=== PATIENT | male | born 1950 | race Caucasian/White ===

== ENCOUNTER 2020-04-02 01:56 | Emergency (ER) | payer MEDICARE, OTHER, SELFPAY ==
--- NOTE | ~2020-04-02 | CT_ITS ---
EXAMINATION: CT abdomen pelvis w con EXAM DATE: 04/02/2020 03:02 INDICATION: Right-sided upper abdominal pain. TECHNIQUE: Spiral CT of the abdomen and pelvis was performed following intravenous injection of 100 m L Omnipaque 350. Axial, coronal and sagittal images were reviewed. The dose-length product (DLP) fo r this examination was 637.68 mGy-cm. The exposure was tailored according to patient size (auto mA e xposure control), and iterative reconstruction (ASIR) was used as additional dose reduction technique . Comparison is made to prior examination from 08/15/2012. FINDINGS: Metallic pacer device with lead over the right side of the abdomen. This was present on lisa or study. The liver, spleen, adrenal glands and pancreas are unremarkable. There are gallstones wit hin an otherwise unremarkable gallbladder. No evidence of obstructive biliary disease. Portal and s plenic veins are patent. Kidneys enhance symmetrically. There is no hydronephrosis. The prostate is unremarkable. The bladder is unremarkable. There is no retroperitoneal or pelvic lymphadenopathy . There is mild to moderate scattered arteriosclerotic disease. Possible identification of an unremarkable appendix. No pericecal inflammation. The stomach and smal l bowel are unremarkable. There is expected amount of colonic stool. No free intraperitoneal gas. The heart is normal in size. There are no pericardial or pleural effusions. The lung bases are un remarkable. There are no osteoblastic or osteolytic lesions identified. IMPRESSION: 1. No acute intra-abdominal findings. 2. Cholelithiasis. Reviewed, dictated and finalized at location A.
[2020-04-02 01:59] VITALS: BP 135/75; PULSE 66; RESP 19; TEMP 36.1; O2SAT 100
[2020-04-02 02:19] LABS: Basophils Absolute Auto 0.1 K/mm3 (0.0-0.1); Basophils Percent Auto 0.6 % (0.2-1.2); Eosinophils Absolute Auto 0.1 K/mm3 (0-0.3); Eosinophils Percent Auto 0.9 % (0-4.4); Hematocrit 47.2 % (42.0-52.0); Hemoglobin 16.4 g/dL (14.0-18.0); Immature Granulocyte Absolute 0.03 K/mm3 (0.00-0.031); Immature Granulocyte Percent A 0.3 % (0-0.5); Lymphocytes Absolute Auto 3.79 K/mm3 (0.9-3.2); Lymphocytes Percent Auto 38.2 % (18.3-44.2); Mean Corpuscular HGB Conc 34.7 g/dl (32-36); Mean Corpuscular Hemoglobin 29.4 pg (26-34); Mean Corpuscular Volume 84.6 fl (80-100); Mean Platelet Volume 8.5 fl (7.4-10.4); Monocytes Absolute Auto 0.9 K/mm3 (0.1-0.6); Monocytes Percent Auto 9.3 % (2.6-8.5); Neutrophils Percent Auto 50.7 % (45.5-73.1); Platelet Count Result 265 k/mm3 (150-375); Red Blood Count 5.58 M/mm3 (4.6-6.20); White Blood Count 9.9 K/mm3 (4.5-10.0)
--- NOTE | 2020-04-02 02:23 | ED.ABDPAIN ---
HPI - Abdominal Pain General Chief Complaint: Abdominal Pain Stated Complaint: abd pain Time Seen by Provider: 04/02/20 02:07 Source: patient Mode of arrival: ambulatory Limitations: no limitations History of Present Illness HPI narrative: This patient is a 69 year old male who presents for evaluation of right upper abdominal pain starting 4 hours ago. He states it feels like the worse gas pain of my life . His pain is located right upper abdomen and it occasionally radiates around to his back and across to left abdomen. He tried taking pepto bismal without relief. He denies nausea , vomiting, diarrhea or urinary symptoms. Location: RUQ Severity: severe Pain scale (0-10): 9 Quality: fullness Radiation: R flank Exacerbating factors: nothing Relieving factors: nothing Related Data Home Medications Medication Instructions Recorded Confirmed aspirin 81 mg tablet,delayed 81 mg PO DAILY 08/10/19 12/21/19 release folic acid 1 mg tablet 1 mg PO DAILY 08/10/19 12/21/19 dulaglutide 0.75 mg/0.5 mL 0.75 mg SUB-Q WEEKLY 12/21/19 12/21/19 subcutaneous pen injector etanercept 50 mg/mL (1 mL) 50 mg SUB-Q WEEKLY 12/21/19 12/21/19 subcutaneous syringe Allergies Allergy/AdvReac Type Severity Reaction Status Date / Time atropine Allergy Severe DECREASED Verified 01/21/20 10:53 HR Review of Systems Review of Systems: All systems reviewed & are unremarkable except as noted in HPI and below Constitutional: Constitutional: Denies chills and Denies fever(s) Cardiovascular: Cardiovascular: Denies chest pain Respiratory: Respiratory: Denies cough and Denies dyspnea Gastrointestinal: Gastrointestinal: Reports abdominal pain, Denies constipation, Denies diarrhea and Denies vomiting Genitourinary: Genitourinary: Denies hematuria and Denies urinary frequency Musculoskeletal: Musculoskeletal: Reports back pain [facility] Past Medical History Medical History (Updated 04/02/20 @ 04:01 by Precious Ansari MD) Cardiac pacemaker Diabetes mellitus Essential (primary) hypertension Fusion of spine, cervical region History of cardiac monitoring Infective otitis externa of left ear Kidney stone Mixed hyperlipidemia Surgical History Surgical History H/O heart artery stent Hx of LASIK Hx of LASIK Hx of tonsillectomy Social History Social History Smoking status: Never smoker Alcohol intake: current Gender identity (if verbalized by the patient): Male Exam Narrative: Exam Narrative: Const: General: no acute distress and alert Orientation/consciousness: patient oriented x3 Eyes: EOM: EOMs intact bilaterally Chest: Chest palpation & inspection: normal inspection of the chest Resp: Effort & Inspection: normal respiratory effort and no retractions Auscultation: clear to auscultation bilaterally Cardio: Rate: regular rate Rhythm: regular rhythm Heart sounds: no murmurs GI: GI Palp: Yes Soft to palpation, Yes Tenderness to palpation present (GI) (RUQ, epigastric), No Guarding due to palpation present (GI) and No Rigid due to palpation Back/Spine/Pelvis: Back: no CVA tenderness Skin: General skin exam: normal color Rashes: no rashes Neuro: General: patient oriented x3 and moves all extremities Psych: Mental Status: mental status grossly normal Course Reevaluation(s) Reevaluation #1: PAtient is resting comfortably. I discussed CT shows gallstones. His pain is almost completely resolved. PAin is 1/10. I discussed discharge plan and treatment. Date: 04/02/20 Time: 03:55 Vital Signs Vital signs: Vital Signs Temperature 97 F L 04/02/20 01:59 Pulse Rate 66 04/02/20 01:59 Respiratory Rate 19 04/02/20 01:59 Blood Pressure 135/75 04/02/20 01:59 Pulse Oximetry 100 04/02/20 01:59 Temperature 97 F L 04/02/20 01:59 Pulse Rate 74 04/02/20 04:08 Respiratory R
[2020-04-02 02:27] LABS: Add Urine Microscopic? YES; Appearance Urine Clear (Clear); Bilirubin Urine Negative (Negative); Blood Urine Negative (Negative); Color Urine Colorless (Yellow); Glucose Urine UA 3+ mg/dL (Negative); Ketones Urine Negative (Negative); Leukocyte Esterase Ur Negative LEU/UL (Negative); Nitrate Urine Negative (Negative); Protein Urine Negative (Negative); Urobilinogen Urine Negative mg/dL (<2.0); WBC Urine 0-3 /hpf
[2020-04-02] MEDS: ONDANSETRON INJ 4 MG/2 ML VIAL IV PUSH (02:32)
[2020-04-02] MEDS: MORPHINE SULFATE 4 MG/ML INJ IV PUSH (02:34)
[2020-04-02 02:35] LABS: Alanine Aminotransferase 16 U/L (4-50); Albumin Level 4.3 g/dL (3.5-5.1); Alkaline Phosphatase 82 U/L (38-126); Anion Gap 14.4 mmol/L (7-16); Aspartate Amino Transferase 20 U/L (17-59); Bilirubin,Total 0.5 mg/dL (0.2-1.3); Blood Urea Nitrogen 15 mg/dL (9-20); Calcium 9.1 mg/dL (8.4-10.2); Carbon Dioxide 27 mmol/L (22-30); Chloride 97 mmol/L (98-107); Estimated CRCL calculation 78 ml/min; Estimated Glomerular Filt Rate > 60; Glucose 350 mg/dL (75-110); Lipase 199 U/L (23-300); Potassium 3.4 mmol/L (3.4-5.0); Sodium 135 mmol/L (137-145)
[2020-04-02 02:50] LABS: Specific Grav Ur 1.035 (1.001-1.035)
[2020-04-02] MEDS: SODIUM CHLORIDE 0.9% IV 1,000 ML 999 ML IV CONT (02:50)
[2020-04-02 04:00] VITALS: BP 139/69; PULSE 68; RESP 18; O2SAT 98
[2020-04-02 04:08] VITALS: BP 132/70; PULSE 74; RESP 18; O2SAT 98
== END 2020-04-02 04:09 | disposition home or self-care (01) ==
PROVIDERS: Emergency Provider General Practice; PCP Family Medicine
DX: K80.20 Calculus of gallbladder without cholecystitis without obstruction (principal); E11.65 Type 2 diabetes mellitus with hyperglycemia; Z79.82 Long term (current) use of aspirin; Z95.5 Presence of coronary angioplasty implant and graft; Z95.0 Presence of cardiac pacemaker; I10 Essential (primary) hypertension; E78.2 Mixed hyperlipidemia; Z87.442 Personal history of urinary calculi; Z79.84 Long term (current) use of oral hypoglycemic drugs
CPT/HCPCS: 36415; 74177; 80053; 81001; 83690; 85025; 96361; 96365; 96375; 99284; J0131; J2270; J2405; J7030; Q9967

== ENCOUNTER 2020-04-22 13:08 | Outpatient (CLI) | payer MEDICARE, OTHER, SELFPAY ==
[2020-04-22 13:40] LABS: Alanine Aminotransferase 18 U/L (4-50); Albumin Level 4.1 g/dL (3.5-5.1); Alkaline Phosphatase 73 U/L (38-126); Amylase 45 U/L (30-110); Aspartate Amino Transferase 19 U/L (17-59); Bilirubin,Total 0.4 mg/dL (0.2-1.3); Lipase 181 U/L (23-300)
== END 2020-04-22 13:09 | disposition home or self-care (01) ==
PROVIDERS: PCP Family Medicine; Visit Provider Surgery
DX: K80.20 Calculus of gallbladder without cholecystitis without obstruction (principal)
CPT/HCPCS: 36415; 80076; 82150; 83690; 86850; 86900; 86901

== ENCOUNTER 2020-04-29 00:27 | Outpatient (CLI) | payer MEDICARE, OTHER, SELFPAY ==
[2020-04-29 19:28] LABS: SARS-CoV-2 RNA PCR Negative
== END 2020-04-29 00:28 | disposition home or self-care (01) ==
LOC: ANHCOVIDDT 00:27
PROVIDERS: PCP Family Medicine; Visit Provider Surgery
DX: Z01.812 Encounter for preprocedural laboratory examination (principal); Z20.828 Contact with and (suspected) exposure to other viral communicable diseases
CPT/HCPCS: 87635; C9803; U0003

== ENCOUNTER 2020-05-02 00:53 | Day surgery (SDC) | payer MEDICARE, OTHER, SELFPAY ==
[2020-05-02] VITALS (14 sets, daily range): BP systolic 133–158; BP diastolic 51–72; PULSE 77–95; RESP 10–18; TEMP 30.7–36; O2SAT 97–99
--- NOTE | 2020-05-02 09:11 | WPDANESEPP ---
Anes - Eval Pre Procedure Procedure: Operation Date: 05/02/20 13:30 Proposed Procedures p Laparoscopic Cholecystectomy, Possible Open - Danilo Nguyen DO s Umbilical Hernia Repair - Danilo Nguyen DO Date/Time: 05/02/20 09:11 Pre Op Diagnosis: Symptomatic Cholelithiasis, Umbilical Hernia Patient Data Age: 69 Gender: M Height: 5 ft 7 in Weight: 87 kg Allergies Allergy/AdvReac Type Severity Reaction Status Date / Time atropine Allergy Severe DECREASED Verified 04/20/20 13:49 HR Home Medications Medication Instructions Recorded Confirmed Type aspirin 81 mg tablet,delayed 81 mg PO QAM 08/10/19 04/20/20 History release metoprolol succinate 25 mg 25 mg PO DAILY #90 tablet 08/10/19 04/20/20 Rx tablet,extended release 24 hr dulaglutide 0.75 mg/0.5 mL 0.75 mg SUB-Q WEEKLY 12/21/19 04/20/20 History subcutaneous pen injector etanercept 50 mg/mL (1 mL) 50 mg SUB-Q WEEKLY 12/21/19 04/20/20 History subcutaneous syringe finasteride 5 mg tablet 5 mg PO DAILY #90 tablet 12/21/19 04/20/20 Rx glimepiride 4 mg tablet 4 mg PO BID #180 tablet 12/21/19 04/20/20 Rx omeprazole 40 mg capsule,delayed 40 mg PO DAILY #90 cap 12/21/19 04/20/20 Rx release simvastatin 20 mg tablet 20 mg PO DAILY #90 tablet 12/21/19 04/20/20 Rx tramadol 50 mg tablet 50 mg PO Q6H PRN #28 tablet 01/21/20 04/20/20 Rx empagliflozin 25 mg tablet 25 mg PO DAILY #90 tablet 02/05/20 04/20/20 Rx amlodipine [Norvasc] 2.5 mg PO QAM 04/20/20 04/20/20 History levothyroxine [Synthroid] 100 mcg PO QAM 04/20/20 04/20/20 History potassium chloride 10 meq PO EVERY OTHER DAY 04/20/20 04/20/20 History sitagliptin [Januvia] 100 mg PO QAM 04/20/20 04/20/20 History telmisartan-hydrochlorothiazid 1 tablet PO QAM 04/20/20 04/20/20 History Patient hx anesthesia problems: none Family hx anesthesia problems: none PMFSH Past Medical History Medical History CAD (coronary artery disease) Cardiac pacemaker Cervical radiculopathy Diabetes mellitus Esophageal reflux Essential (primary) hypertension Fusion of spine, cervical region History of cardiac monitoring Hypothyroidism, unspecified Infective otitis externa of left ear Kidney stone Male erectile dysfunction, unspecified Metabolic syndrome Mixed hyperlipidemia Primary generalized (osteo)arthritis Psoriatic arthropathy Symptomatic cholelithiasis Type 2 diabetes mellitus with hyperglycemia Umbilical hernia without mention of obstruction or gangrene Surgical History Surgical History H/O heart artery stent Hx of LASIK Hx of LASIK Hx of tonsillectomy Family History Family History Sibling Acute myocardial infarction Cerebrovascular accident Depression Carcinoma of colon Grandparent Diabetes mellitus Family history of cardiovascular disease Carcinoma of colon, Onset Age: 85 Father Hypertension Family history of cardiovascular disease Acute myocardial infarction, Onset Age: 72 Social History Social History Smoking packs per day: 1.5 Smoking cigarettes per day: 30.0 Years smoked: 11 Smoking pack-years: 16.50 Smoking status: Never smoker Tobacco type: cigarettes Smoking end date: 04/28/83 Alcohol intake: current Alcohol use details: SOCIAL IN PAST Substance use: never Living arrangements: with family Gender identity (if verbalized by the patient): Male Spiritual care concerns: No Exam Day of Procedure 05/02/20 09:11 Patient weight: overweight Neurological: alert and oriented
[2020-05-02] MEDS: LACTATED RINGERS 1,000 ML 30 ML IV CONT ×3 (11:40→13:50)
--- NOTE | 2020-05-02 11:42 | P.PNAN_ITS ---
Anes - Eval Final PreProcedure Day of Procedure 05/02/20 11:42 Patient weight: obese Heart: regular rate and rhythm Lungs: clear to auscultation Airway: Mallampati scale class II Neurological: alert and oriented Last oral intake: >/= 8 hours ASA classification: III Emergent: no Anesthetic plan: proceed Anesthesia type and monitoring: general ETT and standard monitoring Informed Consent: The patient's anesthetic plan and its attendant risks and be nefits were discussed with the patient/family/POA. Questions were solicited and answers provided to the satisfaction of the patient/family/POA.
[2020-05-02] MEDS: ACETAMINOPHEN 500 MG TABLET 1000 MG PO (11:44)
[2020-05-02] MEDS: KETOROLAC 15 MG/ML VIAL (*BKC) IV PUSH (11:44)
--- NOTE | 2020-05-02 11:56 | WPDHPUPDATE1 ---
History and Physical Update Update Date/Time: 05/02/20 11:56 History and Physical has been reviewed, including an updated exam of the patient. There are NO changes in the patient's condition. Risks, benefits, and alternatives have been discussed and questions answered. Patient agrees to proceed with procedure.
[2020-05-02] MEDS: ceFAZolin 2 GM/D5W 50 ML 2 GM/50 ML BAG IVPB (12:02)
[2020-05-02 12:03] LABS: Glucose Point of Care 228 (65-105)
[2020-05-02] MEDS: BUPIVACAINE/EPINEPHRINE 0.5% 30 ML VIAL INFILTRATE (12:26)
--- NOTE | 2020-05-02 13:10 | PM.PROC ---
Procedure Note - Detailed Date of procedure: 05/02/20 Pre-op diagnosis: Symptomatic Cholelithiasis, Umbilical Hernia Post-op diagnosis: same Procedure performed: Laparoscopic Cholecystectomy Umbilical hernia repair Description of procedure: Procedure as well as risks, benefits, and alternatives were discussed with patient. Written consent was obtained and placed in chart prior to procedure. The patient was brought back to surgical suite. Patient was placed in supine position on operating table. Time-out was done to confirm patient and procedure. Patient was then intubated by the anesthesia department. Abdomen was prepped and draped in sterile fashion using chlorhexidine prep. 0.5% bupivacaine with epinephrine was infiltrated at each site of incision. A 2 cm curvilinear incision was made just superior to the umbilicus using a 15 blade scalpel. Electrocautery was used for hemostasis and for dissection around the umbilical hernia. The umbilical stalk was carefully lifted off of the hernia sac using electrocautery. The hernia sac was excised and discarded using electrocautery. The peritoneum was entered through the hernia defect. An 11 millimeter trocar was inserted and cabon dioxied insuflation was used to create a pneumoperitoneum. The camera was inserted and the abdomen was inspected. The patient was placed in reverse Trendelenberg position and rotated slightly to the left. A 5 millimeter incision was made in the epigastric region, and a 5 millimeter trocar was inserted under direct visualization. Two 5 millimeter incisions were made in the right upper quadrant, and two 5 millimeter trocars were inserted under direct visualization. The gallbladder was identified and grasped at the fundus and retracted superiorly. It was then grasped at the infundibulum retracted laterally. Careful dissection around the neck of the gallbladder was performed using blunt dissection with a [place] grasper and hook electrocautery. The cystic duct was identified, and a window was created behind it. The cystic artery was also identified and a window was created behind it. The critical view of safety was identified, visualizing the cystic duct running directly into the neck of the gallbladder, and the cystic artery running directly into the wall of the gallbladder. A 5 millimeter clip gallery host was then used to place 2 clips proximally and 1 clip distally on both the cystic duct and cystic artery. They were then both transected using endoscopic scissors. Once safely away from the rambo hepatitis, the gallbladder was dissected free from the liver bed using hook electrocautery. Hemostasis was achieved along the way. The gallbladder was removed completely and then removed through the Umbilical port. The liver bed was then inspected. Hemostasis appeared adequate, and our clips appeared secure. The area was gently irrigated with sterile saline. No other abnormalities were seen. The patient was flattened out in bed, and 1 final inspection was made around the abdominal cavity. The ports were then removed under direct visualization, the camera was removed, and the pneumoperitoneum was released. The umbilical hernia was repaired using 0 Ethibond [id number] sutures. Total of 3 sutures were placed transversely. The hernia repair was inspected and appeared secure. The umbilical stalk was then reapproximated to the fascia using 3 0 Vicryl simple interrupted suture. The deep dermis was approximated using 3 0 Vicryl simple interrupted suture. The skin of the incisions was approximated using 4-0 Monocryl subcuticular sutures. Exofin glue was applied on top. The patient was then awakened from anesthesia, extubated, and transferred to recovery. Anesthesia: GETA and local (0.5% bupivicaine with epinephrine) Surgeon: Danilo Nguyen DO Estimated blood loss (mL): 10 Complications: No immediate complications Condition: stable Disposition: same day Findings: Ced is a
[2020-05-02 13:20] LABS: Glucose Point of Care 260 (65-105)
--- NOTE | 2020-05-02 13:24 | SUR.PHASEI ---
[id number] DR HUDSON NOTIFIED OF [id number] WILL HAVE PT TREAT WHEN HOME
[2020-05-02] MEDS: ONDANSETRON INJ 4 MG/2 ML VIAL IV PUSH (13:40)
[2020-05-02] MEDS: diphenhydrAMINE HCl INJ 50 MG/ML VIAL 25 MG IV PUSH (13:50)
[2020-05-02] MEDS: SCOPOLAMINE 1.5 MG PATCH TRANSDERM (14:30)
== END 2020-05-02 17:30 | disposition home or self-care (01) ==
PROVIDERS: PCP Family Medicine; Visit Provider Surgery
PROC: 0FT44ZZ Resection of Gallbladder, Percutaneous Endoscopic Approach (ICD-10-PCS; CPT 47562; principal; 2020-05-02 13:30)
PROC: (CPT 47562; 2020-05-02 13:30)
DX: K80.10 Calculus of gallbladder with chronic cholecystitis without obstruction (principal); K42.9 Umbilical hernia without obstruction or gangrene; E11.9 Type 2 diabetes mellitus without complications; I10 Essential (primary) hypertension; Z95.0 Presence of cardiac pacemaker; E78.2 Mixed hyperlipidemia
CPT/HCPCS: 47562; 49585; 88304; A9270; J0330; J0690; J1100; J1170; J1200; J1885; J2250; J2405; J2704; J3010; J7030; J7120

== ENCOUNTER 2020-05-10 21:51 | Emergency (ER) | payer MEDICARE, OTHER, SELFPAY ==
[2020-05-10 22:09] VITALS: BP 120/73; PULSE 96; RESP 16; TEMP 36.2; O2SAT 98
--- NOTE | 2020-05-10 22:47 | ED.GENADULT ---
HPI - General Adult General Chief complaint: Recheck/Abnormal Lab/Rx Stated complaint: post op, abd leaking Time Seen by Provider: 05/10/20 22:41 History of Present Illness HPI narrative: 69 yo male presents with pain and swelling around the umbilicus. He had cholecystectomy and umbilical hernia repair 8 days ago. He has had pain around the umbilicus since that time. Over the past few days it has become redder and more swollen. Today he noted purulent drainage from the wound. No fever or other systemic symptom. Related Data Home Medications Medication Instructions Recorded Confirmed aspirin 81 mg tablet,delayed 81 mg PO QAM 08/10/19 05/02/20 release etanercept 50 mg/mL (1 mL) 50 mg SUB-Q WEEKLY 12/21/19 05/02/20 subcutaneous syringe Januvia 100 mg PO QAM 04/20/20 05/02/20 amlodipine [Norvasc] 2.5 mg PO QAM 04/20/20 05/02/20 levothyroxine [Synthroid] 100 mcg PO QAM 04/20/20 05/02/20 potassium chloride 10 meq PO EVERY OTHER DAY 04/20/20 05/02/20 telmisartan-hydrochlorothiazid 1 tablet PO QAM 04/20/20 05/02/20 Allergies Allergy/AdvReac Type Severity Reaction Status Date / Time atropine Allergy Severe DECREASED Verified 05/10/20 22:12 HR Review of Systems Review of Systems: All systems reviewed & are unremarkable except as noted in HPI and below Constitutional: Constitutional: Denies chills and Denies fever(s) Cardiovascular: Cardiovascular: Denies chest pain Respiratory: Respiratory: Denies dyspnea Gastrointestinal: Gastrointestinal: Denies abdominal pain, Denies nausea and Denies vomiting Neurologic: Denies dizziness and Denies weakness [facility] Past Medical History Medical History CAD (coronary artery disease) Cardiac pacemaker Cervical radiculopathy Diabetes mellitus Esophageal reflux Essential (primary) hypertension Fusion of spine, cervical region History of cardiac monitoring Hypothyroidism, unspecified Infective otitis externa of left ear Kidney stone Male erectile dysfunction, unspecified Metabolic syndrome Mixed hyperlipidemia Primary generalized (osteo)arthritis Psoriatic arthropathy Symptomatic cholelithiasis Type 2 diabetes mellitus with hyperglycemia Umbilical hernia without mention of obstruction or gangrene Surgical History Surgical History H/O heart artery stent Hx of LASIK Hx of LASIK Hx of tonsillectomy Family History Family History Sibling Acute myocardial infarction Cerebrovascular accident Depression Carcinoma of colon Grandparent Diabetes mellitus Family history of cardiovascular disease Carcinoma of colon, Onset Age: 85 Father Hypertension Family history of cardiovascular disease Acute myocardial infarction, Onset Age: 72 Social History Social History Smoking packs per day: 1.5 Smoking cigarettes per day: 30.0 Years smoked: 11 Smoking pack-years: 16.50 Smoking status: Never smoker Tobacco type: cigarettes Smoking end date: 04/28/83 Alcohol intake: current Substance use: never Gender identity (if verbalized by the patient): Male Spiritual care concerns: No Exam Const: General: healthy appearing, no acute distress and alert Orientation/consciousness: patient oriented x3 HENMT: Head: normal to inspection Resp: Effort & Inspection: normal respiratory effort Auscultation: clear to auscultation bilaterally, no rales, no rhonchi and no wheezes Cardio: Jugular venous distension: no JVD Rate: regular rate Rhythm: regular rhythm GI: Inspection: non-distended GI Palp: Yes Soft to palpation and Yes Tenderness to palpation present (GI) (periumbilical) Skin: Other: erythema and induration around the umbilical incision. purulent drainage from wound. Neuro: General: patient oriented x3 and moves all ex
== END 2020-05-11 00:44 | disposition home or self-care (01) ==
PROVIDERS: Emergency Provider Emergency Medicine; PCP Family Medicine
DX: L02.211 Cutaneous abscess of abdominal wall (principal); L76.82 Other postprocedural complications of skin and subcutaneous tissue; Z87.891 Personal history of nicotine dependence; I25.10 Atherosclerotic heart disease of native coronary artery without angina pectoris; E11.9 Type 2 diabetes mellitus without complications; K21.9 Gastro-esophageal reflux disease without esophagitis; I10 Essential (primary) hypertension; E03.9 Hypothyroidism, unspecified; E78.5 Hyperlipidemia, unspecified; M19.90 Unspecified osteoarthritis, unspecified site
CPT/HCPCS: 10160; 87070; 87077; 87186; 87205; 99283; A9270

== ENCOUNTER 2021-02-15 12:54 | Outpatient (CLI) | payer MEDICARE, OTHER, SELFPAY ==
--- NOTE | ~2021-02-15 | XR_ITS ---
XR shoulder RT min 2V DATE: 02/15/2021 13:27 INDICATION: Right shoulder pain. No injury. TECHNIQUE: 4 views COMPARISON: None FINDINGS: There is joint space and spurring at the acromioclavicular joint consistent with degenerati ve change. There is joint space narrowing and spurring at the right glenohumeral joint as well, consistent with osteoarthritis. Diffuse osteopenia. No fracture, dislocation or bone destruction of the right shoulder. No abnormal right shoulder soft t issue calcification. IMPRESSION: Osteoarthritis at the glenohumeral joint Degenerative change of the right acromioclavicular joint Diffuse osteopenia Reviewed, dictated and finalized at location A.
== END 2021-02-15 12:55 | disposition home or self-care (01) ==
LOC: ANHIMG 13:01
PROVIDERS: PCP Family Medicine
DX: M25.511 Pain in right shoulder (principal); M19.011 Primary osteoarthritis, right shoulder; M85.811 Other specified disorders of bone density and structure, right shoulder
CPT/HCPCS: 73030

== ENCOUNTER → 2022-04-18 15:46 | Outpatient (CLI) | payer MEDICARE, OTHER, SELFPAY ==
--- NOTE | ~2022-04-18 | XR_ITS ---
XR shoulder LT min 2V 04/18/2022 16:01 Indication: Left shoulder pain Procedure: 4 views left shoulder Comparison: No prior studies for comparison. Findings: There is severe glenohumeral joint osteoarthritis. Small loose bodies superior to the joint space. No acute fracture or traumatic malalignment. Surrounding osseous structures and soft tissues are unremarkable. Impression: 1: Severe left glenohumeral joint osteoarthritis. Reviewed, dictated and finalized at location B. Impression: 1: Severe left glenohumeral joint osteoarthritis.
== END ==
PROVIDERS: PCP Family Medicine; Visit Provider Family Medicine
DX: M25.512 Pain in left shoulder (principal); M19.012 Primary osteoarthritis, left shoulder
CPT/HCPCS: 73030

== ENCOUNTER 2022-08-30 01:05 | Day surgery (SDC) | payer MEDICARE, OTHER, SELFPAY ==
[2022-08-17 12:39] VITALS: BMI 29.9
[2022-08-30 08:15] VITALS: BP 116/69; PULSE 94; RESP 18; TEMP 36.1; O2SAT 100; BMI 29.9
[2022-08-30] MEDS: LACTATED RINGERS 1,000 ML 150 ML IV CONT (08:28)
[2022-08-30 08:29] LABS: Glucose Point of Care 135 mg/dl (65-105)
--- NOTE | 2022-08-30 08:29 | WPDANESEPPF ---
Anes - Initial Pre Proc Eval Procedure: Operation Date: 08/30/22 09:30 Proposed Procedures p Screening Colonoscopy - Vito Funes MD Date/Time: 08/30/22 08:29 Surgeon: Vito Funes MD Pre Op Diagnosis: Hx of colon polyps Patient Data Age: 72 Gender: M Height: 1.7 m Weight: 86.6 kg Last Vital Signs Temp 97.0 F L 08/30/22 08:15 Pulse 94 08/30/22 08:15 Resp 18 08/30/22 08:15 BP 116/69 08/30/22 08:15 Pulse Ox 100 08/30/22 08:15 O2 Del Method Room Air 08/30/22 08:15 Allergies Allergy/AdvReac Type Severity Reaction Status Date / Time atropine Allergy Severe DECREASED Verified 08/30/22 08:13 HR Home Medications Medication Instructions Recorded Confirmed Type aspirin 81 mg tablet,delayed 81 mg PO QAM 08/10/19 08/17/22 History release (Adult Low Dose Aspirin) etanercept 50 mg/mL (1 mL) 50 mg subcut WEEKLY #13 mL 03/28/21 08/17/22 Rx subcutaneous syringe (Enbrel) empagliflozin 25 mg tablet 25 mg PO DAILY #90 tabs 09/14/21 08/17/22 Rx (Jardiance) amlodipine 2.5 mg tablet (Norvasc) 2.5 mg PO QAM #90 tabs 12/12/21 08/17/22 Rx finasteride 5 mg tablet 5 mg PO DAILY #90 tabs 12/12/21 08/17/22 Rx glimepiride 4 mg tablet (Amaryl) 4 mg PO BID #180 tabs 12/12/21 08/17/22 Rx levothyroxine 100 mcg tablet 100 mcg PO QAM #90 tabs 12/12/21 08/17/22 Rx (Synthroid) omeprazole 40 mg capsule,delayed 40 mg PO DAILY #90 caps 12/12/21 08/17/22 Rx release potassium chloride 10 mEq 10 meq PO EVERY OTHER DAY #90 caps 12/12/21 08/17/22 Rx capsule,extended release telmisartan 40 1 tablet PO QAM #90 tabs 12/12/21 08/17/22 Rx mg-hydrochlorothiazide 12.5 mg tablet dulaglutide 1.5 mg/0.5 mL See Rx Instructions .Route 12/13/21 08/17/22 Rx subcutaneous pen injector .COMPLEX #2 mL (Trulicity) ascorbate calcium (vitamin C) 500 500 mg PO DAILY 01/30/22 08/17/22 History mg tablet metformin 500 mg tablet 500 mg PO DAILY 01/30/22 08/17/22 History multivitamin 1 tablet PO DAILY 01/30/22 08/17/22 History insulin degludec 100 unit/mL 24 unit subcut QHS 04/18/22 08/17/22 History subcutaneous solution (Tresiba U-100 Insulin) metoprolol succinate 25 mg 25 mg PO DAILY #90 tabs 05/22/22 08/17/22 Rx tablet,extended release 24 hr (Toprol XL) sodium,potassium,mag sulfates 17.5 See Rx Instructions PO .COMPLEX 07/17/22 Rx gram-3.13 gram-1.6 gram oral soln #354 mL (Suprep Bowel Prep Kit) atorvastatin 40 mg tablet 40 mg PO DAILY 08/17/22 08/17/22 History cholecalciferol (vitamin D3) 25 25 mcg PO DAILY 08/17/22 08/17/22 History mcg (1,000 unit) tablet (Vitamin D3) vitamin E 400 unit tablet 400 unit PO DAILY 08/17/22 08/17/22 History Patient hx anesthesia problems: none Family hx anesthesia problems: none Results Review: All pre-operative results and documents have been reviewed as part of the pre-operative evaluation. [facility] Past Medical History Medical History Cardiac pacemaker Cervical radiculopathy Diabetes mellitus Esophageal reflux Fusion of spine, cervical region History of cardiac monitoring Hypothyroidism, unspecified Infective otitis externa of left ear Kidney stone Male erectile dysfunction, unspecified Metabolic syndrome Mixed hyperlipidemia Primary generalized (osteo)arthritis Psoriatic arthropathy Symptomatic cholelithiasis Type 2 diabetes mellitus with hyperglycemia Umbilical hernia without mention of obstruction or gangrene Surgical History Surgical History H/O heart artery stent History of laparoscopic cholecystectomy 05/10/20 Hx of LASIK Hx of LASIK Hx of tonsillectomy Family History Family History Sibling Acute myocardial infarction Cerebrovascular accident Depression Carcinoma of colon Grandparent Diabetes mellitus Family history of cardiova
--- NOTE | 2022-08-30 08:52 | PM.HPGS ---
History of Present Illness History of Present Illness Consent: Risks, benefits, and alternatives have been discussed and questions answered. Patient agrees to proceed with procedure. Chief complaint: Hx of colon polyps Narrative: Ced Mccracken is a 72 year old male Presents for screening colonoscopy. Patient reports his current weight appetite and bowel movements are normal. Patient denies abdominal pain. He has had no bleeding. Family history noncontributory. Patient has previous colonoscopy 2017 showed an adenomatous colon polyp. Family history is significant his grandmother had colon cancer. Patient presents today for surveillance colonoscopy. Review of Systems Review of Systems: Review of systems is noncontributory. [facility] Past Medical History Medical History (Updated 08/30/22 @ 08:54 by Vito Funes MD) Cardiac pacemaker Cervical radiculopathy Diabetes mellitus Esophageal reflux Fusion of spine, cervical region History of cardiac monitoring Hypothyroidism, unspecified Infective otitis externa of left ear Kidney stone Male erectile dysfunction, unspecified Metabolic syndrome Mixed hyperlipidemia Primary generalized (osteo)arthritis Psoriatic arthropathy Symptomatic cholelithiasis Type 2 diabetes mellitus with hyperglycemia Umbilical hernia without mention of obstruction or gangrene Surgical History Surgical History H/O heart artery stent History of laparoscopic cholecystectomy 05/10/20 Hx of LASIK Hx of LASIK Hx of tonsillectomy Family History Family History Sibling Acute myocardial infarction Cerebrovascular accident Depression Carcinoma of colon Grandparent Diabetes mellitus Family history of cardiovascular disease Carcinoma of colon, Onset Age: 85 Father Hypertension Family history of cardiovascular disease Acute myocardial infarction, Onset Age: 72 Social History Social History Smoking packs per day: 1.5 Smoking cigarettes per day: 30.0 Years smoked: 11 Smoking pack-years: 16.50 Smoking status: Former smoker Tobacco type: cigarettes Second hand tobacco smoke exposure: Yes Smoking end date: 04/28/83 Alcohol intake: current Alcohol use details: Rarely Substance use: never Substance use type: does not use Living arrangements: with family Gender identity (if verbalized by the patient): Male Spiritual care concerns: No Meds Home Medications and Allergies Home Medications Medication Instructions Recorded Confirmed Type aspirin 81 mg tablet,delayed 81 mg PO QAM 08/10/19 08/17/22 History release (Adult Low Dose Aspirin) etanercept 50 mg/mL (1 mL) 50 mg subcut WEEKLY #13 mL 03/28/21 08/17/22 Rx subcutaneous syringe (Enbrel) empagliflozin 25 mg tablet 25 mg PO DAILY #90 tabs 09/14/21 08/17/22 Rx (Jardiance) amlodipine 2.5 mg tablet (Norvasc) 2.5 mg PO QAM #90 tabs 12/12/21 08/17/22 Rx finasteride 5 mg tablet 5 mg PO DAILY #90 tabs 12/12/21 08/17/22 Rx glimepiride 4 mg tablet (Amaryl) 4 mg PO BID #180 tabs 12/12/21 08/17/22 Rx levothyroxine 100 mcg tablet 100 mcg PO QAM #90 tabs 12/12/21 08/17/22 Rx (Synthroid) omeprazole 40 mg capsule,delayed 40 mg PO DAILY #90 caps 12/12/21 08/17/22 Rx release potassium chloride 10 mEq 10 meq PO EVERY OTHER DAY #90 caps 12/12/21 08/17/22 Rx capsule,extended release telmisartan 40 1 tablet PO QAM #90 tabs 12/12/21 08/17/22 Rx mg-hydrochlorothiazide 12.5 mg tablet dulaglutide 1.5 mg/0.5 mL See Rx Instructions .Route 12/13/21 08/17/22 Rx subcutaneous pen injector .COMPLEX #2 mL (Trulicity) ascorbate calcium (vitamin C) 500 500 mg PO DAILY 01/30/22 08/17/22 History mg tablet metformin 500 mg tablet 500 mg PO DAILY 01/30/22 08/17/22 History multivitamin 1 tablet PO DAILY 01/30/22 08/17/22 History insu
[2022-08-30 09:37] VITALS: BP 116/72; PULSE 81; RESP 15; O2SAT 97
[2022-08-30 09:47] VITALS: BP 117/72; PULSE 74; RESP 25; O2SAT 98
[2022-08-30 09:49] LABS: Glucose Point of Care 118 mg/dl (65-105)
[2022-08-30 09:57] VITALS: BP 136/77; PULSE 75; RESP 20; O2SAT 98
== END 2022-08-30 10:19 | disposition home or self-care (01) ==
PROVIDERS: PCP Family Medicine; Visit Provider Internal Medicine Gastroenterology
PROC: 0DJD8ZZ Inspection of Lower Intestinal Tract, Via Natural or Artificial Opening Endoscopic (ICD-10-PCS; CPT 45378; principal; 2022-08-30 09:30)
DX: Z12.11 Encounter for screening for malignant neoplasm of colon (principal); D12.5 Benign neoplasm of sigmoid colon; K63.5 Polyp of colon; K21.9 Gastro-esophageal reflux disease without esophagitis; E03.9 Hypothyroidism, unspecified; E11.9 Type 2 diabetes mellitus without complications; E78.2 Mixed hyperlipidemia; Z98.1 Arthrodesis status; L40.50 Arthropathic psoriasis, unspecified; Z95.5 Presence of coronary angioplasty implant and graft; Z79.82 Long term (current) use of aspirin; Z79.84 Long term (current) use of oral hypoglycemic drugs; Z79.899 Other long term (current) drug therapy; Z79.4 Long term (current) use of insulin; Z95.0 Presence of cardiac pacemaker; Z87.891 Personal history of nicotine dependence
CPT/HCPCS: 45385; 45381; 82948; 88305; J2704; J7120

== ENCOUNTER 2022-09-06 15:00 | Outpatient (CLI) | payer MEDICARE, OTHER, SELFPAY ==
--- NOTE | ~2022-09-06 | XR_ITS ---
XR knee LT min 4V DATE: 09/06/2022 15:40 INDICATION: Left knee pain TECHNIQUE: 4 views COMPARISON: None FINDINGS: There is mild particular spurring of the patella, minimal periarticular spurring of the lat eral tibial plateau, consistent with mild osteoarthritis. Knee joint spaces are relatively preserved. No fracture or dislocation or joint effusion. No radiopaque intra-articular loose body or chondrocalc inosis. No periosteal reaction or bone destruction. Femoral, popliteal and trifurcation artery calcifications. IMPRESSION: Mild osteoarthritis Reviewed, dictated and finalized at location A. [employer] INSURANCE ADVISOR IMPRESSION: Mild osteoarthritis
--- NOTE | ~2022-09-06 | XR_ITS ---
XR knee RT min 4V DATE: 09/06/2022 15:40 INDICATION: Right knee pain TECHNIQUE: 4 views COMPARISON: None FINDINGS: There is minimal loss of height of the medial compartment joint space. There is minimal per iarticular spurring of the patella, mild hypertrophic change of the lateral tibial spine. There is enthesopathy at the patellar tendon insertions of the patella and anterior tibial tuberosity . No fracture or dislocation or joint effusion. No periosteal reaction or bone destruction. Femoral, popliteal and trifurcation artery calcification. IMPRESSION: Mild osteoarthritis Reviewed, dictated and finalized at location A. CTOR CLIENT IMPRESSION: Mild osteoarthritis
== END 2022-09-06 15:01 | disposition home or self-care (01) ==
PROVIDERS: PCP Family Medicine; Visit Provider Family Medicine
DX: G89.29 Other chronic pain (principal); M25.569 Pain in unspecified knee; M17.0 Bilateral primary osteoarthritis of knee
CPT/HCPCS: 73564

== ENCOUNTER 2022-10-05 09:30 | Outpatient (CLI) | payer MEDICARE, OTHER, SELFPAY ==
[2022-10-05 11:31] LABS: Anion Gap 8 mmol/L (8-16); Blood Urea Nitrogen 12 mg/dL (9-20); Calcium 9.1 mg/dL (8.4-10.2); Carbon Dioxide 31 mmol/L (22-30); Chloride 95 mmol/L (98-107); Estimated Glomerular Filt Rate > 60; Glucose 367 mg/dL (65-110); Potassium 3.8 mmol/L (3.4-5.0); Sodium 134 mmol/L (137-145)
== END 2022-10-05 09:31 | disposition home or self-care (01) ==
LOC: ANHSURGERY 09:35
PROVIDERS: Anesthesiology; PCP Family Medicine; Visit Provider Surgery
DX: Z01.818 Encounter for other preprocedural examination (principal); K63.5 Polyp of colon; E11.65 Type 2 diabetes mellitus with hyperglycemia
CPT/HCPCS: 36415; 80048; 86850; 86900; 86901

== ENCOUNTER 2022-10-16 15:21 | Inpatient (IN) | payer MEDICARE, OTHER, SELFPAY ==
[2022-10-05 09:56] VITALS: BP 144/59; PULSE 73; RESP 16; TEMP 36.6; O2SAT 97; BMI 30.5
--- NOTE | 2022-10-05 10:13 | PC.NURSE ---
Addendum entered by Molly Larson RN 10/05/22 10:39: PATIENT HAS ORAL ANTIBIOTICS DAY PRIOR TO SURGERY, RELAYS UNDERSTANDING. Original Note: Report to the Outpatient Waiting Room, entrance under the green pavilion located off [address], at time _7:30AM on date __10/16/22 . Planned Procedure Time: __9:30AM . Time changes happen often and if your time is changed the preop area will call you the afternoon before. - You and your visitor will be asked to self-screen and do not enter if you have any COVID symptoms. - Only one visitor is requested with a max of two and NO children visitors are allowed at this time. - The patient visitor may be requested to leave or wait in car when not with patient due to distancing restrictions. - A mask is optional within the hospital at this time. Patients may have clear liquids (water, carbonated beverages, clear teas, apple juice) until 3 hours prior to surgery with a maximum of 20 ounces. - No food /CLEAR LIQUIDS- DAY BEFORE SURGERY Take the following medications with a SIP of water the morning of surgery: ___AMLODIPINE, LEVOTHYROXINE, METOPROLOL DO NOT STOP ANY OF YOUR OTHER PRESCRIPTION MEDICATIONS PRIOR TO SURGERY ?EXCEPT THE FOLLOWING Medications to discontinue per physician ____HOLD ALL VITAMINS/SUPPLEMENTS 3 DAYS PRE-OP Date to take last dose___10/12/22 Please no make-up, nail welsh, hairspray, perfume, deodorant, or body powder the day of surgery. No jewelry (including any body piercings) or valuables the day of surgery, leave them at home. Please take a shower or bath the night before, or the morning of, surgery with an antibacterial soap. Wear comfortable, loose fitting clothing. Children are encouraged to wear pajamas. - Jewelry must be removed prior to entering the operating room. Rings and piercings that are not removed may be cut off. - The hospital will not accept responsibility for valuables. - Please leave all valuables, including medications, at home the day of surgery. If you are going home after surgery, a licensed diesel truck driver must drive you home. - NO public transportation without another adult if you receive anesthesia. - We recommend that an adult stay with you for 24 hours following discharge. - We also recommend that you do not drive, make important decision, drink alcoholic beverages, or take any drugs that were not prescribed by your health care provider for at least 24 hours after your discharge time. Follow any additional instructions given to you from your surgeon. ENSURE BUNDLE. HIBICLENS SHOWER DAY BEFORE AND MORNING OF SURGERY If you or anyone in your household have experienced Covid symptoms in the past week, please notify your surgeon or the nurse liaison at the phone number below for possible testing. Telephone instructions given to ___PATIENT and asked if any additional questions and then verbalized understanding. Patient advised to call surgeon office or pre surgery nurse liaison [phone] if any additional questions.
--- NOTE | 2022-10-15 15:28 | WPDANESEPPF ---
Anes - Initial Pre Proc Eval Procedure: Operation Date: 10/16/22 09:30 Proposed Procedures p Laparoscopic Sigmoid Colectomy, Davinci Assisted - Danilo Nguyen DO Date/Time: 10/15/22 15:28 Surgeon: Danilo Nguyen DO Pre Op Diagnosis: Sigmoid polyp Patient Data Age: 72 Gender: M Height: 1.7 m Weight: 88.4 kg Last Vital Signs Temp 36.6 C 10/05/22 09:56 Pulse 73 10/05/22 09:56 Resp 16 10/05/22 09:56 BP 144/59 H 10/05/22 09:56 Pulse Ox 97 10/05/22 09:56 O2 Del Method Room Air 10/05/22 09:56 Allergies Allergy/AdvReac Type Severity Reaction Status Date / Time atropine Allergy Severe DECREASED Verified 10/16/22 15:43 HR Home Medications Medication Instructions Recorded Confirmed Type aspirin 81 mg tablet,delayed 81 mg PO QAM 08/10/19 10/16/22 History release (Adult Low Dose Aspirin) etanercept 50 mg/mL (1 mL) 50 mg subcut WEEKLY #13 mL 03/28/21 10/16/22 Rx subcutaneous syringe (Enbrel) amlodipine 2.5 mg tablet (Norvasc) 2.5 mg PO QAM #90 tabs 12/12/21 10/16/22 Rx finasteride 5 mg tablet 5 mg PO DAILY #90 tabs 12/12/21 10/16/22 Rx glimepiride 4 mg tablet (Amaryl) 4 mg PO BID #180 tabs 12/12/21 10/16/22 Rx levothyroxine 100 mcg tablet 100 mcg PO QAM #90 tabs 12/12/21 10/16/22 Rx (Synthroid) omeprazole 40 mg capsule,delayed 40 mg PO DAILY #90 caps 12/12/21 10/16/22 Rx release potassium chloride 10 mEq 10 meq PO EVERY OTHER DAY #90 caps 12/12/21 10/16/22 Rx capsule,extended release telmisartan 40 1 tablet PO QAM #90 tabs 12/12/21 10/16/22 Rx mg-hydrochlorothiazide 12.5 mg tablet ascorbate calcium (vitamin C) 500 500 mg PO DAILY 01/30/22 10/16/22 History mg tablet metformin 500 mg tablet 500 mg PO QACDINNER 01/30/22 10/16/22 History multivitamin 1 tablet PO DAILY 01/30/22 10/16/22 History insulin degludec 100 unit/mL 24 unit subcut QHS 04/18/22 10/16/22 History subcutaneous solution (Tresiba U-100 Insulin) sodium,potassium,mag sulfates 17.5 See Rx Instructions PO .COMPLEX 07/17/22 10/05/22 Rx gram-3.13 gram-1.6 gram oral soln #354 mL (Suprep Bowel Prep Kit) atorvastatin 40 mg tablet 40 mg PO DAILY 08/17/22 10/16/22 History cholecalciferol (vitamin D3) 25 25 mcg PO DAILY 08/17/22 10/16/22 History mcg (1,000 unit) tablet (Vitamin D3) vitamin E 400 unit tablet 400 unit PO DAILY 08/17/22 10/16/22 History dulaglutide 3 mg/0.5 mL 3 mg subcut WEEKLY 10/05/22 10/16/22 History subcutaneous pen injector (Trulicity) empagliflozin 25 mg tablet 25 mg PO QAM 10/05/22 10/16/22 History (Jardiance) meloxicam 15 mg tablet 15 mg PO DAILY PRN Pain 10/05/22 10/16/22 History metoprolol succinate 25 mg 25 mg PO QAM 10/05/22 10/16/22 History tablet,extended release 24 hr (Toprol XL) Patient hx anesthesia problems: none Family hx anesthesia problems: none Results Review: All pre-operative results and documents have been reviewed as part of the pre-operative evaluation. [facility] Past Medical History Medical History (Updated 10/15/22 @ 15:30 by Misbah Bassett MD) CAD (coronary artery disease) Cardiac pacemaker Cervical radiculopathy Colonic mass Diabetes mellitus Esophageal reflux Essential (primary) hypertension Fusion of spine, cervical region History of cardiac monitoring Hypertension Hypothyroidism, unspecified Infective otitis externa of left ear Kidney stone Male erectile dysfunction, unspecified Metabolic syndrome Mixed hyperlipidemia Obesity XOCHITL (obstructive sleep apnea) Primary generalized (osteo)arthritis Psoriatic arthropathy Symptomatic cholelithiasis TIA (transient ischemic attack) Type 2 diabetes mellitus with hyperglycemia Umbilical hernia without mention of obstruction or gangrene Surgical History Surgical History (Updated 10/15/22 @ 15:30 by Misbah Bassett MD) H/O heart artery stent 3 stents 2009 History of laparoscopic cholecystectomy 05/10/20 Hx of LASIK Hx of LASIK Hx of tonsille
[2022-10-16] VITALS (13 sets, daily range): BP systolic 126–160; BP diastolic 50–77; PULSE 71–96; RESP 12–18; TEMP 35.9–36.7; O2SAT 94–100
[2022-10-16 08:01] LABS: Glucose Point of Care 203 mg/dl (65-105)
[2022-10-16] MEDS: LACTATED RINGERS 1,000 ML 30 ML IV CONT ×2 (08:10→13:55)
[2022-10-16] MEDS: ONDANSETRON INJ 4 MG/2 ML VIAL IV PUSH ×3 (08:20→20:18)
[2022-10-16] MEDS: SCOPOLAMINE 1.5 MG PATCH TRANSDERM (08:21)
[2022-10-16] MEDS: KETOROLAC 15 MG/ML VIAL (*BKC) IV PUSH (08:26)
--- NOTE | 2022-10-16 08:43 | WPDHPUPDATE1 ---
History and Physical Update Update Date/Time: 10/16/22 08:43 History and Physical has been reviewed, including an updated exam of the patient. There are NO changes in the patient's condition. Risks, benefits, and alternatives have been discussed and questions answered. Patient agrees to proceed with procedure.
--- NOTE | 2022-10-16 08:43 | PM.IMHP ---
H&P: HPI History of Present Illness Date/Time: 10/16/22 08:43 Chief Complaint: Sigmoid polyp Narrative: This is a 72-year-old man who presents with a large sigmoid polyp that was found on recent colonoscopy. This was biopsied and showed evidence of a serrated adenoma. It was tattooed and was estimated at a length of 20-25 cm from the anal verge. He now presents for surgical resection. He denies any changes since last seen in the office. Review of Systems Review of Systems: All systems reviewed & are unremarkable except as noted in HPI and below Constitutional: Constitutional: Denies chills, Denies fever(s), Denies headache(s) and Denies weight loss Eyes: Eyes: Denies change in vision ENT: Denies dizziness, Denies headache(s), Denies neck mass and Denies throat swelling Cardiovascular: Cardiovascular: Denies chest pain, Denies lightheadedness and Denies dyspnea Respiratory: Respiratory: Denies cough, Denies dyspnea and Denies wheezing Gastrointestinal: Gastrointestinal: Denies abdominal pain, Denies change in bowel habits, Denies nausea and Denies vomiting Genitourinary: Genitourinary: Denies hematuria and Denies dysuria Musculoskeletal: Musculoskeletal: Reports as per HPI Integumentary/Breasts: Skin/Breast: Reports as per HPI Neurologic: Denies dizziness and Denies headache(s) Allergic/Immunologic: Allergic/Immunologic: Denies throat swelling and Denies wheezing [facility] Past Medical History Medical History (Updated 10/15/22 @ 15:30 by Misbah Bassett MD) CAD (coronary artery disease) Cardiac pacemaker Cervical radiculopathy Colonic mass Diabetes mellitus Esophageal reflux Essential (primary) hypertension Fusion of spine, cervical region History of cardiac monitoring Hypertension Hypothyroidism, unspecified Infective otitis externa of left ear Kidney stone Male erectile dysfunction, unspecified Metabolic syndrome Mixed hyperlipidemia Obesity XOCHITL (obstructive sleep apnea) Primary generalized (osteo)arthritis Psoriatic arthropathy Symptomatic cholelithiasis TIA (transient ischemic attack) Type 2 diabetes mellitus with hyperglycemia Umbilical hernia without mention of obstruction or gangrene Surgical History Surgical History (Updated 10/15/22 @ 15:30 by Misbah Bassett MD) H/O heart artery stent 3 stents 2009 History of laparoscopic cholecystectomy 05/10/20 Hx of LASIK Hx of LASIK Hx of tonsillectomy Family History Family History Sibling Acute myocardial infarction Cerebrovascular accident Depression Carcinoma of colon Grandparent Diabetes mellitus Family history of cardiovascular disease Carcinoma of colon, Onset Age: 85 Father Hypertension Family history of cardiovascular disease Acute myocardial infarction, Onset Age: 72 Social History Social History Smoking packs per day: 1 Smoking cigarettes per day: 20.0 Years smoked: 12 Smoking pack-years: 12.00 Smoking status: Former smoker Tobacco type: cigarettes Second hand tobacco smoke exposure: Yes Smoking end date: 03/02/83 Alcohol intake: current Alcohol use details: Rarely Substance use: never Substance use type: does not use Lack of Transportation: No Lack of Food: Never True Current Housing: I Have Housing Concerned About Future Housing: No Difficulty Paying Gas/Electric Bills: No Difficulty Paying for Meds: No Currently Unemployed: No Education: Master's Degree or Higher Difficulty w/ Childcare or Family Care: No Living arrangements: with family Additional living arrangements comments: DAUGHTER Gender identity (if verbalized by the patient): Male Spiritual care concerns: No Meds Home Medications and Allergies Home Medications Medication Instructions Recorded Confirmed Type aspirin 81 mg tablet,delayed 81 mg PO QAM 08/10/19 10/16/22 History
[2022-10-16] MEDS: ACETAMINOPHEN 500 MG TABLET 1000 MG PO (08:55)
[2022-10-16] MEDS: ceFAZolin 2 GM/D5W 50 ML 2 GM/50 ML BAG IVPB (09:32)
[2022-10-16] MEDS: metroNIDAZOLE 500 MG/ISO 100ML 500 MG/100 ML BAG 100 MG IVPB (09:50)
[2022-10-16] MEDS: BUPIVACAINE/EPINEPHRINE 0.5% 10 ML VIAL 60 ML INFILTRATE (11:41)
[2022-10-16] MEDS: INDOCYANINE GREEN 25 MG VIAL 7.5 MG IV PUSH (12:15)
--- NOTE | 2022-10-16 13:52 | W.PM.PROC2 ---
Procedure Note - Detailed Date of Procedure 10/16/22 Pre-op Diagnosis Sigmoid polyp Post-op Diagnosis Same Procedure Performed Laparoscopic sigmoid colectomy with colorectal anastomosis, da Yolanda assisted Surgeon Danilo Nguyen DO Puppet Maker Lobo Villar MD Anesthesia General and Local (Exparel) Indications This is a 72-year-old man who presented with a recent finding a large sigmoid polyp on colonoscopy. He had undergone screening colonoscopy with Dr. Funes on 08/30/2022 and the large sigmoid polyp was biopsied and tattooed. Pathology showed evidence serrated adenoma. Discussions patient remained about treatment options and decision was made to proceed with robotic assisted laparoscopic sigmoid colectomy. Findings Robotic assisted laparoscopic sigmoid colectomy was performed. Tattoo region was identified on the distal sigmoid colon. Appeared to be adequate proximal colon to perform the resection and anastomosis. A high ligation of the inferior mesenteric artery was performed. A 31 mm EEA stapler was chosen for the anastomosis. Dr. Villar assisted with the procedure by advancing the EEA sizers up the rectum followed by advancing the EEA stapler to the rectal staple line. After completing the anastomosis, he also performed the rigid proctoscopy and anastomotic leak test. No air bubbles were identified leaking when the rectum was insufflated with air. Indocyanine green was also used to confirm adequate perfusion to the proximal colon for anastomosis and rectum. Sigmoid colon was removed and sent to lab for pathology. Description of Procedure Procedure as well as risks, benefits, and alternatives were discussed with the patient. Written consent was obtained and placed in chart prior to procedure. Patient was brought back to surgical suite. He was placed supine on operating table. Time-out was done to confirm patient and procedure. He was then intubated by the anesthesia department. He was then repositioned into a modified lithotomy position. His rectal area was prepped and draped in sterile fashion using Betadine prep and his abdomen was prepped and draped in sterile fashion using chlorhexidine prep. A 8 mm incision was made in the right upper quadrant and a 5 mm Optiview trocar was advanced through the abdominal layers under direct visualization. Once inside the abdominal cavity, carbon dioxide insufflation was used to create a pneumoperitoneum. Camera was inserted and her abdomen was inspected laparoscopically. No immediate abnormalities were identified. The patient was placed in steep Trendelenburg position. A 12 mm incision was made in the right lower quadrant about 2 cm medial to the ASIS, and a 12 mm trocar was inserted under direct visualization. Three more 8 mm incisions were placed and 8 mm ports were placed under direct visualization on an oblique angle going up towards the left upper quadrant. 0.5% bupivacaine with epinephrine was infiltrated around each incision. A careful thorough examination of the abdominal cavity was performed. The omentum was reflected cephalad over the stomach. The cecum and small bowel were reflected out of the pelvis. The robotic arms were then brought up to the patient's bedside in secured to the ports. The robotic camera and instruments were then inserted and then I moved over to the robotic console and took control of the camera and instruments. After carefully inspecting the abdominal cavity, I then lifted the rectosigmoid junction anteriorly to tent up the inferior mesenteric artery pedicle. A medial to lateral dissection was performed using scissors with electrocautery. I scored the peritoneum along the undersurface of the superior hemorrhoidal vessel at the sacral promontory and entered into the avascular space. I carefully dissected within the space to dissect the hypogastric nerves posteriorly and dissect laterally until the left ureter was identified. The ureter was identified and protected in i
[2022-10-16 14:27] LABS: Glucose Point of Care 265 mg/dl (65-105)
--- NOTE | 2022-10-16 15:32 | ADMGEN ---
This patient, Ced Mccracken, was admitted to [facility] Surg Room 327-01. Patient/family oriented to hospital policies and general routines including ID bracelet, bed and alarms, visiting hours, pain management, procedures, bathroom and other care routines, personal items, smoking policy, room service/diet, and visiting hours. Information on how to activate the Rapid Response Team has been discussed. Patient/Family are encouraged to report perceived risks to care and to ask questions if they do not understand what they are told or what they should do.
[2022-10-16] MEDS: LACTATED RINGERS 1,000 ML 100 ML IV CONT (16:01)
[2022-10-16] MEDS: ACETAMINOPHEN 500 MG TABLET PO ×2 (16:44→21:44)
[2022-10-16] MEDS: metFORMIN HCL 500 MG TABLET PO (16:44)
[2022-10-16] MEDS: oxyCODONE HCL (*CRX) 5 MG TAB IR PO (17:24)
[2022-10-16 17:33] LABS: Glucose Point of Care 164 mg/dl (65-105)
[2022-10-16] MEDS: INSULIN GLARGINE (*BKC) 100 UNITS/ML 24 UNITS SUB-Q (20:24)
[2022-10-16 21:07] LABS: Glucose Point of Care 180 mg/dl (65-105)
[2022-10-17] VITALS (7 sets, daily range): BP systolic 124–162; BP diastolic 68–76; PULSE 70–94; RESP 14–16; TEMP 36–36.4; O2SAT 96–99
[2022-10-17] MEDS: LACTATED RINGERS 1,000 ML 100 ML IV CONT ×3 (02:24→20:58)
[2022-10-17] MEDS: ACETAMINOPHEN 500 MG TABLET PO ×4 (04:43→20:43)
[2022-10-17] MEDS: oxyCODONE HCL (*CRX) 5 MG TAB IR PO ×3 (04:47→14:05)
[2022-10-17] MEDS: LEVOTHYROXINE SODIUM 100 MCG TABLET PO (05:34)
--- NOTE | 2022-10-17 08:06 | WPDANESPN ---
Anes - Prog Note Post-Op Date/Time: 10/17/22 08:06 Cardiovascular status: normal Respiratory status: normal Airway patency: baseline Mental status: baseline Post-Op hydration status: normal Vital Signs: Last Vital Signs Temp 36.0 C L 10/17/22 06:00 Pulse 87 10/17/22 06:00 Resp 16 10/17/22 06:00 BP 162/73 H 10/17/22 06:00 Pulse Ox 97 10/17/22 06:00 O2 Del Method Room Air 10/16/22 20:00 O2 Flow Rate 8 10/16/22 14:40 Pain Score (VAS): 3 I/O: Intake & Output 10/16/22 10/17/22 10/17/22 23:59 07:59 15:59 Intake Total 170 1500 Output Total 2050 Balance 170 -550 10/16/22 10/16/22 10/16/22 14:18 16:46 20:23 POC Capillary Glucose 265 H 164 H 180 H Post-procedural complaints: none Patient Feedback: Patient satisfied with anesthetic care.
[2022-10-17 08:15] LABS: Glucose Point of Care 170 mg/dl (65-105)
[2022-10-17 08:16] LABS: Basophils Percent Auto 0.2 % (0.2-1.2); Hematocrit 42.6 % (42.0-52.0); Hemoglobin 14.6 g/dL (14.0-18.0); Immature Granulocyte Absolute 0.14 K/mm3 (0.00-0.031); Immature Granulocyte Percent A 0.7 % (0-0.5); Lymphocytes Absolute Auto 1.67 K/mm3 (0.9-3.2); Lymphocytes Percent Auto 7.9 % (18.3-44.2); Mean Corpuscular HGB Conc 34.3 g/dl (32-36); Mean Corpuscular Hemoglobin 29.4 pg (26-34); Mean Corpuscular Volume 85.9 fl (80-100); Mean Platelet Volume 8.5 fl (7.4-10.4); Monocytes Absolute Auto 1.5 K/mm3 (0.1-0.6); Neutrophils Absolute Auto 17.9 K/mm3 (1.3-6.7); Neutrophils Percent Auto 84.2 % (45.5-73.1); Platelet Count Result 251 k/mm3 (150-375); Red Blood Count 4.96 M/mm3 (4.6-6.20); Red Cell Distribution Width 13.6 % (11.5-14.5); White Blood Count 21.2 K/mm3 (4.5-10.0)
[2022-10-17 08:26] LABS: Anion Gap 5 mmol/L (8-16); Blood Urea Nitrogen 17 mg/dL (9-20); Calcium 8.1 mg/dL (8.4-10.2); Carbon Dioxide 28 mmol/L (22-30); Chloride 99 mmol/L (98-107); Estimated CRCL calculation 77 ml/min; Estimated Glomerular Filt Rate > 60; Glucose 155 mg/dL (65-110); Potassium 3.8 mmol/L (3.4-5.0); Sodium 132 mmol/L (137-145)
[2022-10-17] MEDS: ONDANSETRON INJ 4 MG/2 ML VIAL IV PUSH (08:36)
[2022-10-17] MEDS: METOPROLOL SUCCINATE EXT REL 25 MG TABCR PO (09:42)
[2022-10-17] MEDS: FINASTERIDE 5 MG TABLET PO (09:42)
[2022-10-17] MEDS: PANTOPRAZOLE 40 MG TABLET PO ×2 (09:42→16:57)
[2022-10-17] MEDS: amLODIPine BESYLATE 2.5 MG TABLET PO (09:42)
[2022-10-17] MEDS: ENOXAPARIN 40 MG/0.4 ML SYRINGE SUB-Q (09:42)
[2022-10-17] MEDS: EMPAGLIFLOZIN 25 MG TABLET PO (09:42)
[2022-10-17 11:27] LABS: Glucose Point of Care 329 mg/dl (65-105)
[2022-10-17] MEDS: INSULIN ASPART (*BKC) 100 UNITS/ML SUB-Q (11:45)
[2022-10-17 16:37] LABS: Glucose Point of Care 164 mg/dl (65-105)
--- NOTE | 2022-10-17 16:44 | PM.PNGS ---
Progress Note: A&P Assessment and Plan (1) Sigmoid polyp: Code(s): K63.5 - Polyp of colon Status: Acute Assessment and Plan: Advance to full liquids today Increase activity, await return of bowel function Pathology pending (2) Postoperative urinary retention: Code(s): N99.89 - Other postprocedural complications and disorders of genitourinary system; R33.8 - Other retention of urine Status: Acute Assessment and Plan: Malave replaced this afternoon. Will keep in place for another 1-2 days. (3) Type 2 diabetes mellitus with hyperglycemia: Qualifiers: Diabetes mellitus ramp supervisor insulin use: without ramp supervisor use Qualified Code(s): E11.65 - Type 2 diabetes mellitus with hyperglycemia Code(s): E11.65 - Type 2 diabetes mellitus with hyperglycemia Status: Acute (4) Hypertension: Code(s): I10 - Essential (primary) hypertension Status: Acute (5) XOCHITL (obstructive sleep apnea): Code(s): G47.33 - Obstructive sleep apnea (adult) (pediatric) Status: Acute Subjective Subjective Date/Time Seen: 10/17/22 16:44 Interval history: Stable on POD#1. Malave was removed this AM. He was feeling some spasm and pressure in the suprapubic region later this morning and was not able to urinate much. Bladder scan reveals high post void residual. Malave replaced. No flatus or BM yet. Pain otherwise well controlled. Exam GI: Inspection: incision (intact with glue) GI Palp: Yes Soft to palpation and Yes Tenderness to palpation present (GI) (incsional) Auscultation: Hypoactive bowel sounds present Objective Data Vital Signs Vital Signs: Vital Signs - 24 hr 10/16/22 20:00 10/16/22 22:00 10/17/22 01:06 Temperature 36.2 C L 36.3 C L Pulse Rate 96 94 Respiratory Rate 14 16 Blood Pressure 145/69 H 146/72 H Pulse Oximetry 96 96 Oxygen Delivery Room Air 10/17/22 06:00 10/17/22 09:42 10/17/22 09:06 Temperature 36.0 C L 36.2 C L Pulse Rate 87 70 84 Respiratory Rate 16 16 Blood Pressure 162/73 H 124/70 Pulse Oximetry 97 99 Oxygen Delivery 10/17/22 13:06 Temperature 36.4 C Pulse Rate 76 Respiratory Rate 16 Blood Pressure 145/68 H Pulse Oximetry 98 Oxygen Delivery Intake/Output Intake/Output: Intake & Output 10/14/22 10/15/22 10/16/22 10/17/22 23:59 23:59 23:59 23:59 Intake Total 245 2938 Output Total 190 2250 Balance 55 688 Meds/Results Medications: Active Medications Generic Name Dose Route Start Last Admin Trade Name Freq PRN Reason Stop Dose Admin Acetaminophen 500 mg 10/16/22 16:00 10/17/22 09:42 Acetaminophen 500 Mg Tablet PO 500 mg Q6H MEKA Administration Amlodipine Besylate 2.5 mg 10/17/22 09:00 10/17/22 09:42 Amlodipine Besylate 2.5 Mg Tablet PO 2.5 mg QAM MEKA Administration Dextrose 12.5 gm 10/16/22 15:21 Dextrose 50% 25 Gm/50 Ml Syringe IV PUSH PRN PRN Hypoglycemia Protocol Empagliflozin 25 mg 10/17/22 09:00 10/17/22 09:42 Empagliflozin 25 Mg Tablet PO 25 mg QAM MEKA Administration Enoxaparin Sodium 40 mg 10/17/22 09:00 10/17/22 09:42 Enoxaparin 40 Mg/0.4 Ml Syringe SUB-Q 40 mg DAILY MEKA Administration Finasteride 5 mg 10/17/22 09:00 10/17/22 09:42 Finasteride 5 Mg Tablet PO 5 mg DAILY MEKA Administration Glucagon 1 mg 10/16/22 15:21 Glucagon For Inj 1 Mg Vial IM PRN PRN Hypoglycemia Protocol Glucose 15 gm 10/16/22 15:21 Glucose Oral Gel 15 Gm Of Glucse In 37.5 Gm Tube PO PRN PRN Hypoglycemia Protocol Lactated Ringer's 1,000 mls @ 100 mls/hr 10/16/22 15:21 10/17/22 11:46 Lr - Lactated Ringers Iv IV CONT 100 mls/hr .Q10H MEKA Administration Dextrose 1,000 mls @ 100 mls/hr 10/16/22 15:21 Dextrose 5% 1,000 Ml IVPB PRN PRN Hypoglycemia Protocol Insulin Aspart 3 - 6 units 10/16/22 17:00 10/17/22 11:45 Insulin Aspart (*Bkc) 100 Uni
[2022-10-17] MEDS: metFORMIN HCL 500 MG TABLET PO (16:58)
[2022-10-17] MEDS: GLIMEPIRIDE 2 MG TABLET 4 MG PO (18:52)
[2022-10-17] MEDS: INSULIN GLARGINE (*BKC) 100 UNITS/ML 24 UNITS SUB-Q (20:46)
[2022-10-17 21:14] LABS: Glucose Point of Care 142 mg/dl (65-105)
[2022-10-18] MEDS: oxyCODONE HCL (*CRX) 5 MG TAB IR PO ×2 (01:32→14:57)
[2022-10-18] MEDS: LEVOTHYROXINE SODIUM 100 MCG TABLET PO (05:08)
[2022-10-18] MEDS: ACETAMINOPHEN 500 MG TABLET PO ×4 (05:08→20:47)
[2022-10-18 06:00] VITALS: BP 157/70; PULSE 87; RESP 18; TEMP 36.2; O2SAT 96
[2022-10-18 06:30] LABS: Hematocrit 38.9 % (42.0-52.0); Hemoglobin 13.2 g/dL (14.0-18.0); Mean Corpuscular HGB Conc 33.9 g/dl (32-36); Mean Corpuscular Hemoglobin 29.5 pg (26-34); Mean Corpuscular Volume 86.8 fl (80-100); Mean Platelet Volume 8.4 fl (7.4-10.4); Platelet Count Result 219 k/mm3 (150-375); Red Blood Count 4.48 M/mm3 (4.6-6.20); Red Cell Distribution Width 13.6 % (11.5-14.5); White Blood Count 13.7 K/mm3 (4.5-10.0)
[2022-10-18 06:42] LABS: Anion Gap 5 mmol/L (8-16); Blood Urea Nitrogen 16 mg/dL (9-20); Calcium 7.9 mg/dL (8.4-10.2); Carbon Dioxide 28 mmol/L (22-30); Chloride 99 mmol/L (98-107); Estimated CRCL calculation 87 ml/min; Estimated Glomerular Filt Rate > 60; Glucose 72 mg/dL (65-110); Potassium 3.4 mmol/L (3.4-5.0); Sodium 132 mmol/L (137-145)
[2022-10-18 07:48] LABS: Glucose Point of Care 74 mg/dl (65-105)
[2022-10-18 08:21] VITALS: O2SAT 96
[2022-10-18] MEDS: LACTATED RINGERS 1,000 ML 100 ML IV CONT (08:29)
[2022-10-18] MEDS: TELMISARTAN 40 MG TABLET PO (08:30)
[2022-10-18] MEDS: PANTOPRAZOLE 40 MG TABLET PO ×2 (08:30→17:23)
[2022-10-18] MEDS: FINASTERIDE 5 MG TABLET PO (08:30)
[2022-10-18] MEDS: hydroCHLOROthiazide 12.5 MG CAPSULE PO (08:31)
[2022-10-18] MEDS: GLIMEPIRIDE 2 MG TABLET 4 MG PO ×2 (08:31→17:23)
[2022-10-18] MEDS: amLODIPine BESYLATE 2.5 MG TABLET PO (08:31)
[2022-10-18] MEDS: METOPROLOL SUCCINATE EXT REL 25 MG TABCR PO (08:31)
[2022-10-18] MEDS: ENOXAPARIN 40 MG/0.4 ML SYRINGE SUB-Q (08:32)
[2022-10-18] MEDS: EMPAGLIFLOZIN 25 MG TABLET PO (08:32)
--- NOTE | 2022-10-18 10:02 | PM.PNGS ---
Progress Note: A&P Assessment and Plan (1) Sigmoid polyp: Code(s): K63.5 - Polyp of colon Status: Acute Assessment and Plan: Bowel function returning. Tolerating full liquids. Will advance to a soft diet today. Stop the IV fluids. Pathology pending this morning. (2) Postoperative urinary retention: Code(s): N99.89 - Other postprocedural complications and disorders of genitourinary system; R33.8 - Other retention of urine Status: Acute Assessment and Plan: Post-op urinary retention with Malave catheter replaced yesterday, may try to remove his catheter tomorrow. (3) Type 2 diabetes mellitus with hyperglycemia: Qualifiers: Diabetes mellitus mcfp insulin use: without continuous churn buttermaker use Qualified Code(s): E11.65 - Type 2 diabetes mellitus with hyperglycemia Code(s): E11.65 - Type 2 diabetes mellitus with hyperglycemia Status: Acute (4) Hypertension: Code(s): I10 - Essential (primary) hypertension Status: Acute (5) XOCHITL (obstructive sleep apnea): Code(s): G47.33 - Obstructive sleep apnea (adult) (pediatric) Status: Acute Plan I have discussed the patient's case and plan of care with Dr. Nguyen. Subjective Subjective Date/Time Seen: 10/18/22 10:02 Patient reports: no new complaints, tolerating liquids well, flatus, bowel movement and afebrile Interval history: Patient reports feeling tired this morning, but no acute events overnight. His post-op pain is being controlled with the oxycodone. He had some urinary retention after having his Malave removed yesterday morning and ultimately had a urinary catheter placed in the afternoon. He started passing flatus last night and had one BM this morning. He denies any nausea or vomiting. No other complaints at this time. Review of Systems Review of Systems: All systems reviewed & are unremarkable except as noted in HPI and below Exam Const: General: comfortable, no acute distress and awake Orientation/consciousness: patient oriented x3 GI: Inspection: non-distended and incision (incisions dry and intact) GI Palp: Yes Soft to palpation, Yes Tenderness to palpation present (GI) (incisional) and No Guarding due to palpation present (GI) Auscultation: normal bowel sounds Neuro: General: moves all extremities and no focal motor deficits Extrem: General: no calf tenderness and no edema Psych: Mental Status: mental status grossly normal Insight: Good insight present (Psych) Objective Data Vital Signs Vital Signs: Vital Signs - 24 hr 10/17/22 13:06 10/17/22 17:06 10/17/22 21:42 Temperature 97.6 F 97.3 F L 97.4 F L Pulse Rate 76 79 81 Respiratory Rate 16 16 14 Blood Pressure 145/68 H 153/76 H 140/74 Pulse Oximetry 98 96 96 Oxygen Delivery 10/18/22 06:00 10/18/22 08:21 Temperature 97.1 F L Pulse Rate 87 Respiratory Rate 18 Blood Pressure 157/70 H Pulse Oximetry 96 96 Oxygen Delivery Room Air Intake/Output Intake/Output: Intake & Output 10/15/22 10/16/22 10/17/22 10/18/22 23:59 23:59 23:59 23:59 Intake Total 245 4678 2244 Output Total 190 2850 2000 Balance 55 1828 244 Meds/Results Medications: Active Medications Generic Name Dose Route Start Last Admin Trade Name Freq PRN Reason Stop Dose Admin Acetaminophen 500 mg 10/16/22 16:00 10/18/22 08:30 Acetaminophen 500 Mg Tablet PO 500 mg Q6H MEKA Administration Amlodipine Besylate 2.5 mg 10/17/22 09:00 10/18/22 08:31 Amlodipine Besylate 2.5 Mg Tablet PO 2.5 mg QAM MEKA Administration Dextrose 12.5 gm 10/16/22 15:21 Dextrose 50% 25 Gm/50 Ml Syringe IV PUSH PRN PRN Hypoglycemia Protocol Empagliflozin 25 mg 10/17/22 09:00 10/18/22 08:32 Empagliflozin 25 Mg Tablet PO 25 mg QAM MEKA Administration Enoxaparin Sodium 40 mg 10/17/22 09:00 10/18/22 08:32 Enoxaparin 40 Mg/0.4 Ml Syringe SUB-Q 40 mg DAILY MEKA Administration Finasteride 5 m
[2022-10-18 11:40] LABS: Glucose Point of Care 166 mg/dl (65-105)
[2022-10-18 13:42] VITALS: BP 128/24; PULSE 84; RESP 20; TEMP 36.6; O2SAT 98
[2022-10-18 16:43] LABS: Glucose Point of Care 74 mg/dl (65-105)
[2022-10-18] MEDS: metFORMIN HCL 500 MG TABLET PO (17:23)
[2022-10-18] MEDS: INSULIN GLARGINE (*BKC) 100 UNITS/ML 24 UNITS SUB-Q (20:48)
[2022-10-18 22:00] VITALS: BP 116/97; PULSE 92; RESP 16; TEMP 36.9; O2SAT 97
[2022-10-19 02:57] LABS: Glucose Point of Care 168 mg/dl (65-105)
[2022-10-19] MEDS: LEVOTHYROXINE SODIUM 100 MCG TABLET PO (05:53)
[2022-10-19 06:00] VITALS: BP 150/72; PULSE 81; RESP 16; TEMP 36.5; O2SAT 97
[2022-10-19 07:26] LABS: Hematocrit 37.8 % (42.0-52.0); Hemoglobin 12.9 g/dL (14.0-18.0); Mean Corpuscular HGB Conc 34.1 g/dl (32-36); Mean Corpuscular Hemoglobin 29.1 pg (26-34); Mean Corpuscular Volume 85.1 fl (80-100); Mean Platelet Volume 8.4 fl (7.4-10.4); Platelet Count Result 236 k/mm3 (150-375); Red Blood Count 4.44 M/mm3 (4.6-6.20); Red Cell Distribution Width 13.3 % (11.5-14.5); White Blood Count 11.3 K/mm3 (4.5-10.0)
[2022-10-19 07:43] LABS: Anion Gap 5 mmol/L (8-16); Blood Urea Nitrogen 18 mg/dL (9-20); Calcium 8.5 mg/dL (8.4-10.2); Carbon Dioxide 32 mmol/L (22-30); Chloride 98 mmol/L (98-107); Estimated CRCL calculation 77 ml/min; Estimated Glomerular Filt Rate > 60; Glucose 69 mg/dL (65-110); Potassium 3.7 mmol/L (3.4-5.0); Sodium 135 mmol/L (137-145)
[2022-10-19 07:57] LABS: Glucose Point of Care 75 mg/dl (65-105)
[2022-10-19 09:12] VITALS: PULSE 80
[2022-10-19] MEDS: hydroCHLOROthiazide 12.5 MG CAPSULE PO (09:12)
[2022-10-19] MEDS: GLIMEPIRIDE 2 MG TABLET 4 MG PO ×2 (09:12→16:51)
[2022-10-19] MEDS: METOPROLOL SUCCINATE EXT REL 25 MG TABCR PO (09:12)
[2022-10-19] MEDS: EMPAGLIFLOZIN 25 MG TABLET PO (09:12)
[2022-10-19] MEDS: TELMISARTAN 40 MG TABLET PO (09:12)
[2022-10-19] MEDS: FINASTERIDE 5 MG TABLET PO (09:12)
[2022-10-19] MEDS: ACETAMINOPHEN 500 MG TABLET PO ×2 (09:12→15:15)
[2022-10-19] MEDS: PANTOPRAZOLE 40 MG TABLET PO ×2 (09:12→16:51)
[2022-10-19] MEDS: ENOXAPARIN 40 MG/0.4 ML SYRINGE SUB-Q (09:12)
[2022-10-19] MEDS: amLODIPine BESYLATE 2.5 MG TABLET PO (09:12)
[2022-10-19 11:54] LABS: Glucose Point of Care 174 mg/dl (65-105)
[2022-10-19 14:00] VITALS: BP 133/70; PULSE 86; RESP 18; TEMP 36.9; O2SAT 97
[2022-10-19] MEDS: oxyCODONE HCL (*CRX) 2.5 MG TAB IR PO (15:14)
--- NOTE | 2022-10-19 16:04 | PM.DS ---
DS: Admitting Diagnosis Discharge Date 10/19/2022 Admitting Diagnosis adenoma of sigmoid colon DS: Discharge Diagnosis Discharge Diagnosis (1) Adenomatous polyp of sigmoid colon: Code(s): D12.5 - Benign neoplasm of sigmoid colon Status: Acute (2) Postoperative urinary retention: Code(s): N99.89 - Other postprocedural complications and disorders of genitourinary system; R33.8 - Other retention of urine Status: Acute (3) XOCHITL (obstructive sleep apnea): Code(s): G47.33 - Obstructive sleep apnea (adult) (pediatric) Status: Acute (4) Essential (primary) hypertension: Code(s): I10 - Essential (primary) hypertension Status: Acute (5) Type 2 diabetes mellitus with hyperglycemia: Qualifiers: Diabetes mellitus terminal supervisor insulin use: without terminal supervisor use Qualified Code(s): E11.65 - Type 2 diabetes mellitus with hyperglycemia Code(s): E11.65 - Type 2 diabetes mellitus with hyperglycemia Status: Acute DS: Summary Hospital Course Reason for hospitalization: sigmoid colon polyp Hospital Course: this is a 72-year-old man who presented with a large adenomatous polyp that was identified on recent colonoscopy. He was admitted 10/16/2022 for robotic assisted laparoscopic sigmoid colectomy. Postoperatively he was started on a clear liquid diet and pain was initially controlled with IV and p.o. pain medications. He had a Malave catheter placed at the time of surgery. This was removed on postop day 1, but later on that afternoon he was still urinating minimal amounts and was having high postvoid residuals. Malave catheter was then replaced. He was advanced to a full liquid diet on postoperative day 1. His bowels were moving and he was tolerating the liquid diet. He was remaining hemodynamically stable. On postoperative day 2 his diet was advanced to a soft regular diet. His IV fluids were stopped. He denied any nausea or vomiting and his bowels were continuing to move. Postoperative day 3 his Malave catheter was removed. He was able to urinate later on that day without any difficulty. Pathology came back as a sigmoid adenoma. No other concerning features. He was discharged on postop day 3. Status at Discharge Functional status at discharge: uses cane/walker Overall status at discharge: patient is progressing back to baseline Time Spent with Patient Time attestation: Total time spent providing and/or coordinating discharge services: Time spent: Less than 30 minutes Exam Resp: Effort & Inspection: normal respiratory effort Auscultation: clear to auscultation bilaterally Cardio: Rate: regular rate Rhythm: regular rhythm Heart sounds: S1 normal heart sound present and S2 normal heart sound present GI: Inspection: incision ( Intact with glue, mild bruising around incisions) GI Palp: Yes Soft to palpation and Yes Tenderness to palpation present (GI) ( incisional) Auscultation: normal bowel sounds DS: Data Data Completed and Pending Completed studies during hospitalization: Pending at discharge 10/16/22 12:42 Surgical [PTH] Routine Labs on day of discharge: Labs from last 24 hours 10/19/22 10/19/22 10/19/22 11:36 07:51 07:05 WBC RBC Hgb Hct MCV MCH MCHC RDW Plt Count MPV Sodium 135 L Potassium 3.7 Chloride 98 Carbon Dioxide 32 H Anion Gap 5 L BUN 18 Creatinine 0.70 Estim Creat Clear Calc 77 Estimated GFR > 60 Glucose 69 POC Capillary Glucose 174 H 75 Calcium 8.5 10/19/22 10/18/22 10/18/22 07:05 19:54 16:35 WBC 11.3 H RBC 4.44 L Hgb 12.9 L Hct 37.8 L MCV 85.1 MCH 29.1 MCHC 34.1 RDW 13.3 Plt Count 236 MPV 8.4 Sodium Potassium Chloride Carbon Dioxide Anion Gap BUN Creatinine Estim Creat Clear Calc Estimated GFR Glucose POC Capillary Glucose [address]
[2022-10-19 16:42] LABS: Glucose Point of Care 215 mg/dl (65-105)
[2022-10-19] MEDS: metFORMIN HCL 500 MG TABLET PO (16:51)
[2022-10-19] MEDS: INSULIN ASPART (*BKC) 100 UNITS/ML SUB-Q (16:51)
== END 2022-10-19 18:05 | disposition home or self-care (01) | DRG 331 ==
LOC: ANH3MEDSUR 15:27
PROVIDERS: Nurse Practitioner Family; Admitting Provider Surgery; PCP Family Medicine; Visit Provider Surgery
PROC: 0DTN4ZZ Resection of Sigmoid Colon, Percutaneous Endoscopic Approach (ICD-10-PCS; principal; 2022-10-16 09:30)
DX: D12.5 Benign neoplasm of sigmoid colon (principal); N99.89 Other postprocedural complications and disorders of genitourinary system; R33.8 Other retention of urine; G47.33 Obstructive sleep apnea (adult) (pediatric); I10 Essential (primary) hypertension; E11.65 Type 2 diabetes mellitus with hyperglycemia; I25.10 Atherosclerotic heart disease of native coronary artery without angina pectoris; E78.2 Mixed hyperlipidemia; E03.9 Hypothyroidism, unspecified; M54.12 Radiculopathy, cervical region; K42.9 Umbilical hernia without obstruction or gangrene; M15.0 Primary generalized (osteo)arthritis; Z90.49 Acquired absence of other specified parts of digestive tract; Z95.0 Presence of cardiac pacemaker; Z95.5 Presence of coronary angioplasty implant and graft; Z86.73 Personal history of transient ischemic attack (TIA), and cerebral infarction without residual deficits; Z87.891 Personal history of nicotine dependence
CPT/HCPCS: 36415; 80048; 82948; 85025; 85027; 88309; A9270; C1729; J0330; J0690; J1100; J1170; J1650; J1815; J1885; J2250; J2370; J2405; J2704; J2710; J3010; J7030; J7120

== ENCOUNTER 2023-01-08 11:17 | Emergency (ER) | payer MEDICARE, OTHER, SELFPAY ==
--- NOTE | ~2023-01-08 | XR_ITS ---
EXAMINATION: XR humerus RT DATE: 01/08/2023 12:47 INDICATION: Right arm pain after stretching TECHNIQUE: Internal and externally rotated views of the right humerus were obtained. COMPARISON: Right shoulder radiographs dated 02/15/2021 FINDINGS: Bone alignment is normal. No fracture. Severe osteoarthritis at the right acromioclavicular joint, mi ld to moderate osteoarthritis of the right glenohumeral joint and mild osteoarthritis at the right el bow. Small dystrophic calcifications along the posterior facet of the greater tuberosity consistent w ith the calcific tendinitis involving the teres minor or posterior most infraspinatus tendons. Visual ized portions of the right lung are clear. Again seen is a cardiac pacemaker lead with chronic frayin g and/or fracture of the lead in the region of the right axilla. Soft tissues are unremarkable. IMPRESSION: 1. Degenerative changes as detailed above. No acute osseous abnormality. 2. Cardiac pacemaker lead with chronic sprain/fracture of the lead at the level of the right axilla. Reviewed, dictated and finalized at location A.
[2023-01-08 11:31] VITALS: BP 133/71; PULSE 65; RESP 18; O2SAT 100
--- NOTE | 2023-01-08 13:40 | ED.UPPEXIN ---
HPI - Extremity Injury (Upper) General Chief Complaint: Extremity Injury, Upper Stated Complaint: Arm Injury Time Seen by Provider: 01/08/23 11:58 Source: patient and family Mode of arrival: ambulatory Limitations: no limitations History of Present Illness HPI narrative: 72-year-old with a history of CAD, s/p pacemaker, hypertension, diabetes here with complaints of hours abnormal swelling in his right biceps area. Patient was stretching while he was doing that he felt a pop in his right shoulder. He states his pain is very minimal he is able to move the shoulder without difficulty. MD complaint: injury to: right Other Extremity Injury: Right: arm Other injuries: none Handedness: right Place: home Severity: mild Relieving factors: none Exacerbating factors: none Context: other (was streching) Associated symptoms: denies other symptoms Related Data Home Medications Medication Instructions Recorded Confirmed aspirin 81 mg tablet,delayed 81 mg PO QAM 08/10/19 12/06/22 release (Adult Low Dose Aspirin) ascorbate calcium (vitamin C) 500 500 mg PO DAILY 01/30/22 12/06/22 mg tablet multivitamin 1 tablet PO DAILY 01/30/22 12/06/22 insulin degludec 100 unit/mL 24 unit subcut QHS 04/18/22 12/06/22 subcutaneous solution (Tresiba U-100 Insulin) cholecalciferol (vitamin D3) 25 25 mcg PO DAILY 08/17/22 12/06/22 mcg (1,000 unit) tablet (Vitamin D3) vitamin E 400 unit tablet 400 unit PO DAILY 08/17/22 12/06/22 dulaglutide 3 mg/0.5 mL 3 mg subcut WEEKLY 10/05/22 12/06/22 subcutaneous pen injector (Trulicity) empagliflozin 25 mg tablet 25 mg PO QAM 10/05/22 12/06/22 (Jardiance) metoprolol succinate 25 mg 25 mg PO QAM 10/05/22 12/06/22 tablet,extended release 24 hr (Toprol XL) Allergies Allergy/AdvReac Type Severity Reaction Status Date / Time atropine Allergy Severe DECREASED Verified 01/08/23 11:50 HR Review of Systems Review of Systems: All systems reviewed & are unremarkable except as noted in HPI and below Constitutional: Constitutional: Reports no additional constitutional complaints Eyes: Eyes: Reports no additional eye complaints ENT: Reports system reviewed and no additional complaints, except as documented Cardiovascular: Cardiovascular: Reports no additional cardiovascular complaints Respiratory: Respiratory: Reports no additional respiratory complaints Gastrointestinal: Gastrointestinal: Reports no additional gastrointestinal complaints Musculoskeletal: Musculoskeletal: Reports as per HPI Integumentary/Breasts: Skin/Breast: Reports system reviewed and no additional complaints, except as docu Neurologic: Reports system reviewed and no additional complaints, except as documented PMFSH Past Medical History Medical History CAD (coronary artery disease) Cardiac pacemaker Cervical radiculopathy Colonic mass Diabetes mellitus Esophageal reflux Essential (primary) hypertension Fusion of spine, cervical region History of cardiac monitoring Hypertension Hypothyroidism, unspecified Infective otitis externa of left ear Kidney stone Male erectile dysfunction, unspecified Metabolic syndrome Mixed hyperlipidemia Obesity XOCHITL (obstructive sleep apnea) Primary generalized (osteo)arthritis Psoriatic arthropathy Symptomatic cholelithiasis TIA (transient ischemic attack) Type 2 diabetes mellitus with hyperglycemia Umbilical hernia without mention of obstruction or gangrene Surgical History Surgical History H/O heart artery stent 3 stents 2009 History of laparoscopic cholecystectomy 05/10/20 Hx of LASIK Hx of LASIK Hx of tonsillectomy S/P laparoscopic colectomy laparoscopic sigmoid colectomy with colorectal anastomosis, da Yolanda assisted Status post colon resection Family History Family History Sibling Ac
[2023-01-08 13:45] VITALS: BP 114/71; PULSE 65; RESP 18; O2SAT 100
== END 2023-01-08 13:46 | disposition home or self-care (01) ==
PROVIDERS: Emergency Provider Family Medicine; PCP Family Medicine
DX: S46.211A Strain of muscle, fascia and tendon of other parts of biceps, right arm, initial encounter (principal); I25.10 Atherosclerotic heart disease of native coronary artery without angina pectoris; I10 Essential (primary) hypertension; E11.9 Type 2 diabetes mellitus without complications; E78.2 Mixed hyperlipidemia; E88.81 Metabolic syndrome and other insulin resistance; E03.9 Hypothyroidism, unspecified; L40.50 Arthropathic psoriasis, unspecified; G47.33 Obstructive sleep apnea (adult) (pediatric); K21.9 Gastro-esophageal reflux disease without esophagitis; Z95.0 Presence of cardiac pacemaker; Z95.5 Presence of coronary angioplasty implant and graft; Z86.73 Personal history of transient ischemic attack (TIA), and cerebral infarction without residual deficits; Z87.442 Personal history of urinary calculi; Z87.891 Personal history of nicotine dependence; Z79.82 Long term (current) use of aspirin; Z79.85 Long-term (current) use of injectable non-insulin antidiabetic drugs; Z79.4 Long term (current) use of insulin; Z79.84 Long term (current) use of oral hypoglycemic drugs; X50.9XXA Other and unspecified overexertion or strenuous movements or postures, initial encounter
CPT/HCPCS: 73060; 99283

== ENCOUNTER 2023-05-27 16:06 | Outpatient (CLI) | payer MEDICARE, OTHER, SELFPAY ==
--- NOTE | ~2023-05-27 | XR_ITS ---
XR shoulder RT min 2V 05/27/2023 16:34 Indication: Right shoulder pain Procedure: 2 views right shoulder Comparison: 01/08/2023 Findings: there is moderate-severe polyarticular osteoarthritis of the right acromioclavicular and gl enohumeral joints. No fracture or traumatic malalignment. No significant soft tissue abnormality. No foreign bodies. 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 Reviewed, dictated and finalized at location L. 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
== END 2023-05-27 16:07 | disposition home or self-care (01) ==
PROVIDERS: PCP Family Medicine; Visit Provider Specialist
DX: M19.011 Primary osteoarthritis, right shoulder (principal)
CPT/HCPCS: 73030

== ENCOUNTER 2023-10-18 11:47 | Outpatient (CLI) | payer MEDICARE, OTHER, SELFPAY ==
--- NOTE | ~2023-10-18 | XR_ITS ---
XR lumbar spine min 4V DATE: 10/18/2023 12:14 INDICATION: Chronic low back pain, worsening past 2-3 weeks TECHNIQUE: AP, bilateral oblique, lateral and coned lateral lumbosacral views COMPARISON: None FINDINGS: There is a transitional lumbosacral vertebra which may be a source of chronic back pain. There is multilevel moderate degenerative disc disease of the lumbar spine. No fracture or bone destruction, spondylolysis or spondylolisthesis is evident. The included lower thoracic and lumbar pedicles are intact. The sacroiliac joints are intact, with degenerative change. Battery pack overlies the right side. Surgical clips, right upper quadrant, likely due to cholecystectomy. Prominent abdominal aortic calcification, without evidence of aneurysm, in addition to some bilateral common iliac artery calcification. IMPRESSION: Multilevel moderate degenerative disc disease Reviewed, dictated and finalized at location A. [employer]
== END 2023-10-18 11:48 | disposition home or self-care (01) ==
PROVIDERS: PCP Family Medicine; Visit Provider Family Medicine
DX: M51.36 Other intervertebral disc degeneration, lumbar region (principal); M51.37 Other intervertebral disc degeneration, lumbosacral region; M46.1 Sacroiliitis, not elsewhere classified; G89.29 Other chronic pain; Z90.49 Acquired absence of other specified parts of digestive tract
CPT/HCPCS: 72110

== ENCOUNTER 2023-12-04 00:25 | Day surgery (SDC) | payer MEDICARE, OTHER, SELFPAY ==
[2023-11-25 10:57] VITALS: BMI 29.0
--- NOTE | 2023-12-02 12:38 | SUR.PREOP ---
Patient called regarding upcoming procedure. Reviewed preop instructions, appointment times, and procedure prep.
[2023-12-04 09:39] VITALS: BP 115/68; PULSE 74; RESP 16; TEMP 36.1; O2SAT 98; BMI 28.8
[2023-12-04] MEDS: LACTATED RINGERS 1,000 ML 150 ML IV CONT (10:03)
--- NOTE | 2023-12-04 10:05 | WPDANESEPPF ---
Anes - Initial Pre Proc Eval Procedure: Operation Date: 12/04/23 11:00 Proposed Procedures p Colonoscopy - Aayush Niño MD Date/Time: 12/04/23 10:05 Surgeon: Aayush Niño MD Pre Op Diagnosis: hx colon polyps Patient Data Age: 73 Gender: M Height: 1.7 m Weight: 83.6 kg Last Vital Signs Temp 97.0 F L 12/04/23 09:39 Pulse 74 12/04/23 09:39 Resp 16 12/04/23 09:39 BP 115/68 12/04/23 09:39 Pulse Ox 98 12/04/23 09:39 O2 Del Method Room Air 12/04/23 09:39 Allergies Allergy/AdvReac Type Severity Reaction Status Date / Time atropine Allergy Severe DECREASED Verified 12/04/23 09:46 HR meloxicam AdvReac Mild Dizziness Verified 12/04/23 09:46 Home Medications Medication Instructions Recorded Confirmed Type aspirin 81 mg tablet,delayed 81 mg PO QAM 08/10/19 12/04/23 History release (Adult Low Dose Aspirin) etanercept 50 mg/mL (1 mL) 50 mg subcut WEEKLY #13 mL 03/28/21 12/04/23 Rx subcutaneous syringe (Enbrel) ascorbate calcium (vitamin C) 500 500 mg PO DAILY 01/30/22 12/04/23 History mg tablet multivitamin 1 tablet PO DAILY 01/30/22 12/04/23 History metformin 500 mg tablet,extended 500 mg PO .QDCPM Meal #90 tabs 04/24/23 12/04/23 Rx release 24 hr atorvastatin 40 mg tablet 40 mg PO DAILY #90 tabs 10/17/23 12/04/23 Rx empagliflozin 25 mg tablet 25 mg PO QAM #90 tabs 10/17/23 12/04/23 Rx (Jardiance) glimepiride 4 mg tablet 4 mg PO BID #180 tabs 10/17/23 12/04/23 Rx insulin degludec 200 unit/mL (3 22 unit (0.11 mL) subcut QHS #9 mL 10/17/23 12/04/23 Rx mL) subcutaneous pen (Tresiba FlexTouch U-200 insulin) levothyroxine 100 mcg tablet 100 mcg PO QAM #90 tabs 10/17/23 12/04/23 Rx (Synthroid) metoprolol succinate 25 mg 25 mg PO DAILY #90 tabs 10/17/23 12/04/23 Rx tablet,extended release 24 hr omeprazole 40 mg capsule,delayed 40 mg PO DAILY #90 caps 10/17/23 12/04/23 Rx release potassium chloride 10 mEq 10 meq PO EVERY OTHER DAY #90 caps 10/17/23 12/04/23 Rx capsule,extended release telmisartan 40 1 tablet PO QAM #90 tabs 10/17/23 12/04/23 Rx mg-hydrochlorothiazide 12.5 mg tablet celecoxib 100 mg capsule (Celebrex) 100 mg PO BIDWMEAL #60 caps 11/11/23 12/04/23 Rx alcohol swabs 1 pad topical .COMPLEX #100 ea 11/21/23 12/04/23 Rx dulaglutide 3 mg/0.5 mL 3 mg (0.5 mL) subcut WEEKLY #6 mL 11/21/23 12/04/23 Rx subcutaneous pen injector (Trulicity) finasteride 5 mg tablet 5 mg PO DAILY #90 tabs 11/21/23 12/04/23 Rx lancets 28 gauge (FreeStyle #100 ea 11/21/23 12/04/23 Rx Lancets) pen needle, diabetic 32 gauge x #100 ea 11/21/23 12/04/23 Rx / (BD Lyudmila 2nd Gen Pen Needle) vitamin E 400 unit tablet 400 unit PO BID 11/21/23 12/04/23 History Patient hx anesthesia problems: none Family hx anesthesia problems: none Results Review: All pre-operative results and documents have been reviewed as part of the pre-operative evaluation. [facility] Past Medical History Medical History CAD (coronary artery disease) Cardiac pacemaker Cervical radiculopathy Colonic mass Diabetes mellitus Esophageal reflux Essential (primary) hypertension Fusion of spine, cervical region History of cardiac monitoring Hypertension Hypothyroidism, unspecified Infective otitis externa of left ear Kidney stone Male erectile dysfunction, unspecified Metabolic syndrome Mixed hyperlipidemia Obesity XOCHITL (obstructive sleep apnea) Primary generalized (osteo)arthritis Psoriatic arthropathy Symptomatic cholelithiasis TIA (transient ischemic attack) Type 2 diabetes mellitus with hyperglycemia Umbilical hernia without mention of obstruction or gangrene Surgical History Surgical History H/O heart artery stent 3 stents 2009 History of laparoscopic cholecystectomy 05/10/20 Hx of LASIK Hx of LASIK Hx of tonsillectomy S/P la
[2023-12-04 10:06] LABS: Glucose Point of Care 128 mg/dl (65-105)
--- NOTE | 2023-12-04 10:41 | PM.HPGS ---
History of Present Illness History of Present Illness Consent: Risks, benefits, and alternatives have been discussed and questions answered. Patient agrees to proceed with procedure. Chief complaint: hx colon polyps Narrative: Ced Mccracken is a 73 year old male with large polyp sigmoid that required sigmoidectomy 10/2022 Review of Systems Review of Systems: All systems reviewed & are unremarkable except as noted in HPI and below PMFSH Past Medical History Medical History CAD (coronary artery disease) Cardiac pacemaker Cervical radiculopathy Colonic mass Diabetes mellitus Esophageal reflux Essential (primary) hypertension Fusion of spine, cervical region History of cardiac monitoring Hypertension Hypothyroidism, unspecified Infective otitis externa of left ear Kidney stone Male erectile dysfunction, unspecified Metabolic syndrome Mixed hyperlipidemia Obesity XOCHITL (obstructive sleep apnea) Primary generalized (osteo)arthritis Psoriatic arthropathy Symptomatic cholelithiasis TIA (transient ischemic attack) Type 2 diabetes mellitus with hyperglycemia Umbilical hernia without mention of obstruction or gangrene Surgical History Surgical History H/O heart artery stent 3 stents 2009 History of laparoscopic cholecystectomy 05/10/20 Hx of LASIK Hx of LASIK Hx of tonsillectomy S/P laparoscopic colectomy laparoscopic sigmoid colectomy with colorectal anastomosis, da Yolanda assisted Status post colon resection Family History Family History Sibling Acute myocardial infarction Cerebrovascular accident Depression Carcinoma of colon Grandparent Diabetes mellitus Family history of cardiovascular disease Carcinoma of colon, Onset Age: 85 Father Hypertension Family history of cardiovascular disease Acute myocardial infarction, Onset Age: 72 Social History Social History Smoking packs per day: 1 Smoking cigarettes per day: 20.0 Years smoked: 9 Smoking pack-years: 9.00 Smoking status: Former smoker Tobacco type: cigarettes and pipe Second hand tobacco smoke exposure: Yes Smoking end date: 03/02/83 Alcohol intake: current Drinks per week: 1 Alcohol use details: Rarely Substance use: never Substance use type: does not use Do You Feel Safe in your Home?: Yes Lack of Transportation: No Lack of Food: Never True Current Housing: I Have Housing Concerned About Future Housing: No Difficulty Paying Gas/Electric Bills: No Difficulty Paying for Meds: No Currently Unemployed: No Education: Master's Degree or Higher Difficulty w/ Childcare or Family Care: No Living arrangements: with family Additional living arrangements comments: DAUGHTER Gender identity (if verbalized by the patient): Male Spiritual care concerns: No Meds Home Medications and Allergies Home Medications Medication Instructions Recorded Confirmed Type aspirin 81 mg tablet,delayed 81 mg PO QAM 08/10/19 12/04/23 History release (Adult Low Dose Aspirin) etanercept 50 mg/mL (1 mL) 50 mg subcut WEEKLY #13 mL 03/28/21 12/04/23 Rx subcutaneous syringe (Enbrel) ascorbate calcium (vitamin C) 500 500 mg PO DAILY 01/30/22 12/04/23 History mg tablet multivitamin 1 tablet PO DAILY 01/30/22 12/04/23 History metformin 500 mg tablet,extended 500 mg PO .QDCPM Meal #90 tabs 04/24/23 12/04/23 Rx release 24 hr atorvastatin 40 mg tablet 40 mg PO DAILY #90 tabs 10/17/23 12/04/23 Rx empagliflozin 25 mg tablet 25 mg PO QAM #90 tabs 10/17/23 12/04/23 Rx (Jardiance) glimepiride 4 mg tablet 4 mg PO BID #180 tabs 10/17/23 12/04/23 Rx insulin degludec 200 unit/mL (3 22 unit (0.11 mL) subcut QHS #9 mL 10/17/23 12/04/23 Rx mL) subcutaneous pen (Tresiba FlexTou
[2023-12-04 11:00] VITALS: BP 115/69; PULSE 71; RESP 16; O2SAT 99
[2023-12-04 11:10] VITALS: BP 116/72; PULSE 71; RESP 19; O2SAT 99
[2023-12-04 11:20] VITALS: BP 121/69; PULSE 73; RESP 13; O2SAT 99
[2023-12-04 11:28] LABS: Glucose Point of Care 98 mg/dl (65-105)
== END 2023-12-04 11:30 | disposition home or self-care (01) ==
PROVIDERS: PCP Family Medicine; Visit Provider Internal Medicine Gastroenterology
PROC: 0DJD8ZZ Inspection of Lower Intestinal Tract, Via Natural or Artificial Opening Endoscopic (ICD-10-PCS; CPT 45378; principal; 2023-12-04 11:00)
DX: Z12.11 Encounter for screening for malignant neoplasm of colon (principal); K51.40 Inflammatory polyps of colon without complications; K64.8 Other hemorrhoids; Z90.49 Acquired absence of other specified parts of digestive tract; Z98.0 Intestinal bypass and anastomosis status; I25.10 Atherosclerotic heart disease of native coronary artery without angina pectoris; E11.9 Type 2 diabetes mellitus without complications; I10 Essential (primary) hypertension; K21.9 Gastro-esophageal reflux disease without esophagitis; E03.9 Hypothyroidism, unspecified; E78.2 Mixed hyperlipidemia; L40.50 Arthropathic psoriasis, unspecified; G47.33 Obstructive sleep apnea (adult) (pediatric); Z86.73 Personal history of transient ischemic attack (TIA), and cerebral infarction without residual deficits; Z95.0 Presence of cardiac pacemaker; Z95.5 Presence of coronary angioplasty implant and graft; Z98.1 Arthrodesis status; Z79.82 Long term (current) use of aspirin; Z79.84 Long term (current) use of oral hypoglycemic drugs; Z79.4 Long term (current) use of insulin; Z79.85 Long-term (current) use of injectable non-insulin antidiabetic drugs; Z79.620 Long term (current) use of immunosuppressive biologic; Z87.891 Personal history of nicotine dependence; E66.9 Obesity, unspecified; Z68.28 Body mass index [BMI] 28.0-28.9, adult
CPT/HCPCS: 45385; 82948; 88305; J2704; J7120

== ENCOUNTER 2024-06-22 15:12 | Emergency (ER) | payer MEDICARE, OTHER, SELFPAY ==
[2024-06-22 15:16] VITALS: BP 123/52; PULSE 88; RESP 18; TEMP 36.6; O2SAT 99
--- NOTE | 2024-06-22 15:55 | ED.GENADULT ---
HPI - General Adult General Chief complaint: Unspecified Stated complaint: post op pain & wound black (penile implant) Time Seen by Provider: 06/22/24 15:32 History of Present Illness HPI narrative: patient is a 73-year-old male who presents ER with discoloration of his penis and testicles. He underwent an operation last week to have a circumcision and have a penile pump implanted. He has developed significant bruising of the left groin moving into the penile shaft and into the testicles. His penis feels that by wrecked. No fevers or chills or sweats. He is able to urinate. He does not yet have follow-up with Urology. Related Data Home Medications Medication Instructions Recorded Confirmed aspirin 81 mg tablet,delayed 81 mg PO QAM 08/10/19 04/15/24 release (Adult Low Dose Aspirin) insulin lispro 100 unit/mL 6 unit subcut USEASDIRECTD 03/20/24 04/15/24 subcutaneous pen Allergies Allergy/AdvReac Type Severity Reaction Status Date / Time atropine Allergy Severe DECREASED Verified 04/15/24 12:22 HR meloxicam AdvReac Mild Dizziness Verified 04/15/24 12:22 Review of Systems Constitutional: Constitutional: Reports no additional constitutional complaints Cardiovascular: Cardiovascular: Reports no additional cardiovascular complaints Respiratory: Respiratory: Reports no additional respiratory complaints Genitourinary: Genitourinary: Denies penile discharge, Reports scrotal swelling, Denies testicular pain, Denies urinary frequency, Denies urinary hesitancy and Reports other ( Penis bruising) [facility] Past Medical History Medical History CAD (coronary artery disease) Cardiac pacemaker Cervical radiculopathy Colonic mass Diabetes mellitus Esophageal reflux Essential (primary) hypertension Fusion of spine, cervical region History of cardiac monitoring Hypertension Hypothyroidism, unspecified Infective otitis externa of left ear Kidney stone Male erectile dysfunction, unspecified Metabolic syndrome Mixed hyperlipidemia Obesity XOCHITL (obstructive sleep apnea) Primary generalized (osteo)arthritis Psoriatic arthropathy Symptomatic cholelithiasis TIA (transient ischemic attack) Type 2 diabetes mellitus with hyperglycemia Umbilical hernia without mention of obstruction or gangrene Surgical History Surgical History H/O heart artery stent 3 stents 2009 History of laparoscopic cholecystectomy 05/10/20 Hx of LASIK Hx of LASIK Hx of tonsillectomy S/P laparoscopic colectomy laparoscopic sigmoid colectomy with colorectal anastomosis, da Yolanda assisted S/P lumbar laminectomy (~02/2024) Status post colon resection Family History Family History Sibling Acute myocardial infarction Cerebrovascular accident Depression Carcinoma of colon Grandparent Diabetes mellitus Family history of cardiovascular disease Carcinoma of colon, Onset Age: 85 Father Hypertension Family history of cardiovascular disease Acute myocardial infarction, Onset Age: 72 Social History Social History Smoking packs per day: 1 Smoking cigarettes per day: 20.0 Years smoked: 9 Smoking pack-years: 9.00 Smoking status: Former smoker Tobacco type: cigarettes and pipe Second hand tobacco smoke exposure: Yes Smoking end date: 03/02/83 Alcohol intake: current Drinks per week: 1 Alcohol use details: Rarely Substance use: never Substance use type: does not use Do You Feel Safe in your Home?: Yes Lack of Transportation: No Lack of Food: Never True Current Housing: I Have Housing Concerned About Future Housing: No Difficulty Paying Gas/Electric Bills: No Difficulty Paying for Meds: No Currently Unemployed: No Education: Master's Degree or Higher Difficulty w/ Child
--- NOTE | 2024-06-22 16:10 | WPDURCON ---
Assessment and Plan Assessment and plan (1) Postoperative pain: Code(s): G89.18 - Other acute postprocedural pain Status: Acute (2) Extensive postoperative bruising: Status: Acute Plan I deflated the implant. This relieved some pain. I provided reassurance stent in his life this in a postoperative bruising was normal. There is no signs of infection. They seem satisfied and will be discharged home Urology Consult Note HPI Date Seen: 06/22/24 Primary Care Provider: Maryann Jiménez, Consult Narrative Narrative: Ced Mccracken is a 73 year old male. Who is status post inflatable penile implant on of last week. He he was in the ER yesterday at all no more ill for penile pain and swelling. I spoke to the ER doctor there. He appeared to be having a normal postoperative course and he was sent home in stable condition. He returns to the ER today still complaining of pain and swelling. I spoke with Dr. Posadas who performed the procedure. It was uncomplicated procedure. He was left partially tumescent at the conclusion to provide tamponade. He is able to void. He has had no fevers but his states he has had a temperature at home of 99. There is no drainage or discharge Review of Systems Review of Systems: All systems reviewed & are unremarkable except as noted in HPI and below PMFSH Past Medical History Medical History CAD (coronary artery disease) Cardiac pacemaker Cervical radiculopathy Colonic mass Diabetes mellitus Esophageal reflux Essential (primary) hypertension Fusion of spine, cervical region History of cardiac monitoring Hypertension Hypothyroidism, unspecified Infective otitis externa of left ear Kidney stone Male erectile dysfunction, unspecified Metabolic syndrome Mixed hyperlipidemia Obesity XOCHITL (obstructive sleep apnea) Primary generalized (osteo)arthritis Psoriatic arthropathy Symptomatic cholelithiasis TIA (transient ischemic attack) Type 2 diabetes mellitus with hyperglycemia Umbilical hernia without mention of obstruction or gangrene Surgical History Surgical History H/O heart artery stent 3 stents 2009 History of laparoscopic cholecystectomy 05/10/20 Hx of LASIK Hx of LASIK Hx of tonsillectomy S/P laparoscopic colectomy laparoscopic sigmoid colectomy with colorectal anastomosis, da Yolanda assisted S/P lumbar laminectomy (~02/2024) Status post colon resection Family History Family History Sibling Acute myocardial infarction Cerebrovascular accident Depression Carcinoma of colon Grandparent Diabetes mellitus Family history of cardiovascular disease Carcinoma of colon, Onset Age: 85 Father Hypertension Family history of cardiovascular disease Acute myocardial infarction, Onset Age: 72 Social History Social History Smoking packs per day: 1 Smoking cigarettes per day: 20.0 Years smoked: 9 Smoking pack-years: 9.00 Smoking status: Former smoker Tobacco type: cigarettes and pipe Second hand tobacco smoke exposure: Yes Smoking end date: 03/02/83 Alcohol intake: current Drinks per week: 1 Alcohol use details: Rarely Substance use: never Substance use type: does not use Do You Feel Safe in your Home?: Yes Lack of Transportation: No Lack of Food: Never True Current Housing: I Have Housing Concerned About Future Housing: No Difficulty Paying Gas/Electric Bills: No Difficulty Paying for Meds: No Currently Unemployed: No Education: Master's Degree or Higher Difficulty w/ Childcare or Family Care: No Living arrangements: with family Additional living arrangements comments: DAUGHTER Gender identity (if verbalized by the patient): Male Spiritual care concerns: N
[2024-06-22 16:32] VITALS: BP 135/70; PULSE 84; RESP 16; TEMP 36.4; O2SAT 99
== END 2024-06-22 16:35 | disposition home or self-care (01) ==
LOC: ANHED 16:27
PROVIDERS: Emergency Provider Emergency Medicine; PCP Family Medicine
DX: G89.18 Other acute postprocedural pain (principal); S30.21XA Contusion of penis, initial encounter; S30.22XA Contusion of scrotum and testes, initial encounter; I25.10 Atherosclerotic heart disease of native coronary artery without angina pectoris; Z95.0 Presence of cardiac pacemaker; E11.9 Type 2 diabetes mellitus without complications; K21.9 Gastro-esophageal reflux disease without esophagitis; I10 Essential (primary) hypertension; M19.90 Unspecified osteoarthritis, unspecified site; Z79.4 Long term (current) use of insulin; X58.XXXA Exposure to other specified factors, initial encounter
CPT/HCPCS: 99282

== ENCOUNTER 2024-10-20 13:58 | Outpatient (CLI) | payer MEDICARE, OTHER, SELFPAY ==
--- NOTE | ~2024-10-20 | CT_ITS ---
Non-contrast Head CT History: Memory changes Technique: Axial non-contrast imaging of the brain was performed. Dose reduction technique was used on this scan by utilizing automated exposure control and iterative reconstruction technique. The dose -length product (DLP) was 599.57 mGy-cm. Findings: There is no evidence of intracranial hemorrhage, mass lesion, or acute infarct. Brain par enchyma appears normal. The ventricles and subarachnoid spaces are normal in size. The calvarium ap pears normal. The visualized paranasal sinuses and mastoid air cells are clear. Impression: No significant abnormality seen. Reviewed, dictated and finalized at location . [facility] [employer] Impression: No significant abnormality seen.
== END 2024-10-20 13:59 | disposition home or self-care (01) ==
LOC: MICIMG 13:58
PROVIDERS: PCP Family Medicine; Visit Provider Family Medicine
DX: R41.3 Other amnesia (principal)
CPT/HCPCS: 70450

== ENCOUNTER 2024-11-16 00:09 | Day surgery (SDC) | payer MEDICARE, OTHER, SELFPAY ==
--- OUTSIDE RECORDS SUMMARY | 2024-11-12 00:11 | XMS_ITS | Encounter Summary ---
Author Organization [facility] Healthcare Address [address] [place] [address] Care Team Providers Care Hardening Machine Operator Helper Name Role Phone Maryann Jiménez DO Primary Care Provider + Jose David Betancourt MD Unavailable [phone] Reason for Referral * Procedure (Routine) - Pending Review Specialty Diagnoses / Procedures Referred By Contac t Referred To Contact Cardiology Diagnoses Cardiovascular stress test abnormal Coronary arteriosclerosis in [place] artery Jatinder Jones MD [address] [address] Phone: tel: fax: [facility] Medical [facility] Cardiology [address] [address] [place] [address] Phone: tel: fax: Referral ID Status Reason Start Date Expiration Date Visits Requested Visits Authorized [id number] Pending Review Specialty Services Required 10/28/2024 11/27/2025 1 1 Scheduling Instructions PROCEDURE/TEST ORDERED: [facility] LOCATION: DATE OF SERVICE: 11/12 INSURANCE: [facility] medicare DIAGNOSIS:abnormal stress test ORDERING PROVIDER:DAKOTA (Scheduled with W[facility]) ADDITIONAL DETAILS: Question Answer Please select the performing region: [facility] Medical Group [[id number]] Please select the performing department: [facility] MRYVL [[id number]] # of visits: 1 RESSIONAL AIDE Reason for Visit * Reason Onset Date Comments r/s [facility] 10/28/2024 Encounter Details Date Type Department Care Team (Late st Contact Info) Description 10/28/2024 Telephone [facility] Medical Group Cardiology [address] [place] [address] Jatinder Jones MD [address] [address] r/s [facility] Social History Tobacco Use Types Packs/Day Years Used Date Smoking Tobacco: Former Cigarettes Q uit: 04/28/1983 Smokeless Tobacco: Never Comments:quite smoking 1982 Alcohol Use Standard Drinks/Week Comments Yes 0 (1 standard drink = 0.6 oz pur e alcohol) [facility] Utilities Answer Date Recorded In the past 12 months has [employer], gas, oil, or water company threatened to shut off services in your home? No 02/12/2024 Social Connection and Isolat ion Panel [NHANES] Answer Date Recorded In a typical week, how many times do you talk on the phone with family, friends, or neighbors? More than three times a week 02/12/2024 How often do you get togethe r with friends or relatives? Twice a week 02/12/2024 How often do you attend chur ch or rastafari services? 1 to 4 times per year 02/12/2024 Do you belong to any clubs o r organizations such as rastafarian groups, unions, fraternal or athletic groups, or school groups? No 02/12/2024 How often do you attend meet ings of the clubs or organizations you belong to? 1 to 4 times per year 02/12/2024 Are you , , di vorced, , never , or living with a partner? 02/12/2024 AUDIT-C Answer Date Recorded Q1: How often do you have a drink containing alcohol? Never 08/17/2024 Q2: How many drinks containi ng alcohol do you have on a typical day when you are drinking? Patient does not drink Q3: How often do you have si x or more drinks on one occasion? Never 08/17/2024 Overall Financial Resource Strain (CARDIA) Answe r Date Recorded How hard is it for you to pa y for the very basics like food, housing, medical care, and heating? Not hard at all 02/12/2024 PHQ-2 Answer Date Recorded PHQ-2 Total Score (If total score is 3 or more points, staff should administer the PHQ-9) 0 08/17/2024 Hunger Vital Sign Answer Date Recorded Within the past 12 months, y ou worried that your food would run out before you got the money to buy more. Never true 02/12/20 24 Within the past 12 months, t he food you bought just didn't last and you didn't have money to get more. Never true 02/12/2024 PRAPARE - Transportation Answer Date Re corded In the past 12 months, has l ack of transportation kept you from medical appointments or from getting medications? No 01/31 In the past 12 months, has l ack of transportation kept you from meetings, work, or from getting things needed for daily living? No 02/12/2024 Housing Stability Vital Sign Answer Dean e Recorded In the last 12 months, was t here a time when you were not able to pay the mortgage or rent on time? No 02/12/2024 In the past 12 months, how m any times have you moved where you were living? 1 02/12/2024 At any time in the past 12 m [facility], were you homeless or living in a assisted (including now)? No 02/12/2024 Personal Safety Answer Date Recorded Have you ever been in or are you currently in a harmful physical or emotional relationship or is someone making you feel afraid or unsafe? Denies 06/21/2024 Sex and Gender Information Value Date Recorded Sex Assigned at Not on file Legal Sex Male 3:55 AM CONGRESSIONAL AIDE Gender Identity Male 01/23/2020 12:25 AM CDT Sexual Orientation Straight 01/23/2020 12 :25 AM CDT documented as of this encounter Miscellaneous Notes * Telephone Encounter - Mitali Valle RN - 11/11/2024 4:32 PM CDT Procedure cancelled for tomorrow due to no insurance authorization. Pt aware, will reschedule procedure tomorrow since scheduling is already gone for today. Will forward to [facility] as FYI. * Telephone Encounter - Colleen Gonzalez - 11/11/2024 3:41 PM CDT Aneta w/ [facility] called again stating they still have not received a PA for the pts cath tomorrow morning at 8:30. She said that if the PA cannot be obtained [facility] the chest center must be notified so they can get the cath canceled. Please advise. Thank you. Contact: * Telephone Encounter - Zoe Luis - 11/11/2024 11:33 AM CDT [facility] called to report that there is still no PA on file for the cath scheduledtomorrow. She said cath will need to be cancelled if we do not get PA by 2:30 pm today. Contact: * Telephone Encounter - Colleen Gonzalez - 11/11/2024 9:27 AM CDT Antonio becker/ [facility] requesting a call back to follow up on the PA for the code [id number] for tomorrow. Please advise. Thank you. Contact: * Telephone Encounter - Mitali Valle RN - 11/10/2024 9:06 AM CDT Will forward to Min. * Telephone Encounter - Colleen Gonzalez - 11/10/2024 8:34 AM CDT Lewis becker/ [facility] called wanting to follow up on the PA for code [id number] for 11/12. Please Advise. Thank you. Contact: * Telephone Encounter - Zoe Luis - 11/09/2024 12:14 PM CDT Jacob bakari [facility] pre arrival states PA is required for LHC on 11/12. Contact: * Telephone Encounter - Jatinder Pearson RN - 11/02/2024 10:47 AM CONGRESSIONAL AIDE Spoke with pt. Pt states that he would be willing to move LHC sooner if an opening comes available.Advised pt that I would keep an eye out for any cancellations and notify him if something sooner comes available. Pt verbalizes understanding. RESSIONAL AIDE * Telephone Encounter - Nat Lynch - 11/02/2024 10:38 AM CST Pt calling to r/s LHC. Please advise. Thank you. Contact [phone] RESSIONAL AIDE * Telephone Encounter - Mitali Valle RN - 10/28/2024 2:56 PM CONGRESSIONAL AIDE Images from the original note were not included. Spoke with pt, reviewed result note below from [facility]. Pt verbalizes understanding. Pt scheduled for LHC at with [facility] on 11/12 at 0830. Instructions reviewed with pt, written instructions provided. Pt verbalizes understanding. Advised to call with any questions or concerns. Will forward to [facility] and [facility] as FYI. 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 Would recommend a coronary angiogram to redefine his coronary anatomy at this stage RESSIONAL AIDE RESSIONAL AIDE documented in this encounter Plan of Treatment Scheduled Referrals Name Type Priority Associated Diagnoses Orde r Schedule Ambulatory referral to Cardiology Outpatient Referral Routine Cardiovascular stress test abnormal Coronary arteriosclerosis in [place] artery Expected: 11/11/2024 (Approximate), Expires: 10/28/2025 documented as of this encounter Goals Goal Patient Goal Type Associated Problems Recent Progress Patient-Stated? Author [facility](01/2021 2:46 PM CDT) Flor Guzman, TOÑO Note: Play golf with minimal to no relief. documented as of this encounter Visit Diagnoses Diagnosis Cardiovascular stress test abnormal- Primary Coronary arteriosclerosis in [place] artery documented in this encounter Care Teams Hardening Machine Operator Helper Relationship Specialty Start Date End Date Maryann Jiménez DO PCP - General Family Medicine 07/03/22 Jose David Betancourt MD [address] [facility] [address] [address] [place] [address] Consulting Physician Urology 06/19/24 documented as of this encounter
--- OUTSIDE RECORDS SUMMARY | 2024-11-12 00:11 | XMS_ITS | Encounter Summary ---
Author Organization [facility] Healthcare Address [address] [place] [address] Care Team Providers Care Lead Teacher Name Role Phone Maryann Jiménez DO Primary Care Provider + Jose David Betancourt MD Unavailable [phone] Encounter Details Date Type Department Care Team (Late st Contact Info) Description 10/28/2024 Results Follow-Up [facility] Medical Group Cardiology at [address] [place] [address] Jatinder Jones MD [address] [address] Social History Tobacco Use Types Packs/Day Years Used Date Smoking Tobacco: Former Cigarettes Q uit: 04/28/1983 Smokeless Tobacco: Never Comments:quite smoking 1982 Alcohol Use Standard Drinks/Week Comments Yes 0 (1 standard drink = 0.6 oz pur e alcohol) [facility] Utilities Answer Date Recorded In the past 12 months has [employer], gas, oil, or water [employer] threatened to shut off services in your [...] 02/12/2024 How often do you attend chur or methodist services? 1 to 4 times per year 02/12/2024 Do you belong to any clubs o r organizations such as episcopalian groups, unions, fraternal or athletic groups, or [...] any time in the past 12 m [facility], were you homeless or living in a half-way (including now)? No 02/12/2024 Personal Safety Answer Date Recorded Have you ever been in or are you currently in a harmful physical or emotional relationship or is someone making you feel afraid or unsafe? Denies 06/21/2024 Sex and Gender Information Value Date Recorded Sex Assigned at Not on file Legal Sex Male 3:55 AM COMFORT ADVISOR Gender Identity Male 01/23/2020 12:25 AM CDT Sexual Orientation Straight 01/23/2020 12 :25 AM CDT documented as of this encounter Plan of Treatment Not on file documented as of this encounter Goals Goal Patient Goal Type Associated Problems Recent Progress Patient-Stated? Author [facility](01/2021 2:46 PM CDT) Flor Guzman, RN Note: Play golf with minimal to no relief. documented as of this encounter Visit Diagnoses Not on filedocumented in this encounter Care Teams Lead Teacher Relationship Specialty Start Date End Date Maryann Jiménez DO PCP - General Family Medicine 07/03/22 Jose David Betancourt MD [address] [address] Consulting Physician Urology 06/19/24 documented as of this encounter
--- OUTSIDE RECORDS SUMMARY | 2024-11-12 00:12 | XMS_ITS | Clinical Summary ---
Author Organization [facility] Address [address] [place] [id number] Care Team Providers Care Tamper Operator Name Role Phone Maryann Jiménez DO Primary Care Provider + Jose David Betancourt MD Unavailable [phone] Allergies Active Allergy Reactions Criticality Noted Date Comments Atropine Palpitations Low 01/02/2010 Patient states that it causes heartrate to decrease, not increase. Codeine Mental status changes Low 04/12/2009 Meloxicam Dizziness Low 11/13/2023 Oxycodone Mental status changes Low 07/11/2023 Medications empagliflozin (JARDIANCE) 25 mg tabletIndicatio ns:type 2 diabetes mellitus Take 1 tablet (25 mg total) by mouth every morning Active omeprazole (PriLOSEC) 40 mg capsule Take 1 capsule (40 mg total) by mouth every morning Active metoprolol XL (TOPROL-XL) 25 mg 24 hr tablet Take 1 tablet (25 mg total) by mouth every morning 9 Active telmisartan-hyd rochlorothiazid (MICARDIS HCT) 40-12.5 mg per tablet Take 1 tablet by mouth every morning Active atorvastatin (LIPITOR) 40 mg tablet Take 1 tablet (40 mg total) by mouth every other day At night 2 Active potassium chloride ER 10 mEq CR capsule Take 1 tablet/capsule (10 mEq total) by mouth every morning 2 Active BD Lyudmila 2nd Gen Pen Needle 32 gauge x 5/32 needle 4 Active albuterol HFA (PROVENTIL HFA,VENTOLIN HFA,PROAIR HFA) 90 mcg/actuation inhaler Inhale 1-2 puffs every 6 (six) hours as needed for wheezing 1 each 4 05/04/20 25 Active aspirin 81 mg enteric coated tablet Take 1 tablet (81 mg total) by mouth every morning Active finasteride (PROSCAR) 5 mg tablet Take 1 tablet (5 mg total) by mouth every morning Active insulin lispro (HumaLOG, ADMELOG) 100 unit/mL pen for injection Inject 6-12 Units under the skin 4 (four) times a day Active levothyroxine (SYNTHROID) 100 mcg tablet Take 1 tablet (100 mcg total) by mouth slitter scorer before breakfast Active metFORMIN (GLUCOPHAGE) 1,000 mg tablet Take 1 tablet (1,000 mg total) by mouth daily with breakfast Active insulin degludec (TRESIBA) 100 unit/mL (3 mL) pen for injection Inject 0.22 mL (22 Units total) under the skin nightly Active EnbreL SureClick 50 mg/mL (1 mL) pen injector INJECT 50 MG (1 ML) UNDER THE SKIN EVERY 7 DAYS 12 mL 1 4 Active dulaglutide (Trulicity) 3 mg/0.5 mL pen injector Inject 0.5 mL (3 mg total) under the skin once a week 6 mL 2 4 Active Active Problems Problem Noted Date Diagnosed Date Erectile dysfunction due to arterial insufficien cy 04/20/2024 Phimosis 04/20/2024 S/P laminectomy 02/11/2024 Spondylosis of lumbar region without myelopathy or radiculopathy 12/16/2023 Spinal stenosis of lumbar re gion with neurogenic claudication 11/13/2023 Radiculopathy, lumbosacral region 11/13/2023 Polyarticular psoriatic arthritis 07/11/2023 Assessment & Plan (06/01/2024 12:03 PM CDT): Stable on enbrel, continue same. Labs today, Follow up in 6 months and prn. Encounter for long-term (cur rent) use of high-risk medication 07/11/2023 Assessment & Plan (06/01/2024 12:03 PM CDT): Long-term use of high-risk medication requiring regular monitoring. Labs ordered, no s/s of med tox or infection. Encouraged to work with PCP to make sure all recommended cancer screens and vaccinations are complete. Avoid live-vaccines unless reviewed with corporate wellness coordinator first. Insomnia secondary to chronic pain 01/05/2021 Degenerative disc disease, cervical 02/10/2020 Cervical myofascial pain syndrome 02/10/2020 Cervical radiculopathy 02/10/2020 Hypertriglyceridemia 08/17/2019 Palpitations 08/17/2019 Hypertension associated with diabetes 08/07/2017 Disease of thyroid gland 08/07/2017 Diabetes mellitus 08/07/2017 Assessment & Plan (08/17/2024 11:11 AM DIRECTOR DIGITAL): Chronic, worsening. Restart Trulicity 3 mg weekly Continue Tresiba, 20 units daily at bedtime Take Humalog, 12 units before meals. Try to cut back on carbs, e.g. bread , potatoes, pasta; eat more green vegetables, and lean protein, eat more chicken and fish. Try to get a 30 min daily walk. Assessment & Plan (03/31/2024 4:42 PM CDT): Chronic, stable. Will try to start Ozempic, since Trulicity is not available Continue metformin, I just want 1000 mg in the. Continue Jardiance 25 mg daily Continue Tresiba 20 units daily and Humalog 6 units plus correction scale a.c. Assessment & Plan (01/16/2024 12:14 PM CDT): Chronic, uncontrolled Importance of diet and exercise was discussed Exercises limited due to pain Advised to try not to eat more than to 3 carbs per meal and cut on rapid absorption carbohydrates Start monitoring BG with a Freestyle Brenda 3 sensor Tresiba, 25 units at bedtime Humalog ( or any meal time insulin) , 6 units before each meal ( for sugars under 100, eat first and then take the 6 units ) For sugars over 160, take 7 units For sugars over 190 take 8 units For sugars over 220 take 9 units For sugars over 250 take 10 units For sugars over 280 take 11 units At bedtime: For sugars over 180, take 4 units For sugars over 220, take 5 units For sugars over 260, take 6 units Stop Glimepiride Stay on Metformin , Jardiance and Trulicity Send me a message via [employer] every week, so we can look at your sugars data Hyperlipidemia associated with type 2 diabetes m abram 02/05/2017 Assessment & Plan (03/31/2024 4:40 PM CDT): Chronic, stable. Continue statin therapy with atorvastatin. Update lipid profile Syncope and collapse 11/06/2016 Overview (01/25/2017): Syncope and collapse Surgical follow-up care 11/05/2016 Degenerative cervical spinal stenosis 08/29/2016 Hemorrhage of rectum and anus 08/10/2016 Internal hemorrhoids 08/10/2016 Obesity with body mass index 30 or greater 08/01 Hemorrhoids 04/02/2016 Hypothyroidism 09/28/2015 Overview (12/08/2016): Hypothyroidism, unspecified type Hyperlipidemia 09/28/2015 Overview (12/08/2016): Hyperlipidemia LDL goal <70 Obstructive sleep apnea syndrome 09/28/2015 Overview (12/08/2016): XOCHITL (obstructive sleep apnea) Diabetic dyslipidemia associ ated with type 2 diabetes mellitus 09/28/2015 Overview (12/08/2016): Hyperlipidemia associated with type 2 diabetes mellitus History of syncope 09/28/2015 Overview (12/08/2016): History of syncope Essential hypertension 09/28/2015 Overview (12/08/2016): Essential hypertension Coronary arteriosclerosis in [place] artery 09/28 Overview (12/08/2016): Coronary artery disease involving [place] coronary artery of [place] heart without angina pectoris Arthralgia of shoulder 09/04/2013 Chronic purulent otitis media 07/14/2013 Overview (12/07/2016): CHR SUP OTITIS MEDIA NOS Neural hearing loss, bilateral 07/14/2013 Overview (12/08/2016): Neural Hearing Loss Bilat Brachial neuritis 02/03/2013 Cervicalgia 02/02/2013 Lumbago 01/30/2013 Encounters Date Type Department Care Team Description 10/28/2024 Telephone [facility] Card[facility] [address] [place] [phone] Matthew Gustafson MD r/s [facility] 10/28/2024 Results Follow-Up [facility] at [address] [place] [phone] Matthew Gustafson MD 10/26/2024 10:15 AM DIRECTOR DIGITAL Ancillary Procedure [facility] [address] [place] [address] Coronary arteriosclerosis in [place] artery; Hyperlipidemia associated with type 2 diabetes mellitus (HCC); Hypertension associated with diabetes (HCC) 10/07/2024 Telephone [facility] Cardiology [address] [place] [phone] Matthew Gustafson MD 08/17/2024 11:30 AM DIRECTOR DIGITAL Office Visit [facility] [address] [place] [phone] Alireza Clark MD Type 2 diabetes mellitus with hyperglycemia, with long-term current use of insulin (HCC) (Primary Dx) from Last 3 Months Immunizations Immunization Administration Dates Next Due Influenza, Quadrivalent, Hig h Dose, Preservative Free, Intrr 06/08/2022,05/11/2020 Influenza, Trivalent, Adjuva nted, Intramuscular 05/03/2024 Influenza, Trivalent, High D ose, Split, Preservative Free, Intramuscular 05/18/2019,05/14/2018,05/28/2017 Influenza, Trivalent, IM (MDV) 05/25/2016 Influenza, Trivalent, Preser vative Free, Intramuscular 06/11/2015 Pfizer SARS-CoV-2 Monovalent Vaccination (12+ Yrs) PURPLE 05/16/2021,04/25/2021 Pfizer Sars-Cov-2 Bivalent V accination (12+ YRS) 08/10/2022 Pneumococcal Conjugate PCV 13 05/25/2016 Surgical History Surgery Date Site/Laterality Comments INSERT / REPLACE / REMOVE PACEMAKER 09/02/1988 - 09/01/1989 Tyler - battery is , does not work, opted to not have it removed LAPAROSCOPIC CHOLECYSTECTOMY 04/02/2020 - 05/02/2020 UMBILICAL HERNIA REPAIR 04/02/2020 - 05/02/2020 COLECTOMY 10/16/2022 ROTATOR CUFF REPAIR 07/03/2023 Right CHOLECYSTECTOMY 04/2020 LASIK 09/02/2002 - 09/01/2003 TONSILLECTOMY 09/02/1999 - 09/01/2000 CERVICAL FUSION 09/02/2000 - 09/01/2001 C4-5 COLONOSCOPY 2006, 2013, 2016, 2021, 2023 CARDIAC STENT PLACEMENT 01/31/2010 - 03/01/2010 x3 HEMORROIDECTOMY 2015, 2016 CARDIAC SURGERY 09/02/2016 - 09/01/2017 Loop recorder, Dr Anand LUMBAR LAMINECTOMY 02/01/2024 - 03/01/2024 Medical History Medical History Date Comments Hx Other Medical CAD, HTN, VVsyn cope, BPH, DMT2, GERD, hypoT4, DJD,; Comments: MAF 09/28/2015 - Neck pain Extremity pain Chronic pain disorder Arthritis Psoriatic Diabetes mellitus (HCC) Hypertension Psoriasis Psoriatic arthritis (HCC) PONV (postoperative nausea and vomiting) Motion sickness GERD (gastroesophageal reflux disease) Type 2 diabetes mellitus (HCC) Hypothyroidism Hyperlipidemia Family History Medical History Relation Name Comments Heart attack Brother Stroke Brother Drug abuse Father Eugenia Shultz Hearing loss Father Eugenia Shultz Hearing disorde r; Heart attack Father Eugenia Shultz Heart disease Father Eugenia Shultz Kidney disease Father Eugenia Shultz COPD Maternal Grandfather Remington Pina Heart disease Maternal Grandfather Remington Pina Heart disease; Mental illness Maternal Grandmother Amraquel Pina Alcohol abuse Mother Emily Shultz Heart attack Mother Emily Shultz Myocardial infa rction; Liver disease Mother Emily Shultz COPD Paternal Grandfather Bethelnatalie Shultz Heart disease Paternal Grandfather Bethelnatalie Shultz Heart disease; Cancer Paternal Grandmother Margarita Kaykay Diabetes Paternal Grandmother Margarita [place] Relation Name Status Comments Brother Father Eugenia Shultz Maternal Grandfather Remingtonjonah Pina Maternal Grandmother Amantheus Yovani Mother Emily Shultz Paternal Grandfather Bethel Shultz Paternal Grandmother Margarita Shultz Social History Tobacco Use Types Packs/Day Years Used Date Smoking Tobacco: Former Cigarettes Q uit: 04/28/1983 Smokeless Tobacco: Never Tobacco Cessation:Counseling Given: Not Answered Comments:quite smoking 1982 Alcohol Use Standard Drinks/Week Comments Yes 0 (1 standard drink = 0.6 oz pur e alcohol) [facility] Utilities Answer Date Recorded In the past 12 months has e electric, gas, oil, or water company threatened [...] often do you attend chur ch or anabaptism services? 1 to 4 times per year 02/12/2024 Do you belong to any clubs o r organizations such as mandaen groups, unions, fraternal or athletic groups, or [...] any time in the past 12 m [facility], were you homeless or living in a custodial (including now)? No 02/12/2024 Personal Safety Answer Date Recorded Have you ever been in or are you currently in a harmful physical or emotional relationship or is someone making you feel afraid or unsafe? Denies 06/21/2024 Sex and Gender Information Value Date Recorded Sex Assigned at Not on file Legal Sex Male 3:55 AM DIRECTOR DIGITAL Gender Identity Male 01/23/2020 12:25 AM CDT Sexual Orientation Straight 01/23/2020 12 :25 AM CDT Obstetrics History Last Filed Vital Signs Vital Sign Reading Time Taken Comments Blood Pressure 122/70 08/17/2024 10:39 AM DIRECTOR DIGITAL Pulse 68 08/17/2024 10:39 AM DIRECTOR DIGITAL Temperature 36.9 C (98.5 F) 08/17/2024 10:39 AM DIRECTOR DIGITAL Respiratory Rate 14 08/17/2024 10:39 AM DIRECTOR DIGITAL Oxygen Saturation 95% 07/10/2024 2:46 PM DIRECTOR DIGITAL Inhaled Oxygen Concentration - - Weight 93.1 kg (205 lb 3.2 oz) 08/17/2024 10:39 AM DIRECTOR DIGITAL Height 170.2 cm (5' 7 ) 08/17/2024 10:39 AM DIRECTOR DIGITAL Body Mass Index 32.14 08/17/2024 10:39 AM DIRECTOR DIGITAL Plan of Treatment Health Maintenance Due Date Last Done Comments Colon Cancer Screening-Colonoscopy 1950 Hepatitis C Screening 1950 Dilated Eye Exam 1950 Foot Exam 1950 DTaP/Tdap/Td Vaccine (1 - Tdap) 1961 Hepatitis B Screening 1968 Zoster Vaccine (1 of 2) 2000 Abdominal Aortic Aneurysm (A AA) Screen 2015 Well Visit 65+ 2015 Pneumococcal vaccine 65+ (2 of 2 - PPSV23) 07/20/2016 05/25/2016 Covid-19 Vaccine (4 - 2023-2 5 season) 2024 08/10/2022, 05/16/2021, 04/25/2021 Hemoglobin A1C 02/15/2025 08/17/2024, 05/04, 03/31/2024, Additional history exists Albumin Creatinine Ratio, Urine 04/01/2025 Lipid Panel 04/01/2025 04/01/2024, 12/31, 11/29/2021, Additional history exists eGFR 06/21/2025 06/21/2024, 06/02, 05/25/2024, Additional history exists Depression Screening 08/17/2025 08/17/2024, 01/05/2022, 02/10/2020, Additional history exists Fall Risk Assessment 08/17/2025 08/17/2024, 06/19/2024, 01/05/2022 Influenza Vaccine Completed 05/03/2024, , 05/11/2020, Additional history exists Goals Goal Patient Goal Type Associated Problems Recent Progress Patient-Stated? Author BH-Pain Behavioral Health Worsening(01/2021 2:46 PM CDT) No Flor Lewis, RN Note: Play golf with minimal to no relief. Medical Devices Implanted Type Area Tissue Inserter Device Identifier Shelf Expiration Date Model / Serial / Lot [employer] Liyah Ams 700 Kit Accessory Penile Prosthesis [id number] - [id number] Implanted:Qty: 1 on 06/18/2024 by Jose David Betancourt MD at [facility] N/A: Groin [employer]yah [id number] 04/08/2029 [id number] / / [id number] Active [employer] Liyah Ams Spectra 12/14mm .5cm Cylinder Concealable Malleable Rear Tip [id number] - [id number] Implanted:Qty: 1 on 06/18/2024 by Jose David Betancourt MD at [facility] N/A: Penis [employer]yah [id number] 02/15/2029 [id number] / / [id number] [employer] Liyah Ams 700 Preconnect 1 Ms Pump 2 Cylinder Penoscrotal Prosthesis [id number] - [id number] Implanted:Qty: 1 on 06/18/2024 by Jose David Betancourt MD at [facility] N/A: Penis [employer] Liyah [id number] 10/13/2025 [id number] / / [id number] [employer] Liyah Conceal Low Profile [place] 100ml Prosthesis Inhibizone Sterile Latex Free [id number] - [id number] Implanted:Qty: 1 on 06/18/2024 by Jose David Betancourt MD at [facility] Left: Pelvis [employer] Liyah [id number] 04/22/2026 [id number] / / [id number] Procedures Procedure Name Priority Date/Time Associated Diagnosis Comments NM MPI SPECT (REST AND/OR STRESS) MULTIPLE STUDIES Schedule Routine, Read Routine (OP Routine) 10/26/2024 12:55 PM DIRECTOR DIGITAL Coronary arteriosclerosis in [place] artery Hyperlipidemia associated with type 2 diabetes mellitus (HCC) Hypertension associated with diabetes ([facility]) POCT GLUCOSE Routine 08/17/2024 10:40 AM DIRECTOR DIGITAL Type 2 diabetes mellitus with hyperglycemia, with long-term current use of insulin ([facility]) POCT HEMOGLOBIN A1C Routine 08/17/2024 10:40 AM DIRECTOR DIGITAL Type 2 diabetes mellitus with hyperglycemia, with long-term current use of insulin ([facility]) EGFR STAT 06/21/2024 9:56 AM CDT LIPID PANEL Routine 04/01/2024 11:09 AM CDT Type 2 diabetes mellitus with hyperglycemia, with long-term current use of insulin (HCC) ALBUMIN CREATININE RATIO, URINE Routine 04/01/2024 11:09 AM CDT Type 2 diabetes mellitus with hyperglycemia, with long-term current use of insulin (HCC) from Last 3 Months or Most Recently Relevant to Health Maintenance Results * NM MPI SPECT (Rest and/or Stress) Multiple Studies (10/26/2024 12:55 PM DIRECTOR DIGITAL) Anatomical Region Laterality Modality Body N/A Nuclear Medicine 10/26/2024 11:1 3 AM DIRECTOR DIGITAL Narrative 10/26/2024 6:41 PM DIRECTOR DIGITAL [facility] [address] [facility] [address] [address] [place] [address], [place] [address] P:[phone] P:[phone] MPI Imaging Report Patient Name: SHAWN SHULTZ B : 1950 Study Date: 10/26/2024 11:13:56 AM Gender: M Tech: [facility] Location: [facility] Provider: MATTHEW GUSTAFSON Height(Cm): 170.2 BSA: Weight(Kg): 93.1 BMI: 32.14 Order Provider: MATTHEW GUSTAFSON PHYSICIAN: Referring Physician: Dr. Jiménez. HCG Physician: Warren Gustafson M.D. Interpreting Physician: Duy Cowan M.D.,F.A.C.C. Stress Supervision: Duy Cowan M.D.,F.A.C.C. PROCEDURES: Pharmacologic SPECT Report: Myocardial perfusion imaging with Tc99M Sestamibi SPECT at rest and stress post regadenoson (Lexiscan) infusion. Treadmill stress converted to an ambulatory Lexiscan stress at 6:23 due to unable to keep up with treadmill and unable to reach target heart rate. INDICATIONS: Family Hx CAD, Former Smoker, I25.10 Atherosclerotic heart disease of [place] coronary artery without angina pectoris, E11.69 Type 2 diabetes mellitus with other specified complication, E78.5 Hyperlipidemia, unspecified, E11.59 Type 2 diabetes mellitus with other circulatory complications, and I15.2 Hypertension secondary to endocrine disorders. FINDINGS: Procedural Findings: One day rest/stress was used. Tc99m Sestamibi injected IV at rest was 12.1 millicuries 37.9 millicuries of Tc99M Sestamibi injected IV during Lexiscan stress Lexiscan 0.4mg given IV over 10 seconds with low level exercise: 1.2 MPH Patient had no symptoms during stress test. Baseline heart rate was 68 BPM Maximum Heart Rate Achieved was: 105 BPM Baseline blood pressure was 122/68 mmHg Post Stress Blood Pressure was 128/72 mmHg Termination: Protocol complete. Resting ECG: Sinus rhythm. Incomplete RBBB, leftward axis . Post ECG: No diagnostic ST changes. Perfusion Findings: A TID of 0.89 was automatically calculated. defect 1: Size is medium. Severity is mild to moderate in intensity. Location of defect is in the basal inferior segment and mid inferior segment. Reversibility is partial. Type of defect is infarction with natalie-infarct or superimposed ischemia. LV Function: Global left ventricular function is normal with mild inferior hypokinesis. Left ventricular ejection fraction is 60 %. CONCLUSIONS: Sinus rhythm Incomplete RBBB, leftward axis . No diagnostic ST changes. Global left ventricular function is normal with mild inferior hypokinesis Left ventricular ejection fraction is 60 %. Size is medium. Severity is mild to moderate in intensity. Location of defect is in the basal inferior segment and mid inferior segment. Reversibility is partial. Type of defect is infarction with natalie-infarct or superimposed ischemia. Electronically Signed By: Duy Cowan MD, [facility] 10/26/2024 5:46:40 PM DIRECTOR DIGITAL Electronically Signed By: Duy Cowan MD, [facility] 10/26/2024 5:46:40 PM DIRECTOR DIGITAL Procedure Note Duy Cowan MD - 10/26/2024 [facility] [address] [facility] [address] [address], [place] [address] P:[phone] P:[phone] MPI Imaging Report Patient Name: SHAWN SHULTZ B : 1950 Study Date: 10/26/2024 11:13:56 AM Gender: M Tech: [facility] Location: [facility] Provider: MATTHEW GUSTAFSON Height(Cm): 170.2 BSA: Weight(Kg): 93.1 BMI: 32.14 Order Provider: MATTHEW GUSTAFSON PHYSICIAN: Referring Physician: Dr. Jiménez. HCG Physician: Warren Gustafson M.D. Interpreting Physician: Duy Cowan M.D.,F.A.C.C. Stress Supervision: Duy Cowan M.D.,F.A.C.C. PROCEDURES: Pharmacologic SPECT Report: Myocardial perfusion imaging with Tc99M Sestamibi SPECT at rest and stresspost regadenoson (Lexiscan) infusion. Treadmill stress converted to anambulatory Lexiscan stress at 6:23 due to unable to keep up with treadmill and unable to reachtarget heart rate. INDICATIONS: Family Hx CAD, Former Smoker, I25.10 Atherosclerotic heart disease ofnative coronary artery without angina pectoris, E11.69 Type 2 diabetes mellitus with otherspecified complication, E78.5 Hyperlipidemia, unspecified, E11.59 Type 2 diabetesmellitus with other circulatory complications, and I15.2 Hypertension secondary toendocrine disorders. FINDINGS: Procedural Findings: One day rest/stress was used. Tc99m Sestamibi injected IV at rest was 12.1 millicuries 37.9 millicuries of Tc99M Sestamibi injected IV during Lexiscan stress Lexiscan 0.4mg given IV over 10 seconds with low level exercise: 1.2MPH Patient had no symptoms during stress test. Baseline heart rate was 68 BPM Maximum Heart Rate Achieved was: 105 BPM Baseline blood pressure was 122/68 mmHg Post Stress Blood Pressure was 128/72 mmHg Termination: Protocol complete. Resting ECG: Sinus rhythm. Incomplete RBBB, leftward axis . Post ECG: No diagnostic ST changes. Perfusion Findings: A TID of 0.89 was automatically calculated. defect 1: Size is medium. Severity is mild to moderate in intensity. Location ofdefect is in the basal inferior segment and mid inferior segment. Reversibility is partial.Type of defect is infarction with natalie-infarct or superimposed ischemia. LV Function: Global left ventricular function is normal with mild inferior hypokinesis.Left ventricular ejection fraction is 60 %. CONCLUSIONS: Sinus rhythm Incomplete RBBB, leftward axis . No diagnostic ST changes. Global left ventricular function is normal with mild inferior hypokinesisLeft ventricular ejection fraction is 60 %. Size is medium. Severity is mild to moderate in intensity. Location ofdefect is in the basal inferior segment and mid inferior segment. Reversibility is partial.Type of defect is infarction with natalie-infarct or superimposed ischemia. Electronically Signed By: Duy Cowan MD, [facility] 10/26/2024 5:46:40 PM DIRECTOR DIGITAL Electronically Signed By: Duy Cowan MD, [facility] 10/26/2024 5:46:40 PM DIRECTOR DIGITAL Matthew Gustafson MD IMG NM PROCEDURES Final R esult * (ABNORMAL) POCT hemoglobin A1c (08/17/2024 10:40 AM DIRECTOR DIGITAL) Hemoglobin A1C, POC 7.8 4.0 - 5.6 % Comment:None Capillary blood 08/17/2024 1 0:40 AM DIRECTOR DIGITAL Alireza Clark MD POINT OF CARE TEST ORDERABLES Fi nal Result * (ABNORMAL) POCT glucose (08/17/2024 10:40 AM DIRECTOR DIGITAL) Glucose Blood, POC 177 mg/dL Comment:None Blood 08/17/2024 10:4 0 AM DIRECTOR DIGITAL Alireza Clark MD POINT OF CARE TEST ORDERABLES Fi nal Result * eGFR (06/21/2024 9:56 AM CDT) eGFR 79 >=60 mL/min/1. 73 m2 Comment: Interpretive Data Reference Interval Normal >/= 90 mL/min/1.73m2 Mildly decreased* 60 - 89 mL/min/1.73m2 Mildly to moderately decreased 45 - 59 mL/min/1.73m2 Moderately to severely decreased 30 - 44 mL/min/1.73m2 Severely decreased 15 - 29 mL/min/1.73m2 Kidney Failure < 15 mL/min/1.73m2 *Relative to young adult level Estimated glomerular filtration rate is determined by the 2020 CKD-EPI equation recommended by the National Kidney Foundation (A Unifying Approach to GFR Estimation: Recommendations of the NKF-ASK Task Force on Reassessing the Inclusion of Race in Diagnosing Kidney Disease, JASN 2020). The CKD-EPI equation should not be used for patients with unstable renal function and has not been validated in children and those over 70. Current interpretive data was last reviewed 2021. Blood 06/21/2024 9:56 AM CDT 06/21/2024 9:59 AM CDT Stefano Matamoros MD LAB BLOOD ORDERABLES Final Res ult SAMANTHAYPM RTF (ANIWA) 3 [facility] Department [place] [address] * (ABNORMAL) Albumin Creatinine Ratio, Urine (04/01/2024 11:09 AM CDT) Albumin Ur 19.5 mg/L Comment: Interpretive Data No reference range established. Current interpretive data was last revised 2019. Creatinine Ur 60.3 mg/dL JEFF Comment: Interpretive Data No reference range established. Current interpretive data was last revised 2019. Albumin Creatinine Ratio, Ur 32(H) 1 - 29 mg/g JEFF BRODERICK Urine 04/01/2024 11:0 9 AM CDT 04/01/2024 5:29 PM CDT us Alireza Clark MD LAB URINE ORDERABLES Final Resul t JEFF [id number] [address] Department [place] [address] * (ABNORMAL) Lipid panel (04/01/2024 11:09 AM CDT) Cholesterol 127 30 - 199 mg/dL Comment: Interpretive Data Ages < or = 19 years Acceptable: <170 mg/dL Borderline high: 170-199 mg/dL High: >or= 200 mg/dL Ages > or = 20 years Desirable: <200 mg/dL Borderline high: 200-239 mg/dL High: >or= 240 mg/dL Literature References: 1. Expert Panel on Integrated Guidelines for Cardiovascular Health and Risk Reduction in Children and Adolescents. Pediatrics 2011;128:S213 2. NCEP Expert Panel. Circulation 2004;110:227 Current Interpretive Data was last revised on 2018. Triglycerides 117 <=149 mg/dL JEFF Comment: Interpretive Data Ages < or = 9 years Acceptable: <75 mg/dL Borderline high: 75-99 mg/dL High: >or= 100 mg/dL Ages 10 to 20 years Acceptable: <90 mg/dL Borderline high: 90-129 mg/dL High: >or= 130 mg/dL Ages > or = 20 years Desirable: <150 mg/dL Borderline high: 150-199 mg/dL High: 200-499 mg/dL Very high: >or= 499 mg/dL Literature References: 1. Expert Panel on Integrated Guidelines for Cardiovascular Health and Risk Reduction in Children and Adolescents. Pediatrics 2011;128:S213 2. NCEP Expert Panel. Circulation 2004;110:227 Current Interpretive Data was last revised on 2018. HDL 35(L) >=40 mg/dL JEFF BRODERICK Comment: Interpretive Data Ages < or = 19 years Acceptable: >45 mg/dL Borderline low: 40-45 mg/dL Low: <40 mg/dL Ages > or = 20 years Desirable: >or= 60 mg/dL Low: <40 mg/dL Literature References: 1. Expert Panel on Integrated Guidelines for Cardiovascular Health and Risk Reduction in Children and Adolescents. Pediatrics 2011;128:S213 2. NCEP Expert Panel. Circulation 2004;110:227 Current Interpretive Data was last revised on 2018. LDL, calculated 69 <=129 mg/dL JEFF BRODERICK Comment: Interpretive Data Ages < or = 19 years Acceptable: <110 mg/dL Borderline high: 110-129 mg/dL High: >or= 130 mg/dL Ages > or = 20 years Optimal: <100 mg/dL Near optimal: 100-129 mg/dL Borderline high: 130-159 mg/dL High: >160 mg/dL Literature References: 1. Expert Panel on Integrated Guidelines for Cardiovascular Health and Risk Reduction in Children and Adolescents. Pediatrics 2011;128:S213 2. NCEP Expert Panel. Circulation 2004;110:227 Current Interpretive Data was last revised on 2018. Non-HDL Cholesterol 92 mg/dL JEFF BRODERICK Comment: Interpretive Data Ages < or = 19 years Acceptable: <120 mg/dL Borderline high: 120-144 mg/dL High: >145 mg/dL Ages > or = 20 years When triglycerides are >200 mg/dL, Non-HDL cholesterol is a secondary target of therapy with treatment goals that are 30 mg/dL greater than the LDL cholesterol target. Literature References: 1. Expert Panel on Integrated Guidelines for Cardiovascular Health and Risk Reduction in Children and Adolescents. Pediatrics 2011;128:S213 2. NCEP Expert Panel. Circulation 2004;110:227 Current Interpretive Data was last revised on 2018. Chol/HDL ratio 4 JEFF BRODERICK Blood 04/01/2024 11:0 9 AM CDT 04/01/2024 5:29 PM CDT us Alireza Clark MD LAB BLOOD ORDERABLES Final Resul t JEFF BRODERICK [id number] [address] Department [place] [address] from Last 3 Months or Most Recently Relevant to Health Maintenance Insurance MEDICARE FOR LIFE FOR LIFE MEDICARE SOLUTIONS [employer] MED[employer]ARE SOLUTIONS Advance Directives For more information, please contact: [phone] * Full Code (Latest Code Status on File) Date Activated Date Inactivated Comments 06/18/2024 3:52 PM 06/19/2024 10:57 PM * Full Code Date Activated Date Inactivated Comments 02/11/2024 3:49 PM 02/12/2024 6:22 PM Care Teams Tamper Operator Relationship Specialty Start Date End Date Maryann Jiménez DO PCP - General Family Medicine 07/03/22 Jose David Betancourt MD [id number] [address] Consulting Physician Urology 06/19/24
--- OUTSIDE RECORDS SUMMARY | 2024-11-12 00:12 | XMS_ITS | Patient Health Summary ---
Author Organization [facility] Address [address] [place] [address] Care Team Providers Care Note Teller Name Role Phone Maryann Jiménez DO Primary Care Provider [phone] Note from [facility],non-owned Affiliates and Associated Physician Practices is amultiple site organization consisting of ambulatory clinics and hospital sitesin [place], [place], [place] and [place]. This disclosure is being madepursuant to the Care Everywhere program and may not contain all information available regarding this patient. Last updated 18.[facility] alphacityguides Allergies * Atropine(Other) -Medium Criticality * Codeine(Nausea and/or Vomiting) -Medium Criticality * Enalapril(Other) -Low Criticality Medications * Be aware that medications may not be up to date on this document. Alwaysverify current medications with the patient. * finasteride (PROSCAR) 5 MG tablet Take 5 mg by mouth daily. * aspirin 81 MG tablet Take 81 mg by mouth daily. * glimepiride (AMARYL) 4 MG tablet Take 4 mg by mouth 2 times daily. 0100 and 1300 * levothyroxine (SYNTHROID) 100 MCG tablet Take 100 mcg by mouth daily before breakfast. * dulaglutide (TRULICITY) 0.75 MG/0.5ML injection Inject 0.75 mg subcutaneously * potassium chloride (KLOR-CON M20) 20 MEQ tablet(Started 05/26/2017) Take 10 mEq by mouth * omeprazole (PRILOSEC) 40 MG capsule(Started 07/08/2017) Take 40 mg by mouth * simvastatin (ZOCOR) 20 MG tablet Take 20 mg by mouth * SITagliptin (JANUVIA) 100 MG tablet(Started 04/29/2017) Take 100 mg by mouth * empagliflozin (JARDIANCE) 25 MG tablet(Started 04/09/2017) Take 25 mg by mouth * ascorbic acid (VITAMIN C) 125 MG TABS half tablet Take by mouth once daily * VITAMIN E PO Take 1 tablet by mouth once daily * metoprolol succinate XL 24hr (TOPROL XL) 25 MG tablet Take 12.5 mg by mouth once daily * Alcohol Swabs (EASY TOUCH ALCOHOL PREP MEDIUM) 70 %(Started 05/15/2019) * telmisartan-hydroCHLOROthiazide (MICARDIS HCT) 40-12.5 MG tablet(Started 12/09/2020) Take 1 tablet by mouth once daily * amLODIPine (NORVASC) 2.5 MG tablet(Started 12/09/2020) Take 2.5 mg by mouth once daily * sildenafil (VIAGRA) 25 MG tablet(Started 06/06/2020) Take 1 tablet by mouth once daily as needed * vitamin D, cholecalciferol, 50 MCG (2000 UT) tablet Take 2,000 Units by mouth once daily * ENBREL SURECLICK 50 MG/ML auto-injector pen(Started 02/03/2021) Inject 50 (fifty) mg subcutaneously every 7 days Active Problems Problem Noted Date Diagnosed Date Psoriatic arthritis 02/23/2018 DISH (diffuse idiopathic skeletal hyperostosis) 02/23/2018 HTN (hypertension) 06/13/2009 Diabetes mellitus 06/13/2009 Pacemaker 04/12/2009 Immunizations * INFLUENZA VACCINE, TRIV. (AFLURIA, FLUZONE TRIVALENT; 6MO+) (IIV3)(Given 05/25/2016) * Pneumococcal Pcv13 Conj(Given 05/25/2016) Social History Tobacco Use Types Packs/Day Years Used Date Smoking Tobacco: Passive [place]o [place] Exposure - Never Smoker Smokeless Tobacco: Never Alcohol Use Standard Drinks/Week Comments Yes 0 (1 standard drink = 0.6 oz pur e alcohol) occaisional Sex and Gender Information Value Date Recorded Sex Assigned at Not on file Gender Identity Not on file Sexual Orientation Not on file Last Filed Vital Signs Vital Sign Reading Time Taken Comments Blood Pressure 116/62 12/20/2020 11:23 AM CDT Pulse 72 12/20/2020 11:23 AM CDT Temperature 36.3 C (97.3 F) 12/20/2020 11:23 AM CDT Respiratory Rate 16 05/14/2017 2:25 PM CDT Oxygen Saturation 95% 09/28/2014 12:31 PM CARDIOLOGY PHYSICIAN Inhaled Oxygen Concentration - - Weight 90.7 kg (200 lb) 12/20/2020 11:23 AM CDT Height 170.2 cm (5' 7 ) 12/20/2020 11:23 AM CDT Body Mass Index 31.32 12/20/2020 11:23 AM CDT Procedures * CBC W AUTO DIFFERENTIAL(Performed 12/21/2020) Performed for Psoriatic arthritis (HCC), Encounter for long-term (current) use of high-risk medication, DISH (diffuse idiopathic skeletal hyperostosis) * URINALYSIS W/MICROSCOPIC REFLEX TO CULTURE(Performed 12/21/2020) Performed for Psoriatic arthritis (HCC), Encounter for long-term (current) use of high-risk medication, DISH (diffuse idiopathic skeletal hyperostosis) * ERYTHROCYTE SEDIMENTATION RATE(Performed 12/21/2020) Performed for Psoriatic arthritis (HCC), Encounter for long-term (current) use of high-risk medication, DISH (diffuse idiopathic skeletal hyperostosis) * C-REACTIVE PROTEIN(Performed 12/21/2020) Performed for Psoriatic arthritis (HCC), Encounter for long-term (current) use of high-risk medication, DISH (diffuse idiopathic skeletal hyperostosis) * COMPREHENSIVE METABOLIC PANEL(Performed 12/21/2020) Performed for Psoriatic arthritis (HCC), Encounter for long-term (current) use of high-risk medication, DISH (diffuse idiopathic skeletal hyperostosis) * CULTURE URINE REFLEXED I(Performed 12/21/2020) * URINALYSIS W/MICROSCOPIC NO CULTURE(Performed 04/19/2020) Performed for Psoriatic arthritis (HCC), Encounter for long-term (current) use of high-risk medication, DISH (diffuse idiopathic skeletal hyperostosis) * CULTURE URINE(Performed 04/19/2020) Performed for Psoriatic arthritis (HCC), Encounter for long-term (current) use of high-risk medication, DISH (diffuse idiopathic skeletal hyperostosis) * CBC W AUTO DIFFERENTIAL(Performed 04/19/2020) Performed for Psoriatic arthritis (HCC), Encounter for long-term (current) use of high-risk medication, DISH (diffuse idiopathic skeletal hyperostosis) * ERYTHROCYTE SEDIMENTATION RATE(Performed 04/19/2020) Performed for Psoriatic arthritis (HCC), Encounter for long-term (current) use of high-risk medication, DISH (diffuse idiopathic skeletal hyperostosis) * C-REACTIVE PROTEIN(Performed 04/19/2020) Performed for Psoriatic arthritis (HCC), Encounter for long-term (current) use of high-risk medication, DISH (diffuse idiopathic skeletal hyperostosis) * COMPREHENSIVE METABOLIC PANEL(Performed 04/19/2020) Performed for Psoriatic arthritis (HCC), Encounter for long-term (current) use of high-risk medication, DISH (diffuse idiopathic skeletal hyperostosis) * QUANTIFERON-TB GOLD PLUS 4-TUBE(Performed 04/19/2020) Performed for Psoriatic arthritis (HCC), Encounter for long-term (current) use of high-risk medication, DISH (diffuse idiopathic skeletal hyperostosis) * URINALYSIS W/MICROSCOPIC REFLEX TO CULTURE(Performed 12/16/2018) Performed for Psoriatic arthritis (HCC), Encounter for long-term (current) use of high-risk medication * ERYTHROCYTE SEDIMENTATION RATE(Performed 12/16/2018) Performed for Psoriatic arthritis (HCC), Encounter for long-term (current) use of high-risk medication * C-REACTIVE PROTEIN(Performed 12/16/2018) Performed for Psoriatic arthritis (HCC), Encounter for long-term (current) use of high-risk medication * COMPREHENSIVE METABOLIC PANEL(Performed 12/16/2018) Performed for Psoriatic arthritis (HCC), Encounter for long-term (current) use of high-risk medication * CBC W AUTO DIFFERENTIAL(Performed 12/16/2018) Performed for Psoriatic arthritis (HCC), Encounter for long-term (current) use of high-risk medication * CULTURE URINE REFLEXED I(Performed 12/16/2018) * QUANTIFERON-TB GOLD PLUS 1-TUBE(Performed 12/16/2018) * C-REACTIVE PROTEIN(Performed 03/18/2018) * COMPREHENSIVE METABOLIC PANEL(Performed 03/18/2018) * ERYTHROCYTE SEDIMENTATION RATE(Performed 03/18/2018) * CBC W AUTO DIFFERENTIAL(Performed 03/18/2018) * C-REACTIVE PROTEIN(Performed 12/31/2017) * CBC W AUTO DIFFERENTIAL(Performed 12/31/2017) * ERYTHROCYTE SEDIMENTATION RATE(Performed 12/31/2017) * COMPREHENSIVE METABOLIC PANEL(Performed 12/31/2017) * CBC W AUTO DIFFERENTIAL(Performed 10/25/2017) * ERYTHROCYTE SEDIMENTATION RATE(Performed 10/25/2017) * C-REACTIVE PROTEIN(Performed 10/25/2017) * COMPREHENSIVE METABOLIC PANEL(Performed 10/25/2017) * CBC W AUTO DIFFERENTIAL(Performed 07/23/2017) * C-REACTIVE PROTEIN(Performed 07/23/2017) * COMPREHENSIVE METABOLIC PANEL(Performed 07/23/2017) * ERYTHROCYTE SEDIMENTATION RATE(Performed 07/23/2017) * QUANTIFERON TB-GOLD(Performed 05/21/2017) * C-REACTIVE PROTEIN(Performed 05/21/2017) * COMPREHENSIVE METABOLIC PANEL(Performed 05/21/2017) * ERYTHROCYTE SEDIMENTATION RATE(Performed 05/21/2017) * CBC W AUTO DIFFERENTIAL(Performed 05/21/2017) * CBC W AUTO DIFFERENTIAL(Performed 01/15/2017) * ERYTHROCYTE SEDIMENTATION RATE(Performed 01/15/2017) * C-REACTIVE PROTEIN(Performed 01/15/2017) * COMPREHENSIVE METABOLIC PANEL(Performed 01/15/2017) * C-REACTIVE PROTEIN(Performed 11/13/2016) * CBC W AUTO DIFFERENTIAL(Performed 11/13/2016) * ERYTHROCYTE SEDIMENTATION RATE(Performed 11/13/2016) * COMPREHENSIVE METABOLIC PANEL(Performed 11/13/2016) * CBC W AUTO DIFFERENTIAL(Performed 11/13/2016) * ERYTHROCYTE SEDIMENTATION RATE(Performed 11/13/2016) * COMPREHENSIVE METABOLIC PANEL(Performed 11/13/2016) * CBC W AUTO DIFFERENTIAL(Performed 11/13/2016) * ERYTHROCYTE SEDIMENTATION RATE(Performed 11/13/2016) * CBC W AUTO DIFFERENTIAL(Performed 11/13/2016) * C-REACTIVE PROTEIN(Performed 07/20/2016) * ERYTHROCYTE SEDIMENTATION RATE(Performed 07/20/2016) * CBC W AUTO DIFFERENTIAL(Performed 07/20/2016) * COMPREHENSIVE METABOLIC PANEL(Performed 07/20/2016) * COMPREHENSIVE METABOLIC PANEL(Performed 07/20/2016) * CBC W AUTO DIFFERENTIAL(Performed 07/20/2016) * ERYTHROCYTE SEDIMENTATION RATE(Performed 07/20/2016) * URINALYSIS W/MICROSCOPIC REFLEX TO CULTURE(Performed 04/17/2016) * C-REACTIVE PROTEIN(Performed 04/17/2016) * CBC W AUTO DIFFERENTIAL(Performed 04/17/2016) * ERYTHROCYTE SEDIMENTATION RATE(Performed 04/17/2016) * URINALYSIS W/MICROSCOPIC REFLEX TO CULTURE(Performed 04/17/2016) * COMPREHENSIVE METABOLIC PANEL(Performed 04/17/2016) * URINALYSIS W/MICROSCOPIC REFLEX TO CULTURE(Performed 04/17/2016) * COMPREHENSIVE METABOLIC PANEL(Performed 04/17/2016) * URINALYSIS W/MICROSCOPIC REFLEX TO CULTURE(Performed 04/17/2016) * ERYTHROCYTE SEDIMENTATION RATE(Performed 04/17/2016) * CBC W AUTO DIFFERENTIAL(Performed 04/17/2016) * C-REACTIVE PROTEIN(Performed 02/13/2016) * ERYTHROCYTE SEDIMENTATION RATE(Performed 02/13/2016) * COMPREHENSIVE METABOLIC PANEL(Performed 02/13/2016) * URINALYSIS W/MICROSCOPIC REFLEX TO CULTURE(Performed 02/13/2016) * CBC W AUTO DIFFERENTIAL(Performed 02/13/2016) * XR LUMBAR SPINE 2 OR 3VW(Performed 12/02/2015) * C-REACTIVE PROTEIN(Performed 12/02/2015) * ERYTHROCYTE SEDIMENTATION RATE(Performed 12/02/2015) * CBC W AUTO DIFFERENTIAL(Performed 12/02/2015) * URINALYSIS W/MICROSCOPIC REFLEX TO CULTURE(Performed 12/02/2015) * COMPREHENSIVE METABOLIC PANEL(Performed 12/02/2015) * QUANTIFERON TB-GOLD(Performed 12/02/2015) * URINALYSIS W/MICROSCOPIC REFLEX TO CULTURE(Performed 09/28/2015) * COMPREHENSIVE METABOLIC PANEL(Performed 09/28/2015) * CBC W AUTO DIFFERENTIAL(Performed 09/28/2015) * ERYTHROCYTE SEDIMENTATION RATE(Performed 09/28/2015) * C-REACTIVE PROTEIN(Performed 09/28/2015) * XR HAND LEFT 3VW OR MORE(Performed 08/02/2015) * XR HAND RIGHT 3VW OR MORE(Performed 08/02/2015) * URINALYSIS W/MICROSCOPIC REFLEX TO CULTURE(Performed 07/18/2015) * C-REACTIVE PROTEIN(Performed 07/18/2015) * ERYTHROCYTE SEDIMENTATION RATE(Performed 07/18/2015) * COMPREHENSIVE METABOLIC PANEL(Performed 07/18/2015) * CBC W AUTO DIFFERENTIAL(Performed 07/18/2015) * URINALYSIS W/MICROSCOPIC REFLEX TO CULTURE(Performed 04/12/2015) * C-REACTIVE PROTEIN(Performed 04/12/2015) * ERYTHROCYTE SEDIMENTATION RATE(Performed 04/12/2015) * COMPREHENSIVE METABOLIC PANEL(Performed 04/12/2015) * CBC W AUTO DIFFERENTIAL(Performed 04/12/2015) * CULTURE URINE REFLEXED(Performed 04/12/2015) * URINALYSIS W/MICROSCOPIC REFLEX TO CULTURE(Performed 01/22/2015) * CBC W AUTO DIFFERENTIAL(Performed 01/22/2015) * COMPREHENSIVE METABOLIC PANEL(Performed 01/22/2015) * ERYTHROCYTE SEDIMENTATION RATE(Performed 01/22/2015) * C-REACTIVE PROTEIN(Performed 01/22/2015) * CULTURE URINE REFLEXED(Performed 01/22/2015) * C-REACTIVE PROTEIN(Performed 12/04/2014) * ERYTHROCYTE SEDIMENTATION RATE(Performed 12/04/2014) * URINALYSIS W/MICROSCOPIC REFLEX TO CULTURE(Performed 12/04/2014) * COMPREHENSIVE METABOLIC PANEL(Performed 12/04/2014) * CBC W AUTO DIFFERENTIAL(Performed 12/04/2014) * CULTURE URINE REFLEXED(Performed 12/04/2014) * C-REACTIVE PROTEIN(Performed 09/17/2014) * URINALYSIS W/MICROSCOPIC REFLEX TO CULTURE(Performed 09/17/2014) * COMPREHENSIVE METABOLIC PANEL(Performed 09/17/2014) * ERYTHROCYTE SEDIMENTATION RATE(Performed 09/17/2014) * CBC W AUTO DIFFERENTIAL(Performed 09/17/2014) * CULTURE URINE REFLEXED(Performed 09/17/2014) * COMPREHENSIVE METABOLIC PANEL(Performed 05/18/2014) * CBC W AUTO DIFFERENTIAL(Performed 05/18/2014) * URINALYSIS W/MICROSCOPIC REFLEX TO CULTURE(Performed 05/18/2014) * ERYTHROCYTE SEDIMENTATION RATE(Performed 05/18/2014) * C-REACTIVE PROTEIN(Performed 05/18/2014) * CULTURE URINE REFLEXED(Performed 05/18/2014) * XR CHEST 2VW(Performed 04/23/2014) * C-REACTIVE PROTEIN(Performed 04/06/2014) * COMPREHENSIVE METABOLIC PANEL(Performed 04/06/2014) * URINALYSIS W/MICROSCOPIC REFLEX TO CULTURE(Performed 04/06/2014) * CBC W AUTO DIFFERENTIAL(Performed 04/06/2014) * ERYTHROCYTE SEDIMENTATION RATE(Performed 04/06/2014) * CULTURE URINE REFLEXED(Performed 04/06/2014) * URINALYSIS W/MICROSCOPIC REFLEX TO CULTURE(Performed 02/05/2014) * C-REACTIVE PROTEIN(Performed 02/05/2014) * COMPREHENSIVE METABOLIC PANEL(Performed 02/05/2014) * ERYTHROCYTE SEDIMENTATION RATE(Performed 02/05/2014) * CBC W AUTO DIFFERENTIAL(Performed 02/05/2014) * CULTURE URINE REFLEXED(Performed 02/05/2014) * C-REACTIVE PROTEIN(Performed 11/24/2013) * CBC W AUTO DIFFERENTIAL(Performed 11/24/2013) * COMPREHENSIVE METABOLIC PANEL(Performed 11/24/2013) * URINALYSIS W/MICROSCOPIC REFLEX TO CULTURE(Performed 11/24/2013) * ERYTHROCYTE SEDIMENTATION RATE(Performed 11/24/2013) * CULTURE URINE REFLEXED(Performed 11/24/2013) * QUANTIFERON TB-GOLD(Performed 11/24/2013) * C-REACTIVE PROTEIN(Performed 09/23/2013) * ERYTHROCYTE SEDIMENTATION RATE(Performed 09/23/2013) * URINALYSIS W/MICROSCOPIC NO CULTURE(Performed 09/23/2013) * COMPREHENSIVE METABOLIC PANEL(Performed 09/23/2013) * CBC W AUTO DIFFERENTIAL(Performed 09/23/2013) * C-REACTIVE PROTEIN(Performed 08/05/2013) * COMPREHENSIVE METABOLIC PANEL(Performed 08/05/2013) * ERYTHROCYTE SEDIMENTATION RATE(Performed 08/05/2013) * CBC W AUTO DIFFERENTIAL(Performed 08/05/2013) * URINALYSIS W/MICROSCOPIC NO CULTURE(Performed 08/05/2013) * C-REACTIVE PROTEIN(Performed 06/15/2013) * URINALYSIS W/MICROSCOPIC NO CULTURE(Performed 06/15/2013) * COMPREHENSIVE METABOLIC PANEL(Performed 06/15/2013) * ERYTHROCYTE SEDIMENTATION RATE(Performed 06/15/2013) * CBC W AUTO DIFFERENTIAL(Performed 06/15/2013) * C-REACTIVE PROTEIN(Performed 04/21/2013) * ERYTHROCYTE SEDIMENTATION RATE(Performed 04/21/2013) * CBC W AUTO DIFFERENTIAL(Performed 04/21/2013) * URINALYSIS W/MICROSCOPIC NO CULTURE(Performed 04/21/2013) * COMPREHENSIVE METABOLIC PANEL(Performed 04/21/2013) * C-REACTIVE PROTEIN(Performed 03/17/2013) * URINALYSIS W/MICROSCOPIC NO CULTURE(Performed 03/17/2013) * CBC W AUTO DIFFERENTIAL(Performed 03/17/2013) * COMPREHENSIVE METABOLIC PANEL(Performed 03/17/2013) * ERYTHROCYTE SEDIMENTATION RATE(Performed 03/17/2013) * XR SHOULDER LEFT 2VW OR MORE(Performed 01/02/2013) * XR CLAVICLE LEFT 2VW(Performed 01/02/2013) * C-REACTIVE PROTEIN(Performed 12/19/2012) * COMPREHENSIVE METABOLIC PANEL(Performed 12/19/2012) * URINALYSIS W/MICROSCOPIC NO CULTURE(Performed 12/19/2012) * ERYTHROCYTE SEDIMENTATION RATE(Performed 12/19/2012) * CBC W AUTO DIFFERENTIAL(Performed 12/19/2012) * URINALYSIS W/MICROSCOPIC NO CULTURE(Performed 11/05/2012) * ERYTHROCYTE SEDIMENTATION RATE(Performed 11/05/2012) * C-REACTIVE PROTEIN(Performed 11/05/2012) * COMPREHENSIVE METABOLIC PANEL(Performed 11/05/2012) * CBC W AUTO DIFFERENTIAL(Performed 11/05/2012) * URINALYSIS W/MICROSCOPIC REFLEX TO CULTURE(Performed 08/08/2012) * C-REACTIVE PROTEIN(Performed 08/08/2012) * COMPREHENSIVE METABOLIC PANEL(Performed 08/08/2012) * CBC W AUTO DIFFERENTIAL(Performed 08/08/2012) * ERYTHROCYTE SEDIMENTATION RATE(Performed 08/08/2012) * CULTURE URINE REFLEXED(Performed 08/08/2012) * NM MYOCARD PERF REST STRESS(Performed 05/28/2012) Performed for CAD (coronary artery disease), HTN (hypertension) * ECHOCARDIOGRAM 2D WITH DOPPLER(Performed 05/28/2012) Performed for CAD (coronary artery disease), HTN (hypertension) * STRESS TEST NUCLEAR(Performed 05/28/2012) Performed for CAD (coronary artery disease), HTN (hypertension) * LAB HISTORICAL RESULTS-ONBASE(Performed 05/24/2012) * LAB HISTORICAL RESULTS-ONBASE(Performed 12/25/2011) * LAB HISTORICAL RESULTS-ONBASE(Performed 10/23/2011) * LAB HISTORICAL RESULTS-ONBASE(Performed 09/06/2011) * CARDIAC PACER/DEFIB ORDER(Performed 05/25/2011) * NM MYOCARD PERF REST STRESS(Performed 01/17/2011) Performed for HTN (hypertension), Diabetes mellitus * STRESS TEST NUCLEAR(Performed 01/17/2011) Performed for HTN (hypertension), Diabetes mellitus * PACEMAKER ANALYSIS SINGLE WITH REPROGRAM(Performed 07/13/2010) Performed for Pacemaker * CARDIAC EKG ORDER(Performed 03/02/2010) * CARDIAC EKG ORDER(Performed 03/01/2010) * CARDIAC PROCEDURE ORDER(Performed 03/01/2010) * LAB RESULTS ORDER(Performed 03/01/2010) * GLUCOSE - POINT OF CARE(Performed 02/28/2010) Performed for Cor Athrscl-Uns Vessel * BASIC METABOLIC PANEL (CALCIUM TOTAL)(Performed 02/28/2010) Performed for Cor Athrscl-Uns Vessel * CBC W AUTO DIFFERENTIAL(Performed 02/28/2010) Performed for Cor Athrscl-Uns Vessel * CARDIAC CATH ORDER(Performed 02/28/2010) * GLUCOSE - POINT OF CARE(Performed 02/27/2010) Performed for Cor Athrscl-Uns Vessel * GLUCOSE - POINT OF CARE(Performed 02/27/2010) Performed for Cor Athrscl-Uns Vessel * PTT(Performed 02/27/2010) Performed for Cor Athrscl-Uns Vessel * CBC W AUTO DIFFERENTIAL(Performed 02/27/2010) Performed for Cor Athrscl-Uns Vessel * PLATELET COUNT AUTO(Performed 02/27/2010) Performed for Cor Athrscl-Uns Vessel * ACT - POINT OF CARE(Performed 02/27/2010) * ACT - POINT OF CARE(Performed 02/27/2010) * CARDIAC CATH CONSULT(Performed 02/27/2010) * CARDIAC STRESS TEST ORDER(Performed 02/02/2010) * PACEMAKER ANALYSIS SINGLE WITHOUT REPROGRAM(Performed 06/13/2009) Performed for Pacemaker, HTN (Hypertension), Diabetes Mellitus * CARDIAC EKG ORDER(Performed 03/31/2009) Results * CULTURE URINE REFLEXED I (12/21/2020 11:20 AM CDT) Only the most recent of2 resultswithin the time period is included. Pathologist [facility] [place] Reflexive Urine Culture See Below [facility] Comment: NO CULTURE INDICATED Test Performed at: [facility] [address] [address] IVY DERAS DO,MPH 12/21/2020 11:2 0 AM CDT 12/21/2020 11:21 AM CDT Nico Jones MD LAB - MICROBIOLOGY O RDERABLES [facility] [address] [place] [address] * (ABNORMAL) URINALYSIS W/MICROSCOPIC REFLEX TO CULTURE (12/21/2020 11:20 AM CDT) Only the most recent of19 resultswithin the time period is included. Color UA YELLOW YELLOW [facility] Appearance CLEAR CLEAR [facility] Specific [place] UA 1.044(H) 1.001 - 1.035 [facility] pH UA 6.5 5.0 - 8.0 [facility] Glucose UA 3+(A) NEGATIVE [facility] Bilirubin UA NEGATIVE NEGATIVE [facility] Ketone UA NEGATIVE NEGATIVE [facility] Blood UA NEGATIVE NEGATIVE [facility] Protein UA NEGATIVE NEGATIVE [facility] Nitrite NEGATIVE NEGATIVE [facility] Leukocyte Esterase NEGATIVE NEGATIVE [facility] WBC UA NONE SEEN < OR = 5 /HPF [facility] RBC UA 0-2 < OR = 2 /HPF [facility] Epithelial Cell UA 0-5 < OR = 5 /HPF [facility] Bacteria UA NONE SEEN NONE SEEN /HPF [facility] Hyaline Casts NONE SEEN NONE SEEN /LPF [facility] Comment: Test Performed at: [place] [address] IVY DERAS DO,MPH Urine URINE SPECIMEN OBTAINED BY CLEAN CATCH PROCEDURE / Unknown 12/21/2020 11:20 AM CDT 12/21/2020 11:21 AM CDT Nico Jones MD LAB - URINALYSIS ORD ERABLES Performing Organization Address [facility] Co de Phone Number [facility] [address] [place] [address] * C-REACTIVE PROTEIN (12/21/2020 11:20 AM CDT) Only the most recent of32 resultswithin the time period is included. C-Reactive Protein 5.4 <8.0 mg/L [facility] Comment: REPORT COMMENT: FASTING:YES Test Performed at: [employer] [facility] [place] [address] IVY DERAS DO,MPH Blood BLOOD SPECIMEN / Unknown 12/21/2020 11:20 AM CDT 12/21/2020 11:21 AM CDT Nico Jones MD LAB - CHEMISTRY ORDE RABLES Performing Organization Address City/[facility] Co de Phone Number [facility] [address] [place] [address] * ERYTHROCYTE SEDIMENTATION RATE (12/21/2020 11:20 AM CDT) Only the most recent of36 resultswithin the time period is included. Erythrocyte Sedimentation Rate Westergren 14 < OR = 20 mm/h [facility] Comment: Test Performed at: [employer] [facility] [employer] [facility] [place] [address] IVY DERAS DO,MPH Blood BLOOD SPECIMEN / Unknown 12/21/2020 11:20 AM CDT 12/21/2020 11:21 AM CDT Nico Jones MD LAB - HEMATOLOGY ORD ERABLES Performing Organization Address City/[facility]/ZIP Co de Phone Number [facility] [id number] [place] [phone] * CBC WITH DIFFERENTIAL (12/21/2020 11:20 AM CDT) Only the most recent of39 resultswithin the time period is included. White Blood Cell Count 8.1 3.8 - 10.8 Thousand/u L [facility] RBC 5.30 4.20 - 5.80 Million/uL [facility] Hemoglobin 15.8 13.2 - 17.1 g/dL [facility] Hematocrit 45.9 38.5 - 50.0 % [facility] MCV 86.6 80.0 - 100.0 fL [facility] MCH 29.8 27.0 - 33.0 pg [facility] MCHC 34.4 32.0 - 36.0 g/dL [facility] RDW 12.9 11.0 - 15.0 % [facility] Platelet Count 258 140 - 400 Thousand/u L [facility] MPV 9.3 7.5 - 12.5 fL [facility] Neutrophil Absolute 4123 1500 - 7800 cells/uL [facility] Lymphocytes Absolute 2932 850 - 3900 cells/uL [facility] Absolute Monocytes 697 200 - 950 cells/uL [facility] Eosinophils Absolute 259 15 - 500 cells/uL [facility] Basophils Absolute 89 0 - 200 cells/uL [facility] Granulocytes % 50.9 % [facility] Lymphocytes % 36.2 % [facility] Monocytes % 8.6 % [facility] Eosinophils % 3.2 % [facility] Basophils % 1.1 % [facility] Comment: Test Performed at: [facility] [id number] [place] [address] IVY DERAS DO,MPH Blood BLOOD SPECIMEN / Unknown 12/21/2020 11:20 AM CDT 12/21/2020 11:21 AM CDT Nico Jones MD LAB - HEMATOLOGY ORD ERABLES Performing Organization Address City/[facility]/ZIP Co de Phone Number [facility] [id number] [place] [phone] * (ABNORMAL) COMPREHENSIVE METABOLIC PANEL (12/21/2020 11:20 AM CDT) Only the most recent of35 resultswithin the time period is included. Glucose 224(H) 65 - 99 mg/dL [facility] Comment: Fasting reference interval For someone without known diabetes, a glucose value >125 mg/dL indicates that they may have diabetes and this should be confirmed with a follow-up test. BUN 12 7 - 25 mg/dL [facility] Creatinine 0.94 0.70 - 1.18 mg/dL [facility] Comment: For patients >49 years of age, the reference limit for Creatinine is approximately 13% higher for people identified as -[place]. eGFR by MDRD 82 > OR = 60 mL/min/1 .73m2 [facility] eGFR by MDRD 95 > OR = 60 mL/min/1 .73m2 [facility] BUN/Creatinine Ratio NOT APPLICABLE 6 - 22 (calc) [facility] Sodium 138 135 - 146 mmol/L [facility] Potassium 3.4(L) 3.5 - 5.3 mmol/L [facility] Chloride 100 98 - 110 mmol/L [facility] CO2 31 20 - 32 mmol/L [facility] Calcium 9.0 8.6 - 10.3 mg/dL [facility] Protein Total 7.0 6.1 - 8.1 g/dL [facility] Albumin 3.9 3.6 - 5.1 g/dL [facility] Globulin Total 3.1 1.9 - 3.7 g/dL (calc) [facility] Albumin/Globulin Ratio 1.3 1.0 - 2.5 (calc) [facility] Bilirubin Total 0.4 0.2 - 1.2 mg/dL [facility] Alkaline Phosphatase 62 35 - 144 U/L [facility] AST 11 10 - 35 U/L [facility] ALT 10 9 - 46 U/L [facility] Comment: Test Performed at: [facility] [id number] [place] [id number] IVY DERAS DO,MPH Blood BLOOD SPECIMEN / Unknown 12/21/2020 11:20 AM CDT 12/21/2020 11:21 AM CDT Nico Jones MD LAB - CHEMISTRY [facility] Organization Address City/State/ZIP Co de Phone Number [facility] [phone] [place] [address] * (ABNORMAL) URINALYSIS W/MICROSCOPIC NO CULTURE (04/19/2020 11:05 AM [facility]) Only the most recent of8 resultswithin the time period is included. Color UA Straw Straw, Yellow, Colorless 04/19/2020 11:38 AM [facility] Clarity UA Clear Clear, Slt Cloudy 04/19/2020 11:38 AM [facility] Specific [place] UA 1.031(H) 1.005 - 1.030 04/19/2020 11:38 AM [facility] pH UA 5.0 5.0 - 8.0 pH 04/19/2020 11:38 AM [facility] Protein UA Negative Negative mg/dL 04/19/2020 11:38 AM [facility] Glucose UA 3+(A) Negative mg/dL 04/19/2020 11:38 AM [facility] Ketone UA Negative Negative mg/dL 04/19/2020 11:38 AM [facility] Bilirubin UA Negative Negative mg/dL 04/19/2020 11:38 AM [facility] Blood UA Negative Negative 04/19/2020 11:38 AM [facility] Nitrite UA Negative Negative 04/19/2020 11:38 AM [facility] Leukocyte Esterase Negative Negative 04/19/2020 11:38 AM [facility] Urobilinogen UA Negative Negative mg/dL 04/19/2020 11:38 AM [facility] RBC UA 0-2 None Seen, 0-2, 3-5 /HPF 04/19/2020 11:38 AM [facility] WBC UA None Seen None Seen, 0-5 /HPF 04/19/2020 11:38 AM [facility] Squamous Epithelial Cells UA None Seen None Seen, 0-2 /HPF 04/19/2020 11:38 AM [facility] Urine URINE SPECIMEN OBTAINED BY CLEAN CATCH PROCEDURE / Unknown Collection / Unknown 04/19/2020 11:05 AM CDT 04/19/2020 11:24 AM [facility] - 04/19/2020 11:38 AM T Nico Jones MD LAB - URINALYSIS ORD ERABLES [facility] [address] [place] [address], [facility] [email or web address]] [phone] * CULTURE URINE (04/19/2020 11:05 AM CDT) Pathologist [facility] Culture Urine <10,000 CFU/mL urogenital michelle KEYANNA 04/20/2020 4:41 PM CDT [facility] Urine URINE SPECIMEN OBTAINED BY CLEAN CATCH PROCEDURE / Unknown Collection / Unknown 04/19/2020 11:05 AM CDT 04/19/2020 11:24 AM CDT Nico Jones MD LAB - MICROBIOLOGY O CHALO [facility] [address] [place] [address], [facility] [email or web address]] [phone] * QUANTIFERON-TB GOLD PLUS 4-TUBE (04/19/2020 11:03 AM CDT) Pathologist [facility] QuantiFERON NIL 0.12 IU/mL 0 4:33 AM CDT [employer] ([facility]) Comment: Performed By: [employer] [address] [place] [id number] Greens Cutter: Jah Land MD, MS QuantiFERON TB Gold Plus Negative Negative 04/22/2020 4:33 AM CDT [employer] ([facility]) Comment: Interpretive Data: Quantiferon TB Gold Plus Interferon gamma release is measured for specimens from each of the four collection tubes. A qualitative result (Negative, Positive, or Indeterminate) is based on interpretation of the four values, NIL, MITOGEN minus NIL (MITOGEN-NIL), TB1 minus NIL (TB1-NIL), and TB2 minus NIL (TB2-NIL). The NIL value represents nonspecific reactivity produced by the patient specimen. The MITOGEN-NIL value serves as the positive control for the patient specimen, demonstrating successful lymphocyte activity. The TB1-NIL tube specifically detects CD4+ lymphocyte reactivity, specifically stimulated by the TB1 antigens. The TB2-NIL tube detects both CD4+ and CD8+ lymphocyte reactivity, stimulated by TB2 antigens. An overall Negative result does not completely rule out TB infection. A false-positive result in the absence of other clinical evidence of TB infection is not uncommon. Refer to: Updated Guidelines for Using Interferon Gamma Release Assays to Detect Mycobacterium tuberculosis Infection --- [place], 2010 (http://www.cdc.gov/mmwr/preview/mmwrhtml/ze7491d1.htm), for more information concerning test performance in low-prevalence populations and use in occupational screening. QuantiFERON Plus TB1 Minus NIL 0.00 0.00 - 0.34 IU/mL 04/22/2020 4:33 AM CDT [employer] ([facility]) QuantiFERON Plus TB2 Minus NIL 0.00 0.00 - 0.34 IU/mL 04/22/2020 4:33 AM CDT [facility] [employer] ([facility]) QuantiFERON Mitogen Minus NIL >10.00 IU/mL 04/22/2020 4:33 AM CDT [facility]) Blood BLOOD SPECIMEN / Unknown Lab Venipuncture / Unknown 04/19/2020 11:03 AM CDT 04/19/2020 11:23 AM CDT Nico Jones MD LAB - CHEMISTRY JORGE A [facility] Organization Address City/State/ZIP Co de Phone Number [facility]) [address] * QUANTIFERON-TB GOLD PLUS 1-TUBE (12/16/2018 8:31 AM CDT) [facility] QuantiFERON TB Gold Plus NEGATIVE NEGATIVE [facility] Comment: Negative test result. M. tuberculosis complex infection unlikely. NIL 0.01 IU/mL [facility] MITOGEN MINUS NIL RESULT 6.66 IU/mL [facility] TB1-NIL 0.00 IU/mL [facility] TB2-NIL 0.00 IU/mL [facility] Comment: The Nil tube value reflects the background interferon gamma immune response of the patient's blood sample. This value has been subtracted from the patient's displayed TB and Mitogen results. Lower than expected results with the Mitogen tube prevent false-negative Quantiferon readings by detecting a patient with a potential immune suppressive condition and/or suboptimal pre-analytical specimen handling. The TB1 Antigen tube is coated with the M. tuberculosis-specific antigens designed to elicit responses from TB antigen primed CD4+ helper T-lymphocytes. The TB2 Antigen tube is coated with the M. tuberculosis-specific antigens designed to elicit responses from TB antigen primed CD4+ helper and CD8+ cytotoxic T-lymphocytes. For additional information, please refer to http://Pintley.TV189.com/faq/204 (This link is being provided for informational/ educational purposes only.) Test Performed at: [facility] [address] [place] [address] IVY DERAS DO,MPH 12/16/2018 8:31 AM CDT 12/16/2018 8:31 AM CDT April Mendoza MD LAB - CHEMISTRY O RDERABLES [facility] [address] [place] [address] * QUANTIFERON TB-GOLD (05/21/2017 9:22 AM CDT) Only the most recent of3 resultswithin the time period is included. [facility] QuantiFERON TB Gold NEGATIVE NEGATIVE [facility] ([facility]) Comment: Negative test result. M. tuberculosis complex infection unlikely. QuantiFERON Nil Value 0.00 IU/mL [facility] ([facility]) QuantiFERON Mitogen Value >10.00 IU/mL [facility] ([facility]) QuantiFERON TB Antigen minus Nil value <0.00 IU/mL [facility] ([facility]) Comment: The Nil tube value is used to determine if the patient has a preexisting immune response which could cause a false-positive reading on the test. In order for a test to be valid, the Nil tube must have a value of less than or equal to 8.0 IU/mL. The mitogen control tube is used to assure the patient has a healthy immune status and also serves as a control for correct blood handling and incubation. It is used to detect false-negative readings. The mitogen tube must have a gamma interferon value of greater than or equal to 0.5 IU/mL higher than the value of the Nil tube. The TB antigen tube is coated with the M. tuberculosis specific antigens. For a test to be considered positive, the TB antigen tube value minus the Nil tube value must be greater than or equal to 0.35 IU/mL. 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 Report dictated by Angelic Avitia M.D. (radiology equipment servicer). I, Dr. COCO STORM M.D. have personally reviewed and interpreted this examination/study. This report was electronically signed by COCO STORM M.D. on 12/02/2015 4:57 PM . Narrative 12/02/2015 4:57 PM CDT Exam: XR SPINE LUMBAR 2 OR 3 VW Date: 12/02/2015 3:42 PM History: pt with right sided lumbar pain, history of psoriatic arthritis Comparison: No prior studies available. Findings: An electronic device superimposes the right abdomen with lead traversing superiorly out of view. Normal lordotic alignment is demonstrated. There is no fracture or subluxation. Vertebral body heights are maintained. S1 is a transitional vertebra. There is mild disc space narrowing at L4-L5 and L5-S1. Mild facet arthropathy is seen at L5- S1. Moderate degenerative changes are seen in the lower thoracic spine. Bone density is normal. There is no soft tissue abnormality. Procedure Note Coco Storm MD - 11/30/2017 Exam: XR SPINE LUMBAR 2 OR 3 VW Date: 12/02/2015 3:42 PM History: pt with right sided lumbar pain, history of psoriatic arthritis Comparison: No prior studies available. Findings: An electronic device superimposes the right abdomen with lead traversingsuperiorly out of view. Normal lordotic alignment is demonstrated. There is no fracture orsubluxation. Vertebral body heights are maintained. S1 is a transitionalvertebra. There is mild disc space narrowing at L4-L5 and L5-S1. Mildfacet arthropathy is seen at L5-S1. Moderate degenerative changes are seen in the lower thoracic spine. Bone densityis normal. There is no soft tissue abnormality. 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 Report dictated by Angelic Avitia M.D. (radiology equipment servicer). I, Dr. COCO STORM M.D. have personally reviewed and interpreted thisexamination/study. This report was electronically signed by COCO STORM M.D. on 12/02/20154:57 PM . April Mendoza MD DIAGNOSTIC IMAGIN G ORDERABLES * XR HAND LEFT 3VW OR MORE (08/02/2015 2:37 PM CARDIOLOGY PHYSICIAN) Anatomical Region Laterality Modality Wrist / Hand Other Impressions 08/02/2015 3:16 PM CARDIOLOGY PHYSICIAN Impression: 1. No acute osseous abnormality. 2. Right hand x-rays demonstrate small erosions at the third and fourth distal interphalangeal joints, which were present previously. No new erosions are seen. 3. Left hand x-rays demonstrate no significant arthritis. This report was electronically signed by GARRISON CAN MD on 08/02/2015 3:16 PM . Narrative 08/02/2015 3:16 PM CARDIOLOGY PHYSICIAN Exam: 1. XR HAND LEFT 3+ VW, 2. XR HAND RIGHT 3+ VW History: pt with psoriatic arthritis, pain, right medial wrist pain after hyperextension Comparison: Right and left hand x-rays dated 05/20/07 Findings: Right hand: No acute fracture or dislocation is seen. The joint spaces are normal. There is a small erosion in the third finger middle phalanx head which was present previously. A small cyst or erosion in the third distal phalanx base has partially healed since the prior examination. A small erosion in the fourth middle phalanx head has progressed slightly since the prior examination. No new erosions are seen. Bone density is normal. The soft tissues are unremarkable. Left hand: There is no fracture or dislocation. The joint spaces are normal. No erosions are present. Bone mineralization is normal. The soft tissues are normal. Procedure Note Garrison Can MD - 11/30/2017 Exam: 1. XR HAND LEFT 3+ VW, 2. XR HAND RIGHT 3+ VW History: pt with psoriatic arthritis, pain, right medial wrist pain afterhyperextension Comparison: Right and left hand x-rays dated 05/20/07 Findings: Right hand: No acute fracture or dislocation is seen. The joint spaces are normal.There is a small erosion in the third finger middle phalanx head which waspresent previously. A small cyst or erosion in the third distal phalanxbase has partially healed since the prior examination. A small erosion in the fourth middle phalanx head hasprogressed slightly since the prior examination. No new erosions are seen.Bone density is normal. The soft tissues are unremarkable. Left hand: There is no fracture or dislocation. The joint spaces are normal. Noerosions are present. Bone mineralization is normal. The soft tissues arenormal. IMPRESSION Impression: 1. No acute osseous abnormality. 2. Right hand x-rays demonstrate small erosions at the third and fourthdistal interphalangeal joints, which were present previously. No newerosions are seen. 3. Left hand x-rays demonstrate no significant arthritis. This report was electronically signed by GARRISON CAN MD on 08/02/20153:16 PM . April Mendoza MD DIAGNOSTIC IMAGIN G ORDERABLES * XR HAND RIGHT 3VW OR MORE (08/02/2015 2:37 PM CARDIOLOGY PHYSICIAN) Anatomical Region Laterality Modality Wrist / Hand Other Impressions 08/02/2015 3:16 PM CARDIOLOGY PHYSICIAN Impression: 1. No acute osseous abnormality. 2. Right hand x-rays demonstrate small erosions at the third and fourth distal interphalangeal joints, which were present previously. No new erosions are seen. 3. Left hand x-rays demonstrate no significant arthritis. This report was electronically signed by GARRISON CAN MD on 08/02/2015 3:16 PM . Narrative 08/02/2015 3:16 PM CARDIOLOGY PHYSICIAN Exam: 1. XR HAND LEFT 3+ VW, 2. XR HAND RIGHT 3+ VW History: pt with psoriatic arthritis, pain, right medial wrist pain after hyperextension Comparison: Right and left hand x-rays dated 05/20/07 Findings: Right hand: No acute fracture or dislocation is seen. The joint spaces are normal. There is a small erosion in the third finger middle phalanx head which was present previously. A small cyst or erosion in the third distal phalanx base has partially healed since the prior examination. A small erosion in the fourth middle phalanx head has progressed slightly since the prior examination. No new erosions are seen. Bone density is normal. The soft tissues are unremarkable. Left hand: There is no fracture or dislocation. The joint spaces are normal. No erosions are present. Bone mineralization is normal. The soft tissues are normal. Procedure Note Garrison Can MD - 11/30/2017 Exam: 1. XR HAND LEFT 3+ VW, 2. XR HAND RIGHT 3+ VW History: pt with psoriatic arthritis, pain, right medial wrist pain afterhyperextension Comparison: Right and left hand x-rays dated 05/20/07 Findings: Right hand: No acute fracture or dislocation is seen. The joint spaces are normal.There is a small erosion in the third finger middle phalanx head which waspresent previously. A small cyst or erosion in the third distal phalanxbase has partially healed since the prior examination. A small erosion in the fourth middle phalanx head hasprogressed slightly since the prior examination. No new erosions are seen.Bone density is normal. The soft tissues are unremarkable. Left hand: There is no fracture or dislocation. The joint spaces are normal. Noerosions are present. Bone mineralization is normal. The soft tissues arenormal. IMPRESSION Impression: 1. No acute osseous abnormality. 2. Right hand x-rays demonstrate small erosions at the third and fourthdistal interphalangeal joints, which were present previously. No newerosions are seen. 3. Left hand x-rays demonstrate no significant arthritis. This report was electronically signed by GARRISON CAN MD on 08/02/20153:16 PM . April Mendoza MD DIAGNOSTIC IMAGIN G ORDERABLES * CULTURE URINE REFLEXED (04/12/2015 9:11 AM CDT) Only the most recent of9 resultswithin the time period is included. Culture Urine Comprehensive NO CULTURE INDICATED [facility] ([facility]) Comment: REPORT COMMENT: SPECIMEN TYPE->URINE FASTING:YES Test Performed at: [facility] [address] [place] [address] IVY DERAS DO,MPH 04/12/2015 9:11 AM CDT 04/12/2015 9:13 AM CDT April Mendoza MD LAB - MICROBIOLOG Y ORDERABLES [facility] ([facility]) * XR CHEST 2VW (04/23/2014 3:32 PM CDT) Anatomical Region Laterality Modality Chest Other Impressions 04/23/2014 4:47 PM CDT Impression: No acute pulmonary process. Report dictated by Arlette Hodges MD (resident). This report was approved by ARLETTE HODGES on 04/23/2014 4:40 PM . I, Dr. COCO STORM M.D. have personally reviewed and interpreted this examination/study. This report was electronically signed by COCO STORM M.D. on 04/23/2014 4:47 PM . Narrative 04/23/2014 4:47 PM CDT Exam: XR CHEST PA AND LATERAL Exam Date: 04/23/2014 3:32 PM History: pt with psoriatic arthritis, on biologic Comparison: Chest radiograph dated 07/17/2011. Findings: The transvenous pacer lead is again seen to terminate in the right ventricle. There is no consolidation, pleural effusion or pneumothorax. The cardiac and mediastinal silhouettes are normal. Mild degenerative changes are seen in the thoracic spine. Procedure Note Coco Storm MD - 11/30/2017 Exam: XR CHEST PA AND LATERAL Exam Date: 04/23/2014 3:32 PM History: pt with psoriatic arthritis, on biologic Comparison: Chest radiograph dated 07/17/2011. Findings: The transvenous pacer lead is again seen to terminate in the rightventricle. There is no consolidation, pleural effusion or pneumothorax. The cardiacand mediastinal silhouettes are normal. Mild degenerative changes are seenin the thoracic spine. IMPRESSION Impression: No acute pulmonary process. Report dictated by Arlette Hodges MD (resident). This report was approved by ARLETTE HODGES on 04/23/2014 4:[address] COCO Watson M.D. have personally reviewed and interpreted thisexamination/study. This report was electronically signed by COCO STORM M.D. on 04/23/20144:47 PM . April Mendoza MD DIAGNOSTIC IMAGIN G ORDERABLES * XR SHOULDER LEFT 2VW OR MORE (01/02/2013 4:02 PM CDT) Anatomical Region Laterality Modality Upper Extremity Other Impressions 01/05/2013 9:24 AM CDT IMPRESSION: No acute osseous abnormality. This report was dictated by Bryant Garcia MD (radiology equipment servicer). Dr. DAVID Watson M.D. have personally reviewed and interpreted this examination/study. This report was electronically signed by DAVID BURNETT M.D. on 01/05/2013 9:24 AM . Narrative 01/05/2013 9:24 AM CDT EXAM: LEFT SHOULDER, 2 VIEWS DATE: 01/02/2013 HISTORY: Pain. Recent injury. Psoriatic arthritis. COMPARISON: None FINDINGS: The osseous structures are intact and well aligned. There is no cortical disruption, periosteal reaction or demineralization. There is chronic bone production and sclerosis at the inferior margin of the glenoid likely representing a Bankart injury from old prior trauma. There is no focal soft tissue swelling. Procedure Note David Burnett MD - 12/01/2017 EXAM: LEFT SHOULDER, 2 VIEWS DATE: 01/02/2013 HISTORY: Pain. Recent injury. Psoriatic arthritis. COMPARISON: None FINDINGS: The osseous structures are intact and well aligned. There is nocortical disruption, periosteal reaction or demineralization. There ischronic bone production and sclerosis at the inferior margin of theglenoid likely representing a Bankart injury from old prior trauma. There is no focal soft tissue swelling. IMPRESSION IMPRESSION: No acute osseous abnormality. This report was dictated by Bryant Garcia MD (radiology equipment servicer). Dr. DAVID Watson M.D. have personally reviewed and interpreted thisexamination/study. This report was electronically signed by DAVID BURNETT M.D. on 01/05/20139:24 AM . April Mendoza MD DIAGNOSTIC IMAGIN G ORDERABLES * XR CLAVICLE LEFT 2VW (01/02/2013 4:02 PM CDT) Anatomical Region Laterality Modality Upper Extremity, Chest Other Impressions 01/05/2013 9:23 AM CDT IMPRESSION: No acute osseous abnormality. This report was dictated by Bryant Garcia MD (radiology equipment servicer). Dr. DAVID Watson M.D. have personally reviewed and interpreted this examination/study. This report was electronically signed by DAVID BURNETT M.D. on 01/05/2013 9:23 AM . Narrative 01/05/2013 9:23 AM CDT EXAM: LEFT CLAVICLE, 2 VIEWS DATE: 01/02/2013 HISTORY: Pain. Recent injury. Psoriatic arthritis. COMPARISON: None FINDINGS: The osseous structures are intact and aligned. The acromioclavicular joint appears normal. There is no cortical disruption, focal demineralization or focal soft tissue swelling. Procedure Note David Burnett MD - 12/01/2017 EXAM: LEFT CLAVICLE, 2 VIEWS DATE: 01/02/2013 HISTORY: Pain. Recent injury. Psoriatic arthritis. COMPARISON: None FINDINGS: The osseous structures are intact and aligned. Theacromioclavicular joint appears normal. There is no cortical disruption,focal demineralization or focal soft tissue swelling. IMPRESSION IMPRESSION: No acute osseous abnormality. This report was dictated by Bryant Garcia MD (radiology equipment servicer). Dr. DAVID Watson M.D. have personally reviewed and interpreted thisexamination/study. This report was electronically signed by DAVID BURNETT M.D. on 01/05/20139:23 AM . April Mendoza MD DIAGNOSTIC IMAGIN G ORDERABLES * NM MYOCARD PERFUSION SPECT STRESS AND REST (05/28/2012 11:57 AM CDT) Only the most recent of2 resultswithin the time period is included. Anatomical Region Laterality Modality Chest Nuclear Medicine 05/28/2012 1:31 PM CDT Impressions 05/28/2012 3:34 PM CDT 1. No evidence of exercise-induced myocardial perfusion abnormalities. 2. Normal left ventricular wall motion, with a composite left ventricular ejection fraction of 64%. Narrative 05/28/2012 3:34 PM CDT NM MYOCARDIAL SPECT SCAN INDICATION: CAD, post stent placement. Hypertension. Elevated cholesterol value. RADIOPHARMACEUTICAL: 10.0 mCi of Tc99m Tetrofosmin at rest and 30.0mCi Tc99m Tetrofosmin at stress. TECHNIQUE: After the resting SPECT images were made, the patient exercised for 9 minutes 16 seconds. The stress dose of tracer was given, and the patient was reimaged, using SPECT technique. FINDINGS: Stress and resting images show uniform tracer distribution throughout the left ventricle. No fixed or reversible perfusion abnormalities are seen. WALL MOTION ANALYSIS: 3D reconstruction of the gated data shows synchronous contraction of the left ventricle. No regional wall motion abnormalities are seen. The composite left ventricular ejection fraction is 64%. Procedure Note Duncan Barahona MD - 05/28/2012 NM MYOCARDIAL SPECT SCAN INDICATION: CAD, post stent placement. Hypertension. Elevated cholesterol value. RADIOPHARMACEUTICAL: 10.0 mCi of Tc99m Tetrofosmin at rest and 30.0mCi Tc99m Tetrofosmin at stress. TECHNIQUE: After the resting SPECT images were made, the patient exercised for 9 minutes 16 seconds. The stress dose of tracer was given, and the patient was reimaged, using SPECT technique. FINDINGS: Stress and resting images show uniform tracer distribution throughout the left ventricle. No fixed or reversible perfusion abnormalities are seen. WALL MOTION ANALYSIS: 3D reconstruction of the gated data shows synchronous contraction of the left ventricle. No regional wall motion abnormalities are seen. The composite left ventricular ejection fraction is 64%. IMPRESSION 1. No evidence of exercise-induced myocardial perfusion abnormalities. 2. Normal left ventricular wall motion, with a composite left ventricular ejection fraction of 64%. Liliana Owens MD [place] ORDERABLES * ECHOCARDIOGRAM 2D WITH DOPPLER (05/28/2012 10:36 AM CDT) 05/28/2012 10:3 6 AM CDT Narrative [facility] - 05/28/2012 4:20 PM CDT ECHOCARDIOGRAPHY REPORT Transthoracic Echocardiogram 2D, M-mode, Doppler, and Color Doppler Date of Service: 05/28/2012 Patient: SHAWN SHULTZ : 1950 Age: 61 years Gender: Male Race: Height: 67 in Weight: 215 lb BSA: 2.09 m Diagnoses: 414.00 - COR ATH UNSP VSL NTV/GFT Reading Physician: Serge Russell MD Referring Physician: Liliana Owens MD NURSE COMPANION: [facility]: [facility] Summary: - Left ventricle: - Systolic function was normal. Ejection fraction was estimated in the range of 55 % to 60 %. - Although no diagnostic regional wall motion abnormality was identified, this possibility cannot be completely excluded on the basis of this study. - Doppler parameters were consistent with abnormal left ventricular relaxation (grade 1 diastolic dysfunction). Indications: Assess hypertension. Procedure: The study was performed in the [facility]. This was a routine study. The transthoracic approach was used. The study included complete 2D imaging, M-mode, complete spectral Doppler, and color Doppler. Left ventricle: Size was normal. Systolic function was normal. Ejection fraction was estimated in the range of 55 % to 60 %. Although no diagnostic regional wall motion abnormality was identified, this possibility cannot be completely excluded on the basis of this study. Wall thickness was normal. Doppler: The ratio of early ventricular filling to atrial contraction velocities was reversed. Doppler parameters were consistent with abnormal left ventricular relaxation (grade 1 diastolic dysfunction). Aortic valve: Leaflets exhibited no calcification and normal cuspal separation. Mitral valve: Valve structure was normal. There was normal leaflet separation. Doppler: The transmitral velocity was within the normal range. There was no evidence for stenosis. There was no regurgitation. Left atrium: Size was normal. Right atrium: Size was normal. Right ventricle: The size was normal. Systolic function was normal. Tricuspid valve: Doppler: There was trivial regurgitation. Pericardium: There was no pericardial effusion. System measurement tables 2D EF(Teich): 39.1 % IVSd: 1.8 cm LVIDd: 3.7 cm LVIDs: 3 cm LVPWd: 1.2 cm CW PV Vmax: 0.9 m/s AV Vmax: 1 m/s AV maxP.4 mmHg PV maxP.1 mmHg TR Vmax: 1.6 m/s TR maxP mmHg MM LA Diam: 3.7 cm AV Cusp: 2 cm PW LVOT Vmax: 0.9 m/s Lateral E/e': 6.9 MV A Jn: 0.8 m/s MV Dec Bledsoe: 2.8 m/s2 MV E Jn: 0.5 m/s Septal E/e': 6.2 Prepared and signed by Serge Russell MD Signed 05/28/2012 16:20:04 Procedure Note Serge Russell MD - 05/28/2012 ECHOCARDIOGRAPHY REPORT Transthoracic Echocardiogram 2D, M-mode, Doppler, and Color Doppler Date of Service: 05/28/2012 Patient: SHAWN SHULTZ : 1950 Age: 61 years Gender: Male Race: Height: 67 in Weight: 215 lb BSA: 2.09 m Diagnoses: 414.00 - COR ATH UNSP VSL NTV/GFT Reading Physician: Serge Russell MD Referring Physician: Liliana Owens MD NURSE COMPANION: [facility]: [facility] Summary: - Left ventricle: - Systolic function was normal. Ejection fraction was estimated in the range of 55 % to 60 %. - Although no diagnostic regional wall motion abnormality was identified, this possibility cannot be completely excluded on the basis of this study. - Doppler parameters were consistent with abnormal left ventricular relaxation (grade 1 diastolic dysfunction). Indications: Assess hypertension. Procedure: The study was performed in the [facility]. This was a routine study. The transthoracic approach was used. The study included complete 2D imaging, M-mode, complete spectral Doppler, and color Doppler. Left ventricle: Size was normal. Systolic function was normal. Ejection fraction was estimated in the range of 55 % to 60 %. Although no diagnostic regional wall motion abnormality was identified, this possibility cannot be completely excluded on the basis of this study. Wall thickness was normal. Doppler: The ratio of early ventricular filling to atrial contraction velocities was reversed. Doppler parameters were consistent with abnormal left ventricular relaxation (grade 1 diastolic dysfunction). Aortic valve: Leaflets exhibited no calcification and normal cuspal separation. Mitral valve: Valve structure was normal. There was normal leaflet separation. Doppler: The transmitral velocity was within the normal range. There was no evidence for stenosis. There was no regurgitation. Left atrium: Size was normal. Right atrium: Size was normal. Right ventricle: The size was normal. Systolic function was normal. Tricuspid valve: Doppler: There was trivial regurgitation. Pericardium: There was no pericardial effusion. System measurement tables 2D EF(Teich): 39.1 % IVSd: 1.8 cm LVIDd: 3.7 cm LVIDs: 3 cm LVPWd: 1.2 cm CW PV Vmax: 0.9 m/s AV Vmax: 1 m/s AV maxP.4 mmHg PV maxP.1 mmHg TR Vmax: 1.6 m/s TR maxP mmHg MM LA Diam: 3.7 cm AV Cusp: 2 cm PW LVOT Vmax: 0.9 m/s Lateral E/e': 6.9 MV A Jn: 0.8 m/s MV Dec Bledsoe: 2.8 m/s2 MV E Jn: 0.5 m/s Septal E/e': 6.2 Prepared and signed by Serge Russell MD Signed 05/28/2012 16:20:04 Liliana Owens MD ECHO ORDERABLES [facility] * STRESS TEST NUCLEAR (05/28/2012) Only the most recent of2 resultswithin the time period is included. 05/28/2012 Narrative Transcriptions Serge Russell MD - 05/28/2012 5:07 PM CDT [facility] Stress Test [facility] STRESS TEST PATIENT: SHAWN SHULTZ BMR#: [id number] DATE OF SERVICE: 05/28/2012CCT#: [id number] : 1950ROOM: REFERRING PHYSICIAN: ADMIT DATE: 05/28/2012 Stress Test Rest Rest Heart Rate 66 -KT Rest Blood Pressure 141/80 mmHg -KT Stage 1 Stress Test Stage 1 Heart Rate 93 -KT Stage 1 Blood Pressure 154/80 mmHg -KT Stage 2 Stress Test 2 Minute Heart Rate 105 -KT PVCS NOTED 2 Minute Blood Pressure 166/76 mmHg -KT Stage 3 Stress Test Stage 3 Heart Rate 124 -KT Stage 3 Blood Pressure 178/90 mmHg -KT Stage 4 Stress Test Medications Myoview -KT INJECTED @ 9:16 HR 130 Post Stress Test Stage Post Heart Rate 134 -KT Post Blood Pressure 176/93 mmHg -KT 2 Minute Post Stress Test 2 Minute Heart Rate 87 -KT 2 Minute Blood Pressure 168/91 mmHg -KT 4 Minute Post Stress Test Post 4 Minute Heart Rate 79 -KT 4 Minute Post Blood Pressure 152/93 mmHg -KT Predicted/Achieved Vital Signs 100% Predicted Heart Rate 159 -KT 85% Max Predicted Heart Rate 135 -KT Max Heart Rate Achieved 134 -KT Procedure Data Duration of Exercise 9:22 -KT Reason for Termination of Test -- -KT HEART RATE ACHIEVED, NEG FOR CHEST PAIN INDICATION: This 61-year-old male suffers from coronary artery diseaseand is status post stent implantation in the past. He also has a historyof hypertension and dyslipidemia. RESTING EKG: Normal sinus rhythm. Borderline first degree A-V block. INTERPRETATION: Exercise stress test was carried out using standard Bruceprotocol. The patient exercised for 9 minutes and 22 seconds and achieveda peak heart rate of 134 beats per minute which is approximately 85% ofhis maximum predicted heart rate (MET level achieved was 10 METs). Thepatient did not complain of any chest pains and no diagnostic ST-segmentabnormalities were noted. One ventricular premature contraction was seen.Resting blood pressure was 140/80 and peak blood pressure was 178/90.Myoview was injected at peak heart rate. IMPRESSIONS: 1.No diagnostic ST-segment abnormalities noted with exercise. 2.Negative for chest pain. 3.Good functional capacity. 4.Myocardial perfusion scan is pending. MD YAMILKA CASTRO/MARIZA #: [id number] STRESS TEST - DP Liliana Owens MD CARDIAC SERVICE S ORDERABLES Performing Organization Address City/[facility] Co de Phone Number [facility] * LAB HISTORICAL RESULTS-ONBASE (05/24/2012) Only the most recent of4 resultswithin the time period is included. 05/24/2012 Narrative [facility] - 08/12/2012 8:51 AM CARDIOLOGY PHYSICIAN Historical Provider LAB - CHEMISTRY O RDERABLES Performing Organization Address [facility] Co de Phone Number [facility] [address] [place] [address], [facility] [[email or web address]] * CARDIAC PACER/DEFIB ORDER (05/25/2011) Liliana Owens MD CARDIAC SERVICE S ORDERABLES * PACEMAKER ANALYSIS SINGLE WITH REPROGRAM (07/13/2010) Liliana Owens MD CARDIAC SERVICE S ORDERABLES Performing Organization Address [facility] Co de Phone Number [facility] RESULT SCAN * CARDIAC EKG ORDER (03/02/2010 3:43 PM CDT) Only the most recent of3 resultswithin the time period is included. Narrative 03/02/2010 3:43 PM CDT Ordered by an unspecified provider. Transcriptions Document, Scanned - 02/27/2010 12:00 AM CDT Scanned Document CARDIAC SERVICES ORD ERABLES * LAB RESULTS ORDER (03/01/2010 3:42 PM CDT) Narrative Procedure Note Document, Scanned - 02/27/2010 12:00 AM CDT Scanned Document LAB - THERAPEUTIC DR UG MONITORING ORDERABLES * CARDIAC PROCEDURE ORDER (03/01/2010 3:42 PM CDT) Narrative Procedure Note Document, Scanned - 02/27/2010 12:00 AM CDT Scanned Document CARDIAC SERVICES ORD ERABLES * (ABNORMAL) GLUCOSE - POINT OF CARE (02/28/2010 5:57 AM CDT) Only the most recent of3 resultswithin the time period is included. [facility] Glucose WB/POC 138(H) 75 - 110 mg/dl [facility] BLOOD SPECIMEN / Unknown 02/28/2010 5:57 AM CDT 02/28/2010 11:25 PM CDT Aldo Harrison MD LAB - POINT OF CARE ORDERABLES Performing Organization Address [facility] de Phone Number [facility] [id number] [place] [id number] * (ABNORMAL) BASIC METABOLIC PANEL (CALCIUM TOTAL) (02/28/2010 2:40 AM CDT) Pathologist [facility] BUN 17 9.0 - 20.0 mg/dl [facility] Sodium 138 137 - 145 mmol/L [facility] Potassium 3.7 3.6 - 5.0 mmol/L [facility] Chloride 100 98.0 - 107.0 mmol/L [facility] CO2 30 22.0 - 30.0 mEq/L [facility] Anion Gap 7.6 [facility] Glucose 155(H) 75 - 110 mg/dl [facility] Creatinine 1.0 0.66 - 1.25 mg/dl [facility] Calcium 8.7 8.4 - 10.2 mg/dl [facility] eGFR by MDRD 76.48 ml/min/1.7 3m2 [facility] BLOOD SPECIMEN / Unknown 02/28/2010 2:40 AM CDT 02/28/2010 3:23 AM CDT Aldo Harrison MD LAB - CHEMISTRY ORDE RABLES Performing Organization Address City/[facility] Co de Phone Number [facility] [id number] [place] [address] * CARDIAC CATH ORDER (02/28/2010 12:00 AM CDT) 02/28/2010 Narrative Procedure Note Aldo Harrison MD - 02/28/2010 [facility] CARDIAC CATHETERIZATION PATIENT: SHAWN SHULTZ MR#: [id number] ADMIT DATE: 02/27/2010 PROCEDURE DATE: 02/28/2010 : 1950 PHYSICIAN: Aldo Harrison MD ROOM: 0302 REFERRING PHYSICIAN: ALDO HARRISON MD PROCEDURE 1.Selective Left and Right Coronary Arteriography 2.Stent placement with adjunctive PTCA of the 95-99% stenosis in thefirst obtuse marginal lower branch 3.Stent placement with adjunctive PTCAof the mid up to 80% eccentric stenosis CLINICAL SUMMARY: Mr. Shultz was admitted for guiding angiography and possible percutaneousintervention after undergoing cardiac catheter[facility] which revealed two vesselbranch coronary artery disease. PROCEDURE The #5 Fr sheath in the right femoral artery was exchanged over a wirefor a #7 Fr sheath. A #7 Fr CLS4 3.5 guiding catheter was advanced throughthe sheath and successfully cannulated the left main artery. A .014 HTSport wire and was then advanced over the guiding catheter andsuccessfully crossed the left circumflex - obtuse marginal stenosis. A2.75 x 8 mm Xyience stent was then advanced over the wire to the site ofstenosis and deployed with 14 carmelita inflation of the stent balloon for 15seconds. Dissection was noted in the outflow of the stent. It wastherefore elected to place an overlapping stent. A 2.75 x 12 mm Xyiencestent was then advanced over the wire to the site of stenosis and carmelita inflation of the stent balloon for 15 seconds. A residual stenosisof 0% was noted. The patient and his , who is a nurse, elected topursue a drug-eluting stent. Attention was then directed to the rightcoronary artery. A #7 Fr sheath was already in place in the right femoralartery. A #7 Fr CLS 3.5 guiding catheter was changed over a wire to a #7Fr JR4 guiding catheter with sideholes. Guiding angiography confirmed themid up to 70-80% stenosis proximal to an area of ectasia. It was electedto proceed with percutaneous intervention. A 0.014 HT Sport wire was thenadvanced through the guiding catheter and successfully crossed the rightcoronary artery stenosis. A 3.0 x 15 mm Xyience stent was then advancedover the wire to the site of stenosis and deployed with 14 carmelita inflationof the stent balloon for 15 seconds. A residual stenosis of 0% was noted. RECOMMENDATIONS: 1.Discontinue sheath. 2.IV hydration. 3.IV Reopro. 4.Aspirin and Effient. I would like to take this opportunity to thank you for letting meparticipate in the care of this very interesting patient. ALDO HARRISON MD ASN/LM #: [id number] MEDICAL/SURGICAL CARDIAC CATHETERIZATION - DP Aldo Harrison MD CARDIAC BUSINESS TEST ANALYST ORD ERABLES * PTT (02/27/2010 4:30 PM CDT) [facility] PTT 24.4 24.0 - 32.0 seconds [facility] BLOOD SPECIMEN / Unknown 02/27/2010 4:30 PM CDT 02/27/2010 4:37 PM CDT Aldo Harrison MD LAB - COAGULATION OR DERABLES Performing Organization Address [facility] Co de Phone Number [facility] [address] [place] [address] * PLATELET COUNT AUTO (02/27/2010 4:30 PM CDT) [facility] Platelet Count 199 130.0 - 400.0 1000/mm3 [facility] BLOOD SPECIMEN / Unknown 02/27/2010 4:30 PM CDT 02/27/2010 4:38 PM CDT Aldo Harrison MD LAB - HEMATOLOGY ORD ERABLES Performing Organization Address [facility] de Phone Number [facility] [address] [place] [address] * (ABNORMAL) ACT - POINT OF CARE (02/27/2010 12:32 PM CDT) Only the most recent of2 resultswithin the time period is included. [facility] ACT POCT 239(A) 125 - 187 Seconds DP POCT TESTING QC Verified yes Yes DP POC T TESTING Blood specimen (specimen) BLOOD SPECIMEN / Unknown 02/27/2010 12:32 PM CDT Aldo Harrison MD LAB - POINT OF CARE ORDERABLES [facility] POCT TESTING [address] [place] [address] * CARDIAC STRESS TEST ORDER (02/02/2010) Liliana Owens MD CARDIAC SERVICE S ORDERABLES * PACEMAKER ANALYSIS SINGLE WITHOUT REPROGRAM (06/13/2009) Liliana Owens MD CARDIAC SERVICE S ORDERABLES [facility] RESULT SCAN Care Teams Note Teller Relationship Specialty Start Date End Date Maryann Jiménez DO [address] [place] [address] PCP - General 09/07/22
--- OUTSIDE RECORDS SUMMARY | 2024-11-12 00:12 | XMS_ITS | Encounter Summary ---
Author Organization [facility] Health Address [address] [place] [address] Care Team Providers Care Video Game Developer Name Role Phone Unknown, Provider Primary Care Provider Unavaila ble Chai Giraldo MD Primary Care Provider [phone] Syl Mcadams MD Primary Care Provider [phone] Maryann Jiménez DO Primary Care Provider [phone] Encounter Details Date Type Department Care Team (Late st Contact Info) Description 03/03/2012 [facility]PT Liliana Owens MD [address] [place] [address] Social History Tobacco Use Types Packs/Day Years Used Date Smoking Tobacco: Never Assessed Sex and Gender Information Value Date Recorded Sex Assigned at Not on file Gender Identity Not on file Sexual Orientation Not on file documented as of this encounter Plan of Treatment Not on file documented as of this encounter Visit Diagnoses Not on filedocumented in this encounter Care Teams Video Game Developer Relationship Specialty Start Date End Date Unknown, Provider PCP - General 02/27/10 01/19/14 Chai Giraldo MD [address] [place] [phone] PCP - General 12/24/17 04/28/18 Syl Mcadams MD [address] [place] [address] PCP - General 04/29/18 09/06/22 Maryann Jiménez DO [address] [place] [address] PCP - General 09/07/22 documented as of this encounter
--- OUTSIDE RECORDS SUMMARY | 2024-11-12 00:12 | XMS_ITS | Referral Summary ---
Author Organization [facility] Address [facility] [place] [address] Care Team Providers Care Datacap Developer Name Role Phone Maryann Jiménez DO Primary Care Provider + Jose David Betancourt MD Unavailable [phone] Encounters Date Type Department Care Team Description 10/28/2024 Telephone [facility] Cardiology [address] [facility] [address] [place] [phone] Matthew Gustafson MD r/s [facility] 10/28/2024 Results Follow-Up [facility] Cardiology at [address] [place] [phone] Matthew Gustafson MD 10/26/2024 10:15 AM CAMPAIGN MARKETING MANAGER Ancillary Procedure [facility] [address] [facility] [address] [place] [phone] Coronary arteriosclerosis in [place] artery; Hyperlipidemia associated with type 2 diabetes mellitus (HCC); Hypertension associated with diabetes (HCC) 10/07/2024 Telephone [facility] Cardiology [address] [facility] [address] [place] [phone] Matthew Gustafson MD 08/17/2024 11:30 AM CAMPAIGN MARKETING MANAGER Office Visit [facility] [address] [place] [address] Alireza Clark MD Type 2 diabetes mellitus with hyperglycemia, with long-term current use of insulin (HCC) (Primary Dx) from Last 3 Months Allergies Active Allergy Reactions Criticality Noted Date [...] 1 tablet (100 mcg total) by 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 Avoid live-vaccines unless reviewed with director of primary care first. Insomnia secondary to chronic pain 01/05/2021 Degenerative disc disease, cervical 02/10/2020 Cervical myofascial pain syndrome 02/10/2020 Cervical radiculopathy 02/10/2020 Hypertriglyceridemia 08/17/2019 Palpitations 08/17/2019 Hypertension associated with diabetes 08/07/2017 Disease of thyroid gland 08/07/2017 Diabetes mellitus 08/07/2017 Assessment & Plan (08/17/2024 11:11 AM CAMPAIGN MARKETING MANAGER): Chronic, worsening. Restart Trulicity 3 mg weekly [...] and Trulicity Send me a message via [employer] every week, so we can look at your sugars data Hyperlipidemia associated with type 2 diabetes jeremias valverde 02/05/2017 Assessment & Plan (03/31/2024 4:40 PM [...] Overview (12/08/2016): Essential hypertension Coronary arteriosclerosis in [place] artery 09/28 Overview (12/08/2016): Coronary artery disease involving [place] coronary artery of [place] heart without angina pectoris Arthralgia of shoulder 09/04/2013 Chronic purulent otitis media 07/14/2013 Overview (12/07/2016): CHR SUP OTITIS MEDIA NOS Neural hearing loss, bilateral 07/14/2013 Overview (12/08/2016): Neural Hearing Loss Bilat Brachial neuritis 02/03/2013 Cervicalgia 02/02/2013 Lumbago 01/30/2013 Immunizations Immunization Administration Dates Next Due Influenza, [...] YRS) 08/10/2022 Pneumococcal Conjugate PCV 13 05/25/2016 Social History Tobacco Use Types Packs/Day Years Used Date Smoking Tobacco: Former Cigarettes Q uit: 04/28/1983 Smokeless Tobacco: Never Tobacco Cessation:Counseling Given: Not Answered Comments:quite smoking 1982 Alcohol Use Standard Drinks/Week Comments Yes 0 (1 standard drink = 0.6 oz pur e alcohol) [facility] Utilities Answer Date Recorded In the past [...] often do you attend chur ch or restorationism services? 1 to 4 times per year 02/12/2024 Do you belong to any clubs o r organizations such as moravian groups, unions, fraternal or athletic groups, or [...] any time in the past 12 m ont, were you homeless or living in a penitentiary (including now)? No 02/12/2024 Personal Safety Answer Date Recorded Have you ever been in or are you currently in a harmful physical or emotional relationship or is someone making you feel afraid or unsafe? Denies 06/21/2024 Sex and Gender Information Value Date Recorded Sex Assigned at Not on file Legal Sex Male 3:55 AM CAMPAIGN MARKETING MANAGER Gender Identity Male 01/23/2020 12:25 AM CDT Sexual Orientation Straight 01/23/2020 12 :25 AM CDT Last Filed Vital Signs Vital Sign Reading Time Taken Comments Blood Pressure 122/70 08/17/2024 10:39 AM CAMPAIGN MARKETING MANAGER Pulse 68 08/17/2024 10:39 AM CAMPAIGN MARKETING MANAGER Temperature 36.9 C (98.5 F) 08/17/2024 10:39 AM CAMPAIGN MARKETING MANAGER Respiratory Rate 14 08/17/2024 10:39 AM CAMPAIGN MARKETING MANAGER Oxygen Saturation 95% 07/10/2024 2:46 PM CAMPAIGN MARKETING MANAGER Inhaled Oxygen Concentration - - Weight 93.1 kg (205 lb 3.2 oz) 08/17/2024 10:39 AM CAMPAIGN MARKETING MANAGER Height 170.2 cm (5' 7 ) 08/17/2024 10:39 AM CAMPAIGN MARKETING MANAGER Body Mass Index 32.14 08/17/2024 10:39 AM CAMPAIGN MARKETING MANAGER Plan of Treatment Not on file Goals Goal Patient Goal Type Associated Problems Recent Progress Patient-Stated? Author [facility] Worsening(01/2021 2:46 PM CDT) No Flor Lewis, TOÑO Note: Play golf with minimal to no relief. Medical Devices Implanted Type Area Saw Runner Device Identifier Shelf Expiration Date Model / Serial / Lot [employer] Ams 700 Kit Accessory Penile Prosthesis [id number] - [id number] Implanted:Qty: 1 on 06/18/2024 by Jose David Betancourt MD at [facility] N/A: Groin [employer] [id number] 04/08/2029 [id number] / / [id number] [employer] Ams Spectra 12/14mm .5cm Cylinder Concealable Malleable Rear Tip [id number] - [id number] Implanted:Qty: 1 on 06/18/2024 by Jose David Betancourt MD at [facility] N/A: Penis [employer] [id number] 02/15/2029 [id number] / / [id number] [employer] Ams 700 Preconnect 1 Ms Pump 2 Cylinder Penoscrotal Prosthesis [id number] - [id number] Implanted:Qty: 1 on 06/18/2024 by Jose David Betancourt MD at [facility] N/A: Penis [employer] [id number] 10/13/2025 [id number] / / [id number] [employer] Conceal Low Profile Quitman 100ml Prosthesis Inhibizone Sterile Latex Free [id number] - [id number] Implanted:Qty: 1 on 06/18/2024 by Jose David Betancourt MD at [facility] Left: Pelvis [employer] [id number] 04/22/2026 [id number] / / [id number] Procedures Procedure Name Priority Date/Time Associated Diagnosis Comments NM MPI SPECT (REST AND/OR STRESS) MULTIPLE STUDIES Schedule Routine, Read Routine (OP Routine) 10/26/2024 12:55 PM CAMPAIGN MARKETING MANAGER Coronary arteriosclerosis in [place] artery Hyperlipidemia associated with type 2 diabetes mellitus (HCC) Hypertension associated with diabetes (HCC) POCT GLUCOSE Routine 08/17/2024 10:40 AM CAMPAIGN MARKETING MANAGER Type 2 diabetes mellitus with hyperglycemia, with long-term current use of insulin (HCC) POCT HEMOGLOBIN A1C Routine 08/17/2024 10:40 AM CAMPAIGN MARKETING MANAGER Type 2 diabetes mellitus with hyperglycemia, with long-term current use of insulin (HCC) EGFR STAT 06/21/2024 9:56 AM CDT LIPID [...] and/or Stress) Multiple Studies (10/26/2024 12:55 PM CAMPAIGN MARKETING MANAGER) Anatomical Region Laterality Modality Body N/A Nuclear Medicine 10/26/2024 11:1 3 AM CAMPAIGN MARKETING MANAGER Narrative 10/26/2024 6:41 PM CAMPAIGN MARKETING MANAGER [facility] Cardiology [address] [facility] [address] [address] [address] [facility] [address], [place] [address] P:[phone] P:[phone] MPI Imaging Report Patient Name: SHAWN SHULTZ Simone : 1950 Study Date: 10/26/2024 11:13:56 AM Gender: M Tech: [facility] Location: [facility] Provider: MATTHEW GUSTAFSON Height(Cm): 170.2 BSA: Weight(Kg): 93.1 BMI: 32.14 Order Provider: MATTHEW GUSTAFSON PHYSICIAN: Referring Physician: Dr. Jiménez. HCG Physician: Warren Gustafson M.D. Interpreting Physician: Duy Cowan M.D.,Rd Stress Supervision: Duy Cowan M.D.,Mikie. PROCEDURES: Pharmacologic SPECT Report: Myocardial perfusion imaging with Tc99M Sestamibi SPECT at rest and stress post regadenoson (Lexiscan) infusion. Treadmill stress converted to an ambulatory Lexiscan stress at 6:23 due to unable to keep up with treadmill and unable to reach target heart rate. INDICATIONS: Family Hx CAD, Former Smoker, I25.10 Atherosclerotic heart disease of [place] coronary artery without angina pectoris, E11.69 Type [...] ischemia. Electronically Signed By: Duy Cowan MD, [facility] 10/26/2024 5:46:40 PM CAMPAIGN MARKETING MANAGER Electronically Signed By: Duy Cowan MD, [facility] 10/26/2024 5:46:40 PM CAMPAIGN MARKETING MANAGER Procedure Note Duy Cowan MD - 10/26/2024 [facility] Cardiology [address] [facility] [address], [place] [address] [address] [facility] [address], [place] [address] P:[phone] P:[phone] MPI Imaging Report Patient Name: SHAWN SHULTZ B : 1950 Study Date: 10/26/2024 11:13:56 AM Gender: M Tech: [facility] Location: [facility] Provider: MATTHEW GUSTAFSON Height(Cm): 170.2 BSA: [...] or superimposed ischemia. Electronically Signed By: Duy oCwan MD, [facility] 10/26/2024 5:46:40 PM CAMPAIGN MARKETING MANAGER Electronically Signed By: Duy Cowan MD, [facility] 10/26/2024 5:46:40 PM CAMPAIGN MARKETING MANAGER Matthew Gustafson MD IMG NM PROCEDURES Final R esult * (ABNORMAL) POCT hemoglobin A1c (08/17/2024 10:40 AM CAMPAIGN MARKETING MANAGER) Hemoglobin A1C, POC 7.8 4.0 - 5.6 % Comment:None Capillary blood 08/17/2024 1 0:40 AM CAMPAIGN MARKETING MANAGER us Alireza Clark MD POINT OF CARE TEST ORDERABLES Fi nal Result * (ABNORMAL) POCT glucose (08/17/2024 10:40 AM CAMPAIGN MARKETING MANAGER) Glucose Blood, POC 177 mg/dL Comment:None Blood 08/17/2024 10:4 0 AM CAMPAIGN MARKETING MANAGER us Alireza Clark MD POINT OF CARE TEST [...] MD LAB BLOOD ORDERABLES Final Res ult [facility] Department [place] [address] * (ABNORMAL) Albumin Creatinine Ratio, Urine (04/01/2024 11:09 AM CDT) Albumin Ur 19.5 mg/L Comment: Interpretive Data No reference range established. Current interpretive data was last revised 2019. Creatinine Ur 60.3 mg/dL [facility] Comment: Interpretive Data No reference range established. Current interpretive data was last revised 2019. Albumin Creatinine Ratio, Ur 32(H) 1 - 29 mg/g [facility] Urine 04/01/2024 11:0 9 AM CDT 04/01/2024 5:29 PM CDT Alireza Clark MD LAB URINE ORDERABLES Final Resul t [facility] [address] [facility] Department [place] [address] * (ABNORMAL) Lipid panel (04/01/2024 11:09 AM [...] on 2018. HDL 35(L) >=40 mg/dL [facility] Comment: Interpretive Data Ages < [...] 2018. LDL, calculated 69 <=129 mg/dL [facility] Comment: Interpretive Data Ages < [...] on 2018. Non-HDL Cholesterol 92 mg/dL [facility] Comment: Interpretive Data Ages < [...] BLOOD ORDERABLES Final Resul t [facility] [place] [address] [place] [address] from Last 3 Months or Most Recently Relevant to Health Maintenance Insurance MEDICARE [facility] Address[facility] [address] [place] [address] FOR LIFE FOR LIFE MEDICARE [employer] MEDICARE Address: [facility] [address] [place] [address] [email or web address] MEDICARE [employer] [facility] MEDICARE Address: [facility] [address] [place] [address] Advance Directives For more information, please contact: [phone] * Full Code (Latest Code Status on File) Date Activated Date Inactivated Comments 06/18/2024 3:52 PM 06/19/2024 10:57 PM * Full Code Date Activated Date Inactivated Comments 02/11/2024 3:49 PM 02/12/2024 6:22 PM Care Teams Datacap Developer Relationship Specialty Start Date End Date Maryann Jiménez DO PCP - General Family Medicine 07/03/22 Jose David Betancourt MD [address] [facility] [address] [place] [address] Consulting Physician Urology 06/19/24
--- OUTSIDE RECORDS SUMMARY | 2024-11-12 00:12 | XMS_ITS | Encounter Summary ---
Author Organization [facility] Address [address] [place] [address] Care Team Providers Care Store Lead Name Role Phone Unknown, Provider Primary Care Provider Unavaila ble Chai Giraldo MD Primary Care Provider [phone] Syl Mcadams MD Primary Care Provider [phone] Maryann Jiménez DO Primary Care Provider [phone] Encounter Details Date Type Department Care Team (Late st Contact Info) Description 01/02/2010 [facility] Liliana Owens MD [address] [place] [address] Social History Tobacco Use Types [...] on filedocumented in this encounter Care Teams Store Lead Relationship Specialty Start Date End Date Unknown, Provider PCP - General 02/27/10 01/19/14 Chai Giraldo MD [address] [place] [address] PCP - General 12/24/17 04/28/18 Syl Mcadams MD [address] [place] [address] PCP - General 04/29/18 09/06/22 Maryann Jiménez DO [address] [place] [address] PCP - General 09/07/22 documented as of this encounter
--- OUTSIDE RECORDS SUMMARY | 2024-11-12 00:12 | XMS_ITS | Encounter Summary ---
Author Organization [facility] Address [address] [facility] [place] [address] Care Team Providers Care Internet Merchant Name Role Phone Syl Mcadams MD Primary Care Provider [phone] Maryann Jiménez DO Primary Care Provider [phone] Reason for Visit * Reason Onset Date Comments MEDICATION REFILL 11/08/2020 Encounter Details Date Type Department Care Team (Late st Contact Info) Description 11/08/2020 Refill [facility] [address] [place] [address], [place] [address] Nico Jones MD [address] [place] [address] [place] [address] MEDICATION REFILL Social History Tobacco Use Types Packs/Day Years [...] on file documented as of this encounter Miscellaneous Notes * Telephone Encounter - Shanelle Harris - 11/08/2020 9:44 AM CST Refill Request Ced Mccracken SELWYN: 04/19/20 NOV scheduled: 12/20/2020 LRF:04/22/20 Qty Disp:12 pen # of refills:1 Allergies: Allergies Allergen Reactions ??? Codeine Nausea and/or Vomiting ??? Enalapril Other Cough ??? Atropine Other Bradycardia Pended Medication Order: Requested Prescriptions Pending Prescriptions Disp Refills ??? 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
--- OUTSIDE RECORDS SUMMARY | 2024-11-12 00:12 | XMS_ITS | Continuity of Care Document ---
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 It does not include entries that were removed or entered in error. Problem Status Onset Date Problem Type Date of Resolution Comments Source Hearing Loss, Sensorineural, Unspecified Active Condition [facility] Medications Combined list of outpatient medications from Department of [facility] and [facility] facilities.Medications provided include 1) outpatient medications from the last 15 months, and 2) patient-reported medications. Medication Details Route Status Patient Instructions Prescription Expires Prescription Number Last Dispense Date Ordering Provider Order Date Order Qty Source Alcohol Antiseptic (Alcohol Swabs Eq.) Pads 70% Topical For external use. Active 01/14/2025 [id number] 4 [address] [place] [address]) Alcohol Antiseptic (Alcohol Swabs Eq.) Pads 70% Topical For external use. Active 11/20/2024 [id number] 4 [address] [place] [address]) Alcohol Antiseptic (Alcohol Swabs Eq.) Pads 70% Topical For external use. 10/16/2024 [id number] 4 [address] [place] [address]) alcohol prep pad [100EA] See Instruct erin, # 200 EA, 2 total refill(s ), Hard Stop Ordered 09/30/2025 5 2024 200.0 Ambulat ory Pharmac y alcohol prep pad [100EA] See Instruct erin, # 200 EA, 2 total refill(s ), Hard Stop Discont inued 10/05/2024 4 2024 200.0 Ambulat ory Pharmac y alcohol prep pad [100EA] See Instruct erin, # 100 EA, 1 total refill(s ), Hard Stop Discont inued 11/21/2023 4 2023 100.0 Ambulat ory Pharmac y amLODIPine 2.5 MG ORAL TAB Be careful if taking OTCs.Hector e or use exactly as directed . 10/16/2024 [id number] 4 2023 90 [facility] [place] ([facility] amLODIPine 2.5 mg tablet See Instruct ions, # 90 EA, 1 total refill(s ), Hard Stop Complet ed 04/23/2024 3 2023 90.0 Ambulat ory Pharmac y amLODIPine 2.5 mg tablet See Instruct ions, # 90 EA, 1 total refill(s ), Hard Stop Complet ed 10/16/2024 4 2024 90.0 Ambulat ory Pharmac y atorvastati n 40 mg tablet See Instruct ions, # 90 EA, 1 total refill(s ), Hard Stop Discont inued 04/06/2024 3 2023 90.0 Ambulat ory Pharmac y atorvastati n 40 mg tablet 40 mg, Oral, Daily, # 90 EA, 1 total refill(s ), Hard Stop Oral (given by mouth) Ordered 03/30/2025 4 2023 90.0 Ambulat ory Pharmac y BD Lyudmila 2nd Gen pen needle 32g 4mm [100EA] See Instruct ions, # 100 EA, 0 total refill(s ), Hard Stop Ordered 11/20/2024 4 2023 100.0 Ambulat ory Pharmac y BD Lyudmila 2nd Gen pen needle 32g 4mm [100EA] See Instruct ions, # 400 EA, 3 total refill(s ), Hard Stop Ordered 09/30/2025 5 2024 400.0 Ambulat ory Pharmac y BD Lyudmila 2nd Gen pen needle 32g 4mm [100EA] See Instruct ions, # 100 EA, 2 total refill(s ), Hard Stop Discont inued 03/02/2024 4 2023 100.0 Ambulat ory Pharmac y BD Lyudmila 2nd Gen pen needle 32g 4mm [100EA] See Instruct ions, # 200 EA, 2 total refill(s ), Hard Stop Ordered 03/02/2025 4 2023 200.0 Ambulat ory Pharmac y CELECOXIB (U/D) 100 MG ORAL CAP Take with plenty of water.Ta ke with food/mil k.Obtain advice for OTCs.Do not take if . 11/10/2024 [id number] 4 [address] [place] [address]) celecoxib 100 mg capsule 100 mg, Oral, BID, # 60 EA, 1 total refill(s ), Hard Stop Oral (given by mouth) Complet ed 11/10/2024 4 2024 60.0 Ambulat ory Pharmac y cyanocobala min 1000 mcg/mL inj-vial [1mL] See Instruct ions, # 13 mL, 1 total refill(s ), Hard Stop Complet ed 02/20/2024 3 2023 13.0 Ambulat ory Pharmac y Dulaglutide 6 mg/mL, Injection, 0.5mL Autoinjecto r refriger ate Active 11/20/2024 [id number] 4 [address] [place] [address]) FINASTERIDE 5 MG ORAL TAB Do not take if . Active 11/20/2024 [id number] 4 [address] [place] [address]) finasteride 5 mg tablet 5 mg, Oral, Daily, # 90 EA, 1 total refill(s ), Hard Stop Oral (given by mouth) Discont inued 10/05/2024 4 2024 90.0 Ambulat ory Pharmac y finasteride 5 mg tablet 5 mg, Oral, Daily, # 90 EA, 1 total refill(s ), Hard Stop Oral (given by mouth) Ordered 09/30/2025 5 2024 90.0 Ambulat ory Pharmac y finasteride 5 mg tablet See Instruct ions, # 90 EA, 1 total refill(s ), Hard Stop Complet ed 04/24/2024 3 2023 90.0 Ambulat ory Pharmac y Freestyle 28g lancets [100EA] See Instruct ions, # 100 EA, 1 total refill(s ), Hard Stop Ordered 11/20/2024 4 2023 100.0 Ambulat ory Pharmac y freestyle lite (glucose) test strip [50EA] See Instruct ions, # 100 EA, 2 total refill(s ), Hard Stop Ordered 01/14/2025 4 2023 100.0 Ambulat ory Pharmac y GLIMEPIRIDE 4 MG ORAL TAB Do not drink alcohol. Avoid exposure to sun.Take or use exactly as directed . 10/16/2024 [id number] 4 2023 180 [facility] [place] ([facility] glimepiride 4 mg tablet See Instruct ions, # 180 EA, 1 total refill(s ), Hard Stop Complet ed 04/23/2024 3 2023 180.0 Ambulat ory Pharmac y glimepiride 4 mg tablet See Instruct ions, # 180 EA, 1 total refill(s ), Hard Stop Complet ed 10/16/2024 4 2024 180.0 Ambulat ory Pharmac y hydrochloro thiazide-te lmisartan 12.5 mg-40 mg oral tablet TAKE ONE TABLET BY MOUTH EVERY MORNING, # 90 EA, 1 total refill(s ), Acute Complet ed 10/30/2023 3 2023 90.0 Ambulat ory Pharmac y hydrOXYzine pamoate 50 mg capsule See Instruct ions, 0, # 30 EA, 0 total refill(s ), Hard Stop Discont inued 07/02/2023 3 2022 30.0 Ambulat ory Pharmac y ibuprofen 800 mg tablet See Instruct ions, # 90 EA, 0 total refill(s ), Hard Stop Discont inued 07/02/2023 3 2022 90.0 Ambulat ory Pharmac y INSULIN LISPRO KWIKPEN U-100 (insulin lispro), 100/ML, INSULN PEN, SUBCUT, TANISHA ERIBERTO [employer] CO., 3 ml SYRINGE Active [id number] 4 2023 15 Pharmac y Data Transac tion Service Facilit y JARDIANCE (EMPAGLIFLO ZIN), 25 MG, TABLET, ORAL, BOEHRINGER ING., 30 ea. BOTTLE Active [id number] 4 2023 90 Pharmac y Data Transac tion Service Facilit y JARDIANCE (EMPAGLIFLO ZIN), 25 MG, TABLET, ORAL, BOEHRINGER ING., 30 ea. BOTTLE Active [id number] 4 2023 90 Pharmac y Data Transac tion Service Facilit y levothyroxi ne (Synthroid) 100 mcg tablet 100 mcg, Oral, every morning, # 90 EA, 1 total refill(s ), Hard Stop Oral (given by mouth) Ordered 09/30/2025 5 2024 90.0 Ambulat ory Pharmac y levothyroxi ne (Synthroid) 100 mcg tablet 100 mcg, See Instruct ions, Oral, every morning, # 90 EA, 1 total refill(s ), Hard Stop Oral (given by mouth) Discont inued 04/06/2024 3 2023 90.0 Ambulat ory Pharmac y levothyroxi ne (Synthroid) 100 mcg tablet 100 mcg, Oral, every morning, # 90 EA, 1 total refill(s ), Hard Stop Oral (given by mouth) Discont inued 10/05/2024 4 2024 90.0 Ambulat ory Pharmac y Levothyroxi ne Sodium ([place]) Tablet 100 mcg Oral Take on empty stomach. Take with plenty of water.Be careful if taking OTCs.Hector e or use exactly as directed . 10/16/2024 [id number] 4 2023 90 [facility] ([facility]) meloxicam (U/D) 7.5 MG ORAL TAB Take with food/mil k.Obtain advice for OTCs.Do not take if . 10/16/2024 [id number] 4 [address] [place] [address]) meloxicam 7.5 mg tablet See Instruct ions, # 60 EA, 1 total refill(s ), Hard Stop Discont inued 11/12/2023 4 2023 60.0 Ambulat ory Pharmac y metFORMIN 1000 mg tablet 1000 mg, Oral, Daily, # 90 EA, 1 total refill(s ), Hard Stop Oral (given by mouth) Ordered 09/30/2025 5 2024 90.0 Ambulat ory Pharmac y metFORMIN 1000 mg tablet 1000 mg, Oral, BID, # 180 EA, 3 total refill(s ), Hard Stop Oral (given by mouth) Discont inued 10/05/2024 4 2024 180.0 Ambulat ory Pharmac y Metformin Hydrochlori de Tablet Extended Release 1,000 mg Oral Do not drink alcohol. Take with food/mil k.Take or use exactly as directed .Obtain advice for OTCs.Samanta ck with your doctor before becoming . Active 01/14/2025 [id number] 4 [address] [place] [address]) metFORMIN XR 500 mg/24 hour tablet See Instruct ions, # 90 EA, 1 total refill(s ), Hard Stop Complet ed 04/23/2024 3 2023 90.0 Ambulat ory Pharmac y metoprolol succ (U/D) 25 MG ORAL TB24 Be careful if taking OTCs.Hector e with food/mil k.Take or use exactly as directed .May impair driving. Swallow whole.Ma y cause drowsine ss/dizzi ness. 10/16/2024 [id number] 4 [address] [place] [address]) metoprolol succinate ER 25 mg/24 hour tablet 25 mg, Oral, Daily, # 90 EA, 1 total refill(s ), Hard Stop Oral (given by mouth) Ordered 09/30/2025 5 2024 90.0 Ambulat ory Pharmac y metoprolol succinate ER 25 mg/24 hour tablet See Instruct ions, # 90 EA, 1 total refill(s ), Hard Stop Discont inued 04/06/2024 4 2023 90.0 Ambulat ory Pharmac y metoprolol succinate ER 25 mg/24 hour tablet 25 mg, Oral, Daily, # 90 EA, 1 total refill(s ), Hard Stop Oral (given by mouth) Discont inued 10/05/2024 4 2024 90.0 Ambulat ory Pharmac y Micardis HCT 40 mg- 12.5 mg tablet = 1 tab(s), Oral, every morning, # 90 EA, 1 total refill(s ), Hard Stop Oral (given by mouth) Ordered 09/30/2025 5 2024 90.0 Ambulat ory Pharmac y Micardis HCT 40 mg- 12.5 mg tablet See Instruct ions, # 90 EA, 1 total refill(s ), Hard Stop Discont inued 04/06/2024 3 2023 90.0 Ambulat ory Pharmac y Micardis HCT 40 mg- 12.5 mg tablet = 1 tab(s), Oral, every morning, # 90 EA, 1 total refill(s ), Hard Stop Oral (given by mouth) Discont inued 10/05/2024 4 2024 90.0 Ambulat ory Pharmac y LYUDMILA 2ND GEN PEN NEEDLE (pen needle, diabetic), 32GX 5/32 , DIS NEEDLE, MISCELL, BD DIABETES/EM B, 100 ea. BOX Cancele d [id number] : 2023 0 Pharmac y Data Transac tion Service Facilit y LYUDMILA 2ND GEN PEN NEEDLE (pen needle, diabetic), 32GX 5/32 , DIS NEEDLE, MISCELL, BD DIABETES/EM B, 100 ea. BOX Active [id number] 4 2023 100 Pharmac y Data Transac tion Service Facilit y Omeprazole (Prilosec Eq.) Capsule Conventiona l 40 mg Oral Take or use exactly as directed .Obtain advice for OTCs.Swa llow whole. 10/16/2024 [id number] 4 2023 90 [facility] [place] ([facility]) omeprazole DR 40 mg capsule 40 mg, Oral, Daily, # 90 EA, 1 total refill(s ), Hard Stop Oral (given by mouth) Ordered 09/30/2025 5 2024 90.0 Ambulat ory Pharmac y omeprazole DR 40 mg capsule See Instruct ions, # 90 EA, 3 total refill(s ), Hard Stop Discont inued 01/13/2024 3 2023 90.0 Ambulat ory Pharmac y omeprazole DR 40 mg capsule See Instruct ions, # 90 EA, 3 total refill(s ), Hard Stop Discont inued 10/05/2024 4 2024 90.0 Ambulat ory Pharmac y oxyCODONE-a cetaminophe n 5 mg-325 mg tablet See Instruct ions, # 42 EA, 0 total refill(s ), Hard Stop Complet ed 12/29/2023 3 2023 42.0 Ambulat ory Pharmac y POTASSIUM CHL SR 10 MEQ ORAL CPER Take with plenty of water.Ta ke with food/mil k.Take or use exactly as directed .Swallow whole. 10/16/2024 [id number] 4 2023 45 [facility] [place] ([facility]) potassium chloride 10 mEq oral capsule, extended release TAKE ONE CAPSULE BY MOUTH EVERY OTHER DAY, # 45 EA, 2 total refill(s ), Acute Complet ed 10/30/2023 3 2023 45.0 Ambulat ory Pharmac y potassium chloride ER 10 mEq capsule 10 mEq, Oral, every other day, # 45 EA, 3 total refill(s ), Hard Stop Oral (given by mouth) Ordered 09/30/2025 5 2024 45.0 Ambulat ory Pharmac y potassium chloride ER 10 mEq capsule See Instruct ions, 0, # 45 EA, 3 total refill(s ), Hard Stop Complet ed 04/23/2024 3 2023 45.0 Ambulat ory Pharmac y potassium chloride ER 10 mEq capsule See Instruct ions, # 45 EA, 3 total refill(s ), Hard Stop Discont inued 10/05/2024 4 2024 45.0 Ambulat ory Pharmac y telmisartan /HCTZ (UD) 40-12.5MG ORAL TAB Be careful if taking OTCs.Hector e with food/mil k.Avoid exposure to sun.Take or use exactly as directed .Do not take if . 10/16/2024 [id number] 4 2023 90 [facility] [place] ([facility]) TRESIBA FLEXTOUCH U-200 (insulin degludec), 200/ML (3), INSULN PEN, SUBCUT, JAKI NORDISK, 3 ml SYRINGE Active [id number] 4 2023 9 Pharmac y Data Transac tion Service Facilit y TRESIBA FLEXTOUCH U-200 (insulin degludec), 200/ML (3), INSULN PEN, SUBCUT, JAKI NORDISK, 3 ml SYRINGE Active [id number] 4 2023 9 Pharmac y Data Transac tion Service Facilit y TRULICITY (dulaglutid e), 4.5 MG/0.5, PEN INJCTR, SUBCUT, TANISHA ERIBERTO [employer] CO., .5 ml SYRINGE Active [id number] 4 2023 6 Pharmac y Data Transac tion Service Facilit y Trulicity Pen 3 mg/0.5 mL [4EA=2mL] See Instruct ions, SubCutan eous, # 6 mL, 3 total refill(s ), Hard Stop Notes: refriger ate SubCut aneous (under the skin) Discont inued 01/15/2024 4 2023 6.0 Ambulat ory Pharmac y Allergies, Adverse Reactions, Alerts Combined list of allergies from Department of Defense and Veterans Affairs facilities. It does not include entries that were removed or entered in error. Substance Category Reaction Severity Reaction type Status Date Reported Comments Source atropine Drug allergy HEART RATE DROPS Severe Active PT STATES HEART RATE DROPS Ambulatory Pharmacy Immunizations Combined list of available immunizations from the Department of Defense and Veterans Affairs facilities. 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 Source influenza, high-dose, quadrivalent 2020 [facility], () Not Given influenza , high-dose , quadrival ent [facility] influenza, high-dose, quadrivalent 2019 [facility], () Not Given influenza , high-dose , quadrival ent [facility] Influenza, high dose seasonal 2018 [facility], () Not Given Influenza , high dose seasonal [facility] Influenza, seasonal, injectable, preservative free 2014 [facility], () Not Given Influenza , seasonal, injectabl e, preservat stefany free [facility] Influenza, seasonal, injectable 2013 SARAH HENRY () Not Given Influenza , seasonal, injectabl e DoD Procedures Combined list of: 1) Procedures from Department of Veterans Affairs facilities [facility], not all [place] non-surgical procedures are included; 2) All procedures from the Department of Defense facilities. Procedure Procedure Type Code Date Perfomer Comments Sourc e No data available for this section Ambulatory P harmacy Social History Combined list of available smoking, tobacco, and other social history from Department of Defense and Veterans Affairs facilities. Social History Type Response Date Comment Sourc e This section is an empty social history section. DoD Assessment and Plan Combined list of future care activities from Department of Defense and Veterans Affairs facilities (e.g., assessment and plan notes, appointments, orders, and referrals). Additional future care activities may be listed in the Plan of Care section. Result Assessment and Plan Date Source Assessment and Plan No data available for this section 11/12/2024 Ambulatory Pharmacy Functional Status Combined list of recent functional and cognitive assessments recorded at Department of Defense and Veterans Affairs ([place]).[place] Functional Anderson Measurement (FIM) Scale: 1 = Total Assistance (Subject = 0% +), 2 = Maximal Assistance (Subject = 25% +), 3 = Moderate Assistance (Subject = 50% +), 4 = Minimal Assistance (Subject = 75% +), 5 = Supervision, 6 = Modified Anderson (Device), 7 = Complete Anderson (Timely, Safely). Assessment Date/Time Source Assessment Type Assessment Skill Assessment Score Assessment Details No data available for this section
--- OUTSIDE RECORDS SUMMARY | 2024-11-12 00:12 | XMS_ITS | Encounter Summary ---
Author Organization [facility] Address [address] [place] [address] Care Team Providers Care Tube Drawer Name Role Phone Syl Mcadams MD Primary Care Provider Maryann Jiménez DO Primary Care Provider [phone] Reason for Visit * Reason Onset Date Comments MEDICATION REFILL 08/21/2018 Encounter Details Date Type Department Care Team (Late st Contact Info) Description 08/21/2018 Refill [facility] [address] [place] [address] April Mendoza MD [address] [place] [address] MEDICATION REFILL Social History Tobacco Use Types Packs/Day Years Used Date Smoking Tobacco: Passive Smo ke Exposure - Never Smoker Smokeless Tobacco: Never Sex and Gender Information Value Date Recorded Sex Assigned at Not on file Gender Identity Not on file Sexual Orientation Not on file documented as of this encounter Plan of Treatment Not on file documented as of this encounter Visit Diagnoses Not on filedocumented in this encounter Care Teams Tube Drawer Relationship Specialty Start Date End Date Syl Mcadams MD [address] [place] [address] PCP - General 04/29/18 09/06/22 Maryann Jiménez DO [address] [facility] [address] [place] [id number] PCP - General 09/07/22 documented as of this encounter
--- OUTSIDE RECORDS SUMMARY | 2024-11-12 00:12 | XMS_ITS | Encounter Summary ---
Author Organization [facility] Address [address] [place] [address] Care Team Providers Care Sorter Laundry Articles Name Role Phone Syl Mcadams MD Primary Care Provider Syl Mcadams MD Primary Care Provider [phone] Miscellaneous, Not In File Primary Care Provider Unavailable Syl Mcadams MD Primary Care Provider [phone] Maryann Jiménez DO Primary Care Provider + Jose David Betancourt MD Unavailable [phone] Encounter Details Date Type Department Care Team (Late st Contact Info) Description 10/29/2016 Orders Only [facility] ProviderMireille MD [address] [place] [address] Social History Tobacco Use Types Packs/Day Years Used Date Smoking Tobacco: Former Alcohol Use Standard Drinks/Week Comments Yes 0 (1 standard drink = 0.6 oz pur e alcohol) Sex and Gender Information Value Date Recorded Sex Assigned at Not on file Legal Sex Male 3:55 AM STUFFER Gender Identity Male 01/23/2020 12:25 AM CDT Sexual Orientation Straight 01/23/2020 12 :25 AM CDT documented as of this encounter Plan of Treatment Not on file documented as of this encounter Procedures Procedure Name Priority Date/Time Associated Diagnosis Comments CARDIOLOGY REPORT 10/29/2016 documented in this encounter Results * CARDIOLOGY REPORT (10/29/2016) Anatomical Region Laterality Modality Other Narrative 10/29/2016 Ordered by an unspecified provider. Historical Provider [facility] RINA OLIVAREZ Final Result documented in this encounter Visit Diagnoses Not on filedocumented in this encounter Additional Health Concerns Infection Onset Date Last Indicated Resolved Time COVID: Suspected 05/04/2024 05/04/2024 05/04/2024 6:36 PM CDT COVID19 05/04/2024 05/04/2024 05/14/2024 3:07 AM CDT COVID: Recovered Comment:Added based on recent COVID infection. 05/14/2024 05/15/2024 08/12/2024 3:[address] documented as of this encounter Care Teams Sorter Laundry Articles Relationship Specialty Start Date End Date Syl Mcadams MD [address] [place] [address] PCP - General 11/30/16 01/21/17 Syl Mcadams MD [address] [place] [address] PCP - General 07/14/13 11/29/16 Miscellaneous, Not In File PCP - General 01/22/17 7 Syl Mcadams MD [address] [place] [address] PCP - General 02/05/17 07/02/22 Maryann Jiménez DO PCP - General Family Medicine 07/03/22 Jose David Betancourt MD [address] [place] [address] Consulting Physician Urology 06/19/24 documented as of this encounter
--- OUTSIDE RECORDS SUMMARY | 2024-11-12 00:13 | XMS_ITS | Patient Health Record ---
Author Organization [facility] Address [address] [place] [address] Care Team Providers Care Brand Activation Manager Name Role Phone Jamison Dsouza MD Primary Care Provider [phone] ALLERGIES Allergen (clinical drug ingredient) Drug/Non Drug Allergy documented on EMR Reaction Allergy Type Onset Date Status atropine Atropine Unknown Drug Allergy Active REASON FOR REFERRAL No Information MEDICATIONS Medication SIG (Take, Route, Frequency, Duration) Notes Start Date End Date Status Glimepiride 4 MG Oral for 90 Days Active Enbrel SureClick 50 MG/ML Subcutaneous for 56 Days Active Potassium Chloride ER 10 MEQ Oral for 30 Days Active metFORMIN HCl ER 500 MG Oral for 90 Days Active FreeStyle Lancets - for 90 Days Active Telmisartan-HCTZ 40-12.5 MG Oral for 90 Days Active Trulicity 3 MG/0.5ML Subcutaneous for 84 Days Active Jardiance 25 MG Oral for 90 Days Active amLODIPine Besylate 2.5 MG Oral for 90 Days Active Atorvastatin Calcium 40 MG Oral for 90 Days Active Tresiba FlexTouch 200 UNIT/ML Subcutaneous for 23 Days Act stefany Synthroid 100 MCG Oral for 90 Days Active IMMUNIZATIONS Vaccine Route Administration Date Status Comme nts Influenza Unknown 01/11/2023 Refused pneumoccocal Unknown 01/11/2023 Refused SOCIAL HISTORY Tobacco Use: Social History Observation Description Date Details (start date - stop date) Never Smoker NA - NA Sex Assigned At : Social History Observation Description Sex Assigned At Unknown Tobacco Use: Question Answer Notes Patient is a: nonsmoker Alcohol screening: Question Answer Notes Did you have a drink containing alcohol in the p ast year? No Points 0 Interpretation Negative PROBLEMS Problem Type ICD Code Onset Dates Problem Status W/U Status Risk SNOMED Code Notes Problem Strain of muscle, fascia and tendon of long head of biceps, right arm, initial encounter (S46.111A) 3 Active confirmed Strain of long head of biceps (253964643) Problem Overexertion from strenuous movement or load, initial encounter (X50.0XXA) 3 Active confirmed Overexertion, strenuous movements and vibration (event) (024592070) Problem Unspecified injury of left shoulder and upper arm, initial encounter (S49.92XA) 2 Active confirmed Injury of shoulder and upper arm (670057759) Problem Impingement syndrome of left shoulder (M75.42) 2 Active confirmed Impingement syndrome of left shoulder region (240311363219471) Problem Primary osteoarthritis, left shoulder (M19.012) 2 Active confirmed Localized, primary osteoarthritis of the shoulder region (005018088) Problem Unspecified fall, sequela (W19.XXXS) 2 Active confirmed Fall () PLAN OF TREATMENT Pending Test Test Name Order Date CT arthrogram 02/13/2023 Intra-articular Shoulder Injection 03/07 Insurance Providers Payer Name Payer Address Payer Phone Subscriber Number Group Number Insured Name Patient Relationship to Insured Coverage Start Date Coverage End Date Medicare [address] [place] [address] [id number] Ced Mccracken Self - patient is the insured for [employer] [address] [place] [address] [id number] Ced Mccracken Self - patient is the insured MEDICAL (GENERAL) HISTORY Medical History History ICD Code diabetes mellitus hypertension heart disease thyroid disease
--- OUTSIDE RECORDS SUMMARY | 2024-11-12 00:13 | XMS_ITS | Data Portability ---
Author Organization [facility], Main Office Address [address] [place] [address] Assessment No assessment recorded. Plan of Treatment Reminders Order Date Submit Date Provider Last Modified By Organization Details Last Modified Time Details Appointments None recorded. Lab None recorded. Referral endocrinolo gy referral 2022 023 Mary Beth Bo MD, [address],, [facility] [address], [place], [address], 3 12:03:44 Procedures None recorded. Surgeries None recorded. Imaging None recorded. Medication Orders atorvastati n 40 mg tablet 2022 023 [facility], [address] [place] [address], [address], 3 12:23:16 Trulicity 3 mg/0.5 mL subcutaneou s pen injector 2022 023 [facility], [address] [place] [address], [address], 3 12:23:15 Tresiba FlexTouch U-200 insulin 200 unit/mL (3 mL) subcutaneou s pen 2022 023 [facility], [address] [place] [address], [address], 3 12:23:17 metformin ER 500 mg tablet,exte nded release 24 hr 2022 023 [facility], [address] [place] [address], [id number], 3 12:24:40 Jardiance 25 mg tablet 2022 023 [facility], [address] [place] [address], [address], 3 12:24:41 FreeStyle Lite Strips 2022 023 [facility], [address] [place] [address], [address], 3 12:24:41 glimepiride 4 mg tablet 2022 023 [facility], [address] [place] [address], [address], 3 12:24:40 Synthroid 100 mcg tablet 2022 023 [facility], [address] [place] [address], [address], 3 12:23:17 Patient TargetsNo targets recorded. Patient InstructionsNo instructions recorded. Reason for Referral Endocrinology Referral for U ncontrolled type 2 diabetes mellitus Referring Physician: Tia Braun, Endocrinology, Encounter Date: 05/21/2023 Results Created Date Observation Date Name Description Value Unit Range Abnormal Flag Note LastModifiedBy Organization Detail LastModifiedTime 04/06/20 22 04/07/2022 HEMOG LOBIN A1C hemoglobin A1C 8.0 %_of_ total _HGB <5.7 high For someo ne witho ut known diabe andrea, a hemog lobin A1c value of 6.5% or great er indic ates that they may have diabe andrea and this shoul d be confi rmed with a follo w-up test. For someo ne with known diabe andrea, a value <7% indic ates that their diabe andrea is well contr olled and a value great er than or equal to 7% indic ates subop timal contr ol. A1c targe ts shoul d be indiv idual ized based on durat ion of diabe andrea, age, comor bid condi tions , and other consi derat ions. Curre ntly, no conse nsus exist s regar amy use of hemog lobin A1c for diagn osis of diabe andrea for child jennifer. Not Available [address], [address], 04/07/2022 13:33:14 04/06/20 22 04/07/2022 TSH TSH 2.20 mIU/L 0.40-4 .50 normal Not Available [address], [address], 04/07/2022 13:33:14 04/06/20 22 04/07/2022 T4, FREE T4, free 1.2 NG/dL 0.8-1. 8 normal Not Available [address], [address], 04/07/2022 13:33:13 04/06/20 22 04/07/2022 ALBUM IN, RANDO M URINE W/CRE ATINI NE creatinine, random urine 108 mg/dL 20-320 normal Not Available [address], [address], 04/07/2022 13:33:13 04/06/20 22 04/07/2022 ALBUM IN, RANDO M URINE W/CRE ATINI NE albumin, urine 1.3 mg/dL see note: normal Refer ence Range : Refer ence Range Not estab lishe d Not Available [address], [address], 04/07/2022 13:33:13 04/06/20 22 04/07/2022 ALBUM IN, RANDO M URINE W/CRE ATINI NE albumin/crea tinine ratio, random urine 12 mcg/m g_cre at <30 normal The ADA defin es abnor malit ies in album in excre tion as follo ws: Album inuri a Categ ory Resul t (mcg/ mg creat inine ) Karin l to Mildl y incre ased <30 Moder ately incre ased 30-29 9 Sever burton incre ased > OR = 300 The ADA recom mends that at least two of three speci mens colle cted withi n a 3-6 month perio d be abnor mal befor e consi marley g a patie nt to be withi n a diagn ostic categ ory. Not Available [facility] [address] [place], [address], 04/07/2022 13:33:13 04/06/20 22 04/07/2022 COMPR EHENS JADA METAB OLIC PANEL eGFR 92 mL/mi n/1.7 3m2 > or = 60 normal The eGFR is based on the CKD-E PI 2020 equat ion. To calcu late the new eGFR from a previ ous Creat inine or Cysta tin C resul t, go to https ://francisco w.yobany funky.o ira/westley hartmann s/ kdoqi /gfr% 5Fcal culat or Not Available [email or web address] [address] [address] [place], [address], 04/07/2022 13:33:12 04/06/20 22 04/07/2022 COMPR EHENS JADA METAB OLIC PANEL glucose 105 mg/dL 65-99 high Fasti ng refer ence inter mitchel For someo ne witho ut known diabe andrea, a gluco se value betwe en 100 and 125 mg/dL is consi stent with predi abete s and shoul d be confi rmed with a follo w-up test. Not Available [facility] [address] [address], [place], [address], 04/07/2022 13:33:12 04/06/20 22 04/07/2022 COMPR EHENS JADA METAB OLIC PANEL urea nitrogen (BUN) 16 mg/dL 7-25 normal Not Available [facility] [address] [place], [address], 04/07/2022 13:33:12 04/06/20 22 04/07/2022 COMPR EHENS JADA METAB OLIC PANEL creatinine 0.88 mg/dL 0.70-1 .28 normal Not Available [address], [address], 04/07/2022 13:33:12 04/06/20 22 04/07/2022 COMPR EHENS JADA METAB OLIC PANEL BUN/creatini ne ratio not applic able (calc ) 6-22 Not Available [address], [address], 04/07/2022 13:33:12 04/06/20 22 04/07/2022 COMPR EHENS JADA METAB OLIC PANEL sodium 141 mmol/ L 135-14 6 normal Not Available [address], [address], 04/07/2022 13:33:12 04/06/20 22 04/07/2022 COMPR EHENS JADA METAB OLIC PANEL potassium 3.3 mmol/ L 3.5-5. 3 low Not Available [address], [address], 04/07/2022 13:33:12 04/06/20 22 04/07/2022 COMPR EHENS JADA METAB OLIC PANEL chloride 100 mmol/ L 98-110 normal Not Available [address], [address], 04/07/2022 13:33:12 04/06/20 22 04/07/2022 COMPR EHENS JADA METAB OLIC PANEL carbon dioxide 31 mmol/ L 20-32 normal Not Available [address], [address], 04/07/2022 13:33:12 04/06/20 22 04/07/2022 COMPR EHENS JADA METAB OLIC PANEL calcium 9.3 mg/dL 8.6-10 .3 normal Not Available [address], [address], 04/07/2022 13:33:12 04/06/20 22 04/07/2022 COMPR EHENS JADA METAB OLIC PANEL protein, total 6.8 g/dL 6.1-8. 1 normal Not Available [address], [address], 04/07/2022 13:33:12 04/06/20 22 04/07/2022 COMPR EHENS JADA METAB OLIC PANEL albumin 4.1 g/dL 3.6-5. 1 normal Not Available [address], [address], 04/07/2022 13:33:12 04/06/20 22 04/07/2022 COMPR EHENS JADA METAB OLIC PANEL globulin 2.7 g/dL_ (calc ) 1.9-3. 7 normal Not Available [address], [address], 04/07/2022 13:33:12 04/06/20 22 04/07/2022 COMPR EHENS JADA METAB OLIC PANEL albumin/glob ulin ratio 1.5 (calc ) 1.0-2. 5 normal Not Available [address], [address], 04/07/2022 13:33:12 04/06/20 22 04/07/2022 COMPR EHENS JADA METAB OLIC PANEL bilirubin, total 0.7 mg/dL 0.2-1. 2 normal Not Available [address], [address], 04/07/2022 13:33:12 04/06/20 22 04/07/2022 COMPR EHENS JADA METAB OLIC PANEL alkaline phosphatase 68 U/L 35-144 normal Not Available [address], [address], 04/07/2022 13:33:12 04/06/20 22 04/07/2022 COMPR EHENS JADA METAB OLIC PANEL AST 13 U/L 10-35 normal Not Available [address], [address], 04/07/2022 13:33:12 04/06/20 22 04/07/2022 COMPR EHENS JADA METAB OLIC PANEL ALT 12 U/L 9-46 normal Not Available [address], [address], 04/07/2022 13:33:12 04/06/20 22 04/07/2022 LIPID PANEL , STAND DARRYL chol/HDLC ratio 3.3 (calc ) <5.0 normal Not Available [address], [address], 04/07/2022 13:33:12 04/06/20 22 04/07/2022 LIPID PANEL , STAND DARRYL cholesterol, total 105 mg/dL <200 normal Not Available [address], [address], 04/07/2022 13:33:12 04/06/20 22 04/07/2022 LIPID PANEL , STAND DARRYL HDL cholesterol 32 mg/dL > or = 40 low Not Available [address], [address], 04/07/2022 13:33:12 04/06/20 22 04/07/2022 LIPID PANEL , STAND DARRYL triglyceride s 102 mg/dL <150 normal Not Available [address], [address], 04/07/2022 13:33:12 04/06/20 22 04/07/2022 LIPID PANEL , STAND DARRYL LDL-choleste rol 54 mg/dL _(columba c) normal Refer ence range : <100 Aicha able range <100 mg/dL for prima ry preve ntion ; <70 mg/dL for patie nts with CHD or diabe tic patie nts with > or = 2 CHD risk facto rs. LDL-C is now calcu lated using the [facility] n-Hop kins josefinau celewayne n, which is a valid ated novel tammy centeno accur acy than the Fried raji equat ion in the estim ation of LDL-C . Lana de anda SS et al. ARISTIDES. 2013; 310(1 9): 2061- 2068 (http ://ed ucati on.Qu estDi Pipettes. com/f aq/FA Q164) Not Available [email or web address] [address] [place], [address], 04/07/2022 13:33:12 04/06/20 22 04/07/2022 LIPID PANEL , STAND DARRYL non HDL cholesterol 73 mg/dL _(columba c) <130 normal For patie nts with diabe andrea plus 1 major ASCVD risk facto r, treat ing to a non-H DL-C goal of <100 mg/dL (LDL- C of <70 mg/dL ) is consi dered a thera peuti c optio n. Not Available [email or web address] [address] [address] , [place], [address], 04/07/2022 13:33:12 06/28/20 22 06/29/2022 HEMOG LOBIN A1C hemoglobin A1C 8.4 %_of_ total _HGB <5.7 high For someo ne witho ut known diabe andrea, a hemog lobin A1c value of 6.5% or great er indic ates that they may have diabe andrea and this shoul d be confi rmed with a follo w-up test. For someo ne with known diabe andrea, a value <7% indic ates that their diabe andrea is well contr olled and a value great er than or equal to 7% indic ates subop timal contr ol. A1c targe ts shoul d be indiv idual ized based on durat ion of diabe andrea, age, comor bid condi tions , and other consi derat ions. Curre ntly, no conse nsus exist s marcella reyes use of hemog lobin A1c for diagn osis of diabe andrea for child jennifer. Not Available [address], [address], 06/29/2022 19:15:30 06/28/20 22 06/29/2022 TSH+F REE T4 TSH 3.73 mIU/L 0.40-4 .50 normal Not Available [address], [address], 06/29/2022 19:15:30 06/28/20 22 06/29/2022 TSH+F REE T4 T4, free 1.2 NG/dL 0.8-1. 8 normal Not Available [address], [address], 06/29/2022 19:15:30 06/28/20 22 06/29/2022 T3, FREE T3, free 3.0 pg/mL 2.3-4. 2 normal Not Available [address], [address], 06/29/2022 19:15:29 06/28/20 22 06/29/2022 ALBUM IN, RANDO M URINE W/CRE ATINI NE creatinine, random urine 63 mg/dL 20-320 normal Not Available [address], [address], 06/29/2022 19:15:29 06/28/20 22 06/29/2022 ALBUM IN, RANDO M URINE W/CRE ATINI NE albumin, urine 0.6 mg/dL see note: normal Refer ence Range : Refer ence Range Not estab lishe d Not Available [address], [address], 06/29/2022 19:15:29 06/28/20 22 06/29/2022 ALBUM IN, RANDO M URINE W/CRE ATINI NE albumin/crea tinine ratio, random urine 10 mcg/m g_cre at <30 normal The ADA defin es abnor malit ies in album in excre tion as follo ws: Album inuri a Categ ory Resul t (mcg/ mg creat inine ) Karin l to Mildl y incre ased <30 Moder ately incre ased 30-29 9 Sever burton incre ased > OR = 300 The ADA recom mends that at least two of three speci mens colle cted withi n a 3-6 month perio d be abnor mal befor e consi marley g a patie nt to be withi n a diagn ostic categ ory. Not Available [facility] [address] [place], [address], 06/29/2022 19:15:29 06/28/20 22 06/29/2022 COMPR EHENS JADA METAB OLIC PANEL glucose 117 mg/dL 65-99 high Fasti ng refer ence inter mitchel For someo ne witho ut known diabe andrea, a gluco se value betwe en 100 and 125 mg/dL is consi stent with predi abete s and shoul d be confi rmed with a follo w-up test. Not Available [facility] [address] [address] [place], [address], 06/29/2022 19:15:28 06/28/20 22 06/29/2022 COMPR EHENS JADA METAB OLIC PANEL urea nitrogen (BUN) 10 mg/dL 7-25 normal Not Available [email or web address] [address] [address] [place], [address], 06/29/2022 19:15:28 06/28/20 22 06/29/2022 COMPR EHENS JADA METAB OLIC PANEL creatinine 0.88 mg/dL 0.70-1 .28 normal Not Available [email or web address] [address] [address] [place], [address], 06/29/2022 19:15:28 06/28/20 22 06/29/2022 COMPR EHENS JADA METAB OLIC PANEL eGFR 92 mL/mi n/1.7 3m2 > or = 60 normal The eGFR is based on the CKD-E PI 2020 equat ion. To calcu late the new eGFR from a previ ous Creat inine or Cysta hakan ferris, go to https ://francisco price.osman roth/westley hartmann s/ kdoqi /gfr% 5Fcal culat or Not Available [address] [address] [place], [address], 06/29/2022 19:15:28 06/28/20 22 06/29/2022 COMPR EHENS JADA METAB OLIC PANEL BUN/creatini ne ratio not applic able (calc ) 6-22 Not Available [address] [address] [place], [address], 06/29/2022 19:15:28 06/28/20 22 06/29/2022 COMPR EHENS JADA METAB OLIC PANEL sodium 142 mmol/ L 135-14 6 normal Not Available [address] [address] [place], [address], 06/29/2022 19:15:28 06/28/20 22 06/29/2022 COMPR EHENS JADA METAB OLIC PANEL potassium 3.6 mmol/ L 3.5-5. 3 normal Not Available [address] [address] [place], [address], 06/29/2022 19:15:28 06/28/20 22 06/29/2022 COMPR EHENS JADA METAB OLIC PANEL chloride 100 mmol/ L 98-110 normal Not Available [address] [address] [place], [address], 06/29/2022 19:15:28 06/28/20 22 06/29/2022 COMPR EHENS JADA METAB OLIC PANEL carbon dioxide 32 mmol/ L 20-32 normal Not Available [address] [address] [place], [address], 06/29/2022 19:15:28 06/28/20 22 06/29/2022 COMPR EHENS JADA METAB OLIC PANEL calcium 9.5 mg/dL 8.6-10 .3 normal Not Available [address], [address], 06/29/2022 19:15:28 06/28/20 22 06/29/2022 COMPR EHENS JADA METAB OLIC PANEL protein, total 7.1 g/dL 6.1-8. 1 normal Not Available [address], [address], 06/29/2022 19:15:28 06/28/20 22 06/29/2022 COMPR EHENS JADA METAB OLIC PANEL albumin 4.0 g/dL 3.6-5. 1 normal Not Available [address], [address], 06/29/2022 19:15:28 06/28/20 22 06/29/2022 COMPR EHENS JADA METAB OLIC PANEL globulin 3.1 g/dL_ (calc ) 1.9-3. 7 normal Not Available [address], [address], 06/29/2022 19:15:28 06/28/20 22 06/29/2022 COMPR EHENS JADA METAB OLIC PANEL albumin/glob ulin ratio 1.3 (calc ) 1.0-2. 5 normal Not Available [address], [address], 06/29/2022 19:15:28 06/28/20 22 06/29/2022 COMPR EHENS JADA METAB OLIC PANEL bilirubin, total 0.5 mg/dL 0.2-1. 2 normal Not Available [address], [address], 06/29/2022 19:15:28 06/28/20 22 06/29/2022 COMPR EHENS JADA METAB OLIC PANEL alkaline phosphatase 90 U/L 35-144 normal Not Available [facility] [address] [address] [place], [address], 06/29/2022 19:15:28 06/28/20 22 06/29/2022 COMPR EHENS JADA METAB OLIC PANEL AST 15 U/L 10-35 normal Not Available [address] [address] [place], [address], 06/29/2022 19:15:28 06/28/20 22 06/29/2022 COMPR EHENS JADA METAB OLIC PANEL ALT 18 U/L 9-46 normal Not Available [address] [address] [place], [address], 06/29/2022 19:15:28 06/28/20 22 06/29/2022 LIPID PANEL , STAND DARRYL non HDL cholesterol 105 mg/dL _(columba c) <130 normal For patie nts with diabe andrea plus 1 major ASCVD risk facto r, treat ing to a non-H DL-C goal of <100 mg/dL (LDL- C of <70 mg/dL ) is consi hoa vargaso n. Not Available [address] [address] [place], [address], 06/29/2022 19:15:28 06/28/20 22 06/29/2022 LIPID PANEL , STAND DARRYL cholesterol, total 138 mg/dL <200 normal Not Available [address] [address] [place], [address], 06/29/2022 19:15:28 06/28/20 22 06/29/2022 LIPID PANEL , STAND DARRYL HDL cholesterol 33 mg/dL > or = 40 low Not Available [address] [address] [place], [address], 06/29/2022 19:15:28 06/28/20 22 06/29/2022 LIPID PANEL , STAND DARRYL triglyceride s 162 mg/dL <150 high Not Available [facility] [address] [place], [address], 06/29/2022 19:15:28 06/28/20 22 06/29/2022 LIPID PANEL , STAND DARRYL LDL-choleste rol 79 mg/dL _(columba c) normal Refer ence range : <100 Aicha able range <100 mg/dL for prima ry preve ntion ; <70 mg/dL for patie nts with CHD or diabe tic patie nts with > or = 2 CHD risk facto rs. LDL-C is now calcu lated using the [employer] n-Hop kins calcu latwayne n, which is a valid ated novel tammy hart r accur acy than the Fried raji equat ion in the estim ation of LDL-C . Lana de anda SS et al. ARISTIDES. 2013; 310(1 9): 2061- 2068 (http ://ed ati on.Qu [employer] Wave - Private Location App. com/f aq/FA Q164) Not Available [facility] [address] [address] , [place], [address], 06/29/2022 19:15:28 06/28/2006/29/2022 LIPID PANEL , STAND DARRYL chol/HDLC ratio 4.2 (calc ) <5.0 normal Not Available [facility] [address] [place], [address], 06/29/2022 19:15:28 09/17/19 23 09/18/2022 HEMOG LOBIN A1C hemoglobin A1C 8.6 %_of_ total _HGB <5.7 high For someo ne witho ut known diabe andrea, a hemog lobin A1c value of 6.5% or great er indic ates that they may have diabe andrea and this shoul d be confi rmed with a follo w-up test. For someo ne with known diabe andrea, a value <7% indic ates that their diabe andrea is well contr olled and a value great er than or equal to 7% indic ates subop timal contr ol. A1c targe ts shoul d be indiv idual ized based on durat ion of diabe andrea, age, comor bid condi tions , and other consi derat ions. Curre ntly, no conse nsus exist s marcella reyes use of hemog lobin A1c for diagn osis of diabe andrea for child jennifer. Not Available [facility] [address], [address], 09/18/2022 13:59:03 09/17/19 23 09/18/2022 T3, FREE T3, free 3.1 pg/mL 2.3-4. 2 normal Not Available [email or web address] [address], [address], 09/18/2022 13:59:02 09/17/19 23 09/18/2022 TSH TSH 6.04 mIU/L 0.40-4 .50 high Not Available [email or web address] [address], [address], 09/18/2022 13:59:02 09/17/19 23 09/18/2022 T4, FREE T4, free 1.2 NG/dL 0.8-1. 8 normal Not Available [email or web address] [address], [address], 09/18/2022 13:59:01 09/17/19 23 09/18/2022 CBC (INCL UDES DIFF/ PLT) hemoglobin 16.3 g/dL 13.2-1 7.1 normal Not Available [facility] [address], [address], 09/18/2022 13:59:01 09/17/19 23 09/18/2022 CBC (INCL UDES DIFF/ PLT) white blood cell count 12.2 thous and/u L 3.8-10 .8 high Not Available [facility] [address], [address], 09/18/2022 13:59:09/17/19 23 09/18/2022 CBC (INCL UDES DIFF/ PLT) red blood cell count 5.75 destini on/uL 4.20-5 .80 normal Not Available [address], [address], 09/18/2022 13:59:01 09/17/19 23 09/18/2022 CBC (INCL UDES DIFF/ PLT) hematocrit 48.5 % 38.5-5 0.0 normal Not Available [address], [address], 09/18/2022 13:59:01 09/17/19 23 09/18/2022 CBC (INCL UDES DIFF/ PLT) MCV 84.3 fL 80.0-1 00.0 normal Not Available [address], [address], 09/18/2022 13:59:01 09/17/19 23 09/18/2022 CBC (INCL UDES DIFF/ PLT) MCH 28.3 pg 27.0-3 3.0 normal Not Available [address], [address], 09/18/2022 13:59:01 09/17/19 23 09/18/2022 CBC (INCL UDES DIFF/ PLT) MCHC 33.6 g/dL 32.0-3 6.0 normal Not Available [address], [address], 09/18/2022 13:59:01 09/17/19 23 09/18/2022 CBC (INCL UDES DIFF/ PLT) RDW 13.0 % 11.0-1 5.0 normal Not Available [address], [address], 09/18/2022 13:59:01 09/17/19 23 09/18/2022 CBC (INCL UDES DIFF/ PLT) platelet count 285 thous and/u L 140-40 0 normal Not Available [facility] [place] [facility] [address] [place], [address], 09/18/2022 13:59:01 09/17/19 23 09/18/2022 CBC (INCL UDES DIFF/ PLT) MPV 9.4 fL 7.5-12 .5 normal Not Available [address], [address], 09/18/2022 13:59:01 09/17/19 23 09/18/2022 CBC (INCL UDES DIFF/ PLT) absolute neutrophils 8296 cells /uL 1500-7 800 high Not Available [facility] [address], [address], 09/18/2022 13:59:01 09/17/19 23 09/18/2022 CBC (INCL UDES DIFF/ PLT) absolute lymphocytes 2940 cells /uL 850-39 00 normal Not Available [address], [address], 09/18/2022 13:59:01 09/17/19 23 09/18/2022 CBC (INCL UDES DIFF/ PLT) absolute monocytes 817 cells /uL 200-95 0 normal Not Available [address], [address], 09/18/2022 13:59:01 09/17/19 23 09/18/2022 CBC (INCL UDES DIFF/ PLT) absolute eosinophils 73 cells /uL 15-500 normal Not Available [facility] [address], [address], 09/18/2022 13:59:01 09/17/19 23 09/18/2022 CBC (INCL UDES DIFF/ PLT) absolute basophils 73 cells /uL 0-200 normal Not Available [facility] [address], [address], 09/18/2022 13:59:01 09/17/19 23 09/18/2022 CBC (INCL UDES DIFF/ PLT) neutrophils 68 % normal Not Available [address], [address], 09/18/2022 13:59:01 09/17/19 23 09/18/2022 CBC (INCL UDES DIFF/ PLT) lymphocytes 24.1 % normal Not Available [address], [address], 09/18/2022 13:59:01 09/17/19 23 09/18/2022 CBC (INCL UDES DIFF/ PLT) monocytes 6.7 % normal Not Available [address], [address], 09/18/2022 13:59:01 09/17/19 23 09/18/2022 CBC (INCL UDES DIFF/ PLT) eosinophils 0.6 % normal Not Available [address], [address], 09/18/2022 13:59:01 09/17/19 23 09/18/2022 CBC (INCL UDES DIFF/ PLT) basophils 0.6 % normal Not Available [address], [address], 09/18/2022 13:59:01 09/17/19 23 09/18/2022 ALBUM IN, RANDO M URINE W/CRE ATINI NE creatinine, random urine 67 mg/dL 20-320 normal Not Available [address], [address], 09/18/2022 13:59:00 09/17/19 23 09/18/2022 ALBUM IN, RANDO M URINE W/CRE ATINI NE albumin, urine 1.1 mg/dL see note: normal Refer ence Range : Refer ence Range Not estab lishe d Not Available [address], [address], 09/18/2022 13:59:00 09/17/19 23 09/18/2022 ALBUM IN, RANDO M URINE W/CRE ATINI NE albumin/crea tinine ratio, random urine 16 mcg/m g_cre at <30 normal The ADA defin es abnor malit ies in album in excre tion as follo ws: Album inuri a Categ ory Resul t (mcg/ mg creat inine ) Karin l to Mildl y incre ased <30 Moder ately incre ased 30-29 9 Sever burton incre ased > OR = 300 The ADA recom mends that at least two of three speci mens colle cted withi n a 3-6 month perio d be abnor mal befor e consi marley g a patie nt to be withi n a diagn ostic categ ory. Not Available [address] [address] [place], [address], 09/18/2022 13:59:00 09/17/19 23 09/18/2022 LIPID PANEL , STAND DARRYL chol/HDLC ratio 3.5 (calc ) <5.0 normal Not Available [address] [place], [address], 09/18/2022 13:59:00 09/17/19 23 09/18/2022 LIPID PANEL , STAND DARRYL cholesterol, total 138 mg/dL <200 normal Not Available [address] [address] [place], [address], 09/18/2022 13:59:00 09/17/19 23 09/18/2022 LIPID PANEL , STAND DARRYL HDL cholesterol 40 mg/dL > or = 40 normal Not Available [email or web address] [address] [address] [place], [address], 09/18/2022 13:59:00 09/17/19 23 09/18/2022 LIPID PANEL , STAND DARRYL triglyceride s 156 mg/dL <150 high Not Available [address] [place], [address], 09/18/2022 13:59:00 09/17/19 23 09/18/2022 LIPID PANEL , STAND DARRYL LDL-choleste rol 75 mg/dL _(columba c) normal Refer ence range : <100 Aicha able range <100 mg/dL for prima ry preve ntion ; <70 mg/dL for patie nts with CHD or diabe tic patie nts with > or = 2 CHD risk facto rs. LDL-C is now calcu lated using the Lana n-Hop kins calcu latio n, which is a valid ated novel metho d provi ding tanner r accur acy than the Fried raji equat ion in the estim ation of LDL-C . Lana de anda SS et al. ARISTIDES. 2013; 310(1 9): 2061- 2068 (http ://ed ucati on.Qu [employer] Executive Caddie/f aq/FA Q164) Not Available [address] [address] [place], [address], 09/18/2022 13:59:00 09/17/19 23 09/18/2022 LIPID PANEL , STAND DARRYL non HDL cholesterol 98 mg/dL _(columba c) <130 normal For patie nts with diabe andrea plus 1 major ASCVD risk facto r, treat ing to a non-H DL-C goal of <100 mg/dL (LDL- C of <70 mg/dL ) is consi dered a therisacc jacobo optio n. Not Available [address] [address] , [place], [address], 09/18/2022 13:59:00 11/17/19 23 11/19/2022 TESTO STERO NE, FREE, BIOAV AILAB LE AND TOTAL , MS albumin 4.2 g/dL 3.6-5. 1 Not Available [facility] [address] [place], [address], 11/19/2022 15:09:10 11/17/19 23 11/19/2022 TESTO STERO NE, FREE, BIOAV AILAB LE AND TOTAL , MS sex hormone binding globulin 59.3 nmol/ L 22-77 Not Available [facility] [address] [address] [place], [address], 11/19/2022 15:09:10 11/17/19 23 11/19/2022 TESTO STERO NE, FREE, BIOAV AILAB LE AND TOTAL , MS testosterone , free 41.7 pg/mL 6.0-73 .0 Not Available [facility] [address] [address] [address] , [place], [address], 11/19/2022 15:09:10 11/17/19 23 11/19/2022 TESTO STERO NE, FREE, BIOAV AILAB LE AND TOTAL , MS testosterone ,bioavailabl e 80.2 NG/dL 15.0-1 50.0 Not Available [facility] [address] [address] [place], [address], 11/19/2022 15:09:10 11/17/19 23 11/19/2022 TESTO STERO NE, FREE, BIOAV AILAB LE AND TOTAL , MS testosterone , total, MS 512 NG/dL 250-11 00 For addit ional oscar mejia e refer to https ://ed ucati on.qu estNeurOp. Executive Caddie/f aq/FA Q165 (This link is being provi ded for infor fara nal/e ducat ional purpo ses only. ) (Note ) This test was devel oped and its sloan tical perfo rmanc e vance cteri stics have been deter mined by [employer]. It has not been clear ed or appro lovely by the FDA. This assay has been valid ated pursu ant to the CLIA regul ation s and is used for clini columba purpo ses. KATIA de anda [address] [facility] [address] [place] [address] [phone] Gorge guadalupe MD Not Available [email or web address] [address] [address] [place], [address], 11/19/2022 15:09:10 02/09/20 23 02/09/2023 LIPID PANEL , STAND DARRYL cholesterol, total 98 mg/dL <200 normal Not Available [address], [address], 02/09/2023 10:24:35 02/09/20 23 02/09/2023 LIPID PANEL , STAND DARRYL HDL cholesterol 27 mg/dL > or = 40 low Not Available [address], [address], 02/09/2023 10:24:35 02/09/20 23 02/09/2023 LIPID PANEL , STAND DARRYL triglyceride s 102 mg/dL <150 normal Not Available [address], [address], 02/09/2023 10:24:35 02/09/20 23 02/09/2023 LIPID PANEL , STAND DARRYL LDL-choleste rol 52 mg/dL _(columba c) normal Refer ence range : <100 Aicha able range <100 mg/dL for prima ry preve ntion ; <70 mg/dL for patie nts with CHD or diabe tic patie nts with > or = 2 CHD risk facto rs. LDL-C is now calcu lated using the Lana n-Hop kins calcu romeo n, which is a valid ated novel kianao jonah hart r accur acy than the Fried raji equat ion in the estim ation of LDL-C . Lana de anda SS et al. ARISTIDES. 2013; 310(1 9): 2061- 2068 (http ://ed ucati on.Qu estDi Pipettes. com/f aq/FA Q164) Not Available [address], [address], 02/09/2023 10:24:35 02/09/20 23 02/09/2023 LIPID PANEL , STAND DARRYL chol/HDLC ratio 3.6 (calc ) <5.0 normal Not Available [address] [place], [address], 02/09/2023 10:24:35 02/09/20 23 02/09/2023 LIPID PANEL , STAND DARRYL non HDL cholesterol 71 mg/dL _(columba c) <130 normal For patie nts with diabe andrea plus 1 major ASCVD risk facto r, treat ing to a non-H DL-C goal of <100 mg/dL (LDL- C of <70 mg/dL ) is consi dered a thera peuti c optio n. Not Available [address], [address], 02/09/2023 10:24:35 02/09/2002/09/2023 COMPR EHENS JADA METAB OLIC PANEL glucose 109 mg/dL 65-99 high Fasti ng refer ence inter mitchel For someo ne witho ut known diabe andrea, a gluco se value betwe en 100 and 125 mg/dL is consi stent with predi abete s and shoul d be confi rmed with a follo w-up test. Not Available [email or web address] [address], [address], 02/09/2023 10:24:36 02/09/20 23 02/09/2023 COMPR EHENS JADA METAB OLIC PANEL urea nitrogen (BUN) 18 mg/dL 7-25 normal Not Available [email or web address] [address], [address], 02/09/2023 10:24:36 02/09/2002/09/2023 COMPR EHENS JADA METAB OLIC PANEL creatinine 0.82 mg/dL 0.70-1 .28 normal Not Available [email or web address] [address], [address], 02/09/2023 10:24:36 02/09/20 23 02/09/2023 COMPR EHENS JADA METAB OLIC PANEL eGFR 93 mL/mi n/1.7 3m2 > or = 60 normal The eGFR is based on the CKD-E PI 2020 equat ion. To calcu late the new eGFR from a previ ous Creat inine or Cysta tin C resul t, go to https ://francisco roth/westley hartmann s/ kdoqi /gfr% 5Fcal culat or Not Available [address] [address] [place], [address], 02/09/2023 10:24:36 02/09/20 23 02/09/2023 COMPR EHENS JADA METAB OLIC PANEL BUN/creatini ne ratio NOT APPLIC ABLE (calc ) 6-22 Not Available [address], [address], 02/09/2023 10:24:36 02/09/20 23 02/09/2023 COMPR EHENS JADA METAB OLIC PANEL sodium 142 mmol/ L 135-14 6 normal Not Available [address], [address], 02/09/2023 10:24:36 02/09/20 23 02/09/2023 COMPR EHENS JADA METAB OLIC PANEL potassium 3.7 mmol/ L 3.5-5. 3 normal Not Available [address], [address], 02/09/2023 10:24:36 02/09/20 23 02/09/2023 COMPR EHENS JADA METAB OLIC PANEL chloride 101 mmol/ L 98-110 normal Not Available [address], [address], 02/09/2023 10:24:36 02/09/20 23 02/09/2023 COMPR EHENS JADA METAB OLIC PANEL carbon dioxide 29 mmol/ L 20-32 normal Not Available [address], [address], 02/09/2023 10:24:36 02/09/20 23 02/09/2023 COMPR EHENS JADA METAB OLIC PANEL calcium 9.3 mg/dL 8.6-10 .3 normal Not Available [address], [address], 02/09/2023 10:24:36 02/09/20 23 02/09/2023 COMPR EHENS JADA METAB OLIC PANEL protein, total 6.7 g/dL 6.1-8. 1 normal Not Available [address], [address], 02/09/2023 10:24:36 02/09/20 23 02/09/2023 COMPR EHENS JADA METAB OLIC PANEL albumin 4.0 g/dL 3.6-5. 1 normal Not Available [address], [address], 02/09/2023 10:24:36 02/09/20 23 02/09/2023 COMPR EHENS JADA METAB OLIC PANEL globulin 2.7 g/dL_ (calc ) 1.9-3. 7 normal Not Available [address], [address], 02/09/2023 10:24:36 02/09/20 23 02/09/2023 COMPR EHENS JADA METAB OLIC PANEL albumin/glob ulin ratio 1.5 (calc ) 1.0-2. 5 normal Not Available [address], [address], 02/09/2023 10:24:36 02/09/20 23 02/09/2023 COMPR EHENS JADA METAB OLIC PANEL bilirubin, total 0.6 mg/dL 0.2-1. 2 normal Not Available [address], [address], 02/09/2023 10:24:36 02/09/20 23 02/09/2023 COMPR EHENS JADA METAB OLIC PANEL alkaline phosphatase 78 U/L 35-144 normal Not Available [address] [address] [place], [address], 02/09/2023 10:24:36 02/09/20 23 02/09/2023 COMPR EHENS JADA METAB OLIC PANEL AST 13 U/L 10-35 normal Not Available [address] [address] [place], [address], 02/09/2023 10:24:36 02/09/20 23 02/09/2023 COMPR EHENS JADA METAB OLIC PANEL ALT 13 U/L 9-46 normal Not Available [address] [address] [place], [address], 02/09/2023 10:24:36 02/09/20 23 02/09/2023 ALBUM IN, RANDO M URINE W/CRE ATINI NE creatinine, random urine 110 mg/dL 20-320 normal Not Available [address] [address] [place], [address], 02/09/2023 10:24:37 02/09/20 23 02/09/2023 ALBUM IN, RANDO M URINE W/CRE ATINI NE albumin, urine 1.4 mg/dL see note: normal Refer ence Range : Refer ence Range Not estab lishe d Not Available [address] [address] [place], [address], 02/09/2023 10:24:37 02/09/20 23 02/09/2023 ALBUM IN, RANDO M URINE W/CRE ATINI NE albumin/crea tinine ratio, random urine 13 mcg/m g_cre at <30 normal The ADA defin es abnor malit ies in album in excre tion as follo ws: Album inuri a Categ ory Resul t (mcg/ mg creat inine ) Karin l to Mildl y incre ased <30 Moder ately incre ased 30-29 9 Sever burton incre ased > OR = 300 The ADA recom mends that at least two of three speci mens colle cted withi n a 3-6 month perio d be abnor mal befor e consi marley g a patie nt to be withi n a diagn ostic categ ory. Not Available [address], [address], 02/09/2023 10:24:37 02/09/20 23 02/09/2023 CBC (INCL UDES DIFF/ PLT) white blood cell count 9.5 thous and/u L 3.8-10 .8 normal Not Available [address], [address], 02/09/2023 10:24:37 02/09/2002/09/2023 CBC (INCL UDES DIFF/ PLT) red blood cell count 5.50 destini on/uL 4.20-5 .80 normal Not Available [address], [address], 02/09/2023 10:24:37 02/09/20 23 02/09/2023 CBC (INCL UDES DIFF/ PLT) hemoglobin 15.5 g/dL 13.2-1 7.1 normal Not Available [address], [address], 02/09/2023 10:24:37 02/09/20 23 02/09/2023 CBC (INCL UDES DIFF/ PLT) hematocrit 45.8 % 38.5-5 0.0 normal Not Available [address], [address], 02/09/2023 10:24:37 02/09/20 23 02/09/2023 CBC (INCL UDES DIFF/ PLT) MCV 83.3 fL 80.0-1 00.0 normal Not Available [address], [address], 02/09/2023 10:24:37 02/09/20 23 02/09/2023 CBC (INCL UDES DIFF/ PLT) MCH 28.2 pg 27.0-3 3.0 normal Not Available [address], [address], 02/09/2023 10:24:37 02/09/20 23 02/09/2023 CBC (INCL UDES DIFF/ PLT) MCHC 33.8 g/dL 32.0-3 6.0 normal Not Available [address], [address], 02/09/2023 10:24:37 02/09/20 23 02/09/2023 CBC (INCL UDES DIFF/ PLT) RDW 13.1 % 11.0-1 5.0 normal Not Available [address], [address], 02/09/2023 10:24:37 02/09/20 23 02/09/2023 CBC (INCL UDES DIFF/ PLT) platelet count 232 thous and/u L 140-40 0 normal Not Available [address], [address], 02/09/2023 10:24:37 02/09/2002/09/2023 CBC (INCL UDES DIFF/ PLT) MPV 8.8 fL 7.5-12 .5 normal Not Available [address], [address], 02/09/2023 10:24:37 02/09/20 23 02/09/2023 CBC (INCL UDES DIFF/ PLT) absolute neutrophils 6251 cells /uL 1500-7 800 normal Not Available [address], [address], 02/09/2023 10:24:37 02/09/2002/09/2023 CBC (INCL UDES DIFF/ PLT) absolute lymphocytes 2290 cells /uL 850-39 00 normal Not Available [address], [address], 02/09/2023 10:24:37 02/09/20 23 02/09/2023 CBC (INCL UDES DIFF/ PLT) absolute monocytes 789 cells /uL 200-95 0 normal Not Available [address], [address], 02/09/2023 10:24:37 02/09/20 23 02/09/2023 CBC (INCL UDES DIFF/ PLT) absolute eosinophils 114 cells /uL 15-500 normal Not Available [address], [address], 02/09/2023 10:24:37 02/09/20 23 02/09/2023 CBC (INCL UDES DIFF/ PLT) absolute basophils 57 cells /uL 0-200 normal Not Available [address], [address], 02/09/2023 10:24:37 02/09/20 23 02/09/2023 CBC (INCL UDES DIFF/ PLT) neutrophils 65.8 % normal Not Available [address], [address], 02/09/2023 10:24:37 02/09/20 23 02/09/2023 CBC (INCL UDES DIFF/ PLT) lymphocytes 24.1 % normal Not Available [address], [address], 02/09/2023 10:24:37 02/09/20 23 02/09/2023 CBC (INCL UDES DIFF/ PLT) monocytes 8.3 % normal Not Available [facility] [address], [address], 02/09/2023 10:24:37 02/09/20 23 02/09/2023 CBC (INCL UDES DIFF/ PLT) eosinophils 1.2 % normal Not Available [address], [address], 02/09/2023 10:24:37 02/09/20 23 02/09/2023 CBC (INCL UDES DIFF/ PLT) basophils 0.6 % normal Not Available [email or web address] [address], [address], 02/09/2023 10:24:37 02/09/20 23 02/09/2023 T4, FREE T4, free 1.2 NG/dL 0.8-1. 8 normal Not Available [email or web address] [address], [address], 02/09/2023 10:24:38 02/09/2002/09/2023 TSH TSH 2.42 mIU/L 0.40-4 .50 normal Not Available [address], [address], 02/09/2023 10:24:38 02/09/2002/09/2023 VITAM IN B12/F OLATE , SERUM PANEL vitamin B12 338 pg/mL 200-11 00 normal Pleas e Note: Altho ugh the refer ence range for vitam in B12 is 200-1 100 pg/mL , it has been repor lino that betwe en 5 and 10% of patie nts with value s betwe en 200 and 400 pg/mL may exper ience neuro psych iatri c and hemat ologi c abnor malit ies due to occul t B12 defic iency ; less than 1% of patie nts with value s above 400 pg/mL will have sympt oms. Not Available [address], [address], 02/09/2023 10:24:39 02/09/2002/09/2023 VITAM IN B12/F OLATE , SERUM PANEL folate, serum >24.0 NG/mL normal Refer ence Range Low: <3.4 Borde rline : 3.4-5 .4 Karin l: >5.4 Not Available [email or web address] [address], [address], 02/09/2023 10:24:39 02/09/20 23 02/09/2023 SEX HORMO NE GINA NG GLOBU PEG sex hormone binding globulin 58 nmol/ L 22-77 normal Not Available [facility] [address] [place], [address], 02/09/2023 10:24:40 02/09/2002/09/2023 T3, FREE T3, free 3.5 pg/mL 2.3-4. 2 normal Not Available [facility] [address] [address] , [place], [address], 02/09/2023 10:24:40 02/09/2002/09/2023 HEMOG LOBIN A1C hemoglobin A1C 8.0 %_of_ total _HGB <5.7 high For someo ne witho ut known diabe andrea, a hemog lobin A1c value of 6.5% or great er indic ates that they may have diabe andrea and this shoul d be confi rmed with a follo w-up test. For someo ne with known diabe andrea, a value <7% indic ates that their diabe andrea is well contr olled and a value great er than or equal to 7% indic ates subop timal contr ol. A1c targe ts shoul d be indiv idual ized based on durat ion of diabe andrea, age, comor bid condi tions , and other consi derat ions. Curre ntly, no conse nsus exist s marcella reyes use of hemog lobin A1c for diagn osis of diabe andrea for child jennifer. Not Available [facility] [address] [place], [address], 02/09/2023 10:24:41 05/07/2005/10/2023 TESTO STERO NE, FREE, BIOAV AILAB LE AND TOTAL , MS albumin 4.1 g/dL 3.6-5. 1 Not Available [facility] [address] [place], [address], 05/10/2023 14:35:40 05/07/20 23 05/10/2023 TESTO STERO NE, FREE, BIOAV AILAB LE AND TOTAL , MS sex hormone binding globulin 55.7 nmol/ L 22-77 Not Available [address], [address], 05/10/2023 14:35:40 05/07/20 23 05/10/2023 TESTO STERO NE, FREE, BIOAV AILAB LE AND TOTAL , MS testosterone , free 44.2 pg/mL 6.0-73 .0 Not Available [address], [address], 05/10/2023 14:35:40 05/07/2005/10/2023 TESTO STERO NE, FREE, BIOAV AILAB LE AND TOTAL , MS testosterone ,bioavailabl e 83.2 NG/dL 15.0-1 50.0 Not Available [address], [address], 05/10/2023 14:35:40 05/07/2005/10/2023 TESTO STERO NE, FREE, BIOAV AILAB LE AND TOTAL , MS testosterone , total, MS 510 NG/dL 250-11 00 For addit ional claytonr oscar marroquin e refer to https ://ed ucati on.qu stanley Wave - Private Location App. Executive Caddie/f aq/FA Q165 (This link is being provi ded for infor fara nal/e ducat ional purpo ses only. ) (Note ) This test was devel oped and its sloan tical perfo rmanc e vance cteri stics have been deter mined by [employer]. It has not been clear ed or appro lovely by the FDA. This assay has been valid ated pursu ant to the CLIA regul ation s and is used for clini [place]umba purpo ses. MDF med fuswayne n [address] [facility] [address] [facility] [address] [phone] Nico marcial MD Not Available [facility] [address] [place], [address], 05/10/2023 14:35:40 05/07/20 23 05/10/2023 LIPID PANEL , STAND DARRYL cholesterol, total 113 mg/dL <200 normal Not Available [facility] [address] [place], [address], 05/10/2023 14:35:41 05/07/20 23 05/10/2023 LIPID PANEL , STAND DARRYL HDL cholesterol 29 mg/dL > or = 40 low Not Available [facility] [address] [address] [place], [address], 05/10/2023 14:35:41 05/07/20 23 05/10/2023 LIPID PANEL , STAND DARRYL triglyceride s 148 mg/dL <150 normal Not Available [facility] [address] [address] [place], [address], 05/10/2023 14:35:41 05/07/20 23 05/10/2023 LIPID PANEL , STAND DARRYL LDL-choleste rol 61 mg/dL _(columba c) normal Refer ence range : <100 Aicha able range <100 mg/dL for prima ry preve ntion ; <70 mg/dL for patie nts with CHD or diabe tic patie nts with > or = 2 CHD risk facto rs. LDL-C is now calcu lated using the Lana n-Hop kins calcu romeo n, which is a valid ated novel metho d provi amy hart r accur acy than the Fried raji equat ion in the estim ation of LDL-C . Lana de anda SS et al. ARISTIDES. 2013; 310(1 9): 2061- 2068 (http ://ed ucati on.Qu estDi kanaos tics. com/f aq/FA Q164) Not Available [facility] [address] [place], [address], 05/10/2023 14:35:41 05/07/20 23 05/10/2023 LIPID PANEL , STAND DARRYL chol/HDLC ratio 3.9 (calc ) <5.0 normal Not Available [address], [address], 05/10/2023 14:35:41 05/07/20 23 05/10/2023 LIPID PANEL , STAND DARRYL non HDL cholesterol 84 mg/dL _(columba c) <130 normal For patie nts with diabe andrea plus 1 major ASCVD risk facto r, treat ing to a non-H DL-C goal of <100 mg/dL (LDL- C of <70 mg/dL ) is consi hoa jacobo optio n. Not Available [address], [address], 05/10/2023 14:35:41 05/07/2005/10/2023 COMPR EHENS JADA METAB OLIC PANEL glucose 162 mg/dL 65-99 high Fasti ng refer ence inter mitchel For someo ne witho ut known diabe andrea, a gluco se value >125 mg/dL indic ates that they may have diabe andrea and this shoul d be confi rmed with a follo w-up test. Not Available [address], [address], 05/10/2023 14:35:42 05/07/2005/10/2023 COMPR EHENS JADA METAB OLIC PANEL urea nitrogen (BUN) 14 mg/dL 7-25 normal Not Available [facility] [address] [address] [place], [address], 05/10/2023 14:35:42 05/07/2005/10/2023 COMPR EHENS JADA METAB OLIC PANEL creatinine 0.95 mg/dL 0.70-1 .28 normal Not Available [facility] [address] [address] [place], [address], 05/10/2023 14:35:42 05/07/20 23 05/10/2023 COMPR EHENS JADA METAB OLIC PANEL eGFR 85 mL/mi n/1.7 3m2 > or = 60 normal Not Available [address], [address], 05/10/2023 14:35:42 05/07/20 23 05/10/2023 COMPR EHENS JADA METAB OLIC PANEL BUN/creatini ne ratio SEE NOTE: (calc ) 6-22 Not Repor lino: BUN and Creat inine are withi n refer ence range . Not Available [address], [address], 05/10/2023 14:35:42 05/07/20 23 05/10/2023 COMPR EHENS JADA METAB OLIC PANEL sodium 140 mmol/ L 135-14 6 normal Not Available [address], [address], 05/10/2023 14:35:42 05/07/20 23 05/10/2023 COMPR EHENS JADA METAB OLIC PANEL potassium 3.8 mmol/ L 3.5-5. 3 normal Not Available [address], [address], 05/10/2023 14:35:42 05/07/20 23 05/10/2023 COMPR EHENS JADA METAB OLIC PANEL chloride 101 mmol/ L 98-110 normal Not Available [address], [address], 05/10/2023 14:35:42 05/07/20 23 05/10/2023 COMPR EHENS JADA METAB OLIC PANEL carbon dioxide 31 mmol/ L 20-32 normal Not Available [address], [address], 05/10/2023 14:35:42 05/07/20 23 05/10/2023 COMPR EHENS JADA METAB OLIC PANEL calcium 9.5 mg/dL 8.6-10 .3 normal Not Available [address], [address], 05/10/2023 14:35:42 05/07/20 23 05/10/2023 COMPR EHENS JADA METAB OLIC PANEL protein, total 6.8 g/dL 6.1-8. 1 normal Not Available [address], [address], 05/10/2023 14:35:42 05/07/20 23 05/10/2023 COMPR EHENS JADA METAB OLIC PANEL albumin 4.2 g/dL 3.6-5. 1 normal Not Available [address], [address], 05/10/2023 14:35:42 05/07/20 23 05/10/2023 COMPR EHENS JADA METAB OLIC PANEL globulin 2.6 g/dL_ (calc ) 1.9-3. 7 normal Not Available [address], [address], 05/10/2023 14:35:42 05/07/20 23 05/10/2023 COMPR EHENS JADA METAB OLIC PANEL albumin/glob ulin ratio 1.6 (calc ) 1.0-2. 5 normal Not Available [address], [address], 05/10/2023 14:35:42 05/07/20 23 05/10/2023 COMPR EHENS JADA METAB OLIC PANEL bilirubin, total 0.5 mg/dL 0.2-1. 2 normal Not Available [address], [address], 05/10/2023 14:35:42 05/07/20 23 05/10/2023 COMPR EHENS JADA METAB OLIC PANEL alkaline phosphatase 88 U/L 35-144 normal Not Available [address], [address], 05/10/2023 14:35:42 05/07/20 23 05/10/2023 COMPR EHENS JADA METAB OLIC PANEL AST 14 U/L 10-35 normal Not Available [address] [address] [place], [address], 05/10/2023 14:35:42 05/07/20 23 05/10/2023 COMPR EHENS JADA METAB OLIC PANEL ALT 18 U/L 9-46 normal Not Available [address] [address] [place], [address], 05/10/2023 14:35:42 05/07/20 23 05/10/2023 ALBUM IN, RANDO M URINE W/CRE ATINI NE creatinine, random urine 66 mg/dL 20-320 normal Not Available [address] [address] [place], [address], 05/10/2023 14:35:42 05/07/20 23 05/10/2023 ALBUM IN, RANDO M URINE W/CRE ATINI NE albumin, urine 0.8 mg/dL see note: normal Refer ence Range : Refer ence Range Not estab lishe d Not Available [address] [address] [place], [address], 05/10/2023 14:35:42 05/07/20 23 05/10/2023 ALBUM IN, RANDO M URINE W/CRE ATINI NE albumin/crea tinine ratio, random urine 12 mcg/m g_cre at <30 normal The ADA defin es abnor malit ies in album in excre tion as follo ws: Album inuri a Categ ory Resul t (mcg/ mg creat inine ) Karin l to Mildl y incre ased <30 Moder ately incre ased 30-29 9 Sever burton incre ased > OR = 300 The ADA recom mends that at least two of three speci mens colle cted withi n a 3-6 month perio d be abnor mal befor e consi marley g a patie nt to be withi n a diagn ostic categ ory. Not Available [address], [address], 05/10/2023 14:35:42 05/07/20 23 05/10/2023 CBC (INCL UDES DIFF/ PLT) white blood cell count 8.2 thous and/u L 3.8-10 .8 normal Not Available [address], [address], 05/10/2023 14:35:43 05/07/2005/10/2023 CBC (INCL UDES DIFF/ PLT) red blood cell count 5.44 destini on/uL 4.20-5 .80 normal Not Available [address], [address], 05/10/2023 14:35:43 05/07/20 23 05/10/2023 CBC (INCL UDES DIFF/ PLT) hemoglobin 16.3 g/dL 13.2-1 7.1 normal Not Available [address], [address], 05/10/2023 14:35:43 05/07/2005/10/2023 CBC (INCL UDES DIFF/ PLT) hematocrit 46.0 % 38.5-5 0.0 normal Not Available [address], [address], 05/10/2023 14:35:43 05/07/20 23 05/10/2023 CBC (INCL UDES DIFF/ PLT) MCV 84.6 fL 80.0-1 00.0 normal Not Available [address], [address], 05/10/2023 14:35:43 05/07/20 23 05/10/2023 CBC (INCL UDES DIFF/ PLT) MCH 30.0 pg 27.0-3 3.0 normal Not Available [facility] [address] [address], [place], [address], 05/10/2023 14:35:43 05/07/2005/10/2023 CBC (INCL UDES DIFF/ PLT) MCHC 35.4 g/dL 32.0-3 6.0 normal Not Available [address], [address], 05/10/2023 14:35:43 05/07/20 23 05/10/2023 CBC (INCL UDES DIFF/ PLT) RDW 13.2 % 11.0-1 5.0 normal Not Available [address], [address], 05/10/2023 14:35:43 05/07/20 23 05/10/2023 CBC (INCL UDES DIFF/ PLT) platelet count 257 thous and/u L 140-40 0 normal Not Available [address], [address], 05/10/2023 14:35:43 05/07/20 23 05/10/2023 CBC (INCL UDES DIFF/ PLT) MPV 8.9 fL 7.5-12 .5 normal Not Available [address], [address], 05/10/2023 14:35:43 05/07/2005/10/2023 CBC (INCL UDES DIFF/ PLT) absolute neutrophils 4879 cells /uL 1500-7 800 normal Not Available [address], [address], 05/10/2023 14:35:43 05/07/2005/10/2023 CBC (INCL UDES DIFF/ PLT) absolute lymphocytes 2378 cells /uL 850-39 00 normal Not Available [address], [address], 05/10/2023 14:35:43 05/07/20 23 05/10/2023 CBC (INCL UDES DIFF/ PLT) absolute monocytes 763 cells /uL 200-95 0 normal Not Available [address], [address], 05/10/2023 14:35:43 05/07/20 23 05/10/2023 CBC (INCL UDES DIFF/ PLT) absolute eosinophils 123 cells /uL 15-500 normal Not Available [facility] [address], [address], 05/10/2023 14:35:43 05/07/20 23 05/10/2023 CBC (INCL UDES DIFF/ PLT) absolute basophils 57 cells /uL 0-200 normal Not Available [facility] [address], [address], 05/10/2023 14:35:43 05/07/20 23 05/10/2023 CBC (INCL UDES DIFF/ PLT) neutrophils 59.5 % normal Not Available [facility] [address], [address], 05/10/2023 14:35:43 05/07/20 23 05/10/2023 CBC (INCL UDES DIFF/ PLT) lymphocytes 29.0 % normal Not Available [facility] [address], [address], 05/10/2023 14:35:43 05/07/20 23 05/10/2023 CBC (INCL UDES DIFF/ PLT) monocytes 9.3 % normal Not Available [facility] [address], [address], 05/10/2023 14:35:43 05/07/20 23 05/10/2023 CBC (INCL UDES DIFF/ PLT) eosinophils 1.5 % normal Not Available [facility] [address], [address], 05/10/2023 14:35:43 05/07/20 23 05/10/2023 CBC (INCL UDES DIFF/ PLT) basophils 0.7 % normal Not Available [address], [address], 05/10/2023 14:35:43 05/07/2005/10/2023 VITAM IN B12 vitamin B12 560 pg/mL 200-11 00 normal Not Available [address], [address], 05/10/2023 14:35:44 05/07/2005/10/2023 T3, FREE T3, free 3.5 pg/mL 2.3-4. 2 normal Not Available [address], [address], 05/10/2023 14:35:44 05/07/20 23 05/10/2023 TSH+F REE T4 TSH 2.64 mIU/L 0.40-4 .50 normal Not Available [address], [address], 05/10/2023 14:35:45 05/07/2005/10/2023 TSH+F REE T4 T4, free 1.0 NG/dL 0.8-1. 8 normal Not Available [address], [address], 05/10/2023 14:35:45 05/07/2005/10/2023 HEMOG LOBIN A1C hemoglobin A1C 8.3 %_of_ total _HGB <5.7 high For someo ne witho ut known diabe andrea, a hemog lobin A1c value of 6.5% or great er indic ates that they may have diabe andrea and this shoul d be confi rmed with a follo w-up test. For someo ne with known diabe andrea, a value <7% indic ates that their diabe andrea is well contr olled and a value great er than or equal to 7% indic ates subop timal contr ol. A1c targe ts shoul d be indiv idual ized based on durat ion of diabe andrea, age, comor bid condi tions , and other consi derat ions. Curre ntly, no conse nsus exist s marcella reyes use of hemog lobin A1c for diagn osis of diabe andrea for child jennifer. Not Available [employer] [address] [address] [address] , [place], [address], 05/10/2023 14:35:46 Result Notes None recorded. Problems Name Problem SNOMED Code Status Onset Date Resolution Date Notes Provider Name and Address Organization Details Recorded Time Dyslipidemia 620423093 Active 2021 Not Available [facility] 3 23:30:01 Uncontrolled type 2 diabetes mellitus 258506976 Active 2021 Not Available [facility] 3 23:30:01 Fatigue 95280708 Active 2022 Tia Braun MD [address] [facility], [address], [address] , [facility] [employer] 3 14:13:53 Well controlled type 2 diabetes mellitus 757305944 Active 2022 Tia Braun MD [address] [facility], [address] [address], [place], [address] , [employer] [facility] 3 12:35:24 Hypothyroidis m 89287729 Active 2022 NIHARIKA Ervin null, [facility] [employer] [facility] 3 17:26:46 Vitamin B12 deficiency (non anemic) 04285451 Active 2022 Sarah Wagner null, [facility] [employer] [facility] 3 09:36:03 Problem Notes None recorded. Procedures Surgical History Date Name Laterality Status Provider Name and Address Organization Details Recorded Time Colonoscopy & polypectomy completed Not Available [facility] 10/31/2022 23:28:47 Hernia Repair completed Not Available [facility] 10/31/2022 23:28:47 Pacemaker completed Not Available [place] [place] [address] 10/31/2022 23:28:47 Kidney Stones completed Not Available [facility] 10/31/2022 23:28:47 Lasik completed Not Available [facility] 09/2022 23:28:47 Tonsillectomy completed Not Available [facility] 10/31/2022 23:28:47 cervical spinal fusion for pseudoarthrosis completed Not Available [facility] 10/31/2022 23:28:47 Hemorrhoidectomy completed Not Available [facility] 10/31/2022 23:28:47 implantation of cardiac pacemaker completed Not Available [facility] 23:28:47 myelogram completed Not Available [place] [address] 10/31/2022 23:28:47 Colonoscopy completed Not Available [facility] 10/31/2022 23:28:47 Laparoscopic cholecystectomy completed Not Available [facility] 10/31/2022 23:28:47 Imaging Results None recorded. Procedure Notes None recorded. Medical Equipment None Reported. Allergies Allergen ID Allergen Name Allergen Category Reaction Reaction Severity Criticality Documentation Date Start Date Code Code System Note Provider Name and Address Organization Details Recorded Time 96632 atropine medicatio n Not available Not available Not available 10/31/2022 1223 RxNorm Not Available [facility] 23:31:13 Medications Name Sig Start Date Stop Date Status Note LastModified by Organization Details LastModified Time amoxicillin 500 mg capsule 08/08 completed Not Available Not Available Not Available atorvastati n 40 mg tablet Take 1 tablet every other day by oral route at bedtime for 90 days. 2022 active Not Available Not Available Not Avai lable potassium chloride ER 10 mEq capsule,ext ended release active Not Available Not Available Not Available erythromyci n 500 mg tablet 10/09 completed Not Available Not Available Not Available fluconazole 150 mg tablet Take 1 tablet every week by oral route as needed for 30 days. 05/21 completed Not Available Not Available Not Available meloxicam 15 mg tablet TAKE 1 TABLET BY MOUTH ONCE DAILY WITH FOOD active Not Available Not Available No t Available FreeStyle Lancets 28 gauge USE TO TEST BLOOD SUGAR TWICE DAILY BEFORE MEALS active Not Available Not Available No t Available Synthroid 100 mcg tablet Take 1 tablet every day by oral route in the morning for 90 days. 2022 active Not Available Not Available Not Avai lable penicillin V potassium 500 mg tablet 08/08 completed Not Available Not Available Not Available amlodipine 2.5 mg tablet active Not Available Not Available Not Available metronidazo le 500 mg tablet 05/21 completed Not Available Not Available Not Available sulfamethox azole 800 mg-trimetho prim 160 mg tablet TAKE 1 TABLET BY MOUTH EVERY 12 HOURS FOR 7 DAYS 08/08 completed Not Available Not Available Not Available omeprazole 40 mg capsule,del ayed release active Not Available Not Available Not Available sildenafil 100 mg tablet 10/09 completed Not Available Not Available Not Available glimepiride 2 mg tablet Take 2 tablets twice a day by oral route before meals for 90 days. active Not Available Not Available No t Available oxycodone-a cetaminophe n 5 mg-325 mg tablet TAKE 1 TABLET BY MOUTH EVERY 4 HOURS NEEDED FOR PAIN 05/21 completed Not Available Not Available Not Available tamsulosin 0.4 mg capsule TAKE 1 CAPSULE BY MOUTH EVERY MORNING 10/09 completed Not Available Not Available Not Available cephalexin 500 mg capsule 08/08 completed Not Available Not Available Not Available simvastatin 20 mg tablet 05/21 completed Not Available Not Available Not Available cyanocobala min (vit B-12) 1,000 mcg/mL injection solution Inject 1 mL every week by subcutane ous route for 90 days. active Not Available Not Available No t Available glimepiride 4 mg tablet Take 1 tablet twice a day by oral route before meals for 90 days. 2022 active Not Available Not Available Not Avai lable insulin syringe U-100 with needle 1 mL 31 gauge x 5/16 USE DIRECTED TO INJECT B12 WEEKLY active Not Available Not Available No t Available Micardis HCT 40 mg-12.5 mg tablet active Not Available Not Available Not Available metoprolol succinate ER 25 mg tablet,exte nded release 24 hr active Not Available Not Available Not Available metformin ER 500 mg tablet,exte nded release 24 hr TAKE 1 TABLET BY MOUTH EVERY DAY WITH THE EVENING MEAL 2022 active Not Available Not Available Not Avai lable finasteride 5 mg tablet active Not Available Not Available Not Available cyclobenzap rine 5 mg tablet Take 1 tablet 3 times a day by oral route as needed for 30 days. 05/21 completed Not Available Not Available Not Available tadalafil 10 mg tablet active Not Available Not Available Not Available BD Ultra-Fine Short Pen Needle 31 gauge x 516 active Not Available Not Available Not Available Januvia 100 mg tablet 08/08 completed Not Available Not Available Not Available Enbrel SureClick 50 mg/mL (1 mL) subcutaneou s pen injector active Not Available Not Available Not Available FreeStyle Lite Meter kit USE TO TEST SUGARS TWICE DAILY BEFORE MEALS active Not Available Not Available No t Available FreeStyle Lite Strips test sugars twice daily x 90 days 2022 active Not Available Not Available Not Avai lable Lantus Solostar U-100 Insulin 100 unit/mL (3 mL) subcutaneou s pen inject 8 units in morning and 12 units at bedtime and titrate to goal fasting glucose active Not Available Not Available No t Available BD Ultra-Fine Lyudmila Pen Needle 32 gauge x active Not Available Not Available Not Available sodium,pota ssium,mag sulfates 17.5 gram-3.13 gram-1.6 gram oral soln MIX AND DRINK DIRECTED active Not Available Not Available No t Available Easy Touch Alcohol Prep Pads active Not Available Not Available No t Available Jardiance 25 mg tablet active Not Available Not Available Not Available Trulicity 1.5 mg/0.5 mL subcutaneou s pen injector 05/01 completed Not Available Not Available Not Available Trulicity 0.75 mg/0.5 mL subcutaneou s pen injector 08/08 completed Not Available Not Available Not Available aspirin 80 mg tablet Take by oral route. 2020 active Not Available Not Available Not Avai lable Toujeo SoloStar U-300 Insulin 300 unit/mL (1.5 mL) subcutaneou s pen inject 14 units in the morning and 16 units at bedtime 12/18 completed Not Available Not Available Not Available Tresiba FlexTouch U-200 insulin 200 unit/mL (3 mL) subcutaneou s pen Inject 24 units every day by subcutane ous route at bedtime for 90 days. active Not Available Not Available No t Available Tresiba FlexTouch U-100 insulin 100 unit/mL (3 mL) subcutaneou s pen Inject 24 units every day by subcutane ous route at bedtime for 90 days. 05/21 completed Not Available Not Available Not Available Vascepa 0.5 gram capsule Take 2 capsules twice a day by oral route with meals for 90 days. 07/05 completed Not Available Not Available Not Available Bernie Song U-300 SoloStar 300 unit/mL (3 mL) subcutaneou s insulin pen 05/01 completed Not Available Not Available Not Available Trulicity 3 mg/0.5 mL subcutaneou s pen injector INJECT 3 MG UNDER THE SKIN EVERY WEEK AT DINNER 2022 active Not Available Not Available Not Avai lable [employer] COVID-19 Ag Self Test kit TEST DIRECTED TODAY 05/21 completed Not Available Not Available Not Available Paxlovid 300 mg (150 mg x 2)-100 mg tablets in a dose pack TAKE TWO TABLET OF 150MG NIRMATREL VIR WITH ONE TABLET OF 100MG RITONAVIR BY MOUTH TWICE DAILY FOR 5 DAYS 10/09 completed Not Available Not Available Not Available Vitals Date Recorded Body mass index (BMI) Body height Oxygen saturation Oxygen saturation in Arterial blood by Pulse oximetry Heart rate Body temperature Body weight Systolic blood pressure Diastolic blood pressure Provider Name and Address Organization Details Last Updated DateTime 2 31.6 kg/m2 170.18 cm 96 % 96 % 67 /min 97.8 [degF] 19009.6 6 g 140 mm[Hg] 90 mm[Hg] Not Available [facility] 3 23:29:04 Date Recorded Body mass index (BMI) Body height Oxygen saturation Oxygen saturation in Arterial blood by Pulse oximetry Heart rate Body temperature Body weight Systolic blood pressure Diastolic blood pressure Provider Name and Address Organization Details Last Updated DateTime 2 30.9 kg/m2 170.18 cm 99 % 99 % 68 /min 97.8 [degF] 18062.7 g 130 mm[Hg] 70 mm[Hg] Not Available [facility] 3 23:29:05 Date Recorded Body mass index (BMI) Body height Oxygen saturation Oxygen saturation in Arterial blood by Pulse oximetry Heart rate Body temperature Body weight Systolic blood pressure Diastolic blood pressure Provider Name and Address Organization Details Last Updated DateTime 2 30.9 kg/m2 170.18 cm 99 % 99 % 70 /min 97.4 [degF] 26971.7 g 120 mm[Hg] 70 mm[Hg] Not Available [facility] 3 23:29:05 Date Recorded Body mass index (BMI) Body height Oxygen saturation Oxygen saturation in Arterial blood by Pulse oximetry Heart rate Body temperature Body weight Systolic blood pressure Diastolic blood pressure Provider Name and Address Organization Details Last Updated DateTime 3 30.7 kg/m2 170.18 cm 96 % 96 % 85 /min 97.3 [degF] 64291.1 g 120 mm[Hg] 60 mm[Hg] Not Available [facility] 3 23:29:05 Date Recorded Body height Body mass index (BMI) Body weight Body temperature Heart rate Respiratory rate Systolic blood pressure Diastolic blood pressure Provider Name and Address Organization Details Last Updated DateTime 3 170.18 cm 30.3 kg/m2 27326.4 8 g 97.7 [degF] 67 /min 16 /min 126 mm[Hg] 67 mm[Hg] Siria Weir RN [facility] [employer] [facility] 3 11:24:34 Social History Question Answer Notes LastModified by [employer] ion Details LastModified Time Tobacco Smoking Status Former Smoker Not Available [facility] 10/31/2022 23:28:26 What Is Your Level Of Alcohol Consumption? Occasional [id number] Information not available 10/31/2022 What Is Your Level Of Caffeine Consumption? Heavy [id number] Information not available 10/31/2022 What Is The Highest Grade Or Level Of School You Have Completed Or The Highest Degree You Have Received? [id number] [id number] Information not available 10/31/2022 When Did You Quit Smoking? 16+yearssincel astcigarette [id number] Information not available 10/31/2022 Have You Ever Been Counseled For Unhealthy Alcohol Use? No [id number] Information not available 10/31/2022 What Is Your Relationship Status? [id number] Information not available 10/31/2022 Do You Use Any Illicit Or Recreational Drugs? No [id number] Information not available 10/31/2022 Has Tobacco Cessation Counseling Been Provided? No [id number] Information not available 10/31/2022 Do You Or Have You Ever Used Any Other Forms Of Tobacco Or Nicotine? No [id number] Information not available 10/31/2022 Sex: Male Functional Status None recorded. Mental Status None recorded. Family History Relationship Description Onset Age of this Age Resolved Age Notes LastModified by Organization Details LastModified Time Paternal Grandmother Diabetes mellitus [id number] Not available 10/31/2022 23:28:48 Father Myocardial infarction [id number] Not available 10/31/2022 23:28:48 Brother Myocardial infarction [id number] [id number] Not available 10/31/2022 23:28:48 Paternal Grandfather Chronic obstructive pulmonary disease [id number] Not available 10/31/2022 23:28:48 Maternal Grandfather Chronic obstructive pulmonary disease [id number].218 [id number] Not available 10/31/2022 23:28:48 Paternal Uncle Malignant tumor of lung 3uncle s [id number].[id number] Not available 10/31/2022 23:28:48 Medical History Condition Response EYE PROBLEMS Y HYPERTHYROIDISM Y HYPOTHYROIDISM Y HEART DISEASE/HEART PROBLEMS Y DIABETES, TYPE Y HYPERTENSION Y HIGH CHOLESTEROL / HYPERLIPIDEMIA Y Past Encounters Encounter ID Performer Location Encounter Start Date Encounter Closed Date Diagnosis/Indication Diagnosis SNOMED-CT Code Diagnosis ICD10 Code Diagnosis Note [id number] [facility] [address] [place] [address] 08/08/2021 00:00:00 08/08/2021 18:02:40 [id number] [facility] [address] [place] [address] 08/21/2021 00:00:00 08/21/2021 16:22:15 [id number] [facility] [address] [place] [address] 12/18/2021 00:00:00 12/18/2021 17:21:40 [id number] [facility] [address] [place] [address] 05/01/2022 00:00:00 05/01/2022 13:38:06 [id number] [facility] [address] [place] [address] 07/05/2022 00:00:00 07/05/2022 10:21:54 [id number] [facility] [address] [place] [address] 10/09/2022 00:00:00 10/09/2022 13:45:15 [id number] Tia Braun MD [facility] [address] [place] [address] 05/21/2023 11:15:38 05/21/2023 12:03:43 Uncontrolled type 2 diabetes mellitus 944640637 E11.65 a1c of 8.3% down from 8.6%- patient encouraged to test sugars twice daily before meals. Advised to hold his glimepirid e before meals if premeal sugars under 110 mg/dL and only take full dose if over 150 mg/dL to avoid hypoglycem ia- never take at bedtime as this will drop his glucose low overnight- he and voiced understand ing. Continue tresiba 24 units at bedtime along with trulicity, jardiance and metformin for insulin sensitizat ion and portion control. He is tolerating therapy well. Discussed carb counting and how to read food labels. Recommende d patient to utilize the diabetesfo [employer]Executive Caddie from the ADA website to help with food preparatio n as this presents ideal carb content per meal so this will make carb counting much easier for patient. Recommende d he incorporat e natural insulin law firm consultant s such as pears, apples, cinnamon, bhupendra and sweet potatoes to help mobilize his endogenous insulin. Recommende d up to 150 minutes of moderate level activity/e xercise weekly. refer to endocrinol ogy per patient request. Hypothyroidism 51503569 E03.9 FT4 in range- continue synthroid 100 mcg daily. Dyslipidemia 486936529 E 78.5 Continue statin therapy as LDL in range. Spent up to 25 minutes preparing to see the patient (eg, review of tests), obtaining and/or reviewing separately obtained history, performing a medically appropriat e examinatio n and evaluation , counseling and educating the patient, ordering medication s, tests, along with documentin g clinical informatio n in the electronic health record, katheen tly interpreti ng results and communicat ing results to the patient. Patient can be followed by PCP - she/he is aware of my resignatio n and last day of June 14. If needed his/her PCP can refer patient to another endocrinol ogist in the area. All questions /concerns answered and refills necessary at visit today. Health Concerns Section Related Observation LastModified by Organization Detai ls LastModified Time None Recorded Concern Status LastModified by Organization Details LastModified Time None Recorded Advance Directives Directive None Recorded Payers Encounter Date Sequence Insurance Name Policy Number Policy Frazier Covered Member ID Frazier Member ID Guarantor Name 05/21/2023 1 [place] Ced Mccracken [id number] [place] 05/21/2023 2 [employer] - FOR LIFE (MEDICARE SUPPLEMENT) Ced Gan Kaykay [id number] Ced Mccracken Notes Date Note Type Note Provider Name and Address Organization Details Recorded Time 05/21/2023 text/html 72 yo male comes in for follow up in management of uncontrolled type 2 DM (A1C of 8.3% down from 8.6%), dyslipidemia. last seen in Oct at that time we had patient continue trulicity 3 mg once weekly along with tresiba 24 to 25 units at bedtime and he is aware to increase or decrease by 2 units to maintain fasting glucose 90-130 mg/dL.Continued on metformin and jardiance as patient tolerating well. sugars running 82 mg/dL up to 170 mg/dLhe is only testing fasting glucose and not predinner or postmeal sugars. patient does take synthroid and feeling good on current dose. Weight stable overall- he has lost over 60 pounds in the past 5-6 years. he is tolerating statin therapy well and LDL in range. labs from 05/07/23:113/148/29/61a1c 8.3%TSH of 2.64 uIU/mlFT4 of 1.0 ng/dLFT3 of 3.5 pg/mLB12 560 pg/mLH/H normalmicroalbumin 12 ug/mgglucose 162 mg/dLCr normalLFT normal Tia Braun MD [address] [facility], [address], [place], [address], [facility] [employer] 05/21/2023 12:27:05
--- OUTSIDE RECORDS SUMMARY | 2024-11-12 00:13 | XMS_ITS | CONTINUITY OF CARE DOCUMENT ---
Author Name duong jose ryara Address Unknown Organization [facility] Address [id number] [place] [address] [address] [place] [address] Phone [phone] Care Team Providers Care Ditch Worker Name Role Phone Mary MUNOZ, Richardson Unavailable [phone] Robert MUNOZ, Jatinder Unavailable [phone] TAMERA MUNOZ, JENNI HOLLEY Unavailable PROBLEMS Condition Status Date Provider Notes Sleep apnea -Dr Genao to follow active Alicia alvarez RN Hypothyroidism active Alicia Michelle RN Hyperlipidemia active Alicia Michelle RN HTN active Alicia Michelle RN CAD s/p stents x3 active Alicia Michelle RN Syncope active Alicia Michelle RN Physical exam completed - Huy Carver DO Overweight active Alicia Michelle RN Status Post Pacemaker, permanent active Huy Carver DO Status Post Medtronic (MRI Safe) REVEAL/LinQ active Huy Carver DO Family History of Hyperlipidemia: completed - Huy Carver DO ENCOUNTERS Date Type Provider Location Encounter Diag nosis - In-person encounter Office Visit Huy Carver DO [facility] Overweight - In-person encounter Office Visit Huy Carver DO [facility] Status Post Medtronic (MRI Safe) REVEAL/LinQStatus Post Pacemaker, permanent - In-person encounter Office Visit Huy Carver DO [facility] Family History of Hyperlipidemia:Phys ical examStatus Post Pacemaker, permanent - In-person encounter Office Visit Huy [facility] Office - In-person encounter Office Visit Huy Carver DO [facility] VITAL SIGNS Date Observation Value Provider Body Mass Index (Ratio) 32.73 kg/m2 Luciano Connors blood pressure, diastolic 62 mm[Hg] Er ica MilesPatricio blood pressure, systolic 140 mm[Hg] Eliz ca MilesPatricio oxygen saturation, oximetry 96 % Shannan AquinoPatricio pulse rate 75 /min Shannan Aquino Patricio weight E&M 209 [lb_av] Shannan Topetee height E&M 67 [in_i] Shannan Topetee Body Mass Index (Ratio) 32.42 kg/m2 Johnson Bueno oxygen saturation, oximetry 96 % Chastity Sonia pulse rate 76 /min Chastity Sonia blood pressure, diastolic 70 mm[Hg] Ch astity Sonia blood pressure, systolic 120 mm[Hg] Candis stity Sonia respiratory rate E&M 16 /min Chastit y Sonia weight E&M 207 [lb_av] Chastity Sonia height E&M 67 [in_i] Chastity Sonia Body Mass Index (Ratio) 32.89 kg/m2 Justus Sarmiento blood pressure, diastolic 64 mm[Hg] Ma joseha O'Wu blood pressure, systolic 122 mm[Hg] Maty walker O'Wu oxygen saturation, oximetry 97 % Carmen O'Wu respiratory rate E&M 16 /min Carmen O'Wu pulse rate 77 /min Carmen O'Wu weight E&M 210 [lb_av] Carmen O'Wu height E&M 67 [in_i] Carmen Aponte Body Mass Index (Ratio) 31.79 kg/m2 Denn is Wen NGUYỄN blood pressure, diastolic 58 mm[Hg] Julian Tucker blood pressure, systolic 120 mm[Hg] Maty Tucker pulse rate 72 /min Gloria Tucker oxygen saturation, oximetry 98 % Gloria Tucker blood pressure, resting Yes Johnson Tucker weight E&M 203 [lb_av] Gloria Tucker respiratory rate E&M 17 /min Gloria Tucker height E&M 67 [in_i] Gloria Tucker Body Mass Index (Ratio) 32.73 kg/m2 Denn is Wen NGUYỄN respiratory rate E&M 20 /min Maegan Ansari oxygen saturation, oximetry 97 % Maegan Ansari pulse rate 71 /min Maegan Ansari blood pressure, diastolic 60 mm[Hg] Chandra Ansari blood pressure, systolic 115 mm[Hg] Brandon Ansari blood pressure, cuff size regular Chandra Ansari height E&M 67 [in_i] Maegan Ansari weight E&M 209 [lb_av] Maegan Ansari ALLERGIES Allergy Name Onset Date Reaction Criticality Status ENALAPRIL unknown Low Criticality active LIPITOR unknown Low Criticality active DICLOFENAC unknown Low Criticality active ATROPINE unknown Low Criticality active RESULTS Date Observation Value Provider Reference Range Interpretation Location 3 anion gap, serum 11.6 [facility] - 3 albumin/globulin ratio, serum 1.6 g/dL [facility] 1.1 - 2.5 3 globulin, serum 2.8 [facility] 2.3 - 3.8 3 urea nitrogen/creatinine ratio, serum 17.5 [facility] - 3 Estimated Glomerular Filtration Rate (calc) 102.8 (?) [facility] 59.0 - 3 chloride, serum 100.4 mmol/L [facility] 98.0 - 107.0 3 potassium, serum 4.5 mmol/L [facility] 3.5 - 5.1 3 sodium, serum 143.0 mmol/L [facility] 136.0 - 145.0 3 creatinine, serum 0.8 mg/dL [facility] 0.7 - 1.2 3 carbon dioxide, venous blood 31.0 mmol/L [facility] 23.0 - 31.0 3 albumin, serum 4.6 g/dL [facility] 3.5 - 5.2 3 calcium, serum 9.7 mg/dL [facility] 8.6 - 10.2 3 aspartate aminotransferase (SGOT), serum 9.0 1/L [facility] 0.0 - 40.0 3 alkaline phosphatase, serum 54.0 1/L [facility] 40.0 - 130.0 3 alanine aminotransferase (SGPT), serum 8.0 1/L [facility] 0.0 - 41.0 3 protein, total, serum 7.4 g/dL [facility] 6.6 - 8.7 3 bilirubin, serum, total 0.3 mg/dL [facility] 0.0 - 1.2 3 urea nitrogen, blood 14.0 mg/dL [facility] 8.0 - 23.0 3 blood glucose, random 205.0 mg/dL [facility] 74.0 - 99.0 High 3 red blood cell distribution width, size density 43.6 fL [facility] - 3 immature granulocytes, percentage of total cells, blood 0.3 % [facility] nucleated red blood cells as percent of blood leukocytes 0.0 % [facility] 3 red blood cell (erythrocyte) count, per high power field 0.0 10*3/UL [facility] - 3 eosinophils as percent of blood leukocytes 1.7 % [facility] - 3 neutrophils as percent of blood leukocytes 53.3 % [facility] - 3 Absolute Neutrophils 3.5 CELLS/UL [facility] 1.5 - 7.8 3 basophils as percent of blood leukocytes 0.5 % [facility] - 3 Absolute Basophils 0.0 CELLS/UL [facility] 0.0 - 0.2 3 monocytes as percent of blood leukocytes 11.5 % [facility] - 3 Absolute Monocytes 0.8 CELLS/UL [facility] 0.2 - 1.0 3 lymphocytes as percent of blood leukocytes 32.7 % [facility] - 3 Absolute Lymphocytes 2.2 CELLS/UL [facility] 0.9 - 3.9 3 mean platelet volume 8.8 (?) [facility] - 3 platelet count 242.0 THOUSAND/ UL [facility] 100.0 - 400.0 3 mean corpuscular hemoglobin concentration, RBC 32.7 G/DL [facility] 31.0 - 38.0 3 mean corpuscular hemoglobin, RBC 27.8 pg [facility] 25.0 - 35.0 3 mean corpuscular volume, RBC 85.0 fL [facility] 75.0 - 100.0 3 hematocrit, blood 44.3 % [facility] 35.0 - 55.0 3 hemoglobin, blood 14.5 g/dL [facility] 11.5 - 16.5 3 erythrocyte count, whole blood 5.2 MILLION/U L [facility] 3.5 - 5.5 3 prothrombin time (patient) 10.4 s [facility] 9.0 - 11.5 3 international normalized ratio (INR) 0.9 [facility] 0.9 - 1.1 HISTORY OF MEDICATION USE Medication Status Instructions Dates Provider Indications Com ments TRULICITY 0.75 MG/0.5ML SUBCUTANEOUS SOLUTION PEN-INJECTOR active once weekly 8 Carmen O'Wu OMEPRAZOLE active once daily 8 Carmen O'Wu INVOKANA 100 MG ORAL TABLET completed 1 tab daily - 8 Carmen O'Wu VITAMIN C 500 MG ORAL TABLET active one tab daily 9 Alicia Miguel Angel LUNDBERG VITAMIN E 200 UNIT ORAL CAPSULE active one cap daily 9 Alicia Miguel Angel LUNDBERG VITAMIN D 1000 UNIT ORAL TABLET completed one tab daily 9 - 8 Carmen Aponte METOPROLOL SUCCINATE ER 25 MG ORAL TABLET EXTENDED RELEASE 24 HOUR active 1/2 tab daily 9 Alicia Miguel Angel LUNDBERG TELMISARTAN-HCTZ 80-25 MG ORAL TABLET active 0.5 tab daily 9 Maegan Ansari SIMVASTATIN 20 MG ORAL TABLET active one tab daily 9 Alicia Miguel Angel LUNDBERG POTASSIUM CHLORIDE ANATOLY ER 10 MEQ ORAL TABLET EXTENDED RELEASE active one per day 9 Alicia Miguel Angel LUNDBERG NEXIUM 40 MG ORAL CAPSULE DELAYED RELEASE completed one cap daily 9 - 8 Camren Aponte MULTIVITAMINS ORAL CAPSULE completed one per day 9 - 2 Maegan Ansari METHOTREXATE 2.5 MG ORAL TABLET completed weekly as directed 9 - 0 Yenni Scott METFORMIN HCL 500 MG ORAL TABLET completed 2 tabs in the am and 1 tab in the pm - 8 Carmen Aponte SYNTHROID 100 MCG ORAL TABLET active one tab daily 9 Alicia Miguel Angel LUNDBERG JANUVIA 100 MG ORAL TABLET active one tab daily 9 Alicia Miguel Angel LUNDBERG GLIMEPIRIDE 4 MG ORAL TABLET active one tab twice a day 9 Alicia Miguel Angel LUNDBERG FINASTERIDE 5 MG ORAL TABLET active one tab daily 9 Alicia Miguel Angel LUNDBERG FOLIC ACID 1 MG ORAL TABLET completed one tab daily 9 - 0 Yenni Scott ENBREL 50 MG/ML SUBCUTANEOUS SOLUTION PREFILLED SYRINGE active weekly as directed 9 Alicia Michelle RN ASPIRIN EC 81 MG ORAL TABLET DELAYED RELEASE active one tab daily 9 Alicia Michelle RN NORVASC 5 MG ORAL TABLET active 0.5 tab daily 9 Maegan Ansari SOCIAL HISTORY Date Observation Value Provider smoking, year quit 1982 Shannan Perez cigarette use yes Shannangabi Segura smoking status Former smoker Shannan De La Torre jose-Patricio social history reviewed E&M revi ewed - no changes required Shannan Villegas social history reviewed E&M revi ewed - no changes required Huy Carver social history E&M S moking History: David orellana is a former smoker. Huy Carver DO smoking, year quit 1982 Yenni Sonia cigarette use yes Chastity Sonia smoking status Former smoker Yenni Jay ue smoking, year quit 1982 Jt Sarmiento cigarette use yes Jt kent social history reviewed E&M revi ewed - no changes required Huy Alatorrecock social history E&M Smoking Histo ry: David orellana is a former smoker. Huy Carver DO smoking status Former smoker Carmen duran number of grandchildren uHy [place]on O Huycarmelo Alatorredilshad NGUYỄN social history reviewed E&M revi ewed - no changes required Huycarmelo Alatorrecock social history E&M S moking History: David orellana is a former smoker. Huy Carver DO smoking status Former smoker Gloria Garrett social history E&M S moking History: David orellana is a former smoker. Huy Carver DO social history reviewed E&M revi ewed - no changes required Huy Carver DO smoking, year quit 1982 Maegan parker cigarette use yes Maegan Ansari smoking status Former smoker Maegan Bowserwil webber FUNCTIONAL STATUS Date Observation Value Provider HRA, CV Assess/Plan, Angina (inactive) Management Plan continue current therapy Huy Carver DO HRA, CV Assess/Plan, Angina (inactive) Management Plan continue current therapy Huy Carver DO HRA, CV Assess/Plan, Angina (inactive) Management Plan continue current therapy Huy Carver DO HRA, CV Assess/Plan, Angina (inactive) Management Plan continue current therapy Huy Carver DO FAMILY HISTORY Family Member Condition Full Brother Family History of Co ronary Artery Disease: Full Brother Family History of Hy perlipidemia: Full Brother Family History of Co ronary Artery Disease: Father Family History of Co ronary Artery Disease: INSURANCE PROVIDERS Payer name Policy type / Coverage type Aníbal red [place] Medicare [id number] VENESSA BARGER [id number] ADVANCE DIRECTIVES Name Date 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 Likely vasovagal. H ad 3 syncopal spells 1982 with documented asystole and CPR. P PM at that time and no recurrent syncope until October 2016 while had the flu. P robably vasovagal syncope, but has Hx of CAD with prior stents, so arrhythmia possible PPM EOL since 2010 RUQ implant Reveal loop recorder with no arrhythmias documented. Some pauses noted which are related to undersensing. Has had no recurrent syncope since. Once ILR reaches EOS, will not be replaced & pt has opted to leaving it in place. Alicia Michelle RN Electrophysiology:Un clear etiology. Likely vasovagal. H ad 3 syncopal spells 1982 with documented asystole and CPR. P PM at that time and no recurrent syncope until October 2016 while had the flu. P robably vasovagal syncope, but has Hx of CAD with prior stents, so arrhythmia possible PPM EOL since 2010 RUQ implant Reveal loop recorder with no arrhythmias documented. Some pauses noted which are related to undersensing. Has had no recurrent syncope since. Huy Carver DO Electrophysiology:Or iginal PPM in 1982 due to asystole and syncope. Replaced in 1988. N o f/u and pacemaker reached EOL in 2010. No recurring syncope. L ikely implanted on the basis of vasovagal syncope. E xisting pacemaker is abdominal implant on the right side. Huy Carver DO Electrophysiology:No arrhythmia noted. Huy Carver DO Electrophysiology: B P today: 122/64 P rior BP: 120/58 (03/28/2017) Labs Reviewed: C reat: 0.8 (11/22/2016) [facility] Electrophysiology: Claudia frost w/ [facility] Electrophysiology:un clear etiolgy. Likely vasovagal. h ad 3 syncopal spells 1982 with documented asystole and CPR. P PM at that time and no recurrent syncope until October 2016 while had the flu. probably vasovagal syncope, but has hs of CAD with prior stents, so arrhythmia possible PPM EOL since 2010 RUQ implant Reveal loop recorder with no arrhythmias documented. Has had no recurrent syncope since. Huy [facility] Electrophysiology: B P today: 120/58 P rior BP: 115/60 (11/22/2016) Labs Reviewed: C reat: 0.8 (11/22/2016) [facility] Electrophysiology:Follows w/ Gee downs [facility] Electrophysiology: u nclear etiolgy. h ad 3 syncopal spells 1982 with documented asystole and CPR. P PM at that time and no recurrent syncope until October 2016 while had the flu. p robably vasovagal syncope, but has hs of CAD with prior stents, so arrhythmia possible PPM EOL since 2010 RUQ implant Reveal loop recorder with no arrhythmias documented. Has had no recurrent syncope since. Huy [facility] EP: B P today: 115/60 [facility] EP:neg stress test with normal L [facility] EP:unclear etiolgy. h ad 3 syncopal spells 1982 with documented asystole and CPR. P PM at that time and no recurrent syncope until 3 weeks ago while had the flu. p robably vasovagal syncope, but has hs of CAD with prior stents, so arrhythmia possible suggest Reveal ILR. he agrees. PPM EOL since 2010 RUQ implant Huy Carver Date Name CBC (INCLUDES DIFF/P LT) PROTHROMBIN TIME WIT H INR COMPREHENSIVE METABO LIC PANEL W/EGFR HISTORY OF PROCEDURES Procedure Date Procedure Name Provider Procedure Notes S tatus EKG Huy Moore DO completed Loop Recorder Interrogation, Remote Huy Moore DO INTERROGATION EVALUATION REMOTE </30 D ILR SYS completed ICM Interrogation, Remote (Tech) Huy Moore DO INTERROGATION EVAL REMOTE </30 D TECH REVIEW completed Loop Recorder Interrogation, Remote Huy Moore DO INTERROGATION EVALUATION REMOTE </30 D ILR SYS completed ICM Interrogation, Remote (Tech) Huy Moore DO INTERROGATION EVAL REMOTE </30 D TECH REVIEW completed Loop Recorder Interrogation, Remote Huy Moore DO INTERROGATION EVALUATION REMOTE </30 D ILR SYS completed ICM Interrogation, Remote (Tech) Huy Moore DO INTERROGATION EVAL REMOTE </30 D TECH REVIEW completed Loop Recorder Interrogation, Remote Huy Moore DO INTERROGATION EVALUATION REMOTE </30 D ILR SYS completed ICM Interrogation, Remote (Tech) Huy Moore DO INTERROGATION EVAL REMOTE </30 D TECH REVIEW completed Loop Recorder Interrogation, Remote Huy Moore DO INTERROGATION EVALUATION REMOTE </30 D ILR SYS completed ICM Interrogation, Remote (Tech) Huy Moore DO INTERROGATION EVAL REMOTE </30 D TECH REVIEW completed Loop Recorder Interrogation, Remote Huy Moore DO INTERROGATION EVALUATION REMOTE </30 D ILR SYS completed ICM Interrogation, Remote (Tech) Huy Moore DO INTERROGATION EVAL REMOTE </30 D TECH REVIEW completed Loop Recorder Interrogation, Remote Huy Moore DO INTERROGATION EVALUATION REMOTE </30 D ILR SYS completed ICM Interrogation, Remote (Tech) Huy Moore DO INTERROGATION EVAL REMOTE </30 D TECH REVIEW completed Loop Recorder Interrogation, Remote Huy Moore DO INTERROGATION EVALUATION REMOTE </30 D ILR SYS completed ICM Interrogation, Remote (Tech) Huy Moore DO INTERROGATION EVAL REMOTE </30 D TECH REVIEW completed Loop Recorder Interrogation, Remote Huy Moore DO INTERROGATION EVALUATION REMOTE </30 D ILR SYS completed ICM Interrogation, Remote (Tech) Huy Moore DO INTERROGATION EVAL REMOTE </30 D TECH REVIEW completed Schedule Followup Huy Glascoc k DO in 1 yr completed EKG Huy Moore DO completed Loop Recorder Interrogation, Remote Huy Moore DO INTERROGATION EVALUATION REMOTE </30 D ILR SYS completed ICM Interrogation, Remote (Tech) Huy Moore DO INTERROGATION EVAL REMOTE </30 D TECH REVIEW completed Loop Recorder Interrogation, Remote Huy Moore DO INTERROGATION EVALUATION REMOTE </30 D ILR SYS completed ICM Interrogation, Remote (Tech) Huy Moore DO INTERROGATION EVAL REMOTE </30 D TECH REVIEW completed Loop Recorder Interrogation, Remote Huy Moore DO INTERROGATION EVALUATION REMOTE </30 D ILR SYS completed ICM Interrogation, Remote (Tech) Huy Moore DO INTERROGATION EVAL REMOTE </30 D TECH REVIEW completed Loop Recorder Interrogation, Remote Huy Moore DO INTERROGATION EVALUATION REMOTE </30 D ILR SYS completed ICM Interrogation, Remote (Tech) Huy Moore DO INTERROGATION EVAL REMOTE </30 D TECH REVIEW completed Loop Recorder Interrogation, Remote Huy Moore DO INTERROGATION EVALUATION REMOTE </30 D ILR SYS completed ICM Interrogation, Remote (Tech) Huy Moore DO INTERROGATION EVAL REMOTE </30 D TECH REVIEW completed Loop Recorder Interrogation, Remote Huy Moore DO INTERROGATION EVALUATION REMOTE </30 D ILR SYS completed ICM Interrogation, Remote (Tech) Huy Moore DO INTERROGATION EVAL REMOTE </30 D TECH REVIEW completed Loop Recorder Interrogation, Remote Huy Moore DO INTERROGATION EVALUATION REMOTE </30 D ILR SYS completed ICM Interrogation, Remote (Tech) Huy Moore DO INTERROGATION EVAL REMOTE </30 D TECH REVIEW completed Loop Recorder Interrogation, Remote Huy Moore DO INTERROGATION EVALUATION REMOTE </30 D ILR SYS completed ICM Interrogation, Remote (Tech) Huy Moore DO INTERROGATION EVAL REMOTE </30 D TECH REVIEW completed Loop Recorder Interrogation, Remote Huy Moore DO INTERROGATION EVALUATION REMOTE </30 D ILR SYS completed ICM Interrogation, Remote (Tech) Huy Moore DO INTERROGATION EVAL REMOTE </30 D TECH REVIEW completed Loop Recorder Interrogation, Remote Huy Moore DO INTERROGATION EVALUATION REMOTE </30 D ILR SYS completed ICM Interrogation, Remote (Tech) Huy Moore DO INTERROGATION EVAL REMOTE </30 D TECH REVIEW completed EKG Huy Moore DO completed SNOMED-CT: [id number] Current Medications Documented Huy Moore DO completed Loop Recorder Interrogation, Remote Huy Moore DO INTERROGATION EVALUATION REMOTE </30 D ILR SYS completed ICM Interrogation, Remote (Tech) Huy Moore DO INTERROGATION EVAL REMOTE </30 D TECH REVIEW completed Loop Recorder Interrogation, Remote Huy Moore DO INTERROGATION EVALUATION REMOTE </30 D ILR SYS completed ICM Interrogation, Remote (Tech) Huy Moore DO INTERROGATION EVAL REMOTE </30 D TECH REVIEW completed Loop Recorder Interrogation, Remote Huy Moore DO INTERROGATION EVALUATION REMOTE </30 D ILR SYS completed ICM Interrogation, Remote (Tech) Huy Moore DO INTERROGATION EVAL REMOTE </30 D TECH REVIEW completed Loop Recorder Interrogation, Remote Huy Moore DO INTERROGATION EVALUATION REMOTE </30 D ILR SYS completed ICM Interrogation, Remote (Tech) Uhy Moore DO INTERROGATION EVAL REMOTE </30 D TECH REVIEW completed EKG Huy Moore DO completed SNOMED-CT: [id number] Current Medications Documented Huy Moore DO completed Loop Recorder Interrogation, Remote Huy Moore DO INTERROGATION EVALUATION REMOTE </30 D ILR SYS completed ICM Interrogation, Remote (Tech) Huy Moore DO INTERROGATION EVAL REMOTE </30 D TECH REVIEW completed Loop Recorder Interrogation, Remote Huy Moore DO INTERROGATION EVALUATION REMOTE </30 D ILR SYS completed ICM Interrogation, Remote (Tech) Huy Moore DO INTERROGATION EVAL REMOTE </30 D TECH REVIEW completed Loop Recorder Interrogation, Remote Huy Moore DO INTERROGATION EVALUATION REMOTE </30 D ILR SYS completed ICM Interrogation, Remote (Tech) Huy Moore DO INTERROGATION EVAL REMOTE </30 D TECH REVIEW completed Loop Recorder Interrogation, Remote Huy Moore DO INTERROGATION EVALUATION REMOTE </30 D ILR SYS completed ICM Interrogation, Remote (Tech) Huy Moore DO INTERROGATION EVAL REMOTE </30 D TECH REVIEW completed EKG Huy Moore DO completed SNOMED-CT: [id number] Current Medications Documented Huy Moore DO completed
--- OUTSIDE RECORDS SUMMARY | 2024-11-12 00:13 | XMS_ITS | Referral Summary ---
Author Organization [facility] Address [address] [place] [address] Care Team Providers Care Manager Specialty Name Role Phone Maryann Jiménez DO Primary Care Provider [phone] Source Comments [facility],non-owned Affiliates and Associated Physician Practices is amultiple site organization consisting of ambulatory clinics and hospital sitesin [place], [place], [place] and [place]. This disclosure is being madepursuant to the Care Everywhere program and may not contain all information available regarding this patient. Last updated 18.[facility] Allergies Active Allergy Reactions Criticality Noted Date Comments Atropine Other Medium 01/02/2010 Bradycardia Codeine Nausea and/or Vomiting Medium 04/12/2009 Enalapril Other Low Cough Medications * Be aware that medications may not be up to date on this document. Alwaysverify current medications with the patient. Medication Sig Dispensed Refills Start Date End Date Status finasteride (PROSCAR) 5 MG tablet Take 5 mg by mouth daily. Active aspirin 81 MG tablet Take 81 mg by mouth daily. Active glimepiride (AMARYL) 4 MG tablet Take 4 mg by mouth 2 times daily. 0100 and 1300 Active levothyroxine (SYNTHROID) 100 MCG tablet Take 100 mcg by mouth daily before breakfast. Active dulaglutide (TRULICITY) 0.75 MG/0.5ML injection Inject 0.75 mg subcutaneously Active potassium chloride (KLOR-CON M20) 20 MEQ tablet Take 10 mEq by mouth 05/26/2017 Acti ve omeprazole (PRILOSEC) 40 MG capsule Take 40 mg by mouth 07/08/2017 Activ e simvastatin (ZOCOR) 20 MG tablet Take 20 mg by mouth Activ e SITagliptin (JANUVIA) 100 MG tablet Take 100 mg by mouth 04/29/2017 Acti ve empagliflozin (JARDIANCE) 25 MG tablet Take 25 mg by mouth 04/09/2017 Activ e ascorbic acid (VITAMIN C) 125 MG TABS half tablet Take by mouth once daily Active VITAMIN E PO Take 1 tablet by mouth once daily Active metoprolol succinate XL 24hr (TOPROL XL) 25 MG tablet Take 12.5 mg by mouth once daily Active Alcohol Swabs (EASY TOUCH ALCOHOL PREP MEDIUM) 70 % 05/15/2019 Active telmisartan-hydroC HLOROthiazide (MICARDIS HCT) 40-12.5 MG tablet Take 1 tablet by mouth once daily 12/09/2020 Active amLODIPine (NORVASC) 2.5 MG tablet Take 2.5 mg by mouth once daily 12/09/2020 Active sildenafil (VIAGRA) 25 MG tablet Take 1 tablet by mouth once daily as needed 06/06/2020 Active vitamin D, cholecalciferol, 50 MCG (2000 UT) tablet Take 2,000 Units by mouth once daily Active ENBREL SURECLICK 50 MG/ML auto-injector penIndications:Pso riatic arthritis (HCC) Inject 50 (fifty) mg subcutaneously every 7 days 12 Pen 02/03/2021 Active Active Problems Problem Noted Date Diagnosed Date Psoriatic arthritis 02/23/2018 DISH (diffuse idiopathic skeletal hyperostosis) 02/23/2018 HTN (hypertension) 06/13/2009 Diabetes mellitus 06/13/2009 Pacemaker 04/12/2009 Overview (04/12/2009): Photos to Photostronic Immunizations Name Administration Dates Next Due INFLUENZA VACCINE, TRIV. 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 Inhaled Oxygen Concentration - - Weight 90.7 kg (200 lb) 12/20/2020 11:23 AM CDT Height 170.2 cm (5' 7 ) 12/20/2020 11:23 AM CDT Body Mass Index 31.32 12/20/2020 11:23 AM CDT Plan of Treatment Not on file Procedures Procedure Name Priority Date/Time Associated Diagnosis Comments COMPREHENSIVE METABOLIC PANEL Routine 12/21/2020 11:20 AM CDT Psoriatic arthritis (HCC) Encounter for long-term (current) use of high-risk medication DISH (diffuse idiopathic skeletal hyperostosis) from Last 3 Months or Most Recently Relevant to Health Maintenance Results * (ABNORMAL) COMPREHENSIVE METABOLIC PANEL (12/21/2020 11:20 AM CDT) Glucose 224(H) 65 - 99 mg/dL [facility] [...] approximately 13% higher for people identified as -Prydeinig. eGFR by MDRD 82 > OR = [...] 46 U/L [facility] Comment: Test Performed at: [facility] [address] [place] [address] IVY DERAS DO,MPH Blood BLOOD SPECIMEN / Unknown 12/21/2020 11:20 AM CDT 12/21/2020 11:21 AM CDT Nico Jones MD LAB - CHEMISTRY JORGE A SAHNI Performing Organization Address City/State/[facility] Co de Phone Number [facility] [address] [place] [address] from Last 3 Months or Most Recently Relevant to Health Maintenance Care Teams Manager Specialty Relationship Specialty Start Date End Date Maryann Jiménez DO [address] [place] [address] PCP - General 09/07/22
--- OUTSIDE RECORDS SUMMARY | 2024-11-12 00:13 | XMS_ITS | Clinical Summary ---
Author Organization [facility] Address [address] [place] [address] Care Team Providers Care Electrical Intern Name Role Phone Maryann Jiménez DO Primary Care Provider [phone]- [phone] Source Comments [facility],non-owned Affiliates and Associated Physician Practices is amultiple site organization consisting of ambulatory clinics and hospital sitesin [place], [place], [place] and [place]. This disclosure is being madepursuant to the Care Everywhere program and may not contain all information available regarding this patient. Last updated 18.[facility] Allergies Active Allergy Reactions Criticality Noted Date [...] Diabetes mellitus 06/13/2009 Pacemaker 04/12/2009 Overview (04/12/2009): [employer] Immunizations Name Administration Dates Next Due INFLUENZA [...] CDT Oxygen Saturation 95% 09/28/2014 12:31 PM DIGESTER HAND Inhaled Oxygen Concentration - - Weight 90.7 kg (200 lb) 12/20/2020 11:23 AM CDT Height 170.2 cm (5' 7 ) 12/20/2020 11:23 AM CDT Body Mass Index 31.32 12/20/2020 11:23 AM CDT Plan of Treatment Health Maintenance Due Date Last Done Comments COLOGUARD (AGES 45-75) - COLON CA SCREENING 1950 COLON MONITORING 1950 COLONOSCOPY - COLON CA SCREENING 1950 CT COLONOGRAPHY - COLON CA SCREENING 1950 Colorectal Cancer Screening 1950 FIT - COLON CA SCREENING 1950 FLEX SIG - COLON CA SCREENING 1950 MEDICARE AWV 12 MONTHS 1950 HEPATITIS C SCREENING 08/01/1968 DTAP/TDAP/TD VACCINES (1 - Tdap) 1969 ZOSTER VACCINE (1 of 2) 2000 Respiratory Syncytial Virus (RSV) Vaccine Pt: or over 60 yrs (1 - Risk 60-74 years 1-dose series) 2010 PNEUMOCOCCAL VACCINE 50+ (2 of 2 - PPSV23) 07/20/2016 05/25/2016 DIABETES RETINOPATHY SCREENING 01/07/2018 DIABETES-FOOT EXAM WITH MONOFILAMENT 01/07/2018 DIABETES-HGB A1C 01/07/2018 DIABETES-SERUM CREATININE 12/21/20212020, 04/19/2020, 12/16/2018, Additional history exists COVID-19 VACCINE ( - 2023- season) 2024 INFLUENZA VACCINE (#1) 2024 05/25/2016 DEPRESSION SCREENING 09/02/2024 DIABETES - URINE PROTEIN SCREENING 09/02/2024 MEDICARE AWV CALENDAR YEAR 2024 HEPATITIS B VACCINE Aged Out No longe r eligible based on patient's age to complete this topic HIB VACCINE Aged Out No longer eligi ble based on patient's age to complete this topic HPV VACCINE Aged Out No longer eligi ble based on patient's age to complete this topic MENINGOCOCCAL (Group B) VACCINE SHARED DECISION-MAKING Aged Out No longer eligible based on patient's age to complete this topic MENINGOCOCCAL GROUPS A/C/Y/W VACCINE Aged Out No longer eligible based on patient's age to complete this topic Procedures Procedure Name Priority Date/Time Associated Diagnosis [...] approximately 13% higher for people identified as -Emirati. eGFR by MDRD 82 > OR = [...] 46 U/L [facility] Comment: Test Performed at: [facility] [address] [place] [address] IVY EDRAS DO,MPH Blood BLOOD SPECIMEN / Unknown 12/21/2020 11:20 AM CDT 12/21/2020 11:21 AM CDT Nico Jones MD LAB - CHEMISTRY JORGE A Parnell Organization Address City/State/ZIP Co de Phone Number [facility] [address] [place] [address] from Last 3 Months or Most Recently Relevant to Health Maintenance Insurance Payer Benefit Plan / Group Subscriber ID Effective Dates Phone Address Type [facility] MANAGED MEDICARE ADV [facility] RETIREES MEDICARE ADV [id number] 09/03/2024-Pres ent [address] [address] [place] [address] Medicare-Ma naged Care FOR LIFE Effective for all dates [address] [place] [address] /Candis [employer]us [facility] MANAGED MEDICARE [facility] RETIRE MEDICARE ADV [id number] 09/03/2024-Pres ent [address] [address] [place] [address] Medicare-Ma naged Care FOR LIFE Effective for all dates [address] [place] [address] /Candis mpus [facility] MANAGED MEDICARE [facility] RETIRE MEDICARE ADV [id number] 09/03/2024-Pres ent [address] [address] [place] [address] Medicare-Ma naged Care FOR LIFE Effective for all dates [address] [place] [address] /Candis mpus MEDICARE S MEDICARE PART B [id number] 09/13/2022-Pre sent [address] [address] [place] [address] Medicare [id number] 09/13/2022-Pre sent [address] [place] [address] /Candis mpus MEDICARE MEDICARE PART A AND B [id number] 08/02/2015-Pre sent [address] [place] [address] Medicare FOR LIFE [id number] 04/02/2020-Pres ent [address] [place] [address] /[employer]is [employer]us HE[employer] HEALTHLINK PPO [id number] 05/03/2012-Pres ent [address] [place] [address] PPO Care Teams Electrical Intern Relationship Specialty Start Date End Date Maryann Jiménez DO [address] [place] [id number] PCP - General 09/07/22
[2024-11-13 11:24] VITALS: BMI 32.0
[2024-11-16] VITALS (15 sets, daily range): BP systolic 142–170; BP diastolic 66–97; PULSE 58–70; RESP 10–20; TEMP 36.7; O2SAT 94–98; BMI 32.0
--- OUTSIDE RECORDS SUMMARY | 2024-11-16 00:12 | XMS_ITS | Continuity of Care Document ---
Author Name [facility] Organization [facility] Care Team Providers Care Early Head Start Teacher Name Role Phone [facility] Unavailable Unavailable Problems Combined list of problems from Department of Defense and Veterans Affairs facilities. It does not include entries that were removed or entered in error. Problem Status Onset Date Problem Type Date of Resolution Comments Source Hearing Loss, Sensorineural, Unspecified Active Condition [facility] Medications Combined list of outpatient medications from Department of [facility] and [facility] facilities.Medications provided include 1) outpatient medications from the last 15 months, and 2) patient-reported medications. Medication Details Route Status Patient Instructions Prescription Expires Prescription Number Last Dispense Date Ordering Provider Order Date Order Qty Source alcohol prep pad [100EA] See Instruct erin, [...] 100.0 Ambulat ory Pharmac y amLODIPine 2.5 mg tablet See Instruct erin, # 90 EA, 1 total refill(s ), Hard Stop Complet ed 04/23/2024 3 2023 90.0 Ambulat ory Pharmac y amLODIPine 2.5 mg tablet See Instruct erin, # 90 EA, 1 total refill(s ), [...] 4 2023 200.0 Ambulat ory Pharmac y celecoxib 100 mg capsule 100 mg, Oral, BID, # 60 EA, 1 total refill(s ), Hard Stop Oral (given by mouth) Complet ed 11/10/2024 4 2024 60.0 Ambulat ory Pharmac y cyanocobala min 1000 mcg/mL inj-vial [1mL] See Instruct ions, # 13 mL, 1 total refill(s ), Hard Stop Complet ed 02/20/2024 3 2023 13.0 Ambulat ory Pharmac y finasteride 5 mg [...] 4 2023 100.0 Ambulat ory Pharmac y glimepiride 4 mg [...] 3 2022 90.0 Ambulat ory Pharmac y levothyroxi ne [...] 4 2024 90.0 Ambulat ory Pharmac y meloxicam 7.5 mg tablet See Instruct ions, [...] 4 2024 180.0 Ambulat ory Pharmac y metFORMIN XR 500 mg/24 hour tablet See [...] 4 2024 90.0 Ambulat ory Pharmac y omeprazole DR 40 mg capsule 40 mg, [...] 3 2023 42.0 Ambulat ory Pharmac y potassium chloride 10 mEq oral capsule, extended [...] 4 2024 45.0 Ambulat ory Pharmac y Trulicity Pen 3 mg/0.5 mL [4EA=2mL] [...] PT STATES HEART RATE DROPS Ambulatory Pharmacy Procedures Combined list of: 1) Procedures from Department of Veterans Affairs facilities going back up to thelast 18 months, not all [place] non-surgical procedures are included; 2) All procedures from the Department of [facility] facilities. Procedure Procedure Type Code Date Perfomer Comments Sourc e No data available for this section Ambulatory P harmacy Assessment and Plan Combined list of future care activities from Department of [facility] and Veterans [facility] facilities (e.g., assessment and plan notes, appointments, orders, and referrals). Additional future care activities may be listed in the Plan of Care section. Result Assessment and Plan Date Source Assessment and Plan No data available for this section 11/16/2024 Ambulatory Pharmacy Functional Status Combined list of recent functional and cognitive assessments recorded at Department of Defense and Veterans [facility] ([place]).[place] Functional Avery Measurement (FIM) Scale: 1 = Total Assistance (Subject = 0% +), 2 = Maximal Assistance (Subject = 25% +), 3 = Moderate Assistance (Subject = 50% +), 4 = Minimal Assistance (Subject = 75% +), 5 = Supervision, 6 = Modified Avery (Device), 7 = Complete Avery (Timely, Safely). Assessment Date/Time Source Assessment Type Assessment Skill Assessment Score Assessment Details No data available for this section
--- OUTSIDE RECORDS SUMMARY | 2024-11-16 00:12 | XMS_ITS | Encounter Summary ---
Author Organization [facility] Address [address] [place] [address] Care Team Providers Care Load Dropper Name Role Phone Unknown, Provider Primary Care Provider Unavaila ble Chai Giraldo MD Primary Care Provider [phone] Syl Mcadams MD Primary Care Provider Maryann Jiménez DO Primary Care Provider [phone] Encounter Details Date Type Department Care Team (Late st Contact Info) Description 01/02/2010 [facility] Liliana Owens MD [address] [place] [address] Social History Tobacco Use Types [...] on filedocumented in this encounter Care Teams Load Dropper Relationship Specialty Start Date End Date Unknown, Provider PCP - General 02/27/10 01/19/14 Chai Giraldo MD [address] [place] [address] PCP - General 12/24/17 04/28/18 Syl Mcadams MD [address] [place] [address] PCP - General 04/29/18 09/06/22 Maryann Jiménez DO [address] [place] [address] PCP - General 09/07/22 documented as of this encounter
--- OUTSIDE RECORDS SUMMARY | 2024-11-16 00:12 | XMS_ITS | Encounter Summary ---
Author Organization [facility] Address [address] [place] [address] Care Team Providers Care Traffic Control Specialist Name Role Phone Syl Mcadams MD Primary Care Provider [phone] Maryann Jiménez DO Primary Care Provider [phone] Reason for Visit * Reason Onset Date Comments MEDICATION REFILL 11/08/2020 Encounter Details Date Type Department Care Team (Late st Contact Info) Description 11/08/2020 Refill [facility] [address] [place] [address], [place] [address] Nico Jones MD [address] [place] [address] [place] [address] MEDICATION REFILL Social History Tobacco [...] 50 (fifty) mg subcutaneously every 7 days 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
--- OUTSIDE RECORDS SUMMARY | 2024-11-16 00:12 | XMS_ITS | Patient Health Summary ---
Author Organization [facility] Address [address] [facility] [facility] [place] [address] Care Team Providers Care Manager Intelligence Name Role Phone Maryann Jiménez DO Primary Care Provider [phone]- [phone] Note from [facility],non-owned Affiliates and Associated Physician Practices is amultiple site organization consisting of ambulatory clinics and hospital sitesin [place], [place] and [place]. This disclosure is being madepursuant to the Care Everywhere program and may not contain all information available regarding this patient. Last updated 18.[facility] Morphy Allergies * Atropine(Other) -Medium Criticality * Codeine(Nausea [...] CDT Oxygen Saturation 95% 09/28/2014 12:31 PM CATTLE INSPECTOR Inhaled Oxygen Concentration - - Weight 90.7 [...] resultswithin the time period is included. Pathologist [facility] Reflexive Urine Culture See Below [facility] Comment: NO CULTURE INDICATED Test Performed at: [facility] [address] [address] IVY DERAS DO,MPH 12/21/2020 11:2 0 AM CDT 12/21/2020 11:21 AM CDT Nico Jones MD LAB - MICROBIOLOGY O RDERABLES [facility] [address] [place] [address] * (ABNORMAL) URINALYSIS W/MICROSCOPIC REFLEX TO CULTURE (12/21/2020 11:20 AM CDT) Only the most recent of19 resultswithin the time period is included. Color UA YELLOW YELLOW [facility] Appearance CLEAR CLEAR [facility] Specific [place]ao UA 1.044(H) 1.001 - 1.035 [facility] pH [...] SEEN /LPF [facility] Comment: Test Performed at: [facility] [place] [place] [address] IVY DERAS DO,MPH Urine URINE SPECIMEN OBTAINED BY CLEAN CATCH PROCEDURE / Unknown 12/21/2020 11:20 AM CDT 12/21/2020 11:21 AM CDT Nico Jones MD LAB - URINALYSIS ORD ERABLES Performing Organization Address [facility] Co de Phone Number [facility] [address] [place] [address] * C-REACTIVE PROTEIN (12/21/2020 11:20 AM CDT) Only the most recent of32 resultswithin the time period is included. C-Reactive Protein 5.4 <8.0 mg/L [facility] Comment: REPORT COMMENT: FASTING:YES Test Performed at: [facility] [employer] ( HLM ) [facility] [place] [address] IVY DERAS DO,MPH Blood BLOOD SPECIMEN / Unknown 12/21/2020 11:20 AM CDT 12/21/2020 11:21 AM CDT Nico Jones MD LAB - CHEMISTRY ORDE RABLES Performing Organization Address City/[facility] Co de Phone Number [facility] [address] [place] [address] * ERYTHROCYTE SEDIMENTATION RATE (12/21/2020 11:20 AM CDT) Only the most recent of36 resultswithin the time period is included. Erythrocyte Sedimentation Rate Westergren 14 < OR = 20 mm/h [facility] Comment: Test Performed at: [employer] [employer] ( H[employer] ) [facility] [place] [address] IVY DERAS DO,MPH Blood BLOOD SPECIMEN / Unknown 12/21/2020 11:20 AM CDT 12/21/2020 11:21 AM CDT Nico Jones MD LAB - HEMATOLOGY ORD ERABLES Performing Organization Address City/[facility]/ZIP Co de Phone Number [facility] [address] [place] [phone] * CBC WITH DIFFERENTIAL (12/21/2020 11:20 AM [...] 1.1 % [facility] Comment: Test Performed at: [facility] [address] [place] [address] IVY DERAS DO,MPH Blood BLOOD SPECIMEN / Unknown 12/21/2020 11:20 AM CDT 12/21/2020 11:21 AM CDT Nico Jones MD LAB - HEMATOLOGY ORD ERABLES Performing Organization Address City/[facility]/ZIP Co de Phone Number [facility] [address] [place] [phone] * (ABNORMAL) COMPREHENSIVE METABOLIC PANEL (12/21/2020 11:20 [...] approximately 13% higher for people identified as -Greenlandic. eGFR by MDRD 82 > OR = [...] 46 U/L [facility] Comment: Test Performed at: [facility] [address] [place] [address] IVY DERAS DO,MPH Blood BLOOD SPECIMEN / Unknown 12/21/2020 11:20 AM CDT 12/21/2020 11:21 AM CDT Nico Jones MD LAB - CHEMISTRY JORGE A SAHNI [facility] Organization Address City/State/ZIP Co de Phone Number [facility] [address] [place] [address] * (ABNORMAL) URINALYSIS W/MICROSCOPIC NO CULTURE (04/19/2020 11:05 AM [facility]) Only the most recent of8 resultswithin the time period is included. Color UA Straw Straw, Yellow, Colorless 04/19/2020 11:38 AM [facility] Clarity UA Clear Clear, Slt Cloudy 04/19/2020 11:38 AM [facility] Specific [place] UA 1.031(H) 1.005 - 1.030 04/19/2020 11:38 AM [facility] pH UA 5.0 5.0 - 8.0 pH 04/19/2020 11:38 AM [facility] Protein UA Negative Negative mg/dL 04/19/2020 11:38 AM [facility] Glucose UA 3+(A) Negative mg/dL 04/19/2020 11:38 AM [facility] Ketone UA Negative Negative mg/dL 04/19/2020 11:38 AM [facility] Bilirubin UA Negative Negative mg/dL 04/19/2020 11:38 AM [facility] Blood UA Negative Negative 04/19/2020 11:38 AM [facility] Nitrite UA Negative Negative 04/19/2020 11:38 AM [facility] Leukocyte Esterase Negative Negative 04/19/2020 11:38 AM [facility] Urobilinogen UA Negative Negative mg/dL 04/19/2020 11:38 AM [facility] RBC UA 0-2 None Seen, 0-2, 3-5 /HPF 04/19/2020 11:38 AM [facility] WBC UA None Seen None Seen, 0-5 /HPF 04/19/2020 11:38 AM [facility] Squamous Epithelial Cells UA None Seen None Seen, 0-2 /HPF 04/19/2020 11:38 AM [facility] Urine URINE SPECIMEN OBTAINED BY CLEAN CATCH PROCEDURE / Unknown Collection / Unknown 04/19/2020 11:05 AM CDT 04/19/2020 11:24 AM [facility] - 04/19/2020 11:38 AM T Nico Jones MD LAB - URINALYSIS ORD ERABLES [facility] [address] [place] [address], [facility] [phone] * CULTURE URINE (04/19/2020 11:05 AM CDT) Pathologist [facility] Culture Urine <10,000 CFU/mL urogenital michelle KEYANNA 04/20/2020 4:41 PM CDT [facility] MICROBIOLOGY Urine URINE SPECIMEN OBTAINED BY CLEAN CATCH PROCEDURE / Unknown Collection / Unknown 04/19/2020 11:05 AM CDT 04/19/2020 11:24 AM CDT Nico Jones MD LAB - MICROBIOLOGY O [facility] MICROBIOLOGY [address] [place] [address], [facility] [phone] * QUANTIFERON-TB GOLD PLUS 4-TUBE (04/19/2020 11:03 AM CDT) Pathologist [facility] QuantiFERON NIL 0.12 IU/mL 0 4:33 AM CDT [facility] ([facility]) Comment: Performed By: [facility] [address] [place] [address] Assembler Insulator: Jah Land MD, MS QuantiFERON TB Gold Plus Negative Negative 04/22/2020 4:33 AM CDT [facility] ([facility]) Comment: Interpretive Data: Quantiferon TB Gold Plus [...] Mycobacterium tuberculosis Infection --- [place], 2010 (http://www.cdc.gov/mmwr/preview/mmwrhtml/yc2208l0.htm), for more information concerning test performance in low-prevalence populations and use in occupational screening. QuantiFERON Plus TB1 Minus NIL 0.00 0.00 - 0.34 IU/mL 04/22/2020 4:33 AM CDT [facility] ([facility]) QuantiFERON Plus TB2 Minus NIL 0.00 0.00 - 0.34 IU/mL 04/22/2020 4:33 AM CDT [facility] ([facility]) QuantiFERON Mitogen Minus NIL >10.00 IU/mL 04/22/2020 4:33 AM CDT [facility]) Blood BLOOD SPECIMEN / Unknown Lab Venipuncture / Unknown 04/19/2020 11:03 AM CDT 04/19/2020 11:23 AM CDT Nico Jones MD LAB - CHEMISTRY JORGE A SAHNI [facility] Organization Address City/State/ZIP Co de Phone Number [facility]) [address] * QUANTIFERON-TB GOLD PLUS 1-TUBE (12/16/2018 8:31 AM CDT) [facility] QuantiFERON TB Gold Plus NEGATIVE NEGATIVE [facility] [...] T-lymphocytes. For additional information, please refer to http://MaxMilhas.[employer] Group/faq/204 (This link is being provided for informational/ educational purposes only.) Test Performed at: [facility] [address] [place] [address] IVY DERAS DO,MPH 12/16/2018 8:31 AM CDT 12/16/2018 8:31 AM CDT April Mendoza MD LAB - CHEMISTRY O RDERABLES [facility] [address] [place] [address] * QUANTIFERON TB-GOLD (05/21/2017 9:22 AM CDT) Only the most recent of3 resultswithin the time period is included. [facility] QuantiFERON TB Gold NEGATIVE NEGATIVE [facility] ([facility]) Comment: Negative test result. M. tuberculosis complex infection unlikely. QuantiFERON Nil Value 0.00 IU/mL [facility] ([facility]) QuantiFERON Mitogen Value >10.00 IU/mL [facility] ([facility]) QuantiFERON TB Antigen minus Nil value <0.00 IU/mL [facility] ([facility]) Comment: The Nil tube value is used [...] IU/mL. 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 Report dictated by Angelic Avitia M.D. (residential construction instructor). I, Dr. COCO STORM M.D. have personally [...] spine. Report dictated by Angelic Avitia M.D. (residential construction instructor). I, Dr. COCO STORM M.D. have personally reviewed and interpreted thisexamination/study. This report was electronically signed by COCO STORM M.D. on 12/02/20154:57 PM . April Mendoza MD DIAGNOSTIC IMAGIN G ORDERABLES * XR HAND LEFT 3VW OR MORE (08/02/2015 2:37 PM CATTLE INSPECTOR) Anatomical Region Laterality Modality Wrist / Hand Other Impressions 08/02/2015 3:16 PM CATTLE INSPECTOR Impression: 1. No acute osseous abnormality. 2. Right hand x-rays demonstrate small erosions at the third and fourth distal interphalangeal joints, which were present previously. No new erosions are seen. 3. Left hand x-rays demonstrate no significant arthritis. This report was electronically signed by GARRISON CAN MD on 08/02/2015 3:16 PM . Narrative 08/02/2015 3:16 PM CATTLE INSPECTOR Exam: 1. XR HAND LEFT 3+ VW, [...] RIGHT 3VW OR MORE (08/02/2015 2:37 PM CATTLE INSPECTOR) Anatomical Region Laterality Modality Wrist / Hand Other Impressions 08/02/2015 3:16 PM CATTLE INSPECTOR Impression: 1. No acute osseous abnormality. 2. Right hand x-rays demonstrate small erosions at the third and fourth distal interphalangeal joints, which were present previously. No new erosions are seen. 3. Left hand x-rays demonstrate no significant arthritis. This report was electronically signed by GARRISON CAN MD on 08/02/2015 3:16 PM . Narrative 08/02/2015 3:16 PM CATTLE INSPECTOR Exam: 1. XR HAND LEFT 3+ VW, [...] Culture Urine Comprehensive NO CULTURE INDICATED RIA ([facility]) Comment: REPORT COMMENT: SPECIMEN TYPE->URINE FASTING:YES Test Performed at: [facility] [address] [place] [address] IVY DERAS DO,MPH 04/12/2015 9:11 AM CDT 04/12/2015 9:13 AM CDT April Mendoza MD LAB - MICROBIOLOG Y ORDERABLES RIA ([facility]) * XR CHEST 2VW (04/23/2014 3:32 PM [...] report was dictated by Bryant Garcia MD (residential construction instructor). Dr. DAVID Watson M.D. have personally reviewed [...] report was dictated by Bryant Garcia MD (residential construction instructor). Dr. DAVID Watson M.D. have personally reviewed [...] report was dictated by Bryant Garcia MD (residential construction instructor). Dr. DAVID Watson M.D. have personally reviewed [...] report was dictated by Bryant Garcia MD (residential construction instructor). Dr. DAVID Watson M.D. have personally reviewed [...] ejection fraction of 64%. 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 This was a routine study. The transthoracic [...] MV A Jn: 0.8 m/s MV Dec [place]: 2.8 m/s2 MV E Jn: 0.5 m/s [...] Russell MD Referring Physician: Liliana Owens MD HEEL FORMER: [facility]: [facility] Summary: - Left ventricle: - Systolic [...] Procedure: The study was performed in the [facility]. This was a routine study. The transthoracic [...] MV A Jn: 0.8 m/s MV Dec [place]: 2.8 m/s2 MV E Jn: 0.5 m/s Septal E/e': 6.2 Prepared and signed by Serge Russell MD Signed 05/28/2012 16:20:04 Liliana Owens MD ECHO ORDERABLES [facility] * STRESS TEST NUCLEAR (05/28/2012) Only the most recent of2 resultswithin the time period is included. 05/28/2012 Narrative Transcriptions Serge Russell MD - 05/28/2012 5:07 PM CDT [facility] Stress Test [facility] STRESS TEST PATIENT: SHAWN SHULTZ BMR#: [id number] DATE OF SERVICE: 05/28/2012CCT#: [id number] : 1950ROOM: REFERRING PHYSICIAN: ADMIT DATE: 05/28/2012 [...] scan is pending. MD YAMILKA CASTRO/MARIZA #: [id number] STRESS TEST - DP Liliana Owens MD CARDIAC SERVICE S ORDERABLES Performing Organization Address City/[facility] Co de Phone Number [facility] * LAB HISTORICAL RESULTS-ONBASE (05/24/2012) Only the most recent of4 resultswithin the time period is included. 05/24/2012 Narrative [facility] - 08/12/2012 8:51 AM CATTLE INSPECTOR Historical Provider LAB - CHEMISTRY O RDERABLES Performing Organization Address [facility] Co de Phone Number [facility] [address] [place] [address], [facility] * CARDIAC PACER/DEFIB ORDER (05/25/2011) Liliana Owens MD CARDIAC SERVICE S ORDERABLES * PACEMAKER ANALYSIS SINGLE WITH REPROGRAM (07/13/2010) Liliana Owens MD CARDIAC SERVICE S ORDERABLES Performing Organization Address [facility] Co de Phone Number NONSSM RESULT SCAN [...] of3 resultswithin the time period is included. [facility] Glucose WB/POC 138(H) 75 - 110 mg/dl [facility] BLOOD SPECIMEN / Unknown 02/28/2010 5:57 AM CDT 02/28/2010 11:25 PM CDT Aldo Harrison MD LAB - POINT OF CARE ORDERABLES Performing Organization Address [facility] de Phone Number [facility] [id number] [place] [address] * (ABNORMAL) BASIC METABOLIC PANEL (CALCIUM TOTAL) (02/28/2010 2:40 AM CDT) Pathologist [facility] BUN 17 9.0 - 20.0 mg/dl [facility] Sodium 138 137 - 145 mmol/L [facility] Potassium 3.7 3.6 - 5.0 mmol/L [facility] Chloride 100 98.0 - 107.0 mmol/L [facility] CO2 30 22.0 - 30.0 mEq/L [facility] Anion Gap 7.6 [facility] Glucose 155(H) 75 - 110 mg/dl [facility] Creatinine 1.0 0.66 - 1.25 mg/dl [facility] Calcium 8.7 8.4 - 10.2 mg/dl [facility] eGFR by MDRD 76.48 ml/min/1.7 3m2 [facility] BLOOD SPECIMEN / Unknown 02/28/2010 2:40 AM CDT 02/28/2010 3:23 AM CDT Aldo Harrison MD LAB - CHEMISTRY ORDE RABLES Performing Organization Address City/[facility] Co de Phone Number [facility] [phone] [place] [address] * CARDIAC CATH ORDER (02/28/2010 12:00 AM CDT) 02/28/2010 Narrative Procedure Note Aldo Harrison [facility] CARDIAC CATHETERIZATION PATIENT: SHAWN SHULTZ MR#: [id number] ADMIT DATE: 02/27/2010 PROCEDURE DATE: 02/28/2010 : [...] after undergoing cardiac catheterization procedure in thePhysician Water Quality Tester at [facility] which revealed two vesselbranch coronary artery [...] wire to the site of stenosis and [id number] carmelita inflation of the stent balloon for [...] interesting patient. ALDO HARRISON MD ASN/LM #: [id number] MEDICAL/SURGICAL CARDIAC CATHETERIZATION - DP Aldo Harrison MD CARDIAC GLOBAL MANAGER ORD ERABLES * PTT (02/27/2010 4:30 PM CDT) [facility] PTT 24.4 24.0 - 32.0 seconds [facility] BLOOD SPECIMEN / Unknown 02/27/2010 4:30 PM CDT 02/27/2010 4:37 PM CDT Aldo Harrison MD LAB - COAGULATION OR DERABLES Performing Organization Address [facility] Co de Phone Number [facility] [address] [place] [address] * PLATELET COUNT AUTO (02/27/2010 4:30 PM CDT) [facility] Platelet Count 199 130.0 - 400.0 1000/mm3 [facility] BLOOD SPECIMEN / Unknown 02/27/2010 4:30 PM CDT 02/27/2010 4:38 PM CDT Aldo Harrison MD LAB - HEMATOLOGY ORD ERABLES Performing Organization Address [facility] de Phone Number [facility] [address] [place] [address] * (ABNORMAL) ACT - POINT OF CARE (02/27/2010 12:32 PM CDT) Only the most recent of2 resultswithin the time period is included. [facility] ACT POCT 239(A) 125 - 187 Seconds DP POCT TESTING QC Verified yes Yes DP POC T TESTING Blood specimen (specimen) BLOOD SPECIMEN / Unknown 02/27/2010 12:32 PM CDT Aldo Harrison MD LAB - POINT OF CARE ORDERABLES [facility] POCT TESTING [address] [place] [address] * CARDIAC STRESS TEST ORDER (02/02/2010) Liliana Owens MD CARDIAC SERVICE S ORDERABLES * PACEMAKER ANALYSIS SINGLE WITHOUT REPROGRAM (06/13/2009) Liliana Owens MD CARDIAC SERVICE S ORDERABLES NONSSM RESULT SCAN Care Teams Manager Intelligence Relationship Specialty Start Date End Date Maryann Jiménez DO [address] [place] [address] PCP - General 09/07/22
--- OUTSIDE RECORDS SUMMARY | 2024-11-16 00:12 | XMS_ITS | Referral Summary ---
Author Organization [facility] Address [address] [place] [address] Care Team Providers Care Senior Trial Attorney Name Role Phone Maryann Jiménez DO Primary Care Provider + Jose David Betancourt MD Unavailable [phone] Encounters Date Type Department Care Team Description 10/28/2024 Telephone [facility] Medical [facility] [address] [facility] [address] [place] [phone] Matthew Gustafson MD r/s [facility] 10/28/2024 Results Follow-Up [facility] Medical Group Cardiology at [address] [place] [address] Matthew Gustafson MD 10/26/2024 10:15 AM HYDROELECTRIC POWERPLANT SUPERVISOR Ancillary Procedure [facility] Medical [facility] [address] [facility] [address] [place] [phone] Coronary arteriosclerosis in [place] artery; Hyperlipidemia associated with type 2 diabetes mellitus (HCC); Hypertension associated with diabetes (HCC) 10/07/2024 Telephone [facility] Medical [facility] [address] [facility] [address] [place] [phone] Matthew Gustafson MD from Last 3 Months Allergies Active Allergy [...] 1 tablet (100 mcg total) by mouth equipment sterilizer before breakfast Active metFORMIN (GLUCOPHAGE) 1,000 mg [...] are complete. Avoid live-vaccines unless reviewed with fern picker first. Insomnia secondary to chronic pain 01/05/2021 Degenerative disc disease, cervical 02/10/2020 Cervical myofascial pain syndrome 02/10/2020 Cervical radiculopathy 02/10/2020 Hypertriglyceridemia 08/17/2019 Palpitations 08/17/2019 Hypertension associated with diabetes 08/07/2017 Disease of thyroid gland 08/07/2017 Diabetes mellitus 08/07/2017 Assessment & Plan (08/17/2024 11:11 AM HYDROELECTRIC POWERPLANT SUPERVISOR): Chronic, worsening. Restart Trulicity 3 mg weekly [...] and Trulicity Send me a message via [employer] every week, so we can look at [...] Overview (12/08/2016): Essential hypertension Coronary arteriosclerosis in [place] artery 09/28 Overview (12/08/2016): Coronary artery disease involving [place] coronary artery of [place] heart without angina pectoris Arthralgia of shoulder [...] drink = 0.6 oz pur e alcohol) [facility] Utilities Answer Date Recorded In the past 12 months has th e electric, gas, oil, or water company [...] often do you attend chur ch or faith services? 1 to 4 times per year 02/12/2024 Do you belong to any clubs o r organizations such as anglican groups, unions, fraternal or athletic groups, or [...] any time in the past 12 m [facility], were you homeless or living in a alf (including now)? No 02/12/2024 Personal Safety Answer Date Recorded Have you ever been in or are you currently in a harmful physical or emotional relationship or is someone making you feel afraid or unsafe? Denies 06/21/2024 Sex and Gender Information Value Date Recorded Sex Assigned at Not on file Legal Sex Male 3:55 AM HYDROELECTRIC POWERPLANT SUPERVISOR Gender Identity Male 01/23/2020 12:25 AM CDT Sexual Orientation Straight 01/23/2020 12 :25 AM CDT Last Filed Vital Signs Vital Sign Reading Time Taken Comments Blood Pressure 122/70 08/17/2024 10:39 AM HYDROELECTRIC POWERPLANT SUPERVISOR Pulse 68 08/17/2024 10:39 AM HYDROELECTRIC POWERPLANT SUPERVISOR Temperature 36.9 C (98.5 F) 08/17/2024 10:39 AM HYDROELECTRIC POWERPLANT SUPERVISOR Respiratory Rate 14 08/17/2024 10:39 AM HYDROELECTRIC POWERPLANT SUPERVISOR Oxygen Saturation 95% 07/10/2024 2:46 PM HYDROELECTRIC POWERPLANT SUPERVISOR Inhaled Oxygen Concentration - - Weight 93.1 kg (205 lb 3.2 oz) 08/17/2024 10:39 AM HYDROELECTRIC POWERPLANT SUPERVISOR Height 170.2 cm (5' 7 ) 08/17/2024 10:39 AM HYDROELECTRIC POWERPLANT SUPERVISOR Body Mass Index 32.14 08/17/2024 10:39 AM HYDROELECTRIC POWERPLANT SUPERVISOR Plan of Treatment Not on file Goals Goal Patient Goal Type Associated Problems Recent Progress Patient-Stated? Author [facility] Worsening(01/2021 2:46 PM CDT) No Flor Lewis, TOÑO Note: Play golf with minimal to no relief. Medical Devices Implanted Type Area Feeder Worker Power Unit Operator Device Identifier Shelf Expiration Date Model / Serial / Lot [employer] Liyah Ams 700 Kit Accessory Penile Prosthesis [id number] - [id number] Implanted:Qty: 1 on 06/18/2024 by Jose David Betancourt MD at [facility] N/A: Groin [employer] Liyah [id number] 04/08/2029 [id number] / / [id number] [employer] Liyah Ams Spectra 12/14mm .5cm Cylinder Concealable Malleable Rear Tip [id number] - [id number] Implanted:Qty: 1 on 06/18/2024 by Jose David Betancourt MD at [facility] N/A: Penis [employer] Liyah [id number] 02/15/2029 [id number] / / [id number] [employer] Liyah Ams 700 Preconnect 1 Ms Pump 2 Cylinder Penoscrotal Prosthesis [id number] - [id number] Implanted:Qty: 1 on 06/18/2024 by Jose David Betancourt MD at [facility] N/A: Penis [employer] Liyah [id number] 10/13/2025 [id number] / / [id number] [employer] Liyah Conceal Low Profile [place] 100ml Prosthesis Inhibizone Sterile Latex Free [id number] - [id number] Implanted:Qty: 1 on 06/18/2024 by Jose David Betancourt MD at [facility] Left: Pelvis [employer] Liyah [id number] 04/22/2026 [id number] / / [id number] Procedures Procedure Name Priority Date/Time Associated Diagnosis Comments NM MPI SPECT (REST AND/OR STRESS) MULTIPLE STUDIES Schedule Routine, Read Routine (OP Routine) 10/26/2024 12:55 PM HYDROELECTRIC POWERPLANT SUPERVISOR Coronary arteriosclerosis in [place] artery Hyperlipidemia associated with type 2 diabetes mellitus (HCC) Hypertension associated with diabetes (HCC) POCT HEMOGLOBIN A1C Routine 08/17/2024 10:40 AM HYDROELECTRIC POWERPLANT SUPERVISOR Type 2 diabetes mellitus with hyperglycemia, with [...] and/or Stress) Multiple Studies (10/26/2024 12:55 PM HYDROELECTRIC POWERPLANT SUPERVISOR) Anatomical Region Laterality Modality Body N/A Nuclear Medicine 10/26/2024 11:1 3 AM HYDROELECTRIC POWERPLANT SUPERVISOR Narrative 10/26/2024 6:41 PM HYDROELECTRIC POWERPLANT SUPERVISOR [facility] Medical Group Cardiology [address] [facility] [address] [address] [address] [facility] [address], [place] [address] P:[phone] P:[phone] MPI Imaging Report Patient Name: SHAWN SHULTZ B : 1950 Study Date: 10/26/2024 11:13:56 AM Gender: M Tech: RAFAELA [facility] Location: [facility] Provider: MATTHEW GUSTAFSON Height(Cm): 170.2 BSA: Weight(Kg): [...] Former Smoker, I25.10 Atherosclerotic heart disease of [place] coronary artery without angina pectoris, E11.69 Type [...] ischemia. Electronically Signed By: Duy Cowan MD, [facility] 10/26/2024 5:46:40 PM HYDROELECTRIC POWERPLANT SUPERVISOR Electronically Signed By: Duy Cowan MD, [facility] 10/26/2024 5:46:40 PM HYDROELECTRIC POWERPLANT SUPERVISOR Procedure Note Duy Cowan MD - 10/26/2024 [facility] Medical Group Cardiology [address], [place] [address] [address], [place] [address] P:[phone] P:[phone] MPI Imaging Report Patient Name: SHAWN SHULTZ B : 1950 Study Date: 10/26/2024 11:13:56 AM Gender: M Tech: [facility]FA[facility]A [facility] Location: [facility] Provider: MATTHEW GUSTAFSON Height(Cm): 170.2 BSA: Weight(Kg): [...] ischemia. Electronically Signed By: Duy Cowan MD, [facility] 10/26/2024 5:46:40 PM HYDROELECTRIC POWERPLANT SUPERVISOR Electronically Signed By: Duy Cowna MD, [facility] 10/26/2024 5:46:40 PM HYDROELECTRIC POWERPLANT SUPERVISOR Matthew Gustafson MD [facility] PROCEDURES Final R esult * (ABNORMAL) POCT hemoglobin A1c (08/17/2024 10:40 AM HYDROELECTRIC POWERPLANT SUPERVISOR) Hemoglobin A1C, POC 7.8 4.0 - 5.6 % Comment:None Capillary blood 08/17/2024 1 0:40 AM HYDROELECTRIC POWERPLANT SUPERVISOR Alireza Clark MD POINT OF CARE TEST [...] LAB BLOOD ORDERABLES Final Res ult [facility] [address] [facility] Department [place] [address] * (ABNORMAL) Albumin Creatinine Ratio, Urine (04/01/2024 11:09 AM CDT) Albumin Ur 19.5 mg/L Comment: Interpretive Data No reference range established. Current interpretive data was last revised 2019. Creatinine Ur 60.3 mg/dL [facility] Comment: Interpretive Data No reference range established. Current interpretive data was last revised 2019. Albumin Creatinine Ratio, Ur 32(H) 1 - 29 mg/g [facility] Urine 04/01/2024 11:0 9 AM CDT 04/01/2024 5:29 PM CDT us Alireza Clark MD LAB URINE ORDERABLES Final Resul t JE[facility] [address] Department [place] [address] * (ABNORMAL) Lipid panel (04/01/2024 11:09 AM [...] on 2018. Triglycerides 117 <=149 mg/dL [facility] Comment: Interpretive Data Ages [...] BLOOD ORDERABLES Final Resul t JEFF [facility] [address] Department [place] [address] from Last 3 Months or Most Recently Relevant to Health Maintenance Insurance MEDICARE FOR LIFE FOR LIFE MEDICARE SOLUTIONS FOR LIFE MEDICARE SOLUTIONS Advance Directives For more information, please contact: [phone] * Full Code (Latest Code Status on File) Date Activated Date Inactivated Comments 06/18/2024 3:52 PM 06/19/2024 10:57 PM * Full Code Date Activated Date Inactivated Comments 02/11/2024 3:49 PM 02/12/2024 6:22 PM Care Teams Senior Trial Attorney Relationship Specialty Start Date End Date Maryann Jiménez DO PCP - General Family Medicine 07/03/22 Jose David Betancourt MD [address] [facility] [address] [place] [address] Consulting Physician Urology 06/19/24
--- OUTSIDE RECORDS SUMMARY | 2024-11-16 00:12 | XMS_ITS | Encounter Summary ---
Author Organization [facility] Health Address [address] [address] Care Team Providers Care Checkout Supervisor Name Role Phone Unknown, Provider Primary Care Provider Unavaila ble Chai Giraldo MD Primary Care Provider [phone] Syl Mcadams MD Primary Care Provider [phone] Maryann Jiménez DO Primary Care Provider [phone] Encounter Details Date Type Department Care Team (Late st Contact Info) Description 03/03/2012 [facility]PT Liliana Owens MD [address] [place] [address] Social History Tobacco Use Types [...] on filedocumented in this encounter Care Teams Checkout Supervisor Relationship Specialty Start Date End Date Unknown, Provider PCP - General 02/27/10 01/19/14 Chai Giraldo MD [address] [place] [phone] PCP - General 12/24/17 04/28/18 Syl Mcadams MD [address] [place] [address] PCP - General 04/29/18 09/06/22 Maryann Jiménez DO [address] [place] [address] PCP - General 09/07/22 documented as of this encounter
--- OUTSIDE RECORDS SUMMARY | 2024-11-16 00:12 | XMS_ITS | Encounter Summary ---
Author Organization [facility] Healthcare Address [address] [place] [address] Care Team Providers Care Medical Associate Name Role Phone Maryann Jiménez DO Primary Care Provider + Jose David Betancourt MD Unavailable [phone] Encounter Details Date Type Department Care Team (Late st Contact Info) Description 10/28/2024 Results Follow-Up [facility] Medical Group Cardiology at [address] [place] [address] Jatinder Jones MD [address] [address] Social History Tobacco Use Types Packs/Day Years Used Date Smoking Tobacco: Former Cigarettes Q uit: 04/28/1983 Smokeless Tobacco: Never Comments:quite smoking 1982 Alcohol Use Standard Drinks/Week Comments Yes 0 (1 standard drink = 0.6 oz pur e alcohol) [facility] Utilities Answer Date Recorded In the past 12 months has [employer], gas, oil, or water [employer] threatened to shut off services in your [...] How often do you attend chur or worship services? 1 to 4 times per year 02/12/2024 Do you belong to any clubs o r organizations such as worship groups, unions, fraternal or athletic groups, or [...] any time in the past 12 m [facility], were you homeless or living in a intermediate (including now)? No 02/12/2024 Personal Safety Answer Date Recorded Have you ever been in or are you currently in a harmful physical or emotional relationship or is someone making you feel afraid or unsafe? Denies 06/21/2024 Sex and Gender Information Value Date Recorded Sex Assigned at Not on file Legal Sex Male 3:55 AM COLLEGE OR UNIVERSITY DEPARTMENT HEAD Gender Identity Male 01/23/2020 12:25 AM CDT [...] on filedocumented in this encounter Care Teams Medical Associate Relationship Specialty Start Date End Date Maryann Jiménez DO PCP - General Family Medicine 07/03/22 Jose David Betancourt MD [address] [address] Consulting Physician Urology 06/19/24 documented as of this encounter
--- OUTSIDE RECORDS SUMMARY | 2024-11-16 00:12 | XMS_ITS | Encounter Summary ---
Author Organization [facility] Medical Group Address [address] [facility] [address] [place] [address] Care Team Providers Care Development Officer Name Role Phone Syl Mcadams MD Primary Care Provider [phone] Syl Mcadams MD Primary Care Provider [phone] Miscellaneous, Not In File Primary Care Provider Unavailable Syl Mcadams MD Primary Care Provider [phone] Maryann Jiménez DO Primary Care Provider + Jose David Betancourt MD Unavailable [phone] Encounter Details Date Type Department Care Team (Late st Contact Info) Description 10/29/2016 Orders Only [facility] ProviderMireille MD [address] [place] [address] Social History Tobacco Use Types Packs/Day Years Used Date Smoking Tobacco: Former Alcohol Use Standard Drinks/Week Comments Yes 0 (1 standard drink = 0.6 oz pur e alcohol) Sex and Gender Information Value Date Recorded Sex Assigned at Not on file Legal Sex Male 3:55 AM HOTEL CASINO FLOORPERSON Gender Identity Male 01/23/2020 12:25 AM CDT [...] documented as of this encounter Care Teams Development Officer Relationship Specialty Start Date End Date Syl Mcadams MD [address] [place] [address] PCP - General 11/30/16 01/21/17 Syl Mcadams MD [address] [place] [address] PCP - General 07/14/13 11/29/16 Miscellaneous, Not In File PCP - General 01/22/17 7 Syl Mcadams MD [address] [place] [address] PCP - General 02/05/17 07/02/22 Maryann Jiménez DO PCP - General Family Medicine 07/03/22 Jose David Betancourt MD [address] [place] [address] Consulting Physician Urology 06/19/24 documented as of this encounter
--- OUTSIDE RECORDS SUMMARY | 2024-11-16 00:13 | XMS_ITS | CONTINUITY OF CARE DOCUMENT ---
Author Name duong suzeparish Address Unknown Organization [facility] Address [address] [place] [address] [address] [place] [address] Phone [phone] Care Team Providers Care Neurosurgery Physician Name Role Phone Mary MUNOZ, Richardson Unavailable [phone] Robert MUNOZ, Jatinder Unavailable [phone] TAMERA MUNOZ, JENNI HOLLEY Unavailable PROBLEMS Condition Status Date Provider Notes Sleep apnea -Dr Genao to follow active Alicia alvarez RN Hypothyroidism active Alicia Michelle RN Hyperlipidemia active Alicia Michelle RN HTN active Alicia Michelle RN CAD s/p stents x3 active Alicia Michelle RN Syncope active Alicia Michelle RN Overweight active Alicia Michelle RN Status Post Pacemaker, permanent active Huy Carver DO Physical exam completed - Huy Carver DO Status Post Medtronic (MRI Safe) REVEAL/LinQ active Huy Carver DO Family History of Hyperlipidemia: completed - Huy Carver DO ENCOUNTERS Date Type Provider Location Encounter Diag nosis - In-person encounter Office Visit [facility] Over[facility] - In-person encounter Office Visit [facility] Status Post Medtronic (MRI Safe) REVEAL/LinQStatus Post Pacemaker, permanent - In-person encounter Office Visit Huy Carver [facility] Family History of Hyperlipidemia:Phys ical examStatus Post Pacemaker, permanent - In-person encounter Office Visit [facility] - In-person encounter Office Visit Huy Car[facility] VITAL SIGNS Date Observation Value Provider [...] astity Sonia blood pressure, systolic 120 mm[Hg] Canids stity Sonia respiratory rate E&M 16 /min [...] percentage of total cells, blood 0.3 % [facility] nucleated red blood cells as percent of blood leukocytes 0.0 % [facility] - 3 red blood cell (erythrocyte) [...] completed one cap daily 9 - 8 Carmen Aponte MULTIVITAMINS ORAL CAPSULE completed one per [...] Former smoker Carmen duran number of grandchildren Huy Weston O Huycarmelo Alatorredilshad GNUYỄN social history reviewed E&M revi ewed - [...] quit 1982 Maegan parker cigarette use yes Magean Ansari smoking status Former smoker Maegan Bowserwil [...] Policy type / Coverage type Aníbal red alliance [place] [id number] VENESSA BARGER [id number] ADVANCE DIRECTIVES Name Date POWER OF WORKERS COMPENSATION CLAIMS ANALYST TREATMENT PLAN Date Name Performer Electrophysiology - [...] (03/28/2017) Labs Reviewed: C reat: 0.8 (11/22/2016) [facility] Electrophysiology: Claudia frost w/ Robert [facility] Electrophysiology:un clear etiolgy. Likely vasovagal. [...] Has had no recurrent syncope since. [facility] Electrophysiology: B P today: 120/58 P rior BP: 115/60 (11/22/2016) Labs Reviewed: C reat: 0.8 (11/22/2016) [facility] Electrophysiology:Follows w/ Gee downs [facility] Electrophysiology: u nclear etiolgy. h [...] Has had no recurrent syncope since. [facility] EP: B P today: 115/60 [facility] EP:neg stress test with normal L VF [facility] EP:unclear etiolgy. h ad 3 [...] Provider Procedure Notes S tatus EKG Huy Somerset DO completed Loop Recorder Interrogation, Remote Huy Somerset DO INTERROGATION EVALUATION REMOTE </30 D ILR SYS completed ICM Interrogation, Remote (Tech) Huy Somerset DO INTERROGATION EVAL REMOTE </30 D TECH REVIEW completed Loop Recorder Interrogation, Remote Huy Somerset DO INTERROGATION EVALUATION REMOTE </30 D ILR SYS completed ICM Interrogation, Remote (Tech) Huy Somerset DO INTERROGATION EVAL REMOTE </30 D TECH REVIEW completed Loop Recorder Interrogation, Remote Huy Somerset DO INTERROGATION EVALUATION REMOTE </30 D ILR SYS completed ICM Interrogation, Remote (Tech) Huy Somerset DO INTERROGATION EVAL REMOTE </30 D TECH REVIEW completed Loop Recorder Interrogation, Remote Huy Somerset DO INTERROGATION EVALUATION REMOTE </30 D ILR SYS completed ICM Interrogation, Remote (Tech) Huy Somerset DO INTERROGATION EVAL REMOTE </30 D TECH REVIEW completed Loop Recorder Interrogation, Remote Huy Somerset DO INTERROGATION EVALUATION REMOTE </30 D ILR SYS completed ICM Interrogation, Remote (Tech) Huy Somerset DO INTERROGATION EVAL REMOTE </30 D TECH REVIEW completed Loop Recorder Interrogation, Remote Huy Somerset DO INTERROGATION EVALUATION REMOTE </30 D ILR SYS completed ICM Interrogation, Remote (Tech) Huy Somerset DO INTERROGATION EVAL REMOTE </30 D TECH REVIEW completed Loop Recorder Interrogation, Remote Huy Somerset DO INTERROGATION EVALUATION REMOTE </30 D ILR SYS completed ICM Interrogation, Remote (Tech) Huy Somerset DO INTERROGATION EVAL REMOTE </30 D TECH REVIEW completed Loop Recorder Interrogation, Remote Huy Somerset DO INTERROGATION EVALUATION REMOTE </30 D ILR SYS completed ICM Interrogation, Remote (Tech) Huy Somerset DO INTERROGATION EVAL REMOTE </30 D TECH REVIEW completed Loop Recorder Interrogation, Remote Huy Somerset DO INTERROGATION EVALUATION REMOTE </30 D ILR SYS completed ICM Interrogation, Remote (Tech) Huy Somerset DO INTERROGATION EVAL REMOTE </30 D TECH REVIEW completed Schedule Followup Huy Glascoc k DO in 1 yr completed EKG Huy Somerset DO completed Loop Recorder Interrogation, Remote Huy Somerset DO INTERROGATION EVALUATION REMOTE </30 D ILR SYS completed ICM Interrogation, Remote (Tech) Huy Somerset DO INTERROGATION EVAL REMOTE </30 D TECH REVIEW completed Loop Recorder Interrogation, Remote Huy Somerset DO INTERROGATION EVALUATION REMOTE </30 D ILR SYS completed ICM Interrogation, Remote (Tech) Huy Somerset DO INTERROGATION EVAL REMOTE </30 D TECH REVIEW completed Loop Recorder Interrogation, Remote Huy Somerset DO INTERROGATION EVALUATION REMOTE </30 D ILR SYS completed ICM Interrogation, Remote (Tech) Huy Somerset DO INTERROGATION EVAL REMOTE </30 D TECH REVIEW completed Loop Recorder Interrogation, Remote Huy Somerset DO INTERROGATION EVALUATION REMOTE </30 D ILR SYS completed ICM Interrogation, Remote (Tech) Huy Somerset DO INTERROGATION EVAL REMOTE </30 D TECH REVIEW completed Loop Recorder Interrogation, Remote Huy Somerset DO INTERROGATION EVALUATION REMOTE </30 D ILR SYS completed ICM Interrogation, Remote (Tech) Huy Somerset DO INTERROGATION EVAL REMOTE </30 D TECH REVIEW completed Loop Recorder Interrogation, Remote Huy Somerset DO INTERROGATION EVALUATION REMOTE </30 D ILR SYS completed ICM Interrogation, Remote (Tech) Huy Somerset DO INTERROGATION EVAL REMOTE </30 D TECH REVIEW completed Loop Recorder Interrogation, Remote Huy Somerset DO INTERROGATION EVALUATION REMOTE </30 D ILR SYS completed ICM Interrogation, Remote (Tech) Huy Somerset DO INTERROGATION EVAL REMOTE </30 D TECH REVIEW completed Loop Recorder Interrogation, Remote Huy Somerset DO INTERROGATION EVALUATION REMOTE </30 D ILR SYS completed ICM Interrogation, Remote (Tech) Huy Somerset DO INTERROGATION EVAL REMOTE </30 D TECH REVIEW completed Loop Recorder Interrogation, Remote Huy Somerset DO INTERROGATION EVALUATION REMOTE </30 D ILR SYS completed ICM Interrogation, Remote (Tech) Huy Somerset DO INTERROGATION EVAL REMOTE </30 D TECH REVIEW completed Loop Recorder Interrogation, Remote Huy Somerset DO INTERROGATION EVALUATION REMOTE </30 D ILR SYS completed ICM Interrogation, Remote (Tech) Huy Somerset DO INTERROGATION EVAL REMOTE </30 D TECH REVIEW completed EKG Huy Somerset DO completed SNOMED-CT: [id number] Current Medications Documented Huy Somerset DO completed Loop Recorder Interrogation, Remote Huy Somerset DO INTERROGATION EVALUATION REMOTE </30 D ILR SYS completed ICM Interrogation, Remote (Tech) Huy Somerset DO INTERROGATION EVAL REMOTE </30 D TECH REVIEW completed Loop Recorder Interrogation, Remote Huy Somerset DO INTERROGATION EVALUATION REMOTE </30 D ILR SYS completed ICM Interrogation, Remote (Tech) Huy Somerset DO INTERROGATION EVAL REMOTE </30 D TECH REVIEW completed Loop Recorder Interrogation, Remote Huy Somerset DO INTERROGATION EVALUATION REMOTE </30 D ILR SYS completed ICM Interrogation, Remote (Tech) Huy Somerset DO INTERROGATION EVAL REMOTE </30 D TECH REVIEW completed Loop Recorder Interrogation, Remote Huy Somerset DO INTERROGATION EVALUATION REMOTE </30 D ILR SYS completed ICM Interrogation, Remote (Tech) Huy Somerset DO INTERROGATION EVAL REMOTE </30 D TECH REVIEW completed EKG Huy Somerset DO completed SNOMED-CT: [id number] Current Medications Documented Huy Somerset DO completed Loop Recorder Interrogation, Remote Huy Somerset DO INTERROGATION EVALUATION REMOTE </30 D ILR SYS completed ICM Interrogation, Remote (Tech) Huy Somerset DO INTERROGATION EVAL REMOTE </30 D TECH REVIEW completed Loop Recorder Interrogation, Remote Huy Somerset DO INTERROGATION EVALUATION REMOTE </30 D ILR SYS completed ICM Interrogation, Remote (Tech) Huy Somerset DO INTERROGATION EVAL REMOTE </30 D TECH REVIEW completed Loop Recorder Interrogation, Remote Huy Somerset DO INTERROGATION EVALUATION REMOTE </30 D ILR SYS completed ICM Interrogation, Remote (Tech) Huy Somerset DO INTERROGATION EVAL REMOTE </30 D TECH REVIEW completed Loop Recorder Interrogation, Remote Huy Somerset DO INTERROGATION EVALUATION REMOTE </30 D ILR SYS completed ICM Interrogation, Remote (Tech) Huy Somerset DO INTERROGATION EVAL REMOTE </30 D TECH REVIEW completed EKG Huy Somerset DO completed SNOMED-CT: [id number] Current Medications Documented Huy Somerset DO completed
--- OUTSIDE RECORDS SUMMARY | 2024-11-16 00:13 | XMS_ITS | Patient Health Record ---
Author Organization [facility] Address [address] [place] [address] Care Team Providers Care Dip Brazier Name Role Phone Jamison Dsouza MD Primary Care Provider ALLERGIES Allergen (clinical drug ingredient) Drug/Non Drug [...] confirmed Strain of long head of biceps (275885540) Problem Overexertion from strenuous movement or load, initial encounter (X50.0XXA) 3 Active confirmed Overexertion, strenuous movements and vibration (event) (799187145) Problem Unspecified injury of left shoulder and upper arm, initial encounter (S49.92XA) 2 Active confirmed Injury of shoulder and upper arm (931141767) Problem Impingement syndrome of left shoulder (M75.42) 2 Active confirmed Impingement syndrome of left shoulder region (182385164487127) Problem Primary osteoarthritis, left shoulder (M19.012) 2 Active confirmed Localized, primary osteoarthritis of the shoulder region (515631810) Problem Unspecified fall, sequela (W19.XXXS) 2 Active confirmed Fall () PLAN OF TREATMENT Pending Test Test Name Order Date CT arthrogram 02/13/2023 Intra-articular Shoulder Injection 03/07 Insurance Providers Payer Name Payer Address Payer Phone Subscriber Number Group Number Insured Name Patient Relationship to Insured Coverage Start Date Coverage End Date Medicare [address] [place] [address] [id number] Ced Mccracken Self - patient is the insured for [employer] [address] [place] [address] [phone] [id number] Ced Mccracken Self - patient is the insured MEDICAL (GENERAL) HISTORY Medical History History ICD Code diabetes mellitus hypertension heart disease thyroid disease
--- OUTSIDE RECORDS SUMMARY | 2024-11-16 00:13 | XMS_ITS | Clinical Summary ---
Author Organization [facility] Address [address] [place] [id number] Care Team Providers Care Medical Social Consultant Name Role Phone Maryann Jiménez DO Primary Care Provider + Jose David Betancourt MD Unavailable [phone] Allergies Active Allergy Reactions Criticality Noted [...] 1 tablet (100 mcg total) by mouth retail cashier associate before breakfast Active metFORMIN (GLUCOPHAGE) 1,000 mg [...] are complete. Avoid live-vaccines unless reviewed with sleeve baster first. Insomnia secondary to chronic pain 01/05/2021 Degenerative disc disease, cervical 02/10/2020 Cervical myofascial pain syndrome 02/10/2020 Cervical radiculopathy 02/10/2020 Hypertriglyceridemia 08/17/2019 Palpitations 08/17/2019 Hypertension associated with diabetes 08/07/2017 Disease of thyroid gland 08/07/2017 Diabetes mellitus 08/07/2017 Assessment & Plan (08/17/2024 11:11 AM INSERT OPERATOR): Chronic, worsening. 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 Arthralgia of shoulder 09/04/2013 Chronic purulent otitis media 07/14/2013 Overview (12/07/2016): CHR SUP OTITIS MEDIA NOS Neural hearing loss, bilateral 07/14/2013 Overview (12/08/2016): Neural Hearing Loss Bilat Brachial neuritis 02/03/2013 Cervicalgia 02/02/2013 Lumbago 01/30/2013 Encounters Date Type Department Care Team Description 10/28/2024 Telephone [facility] [address] [place] [phone] Matthew Gustafson MD r/s [facility] 10/28/2024 Results Follow-Up [facility] at [address] [place] [phone] Matthew Gustafson MD 10/26/2024 10:15 AM INSERT OPERATOR Ancillary Procedure [facility] [address] [place] [address] Coronary arteriosclerosis in mohegan artery; Hyperlipidemia associated with type 2 diabetes mellitus (HCC); Hypertension associated with diabetes (HCC) 10/07/2024 Telephone [facility]iology [address] [place] [phone] Matthew Gustafson MD from Last 3 Months Immunizations Immunization Administration [...] REPLACE / REMOVE PACEMAKER 09/02/1988 - 09/01/1989 [employer] - battery is , does not work, opted to not have it removed LAPAROSCOPIC CHOLECYSTECTOMY 04/02/2020 - 05/02/2020 UMBILICAL HERNIA REPAIR 04/02/2020 - 05/02/2020 COLECTOMY 10/16/2022 ROTATOR CUFF REPAIR 07/03/2023 Right CHOLECYSTECTOMY 04/2020 LASIK 09/02/2002 - 09/01/2003 TONSILLECTOMY 09/02/1999 - 09/01/2000 CERVICAL FUSION 09/02/2000 - 09/01/2001 C4-5 COLONOSCOPY 2006, 2013, 2016, 2021, 2023 CARDIAC STENT PLACEMENT 01/31/2010 - 03/01/2010 x3 HEMORROIDECTOMY 2016 CARDIAC SURGERY 09/02/2016 - 09/01/2017 Loop [...] Pina Heart disease; Mental illness Maternal Grandmother Salome Pina Alcohol abuse Mother Emily Shultz Heart attack Mother Emily Shultz Myocardial infa rction; Liver disease Mother Emily Shultz COPD Paternal Grandfather Bethel Shultz Heart disease Paternal Grandfather Bethel Shultz Heart disease; Cancer Paternal Grandmother Margaritaher Shultz Diabetes Paternal Grandmother Margaritaher Shultz Relation Name Status Comments Brother Father Eugenia Shultz Maternal Grandfather Remington Pina Maternal Grandmother Amanthgiorgi Pina Mother Emily Shultz Paternal Grandfather Bethel Shultz Paternal Grandmother Margaritaher Shultz Social History Tobacco Use Types Packs/Day Years Used Date Smoking Tobacco: Former Cigarettes Q uit: 04/28/1983 Smokeless Tobacco: Never Tobacco Cessation:Counseling Given: Not Answered Comments:quite smoking 1982 Alcohol Use Standard Drinks/Week Comments Yes 0 (1 standard drink = 0.6 oz pur e alcohol) [facility] Utilities Answer Date Recorded In the [...] often do you attend chur ch or yazidi services? 1 to 4 times per year 02/12/2024 Do you belong to any clubs o r organizations such as buddhism groups, unions, fraternal or athletic groups, or [...] any time in the past 12 m [facility], were you homeless or living in a assisted (including now)? No 02/12/2024 Personal Safety Answer Date Recorded Have you ever been in or are you currently in a harmful physical or emotional relationship or is someone making you feel afraid or unsafe? Denies 06/21/2024 Sex and Gender Information Value Date Recorded Sex Assigned at Not on file Legal Sex Male 3:55 AM INSERT OPERATOR Gender Identity Male 01/23/2020 12:25 AM CDT Sexual Orientation Straight 01/23/2020 12 :25 AM CDT Obstetrics History Last Filed Vital Signs Vital Sign Reading Time Taken Comments Blood Pressure 122/70 08/17/2024 10:39 AM INSERT OPERATOR Pulse 68 08/17/2024 10:39 AM INSERT OPERATOR Temperature 36.9 C (98.5 F) 08/17/2024 10:39 AM INSERT OPERATOR Respiratory Rate 14 08/17/2024 10:39 AM INSERT OPERATOR Oxygen Saturation 95% 07/10/2024 2:46 PM INSERT OPERATOR Inhaled Oxygen Concentration - - Weight 93.1 kg (205 lb 3.2 oz) 08/17/2024 10:39 AM INSERT OPERATOR Height 170.2 cm (5' 7 ) 08/17/2024 10:39 AM INSERT OPERATOR Body Mass Index 32.14 08/17/2024 10:39 AM INSERT OPERATOR Plan of Treatment Health Maintenance Due Date [...] no relief. Medical Devices Implanted Type Area Spiral Winder Device Identifier Shelf Expiration Date Model / Serial / Lot [employer] Liyah Ams 700 Kit Accessory Penile Prosthesis [id number] - [id number] Implanted:Qty: 1 on 06/18/2024 by Jose David Betancourt MD at [facility] N/A: Groin [employer] Liyah [id number] 04/08/2029 [id number] / / [id number] [employer] Liyah Ams Spectra 12/14mm .5cm Cylinder Concealable Malleable Rear Tip [id number] - [id number] Implanted:Qty: 1 on 06/18/2024 by Jose David Betancourt MD at [facility] N/A: Penis [employer] Liyah [id number] 02/15/2029 [id number] / / [id number] [employer] Liyah Ams 700 Preconnect 1 Ms Pump 2 Cylinder Penoscrotal Prosthesis [id number] - [id number] Implanted:Qty: 1 on 06/18/2024 by Jose David Betancourt MD at [facility] N/A: Penis [employer] Liyah [id number] 10/13/2025 [id number] / / [id number] [employer] Liyah Conceal Low Profile [place] 100ml Prosthesis Inhibizone Sterile Latex Free [id number] - [id number] Implanted:Qty: 1 on 06/18/2024 by Jose David Betancourt MD at [facility] Left: Pelvis [employer] Liyah [id number] 04/22/2026 [id number] / / [id number] Procedures Procedure Name Priority Date/Time Associated Diagnosis Comments NM MPI SPECT (REST AND/OR STRESS) MULTIPLE STUDIES Schedule Routine, Read Routine (OP Routine) 10/26/2024 12:55 PM INSERT OPERATOR Coronary arteriosclerosis in mohegan artery Hyperlipidemia associated with type 2 diabetes mellitus (HCC) Hypertension associated with diabetes (HCC) POCT HEMOGLOBIN A1C Routine 08/17/2024 10:40 AM INSERT OPERATOR Type 2 diabetes mellitus with hyperglycemia, with long-term current use of insulin ([facility]) EGFR STAT 06/21/2024 9:56 AM CDT LIPID PANEL Routine 04/01/2024 11:09 AM CDT Type 2 diabetes mellitus with hyperglycemia, with long-term current use of insulin ([facility]) ALBUMIN CREATININE RATIO, URINE Routine 04/01/2024 11:09 AM CDT Type 2 diabetes mellitus with hyperglycemia, with long-term current use of insulin ([facility]) from Last 3 Months or Most Recently Relevant to Health Maintenance Results * NM MPI SPECT (Rest and/or Stress) Multiple Studies (10/26/2024 12:55 PM INSERT OPERATOR) Anatomical Region Laterality Modality Body N/A Nuclear Medicine 10/26/2024 11:1 3 AM INSERT OPERATOR Narrative 10/26/2024 6:41 PM INSERT OPERATOR [facility] Cardiology [address], [place] [address] [address], [place] [address] P:[phone] P:[phone] MPI Imaging Report Patient Name: SHAWN SHULTZ B : 1950 Study Date: 10/26/2024 11:13:56 AM Gender: M Tech: HEENA RUSSOMT Location: [facility] Provider: MATTHEW GUSTAFSON Height(Cm): 170.2 BSA: Weight(Kg): [...] Former Smoker, I25.10 Atherosclerotic heart disease of mohegan coronary artery without angina pectoris, E11.69 Type [...] Electronically Signed By: Duy Cowan MD, [facility] 10/26/2024 5:46:40 PM INSERT OPERATOR Electronically Signed By: Duy Cowan MD, [facility] 10/26/2024 5:46:40 PM INSERT OPERATOR Procedure Note Duy Cowan MD - 10/26/2024 [facility] Cardiology [address] [facility] [address], [place] [address] [address] [facility] [address] [place] [address] P:[phone] P:[phone] MPI Imaging Report Patient Name: SHAWN SHULTZ Simone : 1950 Study Date: 10/26/2024 11:13:56 AM Gender: M Tech: [facility] Location: [facility] Provider: MATTHEW GUSTAFSON Height(Cm): 170.2 BSA: Weight(Kg): [...] Electronically Signed By: Duy Cowan MD, [facility] 10/26/2024 5:46:40 PM INSERT OPERATOR Electronically Signed By: Duy Cowan MD, [facility] 10/26/2024 5:46:40 PM INSERT OPERATOR Matthew Gustafson MD IM NM PROCEDURES Final R esult * (ABNORMAL) POCT hemoglobin A1c (08/17/2024 10:40 AM INSERT OPERATOR) [facility] Hemoglobin A1C, POC 7.8 4.0 - 5.6 % Comment:None Capillary blood 08/17/2024 1 0:40 AM INSERT OPERATOR Alireza Clark MD POINT OF CARE TEST ORDERABLES Fi nal Result * eGFR (06/21/2024 9:56 AM CDT) [facility] eGFR 79 >=60 mL/min/1. 73 m2 Comment: [...] MD LAB BLOOD ORDERABLES Final Res ult Performing Organization Address City/[facility]/ZIP Co de Phone Number [facility] Department [place] [address] * (ABNORMAL) Albumin Creatinine Ratio, Urine (04/01/2024 [...] LAB URINE ORDERABLES Final Resul t [id number] [id number] Department [place] [address] * (ABNORMAL) Lipid panel (04/01/2024 11:09 AM [...] LAB BLOOD ORDERABLES Final Resul t JEFF [id number] Department [place] [address] from Last 3 Months or Most Recently Relevant to Health Maintenance Insurance MEDICARE [employer] FOR LIFE MEDICARE SOLUTIONS FOR LIFE MEDICARE SOLUTIONS Advance Directives For more information, please contact: [phone] * Full Code (Latest Code Status on File) Date Activated Date Inactivated Comments 06/18/2024 3:52 PM 06/19/2024 10:57 PM * Full Code Date Activated Date Inactivated Comments 02/11/2024 3:49 PM 02/12/2024 6:22 PM Care Teams Medical Social Consultant Relationship Specialty Start Date End Date Maryann Jiménez DO PCP - General Family Medicine 07/03/22 Jose David Betancourt MD [address] [facility] [address] [place] [id number] Consulting Physician Urology 06/19/24
--- OUTSIDE RECORDS SUMMARY | 2024-11-16 00:13 | XMS_ITS | Clinical Summary ---
Author Organization [facility] Address [address] [place] [address] Care Team Providers Care Meat Packager Name Role Phone Maryann Jiménez DO Primary Care Provider [phone] Source Comments [facility],non-owned Affiliates and Associated Physician Practices is amultiple site organization consisting of ambulatory clinics and hospital sitesin [place], [place], [place] and [place]. This disclosure is being madepursuant to the Care Everywhere program and may not contain all information available regarding this patient. Last updated 18.[facility] Allergies Active Allergy Reactions Criticality Noted Date [...] Diabetes mellitus 06/13/2009 Pacemaker 04/12/2009 Overview (04/12/2009): Finari[employer] Immunizations Name Administration Dates Next Due INFLUENZA [...] CDT Oxygen Saturation 95% 09/28/2014 12:31 PM [employer] Inhaled Oxygen Concentration - - Weight 90.7 [...] approximately 13% higher for people identified as -Serbian. eGFR by MDRD 82 > OR = [...] 46 U/L [facility] Comment: Test Performed at: [facility] [address] [place] [address] IVY DERAS DO,MPH Blood BLOOD SPECIMEN / Unknown 12/21/2020 11:20 AM CDT 12/21/2020 11:21 AM CDT Nico Jones MD LAB - CHEMISTRY JORGE A Parnell Organization Address City/State/ZIP Co de Phone Number [facility] [address] [place] [address] from Last 3 Months or Most Recently Relevant to Health Maintenance Care Teams Meat Packager Relationship Specialty Start Date End Date Maryann Jiménez DO [address] [place] [id number] PCP - General 09/07/22
--- OUTSIDE RECORDS SUMMARY | 2024-11-16 00:13 | XMS_ITS | Referral Summary ---
Author Organization [facility] Address [address] [place] [address] Care Team Providers Care Program Lead Name Role Phone Maryann Jiménez DO Primary Care Provider [phone]- [phone] Source Comments [facility],non-owned Affiliates and Associated Physician Practices is amultiple site organization consisting of ambulatory clinics and hospital sitesin [place], [place], [place] and [place]. This disclosure is being madepursuant to the Care Everywhere program and may not contain all information available regarding this patient. Last updated 18.[facility] Allergies Active Allergy Reactions Criticality Noted Date [...] Diabetes mellitus 06/13/2009 Pacemaker 04/12/2009 Overview (04/12/2009): inmoblytronic Immunizations Name Administration Dates Next Due INFLUENZA [...] CDT Oxygen Saturation 95% 09/28/2014 12:31 PM [employer] Inhaled Oxygen Concentration - - Weight 90.7 [...] approximately 13% higher for people identified as -Kuwaiti. eGFR by MDRD 82 > OR = [...] 46 U/L [facility] Comment: Test Performed at: [facility] [address] [place] [address] IVY DERAS DO,MPH Blood BLOOD SPECIMEN / Unknown 12/21/2020 11:20 AM CDT 12/21/2020 11:21 AM CDT Nico Jones MD LAB - CHEMISTRY JORGE A SAHNI Performing Organization Address City/State/[facility] Co de Phone Number [facility] [address] [place] [address] from Last 3 Months or Most Recently Relevant to Health Maintenance Care Teams Program Lead Relationship Specialty Start Date End Date Maryann Jiménez DO [address] [place] [address] PCP - General 09/07/22
--- OUTSIDE RECORDS SUMMARY | 2024-11-16 00:13 | XMS_ITS | Encounter Summary ---
Author Organization [facility] Address [address] [place] [place] [address] Care Team Providers Care Relish Maker Name Role Phone Syl Mcadams MD Primary Care Provider [phone] Maryann Jiménez DO Primary Care Provider [phone] Reason for Visit * Reason Onset Date Comments MEDICATION REFILL 08/21/2018 Encounter Details Date Type Department Care Team (Late st Contact Info) Description 08/21/2018 Refill [facility] [address] [place] [address] April Mendoza MD [address] [place] [address] MEDICATION REFILL Social History Tobacco Use Types [...] on filedocumented in this encounter Care Teams Relish Maker Relationship Specialty Start Date End Date Syl Mcadams MD [address] [place] [address] PCP - General 04/29/18 09/06/22 Maryann Jiménez DO [address] [address] [facility] [place] [id number] PCP - General 09/07/22 documented as of this encounter
--- OUTSIDE RECORDS SUMMARY | 2024-11-16 00:13 | XMS_ITS | Data Portability ---
Author Organization [email or web address], Main Office Address [address] [place] [address] Assessment No assessment recorded. Plan of Treatment Reminders Order Date Submit Date Provider Last Modified By Organization Details Last Modified Time Details Appointments None recorded. Lab None recorded. Referral endocrinolo gy referral 2022 023 Mary Beth oB MD, [address],, [facility], [place], [address], 3 12:03:44 Procedures None recorded. Surgeries None recorded. Imaging None recorded. Medication Orders atorvastati n 40 mg tablet 2022 023 [facility], [address] [place] [address], [address], 3 12:23:16 Trulicity 3 mg/0.5 mL subcutaneou s pen injector 2022 023 [facility], [address] [place] [address], [address], 3 12:23:15 Tresiba FlexTouch U-200 insulin 200 unit/mL (3 mL) subcutaneou s pen 2022 023 [facility], [address] [place] [address], [address], 3 12:23:17 metformin ER 500 mg tablet,exte nded release 24 hr 2022 023 [facility], [address] [place] [address], [address], 3 12:24:40 Jardiance 25 mg tablet 2022 023 [facility], [address] [place] [address], [address], 3 12:24:41 FreeStyle Lite Strips 2022 023 [facility], [address] [place] [address], [address], 3 12:24:41 glimepiride 4 mg tablet 2022 023 [facility], [address] [place] [address], [address], 3 12:24:40 Synthroid 100 mcg tablet 2022 023 [facility], [address] [place] [address], [address], 3 12:23:17 Patient TargetsNo targets recorded. Patient [...] diabe andrea for child jennifer. Not Available [address], [address], 04/07/2022 13:33:14 04/06/20 22 04/07/2022 TSH TSH 2.20 mIU/L 0.40-4 .50 normal Not Available [address], [address], 04/07/2022 13:33:14 04/06/20 22 04/07/2022 T4, FREE T4, free 1.2 NG/dL 0.8-1. 8 normal Not Available [address], [address], 04/07/2022 13:33:13 04/06/20 22 04/07/2022 ALBUM IN, RANDO M URINE W/CRE ATINI NE creatinine, random urine 108 mg/dL 20-320 normal Not Available [address], [address], 04/07/2022 13:33:13 04/06/20 22 04/07/2022 ALBUM IN, RANDO M URINE W/CRE ATINI NE albumin, urine 1.3 mg/dL see note: normal Refer ence Range : Refer ence Range Not estab lishe d Not Available [address], [address], 04/07/2022 13:33:13 04/06/20 22 04/07/2022 ALBUM IN, [...] ostic categ ory. Not Available [facility] [address] [place], [address], 04/07/2022 13:33:13 04/06/20 22 04/07/2022 COMPR EHENS [...] kdoqi /gfr% 5Fcal culat or Not Available [facility] [address] [address] [place], [address], 04/07/2022 13:33:12 04/06/20 22 04/07/2022 COMPR EHENS JADA METAB OLIC PANEL glucose 105 mg/dL 65-99 high Fasti ng refer ence inter mitchel For someo ne witho ut known diabe andrea, a gluco se value betwe en 100 and 125 mg/dL is consi stent with predi abete s and shoul d be confi rmed with a follo w-up test. Not Available [facility] [address] [address], [place], [address], 04/07/2022 13:33:12 04/06/20 22 04/07/2022 COMPR EHENS JADA METAB OLIC PANEL urea nitrogen (BUN) 16 mg/dL 7-25 normal Not Available [facility] [address] [place], [address], 04/07/2022 13:33:12 04/06/20 22 04/07/2022 COMPR EHENS JADA METAB OLIC PANEL creatinine 0.88 mg/dL 0.70-1 .28 normal Not Available [address], [address], 04/07/2022 13:33:12 04/06/20 22 04/07/2022 COMPR EHENS JADA METAB OLIC PANEL BUN/creatini ne ratio not applic able (calc ) 6-22 Not Available [address], [address], 04/07/2022 13:33:12 04/06/20 22 04/07/2022 COMPR EHENS JADA METAB OLIC PANEL sodium 141 mmol/ L 135-14 6 normal Not Available [address], [address], 04/07/2022 13:33:12 04/06/20 22 04/07/2022 COMPR EHENS JADA METAB OLIC PANEL potassium 3.3 mmol/ L 3.5-5. 3 low Not Available [address], [address], 04/07/2022 13:33:12 04/06/20 22 04/07/2022 COMPR EHENS JADA METAB OLIC PANEL chloride 100 mmol/ L 98-110 normal Not Available [address], [address], 04/07/2022 13:33:12 04/06/20 22 04/07/2022 COMPR EHENS JADA METAB OLIC PANEL carbon dioxide 31 mmol/ L 20-32 normal Not Available [address], [address], 04/07/2022 13:33:12 04/06/20 22 04/07/2022 COMPR EHENS JADA METAB OLIC PANEL calcium 9.3 mg/dL 8.6-10 .3 normal Not Available [address], [address], 04/07/2022 13:33:12 04/06/20 22 04/07/2022 COMPR EHENS JADA METAB OLIC PANEL protein, total 6.8 g/dL 6.1-8. 1 normal Not Available [address], [address], 04/07/2022 13:33:12 04/06/20 22 04/07/2022 COMPR EHENS JADA METAB OLIC PANEL albumin 4.1 g/dL 3.6-5. 1 normal Not Available [address], [address], 04/07/2022 13:33:12 04/06/20 22 04/07/2022 COMPR EHENS JADA METAB OLIC PANEL globulin 2.7 g/dL_ (calc ) 1.9-3. 7 normal Not Available [address], [address], 04/07/2022 13:33:12 04/06/20 22 04/07/2022 COMPR EHENS JADA METAB OLIC PANEL albumin/glob ulin ratio 1.5 (calc ) 1.0-2. 5 normal Not Available [address], [address], 04/07/2022 13:33:12 04/06/20 22 04/07/2022 COMPR EHENS JADA METAB OLIC PANEL bilirubin, total 0.7 mg/dL 0.2-1. 2 normal Not Available [address], [address], 04/07/2022 13:33:12 04/06/20 22 04/07/2022 COMPR EHENS JADA METAB OLIC PANEL alkaline phosphatase 68 U/L 35-144 normal Not Available [address], [address], 04/07/2022 13:33:12 04/06/20 22 04/07/2022 COMPR EHENS JADA METAB OLIC PANEL AST 13 U/L 10-35 normal Not Available [address], [address], 04/07/2022 13:33:12 04/06/20 22 04/07/2022 COMPR EHENS JADA METAB OLIC PANEL ALT 12 U/L 9-46 normal Not Available [address], [address], 04/07/2022 13:33:12 04/06/20 22 04/07/2022 LIPID PANEL , STAND DARRYL chol/HDLC ratio 3.3 (calc ) <5.0 normal Not Available [address], [address], 04/07/2022 13:33:12 04/06/20 22 04/07/2022 LIPID PANEL , STAND DARRYL cholesterol, total 105 mg/dL <200 normal Not Available [address], [address], 04/07/2022 13:33:12 04/06/20 22 04/07/2022 LIPID PANEL , STAND DARRYL HDL cholesterol 32 mg/dL > or = 40 low Not Available [address], [address], 04/07/2022 13:33:12 04/06/20 22 04/07/2022 LIPID PANEL , STAND DARRYL triglyceride s 102 mg/dL <150 normal Not Available [address], [address], 04/07/2022 13:33:12 04/06/20 22 04/07/2022 LIPID PANEL , STAND DARRYL LDL-choleste rol 54 mg/dL _(columba c) normal Refer ence range : <100 Aicha able range <100 mg/dL for prima ry preve ntion ; <70 mg/dL for patie nts with CHD or diabe tic patie nts with > or = 2 CHD risk facto rs. LDL-C is now calcu lated using the [facility] n-Hop kins josefinau celewayne n, which is a valid ated novel tammy centeno accur acy than the Fried raji equat ion in the estim ation of LDL-C . Lana de anda SS et al. ARISTIDES. 2013; 310(1 9): 2061- 2068 (http ://ed ucati on.Qu estDi Perio Sciencess. com/f aq/FA Q164) Not Available [facility] [address] [place], [address], 04/07/2022 13:33:12 04/06/20 22 04/07/2022 LIPID PANEL , STAND DARRYL non HDL cholesterol 73 mg/dL _(columba c) <130 normal For patie nts with diabe andrea plus 1 major ASCVD risk facto r, treat ing to a non-H DL-C goal of <100 mg/dL (LDL- C of <70 mg/dL ) is consi dered a thera peuti c optio n. Not Available [facility] [address] [address] , [place], [address], 04/07/2022 13:33:12 06/28/20 22 06/29/2022 HEMOG LOBIN [...] diabe andrea for child jennifer. Not Available [address], [address], 06/29/2022 19:15:30 06/28/20 22 06/29/2022 TSH+F REE T4 TSH 3.73 mIU/L 0.40-4 .50 normal Not Available [address], [address], 06/29/2022 19:15:30 06/28/20 22 06/29/2022 TSH+F REE T4 T4, free 1.2 NG/dL 0.8-1. 8 normal Not Available [address], [address], 06/29/2022 19:15:30 06/28/20 22 06/29/2022 T3, FREE T3, free 3.0 pg/mL 2.3-4. 2 normal Not Available [address], [address], 06/29/2022 19:15:29 06/28/20 22 06/29/2022 ALBUM IN, RANDO M URINE W/CRE ATINI NE creatinine, random urine 63 mg/dL 20-320 normal Not Available [address], [address], 06/29/2022 19:15:29 06/28/20 22 06/29/2022 ALBUM IN, RANDO M URINE W/CRE ATINI NE albumin, urine 0.6 mg/dL see note: normal Refer ence Range : Refer ence Range Not estab lishe d Not Available [address], [address], 06/29/2022 19:15:29 06/28/20 22 06/29/2022 ALBUM IN, [...] a diagn ostic categ ory. Not Available [facility] [address] [place], [address], 06/29/2022 19:15:29 06/28/20 22 06/29/2022 COMPR EHENS JADA METAB OLIC PANEL glucose 117 mg/dL 65-99 high Fasti ng refer ence inter mitchel For someo ne witho ut known diabe andrea, a gluco se value betwe en 100 and 125 mg/dL is consi stent with predi abete s and shoul d be confi rmed with a follo w-up test. Not Available [facility] [address] [address] [place], [address], 06/29/2022 19:15:28 06/28/20 22 06/29/2022 COMPR EHENS JADA METAB OLIC PANEL urea nitrogen (BUN) 10 mg/dL 7-25 normal Not Available [facility] [address] [address] [place], [address], 06/29/2022 19:15:28 06/28/20 22 06/29/2022 COMPR EHENS JADA METAB OLIC PANEL creatinine 0.88 mg/dL 0.70-1 .28 normal Not Available [facility] [address] [address] [place], [address], 06/29/2022 19:15:28 06/28/20 22 06/29/2022 COMPR EHENS JADA METAB OLIC PANEL eGFR 92 mL/mi n/1.7 3m2 > or = 60 normal The eGFR is based on the CKD-E PI 2020 equat ion. To calcu late the new eGFR from a previ ous Creat inine or Cysta hakan ferrsi, go to https ://francisco price.osman roth/westley hartmann s/ kdoqi /gfr% 5Fcal culat or Not Available [address] [address] [place], [address], 06/29/2022 19:15:28 06/28/20 22 06/29/2022 COMPR EHENS JADA METAB OLIC PANEL BUN/creatini ne ratio not applic able (calc ) 6-22 Not Available [address] [address] [place], [address], 06/29/2022 19:15:28 06/28/20 22 06/29/2022 COMPR EHENS JADA METAB OLIC PANEL sodium 142 mmol/ L 135-14 6 normal Not Available [address] [address] [place], [address], 06/29/2022 19:15:28 06/28/20 22 06/29/2022 COMPR EHENS JADA METAB OLIC PANEL potassium 3.6 mmol/ L 3.5-5. 3 normal Not Available [address] [address] [place], [address], 06/29/2022 19:15:28 06/28/20 22 06/29/2022 COMPR EHENS JADA METAB OLIC PANEL chloride 100 mmol/ L 98-110 normal Not Available [address] [address] [place], [address], 06/29/2022 19:15:28 06/28/20 22 06/29/2022 COMPR EHENS JADA METAB OLIC PANEL carbon dioxide 32 mmol/ L 20-32 normal Not Available [address] [address] [place], [address], 06/29/2022 19:15:28 06/28/20 22 06/29/2022 COMPR EHENS JADA METAB OLIC PANEL calcium 9.5 mg/dL 8.6-10 .3 normal Not Available [address], [address], 06/29/2022 19:15:28 06/28/20 22 06/29/2022 COMPR EHENS JADA METAB OLIC PANEL protein, total 7.1 g/dL 6.1-8. 1 normal Not Available [address], [address], 06/29/2022 19:15:28 06/28/20 22 06/29/2022 COMPR EHENS JADA METAB OLIC PANEL albumin 4.0 g/dL 3.6-5. 1 normal Not Available [address], [address], 06/29/2022 19:15:28 06/28/20 22 06/29/2022 COMPR EHENS JADA METAB OLIC PANEL globulin 3.1 g/dL_ (calc ) 1.9-3. 7 normal Not Available [address], [address], 06/29/2022 19:15:28 06/28/20 22 06/29/2022 COMPR EHENS JADA METAB OLIC PANEL albumin/glob ulin ratio 1.3 (calc ) 1.0-2. 5 normal Not Available [address], [address], 06/29/2022 19:15:28 06/28/20 22 06/29/2022 COMPR EHENS JADA METAB OLIC PANEL bilirubin, total 0.5 mg/dL 0.2-1. 2 normal Not Available [address], [address], 06/29/2022 19:15:28 06/28/20 22 06/29/2022 COMPR EHENS JADA METAB OLIC PANEL alkaline phosphatase 90 U/L 35-144 normal Not Available [facility] [address] [address] [place], [address], 06/29/2022 19:15:28 06/28/20 22 06/29/2022 COMPR EHENS JADA METAB OLIC PANEL AST 15 U/L 10-35 normal Not Available [address] [address] [place], [address], 06/29/2022 19:15:28 06/28/20 22 06/29/2022 COMPR EHENS JADA METAB OLIC PANEL ALT 18 U/L 9-46 normal Not Available [address] [address] [place], [address], 06/29/2022 19:15:28 06/28/20 22 06/29/2022 LIPID PANEL , STAND DARRYL non HDL cholesterol 105 mg/dL _(columba c) <130 normal For patie nts with diabe andrea plus 1 major ASCVD risk facto r, treat ing to a non-H DL-C goal of <100 mg/dL (LDL- C of <70 mg/dL ) is consi hoa vargaso n. Not Available [address] [address] [place], [address], 06/29/2022 19:15:28 06/28/20 22 06/29/2022 LIPID PANEL , STAND DARRYL cholesterol, total 138 mg/dL <200 normal Not Available [address] [address] [place], [address], 06/29/2022 19:15:28 06/28/20 22 06/29/2022 LIPID PANEL , STAND DARRYL HDL cholesterol 33 mg/dL > or = 40 low Not Available [address] [address] [place], [address], 06/29/2022 19:15:28 06/28/20 22 06/29/2022 LIPID PANEL , STAND DARRYL triglyceride s 162 mg/dL <150 high Not Available [facility] [address] [place], [address], 06/29/2022 19:15:28 06/28/20 22 06/29/2022 LIPID PANEL [...] 2061- 2068 (http ://ed ati on.Qu [employer]. com/f aq/FA Q164) Not Available [facility] [address] [address] , [place], [address], 06/29/2022 19:15:28 06/28/2006/29/2022 LIPID PANEL , STAND DARRYL chol/HDLC ratio 4.2 (calc ) <5.0 normal Not Available [facility] [address] [place], [address], 06/29/2022 19:15:28 09/17/19 23 09/18/2022 HEMOG LOBIN [...] for child jennifer. Not Available [facility] [address], [address], 09/18/2022 13:59:03 09/17/19 23 09/18/2022 T3, FREE T3, free 3.1 pg/mL 2.3-4. 2 normal Not Available [facility] [address], [address], 09/18/2022 13:59:02 09/17/19 23 09/18/2022 TSH TSH 6.04 mIU/L 0.40-4 .50 high Not Available [facility] [address], [address], 09/18/2022 13:59:02 09/17/19 23 09/18/2022 T4, FREE T4, free 1.2 NG/dL 0.8-1. 8 normal Not Available [facility] [address], [address], 09/18/2022 13:59:01 09/17/19 23 09/18/2022 CBC (INCL UDES DIFF/ PLT) hemoglobin 16.3 g/dL 13.2-1 7.1 normal Not Available [facility] [address], [address], 09/18/2022 13:59:01 09/17/19 23 09/18/2022 CBC (INCL UDES DIFF/ PLT) white blood cell count 12.2 thous and/u L 3.8-10 .8 high Not Available [facility] [address], [address], 09/18/2022 13:59:09/17/19 23 09/18/2022 CBC (INCL UDES DIFF/ PLT) red blood cell count 5.75 destini on/uL 4.20-5 .80 normal Not Available [address], [address], 09/18/2022 13:59:01 09/17/19 23 09/18/2022 CBC (INCL UDES DIFF/ PLT) hematocrit 48.5 % 38.5-5 0.0 normal Not Available [address], [address], 09/18/2022 13:59:01 09/17/19 23 09/18/2022 CBC (INCL UDES DIFF/ PLT) MCV 84.3 fL 80.0-1 00.0 normal Not Available [address], [address], 09/18/2022 13:59:01 09/17/19 23 09/18/2022 CBC (INCL UDES DIFF/ PLT) MCH 28.3 pg 27.0-3 3.0 normal Not Available [address], [address], 09/18/2022 13:59:01 09/17/19 23 09/18/2022 CBC (INCL UDES DIFF/ PLT) MCHC 33.6 g/dL 32.0-3 6.0 normal Not Available [address], [address], 09/18/2022 13:59:01 09/17/19 23 09/18/2022 CBC (INCL UDES DIFF/ PLT) RDW 13.0 % 11.0-1 5.0 normal Not Available [address], [address], 09/18/2022 13:59:01 09/17/19 23 09/18/2022 CBC (INCL UDES DIFF/ PLT) platelet count 285 thous and/u L 140-40 0 normal Not Available [facility] [place] [address] [place], [address], 09/18/2022 13:59:01 09/17/19 23 09/18/2022 CBC (INCL UDES DIFF/ PLT) MPV 9.4 fL 7.5-12 .5 normal Not Available [address], [address], 09/18/2022 13:59:01 09/17/19 23 09/18/2022 CBC (INCL UDES DIFF/ PLT) absolute neutrophils 8296 cells /uL 1500-7 800 high Not Available [facility] [address], [address], 09/18/2022 13:59:01 09/17/19 23 09/18/2022 CBC (INCL UDES DIFF/ PLT) absolute lymphocytes 2940 cells /uL 850-39 00 normal Not Available [address], [address], 09/18/2022 13:59:01 09/17/19 23 09/18/2022 CBC (INCL UDES DIFF/ PLT) absolute monocytes 817 cells /uL 200-95 0 normal Not Available [address], [address], 09/18/2022 13:59:01 09/17/19 23 09/18/2022 CBC (INCL UDES DIFF/ PLT) absolute eosinophils 73 cells /uL 15-500 normal Not Available [facility] [address], [address], 09/18/2022 13:59:01 09/17/19 23 09/18/2022 CBC (INCL UDES DIFF/ PLT) absolute basophils 73 cells /uL 0-200 normal Not Available [facility] [address], [address], 09/18/2022 13:59:01 09/17/19 23 09/18/2022 CBC (INCL UDES DIFF/ PLT) neutrophils 68 % normal Not Available [address], [address], 09/18/2022 13:59:01 09/17/19 23 09/18/2022 CBC (INCL UDES DIFF/ PLT) lymphocytes 24.1 % normal Not Available [address], [address], 09/18/2022 13:59:01 09/17/19 23 09/18/2022 CBC (INCL UDES DIFF/ PLT) monocytes 6.7 % normal Not Available [address], [address], 09/18/2022 13:59:01 09/17/19 23 09/18/2022 CBC (INCL UDES DIFF/ PLT) eosinophils 0.6 % normal Not Available [address], [address], 09/18/2022 13:59:01 09/17/19 23 09/18/2022 CBC (INCL UDES DIFF/ PLT) basophils 0.6 % normal Not Available [address], [address], 09/18/2022 13:59:01 09/17/19 23 09/18/2022 ALBUM IN, RANDO M URINE W/CRE ATINI NE creatinine, random urine 67 mg/dL 20-320 normal Not Available [address], [address], 09/18/2022 13:59:00 09/17/19 23 09/18/2022 ALBUM IN, RANDO M URINE W/CRE ATINI NE albumin, urine 1.1 mg/dL see note: normal Refer ence Range : Refer ence Range Not estab lishe d Not Available [address], [address], 09/18/2022 13:59:00 09/17/19 23 09/18/2022 ALBUM IN, [...] a diagn ostic categ ory. Not Available [address] [address] [place], [address], 09/18/2022 13:59:00 09/17/19 23 09/18/2022 LIPID PANEL , STAND DARRYL chol/HDLC ratio 3.5 (calc ) <5.0 normal Not Available [address] [place], [address], 09/18/2022 13:59:00 09/17/19 23 09/18/2022 LIPID PANEL , STAND DARRYL cholesterol, total 138 mg/dL <200 normal Not Available [address] [address] [place], [address], 09/18/2022 13:59:00 09/17/19 23 09/18/2022 LIPID PANEL , STAND DARRYL HDL cholesterol 40 mg/dL > or = 40 normal Not Available [facility] [address] [address] [place], [address], 09/18/2022 13:59:00 09/17/19 23 09/18/2022 LIPID PANEL , STAND DARRYL triglyceride s 156 mg/dL <150 high Not Available [address] [place], [address], 09/18/2022 13:59:00 09/17/19 23 09/18/2022 LIPID PANEL [...] 9): 2061- 2068 (http ://ed ucati on.Qu [employer],. [employer]/f aq/FA Q164) Not Available [address] [address] [place], [address], 09/18/2022 13:59:00 09/17/19 23 09/18/2022 LIPID PANEL , STAND DARRYL non HDL cholesterol 98 mg/dL _(columba c) <130 normal For patie nts with diabe andrea plus 1 major ASCVD risk facto r, treat ing to a non-H DL-C goal of <100 mg/dL (LDL- C of <70 mg/dL ) is consi dered a therisacc jacobo optio n. Not Available [address] [address] [address] , [place], [address], 09/18/2022 13:59:00 11/17/19 23 11/19/2022 TESTO STERO NE, FREE, BIOAV AILAB LE AND TOTAL , MS albumin 4.2 g/dL 3.6-5. 1 Not Available [facility] [address] [place], [address], 11/19/2022 15:09:10 11/17/19 23 11/19/2022 TESTO STERO NE, FREE, BIOAV AILAB LE AND TOTAL , MS sex hormone binding globulin 59.3 nmol/ L 22-77 Not Available [facility] [address] [address] [place], [address], 11/19/2022 15:09:10 11/17/19 23 11/19/2022 TESTO STERO NE, FREE, BIOAV AILAB LE AND TOTAL , MS testosterone , free 41.7 pg/mL 6.0-73 .0 Not Available [facility] [address] [address] [address] , [place], [address], 11/19/2022 15:09:10 11/17/19 23 11/19/2022 TESTO STERO NE, FREE, BIOAV AILAB LE AND TOTAL , MS testosterone ,bioavailabl e 80.2 NG/dL 15.0-1 50.0 Not Available [facility] [address] [address] [place], [address], 11/19/2022 15:09:10 11/17/19 23 11/19/2022 TESTO STERO NE, FREE, BIOAV AILAB LE AND TOTAL , MS testosterone , total, MS 512 NG/dL 250-11 00 For addit ional oscar emjia e refer to https ://ed ucati on.qu estMajorWeb, LLC. [employer]/f aq/FA Q165 (This link is being provi ded for infor fara nal/e ducat ional purpo ses only. ) (Note ) This test was devel oped and its sloan tical perfo rmanc e vance cteri stics have been deter mined by [employer] shantal. It has not been clear ed or appro lovely by the FDA. This assay has been valid ated pursu ant to the CLIA regul ation s and is used for clini columba purpo ses. KATIA de anda [address] [facility] [address] [place] [address] [phone] Gorge guadalupe MD Not Available [facility] [address] [address] [place], [address], 11/19/2022 15:09:10 02/09/20 23 02/09/2023 LIPID PANEL , STAND DARRYL cholesterol, total 98 mg/dL <200 normal Not Available [address], [address], 02/09/2023 10:24:35 02/09/20 23 02/09/2023 LIPID PANEL , STAND DARRYL HDL cholesterol 27 mg/dL > or = 40 low Not Available [address], [address], 02/09/2023 10:24:35 02/09/20 23 02/09/2023 LIPID PANEL , STAND DARRYL triglyceride s 102 mg/dL <150 normal Not Available [address], [address], 02/09/2023 10:24:35 02/09/20 23 02/09/2023 LIPID PANEL [...] 2061- 2068 (http ://ed ucati on.Qu estDi Perio Sciencess. com/f aq/FA Q164) Not Available [address], [address], 02/09/2023 10:24:35 02/09/20 23 02/09/2023 LIPID PANEL , STAND DARRYL chol/HDLC ratio 3.6 (calc ) <5.0 normal Not Available [address] [place], [address], 02/09/2023 10:24:35 02/09/20 23 02/09/2023 LIPID PANEL , STAND DARRYL non HDL cholesterol 71 mg/dL _(columba c) <130 normal For patie nts with diabe andrea plus 1 major ASCVD risk facto r, treat ing to a non-H DL-C goal of <100 mg/dL (LDL- C of <70 mg/dL ) is consi dered a thera peuti c optio n. Not Available [address], [address], 02/09/2023 10:24:35 02/09/2002/09/2023 COMPR EHENS JADA METAB OLIC PANEL glucose 109 mg/dL 65-99 high Fasti ng refer ence inter mitchel For someo ne witho ut known diabe andrea, a gluco se value betwe en 100 and 125 mg/dL is consi stent with predi abete s and shoul d be confi rmed with a follo w-up test. Not Available [facility] [address], [address], 02/09/2023 10:24:36 02/09/20 23 02/09/2023 COMPR EHENS JADA METAB OLIC PANEL urea nitrogen (BUN) 18 mg/dL 7-25 normal Not Available [facility] [employer] [address], [address], 02/09/2023 10:24:36 02/09/2002/09/2023 COMPR EHENS JADA METAB OLIC PANEL creatinine 0.82 mg/dL 0.70-1 .28 normal Not Available [facility] [address], [address], 02/09/2023 10:24:36 02/09/20 23 02/09/2023 COMPR EHENS [...] kdoqi /gfr% 5Fcal culat or Not Available [address] [address] [place], [address], 02/09/2023 10:24:36 02/09/20 23 02/09/2023 COMPR EHENS JADA METAB OLIC PANEL BUN/creatini ne ratio NOT APPLIC ABLE (calc ) 6-22 Not Available [address], [address], 02/09/2023 10:24:36 02/09/20 23 02/09/2023 COMPR EHENS JADA METAB OLIC PANEL sodium 142 mmol/ L 135-14 6 normal Not Available [address], [address], 02/09/2023 10:24:36 02/09/20 23 02/09/2023 COMPR EHENS JADA METAB OLIC PANEL potassium 3.7 mmol/ L 3.5-5. 3 normal Not Available [address], [address], 02/09/2023 10:24:36 02/09/20 23 02/09/2023 COMPR EHENS JADA METAB OLIC PANEL chloride 101 mmol/ L 98-110 normal Not Available [address], [address], 02/09/2023 10:24:36 02/09/20 23 02/09/2023 COMPR EHENS JADA METAB OLIC PANEL carbon dioxide 29 mmol/ L 20-32 normal Not Available [address], [address], 02/09/2023 10:24:36 02/09/20 23 02/09/2023 COMPR EHENS JADA METAB OLIC PANEL calcium 9.3 mg/dL 8.6-10 .3 normal Not Available [address], [address], 02/09/2023 10:24:36 02/09/20 23 02/09/2023 COMPR EHENS JADA METAB OLIC PANEL protein, total 6.7 g/dL 6.1-8. 1 normal Not Available [address], [address], 02/09/2023 10:24:36 02/09/20 23 02/09/2023 COMPR EHENS JADA METAB OLIC PANEL albumin 4.0 g/dL 3.6-5. 1 normal Not Available [address], [address], 02/09/2023 10:24:36 02/09/20 23 02/09/2023 COMPR EHENS JADA METAB OLIC PANEL globulin 2.7 g/dL_ (calc ) 1.9-3. 7 normal Not Available [address], [address], 02/09/2023 10:24:36 02/09/20 23 02/09/2023 COMPR EHENS JADA METAB OLIC PANEL albumin/glob ulin ratio 1.5 (calc ) 1.0-2. 5 normal Not Available [address], [address], 02/09/2023 10:24:36 02/09/20 23 02/09/2023 COMPR EHENS JADA METAB OLIC PANEL bilirubin, total 0.6 mg/dL 0.2-1. 2 normal Not Available [address], [address], 02/09/2023 10:24:36 02/09/20 23 02/09/2023 COMPR EHENS JADA METAB OLIC PANEL alkaline phosphatase 78 U/L 35-144 normal Not Available [address] [address] [place], [address], 02/09/2023 10:24:36 02/09/20 23 02/09/2023 COMPR EHENS JADA METAB OLIC PANEL AST 13 U/L 10-35 normal Not Available [address] [address] [place], [address], 02/09/2023 10:24:36 02/09/20 23 02/09/2023 COMPR EHENS JADA METAB OLIC PANEL ALT 13 U/L 9-46 normal Not Available [address] [address] [place], [address], 02/09/2023 10:24:36 02/09/20 23 02/09/2023 ALBUM IN, RANDO M URINE W/CRE ATINI NE creatinine, random urine 110 mg/dL 20-320 normal Not Available [address] [address] [place], [address], 02/09/2023 10:24:37 02/09/20 23 02/09/2023 ALBUM IN, RANDO M URINE W/CRE ATINI NE albumin, urine 1.4 mg/dL see note: normal Refer ence Range : Refer ence Range Not estab lishe d Not Available [address] [address] [place], [address], 02/09/2023 10:24:37 02/09/20 23 02/09/2023 ALBUM IN, [...] a diagn ostic categ ory. Not Available [address], [address], 02/09/2023 10:24:37 02/09/20 23 02/09/2023 CBC (INCL UDES DIFF/ PLT) white blood cell count 9.5 thous and/u L 3.8-10 .8 normal Not Available [address], [address], 02/09/2023 10:24:37 02/09/2002/09/2023 CBC (INCL UDES DIFF/ PLT) red blood cell count 5.50 destini on/uL 4.20-5 .80 normal Not Available [address], [address], 02/09/2023 10:24:37 02/09/20 23 02/09/2023 CBC (INCL UDES DIFF/ PLT) hemoglobin 15.5 g/dL 13.2-1 7.1 normal Not Available [address], [address], 02/09/2023 10:24:37 02/09/20 23 02/09/2023 CBC (INCL UDES DIFF/ PLT) hematocrit 45.8 % 38.5-5 0.0 normal Not Available [address], [address], 02/09/2023 10:24:37 02/09/20 23 02/09/2023 CBC (INCL UDES DIFF/ PLT) MCV 83.3 fL 80.0-1 00.0 normal Not Available [address], [address], 02/09/2023 10:24:37 02/09/20 23 02/09/2023 CBC (INCL UDES DIFF/ PLT) MCH 28.2 pg 27.0-3 3.0 normal Not Available [address], [address], 02/09/2023 10:24:37 02/09/20 23 02/09/2023 CBC (INCL UDES DIFF/ PLT) MCHC 33.8 g/dL 32.0-3 6.0 normal Not Available [address], [address], 02/09/2023 10:24:37 02/09/20 23 02/09/2023 CBC (INCL UDES DIFF/ PLT) RDW 13.1 % 11.0-1 5.0 normal Not Available [address], [address], 02/09/2023 10:24:37 02/09/20 23 02/09/2023 CBC (INCL UDES DIFF/ PLT) platelet count 232 thous and/u L 140-40 0 normal Not Available [address], [address], 02/09/2023 10:24:37 02/09/2002/09/2023 CBC (INCL UDES DIFF/ PLT) MPV 8.8 fL 7.5-12 .5 normal Not Available [address], [address], 02/09/2023 10:24:37 02/09/20 23 02/09/2023 CBC (INCL UDES DIFF/ PLT) absolute neutrophils 6251 cells /uL 1500-7 800 normal Not Available [address], [address], 02/09/2023 10:24:37 02/09/2002/09/2023 CBC (INCL UDES DIFF/ PLT) absolute lymphocytes 2290 cells /uL 850-39 00 normal Not Available [address], [address], 02/09/2023 10:24:37 02/09/20 23 02/09/2023 CBC (INCL UDES DIFF/ PLT) absolute monocytes 789 cells /uL 200-95 0 normal Not Available [address], [address], 02/09/2023 10:24:37 02/09/20 23 02/09/2023 CBC (INCL UDES DIFF/ PLT) absolute eosinophils 114 cells /uL 15-500 normal Not Available [address], [address], 02/09/2023 10:24:37 02/09/20 23 02/09/2023 CBC (INCL UDES DIFF/ PLT) absolute basophils 57 cells /uL 0-200 normal Not Available [address], [address], 02/09/2023 10:24:37 02/09/20 23 02/09/2023 CBC (INCL UDES DIFF/ PLT) neutrophils 65.8 % normal Not Available [address], [address], 02/09/2023 10:24:37 02/09/20 23 02/09/2023 CBC (INCL UDES DIFF/ PLT) lymphocytes 24.1 % normal Not Available [address], [address], 02/09/2023 10:24:37 02/09/20 23 02/09/2023 CBC (INCL UDES DIFF/ PLT) monocytes 8.3 % normal Not Available [facility] [address], [address], 02/09/2023 10:24:37 02/09/20 23 02/09/2023 CBC (INCL UDES DIFF/ PLT) eosinophils 1.2 % normal Not Available [address], [address], 02/09/2023 10:24:37 02/09/20 23 02/09/2023 CBC (INCL UDES DIFF/ PLT) basophils 0.6 % normal Not Available [employer] [address], [address], 02/09/2023 10:24:37 02/09/20 23 02/09/2023 T4, FREE T4, free 1.2 NG/dL 0.8-1. 8 normal Not Available [employer] [address], [address], 02/09/2023 10:24:38 02/09/2002/09/2023 TSH TSH 2.42 mIU/L 0.40-4 .50 normal Not Available [address], [address], 02/09/2023 10:24:38 02/09/2002/09/2023 VITAM IN B12/F OLATE [...] pg/mL will have sympt oms. Not Available [address], [address], 02/09/2023 10:24:39 02/09/2002/09/2023 VITAM IN B12/F OLATE , SERUM PANEL folate, serum >24.0 NG/mL normal Refer ence Range Low: <3.4 Borde rline : 3.4-5 .4 Karin l: >5.4 Not Available [employer] [address], [address], 02/09/2023 10:24:39 02/09/20 23 02/09/2023 SEX HORMO NE GINA NG GLOBU PEG sex hormone binding globulin 58 nmol/ L 22-77 normal Not Available [facility] [address] [place], [address], 02/09/2023 10:24:40 02/09/2002/09/2023 T3, FREE T3, free 3.5 pg/mL 2.3-4. 2 normal Not Available [facility] [address] [address] , [place], [address], 02/09/2023 10:24:40 02/09/2002/09/2023 HEMOG LOBIN A1C hemoglobin [...] for child jennifer. Not Available [facility] [address] [place], [address], 02/09/2023 10:24:41 05/07/2005/10/2023 TESTO STERO NE, FREE, BIOAV AILAB LE AND TOTAL , MS albumin 4.1 g/dL 3.6-5. 1 Not Available [facility] [address] [place], [address], 05/10/2023 14:35:40 05/07/20 23 05/10/2023 TESTO STERO NE, FREE, BIOAV AILAB LE AND TOTAL , MS sex hormone binding globulin 55.7 nmol/ L 22-77 Not Available [address], [address], 05/10/2023 14:35:40 05/07/20 23 05/10/2023 TESTO STERO NE, FREE, BIOAV AILAB LE AND TOTAL , MS testosterone , free 44.2 pg/mL 6.0-73 .0 Not Available [address], [address], 05/10/2023 14:35:40 05/07/2005/10/2023 TESTO STERO NE, FREE, BIOAV AILAB LE AND TOTAL , MS testosterone ,bioavailabl e 83.2 NG/dL 15.0-1 50.0 Not Available [address], [address], 05/10/2023 14:35:40 05/07/2005/10/2023 TESTO STERO NE, FREE, BIOAV AILAB LE AND TOTAL , MS testosterone , total, MS 510 NG/dL 250-11 00 For addit ional claytonr oscar marroquin e refer to https ://ed ucati on.qu stalney [employer]. [employer]/f aq/FA Q165 (This link is being provi ded for infor fara nal/e ducat ional purpo ses only. ) (Note ) This test was devel oped and its sloan tical perfo rmanc e vance cteri stics have been deter mined by [employer]. It has not been clear ed or appro lovely by the FDA. This assay has been valid ated pursu ant to the CLIA regul ation s and is used for clini columba purpo ses. MDF med fuswayne n [address] [facility] [address] [facility] [address] [phone] Nico marcial MD Not Available [facility] [address] [place], [address], 05/10/2023 14:35:40 05/07/20 23 05/10/2023 LIPID PANEL , STAND DARRYL cholesterol, total 113 mg/dL <200 normal Not Available [facility] [address] [place], [address], 05/10/2023 14:35:41 05/07/20 23 05/10/2023 LIPID PANEL , STAND DARRYL HDL cholesterol 29 mg/dL > or = 40 low Not Available [facility] [address] [address] [place], [address], 05/10/2023 14:35:41 05/07/20 23 05/10/2023 LIPID PANEL , STAND DARRYL triglyceride s 148 mg/dL <150 normal Not Available [facility] [address] [address] [place], [address], 05/10/2023 14:35:41 05/07/20 23 05/10/2023 LIPID PANEL [...] com/f aq/FA Q164) Not Available [facility] [address] [place], [address], 05/10/2023 14:35:41 05/07/20 23 05/10/2023 LIPID PANEL , STAND DARRYL chol/HDLC ratio 3.9 (calc ) <5.0 normal Not Available [address], [address], 05/10/2023 14:35:41 05/07/20 23 05/10/2023 LIPID PANEL , STAND DARRYL non HDL cholesterol 84 mg/dL _(columba c) <130 normal For patie nts with diabe andrea plus 1 major ASCVD risk facto r, treat ing to a non-H DL-C goal of <100 mg/dL (LDL- C of <70 mg/dL ) is consi hoa jacobo optio n. Not Available [address], [address], 05/10/2023 14:35:41 05/07/2005/10/2023 COMPR EHENS JADA METAB OLIC PANEL glucose 162 mg/dL 65-99 high Fasti ng refer ence inter mitchel For someo ne witho ut known diabe andrea, a gluco se value >125 mg/dL indic ates that they may have diabe andrea and this shoul d be confi rmed with a follo w-up test. Not Available [address], [address], 05/10/2023 14:35:42 05/07/2005/10/2023 COMPR EHENS JADA METAB OLIC PANEL urea nitrogen (BUN) 14 mg/dL 7-25 normal Not Available [facility] [address] [address] [place], [address], 05/10/2023 14:35:42 05/07/2005/10/2023 COMPR EHENS JADA METAB OLIC PANEL creatinine 0.95 mg/dL 0.70-1 .28 normal Not Available [facility] [address] [address] [place], [address], 05/10/2023 14:35:42 05/07/20 23 05/10/2023 COMPR EHENS JADA METAB OLIC PANEL eGFR 85 mL/mi n/1.7 3m2 > or = 60 normal Not Available [address], [address], 05/10/2023 14:35:42 05/07/20 23 05/10/2023 COMPR EHENS JADA METAB OLIC PANEL BUN/creatini ne ratio SEE NOTE: (calc ) 6-22 Not Repor lino: BUN and Creat inine are withi n refer ence range . Not Available [address], [address], 05/10/2023 14:35:42 05/07/20 23 05/10/2023 COMPR EHENS JADA METAB OLIC PANEL sodium 140 mmol/ L 135-14 6 normal Not Available [address], [address], 05/10/2023 14:35:42 05/07/20 23 05/10/2023 COMPR EHENS JADA METAB OLIC PANEL potassium 3.8 mmol/ L 3.5-5. 3 normal Not Available [address], [address], 05/10/2023 14:35:42 05/07/20 23 05/10/2023 COMPR EHENS JADA METAB OLIC PANEL chloride 101 mmol/ L 98-110 normal Not Available [address], [address], 05/10/2023 14:35:42 05/07/20 23 05/10/2023 COMPR EHENS JADA METAB OLIC PANEL carbon dioxide 31 mmol/ L 20-32 normal Not Available [address], [address], 05/10/2023 14:35:42 05/07/20 23 05/10/2023 COMPR EHENS JADA METAB OLIC PANEL calcium 9.5 mg/dL 8.6-10 .3 normal Not Available [address], [address], 05/10/2023 14:35:42 05/07/20 23 05/10/2023 COMPR EHENS JADA METAB OLIC PANEL protein, total 6.8 g/dL 6.1-8. 1 normal Not Available [address], [address], 05/10/2023 14:35:42 05/07/20 23 05/10/2023 COMPR EHENS JADA METAB OLIC PANEL albumin 4.2 g/dL 3.6-5. 1 normal Not Available [address], [address], 05/10/2023 14:35:42 05/07/20 23 05/10/2023 COMPR EHENS JADA METAB OLIC PANEL globulin 2.6 g/dL_ (calc ) 1.9-3. 7 normal Not Available [address], [address], 05/10/2023 14:35:42 05/07/20 23 05/10/2023 COMPR EHENS JADA METAB OLIC PANEL albumin/glob ulin ratio 1.6 (calc ) 1.0-2. 5 normal Not Available [address], [address], 05/10/2023 14:35:42 05/07/20 23 05/10/2023 COMPR EHENS JADA METAB OLIC PANEL bilirubin, total 0.5 mg/dL 0.2-1. 2 normal Not Available [address], [address], 05/10/2023 14:35:42 05/07/20 23 05/10/2023 COMPR EHENS JADA METAB OLIC PANEL alkaline phosphatase 88 U/L 35-144 normal Not Available [address], [address], 05/10/2023 14:35:42 05/07/20 23 05/10/2023 COMPR EHENS JADA METAB OLIC PANEL AST 14 U/L 10-35 normal Not Available [address] [address] [place], [address], 05/10/2023 14:35:42 05/07/20 23 05/10/2023 COMPR EHENS JADA METAB OLIC PANEL ALT 18 U/L 9-46 normal Not Available [address] [address] [place], [address], 05/10/2023 14:35:42 05/07/20 23 05/10/2023 ALBUM IN, RANDO M URINE W/CRE ATINI NE creatinine, random urine 66 mg/dL 20-320 normal Not Available [address] [address] [place], [address], 05/10/2023 14:35:42 05/07/20 23 05/10/2023 ALBUM IN, RANDO M URINE W/CRE ATINI NE albumin, urine 0.8 mg/dL see note: normal Refer ence Range : Refer ence Range Not estab lishe d Not Available [address] [address] [place], [address], 05/10/2023 14:35:42 05/07/20 23 05/10/2023 ALBUM IN, [...] a diagn ostic categ ory. Not Available [address], [address], 05/10/2023 14:35:42 05/07/20 23 05/10/2023 CBC (INCL UDES DIFF/ PLT) white blood cell count 8.2 thous and/u L 3.8-10 .8 normal Not Available [address], [address], 05/10/2023 14:35:43 05/07/2005/10/2023 CBC (INCL UDES DIFF/ PLT) red blood cell count 5.44 destini on/uL 4.20-5 .80 normal Not Available [address], [address], 05/10/2023 14:35:43 05/07/20 23 05/10/2023 CBC (INCL UDES DIFF/ PLT) hemoglobin 16.3 g/dL 13.2-1 7.1 normal Not Available [address], [address], 05/10/2023 14:35:43 05/07/2005/10/2023 CBC (INCL UDES DIFF/ PLT) hematocrit 46.0 % 38.5-5 0.0 normal Not Available [address], [address], 05/10/2023 14:35:43 05/07/20 23 05/10/2023 CBC (INCL UDES DIFF/ PLT) MCV 84.6 fL 80.0-1 00.0 normal Not Available [address], [address], 05/10/2023 14:35:43 05/07/20 23 05/10/2023 CBC (INCL UDES DIFF/ PLT) MCH 30.0 pg 27.0-3 3.0 normal Not Available [facility] [address] [address], [place], [address], 05/10/2023 14:35:43 05/07/2005/10/2023 CBC (INCL UDES DIFF/ PLT) MCHC 35.4 g/dL 32.0-3 6.0 normal Not Available [address], [address], 05/10/2023 14:35:43 05/07/20 23 05/10/2023 CBC (INCL UDES DIFF/ PLT) RDW 13.2 % 11.0-1 5.0 normal Not Available [address], [address], 05/10/2023 14:35:43 05/07/20 23 05/10/2023 CBC (INCL UDES DIFF/ PLT) platelet count 257 thous and/u L 140-40 0 normal Not Available [address], [address], 05/10/2023 14:35:43 05/07/20 23 05/10/2023 CBC (INCL UDES DIFF/ PLT) MPV 8.9 fL 7.5-12 .5 normal Not Available [address], [address], 05/10/2023 14:35:43 05/07/2005/10/2023 CBC (INCL UDES DIFF/ PLT) absolute neutrophils 4879 cells /uL 1500-7 800 normal Not Available [address], [address], 05/10/2023 14:35:43 05/07/2005/10/2023 CBC (INCL UDES DIFF/ PLT) absolute lymphocytes 2378 cells /uL 850-39 00 normal Not Available [address], [address], 05/10/2023 14:35:43 05/07/20 23 05/10/2023 CBC (INCL UDES DIFF/ PLT) absolute monocytes 763 cells /uL 200-95 0 normal Not Available [address], [address], 05/10/2023 14:35:43 05/07/20 23 05/10/2023 CBC (INCL UDES DIFF/ PLT) absolute eosinophils 123 cells /uL 15-500 normal Not Available [facility] [address], [address], 05/10/2023 14:35:43 05/07/20 23 05/10/2023 CBC (INCL UDES DIFF/ PLT) absolute basophils 57 cells /uL 0-200 normal Not Available [facility] [address], [address], 05/10/2023 14:35:43 05/07/20 23 05/10/2023 CBC (INCL UDES DIFF/ PLT) neutrophils 59.5 % normal Not Available [facility] [address], [address], 05/10/2023 14:35:43 05/07/20 23 05/10/2023 CBC (INCL UDES DIFF/ PLT) lymphocytes 29.0 % normal Not Available [facility] [address], [address], 05/10/2023 14:35:43 05/07/20 23 05/10/2023 CBC (INCL UDES DIFF/ PLT) monocytes 9.3 % normal Not Available [facility] [address], [address], 05/10/2023 14:35:43 05/07/20 23 05/10/2023 CBC (INCL UDES DIFF/ PLT) eosinophils 1.5 % normal Not Available [facility] [address], [address], 05/10/2023 14:35:43 05/07/20 23 05/10/2023 CBC (INCL UDES DIFF/ PLT) basophils 0.7 % normal Not Available [address], [address], 05/10/2023 14:35:43 05/07/2005/10/2023 VITAM IN B12 vitamin B12 560 pg/mL 200-11 00 normal Not Available [address], [address], 05/10/2023 14:35:44 05/07/2005/10/2023 T3, FREE T3, free 3.5 pg/mL 2.3-4. 2 normal Not Available [address], [address], 05/10/2023 14:35:44 05/07/20 23 05/10/2023 TSH+F REE T4 TSH 2.64 mIU/L 0.40-4 .50 normal Not Available [address], [address], 05/10/2023 14:35:45 05/07/2005/10/2023 TSH+F REE T4 T4, free 1.0 NG/dL 0.8-1. 8 normal Not Available [address], [address], 05/10/2023 14:35:45 05/07/2005/10/2023 HEMOG LOBIN A1C hemoglobin [...] diabe andrea for child jennifer. Not Available [employer] [address] [address] [address] , [place], [address], 05/10/2023 14:35:46 Result Notes None recorded. Problems Name Problem SNOMED Code Status Onset Date Resolution Date Notes Provider Name and Address Organization Details Recorded Time Dyslipidemia 593596038 Active 2021 Not Available [facility] 3 23:30:01 Uncontrolled type 2 diabetes mellitus 396069553 Active 2021 Not Available [facility] 3 23:30:01 Fatigue 60704134 Active 2022 Tia Braun MD [address] [facility] [place], [address], [address] , [facility] [employer] 3 14:13:53 Well controlled type 2 diabetes mellitus 366234035 Active 2022 Tia Braun MD [address] [facility] [place], [address] [address], [place], [address] , [employer] [facility] 3 12:35:24 Hypothyroidis m 10583829 Active 2022 NIHARIKA Ervin null, [employer] [facility] [email or web address] [facility] 3 17:26:46 Vitamin B12 deficiency (non anemic) 18575915 Active 2022 Sarah Wagner null, [employer] [facility] [email or web address] [facility] 3 09:36:03 Problem Notes None recorded. Procedures Surgical History Date Name Laterality Status Provider Name and Address Organization Details Recorded Time Colonoscopy & polypectomy completed Not Available [facility] 10/31/2022 23:28:47 Hernia Repair completed Not Available [facility] 10/31/2022 23:28:47 Pacemaker completed Not Available [place] [address] 10/31/2022 23:28:47 Kidney Stones completed Not Available [facility] 10/31/2022 23:28:47 Lasik completed Not Available [facility] 09/2022 23:28:47 Tonsillectomy completed Not Available [facility] 10/31/2022 23:28:47 cervical spinal fusion for pseudoarthrosis completed Not Available [facility] 10/31/2022 23:28:47 Hemorrhoidectomy completed Not Available [facility] 10/31/2022 23:28:47 implantation of cardiac pacemaker completed Not Available [facility] 23:28:47 myelogram completed Not Available [place] [address] 10/31/2022 23:28:47 Colonoscopy completed Not Available [facility] 10/31/2022 23:28:47 Laparoscopic cholecystectomy completed Not Available [facility] 10/31/2022 23:28:47 Imaging Results None recorded. Procedure Notes None recorded. Medical Equipment None Reported. Allergies Allergen ID Allergen Name Allergen Category Reaction Reaction Severity Criticality Documentation Date Start Date Code Code System Note Provider Name and Address Organization Details Recorded Time 82618 atropine medicatio n Not available Not available Not available 10/31/2022 1223 RxNorm Not Available [facility] 23:31:13 Medications Name Sig Start Date Stop [...] % 96 % 67 /min 97.8 [degF] 65120.6 6 g 140 mm[Hg] 90 mm[Hg] Not Available [facility] 3 23:29:04 Date Recorded Body mass index (BMI) Body height Oxygen saturation Oxygen saturation in Arterial blood by Pulse oximetry Heart rate Body temperature Body weight Systolic blood pressure Diastolic blood pressure Provider Name and Address Organization Details Last Updated DateTime 2 30.9 kg/m2 170.18 cm 99 % 99 % 68 /min 97.8 [degF] 01052.7 g 130 mm[Hg] 70 mm[Hg] Not Available [facility] 3 23:29:05 Date Recorded Body mass index (BMI) Body height Oxygen saturation Oxygen saturation in Arterial blood by Pulse oximetry Heart rate Body temperature Body weight Systolic blood pressure Diastolic blood pressure Provider Name and Address Organization Details Last Updated DateTime 2 30.9 kg/m2 170.18 cm 99 % 99 % 70 /min 97.4 [degF] 79404.7 g 120 mm[Hg] 70 mm[Hg] Not Available [facility] 3 23:29:05 Date Recorded Body mass index (BMI) Body height Oxygen saturation Oxygen saturation in Arterial blood by Pulse oximetry Heart rate Body temperature Body weight Systolic blood pressure Diastolic blood pressure Provider Name and Address Organization Details Last Updated DateTime 3 30.7 kg/m2 170.18 cm 96 % 96 % 85 /min 97.3 [degF] 16825.1 g 120 mm[Hg] 60 mm[Hg] Not Available [facility] 3 23:29:05 Date Recorded Body height Body mass index (BMI) Body weight Body temperature Heart rate Respiratory rate Systolic blood pressure Diastolic blood pressure Provider Name and Address Organization Details Last Updated DateTime 3 170.18 cm 30.3 kg/m2 17166.4 8 g 97.7 [degF] 67 /min 16 /min 126 mm[Hg] 67 mm[Hg] Siria Weir RN [place] - [facility] 3 11:24:34 Social History Question Answer Notes LastModified by [employer] ion Details LastModified Time Tobacco Smoking Status Former Smoker Not Available [facility] 10/31/2022 23:28:26 What Is Your Level Of Alcohol Consumption? Occasional [id number] Information not available 10/31/2022 What Is Your Level Of Caffeine Consumption? Heavy [id number] Information not available 10/31/2022 What Is The Highest Grade Or Level Of School You Have Completed Or The Highest Degree You Have Received? LD30138-0 [id number] Information not available 10/31/2022 When Did You Quit Smoking? 16+yearssincel astcigarette [id number] Information not available 10/31/2022 Have You Ever Been Counseled For Unhealthy Alcohol Use? No [id number] Information not available 10/31/2022 What Is Your Relationship Status? [id number] Information not available 10/31/2022 Do You Use Any Illicit Or Recreational Drugs? No [id number] Information not available 10/31/2022 Has Tobacco Cessation Counseling Been Provided? No [id number] Information not available 10/31/2022 Do You Or Have You Ever Used Any Other Forms Of Tobacco Or Nicotine? No [id number] Information not available 10/31/2022 Sex: Male Functional Status None recorded. Mental Status None recorded. Family History Relationship Description Onset Age of this Age Resolved Age Notes LastModified by Organization Details LastModified Time Paternal Grandmother Diabetes mellitus [id number] Not available 10/31/2022 23:28:48 Father Myocardial infarction [id number] Not available 10/31/2022 23:28:48 Brother Myocardial infarction [id number] Not available 10/31/2022 23:28:48 Paternal Grandfather Chronic obstructive pulmonary disease [id number] Not available 10/31/2022 23:28:48 Maternal Grandfather Chronic obstructive pulmonary disease [id number] Not available 10/31/2022 23:28:48 Paternal Uncle Malignant tumor of lung 3uncle s [id number] Not available 10/31/2022 23:28:48 Medical History Condition Response HIGH CHOLESTEROL / HYPERLIPIDEMIA Y HYPERTHYROIDISM Y EYE PROBLEMS Y HYPOTHYROIDISM Y DIABETES, TYPE Y HEART DISEASE/HEART PROBLEMS Y HYPERTENSION Y Past Encounters Encounter ID Performer Location Encounter Start Date Encounter Closed Date Diagnosis/Indication Diagnosis SNOMED-CT Code Diagnosis ICD10 Code Diagnosis Note [id number] [facility] [address] [place] [address] 08/08/2021 00:00:00 08/08/2021 18:02:40 [id number] [facility] [address] [place] [address] 08/21/2021 00:00:00 08/21/2021 16:22:15 [id number] [facility] [address] [place] [address] 12/18/2021 00:00:00 12/18/2021 17:21:40 [id number] [facility] [address] [place] [address] 05/01/2022 00:00:00 05/01/2022 13:38:06 [id number] [facility] Endo [place] [address] [place] [address] 07/05/2022 00:00:00 07/05/2022 10:21:54 [id number] [facility] [place] [facility] Endo Boris Calles [address] [place] [address] 10/09/2022 00:00:00 10/09/2022 13:45:15 [id number] Tia Braun MD [facility] Endo Boris Calles [address] [place] [address] 05/21/2023 11:15:38 05/21/2023 12:03:43 Uncontrolled type 2 diabetes mellitus [id number] E11.65 a1c of 8.3% down from 8.6%- [...] Recommende d patient to utilize the diabetesfo Wapi.GridPoint from the ADA website to help with food preparatio n as this presents ideal carb content per meal so this will make carb counting much easier for patient. Recommende d he incorporat e natural insulin bi tester s such as pears, apples, cinnamon, bhupendra and sweet potatoes to help mobilize his endogenous insulin. Recommende d up to 150 minutes of moderate level activity/e xercise weekly. refer to endocrinol ogy per patient request. Hypothyroidism [id number] E03.9 FT4 in range- continue synthroid 100 mcg daily. Dyslipidemia [id number] E 78.5 Continue statin therapy as LDL [...] Name 05/21/2023 1 [place] Ced Mccracken [id number] Ced [place] 05/21/2023 2 WPS - FOR LIFE (MEDICARE SUPPLEMENT) Ced [place] [id number] Ced Mccracken Notes Date Note Type Note [...] mg/dLCr normalLFT normal Tia Braun MD [address] [facility] [place], [address], [place], [address], [facility] [email or web address] 05/21/2023 12:27:05
[2024-11-16 07:36] LABS: Basophils Absolute Auto 0.1 K/mm3 (0.0-0.1); Basophils Percent Auto 0.7 % (0.2-1.2); Eosinophils Absolute Auto 0.3 K/mm3 (0-0.3); Eosinophils Percent Auto 2.9 % (0-4.4); Hemoglobin 15.4 g/dL (14.0-18.0); Immature Granulocyte Absolute 0.01 K/mm3 (0.00-0.031); Immature Granulocyte Percent A 0.1 % (0-0.5); Lymphocytes Absolute Auto 2.33 K/mm3 (0.9-3.2); Lymphocytes Percent Auto 26.9 % (18.3-44.2); Mean Corpuscular HGB Conc 34.2 g/dl (32-36); Mean Corpuscular Hemoglobin 28.7 pg (26-34); Mean Platelet Volume 8.6 fl (7.4-10.4); Monocytes Absolute Auto 0.8 K/mm3 (0.1-0.6); Monocytes Percent Auto 9.7 % (2.6-8.5); Neutrophils Absolute Auto 5.2 K/mm3 (1.3-6.7); Neutrophils Percent Auto 59.7 % (45.5-73.1); Platelet Count Result 185 k/mm3 (150-375); Red Blood Count 5.36 M/mm3 (4.6-6.20); Red Cell Distribution Width 13.9 % (11.5-14.5); White Blood Count 8.7 K/mm3 (4.5-10.0)
[2024-11-16 07:46] LABS: Anion Gap 7 mmol/L (4-12); Blood Urea Nitrogen 17 mg/dL (9-20); Calcium 9.2 mg/dL (8.4-10.2); Carbon Dioxide 30 mmol/L (22-30); Chloride 104 mmol/L (98-107); Estimated CRCL calculation 69 ml/min; Estimated Glomerular Filt Rate > 60; Glucose 152 mg/dL (65-110); Potassium 3.9 mmol/L (3.4-5.0); Sodium 141 mmol/L (137-145)
--- NOTE | 2024-11-16 09:11 | P.HP_ITS ---
H&P: HPI History of Present Illness Date/Time: 11/16/24 09:11 Chief Complaint: Abnormal nuclear stress test Narrative: 74-year-old man with syncope status post permanent pacemaker, CAD status post PCI, hypertension/hyperlipidemia, and diabetes has been having exertional shortness of breath for the last month for which she underwent a stress test with myocardial perfusion imaging that was abnormal. His exertional shortness of breath is new and is limiting his physical activity. Is unable to ambulate the same distance with the same intensity without being significantly short of breath. The myocardial perfusion imaging showed the medium-sized defect with mild to moderate intensity natalie-infarct ischemia in the basal inferior and mid inferior segments. He has no symptoms at rest and has not had any significant bleeding or vascular surgeries previously. Review of Systems Cardiovascular: Cardiovascular: Reports as per HPI Respiratory: Respiratory: Reports as per HPI [facility] Past Medical History Medical History XOCHITL (obstructive sleep apnea) TIA (transient ischemic attack) Colonic mass Hypertension Obesity CAD (coronary artery disease) Umbilical hernia without mention of obstruction or gangrene Symptomatic cholelithiasis Diabetes mellitus Cervical radiculopathy Esophageal reflux Essential (primary) hypertension Hypothyroidism, unspecified Male erectile dysfunction, unspecified Metabolic syndrome Mixed hyperlipidemia Primary generalized (osteo)arthritis Psoriatic arthropathy Type 2 diabetes mellitus with hyperglycemia Cardiac pacemaker Fusion of spine, cervical region Kidney stone Infective otitis externa of left ear History of cardiac monitoring Surgical History Surgical History S/P lumbar laminectomy (~02/2024) Status post colon resection S/P laparoscopic colectomy laparoscopic sigmoid colectomy with colorectal anastomosis, da Yolanda assisted History of laparoscopic cholecystectomy 05/10/20 Hx of tonsillectomy Hx of LASIK Hx of LASIK H/O heart artery stent 3 stents 2009 Family History Family History Sibling Acute myocardial infarction Cerebrovascular accident Depression Carcinoma of colon Grandparent Diabetes mellitus Family history of cardiovascular disease Carcinoma of colon, Onset Age: 85 Father Hypertension Family history of cardiovascular disease Acute myocardial infarction, Onset Age: 72 Social History Social History Social History: Caffeine-daily Smoking packs per day: 1 Smoking cigarettes per day: 20.0 Years smoked: 9 Smoking pack-years: 9.00 Smoking status: Former smoker Tobacco type: cigarettes and pipe Second hand tobacco smoke exposure: No Smoking end date: 09/02/82 Alcohol intake: never Drinks per week: 1 Alcohol use details: Rarely Substance use: never Substance use type: does not use Do You Feel Safe in your Home?: Yes Lack of Transportation: No Lack of Food: Never True Current Housing: I Have Housing Concerned About Future Housing: No Difficulty Paying Gas/Electric Bills: No Difficulty Paying for Meds: No Currently Unemployed: No Education: Master's Degree or Higher Difficulty w/ Childcare or Family Care: No Living arrangements: with family Additional living arrangements comments: DAUGHTER Gender identity (if verbalized by the patient): Male Spiritual care concerns: No Meds Home Medications and Allergies Home Medications ?Medication ?Instructions ?Recorded ?Confirmed ?Type aspirin 81 mg tablet,delayed 81 mg PO QAM 08/10/19 11/16/24 History release (Adult Low Dose Aspirin) etanercept 50 mg/mL (1 mL) 50 mg subcut WEEKLY #13 mL 03/28/21 11/13/24 Rx subcutaneous syringe (Enbrel) lancets 28 gauge (FreeStyle #100 ea 11/21/23 11/13/24 Rx Lancets) blood sugar diagnostic (Freestyle #100 ea 01/15/24 11/13/24 Rx InsuLinx Test Strips) dulaglutide 4.5 mg/0.5 mL 4.5 mg (0.5 mL) subcut WEEKLY #6 mL 01/31/24 11/13/24 Rx subcutaneous pen injector (Trulicity) insulin degludec 200 unit/mL (3 See Rx Instructions .Route 03/03/24 11/13/24 Rx mL) subcutaneous pen (Tresiba .COMPLEX #9 mL FlexTouch U-200 insulin) insulin lispro 100 unit/mL 6 unit subcut USEASDIRECTD 03/20/24 11/13/24 History subcutaneous pen atorvastatin 40 mg tablet 40 mg PO DAILY #90 tabs 03/30/24 11/16/24 Rx alcohol swabs (BD Alcohol Swabs) See Rx Instructions topical 09/30/24 11/13/24 Rx .COMPLEX Use to cleanse area before testing blood sugars 2- #200 ea empagliflozin 25 mg tablet 25 mg PO QAM #90 tabs 09/30/24 11/13/24 Rx (Jardiance) finasteride 5 mg tablet 5 mg PO DAILY #90 tabs 09/30/24 11/16/24 Rx levothyroxine 100 mcg tablet 100 mcg PO QAM #90 tabs 09/30/24 11/16/24 Rx (Synthroid) metformin 1,000 mg tablet 1,000 mg PO DAILY #90 tabs 09/30/24 11/13/24 Rx metoprolol succinate 25 mg 25 mg PO DAILY #90 tabs 09/30/24 11/13/24 Rx tablet,extended release 24 hr omeprazole 40 mg capsule,delayed 40 mg PO DAILY #90 caps 09/30/24 11/16/24 Rx release pen needle, diabetic 32 gauge x #450 ea 09/30/24 11/13/24 Rx 5/32 (BD Lyudmila 2nd Gen Pen Needle) potassium chloride 10 mEq 10 meq PO EVERY OTHER DAY #90 caps 09/30/24 11/16/24 Rx capsule,extended release telmisartan 40 1 tablet PO QAM #90 tabs 09/30/24 11/13/24 Rx mg-hydrochlorothiazide 12.5 mg tablet Allergies Allergy/AdvReac Type Severity Reaction Status Date / Time atropine Allergy Severe DECREASED Verified 11/13/24 11:43 HR meloxicam AdvReac Mild Dizziness Verified 11/13/24 11:43 Vital Signs Vital Signs - 24 hr 11/16/24 07:00 Temperature 36.7 C Pulse Rate 70 Respiratory Rate 12 Blood Pressure 170/72 H Pulse Oximetry 98 Oxygen Delivery Room Air Exam Const: General: comfortable Neck: Neck: no JVD Resp: Effort & Inspection: normal respiratory effort Cardio: Rate: regular rate Rhythm: regular rhythm Neuro: Speech: normal speech Extrem: General: no pedal edema H&P: Results Labs Labs: Short CBC 11/16/24 Range/Units 07:30 WBC 8.7 (4.5-10.0) K/mm3 Hgb 15.4 (14.0-18.0) g/dL Hct 45.0 (42.0-52.0) % Plt Count 185 (150-375) k/mm3 [facility] 11/16/24 07:30 Sodium 141 Potassium 3.9 Chloride 104 Carbon Dioxide 30 BUN 17 Creatinine 0.86 Glucose 152 H Calcium 9.2 Assessment and Plan Assessment and plan (1) Abnormal nuclear stress test: Code(s): R94.39 - Abnormal result of other cardiovascular function study Status: Acute Plan 74-year-old man with syncope status post permanent pacemaker, CAD status post PCI, hypertension/hyperlipidemia, and diabetes has been having exertional shortness of breath for the last month for which she underwent a stress test with myocardial perfusion imaging that was abnormal Abnormal nuclear stress test -is on aspirin 81 mg p.o. daily atorvastatin 80 mg every evening Toprol 25 mg telmisartan-hydrochlorothiazide 40-12.5 mg p.o. tablets -given his exertional symptoms causing significant decline in his functional status, we have discussed indications, benefits, risks, alternatives left heart catheterization with possible PCI -all questions were answered and patient and agree to proceed forward
[2024-11-16] MEDS: NIFEdipine 30 MG TAB.ER.24 60 MG PO (10:15)
--- NOTE | 2024-11-16 10:35 | WPDMODSED ---
Moderate Sedation Note-Pt Data Patient Data Allergies Allergy/AdvReac Type Severity Reaction Status Date / Time atropine Allergy Severe DECREASED Verified 11/13/24 11:43 HR meloxicam AdvReac Mild Dizziness Verified 11/13/24 11:43 Home Medications ?Medication ?Instructions ?Recorded ?Confirmed ?Type aspirin 81 mg tablet,delayed 81 mg PO QAM 08/10/19 11/16/24 History release (Adult Low Dose Aspirin) etanercept 50 mg/mL (1 mL) 50 mg subcut WEEKLY #13 mL 03/28/21 11/13/24 Rx subcutaneous syringe (Enbrel) lancets 28 gauge (FreeStyle #100 ea 11/21/23 11/13/24 Rx Lancets) blood sugar diagnostic (Freestyle #100 ea 01/15/24 11/13/24 Rx InsuLinx Test Strips) dulaglutide 4.5 mg/0.5 mL 4.5 mg (0.5 mL) subcut WEEKLY #6 mL 01/31/24 11/13/24 Rx subcutaneous pen injector (Trulicity) insulin degludec 200 unit/mL (3 See Rx Instructions .Route 03/03/24 11/13/24 Rx mL) subcutaneous pen (Tresiba .COMPLEX #9 mL FlexTouch U-200 insulin) insulin lispro 100 unit/mL 6 unit subcut USEASDIRECTD 03/20/24 11/13/24 History subcutaneous pen atorvastatin 40 mg tablet 40 mg PO DAILY #90 tabs 03/30/24 11/16/24 Rx alcohol swabs (BD Alcohol Swabs) See Rx Instructions topical 09/30/24 11/13/24 Rx .COMPLEX Use to cleanse area before testing blood sugars 2- #200 ea empagliflozin 25 mg tablet 25 mg PO QAM #90 tabs 09/30/24 11/13/24 Rx (Jardiance) finasteride 5 mg tablet 5 mg PO DAILY #90 tabs 09/30/24 11/16/24 Rx levothyroxine 100 mcg tablet 100 mcg PO QAM #90 tabs 09/30/24 11/16/24 Rx (Synthroid) metformin 1,000 mg tablet 1,000 mg PO DAILY #90 tabs 09/30/24 11/13/24 Rx metoprolol succinate 25 mg 25 mg PO DAILY #90 tabs 09/30/24 11/13/24 Rx tablet,extended release 24 hr omeprazole 40 mg capsule,delayed 40 mg PO DAILY #90 caps 09/30/24 11/16/24 Rx release pen needle, diabetic 32 gauge x #450 ea 09/30/24 11/13/24 Rx (BD Lyudmila 2nd Gen Pen Needle) potassium chloride 10 mEq 10 meq PO EVERY OTHER DAY #90 caps 09/30/24 11/16/24 Rx capsule,extended release telmisartan 40 1 tablet PO QAM #90 tabs 09/30/24 11/13/24 Rx mg-hydrochlorothiazide 12.5 mg tablet Sedation/Anesthesia: No previous sedation/anesthesia problems (including family history). [facility] Past Medical History Medical History XOCHITL (obstructive sleep apnea) TIA (transient ischemic attack) Colonic mass Hypertension Obesity CAD (coronary artery disease) Umbilical hernia without mention of obstruction or gangrene Symptomatic cholelithiasis Diabetes mellitus Cervical radiculopathy Esophageal reflux Essential (primary) hypertension Hypothyroidism, unspecified Male erectile dysfunction, unspecified Metabolic syndrome Mixed hyperlipidemia Primary generalized (osteo)arthritis Psoriatic arthropathy Type 2 diabetes mellitus with hyperglycemia Cardiac pacemaker Fusion of spine, cervical region Kidney stone Infective otitis externa of left ear History of cardiac monitoring Surgical History Surgical History S/P lumbar laminectomy (~02/2024) Status post colon resection S/P laparoscopic colectomy laparoscopic sigmoid colectomy with colorectal anastomosis, da Yolanda assisted History of laparoscopic cholecystectomy 05/10/20 Hx of tonsillectomy Hx of LASIK Hx of LASIK H/O heart artery stent 3 stents 2009 Family History Family History Sibling Acute myocardial infarction Cerebrovascular accident Depression Carcinoma of colon Grandparent Diabetes mellitus Family history of cardiovascular disease Carcinoma of colon, Onset Age: 85 Father Hypertension Family history of cardiovascular disease Acute myocardial infarction, Onset Age: 72 Social History Social History Social History: Caffeine-daily Smoking packs per day: 1 Smoking cigarettes per day: 20.0 Years smoked: 9 Smoking pack-years: 9.00 Smoking status: Former smoker Tobacco type: cigarettes and pipe Second hand tobacco smoke exposure: No Smoking end date: 09/02/82 Alcohol intake: never Drinks per week: 1 Alcohol use details: Rarely Substance use: never Substance use type: does not use Do You Feel Safe in your Home?: Yes Lack of Transportation: No Lack of Food: Never True Current Housing: I Have Housing Concerned About Future Housing: No Difficulty Paying Gas/Electric Bills: No Difficulty Paying for Meds: No Currently Unemployed: No Education: Master's Degree or Higher Difficulty w/ Childcare or Family Care: No Living arrangements: with family Additional living arrangements comments: DAUGHTER Gender identity (if verbalized by the patient): Male Spiritual care concerns: No Mod Sed Physical Exam Physical Exam Pre Procedural Exam: Normal: Heart Rate and Heart Rhythm Hours since solid foods: 12 Hours since liquid intake: 12 Mallampati Classification: class II Internal Medicine - PN: Obj Da Vital Signs Vital Signs: Vital Signs - 24 hr 11/16/24 07:00 11/16/24 10:00 11/16/24 10:15 Temperature 36.7 C Pulse Rate 70 65 58 L Respiratory Rate 12 13 11 L Blood Pressure 170/72 H 162/86 H 150/81 H Pulse Oximetry 98 97 94 Oxygen Delivery Room Air Room Air Room Air 11/16/24 10:30 Temperature Pulse Rate 59 L Respiratory Rate 10 L Blood Pressure 162/70 H Pulse Oximetry 96 Oxygen Delivery Room Air Intake/Output Intake/Output: Intake & Output 11/13/24 11/14/24 11/15/24 11/16/24 23:59 23:59 23:59 23:59 Output Total 0 Balance 0 Labs 11/16/24 07:30 11/16/24 07:30 Labs: Laboratory Results - last 24 hr 11/16/24 07:30 WBC 8.7 RBC 5.36 Hgb 15.4 Hct 45.0 MCV 84.0 MCH 28.7 MCHC 34.2 RDW 13.9 Plt Count 185 MPV 8.6 Immature Gran % (Auto) 0.1 Neut % (Auto) 59.7 Lymph % (Auto) 26.9 [place] % (Auto) 9.7 H Eos % (Auto) 2.9 Baso % (Auto) 0.7 Lymph # (Auto) 2.33 [place] # (Auto) 0.8 H Eos # (Auto) 0.3 Baso # (Auto) 0.1 Abs Immat Gran (auto) 0.01 Absolute Neuts (auto) 5.2 Absolute Nucleated RBC 0.000 Nucleated RBC % 0.0 Sodium 141 Potassium 3.9 Chloride 104 Carbon Dioxide 30 Anion Gap 7 BUN 17 Creatinine 0.86 Estim Creat Clear Calc 69 Estimated GFR > 60 Glucose 152 H Calcium 9.2 ASA Classification/Sedation ASA Classification/Sedation ASA Class: III Emergent: No Risks: Risks, benefits and alternatives explained and patient/family accepted plan for sedation. Patient re-evaluated immediately prior to sedation.
--- NOTE | 2024-11-16 10:36 | P.PCNCC_ITS ---
Cardiac Cath Procedure Note Date of procedure:: 11/16/24 Performing physician:: CATHETERIZATION LABORATORY REPORT Procedure Date: 11/16/2024 Referring Physician: Dr. Jones Anesthesia: Versed and Fentanyl were ordered and given in my presence at 0919, procedure ended at 0939. Supervision of nurse monitored moderate sedation with 2mg Versed and 100mcg Fentanyl was provided for 20 minutes. Pre-op Diagnosis: Abnormal nuclear stress test Post-op Diagnosis: Abnormal nuclear stress test Procedure(s): Left heart catheterization with coronary angiography Access Site: Right radial artery Brief History and Clinical Indications: All risks, benefits and alternatives to left heart catheterization with or without percutaneous coronary intervention was discussed at length with the patient. Risk of complications including but not limited to bleeding, infection, arrhythmia, stroke, worsening kidney function, blood loss, groin hematoma, limb loss, emergency coronary artery bypass grafting, and even were discussed with the patient and all questions were answered. The patient understood and wished to proceed. 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 Findings: LEFT HEART CATHETERIZATION FINDINGS: 1. Left main: The left main coronary artery has 30-40% diffuse calcific stenosis. 2. Left anterior descending: The LAD gives off 2 diagonal branches. The ostial and proximal LAD has 70% heavily/severe calcification. The mid LAD has 70% stenosis. The distal LAD is a 1 mm vessel with 70-80% diffuse stenosis leading into the apical LAD. The 1st diagonal branch is a small caliber vessel with 80% stenosis at its ostium and proximal body. 3. Left circumflex: The left circumflex artery gives off 3 OM branches. The proximal left circumflex prior to the takeoff of the 1st OM branch has 70% stenosis and about 20-30 mm after the 1st OM branch, there is a 50% stenosis. The remainder of the left circumflex has diffuse 10-20% stenosis. OM1 has a patent stent. Immediately prior to the stent, there is a heavily calcified 90- 95% stenosis involving the ostium of the OM1 branch and immediately after the stent there is as 70% stenosis. The 1st OM branch also gives off a moderate caliber vessel that has diffuse 20-40% stenosis. The OM2 is a 2 mm vessel with 70% stenosis. 4. Right coronary artery: The RCA is moderate caliber dominant vessel. There is a stent in the mid body as 10% in stent restenoses. Immediately distal to this stent, there is a 60-70% stenosis leading into an ectatic region. The proximal right PDA has 99% stenosis. 5. Left ventricle: A. End-diastolic pressure 51 mmHg. B. LV gram deferred. C. No significant gradient across aortic valve on catheter pullback. 6. Opening AO pressure 192/97 and closing AO pressure 180/106 Description of Procedure: Informed consent signed and placed in the chart. Patient transferred to director geophysical laboratory room. Prepped and draped in usual sterile fashion. 2% lidocaine injected subcutaneously in right wrist area. 22-gauge venipuncture catheter used to access the right radial artery with the Seldinger technique. 6-FR slender sheath placed in right radial artery. Nitroglycerin 200mcg, Verapamil 2.5mg, and Heparin 5000U was given intraarterial through the sheath. J wire advanced under fluoroscopy 5F JL3.5 diagnostic catheter engaged Left Main Coronary Artery. 5F JR4 diagnostic catheter engaged Right Coronary Artery Multiple orthogonal angiogram obtained and reviewed 5F TIG diagnostic catheter crossed aortic valve to obtain LVEDP, LV angiogram deferred. Hemostasis was achieved by application of TR band. Assessment: Multivessel severely heavily calcified coronary artery disease Post Operative Condition: Stable No significant blood loss Disposition: Home Plan: Recommend CT surgery consult for evaluation of bypass surgery. Matthew Gong Interventional Cardiology
[2024-11-16] MEDS: ONDANSETRON INJ 4 MG/2 ML VIAL IV PUSH (10:38)
== END 2024-11-16 13:24 | disposition home or self-care (01) ==
PROVIDERS: PCP Family Medicine; Visit Provider Internal Medicine
PROC: 4A023N7 Measurement of Cardiac Sampling and Pressure, Left Heart, Percutaneous Approach (ICD-10-PCS; CPT 93452; principal; 2024-11-16 08:30)
DX: I25.10 Atherosclerotic heart disease of native coronary artery without angina pectoris (principal); I25.84 Coronary atherosclerosis due to calcified coronary lesion; R94.39 Abnormal result of other cardiovascular function study; R06.02 Shortness of breath; I10 Essential (primary) hypertension; E78.5 Hyperlipidemia, unspecified; E11.9 Type 2 diabetes mellitus without complications; Z95.5 Presence of coronary angioplasty implant and graft; Z87.891 Personal history of nicotine dependence
CPT/HCPCS: 36415; 80048; 85025; 93458; A9270; C1769; C1887; C1894; J1644; J2003; J2250; J2305; J2405; J3010; J7040

== ENCOUNTER 2025-02-16 13:00 | Emergency (ER) | payer MEDICARE, OTHER, SELFPAY ==
--- NOTE | ~2025-02-16 | CT_ITS ---
CTA chest PE protocol Ordering provider: Siria Ruano PA-C History: 74 years Male with . sob, recent cabg, r/o pe . Comparison: None. Technique: CT angiogram chest was performed following timed intravenous injection of contrast. Thin s lice axial images and reformatted coronal images were obtained. Three dimensional reformatted images of the chest were also obtained using a Ceona workstation. . Automated exposure control and iterati ve reconstruction technique were employed. The dose-length product was 714.11 mGy-cm. 100 mL Omnipaqu e 350 was given IV. Findings: PULMONARY ARTERIES: No pulmonary embolus. VISUALIZED THORACIC INLET: Normal. MEDIASTINUM: Aorta/coronary arteries: Mild atheromatous disease. Heart/other: The heart is not enlarged. Trace of pericardial effusion seen anteriorly although focal soft tissue density measuring 1.9 cm cannot be excluded. Lymph nodes: No mediastinal or hilar adenopathy. LUNGS: Possible left pleural effusion. Dependent atelectatic changes. No pulmonary nodules or masses. No inf iltrates or effusions. No pneumothorax. VISUALIZED UPPER ABDOMEN: Status post cholecystectomy. Constipation. Otherwise, the visualized upper abdomen is normal. MUSCULOSKELETAL: Soft tissues: device is seen in the left anterior chest wall. Otherwise, The superficial soft tissues are normal. Bones: Healing fracture in the left first rib. Postoperative changes in the sternum. Age appropriate degenerative changes of the spine. IMPRESSION: 1. No pulmonary embolism. 2. No acute cardiopulmonary pathology. 3. Minimal left pleural effusion. 4. Focal density in the anterior pericardium which may be focal pleural effusion or soft tissue dens ity. Follow-up advised.) 5. Healing fracture in the left first rib. 6. Constipation. Reviewed, dictated and finalized at location A. IMPRESSION: 1. No pulmonary embolism. 2. No acute cardiopulmonary pathology. 3. Minimal left pleural effusion. 4. Focal density in the anterior pericardium which may be focal pleural effusi on or soft tissue density. Follow-up advised.) 5. Healing fracture in the left first rib. 6. Constipation.
--- NOTE | ~2025-02-16 | XR_ITS ---
EXAMINATION: XR chest 2V DATE: 02/16/2025 13:41 INDICATION: Shortness of breath TECHNIQUE: PA and lateral views of the chest were obtained. COMPARISON: Chest radiograph dated 10/20/2013 FINDINGS: Linear opacity along one of the fissures on the lateral projection consistent with discoid atelectasi s or versus trace amount of pleural fluid. No other airspace opacities, pulmonary edema or pneumothor ax. No blunting at the posterior sulci suggests significant effusion. Heart size is normal. Median st ernotomy wires, ostial markers and mediastinal surgical clips consistent with prior coronary artery b ypass grafting. Dual lead pacemaker seen with leads projecting over the expected locations of the rig ht atrium and right ventricle. There is an additional cardiac pacemaker with lead tip at the apex of the right ventricle and with peripheral portions leads projecting along the anterior right chest and upper abdominal wall and beyond the inferior margin of the ddeev-vo-hlzy with an intraperitoneal pace maker device seen in the right abdomen on intervening CT dated 04/02/2020. Cholecystectomy clips in rig upper quadrant. There are bridging osteophytes at multiple levels consistent with diffuse idiopath ic skeletal hyperostosis (DISH). IMPRESSION: 1. Mild linear discoid atelectasis versus trace pleural effusion along with the major fissures. No ot her acute cardiopulmonary disease. Reviewed, dictated and finalized at location A. IMPRESSION: 1. Mild linear discoid atelectasis versus trace pleural effusion along with the major fissures. No other acute cardiopulmonary disease.
[2025-02-16 13:06] VITALS: BP 181/80; PULSE 80; RESP 18; TEMP 36.6; O2SAT 98
--- NOTE | 2025-02-16 13:06 | ECG_ITS ---
Test Date: 2025-02-16 13:13:43 Measurements Intervals [place] Rate: 78 P: 31 IA: 255 QRS: 110 QRSD: 88 T: 144 QT: 358 QTc: 408 Interpretive Statements SINUS RHYTHM WITH FIRST DEGREE AV BLOCK CONSIDER RIGHT VENTRICULAR CONDUCTION DELAY MINIMAL Q WAVES- INFERIOR LEADS BORDERLINE T WAVE ABNORMALITY- ANTEROLAT/HIGH LAT LEADS BASELINE ARTIFACT- I, II, III, AVR, AVL, AVF, V1, V5-V6 BORDERLINE ECG No previous ECG available for comparison Electronically Signed On 02-16-2025 14:10:44 CDT by Winston Wakefield D.O.
[2025-02-16 13:15] LABS: Basophils Absolute Auto 0.1 K/mm3 (0.0-0.1); Basophils Percent Auto 0.7 % (0.2-1.2); Eosinophils Absolute Auto 0.2 K/mm3 (0-0.3); Eosinophils Percent Auto 2.1 % (0-4.4); Hematocrit 36.8 % (42.0-52.0); Hemoglobin 11.2 g/dL (14.0-18.0); Immature Granulocyte Absolute 0.02 K/mm3 (0.00-0.031); Immature Granulocyte Percent A 0.2 % (0-0.5); Lymphocytes Absolute Auto 1.75 K/mm3 (0.9-3.2); Lymphocytes Percent Auto 21.8 % (18.3-44.2); Mean Corpuscular HGB Conc 30.4 g/dl (32-36); Mean Corpuscular Hemoglobin 24.1 pg (26-34); Mean Corpuscular Volume 79.3 fl (80-100); Mean Platelet Volume 8.2 fl (7.4-10.4); Monocytes Absolute Auto 0.7 K/mm3 (0.1-0.6); Monocytes Percent Auto 8.5 % (2.6-8.5); Neutrophils Absolute Auto 5.3 K/mm3 (1.3-6.7); Neutrophils Percent Auto 66.7 % (45.5-73.1); Platelet Count Result 206 k/mm3 (150-375); Red Blood Count 4.64 M/mm3 (4.6-6.20); Red Cell Distribution Width 14.1 % (11.5-14.5)
[2025-02-16 13:28] LABS: Alanine Aminotransferase 18 U/L (6-50); Albumin Level 4.3 g/dL (3.5-5.1); Alkaline Phosphatase 98 U/L (38-126); Anion Gap 12 mmol/L (4-12); Aspartate Amino Transferase 28 U/L (17-59); Bilirubin,Total 0.5 mg/dL (0.2-1.3); Blood Urea Nitrogen 13 mg/dL (9-20); Calcium 9.6 mg/dL (8.4-10.2); Carbon Dioxide 24 mmol/L (22-30); Chloride 104 mmol/L (98-107); Estimated CRCL calculation 81 ml/min; Estimated Glomerular Filt Rate > 60; Glucose 215 mg/dL (65-110); Potassium 4.3 mmol/L (3.4-5.0); Sodium 140 mmol/L (137-145); Total Protein 8.1 g/dL (6.3-8.2)
--- OUTSIDE RECORDS SUMMARY | 2025-02-16 13:32 | XMS_ITS | Encounter Summary ---
Author Organization [facility] Address [address] [place] [address] Care Team Providers Care Punch Box Tender Name Role Phone Unknown, Provider Primary Care Provider Unavaila ble Chai Giraldo MD Primary Care Provider [phone] Syl Mcadams MD Primary Care Provider [phone] Maryann Jiménez DO Primary Care Provider [phone] Encounter Details Date Type Department Care Team (Late st Contact Info) Description 01/02/2010 [facility]PT Liliana Owens MD [address] [facility] [address] [place] [address] Social History Tobacco Use Types Packs/Day Years Used Date Smoking Tobacco: Never Assessed Sex and Gender Information Value Date Recorded Sex Assigned at Not on file 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 Gender Identity Not on file Sexual Orientation Not on file documented as of this encounter Plan of Treatment Not on file documented as of this encounter Visit Diagnoses Not on filedocumented in this encounter Care Teams Punch Box Tender Relationship Specialty Start Date End Date Unknown, Provider PCP - General 02/27/10 01/19/14 Chai Giraldo MD [address] [place] [id number] PCP - General 12/24/17 04/28/18 Syl Mcadams MD [address] [place] [address] PCP - General 04/29/18 09/06/22 Maryann Jiménez DO [address] [facility] [address] [place] [address] PCP - General 09/07/22 documented as of this encounter
--- OUTSIDE RECORDS SUMMARY | 2025-02-16 13:32 | XMS_ITS | Encounter Summary ---
Author Organization [facility] Address [address] [facility] [place] [address] Care Team Providers Care Colliery Clerk Name Role Phone Syl Mcadams MD Primary Care Provider [phone] Maryann Jiménez DO Primary Care Provider [phone] Reason for Visit * Reason Onset Date Comments MEDICATION REFILL 11/08/2020 Encounter Details Date Type Department Care Team (Late st Contact Info) Description 11/08/2020 Refill [facility] [address] [place] [address], [place] [address] Nico Jones MD [address] [place] [address] [place] [address] MEDICATION REFILL Social History Tobacco Use Types Packs/Day Years Used Date Smoking Tobacco: Passive Smo ke Exposure - Never Smoker Smokeless Tobacco: Never Alcohol Use Standard Drinks/Week Comments Yes 0 (1 standard drink = 0.6 oz pur e alcohol) occaisional Sex and Gender Information Value Date Recorded Sex Assigned at Not on file 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
--- OUTSIDE RECORDS SUMMARY | 2025-02-16 13:32 | XMS_ITS | Encounter Summary ---
Author Organization [facility] Address [address] [facility] [address] [place] [id number] Care Team Providers Care Groundhand Name Role Phone Syl Mcadams MD Primary Care Provider [phone] Syl Mcadams MD Primary Care Provider [phone] Miscellaneous, Not In File Primary Care Provider Unavailable Syl Mcadams MD Primary Care Provider [phone] Maryann Jiménez DO Primary Care Provider + Jose David Betancourt MD Unavailable [phone] Ty Lamb MD Unavailable [phone] Jatinder Jones MD Unavailable [phone] Miscellaneous, Not In File Unavailable Unava ilable Encounter Details Date Type Department Care Team (Late st Contact Info) Description 10/29/2016 Orders Only [facility] Provider, MD Mireille [address] [place] [id number] Social History Tobacco Use Types Packs/Day Years Used Date Smoking Tobacco: Former Alcohol Use Standard Drinks/Week Comments Yes 0 (1 standard drink = 0.6 oz pur e alcohol) Sex and Gender Information Value Date Recorded Sex Assigned at Not on file 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 us Historical Provider [facility] RINA OLIVAREZ Final Result documented in this encounter Visit Diagnoses Not on filedocumented in this encounter Additional Health Concerns Infection Onset Date Last Indicated Resolved Time COVID: Suspected 05/04/2024 05/04/2024 05/04/2024 6:36 PM CDT COVID19 05/04/2024 05/04/2024 05/14/2024 3:07 AM CDT COVID: Recovered Comment:Added based on recent COVID infection. 05/14/2024 05/15/2024 08/12/2024 3:[address] COVID: Suspected 11/17/2024 11/17/2024 11/17/2024 8:17 PM CDT COVID: Suspected 01/07/2025 01/07/2025 01/07/2025 8:40 PM CDT Human metapneumovirus, conta ct + droplet 01/07/2025 01/07/2025 01/14/2025 3:05 AM C DT documented as of this encounter Care Teams Groundhand Relationship Specialty Start Date End Date Syl Mcadams MD [address] [place] [address] PCP - General 11/30/16 01/21/17 Syl Mcadams MD [address] [place] [address] PCP - General 07/14/13 11/29/16 Miscellaneous, Not In File PCP - General 01/22/17 02/04/17 Syl Mcadams MD [address] [place] [address] PCP - General 02/05/17 07/02/22 Maryann Jiménez DO PCP - General Family Medicine 07/03/22 Jose David Betancourt MD [address] [facility] [address] [place] [address] Consulting Physician Urology 06/19/24 Ty Lamb MD [address] [facility] [address] [place] [address] Surgeon Cardiothoracic Surgery 12/21/24 Jatinder Jones MD [address] [facility] [address] [facility] [address] [place] [address] Consulting Physician Cardiology 12/21/24 Miscellaneous, Not In File 12/21/24 documented as of this encounter
--- NOTE | 2025-02-16 13:33 | PC.NURSE ---
Lab called to add on ordered bnp.
--- OUTSIDE RECORDS SUMMARY | 2025-02-16 13:33 | XMS_ITS | Encounter Summary ---
Author Organization [facility] Address [address] [place] [address] Care Team Providers Care Eap Consultant Name Role Phone Unknown, Provider Primary Care Provider Unavaila ble Chai Giraldo MD Primary Care Provider [phone] Syl Mcadams MD Primary Care Provider [phone] Maryann Jiménez DO Primary Care Provider [phone] Encounter Details Date Type Department Care Team (Late st Contact Info) Description 03/03/2012 [facility]TERNAL [facility] DEPT Liliana Owens MD [address] [facility] [address] [place] [address] Social History Tobacco Use Types Packs/Day Years Used Date Smoking Tobacco: Never Assessed Sex and Gender Information Value Date Recorded Sex Assigned at Not on file 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 Gender Identity Not on file Sexual Orientation Not on file documented as of this encounter Plan of Treatment Not on file documented as of this encounter Visit Diagnoses Not on filedocumented in this encounter Care Teams Eap Consultant Relationship Specialty Start Date End Date Unknown, Provider PCP - General 02/27/10 01/19/14 Chai Giraldo MD [address] [place] [phone] PCP - General 12/24/17 04/28/18 Syl Mcadams MD [address] [place] [address] PCP - General 04/29/18 09/06/22 Maryann Jiménez DO [address] [facility] [address] [place] [address] PCP - General 09/07/22 documented as of this encounter
--- OUTSIDE RECORDS SUMMARY | 2025-02-16 13:33 | XMS_ITS | Referral Summary ---
Author Organization [facility] Address [facility] [place] [address] Care Team Providers Care Facilities And Grounds Director Name Role Phone Maryann Jiménez DO Primary Care Provider + Jose David Betancourt MD Unavailable [phone] Theresa Lamb MD Unavailable [phone] Jatinder Jones MD Unavailable [phone] Miscellaneous, Not In File Unavailable Unava ilable Encounters Date Type Department Care Team Description 02/12/2025 Telephone [facility] Cardiology [address] [facility] [address] [place] [address] Jatinder Jones MD 02/11/2025 Telephone [facility] [address] [place] [address] [address] [place] [address] Alireza Clark MD Med Refill 01/27/2025 10:30 AM CDT Home Care Visit [facility] [address] [place] [address] Lori Puckett SN OASIS DISCHARGE 01/26/2025 1:15 PM CDT Office Visit [facility] Surgery [address] [facility] [address] [place] [address] Theresa Lamb MD Coronary artery disease (CAD) excluded (Primary Dx) 01/25/2025 [facility] Post Discharge Follow up phone call [facility] [address] [place] [address] Ariella Larsen 01/21/2025 10:30 AM CDT Home Care Visit [address] [place] [address] Lori Puckett SN HOME VISIT 01/18/2025 Telephone [facility] [facility] [id number] [place] [address] [address] [place] [address] Alireza Clark MD 01/18/2025 9:30 AM CDT Home Care Visit [address] [place] [address] Lori Puckett SN HOME VISIT 01/14/2025 Plan of Care Documentation [address] [place] [address] 01/13/2025 12:30 PM CDT Home Care Visit [address] [address] [place] [address] Kaitlynn Elizalde RN SN OASIS RESUMPTION OF CARE 01/12/2025 Orders Only [facility] Cardiology [address] [facility] [address], [place] [address] Jatinder Jones MD Presence of cardiac pacemaker (Primary Dx); SSS (sick sinus syndrome) (HCC); Bradycardia 01/12/2025 Orders Only [facility] Surgery [address] [place] [address] [address] [place] [address] Jose Vega NP 01/07/2025 1:01 PM CDT - 01/11/2025 7:12 PM CDT Hospital Encounter [address] [address] Sindhu Whittington MD Munfakh, Nabil A., MD Brother, Michele, MD Rivera, Samantha, MD Cardiac tamponade (Primary Dx); Cervical myofascial pain syndrome; Syncope and collapse; Frailty syndrome in geriatric patient Discharge Disposition: Discharge to home, home health skilled care 01/08/2025 3:36 PM CDT Anesthesia Event [facility] Operating Room [address] [place] [address] [id number] Karen Tavarez DO Vuong, Peter Thuan, MD 01/08/2025 3:20 PM CDT - 01/08/2025 5:20 PM CDT Surgery [facility] Operating Room [address] [place] [address] Theresa Lamb MD REPLACE PACEMAKER GENERATOR FROM ABDOMEN WITH FLUOROSCOPY 01/07/2025 Home Care Visit [address] [address] [place] [address] Lori Puckett OASIS TRANSFER W/OUT DC 01/07/2025 12:18 PM CDT - 01/07/2025 11:59 PM CDT Hospital Encounter [facility] Emergency, Room R Discharge Disposition: Discharge to home or self care 01/07/2025 8:15 AM CDT - 01/07/2025 11:59 PM CDT Hospital Encounter [facility] Emergency, Room R Discharge Disposition: Discharge to home or self care 01/07/2025 8:28 AM CDT - 01/07/2025 12:14 PM CDT Emergency [facility] Emergency Department [address] [place] [address] Jt Mejia MD Lo Bianco, Salvador, MD Cardiac tamponade (Primary Dx); Bradycardia; Heart block Discharge Disposition: Discharge to a short term hospital for IP 01/05/2025 [facility] Post Discharge Follow up phone call [address] [address] Ariella Larsen 01/05/2025 [facility] Post Discharge Follow up phone call [address] [address] Ariella Larsen 01/05/2025 10:00 AM CDT Home Care Visit [address] [place] [address] Lori Puckett HOME VISIT 01/01/2025 Results Follow-Up [facility] Convenient Care at [address] [place] [phone] Nayely Sharp NP XR Chest Pa Lateral 2 Views 01/01/2025 2:45 PM CDT - 01/01/2025 11:59 PM CDT Hospital Encounter [facility] Radiology - Outpatient Center at [address] [address] Acute cough Discharge Disposition: Discharge to home or self care 01/01/2025 Documentation [facility] Surgery [address] [place] [address] [address] [place] [address] Jose Vega NP 01/01/2025 2:15 PM CDT Office Visit [facility] Convenient Care at [address] [place] [phone] Nayely Sharp NP Acute cough (Primary Dx) 01/01/2025 9:30 AM CDT Home Care Visit [address] [address] [place] [address] Kristal Allen, TOÑO SN HOME VISIT 12/31/2024 Orders Only [facility] Surgery [address] [place] [address] [address] [place] [address] Jose Vega, MASSIMO 12/29/2024 Home Care Visit [address] [place] [address] [facility] 12/29/2024 11:30 AM CDT Home Care Visit [address] [place] [address] Kristal Allen, TOÑO SN HOME VISIT 12/28/2024 Documentation [facility] Surgery [address] [place] [address] [address] [place] [address] Jose Vega NP 12/28/2024 12:00 PM CDT - 12/28/2024 11:59 PM CDT Hospital Encounter [facility] Diagnostic Imaging [address] [place] [address] S/P CABG (coronary artery bypass graft) Discharge Disposition: Discharge to home or self care 12/28/2024 Orders Only [facility] Surgery [address] [place] [address] [address] [place] [address] Jose Vega NP S/P CABG (coronary artery bypass graft) (Primary Dx) 12/26/2024 11:57 AM CDT - 12/26/2024 11:59 PM CDT Hospital Encounter [facility] [address] [place] [address] Discharge Disposition: Discharge to home or self care 12/26/2024 11:30 AM CDT Home Care Visit [address] [place] [address] Lori Puckett SN HOME VISIT 12/25/2024 Home Care Visit [address] [place] [address] Yudith Ayers RN SN TRIAGE ENCOUNTER 12/23/2024 Plan of Care Documentation [address] [place] [address] 12/23/2024 9:30 AM CDT Home Care Visit [address] [place] [address] Tia Paz, TOÑO SN OASIS START OF CARE 12/21/2024 Telephone [facility] Home Care Services [address] [place] [address] Tushra Meeks MA 12/14/2024 8:40 AM CDT - 12/21/2024 4:28 PM CDT Hospital Encounter [address] [address] Theresa Lamb MD 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 (Primary Dx); 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; Coronary arteriosclerosis in knik artery Discharge Disposition: Discharge to home, home health skilled care 12/14/2024 1:00 PM CDT - 12/14/2024 6:30 PM CDT Surgery [facility] Operating Room [address] [place] [address] Theresa Lamb MD CORONARY ARTERY BYPASS GRAFT X 4 - INTERNAL MAMMARY/RADIAL ARTERY/SAPHENOUS VEIN GRAFT - LEG 12/14/2024 11:24 AM CDT Anesthesia Event [facility] Operating Room [address] [place] [address] Neeraj Craft MD Barnhart, Lynlee Jo, NP 12/08/2024 7:37 AM CDT - 12/08/2024 11:59 PM CDT Hospital Encounter [facility] Non-invasive Cardiac Diagnostic Testing [address] [place] [address] Coronary arteriosclerosis in knik artery Discharge Disposition: Discharge to home or self care 12/07/2024 10:25 AM CDT - 12/07/2024 4:43 PM CDT Emergency [facility] Emergency Department [address] [place] [address] Waleska Mcneal MD Chest pain, unspecified type (Primary Dx) Discharge Disposition: Discharge to home or self care 12/04/2024 10:18 AM CDT - 12/04/2024 11:59 PM CDT Hospital Encounter [facility] Diagnostic Imaging [address] [place] [address] Discharge Disposition: Discharge to home or self care 12/04/2024 9:45 AM CDT Pre-Admission Testing [facility] Pre Anesthesia Testing [address] [place] [address] 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 Surgery [address] [place] [address] [place] [address] Theresa Lamb MD Coronary arteriosclerosis in knik artery (Primary Dx) 12/01/2024 3:00 PM CDT Office Visit [facility] Surgery [address] [place] [address] [address] [place] [phone] Theresa Lamb MD Coronary artery disease involving knik coronary artery of knik heart without angina pectoris (Primary Dx); Coronary artery disease involving knik coronary artery of knik heart, unspecified whether angina present 11/27/2024 12:30 PM CDT Office Visit [facility] Rheumatology at [address] [place] [address] Idania Mehta MD Polyarticular psoriatic arthritis (HCC) (Primary Dx); Encounter for long-term (current) use of high-risk medication; Coronary artery disease involving knik coronary artery of knik heart without angina pectoris 11/23/2024 Documentation [facility] Surgery [address] [facility] [facility] [address] [place] [address] Kristal Edward NP PCP Callback Request - Patient; CTS Consultation- Patient CAll 11/17/2024 6:59 PM CDT - 11/17/2024 11:55 PM CDT Emergency [facility] Emergency Department [address] [place] [address] Jeremie Tucker MD Diarrhea, unspecified type (Primary Dx) Discharge Disposition: Discharge to home or self care 11/17/2024 Telephone [facility] Cardiology [address] [address] [place] [address] Jatinder Jones MD 11/16/2024 Telephone [facility] Cardiology [address] [facility] [address], [place] [address] Matthew Gong MD 11/16/2024 Telephone [facility] [address] [facility] [facility] [address] [place] [address] Alireza Clark MD Freestyle Brenda Order from Last 3 Months Allergies Active Allergy Reactions Criticality Noted Date Comments Atropine Palpitations Low 01/02/2010 Patient states that it causes heartrate to decrease, not increase. Meloxicam Dizziness Low 11/13/2023 Oxycodone Mental status changes Low 07/11/2023 Medications omeprazole (PriLOSEC) 40 mg capsuleIndicatio ns:Stress Ulcer Prophylaxis Take 1 capsule by mouth every morning Active atorvastatin (LIPITOR) 40 mg tabletIndication s:arteriosclerot ic vascular disease Take 1 tablet by mouth every other day At night 12/19/19 22 Active BD Lyudmila 2nd Gen Pen Needle 32 gauge x needleIndication s:diabetes 01/15/20 24 Active aspirin 81 mg enteric coated tabletIndication s:Myocardial Reinfarction Prevention Take 1 tablet by mouth every morning Active finasteride (PROSCAR) 5 mg tabletIndication s:benign prostatic hyperplasia with lower urinary tract sx Take 1 tablet by mouth every morning Active levothyroxine (SYNTHROID) 100 mcg tabletIndication s:hypothyroidism Take 1 tablet by mouth emblem maker before breakfast Active metFORMIN (GLUCOPHAGE) 1,000 mg tabletIndication s:type 2 diabetes mellitus Take 1 tablet by mouth daily with breakfast Active dulaglutide (Trulicity) 3 mg/0.5 mL pen injectorIndicati ons:type 2 diabetes mellitus Inject 0.5 mL (3 mg total) under the skin once a week 6 mL 2 08/17/20 24 Active Additional Information Patient taking differently:3 mg subcutaneous Weekly,Saturday, Reported on 12/14/2024 alcohol swabs pads, medicatedIndicat ions:diabetes 10/05/19 25 Active cyanocobalamin (Vitamin B-12) 500 mcg tabletIndication s:Prevention of Vitamin B12 Deficiency Take 1 tablet by mouth daily Active cholecalciferol (VITAMIN D-3) 5,000 unit capsuleIndicatio ns:Vitamin D Deficiency Take 1 capsule by mouth daily Active acetaminophen 500 mg capsuleIndicatio ns:Pain,1st line for pain Take 2 capsules (1,000 mg total) by mouth every 6 (six) hours as needed for pain 12/22/19 25 Active traMADoL (ULTRAM) 50 mg tabletIndication s:Pain,2nd line for pain Take 1 tablet (50 mg total) by mouth every 8 (eight) hours as needed for pain 10 tablet 12/22/19 25 Active traZODone (DESYREL) 50 mg tabletIndication s:insomnia Take 1 tablet (50 mg total) by mouth nightly as needed for sleep 30 tablet 01/01/20 25 Active clopidogreL (PLAVIX) 75 mg tabletIndication s:Acute Coronary Syndrome,Thrombo sis Prevention after PCI Take 1 tablet (75 mg total) by mouth daily 90 tablet 01/08/20 25 025 Active TRESIBA 100 unit/mL (3 mL) pen for injectionIndicat ions:type 2 diabetes mellitus INJECT 20 UNITS UNDER THE SKIN NIGHTLY 15 mL 3 01/12/20 25 Active EnbreL SureClick 50 mg/mL (1 mL) pen injectorIndicati ons:Psoriatic Arthritis INJECT 50 MG (1 ML) UNDER THE SKIN EVERY 7 DAYS 8 mL 3 01/12/20 25 Active benzonatate (TESSALON) 100 mg capsuleIndicatio ns:Cough Take 1 capsule (100 mg total) by mouth 3 (three) times a day as needed for cough 30 capsule 01/12/20 25 Active lidocaine (ASPERCREME) 4 % adhesive patch,medicatedI ndications:Posth erpetic Neuralgia Place 2 patches on the skin daily for 12 hours As needed for back pain 30 patch 01/13/20 25 Active losartan (COZAAR) 25 mg tabletIndication s:chronic heart failure Take 0.5 tablets (12.5 mg total) by mouth daily 15 tablet 01/13/20 25 Active metoprolol tartrate (LOPRESSOR) 25 mg immediate release tabletIndication s:chronic heart failure,hyperten shantal Take 0.5 tablets (12.5 mg total) by mouth 2 (two) times a day 30 tablet 01/12/20 25 Active furosemide (LASIX) 40 mg tabletIndication s:Pulmonary Edema due to Chronic Heart Failure Take 1 tablet (40 mg total) by mouth daily for 14 days 14 tablet 01/12/20 25 Active potassium chloride ER (KLOR-CON) 20 mEq CR tabletIndication s:supplement Take 1 tablet (20 mEq total) by mouth daily for 14 days 14 tablet 01/12/20 25 Active guaiFENesin-code ine (GUAITUSS AC) liquid 100-10 mg/5 mLIndications:Co ugh Take 10 mL by mouth every 6 (six) hours as needed for cough 237 mL 01/13/20 25 Active doxycycline (doxycycline hyclate) 100 mg capsuleIndicatio ns:Prophylaxis, Medical Take 100 mg by mouth 2 (two) times a day. Indications: Prophylaxis, Medical 01/14/20 25 Active insulin lispro (HumaLOG, ADMELOG) 100 unit/mL pen for injectionIndicat ions:type 2 diabetes mellitus Inject 6-12 Units under the skin 4 (four) times a day 45 mL 1 01/22/20 25 Active blood-glucose sensor (FreeStyle Brenda 3 Plus Sensor) deviceIndication s:Type 2 diabetes mellitus with hyperglycemia, with long-term current use of insulin ([facility]) Dx code E11.65. T2DM with hyperglycemia with assisted current use of insulin. 3 each 3 02/12/20 25 Active insulin lispro (HumaLOG, ADMELOG) 100 unit/mL pen for injectionIndicat ions:type 2 diabetes mellitus Inject 6-12 Units under the skin 4 (four) times a day 025 Discontin ued(Reord er) Active Problems Problem Noted Date Diagnosed Date Heart block 01/08/2025 Cardiac tamponade 01/07/2025 Coronary artery disease (CAD) excluded 5 Sensorineural hearing loss (SNHL) 12/03/2024 Coronary artery disease of n ative heart with stable angina pectoris 12/01/2024 Erectile dysfunction due to arterial insufficien cy [...] are complete. Avoid live-vaccines unless reviewed with ostomy rn first. Overexertion from strenuous movement or load, initial encounter 01/07/2023 Fatigue 11/16/2022 Insomnia secondary to chronic pain 01/05/2021 Degenerative disc disease, cervical 02/10/2020 Cervical myofascial pain syndrome 02/10/2020 Cervical radiculopathy 02/10/2020 Hypertriglyceridemia 08/17/2019 Palpitations 08/17/2019 Presence of cardiac pacemaker 08/29/2017 Overview (02/16/2025): Kolb Assurity Dual Pacemaker. Dx; SSS, Symptomatic Bradycardia. DOI 01/08/2025-Munfakh. Espinal. Tyrel remote. 02/16/25-Transferred to Dr Wakefield. Abdominal pacemaker explanted and RV lead capped. Hypertension associated with diabetes 08/07/2017 Type 2 diabetes mellitus wit h hyperglycemia, with long-term current use of insulin 08/07/2017 Assessment & Plan (08/17/2024 11:11 AM DIRECTOR OF DISTRICT OFFICE): Chronic, worsening. Restart Trulicity 3 mg weekly [...] and Trulicity Send me a message via Drobo every week, so we can look at your sugars data Hyperlipidemia associated with type 2 diabetes m abram 02/05/2017 Assessment & Plan (03/31/2024 4:40 PM CDT): Chronic, stable. Continue statin therapy with atorvastatin. Update lipid profile Arteriosclerosis of coronary artery 11/08/2016 Syncope and collapse 11/06/2016 Overview (01/25/2017): Syncope [...] Overview (12/08/2016): Essential hypertension Coronary arteriosclerosis in knik artery 09/28 Overview (12/08/2016): Coronary artery disease involving knik coronary artery of knik heart without angina pectoris Arthralgia of shoulder 09/04/2013 Chronic purulent otitis media 07/14/2013 Overview (12/07/2016): CHR SUP OTITIS MEDIA NOS Neural hearing loss, bilateral 07/14/2013 Overview (12/08/2016): Neural Hearing Loss Bilat Brachial neuritis 02/03/2013 Cervicalgia 02/02/2013 Lumbago 01/30/2013 Resolved Problems Problem Noted Date Diagnosed Date Resolved Date Well controlled type 2 diabetes mellitus 12/09/2022 12/09/2024 Disease of thyroid gland 08/07/201705/2025 Immunizations Immunization Administration Dates Next Due Influenza, [...] drink = 0.6 oz pur e alcohol) OASIS D0700: Social Isolation Answer Da te Recorded Frequency of experiencing loneliness or isolatio n Never 01/27/2025 OASIS A1250: Transportation Answer Date Recorded Lack of Transportation (Medical) No 01/27/2025 Lack of Transportation (Non-Medical) No 01/27/2025 Patient Unable or Declines to Respond No 01/27/2025 OASIS B1300: Health Literacy Answer Dean e Recorded Frequency of needing help to read materials from doctor or pharmacy Never 01/27/2025 [facility] Utilities Answer Date Recorded In the past 12 months has e [employer], gas, oil, or water [employer] threatened to shut off services in your home? No 01/11/2025 Humiliation, Afraid, Rape, and Kick questionnair e Answer Date Recorded Within the last year, have y ou been afraid of your partner or ex-partner? No 12/17/2024 Emotionally Abused Not on file 12/17/2024 Physically Abused Not on file 12/17/2024 Sexually Abused Not on file 12/17/2024 Social Connection and Isolat ion Panel [NHANES] Answer Date Recorded In a typical week, how many times do you talk on the phone with family, friends, or neighbors? More than three times a week 01/11/2025 How often do you get togethe r with friends or relatives? More than three times a week 01/11/2025 How often do you attend chur ch or episcopalian services? More than 4 times per year 01/11/2025 Do you belong to any clubs o r organizations such as mandaen groups, unions, fraternal or athletic groups, or school groups? Yes 01/11/2025 How often do you attend meet ings of the clubs or organizations you belong to? 1 to 4 times per year 01/11/2025 Are you , , di vorced, , never , or living with a partner? 01/11/2025 AUDIT-C Answer Date Recorded Q1: How often do you have a drink containing alc ohol? Monthly or less 12/04/2024 Q2: How many drinks containi ng alcohol do you have on a typical day when you are drinking? 1 or 2 12/04/2024 Q3: How often do you have si x or more drinks on one occasion? Never 12/04/2024 Overall Financial Resource Strain (CARDIA) Answe r Date Recorded How hard is it for you to pa y for the very basics like food, housing, medical care, and heating? Not hard at all 01/11/2025 PHQ-2 Answer Date Recorded PHQ-2 Total Score (If total score is 3 or more points, staff should administer the PHQ-9) 0 08/17/2024 [facility] ional [facility] - Occupational Stress Questionnaire Answer Date Recorded Do you feel stress - tense, restless, nervous, or anxious, or unable to sleep at night because your mind is troubled all the time - these days? Not at all 12/17/2024 Hunger Vital Sign Answer Date Recorded Within the past 12 months, y ou worried that your food would run out before you got the money to buy more. Never true 05/12/20 25 Within the past 12 months, t he food you bought just didn't last and you didn't have money to get more. Never true 01/11/2025 PRAPARE - Transportation Answer Date Re corded In the past 12 months, has l ack of transportation kept you from medical appointments or from getting medications? No 12/31 In the past 12 months, has l ack of transportation kept you from meetings, work, or from getting things needed for daily living? No 01/11/2025 Housing Stability Vital Sign Answer Dean e Recorded In the last 12 months, was t here a time when you were not able to pay the mortgage or rent on time? No 01/11/2025 In the past 12 months, how m any times have you moved where you were living? 0 01/11/2025 At any time in the past 12 m [facility], were you homeless or living in a skilled nursing (including now)? No 01/11/2025 Personal Safety Answer Date Recorded Have you ever been in or are you currently in a harmful physical or emotional relationship or is someone making you feel afraid or unsafe? 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 Male 3:55 AM DIRECTOR OF DISTRICT OFFICE Gender Identity Male 01/23/2020 12:25 AM CDT Sexual Orientation Straight 01/23/2020 12 :25 AM CDT Last Filed Vital Signs Vital Sign Reading Time Taken Comments Blood Pressure 139/79 01/27/2025 10:41 AM CDT Pulse 84 01/27/2025 10:41 AM CDT Temperature 36.6 C (97.8 F) 01/27/2025 10:41 AM CDT Respiratory Rate 18 01/27/2025 10:41 AM CDT Oxygen Saturation 99% 01/27/2025 10:41 AM CDT Inhaled Oxygen Concentration - - Weight 88.5 kg (195 lb) 01/13/2025 1:26 PM CDT Height 172.7 cm (5' 8) 01/13/2025 1:26 PM CDT Body Mass Index 29.65 01/13/2025 1:26 PM CDT Plan of Treatment Not on file Goals Goal Patient Goal Type Associated Problems Recent Progress Patient-Stated? Author [facility] Worsening(01/2021 2:46 PM CDT) Flor Guzman, TOÑO Note: Play golf with minimal to no relief. Medical Devices Implanted Type Area Senior Project Architect Device Identifier Shelf Expiration Date Model / Serial / Lot Kolb Vascular Active Fixation Steroid Eluting Latex Free Sterile Right Atrium Ventricle Ultipace 58cm [id number] - [id number] - [id number] Implanted:Qty: 1 on 01/08/2025 by Theresa Lamb MD at [facility] Lead Left: Chest [employer] [id number] 09/01/2027 [id number] / [id number] / [employer] Active Fixation Steroid Eluting Latex Free Sterile Right Atrium Ventricle Ultipace 52cm [id number]/52 - [id number] - [id number] Implanted:Qty: 1 on 01/08/2025 by Theresa Lamb MD at [facility] Lead Left: Chest [employer] [id number] 10/31/2027 [id number] / [id number] / [employer] Assurity Mri [id number] Chamber Is-1 Connector Thk6mm Pacemaker [id number] - [id number] - [id number] Implanted:Qty: 1 on 01/08/2025 by Theresa Lamb MD at [facility] Pacemaker Left: Chest [employer] [id number] 06/01/2026 [id number] / [id number] / [employer] Liyah Ams 700 Kit Accessory Penile Prosthesis [id number] - [id number] Implanted:Qty: 1 on 06/18/2024 by Jose David Betancourt MD at [facility] N/A: Groin [employer] [id number] 04/08/2029 [id number] / / [id number] [employer] Ams Spectra 12/14mm .5cm Cylinder Concealable Malleable Rear Tip [id number] - [id number] Implanted:Qty: 1 on 06/18/2024 by Jose David Betancourt MD at [facility] N/A: Penis [employer] [id number] 02/15/2029 [id number] / / [id number] [employer] Ams 700 Preconnect 1 Ms Pump 2 Cylinder Penoscrotal Prosthesis [id number] - [id number] Implanted:Qty: 1 on 06/18/2024 by Jose David Betancourt MD at [facility] N/A: Penis [employer] [id number] 10/13/2025 [id number] / / [id number] [employer] Conceal Low Profile [place] 100ml Prosthesis Inhibizone Sterile Latex Free [id number] - [id number] Implanted:Qty: 1 on 06/18/2024 by Jose David Betancourt MD at [facility] Left: Pelvis [employer] [id number] 04/22/2026 [id number] / / [id number] Procedures Procedure Name Priority Date/Time Associated Diagnosis Comments POCT GLUCOSE DEVICE Routine 01/11/2025 1 :21 PM CDT EGFR STAT 01/11/2025 1:00 PM CDT RENAL FUNCTION PANEL STAT 01/11/2025 1:00 PM CDT EGFR Routine 01/11/2025 9:11 AM CDT CBC WITHOUT DIFFERENTIAL STAT 01/11/2025 9:11 AM CDT RENAL FUNCTION PANEL Routine 01/11/2025 9:11 AM CDT CBC WITHOUT DIFFERENTIAL Routine 01/11/2025 9:11 AM CDT POCT GLUCOSE DEVICE Routine 01/11/2025 8 :12 AM CDT POCT GLUCOSE DEVICE Routine 01/10/2025 9 :34 PM CDT TRANSTHORACIC ECHO (TTE) LIMITED/FOLLOW UP W LTD DOPPLER/CF WO CONTRAST Routine 01/10/2025 6:28 PM CDT POCT GLUCOSE DEVICE Routine 01/10/2025 4 :49 PM CDT TYPE AND SCREEN Timed 01/10/2025 12:49 PM CDT POCT GLUCOSE DEVICE Routine 01/10/2025 12:05 PM CDT POCT GLUCOSE DEVICE Routine 01/10/2025 8 :05 AM CDT EGFR Routine 01/10/2025 7:43 AM CDT MAGNESIUM Routine 01/10/2025 7:43 AM CDT RENAL FUNCTION PANEL Routine 01/10/2025 7:43 AM CDT CBC WITHOUT DIFFERENTIAL Routine 01/10/2025 7:43 AM CDT CALCIUM,IONIZED, WHOLE BLOOD Routine 01/10/2025 7:43 AM CDT XR CHEST 1 VIEW IP Routine 01/10/2025 6:05 AM CDT POCT GLUCOSE DEVICE Routine 01/09/2025 9 :09 PM CDT POCT GLUCOSE DEVICE Routine 01/09/2025 5 :32 PM CDT POCT GLUCOSE DEVICE Routine 01/09/2025 12:59 PM CDT POCT GLUCOSE DEVICE Routine 01/09/2025 7 :47 AM CDT EGFR Routine 01/09/2025 6:20 AM CDT MAGNESIUM Routine 01/09/2025 6:20 AM CDT RENAL FUNCTION PANEL Routine 01/09/2025 6:20 AM CDT CBC WITHOUT DIFFERENTIAL Routine 01/09/2025 6:20 AM CDT CALCIUM,IONIZED, WHOLE BLOOD Routine 01/09/2025 6:20 AM CDT XR CHEST 1 VIEW IP Routine 01/09/2025 6:15 AM CDT POCT GLUCOSE DEVICE Routine 01/08/2025 8 :21 PM CDT XR CHEST 1 VIEW ED Urgent/IP Urgent 01/08/2025 6:34 PM CDT FL FLUOROSCOPY < 1 HOUR IP Routine 01/08/2025 5:18 PM CDT INSERTION PACEMAKER CHAMBER DUAL 01/08/2025 3:36 PM CDT Heart block POCT GLUCOSE DEVICE Routine 01/08/2025 11:56 AM CDT INFECTION PREVENTION MRSA ONLY (STAPHYLOCOCCUS AUREUS) PCR Routine 01/08/2025 8:06 AM CDT POCT GLUCOSE DEVICE Routine 01/08/2025 8 :03 AM CDT CRITICAL CARE Routine 01/08/2025 7:02 AM CDT Cardiac tamponade XR CHEST 1 VIEW IP Routine 01/08/2025 5:46 AM CDT POCT GLUCOSE DEVICE Routine 01/08/2025 5 :06 AM CDT EGFR Routine 01/08/2025 12:33 AM CDT MAGNESIUM Routine 01/08/2025 12:33 AM CDT RENAL FUNCTION PANEL Routine 01/08/2025 12:33 AM CDT POCT GLUCOSE DEVICE Routine 01/08/2025 12:26 AM CDT CBC WITHOUT DIFFERENTIAL Routine 01/08/2025 12:20 AM CDT CALCIUM,IONIZED, WHOLE BLOOD Routine 01/08/2025 12:20 AM CDT TROPONIN T HIGH-SENSITIVITY Timed 01/08/2025 12:20 AM CDT POCT GLUCOSE DEVICE Routine 01/07/2025 9 :55 PM CDT CRITICAL CARE Routine 01/07/2025 8:43 PM CDT Cardiac tamponade POCT GLUCOSE DEVICE Routine 01/07/2025 7 :54 PM CDT TYPE AND SCREEN Timed 01/07/2025 6:24 PM CDT TROPONIN T HIGH-SENSITIVITY Timed 01/07/2025 6:24 PM CDT URINALYSIS AND REFLEX TO MICROSCOPIC Routine 01/07/2025 5:32 PM CDT STREP PNEUMONIAE AG, URINE STAT 01/07/2025 5:32 PM CDT LEGIONELLA ANTIGEN, URINE Routine 01/07/2025 5:32 PM CDT RESPIRATORY PATHOGEN PANEL Routine 01/07/2025 5:30 PM CDT CRITICAL CARE Routine 01/07/2025 4:59 PM CDT Cardiac tamponade EGFR STAT 01/07/2025 4:45 PM CDT BILIRUBIN, DIRECT STAT 01/07/2025 4:4 5 PM CDT THYROID FUNCTION CASCADE STAT 01/07/2025 4:45 PM CDT URIC ACID STAT 01/07/2025 4:45 PM CDT BLOOD GAS, VENOUS STAT 01/07/2025 4:4 5 PM CDT SEPSIS LACTATE WITH REFLEX STAT 01/07/2025 4:45 PM CDT FIBRINOGEN STAT 01/07/2025 4:45 PM CDT PROTIME-INR STAT 01/07/2025 4:45 PM CDT APTT STAT 01/07/2025 4:45 PM CDT CBC WITHOUT DIFFERENTIAL STAT 01/07/2025 4:45 PM CDT TROPONIN T HIGH-SENSITIVITY Routine 01/07/2025 4:45 PM CDT CREATINE KINASE (CK), TOTAL Routine 01/07/2025 4:45 PM CDT PRO B-TYPE NATRIURETIC PEPTIDE Routine 01/07/2025 4:45 PM CDT CREATINE KINASE (CK), TOTAL STAT 01/07/2025 4:45 PM CDT LACTATE STAT 01/07/2025 4:45 PM CDT CALCIUM,IONIZED, WHOLE BLOOD STAT 01/07/2025 4:45 PM CDT PHOSPHORUS STAT 01/07/2025 4:45 PM CDT MAGNESIUM STAT 01/07/2025 4:45 PM CDT COMPREHENSIVE METABOLIC PANEL STAT 01/07/2025 4:45 PM CDT VA ARTL CATHJ/CANNULJ MNTR/TRANSFUSION SPX PRQ Routine 01/07/2025 3:[address] CHEST W CONTRAST ED Urgent/IP Urgent 01/07/2025 2:45 PM CDT TRANSTHORACIC ECHO (TTE) COMPLETE W DOPPLER/CF WO CONTRAST STAT 01/07/2025 2:30 PM CDT ECG 12-LEAD Routine 01/07/2025 2:15 PM CDT XR CHEST 1 VIEW ED Urgent/IP Urgent 01/07/2025 1:23 PM CDT POCT GLUCOSE DEVICE Routine 01/07/2025 12:53 PM CDT TROPONIN T HIGH-SENSITIVITY 2-HOUR Timed 01/07/2025 10:28 AM CDT VA CRITICAL CARE ILL/INJURED PATIENT INIT 30-74 MIN Routine 01/07/2025 10:27 AM CDT POCT GLUCOSE DEVICE Routine 01/07/2025 10:12 AM CDT TRANSTHORACIC ECHO (TTE) LIMITED/FOLLOW UP WO DOPPLER/CF WO CONTRAST STAT 01/07/2025 9:32 AM CDT XR CHEST 1 VIEW ED 01/07/2025 9:10 AM CDT SEPSIS LACTATE WITH REFLEX Routine 01/07/2025 8:58 AM CDT MAGNESIUM Add-On 01/07/2025 8:40 AM CDT EGFR STAT 01/07/2025 8:40 AM CDT DIFFERENTIAL AUTO STAT 01/07/2025 8:4 0 AM CDT TROPONIN T HIGH-SENSITIVITY SERIES (BASELINE, 2HR, 4HR, 6HR) STAT 01/07/2025 8:40 AM CDT COMPREHENSIVE METABOLIC PANEL STAT 01/07/2025 8:40 AM CDT CBC WITH AUTO DIFFERENTIAL STAT 01/07/2025 8:40 AM CDT ECG 12-LEAD STAT 01/07/2025 8:39 AM CDT XR CHEST PA LATERAL 2 VIEWS Schedule AYE, Read AYE (Appt Today, Awaiting Results) 01/01/2025 2:55 PM CDT Acute cough XR CHEST PA LATERAL 2 VIEWS Schedule Routine, Read Routine (OP Routine) 12/28/2024 12:23 PM CDT S/P CABG (coronary artery bypass graft) EGFR Routine 12/26/2024 11:57 AM CDT DIFFERENTIAL AUTO Routine 12/26/2024 11:57 AM CDT CBC WITH AUTO DIFFERENTIAL Routine 12/26/2024 11:57 AM CDT COMPREHENSIVE METABOLIC PANEL Routine 12/26/2024 11:57 AM CDT POCT GLUCOSE DEVICE Routine 12/21/2024 12:50 PM CDT URINALYSIS AND REFLEX TO MICROSCOPIC AND CULTURE Routine 12/21/2024 12:22 PM CDT XR CHEST PA LATERAL 2 VIEWS IP Routine 12/21/2024 8:40 AM CDT POCT GLUCOSE DEVICE Routine 12/21/2024 7 :41 AM CDT EGFR Routine 12/21/2024 7:25 AM CDT CBC WITHOUT DIFFERENTIAL Routine 12/21/2024 7:25 AM CDT BASIC METABOLIC PANEL Routine 12/21/2024 7:25 AM CDT POCT GLUCOSE DEVICE Routine 12/20/2024 9 :19 PM CDT POCT GLUCOSE DEVICE Routine 12/20/2024 5 :21 PM CDT POCT GLUCOSE DEVICE Routine 12/20/2024 4 :03 PM CDT POCT GLUCOSE DEVICE Routine 12/20/2024 11:59 AM CDT POCT GLUCOSE DEVICE Routine 12/20/2024 7 :31 AM CDT EGFR Timed 12/20/2024 7:13 AM CDT BASIC METABOLIC PANEL Timed 12/20/2024 7:13 AM CDT CBC WITHOUT DIFFERENTIAL Routine 12/20/2024 7:13 AM CDT XR CHEST 1 VIEW IP Routine 12/20/2024 5:57 AM CDT POCT GLUCOSE DEVICE Routine 12/20/2024 3 :04 AM CDT PEP THERAPY Routine 12/19/2024 10:00 PM CDT POCT GLUCOSE DEVICE Routine 12/19/2024 8 :49 PM CDT POCT GLUCOSE DEVICE Routine 12/19/2024 5 :09 PM CDT POCT GLUCOSE DEVICE Routine 12/19/2024 12:37 PM CDT POCT GLUCOSE DEVICE Routine 12/19/2024 7 :56 AM CDT XR CHEST 1 VIEW IP Routine 12/19/2024 6:35 AM CDT EGFR Timed 12/19/2024 5:44 AM CDT BASIC METABOLIC PANEL Timed 12/19/2024 5:44 AM CDT APTT Routine 12/19/2024 5:44 AM CDT PROTIME-INR Routine 12/19/2024 5:44 AM CDT CBC WITHOUT DIFFERENTIAL Routine 12/19/2024 5:44 AM CDT PEP THERAPY Routine 12/18/2024 10:00 PM CDT POCT GLUCOSE DEVICE Routine 12/18/2024 8 :41 PM CDT PEP THERAPY Routine 12/18/2024 6:00 PM CDT POCT GLUCOSE DEVICE Routine 12/18/2024 5 :14 PM CDT TRANSTHORACIC ECHO (TTE) LIMITED/FOLLOW UP W LTD DOPPLER/CF W CONTRAST Routine 12/18/2024 1:45 PM CDT PEP THERAPY Routine 12/18/2024 1:00 PM CDT POCT GLUCOSE DEVICE Routine 12/18/2024 12:42 PM CDT PEP THERAPY Routine 12/18/2024 8:01 AM CDT POCT GLUCOSE DEVICE Routine 12/18/2024 8 :01 AM CDT XR CHEST PA LATERAL 2 VIEWS IP Routine 12/18/2024 7:49 AM CDT ECG 12-LEAD Routine 12/18/2024 7:22 AM CDT EGFR Timed 12/18/2024 5:56 AM CDT BASIC METABOLIC PANEL Timed 12/18/2024 5:56 AM CDT HEMOGLOBIN A1C Routine 12/18/2024 5:56 AM CDT CBC WITHOUT DIFFERENTIAL Routine 12/18/2024 5:56 AM CDT POCT GLUCOSE DEVICE Routine 12/18/2024 4 :11 AM CDT PEP THERAPY Routine 12/17/2024 10:00 PM CDT POCT GLUCOSE DEVICE Routine 12/17/2024 8 :11 PM CDT PEP THERAPY Routine 12/17/2024 6:56 PM CDT PEP THERAPY Routine 12/17/2024 6:56 PM CDT PEP THERAPY Routine 12/17/2024 6:56 PM CDT PEP THERAPY Routine 12/17/2024 6:56 PM CDT POCT GLUCOSE DEVICE Routine 12/17/2024 5 :49 PM CDT POCT GLUCOSE DEVICE Routine 12/17/2024 1 :05 PM CDT POCT GLUCOSE DEVICE Routine 12/17/2024 8 :06 AM CDT XR CHEST 1 VIEW IP Routine 12/17/2024 6:28 AM CDT EGFR Timed 12/17/2024 6:02 AM CDT BASIC METABOLIC PANEL Timed 12/17/2024 6:02 AM CDT PHOSPHORUS Routine 12/17/2024 6:02 AM CDT MAGNESIUM Routine 12/17/2024 6:02 AM CDT CBC WITHOUT DIFFERENTIAL Routine 12/17/2024 6:02 AM CDT POCT GLUCOSE DEVICE Routine 12/17/2024 2 :48 AM CDT POCT GLUCOSE DEVICE Routine 12/16/2024 8 :28 PM CDT POCT GLUCOSE DEVICE Routine 12/16/2024 4 :36 PM CDT POCT GLUCOSE DEVICE Routine 12/16/2024 11:54 AM CDT CRITICAL CARE Routine 12/16/2024 8:03 AM CDT 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 POCT GLUCOSE DEVICE Routine 12/16/2024 8 :02 AM CDT XR CHEST 1 VIEW IP Routine 12/16/2024 5:56 AM CDT EGFR Timed 12/16/2024 4:37 AM CDT BASIC METABOLIC PANEL Timed 12/16/2024 4:37 AM CDT OXYHEMOGLOBIN, PULMONARY ARTERY Routine 12/16/2024 4:37 AM CDT PHOSPHORUS Routine 12/16/2024 4:37 AM CDT MAGNESIUM Routine 12/16/2024 4:37 AM CDT BLOOD GAS, PULMONARY ARTERY Routine 12/16/2024 4:37 AM CDT CBC WITHOUT DIFFERENTIAL Routine 12/16/2024 4:37 AM CDT POCT GLUCOSE DEVICE Routine 12/16/2024 2 :04 AM CDT POCT GLUCOSE DEVICE Routine 12/15/2024 11:03 PM CDT POCT GLUCOSE DEVICE Routine 12/15/2024 9 :59 PM CDT CRITICAL CARE Routine 12/15/2024 9:01 PM CDT 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 POCT GLUCOSE DEVICE Routine 12/15/2024 8 :53 PM CDT POCT GLUCOSE DEVICE Routine 12/15/2024 7 :53 PM CDT POCT GLUCOSE DEVICE Routine 12/15/2024 6 :48 PM CDT POCT GLUCOSE DEVICE Routine 12/15/2024 5 :50 PM CDT POCT GLUCOSE DEVICE Routine 12/15/2024 4 :49 PM CDT POCT GLUCOSE DEVICE Routine 12/15/2024 3 :50 PM CDT POCT GLUCOSE DEVICE Routine 12/15/2024 2 :52 PM CDT CRITICAL CARE Routine 12/15/2024 1:57 PM CDT 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 POCT GLUCOSE DEVICE Routine 12/15/2024 1 :49 PM CDT POCT GLUCOSE DEVICE Routine 12/15/2024 12:26 PM CDT POCT GLUCOSE DEVICE Routine 12/15/2024 11:28 AM CDT POCT GLUCOSE DEVICE Routine 12/15/2024 10:32 AM CDT POCT GLUCOSE DEVICE Routine 12/15/2024 8 :34 AM CDT ECG 12-LEAD STAT 12/15/2024 7:15 AM CDT POCT GLUCOSE DEVICE Routine 12/15/2024 6 :16 AM CDT XR CHEST 1 VIEW IP Routine 12/15/2024 5:43 AM CDT POCT GLUCOSE DEVICE Routine 12/15/2024 5 :16 AM CDT POCT GLUCOSE DEVICE Routine 12/15/2024 4 :20 AM CDT CBC WITHOUT DIFFERENTIAL Routine 12/15/2024 3:34 AM CDT POCT GLUCOSE DEVICE Routine 12/15/2024 3 :14 AM CDT EGFR Timed 12/15/2024 2:46 AM CDT OXYHEMOGLOBIN, PULMONARY ARTERY Routine 12/15/2024 2:46 AM CDT PHOSPHORUS Routine 12/15/2024 2:46 AM CDT BASIC METABOLIC PANEL Timed 12/15/2024 2:46 AM CDT CALCIUM,IONIZED, WHOLE BLOOD Routine 12/15/2024 2:46 AM CDT BLOOD GAS, PULMONARY ARTERY Routine 12/15/2024 2:46 AM CDT MAGNESIUM Routine 12/15/2024 2:46 AM CDT POCT GLUCOSE DEVICE Routine 12/15/2024 2 :23 AM CDT POCT GLUCOSE DEVICE Routine 12/15/2024 12:59 AM CDT EXTUBATION Routine 12/15/2024 12:22 AM CDT POCT GLUCOSE DEVICE Routine 12/14/2024 11:53 PM CDT BLOOD GAS, ARTERIAL Routine 12/14/2024 11:50 PM CDT CBC WITHOUT DIFFERENTIAL Routine 12/14/2024 11:12 PM CDT POCT GLUCOSE DEVICE Routine 12/14/2024 11:03 PM CDT EGFR Routine 12/14/2024 10:53 PM CDT CALCIUM,IONIZED, WHOLE BLOOD Routine 12/14/2024 10:53 PM CDT MAGNESIUM Routine 12/14/2024 10:53 PM CDT BASIC METABOLIC PANEL Routine 12/14/2024 10:53 PM CDT TYPE AND SCREEN Timed 12/14/2024 10:53 PM CDT POCT GLUCOSE DEVICE Routine 12/14/2024 10:12 PM CDT CRITICAL CARE Routine 12/14/2024 9:57 PM CDT 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 POCT GLUCOSE DEVICE Routine 12/14/2024 9 :11 PM CDT POCT GLUCOSE DEVICE Routine 12/14/2024 8 :09 PM CDT POCT GLUCOSE DEVICE Routine 12/14/2024 7 :00 PM CDT EGFR STAT 12/14/2024 6:10 PM CDT PHOSPHORUS Add-On 12/14/2024 6:10 PM CDT MAGNESIUM STAT 12/14/2024 6:10 PM CDT CALCIUM,IONIZED, WHOLE BLOOD STAT 12/14/2024 6:10 PM CDT APTT STAT 12/14/2024 6:10 PM CDT PROTIME-INR STAT 12/14/2024 6:10 PM CDT CBC WITHOUT DIFFERENTIAL STAT 12/14/2024 6:10 PM CDT BLOOD GAS, ARTERIAL STAT 12/14/2024 6 :10 PM CDT BASIC METABOLIC PANEL STAT 12/14/2024 6:10 PM CDT XR CHEST 1 VIEW Critical/Life- Threatening 12/14/2024 6:08 PM CDT CRITICAL CARE Routine 12/14/2024 6:07 PM CDT 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 POCT GLUCOSE DEVICE Routine 12/14/2024 5 :50 PM CDT POC BLOOD GAS AND CHEMISTRIES, ARTERIAL Routine 12/14/2024 4:28 PM CDT POCT ACTIVATED CLOTTING TIME, HIGH RANGE Routine 12/14/2024 4:26 PM CDT POCT ACTIVATED CLOTTING TIME, HIGH RANGE Routine 12/14/2024 3:54 PM CDT POC BLOOD GAS AND CHEMISTRIES, ARTERIAL Routine 12/14/2024 3:40 PM CDT POCT ACTIVATED CLOTTING TIME, HIGH RANGE Routine 12/14/2024 3:38 PM CDT PLATELET COUNT STAT 12/14/2024 3:24 PM CDT POC BLOOD GAS AND CHEMISTRIES, ARTERIAL Routine 12/14/2024 3:13 PM CDT POCT ACTIVATED CLOTTING TIME, HIGH RANGE Routine 12/14/2024 3:11 PM CDT POC BLOOD GAS AND CHEMISTRIES, ARTERIAL Routine 12/14/2024 2:34 PM CDT POCT ACTIVATED CLOTTING TIME, HIGH RANGE Routine 12/14/2024 2:34 PM CDT POC BLOOD GAS AND CHEMISTRIES, ARTERIAL Routine 12/14/2024 1:49 PM CDT POCT ACTIVATED CLOTTING TIME, HIGH RANGE Routine 12/14/2024 1:48 PM CDT POC BLOOD GAS AND CHEMISTRIES, ARTERIAL Routine 12/14/2024 1:15 PM CDT POCT ACTIVATED CLOTTING TIME, HIGH RANGE Routine 12/14/2024 1:12 PM CDT POC BLOOD GAS AND CHEMISTRIES, ARTERIAL Routine 12/14/2024 12:15 PM CDT ANESTHESIA GABI Routine 12/14/2024 12:09 PM CDT POCT ACTIVATED CLOTTING TIME, HIGH RANGE Routine 12/14/2024 12:06 PM CDT ANESTHESIA CENTRAL VENOUS LINE PLACEMENT Routine 12/14/2024 11:59 AM CDT ANESTHESIA CENTRAL VENOUS LINE PLACEMENT Routine 12/14/2024 11:59 AM CDT VA AN ELECTIVE ENDOTRACHEAL AIRWAY Routine 12/14/2024 11:51 AM CDT ANESTHESIA ARTERIAL LINE PLACEMENT Routine 12/14/2024 11:49 AM CDT CORONARY ARTERY BYPASS GRAFT - INTERNAL MAMMARY/RADIAL ARTERY/SAPHENOUS VEIN GRAFT - LEG 12/14/2024 11:23 AM CDT 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, unspecified vessel or lesion type PREPARE RBC STAT 12/14/2024 9:02 AM CDT POCT GLUCOSE DEVICE Routine 12/14/2024 8 :57 AM CDT TRANSTHORACIC ECHO (TTE) COMPLETE W DOPPLER/CF WO CONTRAST Routine 12/08/2024 8:39 AM CDT Coronary arteriosclerosis in knik artery TROPONIN T HIGH-SENSITIVITY 2-HOUR Timed 12/07/2024 1:11 PM CDT EGFR STAT 12/07/2024 11:12 AM CDT TROPONIN T HIGH-SENSITIVITY SERIES (BASELINE, 2HR, 4HR, 6HR) STAT 12/07/2024 11:12 AM CDT COMPREHENSIVE METABOLIC PANEL STAT 12/07/2024 11:12 AM CDT DIFFERENTIAL AUTO STAT 12/07/2024 11:09 AM CDT CBC WITH AUTO DIFFERENTIAL STAT 12/07/2024 11:09 AM CDT XR CHEST 1 VIEW ED 12/07/2024 10:40 AM CDT ECG 12-LEAD STAT 12/07/2024 10:24 AM CDT XR CHEST PA LATERAL 2 VIEWS Schedule Routine, Read Routine (OP Routine) 12/04/2024 10:45 AM CDT 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, unspecified vessel or lesion type ECG 12-LEAD Routine 12/04/2024 10:34 AM CDT 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, unspecified vessel or lesion type EGFR Routine 12/04/2024 9:57 AM CDT 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, unspecified vessel or lesion type BASIC METABOLIC PANEL Routine 12/04/2024 9:57 AM CDT 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, unspecified vessel or lesion type PROTIME-INR Routine 12/04/2024 9:57 AM CDT 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, unspecified vessel or lesion type APTT Routine 12/04/2024 9:57 AM CDT 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, unspecified vessel or lesion type Shortness of breath CBC WITHOUT DIFFERENTIAL Routine 12/04/2024 9:57 AM CDT 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, unspecified vessel or lesion type TYPE AND SCREEN Routine 12/04/2024 9:57 AM CDT 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, unspecified vessel or lesion type URINALYSIS AND REFLEX TO MICROSCOPIC AND CULTURE Routine 12/04/2024 9:57 AM CDT 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, unspecified vessel or lesion type TROPONIN T HIGH-SENSITIVITY 2-HOUR Timed 11/17/2024 10:14 PM CDT TROPONIN T HIGH-SENSITIVITY SERIES (BASELINE, 2HR, 4HR, 6HR) Add-On 11/17/2024 7:14 PM CDT EGFR STAT 11/17/2024 7:14 PM CDT DIFFERENTIAL AUTO STAT 11/17/2024 7:1 4 PM CDT COMPREHENSIVE METABOLIC PANEL STAT 11/17/2024 7:14 PM CDT CBC WITH AUTO DIFFERENTIAL STAT 11/17/2024 7:14 PM CDT RESPIRATORY PATHOGEN PANEL STAT 11/17/2024 7:14 PM CDT ECG 12-LEAD Routine 11/17/2024 7:13 PM CDT LIPID PANEL Routine 04/01/2024 11:09 AM CDT Type 2 diabetes mellitus with hyperglycemia, with long-term current use of insulin (HCC) ALBUMIN CREATININE RATIO, URINE Routine 04/01/2024 11:09 AM CDT Type 2 diabetes mellitus with hyperglycemia, with long-term current use of insulin (HCC) from Last 3 Months or Most Recently Relevant to Health Maintenance Results * (ABNORMAL) POCT glucose (01/11/2025 1:21 PM CDT) Pathologist [facility] Glucose, POC 220(H) 70 - 199 mg/dL POC Performer [id number] JEFF BRODERICK Blood 01/11/2025 1:21 PM CDT 01/11/2025 1:21 PM CDT us Génesis Delatorre MD LAB POCT ORDERABLES - DEVICE Final Result [facility]ODERICK [id number] [place] [address] * eGFR (01/11/2025 1:00 PM CDT) Pathologist [facility] eGFR >90 >=60 mL/min/1. 73 m2 Comment: Interpretive Data [...] interpretive data was last reviewed 2021. Blood 01/11/2025 1:00 PM CDT 01/11/2025 1:00 PM CDT Jose Vega BACKEND DEVELOPER LAB BLOOD ORDERABLES Final Result [facility] [id number] [place] [address] * (ABNORMAL) Renal function panel (01/11/2025 1:00 PM CDT) Sodium 141 135 - 145 mmol/L Potassium, pl 3.8 3.3 - 4.9 mmol/L [facility] Chloride 100 97 - 110 mmol/L [facility] CO2 27 22 - 32 mmol/L [facility] Anion gap 14 2 - 15 mmol/L [facility] BUN 16 6 - 25 mg/dL [facility] Creatinine 0.67(L) 0.80 - 1.30 mg/dL [facility] Glucose 198 70 - 199 mg/dL [facility] Comment: Interpretive Data Fasting glucose >/= 126 mg/dl is diagnostic for diabetes. Fasting is defined as no caloric intake for at least 8 hours. Fasting glucose between 100 mg/dl to 125 mg/dl is diagnostic of prediabetes. In a patient with classic symptoms of hyperglycemia or hyperglycemic crisis, a random glucose >/= 200 mg/dl is diagnostic for diabetes. In the absence of unequivocal hyperglycemia, results should be confirmed by repeat testing. The classification and Diagnosis of Diabetes Diabetes Care 202; 46: S19-S40. Current interpretive data was last revised 2022. Calcium 9.3 8.5 - 10.3 mg/dL [facility] Phosphorus, pl 2.8 2.3 - 4.5 mg/dL [facility] Albumin 3.6 3.5 - 5.0 g/dL [facility] Blood 01/11/2025 1:00 PM CDT 01/11/2025 1:00 PM CDT us Jose Vega NP LAB BLOOD ORDERABLES Final Result [facility] [id number] [place] [address] * eGFR (01/11/2025 9:11 AM CDT) eGFR >90 >=60 mL/min/1. 73 m2 Comment: Interpretive Data [...] interpretive data was last reviewed 2021. Blood 01/11/2025 9:11 AM CDT 01/11/2025 1:02 PM CDT us Theresa Lamb MD LAB BLOOD ORDERABLES Final R esult Performing Organization Address City/[facility] Co de Phone Number JEFF BRODERICK [address] [place] [address] * (ABNORMAL) CBC without differential (01/11/2025 9:11 AM CDT) WBC 8.35 3.80 - 9.90 K/cumm Hgb 10.8(L) 13.0 - 17.5 g/dL [facility] Hct 36.4(L) 38.9 - 50.3 % [facility] Plt 263 150 - 400 K/cumm [facility] MPV 9.3 9.1 - 12.3 fL [facility] RBC 4.16(L) 4.30 - 5.80 M/cumm [facility] MCV 87.5 81.3 - 96.4 fL [facility] MCH 26.0(L) 27.1 - 33.3 pg [facility] MCHC 29.7(L) 32.3 - 35.7 g/dL [facility] RDW CV 13.9 11.1 - 14.9 % [facility] RDW SD 43.8 35.7 - 48.1 fL [facility] NRBC abs 0.00 0.00 - 0.01 K/cumm [facility] Blood 01/11/2025 9:11 AM CDT 01/11/2025 1:02 PM CDT Jose Vega NP LAB BLOOD ORDERABLES Final Result Performing Organization Address [facility] Co de Phone Number JEFF BRODERICK [address] Department of [place], [place] [id number] * (ABNORMAL) CBC without differential (01/11/2025 9:11 AM CDT) WBC 8.77 3.80 - 9.90 K/cumm Hgb 11.0(L) 13.0 - 17.5 g/dL [facility] Hct 36.3(L) 38.9 - 50.3 % [facility] Plt 258 150 - 400 K/cumm [facility] MPV 9.0(L) 9.1 - 12.3 fL [facility] RBC 4.17(L) 4.30 - 5.80 M/cumm [facility] MCV 87.1 81.3 - 96.4 fL [facility] MCH 26.4(L) 27.1 - 33.3 pg [facility] MCHC 30.3(L) 32.3 - 35.7 g/dL [facility] RDW CV 13.8 11.1 - 14.9 % [facility] RDW SD 44.1 35.7 - 48.1 fL [facility] NRBC abs 0.00 0.00 - 0.01 K/cumm [facility] Blood 01/11/2025 9:11 AM CDT 01/11/2025 1:02 PM CDT us Theresa Lamb MD LAB BLOOD ORDERABLES Final R esult [facility] [id number] [place] [address] * (ABNORMAL) Renal function panel (01/11/2025 9:11 AM CDT) Sodium 138 135 - 145 mmol/L Potassium, pl 3.7 3.3 - 4.9 mmol/L [facility] Chloride 98 97 - 110 mmol/L [facility] CO2 29 22 - 32 mmol/L [facility] Anion gap 11 2 - 15 mmol/L [facility] BUN 16 6 - 25 mg/dL [facility] Creatinine 0.67(L) 0.80 - 1.30 mg/dL [facility] Glucose 198 70 - 199 mg/dL [facility] Comment: Interpretive Data Fasting glucose >/= 126 mg/dl is diagnostic for diabetes. Fasting is defined as no caloric intake for at least 8 hours. Fasting glucose between 100 mg/dl to 125 mg/dl is diagnostic of prediabetes. In a patient with classic symptoms of hyperglycemia or hyperglycemic crisis, a random glucose >/= 200 mg/dl is diagnostic for diabetes. In the absence of unequivocal hyperglycemia, results should be confirmed by repeat testing. The classification and Diagnosis of Diabetes Diabetes Care 2021; 46: S19-S40. Current interpretive data was last revised 2022. Calcium 9.4 8.5 - 10.3 mg/dL [facility] Phosphorus, pl 2.8 2.3 - 4.5 mg/dL [facility] Albumin 3.7 3.5 - 5.0 g/dL [facility] Blood 01/11/2025 9:11 AM CDT 01/11/2025 1:02 PM CDT Theresa Lamb MD LAB BLOOD ORDERABLES Final R esult JEFF BROD[address] Department of [place], [place] [phone] * POCT glucose (01/11/2025 8:12 AM CDT) Pathologist [facility] Glucose, POC 189 70 - 199 mg/dL POC Performer [id number] [facility] Blood 01/11/2025 8:12 AM CDT 01/11/2025 8:12 AM CDT Génesis Delatorre MD LAB POCT ORDERABLES - DEVICE Final Result Performing Organization Address [facility] Co de Phone Number SAMANTHAROGER BRODERICK [address] [place] [address] * (ABNORMAL) POCT glucose (01/10/2025 9:34 PM CDT) Glucose, POC 250(H) 70 - 199 mg/dL POC Performer [id number] [facility] Blood 01/10/2025 9:34 PM CDT 01/10/2025 9:34 PM CDT Génesis Delatorre MD LAB POCT ORDERABLES - DEVICE Final Result Performing Organization Address City/[facility] Co de Phone Number JEFF BRODERICK [address] Department of [place], [place] [phone] * TRANSTHORACIC ECHO (TTE) LIMITED/FOLLOW UP W LTD DOPPLER/CF WO CONTRAST (01/10/2025 6:28 PM CDT) EF Mod BP 60 % CONS SCIMAGE Anatomical Region Laterality Modality Ultrasound 01/10/2025 5:28 PM CDT Narrative 01/10/2025 5:59 [place] [address] Limited Echocardiogram Report Patient Name: SHAWN SHULTZ B : 1950 Study Date: 01/10/2025 5:28:40 PM Gender: M Tech: [place] Location: [id number] Ref Provider: KRISTAL EDWARD Height(Cm): 168 BSA: 2.07 Weight(Kg): 92 Heart Rate: 99 BP: 142/61 Quality: Good Order Provider: KRISTAL EDWARD PROCEDURES: Echocardiographic Report: Limited transthoracic echocardiogram with 2D and M-Mode. INDICATIONS: Assess for Pericardial Effusion. MEASUREMENTS: 2D/MM Value Range EF Mod BP 60 % [ 52 - 72 ] 2D/MM Value Range - FINDINGS: Left Ventricle: Normal left ventricular systolic function with no focal wall motion abnormalities. Normal left ventricular size. Mild concentric left ventricular hypertrophy. Impaired diastolic relaxation Grade I. Ejection fraction is measured at 60 %. Right Ventricle: Linear artifact in right ventricle suggestive of catheter(s), pacemaker lead(s), or ICD lead(s). Pericardium: Moderate pericardial effusion. CONCLUSIONS: Normal left ventricular systolic function with postoperative pattern of septal motion. Normal left ventricular size. Mild concentric left ventricular hypertrophy. Impaired diastolic relaxation Grade I. Ejection fraction is estimated at 60 %. Linear artifact in right ventricle suggestive of pacemaker lead(s).. Moderate pericardial effusion mostly posterior and lateral to the left ventricle with a maximum fluid pocket thickness of 1.8 cm. There was not much fluid over the right ventricle. The smaller effusion over the right atrium. There is evidence of compression of the left atrial free wall. Doppler interrogation showed respiratory variation of mitral valve and tricuspid valve inflows suggestive of tamponade physiology. Limited 2D echo study. Electronically Signed By: Jose Godoy MD 01/10/2025 5:59:06 PM CDT Procedure Note Jose Godoy MD - 01/10/2025 [place] [address] Limited Echocardiogram Report Patient Name: SHAWN SHULTZ B : 1950 Study Date: 01/10/2025 5:28:40 PM Gender: M Tech: [place] Location: [place] [address] Ref Provider: KRISTAL EDWARD Height(Cm): 168 BSA: 2.07 Weight(Kg): 92 Heart Rate: 99 BP: 142/61 Quality: Good Order Provider: KRISTAL EDWARD PROCEDURES: Echocardiographic Report: Limited transthoracic echocardiogram with 2D and M-Mode. INDICATIONS: Assess for Pericardial Effusion. MEASUREMENTS: 2D/MM Value Range EF Mod BP 60 % [ 52 - 72 ] 2D/MM Value Range - FINDINGS: Left Ventricle: Normal left ventricular systolic function with no focal wall motionabnormalities. Normal left ventricular size. Mild concentric left ventricular hypertrophy.Impaired diastolic relaxation Grade I. Ejection fraction is measured at 60 %. Right Ventricle: Linear artifact in right ventricle suggestive of catheter(s), pacemakerlead(s), or ICD lead(s). Pericardium: Moderate pericardial effusion. CONCLUSIONS: Normal left ventricular systolic function with postoperative pattern ofseptal motion. Normal left ventricular size. Mild concentric left ventricularhypertrophy. Impaired diastolic relaxation Grade I. Ejection fraction is estimated at 60 %. Linear artifact in right ventricle suggestive of pacemaker lead(s).. Moderate pericardial effusion mostly posterior and lateral to the leftventricle with a maximum fluid pocket thickness of 1.8 cm. There was not much fluid overthe right ventricle. The smaller effusion over the right atrium. There is evidenceof compression of the left atrial free wall. Doppler interrogation showed respiratoryvariation of mitral valve and tricuspid valve inflows suggestive of tamponadephysiology. Limited 2D echo study. Electronically Signed By: Jose Godoy MD 01/10/2025 5:59:06 PM CDT us Kristal Edward NP CV ECHO PROCEDURES Final Result * (ABNORMAL) POCT glucose (01/10/2025 4:49 PM CDT) Glucose, POC 246(H) 70 - 199 mg/dL POC Performer [id number] [facility] Blood 01/10/2025 4:49 PM CDT 01/10/2025 4:49 PM CDT Génesis Delatorre MD LAB POCT ORDERABLES - DEVICE Final Result Performing Organization Address [facility]/ZIP Co de Phone Number JEFF [address] Department of Laboratories [place] [phone] * Type and screen (01/10/2025 12:49 PM CDT) ABO Rh A Negative Antonio, indirect Negative [facility] Blood 01/10/2025 12:4 9 PM CDT 01/10/2025 12:53 PM CDT [facility]ative [facility] 01/10/[facility]25 1:41 PM CDT Has the patient had Daratumumab or Isatuximab in the past 6 months?->Unknown Theresa Lamb MD LAB BLOOD BANK TEST ORDERABL ES Final Result Performing Organization Address City/[facility]/ZIP Co de Phone Number JEFF BRODERICK [address] [facility] [place] [address] * (ABNORMAL) POCT glucose (01/10/2025 12:05 PM CDT) Glucose, POC 208(H) 70 - 199 mg/dL POC Performer [id number] [facility] Blood 01/10/2025 12:0 5 PM CDT 01/10/2025 12:05 PM CDT Génesis Delatorre MD LAB POCT ORDERABLES - DEVICE Final Result Performing Organization Address [facility] de Phone Number JEFF [address] [address] [place] [address] * POCT glucose (01/10/2025 8:05 AM CDT) Glucose, POC 194 70 - 199 mg/dL POC Performer [id number] [facility] Blood 01/10/2025 8:05 AM CDT 01/10/2025 8:05 AM CDT Génesis Delatorre MD LAB POCT ORDERABLES - DEVICE Final Result Performing Organization Address [facility] de Phone Number JEFF BRODERICK [address] [address] [facility] [place] [address] * Calcium, ionized, whole blood (01/10/2025 7:43 AM CDT) Ca, ionized, bld 4.63 4.50 - 5.10 mg/dL Blood 01/10/2025 7:43 AM CDT 01/10/2025 7:53 AM CDT Theresa Lamb MD LAB BLOOD ORDERABLES Final R esult Performing Organization Address [facility] Co de Phone Number JEFF BROD[address]ICK [address] [place] [address] * eGFR (01/10/2025 7:43 AM CDT) eGFR >90 >=60 mL/min/1. 73 m2 Comment: Interpretive Data [...] interpretive data was last reviewed 2021. Blood 01/10/2025 7:43 AM CDT 01/10/2025 7:55 AM CDT us Fran Mcgrath NP LAB BLOOD ORDERABLES Fin al Result JEFF [address] [place] [address] * (ABNORMAL) CBC without differential (01/10/2025 7:43 AM CDT) Pathologist [facility] WBC 8.90 3.80 - 9.90 K/cumm Hgb 9.9(L) 13.0 - 17.5 g/dL [facility] Hct 32.4(L) 38.9 - 50.3 % [facility] Plt 232 150 - 400 K/cumm [facility] MPV 8.7(L) 9.1 - 12.3 fL [facility] RBC 3.78(L) 4.30 - 5.80 M/cumm [facility] MCV 85.7 81.3 - 96.4 fL [facility] MCH 26.2(L) 27.1 - 33.3 pg [facility] CH MCHC 30.6(L) 32.3 - 35.7 g/dL [facility] CH RDW CV 13.6 11.1 - 14.9 % [facility] RDW SD 42.4 35.7 - 48.1 fL [facility] NRBC abs 0.00 0.00 - 0.01 K/cumm [facility] Blood 01/10/2025 7:43 AM CDT 01/10/2025 7:55 AM CDT Theresa Lamb MD LAB BLOOD ORDERABLES Final R esult Performing Organization Address City/[facility]/ZIP Co de Phone Number JEFF BROD[address]ICK [address] [place] [address] * Magnesium (01/10/2025 7:43 AM CDT) Pathologist [facility] Magnesium 1.9 1.4 - 2.5 mg/dL Blood 01/10/2025 7:43 AM CDT 01/10/2025 7:55 AM CDT Theresa Lamb MD LAB BLOOD ORDERABLES Final R esult Performing Organization Address City/[facility] Co de Phone Number JEFF BROD[address]ICK [address] [place] [address] * (ABNORMAL) Renal function panel (01/10/2025 7:43 AM CDT) Sodium 136 135 - 145 mmol/L Potassium, pl 4.1 3.3 - 4.9 mmol/L [facility] Chloride 102 97 - 110 mmol/L [facility] CO2 26 22 - 32 mmol/L [facility] Anion gap 8 2 - 15 mmol/L [facility] BUN 14 6 - 25 mg/dL [facility] Creatinine 0.67(L) 0.80 - 1.30 mg/dL [facility] Glucose 186 70 - 199 mg/dL [facility] Comment: Interpretive Data Fasting glucose >/= 126 mg/dl is diagnostic for diabetes. Fasting is defined as no caloric intake for at least 8 hours. Fasting glucose between 100 mg/dl to 125 mg/dl is diagnostic of prediabetes. In a patient with classic symptoms of hyperglycemia or hyperglycemic crisis, a random glucose >/= 200 mg/dl is diagnostic for diabetes. In the absence of unequivocal hyperglycemia, results should be confirmed by repeat testing. The classification and Diagnosis of Diabetes Diabetes Care 202; 46: S19-S40. Current interpretive data was last revised 2022. Calcium 8.9 8.5 - 10.3 mg/dL [facility] Phosphorus, pl 2.3 2.3 - 4.5 mg/dL [facility] Albumin 3.3(L) 3.5 - 5.0 g/dL [facility] Blood 01/10/2025 7:43 AM CDT 01/10/2025 7:55 AM CDT us Theresa Lamb MD LAB BLOOD ORDERABLES Final R esult [facility] [address] [place] [address] * XR Chest 1 View (01/10/2025 6:05 AM CDT) Anatomical Region Laterality Modality Body, Chest N/A Computed Radiogr aphy 01/10/2025 9:31 AM CDT Impressions 01/10/2025 9:31 AM CDT Small left effusion and basilar subsegmental atelectasis otherwise no acute pulmonary disease. Electronically signed by: Shanice Morocho M.D. Narrative 01/10/2025 9:31 AM CDT Examination: XR CHEST 1 VIEW Date: 01/10/2025 4:45 AM History: Cardiac tamponade Comparison: 01/09/2025. Findings: Normal heart size, sternotomy, left pacemaker with right atrial and ventricular leads, and loop recorder is seen. There are disconnecting pacemaker leads extending from the right axilla to the right atrium. Blunting of the left costophrenic angle with left lower lobe subsegmental atelectasis is seen. The right hemithorax is clear. Procedure Note Shanice Morocho MD - 01/10/2025 Examination: XR CHEST 1 VIEW Date: 01/10/2025 4:45 AM History: Cardiac tamponade Comparison: 01/09/2025. Findings: Normal heart size, sternotomy, left pacemaker with right atrial and ventricular leads, and loop recorder is seen. There are disconnecting pacemaker leads extending from the right axilla to the right atrium. Blunting of the left costophrenic angle with left lower lobe subsegmental atelectasis is seen. The right hemithorax is clear. IMPRESSION: Small left effusion and basilar subsegmental atelectasis otherwise no acute pulmonary disease. Electronically signed by: Shanice Morocho M.D. Theresa Lamb MD IMG XR PROCEDURES Final Resu lt * (ABNORMAL) POCT glucose (01/09/2025 9:09 PM CDT) Glucose, POC 239(H) 70 - 199 mg/dL POC Performer [id number] [facility] CH Blood 01/09/2025 9:09 PM CDT 01/09/2025 9:09 PM CDT Génesis Delatorre MD LAB POCT ORDERABLES - DEVICE Final Result Performing Organization Address [facility] Co de Phone Number JEFF BRODERICK [address] [address] [place] [address] * (ABNORMAL) POCT glucose (01/09/2025 5:32 PM CDT) Glucose, POC 254(H) 70 - 199 mg/dL POC Performer [id number] [facility] Blood 01/09/2025 5:32 PM CDT 01/09/2025 5:32 PM CDT Génesis Delatorre MD LAB POCT ORDERABLES - DEVICE Final Result Performing Organization Address City/[facility] Co de Phone Number JEFF [address] [address] [place] [address] * (ABNORMAL) POCT glucose (01/09/2025 12:59 PM CDT) Glucose, POC 226(H) 70 - 199 mg/dL POC Performer [id number] [facility] Blood 01/09/2025 12:5 9 PM CDT 01/09/2025 12:59 PM CDT Génesis Delatorre MD LAB POCT ORDERABLES - DEVICE Final Result Performing Organization Address City/[facility]/ZIP Co de Phone Number JEFF BRODER[address] [address] [address] [place], [place] [phone] * POCT glucose (01/09/2025 7:47 AM CDT) Glucose, POC 191 70 - 199 mg/dL POC Performer [id number] [facility] Blood 01/09/2025 7:47 AM CDT 01/09/2025 7:47 AM CDT Génesis Delatorre MD LAB POCT ORDERABLES - DEVICE Final Result Performing Organization Address [facility] Co de Phone Number SAMANTHAROGER BRODERICK [address] [address] [place] [address] * Calcium, ionized, whole blood (01/09/2025 6:20 AM CDT) Ca, ionized, bld 4.52 4.50 - 5.10 mg/dL Blood 01/09/2025 6:20 AM CDT 01/09/2025 7:08 AM CDT Theresa Lamb MD LAB BLOOD ORDERABLES Final R esult Performing Organization Address City/[facility] Co de Phone Number JEFF BROD[address] [address] [address] [facility] [place], [place] [phone] * eGFR (01/09/2025 6:20 AM CDT) eGFR >90 >=60 mL/min/1. 73 m2 Comment: Interpretive Data [...] interpretive data was last reviewed 2021. Blood 01/09/2025 6:20 AM CDT 01/09/2025 7:11 AM CDT Fran Mcgrath NP LAB BLOOD ORDERABLES Fin al Result [facility] [address] [address] [place] [address] * (ABNORMAL) CBC without differential (01/09/2025 6:20 AM CDT) WBC 10.74(H) 3.80 - 9.90 K/cumm Hgb 9.7(L) 13.0 - 17.5 g/dL [facility] Hct 32.0(L) 38.9 - 50.3 % [facility] Plt 279 150 - 400 K/cumm [facility] MPV 8.8(L) 9.1 - 12.3 fL [facility] RBC 3.70(L) 4.30 - 5.80 M/cumm [facility] MCV 86.5 81.3 - 96.4 fL [facility] MCH 26.2(L) 27.1 - 33.3 pg [facility] MCHC 30.3(L) 32.3 - 35.7 g/dL [facility] RDW CV 13.4 11.1 - 14.9 % [facility] RDW SD 42.2 35.7 - 48.1 fL [facility] NRBC abs 0.00 0.00 - 0.01 K/cumm [facility] Blood 01/09/2025 6:20 AM CDT 01/09/2025 7:11 AM CDT Theresa Lamb MD LAB BLOOD ORDERABLES Final R esult Performing Organization Address City/[facility] Co de Phone Number JEFF [address] [address] [place] [address] * Magnesium (01/09/2025 6:20 AM CDT) Pathologist [facility] Magnesium 1.9 1.4 - 2.5 mg/dL Blood 01/09/2025 6:20 AM CDT 01/09/2025 7:11 AM CDT Theresa Lamb MD LAB BLOOD ORDERABLES Final R esult Performing Organization Address [facility] de Phone Number [facility] [address] [place] [address] * (ABNORMAL) Renal function panel (01/09/2025 6:20 AM CDT) Sodium 135 135 - 145 mmol/L Potassium, pl 3.9 3.3 - 4.9 mmol/L [facility] Chloride 101 97 - 110 mmol/L [facility] CO2 24 22 - 32 mmol/L [facility] Anion gap 10 2 - 15 mmol/L [facility] BUN 17 6 - 25 mg/dL [facility] Creatinine 0.75(L) 0.80 - 1.30 mg/dL [facility] Glucose 195 70 - 199 mg/dL [facility] Comment: Interpretive Data Fasting glucose >/= 126 mg/dl is diagnostic for diabetes. Fasting is defined as no caloric intake for at least 8 hours. Fasting glucose between 100 mg/dl to 125 mg/dl is diagnostic of prediabetes. In a patient with classic symptoms of hyperglycemia or hyperglycemic crisis, a random glucose >/= 200 mg/dl is diagnostic for diabetes. In the absence of unequivocal hyperglycemia, results should be confirmed by repeat testing. The classification and Diagnosis of Diabetes Diabetes Care 2021; 46: S19-S40. Current interpretive data was last revised 2022. Calcium 8.5 8.5 - 10.3 mg/dL [facility] Phosphorus, pl 2.7 2.3 - 4.5 mg/dL [facility] Albumin 3.3(L) 3.5 - 5.0 g/dL [facility] Blood 01/09/2025 6:20 AM CDT 01/09/2025 7:11 AM CDT us Theresa Lamb MD LAB BLOOD ORDERABLES Final R esult JE[address] [address] [address] [place] [address] * XR Chest 1 View (01/09/2025 6:15 AM CDT) Anatomical Region Laterality Modality Body, Chest N/A Computed Radiogr aphy 01/09/2025 6:39 AM CDT Impressions 01/09/2025 6:39 AM CDT No pneumothorax. Electronically signed by: Zenon Wing M.D. Narrative 01/09/2025 6:39 AM CDT EXAMINATION: XR CHEST 1 VIEW HISTORY: The patient is a 74-year-old male who has had placement of a pacemaker. Comparison made with the previous study dated 01/08/2025. TECHNIQUE: AP portable view of the chest. FINDINGS: Left-sided transvenous pacemaker noted with the electrode tips in good position. Lungs clear. Cardiomegaly with aortic atherosclerosis. No failure. No pneumonia thorax. Procedure Note Zenon Wing MD - 01/09/2025 EXAMINATION: XR CHEST 1 VIEW HISTORY: The patient is a 74-year-old male who has had placement of a pacemaker. Comparison made with the previous study dated 01/08/2025. TECHNIQUE: AP portable view of the chest. FINDINGS: Left-sided transvenous pacemaker noted with the electrode tips in good position. Lungs clear. Cardiomegaly with aortic atherosclerosis. No failure. No pneumonia thorax. IMPRESSION: No pneumothorax. Electronically signed by: Zenon Wing M.D. Theresa Lamb MD IMG XR PROCEDURES Final Resu lt * POCT glucose (01/08/2025 8:21 PM CDT) Glucose, POC 161 70 - 199 mg/dL POC Performer [id number] JEFF BRODERICK Blood 01/08/2025 8:21 PM CDT 01/08/2025 8:21 PM CDT Génesis Delatorre MD LAB POCT ORDERABLES - DEVICE Final Result SAM[address]AROGER [address] [place] [address] * XR Chest 1 Vw Portable (01/08/2025 6:34 PM CDT) Anatomical Region Laterality Modality Body, Chest N/A Computed Radiogr aphy 01/08/2025 6:44 PM CDT Impressions 01/08/2025 6:44 PM CDT No pneumothorax. Electronically signed by: Zenon Wing M.D. Narrative 01/08/2025 6:44 PM CDT EXAMINATION: XR CHEST 1 VIEW HISTORY: The patient is a 74-year-old male who has had placement of a left-sided transvenous pacemaker. Comparison made with the study done earlier in the day. TECHNIQUE: AP portable view of the chest. FINDINGS: Left-sided transvenous pacemaker noted with the electrode tip in good position. Cardiomegaly with aortic atherosclerosis. No failure. No active infiltrate. Procedure Note Zenon Wing MD - 01/08/2025 EXAMINATION: XR CHEST 1 VIEW HISTORY: The patient is a 74-year-old male who has had placement of a left-sided transvenous pacemaker. Comparison made with the study done earlier in the day. TECHNIQUE: AP portable view of the chest. FINDINGS: Left-sided transvenous pacemaker noted with the electrode tip in good position. Cardiomegaly with aortic atherosclerosis. No failure. No active infiltrate. IMPRESSION: No pneumothorax. Electronically signed by: Zenon Wing M.D. Theresa Lamb MD IMG XR PROCEDURES Final Resu lt * FL Fluoroscopy < 1 Hour (01/08/2025 5:18 PM CDT) Narrative [facility]_PACS_[facility] - 01/08/2025 5:20 PM CDT The images from this study are not interpreted by Radiology. Please refer to the physician's procedure / OR operative note. Theresa Lamb MD IMG FLUOROSCOPY PROCEDURES F inal Result Performing Organization Address [facility] Co de Phone Number RAD_PACS_ * (ABNORMAL) POCT glucose (01/08/2025 11:56 AM CDT) Glucose, POC 222(H) 70 - 199 mg/dL POC Performer [id number] JEFF BRODERICK Blood 01/08/2025 11:5 6 AM CDT 01/08/2025 11:56 AM CDT Theresa Lamb MD LAB POCT ORDERABLES - DEVICE Final Result Performing Organization Address [facility] Co de Phone Number [facility] [address] [place] [address] * Infection Prevention MRSA Only (Staphylococcus aureus) PCR Nasal (01/08/2025 8:06 AM CDT) PCR Scrn, Methicillin resistant Staphylococcus aureus (MRSA) Not Detected Not Detected CH Comment: Interpretive Data Testing performed using Nucleic Acid Amplification with the [facility] Xpert MRSA NxG Assay. This assay detects target DNA from mecA, mecC and the SCCmec insertion site of Staphylococcus aureus using Real-Time PCR and has been cleared by the FDA. Performance characteristics have been verified by the [facility]. Current Interpretive Data was last revised on 2023 Nasal 01/08/2025 8:06 AM CDT 01/08/2025 8:11 AM CDT us Theresa Lamb MD LAB MICROBIOLOGY - GENERAL O RDERABLES Final Result Performing Organization Address [facility] Co de Phone Number JEFF BRODERICK [address] [place] [address] * (ABNORMAL) POCT glucose (01/08/2025 8:03 AM CDT) Glucose, POC 237(H) 70 - 199 mg/dL POC Performer [id number] JEFF Blood 01/08/2025 8:03 AM CDT 01/08/2025 8:03 AM CDT Génesis Delatorre MD LAB POCT ORDERABLES - DEVICE Final Result Performing Organization Address [facility] Co de Phone Number JEFF BRODERICK [address] [address] [place] [address] * Critical Care (01/08/2025 7:02 AM CDT) Narrative Sindhu Whittington MD - 01/08/2025 7:02 AM CDT Sindhu Whittington MD 01/08/2025 6:26 PM Critical Care Performed by: Lesly Rossi NP Authorized by: Lesly Rossi NP CRITICAL CARE: Team: JULI Shift: AM Level of Billing: Critical Care My time spent with this patient was 75 minutes: Critical Provider Statement: I have seen and examined the patient on this day of service. I have reviewed and confirmed the history, physical exam, laboratory and radiologic data as documented in the signed ICU note. I have reviewed and discussed my treatment plan with the ICU team and other medical/customer sales consultant staff, making frequent assessments and decisions regarding this patient's complex medical care. Critical Care time was exclusive of time spent performing separately billed procedures, treating other patients, and teaching. This time was in addition to and separate from critical care provided by other practitioners in my group on this day of service. Critical Care was necessary to treat or prevent imminent or life-threatening deterioration of the following conditions: I spent time reviewing and interpreting data from bedside monitors, laboratory results, and imaging, I spent time discussing the management of this critically ill patient with consultants and the medical staff and I spent time documenting in the medical record Lesly Rossi NP IN CLINIC/BEDSIDE ORDERABLES Final Result * XR Chest 1 View (01/08/2025 5:46 AM CDT) Anatomical Region Laterality Modality Body, Chest N/A Computed Radiogr aphy 01/08/2025 8:21 AM CDT Impressions 01/08/2025 8:21 AM CDT Cardiomegaly with no failure. Electronically signed by: Zenon Wing M.D. Narrative 01/08/2025 8:21 AM CDT EXAMINATION: XR CHEST 1 VIEW HISTORY: The patient is a 74-year-old male who has had cardiac tamponade. Comparison made with the previous study dated 01/07/2025. TECHNIQUE: AP portable view of the chest. FINDINGS: Cardiomegaly with aortic atherosclerosis. No failure. No active infiltrate. Right-sided single lead pacemaker noted in situ. Procedure Note Zenon Wing MD - 01/08/2025 EXAMINATION: XR CHEST 1 VIEW HISTORY: The patient is a 74-year-old male who has had cardiac tamponade. Comparison made with the previous study dated 01/07/2025. TECHNIQUE: AP portable view of the chest. FINDINGS: Cardiomegaly with aortic atherosclerosis. No failure. No active infiltrate. Right-sided single lead pacemaker noted in situ. IMPRESSION: Cardiomegaly with no failure. Electronically signed by: Zenon Wing M.D. Theresa Lamb MD IMG XR PROCEDURES Final Resu lt * POCT glucose (01/08/2025 5:06 AM CDT) Glucose, POC 163 70 - 199 mg/dL POC Performer [id number] CERNER CH Blood 01/08/2025 5:06 AM CDT 01/08/2025 5:06 AM CDT Theresa Lamb MD LAB POCT ORDERABLES - DEVICE Final Result Performing Organization Address [facility] Co de Phone Number JEFF [address] [place] [address] * eGFR (01/08/2025 12:33 AM CDT) eGFR >90 >=60 mL/min/1. 73 m2 Comment: Interpretive Data [...] interpretive data was last reviewed 2021. Blood 01/08/2025 12:3 3 AM CDT 01/08/2025 12:33 AM CDT us 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 LAB BLOOD ORDERABLES Fin al Result Performing Organization Address City/[facility]/ZIP Co de Phone Number JEFF [address] [address] [place] [address] * Magnesium (01/08/2025 12:33 AM CDT) Magnesium 1.9 1.4 - 2.5 mg/dL Blood 01/08/2025 12:3 3 AM CDT 01/08/2025 12:33 AM CDT us Theresa Lamb MD LAB BLOOD ORDERABLES Final R esult Performing Organization Address City/[facility]/ZIP Co de Phone Number JEFF BRODERICK [address] [place] [address] * (ABNORMAL) Renal function panel (01/08/2025 12:33 AM CDT) Sodium 136 135 - 145 mmol/L Potassium, pl 4.0 3.3 - 4.9 mmol/L CERNER Chloride 103 97 - 110 mmol/L CERNER CH CO2 24 22 - 32 mmol/L CERNER CH Anion gap 9 2 - 15 mmol/L CERNER CH BUN 14 6 - 25 mg/dL [facility] Creatinine 0.71(L) 0.80 - 1.30 mg/dL CERNER Glucose 212(H) 70 - 199 mg/dL [facility] Comment: Interpretive Data Fasting glucose >/= 126 mg/dl is diagnostic for diabetes. Fasting is defined as no caloric intake for at least 8 hours. Fasting glucose between 100 mg/dl to 125 mg/dl is diagnostic of prediabetes. In a patient with classic symptoms of hyperglycemia or hyperglycemic crisis, a random glucose >/= 200 mg/dl is diagnostic for diabetes. In the absence of unequivocal hyperglycemia, results should be confirmed by repeat testing. The classification and Diagnosis of Diabetes Diabetes Care 2021; 46: S19-S40. Current interpretive data was last revised 2022. Calcium 8.6 8.5 - 10.3 mg/dL CERNER Phosphorus, pl 2.5 2.3 - 4.5 mg/dL CERNER Albumin 3.4(L) 3.5 - 5.0 g/dL CERNER Blood 01/08/2025 12:3 3 AM CDT 01/08/2025 12:33 AM CDT us Theresa Lamb MD LAB BLOOD ORDERABLES Final R esult Performing Organization Address City/[facility]/ZIP Co de Phone Number JEFF BRODERICK [address] [place] [address] * (ABNORMAL) POCT glucose (01/08/2025 12:26 AM CDT) Glucose, POC 232(H) 70 - 199 mg/dL POC Performer [id number] JEFF Blood 01/08/2025 12:2 6 AM CDT 01/08/2025 12:26 AM CDT Génesis Delatorre MD LAB POCT ORDERABLES - DEVICE Final Result Performing Organization Address [facility] de Phone Number [facility] [address] [place] [address] * (ABNORMAL) Troponin T high-sensitivity (01/08/2025 12:20 AM CDT) Trop T hs 72(H) <=22 ng/L Comment: Interpretive Data For further hscTnT resources including the diagnostic algorithm and an aid in interpretation, copy and paste this link: https://nrl.testcatalog.org/show/hsTrop Current Interpretive Data last revised 2020. Blood 01/08/2025 12:2 0 AM CDT 01/08/2025 12:34 AM CDT 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 LAB BLOOD ORDERABLES Fin al Result Performing Organization Address [facility] de Phone Number [facility] [address] [address] * Calcium, ionized, whole blood (01/08/2025 12:20 AM CDT) Ca, ionized, bld 4.73 4.50 - 5.10 mg/dL Blood 01/08/2025 12:2 0 AM CDT 01/08/2025 12:35 AM CDT Theresa Lamb MD LAB BLOOD ORDERABLES Final R esult Performing Organization Address [facility]/ZIP Co de Phone Number JEFF BRODERICK [address] [place] [address] * (ABNORMAL) CBC without differential (01/08/2025 12:20 AM CDT) WBC 10.30(H) 3.80 - 9.90 K/cumm Hgb 9.8(L) 13.0 - 17.5 g/dL [facility] Hct 31.1(L) 38.9 - 50.3 % [facility] Plt 341 150 - 400 K/cumm [facility] MPV 8.6(L) 9.1 - 12.3 fL [facility] RBC 3.66(L) 4.30 - 5.80 M/cumm [facility] MCV 85.0 81.3 - 96.4 fL [facility] MCH 26.8(L) 27.1 - 33.3 pg [facility] MCHC 31.5(L) 32.3 - 35.7 g/dL [facility] RDW CV 13.3 11.1 - 14.9 % [facility] RDW SD 41.7 35.7 - 48.1 fL [facility] NRBC abs 0.00 0.00 - 0.01 K/cumm [facility] Blood 01/08/2025 12:2 0 AM CDT 01/08/2025 12:39 AM CDT us Thersea Lamb MD LAB BLOOD ORDERABLES Final R esult [address] [place] [address] * (ABNORMAL) POCT glucose (01/07/2025 9:55 PM CDT) Glucose, POC 249(H) 70 - 199 mg/dL POC Performer [id number] [facility] Blood 01/07/2025 9:55 PM CDT 01/07/2025 9:55 PM CDT Theresa Lamb MD LAB POCT ORDERABLES - DEVICE Final Result Performing Organization Address [facility] Co de Phone Number SAMANTHAROGER [address] [place] [address] * Critical Care (01/07/2025 8:43 PM CDT) Narrative Kojo Trevino MD - 01/07/2025 8:43 PM CDT Kojo Trevino MD 01/12/2025 4:37 PM Critical Care Performed by: Heri Tovar NP Authorized by: Heri Tovar NP CRITICAL CARE: Team: JULI Shift: PM Level of Billing: Subsequent Hospital Visit Level 3 My time spent with this patient was 35 minutes: Critical Provider Statement: I have seen and examined the patient on this day of service. I have reviewed and confirmed the history, physical exam, laboratory, and radiographic data as documented in the ICU note. I have reviewed and discussed my treatment plan with the patient's team and other medical/customer sales consultant staff. This time was in addition to and separate from care provided by other practitioners on this day of service. us Heri Tovar BACKEND DEVELOPER IN CLINIC/BEDSIDE ORDER EBATRIZ Final Result * (ABNORMAL) POCT glucose (01/07/2025 7:54 PM CDT) Pathologist [facility] Glucose, POC 266(H) 70 - 199 mg/dL POC Performer [id number] [facility] Blood 01/07/2025 7:54 PM CDT 01/07/2025 7:54 PM CDT us Theresa Lamb MD LAB POCT ORDERABLES - DEVICE Final Result Performing Organization Address [facility] Co de Phone Number JEFF BRODERICK [address] [place] [address] * (ABNORMAL) Troponin T high-sensitivity (01/07/2025 6:24 PM CDT) Trop T hs 81(H) <=22 ng/L Comment: Interpretive Data For further hscTnT resources including the diagnostic algorithm and an aid in interpretation, copy and paste this link: https://nrl.testcatalog.org/show/hsTrop Current Interpretive Data last revised 2020. Blood 01/07/2025 6:24 PM CDT 01/07/2025 6:32 PM CDT Fran Mcgrath NP LAB BLOOD ORDERABLES Fin al Result Performing Organization Address [facility] de Phone Number JEFF [address] [address] [facility] [place] [address] * Type and screen (01/07/2025 6:24 PM CDT) Antonio, indirect Negative ABO Rh A Negative CERNER CH Blood 01/07/2025 6:24 PM CDT 01/07/2025 6:42 PM CDT Narrative [facility] - 01/07/2025 7:44 PM CDT Has the patient had Daratumumab or Isatuximab in the past 6 months?->Unknown Fran Mcgrath NP LAB BLOOD BANK TEST ORDE RABLES Final Result Performing Organization Address [facility] de Phone Number JEFF [address] [address] [facility] [place] [address] * Urinalysis reflex to microscopic (01/07/2025 5:32 PM CDT) Color, ur Yellow Yellow Clarity, ur Clear Clear CERNER CH Specific gravity, ur 1.026 1.003 - 1.030 CERNER CH pH, urine 6.0 CERNER CH Comment: Interpretive Data U rine pH is affected by diet, medications, systemic acid-base disturbances, and renal tubular function. pH may affect urinary stone formation. For example, urine pH below 6.0 may help reduce the tendency for calcium phosphate stones and pH greater than 6.0 may reduce the tendency for uric acid stone formation. Source: [facility] [place] Current Interpretive Data was last revised on 2017 Protein, ur ql Trace Negative CERNER CH Glucose, ur ql Negative Negative CERNER CH Ketones, ur Trace Negative CERNER CH Bilirubin, ur Negative Negative CERNER CH Blood, ur Negative Negative CERNER CH Urobilinogen, ur <2.0 <2.0 mg/dL CERNER CH Nitrite, ur Negative Negative CERNER CH Leukocyte esterase, ur Negative Negative CERNER CH UA reflex comment Reflex conditions for microscopic UA not met. [facility] Urine 01/07/2025 5:32 PM CDT 01/07/2025 5:42 PM CDT Fran Mcgrath NP LAB URINE ORDERABLES Fin al Result Performing Organization Address [facility] Co de Phone Number [facility] [address] [employer] [place], [place] [id number] * Strep pneumoniae antigen, urine Urine (01/07/2025 5:32 PM CDT) S. pneumoniae Ag Negative Negative Comment: A negative result is a presumptive negative for pneumococcal pneumonia, suggesting no current or recent pneumococcal infection. Infection due to Streptococcus pneumoniae cannot be ruled out since the antigen present in the specimen may be below the detection limit of the test. Pneumococcal pneumonia is best diagnosed by a sputum culture. CAUTIONS: A negative result does not exclude Streptococcus pneumoniae infection. A diagnosis of Streptococcus pneumoniae infection must take into consideration all test results, culture results, and the clinical presentation of the patient. Interpretive Data A positive result is indicative of pneumococcal pneumonia in patients with severe CAP. Cross-reactivity with closely related Streptococcus bacteria may occur. A negative result suggests no current or recent pneumococcal infection but cannot rule out infection with S. pneumoniae. The results of this testing should be used in conjunction with clinical findings and other diagnostic testing, including microbiologic culture. Current Interpretive Data was last revised on 2022 Urine 01/07/2025 5:32 PM CDT 01/07/2025 8:59 PM CDT Fran Mcgrath NP LAB MICROBIOLOGY - GENER AL ORDERABLES Final Result Performing Organization Address [facility] Co de Phone Number [facility] [address] [place] [address] * Legionella antigen Urine (01/07/2025 5:32 PM CDT) [facility] Legionella Ag Negative Negative Comment: Interpretive Data This test detects only Legionella pneumophila serogroup 1 antigen. Current interpretive data was last revised on 2019. Urine 01/07/2025 5:32 PM CDT 01/07/2025 5:42 PM CDT Fran Mcgrath NP LAB MICROBIOLOGY - GENER AL ORDERABLES Final Result [facility] [address] [place] [address] * (ABNORMAL) Respiratory pathogen panel Nasopharyngeal (01/07/2025 5:30 PM CDT) [facility] Influenza A RNA Not Detected Not Detected Influenza B RNA Not Detected Not Detected [facility] RSV RNA Not Detected Not Detected [facility] COVID-19 RNA Not Detected Not Detected [facility] Coronavirus 229E RNA Not Detected Not Detected [facility] Coronavirus HKU1 RNA Not Detected Not Detected [facility] Coronavirus NL63 RNA Not Detected Not Detected [facility] Coronavirus OC43 RNA Not Detected Not Detected [facility] Adenovirus DNA Not Detected Not Detected [facility] Metapneumovirus RNA Detected(A) Not Detected [facility] Rhinovirus/Enterov irus RNA Not Detected Not Detected [facility] Parainfluenza 1 RNA Not Detected Not Detected [facility] Parainfluenza 2 RNA Not Detected Not Detected [facility] Parainfluenza 3 RNA Not Detected Not Detected [facility] Parainfluenza 4 RNA Not Detected Not Detected [facility] B. pertussis DNA Not Detected Not Detected [facility] B. parapertussis DNA Not Detected Not Detected [facility] C. pneumoniae DNA Not Detected Not Detected [facility] M. pneumoniae DNA Not Detected Not Detected [facility] Comment: Interpretive Data The iScreen Vision FilmArray Respiratory Panel (RP2.1) assay is a multiplexed real-time PCR based nucleic acid test capable of simultaneous qualitative detection and identification of multiple respiratory viral and bacterial nucleic acids, including SARS Coronavirus 2 (the causative agent of COVID-19). The following bacteria, viruses and virus subtypes can be identified using the FilmArray RP2.1 assay: Bordetella pertussis, Bordetella parapertussis, Chlamydia pneumoniae, Mycoplasma pneumoniae, Adenovirus, SARS Coronavirus 2, seasonal coronaviruses (Coronavirus HKU1, Coronavirus NL63, Coronavirus 229E, and Coronavirus OC43), Influenza A, Influenza A subtype H1, Influenza A subtype H3, Influenza A subtype 2009 H1, Influenza B, Metapneumovirus, Parainfluenza 1, Parainfluenza 2, Parainfluenza 3, Parainfluenza 4, RSV, Rhinovirus/Enterovirus. Due to the genetic similarity between human Rhinovirus and Enterovirus, the FilmArray RP2.1 assay cannot reliably differentiate them. Coronavirus OC43 may cross-react with some isolates of Coronavirus HKU1. A dual positive result may be due to cross-reactivity or may indicate a co- infection. The detection and identification of specific viral and bacterial nucleic acids from individuals exhibiting signs and symptoms of a respiratory infection aids in the diagnosis of respiratory infection if used in conjunction with other clinical and epidemiological information. The results of this test should not be used as the sole basis for diagnosis, treatment, or other management decisions. Negative results in the setting of a respiratory illness may be due to infection with pathogens that are not detected by this test. Positive results do not rule out infection/co-infection with other organisms. The agent(s) detected by the FilmArray RP2.1 may not be the definite cause of disease. Additional testing (lab, imaging, etc.) may be necessary when evaluating a patient with possible respiratory tract infection. The FilmArray RP2.1 assay has FDA clearance for testing of BACKEND DEVELOPER swabs. The performance characteristics of this assay have been determined by [facility]. Current interpretive data was last revised on 2021. Nasopharyngeal 01/07/2025 5: 30 PM CDT 01/07/2025 6:35 PM CDT Shanice Pacheco 01/07/2025 8:39 PM CDT Is the Patient experiencing symptoms consistent with COVID?->Unknown Surveillance testing for transplant patient?->No 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 LAB MICROBIOLOGY - GENER AL ORDERABLES Final Result JEFF BRODERICK [address] [place] [address] * Critical Care (01/07/2025 4:59 PM CDT) Narrative Sindhu Whittington MD - 01/07/2025 4:59 PM CDT Sindhu Whittington MD 01/08/2025 6:17 PM Critical Care Performed by: Fran Mcgrath NP Authorized by: Fran Mcgrath NP CRITICAL CARE: Team: JULI Shift: AM Level of Billing: Critical Care My time spent with this patient was 140 minutes: Critical Provider Statement: I have seen and examined the patient on this day of service. I have reviewed and confirmed the history, physical exam, laboratory and radiologic data as documented in the signed ICU note. I have reviewed and discussed my treatment plan with the ICU team and other medical/customer sales consultant staff, making frequent assessments and decisions regarding this patient's complex medical care. Critical Care time was exclusive of time spent performing separately billed procedures, treating other patients, and teaching. This time was in addition to and separate from critical care provided by other practitioners in my group on this day of service. Critical Care was necessary to treat or prevent imminent or life-threatening deterioration of the following conditions: I spent time reviewing and interpreting data from bedside monitors, laboratory results, and imaging, I spent time discussing the management of this critically ill patient with consultants and the medical staff and I spent time documenting in the medical record us 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 IN CLINIC/BEDSIDE ORDERA BLES Final Result * (ABNORMAL) Troponin T high-sensitivity (01/07/2025 4:45 PM CDT) Trop T hs 79(H) <=22 ng/L Comment: Interpretive Data For further hscTnT resources including the diagnostic algorithm and an aid in interpretation, copy and paste this link: https://nrl.testcatalog.org/show/hsTrop Current Interpretive Data last revised 2020. Blood 01/07/2025 4:45 PM CDT 01/07/2025 5:10 PM CDT us 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 LAB BLOOD ORDERABLES Fin al Result Performing Organization Address City/[facility]/ZIP Co de Phone Number JEFF [address] [address] [facility] [place], [place] [id number] * Sepsis Lactate w/ Reflex (01/07/2025 4:45 PM CDT) Sepsis Lactate 1.9 0.7 - 2.0 mmol/L Blood 01/07/2025 4:45 PM CDT 01/07/2025 5:10 PM CDT Sindhu Whittington MD LAB BLOOD ORDERABLES Iris l Result Performing Organization Address [facility] Co de Phone Number JEFF [address] [address] [facility] [place] [address] * Lactate (01/07/2025 4:45 PM CDT) Lactate 1.9 0.7 - 2.0 mmol/L Blood 01/07/2025 4:45 PM CDT 01/07/2025 5:10 PM CDT 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 LAB BLOOD ORDERABLES Fin al Result Performing Organization Address [facility] Co de Phone Number JEFF [address] [address] [facility] [place], [place] [id number] * Calcium, ionized, whole blood (01/07/2025 4:45 PM CDT) Ca, ionized, bld 4.62 4.50 - 5.10 mg/dL Blood 01/07/2025 4:45 PM CDT 01/07/2025 5:10 PM CDT 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 LAB BLOOD ORDERABLES Fin al Result Performing Organization Address [facility] Co de Phone Number [facility] [address] [address] [facility] [place] [address] * eGFR (01/07/2025 4:45 PM CDT) eGFR >90 >=60 mL/min/1. 73 m2 Comment: Interpretive Data [...] interpretive data was last reviewed 2021. Blood 01/07/2025 4:45 PM CDT 01/07/2025 5:10 PM CDT us Fran Mcgrath NP LAB BLOOD ORDERABLES Fin al Result JEFF [address] [place] [address] * (ABNORMAL) Pro B-type natriuretic peptide (01/07/2025 4:45 PM CDT) NT-proBNP 670(H) <=300 pg/mL Comment: Interpretive Comments: A. Dyspnea in Acute Care Setting All Ages: < 300 pg/ml, acute heart failure unlikely. < 50 yrs: 300 - 450 pg/ml, further investigation warranted. > 450 pg/ml, acute heart failure likely. 50 - 74 yrs: 300 - 900 pg/ml, further investigation warranted. > 900 pg/ml, acute heart failure likely . > or = 75 yrs: 450 - 1800 pg/ml, further investigation warranted. > 1800 pg/ml, acute heart failure likely. B. Non-acute Setting < 75 yrs < 125 pg/ml, rules out heart failure. > or = 125 pg/ml, further investigation warranted. > or = 75 yrs < 450 pg/ml, rules out heart failure. > or = 450 pg/ml, further investigation warranted. - Knowledge of each individual patient's NT-proBNP range may be more useful than using similar cut-points for every patient. Please note that marked elevations in NT-proBNP levels may be observed in state other than Left Ventricular Congestive Failure, including: acute coronary syndromes, right heart strain/failure (including pulmonary embolism and cor pulmonale), critical illness, renal failure, as well as advanced age. - References: 1. Latanya MEJIA et.al. Eur Heart J. 2006:27:330-337. 2. Vandana RW, Larry AM. J. AM Casimiro Cardiol: Cardiovasc Imag. 2009;2: 216- 225. Interpretive Data Last Revised Date: 2018. Blood 01/07/2025 4:45 PM CDT 01/07/2025 5:10 PM CDT 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 LAB BLOOD ORDERABLES Fin al Result Performing Organization Address [facility] [place] Number [place] [address] [place] [address] * Thyroid Function [place] (01/07/2025 4:45 PM CDT) TSH 0.75 0.30 - 4.20 mcIUnit/mL Blood 01/07/2025 4:45 PM CDT 01/07/2025 5:10 PM CDT 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 LAB BLOOD ORDERABLES Fin al Result Performing Organization Address [facility] [place] [address] [address] [place], [place] [id number] * aPTT (01/07/2025 4:45 PM CDT) aPTT 32 28 - 38 sec Comment: Interpretive Data Heparin therapeutic range: 66.0 - 100.0 seconds. Range based on correlation with therapeutic heparin activity range of 0.3 - 0.7 Units/mL. Current interpretive data was last revised on 2023. Blood 01/07/2025 4:45 PM CDT 01/07/2025 5:10 PM CDT 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 LAB BLOOD ORDERABLES Fin al Result JEFF BRODERICK [address] [place] [address] * (ABNORMAL) Protime-INR (01/07/2025 4:45 PM CDT) PT 13.6(H) 9.7 - 13.0 sec INR 1.25(H) 0.90 - 1.20 JEFF BRODERICK Comment: Interpretive data Oral anticoagulant therapeutic ranges: Venous thromboembolism prophylaxis or treatment: 2.0-3.0 CARDIOLOGY Standard range: 2.0-3.0 High-intensity range: 2.5-3.5 Refer to indication-specific guidelines for appropriate target ranges for prosthetic heart valve replacement. Current interpretive data was last revised on 2019. Blood 01/07/2025 4:45 PM CDT 01/07/2025 5:10 PM CDT Fran Mcgrath NP LAB BLOOD ORDERABLES Fin al Result Performing Organization Address City/[facility]/ZIP Co de Phone Number JEFF BRODERICK [address] [address] [place] [address] * Fibrinogen (01/07/2025 4:45 PM CDT) Fibrinogen 359 170 - 400 mg/dL Blood 01/07/2025 4:45 PM CDT 01/07/2025 5:10 PM CDT 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 LAB BLOOD ORDERABLES Fin al Result JEFF BRODERICK [address] [address] [place] [address] * (ABNORMAL) CBC without differential (01/07/2025 4:45 PM CDT) Pathologist [facility] WBC 9.43 3.80 - 9.90 K/cumm Hgb 9.9(L) 13.0 - 17.5 g/dL [facility] Hct 31.6(L) 38.9 - 50.3 % [facility] Plt 306 150 - 400 K/cumm [facility] MPV 8.7(L) 9.1 - 12.3 fL [facility] RBC 3.72(L) 4.30 - 5.80 M/cumm [facility] MCV 84.9 81.3 - 96.4 fL [facility] MCH 26.6(L) 27.1 - 33.3 pg [facility] MCHC 31.3(L) 32.3 - 35.7 g/dL [facility] RDW CV 13.4 11.1 - 14.9 % [facility] RDW SD 41.4 35.7 - 48.1 fL [facility] NRBC abs 0.00 0.00 - 0.01 K/cumm [facility] Blood 01/07/2025 4:45 PM CDT 01/07/2025 5:12 PM CDT 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 LAB BLOOD ORDERABLES Fin al Result Performing Organization Address [facility] de Phone Number [facility] [address] [address] [facility] [place] [address] * Uric acid (01/07/2025 4:45 PM CDT) [facility] Uric acid 4.0 3.0 - 8.0 mg/dL Blood 01/07/2025 4:45 PM CDT 01/07/2025 5:10 PM CDT 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 LAB BLOOD ORDERABLES Fin al Result Performing Organization Address [facility] de Phone Number [facility] [address] [place] [address] * Phosphorus (01/07/2025 4:45 PM CDT) Phosphorus, pl 2.7 2.3 - 4.5 mg/dL Blood 01/07/2025 4:45 PM CDT 01/07/2025 5:10 PM CDT 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 LAB BLOOD ORDERABLES Fin al Result Performing Organization Address [facility] de Phone Number JEFF BRODERICK [address] [place] [address] * Magnesium (01/07/2025 4:45 PM CDT) Magnesium 1.7 1.4 - 2.5 mg/dL Blood 01/07/2025 4:45 PM CDT 01/07/2025 5:10 PM CDT 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 LAB BLOOD ORDERABLES Fin al Result Performing Organization Address [facility] de Phone Number SAMANTHAROEGR BRODERICK [address] [place] [address] * Blood gas, venous (01/07/2025 4:45 PM CDT) Pathologist [facility] pH, Venous 7.41 7.32 - 7.43 PCO2, Venous 41 40 - 50 mmHg [facility] PO2, Venous 32 mmHg [facility] Comment: Interpretive Data No Reference Range Established Current Interpretive Data was last revised on 2017. HCO3 Venous, Calculated 25 20 - 30 mmol/L [facility] BE, venous 1 mmol/L [facility] Comment: Interpretive Data No Reference Range Established Current Interpretive Data was last revised on 2017. Blood Venous blood specimen / Unknown 01/07/2025 4:45 PM CDT 01/07/2025 5:10 PM CDT 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 LAB BLOOD ORDERABLES Fin al Result Performing Organization Address [facility] Co de Phone Number JEFF BRODERICK [address] [address] [facility] [place] [address] * Creatine kinase (CK), total (01/07/2025 4:45 PM CDT) CK 52 40 - 300 Units/L Blood 01/07/2025 4:45 PM CDT 01/07/2025 5:10 PM CDT 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 LAB BLOOD ORDERABLES Fin al Result JEFF [address] [place] [address] * Creatine kinase (CK), total (01/07/2025 4:45 PM CDT) Pathologist [facility] CK 51 40 - 300 Units/L Blood 01/07/2025 4:45 PM CDT 01/07/2025 5:10 PM CDT 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 LAB BLOOD ORDERABLES Fin al Result Performing Organization Address [facility] Co de Phone Number JEFF BRODERICK [address] [place] [address] * Bilirubin, direct (01/07/2025 4:45 PM CDT) [facility] Bilirubin, direct 0.1 0.1 - 0.3 mg/dL Blood 01/07/2025 4:45 PM CDT 01/07/2025 5:10 PM CDT 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 LAB BLOOD ORDERABLES Fin al Result Performing Organization Address [facility]/ZIP Co de Phone Number SAMANTHAROGER [address] [place] [address] * (ABNORMAL) Comprehensive metabolic panel (01/07/2025 4:45 PM CDT) Pathologist [facility] Sodium 138 135 - 145 mmol/L Potassium, pl 4.3 3.3 - 4.9 mmol/L [facility] Chloride 104 97 - 110 mmol/L [facility] CO2 25 22 - 32 mmol/L [facility] Anion gap 9 2 - 15 mmol/L [facility] BUN 13 6 - 25 mg/dL [facility] Creatinine 0.68(L) 0.80 - 1.30 mg/dL [facility] Glucose 193 70 - 199 mg/dL [facility] Comment: Interpretive Data Fasting glucose >/= 126 mg/dl is diagnostic for diabetes. Fasting is defined as no caloric intake for at least 8 hours. Fasting glucose between 100 mg/dl to 125 mg/dl is diagnostic of prediabetes. In a patient with classic symptoms of hyperglycemia or hyperglycemic crisis, a random glucose >/= 200 mg/dl is diagnostic for diabetes. In the absence of unequivocal hyperglycemia, results should be confirmed by repeat testing. The classification and Diagnosis of Diabetes Diabetes Care 202; 46: S19-S40. Current interpretive data was last revised 2022. Calcium 8.6 8.5 - 10.3 mg/dL [facility] Bilirubin, total 0.3 0.1 - 1.2 mg/dL [facility] Protein, pl 6.4(L) 6.5 - 8.5 g/dL [facility] Albumin 3.5 3.5 - 5.0 g/dL [facility] Alk phos 144(H) 40 - 130 Units/L [facility] ALT 19 7 - 55 Units/L [facility] AST 26 10 - 50 Units/L [facility] Blood 01/07/2025 4:45 PM CDT 01/07/2025 5:10 PM CDT us Fran Mcgrath NP LAB BLOOD ORDERABLES Fin al Result [facility] [address] [address] Department [place] [address] * [facility] ARTL CATHJ/CANNULJ MNTR/TRANSFUSION SPX PRQ (01/07/2025 3:30 PM CDT) Narrative Fran Mcgrath NP - 01/07/2025 3:30 PM CDT Fran Mcgrath NP 01/26/2025 5:55 PM Arterial Line Insertion Date/Time: 01/07/2025 3:30 PM Performed by: Fran Mcgrath NP Authorized by: Fran Mcgrath NP [place] Protocol: RN Notified of Procedure: yes Informed consent: Risks, benefits, alternatives discussed Patient's stated name/ matches armband: Yes Allergies confirmed: yes Consent form signed, dated, timed; matches correct patient, intended procedure and site: Yes Imaging: Pertinent imaging reviewed, correctly oriented and match to patient identifiers Supplies, devices and special equipment are available: yes Immediately prior to the procedure a time out was called: a verbal verification by the procedure participants confirmed correct patient identity, correct site/side marked and visible (if applicable); agreement on procedure to be done; and correct patient positioning Indications: multiple ABGs and hemodynamic monitoring Location: Right radial Anesthesia: Local infiltration Local anesthetic: Lidocaine 1% Patient skin preparation: chlorhexidine Ultrasound guidance: Sterile probe cover used and real-time needle guidance Patient preparation: Cap, gloves, handwashing, mask, towels and sterile probe cover Shen's test normal?: Yes Single percutaneous needle puncture: Yes Seldinger technique used: Yes Number of attempts: 2 Placement confirmed with arterial waveform: No Post-procedure: Dressing applied Post-procedure CMS: Normal Patient tolerance: Patient tolerated the procedure well with no immediate complications Complications: vasospasm I personally performed the above procedure which is separate from my critical care time Unable to place [place] due to Vasospasm Cardiogenic shock, bradycardia Post Procedure Debrief: All guidewires, needles, sponges or other items are accounted for: yes Fran Mcgrath NP IV THERAPY ORDERABLES Ed ited Result - Final * CT Chest W Contrast (01/07/2025 2:45 PM CDT) Anatomical Region Laterality Modality Body N/A Computed Tomogra phy 01/07/2025 3:17 PM CDT Impressions 01/07/2025 3:17 PM CDT 1. Small complex pericardial effusion may represent hemorrhagic effusion. 2. Left small pleural effusion. 3. Mosaic attenuation in the lingula and bilateral lower lobes. Favor asymmetric pulmonary edema. Infectious etiology not entirely excludable. 4. Poststernotomy changes with fat stranding in the anterior mediastinum possibly representing expected postprocedural changes versus mediastinitis. No drainable fluid collection. 5. Additional chronic or incidental findings as above. Electronically signed by: Corey Limon II, D.O. Narrative 01/07/2025 3:17 PM CDT Indication: Pericardial effusion. Comparison: None. Technique: Contrast enhanced axial CT imaging of the chest with coronal and sagittal reconstructions. Approximately 68 mL of Optiray 350 was administered for this examination. Findings: Thoracic inlet structures are unremarkable. There is a small complex pericardial effusion, which may represent a hemorrhagic effusion given density of 45 Hounsfield units. Poststernotomy changes are demonstrated. Mild fat stranding within the anterior mediastinum may represent mediastinitis or sequela from recent operative intervention. Aortic and coronary artery atherosclerosis. Cholecystectomy. Upper abdominal structures are unremarkable as seen. There is a small left pleural effusion. Patchy groundglass attenuation in the lingula and bilateral lower lobes suggestive of pneumonia versus asymmetric pulmonary edema. Favor asymmetric pulmonary edema. Procedure Note Corey Limon II, DO - 01/07/2025 Indication: Pericardial effusion. Comparison: None. Technique: Contrast enhanced axial CT imaging of the chest with coronal and sagittal reconstructions. Approximately 68 mL of Optiray 350 was administered for this examination. Findings: Thoracic inlet structures are unremarkable. There is a small complex pericardial effusion, which may represent a hemorrhagic effusion given density of 45 Hounsfield units. Poststernotomy changes are demonstrated. Mild fat stranding within the anterior mediastinum may represent mediastinitis or sequela from recent operative intervention. Aortic and coronary artery atherosclerosis. Cholecystectomy. Upper abdominal structures are unremarkable as seen. There is a small left pleural effusion. Patchy groundglass attenuation in the lingula and bilateral lower lobes suggestive of pneumonia versus asymmetric pulmonary edema. Favor asymmetric pulmonary edema. IMPRESSION: 1. Small complex pericardial effusion may represent hemorrhagic effusion. 2. Left small pleural effusion. 3. Mosaic attenuation in the lingula and bilateral lower lobes. Favor asymmetric pulmonary edema. Infectious etiology not entirely excludable. 4. Poststernotomy changes with fat stranding in the anterior mediastinum possibly representing expected postprocedural changes versus mediastinitis. No drainable fluid collection. 5. Additional chronic or incidental findings as above. Electronically signed by: Corey Limon II, D.O. Sindhu Whittington MD IMG CT PROCEDURES Final R esult * TRANSTHORACIC ECHO (TTE) COMPLETE W DOPPLER/CF WO CONTRAST (01/07/2025 2:30 PM CDT) Estimated EF 60-65 % CONS SCIMAGE EF Mod BP 57 % CONS SCIMAGE Anatomical Region Laterality Modality Ultrasound 01/07/2025 1:26 PM CDT Narrative 01/07/2025 3:24 [place] [address] Echocardiogram Report Patient Name: SHAWN SHULTZ BRI : 1950 Study Date: 01/07/2025 1:26:17 PM Gender: M Tech: Location: [id number] Ref Provider: FRAN MCGRATH Height(Cm): 168 BSA: 2.05 Weight(Kg): 89.8 Heart Rate: 94 BP: 130 / 78 Quality: Good Order Provider: FRAN MCGRATH PROCEDURES: Echocardiographic Report: Transthoracic echocardiogram with complete 2D, M-Mode, and color Doppler examination. INDICATIONS: Cardiac Tamponade and Pericardial Effusion. MEASUREMENTS: 2D/MM Value Range Doppler Value Range EF Mod BP 57 % [ 52 - 72 ] MERARI Vmax 2.91 cm2 Estimated EF 60-65 % AV Mean PG 2 mmHg LVIDd 2D 3.21 cm [ 4.20 - 5.80 ] AV Peak Jn 0.83 m/s [ 1.00 - 1.70 ] LVIDs 2D 2.08 cm [ 2.50 - 4.00 ] AV VTI 10.65 cm LVPWd 2D 1.78 cm [ 0.60 - 1.00 ] LVOT Diam 2.24 cm IVSd 2D 1.36 cm [ 0.60 - 1.00 ] LVOT Peak Jn 0.61 m/s [ 0.70 - 1.10 ] LA Dimension 2D 2.82 cm [ 3.00 - 4.00 ] LVOT VTI 11.12 cm LA Dimension MM 2.74 cm [ 3.00 - 4.00 ] SI LVOT 22.0 ml/m2 [ >= 35.0 ] AoR Diam MM 3.15 cm [ 3.10 - 3.70 ] MV E Peak Jn 0.62 m/s [ 0.60 - 1.30 ] MV A Peak Jn 0.86 m/s [ 1.00 - 1.20 ] MV Mean PG 2 mmHg MV PHT 39 msec [ 20 - 100 ] MVA PHT 5.70 cm2 MV Decel Time 133 msec [ 104 - 258 ] PV Peak Jn 0.75 m/s [ 0.40 - 0.80 ] TR Peak Jn 1.70 m/s [ 1.00 - 2.80 ] TR Peak PG 12 mmHg E` 0.06 m/s E/E` 9.77 2D/MM Value Range Doppler Value Range - FINDINGS: Atrial Septum: Normal atrial septum. Left Ventricle: Normal left ventricular size. Moderate concentric left ventricular hypertrophy. Normal global left ventricular systolic function. Paradoxical septal motion consistent with post operative status. Impaired diastolic relaxation Grade I. Ejection fraction is measured at 57 %. Ejection Fraction is visually estimated to be 60-65 %. Left Atrium: There is compression of the left atrium. Right Ventricle: Normal right ventricular size. Mild right ventricular hypokinesis. Linear artifact in right ventricle suggestive of catheter(s), pacemaker lead(s), or ICD lead(s). Right Atrium: Linear artifact in right atrium suggestive of catheter(s), pacemaker lead(s), or ICD lead(s). Aortic Valve: Trileaflet aortic valve. No evidence of hemodynamically significant aortic stenosis by Doppler. No aortic regurgitation. Mitral Valve: Normal structure of the mitral valve. Trivial regurgitation of the mitral valve. Pulmonic Valve: Pulmonic valve not well visualized. No evidence of pulmonic regurgitation. Tricuspid Valve: Mild tricuspid regurgitation. Pericardium: Posteriorly, the pericardial effusion is moderate in size, measuring up to 1.4cm. There is compression of the left atrium. Anteriorly, effusion is large in size, measuring up to 2.6cm. Aorta: Normal aortic root. IVC: The IVC is not well visualized. CONCLUSIONS: Normal left ventricular size. Moderate concentric left ventricular hypertrophy. Normal global left ventricular systolic function. Paradoxical septal motion consistent with post operative status. Impaired diastolic relaxation Grade I. Ejection fraction is measured at 57 %. Ejection Fraction is visually estimated to be 60-65 %. Normal right ventricular size. Mild right ventricular hypokinesis. Posteriorly, the pericardial effusion is moderate in size, measuring up to 1.4cm. There is compression of the left atrium. Anteriorly, effusion is large in size, measuring up to 2.6cm. Electronically Signed By: Isidro Carvalho MD 01/07/2025 3:23:39 PM CDT Procedure Note Isidro Carvalho MD - 01/07/2025 [place] [address] Echocardiogram Report Patient Name: SHAWN SHULTZ BRI : 1950 Study Date: 01/07/2025 1:26:17 PM Gender: M Tech: JELANI Location: [id number] Ref Provider: FRAN MCGRATH Height(Cm): 168 BSA: 2.05 Weight(Kg): 89.8 Heart Rate: 94 BP: 130 / 78 Quality: Good Order Provider: FRAN MCGRATH PROCEDURES: Echocardiographic Report: Transthoracic echocardiogram with complete 2D, M-Mode, and color Dopplerexamination. INDICATIONS: Cardiac Tamponade and Pericardial Effusion. MEASUREMENTS: 2D/MM Value Range Doppler ValueRange EF Mod BP 57 % [ 52 - 72 ] MERARI Vmax 2.91cm2 Estimated EF 60-65 % AV Mean PG 2 mmHg LVIDd 2D 3.21 cm [ 4.20 - 5.80 ] AV Peak Jn 0.83 m/s[ 1.00 - 1.70 ] LVIDs 2D 2.08 cm [ 2.50 - 4.00 ] AV VTI 10.65cm LVPWd 2D 1.78 cm [ 0.60 - 1.00 ] LVOT Diam 2.24cm IVSd 2D 1.36 cm [ 0.60 - 1.00 ] LVOT Peak Jn 0.61 m/s[ 0.70 - 1.10 ] LA Dimension 2D 2.82 cm [ 3.00 - 4.00 ] LVOT VTI 11.12cm LA Dimension MM 2.74 cm [ 3.00 - 4.00 ] SI LVOT 22.0ml/m2 [ >= 35.0 ] AoR Diam MM 3.15 cm [ 3.10 - 3.70 ] MV E Peak Jn 0.62 m/s[ 0.60 - 1.30 ] MV A Peak Jn 0.86 m/s [ 1.00 - 1.20 ] MV Mean PG 2 mmHg MV PHT 39 msec [ 20 - 100 ] MVA PHT 5.70 cm2 MV Decel Time 133 msec [ 104 - 258 ] PV Peak Jn 0.75 m/s [ 0.40 - 0.80 ] TR Peak Jn 1.70 m/s [ 1.00 - 2.80 ] TR Peak PG 12 mmHg E` 0.06 m/s E/E` 9.77 2D/MM Value Range Doppler ValueRange - FINDINGS: Atrial Septum: Normal atrial septum. Left Ventricle: Normal left ventricular size. Moderate concentric left ventricularhypertrophy. Normal global left ventricular systolic function. Paradoxical septal motionconsistent with post operative status. Impaired diastolic relaxation Grade I. Ejection fractionis measured at 57 %. Ejection Fraction is visually estimated to be 60-65 %. Left Atrium: There is compression of the left atrium. Right Ventricle: Normal right ventricular size. Mild right ventricular hypokinesis. Linearartifact in right ventricle suggestive of catheter(s), pacemaker lead(s), or ICDlead(s). Right Atrium: Linear artifact in right atrium suggestive of catheter(s), pacemakerlead(s), or ICD lead(s). Aortic Valve: Trileaflet aortic valve. No evidence of hemodynamically significant aorticstenosis by Doppler. No aortic regurgitation. Mitral Valve: Normal structure of the mitral valve. Trivial regurgitation of the mitralvalve. Pulmonic Valve: Pulmonic valve not well visualized. No evidence of pulmonicregurgitation. Tricuspid Valve: Mild tricuspid regurgitation. Pericardium: Posteriorly, the pericardial effusion is moderate in size, measuring up to1.4cm. There is compression of the left atrium. Anteriorly, effusion is large in size,measuring up to 2.6cm. Aorta: Normal aortic root. IVC: The IVC is not well visualized. CONCLUSIONS: Normal left ventricular size. Moderate concentric left ventricularhypertrophy. Normal global left ventricular systolic function. Paradoxical septal motionconsistent with post operative status. Impaired diastolic relaxation Grade I. Ejection fractionis measured at 57 %. Ejection Fraction is visually estimated to be 60-65 %. Normal right ventricular size. Mild right ventricular hypokinesis. Posteriorly, the pericardial effusion is moderate in size, measuring up to1.4cm. There is compression of the left atrium. Anteriorly, effusion is large in size,measuring up to 2.6cm. Electronically Signed By: Isidro Carvalho MD 01/07/2025 3:23:39 PM CDT Fran Mcgrath NP CV ECHO PROCEDURES Final Result * ECG 12 lead (01/07/2025 2:15 PM CDT) 01/07/2025 2:15 PM CDT Narrative [facility] - 01/07/2025 2:36 PM CDT Vent Rate: 96 bpm RR Interval: 625 msec VA Interval: 234 msec QRS Duration: 101 msec QT Interval: 367 msec QTC Interval: 420 msec P-R-T [place]: 24 - 119 - 97 degrees IMPRESSION: SINUS RHYTHM WITH FIRST DEGREE AV BLOCK INCOMPLETE RIGHT BUNDLE BRANCH BLOCK RIGHT VENTRICULAR HYPERTROPHY NONSPECIFIC ST \T\ T-WAVE ABNORMALITY Electronically Signed By: Washington Díaz MD, [facility] us Fran Mcgrath NP ECG ORDERABLES Final Re sult [facility] * X-ray chest 1 view (Portable) (01/07/2025 1:23 PM CDT) Anatomical Region Laterality Modality Body, Chest N/A Computed Radiogr aphy 01/07/2025 1:28 PM CDT Impressions 01/07/2025 1:28 PM CDT Findings as described above. Electronically signed by: Zenon Wing M.D. Narrative 01/07/2025 1:28 PM CDT EXAMINATION: XR CHEST 1 VIEW HISTORY: The patient is a 74-year-old male who presents with chest discomfort. Comparison made with the previous study dated 01/19/2025. TECHNIQUE: AP portable view of the chest. FINDINGS: Cardiomegaly with aortic atherosclerosis. No failure. No active infiltrate. There is a single-lead pacemaker as well as a leadless cardiac device once again noted. Procedure Note Zenon Wing MD - 01/07/2025 EXAMINATION: XR CHEST 1 VIEW HISTORY: The patient is a 74-year-old male who presents with chest discomfort. Comparison made with the previous study dated 01/19/2025. TECHNIQUE: AP portable view of the chest. FINDINGS: Cardiomegaly with aortic atherosclerosis. No failure. No active infiltrate. There is a single-lead pacemaker as well as a leadless cardiac device once again noted. IMPRESSION: Findings as described above. Electronically signed by: Zenon Wing M.D. 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 IMG XR PROCEDURES Final Result * (ABNORMAL) POCT glucose (01/07/2025 12:53 PM CDT) Glucose, POC 212(H) 70 - 199 mg/dL POC Performer [id number] JEFF BORDERICK Blood 01/07/2025 12:5 3 PM CDT 01/07/2025 12:53 PM CDT Génesis Delatorre MD LAB POCT ORDERABLES - DEVICE Final Result JEFF BRODERICK [address] Department [place] [address] * (ABNORMAL) Troponin T high-sensitivity 2-hour (01/07/2025 10:28 AM CDT) Trop T hs 74(H) <=22 ng/L Comment: Michael Mcnulty RN ER Interpretive Data For further hscTnT resources including the diagnostic algorithm and an aid in interpretation, copy and paste this link: https://nrl.testcatalog.org/show/hsTrop Current Interpretive Data last revised 2020. Trop T hs delta 41(C) ng/L [facility] ([place]) Comment:Critical Result call ed by [id number] at 2025-01-07 11:19:30. Result Read Back by Michael Mcnulty RN ER Trop T hs interp Significa nt(C) [facility] ([place]EL) Comment:Critical Result call ed by [email or web address] at 2025-01-07 11:19:30. Result Read Back by Michael Mcnulty RN ER Blood 01/07/2025 10:2 8 AM CDT 01/07/2025 10:33 AM CDT us Jt Mejia MD LAB BLOOD ORDERABLE S Final Result JEFF [facility] ([place]) [facility] Department [place] [address] * [facility] CRITICAL CARE ILL/INJURED PATIENT INIT 30-74 MIN (01/07/2025 10:27 AM CDT) Narrative Jt Mejia MD - 01/07/2025 10:27 AM CDT Jt Mejia MD 01/07/2025 10:28 AM Critical Care Performed by: Jt Mejia MD Authorized by: Jt Mejia MD Critical care provider statement: As reflected in the history, physical exam, orders, notes, and/or MDM, I was personally present while the patient was critically ill and provided critical care services for 33 minutes, excluding time involved in separately billable procedures. Critical care was necessary to treat or prevent imminent or life-threatening deterioration of the following condition(s): unstable vital signs cardiogenic shock, cardiac tamponade, tachy/neha arrhythmic event and severe cardiac condition Critical care was time spent by me providing the following: continuous telemetry, continuous pulse oximetry, serial bedside patient exams and resuscitation with fluids serial evaluation and management of pericardial effusion I provided emergent necessary critical care medicine services to this patient. I ordered and reviewed test results and/or imaging studies. I spent time discussing the management of this critically ill patient with consultants and the medical staff. I spent time discussing the management and therapeutic options for this critically ill patient with the patient themselves or with the appropriate designated surrogate decision-maker. I admitted this patient to an Intensive Care unit (ICU) and discussed management with the admitting team. I spent time documenting in the medical record. us Jt Mejia MD IN CLINIC/BEDSIDE O RDERABLES Final Result * (ABNORMAL) POCT glucose (01/07/2025 10:12 AM CDT) Glucose, POC 219(H) 70 - 199 mg/dL Blood 01/07/2025 10:1 2 AM CDT 01/07/2025 10:12 AM CDT Jomar No MD LAB POCT ORDERABLES - NOAH CE Final Result JEFF [facility] [address] Department [place] [address] * TRANSTHORACIC ECHO (TTE) LIMITED/FOLLOW UP WO DOPPLER/CF WO CONTRAST (01/07/2025 9:32 AM CDT) Pathologist [facility] Estimated EF 65 % CONS SCIMAGE Anatomical Region Laterality Modality Ultrasound 01/07/2025 9:09 AM CDT Narrative 01/07/2025 9:54 AM CDT [address] [address] Limited Echocardiogram Report Patient Name: SHAWN SHULTZHAILY : 1950 Study Date: 01/07/2025 9:09:51 AM Gender: M Tech: AA Location: [facility] Ref Provider: JT MEJIA Height(Cm): BSA: Weight(Kg): Quality: Good PROCEDURES: Echocardiographic Report: Limited transthoracic echocardiogram with 2D and M-Mode. INDICATIONS: tamponade. MEASUREMENTS: 2D/MM Value Range Estimated EF 65 % 2D/MM Value Range - FINDINGS: Left Ventricle: Normal left ventricular systolic function with no focal wall motion abnormalities. Moderate concentric left ventricular hypertrophy. Reduced left ventricular cavity size. Ejection Fraction is estimated to be 65 %. Right Ventricle: Prominent moderator band - normal variant. Pericardium: Moderate pericardial effusion. CONCLUSIONS: Normal left ventricular systolic function with no clear wall motion abnormalities. Moderate concentric left ventricular hypertrophy. Reduced left ventricular cavity size. Ejection Fraction is estimated to be 65 %. Pacemaker wire in right ventricle. Moderate pericardial effusion mostly posterior and lateral to left ventricle with compression of the free left atrial wall. Small effusion over the right ventricle with possible hematoma. Limited 2D echo study. Electronically Signed By: Jose Godoy MD 01/07/2025 9:54:23 AM CDT Procedure Note Jose Godoy MD - 01/07/[address] [place] [address] Limited Echocardiogram Report Patient Name: SHAWN SHULTZ BRI : 1950 Study Date: 01/07/2025 9:09:51 AM Gender: M Tech: AA Location: [facility] Ref Provider: JT MEJIA Height(Cm): BSA: Weight(Kg): Quality: Good PROCEDURES: Echocardiographic Report: Limited transthoracic echocardiogram with 2D and M-Mode. INDICATIONS: tamponade. MEASUREMENTS: 2D/MM Value Range Estimated EF 65 % 2D/MM Value Range - FINDINGS: Left Ventricle: Normal left ventricular systolic function with no focal wall motionabnormalities. Moderate concentric left ventricular hypertrophy. Reduced left ventricularcavity size. Ejection Fraction is estimated to be 65 %. Right Ventricle: Prominent moderator band - normal variant. Pericardium: Moderate pericardial effusion. CONCLUSIONS: Normal left ventricular systolic function with no clear wall motionabnormalities. Moderate concentric left ventricular hypertrophy. Reduced left ventricularcavity size. Ejection Fraction is estimated to be 65 %. Pacemaker wire in right ventricle. Moderate pericardial effusion mostly posterior and lateral to leftventricle with compression of the free left atrial wall. Small effusion over the rightventricle with possible hematoma. Limited 2D echo study. Electronically Signed By: Jose Godoy MD 01/07/2025 9:54:23 AM CDT Jt Mejia MD CV ECHO PROCEDURES Final Result * XR Chest 1 View (01/07/2025 9:10 AM CDT) Anatomical Region Laterality Modality Body, Chest N/A Computed Radiogr aphy 01/07/2025 9:42 AM CDT Narrative 01/07/2025 9:44 AM CDT EXAM DESCRIPTION: XR CHEST 1 VIEW REASON FOR STUDY: dyspnea, c/f pna history of CAD status post CABG x4 414, diabetes, hypertension, and hyperlipidemia who presents with syncope and dyspnea. Has been coughing since surgery TECHNIQUE: Single radiographic view(s) of the chest. COMPARISON: Chest radiograph 01/01/2025 FINDINGS: LUNGS: Patient is tilted to the right. No focal opacity, pleural effusion, or pneumothorax. HEART/MEDIASTINUM: Cardiac silhouette normal in size. Mediastinal and hilar contours appear normal. LINES/TUBES: Single lead pacemaker and leadless cardiac device, stable. BONES: No acute osseous abnormality. IMPRESSION: No acute cardiopulmonary abnormality. THIS IS AN ELECTRONICALLY VERIFIED FINAL REPORT 01/07/2025 9:44 AM - Electronically signed by Lyla Salamanca M.D. FT: FT Report ID: [id number] Reading Location: [id number] Procedure Note Lyla Roberson MD - 01/07/2025 EXAM DESCRIPTION: XR CHEST 1 VIEW REASON FOR STUDY: dyspnea, c/f pna history of CAD status post CABG x4 414, diabetes, hypertension, and hyperlipidemia who presents with syncope and dyspnea. Has been coughingsince surgery TECHNIQUE: Single radiographic view(s) of the chest. COMPARISON: Chest radiograph 01/01/2025 FINDINGS: LUNGS: Patient is tilted to the right. No focal opacity, pleuraleffusion, or pneumothorax. HEART/MEDIASTINUM: Cardiac silhouette normal in size. Mediastinal andhilar contours appear normal. LINES/TUBES: Single lead pacemaker and leadless cardiac device, stable. BONES: No acute osseous abnormality. IMPRESSION: No acute cardiopulmonary abnormality. THIS IS AN ELECTRONICALLY VERIFIED FINAL REPORT 01/07/2025 9:44 AM - Electronically signed by Lyla Salamanca M.D. FT: FT Report ID: [id number] Reading Location: [id number] Jt Mejia MD IMG XR PROCEDURES F inal Result * (ABNORMAL) Sepsis Lactate w/ Reflex (01/07/2025 8:58 AM CDT) Sepsis Lactate 3.9(H) 0.7 - 2.0 mmol/L Blood 01/07/2025 8:58 AM CDT 01/07/2025 9:01 AM CDT Jt Mejia MD LAB BLOOD ORDERABLE S Final Result Performing Organization Address City/[facility] Co de Phone Number JEFF IGLESIAS [place]) 1 [facility] [place] [address] * (ABNORMAL) Troponin T high-sensitivity series (baseline, 2hr, 4hr, 6hr) (01/07/2025 8:40 AM CDT) Trop T hs 33(H) <=22 ng/L Comment: Interpretive Data For further hscTnT resources including the diagnostic algorithm and an aid in interpretation, copy and paste this link: https://nrl.testcatalog.org/show/hsTrop Current Interpretive Data last revised 2020. Blood 01/07/2025 8:40 AM CDT 01/07/2025 8:45 AM CDT us Jt Mejia MD LAB BLOOD ORDERABLE S Final Result Performing Organization Address City/[facility]/ZIP Co de Phone Number JEFF IGLESIAS ([place]) 1 [facility] [place] [address] * eGFR (01/07/2025 8:40 AM CDT) eGFR >90 >=60 mL/min/1. 73 m2 Comment: Interpretive Data [...] interpretive data was last reviewed 2021. Blood 01/07/2025 8:40 AM CDT 01/07/2025 8:45 AM CDT us Jt Mejia MD LAB BLOOD ORDERABLE S Final Result [facility] ([place]) 1 [facility] Department [place] [address] * (ABNORMAL) Differential, auto (01/07/2025 8:40 AM CDT) Neutrophil abs 4.48 1.50 - 6.50 K/cumm Imm gran abs 0.02 0.00 - 0.10 K/cumm [facility] ([place]) Lymphocyte abs 2.42 0.80 - 3.30 K/cumm [facility] ([place]) Monocyte abs 0.85(H) 0.20 - 0.80 K/cumm [facility] ([place]) Eosinophil abs 0.29 0.00 - 0.50 K/cumm [facility] ([place]) Basophil abs 0.07 0.00 - 0.10 K/cumm [facility] ([place]) Neutrophil pct 55.0 % [facility] ([place]) Comment: Interpretive Data Percent cell count reference ranges are not reported, since discordance with absolute values may lead to misinterpretation of CBC data. Current Interpretive Data was last revised on 2017. Imm gran pct 0.2 % [facility] ([place]) Comment: Interpretive Data Percent cell count reference ranges are not reported, since discordance with absolute values may lead to misinterpretation of CBC data. Current Interpretive Data was last revised on 2017. Lymphocyte pct 29.8 % [facility] ([place]) Comment: Interpretive Data Percent cell count reference ranges are not reported, since discordance with absolute values may lead to misinterpretation of CBC data. Current Interpretive Data was last revised on 2017. Monocyte pct 10.5 % [facility] ([place]) Comment: Interpretive Data Percent cell count reference ranges are not reported, since discordance with absolute values may lead to misinterpretation of CBC data. Current Interpretive Data was last revised on 2017. Eosinophil pct 3.6 % [facility] ([place]) Comment: Interpretive Data Percent cell count reference ranges are not reported, since discordance with absolute values may lead to misinterpretation of CBC data. Current Interpretive Data was last revised on 2017. Basophil pct 0.9 % [facility] ([place]) Comment: Interpretive Data Percent cell count reference ranges are not reported, since discordance with absolute values may lead to misinterpretation of CBC data. Current Interpretive Data was last revised on 2017. Blood 01/07/2025 8:40 AM CDT 01/07/2025 8:45 AM CDT us Jt Mejia MD LAB BLOOD ORDERABLE S Final Result [facility] ([place]) 1 [facility] Department [place] [address] * (ABNORMAL) CBC with auto differential (01/07/2025 8:40 AM CDT) WBC 8.13 3.80 - 9.90 K/cumm Hgb 9.9(L) 13.0 - 17.5 g/dL [facility] ([place]) Hct 31.2(L) 38.9 - 50.3 % [facility] ([place]) Plt 325 150 - 400 K/cumm [facility] ([place]) MPV 8.2(L) 9.1 - 12.3 fL [facility] ([place]) RBC 3.67(L) 4.30 - 5.80 M/cumm [facility] ([place]) MCV 85.0 81.3 - 96.4 fL [facility] ([place]) MCH 27.0(L) 27.1 - 33.3 pg [facility] ([place]) MCHC 31.7(L) 32.3 - 35.7 g/dL [facility] ([place]) RDW CV 13.3 11.1 - 14.9 % [facility] RDW SD 41.5 35.7 - 48.1 fL [facility] ([place]) NRBC abs 0.00 0.00 - 0.01 K/cumm [facility] ([place]) Blood 01/07/2025 8:40 AM CDT 01/07/2025 8:45 AM CDT Jt eMjia MD LAB BLOOD ORDERABLE S Final Result JEFF [facility] ([place]) 1 [facility] [place] [address] * Magnesium (01/07/2025 8:40 AM CDT) Pathologist [facility] Magnesium 1.7 1.4 - 2.5 mg/dL Blood 01/07/2025 8:40 AM CDT 01/07/2025 9:44 AM CDT us Jt Mejia MD LAB BLOOD ORDERABLE S Final Result Performing Organization Address City/[facility]/ZIP Co de Phone Number [facility] ([place]) 1 [facility] [place] [address] * (ABNORMAL) Comprehensive metabolic panel (01/07/2025 8:40 AM CDT) Sodium 138 135 - 145 mmol/L Potassium, pl 3.4 3.3 - 4.9 mmol/L [facility] ([place]) Chloride 102 97 - 110 mmol/L [facility] ([place]) CO2 20(L) 22 - 32 mmol/L [facility] Anion gap 16(H) 2 - 15 mmol/L [facility] BUN 11 6 - 25 mg/dL [facility] ([place]) Creatinine 0.79(L) 0.80 - 1.30 mg/dL [facility] ([place]) Glucose 248(H) 70 - 199 mg/dL [facility] ([place]) Comment: Interpretive Data Fasting glucose >/= 126 mg/dl is diagnostic for diabetes. Fasting is defined as no caloric intake for at least 8 hours. Fasting glucose between 100 mg/dl to 125 mg/dl is diagnostic of prediabetes. In a patient with classic symptoms of hyperglycemia or hyperglycemic crisis, a random glucose >/= 200 mg/dl is diagnostic for diabetes. In the absence of unequivocal hyperglycemia, results should be confirmed by repeat testing. The classification and Diagnosis of Diabetes Diabetes Care 2021; 46: S19-S40. Current interpretive data was last revised 2022. Calcium 8.4(L) 8.5 - 10.3 mg/dL [facility] ([place]) Bilirubin, total 0.3 0.1 - 1.2 mg/dL [facility] ([place]) Protein, pl 6.1(L) 6.5 - 8.5 g/dL [facility] ([place]) Albumin 3.0(L) 3.5 - 5.0 g/dL [facility] ([place]) Alk phos 135(H) 40 - 130 Units/L [facility] ([place]) ALT 10 7 - 55 Units/L [facility] ([place]) AST 12 10 - 50 Units/L [facility] ([place]) Blood 01/07/2025 8:40 AM CDT 01/07/2025 8:45 AM CDT us Jt Mejia MD LAB BLOOD ORDERABLE S Final Result [facility] ([place]) 1 [facility] Department [place] [address] * ECG 12 lead (01/07/2025 8:39 AM CDT) 01/07/2025 8:39 AM CDT Narrative [facility] - 01/07/2025 9:28 AM CDT Vent Rate: 91 bpm RR Interval: 654 msec VA Interval: 238 msec QRS Duration: 111 msec QT Interval: 394 msec QTC Interval: 443 msec P-R-T [place]: 7 - 132 - 71 degrees IMPRESSION: SINUS RHYTHM WITH FIRST DEGREE AV BLOCK INCOMPLETE RIGHT BUNDLE BRANCH BLOCK [90+ ms QRS DURATION, TERMINAL R IN V1/V2, 40+ ms S IN I/aVL/V4/V5/V6] POSSIBLE RIGHT VENTRICULAR HYPERTROPHY [SOME/ALL OF: PROMINENT R IN V1, LATE TRANSITION, RAD, BETO, SSS] ABNORMAL ECG no change from prior EKG Electronically Signed By: Jose Godoy MD us Jt Mejia MD ECG ORDERABLES Fin al Result [facility] * XR Chest Pa Lateral 2 Views (01/01/2025 2:55 PM CDT) Anatomical Region Laterality Modality Body, Chest N/A Computed Radiogr aphy 01/01/2025 7:24 PM CDT Narrative 01/01/2025 7:25 PM CDT EXAM DESCRIPTION: XR CHEST PA LATERAL 2 VIEWS REASON FOR STUDY: pneumonia Cough, wheezing, and SOB for a week Open heart surgery 2 weeks ago Former Smoker TECHNIQUE: 2 radiographic view(s) of the chest. COMPARISON: 12/28/2024 FINDINGS: LUNGS: No focal opacity, pleural effusion, or pneumothorax. Stable scarring left lung base. HEART/MEDIASTINUM: Cardiac silhouette normal in size. Mediastinal and hilar contours appear normal. Median sternotomy. LINES/TUBES: Pacemaker lead and loop recorder unchanged. BONES: No acute osseous abnormality. IMPRESSION: No acute cardiopulmonary abnormality. THIS IS AN ELECTRONICALLY VERIFIED FINAL REPORT 01/01/2025 7:25 PM - Electronically signed by Meir Ascencio M.D. KT: KT Report ID: [id number] Reading Location: [id number] Procedure Note Meir Ascencio MD - 01/01/2025 EXAM DESCRIPTION: XR CHEST PA LATERAL 2 VIEWS REASON FOR STUDY: pneumonia Cough, wheezing, and SOB for a week Open heart surgery 2 weeks agoFormer Smoker TECHNIQUE: 2 radiographic view(s) of the chest. COMPARISON: 12/28/2024 FINDINGS: LUNGS: No focal opacity, pleural effusion, or pneumothorax. Stablescarring left lung base. HEART/MEDIASTINUM: Cardiac silhouette normal in size. Mediastinal andhilar contours appear normal. Median sternotomy. LINES/TUBES: Pacemaker lead and loop recorder unchanged. BONES: No acute osseous abnormality. IMPRESSION: No acute cardiopulmonary abnormality. THIS IS AN ELECTRONICALLY VERIFIED FINAL REPORT 01/01/2025 7:25 PM - Electronically signed by Meir Ascencio M.D. KT: KT Report ID: [id number] Reading Location: [place] [address] us Nayely Sharp BACKEND DEVELOPER IMG XR PROCEDURES Fin al Result * X-ray chest 2 views (12/28/2024 12:23 PM CDT) Anatomical Region Laterality Modality Body, Chest N/A Computed Radiogr aphy 12/28/2024 2:46 PM CDT Impressions 12/28/2024 2:46 PM CDT MINIMAL SCARRING LEFT BASE. NO ACUTE FINDINGS Electronically signed by: Vick Cruz M.D. Narrative 12/28/2024 2:46 PM CDT EXAMINATION: XR CHEST PA LATERAL 2 VIEWS HISTORY: Cardiac bypass FINDINGS: Compared with study of 7 days earlier, pacing lead in the right side again seen Loop recorder seen. Postsurgical changes in the heart and mediastinum with normal heart size. Scarring left lung base. No failure fluid. Procedure Note Vick Cruz MD - 12/28/2024 EXAMINATION: XR CHEST PA LATERAL 2 VIEWS HISTORY: Cardiac bypass FINDINGS: Compared with study of 7 days earlier, pacing lead in the right side again seen Loop recorder seen. Postsurgical changes in the heart and mediastinum with normal heart size. Scarring left lung base. No failure fluid. IMPRESSION: MINIMAL SCARRING LEFT BASE. NO ACUTE FINDINGS Electronically signed by: Vick Cruz M.D. us Jose Vega BACKEND DEVELOPER IMG XR PROCEDURES Final Res ult * eGFR (12/26/2024 11:57 AM CDT) eGFR >90 >=60 mL/min/1. 73 m2 Comment: Interpretive Data [...] interpretive data was last reviewed 2021. Blood 12/26/2024 11:5 7 AM CDT 12/26/2024 4:04 PM CDT Jose Vega NP LAB BLOOD ORDERABLES Final Result [facility] [place] [address] * (ABNORMAL) Differential, auto (12/26/2024 11:57 AM CDT) Neutrophil abs 5.27 1.50 - 6.50 K/cumm Imm gran abs 0.06 0.00 - 0.10 K/cumm [facility] Lymphocyte abs 1.07 0.80 - 3.30 K/cumm [facility] Monocyte abs 0.87(H) 0.20 - 0.80 K/cumm [facility] Eosinophil abs 0.33 0.00 - 0.50 K/cumm [facility] Basophil abs 0.07 0.00 - 0.10 K/cumm [facility] Neutrophil pct 68.7 % [facility] Comment: Interpretive Data Percent cell count reference ranges are not reported, since discordance with absolute values may lead to misinterpretation of CBC data. Current Interpretive Data was last revised on 2017. Imm gran pct 0.8 % [facility] Comment: Interpretive Data Percent cell count reference ranges are not reported, since discordance with absolute values may lead to misinterpretation of CBC data. Current Interpretive Data was last revised on 2017. Lymphocyte pct 14.0 % [facility] Comment: Interpretive Data Percent cell count reference ranges are not reported, since discordance with absolute values may lead to misinterpretation of CBC data. Current Interpretive Data was last revised on 2017. Monocyte pct 11.3 % [facility] Comment: Interpretive Data Percent cell count reference ranges are not reported, since discordance with absolute values may lead to misinterpretation of CBC data. Current Interpretive Data was last revised on 2017. Eosinophil pct 4.3 % [facility] Comment: Interpretive Data Percent cell count reference ranges are not reported, since discordance with absolute values may lead to misinterpretation of CBC data. Current Interpretive Data was last revised on 2017. Basophil pct 0.9 % [facility] Comment: Interpretive Data Percent cell count reference ranges are not reported, since discordance with absolute values may lead to misinterpretation of CBC data. Current Interpretive Data was last revised on 2017. Blood 12/26/2024 11:5 7 AM CDT 12/26/2024 4:02 PM CDT us Jose Vega BACKEND DEVELOPER LAB BLOOD ORDERABLES Final Result [facility] [place] [address] * (ABNORMAL) CBC with auto differential (12/26/2024 11:57 AM CDT) WBC 7.67 3.80 - 9.90 K/cumm Hgb 10.3(L) 13.0 - 17.5 g/dL [facility] Hct 32.4(L) 38.9 - 50.3 % [facility] Plt 447(H) 150 - 400 K/cumm [facility] MPV 8.3(L) 9.1 - 12.3 fL [facility] RBC 3.65(L) 4.30 - 5.80 M/cumm [facility] MCV 88.8 81.3 - 96.4 fL [facility] MCH 28.2 27.1 - 33.3 pg [facility] MCHC 31.8(L) 32.3 - 35.7 g/dL [facility] RDW CV 14.5 11.1 - 14.9 % [facility] RDW SD 46.3 35.7 - 48.1 fL [facility] NRBC abs 0.00 0.00 - 0.01 K/cumm [facility] Blood 12/26/2024 11:5 7 AM CDT 12/26/2024 4:02 PM CDT Jose Vega NP LAB BLOOD ORDERABLES Final Result [facility] [place] [address] * (ABNORMAL) Comprehensive metabolic panel (12/26/2024 11:57 AM CDT) Sodium 142 135 - 145 mmol/L Potassium, pl 3.8 3.3 - 4.9 mmol/L [facility] Chloride 105 97 - 110 mmol/L [facility] CO2 25 22 - 32 mmol/L [facility] Anion gap 12 2 - 15 mmol/L [facility] BUN 11 6 - 25 mg/dL [facility] Creatinine 0.75(L) 0.80 - 1.30 mg/dL [facility] Glucose 254(H) 70 - 199 mg/dL [facility] Comment: Interpretive Data Fasting glucose >/= 126 mg/dl is diagnostic for diabetes. Fasting is defined as no caloric intake for at least 8 hours. Fasting glucose between 100 mg/dl to 125 mg/dl is diagnostic of prediabetes. In a patient with classic symptoms of hyperglycemia or hyperglycemic crisis, a random glucose >/= 200 mg/dl is diagnostic for diabetes. In the absence of unequivocal hyperglycemia, results should be confirmed by repeat testing. The classification and Diagnosis of Diabetes Diabetes Care 202; 46: S19-S40. Current interpretive data was last revised 2022. Calcium 9.1 8.5 - 10.3 mg/dL [facility] Bilirubin, total <0.2 0.1 - 1.2 mg/dL [facility] Protein, pl 6.7 6.5 - 8.5 g/dL [facility] Albumin 3.7 3.5 - 5.0 g/dL [facility] Alk phos 93 40 - 130 Units/L [facility] ALT 21 7 - 55 Units/L [facility] AST 19 10 - 50 Units/L [facility] Blood 12/26/2024 11:5 7 AM CDT 12/26/2024 4:02 PM CDT us Jose Vega NP LAB BLOOD ORDERABLES Final Result Performing Organization Address City/[facility]/ZIP Co de Phone Number [facility] [place] [address] * POCT glucose (12/21/2024 12:50 PM CDT) Glucose, POC 186 70 - 199 mg/dL POC Performer [id number] [facility] Blood 12/21/2024 12:5 0 PM CDT 12/21/2024 12:50 PM CDT us Theresa Lamb MD LAB POCT ORDERABLES - DEVICE Final Result [facility] [id number] Department [place] [address] * (ABNORMAL) Urinalysis reflex to microscopic and culture Urine, clean voided (12/21/2024 12:22 PM CDT) Color, ur Yellow Yellow Clarity, ur Clear Clear [facility] Specific gravity, ur 1.033(H) 1.003 - 1.030 [facility] pH, urine 5.0 [facility] Comment: Interpretive Data U rine pH is affected by diet, medications, systemic acid-base disturbances, and renal tubular function. pH may affect urinary stone formation. For example, urine pH below 6.0 may help reduce the tendency for calcium phosphate stones and pH greater than 6.0 may reduce the tendency for uric acid stone formation. Source: [facility] [place] Current Interpretive Data was last revised on 2017 Protein, ur ql Negative Negative [facility] Glucose, ur ql 4+(A) Negative [facility] Ketones, ur Negative Negative [facility] Bilirubin, ur Negative Negative [facility] Blood, ur Negative Negative [facility] Urobilinogen, ur <2.0 <2.0 mg/dL [facility] Nitrite, ur Negative Negative [facility] Leukocyte esterase, ur Negative Negative [facility] UA reflex comment Reflex conditions for microscopic UA and culture not met. [facility] Urine, clean voided 12/21/2024 12:22 PM CDT 12/21/2024 12:35 PM CDT us Jose Vega NP LAB MICROBIOLOGY - GENERAL ORDERABLES Final Result [facility] [id number] Department [place] [address] * XR Chest PA Lateral 2 Views (12/21/2024 8:40 AM CDT) Anatomical Region Laterality Modality Body, Chest N/A Computed Radiogr aphy 12/21/2024 8:43 AM CDT Impressions 12/21/2024 8:43 AM CDT Leadless pacer device appropriately positioned. Right-sided leads superimposed over the left mediastinum. Poststernotomy changes. No cardiomegaly. No pneumothorax or pleural effusion. No consolidation. No acute osseous abnormality. Electronically signed by: Corey Limon II, D.O. Narrative 12/21/2024 8:43 AM CDT EXAMINATION: XR CHEST PA LATERAL 2 VIEWS DATE: 12/21/2024 8:40 AM INDICATION: Coronary artery bypass graft COMPARISON: 12/20/2024. Procedure Note Corey Limon II, - 12/21/2024 EXAMINATION: XR CHEST PA LATERAL 2 VIEWS DATE: 12/21/2024 8:40 AM INDICATION: Coronary artery bypass graft COMPARISON: 12/20/2024. IMPRESSION: Leadless pacer device appropriately positioned. Right-sided leads superimposed over the left mediastinum. Poststernotomy changes. No cardiomegaly. No pneumothorax or pleural effusion. No consolidation. No acute osseous abnormality. Electronically signed by: Corey Limon II, D.O. us Jose Vega BACKEND DEVELOPER IMG XR PROCEDURES Final Res ult * POCT glucose (12/21/2024 7:41 AM CDT) Glucose, POC 100 70 - 199 mg/dL POC Performer [id number] [facility] Blood 12/21/2024 7:41 AM CDT 12/21/2024 7:41 AM CDT us Theresa Lamb MD LAB POCT ORDERABLES - DEVICE Final Result [facility] [address] [place] [address] * eGFR (12/21/2024 7:25 AM CDT) eGFR >90 >=60 mL/min/1. 73 m2 Comment: Interpretive Data [...] interpretive data was last reviewed 2021. Blood 12/21/2024 7:25 AM CDT 12/21/2024 7:48 AM CDT Jose Vega BACKEND DEVELOPER LAB BLOOD ORDERABLES Final Result JEFF [address] [place] [address] * (ABNORMAL) CBC without differential (12/21/2024 7:25 AM CDT) WBC 14.91(H) 3.80 - 9.90 K/cumm Hgb 11.4(L) 13.0 - 17.5 g/dL [facility] Hct 35.1(L) 38.9 - 50.3 % [facility] Plt 314 150 - 400 K/cumm [facility] MPV 8.5(L) 9.1 - 12.3 fL [facility] RBC 4.09(L) 4.30 - 5.80 M/cumm [facility] MCV 85.8 81.3 - 96.4 fL [facility] MCH 27.9 27.1 - 33.3 pg [facility] MCHC 32.5 32.3 - 35.7 g/dL [facility] RDW CV 13.5 11.1 - 14.9 % [facility] RDW SD 41.5 35.7 - 48.1 fL [facility] NRBC abs 0.00 0.00 - 0.01 K/cumm [facility] Blood 12/21/2024 7:25 AM CDT 12/21/2024 7:48 AM CDT Jose Vega BACKEND DEVELOPER LAB BLOOD ORDERABLES Final Result JEFF [address] [place] [address] * (ABNORMAL) Basic metabolic panel (12/21/2024 7:25 AM CDT) Sodium 141 135 - 145 mmol/L Potassium, pl 3.0(L) 3.3 - 4.9 mmol/L [facility] Chloride 102 97 - 110 mmol/L [facility] CO2 26 22 - 32 mmol/L [facility] Anion gap 13 2 - 15 mmol/L [facility] BUN 28(H) 6 - 25 mg/dL [facility] Creatinine 0.85 0.80 - 1.30 mg/dL [facility] Glucose 100 70 - 199 mg/dL [facility] Comment: Interpretive Data Fasting glucose >/= 126 mg/dl is diagnostic for diabetes. Fasting is defined as no caloric intake for at least 8 hours. Fasting glucose between 100 mg/dl to 125 mg/dl is diagnostic of prediabetes. In a patient with classic symptoms of hyperglycemia or hyperglycemic crisis, a random glucose >/= 200 mg/dl is diagnostic for diabetes. In the absence of unequivocal hyperglycemia, results should be confirmed by repeat testing. The classification and Diagnosis of Diabetes Diabetes Care 2021; 46: S19-S40. Current interpretive data was last revised 2022. Calcium 9.2 8.5 - 10.3 mg/dL [facility] Blood 12/21/2024 7:25 AM CDT 12/21/2024 7:48 AM CDT us Jose Vega NP LAB BLOOD ORDERABLES Final Result Performing Organization Address City/[facility]/ZIP Co de Phone Number JEFF BRODERICK [address] [place] [address] * POCT glucose (12/20/2024 9:19 PM CDT) [facility] Signature Glucose, POC 134 70 - 199 mg/dL POC Performer [id number] [facility] Blood 12/20/2024 9:19 PM CDT 12/20/2024 9:19 PM CDT us Theresa Lamb MD LAB POCT ORDERABLES - DEVICE Final Result Performing Organization Address City/[facility] Co de Phone Number JEFF BRODERICK [address] [place] [address] * POCT glucose (12/20/2024 5:21 PM CDT) Glucose, POC 196 70 - 199 mg/dL POC Performer [id number] [facility] Blood 12/20/2024 5:21 PM CDT 12/20/2024 5:21 PM CDT Theresa Lamb MD LAB POCT ORDERABLES - DEVICE Final Result Performing Organization Address [facility] Co de Phone Number JEFF BRODERICK [address] [facility] [place] [address] * (ABNORMAL) POCT glucose (12/20/2024 4:03 PM CDT) Glucose, POC 216(H) 70 - 199 mg/dL POC Performer [id number] [facility] Blood 12/20/2024 4:03 PM CDT 12/20/2024 4:03 PM CDT Theresa Lamb MD LAB POCT ORDERABLES - DEVICE Final Result Performing Organization Address [facility] de Phone Number JEFF BRODERICK [address] [facility] [place] [address] * (ABNORMAL) POCT glucose (12/20/2024 11:59 AM CDT) Glucose, POC 245(H) 70 - 199 mg/dL POC Performer [id number] [facility] Blood 12/20/2024 11:5 9 AM CDT 12/20/2024 11:59 AM CDT Theresa Lamb MD LAB POCT ORDERABLES - DEVICE Final Result Performing Organization Address City/[facility] Co de Phone Number JEFF BRODERICK [address] [facility] [place] [address] * (ABNORMAL) POCT glucose (12/20/2024 7:31 AM CDT) Glucose, POC 209(H) 70 - 199 mg/dL POC Performer [id number] JEFF Blood 12/20/2024 7:31 AM CDT 12/20/2024 7:31 AM CDT Theresa Lamb MD LAB POCT ORDERABLES - DEVICE Final Result Performing Organization Address City/[facility] Co de Phone Number JEFF BRODERICK [address] [place] [address] * eGFR (12/20/2024 7:13 AM CDT) eGFR 88 >=60 mL/min/1. 73 m2 Comment: Interpretive Data [...] interpretive data was last reviewed 2021. Blood 12/20/2024 7:13 AM CDT 12/20/2024 7:37 AM CDT us Jose Vega NP LAB BLOOD ORDERABLES Final Result Performing Organization Address City/[facility]/ZIP Co de Phone Number JEFF BRODERICK [address] Department [place], [place] [id number] * (ABNORMAL) CBC without differential (12/20/2024 7:13 AM CDT) WBC 14.20(H) 3.80 - 9.90 K/cumm Hgb 11.5(L) 13.0 - 17.5 g/dL [facility] Hct 35.4(L) 38.9 - 50.3 % [facility] Plt 291 150 - 400 K/cumm [facility] MPV 8.9(L) 9.1 - 12.3 fL [facility] RBC 4.06(L) 4.30 - 5.80 M/cumm [facility] MCV 87.2 81.3 - 96.4 fL [facility] MCH 28.3 27.1 - 33.3 pg [facility] MCHC 32.5 32.3 - 35.7 g/dL [facility] RDW CV 13.5 11.1 - 14.9 % [facility] RDW SD 42.6 35.7 - 48.1 fL [facility] NRBC abs 0.00 0.00 - 0.01 K/cumm [facility] Blood 12/20/2024 7:13 AM CDT 12/20/2024 7:37 AM CDT Jose Vega NP LAB BLOOD ORDERABLES Final Result [facility] [address] [place] [address] * (ABNORMAL) Basic metabolic panel (12/20/2024 7:13 AM CDT) Sodium 141 135 - 145 mmol/L Potassium, pl 3.5 3.3 - 4.9 mmol/L [facility] Chloride 100 97 - 110 mmol/L [facility] CO2 28 22 - 32 mmol/L [facility] Anion gap 13 2 - 15 mmol/L [facility] BUN 29(H) 6 - 25 mg/dL [facility] Creatinine 0.91 0.80 - 1.30 mg/dL [facility] Glucose 202(H) 70 - 199 mg/dL [facility] Comment: Interpretive Data Fasting glucose >/= 126 mg/dl is diagnostic for diabetes. Fasting is defined as no caloric intake for at least 8 hours. Fasting glucose between 100 mg/dl to 125 mg/dl is diagnostic of prediabetes. In a patient with classic symptoms of hyperglycemia or hyperglycemic crisis, a random glucose >/= 200 mg/dl is diagnostic for diabetes. In the absence of unequivocal hyperglycemia, results should be confirmed by repeat testing. The classification and Diagnosis of Diabetes Diabetes Care 202; 46: S19-S40. Current interpretive data was last revised 2022. Calcium 9.3 8.5 - 10.3 mg/dL JEFF DAVIE Blood 12/20/2024 7:13 AM CDT 12/20/2024 7:37 AM CDT Jose Vega NP LAB BLOOD ORDERABLES Final Result JEFF [address] [place] [address] * XR Chest 1 View (12/20/2024 5:57 AM CDT) Anatomical Region Laterality Modality Body, Chest N/A Computed Radiogr aphy 12/20/2024 7:55 AM CDT Impressions 12/20/2024 7:55 AM CDT The heart is enlarged. Mild pulmonary vascular congestion. Bilateral basilar infiltrates versus atelectasis. Questionable left pleural effusion. No pneumothorax. Right-sided lead ends superimposing the left mediastinum, unchanged since prior. Electronically signed by: Ashlee Page M.D. Narrative 12/20/2024 7:55 AM CDT EXAMINATION: XR CHEST 1 VIEW DATE: 12/20/2024 5:15 AM HISTORY: s/p CABG COMPARISON: 12/19/2024. Procedure Note Ashlee Page MD - 12/20/2024 EXAMINATION: XR CHEST 1 VIEW DATE: 12/20/2024 5:15 AM HISTORY: s/p CABG COMPARISON: 12/19/2024. IMPRESSION: The heart is enlarged. Mild pulmonary vascular congestion. Bilateral basilar infiltrates versus atelectasis. Questionable left pleural effusion. No pneumothorax. Right-sided lead ends superimposing the left mediastinum, unchanged since prior. Electronically signed by: Ashlee Page M.D. Jose Vega BACKEND DEVELOPER IMG XR PROCEDURES Final Res ult * (ABNORMAL) POCT glucose (12/20/2024 3:04 AM CDT) Glucose, POC 225(H) 70 - 199 mg/dL POC Performer [id number] [facility] Blood 12/20/2024 3:04 AM CDT 12/20/2024 3:04 AM CDT Theresa Lamb MD LAB POCT ORDERABLES - DEVICE Final Result Performing Organization Address City/[facility]/ZIP Co de Phone Number JEFF BRODERICK [address] [facility] [place], [place] [phone] * (ABNORMAL) POCT glucose (12/19/2024 8:49 PM CDT) Glucose, POC 328(H) 70 - 199 mg/dL POC Performer [id number] [facility] Blood 12/19/2024 8:49 PM CDT 12/19/2024 8:49 PM CDT Theresa Lamb MD LAB POCT ORDERABLES - DEVICE Final Result Performing Organization Address [facility] Co de Phone Number JEFF BRODERICK [address] [facility] [place] [address] * (ABNORMAL) POCT glucose (12/19/2024 5:09 PM CDT) Glucose, POC 230(H) 70 - 199 mg/dL POC Performer [id number] [facility] Blood 12/19/2024 5:09 PM CDT 12/19/2024 5:09 PM CDT Theresa Lamb MD LAB POCT ORDERABLES - DEVICE Final Result Performing Organization Address City/[facility]/ZIP Co de Phone Number JEFF BRODERICK [address] [facility] [place], [place] [id number] * (ABNORMAL) POCT glucose (12/19/2024 12:37 PM CDT) Glucose, POC 279(H) 70 - 199 mg/dL POC Performer [id number] [facility] Blood 12/19/2024 12:3 7 PM CDT 12/19/2024 12:37 PM CDT Theresa Labm MD LAB POCT ORDERABLES - DEVICE Final Result Performing Organization Address [facility] Co de Phone Number JEFF BRODERICK [address] [place] [address] * POCT glucose (12/19/2024 7:56 AM CDT) Glucose, POC 195 70 - 199 mg/dL POC Performer [id number] [facility] Blood 12/19/2024 7:56 AM CDT 12/19/2024 7:56 AM CDT Theresa Lamb MD LAB POCT ORDERABLES - DEVICE Final Result Performing Organization Address [facility] Phone Number JEFF BRODERICK [address] [place] [address] * XR Chest 1 View (12/19/2024 6:35 AM CDT) Anatomical Region Laterality Modality Body, Chest N/A Computed Radiogr aphy 12/19/2024 7:32 AM CDT Impressions 12/19/2024 7:32 AM CDT The heart is borderline in size. There are median sternotomy wires. Loop recorder in place. Right IJ catheter ends in the region of the cavoatrial junction. Right-sided central venous catheter ends in the caval atrial junction. Left basilar atelectasis versus infiltrate, questionable minute left pleural effusion. No pneumothorax. Degenerative changes in the shoulders. Electronically signed by: Ashlee Page M.D. Narrative 12/19/2024 7:32 AM CDT EXAMINATION: XR CHEST 1 VIEW DATE: 12/19/2024 5:40 AM HISTORY: s/p CABG COMPARISON: 12/18/2024. Procedure Note Ashlee Page MD - 12/19/2024 EXAMINATION: XR CHEST 1 VIEW DATE: 12/19/2024 5:40 AM HISTORY: s/p CABG COMPARISON: 12/18/2024. IMPRESSION: The heart is borderline in size. There are median sternotomy wires. Loop recorder in place. Right IJ catheter ends in the region of the cavoatrial junction. Right-sided central venous catheter ends in the caval atrial junction. Left basilar atelectasis versus infiltrate, questionable minute left pleural effusion. No pneumothorax. Degenerative changes in the shoulders. Electronically signed by: Ashlee Page M.D. us Jose Vega NP IMG XR PROCEDURES Final Res ult * eGFR (12/19/2024 5:44 AM CDT) eGFR >90 >=60 mL/min/1. 73 m2 Comment: Interpretive Data [...] of Race in Diagnosing Kidney Disease, JASN 202). The CKD-EPI equation should not be used for patients with unstable renal function and has not been validated in children and those over 70. Current interpretive data was last reviewed 2021. Blood 12/19/2024 5:44 AM CDT 12/19/2024 6:14 AM CDT Jose Vega NP LAB BLOOD ORDERABLES Final Result JEFF BRODERICK [address] [place] [address] * (ABNORMAL) aPTT (12/19/2024 5:44 AM CDT) aPTT 26(L) 28 - 38 sec Comment: Interpretive Data Heparin therapeutic range: 66.0 - 100.0 seconds. Range based on correlation with therapeutic heparin activity range of 0.3 - 0.7 Units/mL. Current interpretive data was last revised on 2023. Blood 12/19/2024 5:44 AM CDT 12/19/2024 6:14 AM CDT Jose Vega BACKEND DEVELOPER LAB BLOOD ORDERABLES Final Result Performing Organization Address [facility] Phone Number JEFF BRODERICK [address] [facility] [place] [address] * Protime-INR (12/19/2024 5:44 AM CDT) PT 12.8 9.7 - 13.0 sec INR 1.18 0.90 - 1.20 JEFF BRODERICK Comment: Interpretive data Oral anticoagulant therapeutic ranges: Venous thromboembolism prophylaxis or treatment: 2.0-3.0 CARDIOLOGY Standard range: 2.0-3.0 High-intensity range: 2.5-3.5 Refer to indication-specific guidelines for appropriate target ranges for prosthetic heart valve replacement. Current interpretive data was last revised on 2019. Blood 12/19/2024 5:44 AM CDT 12/19/2024 6:14 AM CDT Jose Vega NP LAB BLOOD ORDERABLES Final Result Performing Organization Address [facility] Co de Phone Number JEFF BRODERICK [address] [facility] [place], [place] [id number] * (ABNORMAL) CBC without differential (12/19/2024 5:44 AM CDT) WBC 11.54(H) 3.80 - 9.90 K/cumm Hgb 11.5(L) 13.0 - 17.5 g/dL [facility] Hct 34.1(L) 38.9 - 50.3 % [facility] Plt 239 150 - 400 K/cumm [facility] MPV 8.9(L) 9.1 - 12.3 fL [facility] RBC 4.00(L) 4.30 - 5.80 M/cumm [facility] MCV 85.3 81.3 - 96.4 fL [facility] MCH 28.8 27.1 - 33.3 pg [facility] MCHC 33.7 32.3 - 35.7 g/dL [facility] CH RDW CV 13.4 11.1 - 14.9 % [facility] CH RDW SD 41.9 35.7 - 48.1 fL [facility] NRBC abs 0.00 0.00 - 0.01 K/cumm [facility] Blood 12/19/2024 5:44 AM CDT 12/19/2024 6:20 AM CDT us Jose Vega NP LAB BLOOD ORDERABLES Final Result [facility] [address] [place] [address] * (ABNORMAL) Basic metabolic panel (12/19/2024 5:44 AM CDT) Sodium 139 135 - 145 mmol/L Potassium, pl 3.3 3.3 - 4.9 mmol/L [facility] Chloride 99 97 - 110 mmol/L [facility] CO2 26 22 - 32 mmol/L [facility] Anion gap 14 2 - 15 mmol/L [facility] BUN 26(H) 6 - 25 mg/dL [facility] Creatinine 0.82 0.80 - 1.30 mg/dL [facility] Glucose 179 70 - 199 mg/dL [facility] Comment: Interpretive Data Fasting glucose >/= 126 mg/dl is diagnostic for diabetes. Fasting is defined as no caloric intake for at least 8 hours. Fasting glucose between 100 mg/dl to 125 mg/dl is diagnostic of prediabetes. In a patient with classic symptoms of hyperglycemia or hyperglycemic crisis, a random glucose >/= 200 mg/dl is diagnostic for diabetes. In the absence of unequivocal hyperglycemia, results should be confirmed by repeat testing. The classification and Diagnosis of Diabetes Diabetes Care 2021; 46: S19-S40. Current interpretive data was last revised 2022. Calcium 9.5 8.5 - 10.3 mg/dL [facility] Blood 12/19/2024 5:44 AM CDT 12/19/2024 6:14 AM CDT us Jose Vega BACKEND DEVELOPER LAB BLOOD ORDERABLES Final Result Performing Organization Address [facility] Co de Phone Number JEFF [address] [place] [address] * POCT glucose (12/18/2024 8:41 PM CDT) Glucose, POC 135 70 - 199 mg/dL POC Performer [id number] [facility] Blood 12/18/2024 8:41 PM CDT 12/18/2024 8:41 PM CDT Theresa Lamb MD LAB POCT ORDERABLES - DEVICE Final Result Performing Organization Address [facility] Co de Phone Number JEFF BRODERICK [address] [place] [address] * (ABNORMAL) POCT glucose (12/18/2024 5:14 PM CDT) Glucose, POC 281(H) 70 - 199 mg/dL POC Performer [id number] [facility] Blood 12/18/2024 5:14 PM CDT 12/18/2024 5:14 PM CDT Theresa Lamb MD LAB POCT ORDERABLES - DEVICE Final Result Performing Organization Address [facility] Co de Phone Number JEFF [address] [place] [address] * TRANSTHORACIC ECHO (TTE) LIMITED/FOLLOW UP W LTD DOPPLER/CF W CONTRAST (12/18/2024 1:45 PM CDT) LV EF 70 % CONS SCIMAGE Anatomical Region Laterality Modality Ultrasound 12/18/2024 1:07 PM CDT Narrative 12/18/2024 3:51 PM CDT [place] [id number] Limited Echocardiogram Report Patient Name: SHAWN SHULTZ BRIAN : 1950 Study Date: 12/18/2024 1:07:07 PM Gender: M Tech: JELANI Location: [id number] Ref Provider: NATALI WEBSTER Height(Cm): 168 BSA: 2.22 Weight(Kg): 105.4 Heart Rate: 82 BP: 106/47 Quality: Good Order Provider: NATALI WEBSTER PROCEDURES: Echocardiographic Report: Limited transthoracic echocardiogram with 2D and contrast. INDICATIONS: Assess for Pericarditis, ? EF. MEASUREMENTS: 2D/MM Value Range Doppler Value Range EF Mod BP 70 % [ 52 - 72 ] MERARI 0.00 cm2 Estimated EF 70 % 2D/MM Value Range Doppler Value Range - FINDINGS: Atrial Septum: Normal atrial septum. Aorta: Normal aortic root. Sinus of Valsalva is normal. Sinotubular junction is normal. Ascending aorta is normal. Aortic arch is normal. Descending aorta is normal. Left Ventricle: Definity contrast agent used to visually enhance endocardial wall motion and contractility. Ejection fraction is measured at 70 %. Left Atrium: The left atrium is normal in size. Normal left atrial pressure based on pulmonary vein inflow. Right Ventricle: Normal right ventricular size. Normal right ventricular systolic function. Right Atrium: The right atrium is normal in size. Aortic Valve: Normal structure of the aortic valve. Mitral Valve: Normal structure of the mitral valve. Pulmonic Valve: Normal structure of the pulmonic valve. No pulmonic stenosis. Tricuspid Valve: Normal structure of the tricuspid valve. Normal right ventricular systolic pressure. Pericardium: Normal pericardium with no significant pericardial effusion. CONCLUSIONS: Definity contrast agent used to visually enhance endocardial wall motion and contractility. Ejection fraction is measured at 70 %. Normal pericardium with no significant pericardial effusion. Electronically Signed By: Jerad Jaquez MD 12/18/2024 3:50:43 PM CDT Procedure Note Ada Jaquez MD - 12/18/2024 [place] [address] Limited Echocardiogram Report Patient Name: SHAWN SHULTZ BRIAN : 1950 Study Date: 12/18/2024 1:07:07 PM Gender: M Tech: Location: [id number] Ref Provider: NATALI WEBSTER Height(Cm): 168 BSA: 2.22 Weight(Kg): 105.4 Heart Rate: 82 BP: 106/47 Quality: Good Order Provider: NATALI WEBSTER PROCEDURES: Echocardiographic Report: Limited transthoracic echocardiogram with 2D and contrast. INDICATIONS: Assess for Pericarditis, ? EF. MEASUREMENTS: 2D/MM Value Range Doppler Value Range EF Mod BP 70 % [ 52 - 72 ] MERARI 0.00 cm2 Estimated EF 70 % 2D/MM Value Range Doppler Value Range - FINDINGS: Atrial Septum: Normal atrial septum. Aorta: Normal aortic root. Sinus of Valsalva is normal. Sinotubular junction isnormal. Ascending aorta is normal. Aortic arch is normal. Descending aorta isnormal. Left Ventricle: Definity contrast agent used to visually enhance endocardial wall motionand contractility. Ejection fraction is measured at 70 %. Left Atrium: The left atrium is normal in size. Normal left atrial pressure based onpulmonary vein inflow. Right Ventricle: Normal right ventricular size. Normal right ventricular systolicfunction. Right Atrium: The right atrium is normal in size. Aortic Valve: Normal structure of the aortic valve. Mitral Valve: Normal structure of the mitral valve. Pulmonic Valve: Normal structure of the pulmonic valve. No pulmonic stenosis. Tricuspid Valve: Normal structure of the tricuspid valve. Normal right ventricular systolicpressure. Pericardium: Normal pericardium with no significant pericardial effusion. CONCLUSIONS: Definity contrast agent used to visually enhance endocardial wall motionand contractility. Ejection fraction is measured at 70 %. Normal pericardium with no significant pericardial effusion. Electronically Signed By: Jerad Jaquez MD 12/18/2024 3:50:43 PM CDT Natali Webster DO CV ECHO PROCEDURES Final Result * (ABNORMAL) POCT glucose (12/18/2024 12:42 PM CDT) Glucose, POC 289(H) 70 - 199 mg/dL POC Performer [id number] [facility] Blood 12/18/2024 12:4 2 PM CDT 12/18/2024 12:42 PM CDT Theresa Lamb MD LAB POCT ORDERABLES - DEVICE Final Result JEFF [address] [facility] [place] [address] * POCT glucose (12/18/2024 8:01 AM CDT) Glucose, POC 169 70 - 199 mg/dL POC Performer [id number] [facility] Blood 12/18/2024 8:01 AM CDT 12/18/2024 8:01 AM CDT us Theresa Lamb MD LAB POCT ORDERABLES - DEVICE Final Result JEFF BRODERICK [address] [place] [address] * XR Chest PA Lateral 2 Views (12/18/2024 7:49 AM CDT) Anatomical Region Laterality Modality Body, Chest N/A Computed Radiogr aphy 12/18/2024 9:54 AM CDT Impressions 12/18/2024 9:54 AM CDT Upper extremity central venous catheter terminates in the superior cavoatrial junction. Right IJ central venous catheter terminates in the superior cavoatrial junction. No pneumothorax or pleural effusion. Leadless pacer device noted. Poststernotomy changes are noted. There is mild pulmonary vascular congestion. No acute osseous abnormality. Electronically signed by: Corey Limon II, D.O. Narrative 12/18/2024 9:54 AM CDT EXAMINATION: XR CHEST PA LATERAL 2 VIEWS DATE: 12/18/2024 7:45 AM INDICATION: Coronary artery bypass graft. COMPARISON: 12/17/2024. Procedure Note Corey Limon II, DO - 12/18/2024 EXAMINATION: XR CHEST PA LATERAL 2 VIEWS DATE: 12/18/2024 7:45 AM INDICATION: Coronary artery bypass graft. COMPARISON: 12/17/2024. IMPRESSION: Upper extremity central venous catheter terminates in the superior cavoatrial junction. Right IJ central venous catheter terminates in the superior cavoatrial junction. No pneumothorax or pleural effusion. Leadless pacer device noted. Poststernotomy changes are noted. There is mild pulmonary vascular congestion. No acute osseous abnormality. Electronically signed by: Corey Limon II, D.O. us Jose Vega BACKEND DEVELOPER IMG XR PROCEDURES Final Res ult * ECG 12 lead (12/18/2024 7:22 AM CDT) 12/18/2024 7:22 AM CDT Narrative [facility] - 12/18/2024 9:03 AM CDT Vent Rate: 85 bpm RR Interval: 703 msec VA Interval: 200 msec QRS Duration: 112 msec QT Interval: 414 msec QTC Interval: 456 msec P-R-T [place]: 9 - 47 - 51 degrees IMPRESSION: SINUS RHYTHM INFERIOR MYOCARDIAL INFARCTION , OF INDETERMINATE AGE [40+ ms Q WAVE AND/OR ST/T ABNORMALITY IN II/aVF] ABNORMAL ECG Electronically Signed By: Jerad Jaquez MD us Theresa Lamb MD ECG ORDERABLES Final Result [facility] * eGFR (12/18/2024 5:56 AM CDT) eGFR >90 >=60 mL/min/1. 73 m2 Comment: Interpretive Data [...] interpretive data was last reviewed 2021. Blood 12/18/2024 5:56 AM CDT 12/18/2024 6:01 AM CDT us Jose Vega NP LAB BLOOD ORDERABLES Final Result JEFF BRODERICK [address] Department [place] [address] * (ABNORMAL) CBC without differential (12/18/2024 5:56 AM CDT) WBC 12.01(H) 3.80 - 9.90 K/cumm Hgb 11.4(L) 13.0 - 17.5 g/dL [facility] Hct 33.9(L) 38.9 - 50.3 % [facility] Plt 202 150 - 400 K/cumm [facility] MPV 9.1 9.1 - 12.3 fL [facility] RBC 3.91(L) 4.30 - 5.80 M/cumm [facility] MCV 86.7 81.3 - 96.4 fL [facility] MCH 29.2 27.1 - 33.3 pg [facility] MCHC 33.6 32.3 - 35.7 g/dL [facility] RDW CV 13.8 11.1 - 14.9 % [facility] RDW SD 43.5 35.7 - 48.1 fL [facility] NRBC abs 0.00 0.00 - 0.01 K/cumm [facility] Blood 12/18/2024 5:56 AM CDT 12/18/2024 6:01 AM CDT Jose Vega NP LAB BLOOD ORDERABLES Final Result [facility] [address] [place] [address] * (ABNORMAL) Hemoglobin A1c (12/18/2024 5:56 AM CDT) Pathologist [facility] Hgb A1C 7.4(H) 4.0 - 5.6 % Estimated Average Glucose 166 mg/dL [facility] Comment: The ADA recommends reporting an estimated Average Glucose (eAG) with all Hemoglobin A1c results using the equation derived from a study of 507 normal and diabetic adults. Minority populations were underrepresented and children were not included. (Diabetes Care 31:9831-8687, 2008). The eAG is not equivalent to a fasting glucose. Blood 12/18/2024 5:56 AM CDT 12/18/2024 6:01 AM CDT Jose Vega NP LAB BLOOD ORDERABLES Final Result JEFF BRODERICK [address] Department [place] [address] * (ABNORMAL) Basic metabolic panel (12/18/2024 5:56 AM CDT) Sodium 139 135 - 145 mmol/L Potassium, pl 3.6 3.3 - 4.9 mmol/L [facility] Chloride 101 97 - 110 mmol/L [facility] CO2 26 22 - 32 mmol/L [facility] Anion gap 12 2 - 15 mmol/L [facility] BUN 25 6 - 25 mg/dL [facility] Creatinine 0.75(L) 0.80 - 1.30 mg/dL [facility] Glucose 138 70 - 199 mg/dL [facility] Comment: Interpretive Data Fasting glucose >/= 126 mg/dl is diagnostic for diabetes. Fasting is defined as no caloric intake for at least 8 hours. Fasting glucose between 100 mg/dl to 125 mg/dl is diagnostic of prediabetes. In a patient with classic symptoms of hyperglycemia or hyperglycemic crisis, a random glucose >/= 200 mg/dl is diagnostic for diabetes. In the absence of unequivocal hyperglycemia, results should be confirmed by repeat testing. The classification and Diagnosis of Diabetes Diabetes Care 202; 46: S19-S40. Current interpretive data was last revised 2022. Calcium 9.3 8.5 - 10.3 mg/dL [facility] Blood 12/18/2024 5:56 AM CDT 12/18/2024 6:01 AM CDT Jose Vega NP LAB BLOOD ORDERABLES Final Result [facility] [address] [place] [address] * POCT glucose (12/18/2024 4:11 AM CDT) Glucose, POC 177 70 - 199 mg/dL POC Performer [id number] [facility] Blood 12/18/2024 4:11 AM CDT 12/18/2024 4:11 AM CDT Theresa Lamb MD LAB POCT ORDERABLES - DEVICE Final Result Performing Organization Address [facility] de Phone Number JEFF BRODERICK [address] [facility] [place] [address] * POCT glucose (12/17/2024 8:11 PM CDT) Glucose, POC 189 70 - 199 mg/dL POC Performer [id number] [facility] Blood 12/17/2024 8:11 PM CDT 12/17/2024 8:11 PM CDT Theresa Lamb MD LAB POCT ORDERABLES - DEVICE Final Result Performing Organization Address [facility] de Phone Number JEFF BRODERICK [address] [facility] [place] [address] * POCT glucose (12/17/2024 5:49 PM CDT) Glucose, POC 179 70 - 199 mg/dL POC Performer [id number] [facility] Blood 12/17/2024 5:49 PM CDT 12/17/2024 5:49 PM CDT Theresa Lamb MD LAB POCT ORDERABLES - DEVICE Final Result Performing Organization Address [facility] de Phone Number JEFF BRODERICK [address] [facility] [place] [address] * (ABNORMAL) POCT glucose (12/17/2024 1:05 PM CDT) Glucose, POC 251(H) 70 - 199 mg/dL POC Performer [id number] [facility] CH Blood 12/17/2024 1:05 PM CDT 12/17/2024 1:05 PM CDT Theresa Lamb MD LAB POCT ORDERABLES - DEVICE Final Result Performing Organization Address City/[facility] Co de Phone Number JEFF BRODERICK [address] [place] [address] * POCT glucose (12/17/2024 8:06 AM CDT) [facility] Signature Glucose, POC 139 70 - 199 mg/dL POC Performer [id number] [facility] Blood 12/17/2024 8:06 AM CDT 12/17/2024 8:06 AM CDT Theresa Lamb MD LAB POCT ORDERABLES - DEVICE Final Result Performing Organization Address [facility] de Phone Number JEFF BRODERICK [address] [place] [address] * XR Chest 1 View - in AM (12/17/2024 6:28 AM CDT) Anatomical Region Laterality Modality Body, Chest N/A Computed Radiogr aphy 12/17/2024 8:27 AM CDT Impressions 12/17/2024 8:27 AM CDT Findings as described above. Electronically signed by: Zenon Wing M.D. Narrative 12/17/2024 8:27 AM CDT EXAMINATION: XR CHEST 1 VIEW HISTORY: The patient is a 74-year-old old male who has had bypass surgery. Comparison made with the previous study dated 12/16/2024. TECHNIQUE: AP portable view of the chest. FINDINGS: Left thoracostomy tube and mediastinal drain in place. The tip of a retracted [place]-Gurpreet catheter is in the superior vena cava. Borderline cardiomegaly with aortic atherosclerosis. No failure. No active infiltrate. Procedure Note Zenon Wing MD - 12/17/2024 EXAMINATION: XR CHEST 1 VIEW HISTORY: The patient is a 74-year-old old male who has had bypass surgery. Comparison made with the previous study dated 12/16/2024. TECHNIQUE: AP portable view of the chest. FINDINGS: Left thoracostomy tube and mediastinal drain in place. The tip of a retracted [place]-Gurpreet catheter is in the superior vena cava. Borderline cardiomegaly with aortic atherosclerosis. No failure. No active infiltrate. IMPRESSION: Findings as described above. Electronically signed by: Zenon Wing M.D. Jose Vega NP IMG XR PROCEDURES Final Res ult * eGFR (12/17/2024 6:02 AM CDT) eGFR >90 >=60 mL/min/1. 73 m2 Comment: Interpretive Data [...] interpretive data was last reviewed 2021. Blood 12/17/2024 6:02 AM CDT 12/17/2024 6:33 AM CDT Jose Vega NP LAB BLOOD ORDERABLES Final Result JE[facility]ODERICK [address] [place] [address] * (ABNORMAL) CBC without differential (12/17/2024 6:02 AM CDT) WBC 10.37(H) 3.80 - 9.90 K/cumm Hgb 9.6(L) 13.0 - 17.5 g/dL [facility] Hct 29.1(L) 38.9 - 50.3 % [facility] Plt 135(L) 150 - 400 K/cumm [facility] MPV 9.2 9.1 - 12.3 fL [facility] RBC 3.33(L) 4.30 - 5.80 M/cumm [facility] MCV 87.4 81.3 - 96.4 fL [facility] MCH 28.8 27.1 - 33.3 pg [facility] MCHC 33.0 32.3 - 35.7 g/dL [facility] RDW CV 14.0 11.1 - 14.9 % [facility] RDW SD 44.2 35.7 - 48.1 fL [facility] NRBC abs 0.00 0.00 - 0.01 K/cumm [facility] Blood 12/17/2024 6:02 AM CDT 12/17/2024 6:25 AM CDT Jose Vega BACKEND DEVELOPER LAB BLOOD ORDERABLES Final Result JEFF [address] [place] [address] * (ABNORMAL) Phosphorus (12/17/2024 6:02 AM CDT) Phosphorus, pl 1.8(L) 2.3 - 4.5 mg/dL Blood 12/17/2024 6:02 AM CDT 12/17/2024 6:23 AM CDT 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 LAB BLOOD ORDERABLES Fin al Result [facility] [address] Department of [place], [place] [id number] * Magnesium (12/17/2024 6:02 AM CDT) Magnesium 2.2 1.4 - 2.5 mg/dL Blood 12/17/2024 6:02 AM CDT 12/17/2024 6:23 AM CDT Jose Vega NP LAB BLOOD ORDERABLES Final Result JE[facility]ODERICK [address] [place] [address] * (ABNORMAL) Basic metabolic panel (12/17/2024 6:02 AM CDT) Pathologist [facility] Sodium 139 135 - 145 mmol/L Potassium, pl 3.4 3.3 - 4.9 mmol/L [facility] Chloride 105 97 - 110 mmol/L [facility] CO2 22 22 - 32 mmol/L [facility] Anion gap 12 2 - 15 mmol/L [facility] BUN 28(H) 6 - 25 mg/dL [facility] Creatinine 0.80 0.80 - 1.30 mg/dL [facility] Glucose 152 70 - 199 mg/dL [facility] Comment: Interpretive Data Fasting glucose >/= 126 mg/dl is diagnostic for diabetes. Fasting is defined as no caloric intake for at least 8 hours. Fasting glucose between 100 mg/dl to 125 mg/dl is diagnostic of prediabetes. In a patient with classic symptoms of hyperglycemia or hyperglycemic crisis, a random glucose >/= 200 mg/dl is diagnostic for diabetes. In the absence of unequivocal hyperglycemia, results should be confirmed by repeat testing. The classification and Diagnosis of Diabetes Diabetes Care 2021; 46: S19-S40. Current interpretive data was last revised 2022. Calcium 8.4(L) 8.5 - 10.3 mg/dL [facility] Blood 12/17/2024 6:02 AM CDT 12/17/2024 6:23 AM CDT us Jose Vega NP LAB BLOOD ORDERABLES Final Result JE[facility] [address] [place] [address] * POCT glucose (12/17/2024 2:48 AM CDT) Glucose, POC 146 70 - 199 mg/dL POC Performer [id number] [facility] Blood 12/17/2024 2:48 AM CDT 12/17/2024 2:48 AM CDT Theresa Lamb MD LAB POCT ORDERABLES - DEVICE Final Result Performing Organization Address [facility] de Phone Number JEFF [address] [place] [address] * (ABNORMAL) POCT glucose (12/16/2024 8:28 PM CDT) Glucose, POC 226(H) 70 - 199 mg/dL POC Performer [id number] [facility] Blood 12/16/2024 8:28 PM CDT 12/16/2024 8:28 PM CDT Theresa Lamb MD LAB POCT ORDERABLES - DEVICE Final Result Performing Organization Address [facility] de Phone Number JEFF BRODERICK [address] [facility] [place] [address] * (ABNORMAL) POCT glucose (12/16/2024 4:36 PM CDT) Glucose, POC 269(H) 70 - 199 mg/dL POC Performer [id number] CERNER Blood 12/16/2024 4:36 PM CDT 12/16/2024 4:36 PM CDT Theresa Lamb MD LAB POCT ORDERABLES - DEVICE Final Result Performing Organization Address [facility] de Phone Number JEFF BRODERICK [address] [facility] [place] [address] * (ABNORMAL) POCT glucose (12/16/2024 11:54 AM CDT) Glucose, POC 237(H) 70 - 199 mg/dL POC Performer [id number] [facility] CH Blood 12/16/2024 11:5 4 AM CDT 12/16/2024 11:54 AM CDT us Theresa Lamb MD LAB POCT ORDERABLES - DEVICE Final Result Performing Organization Address [facility] Phone Number JEFF [address] [facility] [place] [address] * Critical Care (12/16/2024 8:03 AM CDT) Narrative Jostin Ordoñez MD - 12/16/2024 8:03 AM CDT Jostin Ordoñez MD 12/17/2024 6:53 AM Critical Care Performed by: Lesly Rossi NP Authorized by: Lesly Rossi NP CRITICAL CARE: Team: JULI Shift: AM Level of Billing: Subsequent Hospital Visit Level 3 My time spent with this patient was 70 minutes: Critical Provider Statement: I have seen and examined the patient on this day of service. I have reviewed and confirmed the history, physical exam, laboratory, and radiographic data as documented in the ICU note. I have reviewed and discussed my treatment plan with the patient's team and other medical/customer sales consultant staff. This time was in addition to and separate from care provided by other practitioners on this day of service. I spent time reviewing and interpreting data from bedside monitors, laboratory results, and imaging, I spent time discussing the management of this critically ill patient with consultants and the medical staff and I spent time documenting in the medical record us Lesly Rossi BACKEND DEVELOPER IN CLINIC/BEDSIDE ORDERABLES Final Result * POCT glucose (12/16/2024 8:02 AM CDT) [facility] Glucose, POC 156 70 - 199 mg/dL POC Performer [id number] [facility] Blood 12/16/2024 8:02 AM CDT 12/16/2024 8:02 AM CDT us Theresa Lamb MD LAB POCT ORDERABLES - [place] [address] [address] [place] [address] * XR Chest 1 View - in AM (12/16/2024 5:56 AM CDT) Anatomical Region Laterality Modality Body, Chest N/A Computed Radiogr aphy 12/16/2024 8:19 AM CDT Impressions 12/16/2024 8:19 AM CDT Findings as described above. Electronically signed by: Zenon Wing M.D. Narrative 12/16/2024 8:19 AM CDT EXAMINATION: XR CHEST 1 VIEW HISTORY: The patient is a 74-year-old male who has had bypass surgery. Comparison is made with the previous study dated 12/15/2024. TECHNIQUE: AP portable view of the chest. FINDINGS: The tip of the [place]-Gurpreet catheter is in the undivided main pulmonary artery. Left thoracostomy tube and mediastinal drain in place. Cardiomegaly with aortic atherosclerosis. No failure. Right basal subsegmental atelectasis with the remainder of the lungs being clear. Procedure Note Zenon Wing MD - 12/16/2024 EXAMINATION: XR CHEST 1 VIEW HISTORY: The patient is a 74-year-old male who has had bypass surgery. Comparison is made with the previous study dated 12/15/2024. TECHNIQUE: AP portable view of the chest. FINDINGS: The tip of the [place]-Gurpreet catheter is in the undivided main pulmonary artery. Left thoracostomy tube and mediastinal drain in place. Cardiomegaly with aortic atherosclerosis. No failure. Right basal subsegmental atelectasis with the remainder of the lungs being clear. IMPRESSION: Findings as described above. Electronically signed by: Zenon Wing M.D. us Jose Vega BACKEND DEVELOPER IMG XR PROCEDURES Final Res ult * Oxyhemoglobin, pulmonary artery (12/16/2024 4:37 AM CDT) Oxyhemoglobin, PA 62.0 % Comment: Interpretive Data No reference range established. Current interpretive data was last revised 2019. Blood 12/16/2024 4:37 AM CDT 12/16/2024 4:40 AM CDT 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 LAB BLOOD ORDERABLES Fin al Result Performing Organization Address [facility] Co de Phone Number JEFF [address] [place] [place] [address] * (ABNORMAL) Blood gas, pulmonary artery (12/16/2024 4:37 AM CDT) pH, PA 7.39 Comment: Interpretive Data No reference range established. Current interpretive data was last revised 2019. pCO2, PA 37 mmHg JEFF Comment: Interpretive Data No reference range established. Current interpretive data was last revised 2019. pO2, PA 34(C) mmHg JEFF Comment: Critical result called to and read back by Gordon Puentes on 12/16/2024 04:45:13 CDT to Jeannie Lyles. Interpretive Data No reference range established. Current interpretive data was last revised 2019. HCO3, PA (Calculated) 22 mmol/L JEFF Comment: Interpretive Data No reference range established. Current interpretive data was last revised 2019. Base excess PA -2 mmol/L JEFF Comment: Interpretive Data No reference range established. Current interpretive data was last revised 2019. O2 Sat, PA (Measured) 64 % JEFF Comment: Interpretive Data No reference range established. Current interpretive data was last revised 2019. Blood 12/16/2024 4:37 AM CDT 12/16/2024 4:40 AM CDT Jose Vega BACKEND DEVELOPER LAB BLOOD ORDERABLES Final Result Performing Organization Address [facility]/ZIP Co de Phone Number JEFF [address] [place] [address] * eGFR (12/16/2024 4:37 AM CDT) eGFR >90 >=60 mL/min/1. 73 m2 Comment: Interpretive Data [...] interpretive data was last reviewed 2021. Blood 12/16/2024 4:37 AM CDT 12/16/2024 4:40 AM CDT us Jose Vega NP LAB BLOOD ORDERABLES Final Result [facility] [address] [place] [address] * (ABNORMAL) CBC without differential (12/16/2024 4:37 AM CDT) WBC 12.90(H) 3.80 - 9.90 K/cumm Hgb 9.1(L) 13.0 - 17.5 g/dL [facility] Hct 28.0(L) 38.9 - 50.3 % [facility] Plt 99(L) 150 - 400 K/cumm [facility] MPV 9.1 9.1 - 12.3 fL [facility] RBC 3.21(L) 4.30 - 5.80 M/cumm [facility] MCV 87.2 81.3 - 96.4 fL [facility] MCH 28.3 27.1 - 33.3 pg [facility] MCHC 32.5 32.3 - 35.7 g/dL [facility] RDW CV 14.0 11.1 - 14.9 % [facility] RDW SD 44.1 35.7 - 48.1 fL [facility] NRBC abs 0.00 0.00 - 0.01 K/cumm [facility] Blood 12/16/2024 4:37 AM CDT 12/16/2024 4:41 AM CDT Jose Vega BACKEND DEVELOPER LAB BLOOD ORDERABLES Final Result Performing Organization Address City/[facility] Co de Phone Number JEFF [address] [place] [address] * Phosphorus (12/16/2024 4:37 AM CDT) Pathologist [facility] Phosphorus, pl 2.3 2.3 - 4.5 mg/dL Blood 12/16/2024 4:37 AM CDT 12/16/2024 4:40 AM CDT 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 LAB BLOOD ORDERABLES Fin al Result Performing Organization Address [facility] Co de Phone Number [facility] [address] [place] [address] * Magnesium (12/16/2024 4:37 AM CDT) Pathologist [facility] Magnesium 2.1 1.4 - 2.5 mg/dL Blood 12/16/2024 4:37 AM CDT 12/16/2024 4:40 AM CDT Jose Vega BACKEND DEVELOPER LAB BLOOD ORDERABLES Final Result Performing Organization Address [facility] Co de Phone Number [facility] [address] [address] [facility] [place] [address] * Basic metabolic panel (12/16/2024 4:37 AM CDT) Pathologist [facility] Sodium 139 135 - 145 mmol/L Potassium, pl 3.5 3.3 - 4.9 mmol/L [facility] Chloride 107 97 - 110 mmol/L [facility] CO2 22 22 - 32 mmol/L [facility] Anion gap 10 2 - 15 mmol/L [facility] BUN 25 6 - 25 mg/dL [facility] Creatinine 0.81 0.80 - 1.30 mg/dL [facility] Glucose 132 70 - 199 mg/dL [facility] Comment: Interpretive Data Fasting glucose >/= 126 mg/dl is diagnostic for diabetes. Fasting is defined as no caloric intake for at least 8 hours. Fasting glucose between 100 mg/dl to 125 mg/dl is diagnostic of prediabetes. In a patient with classic symptoms of hyperglycemia or hyperglycemic crisis, a random glucose >/= 200 mg/dl is diagnostic for diabetes. In the absence of unequivocal hyperglycemia, results should be confirmed by repeat testing. The classification and Diagnosis of Diabetes Diabetes Care 2021; 46: S19-S40. Current interpretive data was last revised 2022. Calcium 8.6 8.5 - 10.3 mg/dL [facility] Blood 12/16/2024 4:37 AM CDT 12/16/2024 4:40 AM CDT us Jose Vega NP LAB BLOOD ORDERABLES Final Result Performing Organization Address City/[facility]/ZIP Co de Phone Number JEFF BRODERICK [address] [place] [address] * POCT glucose (12/16/2024 2:04 AM CDT) Glucose, POC 123 70 - 199 mg/dL POC Performer [id number] [facility] Blood 12/16/2024 2:04 AM CDT 12/16/2024 2:04 AM CDT us Theresa Lamb MD LAB POCT ORDERABLES - DEVICE Final Result JEFF BRODERICK [address] [place] [address] * POCT glucose (12/15/2024 11:03 PM CDT) Glucose, POC 98 70 - 199 mg/dL POC Performer [id number] [facility] Blood 12/15/2024 11:0 3 PM CDT 12/15/2024 11:03 PM CDT Theresa Lamb MD LAB POCT ORDERABLES - DEVICE Final Result Performing Organization Address [facility] Co de Phone Number JEFF [address] [place] [address] * POCT glucose (12/15/2024 9:59 PM CDT) Glucose, POC 102 70 - 199 mg/dL POC Performer [id number] [facility] CH Blood 12/15/2024 9:59 PM CDT 12/15/2024 9:59 PM CDT Theresa Lamb MD LAB POCT ORDERABLES - DEVICE Final Result Performing Organization Address [facility] Co de Phone Number JEFF [address] [place] [address] * Critical Care (12/15/2024 9:01 PM CDT) Narrative Alexis Alicia MD - 12/15/2024 9:01 PM CDT Alexis Alicia MD 12/16/2024 6:05 AM Critical Care Performed by: Heri Tovar NP Authorized by: Heri Tovar NP CRITICAL CARE: Team: JULI Shift: PM Level of Billing: Subsequent Hospital Visit Level 3 My time spent with this patient was 60 minutes: Critical Provider Statement: I have seen and examined the patient on this day of service. I have reviewed and confirmed the history, physical exam, laboratory, and radiographic data as documented in the ICU note. I have reviewed and discussed my treatment plan with the patient's team and other medical/customer sales consultant staff. This time was in addition to and separate from care provided by other practitioners on this day of service. Heri Tovar NP IN CLINIC/BEDSIDE ORDER BEATRIZ Final Result * POCT glucose (12/15/2024 8:53 PM CDT) Glucose, POC 105 70 - 199 mg/dL POC Performer [id number] [facility] Blood 12/15/2024 8:53 PM CDT 12/15/2024 8:53 PM CDT Theresa Lamb MD LAB POCT ORDERABLES - DEVICE Final Result Performing Organization Address City/[facility] Co de Phone Number JEFF BRODERICK [address] [address] [facility] [place], [place] [id number] * POCT glucose (12/15/2024 7:53 PM CDT) Glucose, POC 129 70 - 199 mg/dL POC Performer [id number] [facility] CH Blood 12/15/2024 7:53 PM CDT 12/15/2024 7:53 PM CDT Theresa Lamb MD LAB POCT ORDERABLES - DEVICE Final Result Performing Organization Address [facility] Co de Phone Number JEFF BRODERICK [address] [address] [facility] [place] [address] * POCT glucose (12/15/2024 6:48 PM CDT) Glucose, POC 157 70 - 199 mg/dL POC Performer [id number] C[facility] CH Blood 12/15/2024 6:48 PM CDT 12/15/2024 6:48 PM CDT Theresa Lamb MD LAB POCT ORDERABLES - DEVICE Final Result Performing Organization Address [facility] Co de Phone Number JEFF BRODERICK [address] [address] [facility] [place], [place] [id number] * (ABNORMAL) POCT glucose (12/15/2024 5:50 PM CDT) Glucose, POC 210(H) 70 - 199 mg/dL POC Performer [id number] CERNER CH Blood 12/15/2024 5:50 PM CDT 12/15/2024 5:50 PM CDT Theresa Lamb MD LAB POCT ORDERABLES - DEVICE Final Result Performing Organization Address [facility] Co de Phone Number JEFF BRODERICK [address] [address] [facility] [place] [address] * POCT glucose (12/15/2024 4:49 PM CDT) Glucose, POC 141 70 - 199 mg/dL POC Performer [id number] [facility] CH Blood 12/15/2024 4:49 PM CDT 12/15/2024 4:49 PM CDT Theresa Lamb MD LAB POCT ORDERABLES - DEVICE Final Result Performing Organization Address [facility] Co de Phone Number JEFF BRODERICK [address] [address] [facility] [place] [address] * POCT glucose (12/15/2024 3:50 PM CDT) Glucose, POC 130 70 - 199 mg/dL POC Performer [id number] CERNER CH Blood 12/15/2024 3:50 PM CDT 12/15/2024 3:50 PM CDT Theresa Lamb MD LAB POCT ORDERABLES - DEVICE Final Result Performing Organization Address City/[facility] Co de Phone Number JEFF BRODERICK [address] [address] [facility] [place] [address] * POCT glucose (12/15/2024 2:52 PM CDT) Glucose, POC 130 70 - 199 mg/dL POC Performer [id number] CERNER CH Blood 12/15/2024 2:52 PM CDT 12/15/2024 2:52 PM CDT Theresa Lamb MD LAB POCT ORDERABLES - DEVICE Final Result JEFF BRODERICK [address] [facility] [place] [address] * Critical Care (12/15/2024 1:57 PM CDT) Narrative Barbra Lynn PA - 12/15/2024 1:57 PM CDT Barbra Lynn PA 12/18/2024 5:20 PM Critical Care Performed by: Barbra Lynn PA Authorized by: Barbra Lynn PA CRITICAL CARE: Team: JULI Shift: AM Level of Billing: Critical Care My time spent with this patient was 60 minutes: Critical Provider Statement: I have seen and examined the patient on this day of service. I have reviewed and confirmed the history, physical exam, laboratory and radiologic data as documented in the signed ICU note. I have reviewed and discussed my treatment plan with the ICU team and other medical/customer sales consultant staff, making frequent assessments and decisions regarding this patient's complex medical care. Critical Care time was exclusive of time spent performing separately billed procedures, treating other patients, and teaching. This time was in addition to and separate from critical care provided by other practitioners in my group on this day of service. Critical Care was necessary to treat or prevent imminent or life-threatening deterioration of the following conditions: I spent time reviewing and interpreting data from bedside monitors, laboratory results, and imaging, I spent time discussing the management of this critically ill patient with consultants and the medical staff and I spent time documenting in the medical record us Barbra GRACE IN CLINIC/BEDSIDE ORDERABLES Edited Result - Final * POCT glucose (12/15/2024 1:49 PM CDT) [facility] Glucose, POC 133 70 - 199 mg/dL POC Performer [id number] JEFF BRODERICK Blood 12/15/2024 1:49 PM CDT 12/15/2024 1:49 PM CDT Theresa Lamb MD LAB POCT ORDERABLES - DEVICE Final Result Performing Organization Address City/[facility]/ZIP Co de Phone Number JEFF BRODERICK [address] [address] [facility] [place] [address] * POCT glucose (12/15/2024 12:26 PM CDT) Glucose, POC 138 70 - 199 mg/dL POC Performer [id number] CERNER CH Blood 12/15/2024 12:2 6 PM CDT 12/15/2024 12:26 PM CDT Theresa Lamb MD LAB POCT ORDERABLES - DEVICE Final Result Performing Organization Address [facility] Co de Phone Number JEFF BRODERICK [address] [address] [facility] [place] [address] * POCT glucose (12/15/2024 11:28 AM CDT) Glucose, POC 144 70 - 199 mg/dL POC Performer [id number] CERNER CH Blood 12/15/2024 11:2 8 AM CDT 12/15/2024 11:28 AM CDT Theresa Lamb MD LAB POCT ORDERABLES - DEVICE Final Result Performing Organization Address [facility] Co de Phone Number JEFF DAVIE [address] [place] [address] * POCT glucose (12/15/2024 10:32 AM CDT) Glucose, POC 144 70 - 199 mg/dL POC Performer [id number] CERNER CH Blood 12/15/2024 10:3 2 AM CDT 12/15/2024 10:32 AM CDT Theresa Lamb MD LAB POCT ORDERABLES - DEVICE Final Result Performing Organization Address City/[facility] Co de Phone Number SAMANTHAROGER BRODERICK [address] [address] [facility] [place] [address] * POCT glucose (12/15/2024 8:34 AM CDT) Glucose, POC 137 70 - 199 mg/dL POC Performer [id number] JEFF Blood 12/15/2024 8:34 AM CDT 12/15/2024 8:34 AM CDT Theresa Lamb MD LAB POCT ORDERABLES - DEVICE Final Result Performing Organization Address [facility] de Phone Number JEFF [address] [address] [facility] [place] [address] * ECG 12 lead (12/15/2024 7:15 AM CDT) 12/15/2024 7:15 AM CDT Narrative [facility] - 12/15/2024 9:57 AM CDT Vent Rate: 85 bpm RR Interval: 704 msec VA Interval: 199 msec QRS Duration: 102 msec QT Interval: 372 msec QTC Interval: 414 msec P-R-T [place]: 7 - 48 - 47 degrees IMPRESSION: SINUS RHYTHM POSSIBLE RIGHT VENTRICULAR CONDUCTION DELAY [RSR (QR) IN V1/V2] ABNORMAL ECG Electronically Signed By: Jerad Jaquez MD Theresa Lamb MD ECG ORDERABLES Final Result Performing Organization Address [facility] Co de Phone Number [facility] * POCT glucose (12/15/2024 6:16 AM CDT) Glucose, POC 140 70 - 199 mg/dL POC Performer [id number] JEFF Blood 12/15/2024 6:16 AM CDT 12/15/2024 6:16 AM CDT Theresa Lamb MD LAB POCT ORDERABLES - DEVICE Final Result Performing Organization Address City/[facility]/ZIP Co de Phone Number SAMANTHAROGER BRODERICK [address] [address] [place] [address] * XR Chest 1 View - in AM (12/15/2024 5:43 AM CDT) Anatomical Region Laterality Modality Body, Chest N/A Computed Radiogr aphy 12/15/2024 6:08 AM CDT Impressions 12/15/2024 6:08 AM CDT Findings as described above. Electronically signed by: Zenon Wing M.D. Narrative 12/15/2024 6:08 AM CDT EXAMINATION: XR CHEST 1 VIEW HISTORY: The patient is a 74-year-old male who has had bypass surgery. Comparison made with the previous study dated 12/14/2024. TECHNIQUE: AP portable view of the chest. FINDINGS: Since the last examination, the endotracheal tube has been removed. The tip of the [place] catheter is in the undivided main pulmonary artery. Left thoracostomy tube and mediastinal drain in place. Right basal subsegmental atelectasis with the remainder of the lungs being clear. Cardiomegaly with no failure. Procedure Note Zenon Wing MD - 12/15/2024 EXAMINATION: XR CHEST 1 VIEW HISTORY: The patient is a 74-year-old male who has had bypass surgery. Comparison made with the previous study dated 12/14/2024. TECHNIQUE: AP portable view of the chest. FINDINGS: Since the last examination, the endotracheal tube has been removed. The tip of the [place] catheter is in the undivided main pulmonary artery. Left thoracostomy tube and mediastinal drain in place. Right basal subsegmental atelectasis with the remainder of the lungs being clear. Cardiomegaly with no failure. IMPRESSION: Findings as described above. Electronically signed by: Zenon Wing M.D. us Jose Vega BACKEND DEVELOPER IMG XR PROCEDURES Final Res ult * POCT glucose (12/15/2024 5:16 AM CDT) Glucose, POC 107 70 - 199 mg/dL POC Performer [id number] JEFF Blood 12/15/2024 5:16 AM CDT 12/15/2024 5:16 AM CDT Theresa Lamb MD LAB POCT ORDERABLES - DEVICE Final Result Performing Organization Address [facility] Co de Phone Number JEFF BRODERICK [address] [address] [facility] [place] [address] * POCT glucose (12/15/2024 4:20 AM CDT) Pathologist [facility] Glucose, POC 99 70 - 199 mg/dL POC Performer [id number] [facility] Blood 12/15/2024 4:20 AM CDT 12/15/2024 4:20 AM CDT Theresa Lamb MD LAB POCT ORDERABLES - DEVICE Final Result Performing Organization Address [facility] de Phone Number JEFF BRODERICK [address] [address] * (ABNORMAL) CBC without differential (12/15/2024 3:34 AM CDT) [facility] WBC 10.84(H) 3.80 - 9.90 K/cumm Hgb 10.2(L) 13.0 - 17.5 g/dL [facility] Hct 31.1(L) 38.9 - 50.3 % [facility] Plt 122(L) 150 - 400 K/cumm [facility] MPV 8.8(L) 9.1 - 12.3 fL [facility] RBC 3.59(L) 4.30 - 5.80 M/cumm [facility] MCV 86.6 81.3 - 96.4 fL [facility] MCH 28.4 27.1 - 33.3 pg [facility] MCHC 32.8 32.3 - 35.7 g/dL [facility] RDW CV 13.6 11.1 - 14.9 % [facility] RDW SD 42.3 35.7 - 48.1 fL [facility] NRBC abs 0.00 0.00 - 0.01 K/cumm [facility] Blood 12/15/2024 3:34 AM CDT 12/15/2024 3:34 AM CDT Jose Vega BACKEND DEVELOPER LAB BLOOD ORDERABLES Final Result Performing Organization Address [facility] de Phone Number JEFF [address] [address] [facility] [place] [address] * POCT glucose (12/15/2024 3:14 AM CDT) Glucose, POC 108 70 - 199 mg/dL POC Performer [id number] [facility] Blood 12/15/2024 3:14 AM CDT 12/15/2024 3:14 AM CDT Theresa Lamb MD LAB POCT ORDERABLES - DEVICE Final Result Performing Organization Address [facility] de Phone Number JEFF [address] [address] [address] * Oxyhemoglobin, pulmonary artery (12/15/2024 2:46 AM CDT) Oxyhemoglobin, PA 66.1 % Comment: Interpretive Data No reference range established. Current interpretive data was last revised 2019. Blood 12/15/2024 2:46 AM CDT 12/15/2024 3:30 AM CDT 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 LAB BLOOD ORDERABLES Fin al Result Performing Organization Address [facility] Co de Phone Number JEFF [address] [address] [address] * (ABNORMAL) Blood gas, pulmonary artery (12/15/2024 2:46 AM CDT) pH, PA 7.38 Comment: Interpretive Data No reference range established. Current interpretive data was last revised 2019. pCO2, PA 43 mmHg JEFF Comment: Interpretive Data No reference range established. Current interpretive data was last revised 2019. pO2, PA 37(C) mmHg [facility] Comment: Critical result called to and read back by Tiffany Byers on 12/15/2024 03:34:54 CDT to Marcin Bunch. Interpretive Data No reference range established. Current interpretive data was last revised 2019. HCO3, PA (Calculated) 24 mmol/L JEFF Comment: Interpretive Data No reference range established. Current interpretive data was last revised 2019. Base excess PA 0 mmol/L [facility] Comment: Interpretive Data No reference range established. Current interpretive data was last revised 2019. O2 Sat, PA (Measured) 67 % JEFF Comment: Interpretive Data No reference range established. Current interpretive data was last revised 2019. Blood 12/15/2024 2:46 AM CDT 12/15/2024 3:30 AM CDT Jose Vega BACKEND DEVELOPER LAB BLOOD ORDERABLES Final Result Performing Organization Address [facility] Co de Phone Number JEFF DAVIE [address] [address] [place] [address] * (ABNORMAL) Calcium, ionized, whole blood (12/15/2024 2:46 AM CDT) Pathologist [facility] Ca, ionized, bld 5.64(H) 4.50 - 5.10 mg/dL Blood 12/15/2024 2:46 AM CDT 12/15/2024 3:30 AM CDT Jose Vega BACKEND DEVELOPER LAB BLOOD ORDERABLES Final Result Performing Organization Address City/[facility] Co de Phone Number SAMANTHAROGER [address] [address] [place] [address] * eGFR (12/15/2024 2:46 AM CDT) Pathologist [facility] eGFR >90 >=60 mL/min/1. 73 m2 Comment: Interpretive Data [...] interpretive data was last reviewed 2021. Blood 12/15/2024 2:46 AM CDT 12/15/2024 3:30 AM CDT Jose Vega BACKEND DEVELOPER LAB BLOOD ORDERABLES Final Result Performing Organization Address [facility] Co de Phone Number SAMANTHAROGER [address] [address] [place] [address] * Phosphorus (12/15/2024 2:46 AM CDT) Phosphorus, pl 2.5 2.3 - 4.5 mg/dL Blood 12/15/2024 2:46 AM CDT 12/15/2024 3:30 AM CDT 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 LAB BLOOD ORDERABLES Fin al Result Performing Organization Address [facility] [place] [address] [address] Department of [place], [place] [id number] * Magnesium (12/15/2024 2:46 AM CDT) Magnesium 2.2 1.4 - 2.5 mg/dL Blood 12/15/2024 2:46 AM CDT 12/15/2024 3:30 AM CDT Jose Vega BACKEND DEVELOPER LAB BLOOD ORDERABLES Final Result JEFF BRODERICK [address] [address] [place] [address] * (ABNORMAL) Basic metabolic panel (12/15/2024 2:46 AM CDT) Sodium 144 135 - 145 mmol/L Potassium, pl 3.7 3.3 - 4.9 mmol/L [facility] Chloride 111(H) 97 - 110 mmol/L CERNER CH CO2 24 22 - 32 mmol/L [facility] Anion gap 9 2 - 15 mmol/L [facility] BUN 19 6 - 25 mg/dL [facility] Creatinine 0.76(L) 0.80 - 1.30 mg/dL CERNER CH Glucose 109 70 - 199 mg/dL [facility] Comment: Interpretive Data Fasting glucose >/= 126 mg/dl is diagnostic for diabetes. Fasting is defined as no caloric intake for at least 8 hours. Fasting glucose between 100 mg/dl to 125 mg/dl is diagnostic of prediabetes. In a patient with classic symptoms of hyperglycemia or hyperglycemic crisis, a random glucose >/= 200 mg/dl is diagnostic for diabetes. In the absence of unequivocal hyperglycemia, results should be confirmed by repeat testing. The classification and Diagnosis of Diabetes Diabetes Care 2021; 46: S19-S40. Current interpretive data was last revised 2022. Calcium 9.8 8.5 - 10.3 mg/dL [facility] Blood 12/15/2024 2:46 AM CDT 12/15/2024 3:30 AM CDT Jose Vega BACKEND DEVELOPER LAB BLOOD ORDERABLES Final Result JEFF BRODERICK [address] [address] [place] [address] * POCT glucose (12/15/2024 2:23 AM CDT) Glucose, POC 130 70 - 199 mg/dL POC Performer [id number] [facility] Blood 12/15/2024 2:23 AM CDT 12/15/2024 2:23 AM CDT Theresa Lamb MD LAB POCT ORDERABLES - DEVICE Final Result Performing Organization Address [facility] Co de Phone Number JEFF BRODERICK [address] [address] [facility] [place] [address] * POCT glucose (12/15/2024 12:59 AM CDT) Glucose, POC 136 70 - 199 mg/dL POC Performer [id number] CERNER CH Blood 12/15/2024 12:5 9 AM CDT 12/15/2024 12:59 AM CDT Theresa Lamb MD LAB POCT ORDERABLES - DEVICE Final Result Performing Organization Address [facility] de Phone Number JEFF BRODERICK [address] [address] [place] [address] * POCT glucose (12/14/2024 11:53 PM CDT) Glucose, POC 168 70 - 199 mg/dL POC Performer [id number] CERNER CH Blood 12/14/2024 11:5 3 PM CDT 12/14/2024 11:53 PM CDT Theresa Lamb MD LAB POCT ORDERABLES - DEVICE Final Result Performing Organization Address [facility] de Phone Number JEFF BRODERICK [address] [address] [address] * (ABNORMAL) Blood gas, arterial (12/14/2024 11:50 PM CDT) pH, Art 7.40 7.35 - 7.45 PCO2, Arterial 37 35 - 45 mmHg CERNER CH PO2, Arterial 81(L) 83 - 108 mmHg CERNER CH HCO3 Art (Calculated) 23 20 - 30 mmol/L CERNER CH BE, art -1 mmol/L CERNER CH Comment: Interpretive Data No Reference Range Established Current Interpretive Data was last revised on 2017 O2 Sat Art (Measured) 96(H) 90 - 95 % CERNER CH Blood 12/14/2024 11:5 0 PM CDT 12/14/2024 11:56 PM CDT Theresa Lamb MD LAB BLOOD ORDERABLES Final R esult Performing Organization Address [facility] Co de Phone Number JEFF BRODERICK [address] [place] [address] * (ABNORMAL) CBC without differential (12/14/2024 11:12 PM CDT) WBC 12.50(H) 3.80 - 9.90 K/cumm Hgb 10.5(L) 13.0 - 17.5 g/dL CERNER Hct 31.3(L) 38.9 - 50.3 % CERNER CH Plt 166 150 - 400 K/cumm CERNER CH MPV 8.5(L) 9.1 - 12.3 fL CERNER RBC 3.68(L) 4.30 - 5.80 M/cumm CERNER MCV 85.1 81.3 - 96.4 fL CERNER MCH 28.5 27.1 - 33.3 pg CERNER MCHC 33.5 32.3 - 35.7 g/dL [facility]ERN[facility] CH RDW CV 13.4 11.1 - 14.9 % [facility] R[facility] SD 41.5 35.7 - 48.1 fL [facility] NRBC abs 0.00 0.00 - 0.01 K/cumm CERNER CH Blood 12/14/2024 11:1 2 PM CDT 12/14/2024 11:12 PM CDT Theresa Lamb MD LAB BLOOD ORDERABLES Final R esult Performing Organization Address [facility]/ZIP Co de Phone Number JEFF BRODERICK [address] [place] [address] * POCT glucose (12/14/2024 11:03 PM CDT) Glucose, POC 145 70 - 199 mg/dL POC Performer [id number] JEFF Blood 12/14/2024 11:0 3 PM CDT 12/14/2024 11:03 PM CDT Theresa Lamb MD LAB POCT ORDERABLES - DEVICE Final Result Performing Organization Address City/[facility]/ZIP Co de Phone Number JEFF BRODERICK [address] [address] Department of [place], [place] [id number] * (ABNORMAL) Calcium, ionized, whole blood (12/14/2024 10:53 PM CDT) Pathologist [facility] Ca, ionized, bld 4.48(L) 4.50 - 5.10 mg/dL Blood 12/14/2024 10:5 3 PM CDT 12/14/2024 11:11 PM CDT us Theresa Lamb MD LAB BLOOD ORDERABLES Final R esult Performing Organization Address [facility] Co de Phone Number JEFF BRODERICK [address] [address] [place] [address] * eGFR (12/14/2024 10:53 PM CDT) Pathologist [facility] eGFR >90 >=60 mL/min/1. 73 m2 Comment: Interpretive Data [...] interpretive data was last reviewed 2021. Blood 12/14/2024 10:5 3 PM CDT 12/14/2024 11:16 PM CDT Theresa Lamb MD LAB BLOOD ORDERABLES Final R esult Performing Organization Address City/[facility] Co de Phone Number JEFF BRODERICK [address] [address] [address] * Type and screen (12/14/2024 10:53 PM CDT) Pathologist [facility] Antonio, indirect Negative ABO Rh A Negative [facility] Blood 12/14/2024 10:5 3 PM CDT 12/14/2024 11:16 PM CDT Narrative [facility] - 12/15/2024 12:05 AM CDT Has the patient had Daratumumab or Isatuximab in the past 6 months?->Unknown Kristal Edward BACKEND DEVELOPER LAB BLOOD BANK TEST ORDER BEATRIZ Final Result Performing Organization Address [facility] Co de Phone Number JEFF [address] [place] [address] * Magnesium (12/14/2024 10:53 PM CDT) [facility] Magnesium 2.3 1.4 - 2.5 mg/dL Blood 12/14/2024 10:5 3 PM CDT 12/14/2024 11:11 PM CDT Theresa Lamb MD LAB BLOOD ORDERABLES Final R esult Performing Organization Address [facility] Co de Phone Number JEFF [address] [address] [place] [address] * (ABNORMAL) Basic metabolic panel (12/14/2024 10:53 PM CDT) Sodium 143 135 - 145 mmol/L Potassium, pl 4.2 3.3 - 4.9 mmol/L [facility] CH Chloride 111(H) 97 - 110 mmol/L C[facility] CH CO2 21(L) 22 - 32 mmol/L [facility] CH Anion gap 11 2 - 15 mmol/L [facility] CH BUN 19 6 - 25 mg/dL [facility] Creatinine 0.70(L) 0.80 - 1.30 mg/dL [facility] CH Glucose 156 70 - 199 mg/dL [facility] Comment: Interpretive Data Fasting glucose >/= 126 mg/dl is diagnostic for diabetes. Fasting is defined as no caloric intake for at least 8 hours. Fasting glucose between 100 mg/dl to 125 mg/dl is diagnostic of prediabetes. In a patient with classic symptoms of hyperglycemia or hyperglycemic crisis, a random glucose >/= 200 mg/dl is diagnostic for diabetes. In the absence of unequivocal hyperglycemia, results should be confirmed by repeat testing. The classification and Diagnosis of Diabetes Diabetes Care 2021; 46: S19-S40. Current interpretive data was last revised 2022. Calcium 8.3(L) 8.5 - 10.3 mg/dL [facility] Blood 12/14/2024 10:5 3 PM CDT 12/14/2024 11:11 PM CDT Theresa Lamb MD LAB BLOOD ORDERABLES Final R esult Performing Organization Address City/[facility]/ZIP Co de Phone Number JEFF BRODERICK [address] [address] [place] [address] * POCT glucose (12/14/2024 10:12 PM CDT) Glucose, POC 132 70 - 199 mg/dL POC Performer [id number] [facility] Blood 12/14/2024 10:1 2 PM CDT 12/14/2024 10:12 PM CDT Theresa Lamb MD LAB POCT ORDERABLES - DEVICE Final Result JEFF BRODERICK [address] [address] [place] [address] * Critical Care (12/14/2024 9:57 PM CDT) Narrative Alexis Alicia MD - 12/14/2024 9:57 PM CDT Alexis Alicia MD 12/15/2024 6:26 AM Critical Care Performed by: Heri Tovar NP Authorized by: Heri Tovar NP CRITICAL CARE: Team: JULI Shift: PM Level of Billing: Critical Care My time spent with this patient was 90 minutes: Critical Provider Statement: I have seen and examined the patient on this day of service. I have reviewed and confirmed the history, physical exam, laboratory and radiologic data as documented in the signed ICU note. I have reviewed and discussed my treatment plan with the ICU team and other medical/customer sales consultant staff, making frequent assessments and decisions regarding this patient's complex medical care. Critical Care time was exclusive of time spent performing separately billed procedures, treating other patients, and teaching. This time was in addition to and separate from critical care provided by other practitioners in my group on this day of service. Critical Care was necessary to treat or prevent imminent or life-threatening deterioration of the following conditions: I spent time reviewing and interpreting data from bedside monitors, laboratory results, and imaging, I spent time discussing the management of this critically ill patient with consultants and the medical staff and I spent time documenting in the medical record us Heri Tovar NP IN CLINIC/BEDSIDE ORDER BEATRIZ Final Result * POCT glucose (12/14/2024 9:11 PM CDT) [facility] Signature Glucose, POC 126 70 - 199 mg/dL POC Performer [id number] [facility] Blood 12/14/2024 9:11 PM CDT 12/14/2024 9:11 PM CDT us Theresa Lamb MD LAB POCT ORDERABLES - DEVICE Final Result JEFF [address] [address] [place] [address] * POCT glucose (12/14/2024 8:09 PM CDT) Glucose, POC 124 70 - 199 mg/dL POC Performer [id number] [facility] Blood 12/14/2024 8:09 PM CDT 12/14/2024 8:09 PM CDT Theresa Lamb MD LAB POCT ORDERABLES - DEVICE Final Result Performing Organization Address City/[facility] Co de Phone Number SAMANTHAROGER BRODERICK [address] [address] [place] [address] * POCT glucose (12/14/2024 7:00 PM CDT) Pathologist [facility] Glucose, POC 116 70 - 199 mg/dL POC Performer [id number] [facility] Blood 12/14/2024 7:00 PM CDT 12/14/2024 7:00 PM CDT us Theresa Lamb MD LAB POCT ORDERABLES - DEVICE Final Result Performing Organization Address St. [facility] Co de Phone Number JEFF DAVIE [address] [address] [facility] [place], [place] [id number] * Calcium, ionized, whole blood (12/14/2024 6:10 PM CDT) [facility] Ca, ionized, bld 4.93 4.50 - 5.10 mg/dL Blood 12/14/2024 6:10 PM CDT 12/14/2024 6:14 PM CDT Jose Vega BACKEND DEVELOPER LAB BLOOD ORDERABLES Final Result Performing Organization Address [facility] Co de Phone Number JEFF BRODERICK [address] [address] [facility] [place] [address] * eGFR (12/14/2024 6:10 PM CDT) [facility] eGFR >90 >=60 mL/min/1. 73 m2 Comment: Interpretive Data [...] interpretive data was last reviewed 2021. Blood 12/14/2024 6:10 PM CDT 12/14/2024 6:14 PM CDT Jose Vega NP LAB BLOOD ORDERABLES Final Result Performing Organization Address [facility]/ZIP Co de Phone Number JEFF DAVIE [address] [address] [place] [address] * aPTT (12/14/2024 6:10 PM CDT) aPTT 35 28 - 38 sec Comment: Interpretive Data Heparin therapeutic range: 66.0 - 100.0 seconds. Range based on correlation with therapeutic heparin activity range of 0.3 - 0.7 Units/mL. Current interpretive data was last revised on 2023. Blood 12/14/2024 6:10 PM CDT 12/14/2024 6:16 PM CDT Jose Vega NP LAB [place] [address] [address] [place] [address] * (ABNORMAL) Protime-INR (12/14/2024 6:10 PM CDT) PT 15.8(H) 9.7 - 13.0 sec INR 1.45(H) 0.90 - 1.20 [facility] Comment: Interpretive data Oral anticoagulant therapeutic ranges: Venous thromboembolism prophylaxis or treatment: 2.0-3.0 CARDIOLOGY Standard range: 2.0-3.0 High-intensity range: 2.5-3.5 Refer to indication-specific guidelines for appropriate target ranges for prosthetic heart valve replacement. Current interpretive data was last revised on 2019. Blood 12/14/2024 6:10 PM CDT 12/14/2024 6:16 PM CDT Jose Vega NP LAB BLOOD ORDERABLES Final Result JEFF [address] [address] [place] [address] * (ABNORMAL) CBC without differential (12/14/2024 6:10 PM CDT) Pathologist [facility] WBC 18.46(H) 3.80 - 9.90 K/cumm Hgb 10.7(L) 13.0 - 17.5 g/dL [facility] Hct 31.5(L) 38.9 - 50.3 % [facility] Plt 176 150 - 400 K/cumm [facility] MPV 8.8(L) 9.1 - 12.3 fL [facility] RBC 3.72(L) 4.30 - 5.80 M/cumm [facility] MCV 84.7 81.3 - 96.4 fL [facility] MCH 28.8 27.1 - 33.3 pg [facility] MCHC 34.0 32.3 - 35.7 g/dL [facility] RDW CV 13.2 11.1 - 14.9 % [facility] RDW SD 41.1 35.7 - 48.1 fL [facility] NRBC abs 0.00 0.00 - 0.01 K/cumm [facility] Blood 12/14/2024 6:10 PM CDT 12/14/2024 6:16 PM CDT Jose Vega BACKEND DEVELOPER LAB BLOOD ORDERABLES Final Result Performing Organization Address [facility]/ZIP Co de Phone Number JEFF BRODERICK [address] [address] [facility] [place] [address] * Phosphorus (12/14/2024 6:10 PM CDT) Phosphorus, pl 3.0 2.3 - 4.5 mg/dL Blood 12/14/2024 6:10 PM CDT 12/14/2024 6:14 PM CDT 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 LAB BLOOD ORDERABLES Fin al Result Performing Organization Address [facility] Co de Phone Number JEFF BRODERICK [address] [address] [facility] [place] [address] * Magnesium (12/14/2024 6:10 PM CDT) Magnesium 2.5 1.4 - 2.5 mg/dL Blood 12/14/2024 6:10 PM CDT 12/14/2024 6:14 PM CDT Jose Vega BACKEND DEVELOPER LAB BLOOD ORDERABLES Final Result Performing Organization Address [facility] Co de Phone Number JEFF BRODERICK [address] [address] [place] [address] * (ABNORMAL) Blood gas, arterial (12/14/2024 6:10 PM CDT) pH, Art 7.40 7.35 - 7.45 PCO2, Arterial 33(L) 35 - 45 mmHg [facility] PO2, Arterial 285(H) 83 - 108 mmHg [facility] HCO3 Art (Calculated) 22 20 - 30 mmol/L [facility] BE, art -4 mmol/L [facility] Comment: Interpretive Data No Reference Range Established Current Interpretive Data was last revised on 2017 O2 Sat Art (Measured) 100(H) 90 - 95 % [facility] Blood 12/14/2024 6:10 PM CDT 12/14/2024 6:14 PM CDT Jose Vega BACKEND DEVELOPER LAB BLOOD ORDERABLES Final Result JEFF BRODERICK [address] [address] [place] [address] * (ABNORMAL) Basic metabolic panel (12/14/2024 6:10 PM CDT) [facility] Sodium 142 135 - 145 mmol/L Potassium, pl 4.3 3.3 - 4.9 mmol/L [facility] Chloride 112(H) 97 - 110 mmol/L [facility] CO2 19(L) 22 - 32 mmol/L [facility] Anion gap 11 2 - 15 mmol/L [facility] BUN 19 6 - 25 mg/dL [facility] Creatinine 0.73(L) 0.80 - 1.30 mg/dL [facility] Glucose 143 70 - 199 mg/dL [facility] Comment: Interpretive Data Fasting glucose >/= 126 mg/dl is diagnostic for diabetes. Fasting is defined as no caloric intake for at least 8 hours. Fasting glucose between 100 mg/dl to 125 mg/dl is diagnostic of prediabetes. In a patient with classic symptoms of hyperglycemia or hyperglycemic crisis, a random glucose >/= 200 mg/dl is diagnostic for diabetes. In the absence of unequivocal hyperglycemia, results should be confirmed by repeat testing. The classification and Diagnosis of Diabetes Diabetes Care 2021; 46: S19-S40. Current interpretive data was last revised 2022. Calcium 8.0(L) 8.5 - 10.3 mg/dL [facility] Blood 12/14/2024 6:10 PM CDT 12/14/2024 6:14 PM CDT Jose Vega BACKEND DEVELOPER LAB BLOOD ORDERABLES Final Result Performing Organization Address [facility]/ZIP Co de Phone Number JEFF BRODERICK [address] [address] [place] [address] * XR Chest 1 View (12/14/2024 6:08 PM CDT) Anatomical Region Laterality Modality Body, Chest N/A Computed Radiogr aphy 12/14/2024 6:12 PM CDT Impressions 12/14/2024 6:12 PM CDT Endotracheal tube located 3.8 cm from the salma. Enteric tube is appropriately position. Mediastinal drain and left thoracostomy tube are appropriately positioned. Pulmonary arterial catheter is appropriately positioned. No pneumothorax or pleural effusion. There is mild pulmonary vascular congestion with prominence of interstitial markings in the perihilar region suggestive of interstitial pulmonary edema. Leadless pacer device demonstrated. No acute osseous abnormality. Electronically signed by: Corey Limon II, D.O. Narrative 12/14/2024 6:12 PM CDT EXAMINATION: XR CHEST 1 VIEW DATE: 12/14/2024 6:00 PM INDICATION: Coronary artery bypass graft. COMPARISON: 12/07/2024. Procedure Note Corey Limon II, DO - 12/14/2024 EXAMINATION: XR CHEST 1 VIEW DATE: 12/14/2024 6:00 PM INDICATION: Coronary artery bypass graft. COMPARISON: 12/07/2024. IMPRESSION: Endotracheal tube located 3.8 cm from the salma. Enteric tube is appropriately position. Mediastinal drain and left thoracostomy tube are appropriately positioned. Pulmonary arterial catheter is appropriately positioned. No pneumothorax or pleural effusion. There is mild pulmonary vascular congestion with prominence of interstitial markings in the perihilar region suggestive of interstitial pulmonary edema. Leadless pacer device demonstrated. No acute osseous abnormality. Electronically signed by: Corey Limon II, D.O. us Jose Vega NP IMG XR PROCEDURES Final Res ult * Critical Care (12/14/2024 6:07 PM CDT) Narrative Pee Jin MD - 12/14/2024 6:07 PM CDT Pee Jin MD 12/15/2024 3:34 PM Critical Care Performed by: Fran Mcgrath NP Authorized by: Fran Mcgrath NP CRITICAL CARE: Team: JULI Shift: AM Level of Billing: Critical Care My time spent with this patient was 80 minutes: Critical Provider Statement: I have seen and examined the patient on this day of service. I have reviewed and confirmed the history, physical exam, laboratory and radiologic data as documented in the signed ICU note. I have reviewed and discussed my treatment plan with the ICU team and other medical/customer sales consultant staff, making frequent assessments and decisions regarding this patient's complex medical care. Critical Care time was exclusive of time spent performing separately billed procedures, treating other patients, and teaching. This time was in addition to and separate from critical care provided by other practitioners in my group on this day of service. Critical Care was necessary to treat or prevent imminent or life-threatening deterioration of the following conditions: I spent time reviewing and interpreting data from bedside monitors, laboratory results, and imaging, I spent time discussing the management of this critically ill patient with consultants and the medical staff and I spent time documenting in the medical record us Fran Mcgrath NP IN CLINIC/BEDSIDE ORDERA BLES Final Result * POCT glucose (12/14/2024 5:50 PM CDT) Glucose, POC 133 70 - 199 mg/dL POC Performer [id number] [facility] Blood 12/14/2024 5:50 PM CDT 12/14/2024 5:50 PM CDT us Theresa Lamb MD LAB POCT ORDERABLES - DEVICE Final Result [facility] [address] [address] [place] [address] * (ABNORMAL) POC Blood Gas and Chemistries, Arterial - (12/14/2024 4:28 PM CDT) pH, Art POC 7.41 7.35 - 7.45 pCO2, Art POC 37 35 - 45 mmHg [facility] pO2, Art POC 217(H) 83 - 108 mmHg [facility] Na, POC 139 135 - 145 mmol/L [facility] K POC 3.8 3.3 - 4.9 mmol/L [facility] Comment: Interpretive Data This method is not able to assess for hemolysis, which may falsely increase potassium concentrations. If further testing is needed to evaluate this result, consider in-laboratory plasma potassium. Current Interpretive Data was last revised on 2022. Ionized Ca, POC 5.13(H) 4.50 - 5.10 mg/dL [facility] Glucose, POC 118 70 - 199 mg/dL [facility] Lactate POC 1.6 0.7 - 2.0 mmol/L [facility] O2Hb, Art POC 96.9(H) 90.0 - 95.0 % [facility] SO2 (cecilia) arterial 100(H) 90 - 95 % [facility] Total CO2, Art POC 25 21 - 30 mmol/L [facility] BE, art, POC -1 mmol/L [facility] Hct, POC 29.0(L) 38.9 - 50.3 % [facility] Total Hb, POC 9.6(L) 13.0 - 17.5 g/dL [facility] Blood 12/14/2024 4:28 PM CDT 12/14/2024 4:28 PM CDT Theresa Lamb MD LAB POCT ORDERABLES - DEVICE Final Result Performing Organization Address City/[facility]/ZIP Co de Phone Number JEFF BRODERICK [address] [place] [address] * POC Activated Clotting Time, High Range (12/14/2024 4:26 PM CDT) ACT 96 87 - 138 sec POC Performer [id number] [facility] Blood 12/14/2024 4:26 PM CDT 12/14/2024 4:26 PM CDT Theresa Lamb MD LAB BLOOD ORDERABLES Final R esult SAMANTHAROGER BRODERICK [address] [address] Department [employer] [place], [place] [id number] * (ABNORMAL) POC Activated Clotting Time, High Range (12/14/2024 3:54 PM CDT) ACT 516(H) 87 - 138 sec POC Performer [id number] [facility] Blood 12/14/2024 3:54 PM CDT 12/14/2024 3:54 PM CDT Theresa Lamb MD LAB BLOOD ORDERABLES Final R esult JEFF [address] [address] [place] [address] * (ABNORMAL) POC Blood Gas and Chemistries, Arterial - (12/14/2024 3:40 PM CDT) pH, Art POC 7.38 7.35 - 7.45 pCO2, Art POC 39 35 - 45 mmHg [facility] pO2, Art POC 186(H) 83 - 108 mmHg [facility] Na, POC 138 135 - 145 mmol/L [facility] K POC 4.7 3.3 - 4.9 mmol/L [facility] Comment: Interpretive Data This method is not able to assess for hemolysis, which may falsely increase potassium concentrations. If further testing is needed to evaluate this result, consider in-laboratory plasma potassium. Current Interpretive Data was last revised on 2022. Ionized Ca, POC 4.47(L) 4.50 - 5.10 mg/dL [facility] Glucose, POC 181 70 - 199 mg/dL [facility] Lactate POC 1.8 0.7 - 2.0 mmol/L [facility] O2Hb, Art POC 97.4(H) 90.0 - 95.0 % [facility] SO2 (cecilia) arterial 100(H) 90 - 95 % [facility] Total CO2, Art POC 24 21 - 30 mmol/L [facility] BE, art, POC -2 mmol/L [facility] Hct, POC 28.0(L) 38.9 - 50.3 % [facility] Total Hb, POC 9.3(L) 13.0 - 17.5 g/dL [facility] Blood 12/14/2024 3:40 PM CDT 12/14/2024 3:40 PM CDT Theresa Lamb MD LAB POCT ORDERABLES - DEVICE Final Result Performing Organization Address [facility] Co de Phone Number JEFF BRODERICK [address] [address] [facility] [place] [address] * (ABNORMAL) POC Activated Clotting Time, High Range (12/14/2024 3:38 PM CDT) ACT 583(H) 87 - 138 sec POC Performer [id number] [facility] Blood 12/14/2024 3:38 PM CDT 12/14/2024 3:38 PM CDT Theresa Lamb MD LAB BLOOD ORDERABLES Final R esult Performing Organization Address [facility] Co de Phone Number JEFF BRODERICK [address] [address] [place] [address] * Platelet count (12/14/2024 3:24 PM CDT) Pathologist [facility] Plt 172 150 - 400 K/cumm Blood 12/14/2024 3:24 PM CDT 12/14/2024 3:29 PM CDT Theresa Lamb MD LAB BLOOD ORDERABLES Final R esult Performing Organization Address [facility] de Phone Number JEFF BRODERICK [address] [address] [place] [address] * (ABNORMAL) POC Blood Gas and Chemistries, Arterial - (12/14/2024 3:13 PM CDT) pH, Art POC 7.40 7.35 - 7.45 pCO2, Art POC 39 35 - 45 mmHg [facility] pO2, Art POC 234(H) 83 - 108 mmHg [facility] Na, POC 137 135 - 145 mmol/L [facility] K POC 4.2 3.3 - 4.9 mmol/L [facility] Comment: Interpretive Data This method is not able to assess for hemolysis, which may falsely increase potassium concentrations. If further testing is needed to evaluate this result, consider in-laboratory plasma potassium. Current Interpretive Data was last revised on 2022. Ionized Ca, POC 4.37(L) 4.50 - 5.10 mg/dL [facility] Glucose, POC 174 70 - 199 mg/dL [facility] Lactate POC 1.8 0.7 - 2.0 mmol/L [facility] O2Hb, Art POC 97.7(H) 90.0 - 95.0 % [facility] SO2 (cecilia) arterial 100(H) 90 - 95 % [facility] Total CO2, Art POC 25 21 - 30 mmol/L [facility] BE, art, POC 0 mmol/L [facility] Hct, POC 29.0(L) 38.9 - 50.3 % [facility] Total Hb, POC 9.5(L) 13.0 - 17.5 g/dL [facility] Blood 12/14/2024 3:13 PM CDT 12/14/2024 3:13 PM CDT Theresa Lamb MD LAB POCT ORDERABLES - DEVICE Final Result Performing Organization Address City/[facility]/ZIP Co de Phone Number JEFF BRODERICK [address] [address] [place] [address] * (ABNORMAL) POC Activated Clotting Time, High Range (12/14/2024 3:11 PM CDT) ACT 640(H) 87 - 138 sec POC [facility]former [id number] [facility] Blood 12/14/2024 3:11 PM CDT 12/14/2024 3:11 PM CDT Theresa Lamb MD LAB BLOOD ORDERABLES Final R esult JEFF BRODERICK [address] [address] [place] [address] * (ABNORMAL) POC Activated Clotting Time, High Range (12/14/2024 2:34 PM CDT) ACT 547(H) 87 - 138 sec POC Performer [id number] [facility] Blood 12/14/2024 2:34 PM CDT 12/14/2024 2:34 PM CDT us Theresa Lamb MD LAB BLOOD ORDERABLES Final R esult [address]FF [address] Department [place] [address] * (ABNORMAL) POC Blood Gas and Chemistries, Arterial - (12/14/2024 2:34 PM CDT) pH, Art POC 7.38 7.35 - 7.45 pCO2, Art POC 43 35 - 45 mmHg [facility] pO2, Art POC 238(H) 83 - 108 mmHg [facility] Na, POC 136 135 - 145 mmol/L [facility] K POC 4.6 3.3 - 4.9 mmol/L [facility] Comment: Interpretive Data This method is not able to assess for hemolysis, which may falsely increase potassium concentrations. If further testing is needed to evaluate this result, consider in-laboratory plasma potassium. Current Interpretive Data was last revised on 2022. Ionized Ca, POC 4.46(L) 4.50 - 5.10 mg/dL [facility] Glucose, POC 163 70 - 199 mg/dL [facility] Lactate POC 1.6 0.7 - 2.0 mmol/L [facility] O2Hb, Art POC 97.6(H) 90.0 - 95.0 % [facility] SO2 (cecilia) arterial 100(H) 90 - 95 % [facility] Total CO2, Art POC 27 21 - 30 mmol/L [facility] BE, art, POC 0 mmol/L [facility] Hct, POC 28.0(L) 38.9 - 50.3 % [facility] Total Hb, POC 9.4(L) 13.0 - 17.5 g/dL [facility] Blood 12/14/2024 2:34 PM CDT 12/14/2024 2:34 PM CDT Theresa Lamb MD LAB POCT ORDERABLES - DEVICE Final Result JEFF BRODERICK [address] [address] Department [place] [address] * (ABNORMAL) POC Blood Gas and Chemistries, Arterial - (12/14/2024 1:49 PM CDT) pH, Art POC 7.40 7.35 - 7.45 pCO2, Art POC 42 35 - 45 mmHg [facility] pO2, Art POC 210(H) 83 - 108 mmHg [facility] Na, POC 135 135 - 145 mmol/L [facility] K POC 4.7 3.3 - 4.9 mmol/L [facility] Comment: Interpretive Data This method is not able to assess for hemolysis, which may falsely increase potassium concentrations. If further testing is needed to evaluate this result, consider in-laboratory plasma potassium. Current Interpretive Data was last revised on 2022. Ionized Ca, POC 4.13(L) 4.50 - 5.10 mg/dL [facility] Glucose, POC 125 70 - 199 mg/dL [facility] Lactate POC 0.9 0.7 - 2.0 mmol/L [facility] O2Hb, Art POC 98.1(H) 90.0 - 95.0 % [facility] SO2 (cecilia) arterial 100(H) 90 - 95 % [facility] Total CO2, Art POC 27 21 - 30 mmol/L [facility] BE, art, POC 1 mmol/L [facility] Hct, POC 29.0(L) 38.9 - 50.3 % [facility] Total Hb, POC 9.5(L) 13.0 - 17.5 g/dL [facility] Blood 12/14/2024 1:49 PM CDT 12/14/2024 1:49 PM CDT us Theresa Lamb MD LAB POCT ORDERABLES - DEVICE Final Result JEFF BRODERICK [address] [address] [place] [address] * (ABNORMAL) POC Activated Clotting Time, High Range (12/14/2024 1:48 PM CDT) ACT 738(H) 87 - 138 sec POC Performer [id number] [facility] Blood 12/14/2024 1:48 PM CDT 12/14/2024 1:48 PM CDT Theresa Lamb MD LAB BLOOD ORDERABLES Final R esult Performing Organization Address [facility]/State/ZIP Co de Phone Number JEFF [address] [address] Department [place] [address] * (ABNORMAL) POC Blood Gas and Chemistries, Arterial - (12/14/2024 1:15 PM CDT) pH, Art POC 7.46(H) 7.35 - 7.45 pCO2, Art POC 38 35 - 45 mmHg [facility] pO2, Art POC 332(H) 83 - 108 mmHg [facility] Na, POC 137 135 - 145 mmol/L [facility] K POC 3.5 3.3 - 4.9 mmol/L [facility] Comment: Interpretive Data This method is not able to assess for hemolysis, which may falsely increase potassium concentrations. If further testing is needed to evaluate this result, consider in-laboratory plasma potassium. Current Interpretive Data was last revised on 2022. Ionized Ca, POC 4.52 4.50 - 5.10 mg/dL [facility] Glucose, POC 136 70 - 199 mg/dL [facility] Lactate POC 0.8 0.7 - 2.0 mmol/L [facility] O2Hb, Art POC 95.7(H) 90.0 - 95.0 % [facility] SO2 (cecilia) arterial 100(H) 90 - 95 % [facility] Total CO2, Art POC 28 21 - 30 mmol/L [facility] BE, art, POC 3 mmol/L [facility] Hct, POC 40.0 38.9 - 50.3 % [facility] Total Hb, POC 13.4 13.0 - 17.5 g/dL [facility] Blood 12/14/2024 1:15 PM CDT 12/14/2024 1:15 PM CDT Theresa Lamb MD LAB POCT ORDERABLES - DEVICE Final Result JEFF BRODERICK [address] [address] [place] [address] * (ABNORMAL) POC Activated Clotting Time, High Range (12/14/2024 1:12 PM CDT) ACT 775(H) 87 - 138 sec POC Performer [id number] [facility] Blood 12/14/2024 1:12 PM CDT 12/14/2024 1:12 PM CDT Theresa Lamb MD LAB BLOOD ORDERABLES Final R esult Performing Organization Address [facility]/ZIP Co de Phone Number JEFF BRODERICK [address] [address] [place] [address] * (ABNORMAL) POC Blood Gas and Chemistries, Arterial - (12/14/2024 12:15 PM CDT) pH, Art POC 7.49(H) 7.35 - 7.45 pCO2, Art POC 38 35 - 45 mmHg [facility] pO2, Art POC 313(H) 83 - 108 mmHg [facility] Na, POC 137 135 - 145 mmol/L [facility] K POC 3.5 3.3 - 4.9 mmol/L [facility] Comment: Interpretive Data This method is not able to assess for hemolysis, which may falsely increase potassium concentrations. If further testing is needed to evaluate this result, consider in-laboratory plasma potassium. Current Interpretive Data was last revised on 2022. Ionized Ca, POC 4.52 4.50 - 5.10 mg/dL [facility] Glucose, POC 141 70 - 199 mg/dL [facility] Lactate POC 0.8 0.7 - 2.0 mmol/L [facility] O2Hb, Art POC 97.4(H) 90.0 - 95.0 % [facility] SO2 (cecilia) arterial 100(H) 90 - 95 % [facility] Total CO2, Art POC 30 21 - 30 mmol/L [facility] BE, art, POC 5 mmol/L [facility] Hct, POC 42.0 38.9 - 50.3 % [facility] Total Hb, POC 14.0 13.0 - 17.5 g/dL [facility] Blood 12/14/2024 12:1 5 PM CDT 12/14/2024 12:15 PM CDT us Theresa Lamb MD LAB POCT ORDERABLES - DEVICE Final Result JEFF [address] [address] [place] [address] * GABI (12/14/2024 12:09 PM CDT) Anatomical Region Laterality Modality Other Narrative 12/14/2024 12:09 PM CDT Neeraj Craft MD 12/14/2024 12:10 PM GABI Date/time: 12/14/2024 12:09 PM Staff: Supervising anesthesiologist: Neeraj Craft MD Performed by: Anesthesiologist: Neeraj Crfat MD Preprocedure checklist: patient identified, procedure contraindications assessed and GABI probe inserted into esophagus using lubricating jelly General procedure Information: Reason for procedure/indications: assessment of surgical repair and hemodynamic monitoring Procedure performed at surgeon's request: yes Results discussed with surgeon: yes Images submitted to archive: no Patient location: OR Intubated: yes Bite blocked placed: yes Probe Insertion: easy Complications: no Probe type: adult Modalities: 2D imaging, continuous wave Doppler, pulsed wave Doppler and color Doppler Echocardiographic and doppler measurements: Ventricles: Left ventricle: Cavity size: normal Hypertrophy: No Thrombus: No Global function: mildly decreased LVEF%: 40-50 Right ventricle: Cavity size: normal Hypertrophy: no Thrombus: No Global function: normal RVEF%: normal Interventricular septum: normal Regional function: 1- Basal anteroseptal: hypokinetic 2- Basal anterior: hypokinetic 3- Basal anterolateral: hypokinetic 4- Basal inferolateral: hypokinetic 5- Basal inferior: hypokinetic 6- Basal inferoseptal: hypokinetic 7- Mid anteroseptal: hypokinetic 8- Mid anterior: hypokinetic 9- Mid anterolateral: hypokinetic 10- Mid inferolateral: hypokinetic 11- Mid inferior: hypokinetic 12- Mid inferoseptal: hypokinetic 13- Apical anterior: hypokinetic 14- Apical lateral: hypokinetic 15- Apical inferior: hypokinetic 16- Apical septal: hypokinetic 17- [place]: hypokinetic Valves: Aortic Valve: Annulus: normal Leaflet morphology: normal Leaflet motion: normal Stenosis: none Regurgitation: none Mitral valve: Annulus: normal Leaflet morphology anterior: normal Leaflet morphology posterior: normal Leaflet motion anterior: normal Leaflet motion posterior: normal Stenosis: none Regurgitation: trace Tricuspid valve: Annulus: normal Leaflet morphology: normal Leaflet motion: normal Stenosis: none Regurgitation: mild Aorta: Ascending aorta: Size: normal Dissection: no Plaque thickness(mm): 0-3 Plaque mobile: no Descending aorta: Size: normal Dissection: no Plaque thickness(mm): 0-3 Plaque mobile: no Atria: Right atrium: Size: normal Spontaneous echo contrast: No Thrombus: no Mass: No Left atrium: Size: normal (normal) Spontaneous echo contrast: No Thrombus: no Mass: No Left atrial appendage: normal Interatrial septum: normal Diastolic function and other findings: Diastolic function: normal Pericardium: normal Left pleural effusion: none Right pleural effusion: normal Pulmonary venous flow: normal Attestation Statement: By signing this report the attending anesthesiologist certifies that he or she has personally reviewed and interpreted the echocardiogram and has reviewed and or edited and agrees with the written comments contained within the report. us Neeraj Craft MD ANESTHESIA ORDERABLES Final Resu lt * POC Activated Clotting Time, High Range (12/14/2024 12:06 PM CDT) ACT 101 87 - 138 sec POC Performer [id number] JEFF BRODERICK Blood 12/14/2024 12:0 6 PM CDT 12/14/2024 12:06 PM CDT us Theresa Lamb MD LAB BLOOD ORDERABLES Final R esult [facility] [address] [place] [address] * BW AN SHEATH INTRODUCER PERFORMABLE, PULMONARY ARTERY CATH (12/14/2024 11:59 AM CDT) Narrative Jt Selby AA - 12/14/2024 11:59 AM CDT Jt Selby AA 12/14/2024 12:00 PM Central Venous Line Patient location: OR Indication: central venous access and CVP monitoring Staff: Supervising provider: Neeraj Craft MD Placed by: AA: Jt Selby AA Procedure prep: Patient position: Trendelenburg. PPE: provider hand hygiene, provider hat/mask, sterile gloves, sterile gown, full body drape, sterile probe covers, sterile gel and large sterile drape. Prep solution: chlorhexadine/alcohol was applied to area. Ultrasound Evaluation: Ultrasound was prepped into field. Ultrasound image(s) saved to archive. Central line: Laterality: right Site: internal jugular Catheter type: multi-lumen access catheter (MAC) Catheter size: 9 Fr. Catheter length: 11.5 cm Technique: anatomy identified with surface landmarks, anatomy identified with ultrasound, vein located with finder needle, Seldinger technique, wire threaded easily and wire removed intact Venous verification: pressure transduced and ultrasound confirmation Post insertion: all ports aspirated, all ports flushed easily, line sutured in place and occlusive dressing applied Number of attempts: 1 PA catheter placement: PA catheter type: oximetric PA catheter size: 8 Fr PA catheter laterality: right PA catheter site: internal jugular Placement guided by: pressure tracing changes and verified by GABI PA catheter depth 47 cmNo Assessment: Events: patient tolerated procedure well with no complications Additional comments: Atraumatic ultrasound guided insertion of central line with maximal sterile barrier technique, Ernie [facility] student placed central line under direct supervision us Neeraj Craft MD ANESTHESIA ORDERABLES Final Resu lt * VA AN ELECTIVE ENDOTRACHEAL AIRWAY (12/14/2024 11:51 AM CDT) Narrative Jt Selby AA - 12/14/2024 11:51 AM CDT Jt Selby AA 12/14/2024 11:58 AM Airway Patient location: OR Urgency: elective Date/time: 12/14/2024 11:39 AM Indications for airway management: anesthesia Difficult airway: no Staff: Supervising provider: Neeraj Craft MD Placed by: AA: Jt Selby AA Emergent airway documentation: Risks and benefits discussed: yes Consent obtained: yes Consent given by: patient Airway prep: Preoxygenated: yes Patient position: sniffing Mask difficulty assessment: 2 - vent by mask + OA or adjuvant Spontaneous ventilation during airway: absent Sedation level during airway: GA Final airway details: Final airway type: endotracheal airway Tube type: ETT ETT size: 8.0 mm Cuffed: yes Technique used for successful ETT placement: video laryngoscopy Devices/Methods used in placement: cricoid pressure and stylet Insertion site: oral Blade type: Kiah Video blade type: Glidescope Blade size: 4 Cormack-Lehane (video): grade I - full view of glottis Cuff volume: 10 mL Cuff inflated with: air ETT to lips: 22 cm Placement verified by: auscultation and CO2 detection Airway secured with: silk tape Number of attempts: 1 Additional comments: Becca Bar performed intubation under direct supervision us Neeraj Craft MD ANESTHESIA ORDERABLES Final Resu lt * Arterial Line (12/14/2024 11:49 AM CDT) Narrative Jt Selby AA - 12/14/2024 11:49 AM CDT Jt Selby AA 12/14/2024 12:39 PM Arterial Line Patient location: OR End time: 12/14/2024 12:38 PM Indication: continuous blood pressure monitoring and blood sampling needed Staff: Supervising provider: Neeraj Craft MD Placed by: AA: Dale Thomson AA Procedure prep: Prep solution: chlorhexadine/alcohol Prep: provider hat/mask and sterile gloves Skin infiltrated with lidocaine 1%: yes Arterial line: Catheter size: 20 gauge Catheter length: 1 and 3/4 inch Catheter type: wire-guided catheter Seldinger technique: yes Laterality: right Site: radial artery Line secured: Tegaderm and tape Results: good waveform and good blood return Number of attempts: 1 Assessment: Events: patient tolerated procedure well with no complications Additional comments: Robbi STEVEN-S placed A line under direct supervision Neeraj Craft MD ANESTHESIA ORDERABLES Edited Res ult - Final * Prepare RBC: 4 Units (12/14/2024 9:02 AM CDT) Pathologist [facility] Product code [id number] CERNER CH Unit Number [id number] 8-5 CERNER CH Product Blood Type ANEG CERNER CH Dispense Status RETURNED CERNER CH Product code [id number] Unit Number [id number] 0-N CERNER CH Product Blood Type ANEG CERNER CH Dispense Status RETURNED CERNER CH Product code [id number] CERNER CH Unit Number [id number] 2-Z CERNER CH Product Blood Type ANEG CERNER CH Dispense Status RETURNED CERNER CH Product code [id number] CERNER CH Unit Number [id number] 6-C CERNER CH Product Blood Type ANEG CERNER CH Dispense Status RETURNED CERNER CH Blood 12/14/2024 9:02 AM CDT Narrative CERNER CH - 12/15/2024 1:18 AM CDT Specify Procedure:->CABG Are special requirements needed? (All products are leukoreduced and CMV- safe)- >No Date required:-[id number] LRRBC # of [id number] Reasons:-Hold for procedure (specify procedure)} us Kristal Edward NP BLOOD BANK PRODUCT ORDERA BLES Final Result JE[facility] [address] [place] [address] * POCT glucose (12/14/2024 8:57 AM CDT) [facility] Signature Glucose, POC 170 70 - 199 mg/dL POC Performer [id number] CERNER CH Blood 12/14/2024 8:57 AM CDT 12/14/2024 8:57 AM CDT us Theresa Lamb MD LAB POCT ORDERABLES - DEVICE Final Result JE[facility] BROD[facility] [address] [place] [address] * TRANSTHORACIC ECHO (TTE) COMPLETE W DOPPLER/CF WO CONTRAST (12/08/2024 8:39 AM CDT) Anatomical Region Laterality Modality Ultrasound 12/08/2024 7:56 AM CDT Narrative 12/08/2024 4:37 [place] [address] Echocardiogram Report Patient Name: SHAWN SHULTZ BRIAN : 1950 Study Date: 12/08/2024 7:56:17 AM Gender: M Tech: JELANI Location: OP Ref Provider: THERESA LAMB Height(Cm): 170 BSA: 2.08 Weight(Kg): 91.2 Heart Rate: 59 BP: 139/77 Quality: Good Order Provider: THERESA LAMB PROCEDURES: Echocardiographic Report: Transthoracic echocardiogram with complete 2D, M-Mode, and color Doppler examination. 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 MEASUREMENTS: 2D/MM Value Range Doppler Value Range EF Teich 2D 49.9 percent [ 52.0 - 72.0 ] MERARI Vmax 3.88 cm2 EF Mod BP 63 % [ 52 - 72 ] AV Mean PG 3 mmHg LVIDd 2D 4.38 cm [ 4.20 - 5.80 ] AV Peak Jn 0.92 m/s [ 1.00 - 1.70 ] LVIDs 2D 3.28 cm [ 2.50 - 4.00 ] AV VTI 20.91 cm LVPWd 2D 1.47 cm [ 0.60 - 1.00 ] LVOT Diam 2.43 cm IVSd 2D 1.10 cm [ 0.60 - 1.00 ] LVOT Peak Jn 0.77 m/s [ 0.70 - 1.10 ] LA Dimension 2D 2.93 cm [ 3.00 - 4.00 ] LVOT VTI 18.51 cm LA Dimension MM 3.54 cm [ 3.00 - 4.00 ] SI LVOT 42.2 ml/m2 [ >= 35.0 ] AoR Diam MM 3.67 cm [ 3.10 - 3.70 ] MV E Peak Jn 0.73 m/s [ 0.60 - 1.30 ] ACS MM 2.01 cm [ 1.50 - 2.60 ] MV A Peak Jn 0.92 m/s [ 1.00 - 1.20 ] MV Mean PG 2 mmHg MV PHT 66 msec [ 20 - 100 ] MVA PHT 3.30 cm2 MV Decel Time 328 msec [ 104 - 258 ] PV Peak Jn 0.73 m/s [ 0.40 - 0.80 ] TR Peak Jn 2.66 m/s [ 1.00 - 2.80 ] TR Peak PG 28 mmHg RVSP 33.00 mmHg [ 10.00 - 36.00 ] E` 0.08 m/s E/E` 8.95 2D/MM Value Range Doppler Value Range - FINDINGS: Atrial Septum: Normal atrial septum. Left Ventricle: Normal left ventricular size. Normal left ventricular systolic function with no focal wall motion abnormalities. Impaired diastolic relaxation Grade I. Ejection fraction is measured at 63 %. Global Longitudinal Strain is 15 %. Left Atrium: The left atrium is normal in size. Right Ventricle: Pacemaker noted. Right Atrium: Linear artifact in right atrium suggestive of catheter(s), pacemaker lead(s), or ICD lead(s). Aortic Valve: Normal structure of the aortic valve. Mitral Valve: Normal structure of the mitral valve. Pulmonic Valve: Normal structure of the pulmonic valve. Tricuspid Valve: Normal structure of the tricuspid valve. Normal right ventricular systolic pressure. Mild tricuspid regurgitation. Pericardium: Normal pericardium with no significant pericardial effusion. Aorta: Normal aortic root. IVC: Normal size and normal respiratory collapse consistent with normal right atrial pressure (<5 mmHg). Pulmonary Artery: Normal pulmonary artery size. CONCLUSIONS: Normal left ventricular size. Normal left ventricular systolic function with no focal wall motion abnormalities. Impaired diastolic relaxation Grade I. Ejection fraction is measured at 63 %. Global Longitudinal Strain is 15 %. Pacemaker noted. Linear artifact in right atrium suggestive of catheter(s), pacemaker lead(s), or ICD lead(s). Normal structure of the tricuspid valve. Normal right ventricular systolic pressure. Mild tricuspid regurgitation. Electronically Signed By: Sonu Campbell MD, [facility] 12/08/2024 4:36:50 PM CDT Procedure Note Sonu Campbell MD - 12/08/2024 [place] [address] Echocardiogram Report Patient Name: SHAWN SHULTZ BRIAN : 1950 Study Date: 12/08/2024 7:56:17 AM Gender: M Tech: JELANI Location: OP Ref Provider: THERESA LAMB Height(Cm): 170 BSA: 2.08 Weight(Kg): 91.2 Heart Rate: 59 BP: 139/77 Quality: Good Order Provider: THERESA LAMB PROCEDURES: Echocardiographic Report: Transthoracic echocardiogram with complete 2D, M-Mode, and color Dopplerexamination. INDICATIONS: I25.10 Atherosclerotic heart disease of knik coronary artery withoutangina pectoris. MEASUREMENTS: 2D/MM Value Range DopplerValue Range EF Teich 2D 49.9 percent [ 52.0 - 72.0 ] MERARI Vmax3.88 cm2 EF Mod BP 63 % [ 52 - 72 ] AV Mean PG 3mmHg LVIDd 2D 4.38 cm [ 4.20 - 5.80 ] AV Peak Vel0.92 m/s [ 1.00 - 1.70 ] LVIDs 2D 3.28 cm [ 2.50 - 4.00 ] AV VTI20.91 cm LVPWd 2D 1.47 cm [ 0.60 - 1.00 ] LVOT Diam2.43 cm IVSd 2D 1.10 cm [ 0.60 - 1.00 ] LVOT Peak Vel0.77 m/s [ 0.70 - 1.10 ] LA Dimension 2D 2.93 cm [ 3.00 - 4.00 ] LVOT VTI18.51 cm LA Dimension MM 3.54 cm [ 3.00 - 4.00 ] SI LVOT42.2 ml/m2 [ >= 35.0 ] AoR Diam MM 3.67 cm [ 3.10 - 3.70 ] MV E Peak Vel0.73 m/s [ 0.60 - 1.30 ] ACS MM 2.01 cm [ 1.50 - 2.60 ] MV A Peak Vel0.92 m/s [ 1.00 - 1.20 ] MV Mean PG 2 mmHg MV PHT 66 msec [ 20 - 100 ] MVA PHT 3.30 cm2 MV Decel Time 328 msec [ 104 - 258 ] PV Peak Jn 0.73 m/s [ 0.40 - 0.80 ] TR Peak Jn 2.66 m/s [ 1.00 - 2.80 ] TR Peak PG 28 mmHg RVSP 33.00 mmHg [ 10.00 - 36.00 ] E` 0.08 m/s E/E` 8.95 2D/MM Value Range DopplerValue Range - FINDINGS: Atrial Septum: Normal atrial septum. Left Ventricle: Normal left ventricular size. Normal left ventricular systolic functionwith no focal wall motion abnormalities. Impaired diastolic relaxation Grade I. Ejectionfraction is measured at 63 %. Global Longitudinal Strain is 15 %. Left Atrium: The left atrium is normal in size. Right Ventricle: Pacemaker noted. Right Atrium: Linear artifact in right atrium suggestive of catheter(s), pacemakerlead(s), or ICD lead(s). Aortic Valve: Normal structure of the aortic valve. Mitral Valve: Normal structure of the mitral valve. Pulmonic Valve: Normal structure of the pulmonic valve. Tricuspid Valve: Normal structure of the tricuspid valve. Normal right ventricular systolicpressure. Mild tricuspid regurgitation. Pericardium: Normal pericardium with no significant pericardial effusion. Aorta: Normal aortic root. IVC: Normal size and normal respiratory collapse consistent with normal rightatrial pressure (<5 mmHg). Pulmonary Artery: Normal pulmonary artery size. CONCLUSIONS: Normal left ventricular size. Normal left ventricular systolic functionwith no focal wall motion abnormalities. Impaired diastolic relaxation Grade I. Ejectionfraction is measured at 63 %. Global Longitudinal Strain is 15 %. Pacemaker noted. Linear artifact in right atrium suggestive of catheter(s), pacemakerlead(s), or ICD lead(s). Normal structure of the tricuspid valve. Normal right ventricular systolicpressure. Mild tricuspid regurgitation. Electronically Signed By: Sonu Campbell MD, [facility] 12/08/2024 4:36:50 PM CDT us Theresa Lamb MD CV ECHO PROCEDURES Final Res ult * Troponin T high-sensitivity 2-hour (12/07/2024 1:11 PM CDT) Trop T hs 17 <=22 ng/L Comment: Interpretive Data For further hscTnT resources including the diagnostic algorithm and an aid in interpretation, copy and paste this link: [email or web address] Current Interpretive Data last revised 2020. Trop T hs delta -4 ng/L [facility] Trop T hs interp Insignificant [facility] Blood 12/07/2024 1:11 PM CDT 12/07/2024 1:11 PM CDT us Aric Tabor MD LAB BLOOD ORDERABLES F inal Result JEFF [address] [facility] [place] [address] * Troponin T high-sensitivity series (baseline, 2hr, 4hr, 6hr) (12/07/2024 11:12 AM CDT) Trop T hs 21 <=22 ng/L Comment: Interpretive Data For further hscTnT resources including the diagnostic algorithm and an aid in interpretation, copy and paste this link: [email or web address] Current Interpretive Data last revised 2020. Blood 12/07/2024 11:1 2 AM CDT 12/07/2024 11:12 AM CDT us Waleska Mcneal MD LAB BLOOD ORDERABLES Ed ited Result - Final Performing Organization Address City/[facility]/ZIP Co de Phone Number JEFF BRODERICK [address] Department of Laboratories [place], [place] [id number] * eGFR (12/07/2024 11:12 AM CDT) eGFR >90 >=60 mL/min/1. 73 m2 Comment: Interpretive Data [...] interpretive data was last reviewed 2021. Blood 12/07/2024 11:1 2 AM CDT 12/07/2024 11:12 AM CDT Aric Tabor MD LAB BLOOD ORDERABLES F inal Result Performing Organization Address City/[facility]/ZIP Co de Phone Number JEFF BRODERICK [address] Department [place] [address] * Comprehensive metabolic panel (12/07/2024 11:12 AM CDT) Sodium 139 135 - 145 mmol/L Potassium, pl 3.7 3.3 - 4.9 mmol/L CERNER CH Chloride 100 97 - 110 mmol/L CERNER CH CO2 26 22 - 32 mmol/L CERNER CH Anion gap 13 2 - 15 mmol/L CERNER CH BUN 14 6 - 25 mg/dL CERNER CH Creatinine 0.87 0.80 - 1.30 mg/dL CERNER CH Glucose 174 70 - 199 mg/dL CERNER CH Comment: Interpretive Data Fasting glucose >/= 126 mg/dl is diagnostic for diabetes. Fasting is defined as no caloric intake for at least 8 hours. Fasting glucose between 100 mg/dl to 125 mg/dl is diagnostic of prediabetes. In a patient with classic symptoms of hyperglycemia or hyperglycemic crisis, a random glucose >/= 200 mg/dl is diagnostic for diabetes. In the absence of unequivocal hyperglycemia, results should be confirmed by repeat testing. The classification and Diagnosis of Diabetes Diabetes Care 2021; 46: S19-S40. Current interpretive data was last revised 2022. Calcium 9.6 8.5 - 10.3 mg/dL CERNER CH Bilirubin, total 0.7 0.1 - 1.2 mg/dL CERNER CH Protein, pl 7.0 6.5 - 8.5 g/dL [facility] CH Albumin 4.0 3.5 - 5.0 g/dL [facility]ERNER CH Alk phos 84 40 - 130 Units/L [facility]ER CH ALT 11 7 - 55 Units/L CERNER CH AST 17 10 - 50 Units/L [facility]ERNER CH Blood 12/07/2024 11:1 2 AM CDT 12/07/2024 11:12 AM CDT us Waleska Mcneal MD LAB BLOOD ORDERABLES Fi nal Result [facility] [address] Department [place] [address] * (ABNORMAL) Differential, auto (12/07/2024 11:09 AM CDT) Neutrophil abs 5.43 1.50 - 6.50 K/cumm Imm gran abs 0.04 0.00 - 0.10 K/cumm CERNER [facility] Lymphocyte abs 1.59 0.80 - 3.30 K/cumm [facility]ERNER CH Monocyte abs 0.87(H) 0.20 - 0.80 K/cumm CERNER CH Eosinophil abs 0.13 0.00 - 0.50 K/cumm [facility] CH Basophil abs 0.07 0.00 - 0.10 K/cumm CERNER CH Neutrophil pct 66.7 % [facility] Comment: Interpretive Data Percent cell count reference ranges are not reported, since discordance with absolute values may lead to misinterpretation of CBC data. Current Interpretive Data was last revised on 2017. Imm gran pct 0.5 % [facility] Comment: Interpretive Data Percent cell count reference ranges are not reported, since discordance with absolute values may lead to misinterpretation of CBC data. Current Interpretive Data was last revised on 2017. Lymphocyte pct 19.6 % [facility] Comment: Interpretive Data Percent cell count reference ranges are not reported, since discordance with absolute values may lead to misinterpretation of CBC data. Current Interpretive Data was last revised on 2017. Monocyte pct 10.7 % [facility] Comment: Interpretive Data Percent cell count reference ranges are not reported, since discordance with absolute values may lead to misinterpretation of CBC data. Current Interpretive Data was last revised on 2017. Eosinophil pct 1.6 % [facility] Comment: Interpretive Data Percent cell count reference ranges are not reported, since discordance with absolute values may lead to misinterpretation of CBC data. Current Interpretive Data was last revised on 2017. Basophil pct 0.9 % [facility] Comment: Interpretive Data Percent cell count reference ranges are not reported, since discordance with absolute values may lead to misinterpretation of CBC data. Current Interpretive Data was last revised on 2017. Blood 12/07/2024 11:0 9 AM CDT 12/07/2024 11:09 AM CDT Aric Tabor MD LAB BLOOD ORDERABLES F inal Result [facility] [address] Department [place] [address] * (ABNORMAL) CBC with auto differential (12/07/2024 11:09 AM CDT) WBC 8.13 3.80 - 9.90 K/cumm Hgb 14.1 13.0 - 17.5 g/dL [facility] Hct 42.4 38.9 - 50.3 % [facility] Plt 204 150 - 400 K/cumm CERNER CH MPV 8.6(L) 9.1 - 12.3 fL CERNER RBC 4.96 4.30 - 5.80 M/cumm [facility]ERNER CH MCV 85.5 81.3 - 96.4 fL CERNER MCH 28.4 27.1 - 33.3 pg CERROGER MCHC 33.3 32.3 - 35.7 g/dL CERNER CH RDW CV 13.5 11.1 - 14.9 % CERNER CH RDW SD 41.8 35.7 - 48.1 fL [facility] NRBC abs 0.00 0.00 - 0.01 K/cumm [facility] Venous blood specimen / Unknown 12/07/2024 11:09 AM CDT 12/07/2024 11:09 AM CDT Waleska Mcneal MD LAB BLOOD ORDERABLES [facility] Result JEFF [address] [place] [address] * XR Chest 1 Vw Portable (if patient condition/safety warrant portable) (12/07/2024 10:40 AM CDT) Anatomical Region Laterality Modality Body, Chest N/A Computed Radiogr aphy 12/07/2024 10:4 2 AM CDT Impressions 12/07/2024 10:42 AM CDT Borderline cardiomegaly. Electronically signed by: Zenon Wing M.D. Narrative 12/07/2024 10:42 AM CDT EXAMINATION: XR CHEST 1 VIEW HISTORY: The patient is a 74-year-old male presents with chest pain. Comparison made with the previous study dated 12/04/2024. TECHNIQUE: AP portable view of the chest. FINDINGS: Borderline cardiomegaly. No failure. No active infiltrate. Transvenous pacemaker noted with the electrode tip pointing towards the right apex region. Procedure Note Zenon Wing MD - 12/07/2024 EXAMINATION: XR CHEST 1 VIEW HISTORY: The patient is a 74-year-old male presents with chest pain. Comparison made with the previous study dated 12/04/2024. TECHNIQUE: AP portable view of the chest. FINDINGS: Borderline cardiomegaly. No failure. No active infiltrate. Transvenous pacemaker noted with the electrode tip pointing towards the right apex region. IMPRESSION: Borderline cardiomegaly. Electronically signed by: Zenon Wing M.D. Waleska Mcneal MD IMG XR PROCEDURES Final Result * ECG 12 lead (12/07/2024 10:24 AM CDT) 12/07/2024 10:2 4 AM CDT Narrative [facility] - 12/07/2024 4:21 PM CDT Vent Rate: 66 bpm RR Interval: 896 msec VA Interval: 249 msec QRS Duration: 115 msec QT Interval: 401 msec QTC Interval: 415 msec P-R-T [place]: 35 - -55 - 81 degrees IMPRESSION: SINUS RHYTHM WITH FIRST DEGREE AV BLOCK PATTERN CONSISTENT WITH PULMONARY DISEASE INCOMPLETE RIGHT BUNDLE BRANCH BLOCK [90+ ms QRS DURATION, TERMINAL R IN V1/V2, 40+ ms S IN I/aVL/V4/V5/V6] INFERIOR MYOCARDIAL INFARCTION , PROBABLY OLD [40+ ms Q WAVE AND/OR ST/T ABNORMALITY IN II/aVF] ABNORMAL ECG NO CHANGE FROM PREVIOUS TRACING NOTED Electronically Signed By: Jose Godoy MD Waleska Mcneal MD ECG ORDERABLES Final R esult [facility] * XR Chest PA Lateral 2 View (12/04/2024 10:45 AM CDT) Anatomical Region Laterality Modality Body, Chest N/A Computed Radiogr aphy 12/04/2024 11:0 4 AM CDT Impressions 12/04/2024 11:04 AM CDT No active disease. Electronically signed by: Zenon Wing M.D. Narrative 12/04/2024 11:04 AM CDT EXAMINATION: XR CHEST PA LATERAL 2 VIEWS HISTORY: The patient is a 74-year-old male who presents with coronary artery disease. Comparison made with the previous study dated 05/04/2024. TECHNIQUE: PA and lateral view of the chest. FINDINGS: Lungs clear. Cardiovascular structures unremarkable. Procedure Note Zenon Wing MD - 12/04/2024 EXAMINATION: XR CHEST PA LATERAL 2 VIEWS HISTORY: The patient is a 74-year-old male who presents with coronary artery disease. Comparison made with the previous study dated 05/04/2024. TECHNIQUE: PA and lateral view of the chest. FINDINGS: Lungs clear. Cardiovascular structures unremarkable. IMPRESSION: No active disease. Electronically signed by: Zenon Wing M.D. Theresa Lamb MD IMG XR PROCEDURES Final Resu lt * ECG 12 lead (12/04/2024 10:34 AM CDT) 12/04/2024 10:3 4 AM CDT Narrative [facility] - 12/04/2024 11:16 AM CDT Vent Rate: 69 bpm RR Interval: 863 msec VA Interval: 244 msec QRS Duration: 102 msec QT Interval: 397 msec QTC Interval: 416 msec P-R-T [place]: 94 - 240 - 82 degrees IMPRESSION: SINUS RHYTHM WITH FIRST DEGREE AV BLOCK INDETERMINATE AXIS INCOMPLETE RIGHT BUNDLE BRANCH BLOCK ABNORMAL ECG NO CHANGE FROM PREVIOUS TRACING NOTED Electronically Signed By: Jose Godoy MD Theresa Lamb MD ECG ORDERABLES Final Result [facility] * eGFR (12/04/2024 9:57 AM CDT) eGFR >90 >=60 mL/min/1. 73 m2 Comment: Interpretive Data [...] interpretive data was last reviewed 2021. Blood 12/04/2024 9:57 AM CDT 12/04/2024 10:35 AM CDT us Theresa Lamb MD LAB BLOOD ORDERABLES Final R esult [facility] [address] [place] [address] * (ABNORMAL) Urinalysis reflex to microscopic and culture Urine, clean voided (12/04/2024 9:57 AM CDT) Color, ur Yellow Yellow Clarity, ur Clear Clear [facility] Specific gravity, ur 1.040(H) 1.003 - 1.030 CERNER CH pH, urine 5.0 [facility]ERNER CH Comment: Interpretive Data U rine pH is affected by diet, medications, systemic acid-base disturbances, and renal tubular function. pH may affect urinary stone formation. For example, urine pH below 6.0 may help reduce the tendency for calcium phosphate stones and pH greater than 6.0 may reduce the tendency for uric acid stone formation. Source: [facility] [place] Current Interpretive Data was last revised on 2017 Protein, ur ql Negative Negative [facility] Glucose, ur ql 4+(A) Negative [facility] CH Ketones, ur Negative Negative [facility] CH Bilirubin, ur Negative Negative [facility]ERNER CH Blood, ur Negative Negative [facility] CH Urobilinogen, ur <2.0 <2.0 mg/dL CERNER CH Nitrite, ur Negative Negative [facility]ER CH Leukocyte esterase, ur Negative Negative [facility]ERNER CH UA reflex comment Reflex conditions for microscopic UA and culture not met. CERNER Urine, clean voided 12/04/2024 9:57 AM CDT 12/04/2024 11:42 AM CDT Theresa Lamb MD LAB MICROBIOLOGY - GENERAL O RDERABLES Final Result Performing Organization Address [facility] Co de Phone Number JEFF [address] [address] [facility] [place] [address] * aPTT (12/04/2024 9:57 AM CDT) aPTT 32 28 - 38 sec Comment: Interpretive Data Heparin therapeutic range: 66.0 - 100.0 seconds. Range based on correlation with therapeutic heparin activity range of 0.3 - 0.7 Units/mL. Current interpretive data was last revised on 2023. Blood 12/04/2024 9:57 AM CDT 12/04/2024 10:35 AM CDT Theresa Lamb MD LAB BLOOD ORDERABLES Final R esult Performing Organization Address [facility] de Phone Number [facility] [address] [place] [address] * Protime-INR (12/04/2024 9:57 AM CDT) PT 11.6 9.7 - 13.0 sec INR 1.07 0.90 - 1.20 [facility] Comment: Interpretive data Oral anticoagulant therapeutic ranges: Venous thromboembolism prophylaxis or treatment: 2.0-3.0 CARDIOLOGY Standard range: 2.0-3.0 High-intensity range: 2.5-3.5 Refer to indication-specific guidelines for appropriate target ranges for prosthetic heart valve replacement. Current interpretive data was last revised on 2019. Blood 12/04/2024 9:57 AM CDT 12/04/2024 10:35 AM CDT Theresa Lamb MD LAB BLOOD ORDERABLES Final R esult Performing Organization Address [facility]/State/ZIP Co de Phone Number JEFF BRODERICK [address] [place] [address] * (ABNORMAL) CBC without differential (12/04/2024 9:57 AM CDT) WBC 7.66 3.80 - 9.90 K/cumm Hgb 14.9 13.0 - 17.5 g/dL [facility] Hct 45.6 38.9 - 50.3 % [facility] Plt 203 150 - 400 K/cumm [facility] MPV 8.5(L) 9.1 - 12.3 fL [facility] RBC 5.28 4.30 - 5.80 M/cumm [facility] MCV 86.4 81.3 - 96.4 fL [facility] MCH 28.2 27.1 - 33.3 pg [facility] MCHC 32.7 32.3 - 35.7 g/dL [facility] RDW CV 13.4 11.1 - 14.9 % [facility] RDW SD 42.3 35.7 - 48.1 fL [facility] NRBC abs 0.00 0.00 - 0.01 K/cumm [facility] Blood 12/04/2024 9:57 AM CDT 12/04/2024 10:35 AM CDT Theresa Lamb MD LAB BLOOD ORDERABLES Final R esult JEFF BRODERICK [address] Department of [place], [place] [id number] * Type and screen (12/04/2024 9:57 AM CDT) ABO Rh A Negative Antonio, indirect Negative [facility] Blood 12/04/2024 9:57 AM CDT 12/04/2024 10:35 AM CDT Narrative [facility] - 12/04/2024 11:14 AM CDT Has the patient had Daratumumab or Isatuximab in the past 6 months?->Unknown Theresa Lamb MD LAB BLOOD BANK TEST ORDERABL ES Final Result Performing Organization Address [facility]/ZIP Co de Phone Number JEFF BRODERICK [address] [place] [address] * (ABNORMAL) Basic metabolic panel (12/04/2024 9:57 AM CDT) Sodium 140 135 - 145 mmol/L Potassium, pl 3.8 3.3 - 4.9 mmol/L [facility] Chloride 102 97 - 110 mmol/L [facility] CO2 27 22 - 32 mmol/L [facility] Anion gap 11 2 - 15 mmol/L [facility] BUN 15 6 - 25 mg/dL [facility] Creatinine 0.76(L) 0.80 - 1.30 mg/dL [facility] Glucose 288(H) 70 - 199 mg/dL [facility] Comment: Interpretive Data Fasting glucose >/= 126 mg/dl is diagnostic for diabetes. Fasting is defined as no caloric intake for at least 8 hours. Fasting glucose between 100 mg/dl to 125 mg/dl is diagnostic of prediabetes. In a patient with classic symptoms of hyperglycemia or hyperglycemic crisis, a random glucose >/= 200 mg/dl is diagnostic for diabetes. In the absence of unequivocal hyperglycemia, results should be confirmed by repeat testing. The classification and Diagnosis of Diabetes Diabetes Care 202; 46: S19-S40. Current interpretive data was last revised 2022. Calcium 9.1 8.5 - 10.3 mg/dL [facility] Blood 12/04/2024 9:57 AM CDT 12/04/2024 10:35 AM CDT us Theresa Lamb MD LAB BLOOD ORDERABLES Final R esult Performing Organization Address City/[facility]/ZIP Co de Phone Number JEFF BRODERICK [address] Department [place] [address] * (ABNORMAL) Troponin T high-sensitivity 2-hour (11/17/2024 10:14 PM CDT) Trop T hs 23(H) <=22 ng/L Comment: Interpretive Data For further hscTnT resources including the diagnostic algorithm and an aid in interpretation, copy and paste this link: https://nrl.[employer]ict[employer].org/show/hsTrop Current Interpretive Data last revised 2020. Trop T hs delta 2 ng/L [facility] Trop T hs interp Insignificant [facility] Blood 11/17/2024 10:1 4 PM CDT 11/17/2024 10:25 PM CDT Jeremie Tucker MD LAB BLOOD ORDERABLES Final Result Performing Organization Address [facility] Co de Phone Number JEFF BRODERICK [address] [place] [address] * Troponin T high-sensitivity series (baseline, 2hr, 4hr, 6hr) (11/17/2024 7:14 PM CDT) Trop T hs 21 <=22 ng/L Comment: Interpretive Data For further hscTnT resources including the diagnostic algorithm and an aid in interpretation, copy and paste this link: https://nrl.Pictarine.org/show/hsTrop Current Interpretive Data last revised 2020. Blood 11/17/2024 7:14 PM CDT 11/17/2024 10:06 PM CDT Jeremie Tucker MD LAB BLOOD ORDERABLES Final Result Performing Organization Address [facility] Co de Phone Number JEFF BRODERICK [address] [place] [address] * eGFR (11/17/2024 7:14 PM CDT) eGFR >90 >=60 mL/min/1. 73 m2 Comment: Interpretive Data [...] interpretive data was last reviewed 2021. Blood 11/17/2024 7:14 PM CDT 11/17/2024 7:19 PM CDT us Jeremie Tucker MD LAB BLOOD ORDERABLES Final Result JEFF [address] [place] [address] * (ABNORMAL) Differential, auto (11/17/2024 7:14 PM CDT) Neutrophil abs 8.7(H) 1.5 - 6.5 K/cumm Imm gran abs 0.0 0.0 - 0.1 K/cumm [facility] Lymphocyte abs 2.2 0.8 - 3.3 K/cumm [facility] Monocyte abs 1.2(H) 0.2 - 0.8 K/cumm [facility] Eosinophil abs 0.2 0.0 - 0.5 K/cumm [facility] Basophil abs 0.1 0.0 - 0.1 K/cumm [facility] Neutrophil pct 70.6 % [facility] Comment: Interpretive Data Percent cell count reference ranges are not reported, since discordance with absolute values may lead to misinterpretation of CBC data. Current Interpretive Data was last revised on 2017. Imm gran pct 0.3 % JE[facility] Comment: Interpretive Data Percent cell count reference ranges are not reported, since discordance with absolute values may lead to misinterpretation of CBC data. Current Interpretive Data was last revised on 2017. Lymphocyte pct 17.8 % [facility] Comment: Interpretive Data Percent cell count reference ranges are not reported, since discordance with absolute values may lead to misinterpretation of CBC data. Current Interpretive Data was last revised on 2017. Monocyte pct 9.4 % [facility] Comment: Interpretive Data Percent cell count reference ranges are not reported, since discordance with absolute values may lead to misinterpretation of CBC data. Current Interpretive Data was last revised on 2017. Eosinophil pct 1.3 % [facility] Comment: Interpretive Data Percent cell count reference ranges are not reported, since discordance with absolute values may lead to misinterpretation of CBC data. Current Interpretive Data was last revised on 2017. Basophil pct 0.6 % [facility] Comment: Interpretive Data Percent cell count reference ranges are not reported, since discordance with absolute values may lead to misinterpretation of CBC data. Current Interpretive Data was last revised on 2017. Blood 11/17/2024 7:14 PM CDT 11/17/2024 7:19 PM CDT us Jeremie Tucker MD LAB BLOOD ORDERABLES Final Result Performing Organization Address City/State/[facility] de Phone Number [facility] [address] [address] Department [place] [address] * Respiratory pathogen panel Nasopharyngeal (11/17/2024 7:14 PM CDT) Pathologist [facility] Influenza A RNA Not Detected Not Detected Influenza B RNA Not Detected Not Detected [facility] RSV RNA Not Detected Not Detected [facility] COVID-19 RNA Not Detected Not Detected [facility] Coronavirus 229E RNA Not Detected Not Detected [facility] Coronavirus HKU1 RNA Not Detected Not Detected [facility] Coronavirus NL63 RNA Not Detected Not Detected [facility] Coronavirus OC43 RNA Not Detected Not Detected [facility] Adenovirus DNA Not Detected Not Detected [facility] Metapneumovirus RNA Not Detected Not Detected [facility] Rhinovirus/Enterov irus RNA Not Detected Not Detected [facility] Parainfluenza 1 RNA Not Detected Not Detected [facility] Parainfluenza 2 RNA Not Detected Not Detected [facility] Parainfluenza 3 RNA Not Detected Not Detected [facility] Parainfluenza 4 RNA Not Detected Not Detected [facility] B. pertussis DNA Not Detected Not Detected [facility] B. parapertussis DNA Not Detected Not Detected [facility] C. pneumoniae DNA Not Detected Not Detected [facility] M. pneumoniae DNA Not Detected Not Detected JE[facility] BRODERICK Comment: Interpretive Data The [employer] FilmArray Respiratory Panel (RP2.1) assay is a multiplexed real-time PCR based nucleic acid test capable of simultaneous qualitative detection and identification of multiple respiratory viral and bacterial nucleic acids, including SARS Coronavirus 2 (the causative agent of COVID-19). The following bacteria, viruses and virus subtypes can be identified using the FilmArray RP2.1 assay: Bordetella pertussis, Bordetella parapertussis, Chlamydia pneumoniae, Mycoplasma pneumoniae, Adenovirus, SARS Coronavirus 2, seasonal coronaviruses (Coronavirus HKU1, Coronavirus NL63, Coronavirus 229E, and Coronavirus OC43), Influenza A, Influenza A subtype H1, Influenza A subtype H3, Influenza A subtype 2009 H1, Influenza B, Metapneumovirus, Parainfluenza 1, Parainfluenza 2, Parainfluenza 3, Parainfluenza 4, RSV, Rhinovirus/Enterovirus. Due to the genetic similarity between human Rhinovirus and Enterovirus, the FilmArray RP2.1 assay cannot reliably differentiate them. Coronavirus OC43 may cross-react with some isolates of Coronavirus HKU1. A dual positive result may be due to cross-reactivity or may indicate a co- infection. The detection and identification of specific viral and bacterial nucleic acids from individuals exhibiting signs and symptoms of a respiratory infection aids in the diagnosis of respiratory infection if used in conjunction with other clinical and epidemiological information. The results of this test should not be used as the sole basis for diagnosis, treatment, or other management decisions. Negative results in the setting of a respiratory illness may be due to infection with pathogens that are not detected by this test. Positive results do not rule out infection/co-infection with other organisms. The agent(s) detected by the FilmArray RP2.1 may not be the definite cause of disease. Additional testing (lab, imaging, etc.) may be necessary when evaluating a patient with possible respiratory tract infection. The FilmArray RP2.1 assay has FDA clearance for testing of BACKEND DEVELOPER swabs. The performance characteristics of this assay have been determined by [facility]. Current interpretive data was last revised on 2021. Nasopharyngeal 11/17/2024 7: 14 PM CDT 11/17/2024 7:18 PM CDT Narrative [facility] - 11/17/2024 8:16 PM CDT Is the Patient experiencing symptoms consistent with COVID?->Yes Surveillance testing for transplant patient?->No Jeremie Tucker MD LAB MICROBIOLOGY - GENERAL ORDERABLES Final Result Performing Organization Address City/[facility]/ZIP Co de Phone Number JEFF BRODERICK [address] [place] [address] CH * (ABNORMAL) CBC with auto differential (11/17/2024 7:14 PM CDT) WBC 12.3(H) 3.8 - 9.9 K/cumm Hgb 15.5 13.0 - 17.5 g/dL [facility] Hct 46.6 38.9 - 50.3 % [facility] Plt 234 150 - 400 K/cumm [facility] MPV 8.7(L) 9.1 - 12.3 fL [facility] RBC 5.40 4.30 - 5.80 M/cumm [facility] MCV 86.3 81.3 - 96.4 fL [facility] MCH 28.7 27.1 - 33.3 pg [facility] MCHC 33.3 32.3 - 35.7 g/dL [facility] RDW CV 13.6 11.1 - 14.9 % [facility] RDW SD 42.5 35.7 - 48.1 fL [facility] NRBC abs 0.00 0.00 - 0.01 K/cumm [facility] Blood Venous blood specimen / Unknown 11/17/2024 7:14 PM CDT 11/17/2024 7:19 PM CDT Jeremie Tucker MD LAB BLOOD ORDERABLES Final Result Performing Organization Address City/[facility]/ZIP Co de Phone Number JEFF BRODERICK [address] [place] [address] * (ABNORMAL) Comprehensive metabolic panel (11/17/2024 7:14 PM CDT) Sodium 141 135 - 145 mmol/L Potassium, pl 3.4 3.3 - 4.9 mmol/L [facility] Chloride 104 97 - 110 mmol/L [facility] CO2 23 22 - 32 mmol/L [facility] Anion gap 14 2 - 15 mmol/L [facility] BUN 15 6 - 25 mg/dL [facility] Creatinine 0.76(L) 0.80 - 1.30 mg/dL [facility] Glucose 139 70 - 199 mg/dL [facility] Comment: Interpretive Data Fasting glucose >/= 126 mg/dl is diagnostic for diabetes. Fasting is defined as no caloric intake for at least 8 hours. Fasting glucose between 100 mg/dl to 125 mg/dl is diagnostic of prediabetes. In a patient with classic symptoms of hyperglycemia or hyperglycemic crisis, a random glucose >/= 200 mg/dl is diagnostic for diabetes. In the absence of unequivocal hyperglycemia, results should be confirmed by repeat testing. The classification and Diagnosis of Diabetes Diabetes Care 2021; 46: S19-S40. Current interpretive data was last revised 2022. Calcium 9.9 8.5 - 10.3 mg/dL [facility] Bilirubin, total 0.5 0.1 - 1.2 mg/dL [facility] Protein, pl 7.5 6.5 - 8.5 g/dL [facility] Albumin 4.2 3.5 - 5.0 g/dL [facility] Alk phos 90 40 - 130 Units/L [facility] ALT 13 7 - 55 Units/L [facility] AST 17 10 - 50 Units/L [facility] Blood Venous blood specimen / Unknown 11/17/2024 7:14 PM CDT 11/17/2024 7:19 PM CDT us Jeremie Tucker MD LAB BLOOD ORDERABLES Final Result [facility] [address] [address] [place] [address] * ECG 12 lead (11/17/2024 7:13 PM CDT) 11/17/2024 7:13 PM CDT Narrative [facility] - 11/17/2024 9:43 PM CDT Vent Rate: 83 bpm RR Interval: 715 msec VA Interval: 217 msec QRS Duration: 108 msec QT Interval: 376 msec QTC Interval: 416 msec P-R-T [place]: 30 - -79 - 67 degrees IMPRESSION: SINUS RHYTHM WITH FIRST DEGREE AV BLOCK INDETERMINATE AXIS INFERIOR MYOCARDIAL INFARCTION , PROBABLY OLD [40+ ms Q WAVE AND/OR ST/T ABNORMALITY IN II/aVF] ABNORMAL ECG NO CHANGE FROM PREVIOUS TRACING NOTED Electronically Signed By: Jose Godoy MD Jeremie Tucker MD ECG ORDERABLES Final Resu lt Performing Organization Address [facility] Co de Phone Number [employer] [facility] * (ABNORMAL) Albumin Creatinine Ratio, Urine (04/01/2024 11:09 AM CDT) Albumin Ur 19.5 mg/L Comment: Interpretive Data No reference range established. Current interpretive data was last revised 2019. Creatinine Ur 60.3 mg/dL [facility] Comment: Interpretive Data No reference range established. Current interpretive data was last revised 2019. Albumin Creatinine Ratio, Ur 32(H) 1 - 29 mg/g [facility] Urine 04/01/2024 11:0 9 AM CDT 04/01/2024 5:29 PM CDT Alireza Clark MD LAB URINE ORDERABLES Final Resul t Performing Organization Address [facility] de Phone Number [facility] [address] [address] [place] [address] * (ABNORMAL) Lipid panel (04/01/2024 11:09 AM [...] LAB BLOOD ORDERABLES Final Resul t JEFF DAVIE [address] [address] [place] [address] from Last 3 Months or Most Recently Relevant to Health Maintenance Insurance MEDICARE [employer] [facility] MEDICARE ADVANTAGE [facility] MEDICARE ADVANTAGE Advance Directives For more information, please contact: [phone] * Full Code (Latest Code Status on File) Date Activated Date Inactivated Comments 01/07/2025 1:12 PM 01/11/2025 11:13 PM * Full Code Date Activated Date Inactivated Comments 12/14/2024 5:54 PM 12/21/2024 8:28 PM * Full Code Date Activated Date Inactivated Comments 06/18/2024 3:52 PM 06/19/2024 10:57 PM * Full Code Date Activated Date Inactivated Comments 02/11/2024 3:49 PM 02/12/2024 6:22 PM Care Teams Facilities And Grounds Director Relationship Specialty Start Date End Date Maryann Jiménez DO PCP - General Family Medicine 07/03/22 Jose David Betancourt MD [address] [place] [address] Consulting Physician Urology 06/19/24 Theresa Lamb MD [address] [place] [address] Surgeon Cardiothoracic Surgery 12/21/24 Jatinder Jones MD [address] [place] [address] Consulting Physician Cardiology 12/21/24 Miscellaneous, Not In File 12/21/24
--- NOTE | 2025-02-16 13:34 | PC.NURSE ---
Pt. at x-ray
--- OUTSIDE RECORDS SUMMARY | 2025-02-16 13:34 | XMS_ITS | Encounter Summary ---
Author Organization [facility] Address [address] [place] [address] Care Team Providers Care Chucking And Boring Machine Operator Name Role Phone Syl Mcadams MD Primary Care Provider [phone] Maryann Jiménez DO Primary Care Provider [phone] Reason for Visit * Reason Onset Date Comments MEDICATION REFILL 08/21/2018 Encounter Details Date Type Department Care Team (Late st Contact Info) Description 08/21/2018 Refill [facility] [address] [place] [address] April Mendoza MD [address] [place] [address] MEDICATION REFILL Social History Tobacco Use Types Packs/Day Years Used Date Smoking Tobacco: Passive Smo ke Exposure - Never Smoker Smokeless Tobacco: Never Sex and Gender Information Value Date Recorded Sex Assigned at Not on file Legal 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
--- OUTSIDE RECORDS SUMMARY | 2025-02-16 13:34 | XMS_ITS | Clinical Summary ---
Author Organization [facility] Address [address] [place] [address] Care Team Providers Care Creative Writing Teacher Name Role Phone Maryann Jiménez DO Primary Care Provider [phone] Source Comments [facility],non-owned Affiliates and Associated Physician Practices is amultiple site organization consisting of ambulatory clinics and hospital sitesin [place], [place], [place] and [place]. This disclosure is being madepursuant to the Care Everywhere program and may not contain all information available regarding this patient. Last updated 18.[facility] Allergies Active Allergy Reactions Criticality Noted Date Comments Atropine Other Medium 01/02/2010 Bradycardia Codeine Nausea and/or Vomiting Medium 04/12/2009 Enalapril Other Low Cough Medications * Be aware that medications may not be up to date on this document. Alwaysverify current medications with the patient. finasteride (PROSCAR) 5 MG tablet Take 5 [...] MEQ tablet Take 10 mEq by mouth 7 Active omeprazole (PRILOSEC) 40 MG capsule Take 40 mg by mouth 7 Active simvastatin (ZOCOR) 20 MG tablet Take 20 mg by mouth Active SITagliptin (JANUVIA) 100 MG tablet Take 100 mg by mouth 7 Active empagliflozin (JARDIANCE) 25 MG tablet Take 25 mg by mouth 7 Active ascorbic acid (VITAMIN C) 125 MG TABS half tablet Take by mouth once daily Active VITAMIN E PO Take 1 tablet by mouth once daily Active metoprolol succinate XL 24hr (TOPROL XL) 25 MG tablet Take 12.5 mg by mouth once daily Active Alcohol Swabs (EASY TOUCH ALCOHOL PREP MEDIUM) 70 % 9 Active telmisartan-hy droCHLOROthiaz susan (MICARDIS HCT) 40-12.5 MG tablet Take 1 tablet by mouth once daily 1 Active amLODIPine (NORVASC) 2.5 MG tablet Take 2.5 mg by mouth once daily 1 Active sildenafil (VIAGRA) 25 MG tablet Take 1 tablet by mouth once daily as needed 0 Active vitamin D, cholecalcifero l, 50 MCG (1999 UT) tablet Take 2,000 Units by mouth once daily Active ENBREL SURECLICK 50 MG/ML auto-injector penIndications :Psoriatic arthritis (HCC) Inject 50 (fifty) mg subcutaneously every 7 days 12 Pen 1 Active Active Problems Problem Noted Date Diagnosed Date Psoriatic arthritis 02/23/2018 DISH (diffuse idiopathic skeletal hyperostosis) 02/23/2018 HTN (hypertension) 06/13/2009 Diabetes mellitus 06/13/2009 Pacemaker 04/12/2009 Overview (04/12/2009): ND [employer] Immunizations Immunization Administration Dates Next Due INFLUENZA VACCINE, TRIV. 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 Gender Identity Not on file Sexual Orientation Not on file Last Filed Vital Signs Vital Sign Reading Time Taken Comments Blood Pressure 116/62 12/20/2020 11:23 AM CDT Pulse 72 12/20/2020 11:23 AM CDT Temperature 36.3 C (97.3 F) 12/20/2020 11:23 AM CDT Respiratory Rate 16 05/14/2017 2:25 PM CDT Oxygen Saturation 95% 09/28/2014 12:31 PM SENIOR PRICING ANALYST Inhaled Oxygen Concentration - - Weight 90.7 kg (200 lb) 12/20/2020 11:23 AM CDT Height 170.2 cm (5' 7) 12/20/2020 11:23 AM CDT Body Mass Index 31.32 12/20/2020 11:23 AM CDT Plan of Treatment Health Maintenance Due Date Last Done Comments COLOGUARD (AGES 45-75) - COLON CA SCREENING 1950 COLON MONITORING 1950 COLONOSCOPY - COLON CA SCREENING 1950 CT COLONOGRAPHY - COLON CA SCREENING 1950 Colorectal Cancer Screening 1950 FIT - COLON CA SCREENING 1950 FLEX SIG - COLON CA SCREENING 1950 HEPATITIS C SCREENING 08/01/1968 DTAP/TDAP/TD VACCINES (1 - Tdap) 1969 ZOSTER VACCINE (1 of 2) 2000 Respiratory Syncytial Virus (RSV) Vaccine Pt: or over 60 yrs (1 - Risk 60-74 years 1-dose series) 2010 PNEUMOCOCCAL VACCINE 50+ (2 of 2 - PPSV23, PCV20, or PCV21) 07/20/2016 05/25/2016 DIABETES RETINOPATHY SCREENING 01/07/2018 DIABETES-FOOT EXAM WITH MONOFILAMENT 01/07/2018 DIABETES-HGB A1C 01/07/2018 DIABETES-SERUM CREATININE 12/21/20212020, 04/19/2020, 12/16/2018, Additional history exists COVID-19 VACCINE ( - season) 2024 DEPRESSION SCREENING 09/02/2024 DIABETES - URINE PROTEIN SCREENING 09/02/2024 MEDICARE AWV CALENDAR YEAR 2024 INFLUENZA VACCINE (Season Ended) 2025 05/25/2016 HEPATITIS B VACCINE Aged Out No longe [...] Routine 12/21/2020 11:20 AM CDT Psoriatic arthritis Encounter for long-term (current) use of high-risk [...] approximately 13% higher for people identified as -Dutch. eGFR by MDRD 82 > OR = [...] 46 U/L [facility] Comment: Test Performed at: [facility] [address] [place] [address] IVY DERAS DO,MPH Blood BLOOD SPECIMEN / Unknown 12/21/2020 11:20 AM CDT 12/21/2020 11:21 AM CDT Nico Jones MD LAB - CHEMISTRY ORDERABLES F inal Result [facility] [id number] [place] [address] from Last 3 Months or Most Recently Relevant to Health Maintenance Insurance [employer] MEDICARE [facility] MANAGED MEDICARE ADV MEDICARE [facility] MANAGED MEDICARE ADV [facility] MANAGED MEDICARE ADV [facility] MANAGED MEDICARE ADV Care Teams Creative Writing Teacher Relationship Specialty Start Date End Date Maryann Jiménez DO [address] [place] [address] PCP - General 09/07/22
--- OUTSIDE RECORDS SUMMARY | 2025-02-16 13:34 | XMS_ITS | Clinical Summary ---
Author Organization [facility] Address [address] [place] [address] Care Team Providers Care Quality Assurance Associate Name Role Phone Maryann Jiménez DO Primary Care Provider + Jose David Betancourt MD Unavailable [phone] Theresa Lamb MD Unavailable [phone] Jatinder Jones MD Unavailable [phone] Miscellaneous, Not In File Unavailable Unava ilable Allergies Active Allergy Reactions Criticality Noted Date [...] Gen Pen Needle 32 gauge x 5/32 needleIndication s:diabetes 01/15/20 24 Active aspirin 81 mg enteric coated tabletIndication s:Myocardial Reinfarction Prevention Take 1 tablet by mouth every morning Active finasteride (PROSCAR) 5 mg tabletIndication s:benign prostatic hyperplasia with lower urinary tract sx Take 1 tablet by mouth every morning Active levothyroxine (SYNTHROID) 100 mcg tabletIndication s:hypothyroidism Take 1 tablet by mouth vegetable cook before breakfast Active metFORMIN (GLUCOPHAGE) 1,000 mg [...] hyperglycemia, with long-term current use of insulin ([facility]) Dx code E11.65. T2DM with hyperglycemia with assistant terminal manager current use of insulin. 3 each 3 02/12/20 25 Active insulin lispro (HumaLOG, ADMELOG) 100 unit/mL pen for injectionIndicat ions:type 2 diabetes mellitus Inject 6-12 Units under the skin 4 (four) times a day 025 Discontin ued(Reord er) Active Problems Problem Noted Date Diagnosed Date Heart block 01/08/2025 Cardiac tamponade 01/07/2025 Coronary artery disease (CAD) excluded Sensorineural hearing loss (SNHL) 12/03/2024 Coronary artery [...] are complete. Avoid live-vaccines unless reviewed with sweatband flanger first. Overexertion from strenuous movement or load, [...] 08/07/2017 Assessment & Plan (08/17/2024 11:11 AM SEWER HEAD): Chronic, worsening. 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 Arthralgia of shoulder 09/04/2013 Chronic purulent otitis media 07/14/2013 Overview (12/07/2016): CHR SUP OTITIS MEDIA NOS Neural hearing loss, bilateral 07/14/2013 Overview (12/08/2016): Neural Hearing Loss Bilat Brachial neuritis 02/03/2013 Cervicalgia 02/02/2013 Lumbago 01/30/2013 Resolved Problems Problem Noted Date Diagnosed Date Resolved Date Well controlled type 2 diabetes mellitus 12/09/2022 12/09/2024 Disease of thyroid gland 08/07/201705/2025 Encounters Date Type Department Care Team Description 02/12/2025 Telephone [facility] Cardiology [address] [place] [address] Jatinder Jones MD 02/11/2025 Telephone [facility] [address] [place] [address] [address] [place] [address] Alireza Clark MD Med Refill 01/27/2025 10:30 AM CDT Home Care Visit [address] [place] [address] Lori Puckett SN OASIS DISCHARGE 01/26/2025 1:15 PM CDT Office Visit [facility] [address] [place] [address] [address] [place] [address] Theresa Lamb MD Coronary artery disease (CAD) excluded (Primary Dx) 01/25/2025 [facility] Post Discharge Follow up phone call [facility] [id number] [place] [address] Ariella Larsen 01/21/2025 10:30 AM CDT Home Care Visit [address] [place] [address] Lori Puckett SN HOME VISIT 01/18/2025 9:30 AM CDT Home Care Visit [address] [place] [address] Lori Puckett SN HOME VISIT 01/18/2025 Telephone [facility] [id number] [place] [address] [address] [place] [address] Alireza Clark MD 01/14/2025 Plan of Care Documentation [address] [place] [address] 01/13/2025 12:30 PM CDT Home Care Visit [address] [place] [address] Kaitlynn Elizalde, TOÑO SN OASIS RESUMPTION OF CARE 01/12/2025 Orders Only [facility] Cardiology [address] [facility] [address], [place] [address] Jatinder Jones MD Presence of cardiac pacemaker (Primary Dx); SSS (sick sinus syndrome) (HCC); Bradycardia 01/12/2025 Orders Only [facility] [address] [facility] [address] [place] [phone] Jose Vega NP 01/08/2025 3:36 PM CDT Anesthesia Event [facility] Operating Room [id number] [place] [address] Karen Tavarez DO Vuong, Peter Thuan, MD 01/08/2025 3:20 PM CDT - 01/08/2025 5:20 PM CDT Surgery [facility] Operating Room [address] [place] [address] Theresa Lamb MD REPLACE PACEMAKER GENERATOR FROM ABDOMEN WITH FLUOROSCOPY 01/07/2025 1:01 PM CDT - 01/11/2025 7:12 PM CDT Hospital Encounter [address] [address] Sindhu Whittington MD Munfakh, Nabil A., MD Brother, Michele, MD Rivera, Samantha, MD Cardiac tamponade (Primary Dx); Cervical myofascial pain syndrome; Syncope and collapse; Frailty syndrome in geriatric patient Discharge Disposition: Discharge to home, home health skilled care 01/07/2025 12:18 PM CDT - 01/07/2025 11:59 PM CDT Hospital Encounter [facility] Emergency, Room R Discharge Disposition: Discharge to home or self care 01/07/2025 8:28 AM CDT - 01/07/2025 12:14 PM CDT Emergency [facility] Emergency Department [address] [place] [address] Jt Mejia MD Lo Bianco, Salvador, MD Cardiac tamponade (Primary Dx); Bradycardia; Heart block Discharge Disposition: Discharge to a short term hospital for IP 01/07/2025 8:15 AM CDT - 01/07/2025 11:59 PM CDT Hospital Encounter [facility] Emergency, Room R Discharge Disposition: Discharge to home or self care 01/07/2025 Home Care Visit [address] [address] [address] [place] [address] Lori Puckett SN OASIS TRANSFER W/OUT DC 01/05/2025 10:00 AM CDT Home Care Visit [address] [address] [place] [address] Lori Puckett SN HOME VISIT 01/05/2025 [facility] Post Discharge Follow up phone call [address] [address] Ariella Larsen 01/05/2025 [facility] Post Discharge Follow up phone call [address] [address] Ariella Larsen 01/01/2025 2:45 PM CDT - 01/01/2025 11:59 PM CDT Hospital Encounter [facility] Radiology - Outpatient Center at [address] [address] Acute cough Discharge Disposition: Discharge to home or self care 01/01/2025 2:15 PM CDT Office Visit [facility] at [address] [phone] Nayely Sharp NP Acute cough (Primary Dx) 01/01/2025 9:30 AM CDT Home Care Visit [address] [address] [address] [place] [address] Kristal Allen RN SN HOME VISIT 01/01/2025 Results Follow-Up [facility] at [address] [place] [address] Nayely Sharp NP XR Chest Pa Lateral 2 Views 01/01/2025 Documentation [facility] [address] [place] [address] [address] [place] [address] Jose Vega NP 12/31/2024 Orders Only [facility] [address] [place] [address] [address] [place] [address] Jose Vega NP 12/29/2024 11:30 AM CDT Home Care Visit [address] [place] [address] Kristal Allen, TOÑO SN HOME VISIT 12/29/2024 Home Care Visit [address] [place] [address] Lori Puckett CARE CONFERENCE 12/28/2024 12:00 PM CDT - 12/28/2024 11:59 PM CDT Hospital Encounter [facility] Diagnostic Imaging [address] [place] [address] S/P CABG (coronary artery bypass graft) Discharge Disposition: Discharge to home or self care 12/28/2024 Documentation [facility] [address] [facility] [address] [place] [address] Jose Vega NP 12/28/2024 Orders Only [facility] [address] [facility] [address] [place] [address] Jose Vega NP S/P CABG (coronary artery bypass graft) (Primary Dx) 12/26/2024 11:57 AM CDT - 12/26/2024 11:59 PM CDT Hospital Encounter [id number] Discharge Disposition: Discharge to home or self care 12/26/2024 11:30 AM CDT Home Care Visit [address] [place] [address] Lori Puckett SN HOME VISIT 12/25/2024 Home Care Visit [address] [place] [address] Yudith Ayers RN SN TRIAGE ENCOUNTER 12/23/2024 9:30 AM CDT Home Care Visit [address] [place] [address] Tia Paz, TOÑO SN OASIS START OF CARE 12/23/2024 Plan of Care Documentation [address] [place] [address] 12/21/2024 Telephone [facility] Care Services [address] [place] [address] Tushar Meeks MA 12/14/2024 1:00 PM CDT - 12/14/2024 6:30 PM CDT Surgery [facility] Operating Room [address] [place] [address] Theresa Lamb MD CORONARY ARTERY BYPASS GRAFT X 4 - INTERNAL MAMMARY/RADIAL ARTERY/SAPHENOUS VEIN GRAFT - LEG 12/14/2024 11:24 AM CDT Anesthesia Event [facility] Operating Room [address] [place] [address] Neeraj rCaft MD Barnhart, Lynlee Jo, NP 12/14/2024 8:40 AM CDT - 12/21/2024 4:28 PM CDT Hospital Encounter [address] [address] Theresa Lamb MD 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 (Primary Dx); 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; Coronary arteriosclerosis in quileute artery Discharge Disposition: Discharge to home, home health skilled care 12/08/2024 7:37 AM CDT - 12/08/2024 11:59 PM CDT Hospital Encounter [facility] Non-invasive Cardiac Diagnostic Testing [address] [place] [address] Coronary arteriosclerosis in quileute artery Discharge Disposition: Discharge to home or self care 12/07/2024 10:25 AM CDT - 12/07/2024 4:43 PM CDT Emergency [facility] Emergency Department [address] [place] [address] Waleska Mcneal MD Chest pain, unspecified type (Primary Dx) Discharge Disposition: Discharge to home or self care 12/04/2024 10:18 AM CDT - 12/04/2024 11:59 PM CDT Hospital Encounter [facility] Diagnostic Imaging [address] [place] [address] Discharge Disposition: Discharge to home or self care 12/04/2024 9:45 AM CDT Pre-Admission Testing [facility] Pre Anesthesia Testing [address] [place] [address] Coronary artery disease of quileute heart with stable angina pectoris, unspecified vessel or lesion type; Shortness of breath 12/01/2024 3:00 PM CDT Office Visit [facility] [address] [place] [address] [address] [place] [phone] Theresa Lamb MD Coronary artery disease involving 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 (Primary Dx); Coronary artery disease involving quileute coronary artery of quileute heart, unspecified whether angina present 12/01/2024 Orders Only [facility] [address] [place] [address] [address] [place] [phone] Theresa Lamb MD Coronary arteriosclerosis in quileute artery (Primary Dx) 11/27/2024 12:30 PM CDT Office Visit [facility] Rheumatology at [facility] [address] [facility] [address] [place] [address] Idania Mehta MD Polyarticular psoriatic arthritis (HCC) (Primary Dx); Encounter for long-term (current) use of high-risk medication; Coronary artery disease involving 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 11/23/2024 Documentation [facility] [address] [place] [address] [address] [place] [phone] Kristal Edward NP PCP Callback Request - Patient; CTS Consultation- Patient CAll 11/17/2024 6:59 PM CDT - 11/17/2024 11:55 PM CDT Emergency [facility] Emergency Department [address] [place] [address] Jeremie Tucker MD Diarrhea, unspecified type (Primary Dx) Discharge Disposition: Discharge to home or self care 11/17/2024 Telephone [facility] Cardiology [address] [place] [address] [place] [phone] Jatinder Jones MD 11/16/2024 Telephone [facility] Cardiology [address] [facility] [address] [facility] [address] Matthew Gong MD 11/16/2024 Telephone [facility] [address] [place] [address] [place] [address] Alireza Clark MD Freestyle Libre Order from Last 3 Months Immunizations Immunization Administration [...] HERNIA REPAIR 04/02/2020 - 05/02/2020 COLECTOMY 10/16/2022 sigmoid ROTATOR CUFF REPAIR 07/03/2023 Right CHOLECYSTECTOMY 04/2020 LASIK 09/02/2002 - 09/01/2003 TONSILLECTOMY 09/02/1999 - 09/01/2000 CERVICAL FUSION 09/02/2000 - 09/01/2001 C4-5 COLONOSCOPY 2007, 2013, 2016, 2021, 2023 CARDIAC STENT PLACEMENT 01/31/2010 - 03/01/2010 x3 HEMORROIDECTOMY 2015, 2017 CARDIAC SURGERY 09/02/2016 - 09/01/2017 Loop recorder, Dr Anand LUMBAR LAMINECTOMY 02/01/2024 - 03/01/2024 KIDNEY STONE SURGERY CIRCUMCISION 06/02/2024 - 07/02/2024 PENILE PROSTHESIS IMPLANT 06/02/2024 - 07/02/2024 CARDIAC CATHETERIZATION 10/31/2024 - 11/30/2024 CORONARY ARTERY BYPASS GRAFT 12/14/2024 4 vessel cabg Medical History Medical History Date Comments Hx Other Medical CAD, HTN, VVsyn cope, BPH, DMT2, GERD, hypoT4, DJD,; Comments: MAF 09/28/2015 - Neck pain Extremity pain Chronic pain disorder Arthritis Psoriatic Diabetes mellitus (HCC) Hypertension Psoriasis Psoriatic arthritis (HCC) PONV (postoperative nausea and vomiting) Motion sickness GERD (gastroesophageal reflux disease) Type 2 diabetes mellitus (HCC) Hypothyroidism Hyperlipidemia Sleep apnea Syncope 40 years ago S/P colon resection Kidney stone Stroke (HCC) 1986 TIA Cataract Palpitations Pacemaker pacemaker in [facility], but does not work, per patient dr decided he didn't need it anymore Coronary artery disease Family History Medical History Relation Name Comments [...] Bethel Shultz Heart disease; Cancer Paternal Grandmother Margarita Shultz Diabetes Paternal Grandmother Margarita Shultz Relation Name Status Comments Brother Father Eugenia Shultz Maternal Grandfather Remington Pina Maternal Grandmother Salome Pina Mother Emily Shultz Paternal Grandfather Bethel [...] materials from doctor or pharmacy Never 01/27/2025 [facility] Utilities Answer Date Recorded In the past 12 months has th e [employer], gas, oil, or water company threatened to [...] often do you attend chur ch or baptist services? More than 4 times per year 01/11/2025 Do you belong to any clubs o r organizations such as religion groups, unions, fraternal or athletic groups, or [...] staff should administer the PHQ-9) 0 08/17/2024 [facility] - Occupational Stress [...] the money to buy more. Never true 01/12/20 25 Within the past 12 months, t [...] any time in the past 12 m [facility], were you homeless or living in a detention (including now)? No 01/11/2025 Personal Safety Answer Date Recorded Have you ever been in or are you currently in a harmful physical or emotional relationship or is someone making you feel afraid or unsafe? 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 Male 3:55 AM SEWER HEAD Gender Identity Male 01/23/2020 12:25 AM [...] 01/13/2025 1:26 PM CDT Plan of Treatment Health Maintenance Due [...] 2023-2 5 season) 2024 08/10/2022, 05/16/2021, 04/25/2021 Albumin Creatinine Ratio, Urine 04/01/2025 Lipid Panel 04/01/2025 04/01/2024, 12/31, 11/29/2021, Additional history exists Hemoglobin A1C 06/19/2025 12/18/2024, 08/02, 05/25/2024, Additional history exists Depression Screening 08/17/2025 08/17/2024, 01/05/2022, 02/10/2020, Additional history exists Fall Risk Assessment 01/11/2026 01/11/2025, 08/17/2024, 01/05/2022 eGFR 01/11/2026 01/11/2025, 12/31, 01/10/2025, Additional history exists Influenza Vaccine Completed 05/03/2024, , 05/03/2022, Additional history exists Goals Goal Patient Goal Type Associated Problems Recent Progress Patient-Stated? Author [facility] Worsening(01/2021 2:46 PM CDT) Flor Guzman, RN Note: Play golf with minimal to no relief. Medical Devices Implanted Type Area Barrer And Tacker Device Identifier Shelf Expiration Date Model / Serial / Lot [employer] Active Fixation Steroid Eluting Latex Free Sterile Right Atrium Ventricle Ultipace 58cm [id number] - [id number] - [id number] Implanted:Qty: 1 on 01/08/2025 by Theresa Lamb MD at [facility] Lead Left: Chest [employer] [id number] 09/01/2027 [id number]/58 / [id number] / [employer] Active Fixation Steroid Eluting Latex Free Sterile Right Atrium Ventricle Ultipace 52cm [id number]/52 - [id number] - [id number] Implanted:Qty: 1 on 01/08/2025 by Theresa Lamb MD at [facility] Lead Left: Chest [employer] [id number] 10/31/2027 [id number]/52 / [id number] / [employer] Assurity Mri [id number] 2 Chamber Is-1 Connector Thk6mm Pacemaker [id number] - [id number] - [id number] Implanted:Qty: 1 on 01/08/2025 by Theresa Lamb MD at [facility] Pacemaker Left: Chest [employer] [id number] 06/01/2026 [id number] / [id number] / [employer]ah Ams 700 Kit Accessory Penile Prosthesis [id number] - [id number] Implanted:Qty: 1 on 06/18/2024 by Jose David Betanocurt MD at [facility] N/A: Groin [employer] [id number] 04/08/2029 [id number] / / [id number] [employer] Ams Spectra 12/14mm .5cm Cylinder Concealable Malleable Rear Tip [id number] - [id number] Implanted:Qty: 1 on 06/18/2024 by Jose David Betancourt MD at [facility] N/A: Penis [employer] [id number] 02/15/2029 [id number] / / [id number] [employer] Ams 700 Preconnect 1 Ms Pump 2 Cylinder Penoscrotal Prosthesis [id number] - [id number] Implanted:Qty: 1 on 06/18/2024 by Jose David Betancourt MD at [facility] N/A: Penis [employer] [id number] 10/13/2025 [id number] / / [id number] [employer] Conceal Low Profile [place] 100ml Prosthesis Inhibizone Sterile Latex Free [id number] - [id number] Implanted:Qty: 1 on 06/18/2024 by Jose David Betancourt MD at [facility] Left: Pelvis [employer] [id number] 04/22/2026 [id number] / [id number] Procedures Procedure Name Priority Date/Time Associated Diagnosis [...] METABOLIC PANEL STAT 01/07/2025 4:45 PM CDT MD ARTL CATHJ/CANNULJ MNTR/TRANSFUSION SPX PRQ Routine 01/07/2025 [...] HIGH-SENSITIVITY 2-HOUR Timed 01/07/2025 10:28 AM CDT MD CRITICAL CARE ILL/INJURED PATIENT INIT 30-74 MIN [...] PM CDT POCT GLUCOSE DEVICE Routine 12/19/2024 5:09 PM CDT POCT GLUCOSE DEVICE Routine 12/19/2024 [...] 8:03 AM CDT 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 POCT GLUCOSE [...] 9:01 PM CDT 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 POCT GLUCOSE [...] 1:57 PM CDT 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 POCT GLUCOSE [...] 9:57 PM CDT 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 POCT GLUCOSE [...] 6:07 PM CDT 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 POCT GLUCOSE DEVICE Routine 12/14/2024 5:50 PM CDT POC BLOOD GAS AND CHEMISTRIES, [...] LINE PLACEMENT Routine 12/14/2024 11:59 AM CDT MD AN ELECTIVE ENDOTRACHEAL AIRWAY Routine 12/14/2024 11:51 AM CDT ANESTHESIA ARTERIAL LINE PLACEMENT Routine 12/14/2024 11:49 AM CDT CORONARY ARTERY BYPASS GRAFT - INTERNAL MAMMARY/RADIAL ARTERY/SAPHENOUS VEIN GRAFT - LEG 12/14/2024 11:23 AM CDT Coronary artery disease of quileute heart with stable angina pectoris, unspecified vessel or lesion type PREPARE RBC STAT 12/14/2024 9:02 AM CDT POCT GLUCOSE DEVICE Routine 12/14/2024 8 :57 AM CDT TRANSTHORACIC ECHO (TTE) COMPLETE W DOPPLER/CF WO CONTRAST Routine 12/08/2024 8:39 AM CDT Coronary arteriosclerosis in quileute artery TROPONIN T HIGH-SENSITIVITY 2-HOUR Timed 12/07/2024 [...] 10:45 AM CDT Coronary artery disease of quileute heart with stable angina pectoris, unspecified vessel or lesion type ECG 12-LEAD Routine 12/04/2024 10:34 AM CDT Coronary artery disease of quileute heart with stable angina pectoris, unspecified vessel or lesion type EGFR Routine 12/04/2024 9:57 AM CDT Coronary artery disease of quileute heart with stable angina pectoris, unspecified vessel or lesion type BASIC METABOLIC PANEL Routine 12/04/2024 9:57 AM CDT Coronary artery disease of quileute heart with stable angina pectoris, unspecified vessel or lesion type PROTIME-INR Routine 12/04/2024 9:57 AM CDT Coronary artery disease of quileute heart with stable angina pectoris, unspecified vessel or lesion type APTT Routine 12/04/2024 9:57 AM CDT Coronary artery disease of quileute heart with stable angina pectoris, unspecified vessel or lesion type Shortness of breath CBC WITHOUT DIFFERENTIAL Routine 12/04/2024 9:57 AM CDT Coronary artery disease of quileute heart with stable angina pectoris, unspecified vessel or lesion type TYPE AND SCREEN Routine 12/04/2024 9:57 AM CDT Coronary artery disease of quileute heart with stable angina pectoris, unspecified vessel or lesion type URINALYSIS AND REFLEX TO MICROSCOPIC AND CULTURE Routine 12/04/2024 9:57 AM CDT Coronary artery disease of quileute heart with stable angina pectoris, unspecified vessel [...] POCT glucose (01/11/2025 1:21 PM CDT) Pathologist [facility] Glucose, POC 220(H) 70 - 199 mg/dL POC Performer [id number] JEFF BRODERIKC Blood 01/11/2025 1:21 PM CDT 01/11/2025 1:21 PM CDT us Génesis Delatorre MD LAB POCT ORDERABLES - DEVICE Final Result JEFF BRODERICK [address] Department [place] [address] * eGFR (01/11/2025 1:00 PM CDT) Pathologist [facility] eGFR >90 >=60 mL/min/1. 73 m2 [...] CDT 01/11/2025 1:00 PM CDT Jose Vega TAXONOMIST LAB BLOOD ORDERABLES Final Result [facility] [address] [address] Department [place] [address] * (ABNORMAL) Renal function panel (01/11/2025 1:00 PM CDT) Sodium 141 135 - 145 mmol/L Potassium, pl 3.8 3.3 - 4.9 mmol/L [facility] Chloride 100 97 - 110 mmol/L [facility] CO2 27 22 - 32 mmol/L [facility] Anion gap 14 2 - 15 mmol/L [facility] BUN 16 6 - 25 mg/dL [facility] Creatinine 0.67(L) 0.80 - 1.30 mg/dL [facility] Glucose 198 70 - 199 mg/dL [facility] Comment: Interpretive Data Fasting glucose >/= [...] 2022. Calcium 9.3 8.5 - 10.3 mg/dL [facility] Phosphorus, pl 2.8 2.3 - 4.5 mg/dL [facility] Albumin 3.6 3.5 - 5.0 g/dL [facility] Blood 01/11/2025 1:00 PM CDT 01/11/2025 1:00 PM CDT us Jose Vega NP LAB BLOOD ORDERABLES Final Result Performing Organization Address City/[facility]/ZIP Co de Phone Number [facility] [address] [address] Department [place] [address] * eGFR (01/11/2025 9:11 AM CDT) eGFR [...] BLOOD ORDERABLES Final R esult JEFF BROD[address]ICK [address] Department [place] [address] * (ABNORMAL) CBC without differential (01/11/2025 9:11 [...] AM CDT 01/11/2025 1:02 PM CDT us Jose Vega NP LAB BLOOD ORDERABLES Final Result JEFF BRODERICK [address] Department [place] [address] * (ABNORMAL) CBC without differential (01/11/2025 9:11 AM CDT) WBC 8.77 3.80 - 9.90 K/cumm Hgb 11.0(L) 13.0 - 17.5 g/dL [facility] Hct 36.3(L) 38.9 - 50.3 % [facility] Plt 258 150 - 400 K/cumm [facility] MPV 9.0(L) 9.1 - 12.3 fL [facility] RBC 4.17(L) 4.30 - 5.80 M/cumm [facility] MCV 87.1 81.3 - 96.4 fL [facility] MCH 26.4(L) 27.1 - 33.3 pg [facility] MCHC 30.3(L) 32.3 - 35.7 g/dL [facility] CH RDW CV 13.8 11.1 - 14.9 % [facility] RDW SD 44.1 35.7 - 48.1 fL [facility] NRBC abs 0.00 0.00 - 0.01 K/cumm [facility] Blood 01/11/2025 9:11 AM CDT 01/11/2025 1:02 PM CDT us Theresa Lamb MD LAB BLOOD ORDERABLES Final R esult JEFF [address] [address] Department of Laboratories [place] [phone] * (ABNORMAL) Renal function panel (01/11/2025 9:11 AM CDT) Sodium 138 135 - 145 mmol/L Potassium, pl 3.7 3.3 - 4.9 mmol/L [facility] Chloride 98 97 - 110 mmol/L [facility] CO2 29 22 - 32 mmol/L [facility] Anion gap 11 2 - 15 mmol/L [facility] BUN 16 6 - 25 mg/dL [facility] Creatinine 0.67(L) 0.80 - 1.30 mg/dL [facility] Glucose 198 70 - 199 mg/dL [facility] Comment: Interpretive Data Fasting glucose >/= [...] 2022. Calcium 9.4 8.5 - 10.3 mg/dL [facility] Phosphorus, pl 2.8 2.3 - 4.5 mg/dL [facility] Albumin 3.7 3.5 - 5.0 g/dL [facility] Blood 01/11/2025 9:11 AM CDT 01/11/2025 1:02 PM CDT Theresa Lamb MD LAB BLOOD ORDERABLES Final R esult Performing Organization Address [facility] Co de Phone Number JEFF BRODERICK [address] [address] Department of [employer] [place] [address] * POCT glucose (01/11/2025 8:12 AM CDT) Glucose, POC 189 70 - 199 mg/dL POC Performer [id number] [facility] Blood 01/11/2025 8:12 AM CDT 01/11/2025 8:12 AM CDT Génesis Delatorre MD LAB POCT ORDERABLES - DEVICE Final Result Performing Organization Address [facility] de Phone Number JEFF BRODERICK [address] Department [employer] [place] [address] * (ABNORMAL) POCT glucose (01/10/2025 9:34 PM CDT) Glucose, POC 250(H) 70 - 199 mg/dL POC Performer [id number] [facility] Blood 01/10/2025 9:34 PM CDT 01/10/2025 9:34 PM CDT Génesis Delatorre MD LAB POCT ORDERABLES - DEVICE Final Result Performing Organization Address [facility] Co de Phone Number JEFF BRODERICK [address] [address] [facility] [employer] [place] [address] * TRANSTHORACIC ECHO (TTE) LIMITED/FOLLOW UP W LTD DOPPLER/CF WO CONTRAST (01/10/2025 6:28 PM CDT) EF Mod BP 60 % CONS SCIMAGE Anatomical Region Laterality Modality Ultrasound 01/10/2025 5:28 PM CDT Narrative 01/10/2025 5:59 [place] [address] Limited Echocardiogram Report Patient Name: SHAWN SHULTZ B : 1950 Study Date: 01/10/2025 5:28:40 PM Gender: M Tech: ND Location: [id number] Ref Provider: KRISTAL EDWARD Height(Cm): 168 BSA: [...] Procedure Note Jose Godoy MD - 01/10/2025 [place] [address] Limited Echocardiogram Report Patient Name: SHAWN SHULTZ B : 1950 Study Date: 01/10/2025 5:28:40 PM Gender: M Tech: ND Location: [id number] Ref Provider: KRISTAL EDWARD Height(Cm): 168 BSA: [...] 246(H) 70 - 199 mg/dL POC Performer [id number] [facility] Blood 01/10/2025 4:49 PM CDT 01/10/2025 4:49 PM CDT Génesis Delatorre MD LAB POCT ORDERABLES - DEVICE Final Result Performing Organization Address [facility] Co de Phone Number JEFF [address] [address] [place] [address] * Type and screen (01/10/2025 12:49 PM CDT) Pathologist [facility] ABO Rh A Negative Antonio, indirect Negative [facility] Blood 01/10/2025 12:4 9 PM CDT 01/10/2025 12:53 PM CDT Narrative [facility] - 01/10/2025 1:41 PM CDT Has the patient had Daratumumab or Isatuximab in the past 6 months?->Unknown us Theresa Lamb MD LAB BLOOD BANK TEST ORDERABL ES Final Result Performing Organization Address City/[facility]/ZIP Co de Phone Number JEFF [address] [place] [address] * (ABNORMAL) POCT glucose (01/10/2025 12:05 PM CDT) Glucose, POC 208(H) 70 - 199 mg/dL POC Performer [id number] [facility] Blood 01/10/2025 12:0 5 PM CDT 01/10/2025 12:05 PM CDT Génesis Delatorre MD LAB POCT ORDERABLES - DEVICE Final Result Performing Organization Address [facility]/ZIP Co de Phone Number JEFF BROD[address] Department [employer] [place] [address] * POCT glucose (01/10/2025 8:05 AM CDT) Glucose, POC 194 70 - 199 mg/dL POC Performer [id number] [facility] Blood 01/10/2025 8:05 AM CDT 01/10/2025 8:05 AM CDT Génesis Delatorre MD LAB POCT ORDERABLES - DEVICE Final Result Performing Organization Address [facility] de Phone Number SAMANTHAROGER BRODERICK [address] [address] Department [employer] [place] [address] * Calcium, ionized, whole blood (01/10/2025 7:43 AM CDT) Ca, ionized, bld 4.63 4.50 - 5.10 mg/dL Blood 01/10/2025 7:43 AM CDT 01/10/2025 7:53 AM CDT Theresa Lamb MD LAB BLOOD ORDERABLES Final R esult Performing Organization Address [facility] Co de Phone Number JEFF BRODERICK [address] Department [employer] [place] [address] * eGFR (01/10/2025 7:43 AM CDT) eGFR [...] NP LAB BLOOD ORDERABLES Fin al Result [facility] [address] [address] Department [place] [address] * (ABNORMAL) CBC without differential (01/10/2025 7:43 AM CDT) WBC 8.90 3.80 - 9.90 K/cumm Hgb 9.9(L) 13.0 - 17.5 g/dL [facility] Hct 32.4(L) 38.9 - 50.3 % [facility] Plt 232 150 - 400 K/cumm [facility] MPV 8.7(L) 9.1 - 12.[address] [facility] RBC 3.78(L) 4.30 - 5.80 M/cumm [facility] MCV 85.7 81.3 - 96.[address] [facility] MCH 26.2(L) 27.1 - 33.[address] [facility] MCHC 30.6(L) 32.3 - 35.7 g/dL [facility] RDW CV 13.6 11.1 - 14.9 % [facility] RDW SD 42.4 35.7 - 48.1 fL [facility] NRBC abs 0.00 0.00 - 0.01 K/cumm [facility] Blood 01/10/2025 7:43 AM CDT 01/10/2025 7:55 AM CDT Theresa Lamb MD LAB BLOOD ORDERABLES Final R esult Performing Organization Address City/[facility] Co de Phone Number JEFF BRODERICK [address] Department [employer] [place], [place] [id number] * Magnesium (01/10/2025 7:43 AM CDT) Pathologist [facility] Magnesium 1.9 1.4 - 2.5 mg/dL Blood 01/10/2025 7:43 AM CDT 01/10/2025 7:55 AM CDT Theresa Lamb MD LAB BLOOD ORDERABLES Final R [facility] Performing Organization Address [facility] Co de Phone Number JEFF [address] [place] [address] * (ABNORMAL) Renal function panel (01/10/2025 7:43 AM CDT) Sodium 136 135 - 145 mmol/L Potassium, pl 4.1 3.3 - 4.9 mmol/L [facility] Chloride 102 97 - 110 mmol/L [facility] CO2 26 22 - 32 mmol/L [facility] Anion gap 8 2 - 15 mmol/L [facility] BUN 14 6 - 25 mg/dL [facility] Creatinine 0.67(L) 0.80 - 1.30 mg/dL [facility] Glucose 186 70 - 199 mg/dL [facility] Comment: Interpretive Data Fasting glucose >/= [...] 2022. Calcium 8.9 8.5 - 10.3 mg/dL [facility] Phosphorus, pl 2.3 2.3 - 4.5 mg/dL [facility] Albumin 3.3(L) 3.5 - 5.0 g/dL [facility] Blood 01/10/2025 7:43 AM CDT 01/10/2025 7:55 AM CDT us Theresa Lamb MD LAB BLOOD ORDERABLES Final R esult JEFF [address] Department [place] [address] * XR Chest 1 View (01/10/2025 6:05 [...] 239(H) 70 - 199 mg/dL POC Performer [id number] [facility] Blood 01/09/2025 9:09 PM CDT 01/09/2025 9:09 PM CDT Génesis Delatorre MD LAB POCT ORDERABLES - DEVICE Final Result Performing Organization Address City/[facility]/ZIP Co de Phone Number JEFF BRODERICK [address] [address] Department [employer] [place], [place] [phone] * (ABNORMAL) POCT glucose (01/09/2025 5:32 PM CDT) Glucose, POC 254(H) 70 - 199 mg/dL POC Performer [id number] [facility] Blood 01/09/2025 5:32 PM CDT 01/09/2025 5:32 PM CDT Génesis Delatorre MD LAB POCT ORDERABLES - DEVICE Final Result Performing Organization Address City/[facility]/ZIP Co de Phone Number JEFF BRODERICK [address] [address] Department of [employer] [place] [address] * (ABNORMAL) POCT glucose (01/09/2025 12:59 PM CDT) Glucose, POC 226(H) 70 - 199 mg/dL POC Performer [id number] [facility] Blood 01/09/2025 12:5 9 PM CDT 01/09/2025 12:59 PM CDT Génesis Delatorre MD LAB POCT ORDERABLES - DEVICE Final Result Performing Organization Address [facility] Co de Phone Number JEFF BRODERICK [address] [address] Department [employer] [place] [address] * POCT glucose (01/09/2025 7:47 AM CDT) Glucose, POC 191 70 - 199 mg/dL POC Performer [id number] [facility] Blood 01/09/2025 7:47 AM CDT 01/09/2025 7:47 AM CDT Génesis Delatorre MD LAB POCT ORDERABLES - DEVICE Final Result Performing Organization Address [facility] Co de Phone Number JEFF BRODERICK [address] [address] Department [employer] [place] [address] * Calcium, ionized, whole blood (01/09/2025 6:20 AM CDT) Pathologist [facility] Ca, ionized, bld 4.52 4.50 - 5.10 mg/dL Blood 01/09/2025 6:20 AM CDT 01/09/2025 7:08 AM CDT Theresa Lamb MD LAB BLOOD ORDERABLES Final R esult Performing Organization Address City/[facility] Co de Phone Number JFEF BRODERICK [address] [address] [facility] [employer] [place], [place] [id number] * eGFR (01/09/2025 6:20 AM CDT) eGFR [...] NP LAB BLOOD ORDERABLES Fin al Result [facility] [address] [address] Department of Laboratories [place] [phone] * (ABNORMAL) CBC without differential (01/09/2025 6:20 AM CDT) WBC 10.74(H) 3.80 - 9.90 K/cumm Hgb 9.7(L) 13.0 - 17.5 g/dL [facility] Hct 32.0(L) 38.9 - 50.3 % [facility] Plt 279 150 - 400 K/cumm [facility] MPV 8.8(L) 9.1 - 12.[address] [facility] RBC 3.70(L) 4.30 - 5.80 M/cumm [facility] MCV 86.5 81.3 - 96.[address] [facility] MCH 26.2(L) 27.1 - 33.[address] [facility] MCHC 30.3(L) 32.3 - 35.7 g/dL [facility] RDW CV 13.4 11.1 - 14.9 % [facility] RDW SD 42.2 35.7 - 48.[address] [facility] NRBC abs 0.00 0.00 - 0.01 K/cumm [facility] Blood 01/09/2025 6:20 AM CDT 01/09/2025 7:11 AM CDT Theresa Lamb MD LAB BLOOD ORDERABLES Final R esult Performing Organization Address [facility] Co de Phone Number [facility] [address] Department [employer] [place] [address] * Magnesium (01/09/2025 6:20 AM CDT) Magnesium 1.9 1.4 - 2.5 mg/dL Blood 01/09/2025 6:20 AM CDT 01/09/2025 7:11 AM CDT Theresa Lamb MD LAB BLOOD ORDERABLES Final R esult Performing Organization Address [facility] de Phone Number [facility] [address] [address] Department of [employer] [place] [address] * (ABNORMAL) Renal function panel (01/09/2025 6:20 AM CDT) Sodium 135 135 - 145 mmol/L Potassium, pl 3.9 3.3 - 4.9 mmol/L [facility] Chloride 101 97 - 110 mmol/L [facility] CO2 24 22 - 32 mmol/L [facility] Anion gap 10 2 - 15 mmol/L [facility] BUN 17 6 - 25 mg/dL [facility] Creatinine 0.75(L) 0.80 - 1.30 mg/dL [facility] Glucose 195 70 - 199 mg/dL [facility] Comment: Interpretive Data Fasting glucose >/= [...] 2022. Calcium 8.5 8.5 - 10.3 mg/dL [facility] Phosphorus, pl 2.7 2.3 - 4.5 mg/dL [facility] Albumin 3.3(L) 3.5 - 5.0 g/dL [facility] Blood 01/09/2025 6:20 AM CDT 01/09/2025 7:11 AM CDT us Theresa Lamb MD LAB BLOOD ORDERABLES Final R esult JEFF [address] [address] Department [place] [address] * XR Chest 1 View (01/09/2025 6:15 [...] pneumothorax. Electronically signed by: Zenon Wing M.D. us Theresa Lamb MD IMG XR PROCEDURES Final Resu lt * POCT glucose (01/08/2025 8:21 PM CDT) Glucose, POC 161 70 - 199 mg/dL POC Performer [id number] JEFF BRODERICK Blood 01/08/2025 8:21 PM CDT 01/08/2025 8:21 PM CDT Génesis Delatorre MD LAB POCT ORDERABLES - DEVICE Final Result SAMANTHAROGER DAVIE [address] [address] Department [place] [address] * XR Chest 1 Vw Portable (01/08/2025 [...] 1 Hour (01/08/2025 5:18 PM CDT) Narrative RAD_PACS_ - 01/08/2025 5:20 PM CDT The images from this study are not interpreted by Radiology. Please refer to the physician's procedure / OR operative note. Theresa Lamb MD IMG FLUOROSCOPY PROCEDURES F inal Result Performing Organization Address City/[facility]/ZIP Co de Phone Number RAD_PACS_[facility] * (ABNORMAL) POCT glucose (01/08/2025 11:56 AM CDT) Glucose, POC 222(H) 70 - 199 mg/dL POC Performer [id number] JEFF Blood 01/08/2025 11:5 6 AM CDT 01/08/2025 11:56 AM CDT Theresa Lamb MD LAB POCT ORDERABLES - DEVICE Final Result Performing Organization Address City/[facility] Co de Phone Number [facility] [address] [address] Department [place] [address] * Infection Prevention MRSA Only (Staphylococcus aureus) PCR Nasal (01/08/2025 8:06 AM CDT) PCR Scrn, Methicillin resistant Staphylococcus aureus (MRSA) Not Detected Not Detected CH Comment: Interpretive Data Testing performed using Nucleic Acid Amplification with the [employer] Xpert MRSA NxG Assay. This assay detects target DNA from mecA, mecC and the SCCmec insertion site of Staphylococcus aureus using Real-Time PCR and has been cleared by the FDA. Performance characteristics have been verified by the [facility]. Current Interpretive Data was last revised on 2023 Nasal 01/08/2025 8:06 AM CDT 01/08/2025 8:11 AM CDT us Theresa Lamb MD LAB MICROBIOLOGY - GENERAL O RDERABLES Final Result Performing Organization Address City/[facility] Co de Phone Number JEFF BRODERICK [address] Department [place] [address] CH * (ABNORMAL) POCT glucose (01/08/2025 8:03 AM CDT) Glucose, POC 237(H) 70 - 199 mg/dL POC Performer [id number] [facility] Blood 01/08/2025 8:03 AM CDT 01/08/2025 8:03 AM CDT Génesis Delatorre MD LAB POCT ORDERABLES - DEVICE Final Result Performing Organization Address City/[facility] Co de Phone Number JEFF BRODERICK [address] [address] Department [place] [address] * Critical Care (01/08/2025 7:02 AM CDT) Narrative Sindhu Whittington MD - 01/08/2025 7:02 AM CDT Sindhu Whittington MD 01/08/2025 6:26 PM Critical Care Performed by: Lesly Rossi NP Authorized by: Lesly Rossi NP CRITICAL CARE: Team: DELROY Shift: AM Level of Billing: Critical Care [...] plan with the ICU team and other medical/business consultant staff, making frequent assessments and decisions [...] 163 70 - 199 mg/dL POC Performer [id number] JEFF Blood 01/08/2025 5:06 AM CDT 01/08/2025 5:06 AM CDT us Theresa Lamb MD LAB POCT ORDERABLES - DEVICE Final Result Performing Organization Address [facility] Co de Phone Number JEFF BRODERICK [address] [address] Department [employer] [place] [address] * eGFR (01/08/2025 12:33 AM CDT) eGFR [...] 01/08/2025 12:33 AM CDT us Fran Mcgrath NP LAB BLOOD ORDERABLES Fin al Result Performing Organization Address City/[facility]/ZIP Co de Phone Number JEFF BRODERICK [address] [address] Department [employer] [place] [address] * Magnesium (01/08/2025 12:33 AM CDT) Magnesium 1.9 1.4 - 2.5 mg/dL Blood 01/08/2025 12:3 3 AM CDT 01/08/2025 12:33 AM CDT us Theresa Lamb MD LAB BLOOD ORDERABLES Final R esult Performing Organization Address City/[facility]/ZIP Co de Phone Number JEFF BRODERICK [address] [address] [place] [address] * (ABNORMAL) Renal function panel (01/08/2025 12:33 AM CDT) Sodium 136 135 - 145 mmol/L Potassium, pl 4.0 3.3 - 4.9 mmol/L [facility] Chloride 103 97 - 110 mmol/L [facility] CO2 24 22 - 32 mmol/L [facility] Anion gap 9 2 - 15 mmol/L [facility] BUN 14 6 - 25 mg/dL [facility] Creatinine 0.71(L) 0.80 - 1.30 mg/dL [facility] Glucose 212(H) 70 - 199 mg/dL [facility] Comment: Interpretive Data Fasting glucose >/= 126 [...] [facility] Albumin 3.4(L) 3.5 - 5.0 g/dL [facility] Blood 01/08/2025 12:3 3 AM CDT 01/08/2025 12:33 AM CDT Theresa Lamb MD LAB BLOOD ORDERABLES Final R esult Performing Organization Address [facility]/ZIP Co de Phone Number JEFF BRODERICK [address] [address] Department [employer] [place], [place] [phone] * (ABNORMAL) POCT glucose (01/08/2025 12:26 AM CDT) Glucose, POC 232(H) 70 - 199 mg/dL POC Performer [id number] JEFF Blood 01/08/2025 12:2 6 AM CDT 01/08/2025 12:26 AM CDT Génesis Delatorre MD LAB POCT ORDERABLES - DEVICE Final Result Performing Organization Address [facility] de Phone Number SAMANTHAROGER [address] [address] Department [employer] [place], [place] [phone] * (ABNORMAL) Troponin T high-sensitivity (01/08/2025 12:20 AM CDT) Trop T hs 72(H) <=22 ng/L Comment: Interpretive Data For further hscTnT resources including the diagnostic algorithm and an aid in interpretation, copy and paste this link: https://nrl.testcatalog.org/show/hsTrop Current Interpretive Data last revised 2020. Blood 01/08/2025 12:2 0 AM CDT 01/08/2025 12:34 AM CDT Fran Mcgrath NP LAB BLOOD ORDERABLES Fin al Result Performing Organization Address [facility] de Phone Number SAMANTHAROGER [address] [address] Department [employer] [place] [address] * Calcium, ionized, whole blood (01/08/2025 12:20 AM CDT) Ca, ionized, bld 4.73 4.50 - 5.10 mg/dL Blood 01/08/2025 12:2 0 AM CDT 01/08/2025 12:35 AM CDT Theresa Lamb MD LAB BLOOD ORDERABLES Final R esult Performing Organization Address [facility] de Phone Number SAMANTHAROGER [address] [address] Department [employer] [place] [address] * (ABNORMAL) CBC without differential (01/08/2025 12:20 AM CDT) WBC 10.30(H) 3.80 - 9.90 K/cumm Hgb 9.8(L) 13.0 - 17.5 g/dL [facility] Hct 31.1(L) 38.9 - 50.3 % [facility] Plt 341 150 - 400 K/cumm [facility] MPV 8.6(L) 9.1 - 12.3 fL [facility] RBC 3.66(L) 4.30 - 5.80 M/cumm [facility] MCV 85.0 81.3 - 96.4 fL [facility] MCH 26.8(L) 27.1 - 33.3 pg [facility] MCHC 31.5(L) 32.3 - 35.7 g/dL [facility] RDW CV 13.3 11.1 - 14.9 % [facility] RDW SD 41.7 35.7 - 48.1 fL [facility] NRBC abs 0.00 0.00 - 0.01 K/cumm [facility] Blood 01/08/2025 12:2 0 AM CDT 01/08/2025 12:39 AM CDT us Theresa Lamb MD LAB BLOOD ORDERABLES Final R esult [facility] [address] [address] [facility] [employer] [place] [address] * (ABNORMAL) POCT glucose (01/07/2025 9:55 PM CDT) Glucose, POC 249(H) 70 - 199 mg/dL POC Performer [id number] [facility] Blood 01/07/2025 9:55 PM CDT 01/07/2025 9:55 PM CDT Theresa Lamb MD LAB POCT ORDERABLES - DEVICE Final Result JEFF [address] [address] Department [place] [address] * Critical Care (01/07/2025 8:43 PM CDT) [...] plan with the patient's team and other medical/business consultant staff. This time was in addition to and separate from care provided by other practitioners on this day of service. us Heri Tovar NP IN CLINIC/BEDSIDE ORDER BEATRIZ Final Result * (ABNORMAL) POCT glucose (01/07/2025 7:54 PM CDT) Glucose, POC 266(H) 70 - 199 mg/dL POC Performer [id number] JEFF Blood 01/07/2025 7:54 PM CDT 01/07/2025 7:54 PM CDT us Theresa Lamb MD LAB POCT ORDERABLES - DEVICE Final Result JEFF BRODERICK [address] [address] Department [place] [address] * (ABNORMAL) Troponin T high-sensitivity (01/07/2025 6:24 [...] ORDERABLES Fin al Result Performing Organization Address [facility] Co de Phone Number JEFF BRODERICK [address] [address] Department [place] [address] * Type and screen (01/07/2025 6:24 PM CDT) Antonio, indirect Negative ABO Rh A Negative [facility] Blood 01/07/2025 6:24 PM CDT 01/07/2025 6:42 PM CDT Narrative [facility] - 01/07/2025 7:44 PM CDT Has the patient had Daratumumab or Isatuximab in the past 6 months?->Unknown Fran Mcgrath NP LAB BLOOD BANK TEST ORDE RABLES Final Result Performing Organization Address [facility] de Phone Number SAMANTHAROGER [address] [address] Department [employer] [place] [address] * Urinalysis reflex to microscopic (01/07/2025 5:32 [...] tendency for uric acid stone formation. Source: [employer] Current Interpretive Data was last revised on 2017 Protein, ur ql Trace Negative [facility] Glucose, ur ql Negative Negative [facility] Ketones, ur Trace Negative [facility] Bilirubin, ur Negative Negative [facility] Blood, ur Negative Negative [facility] Urobilinogen, ur <2.0 <2.0 mg/dL [facility] Nitrite, ur Negative Negative [facility] Leukocyte esterase, ur Negative Negative [facility] UA reflex comment Reflex conditions for microscopic UA not met. [facility] Urine 01/07/2025 5:32 PM CDT 01/07/2025 5:42 PM CDT Fran Mcgrath NP LAB URINE ORDERABLES Fin al Result Performing Organization Address [facility] Co de Phone Number JEFF BRODERICK [address] [address] Department [employer] [place] [address] * Strep pneumoniae antigen, urine Urine (01/07/2025 5:32 PM CDT) Pathologist [facility] S. pneumoniae Ag Negative Negative Comment: A [...] AL ORDERABLES Final Result Performing Organization Address [facility] Co de Phone Number JEFF BRODERICK [address] [address] Department of [employer] [place] [address] * Legionella antigen Urine (01/07/2025 5:32 PM CDT) Pathologist [facility] Legionella Ag Negative Negative Comment: Interpretive Data This test detects only Legionella pneumophila serogroup 1 antigen. Current interpretive data was last revised on 2019. Urine 01/07/2025 5:32 PM CDT 01/07/2025 5:42 PM CDT Fran Mcgrath TAXONOMIST LAB MICROBIOLOGY - [facility] AL ORDERABLES Final Result [facility] [address] [address] Department [place] [address] * (ABNORMAL) Respiratory pathogen panel Nasopharyngeal (01/07/2025 5:30 PM CDT) [facility] Influenza A RNA Not Detected Not Detected Influenza B RNA Not Detected Not Detected [facility] RSV RNA Not Detected Not Detected [facility] COVID-19 RNA Not Detected Not Detected [facility] Coronavirus 229E RNA Not Detected Not Detected [facility] Coronavirus HKU1 RNA Not Detected Not Detected [facility] Coronavirus NL63 RNA Not Detected Not Detected [facility] Coronavirus OC43 RNA Not Detected Not Detected [facility] Adenovirus DNA Not Detected Not Detected [facility] Metapneumovirus RNA Detected(A) Not Detected [facility] Rhinovirus/Enterov irus RNA Not Detected Not Detected [facility] Parainfluenza 1 RNA Not Detected Not Detected [facility] Parainfluenza 2 RNA Not Detected Not Detected [facility] Parainfluenza 3 RNA Not Detected Not Detected [facility] Parainfluenza 4 RNA Not Detected Not Detected [facility] B. pertussis DNA Not Detected Not Detected [facility] B. parapertussis DNA Not Detected Not Detected [facility] C. pneumoniae DNA Not Detected Not Detected [facility] M. pneumoniae DNA Not Detected Not Detected [facility] Comment: Interpretive Data The Exogenesis FilmArray Respiratory Panel (RP2.1) assay is a [...] assay has FDA clearance for testing of TAXONOMIST swabs. The performance characteristics of this assay have been determined by [facility]. Current interpretive data was last revised on 2021. Nasopharyngeal 01/07/2025 5: 30 PM CDT 01/07/2025 6:35 PM CDT Shanice AGUILAR - 01/07/2025 8:39 PM CDT Is the Patient experiencing symptoms consistent with COVID?->Unknown Surveillance testing for transplant patient?->No Fran Mcgrath TAXONOMIST LAB MICROBIOLOGY - GENER AL ORDERABLES Final Result JEFF BRODERICK [address] [address] Department [place] [address] * Critical Care (01/07/2025 4:59 PM CDT) [...] plan with the ICU team and other medical/business consultant staff, making frequent assessments and decisions [...] 01/07/2025 5:10 PM CDT us Fran Mcgrath TAXONOMIST LAB BLOOD ORDERABLES Fin al Result JEFF BRODERICK [address] [facility] [employer] [place] [address] * Sepsis Lactate w/ Reflex (01/07/2025 4:45 PM CDT) Pathologist [facility] Sepsis Lactate 1.9 0.7 - 2.0 mmol/L Blood 01/07/2025 4:45 PM CDT 01/07/2025 5:10 PM CDT Sindhu Whittington MD LAB BLOOD ORDERABLES Iris l Result JEFF [facility]OD[facility]ICK [address] [address] [facility] [employer] [place] [address] * Lactate (01/07/2025 4:45 PM CDT) Pathologist [facility] Lactate 1.9 0.7 - 2.0 mmol/L Blood 01/07/2025 4:45 PM CDT 01/07/2025 5:10 PM CDT Fran Mcgrath TAXONOMIST LAB BLOOD ORDERABLES Fin al Result Performing Organization Address City/[facility] Co de Phone Number JEFF BRODERICK [address] [address] [facility] [employer] [place] [address] * Calcium, ionized, whole blood (01/07/2025 4:45 PM CDT) Pathologist [facility] Ca, ionized, bld 4.62 4.50 - 5.10 mg/dL Blood 01/07/2025 4:45 PM CDT 01/07/2025 5:10 PM CDT Fran Mcgrath TAXONOMIST LAB BLOOD ORDERABLES Fin al Result Performing Organization Address City/[facility]/ZIP Co de Phone Number JEFF BRODERICK [address] [address] [facility] [employer] [place], [place] [id number] * eGFR (01/07/2025 4:45 PM CDT) Pathologist [facility] eGFR >90 >=60 mL/min/1. 73 m2 [...] LAB BLOOD ORDERABLES Fin al Result JEFF [address] [address] Department [place] [address] * (ABNORMAL) Pro B-type natriuretic [...] et.al. Eur Heart J. 2006:27:330-337. 2. Vandana MARTINEZ, Larry THOMPSON. J. AM Casimiro Cardiol: Cardiovasc Imag. 2009;2: 216- 225. Interpretive Data Last Revised Date: 2018. Blood 01/07/2025 4:45 PM CDT 01/07/2025 5:10 PM CDT Fran Mcgrath NP LAB BLOOD ORDERABLES Fin al Result Performing Organization Address [facility] de Phone Number [facility] [address] [address] [employer] [place], [place] [id number] * Thyroid Function Bacon (01/07/2025 4:45 PM CDT) Pathologist [facility] TSH 0.75 0.30 - 4.20 mcIUnit/mL Blood 01/07/2025 4:45 PM CDT 01/07/2025 5:10 PM CDT Fran Mcgrath TAXONOMIST LAB BLOOD ORDERABLES Fin al Result Performing Organization Address [facility] de [place] [address] [address] [place] [address] * aPTT (01/07/2025 4:45 PM CDT) aPTT 32 28 - 38 sec Comment: Interpretive Data Heparin therapeutic range: 66.0 - 100.0 seconds. Range based on correlation with therapeutic heparin activity range of 0.3 - 0.7 Units/mL. Current interpretive data was last revised on 2023. Blood 01/07/2025 4:45 PM CDT 01/07/2025 5:10 PM CDT Fran Mcgrath TAXONOMIST LAB BLOOD ORDERABLES Fin al Result Performing Organization Address [facility] Co de Phone Number JEFF [address] [address] Department [employer] [place] [address] * (ABNORMAL) Protime-INR (01/07/2025 4:45 PM CDT) [...] CDT 01/07/2025 5:10 PM CDT Fran Mcgrath TAXONOMIST LAB BLOOD ORDERABLES Fin al Result Performing Organization Address [facility] Co de Phone Number [facility] [place] [facility] [address] [address] Department [employer] [place] [address] * Fibrinogen (01/07/2025 4:45 PM CDT) Fibrinogen 359 170 - 400 mg/dL Blood 01/07/2025 4:45 PM CDT 01/07/2025 5:10 PM CDT Fran Mcgrath TAXONOMIST LAB BLOOD ORDERABLES Fin al Result JEFF [address] [address] Department [employer] [place] [address] * (ABNORMAL) CBC without differential (01/07/2025 4:45 PM CDT) [facility] WBC 9.43 3.80 - 9.90 K/cumm Hgb 9.9(L) 13.0 - 17.5 g/dL [facility] Hct 31.6(L) 38.9 - 50.3 % [facility] Plt 306 150 - 400 K/cumm [facility] MPV 8.7(L) 9.1 - 12.[address] [facility] RBC 3.72(L) 4.30 - 5.80 M/cumm [facility] MCV 84.9 81.3 - 96.[address] [facility] MCH 26.6(L) 27.1 - 33.3 pg [facility] MCHC 31.3(L) 32.3 - 35.7 g/dL [facility] RDW CV 13.4 11.1 - 14.9 % [facility] CH RDW SD 41.4 35.7 - 48.[address] [facility] NRBC abs 0.00 0.00 - 0.01 K/cumm [facility] Blood 01/07/2025 4:45 PM CDT 01/07/2025 5:12 PM CDT Fran Mcgrath TAXONOMIST LAB BLOOD ORDERABLES Fin al Result Performing Organization Address [facility] de Phone Number [facility] [address] [address] [facility] [address] [place] [address] * Uric acid (01/07/2025 4:45 PM CDT) [facility] Uric acid 4.0 3.0 - 8.0 mg/dL Blood 01/07/2025 4:4 5 PM CDT 01/07/2025 5:10 PM CDT Fran Mcgrath TAXONOMIST LAB BLOOD ORDERABLES Fin al Result Performing Organization Address [facility] de Phone Number [facility] [address] [address] [facility] [employer] [place] [address] * Phosphorus (01/07/2025 4:45 PM CDT) Phosphorus, pl 2.7 2.3 - 4.5 mg/dL Blood 01/07/2025 4:45 PM CDT 01/07/2025 5:10 PM CDT Fran Mcgrath TAXONOMIST LAB BLOOD ORDERABLES Fin al Result Performing Organization Address [facility] Co de Phone Number JEFF BRODERICK [address] [address] [facility] [employer] [place] [address] * Magnesium (01/07/2025 4:45 PM CDT) Pathologist [facility] Magnesium 1.7 1.4 - 2.5 mg/dL Blood 01/07/2025 4:45 PM CDT 01/07/2025 5:10 PM CDT Fran Mcgrath NP LAB BLOOD ORDERABLES Fin al Result Performing Organization Address [facility] Phone Number JEFF BRODERICK [address] [address] [facility] [employer] [place] [address] * Blood gas, venous (01/07/2025 4:45 PM CDT) pH, Venous 7.41 7.32 - 7.43 PCO2, [...] CDT 01/07/2025 5:10 PM CDT Fran Mcgrath TAXONOMIST LAB BLOOD ORDERABLES Fin al Result Performing Organization Address [facility] de Phone Number JEFF BRODERICK [address] [address] [facility] [employer] [place] [address] * Creatine kinase (CK), total (01/07/2025 4:45 PM CDT) Pathologist [facility] CK 52 40 - 300 Units/L Blood 01/07/2025 4:45 PM CDT 01/07/2025 5:10 PM CDT Fran Mcgrath TAXONOMIST LAB BLOOD ORDERABLES Fin al Result Performing Organization Address [facility] Co de Phone Number SAMANTHAROGER BRODERICK [address] [address] [facility] [employer] [place] [address] * Creatine kinase (CK), total (01/07/2025 4:45 PM CDT) [facility] CK 51 40 - 300 Units/L Blood 01/07/2025 4:45 PM CDT 01/07/2025 5:10 PM CDT Fran Mcgrath TAXONOMIST LAB BLOOD ORDERABLES Fin al Result Performing Organization Address [facility] Co de Phone Number JEFF DAVIE [address] [address] [facility] [employer] [place] [address] * Bilirubin, direct (01/07/2025 4:45 PM CDT) [facility] Bilirubin, direct 0.1 0.1 - 0.3 mg/dL Blood 01/07/2025 4:45 PM CDT 01/07/2025 5:10 PM CDT Fran Mcgrath TAXONOMIST LAB BLOOD ORDERABLES Fin al Result Performing Organization Address [facility] Co de Phone Number SAMANTHAROGER [address] [address] [facility] [employer] [place] [address] * (ABNORMAL) Comprehensive metabolic panel (01/07/2025 4:45 PM CDT) [facility] Sodium 138 135 - 145 mmol/L Potassium, pl 4.3 3.3 - 4.9 mmol/L 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 Cardiogenic shock, bradycardia Post [...] PM CDT Narrative 01/07/2025 3:24 [place] [address] Echocardiogram Report Patient Name: SHAWN SHULTZ BRI : 1950 Study Date: 01/07/2025 1:26:17 PM Gender: M Tech: JELANI Location: [id number] Ref Provider: FRAN MCGRATH Height(Cm): 168 BSA: [...] Procedure Note Isidro Carvalho MD - 01/07/2025 [place] [address] Echocardiogram Report Patient Name: SHAWN SHULTZ BRI : 1950 Study Date: 01/07/2025 1:26:17 PM Gender: M Tech: Location: [address] Provider: FRAN MCGRATH Height(Cm): 168 BSA: 2.05 [...] Isidro Carvalho MD 01/07/2025 3:23:39 PM CDT us Fran Mcgrath NP CV ECHO PROCEDURES Final Result * ECG 12 lead (01/07/2025 2:15 PM CDT) 01/07/2025 2:15 PM CDT Narrative [facility] - 01/07/2025 2:36 PM CDT Vent Rate: 96 bpm RR Interval: 625 msec MD Interval: 234 msec QRS Duration: 101 msec QT Interval: 367 msec QTC Interval: 420 msec P-R-T [place]: 24 - 119 - 97 degrees IMPRESSION: SINUS RHYTHM WITH FIRST DEGREE AV BLOCK INCOMPLETE RIGHT BUNDLE BRANCH BLOCK RIGHT VENTRICULAR HYPERTROPHY NONSPECIFIC ST \T\ T-WAVE ABNORMALITY Electronically Signed By: Washington Díaz MD, [facility] us Fran Mcgrath NP ECG ORDERABLES Final Re sult [facility] * X-ray chest 1 view (Portable) (01/07/2025 [...] signed by: Zenon Wing M.D. Fran Mcgrath TAXONOMIST IMG XR PROCEDURES Final Result * (ABNORMAL) POCT glucose (01/07/2025 12:53 PM CDT) Glucose, POC 212(H) 70 - 199 mg/dL POC Performer [id number] JEFF BRODERICK Blood 01/07/2025 12:5 3 PM CDT 01/07/2025 12:53 PM CDT Génesis Delatorre MD LAB POCT ORDERABLES - DEVICE Final Result JEFF BRODERICK [address] [address] Department [place] [address] * (ABNORMAL) Troponin T high-sensitivity 2-hour (01/07/2025 10:28 AM CDT) Trop T hs 74(H) <=22 ng/L Comment: Michael Mcnulty RN ER Interpretive Data For further hscTnT resources including the diagnostic algorithm and an aid in interpretation, copy and paste this link: https://nrl.testcatalog.org/show/hsTrop Current Interpretive Data last revised 2020. Trop T hs delta 41(C) ng/L [facility] ([facility]EL) Comment:Critical Result call ed by [id number] at 2025-01-07 11:19:30. Result Read Back by Michael Mcnulty RN ER Trop T hs interp Significa nt(C) [facility] (QU[facility]) Comment:Critical Result call ed by [email or web address] at 2025-01-07 11:19:30. Result Read Back by Michael Mcnulty RN ER Blood 01/07/2025 10:2 8 AM CDT 01/07/2025 10:33 AM CDT us Jt Mejia MD LAB BLOOD ORDERABLE S Final Result JEFF [facility] ([facility]) 1 [facility] [place] [address] * MD CRITICAL CARE ILL/INJURED PATIENT INIT 30-74 MIN [...] (ABNORMAL) POCT glucose (01/07/2025 10:12 AM CDT) Pathologist [facility] Glucose, POC 219(H) 70 - 199 mg/dL Blood 01/07/2025 10:1 2 AM CDT 01/07/2025 10:12 AM CDT us Jomar No MD LAB POCT ORDERABLES - NOAH CE Final Result JEFF [facility] QUITMAN) [address] [place] [address] [place] [address] * TRANSTHORACIC ECHO (TTE) LIMITED/FOLLOW UP WO DOPPLER/CF WO CONTRAST (01/07/2025 9:32 AM CDT) Pathologist [facility] Estimated EF 65 % CONS SCIMAGE Anatomical Region Laterality Modality Ultrasound 01/07/2025 9:09 AM CDT Narrative 01/07/2025 9:54 AM CDT [address] [address] Limited Echocardiogram Report Patient Name: SHAWN SHULTZ HAILY : 1950 Study Date: 01/07/2025 9:09:51 AM Gender: M Tech: AA Location: ED03 Ref Provider: JT MEJIA Height(Cm): BSA: Weight(Kg): [...] Procedure Note Jose Godoy MD - 01/07/[address] [address] Limited Echocardiogram Report Patient Name: SHAWN SHULTZ BRI : 1950 Study Date: 01/07/2025 9:09:51 AM Gender: M Tech: Location: ED03 Ref Provider: JT MEJIA Height(Cm): BSA: Weight(Kg): [...] Lyla Salamanca M.D. FT: FT Report ID: [id number] Reading Location: [id number] Procedure Note Lyla Roberson MD - 01/07/2025 [...] Lyla Salamanca M.D. FT: FT Report ID: [id number] Reading Location: [id number] Jt Mejia MD IMG XR PROCEDURES F inal Result * (ABNORMAL) Sepsis Lactate w/ Reflex (01/07/2025 8:58 AM CDT) Sepsis Lactate 3.9(H) 0.7 - 2.0 mmol/L Blood 01/07/2025 8:58 AM CDT 01/07/2025 9:01 AM CDT us Jt Mejia MD LAB BLOOD ORDERABLE S Final Result JEFF IGLESIAS QUITMAN) 1 [facility] [place] [address] * (ABNORMAL) Troponin T high-sensitivity series (baseline, [...] LAB BLOOD ORDERABLE S Final Result JEFF IGLESIAS (QUITMAN) 1 [facility] [place] [address] * eGFR (01/07/2025 8:40 AM CDT) eGFR [...] BLOOD ORDERABLE S Final Result JEFF [facility] ([facility]) 1 [facility] [place] [address] * (ABNORMAL) Differential, auto (01/07/2025 8:40 AM CDT) Neutrophil abs 4.48 1.50 - 6.50 K/cumm Imm gran abs 0.02 0.00 - 0.10 K/cumm [facility] ([facility]) Lymphocyte abs 2.42 0.80 - 3.30 K/cumm [facility] ([facility]) Monocyte abs 0.85(H) 0.20 - 0.80 K/cumm [facility] ([facility]) Eosinophil abs 0.29 0.00 - 0.50 K/cumm [facility] ([facility]) Basophil abs 0.07 0.00 - 0.10 K/cumm [facility] ([place]) Neutrophil pct 55.0 % [facility] ([facility]) Comment: Interpretive Data Percent cell count reference [...] S Final Result JEFF [facility] ([place]) 1 [facility] [place] [address] * (ABNORMAL) CBC with auto differential (01/07/2025 [...] RDW CV 13.3 11.1 - 14.9 % [facility] ([place]) RDW SD 41.5 35.7 - 48.1 fL [facility] ([facility]) NRBC abs 0.00 0.00 - 0.01 K/cumm [facility] ([facility]) Blood 01/07/2025 8:40 AM CDT 01/07/2025 8:45 AM CDT Jt Mejia MD LAB BLOOD ORDERABLE S Final Result Performing Organization Address City/[facility]/ZIP Co de Phone Number [facility] ([place]) 1 [facility] [place] [address] * Magnesium (01/07/2025 8:40 AM CDT) [facility] Magnesium 1.7 1.4 - 2.5 mg/dL Blood 01/07/2025 8:40 AM CDT 01/07/2025 9:44 AM CDT Jt Mejia MD LAB BLOOD ORDERABLE S Final Result Performing Organization Address [facility] de Phone Number [facility] ([place]EL) 1 [facility] [place] [address] * (ABNORMAL) Comprehensive metabolic panel (01/07/2025 8:40 AM CDT) Sodium 138 135 - 145 mmol/L Potassium, pl 3.4 3.3 - 4.9 mmol/L [facility] ([place]EL) Chloride 102 97 - 110 mmol/L [facility] ([place]EL) CO2 20(L) 22 - 32 mmol/L [facility] ([facility]) Anion gap 16(H) 2 - 15 mmol/L [facility] ([place]) BUN 11 6 - 25 mg/dL [facility] ([place]EL) Creatinine 0.79(L) 0.80 - 1.30 mg/dL [facility] ([place]) Glucose 248(H) 70 - 199 mg/dL [facility] ([place]) Comment: Interpretive Data Fasting glucose [...] S Final Result JEFF [facility] ([place]) 1 [facility] [place] [address] * ECG 12 lead (01/07/2025 8:39 AM CDT) 01/07/2025 8:39 AM CDT Narrative [facility] - 01/07/2025 9:28 AM CDT Vent Rate: 91 bpm RR Interval: 654 msec MD Interval: 238 msec QRS Duration: 111 msec QT Interval: 394 msec QTC Interval: 443 msec P-R-T [place]: 7 - 132 - 71 degrees IMPRESSION: [...] Mejia MD ECG ORDERABLES Fin al Result [facility] * XR Chest Pa Lateral 2 Views [...] Meir Ascencio M.D. KT: KT Report ID: [id number] Reading Location: [id number] Procedure Note Meir Ascencio MD - 01/01/2025 [...] Meir Ascencio M.D. KT: KT Report ID: [id number] Reading Location: [place] [address] Nayely Sharp TAXONOMIST IMG XR PROCEDURES Fin al Result * [...] by: Vick Cruz M.D. us Jose Vega TAXONOMIST IMG XR PROCEDURES Final Res ult * [...] Vega NP LAB BLOOD ORDERABLES Final Result [facility] Department [place] [address] * (ABNORMAL) Differential, auto (12/26/2024 11:57 AM CDT) Neutrophil abs 5.27 1.50 - 6.50 K/cumm Imm gran abs 0.06 0.00 - 0.10 K/cumm [facility] Lymphocyte abs 1.07 0.80 - 3.30 K/cumm [facility] Monocyte abs 0.87(H) 0.20 - 0.80 K/cumm [facility] Eosinophil abs 0.33 0.00 - 0.50 K/cumm [facility] Basophil abs 0.07 0.00 - 0.10 K/cumm [facility] Neutrophil pct 68.7 % [facility] Comment: Interpretive Data Percent cell count reference ranges are not reported, since discordance with absolute values may lead to misinterpretation of CBC data. Current Interpretive Data was last revised on 2017. Imm gran pct 0.8 % [facility] Comment: Interpretive Data Percent cell count reference ranges are not reported, since discordance with absolute values may lead to misinterpretation of CBC data. Current Interpretive Data was last revised on 2017. Lymphocyte pct 14.0 % [facility] Comment: Interpretive Data Percent cell count reference ranges are not reported, since discordance with absolute values may lead to misinterpretation of CBC data. Current Interpretive Data was last revised on 2017. Monocyte pct 11.3 % [facility] Comment: Interpretive Data Percent cell count reference ranges are not reported, since discordance with absolute values may lead to misinterpretation of CBC data. Current Interpretive Data was last revised on 2017. Eosinophil pct 4.3 % [facility] Comment: Interpretive Data Percent cell count reference ranges are not reported, since discordance with absolute values may lead to misinterpretation of CBC data. Current Interpretive Data was last revised on 2017. Basophil pct 0.9 % [facility] Comment: Interpretive Data Percent cell count reference ranges are not reported, since discordance with absolute values may lead to misinterpretation of CBC data. Current Interpretive Data was last revised on 2017. Blood 12/26/2024 11:5 7 AM CDT 12/26/2024 4:02 PM CDT us Jose Vega TAXONOMIST LAB BLOOD ORDERABLES Final Result [facility] Department [place] [address] * (ABNORMAL) CBC with auto differential (12/26/2024 11:57 AM CDT) WBC 7.67 3.80 - 9.90 K/cumm Hgb 10.3(L) 13.0 - 17.5 g/dL [facility] Hct 32.4(L) 38.9 - 50.3 % [facility] Plt 447(H) 150 - 400 K/cumm [facility] MPV 8.3(L) 9.1 - 12.3 fL [facility] RBC 3.65(L) 4.30 - 5.80 M/cumm [facility] MCV 88.8 81.3 - 96.4 fL [facility] MCH 28.2 27.1 - 33.3 pg [facility] MCHC 31.8(L) 32.3 - 35.7 g/dL [facility] RDW CV 14.5 11.1 - 14.9 % [facility] RDW SD 46.3 35.7 - 48.1 fL [facility] NRBC abs 0.00 0.00 - 0.01 K/cumm [facility] Blood 12/26/2024 11:5 7 AM CDT 12/26/2024 4:02 PM CDT us Jose Vega NP LAB BLOOD ORDERABLES Final Result [facility] Department [place] [address] * (ABNORMAL) Comprehensive metabolic panel (12/26/2024 11:57 AM CDT) Pathologist [facility] Sodium 142 135 - 145 mmol/L Potassium, pl 3.8 3.3 - 4.9 mmol/L [facility] Chloride 105 97 - 110 mmol/L [facility] CO2 25 22 - 32 mmol/L [facility] Anion gap 12 2 - 15 mmol/L [facility] BUN 11 6 - 25 mg/dL [facility] Creatinine 0.75(L) 0.80 - 1.30 mg/dL [facility] Glucose 254(H) 70 - 199 mg/dL [facility] Comment: Interpretive Data Fasting glucose [...] 2022. Calcium 9.1 8.5 - 10.3 mg/dL [facility] Bilirubin, total <0.2 0.1 - 1.2 mg/dL [facility] Protein, pl 6.7 6.5 - 8.5 g/dL [facility] Albumin 3.7 3.5 - 5.0 g/dL [facility] Alk phos 93 40 - 130 Units/L [facility] ALT 21 7 - 55 Units/L [facility] AST 19 10 - 50 Units/L [facility] Blood 12/26/2024 11:5 7 AM CDT 12/26/2024 4:02 PM CDT us Jose Vega NP LAB BLOOD ORDERABLES Final Result [facility] Department [place] [address] * POCT glucose (12/21/2024 12:50 PM CDT) Glucose, POC 186 70 - 199 mg/dL POC Performer [id number] [facility] Blood 12/21/2024 12:5 0 PM CDT 12/21/2024 12:50 PM CDT us Theresa Lamb MD LAB POCT ORDERABLES - DEVICE Final Result Performing Organization Address City/[facility]/ZIP Co de Phone Number [facility] [address] [address] Department [place] [address] * (ABNORMAL) Urinalysis reflex to microscopic and culture Urine, clean voided (12/21/2024 12:22 PM CDT) Color, ur Yellow Yellow Clarity, ur Clear Clear [facility] [place] Specific gravity, ur 1.033(H) 1.003 - 1.[address] [facility] pH, urine 5.[address] [facility] Comment: Interpretive Data U rine pH is affected by diet, medications, systemic acid-base disturbances, and renal tubular function. pH may affect urinary stone formation. For example, urine pH below 6.0 may help reduce the tendency for calcium phosphate stones and pH greater than 6.0 may reduce the tendency for uric acid stone formation. Source: [facility] Current Interpretive Data was last revised on [...] microscopic UA and culture not met. [facility]ER CH Urine, clean voided 12/21/2024 12:22 PM CDT 12/21/2024 12:35 PM CDT us Jose Vega NP LAB MICROBIOLOGY - GENERAL ORDERABLES Final Result [facility] [address] Department [place] [address] * XR Chest PA Lateral 2 Views [...] Corey Limon II, D.O. us Jose Vega TAXONOMIST IMG XR PROCEDURES Final Res ult * POCT glucose (12/21/2024 7:41 AM CDT) Glucose, POC 100 70 - 199 mg/dL POC Performer [id number] JEFF Blood 12/21/2024 7:41 AM CDT 12/21/2024 7:41 AM CDT us Theresa Lamb MD LAB POCT ORDERABLES - DEVICE Final Result [facility] [address] Department [place] [address] * eGFR (12/21/2024 7:25 AM CDT) eGFR [...] CDT 12/21/2024 7:48 AM CDT Jose Vega TAXONOMIST LAB BLOOD ORDERABLES Final Result JEFF [address] Department of [employer] [place] [address] * (ABNORMAL) CBC without differential (12/21/2024 7:25 [...] CDT 12/21/2024 7:48 AM CDT Jose Vega TAXONOMIST LAB BLOOD ORDERABLES Final Result JEFF [address] Department of [employer] [place] [address] * (ABNORMAL) Basic metabolic panel (12/21/2024 7:25 AM CDT) Sodium 141 135 - 145 mmol/L Potassium, pl 3.0(L) 3.3 - 4.9 mmol/L [facility] CH Chloride 102 97 - 110 mmol/L [facility] CO2 26 22 - 32 mmol/L [facility] Anion gap 13 2 - 15 mmol/L [facility] BUN 28(H) 6 - 25 mg/dL [facility] Creatinine 0.85 0.80 - 1.30 mg/dL [facility] Glucose 100 70 - 199 mg/dL [facility] Comment: Interpretive Data Fasting glucose >/= [...] 2022. Calcium 9.2 8.5 - 10.3 mg/dL [facility] Blood 12/21/2024 7:25 AM CDT 12/21/2024 7:48 AM CDT us Jose Vega NP LAB BLOOD ORDERABLES Final Result JEFF [facility] [employer] [place], [place] [id number] * POCT glucose (12/20/2024 9:19 PM CDT) Glucose, POC 134 70 - 199 mg/dL POC Performer [id number] [facility] Blood 12/20/2024 9:19 PM CDT 12/20/2024 9:19 PM CDT us Theresa Lamb MD LAB POCT ORDERABLES - DEVICE Final Result JEFF [facility] Department of [employer] [place] [address] * POCT glucose (12/20/2024 5:21 PM CDT) Glucose, POC 196 70 - 199 mg/dL POC Performer [id number] [facility] CH Blood 12/20/2024 5:21 PM CDT 12/20/2024 5:21 PM CDT Theresa Lamb MD LAB POCT ORDERABLES - DEVICE Final Result Performing Organization Address [facility] Co de Phone Number JEFF BRODERICK [address] [address] [facility] [employer] [place] [address] * (ABNORMAL) POCT glucose (12/20/2024 4:03 PM CDT) Glucose, POC 216(H) 70 - 199 mg/dL POC Performer [id number] [facility] CH Blood 12/20/2024 4:03 PM CDT 12/20/2024 4:03 PM CDT Theresa Lamb MD LAB POCT ORDERABLES - DEVICE Final Result Performing Organization Address [facility] Co de Phone Number JEFF BRODERICK [address] [address] [facility] [employer] [place] [address] * (ABNORMAL) POCT glucose (12/20/2024 11:59 AM CDT) Glucose, POC 245(H) 70 - 199 mg/dL POC Performer [id number] [facility]ERNER CH Blood 12/20/2024 11:5 9 AM CDT 12/20/2024 11:59 AM CDT Theresa Lamb MD LAB POCT ORDERABLES - DEVICE Final Result Performing Organization Address City/[facility] Co de Phone Number JEFF BRODERICK [address] [address] [facility] [employer] [place] [address] * (ABNORMAL) POCT glucose (12/20/2024 7:31 AM CDT) Glucose, POC 209(H) 70 - 199 mg/dL POC Performer [id number] [facility] CH Blood 12/20/2024 7:31 AM CDT 12/20/2024 7:31 AM CDT us Theresa Lamb MD LAB POCT ORDERABLES - DEVICE Final Result Performing Organization Address [facility] Co de Phone Number JEFF BRODERICK [address] [employer] [place], [place] [id number] * eGFR (12/20/2024 7:13 AM CDT) eGFR [...] BLOOD ORDERABLES Final Result Performing Organization Address City/[facility]/ZIP Co de Phone Number SAMANTHAROGER BRODERICK [address] [address] [employer] [place] [address] * (ABNORMAL) CBC without differential (12/20/2024 7:13 AM CDT) WBC 14.20(H) 3.80 - 9.90 K/cumm Hgb 11.5(L) 13.0 - 17.5 g/dL JEFF Hct 35.4(L) 38.9 - 50.3 % [facility] [place] Plt 291 150 - 400 K/cumm CERNER CH MPV 8.9(L) 9.1 - 12.3 fL CERNER RBC 4.06(L) 4.30 - 5.80 M/cumm CERNER MCV 87.2 81.3 - 96.[address] [facility] MCH 28.3 27.1 - 33.3 pg [facility] MCHC 32.5 32.3 - 35.7 g/dL [facility] RDW CV 13.5 11.1 - 14.9 % CERNER CH RDW SD 42.6 35.7 - 48.[address] [facility] NRBC abs 0.00 0.00 - 0.01 K/cumm [facility] Blood 12/20/2024 7:13 AM CDT 12/20/2024 7:37 AM CDT Jose Vega NP LAB BLOOD ORDERABLES Final Result [facility] [address] Department [place] [address] * (ABNORMAL) Basic metabolic panel (12/20/2024 7:13 AM CDT) Sodium 141 135 - 145 mmol/L Potassium, pl 3.5 3.3 - 4.9 mmol/L [facility] Chloride 100 97 - 110 mmol/L [facility] CO2 28 22 - 32 mmol/L [facility] Anion gap 13 2 - 15 mmol/L [facility] BUN 29(H) 6 - 25 mg/dL [facility] Creatinine 0.91 0.80 - 1.30 mg/dL [facility] Glucose 202(H) 70 - 199 mg/dL [facility] Comment: Interpretive Data Fasting glucose >/= [...] Calcium 9.3 8.5 - 10.3 mg/dL JEFF BRODERICK Blood 12/20/2024 7:13 AM CDT 12/20/2024 7:37 AM CDT Jose Vega NP LAB BLOOD ORDERABLES Final Result JEFF [facility] Department [place] [address] * XR Chest 1 View (12/20/2024 5:57 [...] prior. Electronically signed by: Ashlee Page M.D. us oJse Vega TAXONOMIST IMG XR PROCEDURES Final Res ult * (ABNORMAL) POCT glucose (12/20/2024 3:04 AM CDT) Glucose, POC 225(H) 70 - 199 mg/dL POC Performer [id number] [facility]ER CH Blood 12/20/2024 3:04 AM CDT 12/20/2024 3:04 AM CDT Theresa Lamb MD LAB POCT ORDERABLES - DEVICE Final Result Performing Organization Address City/[facility]/ZIP Co de Phone Number JEFF BRODERICK [address] [employer] [place] [address] * (ABNORMAL) POCT glucose (12/19/2024 8:49 PM CDT) Glucose, POC 328(H) 70 - 199 mg/dL POC Performer [id number] [facility] Blood 12/19/2024 8:49 PM CDT 12/19/2024 8:49 PM CDT Theresa Lamb MD LAB POCT ORDERABLES - DEVICE Final Result Performing Organization Address [facility] Co de Phone Number JEFF BRODERICK [address] [address] [facility] [employer] [place] [address] * (ABNORMAL) POCT glucose (12/19/2024 5:09 PM CDT) Glucose, POC 230(H) 70 - 199 mg/dL POC Performer [id number] CERNER Blood 12/19/2024 5:09 PM CDT 12/19/2024 5:09 PM CDT Theresa Lamb MD LAB POCT ORDERABLES - DEVICE Final Result Performing Organization Address City/[facility] Co de Phone Number JEFF BRODERICK [address] [address] [facility] [employer] [place] [address] * (ABNORMAL) POCT glucose (12/19/2024 12:37 PM CDT) Glucose, POC 279(H) 70 - 199 mg/dL POC Performer [id number] [facility] Blood 12/19/2024 12:3 7 PM CDT 12/19/2024 12:37 PM CDT Theresa Lamb MD LAB POCT ORDERABLES - DEVICE Final Result Performing Organization Address [facility] Co de Phone Number JEFF BRODERICK [address] Department of [employer] [place] [address] * POCT glucose (12/19/2024 7:56 AM CDT) Glucose, POC 195 70 - 199 mg/dL POC Performer [id number] [facility] Blood 12/19/2024 7:56 AM CDT 12/19/2024 7:56 AM CDT Theresa Lamb MD LAB POCT ORDERABLES - DEVICE Final Result Performing Organization Address [facility] Phone Number JEFF BRODERICK [address] Department of [employer] [place] [address] * XR Chest 1 View (12/19/2024 6:35 [...] 12/19/2024 6:14 AM CDT us Jose Vega NP LAB BLOOD ORDERABLES Final Result JEFF [address] Department [place] [address] * (ABNORMAL) aPTT (12/19/2024 5:44 AM CDT) [...] BLOOD ORDERABLES Final Result Performing Organization Address [facility] Co de Phone Number JEFF BRODERICK [address] [address] [facility] [employer] [place] [address] * Protime-INR (12/19/2024 5:44 AM CDT) Pathologist [facility] PT 12.8 9.7 - 13.0 sec INR 1.18 0.90 - 1.20 JEFF Comment: Interpretive data Oral anticoagulant therapeutic ranges: Venous thromboembolism prophylaxis or treatment: 2.0-3.0 CARDIOLOGY Standard range: 2.0-3.0 High-intensity range: 2.5-3.5 Refer to indication-specific guidelines for appropriate target ranges for prosthetic heart valve replacement. Current interpretive data was last revised on 2019. Blood 12/19/2024 5:44 AM CDT 12/19/2024 6:14 AM CDT Jose Vega NP LAB BLOOD ORDERABLES Final Result JEFF [facility] [address] [address] [facility] [employer] [place] [address] * (ABNORMAL) CBC without differential (12/19/2024 5:44 AM CDT) WBC 11.54(H) 3.80 - 9.90 K/cumm Hgb 11.5(L) 13.0 - 17.5 g/dL [facility] CH Hct 34.1(L) 38.9 - 50.3 % C[facility] CH Plt 239 150 - 400 K/cumm [facility] CH MPV 8.9(L) 9.1 - 12.3 fL CERNER RBC 4.00(L) 4.30 - 5.80 M/cumm [facility]ER CH MCV 85.3 81.3 - 96.4 fL CERNER MCH 28.8 27.1 - 33.3 pg CERNER MCHC 33.7 32.3 - 35.7 g/dL C[facility] CH RDW CV 13.4 11.1 - 14.9 % C[facility] CH RDW SD 41.9 35.7 - 48.1 fL CERNER NRBC abs 0.00 0.00 - 0.01 K/cumm [facility] Blood 12/19/2024 5:44 AM CDT 12/19/2024 6:20 AM CDT Jose Vega TAXONOMIST LAB BLOOD ORDERABLES Final Result [facility] [address] Department [place] [address] * (ABNORMAL) Basic metabolic panel (12/19/2024 5:44 AM CDT) Sodium 139 135 - 145 mmol/L Potassium, pl 3.3 3.3 - 4.9 mmol/L [facility] Chloride 99 97 - 110 mmol/L [facility] CO2 26 22 - 32 mmol/L [facility] Anion gap 14 2 - 15 mmol/L [facility] BUN 26(H) 6 - 25 mg/dL [facility] Creatinine 0.82 0.80 - 1.30 mg/dL [facility] Glucose 179 70 - 199 mg/dL [facility] Comment: Interpretive Data Fasting glucose >/= [...] 12/19/2024 6:14 AM CDT us Jose Vega TAXONOMIST LAB BLOOD ORDERABLES Final Result Performing Organization Address [facility]/ZIP Co de Phone Number JEFF [address] [employer] [place] [address] * POCT glucose (12/18/2024 8:41 PM CDT) Glucose, POC 135 70 - 199 mg/dL POC Performer [id number] [facility] Blood 12/18/2024 8:41 PM CDT 12/18/2024 8:41 PM CDT Theresa Lamb MD LAB POCT ORDERABLES - DEVICE Final Result Performing Organization Address [facility] de Phone Number JEFF BRODERICK [address] Department of [employer] [place] [address] * (ABNORMAL) POCT glucose (12/18/2024 5:14 PM CDT) Glucose, POC 281(H) 70 - 199 mg/dL POC Performer [id number] [facility] Blood 12/18/2024 5:14 PM CDT 12/18/2024 5:14 PM CDT Theresa Lamb MD LAB POCT ORDERABLES - DEVICE Final Result Performing Organization Address [facility] Co de Phone Number JEFF BRODERICK [address] [employer] [place] [address] * TRANSTHORACIC ECHO (TTE) LIMITED/FOLLOW UP W LTD DOPPLER/CF W CONTRAST (12/18/2024 1:45 PM CDT) LV EF 70 % CONS SCIMAGE Anatomical Region Laterality Modality Ultrasound 12/18/2024 1:07 PM CDT Narrative 12/18/2024 3:51 [place] [address] Limited Echocardiogram Report Patient Name: SHAWN SHULTZ BRIAN : 1950 Study Date: 12/18/2024 1:07:07 PM Gender: M Tech: JELANI Location: [id number] Ref Provider: NATALI WEBSTER Height(Cm): 168 BSA: [...] Procedure Note Ada Jaquez MD - 12/18/2024 [place] [address] Limited Echocardiogram Report Patient Name: SHAWN SHULTZ BRIAN : 1950 Study Date: 12/18/2024 1:07:07 PM Gender: M Tech: Location: [id number] Ref Provider: NATALI WEBSTER Height(Cm): 168 BSA: [...] 289(H) 70 - 199 mg/dL POC Performer [id number] [facility] [place] [facility] Blood 12/18/2024 12:4 2 PM CDT 12/18/2024 12:42 PM CDT Theresa Lamb MD LAB POCT ORDERABLES - DEVICE Final Result JEFF [address] [facility] Department of [employer] [place] [address] * POCT glucose (12/18/2024 8:01 AM CDT) Glucose, POC 169 70 - 199 mg/dL POC Performer [id number] [facility] Blood 12/18/2024 8:01 AM CDT 12/18/2024 8:01 AM CDT us Theresa Lamb MD LAB POCT ORDERABLES - DEVICE Final Result JEFF BRODERICK [address] Department [place] [address] * XR Chest PA Lateral 2 Views [...] Corey Limon II, D.O. us Jose Vega TAXONOMIST IMG XR PROCEDURES Final Res ult * ECG 12 lead (12/18/2024 7:22 AM CDT) 12/18/2024 7:22 AM CDT Narrative [facility] - 12/18/2024 9:03 AM CDT Vent Rate: 85 bpm RR Interval: 703 msec MD Interval: 200 msec QRS Duration: 112 msec QT Interval: 414 msec QTC Interval: 456 msec P-R-T [place]: 9 - 47 - 51 degrees IMPRESSION: SINUS RHYTHM INFERIOR MYOCARDIAL INFARCTION , OF INDETERMINATE AGE [40+ ms Q WAVE AND/OR ST/T ABNORMALITY IN II/aVF] ABNORMAL ECG Electronically Signed By: Jerad Jaquez MD us Theresa Lamb MD ECG ORDERABLES Final Result [facility] [employer] [facility] * eGFR (12/18/2024 5:56 AM CDT) [...] LAB BLOOD ORDERABLES Final Result JEFF BRODERICK [address] Department [place] [address] * (ABNORMAL) CBC without differential (12/18/2024 5:56 AM CDT) [facility] WBC 12.01(H) 3.80 - 9.90 K/cumm Hgb 11.4(L) 13.0 - 17.5 g/dL [facility] Hct 33.9(L) 38.9 - 50.3 % [facility] Plt 202 150 - 400 K/cumm [facility] MPV 9.1 9.1 - 12.[address] [facility] RBC 3.91(L) 4.30 - 5.80 M/cumm [facility] MCV 86.7 81.3 - 96.[address] [facility] MCH 29.2 27.1 - 33.[address] [facility] MCHC 33.6 32.3 - 35.7 g/dL [facility] RDW CV 13.8 11.1 - 14.9 % [facility] RDW SD 43.5 35.7 - 48.[address] [facility] NRBC abs 0.00 0.00 - 0.01 K/cumm [facility] Blood 12/18/2024 5:56 AM CDT 12/18/2024 6:01 AM CDT Jose Vega NP LAB BLOOD ORDERABLES Final Result [facility] [address] [address] Department [place] [address] * (ABNORMAL) Hemoglobin A1c (12/18/2024 5:56 AM CDT) [facility] Hgb A1C 7.4(H) 4.0 - 5.6 % Estimated Average Glucose 166 mg/dL [facility] Comment: The ADA recommends reporting an estimated Average Glucose (eAG) with all Hemoglobin A1c results using the equation derived from a study of 507 normal and diabetic adults. Minority populations were underrepresented and children were not included. (Diabetes Care 31:6626-1343, 2008). The eAG is not equivalent to a fasting glucose. Blood 12/18/2024 5:56 AM CDT 12/18/2024 6:01 AM CDT Jose Vega TAXONOMIST LAB BLOOD ORDERABLES Final Result JEFF BRODERICK [address] [address] Department [place] [address] * (ABNORMAL) Basic metabolic panel (12/18/2024 5:56 AM CDT) Sodium 139 135 - 145 mmol/L Potassium, pl 3.6 3.3 - 4.9 mmol/L C[facility]ER Chloride 101 97 - 110 mmol/L [facility] CH CO2 26 22 - 32 mmol/L [facility] CH Anion gap 12 2 - 15 mmol/L [facility] CH BUN 25 6 - 25 mg/dL [facility] Creatinine 0.75(L) 0.80 - 1.30 mg/dL [facility] CH Glucose 138 70 - 199 mg/dL [facility] Comment: Interpretive Data Fasting glucose >/= [...] 2022. Calcium 9.3 8.5 - 10.3 mg/dL [facility] Blood 12/18/2024 5:56 AM CDT 12/18/2024 6:01 AM CDT us Jose Vega TAXONOMIST LAB BLOOD ORDERABLES Final Result JEFF BRODERICK [address] [address] Department [place] [address] * POCT glucose (12/18/2024 4:11 AM CDT) Glucose, POC 177 70 - 199 mg/dL POC Performer [id number] [facility] Blood 12/18/2024 4:11 AM CDT 12/18/2024 4:11 AM CDT Theresa Lamb MD LAB POCT ORDERABLES - DEVICE Final Result Performing Organization Address [facility] Co de Phone Number JEFF BRODERICK [address] [address] [facility] [employer] [place] [address] * POCT glucose (12/17/2024 8:11 PM CDT) Glucose, POC 189 70 - 199 mg/dL POC Performer [id number] [facility] Blood 12/17/2024 8:11 PM CDT 12/17/2024 8:11 PM CDT Theresa Lamb MD LAB POCT ORDERABLES - DEVICE Final Result Performing Organization Address [facility] de Phone Number JEFF BRODERICK [address] [address] [facility] [employer] [place] [address] * POCT glucose (12/17/2024 5:49 PM CDT) Glucose, POC 179 70 - 199 mg/dL POC Performer [id number] [facility] CH Blood 12/17/2024 5:49 PM CDT 12/17/2024 5:49 PM CDT Theresa Lamb MD LAB POCT ORDERABLES - DEVICE Final Result Performing Organization Address [facility] Co de Phone Number JEFF BRODERICK [address] [address] [facility] [employer] [place] [address] * (ABNORMAL) POCT glucose (12/17/2024 1:05 PM CDT) Glucose, POC 251(H) 70 - 199 mg/dL POC Performer [id number] [facility] Blood 12/17/2024 1:05 PM CDT 12/17/2024 1:05 PM CDT Theresa Lamb MD LAB POCT ORDERABLES - DEVICE Final Result Performing Organization Address City/[facility] Co de Phone Number JEFF BRODERICK [address] Department [place] [address] * POCT glucose (12/17/2024 8:06 AM CDT) Glucose, POC 139 70 - 199 mg/dL POC Performer [id number] JEFF Blood 12/17/2024 8:06 AM CDT 12/17/2024 8:06 AM CDT Theresa Lamb MD LAB POCT ORDERABLES - DEVICE Final Result Performing Organization Address [facility] Co de Phone Number JEFF BRODERICK [address] [address] Department [place] [address] * XR Chest 1 View - in [...] in place. The tip of a retracted [facility] catheter is in the superior vena cava. [...] in place. The tip of a retracted [facility] catheter is in the superior vena cava. Borderline cardiomegaly with aortic atherosclerosis. No failure. No active infiltrate. IMPRESSION: Findings as described above. Electronically signed by: Zenon Wing M.D. Jose Vega TAXONOMIST IMG XR PROCEDURES Final Res ult * [...] NP LAB BLOOD ORDERABLES Final Result JEFF [address] [address] Department [place] [address] * (ABNORMAL) CBC without differential (12/17/2024 6:02 AM CDT) WBC 10.37(H) 3.80 - 9.90 K/cumm Hgb 9.6(L) 13.0 - 17.5 g/dL [facility] Hct 29.1(L) 38.9 - 50.3 % [facility] Plt 135(L) 150 - 400 K/cumm [facility] MPV 9.2 9.1 - 12.[address] [facility] RBC 3.33(L) 4.30 - 5.80 M/cumm [facility] MCV 87.4 81.3 - 96.[address] [facility] MCH 28.8 27.1 - 33.[address] [facility] MCHC 33.0 32.3 - 35.7 g/dL [facility] RDW CV 14.0 11.1 - 14.9 % [facility] RDW SD 44.2 35.7 - 48.[address] [facility] NRBC abs 0.00 0.00 - 0.01 K/cumm [facility] Blood 12/17/2024 6:02 AM CDT 12/17/2024 6:25 AM CDT Jose Vega TAXONOMIST LAB BLOOD ORDERABLES Final Result [facility] [address] [place] [address] * (ABNORMAL) Phosphorus (12/17/2024 6:02 AM CDT) Phosphorus, pl 1.8(L) 2.3 - 4.5 mg/dL Blood 12/17/2024 6:02 AM CDT 12/17/2024 6:23 AM CDT Fran Mcgrath TAXONOMIST LAB BLOOD ORDERABLES Fin al Result [facility] [place] [address] [address] [facility] [address] [place] [address] * Magnesium (12/17/2024 6:02 AM CDT) Magnesium 2.2 1.4 - 2.5 mg/dL Blood 12/17/2024 6:02 AM CDT 12/17/2024 6:23 AM CDT Jose Vega NP LAB BLOOD ORDERABLES Final Result JEFF BRODERICK [address] [address] Department [place] [address] * (ABNORMAL) Basic metabolic panel (12/17/2024 6:02 AM CDT) Sodium 139 135 - 145 mmol/L Potassium, pl 3.4 3.3 - 4.9 mmol/L [facility] Chloride 105 97 - 110 mmol/L [facility] CH CO2 22 22 - 32 mmol/L [facility] CH Anion gap 12 2 - 15 mmol/L [facility] BUN 28(H) 6 - 25 mg/dL [facility] Creatinine 0.80 0.80 - 1.30 mg/dL [facility] Glucose 152 70 - 199 mg/dL [facility] Comment: Interpretive Data Fasting glucose >/= [...] 2022. Calcium 8.4(L) 8.5 - 10.3 mg/dL [facility] Blood 12/17/2024 6:02 AM CDT 12/17/2024 6:23 AM CDT Jose Vega NP LAB BLOOD ORDERABLES Final Result JEFF BRODERICK [address] Department [place] [address] * POCT glucose (12/17/2024 2:48 AM CDT) Glucose, POC 146 70 - 199 mg/dL POC Performer [id number] [facility] Blood 12/17/2024 2:48 AM CDT 12/17/2024 2:48 AM CDT Theresa Lamb MD LAB POCT ORDERABLES - DEVICE Final Result Performing Organization Address [facility] de Phone Number JEFF BRODERICK [address] [address] [facility] [employer] [place] [address] * (ABNORMAL) POCT glucose (12/16/2024 8:28 PM CDT) Glucose, POC 226(H) 70 - 199 mg/dL POC Performer [id number] [facility] CH Blood 12/16/2024 8:28 PM CDT 12/16/2024 8:28 PM CDT Theresa Lamb MD LAB POCT ORDERABLES - DEVICE Final Result Performing Organization Address [facility] de Phone Number JEFF BRODERICK [phone] [facility] [employer] [place] [address] * (ABNORMAL) POCT glucose (12/16/2024 4:36 PM CDT) Glucose, POC 269(H) 70 - 199 mg/dL POC Performer [id number] CERNER CH Blood 12/16/2024 4:36 PM CDT 12/16/2024 4:36 PM CDT Theresa Lamb MD LAB POCT ORDERABLES - DEVICE Final Result Performing Organization Address [facility] de Phone Number JEFF BRODERICK [phone] [facility] [employer] [place] [address] * (ABNORMAL) POCT glucose (12/16/2024 11:54 AM CDT) Glucose, POC 237(H) 70 - 199 mg/dL POC Performer [id number] CERNER CH Blood 12/16/2024 11:5 4 AM CDT 12/16/2024 11:54 AM CDT Theresa Lamb MD LAB POCT ORDERABLES - DEVICE Final Result Performing Organization Address City/[facility] Co de Phone Number JEFF BRODERICK [address] [address] Department [place] [address] * Critical Care (12/16/2024 8:03 AM CDT) Narrative Jostin rOdoñez MD - 12/16/2024 8:03 AM CDT Jostin [...] plan with the patient's team and other medical/business consultant staff. This time was in addition to and separate from care provided by other practitioners on this day of service. I spent time reviewing and interpreting data from bedside monitors, laboratory results, and imaging, I spent time discussing the management of this critically ill patient with consultants and the medical staff and I spent time documenting in the medical record Lesly Rossi TAXONOMIST IN CLINIC/BEDSIDE ORDERABLES Final Result * POCT glucose (12/16/2024 8:02 AM CDT) Glucose, POC 156 70 - 199 mg/dL POC Performer [id number] JEFF Blood 12/16/2024 8:02 AM CDT 12/16/2024 8:02 AM CDT Theresa Lamb MD LAB POCT ORDERABLES - DEVICE Final Result Performing Organization Address City/[facility]/ZIP Co de Phone Number SAMANTHAROGER BRODERICK [address] [address] Department [place] [address] * XR Chest 1 View - in [...] the chest. FINDINGS: The tip of the [facility] catheter is in the undivided main pulmonary [...] the chest. FINDINGS: The tip of the [facility] catheter is in the undivided main pulmonary artery. Left thoracostomy tube and mediastinal drain in place. Cardiomegaly with aortic atherosclerosis. No failure. Right basal subsegmental atelectasis with the remainder of the lungs being clear. IMPRESSION: Findings as described above. Electronically signed by: Zenon Wing M.D. Jose Vega TAXONOMIST IMG XR PROCEDURES Final Res ult * Oxyhemoglobin, pulmonary artery (12/16/2024 4:37 AM CDT) Oxyhemoglobin, PA 62.0 % Comment: Interpretive Data No reference range established. Current interpretive data was last revised 2019. Blood 12/16/2024 4:37 AM CDT 12/16/2024 4:40 AM CDT Fran Mcgrath TAXONOMIST LAB BLOOD ORDERABLES Fin al Result Performing Organization Address [facility] Co de Phone Number [facility] [address] [address] [facility] [employer] [place] [address] * (ABNORMAL) Blood gas, pulmonary artery (12/16/2024 4:37 AM CDT) pH, PA 7.39 Comment: Interpretive Data No reference range established. Current interpretive data was last revised 2019. pCO2, PA 37 mmHg JEFF Comment: Interpretive Data No reference range established. Current interpretive data was last revised 2019. pO2, PA 34(C) mmHg [facility] Comment: Critical result called to and read back by Gordon Puentes on 12/16/2024 04:45:13 CDT to Jeannie Lyles. Interpretive Data No reference range established. Current interpretive data was last revised 2019. HCO3, PA (Calculated) 22 mmol/L [facility] Comment: Interpretive Data No reference range established. Current interpretive data was last revised 2019. Base excess PA -2 mmol/L [facility] Comment: Interpretive Data No reference range established. Current interpretive data was last revised 2019. O2 Sat, PA (Measured) 64 % [facility] Comment: Interpretive Data No reference range established. Current interpretive data was last revised 2019. Blood 12/16/2024 4:37 AM CDT 12/16/2024 4:40 AM CDT Jose Vega TAXONOMIST LAB BLOOD ORDERABLES Final Result Performing Organization Address [facility]/ZIP Co de Phone Number [facility] [address] [address] [facility] [employer] [place] [address] * eGFR (12/16/2024 4:37 AM CDT) eGFR [...] LAB BLOOD ORDERABLES Final Result [facility] [address] Department [place] [address] * (ABNORMAL) CBC without differential (12/16/2024 4:37 AM CDT) WBC 12.90(H) 3.80 - 9.90 K/cumm Hgb 9.1(L) 13.0 - 17.5 g/dL [facility] Hct 28.0(L) 38.9 - 50.3 % [facility] Plt 99(L) 150 - 400 K/cumm [facility] MPV 9.1 9.1 - 12.[address] [facility] RBC 3.21(L) 4.30 - 5.80 M/cumm [facility] MCV 87.2 81.3 - 96.[address] [facility] MCH 28.3 27.1 - 33.[address] [facility] MCHC 32.5 32.3 - 35.7 g/dL [facility] RDW CV 14.0 11.1 - 14.9 % [facility] RDW SD 44.1 35.7 - 48.1 fL [facility] NRBC abs 0.00 0.00 - 0.01 K/cumm [facility] Blood 12/16/2024 4:37 AM CDT 12/16/2024 4:41 AM CDT Jose Vega TAXONOMIST LAB BLOOD ORDERABLES Final Result Performing Organization Address [facility]/ZIP Co de Phone Number JEFF [address] [address] [facility] [employer] [place] [address] * Phosphorus (12/16/2024 4:37 AM CDT) Pathologist [facility] Phosphorus, pl 2.3 2.3 - 4.5 mg/dL Blood 12/16/2024 4:37 AM CDT 12/16/2024 4:40 AM CDT Fran Mcgrath TAXONOMIST LAB BLOOD ORDERABLES Fin al Result Performing Organization Address [facility] Co de Phone Number JEFF [address] [address] [employer] [place] [address] * Magnesium (12/16/2024 4:37 AM CDT) Pathologist [facility] Magnesium 2.1 1.4 - 2.5 mg/dL Blood 12/16/2024 4:37 AM CDT 12/16/2024 4:40 AM CDT Jose Vega TAXONOMIST LAB BLOOD ORDERABLES Final Result Performing Organization Address [facility] Co de Phone Number JEFF [address] [address] [employer] [place] [address] * Basic metabolic panel (12/16/2024 4:37 AM CDT) Sodium 139 135 - 145 mmol/L Potassium, pl 3.5 3.3 - 4.9 mmol/L [facility] Chloride 107 97 - 110 mmol/L [facility] CO2 22 22 - 32 mmol/L [facility] Anion gap 10 2 - 15 mmol/L [facility] BUN 25 6 - 25 mg/dL [facility] Creatinine 0.81 0.80 - 1.30 mg/dL [facility] Glucose 132 70 - 199 mg/dL [facility] Comment: Interpretive Data Fasting glucose >/= [...] 2022. Calcium 8.6 8.5 - 10.3 mg/dL [facility] Blood 12/16/2024 4:37 AM CDT 12/16/2024 4:40 AM CDT us Jose Vega NP LAB BLOOD ORDERABLES Final Result JEFF BRODERICK [address] [address] Department [employer] [place], [place] [id number] * POCT glucose (12/16/2024 2:04 AM CDT) Glucose, POC 123 70 - 199 mg/dL POC Performer [id number] [facility] Blood 12/16/2024 2:04 AM CDT 12/16/2024 2:04 AM CDT us Theresa Lamb MD LAB POCT ORDERABLES - DEVICE Final Result JEFF BRODERICK [address] [address] Department of [employer] [place] [address] * POCT glucose (12/15/2024 11:03 PM CDT) Glucose, POC 98 70 - 199 mg/dL POC Performer [id number] [facility] Blood 12/15/2024 11:0 3 PM CDT 12/15/2024 11:03 PM CDT Theresa Lamb MD LAB POCT ORDERABLES - DEVICE Final Result Performing Organization Address [facility] Co de Phone Number JEFF BRODERICK [address] [address] [facility] [employer] [place] [address] * POCT glucose (12/15/2024 9:59 PM CDT) [facility] Signature Glucose, POC 102 70 - 199 mg/dL POC Performer [id number] [facility] Blood 12/15/2024 9:59 PM CDT 12/15/2024 9:59 PM CDT Theresa Lamb MD LAB POCT ORDERABLES - DEVICE Final Result Performing Organization Address [facility] de Phone Number JEFF BRODERICK [address] [address] [facility] [employer] [place] [address] * Critical Care (12/15/2024 9:01 PM CDT) Narrative Alexis Alicia MD - 12/15/2024 9:01 PM CDT Alexis Alicia MD 12/16/2024 6:05 AM Critical Care Performed by: Heri Tovar NP Authorized by: Heri Tovar NP CRITICAL CARE: Team: DELROY Shift: PM Level of Billing: Subsequent Hospital [...] plan with the patient's team and other medical/business consultant staff. This time was in addition to and separate from care provided by other practitioners on this day of service. Heri Tovar NP IN CLINIC/BEDSIDE ORDER BEATRIZ Final Result * POCT glucose (12/15/2024 8:53 PM CDT) Glucose, POC 105 70 - 199 mg/dL POC Performer [id number] [facility] Blood 12/15/2024 8:53 PM CDT 12/15/2024 8:53 PM CDT Theresa Lamb MD LAB POCT ORDERABLES - DEVICE Final Result Performing Organization Address [facility] Co de Phone Number JEFF BRODERICK [address] [address] [facility] [employer] [place], [place] [id number] * POCT glucose (12/15/2024 7:53 PM CDT) Glucose, POC 129 70 - 199 mg/dL POC Performer [id number] [facility] Blood 12/15/2024 7:53 PM CDT 12/15/2024 7:53 PM CDT Theresa Lamb MD LAB POCT ORDERABLES - DEVICE Final Result Performing Organization Address [facility] de Phone Number JEFF BRODERICK [address] [address] [facility] [employer] [place] [address] * POCT glucose (12/15/2024 6:48 PM CDT) Glucose, POC 157 70 - 199 mg/dL POC Performer [id number] [facility] Blood 12/15/2024 6:48 PM CDT 12/15/2024 6:48 PM CDT Theresa Lamb MD LAB POCT ORDERABLES - DEVICE Final Result Performing Organization Address [facility] de Phone Number JEFF BRODERICK [address] [address] [facility] [employer] [place] [address] * (ABNORMAL) POCT glucose (12/15/2024 5:50 PM CDT) Glucose, POC 210(H) 70 - 199 mg/dL POC Performer [id number] [facility] Blood 12/15/2024 5:50 PM CDT 12/15/2024 5:50 PM CDT Theresa Lamb MD LAB POCT ORDERABLES - DEVICE Final Result Performing Organization Address [facility] Co de Phone Number JEFF BRODERICK [address] [address] [facility] [employer] [place], [place] [id number] * POCT glucose (12/15/2024 4:49 PM CDT) Glucose, POC 141 70 - 199 mg/dL POC Performer [id number] [facility] Blood 12/15/2024 4:49 PM CDT 12/15/2024 4:49 PM CDT Theresa Lamb MD LAB POCT ORDERABLES - DEVICE Final Result Performing Organization Address [facility] de Phone Number JEFF BRODERICK [address] [address] [facility] [employer] [place] [address] * POCT glucose (12/15/2024 3:50 PM CDT) Glucose, POC 130 70 - 199 mg/dL POC Performer [id number] [facility] Blood 12/15/2024 3:50 PM CDT 12/15/2024 3:50 PM CDT Theresa Lamb MD LAB POCT ORDERABLES - DEVICE Final Result Performing Organization Address [facility] Co de Phone Number JEFF BRODERICK [address] [address] [facility] [employer] [place] [address] * POCT glucose (12/15/2024 2:52 PM CDT) Glucose, POC 130 70 - 199 mg/dL POC Performer [id number] [facility] Blood 12/15/2024 2:52 PM CDT 12/15/2024 2:52 PM CDT us Theresa Lamb MD LAB POCT ORDERABLES - DEVICE Final Result Performing Organization Address City/[facility] Phone Number JEFF [address] [facility] Department [place] [address] * Critical Care (12/15/2024 1:57 PM CDT) [...] plan with the ICU team and other medical/business consultant staff, making frequent assessments and decisions [...] * POCT glucose (12/15/2024 1:49 PM CDT) [facility] Signature Glucose, POC 133 70 - 199 mg/dL POC Performer [id number] JEFF BRODERICK Blood 12/15/2024 1:49 PM CDT 12/15/2024 1:49 PM CDT Theresa Lamb MD LAB POCT ORDERABLES - DEVICE Final Result JEFF BRODERICK [address] [address] [facility] [employer] [place] [address] * POCT glucose (12/15/2024 12:26 PM CDT) Glucose, POC 138 70 - 199 mg/dL POC Performer [id number] [facility] Blood 12/15/2024 12:2 6 PM CDT 12/15/2024 12:26 PM CDT Theresa Lamb MD LAB POCT ORDERABLES - DEVICE Final Result Performing Organization Address [facility] Co de Phone Number JEFF BRODERICK [address] [address] [facility] [employer] [place] [address] * POCT glucose (12/15/2024 11:28 AM CDT) Glucose, POC 144 70 - 199 mg/dL POC Performer [id number] [facility] Blood 12/15/2024 11:2 8 AM CDT 12/15/2024 11:28 AM CDT Theresa Lamb MD LAB POCT ORDERABLES - DEVICE Final Result Performing Organization Address [facility] Co de Phone Number JEFF BRODERICK [address] [address] [facility] [employer] [place] [address] * POCT glucose (12/15/2024 10:32 AM CDT) Glucose, POC 144 70 - 199 mg/dL POC Performer [id number] [facility] Blood 12/15/2024 10:3 2 AM CDT 12/15/2024 10:32 AM CDT Theresa Lamb MD LAB POCT ORDERABLES - DEVICE Final Result Performing Organization Address [facility]/ZIP Co de Phone Number JEFF BRODERICK [address] [address] [employer] [place] [address] * POCT glucose (12/15/2024 8:34 AM CDT) Glucose, POC 137 70 - 199 mg/dL POC Performer [id number] [facility] Blood 12/15/2024 8:34 AM CDT 12/15/2024 8:34 AM CDT Theresa Lamb MD LAB POCT ORDERABLES - DEVICE Final Result Performing Organization Address [facility] Co de Phone Number JEFF BRODERICK [address] [address] Department of [employer] [place] [address] * ECG 12 lead (12/15/2024 7:15 AM CDT) 12/15/2024 7:15 AM CDT Narrative [facility] - 12/15/2024 9:57 AM CDT Vent Rate: 85 bpm RR Interval: 704 msec MD Interval: 199 msec QRS Duration: 102 msec QT Interval: 372 msec QTC Interval: 414 msec P-R-T [place]: 7 - 48 - 47 degrees IMPRESSION: SINUS RHYTHM POSSIBLE RIGHT VENTRICULAR CONDUCTION DELAY [RSR (QR) IN V1/V2] ABNORMAL ECG Electronically Signed By: Jerad Jaquez MD Theresa Lamb MD ECG ORDERABLES Final Result Performing Organization Address [facility] Co de Phone Number [facility] * POCT glucose (12/15/2024 6:16 AM CDT) Glucose, POC 140 70 - 199 mg/dL POC Performer [id number] [facility] Blood 12/15/2024 6:16 AM CDT 12/15/2024 6:16 AM CDT Theresa Lamb MD LAB POCT ORDERABLES - DEVICE Final Result Performing Organization Address [facility] Co de Phone Number JEFF BRODERICK [address] Department of [employer] [place] [address] * XR Chest 1 View - in [...] has been removed. The tip of the [facility] catheter is in the undivided main pulmonary [...] has been removed. The tip of the [facility] catheter is in the undivided main pulmonary artery. Left thoracostomy tube and mediastinal drain in place. Right basal subsegmental atelectasis with the remainder of the lungs being clear. Cardiomegaly with no failure. IMPRESSION: Findings as described above. Electronically signed by: Zenon Wing M.D. us Jose Vega TAXONOMIST IMG XR PROCEDURES Final Res ult * POCT glucose (12/15/2024 5:16 AM CDT) Glucose, POC 107 70 - 199 mg/dL POC Performer [id number] JEFF Blood 12/15/2024 5:16 AM CDT 12/15/2024 5:16 AM CDT Theresa Lamb MD LAB POCT ORDERABLES - DEVICE Final Result Performing Organization Address City/[facility]/ZIP Co de Phone Number JEFF BRODERICK [address] [address] [facility] [employer] [place] [address] * POCT glucose (12/15/2024 4:20 AM CDT) Pathologist [facility] Glucose, POC 99 70 - 199 mg/dL POC Performer [id number] [facility] Blood 12/15/2024 4:20 AM CDT 12/15/2024 4:20 AM CDT Theresa Lamb MD LAB POCT ORDERABLES - DEVICE Final Result Performing Organization Address [facility] de Phone Number JEFF BRODERICK [address] [address] [employer] [place] [address] * (ABNORMAL) CBC without differential (12/15/2024 3:34 AM CDT) Pathologist [facility] WBC 10.84(H) 3.80 - 9.90 K/cumm Hgb 10.2(L) 13.0 - 17.5 g/dL [facility] Hct 31.1(L) 38.9 - 50.3 % [facility] Plt 122(L) 150 - 400 K/cumm [facility] MPV 8.8(L) 9.1 - 12.[address] [facility] RBC 3.59(L) 4.30 - 5.80 M/cumm [facility] MCV 86.6 81.3 - 96.4 fL [facility] MCH 28.4 27.1 - 33.3 pg [facility] MCHC 32.8 32.3 - 35.7 g/dL [facility] RDW CV 13.6 11.1 - 14.9 % [facility] RDW SD 42.3 35.7 - 48.1 fL [facility] NRBC abs 0.00 0.00 - 0.01 K/cumm [facility] Blood 12/15/2024 3:34 AM CDT 12/15/2024 3:34 AM CDT Jose Vega TAXONOMIST LAB BLOOD ORDERABLES Final Result Performing Organization Address [facility] de Phone Number JEFF [address] [facility] [employer] [place] [address] * POCT glucose (12/15/2024 3:14 AM CDT) Glucose, POC 108 70 - 199 mg/dL POC Performer [id number] JEFF Blood 12/15/2024 3:14 AM CDT 12/15/2024 3:14 AM CDT Theresa Lamb MD LAB POCT ORDERABLES - DEVICE Final Result Performing Organization Address [facility] Phone Number JEFF [address] [address] [facility] [employer] [place] [address] * Oxyhemoglobin, pulmonary artery (12/15/2024 2:46 AM CDT) Oxyhemoglobin, PA 66.1 % Comment: Interpretive Data No reference range established. Current interpretive data was last revised 2019. Blood 12/15/2024 2:46 AM CDT 12/15/2024 3:30 AM CDT Fran Mcgrath TAXONOMIST LAB BLOOD ORDERABLES Fin al Result Performing Organization Address [facility] de Phone Number JEFF [address] [address] [facility] [employer] [place] [address] * (ABNORMAL) Blood gas, pulmonary artery (12/15/2024 2:46 AM CDT) pH, PA 7.38 Comment: Interpretive Data No reference range established. Current interpretive data was last revised 2019. pCO2, PA 43 mmHg JEFF Comment: Interpretive Data No reference range established. Current interpretive data was last revised 2019. pO2, PA 37(C) mmHg [facility] Comment: Critical result called to and read back by Tiffany Byers on 12/15/2024 03:34:54 CDT to Marcin Bunch. Interpretive Data No reference range established. Current interpretive data was last revised 2019. HCO3, PA (Calculated) 24 mmol/L JEFF Comment: Interpretive Data No reference range established. Current interpretive data was last revised 2019. Base excess PA 0 mmol/L JEFF Comment: Interpretive Data No reference range established. Current interpretive data was last revised 2019. O2 Sat, PA (Measured) 67 % JEFF Comment: Interpretive Data No reference range established. Current interpretive data was last revised 2019. Blood 12/15/2024 2:46 AM CDT 12/15/2024 3:30 AM CDT Jose Vega NP LAB BLOOD ORDERABLES Final Result Performing Organization Address [facility] Co de Phone Number JEFF [address] [address] [employer] [place] [address] * (ABNORMAL) Calcium, ionized, whole blood (12/15/2024 2:46 AM CDT) [facility] Ca, ionized, bld 5.64(H) 4.50 - 5.10 mg/dL Blood 12/15/2024 2:46 AM CDT 12/15/2024 3:30 AM CDT Jose Vega NP LAB BLOOD ORDERABLES Final Result Performing Organization Address City/[facility] Co de Phone Number JEFF [address] [address] Department of [employer] [place] [address] * eGFR (12/15/2024 2:46 AM CDT) [facility] eGFR >90 >=60 mL/min/1. 73 m2 [...] CDT 12/15/2024 3:30 AM CDT Jose Vega TAXONOMIST LAB BLOOD ORDERABLES Final Result Performing Organization Address [facility] Co de Phone Number SAMANTHAROGER BRODERICK [address] [address] Department [employer] [place] [address] * Phosphorus (12/15/2024 2:46 AM CDT) Phosphorus, pl 2.5 2.3 - 4.5 mg/dL Blood 12/15/2024 2:46 AM CDT 12/15/2024 3:30 AM CDT Fran Mcgrath TAXONOMIST LAB BLOOD ORDERABLES Fin al Result Performing Organization Address [facility] [place] [address] [address] Department of [employer] [place] [address] * Magnesium (12/15/2024 2:46 AM CDT) Magnesium 2.2 1.4 - 2.5 mg/dL Blood 12/15/2024 2:46 AM CDT 12/15/2024 3:30 AM CDT Jose Vega TAXONOMIST LAB BLOOD ORDERABLES Final Result JEFF BRODERICK [address] [address] Department [place] [address] * (ABNORMAL) Basic metabolic panel (12/15/2024 2:46 AM CDT) Sodium 144 135 - 145 mmol/L Potassium, pl 3.7 3.3 - 4.9 mmol/L [facility] Chloride 111(H) 97 - 110 mmol/L [facility] CO2 24 22 - 32 mmol/L [facility] Anion gap 9 2 - 15 mmol/L [facility] BUN 19 6 - 25 mg/dL [facility] Creatinine 0.76(L) 0.80 - 1.30 mg/dL [facility] Glucose 109 70 - 199 mg/dL [facility] Comment: [...] 2022. Calcium 9.8 8.5 - 10.3 mg/dL [facility] Blood 12/15/2024 2:46 AM CDT 12/15/2024 3:30 AM CDT Jose Vega TAXONOMIST LAB BLOOD ORDERABLES Final Result Performing Organization Address City/[facility]/ZIP Co de Phone Number JEFF BRODERICK [address] [address] Department [place] [address] * POCT glucose (12/15/2024 2:23 AM CDT) Glucose, POC 130 70 - 199 mg/dL POC Performer [id number] [facility] Blood 12/15/2024 2:23 AM CDT 12/15/2024 2:23 AM CDT Theresa Lamb MD LAB POCT ORDERABLES - DEVICE Final Result Performing Organization Address [facility] Co de Phone Number JEFF BRODERICK [address] [address] [facility] [employer] [place] [address] * POCT glucose (12/15/2024 12:59 AM CDT) Glucose, POC 136 70 - 199 mg/dL POC Performer [id number] [facility] Blood 12/15/2024 12:5 9 AM CDT 12/15/2024 12:59 AM CDT Theresa Lamb MD LAB POCT ORDERABLES - DEVICE Final Result Performing Organization Address [facility] de Phone Number JEFF BRODERICK [address] [address] [facility] [employer] [place] [address] * POCT glucose (12/14/2024 11:53 PM CDT) Glucose, POC 168 70 - 199 mg/dL POC Performer [id number] [facility] Blood 12/14/2024 11:5 3 PM CDT 12/14/2024 11:53 PM CDT Theresa Lamb MD LAB POCT ORDERABLES - DEVICE Final Result Performing Organization Address [facility] Co de Phone Number JEFF BRODERICK [address] [address] [facility] [employer] [place] [address] * (ABNORMAL) Blood gas, arterial (12/14/2024 11:50 [...] Art (Measured) 96(H) 90 - 95 % [facility] Blood 12/14/2024 11:5 0 PM CDT 12/14/2024 11:56 PM CDT Theresa Lamb MD LAB BLOOD ORDERABLES Final R esult Performing Organization Address City/[facility] Co de Phone Number JEFF [address] [place] [address] * (ABNORMAL) CBC without differential (12/14/2024 11:12 PM CDT) Pathologist [facility] WBC 12.50(H) 3.80 - 9.90 K/cumm Hgb 10.5(L) 13.0 - 17.5 g/dL [facility] Hct 31.3(L) 38.9 - 50.3 % [facility] Plt 166 150 - 400 K/cumm [facility] MPV 8.5(L) 9.1 - 12.[address] [facility] RBC 3.68(L) 4.30 - 5.80 M/cumm [facility] MCV 85.1 81.3 - 96.[address] [facility] MCH 28.5 27.1 - 33.3 pg [facility] MCHC 33.5 32.3 - 35.7 g/dL [facility] RDW CV 13.4 11.1 - 14.9 % [facility] RDW SD 41.5 35.7 - 48.[address] [facility] NRBC abs 0.00 0.00 - 0.01 K/cumm [facility] Blood 12/14/2024 11:1 2 PM CDT 12/14/2024 11:12 PM CDT Theresa Lamb MD LAB BLOOD ORDERABLES Final R esult Performing Organization Address City/[facility]/ZIP Co de Phone Number JEFF BRODERICK [address] Department of [employer] [place], [place] [id number] * POCT glucose (12/14/2024 11:03 PM CDT) [facility] Glucose, POC 145 70 - 199 mg/dL POC Performer [id number] [facility] Blood 12/14/2024 11:0 3 PM CDT 12/14/2024 11:03 PM CDT Theresa Lamb MD LAB POCT ORDERABLES - DEVICE Final Result Performing Organization Address City/[facility]/ZIP Co de Phone Number JEFF [address] Department [employer] [place] [address] * (ABNORMAL) Calcium, ionized, whole blood (12/14/2024 10:53 PM CDT) [facility] Ca, ionized, bld 4.48(L) 4.50 - 5.10 mg/dL Blood 12/14/2024 10:5 3 PM CDT 12/14/2024 11:11 PM CDT Theresa Lamb MD LAB BLOOD ORDERABLES Final R esult Performing Organization Address [facility] Co de Phone Number JEFF [address] Department of [employer] [place] [address] * eGFR (12/14/2024 10:53 PM CDT) [facility] eGFR >90 >=60 mL/min/1. 73 m2 [...] ORDERABLES Final R esult Performing Organization Address [facility] Co de Phone Number JEFF BRODERICK [address] [employer] [place] [address] * Type and screen (12/14/2024 10:53 PM CDT) Antonio, indirect Negative ABO Rh A Negative [facility] Blood 12/14/2024 10:5 3 PM CDT 12/14/2024 11:16 PM CDT Narrative [facility] - 12/15/2024 12:05 AM CDT Has the patient had Daratumumab or Isatuximab in the past 6 months?->Unknown us Kristal Edward TAXONOMIST LAB BLOOD BANK TEST ORDER BEATRIZ Final Result Performing Organization Address [facility] de Phone Number JEFF BRODERICK [address] [employer] [place] [address] * Magnesium (12/14/2024 10:53 PM CDT) Magnesium 2.3 1.4 - 2.5 mg/dL Blood 12/14/2024 10:5 3 PM CDT 12/14/2024 11:11 PM CDT Theresa Lamb MD LAB BLOOD ORDERABLES Final R esult Performing Organization Address [facility] Co de Phone Number JEFF BRODERICK [address] [employer] [place] [address] * (ABNORMAL) Basic metabolic panel (12/14/2024 10:53 PM CDT) Sodium 143 135 - 145 mmol/L Potassium, pl 4.2 3.3 - 4.9 mmol/L [facility] Chloride 111(H) 97 - 110 mmol/L [facility] CO2 21(L) 22 - 32 mmol/L [facility] Anion gap 11 2 - 15 mmol/L [facility] BUN 19 6 - 25 mg/dL [facility] Creatinine 0.70(L) 0.80 - 1.30 mg/dL [facility] Glucose 156 70 - 199 mg/dL [facility] Comment: Interpretive Data Fasting glucose >/= 126 [...] 2022. Calcium 8.3(L) 8.5 - 10.3 mg/dL [facility] Blood 12/14/2024 10:5 3 PM CDT 12/14/2024 11:11 PM CDT Theresa Lamb MD LAB BLOOD ORDERABLES Final R esult Performing Organization Address City/[facility]/ZIP Co de Phone Number JEFF DAVIE [address] [place] [address] * POCT glucose (12/14/2024 10:12 PM CDT) [facility] Signature Glucose, POC 132 70 - 199 mg/dL POC Performer [id number] [facility] Blood 12/14/2024 10:1 2 PM CDT 12/14/2024 10:12 PM CDT Theresa Lamb MD LAB POCT ORDERABLES - DEVICE Final Result SAMANTHAROGER BRODERICK [address] [employer] [place] [address] * Critical Care (12/14/2024 9:57 PM CDT) Narrative Alexis Alicia MD - 12/14/2024 9:57 PM CDT Alexis Alicia MD 12/15/2024 6:26 AM Critical Care Performed by: Heri Tovar NP Authorized by: Heri Tovar NP CRITICAL CARE: Team: DELROY Shift: PM Level of Billing: Critical Care [...] plan with the ICU team and other medical/business consultant staff, making frequent assessments and decisions [...] * POCT glucose (12/14/2024 9:11 PM CDT) [facility] Glucose, POC 126 70 - 199 mg/dL POC Performer [id number] JEFF BRODERICK Blood 12/14/2024 9:11 PM CDT 12/14/2024 9:11 PM CDT us Theresa Lamb MD LAB POCT ORDERABLES - DEVICE Final Result JEFF [address] Department [place] [address] * POCT glucose (12/14/2024 8:09 PM CDT) [facility] Glucose, POC 124 70 - 199 mg/dL POC Performer [id number] [facility] Blood 12/14/2024 8:09 PM CDT 12/14/2024 8:09 PM CDT Theresa Lamb MD LAB POCT ORDERABLES - DEVICE Final Result Performing Organization Address [facility] Co de Phone Number JEFF BRODERICK [address] [employer] [place] [address] * POCT glucose (12/14/2024 7:00 PM CDT) [facility] Glucose, POC 116 70 - 199 mg/dL POC Performer [id number] [facility] Blood 12/14/2024 7:00 PM CDT 12/14/2024 7:00 PM CDT Theresa Lamb MD LAB POCT ORDERABLES - DEVICE Final Result Performing Organization Address [facility] Co de Phone Number SAMANTHAROGER BRODERICK [address] [employer] [place] [address] * Calcium, ionized, whole blood (12/14/2024 6:10 PM CDT) [facility] Ca, ionized, bld 4.93 4.50 - 5.10 mg/dL Blood 12/14/2024 6:10 PM CDT 12/14/2024 6:14 PM CDT Jose Vega TAXONOMIST LAB BLOOD ORDERABLES Final Result Performing Organization Address City/[facility] Co de Phone Number JEFF BRODERICK [address] [facility] [employer] [place] [address] * eGFR (12/14/2024 6:10 PM CDT) [facility] eGFR >90 >=60 mL/min/1. 73 m2 [...] BLOOD ORDERABLES Final Result Performing Organization Address [facility] Co de Phone Number JEFF BRODERICK [address] Department [employer] [place] [address] * aPTT (12/14/2024 6:10 PM CDT) Pathologist [facility] aPTT 35 28 - 38 sec Comment: Interpretive Data Heparin therapeutic range: 66.0 - 100.0 seconds. Range based on correlation with therapeutic heparin activity range of 0.3 - 0.7 Units/mL. Current interpretive data was last revised on 2023. Blood 12/14/2024 6:10 PM CDT 12/14/2024 6:16 PM CDT Jose Vega NP LAB BLOOD ORDERABLES Final Result Performing Organization Address City/[facility]/[place] [address] [address] Department [employer] [place], [place] [phone] * (ABNORMAL) Protime-INR (12/14/2024 6:10 PM CDT) PT 15.8(H) 9.7 - 13.0 sec INR 1.45(H) 0.90 - 1.[address] [facility] Comment: Interpretive data Oral anticoagulant therapeutic ranges: Venous thromboembolism prophylaxis or treatment: 2.0-3.0 CARDIOLOGY Standard range: 2.0-3.0 High-intensity range: 2.5-3.5 Refer to indication-specific guidelines for appropriate target ranges for prosthetic heart valve replacement. Current interpretive data was last revised on 2019. Blood 12/14/2024 6:10 PM CDT 12/14/2024 6:16 PM CDT Jose Vega NP LAB BLOOD ORDERABLES Final Result JEFF [address] Department [place] [address] * (ABNORMAL) CBC without differential (12/14/2024 6:10 PM CDT) WBC 18.46(H) 3.80 - 9.90 K/cumm Hgb 10.7(L) 13.0 - 17.5 g/dL [facility] Hct 31.5(L) 38.9 - 50.3 % [facility] Plt 176 150 - 400 K/cumm [facility] MPV 8.8(L) 9.1 - 12.[address] [facility] RBC 3.72(L) 4.30 - 5.80 M/cumm [facility] MCV 84.7 81.3 - 96.[address] [facility] MCH 28.8 27.1 - 33.[address] [facility] MCHC 34.0 32.3 - 35.7 g/dL [facility] RDW CV 13.2 11.1 - 14.9 % [facility] RDW SD 41.1 35.7 - 48.[address] [facility] NRBC abs 0.00 0.00 - 0.01 K/cumm [facility] Blood 12/14/2024 6:10 PM CDT 12/14/2024 6:16 PM CDT Jose Fran Lookeba TAXONOMIST LAB BLOOD ORDERABLES Final Result Performing Organization Address [facility]/ZIP Co de Phone Number JEFF BRODERICK [address] [address] [facility] [employer] [place] [address] * Phosphorus (12/14/2024 6:10 PM CDT) Pathologist [facility] Phosphorus, pl 3.0 2.3 - 4.5 mg/dL Blood 12/14/2024 6:10 PM CDT 12/14/2024 6:14 PM CDT Fran Mcgrath TAXONOMIST LAB BLOOD ORDERABLES Fin al Result Performing Organization Address [facility] Co de Phone Number JEFF BRODERICK [address] [facility] [employer] [place] [address] * Magnesium (12/14/2024 6:10 PM CDT) Pathologist [facility] Magnesium 2.5 1.4 - 2.5 mg/dL Blood 12/14/2024 6:10 PM CDT 12/14/2024 6:14 PM CDT Jose Vega TAXONOMIST LAB BLOOD ORDERABLES Final Result Performing Organization Address [facility] de Phone Number JEFF BRODERICK [address] [employer] [place] [address] * (ABNORMAL) Blood gas, arterial (12/14/2024 6:10 PM CDT) Pathologist [facility] pH, Art 7.40 7.35 - 7.45 PCO2, [...] CDT 12/14/2024 6:14 PM CDT Jose Vega TAXONOMIST LAB BLOOD ORDERABLES Final Result JEFF BRODERICK [address] Department [employer] [place] [address] * (ABNORMAL) Basic metabolic panel (12/14/2024 6:10 PM CDT) Sodium 142 135 - 145 mmol/L Potassium, pl 4.3 3.3 - 4.9 mmol/L [facility] Chloride 112(H) 97 - 110 mmol/L [facility] CO2 19(L) 22 - 32 mmol/L [facility] Anion gap 11 2 - 15 mmol/L [facility] BUN 19 6 - 25 mg/dL [facility] Creatinine 0.73(L) 0.80 - 1.30 mg/dL [facility] Glucose 143 70 - 199 mg/dL [facility] Comment: [...] 2022. Calcium 8.0(L) 8.5 - 10.3 mg/dL [facility] Blood 12/14/2024 6:10 PM CDT 12/14/2024 6:14 PM CDT Jose Vega TAXONOMIST LAB BLOOD ORDERABLES Final Result Performing Organization Address City/[facility]/ZIP Co de Phone Number JEFF BRODERICK [address] Department [employer] [place] [address] * XR Chest 1 View (12/14/2024 6:08 [...] plan with the ICU team and other medical/business consultant staff, making frequent assessments and decisions [...] 133 70 - 199 mg/dL POC Performer [id number] [facility] Blood 12/14/2024 5:50 PM CDT 12/14/2024 5:50 PM CDT us Theresa Lamb MD LAB POCT ORDERABLES - DEVICE Final Result [facility] [address] Department [place] [address] * (ABNORMAL) POC Blood Gas and Chemistries, [...] ORDERABLES - DEVICE Final Result JEFF BRODERICK [address] [address] * POC Activated Clotting Time, High Range (12/14/2024 4:26 PM CDT) ACT 96 87 - 138 sec POC Performer [id number] [facility] Blood 12/14/2024 4:26 PM CDT 12/14/2024 4:26 PM CDT Theresa Lamb MD LAB BLOOD ORDERABLES Final R esult JEFF BRODERICK [address] [employer] [place] [address] * (ABNORMAL) POC Activated Clotting Time, High Range (12/14/2024 3:54 PM CDT) ACT 516(H) 87 - 138 sec POC Performer [id number] [facility] Blood 12/14/2024 3:54 PM CDT 12/14/2024 3:54 PM CDT Theresa Lamb MD LAB BLOOD ORDERABLES Final R esult JEFF BRODERICK [address] Department [place] [address] * (ABNORMAL) POC Blood Gas and Chemistries, [...] ORDERABLES - DEVICE Final Result JEFF BRODERICK [address] [employer] [place] [address] * (ABNORMAL) POC Activated Clotting Time, High Range (12/14/2024 3:38 PM CDT) Pathologist [facility] ACT 583(H) 87 - 138 sec POC Performer [id number] [facility] Blood 12/14/2024 3:38 PM CDT 12/14/2024 3:38 PM CDT Theresa Lamb MD LAB BLOOD ORDERABLES Final R esult Performing Organization Address City/State/[facility] Co de Phone Number JEFF BRODERICK [address] [employer] [place] [address] * Platelet count (12/14/2024 3:24 PM CDT) [facility] Plt 172 150 - 400 K/cumm Blood 12/14/2024 3:24 PM CDT 12/14/2024 3:29 PM CDT Theresa Lamb MD LAB BLOOD ORDERABLES Final R esult Performing Organization Address City/[facility] Co de Phone Number JEFF BRODERICK [address] [address] [facility] [employer] [place] [address] * (ABNORMAL) POC Blood Gas and Chemistries, Arterial - (12/14/2024 3:13 PM CDT) [facility] pH, Art POC 7.40 7.35 - 7.45 [...] - DEVICE Final Result Performing Organization Address [facility]/ZIP Co de Phone Number JEFF BRODERICK [address] [employer] [place] [address] * (ABNORMAL) POC Activated Clotting Time, High Range (12/14/2024 3:11 PM CDT) ACT 640(H) 87 - 138 sec POC Performer [id number] [facility] Blood 12/14/2024 3:11 PM CDT 12/14/2024 3:11 PM CDT Theresa Lamb MD LAB BLOOD ORDERABLES Final R esult JEFF BRODERICK [address] Department [employer] [place] [address] * (ABNORMAL) POC Activated Clotting Time, High Range (12/14/2024 2:34 PM CDT) ACT 547(H) 87 - 138 sec POC Performer [id number] [facility] Blood 12/14/2024 2:34 PM CDT 12/14/2024 2:34 PM CDT us Theresa Lamb MD LAB BLOOD ORDERABLES Final R esult [address] [place] [address] * (ABNORMAL) POC Blood Gas and Chemistries, [...] POCT ORDERABLES - DEVICE Final Result JEFF [address] Department [employer] [place] [address] * (ABNORMAL) POC Blood Gas and Chemistries, [...] ORDERABLES - DEVICE Final Result JEFF BRODERICK [address] Department [place] [address] * (ABNORMAL) POC Activated Clotting Time, High Range (12/14/2024 1:48 PM CDT) ACT 738(H) 87 - 138 sec POC Performer [id number] [facility] Blood 12/14/2024 1:48 PM CDT 12/14/2024 1:48 PM CDT Theresa Lamb MD LAB BLOOD ORDERABLES Final R esult JEFF BRODERICK [address] Department [place] [address] * (ABNORMAL) POC Blood Gas and Chemistries, [...] ORDERABLES - DEVICE Final Result JEFF BRODERICK [address] Department [place] [address] * (ABNORMAL) POC Activated Clotting Time, High Range (12/14/2024 1:12 PM CDT) ACT 775(H) 87 - 138 sec POC Performer [id number] [facility] Blood 12/14/2024 1:12 PM CDT 12/14/2024 1:12 PM CDT us Theresa Lamb MD LAB BLOOD ORDERABLES Final R esult JEFF BRODERICK [address] Department [place] [address] * (ABNORMAL) POC Blood Gas and Chemistries, [...] Hb, POC 14.0 13.0 - 17.5 g/dL [facility] Blood 12/14/2024 12:1 5 PM CDT 12/14/2024 12:15 PM CDT us Theresa Lamb MD LAB POCT ORDERABLES - DEVICE Final Result JEFF [address] [facility] Department [place] [address] * GABI (12/14/2024 12:09 PM CDT) Anatomical Region Laterality Modality Other Narrative 12/14/2024 12:09 PM CDT Neeraj Craft MD 12/14/2024 12:10 PM GABI Date/time: 12/14/2024 12:09 PM Staff: Supervising anesthesiologist: Neeraj Craft MD Performed by: Anesthesiologist: Neeraj Craft MD Preprocedure checklist: patient identified, procedure contraindications [...] inferior: hypokinetic 16- Apical septal: hypokinetic 17- [place]: hypokinetic Valves: Aortic Valve: Annulus: normal Leaflet [...] 101 87 - 138 sec POC Performer [id number] JEFF BRODERICK Blood 12/14/2024 12:0 6 PM CDT 12/14/2024 12:06 PM CDT us Theresa Lamb MD LAB BLOOD ORDERABLES Final R esult JEFF [address] [facility] Department [place] [address] * BW AN SHEATH INTRODUCER [...] line with maximal sterile barrier technique, Ernie [facility] student placed central line under direct supervision us Neeraj Craft MD ANESTHESIA ORDERABLES Final Resu lt * MD AN ELECTIVE ENDOTRACHEAL AIRWAY (12/14/2024 11:51 AM [...] well with no complications Additional comments: Robbi CARRIZALESS placed A line under direct supervision us Neeraj Craft MD ANESTHESIA ORDERABLES Edited Res ult - Final * Prepare RBC: 4 Units (12/14/2024 9:02 AM CDT) Product code [id number] [facility] Unit Number [id number] 8-5 [facility] Product Blood Type ANEG [facility] Dispense Status RETURNED [facility] Product code [id number] Unit Number [id number] 0-N [facility] Product Blood Type ANEG [facility] Dispense Status RETURNED [facility] Product code [id number] [facility] Unit Number [id number] 2-Z [facility] Product Blood Type ANEG [facility] Dispense Status RETURNED [facility] CH Product code [id number] [facility] Unit Number [id number] 6-C [facility] Product Blood Type ANEG [facility] Dispense Status RETURNED [facility] Blood 12/14/2024 9:02 AM CDT Narrative [facility] - 12/15/2024 1:18 AM CDT Specify Procedure:->CABG Are special requirements needed? (All products are leukoreduced and CMV- safe)- >No Date required:-[id number] LRRBC # of [id number] Reasons:-Hold for procedure (specify procedure)} us Kristal Edward TAXONOMIST BLOOD BANK PRODUCT ORDERA BLES Final Result Performing Organization Address City/[facility]/ZIP Co de Phone Number JEFF BRODERICK [address] [employer] [place], [place] [id number] * POCT glucose (12/14/2024 8:57 AM CDT) Glucose, POC 170 70 - 199 mg/dL POC Performer [id number] [facility] Blood 12/14/2024 8:57 AM CDT 12/14/2024 8:57 AM CDT us Theresa Lamb MD LAB POCT ORDERABLES - DEVICE Final Result Performing Organization Address City/[facility]/ZIP Co de Phone Number JEFF BRODERICK [address] Department [employer] [place] [address] * TRANSTHORACIC ECHO (TTE) COMPLETE W DOPPLER/CF WO CONTRAST (12/08/2024 8:39 AM CDT) Anatomical Region Laterality Modality Ultrasound 12/08/2024 7:56 AM CDT Narrative 12/08/2024 4:37 [place] [address] Echocardiogram Report Patient Name: SHAWN SHULTZ BRIAN : 1950 Study Date: 12/08/2024 7:56:17 AM Gender: M Tech: JELANI Location: OP Ref Provider: THERESA LAMB Height(Cm): 170 BSA: 2.08 Weight(Kg): 91.2 Heart Rate: 59 BP: 139/77 Quality: Good Order Provider: THERESA LAMB PROCEDURES: Echocardiographic Report: Transthoracic echocardiogram with complete 2D, M-Mode, and color Doppler examination. INDICATIONS: I25.10 Atherosclerotic heart disease of [place] coronary artery without angina pectoris. MEASUREMENTS: 2D/MM [...] regurgitation. Electronically Signed By: Sonu Campbell MD, FACC 12/08/2024 4:36:50 PM CDT Procedure Note Sonu Campbell MD - 12/08/2024 [place] [address] Echocardiogram Report Patient Name: SHAWN SHULTZ BRIAN : 1950 Study Date: 12/08/2024 7:56:17 AM Gender: M Tech: JELANI Location: OP Ref Provider: THERESA LAMB Height(Cm): 170 BSA: 2.08 Weight(Kg): 91.2 Heart Rate: 59 BP: 139/77 Quality: Good Order Provider: THERESA LAMB PROCEDURES: Echocardiographic Report: Transthoracic echocardiogram with complete 2D, M-Mode, and color Dopplerexamination. 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 MEASUREMENTS: 2D/MM Value [...] regurgitation. Electronically Signed By: Sonu Campbell MD, [facility] 12/08/2024 4:36:50 PM CDT us Theresa Lamb MD CV ECHO PROCEDURES Final Res ult * Troponin T high-sensitivity 2-hour (12/07/2024 1:11 PM CDT) Trop T hs 17 <=22 ng/L Comment: Interpretive Data For further hscTnT resources including the diagnostic algorithm and an aid in interpretation, copy and paste this link: [email or web address] Current Interpretive Data last revised 2020. Trop T hs delta -4 ng/L [facility] Trop T hs interp Insignificant [facility] Blood 12/07/2024 1:11 PM CDT 12/07/2024 1:11 PM CDT us Aric Tabor MD LAB BLOOD ORDERABLES F inal Result [facility] [address] Department of Laboratories [place], [place] [id number] * Troponin T high-sensitivity series (baseline, 2hr, 4hr, 6hr) (12/07/2024 11:12 AM CDT) Trop T hs 21 <=22 ng/L Comment: Interpretive Data For further hscTnT resources including the diagnostic algorithm and an aid in interpretation, copy and paste this link: [email or web address] Current Interpretive Data last revised 2020. Blood 12/07/2024 11:1 2 AM CDT 12/07/2024 11:12 AM CDT us Waleska Mcneal MD LAB BLOOD ORDERABLES Ed ited Result - Final JEFF BRODERICK [address] Department [place] [address] * eGFR (12/07/2024 11:12 AM CDT) eGFR [...] AM CDT 12/07/2024 11:12 AM CDT us Aric Tabor MD LAB BLOOD ORDERABLES F inal Result JEFF BRODERICK [address] Department [place] [address] * Comprehensive metabolic panel (12/07/2024 11:12 AM CDT) Sodium 139 135 - 145 mmol/L Potassium, pl 3.7 3.3 - 4.9 mmol/L [facility] Chloride 100 97 - 110 mmol/L [facility] CO2 26 22 - 32 mmol/L [facility] Anion gap 13 2 - 15 mmol/L [facility] BUN 14 6 - 25 mg/dL [facility] Creatinine 0.87 0.80 - 1.30 mg/dL [facility] Glucose 174 70 - 199 mg/dL [facility] Comment: Interpretive Data Fasting glucose >/= 126 [...] 2 AM CDT 12/07/2024 11:12 AM CDT Waleska Mcneal MD LAB BLOOD ORDERABLES [facility] Result [facility] [address] [address] Department [place] [address] * (ABNORMAL) Differential, auto (12/07/2024 11:09 AM [...] K/cumm [facility] Neutrophil pct 66.7 % [facility] Comment: Interpretive Data Percent cell count reference ranges are not reported, since discordance with absolute values may lead to misinterpretation of CBC data. Current Interpretive Data was last revised on 2017. Imm gran pct 0.5 % [facility] Comment: Interpretive Data Percent cell count reference ranges are not reported, since discordance with absolute values may lead to misinterpretation of CBC data. Current Interpretive Data was last revised on 2017. Lymphocyte pct 19.6 % [facility] Comment: Interpretive Data Percent cell count reference ranges are not reported, since discordance with absolute values may lead to misinterpretation of CBC data. Current Interpretive Data was last revised on 2017. Monocyte pct 10.7 % [facility] Comment: Interpretive Data Percent cell count reference ranges are not reported, since discordance with absolute values may lead to misinterpretation of CBC data. Current Interpretive Data was last revised on 2017. Eosinophil pct 1.6 % [facility] Comment: Interpretive Data Percent cell count reference ranges are not reported, since discordance with absolute values may lead to misinterpretation of CBC data. Current Interpretive Data was last revised on 2017. Basophil pct 0.9 % [facility] Comment: Interpretive Data Percent cell count reference ranges are not reported, since discordance with absolute values may lead to misinterpretation of CBC data. Current Interpretive Data was last revised on 2017. Blood 12/07/2024 11:0 9 AM CDT 12/07/2024 11:09 AM CDT Aric Tabor MD LAB BLOOD ORDERABLES F inal Result JEFF [id number] [address] Department [place] [address] * (ABNORMAL) CBC with auto differential (12/07/2024 11:09 AM CDT) WBC 8.13 3.80 - 9.90 K/cumm Hgb 14.1 13.0 - 17.5 g/dL [facility] [place] Hct 42.4 38.9 - 50.3 % [facility] Plt 204 150 - 400 K/cumm [facility] MPV 8.6(L) 9.1 - 12.3 fL JEFF RBC 4.96 4.30 - 5.80 M/cumm JEFF MCV 85.5 81.3 - 96.4 fL [facility] MCH 28.4 27.1 - 33.3 pg JEFF MCHC 33.3 32.3 - 35.7 g/dL JEFF CH RDW CV 13.5 11.1 - 14.9 % JEFF RDW SD 41.8 35.7 - 48.[address] [facility] NRBC abs 0.00 0.00 - 0.01 K/cumm [facility] Blood Venous blood specimen / Unknown 12/07/2024 11:09 AM CDT 12/07/2024 11:09 AM CDT us Waleska Mcneal MD LAB BLOOD ORDERABLES Fi nal Result JEFF [id number] [address] Department [place] [address] * XR Chest 1 Vw Portable (if [...] CDT) 12/07/2024 10:2 4 AM CDT Narrative [facility] - 12/07/2024 4:21 PM CDT Vent Rate: 66 bpm RR Interval: 896 msec MD Interval: 249 msec QRS Duration: 115 msec QT Interval: 401 msec QTC Interval: 415 msec P-R-T [place]: 35 - -55 - 81 degrees IMPRESSION: [...] Mcneal MD ECG ORDERABLES Final R esult [facility] * XR Chest PA Lateral 2 View [...] disease. Electronically signed by: Zenon Wing M.D. us Theresa Lamb MD IMG XR PROCEDURES Final Resu lt * ECG 12 lead (12/04/2024 10:34 AM CDT) 12/04/2024 10:3 4 AM CDT Narrative [facility] - 12/04/2024 11:16 AM CDT Vent Rate: 69 bpm RR Interval: 863 msec MD Interval: 244 msec QRS Duration: 102 msec QT Interval: 397 msec QTC Interval: 416 msec P-R-T [place]: 94 - 240 - 82 degrees IMPRESSION: SINUS RHYTHM WITH FIRST DEGREE AV BLOCK INDETERMINATE AXIS INCOMPLETE RIGHT BUNDLE BRANCH BLOCK ABNORMAL ECG NO CHANGE FROM PREVIOUS TRACING NOTED Electronically Signed By: Jose Godoy MD Theresa Lamb MD ECG ORDERABLES Final Result [facility] * eGFR (12/04/2024 9:57 AM CDT) eGFR [...] MD LAB BLOOD ORDERABLES Final R esult [facility] [address] [address] Department [place] [address] * (ABNORMAL) Urinalysis reflex to microscopic and culture Urine, clean voided (12/04/2024 9:57 AM CDT) Color, ur Yellow Yellow Clarity, ur Clear Clear [facility] Specific gravity, ur 1.040(H) 1.003 - 1.030 [facility] pH, urine 5.0 [facility] Comment: Interpretive Data U rine pH is affected by diet, medications, systemic acid-base disturbances, and renal tubular function. pH may affect urinary stone formation. For example, urine pH below 6.0 may help reduce the tendency for calcium phosphate stones and pH greater than 6.0 may reduce the tendency for uric acid stone formation. Source: [facility] [employer] Current Interpretive Data was last revised on [...] microscopic UA and culture not met. [facility] Urine, clean voided 12/04/2024 9:57 AM CDT 12/04/2024 11:42 AM CDT Theresa Lamb MD LAB MICROBIOLOGY - GENERAL O RDERABLES Final Result Performing Organization Address [facility] Co de Phone Number JEFF BRODERICK [address] [employer] [place] [address] * aPTT (12/04/2024 9:57 AM CDT) aPTT [...] ORDERABLES Final R esult Performing Organization Address [facility] Co de Phone Number JEFF BRODERICK [address] [address] Department [employer] [place] [address] * Protime-INR (12/04/2024 9:57 AM CDT) PT 11.6 9.7 - 13.0 sec INR 1.07 0.90 - 1.[address] [facility] Comment: Interpretive data Oral anticoagulant therapeutic ranges: Venous thromboembolism prophylaxis or treatment: 2.0-3.0 CARDIOLOGY Standard range: 2.0-3.0 High-intensity range: 2.5-3.5 Refer to indication-specific guidelines for appropriate target ranges for prosthetic heart valve replacement. Current interpretive data was last revised on 2019. Blood 12/04/2024 9:57 AM CDT 12/04/2024 10:35 AM CDT Theresa Lamb MD LAB BLOOD ORDERABLES Final R esult Performing Organization Address [facility] Co de Phone Number JEFF BRODERICK [address] [address] [employer] [place] [phone] * (ABNORMAL) CBC without differential (12/04/2024 9:57 AM CDT) WBC 7.66 3.80 - 9.90 K/cumm Hgb 14.9 13.0 - 17.5 g/dL [facility] Hct 45.6 38.9 - 50.3 % [facility] Plt 203 150 - 400 K/cumm [facility] MPV 8.5(L) 9.1 - 12.3 fL [facility] RBC 5.28 4.30 - 5.80 M/cumm [facility] MCV 86.4 81.3 - 96.4 fL [facility] MCH 28.2 27.1 - 33.3 pg [facility] MCHC 32.7 32.3 - 35.7 g/dL [facility] RDW CV 13.4 11.1 - 14.9 % [facility] RDW SD 42.3 35.7 - 48.1 fL [facility] NRBC abs 0.00 0.00 - 0.01 K/cumm [facility] Blood 12/04/2024 9:57 AM CDT 12/04/2024 10:35 AM CDT Theresa Lamb MD LAB BLOOD ORDERABLES Final R esult Performing Organization Address City/[facility] Co de Phone Number JEFF [address] [address] Department [place] [address] * Type and screen (12/04/2024 9:57 AM CDT) ABO Rh A Negative Antonio, indirect Negative [facility] Blood 12/04/2024 9:57 AM CDT 12/04/2024 10:35 AM CDT Narrative [facility] - 12/04/2024 11:14 AM CDT Has the patient had Daratumumab or Isatuximab in the past 6 months?->Unknown Theresa Lamb MD LAB BLOOD BANK TEST ORDERABL ES Final Result JEFF BRODERICK [address] [address] Department [place] [address] * (ABNORMAL) Basic metabolic panel (12/04/2024 9:57 AM CDT) Sodium 140 135 - 145 mmol/L Potassium, pl 3.8 3.3 - 4.9 mmol/L [facility] Chloride 102 97 - 110 mmol/L [facility] CO2 27 22 - 32 mmol/L [facility] Anion gap 11 2 - 15 mmol/L [facility] BUN 15 6 - 25 mg/dL [facility] Creatinine 0.76(L) 0.80 - 1.30 mg/dL [facility] Glucose 288(H) 70 - 199 mg/dL [facility] Comment: Interpretive Data Fasting glucose >/= [...] 9.1 8.5 - 10.3 mg/dL [facility] Blood 12/04/2024 9:57 AM CDT 12/04/2024 10:35 AM CDT Theresa Lamb MD LAB BLOOD ORDERABLES Final R esult JEFF BRODERICK [address] [address] Department [place] [address] * (ABNORMAL) Troponin T high-sensitivity 2-hour (11/17/2024 10:14 PM CDT) Trop T hs 23(H) <=22 ng/L Comment: Interpretive Data For further hscTnT resources including the diagnostic algorithm and an aid in interpretation, copy and paste this link: https://nrl.testcatalog.org/show/hsTrop Current Interpretive Data last revised 2020. Trop T hs delta 2 ng/L [facility] Trop T hs interp Insignificant [facility] Blood 11/17/2024 10:1 4 PM CDT 11/17/2024 10:25 PM CDT Jeremie Tucker MD LAB BLOOD ORDERABLES Final Result Performing Organization Address City/[facility]/ZIP Co de Phone Number JEFF BRODERICK [address] Department of [employer] [place] [address] * Troponin T high-sensitivity series (baseline, 2hr, 4hr, 6hr) (11/17/2024 7:14 PM CDT) Pathologist [facility] Trop T hs 21 <=22 ng/L Comment: Interpretive Data For further hscTnT resources including the diagnostic algorithm and an aid in interpretation, copy and paste this link: https://nrl.testcat[employer]rowser [employer]..org/show/hsTrop Current Interpretive Data last revised 2020. Blood 11/17/2024 7:14 PM CDT 11/17/2024 10:06 PM CDT Jeremie Tucker MD LAB BLOOD ORDERABLES Final Result Performing Organization Address [facility] Co de Phone Number JEFF BRODERICK [address] [address] Department of [employer] [place] [address] * eGFR (11/17/2024 7:14 PM CDT) eGFR [...] Tucker MD LAB BLOOD ORDERABLES Final Result [facility] [address] [address] Department [place] [address] * (ABNORMAL) Differential, auto (11/17/2024 7:14 PM CDT) Neutrophil abs 8.7(H) 1.5 - 6.5 K/cumm Imm gran abs 0.0 0.0 - 0.1 K/cumm [facility] Lymphocyte abs 2.2 0.8 - 3.3 K/cumm [facility] Monocyte abs 1.2(H) 0.2 - 0.8 K/cumm [facility] Eosinophil abs 0.2 0.0 - 0.5 K/cumm [facility] Basophil abs 0.1 0.0 - 0.1 K/cumm [facility] Neutrophil pct 70.6 % [facility] Comment: Interpretive Data Percent cell count reference ranges are not reported, since discordance with absolute values may lead to misinterpretation of CBC data. Current Interpretive Data was last revised on 2017. Imm gran pct 0.3 % [facility] Comment: Interpretive Data Percent cell count reference ranges are not reported, since discordance with absolute values may lead to misinterpretation of CBC data. Current Interpretive Data was last revised on 2017. Lymphocyte pct 17.8 % [facility] Comment: Interpretive Data Percent cell count reference ranges are not reported, since discordance with absolute values may lead to misinterpretation of CBC data. Current Interpretive Data was last revised on 2017. Monocyte pct 9.4 % [facility] Comment: Interpretive Data Percent cell count reference ranges are not reported, since discordance with absolute values may lead to misinterpretation of CBC data. Current Interpretive Data was last revised on 2017. Eosinophil pct 1.3 % [facility] Comment: Interpretive Data Percent cell count reference ranges are not reported, since discordance with absolute values may lead to misinterpretation of CBC data. Current Interpretive Data was last revised on 2017. Basophil pct 0.6 % [facility] Comment: Interpretive Data Percent cell count reference ranges are not reported, since discordance with absolute values may lead to misinterpretation of CBC data. Current Interpretive Data was last revised on 2017. Blood 11/17/2024 7:14 PM CDT 11/17/2024 7:19 PM CDT Jeremie Tucker MD LAB BLOOD ORDERABLES Final Result Performing Organization Address City/State/[facility] Co de Phone Number [facility] [address] [address] Department [place] [address] * Respiratory pathogen panel Nasopharyngeal (11/17/2024 7:14 PM CDT) Pathologist [facility] Influenza A RNA Not Detected Not Detected Influenza B RNA Not Detected Not Detected [facility] RSV RNA Not Detected Not Detected [facility] COVID-19 RNA Not Detected Not Detected [facility] Coronavirus 229E RNA Not Detected Not Detected [facility] Coronavirus HKU1 RNA Not Detected Not Detected [facility] Coronavirus NL63 RNA Not Detected Not Detected [facility] Coronavirus OC43 RNA Not Detected Not Detected [facility] Adenovirus DNA Not Detected Not Detected [facility] Metapneumovirus RNA Not Detected Not Detected [facility] Rhinovirus/Enterov irus RNA Not Detected Not Detected [facility] Parainfluenza 1 RNA Not Detected Not Detected [facility] Parainfluenza 2 RNA Not Detected Not Detected [facility] Parainfluenza 3 RNA Not Detected Not Detected [facility] Parainfluenza 4 RNA Not Detected Not Detected [facility] B. pertussis DNA Not Detected Not Detected [facility] B. parapertussis DNA Not Detected Not Detected [facility] C. pneumoniae DNA Not Detected Not Detected [facility] M. pneumoniae DNA Not Detected Not Detected [facility] Comment: Interpretive Data The Exogenesis FilmArray Respiratory Panel (RP2.1) assay is a [...] assay has FDA clearance for testing of TAXONOMIST swabs. The performance characteristics of this assay have been determined by [facility]. Current interpretive data was last revised on 2021. Nasopharyngeal 11/17/2024 7: 14 PM CDT 11/17/2024 7:18 PM CDT Shanice Pacheco 11/17/2024 8:16 PM CDT Is the Patient experiencing symptoms consistent with COVID?->Yes Surveillance testing for transplant patient?->No Jeremie Tucker MD LAB MICROBIOLOGY - GENERAL ORDERABLES Final Result JEFF BRODERICK [address] [address] Department of [employer] [place] [address] CH * (ABNORMAL) CBC with auto differential (11/17/2024 7:14 PM CDT) WBC 12.3(H) 3.8 - 9.9 K/cumm Hgb 15.5 13.0 - 17.5 g/dL [facility] Hct 46.6 38.9 - 50.3 % [facility] Plt 234 150 - 400 K/cumm [facility] MPV 8.7(L) 9.1 - 12.[address] [facility] RBC 5.40 4.30 - 5.80 M/cumm [facility] MCV 86.3 81.3 - 96.[address] [facility] MCH 28.7 27.1 - 33.3 pg [facility] MCHC 33.3 32.3 - 35.7 g/dL [facility] CH RDW CV 13.6 11.1 - 14.9 % [facility] CH RDW SD 42.5 35.7 - 48.[address] [facility] NRBC abs 0.00 0.00 - 0.01 K/cumm [facility] Blood Venous blood specimen / Unknown 11/17/2024 7:14 PM CDT 11/17/2024 7:19 PM CDT Jeremie Tucker MD LAB BLOOD ORDERABLES Final Result Performing Organization Address City/[facility]/ZIP Co de Phone Number JEFF BRODERICK [address] [address] [employer] [place] [address] * (ABNORMAL) Comprehensive metabolic panel [...] Tucker MD LAB BLOOD ORDERABLES Final Result [facility] [address] [address] Department [place] [address] * ECG 12 lead (11/17/2024 7:13 PM CDT) 11/17/2024 7:13 PM CDT Narrative [facility] - 11/17/2024 9:43 PM CDT Vent Rate: 83 bpm RR Interval: 715 msec MD Interval: 217 msec QRS Duration: 108 msec QT Interval: 376 msec QTC Interval: 416 msec P-R-T [place]: 30 - -79 - 67 degrees IMPRESSION: SINUS RHYTHM WITH FIRST DEGREE AV BLOCK INDETERMINATE AXIS INFERIOR MYOCARDIAL INFARCTION , PROBABLY OLD [40+ ms Q WAVE AND/OR ST/T ABNORMALITY IN II/aVF] ABNORMAL ECG NO CHANGE FROM PREVIOUS TRACING NOTED Electronically Signed By: Jose Godoy MD Jeremie Tucker MD ECG ORDERABLES Final Resu lt Performing Organization Address [facility] Co de Phone Number [facility] * (ABNORMAL) Albumin Creatinine Ratio, Urine (04/01/2024 11:09 AM CDT) Albumin Ur 19.5 mg/L Comment: Interpretive Data No reference range established. Current interpretive data was last revised 2019. Creatinine Ur 60.3 mg/dL [facility] Comment: Interpretive Data No reference range established. Current interpretive data was last revised 2019. Albumin Creatinine Ratio, Ur 32(H) 1 - 29 mg/g [facility] Urine 04/01/2024 11:0 9 AM CDT 04/01/2024 5:29 PM CDT Alireza Clark MD LAB URINE ORDERABLES Final Resul t Performing Organization Address [facility] de Phone Number [facility] [address] [address] Department [place] [address] * (ABNORMAL) Lipid panel (04/01/2024 11:09 AM [...] BLOOD ORDERABLES Final Resul t JEFF BRODERICK [address] [address] Department [place] [address] from Last 3 Months or Most Recently Relevant to Health Maintenance Insurance MEDICARE Slidely [employer] [facility] MEDICARE [facility] Address: [address] [address] [place] [address] [employer] LIFE [facility] MEDICARE [facility] Address: [facility] [address] [place] [address] Advance Directives For more information, please contact: [phone] * Full Code (Latest Code Status on File) Date Activated Date Inactivated Comments 01/07/2025 1:12 PM 01/11/2025 11:13 PM * Full Code Date Activated Date Inactivated Comments 12/14/2024 5:54 PM 12/21/2024 8:28 PM * Full Code Date Activated Date Inactivated Comments 06/18/2024 3:52 PM 06/19/2024 10:57 PM * Full Code Date Activated Date Inactivated Comments 02/11/2024 3:49 PM 02/12/2024 6:22 PM Care Teams Quality Assurance Associate Relationship Specialty Start Date End Date Maryann Jiménez DO PCP - General Family Medicine 07/03/22 Jose David Betancourt MD [address] [place] [address] Consulting Physician Urology 06/19/24 Theresa Lamb MD [address] [place] [address] Surgeon Cardiothoracic Surgery 12/21/24 Jatinder Jones MD [address] [place] [address] Consulting Physician Cardiology 12/21/24 Miscellaneous, Not In File 12/21/24
--- OUTSIDE RECORDS SUMMARY | 2025-02-16 13:34 | XMS_ITS | CONTINUITY OF CARE DOCUMENT ---
Author Name duong jose ryara Address Unknown Organization [facility] Address [address] [place] [address] [address] [place] [address] Phone [phone] Care Team Providers Care Tele Marketing Executive Name Role Phone Mary MUNOZ, Richardson Unavailable Robert MUNOZ, Jatinder Unavailable TAMERA MUNOZ, JENNI HOLLEY Unavailable PROBLEMS Condition [...] In-person encounter Office Visit Huy Carver DO [facility] Overweight - In-person encounter Office Visit Huy Carver DO [facility] Status Post Medtronic (MRI Safe) REVEAL/LinQStatus Post Pacemaker, permanent - In-person encounter Office Visit Huy Carver DO [facility] Family History of Hyperlipidemia:Phys ical examStatus Post Pacemaker, permanent - In-person encounter Office Visit Huy [facility] Office - In-person encounter Office Visit Huy Carver DO [facility] VITAL SIGNS Date Observation Value Provider [...] percentage of total cells, blood 0.3 % [facility] 3 nucleated red blood cells as percent of blood leukocytes 0.0 % [facility] - 3 red blood cell (erythrocyte) count, [...] of grandchildren Huy Weston O Huycarmelo Alatorredilshad NGUYỄN social history reviewed E&M revi ewed - no changes required Huycarmelo Alatorrecock social history E&M S moking History: David orellana is a former smoker. Huy Carver DO smoking status Former smoker Gloria Garrett social history E&M S moking History: David orellana is a former smoker. 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 Likely vasovagal. h [...] Has had no recurrent syncope since. H[facility] Electrophysiology: B P today: 120/58 P rior BP: 115/60 (11/22/2016) Labs Reviewed: C reat: 0.8 (11/22/2016) [facility] Electrophysiology:Follows w/ Gee downs [facility] Electrophysiology: u nclear etiolgy. h ad [...] Has had no recurrent syncope since. Huy [facility] EP: B P today: 115/60 [facility] EP:neg stress test with normal L VF [facility] EP:unclear etiolgy. h ad 3 syncopal [...] Provider Procedure Notes S tatus EKG Huy Denver DO completed Loop Recorder Interrogation, Remote Huy Denver DO INTERROGATION EVALUATION REMOTE </30 D ILR SYS completed ICM Interrogation, Remote (Tech) Huy Denver DO INTERROGATION EVAL REMOTE </30 D TECH REVIEW completed Loop Recorder Interrogation, Remote Huy Denver DO INTERROGATION EVALUATION REMOTE </30 D ILR SYS completed ICM Interrogation, Remote (Tech) Huy Denver DO INTERROGATION EVAL REMOTE </30 D TECH REVIEW completed Loop Recorder Interrogation, Remote Huy Denver DO INTERROGATION EVALUATION REMOTE </30 D ILR SYS completed ICM Interrogation, Remote (Tech) Huy Denver DO INTERROGATION EVAL REMOTE </30 D TECH REVIEW completed Loop Recorder Interrogation, Remote Huy Denver DO INTERROGATION EVALUATION REMOTE </30 D ILR SYS completed ICM Interrogation, Remote (Tech) Huy Denver DO INTERROGATION EVAL REMOTE </30 D TECH REVIEW completed Loop Recorder Interrogation, Remote Huy Denver DO INTERROGATION EVALUATION REMOTE </30 D ILR SYS completed ICM Interrogation, Remote (Tech) Huy Denver DO INTERROGATION EVAL REMOTE </30 D TECH REVIEW completed Loop Recorder Interrogation, Remote Huy Denver DO INTERROGATION EVALUATION REMOTE </30 D ILR SYS completed ICM Interrogation, Remote (Tech) Huy Denver DO INTERROGATION EVAL REMOTE </30 D TECH REVIEW completed Loop Recorder Interrogation, Remote Huy Denver DO INTERROGATION EVALUATION REMOTE </30 D ILR SYS completed ICM Interrogation, Remote (Tech) Huy Denver DO INTERROGATION EVAL REMOTE </30 D TECH REVIEW completed Loop Recorder Interrogation, Remote Huy Denver DO INTERROGATION EVALUATION REMOTE </30 D ILR SYS completed ICM Interrogation, Remote (Tech) Huy Denver DO INTERROGATION EVAL REMOTE </30 D TECH REVIEW completed Loop Recorder Interrogation, Remote Huy Denver DO INTERROGATION EVALUATION REMOTE </30 D ILR SYS completed ICM Interrogation, Remote (Tech) Huy Denver DO INTERROGATION EVAL REMOTE </30 D TECH REVIEW completed Schedule Followup Huy Glascoc k DO in 1 yr completed EKG Huy Denver DO completed Loop Recorder Interrogation, Remote Huy Denver DO INTERROGATION EVALUATION REMOTE </30 D ILR SYS completed ICM Interrogation, Remote (Tech) Huy Denver DO INTERROGATION EVAL REMOTE </30 D TECH REVIEW completed Loop Recorder Interrogation, Remote Huy Denver DO INTERROGATION EVALUATION REMOTE </30 D ILR SYS completed ICM Interrogation, Remote (Tech) Huy Denver DO INTERROGATION EVAL REMOTE </30 D TECH REVIEW completed Loop Recorder Interrogation, Remote Huy Denver DO INTERROGATION EVALUATION REMOTE </30 D ILR SYS completed ICM Interrogation, Remote (Tech) Huy Denver DO INTERROGATION EVAL REMOTE </30 D TECH REVIEW completed Loop Recorder Interrogation, Remote Huy Denver DO INTERROGATION EVALUATION REMOTE </30 D ILR SYS completed ICM Interrogation, Remote (Tech) Huy Denver DO INTERROGATION EVAL REMOTE </30 D TECH REVIEW completed Loop Recorder Interrogation, Remote Huy Denver DO INTERROGATION EVALUATION REMOTE </30 D ILR SYS completed ICM Interrogation, Remote (Tech) Huy Denver DO INTERROGATION EVAL REMOTE </30 D TECH REVIEW completed Loop Recorder Interrogation, Remote Huy Denver DO INTERROGATION EVALUATION REMOTE </30 D ILR SYS completed ICM Interrogation, Remote (Tech) Huy Denver DO INTERROGATION EVAL REMOTE </30 D TECH REVIEW completed Loop Recorder Interrogation, Remote Huy Denver DO INTERROGATION EVALUATION REMOTE </30 D ILR SYS completed ICM Interrogation, Remote (Tech) Huy Denver DO INTERROGATION EVAL REMOTE </30 D TECH REVIEW completed Loop Recorder Interrogation, Remote Huy Denver DO INTERROGATION EVALUATION REMOTE </30 D ILR SYS completed ICM Interrogation, Remote (Tech) Huy Denver DO INTERROGATION EVAL REMOTE </30 D TECH REVIEW completed Loop Recorder Interrogation, Remote Huy Denver DO INTERROGATION EVALUATION REMOTE </30 D ILR SYS completed ICM Interrogation, Remote (Tech) Huy Denver DO INTERROGATION EVAL REMOTE </30 D TECH REVIEW completed Loop Recorder Interrogation, Remote Huy Denver DO INTERROGATION EVALUATION REMOTE </30 D ILR SYS completed ICM Interrogation, Remote (Tech) Huy Denver DO INTERROGATION EVAL REMOTE </30 D TECH REVIEW completed EKG Huy Denver DO completed SNOMED-CT: [id number] Current Medications Documented Huy Denver DO completed Loop Recorder Interrogation, Remote Huy Denver DO INTERROGATION EVALUATION REMOTE </30 D ILR SYS completed ICM Interrogation, Remote (Tech) Huy Denver DO INTERROGATION EVAL REMOTE </30 D TECH REVIEW completed Loop Recorder Interrogation, Remote Huy Denver DO INTERROGATION EVALUATION REMOTE </30 D ILR SYS completed ICM Interrogation, Remote (Tech) Huy Denver DO INTERROGATION EVAL REMOTE </30 D TECH REVIEW completed Loop Recorder Interrogation, Remote Huy Denver DO INTERROGATION EVALUATION REMOTE </30 D ILR SYS completed ICM Interrogation, Remote (Tech) Huy Denver DO INTERROGATION EVAL REMOTE </30 D TECH REVIEW completed Loop Recorder Interrogation, Remote Huy Denver DO INTERROGATION EVALUATION REMOTE </30 D ILR SYS completed ICM Interrogation, Remote (Tech) Huy Denver DO INTERROGATION EVAL REMOTE </30 D TECH REVIEW completed EKG Huy Denver DO completed SNOMED-CT: [id number] Current Medications Documented Huy Denver DO completed Loop Recorder Interrogation, Remote Huy Denver DO INTERROGATION EVALUATION REMOTE </30 D ILR SYS completed ICM Interrogation, Remote (Tech) Huy Denver DO INTERROGATION EVAL REMOTE </30 D TECH REVIEW completed Loop Recorder Interrogation, Remote Huy Denver DO INTERROGATION EVALUATION REMOTE </30 D ILR SYS completed ICM Interrogation, Remote (Tech) Huy Denver DO INTERROGATION EVAL REMOTE </30 D TECH REVIEW completed Loop Recorder Interrogation, Remote Huy Denver DO INTERROGATION EVALUATION REMOTE </30 D ILR SYS completed ICM Interrogation, Remote (Tech) Huy Denver DO INTERROGATION EVAL REMOTE </30 D TECH REVIEW completed Loop Recorder Interrogation, Remote Huy Denver DO INTERROGATION EVALUATION REMOTE </30 D ILR SYS completed ICM Interrogation, Remote (Tech) Huy Denver DO INTERROGATION EVAL REMOTE </30 D TECH REVIEW completed EKG Huy Denver DO completed SNOMED-CT: [id number] Current Medications Documented Huy Denver DO completed
--- OUTSIDE RECORDS SUMMARY | 2025-02-16 13:35 | XMS_ITS | Encounter Summary ---
Author Organization [facility] Healthcare Address [address] [place] [address] Care Team Providers Care Manager Market Research Name Role Phone Maryann Jiménez DO Primary Care Provider + Jose David Betancourt MD Unavailable [phone] Ty Lamb MD Unavailable [phone] Jatinder Jones MD Unavailable [phone] Miscellaneous, Not In File Unavailable Unava ilable Encounter Details Date Type Department Care Team (Late st Contact Info) Description 01/01/2025 Results Follow-Up [facility] at [address] [place] [address] Nayely Sharp, ZIG ZAG SPRING MACHINE OPERATOR [address] [place] [address] XR Chest Pa Lateral 2 Views Social History Tobacco Use Types Packs/Day Years Used Date Smoking Tobacco: Former Cigarettes Q uit: 04/28/1983 Smokeless Tobacco: Never Comments:quite smoking 1982 Alcohol Use Standard Drinks/Week Comments Yes 0 (1 standard drink = 0.6 oz pur e alcohol) OASIS D0700: Social Isolation Answer Da te Recorded Frequency of experiencing loneliness or isolatio n Rarely 12/23/2024 OASIS A1250: Transportation Answer Date Recorded Lack of Transportation (Medical) No 12/23/2024 Lack of Transportation (Non-Medical) No 12/23/2024 Patient Unable or Declines to Respond No 12/23/2024 OASIS B1300: Health Literacy Answer Dean e Recorded Frequency of needing help to read materials from doctor or pharmacy Never 12/23/2024 [facility] Utilities Answer Date Recorded In the past 12 months has th e electric, gas, oil, or water company threatened to shut off services in your home? No 12/17/2024 Humiliation, Afraid, Rape, and Kick questionnair e [...] neighbors? More than three times a week 12/17/2024 How often do you get togethe r with friends or relatives? More than three times a week 12/17/2024 How often do you attend chur ch or buddhist services? More than 4 times per year 12/17/2024 Do you belong to any clubs o r organizations such as religious groups, unions, fraternal or athletic groups, or school groups? Yes 12/17/2024 How often do you attend meet ings of the clubs or organizations you belong to? 1 to 4 times per year 12/17/2024 Are you , , di vorced, , never , or living with a partner? 12/17/2024 AUDIT-C Answer Date Recorded Q1: How often [...] care, and heating? Not hard at all 12/17/2024 PHQ-2 Answer Date Recorded PHQ-2 Total Score (If total score is 3 or more points, staff should administer the PHQ-9) 0 08/17/2024 [facility] - Occupational [...] the money to buy more. Never true 12/18/19 25 Within the past 12 months, t he food you bought just didn't last and you didn't have money to get more. Never true 12/17/2024 PRAPARE - Transportation Answer Date Re corded In the past 12 months, has l ack of transportation kept you from medical appointments or from getting medications? No 12/01 In the past 12 months, has l ack of transportation kept you from meetings, work, or from getting things needed for daily living? No 12/17/2024 Housing Stability Vital Sign Answer Dean e Recorded In the last 12 months, was t here a time when you were not able to pay the mortgage or rent on time? No 12/17/2024 In the past 12 months, how m any times have you moved where you were living? 0 12/17/2024 At any time in the past 12 m [facility], were you homeless or living in a nursing home (including now)? No 12/17/2024 Personal Safety Answer Date Recorded Have you ever been in or are you currently in a harmful physical or emotional relationship or is someone making you feel afraid or unsafe? 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 Gender Identity Male 01/23/2020 12:25 AM CDT Sexual Orientation Straight 01/23/2020 12 :25 AM CDT documented as of this encounter Miscellaneous Notes * Result Encounter Note - Nayely Sharp NP - 01/01/2025 7:41 PM CDT Pt aware of normal xray documented in this encounter Plan of Treatment [...] Date Last Indicated Resolved Time COVID: Suspected 01/07/2025 01/07/2025 01/07/2025 8:40 PM CDT Human metapneumovirus, conta ct + droplet 01/07/2025 01/07/2025 01/14/2025 3:05 AM C DT documented as of this encounter Care Teams Manager Market Research Relationship Specialty Start Date End Date Maryann Jiménez DO PCP - General Family Medicine 07/03/22 Jose David Betancourt MD [address] [address] Consulting Physician Urology 06/19/24 Ty Lamb MD [address] [facility] [address] [place] [address] Surgeon Cardiothoracic Surgery 12/21/24 Jatinder Jones MD [address] [place] [address] Consulting Physician Cardiology 12/21/24 Miscellaneous, Not In File 12/21/24 documented as of this encounter
--- OUTSIDE RECORDS SUMMARY | 2025-02-16 13:35 | XMS_ITS | Continuity of Care Document ---
Author Name [facility] Organization [facility] Care Team Providers Care Photoflash Powder Mixer Name Role Phone [facility] Unavailable Unavailable Problems Combined list of problems from Department of Defense and Veterans Affairs facilities. It does not include entries that were removed or entered in error. Problem Status Onset Date Problem Type Date of Resolution Comments Source Hearing Loss, Sensorineural, Unspecified Active Condition [facility] Medications Combined list of outpatient medications from Department of [facility] and [facility] facilities.Medications provided include 1) outpatient medications from the last 15 months, and 2) patient-reported medications. Medication Details Route Status Patient Instructions Prescription Expires Prescription Number Last Dispense Date Ordering Provider Order Date Order Qty Source Alcohol Antiseptic (Alcohol Swabs Eq.) Pads 70% Topical For external use. 01/14/2025 [id number] 4 [address] [place] [address] [facility] Alcohol Antiseptic (Alcohol Swabs Eq.) Pads 70% Topical For external use. 11/20/2024 [id number] 4 [address] [place] [address] [facility] alcohol prep pad [100EA] See Instruct erin, [...] 4 2023 100.0 Ambulat ory Pharmac y alcohol prep pad [100EA] See Instruct ions, Use topicall y to cleanse area before testing blood sugars 2-3 times daily, # 200 EA, 2 total refill(s ), Soft Stop Ordered 5 2024 200.0 Ambulat ory Pharmac y amLODIPine 2.5 mg [...] total refill(s ), Hard Stop Complet ed 11/20/2024 4 2024 100.0 Ambulat ory Pharmac y BD Lyudmila [...] 4 2024 60.0 Ambulat ory Pharmac y clopidogrel 75 mg tablet = 1 tab(s), Oral, Daily, # 90 EA, 1 total refill(s ), Soft Stop Oral (given by mouth) Ordered 5 2024 90.0 Ambulat ory Pharmac y cyanocobala min 1000 mcg/mL inj-vial [1mL] See Instruct ions, # 13 mL, 1 total refill(s ), Hard Stop Complet ed 02/20/2024 3 2023 13.0 Ambulat ory Pharmac y Dulaglutide 6 mg/mL, Injection, 0.5mL Autoinjecto r refriger ate 11/20/2024 [id number] 4 [address] [place] [address]) FINASTERIDE 5 MG ORAL TAB Do not take if . 11/20/2024 [id number] 4 [address] [place] [address]) finasteride 5 mg tablet 5 mg, Oral, Daily, # 90 EA, 1 total refill(s ), Hard Stop Oral (given by mouth) Discont inued 10/05/2024 4 2024 90.0 Ambulat ory Pharmac y finasteride 5 mg tablet = 1 tab(s), Oral, Daily, # 90 EA, 1 total refill(s ), Hard Stop Oral (given by mouth) Ordered 09/30/2025 5 2024 90.0 Ambulat ory Pharmac y finasteride 5 mg tablet See Instruct ions, # 90 EA, 1 total refill(s ), Hard Stop Complet ed 04/24/2024 3 2023 90.0 Ambulat ory Pharmac y finasteride 5 mg tablet = 1 tab(s), Oral, Daily, # 90 EA, 1 total refill(s ), Soft Stop Oral (given by mouth) Ordered 5 2024 90.0 Ambulat ory Pharmac y Freestyle 28g lancets [100EA] See Instruct ions, # 100 EA, 1 total refill(s ), Hard Stop Complet ed 11/20/2024 4 2024 100.0 Ambulat ory Pharmac y freestyle lite (glucose) test strip [50EA] See Instruct ions, # 100 EA, 2 total refill(s ), Hard Stop Complet ed 01/14/2025 4 2024 100.0 Ambulat ory Pharmac y glimepiride 4 [...] [employer] 3 ml SYRINGE Active [id number] 4 2023 15 Pharmac y Data Transac tion Service Facilit y levothyroxi ne (Synthroid) 100 mcg tablet = 1 tab(s), Oral, every morning, [...] 4 2024 90.0 Ambulat ory Pharmac y levothyroxi ne (Synthroid) 100 mcg tablet = 1 tab(s), Oral, every morning, # 90 EA, 1 total refill(s ), Soft Stop Oral (given by mouth) Ordered 5 2024 90.0 Ambulat ory Pharmac y losartan 25 mg tablet = 1 tab(s), Oral, Daily, # 90 EA, 1 total refill(s ), Soft Stop Oral (given by mouth) Ordered 5 2024 90.0 Ambulat ory Pharmac y meloxicam 7.5 mg tablet See Instruct ions, # 60 EA, 1 total refill(s ), Hard Stop Discont inued 11/12/2023 4 2023 60.0 Ambulat ory Pharmac y metFORMIN 1000 mg tablet = 1 tab(s), Oral, Daily, # 90 EA, 1 total refill(s ), Hard Stop Oral (given by mouth) Ordered 09/30/2025 5 2024 90.0 Ambulat ory Pharmac y metFORMIN 1000 mg tablet 1000 mg, Oral, BID, # 180 EA, 3 total refill(s ), Hard Stop Oral (given by mouth) Discont inued 10/05/2024 4 2024 180.0 Ambulat ory Pharmac y metFORMIN 1000 mg tablet = 1 tab(s), Oral, Daily, # 90 EA, 1 total refill(s ), Soft Stop Oral (given by mouth) Ordered 5 2024 90.0 Ambulat ory Pharmac y Metformin Hydrochlori de Tablet Extended Release 1,000 mg Oral Do not drink alcohol. Take with food/mil k.Take or use exactly as directed .Obtain advice for OTCs.Samanta ck with your doctor before becoming . 01/14/2025 [id number] 4 2023 180 [facility] metFORMIN XR 500 mg/24 hour tablet See Instruct ions, # 90 EA, 1 total refill(s ), Hard Stop Complet ed 04/23/2024 3 2023 90.0 Ambulat ory Pharmac y metoprolol succinate ER 25 mg/24 hour tablet = 1 tab(s), Oral, Daily, # 90 EA, 1 total [...] 4 2024 90.0 Ambulat ory Pharmac y metoprolol tartrate 25 mg tablet See Instruct ions, Take one-half tablet by mouth twice a day, # 90 EA, 3 total refill(s ), Soft Stop Ordered 5 2024 90.0 Ambulat ory Pharmac y [...] 4 2024 90.0 Ambulat ory Pharmac y needle pen 32g 4mm See Instruct ions, Use to inject insulin 5 times daily, # 400 EA, 3 total refill(s ), Soft Stop Ordered 5 2024 400.0 Ambulat ory Pharmac y omeprazole DR 40 mg capsule = 1 cap(s), Oral, Daily, # 90 EA, 1 total [...] Pharmac y omeprazole DR 40 mg capsule = 1 cap(s), Oral, Daily, # 90 EA, 1 total refill(s ), Soft Stop Oral (given by mouth) Ordered 5 2024 90.0 Ambulat ory Pharmac y oxyCODONE-a [...] y potassium chloride ER 10 mEq capsule = 1 cap(s), Oral, every other day, # 45 EA, [...] 4 2024 45.0 Ambulat ory Pharmac y potassium chloride ER [EQV Klor-Con M20] 20 mEq tablet (dispersibl e) = 1 tab(s), Oral, Daily, # 90 EA, 1 total refill(s ), Soft Stop Oral (given by mouth) Ordered 5 2024 90.0 Ambulat ory Pharmac y TRULICITY (dulaglutid e), 4.5 MG/0.5, PEN INJCTR, SUBCUT, TANISHA [employer] .5 ml SYRINGE Active [id number] 2023 6 Pharmac y Data Transac tion [...] Site Reaction Lot Number CVX Code Drug Tire Fixer Status Comments Source influenza, high-dose, quadrivalent 2020 ALUL, () Not Given influenza , high-dose , quadrival ent [facility] influenza, high-dose, quadrivalent 2019 ALUL, () Not Given influenza , high-dose , quadrival ent [facility] Influenza, high dose seasonal 2018 ALUL, () Not Given Influenza , high dose seasonal [facility] Influenza, seasonal, injectable, preservative free 2014 ALUL, () Not Given Influenza , seasonal, injectabl e, preservat stefany free [facility] Influenza, seasonal, injectable 2013 SARAH HENRY () Not Given Influenza , seasonal, injectabl e DoD Procedures Combined list of: 1) Procedures from Department of Veterans Affairs facilities going back up to thelast 18 months, not all [place] non-surgical procedures [...] Plan No data available for this section 02/16/2025 Ambulatory Pharmacy Functional Status Combined list of recent functional and cognitive assessments recorded at Department of Defense and [facility] Affairs ([place] Functional [place] Measurement (FIM) Scale: 1 = Total Assistance (Subject = 0% +), 2 = Maximal Assistance (Subject = 25% +), 3 = Moderate Assistance (Subject = 50% +), 4 = Minimal Assistance (Subject = 75% +), 5 = Supervision, 6 = Modified [place] (Device), 7 = Complete [place] (Timely, Safely). Assessment Date/Time Source Assessment Type Assessment Skill Assessment Score Assessment Details No data available for this section
--- OUTSIDE RECORDS SUMMARY | 2025-02-16 13:35 | XMS_ITS | Encounter Summary ---
Author Organization [facility] Healthcare Address [address] [place] [address] Care Team Providers Care Fermentation Scientist Name Role Phone Maryann Jiménez DO Primary Care Provider + Jose David Betancourt MD Unavailable [phone] Ty Lamb MD Unavailable [phone] Jatinder Jones MD Unavailable [phone] Miscellaneous, Not In File Unavailable Unava ilable Encounter Details Date Type Department Care Team (Late st Contact Info) Description 01/05/2025 [facility] Post Discharge Follow up phone call [facility] [address] [place] [address] Ariella Larsen Social History Tobacco Use Types Packs/Day Years [...] materials from doctor or pharmacy Never 12/23/2024 [facility] Utilities Answer Date Recorded In the [...] often do you attend chur ch or taoism services? More than 4 times per year 12/17/2024 Do you belong to any clubs o r organizations such as islam groups, unions, fraternal or athletic groups, or [...] staff should administer the PHQ-9) 0 08/17/2024 [facility] - Occupational [...] any time in the past 12 m [facility], were you homeless or living in a prison (including now)? No 12/17/2024 Personal Safety Answer Date Recorded Have you ever been in or are you currently in a harmful physical or emotional relationship or is someone making you feel afraid or unsafe? 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 Gender Identity Male 01/23/2020 12:25 AM CDT [...] documented as of this encounter Care Teams Fermentation Scientist Relationship Specialty Start Date End Date Jiménez Maryann DO Missy PCP - General Family Medicine 07/03/22 Jose David Betancourt MD [address] [facility] [address] [place], [place] [id number] Consulting Physician Urology 06/19/24 Ty Lamb MD [address] [facility] [address] [place], [place] [id number] Surgeon Cardiothoracic Surgery 12/21/24 Jatinder Jones MD [address] [place] [address] Consulting Physician Cardiology 12/21/24 Miscellaneous, Not In File 12/21/24 documented as of this encounter
--- OUTSIDE RECORDS SUMMARY | 2025-02-16 13:35 | XMS_ITS | Encounter Summary ---
Author Organization [facility] Healthcare Address [address] [place] [address] Care Team Providers Care Adjunct Faculty For Medical Terminology Name Role Phone Maryann Jiménez DO Primary Care Provider + Jose David Betancourt MD Unavailable [phone] Ty Lamb MD Unavailable [phone] Jatinder Jones MD Unavailable [phone] Miscellaneous, Not In File Unavailable Unava ilable Encounter Details Date Type Department Care Team (Late st Contact Info) Description 01/25/2025 [facility] Post Discharge Follow up phone call [facility] [address] [place] [address] Ariella Larsen Social History Tobacco [...] materials from doctor or pharmacy Never 01/27/2025 [facility] Utilities Answer Date Recorded In the past [...] 01/11/2025 How often do you attend chur or mormon services? More than 4 times per year 01/11/2025 Do you belong to any clubs o r organizations such as gnosticist groups, unions, fraternal or athletic groups, or [...] staff should administer the PHQ-9) 0 08/17/2024 [facility] - Occupational Stress [...] any time in the past 12 m [facility], were you homeless or living in a half-way (including now)? No 01/11/2025 Personal Safety Answer Date Recorded Have you ever been in or are you currently in a harmful physical or emotional relationship or is someone making you feel afraid or unsafe? 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 Male 3:55 AM [employer] Gender Identity Male 01/23/2020 12:25 AM CDT [...] on filedocumented in this encounter Care Teams Adjunct Faculty For Medical Terminology Relationship Specialty Start Date End Date Maryann Jiménez DO PCP - General Family Medicine 07/03/22 Jose David Betancourt MD [address] [place] [address] Consulting Physician Urology 06/19/24 Ty Lamb MD [address] [facility] [address] [place] [address] Surgeon Cardiothoracic Surgery 12/21/24 Jatinder Jones MD [address] [place] [address] Consulting Physician Cardiology 12/21/24 Miscellaneous, Not In File 12/21/24 documented as of this encounter
--- OUTSIDE RECORDS SUMMARY | 2025-02-16 13:35 | XMS_ITS | Patient Health Record ---
Author Organization [facility] Address [address] [place] [address] Care Team Providers Care General Dentist Name Role Phone Jamison Dsouza MD Primary [...] confirmed Strain of long head of biceps (633077918) Problem Overexertion from strenuous movement or load, initial encounter (X50.0XXA) 3 Active confirmed Overexertion, strenuous movements and vibration (event) (368047943) Problem Unspecified injury of left shoulder and upper arm, initial encounter (S49.92XA) 2 Active confirmed Injury of shoulder and upper arm (268087770) Problem Impingement syndrome of left shoulder (M75.42) 2 Active confirmed Impingement syndrome of left shoulder region (423120568174874) Problem Primary osteoarthritis, left shoulder (M19.012) 2 Active confirmed Localized, primary osteoarthritis of the shoulder region (837069197) Problem Unspecified fall, sequela (W19.XXXS) 2 Active confirmed Fall () PLAN OF TREATMENT Pending Test Test Name Order Date CT arthrogram 02/13/2023 Intra-articular Shoulder Injection 03/07 Insurance Providers Payer Name Payer Address Payer Phone Subscriber Number Group Number Insured Name Patient Relationship to Insured Coverage Start Date Coverage End Date Medicare [address] [place] [address] [id number] Ced Mccracken Self - patient is the insured for [employer] [address] [place] [address] [phone] [id number] Ced Mccracken Self - patient is the insured MEDICAL (GENERAL) HISTORY Medical History History ICD Code diabetes mellitus hypertension heart disease thyroid disease
--- OUTSIDE RECORDS SUMMARY | 2025-02-16 13:35 | XMS_ITS | Data Portability ---
Author Organization [facility] [place], Main Office Address [address] [place] [address] Assessment No assessment recorded. Plan of Treatment Reminders Order Date Submit Date Provider Last Modified By Organization Details Last Modified Time Details Appointments None recorded. Lab None recorded. Referral endocrinolo gy referral 2022 023 [email or web address] Mary Beth Bo MD, [address],, [facility], [place], [address], 3 12:03:44 Procedures None recorded. Surgeries None recorded. Imaging None recorded. Medication Orders atorvastati n [address] tablet [address] [facility], [address] [place] [address], [id number], 3 12:23:16 Trulicity 3 mg/0.5 mL subcutaneou s pen injector [address] [facility], [address] [place] [address], [id number], 3 12:23:15 Tresiba FlexTouch U-200 insulin 200 unit/mL (3 mL) subcutaneou s pen [address] [facility], [address] [place] [address], [id number], 3 12:23:17 metformin ER 500 mg tablet,exte nded release [address] [facility], [address] [place] [address], [address], 3 12:24:40 Jardiance 25 mg tablet [address] [facility], [address] [place] [address], [address], 3 12:24:41 FreeStyle Lite Strips [address] [facility], [address] [place] [address], [address], 3 12:24:41 glimepiride 4 mg tablet [address] [facility], [address] [place] [address], [address], 3 12:24:40 Synthroid 100 mcg tablet [address] [facility], [address] [place] [address], [address], 3 12:23:17 Patient TargetsNo targets recorded. Patient [...] diabe andrea for child jennifer. Not Available [address], [address], 04/07/2022 13:33:14 04/06/20 22 04/07/2022 TSH TSH 2.20 mIU/L 0.40-4 .50 normal Not Available [address], [address], 04/07/2022 13:33:14 04/06/20 22 04/07/2022 T4, FREE T4, free 1.2 NG/dL 0.8-1. 8 normal Not Available [address], [address], 04/07/2022 13:33:13 04/06/20 22 04/07/2022 ALBUM IN, RANDO M URINE W/CRE ATINI NE creatinine, random urine 108 mg/dL 20-320 normal Not Available [address], [address], 04/07/2022 13:33:13 04/06/20 22 04/07/2022 ALBUM IN, RANDO M URINE W/CRE ATINI NE albumin, urine 1.3 mg/dL see note: normal Refer ence Range : Refer ence Range Not estab lishe d Not Available [address], [address], 04/07/2022 13:33:13 04/06/20 22 04/07/2022 ALBUM IN, [...] ostic categ ory. Not Available [facility] [address] [place], [address], 04/07/2022 13:33:13 04/06/20 22 04/07/2022 COMPR EHENS [...] kdoqi /gfr% 5Fcal culat or Not Available [facility] [address] [address] [place], [address], 04/07/2022 13:33:12 04/06/20 22 04/07/2022 COMPR EHENS JADA METAB OLIC PANEL glucose 105 mg/dL 65-99 high Fasti ng refer ence inter mitchel For someo ne witho ut known diabe andrea, a gluco se value betwe en 100 and 125 mg/dL is consi stent with predi abete s and shoul d be confi rmed with a follo w-up test. Not Available [facility] [address] [address], [place], [address], 04/07/2022 13:33:12 04/06/20 22 04/07/2022 COMPR EHENS JADA METAB OLIC PANEL urea nitrogen (BUN) 16 mg/dL 7-25 normal Not Available [facility] [address] [place], [address], 04/07/2022 13:33:12 04/06/20 22 04/07/2022 COMPR EHENS JADA METAB OLIC PANEL creatinine 0.88 mg/dL 0.70-1 .28 normal Not Available [address], [address], 04/07/2022 13:33:12 04/06/20 22 04/07/2022 COMPR EHENS JADA METAB OLIC PANEL BUN/creatini ne ratio not applic able (calc ) 6-22 Not Available [address], [address], 04/07/2022 13:33:12 04/06/20 22 04/07/2022 COMPR EHENS JADA METAB OLIC PANEL sodium 141 mmol/ L 135-14 6 normal Not Available [address], [address], 04/07/2022 13:33:12 04/06/20 22 04/07/2022 COMPR EHENS JADA METAB OLIC PANEL potassium 3.3 mmol/ L 3.5-5. 3 low Not Available [address], [address], 04/07/2022 13:33:12 04/06/20 22 04/07/2022 COMPR EHENS JADA METAB OLIC PANEL chloride 100 mmol/ L 98-110 normal Not Available [address], [address], 04/07/2022 13:33:12 04/06/20 22 04/07/2022 COMPR EHENS JADA METAB OLIC PANEL carbon dioxide 31 mmol/ L 20-32 normal Not Available [address], [address], 04/07/2022 13:33:12 04/06/20 22 04/07/2022 COMPR EHENS JADA METAB OLIC PANEL calcium 9.3 mg/dL 8.6-10 .3 normal Not Available [address], [address], 04/07/2022 13:33:12 04/06/20 22 04/07/2022 COMPR EHENS JADA METAB OLIC PANEL protein, total 6.8 g/dL 6.1-8. 1 normal Not Available [address], [address], 04/07/2022 13:33:12 04/06/20 22 04/07/2022 COMPR EHENS JADA METAB OLIC PANEL albumin 4.1 g/dL 3.6-5. 1 normal Not Available [address], [address], 04/07/2022 13:33:12 04/06/20 22 04/07/2022 COMPR EHENS JADA METAB OLIC PANEL globulin 2.7 g/dL_ (calc ) 1.9-3. 7 normal Not Available [address], [address], 04/07/2022 13:33:12 04/06/20 22 04/07/2022 COMPR EHENS JADA METAB OLIC PANEL albumin/glob ulin ratio 1.5 (calc ) 1.0-2. 5 normal Not Available [address], [address], 04/07/2022 13:33:12 04/06/20 22 04/07/2022 COMPR EHENS JADA METAB OLIC PANEL bilirubin, total 0.7 mg/dL 0.2-1. 2 normal Not Available [address], [address], 04/07/2022 13:33:12 04/06/20 22 04/07/2022 COMPR EHENS JADA METAB OLIC PANEL alkaline phosphatase 68 U/L 35-144 normal Not Available [address], [address], 04/07/2022 13:33:12 04/06/20 22 04/07/2022 COMPR EHENS JADA METAB OLIC PANEL AST 13 U/L 10-35 normal Not Available [address], [address], 04/07/2022 13:33:12 04/06/20 22 04/07/2022 COMPR EHENS JADA METAB OLIC PANEL ALT 12 U/L 9-46 normal Not Available [address], [address], 04/07/2022 13:33:12 04/06/20 22 04/07/2022 LIPID PANEL , STAND DARRYL chol/HDLC ratio 3.3 (calc ) <5.0 normal Not Available [address], [address], 04/07/2022 13:33:12 04/06/20 22 04/07/2022 LIPID PANEL , STAND DARRYL cholesterol, total 105 mg/dL <200 normal Not Available [address], [address], 04/07/2022 13:33:12 04/06/20 22 04/07/2022 LIPID PANEL , STAND DARRYL HDL cholesterol 32 mg/dL > or = 40 low Not Available [address], [address], 04/07/2022 13:33:12 04/06/20 22 04/07/2022 LIPID PANEL , STAND DARRYL triglyceride s 102 mg/dL <150 normal Not Available [address], [address], 04/07/2022 13:33:12 04/06/20 22 04/07/2022 LIPID PANEL , STAND DARRYL LDL-choleste rol 54 mg/dL _(columba c) normal Refer ence range : <100 Aicha able range <100 mg/dL for prima ry preve ntion ; <70 mg/dL for patie nts with CHD or diabe tic patie nts with > or = 2 CHD risk facto rs. LDL-C is now calcu lated using the [facility] n-Hop kins josefinau celewayne n, which is a valid ated novel tammy centeno accur acy than the Fried raji equat ion in the estim ation of LDL-C . Lana de anda SS et al. ARISTIDES. 2013; 310(1 9): 2061- 2068 (http ://ed ucati on.Qu estDi Everyone Countss. com/f aq/FA Q164) Not Available [facility] [address] [place], [address], 04/07/2022 13:33:12 04/06/20 22 04/07/2022 LIPID PANEL , STAND DARRYL non HDL cholesterol 73 mg/dL _(columba c) <130 normal For patie nts with diabe andrea plus 1 major ASCVD risk facto r, treat ing to a non-H DL-C goal of <100 mg/dL (LDL- C of <70 mg/dL ) is consi dered a thera peuti c optio n. Not Available [facility] [address] [address] , [place], [address], 04/07/2022 13:33:12 06/28/20 22 06/29/2022 HEMOG LOBIN [...] diabe andrea for child jennifer. Not Available [address], [address], 06/29/2022 19:15:30 06/28/20 22 06/29/2022 TSH+F REE T4 TSH 3.73 mIU/L 0.40-4 .50 normal Not Available [address], [address], 06/29/2022 19:15:30 06/28/20 22 06/29/2022 TSH+F REE T4 T4, free 1.2 NG/dL 0.8-1. 8 normal Not Available [address], [address], 06/29/2022 19:15:30 06/28/20 22 06/29/2022 T3, FREE T3, free 3.0 pg/mL 2.3-4. 2 normal Not Available [address], [address], 06/29/2022 19:15:29 06/28/20 22 06/29/2022 ALBUM IN, RANDO M URINE W/CRE ATINI NE creatinine, random urine 63 mg/dL 20-320 normal Not Available [address], [address], 06/29/2022 19:15:29 06/28/20 22 06/29/2022 ALBUM IN, RANDO M URINE W/CRE ATINI NE albumin, urine 0.6 mg/dL see note: normal Refer ence Range : Refer ence Range Not estab lishe d Not Available [address], [address], 06/29/2022 19:15:29 06/28/20 22 06/29/2022 ALBUM IN, [...] a diagn ostic categ ory. Not Available [facility] [address] [place], [address], 06/29/2022 19:15:29 06/28/20 22 06/29/2022 COMPR EHENS JADA METAB OLIC PANEL glucose 117 mg/dL 65-99 high Fasti ng refer ence inter mitchel For someo ne witho ut known diabe andrea, a gluco se value betwe en 100 and 125 mg/dL is consi stent with predi abete s and shoul d be confi rmed with a follo w-up test. Not Available [facility] [address] [address] [place], [address], 06/29/2022 19:15:28 06/28/20 22 06/29/2022 COMPR EHENS JADA METAB OLIC PANEL urea nitrogen (BUN) 10 mg/dL 7-25 normal Not Available [facility] [address] [address] [place], [address], 06/29/2022 19:15:28 06/28/20 22 06/29/2022 COMPR EHENS JADA METAB OLIC PANEL creatinine 0.88 mg/dL 0.70-1 .28 normal Not Available [facility] [address] [address] [place], [address], 06/29/2022 19:15:28 06/28/20 22 06/29/2022 COMPR EHENS JADA METAB OLIC PANEL eGFR 92 mL/mi n/1.7 3m2 > or = 60 normal The eGFR is based on the CKD-E PI 2020 equat ion. To calcu late the new eGFR from a previ ous Creat inine or Cysta hakan ferris, go to https ://francisco price.osman roth/westley hartmann s/ kdoqi /gfr% 5Fcal culat or Not Available [address] [address] [place], [address], 06/29/2022 19:15:28 06/28/20 22 06/29/2022 COMPR EHENS JADA METAB OLIC PANEL BUN/creatini ne ratio not applic able (calc ) 6-22 Not Available [address] [address] [place], [address], 06/29/2022 19:15:28 06/28/20 22 06/29/2022 COMPR EHENS JADA METAB OLIC PANEL sodium 142 mmol/ L 135-14 6 normal Not Available [address] [address] [place], [address], 06/29/2022 19:15:28 06/28/20 22 06/29/2022 COMPR EHENS JADA METAB OLIC PANEL potassium 3.6 mmol/ L 3.5-5. 3 normal Not Available [address] [address] [place], [address], 06/29/2022 19:15:28 06/28/20 22 06/29/2022 COMPR EHENS JADA METAB OLIC PANEL chloride 100 mmol/ L 98-110 normal Not Available [address] [address] [place], [address], 06/29/2022 19:15:28 06/28/20 22 06/29/2022 COMPR EHENS JADA METAB OLIC PANEL carbon dioxide 32 mmol/ L 20-32 normal Not Available [address] [address] [place], [address], 06/29/2022 19:15:28 06/28/20 22 06/29/2022 COMPR EHENS JADA METAB OLIC PANEL calcium 9.5 mg/dL 8.6-10 .3 normal Not Available [address], [address], 06/29/2022 19:15:28 06/28/20 22 06/29/2022 COMPR EHENS JADA METAB OLIC PANEL protein, total 7.1 g/dL 6.1-8. 1 normal Not Available [address], [address], 06/29/2022 19:15:28 06/28/20 22 06/29/2022 COMPR EHENS JADA METAB OLIC PANEL albumin 4.0 g/dL 3.6-5. 1 normal Not Available [address], [address], 06/29/2022 19:15:28 06/28/20 22 06/29/2022 COMPR EHENS JADA METAB OLIC PANEL globulin 3.1 g/dL_ (calc ) 1.9-3. 7 normal Not Available [address], [address], 06/29/2022 19:15:28 06/28/20 22 06/29/2022 COMPR EHENS JADA METAB OLIC PANEL albumin/glob ulin ratio 1.3 (calc ) 1.0-2. 5 normal Not Available [address], [address], 06/29/2022 19:15:28 06/28/20 22 06/29/2022 COMPR EHENS JADA METAB OLIC PANEL bilirubin, total 0.5 mg/dL 0.2-1. 2 normal Not Available [address], [address], 06/29/2022 19:15:28 06/28/20 22 06/29/2022 COMPR EHENS JADA METAB OLIC PANEL alkaline phosphatase 90 U/L 35-144 normal Not Available [facility] [address] [address] [place], [address], 06/29/2022 19:15:28 06/28/20 22 06/29/2022 COMPR EHENS JADA METAB OLIC PANEL AST 15 U/L 10-35 normal Not Available [address] [address] [place], [address], 06/29/2022 19:15:28 06/28/20 22 06/29/2022 COMPR EHENS JADA METAB OLIC PANEL ALT 18 U/L 9-46 normal Not Available [address] [address] [place], [address], 06/29/2022 19:15:28 06/28/20 22 06/29/2022 LIPID PANEL , STAND DARRYL non HDL cholesterol 105 mg/dL _(columba c) <130 normal For patie nts with diabe andrea plus 1 major ASCVD risk facto r, treat ing to a non-H DL-C goal of <100 mg/dL (LDL- C of <70 mg/dL ) is consi hoa vargaso n. Not Available [address] [address] [place], [address], 06/29/2022 19:15:28 06/28/20 22 06/29/2022 LIPID PANEL , STAND DARRYL cholesterol, total 138 mg/dL <200 normal Not Available [address] [address] [place], [address], 06/29/2022 19:15:28 06/28/20 22 06/29/2022 LIPID PANEL , STAND DARRYL HDL cholesterol 33 mg/dL > or = 40 low Not Available [address] [address] [place], [address], 06/29/2022 19:15:28 06/28/20 22 06/29/2022 LIPID PANEL , STAND DARRYL triglyceride s 162 mg/dL <150 high Not Available [facility] [address] [place], [address], 06/29/2022 19:15:28 06/28/20 22 06/29/2022 LIPID PANEL [...] 2061- 2068 (http ://ed ati on.Qu Stanley Liveset. com/f aq/FA Q164) Not Available [facility] [address] [address] , [place], [address], 06/29/2022 19:15:28 06/28/2006/29/2022 LIPID PANEL , STAND DARRYL chol/HDLC ratio 4.2 (calc ) <5.0 normal Not Available [facility] [address] [place], [address], 06/29/2022 19:15:28 09/17/19 23 09/18/2022 HEMOG LOBIN [...] for child jennifer. Not Available [facility] [address], [address], 09/18/2022 13:59:03 09/17/19 23 09/18/2022 T3, FREE T3, free 3.1 pg/mL 2.3-4. 2 normal Not Available [facility] [address], [address], 09/18/2022 13:59:02 09/17/19 23 09/18/2022 TSH TSH 6.04 mIU/L 0.40-4 .50 high Not Available [facility] [address], [address], 09/18/2022 13:59:02 09/17/19 23 09/18/2022 T4, FREE T4, free 1.2 NG/dL 0.8-1. 8 normal Not Available [facility] [address], [address], 09/18/2022 13:59:01 09/17/19 23 09/18/2022 CBC (INCL UDES DIFF/ PLT) hemoglobin 16.3 g/dL 13.2-1 7.1 normal Not Available [facility] [address], [address], 09/18/2022 13:59:01 09/17/19 23 09/18/2022 CBC (INCL UDES DIFF/ PLT) white blood cell count 12.2 thous and/u L 3.8-10 .8 high Not Available [facility] [address], [address], 09/18/2022 13:59:09/17/19 23 09/18/2022 CBC (INCL UDES DIFF/ PLT) red blood cell count 5.75 destini on/uL 4.20-5 .80 normal Not Available [address], [address], 09/18/2022 13:59:01 09/17/19 23 09/18/2022 CBC (INCL UDES DIFF/ PLT) hematocrit 48.5 % 38.5-5 0.0 normal Not Available [address], [address], 09/18/2022 13:59:01 09/17/19 23 09/18/2022 CBC (INCL UDES DIFF/ PLT) MCV 84.3 fL 80.0-1 00.0 normal Not Available [address], [address], 09/18/2022 13:59:01 09/17/19 23 09/18/2022 CBC (INCL UDES DIFF/ PLT) MCH 28.3 pg 27.0-3 3.0 normal Not Available [address], [address], 09/18/2022 13:59:01 09/17/19 23 09/18/2022 CBC (INCL UDES DIFF/ PLT) MCHC 33.6 g/dL 32.0-3 6.0 normal Not Available [address], [address], 09/18/2022 13:59:01 09/17/19 23 09/18/2022 CBC (INCL UDES DIFF/ PLT) RDW 13.0 % 11.0-1 5.0 normal Not Available [address], [address], 09/18/2022 13:59:01 09/17/19 23 09/18/2022 CBC (INCL UDES DIFF/ PLT) platelet count 285 thous and/u L 140-40 0 normal Not Available [facility] [place] [place] [address] [place], [address], 09/18/2022 13:59:01 09/17/19 23 09/18/2022 CBC (INCL UDES DIFF/ PLT) MPV 9.4 fL 7.5-12 .5 normal Not Available [address], [address], 09/18/2022 13:59:01 09/17/19 23 09/18/2022 CBC (INCL UDES DIFF/ PLT) absolute neutrophils 8296 cells /uL 1500-7 800 high Not Available [facility] [address], [address], 09/18/2022 13:59:01 09/17/19 23 09/18/2022 CBC (INCL UDES DIFF/ PLT) absolute lymphocytes 2940 cells /uL 850-39 00 normal Not Available [address], [address], 09/18/2022 13:59:01 09/17/19 23 09/18/2022 CBC (INCL UDES DIFF/ PLT) absolute monocytes 817 cells /uL 200-95 0 normal Not Available [address], [address], 09/18/2022 13:59:01 09/17/19 23 09/18/2022 CBC (INCL UDES DIFF/ PLT) absolute eosinophils 73 cells /uL 15-500 normal Not Available [facility] [address], [address], 09/18/2022 13:59:01 09/17/19 23 09/18/2022 CBC (INCL UDES DIFF/ PLT) absolute basophils 73 cells /uL 0-200 normal Not Available [facility] [address], [address], 09/18/2022 13:59:01 09/17/19 23 09/18/2022 CBC (INCL UDES DIFF/ PLT) neutrophils 68 % normal Not Available [address], [address], 09/18/2022 13:59:01 09/17/19 23 09/18/2022 CBC (INCL UDES DIFF/ PLT) lymphocytes 24.1 % normal Not Available [address], [address], 09/18/2022 13:59:01 09/17/19 23 09/18/2022 CBC (INCL UDES DIFF/ PLT) monocytes 6.7 % normal Not Available [address], [address], 09/18/2022 13:59:01 09/17/19 23 09/18/2022 CBC (INCL UDES DIFF/ PLT) eosinophils 0.6 % normal Not Available [address], [address], 09/18/2022 13:59:01 09/17/19 23 09/18/2022 CBC (INCL UDES DIFF/ PLT) basophils 0.6 % normal Not Available [address], [address], 09/18/2022 13:59:01 09/17/19 23 09/18/2022 ALBUM IN, RANDO M URINE W/CRE ATINI NE creatinine, random urine 67 mg/dL 20-320 normal Not Available [address], [address], 09/18/2022 13:59:00 09/17/19 23 09/18/2022 ALBUM IN, RANDO M URINE W/CRE ATINI NE albumin, urine 1.1 mg/dL see note: normal Refer ence Range : Refer ence Range Not estab lishe d Not Available [address], [address], 09/18/2022 13:59:00 09/17/19 23 09/18/2022 ALBUM IN, [...] a diagn ostic categ ory. Not Available [address] [address] [place], [address], 09/18/2022 13:59:00 09/17/19 23 09/18/2022 LIPID PANEL , STAND DARRYL chol/HDLC ratio 3.5 (calc ) <5.0 normal Not Available [address] [place], [address], 09/18/2022 13:59:00 09/17/19 23 09/18/2022 LIPID PANEL , STAND DARRYL cholesterol, total 138 mg/dL <200 normal Not Available [address] [address] [place], [address], 09/18/2022 13:59:00 09/17/19 23 09/18/2022 LIPID PANEL , STAND DARRYL HDL cholesterol 40 mg/dL > or = 40 normal Not Available [facility] [address] [address] [place], [address], 09/18/2022 13:59:00 09/17/19 23 09/18/2022 LIPID PANEL , STAND DARRYL triglyceride s 156 mg/dL <150 high Not Available [address] [place], [address], 09/18/2022 13:59:00 09/17/19 23 09/18/2022 LIPID PANEL [...] 9): 2061- 2068 (http ://ed ucati on.Qu SnapOne. CFX BATTERY/f aq/FA Q164) Not Available [address] [address] [place], [address], 09/18/2022 13:59:00 09/17/19 23 09/18/2022 LIPID PANEL , STAND DARRYL non HDL cholesterol 98 mg/dL _(columba c) <130 normal For patie nts with diabe andrea plus 1 major ASCVD risk facto r, treat ing to a non-H DL-C goal of <100 mg/dL (LDL- C of <70 mg/dL ) is consi dered a therisacc jacobo optio n. Not Available [address] [address] [address] , [place], [address], 09/18/2022 13:59:00 11/17/19 23 11/19/2022 TESTO STERO NE, FREE, BIOAV AILAB LE AND TOTAL , MS albumin 4.2 g/dL 3.6-5. 1 Not Available [facility] [address] [place], [address], 11/19/2022 15:09:10 11/17/19 23 11/19/2022 TESTO STERO NE, FREE, BIOAV AILAB LE AND TOTAL , MS sex hormone binding globulin 59.3 nmol/ L 22-77 Not Available [facility] [address] [address] [place], [address], 11/19/2022 15:09:10 11/17/19 23 11/19/2022 TESTO STERO NE, FREE, BIOAV AILAB LE AND TOTAL , MS testosterone , free 41.7 pg/mL 6.0-73 .0 Not Available [facility] [address] [address] [address] , [place], [address], 11/19/2022 15:09:10 11/17/19 23 11/19/2022 TESTO STERO NE, FREE, BIOAV AILAB LE AND TOTAL , MS testosterone ,bioavailabl e 80.2 NG/dL 15.0-1 50.0 Not Available [facility] [address] [address] [place], [address], 11/19/2022 15:09:10 11/17/19 23 11/19/2022 TESTO STERO NE, FREE, BIOAV AILAB LE AND TOTAL , MS testosterone , total, MS 512 NG/dL 250-11 00 For addit ional oscar mejia e refer to https ://ed ucati on.qu estRentJiffy. CFX BATTERY/f aq/FA Q165 (This link is being provi ded for infor fara nal/e ducat ional purpo ses only. ) (Note ) This test was devel oped and its sloan tical perfo rmanc e vance cteri stics have been deter mined by [employer] [facility]. It has not been clear ed or appro lovely by the FDA. This assay has been valid ated pursu ant to the CLIA regul ation s and is used for clini columba purpo ses. KATIA de anda [address] [facility] [address] [place] [address] [phone] Gorge guadalupe MD Not Available [facility] [address] [address] [place], [address], 11/19/2022 15:09:10 02/09/20 23 02/09/2023 LIPID PANEL , STAND DARRYL cholesterol, total 98 mg/dL <200 normal Not Available [address], [address], 02/09/2023 10:24:35 02/09/20 23 02/09/2023 LIPID PANEL , STAND DARRYL HDL cholesterol 27 mg/dL > or = 40 low Not Available [address], [address], 02/09/2023 10:24:35 02/09/20 23 02/09/2023 LIPID PANEL , STAND DARRYL triglyceride s 102 mg/dL <150 normal Not Available [address], [address], 02/09/2023 10:24:35 02/09/20 23 02/09/2023 LIPID PANEL [...] 2061- 2068 (http ://ed ucati on.Qu estDi Everyone Countss. com/f aq/FA Q164) Not Available [address], [address], 02/09/2023 10:24:35 02/09/20 23 02/09/2023 LIPID PANEL , STAND DARRYL chol/HDLC ratio 3.6 (calc ) <5.0 normal Not Available [address] [place], [address], 02/09/2023 10:24:35 02/09/20 23 02/09/2023 LIPID PANEL , STAND DARRYL non HDL cholesterol 71 mg/dL _(columba c) <130 normal For patie nts with diabe andrea plus 1 major ASCVD risk facto r, treat ing to a non-H DL-C goal of <100 mg/dL (LDL- C of <70 mg/dL ) is consi dered a thera peuti c optio n. Not Available [address], [address], 02/09/2023 10:24:35 02/09/2002/09/2023 COMPR EHENS JADA METAB OLIC PANEL glucose 109 mg/dL 65-99 high Fasti ng refer ence inter mitchel For someo ne witho ut known diabe andrea, a gluco se value betwe en 100 and 125 mg/dL is consi stent with predi abete s and shoul d be confi rmed with a follo w-up test. Not Available [facility] [address], [address], 02/09/2023 10:24:36 02/09/20 23 02/09/2023 COMPR EHENS JADA METAB OLIC PANEL urea nitrogen (BUN) 18 mg/dL 7-25 normal Not Available [facility] [address], [address], 02/09/2023 10:24:36 02/09/2002/09/2023 COMPR EHENS JADA METAB OLIC PANEL creatinine 0.82 mg/dL 0.70-1 .28 normal Not Available [facility] [address], [address], 02/09/2023 10:24:36 02/09/20 23 02/09/2023 COMPR EHENS [...] kdoqi /gfr% 5Fcal culat or Not Available [address] [address] [place], [address], 02/09/2023 10:24:36 02/09/20 23 02/09/2023 COMPR EHENS JADA METAB OLIC PANEL BUN/creatini ne ratio NOT APPLIC ABLE (calc ) 6-22 Not Available [address], [address], 02/09/2023 10:24:36 02/09/20 23 02/09/2023 COMPR EHENS JADA METAB OLIC PANEL sodium 142 mmol/ L 135-14 6 normal Not Available [address], [address], 02/09/2023 10:24:36 02/09/20 23 02/09/2023 COMPR EHENS JADA METAB OLIC PANEL potassium 3.7 mmol/ L 3.5-5. 3 normal Not Available [address], [address], 02/09/2023 10:24:36 02/09/20 23 02/09/2023 COMPR EHENS JADA METAB OLIC PANEL chloride 101 mmol/ L 98-110 normal Not Available [address], [address], 02/09/2023 10:24:36 02/09/20 23 02/09/2023 COMPR EHENS JADA METAB OLIC PANEL carbon dioxide 29 mmol/ L 20-32 normal Not Available [address], [address], 02/09/2023 10:24:36 02/09/20 23 02/09/2023 COMPR EHENS JADA METAB OLIC PANEL calcium 9.3 mg/dL 8.6-10 .3 normal Not Available [address], [address], 02/09/2023 10:24:36 02/09/20 23 02/09/2023 COMPR EHENS JADA METAB OLIC PANEL protein, total 6.7 g/dL 6.1-8. 1 normal Not Available [address], [address], 02/09/2023 10:24:36 02/09/20 23 02/09/2023 COMPR EHENS JADA METAB OLIC PANEL albumin 4.0 g/dL 3.6-5. 1 normal Not Available [address], [address], 02/09/2023 10:24:36 02/09/20 23 02/09/2023 COMPR EHENS JADA METAB OLIC PANEL globulin 2.7 g/dL_ (calc ) 1.9-3. 7 normal Not Available [address], [address], 02/09/2023 10:24:36 02/09/20 23 02/09/2023 COMPR EHENS JADA METAB OLIC PANEL albumin/glob ulin ratio 1.5 (calc ) 1.0-2. 5 normal Not Available [address], [address], 02/09/2023 10:24:36 02/09/20 23 02/09/2023 COMPR EHENS JADA METAB OLIC PANEL bilirubin, total 0.6 mg/dL 0.2-1. 2 normal Not Available [address], [address], 02/09/2023 10:24:36 02/09/20 23 02/09/2023 COMPR EHENS JADA METAB OLIC PANEL alkaline phosphatase 78 U/L 35-144 normal Not Available [address] [address] [place], [address], 02/09/2023 10:24:36 02/09/20 23 02/09/2023 COMPR EHENS JADA METAB OLIC PANEL AST 13 U/L 10-35 normal Not Available [address] [address] [place], [address], 02/09/2023 10:24:36 02/09/20 23 02/09/2023 COMPR EHENS JADA METAB OLIC PANEL ALT 13 U/L 9-46 normal Not Available [address] [address] [place], [address], 02/09/2023 10:24:36 02/09/20 23 02/09/2023 ALBUM IN, RANDO M URINE W/CRE ATINI NE creatinine, random urine 110 mg/dL 20-320 normal Not Available [address] [address] [place], [address], 02/09/2023 10:24:37 02/09/20 23 02/09/2023 ALBUM IN, RANDO M URINE W/CRE ATINI NE albumin, urine 1.4 mg/dL see note: normal Refer ence Range : Refer ence Range Not estab lishe d Not Available [address] [address] [place], [address], 02/09/2023 10:24:37 02/09/20 23 02/09/2023 ALBUM IN, [...] a diagn ostic categ ory. Not Available [address], [address], 02/09/2023 10:24:37 02/09/20 23 02/09/2023 CBC (INCL UDES DIFF/ PLT) white blood cell count 9.5 thous and/u L 3.8-10 .8 normal Not Available [address], [address], 02/09/2023 10:24:37 02/09/2002/09/2023 CBC (INCL UDES DIFF/ PLT) red blood cell count 5.50 destini on/uL 4.20-5 .80 normal Not Available [address], [address], 02/09/2023 10:24:37 02/09/20 23 02/09/2023 CBC (INCL UDES DIFF/ PLT) hemoglobin 15.5 g/dL 13.2-1 7.1 normal Not Available [address], [address], 02/09/2023 10:24:37 02/09/20 23 02/09/2023 CBC (INCL UDES DIFF/ PLT) hematocrit 45.8 % 38.5-5 0.0 normal Not Available [address], [address], 02/09/2023 10:24:37 02/09/20 23 02/09/2023 CBC (INCL UDES DIFF/ PLT) MCV 83.3 fL 80.0-1 00.0 normal Not Available [address], [address], 02/09/2023 10:24:37 02/09/20 23 02/09/2023 CBC (INCL UDES DIFF/ PLT) MCH 28.2 pg 27.0-3 3.0 normal Not Available [address], [address], 02/09/2023 10:24:37 02/09/20 23 02/09/2023 CBC (INCL UDES DIFF/ PLT) MCHC 33.8 g/dL 32.0-3 6.0 normal Not Available [address], [address], 02/09/2023 10:24:37 02/09/20 23 02/09/2023 CBC (INCL UDES DIFF/ PLT) RDW 13.1 % 11.0-1 5.0 normal Not Available [address], [address], 02/09/2023 10:24:37 02/09/20 23 02/09/2023 CBC (INCL UDES DIFF/ PLT) platelet count 232 thous and/u L 140-40 0 normal Not Available [address], [address], 02/09/2023 10:24:37 02/09/2002/09/2023 CBC (INCL UDES DIFF/ PLT) MPV 8.8 fL 7.5-12 .5 normal Not Available [address], [address], 02/09/2023 10:24:37 02/09/20 23 02/09/2023 CBC (INCL UDES DIFF/ PLT) absolute neutrophils 6251 cells /uL 1500-7 800 normal Not Available [address], [address], 02/09/2023 10:24:37 02/09/2002/09/2023 CBC (INCL UDES DIFF/ PLT) absolute lymphocytes 2290 cells /uL 850-39 00 normal Not Available [address], [address], 02/09/2023 10:24:37 02/09/20 23 02/09/2023 CBC (INCL UDES DIFF/ PLT) absolute monocytes 789 cells /uL 200-95 0 normal Not Available [address], [address], 02/09/2023 10:24:37 02/09/20 23 02/09/2023 CBC (INCL UDES DIFF/ PLT) absolute eosinophils 114 cells /uL 15-500 normal Not Available [address], [address], 02/09/2023 10:24:37 02/09/20 23 02/09/2023 CBC (INCL UDES DIFF/ PLT) absolute basophils 57 cells /uL 0-200 normal Not Available [address], [address], 02/09/2023 10:24:37 02/09/20 23 02/09/2023 CBC (INCL UDES DIFF/ PLT) neutrophils 65.8 % normal Not Available [address], [address], 02/09/2023 10:24:37 02/09/20 23 02/09/2023 CBC (INCL UDES DIFF/ PLT) lymphocytes 24.1 % normal Not Available [address], [address], 02/09/2023 10:24:37 02/09/20 23 02/09/2023 CBC (INCL UDES DIFF/ PLT) monocytes 8.3 % normal Not Available [facility] [address], [address], 02/09/2023 10:24:37 02/09/20 23 02/09/2023 CBC (INCL UDES DIFF/ PLT) eosinophils 1.2 % normal Not Available [address], [address], 02/09/2023 10:24:37 02/09/20 23 02/09/2023 CBC (INCL UDES DIFF/ PLT) basophils 0.6 % normal Not Available [facility] [address], [address], 02/09/2023 10:24:37 02/09/20 23 02/09/2023 T4, FREE T4, free 1.2 NG/dL 0.8-1. 8 normal Not Available [facility] [address], [address], 02/09/2023 10:24:38 02/09/2002/09/2023 TSH TSH 2.42 mIU/L 0.40-4 .50 normal Not Available [address], [address], 02/09/2023 10:24:38 02/09/2002/09/2023 VITAM IN B12/F OLATE [...] pg/mL will have sympt oms. Not Available [address], [address], 02/09/2023 10:24:39 02/09/2002/09/2023 VITAM IN B12/F OLATE , SERUM PANEL folate, serum >24.0 NG/mL normal Refer ence Range Low: <3.4 Borde rline : 3.4-5 .4 Karin l: >5.4 Not Available [facility] [address], [address], 02/09/2023 10:24:39 02/09/20 23 02/09/2023 SEX HORMO NE GINA NG GLOBU PEG sex hormone binding globulin 58 nmol/ L 22-77 normal Not Available [facility] [address] [place], [address], 02/09/2023 10:24:40 02/09/2002/09/2023 T3, FREE T3, free 3.5 pg/mL 2.3-4. 2 normal Not Available [facility] [address] [address] , [place], [address], 02/09/2023 10:24:40 02/09/2002/09/2023 HEMOG LOBIN A1C hemoglobin [...] for child jennifer. Not Available [facility] [address] [place], [address], 02/09/2023 10:24:41 05/07/2005/10/2023 TESTO STERO NE, FREE, BIOAV AILAB LE AND TOTAL , MS albumin 4.1 g/dL 3.6-5. 1 Not Available [facility] [address] [place], [address], 05/10/2023 14:35:40 05/07/20 23 05/10/2023 TESTO STERO NE, FREE, BIOAV AILAB LE AND TOTAL , MS sex hormone binding globulin 55.7 nmol/ L 22-77 Not Available [address], [address], 05/10/2023 14:35:40 05/07/20 23 05/10/2023 TESTO STERO NE, FREE, BIOAV AILAB LE AND TOTAL , MS testosterone , free 44.2 pg/mL 6.0-73 .0 Not Available [address], [address], 05/10/2023 14:35:40 05/07/2005/10/2023 TESTO STERO NE, FREE, BIOAV AILAB LE AND TOTAL , MS testosterone ,bioavailabl e 83.2 NG/dL 15.0-1 50.0 Not Available [address], [address], 05/10/2023 14:35:40 05/07/2005/10/2023 TESTO STERO NE, FREE, BIOAV AILAB LE AND TOTAL , MS testosterone , total, MS 510 NG/dL 250-11 00 For addit ional claytonr oscar marroquin e refer to https ://ed ucati on.qu stanley Lives[employer]. CFX BATTERY/f aq/FA Q165 (This link is being provi ded for infor fara nal/e ducat ional purpo ses only. ) (Note ) This test was devel oped and its sloan tical perfo rmanc e vance cteri stics have been deter mined by [employer]. It has not been clear ed or appro lovely by the FDA. This assay has been valid ated pursu ant to the CLIA regul ation s and is used for clini columb[place] purpo ses. MDF med fuswayne n [address] [facility] [address] [facility] [address] [phone] Nico marcial MD Not Available [facility] [address] [place], [address], 05/10/2023 14:35:40 05/07/20 23 05/10/2023 LIPID PANEL , STAND DARRYL cholesterol, total 113 mg/dL <200 normal Not Available [facility] [address] [place], [address], 05/10/2023 14:35:41 05/07/20 23 05/10/2023 LIPID PANEL , STAND DARRYL HDL cholesterol 29 mg/dL > or = 40 low Not Available [facility] [address] [address] [place], [address], 05/10/2023 14:35:41 05/07/20 23 05/10/2023 LIPID PANEL , STAND DARRYL triglyceride s 148 mg/dL <150 normal Not Available [facility] [address] [address] [place], [address], 05/10/2023 14:35:41 05/07/20 23 05/10/2023 LIPID PANEL [...] com/f aq/FA Q164) Not Available [facility] [address] [place], [address], 05/10/2023 14:35:41 05/07/20 23 05/10/2023 LIPID PANEL , STAND DARRYL chol/HDLC ratio 3.9 (calc ) <5.0 normal Not Available [address], [address], 05/10/2023 14:35:41 05/07/20 23 05/10/2023 LIPID PANEL , STAND DARRYL non HDL cholesterol 84 mg/dL _(columba c) <130 normal For patie nts with diabe andrea plus 1 major ASCVD risk facto r, treat ing to a non-H DL-C goal of <100 mg/dL (LDL- C of <70 mg/dL ) is consi hoa jacobo optio n. Not Available [address], [address], 05/10/2023 14:35:41 05/07/2005/10/2023 COMPR EHENS JADA METAB OLIC PANEL glucose 162 mg/dL 65-99 high Fasti ng refer ence inter mitchel For someo ne witho ut known diabe andrea, a gluco se value >125 mg/dL indic ates that they may have diabe andrea and this shoul d be confi rmed with a follo w-up test. Not Available [address], [address], 05/10/2023 14:35:42 05/07/2005/10/2023 COMPR EHENS JADA METAB OLIC PANEL urea nitrogen (BUN) 14 mg/dL 7-25 normal Not Available [facility] [address] [address] [place], [address], 05/10/2023 14:35:42 05/07/2005/10/2023 COMPR EHENS JADA METAB OLIC PANEL creatinine 0.95 mg/dL 0.70-1 .28 normal Not Available [facility] [address] [address] [place], [address], 05/10/2023 14:35:42 05/07/20 23 05/10/2023 COMPR EHENS JADA METAB OLIC PANEL eGFR 85 mL/mi n/1.7 3m2 > or = 60 normal Not Available [address], [address], 05/10/2023 14:35:42 05/07/20 23 05/10/2023 COMPR EHENS JADA METAB OLIC PANEL BUN/creatini ne ratio SEE NOTE: (calc ) 6-22 Not Repor lino: BUN and Creat inine are withi n refer ence range . Not Available [address], [address], 05/10/2023 14:35:42 05/07/20 23 05/10/2023 COMPR EHENS JADA METAB OLIC PANEL sodium 140 mmol/ L 135-14 6 normal Not Available [address], [address], 05/10/2023 14:35:42 05/07/20 23 05/10/2023 COMPR EHENS JADA METAB OLIC PANEL potassium 3.8 mmol/ L 3.5-5. 3 normal Not Available [address], [address], 05/10/2023 14:35:42 05/07/20 23 05/10/2023 COMPR EHENS JADA METAB OLIC PANEL chloride 101 mmol/ L 98-110 normal Not Available [address], [address], 05/10/2023 14:35:42 05/07/20 23 05/10/2023 COMPR EHENS JADA METAB OLIC PANEL carbon dioxide 31 mmol/ L 20-32 normal Not Available [address], [address], 05/10/2023 14:35:42 05/07/20 23 05/10/2023 COMPR EHENS JADA METAB OLIC PANEL calcium 9.5 mg/dL 8.6-10 .3 normal Not Available [address], [address], 05/10/2023 14:35:42 05/07/20 23 05/10/2023 COMPR EHENS JADA METAB OLIC PANEL protein, total 6.8 g/dL 6.1-8. 1 normal Not Available [address], [address], 05/10/2023 14:35:42 05/07/20 23 05/10/2023 COMPR EHENS JADA METAB OLIC PANEL albumin 4.2 g/dL 3.6-5. 1 normal Not Available [address], [address], 05/10/2023 14:35:42 05/07/20 23 05/10/2023 COMPR EHENS JADA METAB OLIC PANEL globulin 2.6 g/dL_ (calc ) 1.9-3. 7 normal Not Available [address], [address], 05/10/2023 14:35:42 05/07/20 23 05/10/2023 COMPR EHENS JADA METAB OLIC PANEL albumin/glob ulin ratio 1.6 (calc ) 1.0-2. 5 normal Not Available [address], [address], 05/10/2023 14:35:42 05/07/20 23 05/10/2023 COMPR EHENS JADA METAB OLIC PANEL bilirubin, total 0.5 mg/dL 0.2-1. 2 normal Not Available [address], [address], 05/10/2023 14:35:42 05/07/20 23 05/10/2023 COMPR EHENS JADA METAB OLIC PANEL alkaline phosphatase 88 U/L 35-144 normal Not Available [address], [address], 05/10/2023 14:35:42 05/07/20 23 05/10/2023 COMPR EHENS JADA METAB OLIC PANEL AST 14 U/L 10-35 normal Not Available [address] [address] [place], [address], 05/10/2023 14:35:42 05/07/20 23 05/10/2023 COMPR EHENS JADA METAB OLIC PANEL ALT 18 U/L 9-46 normal Not Available [address] [address] [place], [address], 05/10/2023 14:35:42 05/07/20 23 05/10/2023 ALBUM IN, RANDO M URINE W/CRE ATINI NE creatinine, random urine 66 mg/dL 20-320 normal Not Available [address] [address] [place], [address], 05/10/2023 14:35:42 05/07/20 23 05/10/2023 ALBUM IN, RANDO M URINE W/CRE ATINI NE albumin, urine 0.8 mg/dL see note: normal Refer ence Range : Refer ence Range Not estab lishe d Not Available [address] [address] [place], [address], 05/10/2023 14:35:42 05/07/20 23 05/10/2023 ALBUM IN, [...] a diagn ostic categ ory. Not Available [address], [address], 05/10/2023 14:35:42 05/07/20 23 05/10/2023 CBC (INCL UDES DIFF/ PLT) white blood cell count 8.2 thous and/u L 3.8-10 .8 normal Not Available [address], [address], 05/10/2023 14:35:43 05/07/2005/10/2023 CBC (INCL UDES DIFF/ PLT) red blood cell count 5.44 destini on/uL 4.20-5 .80 normal Not Available [address], [address], 05/10/2023 14:35:43 05/07/20 23 05/10/2023 CBC (INCL UDES DIFF/ PLT) hemoglobin 16.3 g/dL 13.2-1 7.1 normal Not Available [address], [address], 05/10/2023 14:35:43 05/07/2005/10/2023 CBC (INCL UDES DIFF/ PLT) hematocrit 46.0 % 38.5-5 0.0 normal Not Available [address], [address], 05/10/2023 14:35:43 05/07/20 23 05/10/2023 CBC (INCL UDES DIFF/ PLT) MCV 84.6 fL 80.0-1 00.0 normal Not Available [address], [address], 05/10/2023 14:35:43 05/07/20 23 05/10/2023 CBC (INCL UDES DIFF/ PLT) MCH 30.0 pg 27.0-3 3.0 normal Not Available [facility] [address] [address], [place], [address], 05/10/2023 14:35:43 05/07/2005/10/2023 CBC (INCL UDES DIFF/ PLT) MCHC 35.4 g/dL 32.0-3 6.0 normal Not Available [address], [address], 05/10/2023 14:35:43 05/07/20 23 05/10/2023 CBC (INCL UDES DIFF/ PLT) RDW 13.2 % 11.0-1 5.0 normal Not Available [address], [address], 05/10/2023 14:35:43 05/07/20 23 05/10/2023 CBC (INCL UDES DIFF/ PLT) platelet count 257 thous and/u L 140-40 0 normal Not Available [address], [address], 05/10/2023 14:35:43 05/07/20 23 05/10/2023 CBC (INCL UDES DIFF/ PLT) MPV 8.9 fL 7.5-12 .5 normal Not Available [address], [address], 05/10/2023 14:35:43 05/07/2005/10/2023 CBC (INCL UDES DIFF/ PLT) absolute neutrophils 4879 cells /uL 1500-7 800 normal Not Available [address], [address], 05/10/2023 14:35:43 05/07/2005/10/2023 CBC (INCL UDES DIFF/ PLT) absolute lymphocytes 2378 cells /uL 850-39 00 normal Not Available [address], [address], 05/10/2023 14:35:43 05/07/20 23 05/10/2023 CBC (INCL UDES DIFF/ PLT) absolute monocytes 763 cells /uL 200-95 0 normal Not Available [address], [address], 05/10/2023 14:35:43 05/07/20 23 05/10/2023 CBC (INCL UDES DIFF/ PLT) absolute eosinophils 123 cells /uL 15-500 normal Not Available [facility] [address], [address], 05/10/2023 14:35:43 05/07/20 23 05/10/2023 CBC (INCL UDES DIFF/ PLT) absolute basophils 57 cells /uL 0-200 normal Not Available [facility] [address], [address], 05/10/2023 14:35:43 05/07/20 23 05/10/2023 CBC (INCL UDES DIFF/ PLT) neutrophils 59.5 % normal Not Available [facility] [address], [address], 05/10/2023 14:35:43 05/07/20 23 05/10/2023 CBC (INCL UDES DIFF/ PLT) lymphocytes 29.0 % normal Not Available [facility] [address], [address], 05/10/2023 14:35:43 05/07/20 23 05/10/2023 CBC (INCL UDES DIFF/ PLT) monocytes 9.3 % normal Not Available [facility] [address], [address], 05/10/2023 14:35:43 05/07/20 23 05/10/2023 CBC (INCL UDES DIFF/ PLT) eosinophils 1.5 % normal Not Available [facility] [address], [address], 05/10/2023 14:35:43 05/07/20 23 05/10/2023 CBC (INCL UDES DIFF/ PLT) basophils 0.7 % normal Not Available [address], [address], 05/10/2023 14:35:43 05/07/2005/10/2023 VITAM IN B12 vitamin B12 560 pg/mL 200-11 00 normal Not Available [address], [address], 05/10/2023 14:35:44 05/07/2005/10/2023 T3, FREE T3, free 3.5 pg/mL 2.3-4. 2 normal Not Available [address], [address], 05/10/2023 14:35:44 05/07/20 23 05/10/2023 TSH+F REE T4 TSH 2.64 mIU/L 0.40-4 .50 normal Not Available [address], [address], 05/10/2023 14:35:45 05/07/2005/10/2023 TSH+F REE T4 T4, free 1.0 NG/dL 0.8-1. 8 normal Not Available [address], [address], 05/10/2023 14:35:45 05/07/2005/10/2023 HEMOG LOBIN A1C hemoglobin [...] diabe andrea for child jennifer. Not Available [facility] [address] [address] [address] , [place], [address], 05/10/2023 14:35:46 Result Notes None recorded. Problems Name Problem SNOMED Code Status Onset Date Resolution Date Notes Provider Name and Address Organization Details Recorded Time Dyslipidemia 516037508 Active 2021 Not Available [facility] 3 23:30:01 Uncontrolled type 2 diabetes mellitus 549410267 Active 2021 Not Available [facility] 3 23:30:01 Fatigue 25911477 Active 2022 Tia Braun MD [address] [facility], [address], [address] , [facility] [employer] - [place] 3 14:13:53 Well controlled type 2 diabetes mellitus 335544701 Active 2022 Tia Braun MD [address] [facility], [place] [address], [place], [address] , [employer] [facility] 3 12:35:24 Hypothyroidis m 43500525 Active 2022 NIHARIKA Ervin null, In [employer] [facility] [employer] [facility] 3 17:26:46 Vitamin B12 deficiency (non anemic) 63302572 Active 2022 Sarah Wagner null, [employer] [facility] [employer] [facility] 3 09:36:03 Problem Notes None recorded. Procedures Surgical History Date Name Laterality Status Provider Name and Address Organization Details Recorded Time Colonoscopy & polypectomy completed Not Available [facility] 10/31/2022 23:28:47 Hernia Repair completed Not Available [facility] 10/31/2022 23:28:47 Pacemaker completed Not Available [place] [address] 10/31/2022 23:28:47 Kidney Stones completed Not Available [facility] 10/31/2022 23:28:47 Lasik completed Not Available [facility] 09/2022 23:28:47 Tonsillectomy completed Not Available [facility] 10/31/2022 23:28:47 cervical spinal fusion for pseudoarthrosis completed Not Available [facility] 10/31/2022 23:28:47 Hemorrhoidectomy completed Not Available [facility] 10/31/2022 23:28:47 implantation of cardiac pacemaker completed Not Available [facility] 23:28:47 myelogram completed Not Available [place] [address] 10/31/2022 23:28:47 Colonoscopy completed Not Available [facility] 10/31/2022 23:28:47 Laparoscopic cholecystectomy completed Not Available [facility] 10/31/2022 23:28:47 Imaging Results None recorded. Procedure Notes None recorded. Medical Equipment None Reported. Allergies Allergen ID Allergen Name Allergen Category Reaction Reaction Severity Criticality Documentation Date Start Date Code Code System Note Provider Name and Address Organization Details Recorded Time 73567 atropine medicatio n Not available Not available Not available 10/31/2022 1223 RxNorm Not Available [facility] 23:31:13 Medications Name Sig Start Date Stop [...] % 96 % 85 /min 97.3 [degF] 66929.1 g 120 mm[Hg] 60 mm[Hg] Not Available [facility] 3 23:29:05 Date Recorded Body mass index (BMI) Body height Oxygen saturation Oxygen saturation in Arterial blood by Pulse oximetry Heart rate Body temperature Body weight Systolic blood pressure Diastolic blood pressure Provider Name and Address Organization Details Last Updated DateTime 2 31.6 kg/m2 170.18 cm 96 % 96 % 67 /min 97.8 [degF] 25421.6 6 g 140 mm[Hg] 90 mm[Hg] Not Available [facility] 3 23:29:04 Date Recorded Body mass index (BMI) Body height Oxygen saturation Oxygen saturation in Arterial blood by Pulse oximetry Heart rate Body temperature Body weight Systolic blood pressure Diastolic blood pressure Provider Name and Address Organization Details Last Updated DateTime 2 30.9 kg/m2 170.18 cm 99 % 99 % 68 /min 97.8 [degF] 67006.7 g 130 mm[Hg] 70 mm[Hg] Not Available [facility] 3 23:29:05 Date Recorded Body height Body mass index (BMI) Body weight Body temperature Heart rate Respiratory rate Systolic blood pressure Diastolic blood pressure Provider Name and Address Organization Details Last Updated DateTime 3 170.18 cm 30.3 kg/m2 00345.4 8 g 97.7 [degF] 67 /min 16 /min 126 mm[Hg] 67 mm[Hg] Siria Weir RN [place] [employer] [facility] 3 11:24:34 Date Recorded Body mass index (BMI) Body height Oxygen saturation Oxygen saturation in Arterial blood by Pulse oximetry Heart rate Body temperature Body weight Systolic blood pressure Diastolic blood pressure Provider Name and Address Organization Details Last Updated DateTime 2 30.9 kg/m2 170.18 cm 99 % 99 % 70 /min 97.4 [degF] 93177.7 g 120 mm[Hg] 70 mm[Hg] Not Available [facility] 3 23:29:05 Social History Question Answer Notes LastModified by Lela Details LastModified Time Tobacco Smoking Status Former Smoker Not Available [facility] 10/31/2022 23:28:26 What Is Your Level Of Caffeine Consumption? Heavy [id number] Information not available 10/31/2022 What Is The Highest Grade Or Level Of School You Have Completed Or The Highest Degree You Have Received? [id number] Information not available 10/31/2022 When Did You Quit Smoking? 16+yearssinc elastcigaret te [id number] Information not available 10/31/2022 Have You Ever Been Counseled For Unhealthy Alcohol Use? No [id number] Information not available 10/31/2022 What Is Your Relationship Status? [id number] Information not available 10/31/2022 Has Tobacco Cessation Counseling Been Provided? No [id number] Information not available 10/31/2022 Sex: Male Functional Status Question Answer Note LastModified by Lela Details LastModified Time Do you use any illicit or recreational drugs? No [id number] Information not available 10/31/2022 Do you or have you ever used any other forms of tobacco or nicotine? No [id number] Information not available 10/31/2022 What is your level of alcohol consumption? Occasional [id number] Information not available 10/31/2022 Mental Status None recorded. Family History Relationship Description Onset Age of this Age Resolved Age Notes LastModified by Organization Details LastModified Time Paternal Grandmother Diabetes mellitus [id number] Not available 10/31/2022 23:28:48 Father Myocardial infarction [id number] Not available 10/31/2022 23:28:48 Brother Myocardial infarction [id number] Not available 10/31/2022 23:28:48 Paternal Grandfather Chronic obstructive pulmonary disease [id number] Not available 10/31/2022 23:28:48 Maternal Grandfather Chronic obstructive pulmonary disease [id number] Not available 10/31/2022 23:28:48 Paternal Uncle Malignant neoplasm of lung 3uncle s [id number].425 [id number] Not available 10/31/2022 23:28:48 Medical History Condition Response HYPERTHYROIDISM Y EYE PROBLEMS Y HYPOTHYROIDISM Y DIABETES, TYPE Y HEART DISEASE/HEART PROBLEMS Y HYPERTENSION Y HIGH CHOLESTEROL / HYPERLIPIDEMIA Y Past Encounters Encounter ID Performer Location Encounter Start Date Encounter Closed Date Diagnosis/Indication Diagnosis SNOMED-CT Code Diagnosis ICD10 Code Diagnosis Note [id number] Tia Braun MD [facility] [address] [place] [address] 08/08/2021 00:00:00 08/08/2021 18:02:40 [id number] Tia Braun MD LILA [facility] [place] [address] [place] [address] 08/21/2021 00:00:00 08/21/2021 16:22:15 [id number] MD RON Grant [facility] [place] [address] [place] [address] 12/18/2021 00:00:00 12/18/2021 17:21:40 [id number] Tia Braun MD ArnoldoYolanda [facility] [place] [address] [place] [address] 05/01/2022 00:00:00 05/01/2022 13:38:06 [id number] Tia Braun MD [facility] [place] [address] [place] [address] 07/05/2022 00:00:00 07/05/2022 10:21:54 [id number] Tia Braun MD [facility] [place] [address] [place] [address] 1 10/09/2022 00:00:00 10/09/2022 13:45:15 [id number] MD [facility] [place] [address] [place] [address] 05/21/2023 11:15:38 05/21/2023 12:03:43 Uncontrolled type 2 diabetes mellitus [id number] E11.65 a1c of 8.3% down from 8.6%- [...] Recommende d patient to utilize the diabetesfo [employer] BATTER[employer] from the ADA website to help with food preparatio n as this presents ideal carb content per meal so this will make carb counting much easier for patient. Recommende d he incorporat e natural insulin visual merchandiser s such as pears, apples, cinnamon, bhupendra and sweet potatoes to help mobilize his endogenous insulin. Recommende d up to 150 minutes of moderate level activity/e xercise weekly. refer to endocrinol ogy per patient request. Hypothyroidism 22763311 E03.9 FT4 in range- continue synthroid 100 mcg daily. Dyslipidemia [id number] E 78.5 Continue statin therapy as LDL in range. Spent up to 25 minutes preparing to see the patient (eg, review of tests), obtaining and/or reviewing separately obtained history, performing a medically appropriat e examinatio n and evaluation , counseling and educating the patient, ordering medication s, tests, along with documentin g clinical informatio n in the electronic health record, independen tly interpreti ng results and communicat ing [...] Recorded Advance Directives Directive None Recorded Payers Insurance Date Sequence Insurance Name Policy Number Policy Frazier Covered Member ID Frazier Member ID Guarantor Name 05/18/2023 1 [place] Ced Simone Mccracken [id number] Ced Mccracken 05/18/2023 2 FOR LIFE ( - MEDICARE SUPPLEMENT) Ced Mccracken [id number] Ced Mccracken Notes Date Note Type Note [...] mg/dLCr normalLFT normal Tia Braun MD [address], [facility] [address], [place], [address], [place] - [facility] 05/21/2023 12:27:05
--- OUTSIDE RECORDS SUMMARY | 2025-02-16 13:35 | XMS_ITS | Encounter Summary ---
Author Organization [facility] Healthcare Address [address] [place] [address] Care Team Providers Care Resident Care Supervisor Name Role Phone Maryann Jiménez DO Primary Care Provider + Jose David Betancourt MD Unavailable [phone] Ty Lamb MD Unavailable [phone] Jatinder Jones MD Unavailable [phone] Miscellaneous, Not In File Unavailable Unava ilable Encounter Details Date Type Department Care Team (Late st Contact Info) Description 01/05/2025 [facility] Post Discharge Follow up phone call [facility] [address] [place] [address] Ariella Larsen Social History Tobacco [...] materials from doctor or pharmacy Never 12/23/2024 [facility] Utilities Answer Date Recorded In the [...] you attend chur ch or faith services? More than 4 times per year 12/17/2024 Do you belong to any clubs o r organizations such as denominational groups, unions, fraternal or athletic groups, or [...] staff should administer the PHQ-9) 0 08/17/2024 [facility] - Occupational [...] any time in the past [facility], were you homeless or living in a residential (including now)? No 12/17/2024 Personal Safety Answer Date Recorded Have you ever been in or are you currently in a harmful physical or emotional relationship or is someone making you feel afraid or unsafe? 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 Male 3:55 AM [employer] Gender Identity Male 01/23/2020 12:25 AM CDT [...] documented as of this encounter Care Teams Resident Care Supervisor Relationship Specialty Start Date End Date Jiménez Maryann DO Missy PCP - General Family Medicine 07/03/22 Jose David Betancourt MD [address] [facility] [address] [place], [place] [id number] Consulting Physician Urology 06/19/24 Ty Lamb MD [address] [facility] [address] [place], [place] [id number] Surgeon Cardiothoracic Surgery 12/21/24 Jatinder Jones MD [address] [place] [address] Consulting Physician Cardiology 12/21/24 Miscellaneous, Not In File 12/21/24 documented as of this encounter
--- OUTSIDE RECORDS SUMMARY | 2025-02-16 13:35 | XMS_ITS | Data Portability ---
Author Organization [facility] Address [address] [place] [address] Assessment Encounter Date Assessment Date Assessment LastModified by Organization Details LastModified Time 08/13/2023 08/13/2023 Pt is a 73 y.o Male. Patient reports the following problems as mentioned below. For screenings and dates, see HPI. Pt seen today for New Patient Preventative Visit (NPPV). Physical exam as above. Complaints addressed as below. Physically Active and mood is stable. Chronic problems are stable. Discussed vaccinations, and recommended screenings as per [facility]Medic[facility] guidelines. Discussed Lifestyle modifications to Improve LDL,Blood pressure,BMI and a1c in diabetics and pre-Diabetics. Patient will be monitored for below mentioned problems and any progression/regr ession of the medical problems mentioned below. Explained and discussed side effects(risk/silvestre efits) of medications with Patient. Offered natural safer alternatives. Advance directives, Fall risk, PMH /FH updated, Patient Examined. Overall General Health/Fitness /Nutrition/Exerc ise /Mental and emotional health discussed. Explained that Mind, Body and Soul are one unit. All three are important to keep pt Healthy and Happy. History and exam indicate intervention/jose armando atment as mentioned below. Evaluated and assessed by reviewing all previous medical records, and will monitor with future labs as ordered below. Patient educated on treatment and goals of therapy. Discussed follow up orders and treatment plan. Further diagnostic testing and appropriate orders indicated below. Follow up as directed. Pt voiced understanding. Will continue to Monitor. Will continue to follow. RTC as scheduled . [email or web address] Not available 08/02/2023 11:42:08 08/19/2023 08/19/2023 PE as above Meds reviewed. Patients complaints,santosh rns and questions addressed. VS, BMI, Healthy Diet, Adequate Hydration and exercise discussed. RTC as scheduled. Will continue to monitor and continue to follow. Not available 08/16/2023 10:32:38 09/03/2023 09/03/2023 Prior cardiology notes reviewed. Follow up on annual basis. [email or web address] Not available 09/03/2023 16:28:51 Plan of Treatment Reminders Order Date Submit Date Provider Last Modified By Organization Details Last Modified Time Details Appointments None recorded. Lab HbA1c (hemoglobin A1c), blood 2022 023 JULIO [facility], [address] [place], [address], 3 16:11:43 microalbumi n/creatinin e, mass ratio, urine 2022 023 JULIO [facility], [address] [place], [address], 3 16:11:38 CBC w/ auto diff 2022 023 JULIO [facility], [address] [place], [address], 3 16:11:28 CMP, serum or plasma 2022 023 JULIO [facility], [address] [place] [facility] [place], [address], 3 16:11:32 lipid panel, serum 2022 023 JULIO [facility], [address] [place], [address], 3 16:11:36 testosteron e, free + total, serum 2022 023 [email or web address] [facility], [address] [place] [facility] [place], [address], 3 09:37:09 vitamin B12 + folate, serum or blood 2022 023 JULIO [facility], [address] [place], [address], 3 16:11:39 PSA, total, serum or plasma 2022 023 CAMARILLO [facility], [address] [place], [address], 3 16:11:44 Hepatitis C IgG Ab, qual, serum 2022 023 CAMARILLO [facility], [address] [place], [address], 3 16:11:40 TSH + free T4, serum 2022 023 [facility], [address] [place], [address], 3 16:11:24 Referral endocrinolo gy referral 2022 023 [email or web address] John MD, [address] [place], [address], 4 14:16:57 rheumatolog ist referral 2022 023 [email or web address] Vicente MD, [address] [place], [address], 4 13:54:02 cardiologis t referral 2022 023 [email or web address] Cierra GRACE, [address] [place], [address], 3 12:34:41 hand surgeon referral - Pls call Pt to [facility]. Thank you 2022 023 eric [facility], [address] [address], [place], [address], 4 08:32:44 physical therapist referral - Pls call pt to [facility] Thank you Pt completed R rotator cuff repair in [facility] on July 03 2023. Needing PT twice a week for 4 weeks. 2022 023 [facility], [address], [place], [address], 3 09:18:52 Procedures None recorded. Surgeries None recorded. Imaging electrocard iogram 2023 024 CAMARILLO [facility], [address], [place], [address], 4 09:10:04 Medication Orders None recorded. Patient TargetsNo targets recorded. Patient Instructions Encounter Date Encounter Id Patient Instructions Last Modified By Organization Details Last Modified Time 08/13/2023 [id number] advance care planning: care instructions Not available 08/13/2023 11:08:16 advance directiv es: care instructions Not available 08/13/2023 11:08:16 Peripheral Arter ial Disease (PAD): Care Instructions Not available 08/13/2023 11:08:16 hearing screening* Not availab le 08/13/2023 11:08:16 hearing loss: ca re instructions Not available 08/13/2023 11:08:16 A healthy lifest yle: care instructions Not available 08/13/2023 11:08:16 prostate cancer screening: care instructions Not available 08/13/2023 11:08:16 We discussed the following important areas of your health at today's visit: 1. Any concerns about balance and falls. 2. Any concerns about bladder control including leaking of urine. 3. Any concerns about getting adequate exercise and physical activity. Supportive programs and services are available to help you develop and maintain healthy habits in these areas. Please visit [email or web address] [email or web address] for a listing of available resources. If you have any further questions or concerns regarding the above areas of your health, please discuss at your next primary care visit or, for more urgent concerns, call us at [address] [place] [address] ([phone]) to schedule an appointment. [email or web address] Not available 08/02/2023 11:39:51 08/19/2023 [id number] gastroesophageal reflux disease (GERD): care instructions Not available 08/19/2023 15:30:26 influenza (flu) vaccine: care instructions Not available 08/19/2023 15:30:26 hypothyroidism: care instructions [email or web address] Not available 08/19/2023 14:29:32 During your most recent Annual Preventive Visit, we discussed concerns with balance (fall preventive), bladder control (including leaking of urine) and the importance of adequate exercise and physical activity. If anything has changed or you wish to investigate other supportive programs and services available to help you develop or maintain healthy habits in these areas, please visit [email or web address] [email or web address] for a listing of available resources. If you have any further questions or concerns regarding fall prevention/balance, bladder/urine leakage or exercise, please discuss at your next primary care visit or, for more urgent concerns, call us at [address] [place] [address] ([phone]) to schedule an appointment. Not available 08/16/2023 10:31:40 Reason for Referral Physical Therapist Referral for Postoperative care Pls call pt to [facility] Thank you Pt completed R rotator cuff repair in [facility] on July 03 2023. Needing PT twice a week for 4 weeks. Referring Physician: [facility], Encounter Date: 08/13/2023 Hand Surgeon Referral for Pa in in right thumb Pls call Pt to [facility]. Thank you Referring Physician: Family Zeus Luzt, Encounter Date: 08/13/2023 Endocrinology Referral for T ype 2 diabetes mellitus Referring Physician: Harshil Jiang [facility] Zeus, Encounter Date: 08/19/[address] [employer] Referral for Psoriatic arthritis Referring Physician: Family Zeus Brannon, Encounter Date: 08/19/2023 Oil Developer Referral for Ca rdiac pacemaker in situ Referring Physician: Harshil Jiang [facility] Zeus, Encounter Date: 08/19/2023 Results Created Date Observation Date Name Description Value Unit Range Abnormal Flag Note LastModifiedBy Organization Detail LastModifiedTime 08/13/20 23 08/13/2023 heari ng scree ina* Unknown Analyte normal Not Available [facility] [address] [place], [address], 08/02/2023 11:39:59 08/13/20 23 08/13/2023 heari ng scree ina* Unknown Analyte normal Not Available [facility] [address] [place] [address], [phone], 08/02/2023 11:39:59 08/13/20 23 08/13/2023 heari ng scree ina* Unknown Analyte normal Not Available [facility] [address] [place], [address], 08/02/2023 11:39:59 08/13/20 23 08/13/2023 heari ng scree ina* Unknown Analyte normal Not Available [facility] [address] [place] [address], [phone], 08/02/2023 11:39:59 08/13/20 23 08/13/2023 heari ng scree ina* Unknown Analyte normal Not Available [facility] [address] [place] [address], [phone], 08/02/2023 11:39:59 08/13/20 23 08/13/2023 heari ng scree ina* Unknown Analyte normal Not Available [facility] [address] [place] [address], [phone], 08/02/2023 11:39:59 08/13/20 23 08/13/2023 heari ng scree ina* Unknown Analyte abnorm al Not Available [facility] [address] [place] [address], [phone], 08/02/2023 11:39:59 08/13/20 23 08/13/2023 heari ng scree ina* Unknown Analyte abnorm al Not Available [facility] [address] [place], [address], 08/02/2023 11:39:59 08/14/20 23 08/15/2023 TSH+F REE T4 TSH 2.970 uIU/m L 0.450- 4.500 Not Available [facility] ([facility]) [address] [facility], [place], [address], 08/15/2023 16:11:23 08/14/20 23 08/15/2023 TSH+F REE T4 T4,free(dire ct) 1.32 NG/dL 0.82-1 .77 Not Available [facility] ([facility]) [address] [facility], [place], [address], 08/15/2023 16:11:23 08/14/20 23 08/15/2023 CBC WITH DIFFE RENTI AL/PL ATELE T WBC 7.6 x10e3 /uL 3.4-10 .8 Not Available [facility] ([facility]) [address] [facility], [place], [address], 08/15/2023 16:11:27 08/14/20 23 08/15/2023 CBC WITH DIFFE RENTI AL/PL ATELE T RBC 5.40 x10e6 /uL 4.14-5 .80 Not Available [facility] ([facility]) [address] [facility], [place], [address], 08/15/2023 16:11:27 08/14/20 23 08/15/2023 CBC WITH DIFFE RENTI AL/PL ATELE T hemoglobin 16.0 g/dL 13.0-1 7.7 Not Available [facility] ([facility]) [address] [facility], [place], [address], 08/15/2023 16:11:27 08/14/20 23 08/15/2023 CBC WITH DIFFE RENTI AL/PL ATELE T hematocrit 45.5 % 37.5-5 1.0 Not Available [facility] ([facility]) [address] [facility], [place], [address], 08/15/2023 16:11:27 08/14/20 23 08/15/2023 CBC WITH DIFFE RENTI AL/PL ATELE T MCV 84 fL 79-97 Not Available [facility] ([facility]) [address] [facility], [place], [address], 08/15/2023 16:11:27 08/14/20 23 08/15/2023 CBC WITH DIFFE RENTI AL/PL ATELE T MCH 29.6 pg 26.6-3 3.0 Not Available [facility] ([facility]) [address] [facility], [place], [address], 08/15/2023 16:11:27 08/14/20 23 08/15/2023 CBC WITH DIFFE RENTI AL/PL ATELE T MCHC 35.2 g/dL 31.5-3 5.7 Not Available [facility] ([facility]) [address] [facility], [place], [address], 08/15/2023 16:11:27 08/14/20 23 08/15/2023 CBC WITH DIFFE RENTI AL/PL ATELE T RDW 12.9 % 11.6-1 5.4 Not Available [facility] ([facility]) [address] [facility], [place], [address], 08/15/2023 16:11:27 08/14/20 23 08/15/2023 CBC WITH DIFFE RENTI AL/PL ATELE T platelets 254 x10e3 /uL 150-45 0 Not Available [facility] ([facility]) [address] [place], [address], 08/15/2023 16:11:27 08/14/20 23 08/15/2023 CBC WITH DIFFE RENTI AL/PL ATELE T neutrophils 62 % not estab. Not Available [facility] ([facility]) [address] [place], [address], 08/15/2023 16:11:27 08/14/20 23 08/15/2023 CBC WITH DIFFE RENTI AL/PL ATELE T lymphs 27 % not estab. Not Available [facility] ([facility]) [address] [facility], [place], [address], 08/15/2023 16:11:27 08/14/20 23 08/15/2023 CBC WITH DIFFE RENTI AL/PL ATELE T monocytes 8 % not estab. Not Available [facility] ([facility]) [address] [facility], [place], [address], 08/15/2023 16:11:27 08/14/20 23 08/15/2023 CBC WITH DIFFE RENTI AL/PL ATELE T eos 2 % not estab. Not Available [facility] ([facility]) [address] [facility], [place], [address], 08/15/2023 16:11:27 08/14/20 23 08/15/2023 CBC WITH DIFFE RENTI AL/PL ATELE T basos 1 % not estab. Not Available [facility] ([facility]) [address] [facility], [place], [address], 08/15/2023 16:11:27 08/14/20 23 08/15/2023 CBC WITH DIFFE RENTI AL/PL ATELE T immature cells FIRESTOP/CONTAINMENT WORKER Not Available [facility] ([facility]) [address] [facility], [place], [address], 08/15/2023 16:11:27 08/14/20 23 08/15/2023 CBC WITH DIFFE RENTI AL/PL ATELE T neutrophils (absolute) 4.8 x10e3 /uL 1.4-7. 0 Not Available [facility] ([facility]) [address] [facility], [place], [address], 08/15/2023 16:11:27 08/14/20 23 08/15/2023 CBC WITH DIFFE RENTI AL/PL ATELE T lymphs (absolute) 2.0 x10e3 /uL 0.7-3. 1 Not Available [facility] ([facility]) [address] [facility], [place], [address], 08/15/2023 16:11:27 08/14/20 23 08/15/2023 CBC WITH DIFFE RENTI AL/PL ATELE T monocytes(ab solute) 0.6 x10e3 /uL 0.1-0. 9 Not Available [facility] ([facility]) [address] [facility], [place], [address], 08/15/2023 16:11:27 08/14/20 23 08/15/2023 CBC WITH DIFFE RENTI AL/PL ATELE T eos (absolute) 0.1 x10e3 /uL 0.0-0. 4 Not Available [facility] ([facility]) [address] [place], [address], 08/15/2023 16:11:27 08/14/20 23 08/15/2023 CBC WITH DIFFE RENTI AL/PL ATELE T baso (absolute) 0.1 x10e3 /uL 0.0-0. 2 Not Available [facility] ([facility]) [address] [place], [address], 08/15/2023 16:11:27 08/14/20 23 08/15/2023 CBC WITH DIFFE RENTI AL/PL ATELE T immature granulocytes 0 % not estab. Not Available [facility] ([facility]) [address] [place], [address], 08/15/2023 16:11:27 08/14/20 23 08/15/2023 CBC WITH DIFFE RENTI AL/PL ATELE T immature grans (abs) 0.0 x10e3 /uL 0.0-0. 1 Not Available [facility] ([facility]) [address] [place], [address], 08/15/2023 16:11:27 08/14/20 23 08/15/2023 CBC WITH DIFFE RENTI AL/PL ATELE T NRBC FIRESTOP/CONTAINMENT WORKER Not Available [facility] ([facility]) [address], [place], [address], 08/15/2023 16:11:27 08/14/20 23 08/15/2023 CBC WITH DIFFE RENTI AL/PL ATELE T hematology comments: FIRESTOP/CONTAINMENT WORKER Not Available [facility] ([facility]) [address], [place], [address], 08/15/2023 16:11:27 08/14/20 23 08/15/2023 COMP. METAB OLIC PANEL (14) glucose 154 mg/dL 70-99 above high normal Not Available [facility] ([facility]) [address] [facility], [place], [address], 08/15/2023 16:11:32 08/14/20 23 08/15/2023 COMP. METAB OLIC PANEL (14) BUN 13 mg/dL 8-27 Not Available [facility] ([facility]) [address] [facility], [place], [address], 08/15/2023 16:11:32 08/14/20 23 08/15/2023 COMP. METAB OLIC PANEL (14) creatinine 0.77 mg/dL 0.76-1 .27 Not Available [facility] ([facility]) [address] [facility], [place], [address], 08/15/2023 16:11:32 08/14/20 23 08/15/2023 COMP. METAB OLIC PANEL (14) eGFR 95 mL/mi n/1.7 3 >59 Not Available [facility] ([facility]) [address] [facility], [place], [address], 08/15/2023 16:11:32 08/14/20 23 08/15/2023 COMP. METAB OLIC PANEL (14) BUN/creatini ne ratio 17 10-24 Not Available [facility] ([facility]) [address] [facility] [place], [address], 08/15/2023 16:11:32 08/14/20 23 08/15/2023 COMP. METAB OLIC PANEL (14) sodium 143 mmol/ L 134-14 4 Not Available [facility] ([facility]) [address] [facility] [place], [address], 08/15/2023 16:11:32 08/14/20 23 08/15/2023 COMP. METAB OLIC PANEL (14) potassium 3.6 mmol/ L 3.5-5. 2 Not Available [facility] ([facility]) [address] [facility], [place], [address], 08/15/2023 16:11:32 08/14/20 23 08/15/2023 COMP. METAB OLIC PANEL (14) chloride 102 mmol/ L 96-106 Not Available [facility] ([facility]) [address] [facility] [place], [address], 08/15/2023 16:11:32 08/14/20 23 08/15/2023 COMP. METAB OLIC PANEL (14) carbon dioxide, total 25 mmol/ L 20-29 Not Available [facility] ([facility]) [address] [facility] [place], [address], 08/15/2023 16:11:32 08/14/20 23 08/15/2023 COMP. METAB OLIC PANEL (14) calcium 9.4 mg/dL 8.6-10 .2 Not Available [facility] ([facility]) [address] [facility] [place], [address], 08/15/2023 16:11:32 08/14/20 23 08/15/2023 COMP. METAB OLIC PANEL (14) protein, total 6.9 g/dL 6.0-8. 5 Not Available [facility] ([facility]) [address] [place], [address], 08/15/2023 16:11:32 08/14/20 23 08/15/2023 COMP. METAB OLIC PANEL (14) albumin 4.2 g/dL 3.8-4. 8 Not Available [facility] ([facility]) [address] [place], [address], 08/15/2023 16:11:32 08/14/20 23 08/15/2023 COMP. METAB OLIC PANEL (14) globulin, total 2.7 g/dL 1.5-4. 5 Not Available [facility] ([facility]) [address] [place], [address], 08/15/2023 16:11:32 08/14/20 23 08/15/2023 COMP. METAB OLIC PANEL (14) A/G ratio 1.6 1.2-2. 2 Not Available [facility] ([facility]) [address] [place], [address], 08/15/2023 16:11:32 08/14/20 23 08/15/2023 COMP. METAB OLIC PANEL (14) bilirubin, total 0.5 mg/dL 0.0-1. 2 Not Available [facility] ([facility]) [address] [place], [address], 08/15/2023 16:11:32 08/14/20 23 08/15/2023 COMP. METAB OLIC PANEL (14) alkaline phosphatase 92 IU/L 44-121 Not Available [facility] ([facility]) [address] [place], [address], 08/15/2023 16:11:32 08/14/20 23 08/15/2023 COMP. METAB OLIC PANEL (14) AST (SGOT) 13 IU/L 0-40 Not Available [facility] ([facility]) [address] [place], [address], 08/15/2023 16:11:32 08/14/20 23 08/15/2023 COMP. METAB OLIC PANEL (14) ALT (SGPT) 13 IU/L 0-44 Not Available [facility] ([facility]) [address], [place], [address], 08/15/2023 16:11:32 08/14/20 23 08/15/2023 LIPID PANEL cholesterol, total 115 mg/dL 100-19 9 Not Available [facility] ([facility]) [address], [place], [address], 08/15/2023 16:11:36 08/14/20 23 08/15/2023 LIPID PANEL triglyceride s 101 mg/dL 0-149 Not Available [facility] ([facility]) [address] [facility] [place], [address], 08/15/2023 16:11:36 08/14/20 23 08/15/2023 LIPID PANEL HDL cholesterol 27 mg/dL >39 below low normal Not Available [facility] ([facility]) [address], [place], [address], 08/15/2023 16:11:36 08/14/20 23 08/15/2023 LIPID PANEL VLDL cholesterol [place] 19 mg/dL 5-40 Not Available [facility] ([facility]) [address] [facility] [place], [address], 08/15/2023 16:11:36 08/14/20 23 08/15/2023 LIPID PANEL LDL chol calc ([facility]) 69 mg/dL 0-99 Not Available [facility] ([facility]) [address] [place], [address], 08/15/2023 16:11:36 08/14/20 23 08/15/2023 LIPID PANEL comment: FIRESTOP/CONTAINMENT WORKER Not Available [facility] ([facility]) [address] [facility] [place], [address], 08/15/2023 16:11:36 08/14/20 23 08/15/2023 ALBUM IN/CR EAT RATIO , RANDO M UR creatinine, urine 64.3 mg/dL not estab. Not Available [facility] ([facility]) [address] [facility], [place], [address], 08/15/2023 16:11:38 08/14/20 23 08/15/2023 ALBUM IN/CR EAT RATIO , RANDO M UR albumin, urine 16.5 ug/mL not estab. Not Available [facility] ([facility]) [address] [facility], [place], [address], 08/15/2023 16:11:38 08/14/20 23 08/15/2023 ALBUM IN/CR EAT RATIO , RANDO M UR alb/creat ratio 26 mg/g_ creat 0-29 Karin l: 0 - 29 Moder ately incre ased: 30 - 300 Sever burton incre ased: >300 Not Available [facility] ([facility]) [address] [facility], [place], [address], 08/15/2023 16:11:38 08/14/20 23 08/15/2023 VITAM IN B12 AND FOLAT E vitamin B12 677 pg/mL 232-12 45 Not Available [facility] ([facility]) [address] [facility], [place], [address], 08/15/2023 16:11:39 08/14/20 23 08/15/2023 VITAM IN B12 AND FOLAT E folate (folic acid), serum >20.0 NG/mL >3.0 A serum folat e santosh ntrat ion of less than 3.1 ng/mL is consi dered to repre sent clini [place] defic iency . Not Available [facility] ([facility]) [address] [facility], [place], [address], 08/15/2023 16:11:39 08/14/20 23 08/15/2023 HCV ANTIB DAIN RFX TO QUANT PCR HCV Ab NON REACTI VE non reacti ve Not Available [facility] ([facility]) [address] [facility], [place], [address], 08/15/2023 16:11:40 08/14/20 23 08/15/2023 HCV ANTIB DAIN RFX TO QUANT PCR interpretati on: COMMEN T Not infec lino with HCV unles s early or acute infec tion is suspe cted (whic h may be delay ed in an immun ocomp romis ed indiv idual ), or other evide nce exist s to indic ate HCV infec tion. Not Available [facility] ([facility]) [address] [facility], [place], [address], 08/15/2023 16:11:40 08/14/20 23 08/15/2023 HEMOG LOBIN A1C hemoglobin A1C 9.0 % 4.8-5. 6 above high normal Predi abete s: 5.7 - 6.4 Diabe andrea: >6.4 Glyce sharmila contr ol for adult s with diabe andrea: <7.0 Not Available [facility] ([facility]) [address] [facility], [place], [address], 08/15/2023 16:11:43 08/14/20 23 08/15/2023 PROST ATE-S PECIF IC AG prostate specific Ag 0.7 NG/mL 0.0-4. 0 Keith ECLIA metho dolog y. Accor ding to the Ameri can [employer]o g[employer] iatio n, Serum PSA shoul d decre ase and remai n at undet ectab le level s after radic al prost atect [place]. The AUA defin es bioch emica l recur rence as an initi al PSA value 0.2 ng/mL or great er follo wed by a subse quent confi rmato ry PSA value 0.2 ng/mL or great er. Value s obtai surya with diffe rent assay metho ds or kits canno t be used inter cote eably . Resul ts canno t be inter prete d as absol [place] evide nce of the prese nce or absen ce of mar figueroa se. Not Available [facility] ([facility]) [address], [place], [address], 08/15/2023 16:11:44 08/13/20 23 arter ial study , non-i nvasi ve physi ologi c, extre mity No observ ation record ed. [email or web address] Not Available 2022 10:38:26 09/05/19 24 09/03/2023 elect stella eng am No observ ation record ed. [email or web address] [facility] [address] [address], [place], [address], 09/05/2023 09:10:08 Result Notes None recorded. Problems Name Problem SNOMED Code Status Onset Date Resolution Date Notes Provider Name and Address Organization Details Recorded Time Peripheral vascular disease 217860571 Active 2022 Donn [place]umar, [place] [facility] 10:41:55 Gastroesop hageal reflux disease 821284962 Active 2022 Donn Cohen null, [place] [facility] 10:42:34 Morbid obesity 212146546 Active 2022 Donn Cohen null, [place] [facility] 10:42:55 Body mass index 30+ - obesity 008630977 Active 2022 Donn [place] null, [place] [facility] 10:42:57 Constipati on 81052070 Active 2022 Donn Cohen null, [place] [facility] 3 10:43:04 Psoriatic arthritis 464153339 Active 2022 Donn Cohen null, [place] [facility] 10:45:10 Pain in right thumb 2977526440674 102 Active 2022 Donn [place] null, [place] [facility] 10:45:17 Secondary immune deficiency disorder 64451292 Active 2022 Maryann [place] null, [place] [facility] 3 11:03:29 Qualitativ e platelet disorder 730097504 Active 2022 [facility] [place] [place] [facility] 11:03:31 Type 2 diabetes mellitus 66133870 Active 2022 Maryann [place] - [facility] 3 11:03:37 Cardiac pacemaker in situ 761753720 Active 2022 Maryann [place] - [facility] 3 11:03:42 Hypertensi ve disorder 10752094 Active 2022 Maryann Master null, [place] - [facility] 3 11:03:45 Hyperlipid emia due to type 2 diabetes mellitus 5708369021024 02 Active 2022 Maryann [place] [facility] 3 11:03:47 Hypothyroi dism 01764074 Active 2022 Maryann Master null, [place] [facility] 3 11:03:49 Erectile dysfunctio n 183184050 Active 2022 Maryann Master null, [place] - [facility] 3 11:03:55 Vitamin D deficiency 99786024 Active 2022 Harshil Jiang, BEHZAD [address] [place], [address] , [place] - [facility] 3 15:30:13 Atheroscle rosis of coronary artery without angina pectoris 1609110089144 03 Active 2023 JOSE REYNOLDS [address] [place], [address] , [place] - [facility] 4 15:18:04 Syncope and collapse 244090132 Active 2023 JOSE REYNOLDS [address] [place], [address] , [place] - [facility] 16:26:43 Problem Notes None recorded. Procedures Surgical History Date Name Laterality Status Provider Name and Address Organization Details Recorded Time 023 Phlebotomy Blood Draw completed Sangita [address] [place] - [facility] 08/14/2023 11:25:33 023 Preventative Visit Discussed with Patient completed Maryann Master [place] - [facility] 08/02/2023 11:39:55 023 Rotator cuff repair completed Donn [place] [facility] 08/13/2023 10:46:32 023 Colon Surgery [place] Maryann [place] [facility] 08/13/2023 10:25:37 023 Colonoscopy completed Maryann [place] [facility] 08/13/2023 10:25:37 021 Hernia Repair completed Maryann Master [place] [facility] 08/13/2023 10:25:37 016 Hemorrhoidectomy completed Maryann Master [place] [facility] 08/13/2023 10:25:37 010 Stent Placement [facility] [place] [facility] 08/13/2023 10:25:37 010 Cardiac Catheterization [facility] [place] [facility] 08/13/2023 10:25:37 010 Coronary Artery Stent [place] [facility] [place] [facility] 08/13/2023 10:25:37 000 Spine Surgery completed Maryann [place] [facility] 08/13/2023 10:25:37 000 Head or Neck Surgery [facility] [place] [facility] 08/13/2023 10:25:37 000 Eye Surgery completed Maryann Thao CT - [facility] 08/13/2023 10:25:37 999 Tonsillectomy/Adeno idectomy completed Maryann Thao [facility] 08/13/2023 10:25:37 983 [facility] 10[facility]25:37 Imaging Results None recorded. Procedure Notes None recorded. Medical Equipment None Reported. Allergies Allergen ID Allergen Name Allergen Category Reaction Reaction Severity Criticality Documentation Date Start Date Code Code System Note Provider Name and Address Organization Details Recorded Time [id number] atropine medicatio n Not available Not available Not available 08/05/20231982 1223 RxNorm Not Available Dash Scheduling by Relatient 16:02:48 Medications Name Sig Start Date Stop Date Status Note LastModified by Organization Details LastModified Time atorvastat in 40 mg tablet Take 1 tablet every day by oral route. active Not Available Not Available No t Available metformin 500 mg tablet take 1 tablet by mouth every day with evening meal 2020 active Not Available Not Available Not Avai lable potassium chloride ER 10 mEq capsule,ex tended release Take 1 capsule every other day by oral route. active Not Available Not Available No t Available amlodipine 2.5 mg tablet Take 1 tablet every day by oral route in the morning. active Not Available Not Available No t Available omeprazole 40 mg capsule,de layed release Take 1 capsule every day by oral route. active Not Available Not Available No t Available levothyrox ine 100 mcg tablet take 1 tablet by mouth every morning 2004 active Not Available Not Available Not Avai lable glimepirid e 4 mg tablet take 1 tablet by mouth twice a day 2004 active Not Available Not Available Not Avai lable Micardis HCT 40 mg-12.5 mg tablet take 1 tablet every morning 2012 active Not Available Not Available Not Avai lable metoprolol succinate ER 25 mg tablet,ext ended release 24 hr Take 1 tablet every day by oral route. active Not Available Not Available No t Available finasterid e 5 mg tablet take 1 tablet by mouth daily 2004 active Not Available Not Available Not Avai lable tadalafil 10 mg tablet Take 1 tablet every day by oral route as needed. active 09/03/22 Not taking Not Available Not Available Not Available Enbrel 50 mg/mL (1 mL) subcutaneo us syringe Inject 1 mL every week by subcutan eous route. active Not Available Not Available No t Available potassium chloride 08/13 completed Not Available Not Available Not Available atorvastat in 08/13 completed Not Available Not Available Not Available aspirin 81 mg 2004 active Not Available Not Available Not Avai lable omeprazole 08/13 completed Not Available Not Available Not Available alcohol swabs 2020 active Not Available Not Available Not Avai lable amlodipine 08/13 completed Not Available Not Available Not Available Comfort EZ Pen [place] 32 gauge x 1/4 2020 active Not Available Not Available Not Avai lable Jardiance 25 mg tablet Take 1 tablet every day by oral route. active Not Available Not Available No t Available Tresiba FlexTouch U-200 insulin 200 unit/mL (3 mL) subcutaneo us pen inject 24 units under the skin daily at bedtime active Not Available Not Available No t Available potassium 408 mg-columba 100 mg-magnes 120 mg-shaquille 2 mg oral powder pack 08/05 completed Not Available Not Available Not Available BD Lyudmila 2nd Gen Pen Needle 32 gauge x 5/32 DIRECTED active Not Available Not Available No t Available Trulicity 3 mg/0.5 mL subcutaneo us pen injector inject 3 mg under the skin every week at dinner 2020 active Not Available Not Available Not Avai lable Vitals Date Recorded Body height Body mass index (BMI) Body weight Heart rate Respiratory rate Oxygen saturation Oxygen saturation in Arterial blood by Pulse oximetry Systolic blood pressure Diastolic blood pressure Provider Name and Address Organization Details Last Updated DateTime 4 170.18 cm 30.4 kg/m2 05177.9 2 g 81 /min 16 /min 97 % 97 % 135 mm[Hg] 81 mm[Hg] Wendi Levy [place] - [facility] 4 15:13:39 Date Recorded Body weight Body mass index (BMI) Body height Body temperature Heart rate Oxygen saturation Oxygen saturation in Arterial blood by Pulse oximetry Systolic blood pressure Diastolic blood pressure Provider Name and Address Organization Details Last Updated DateTime 3 73066.3 3 g 30.2 kg/m2 170.18 cm 97.2 [degF] 71 /min 98 % 98 % 139 mm[Hg] 72 mm[Hg] Maryann Thao [facility] 3 10:09:33 Date Recorded Body height Body mass index (BMI) Body weight Body temperature Oxygen saturation Oxygen saturation in Arterial blood by Pulse oximetry Heart rate Systolic blood pressure Diastolic blood pressure Provider Name and Address Organization Details Last Updated DateTime 3 170.18 cm 30.4 kg/m2 89363.6 4 g 98 [degF] 98 % 98 % 78 /min 128 mm[Hg] 74 mm[Hg] Becka Payne [facility] 3 14:32:59 Social History Question Answer Notes LastModified by Organization Details LastModified Time Tobacco Smoking Status Former Smoker Maryann Thao [facility] 08/13/2023 10:25:31 Do You Have An Advance Directive? Yes Information not available 08/13/2023 What Is Your Level Of Caffeine Consumption? Occasional Coke Occasional Information not available 08/13/2023 What Type Of Diet Are You Following? DIABETIC Information not available 08/13/2023 What Is The Highest Grade Or Level Of School You Have Completed Or The Highest Degree You Have Received? [id number] Information not available 08/13/2023 How Many Days Of Moderate To Strenuous Exercise, Like A Brisk Walk, Did You Do In The Last 7 Days? 2 Information not available 08/13/2023 When Did You Quit Smoking? 16+yearssince remberto 1982APR [id number] Information not available 09/03/2023 Have You Been Hospitalized? 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 Yes Information not available 08/13/2023 How Many Children Do You Have? 4 Information not available 08/13/2023 Do You Have An Out Of Hospital DNR? No Information not available 08/13/2023 What Is Your Relationship Status? Information not available 08/13/2023 Are You Sexually Active? Yes Information not available 08/13/2023 At What Age Did You Start Smoking Tobacco? 19 [email or web address] Information not available 09/03/2023 What Types Of Sporting Activities Do You Participate In? Golf Information not available 08/13/2023 Has Tobacco Cessation Counseling Been Provided? No Information not available 08/13/2023 Sex: Unknown Functional Status Question Answer Note LastModified by Organizat ion Details LastModified Time Do you use any illicit or recreational drugs? No Information not available 08/13/2023 What is your level of alcohol consumption? Occasional red wine once a month Information not available 08/13/2023 Are you currently employed? No Information not available 08/13/2023 Are you able to care for yourself? Yes Information not available 08/13/2023 What is your exercise level? Occasional Information not available 08/13/2023 Mental Status None recorded. Family History Relationship Description Onset Age of this Age Resolved Age Notes LastModified by Organization Details LastModified Time Paternal Grandmother Diabetes mellitus 86 [email or web address] Not available 2022 10:25:23 Father Coronary arterioscler osis 60 72 [email or web address] Not available 2022 10:25:23 Medical History Condition Response Neuropathic Pain Y Spinal Stenosis Y Neck Pain Y Psoriasis Y Immunizations Vaccine Type Date Status Note Provider Nam e and Address Organization Details Recorded Time Influenza, high-dose, quadrivalent, PF 3 completed Harshil Jiang, BLOG WRITER [address] [place], [address], [place] [address]/18/2023 15:29:24 Pneumococcal conjugate PCV20, polysaccharide FVU210 conjugate, adjuvant, PF 4 completed Vish FieldsDO [address] [place], [address], [place] [facility] 09/22/2023 15:16:11 Past Encounters Encounter ID Performer Location Encounter Start Date Encounter Closed Date Diagnosis/Indication Diagnosis SNOMED-CT Code Diagnosis ICD10 Code Diagnosis Note [id number] [facility] [address] [place] [address] 08/13/2023 09:38:51 08/13/2023 14:11:03 Adult health examination 700679027 Z00.00 Routine Physical Examinatio n: => done today:I recommend the following: - regular physical exercise, 5x per week for at least 30 min- keep a healthy diet: especially low fat diet and avoiding trans-fatt y acids, avoid refined carbs as much as possible incl sugar added items and items with high fructose corn syrup, increase natural fibers, vegetable, eating fruits daily, change refined grains such as white starchy items and white rice to whole grains like wheat and brown rice- avoid smoking and passive smoking- limit alcoholic beverage: Man 1-2 per day,Women 1 per day, no driving after drinking incl golf cart driving- wear seat belts at all times, wear helmets when riding bikes or motor cycles,- get yearly flu shot, update pneumonia shots, get shingles shot as recommende d and update tetanus/di phtheria and pertussis vaccine as recommende d per CDC- consider hepatitis C testing for baby boomer's (born 1945 to 1965): evaluated Medication review done 465003373 Z76.89 Advised to let us know if patients ability to obtain or take your medication s as prescribed changes. Medication adherence, or taking medication s correctly, is generally defined as the extent to which patients take medication as prescribed by their doctors.Th is involves factors such as getting prescripti ons filled, rememberin g to take medication on time, and understand ing the directions . Common barriers to medication adherence include: the inability to pay for medication s, disbelief that the treatment is necessary or helping, difficulty keeping up with multiple medication s and complex dosing schedules, confusion about how and when to take the medication . See updated medlist- will continue to monitor and update when changes made. Poor adherence can interfere with the ability to treat many diseases, leading to greater complicati ons from the illness and a lower quality of life for patients. Risk assessment done 712 567848 Z76.89 Environmen angel and social supports that affect a patient's needs and goals are important. Please let us know if any of the following changes: - Basic ADLs are self-care activities that an individual must accomplish in order to remain self sufficient . These include bathing, dressing, toileting, transferri ng, maintainin g continence , and feeding. - Instrument al ADLs are higher level activities that individual s must perform or have help with to remain independen t in their homes. These include using the telephone, shopping, doing housework, doing laundry, preparing meals, driving, taking medication s, and managing money. Advance di rective discussed with patient 200576522 Z71.89 Patient has advanced directives , will bring a copy on next appt.Bud ce directives are legal documents that allow you to spell out ahead of time what types of medical care you would want if you ever became unable to speak for yourself.T hese documents can help ensure that you get the care you want even if you have an unexpected serious illness or accident.A dvance directives work best when they are part of a team effort.If you do not currently have advanced directives on file please discuss this with your [facility] Team. Hearing examination 2005 30077 Z01.10 The patient had a screening hearing exam today and the results were discussed. The patient will f/u with the Audiologis t as needed. Screening for malignant neoplasm of prostate 841551586 Z12.5 Guidelines and Recommenda tions discussed with patient. Pt verbalized understand ing. Will order PSA if clinically indicated or age appropriat e or if patient requests. Once levels received, Will address accordingl y and Will continue to monitor. Also see HPI. 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 I explained that no treatment is needed. Recommende d daily use of sunscreen to provide both UVA and UVB protection and to use barrier protection (long sleeve clothing) to protect the extensor surfaces of hands and forearms. The patient was encouraged to call the office if he/she develops unexplaine d bleeding elsewhere. will continue to monitor. Secondary immune deficiency disorder 72443139 D84.81 Patient with diabetes(a rosalee normal glucose floating in blood vessels), which increases the risk of infection. No fever or chills today.No evidence of any acute infection. Recommende d vaccines because of immunosupp ression have been offered and are up to date.Mua nt currently stable, will continue to follow. Qualitativ e platelet disorder 831194473 D69.1 The enzyme MADSEN-1 in the platelets that causes the first step in the metabolism and conversion to arachidoni c acid to prostaglan din which then further metabolize s to thromboxan e A2 - thromboxan e A2 is released and causes platelet activation and aggregatio n and when inhibited causes less activation and platelet aggregatio n. it is by this physiology that ASA works causing a qualitativ e platelet defect which is the desired effect. the patient will continue ASA therapy at this time. Postoperative care 39435 9007 Z48.89 Pt completed R rotator cuff repair in [facility] on July 03 2023. Needing PT twice a week for 4 weeks. Hypertensive disorder 38 914914 I10 Blood pressure: 139/72 mmHgPt advised to avoid all saturated fats, salt, alcohol, coffee and caffeinate d beverages in simple language avoiding medical terms.Martínez mmended patient to cut down on fatty fried oily foods.(davi k food, Cheese, parmar, red meat, butter, cream cheese, pizza, salad dressings, mayonnaise s , deli meats/alexandro ed food, refined sugars, alcohol, pickles, frozen meals, ready made tomato sauce, avoid eating at fast foods and avoid ready made rice meals etc etc)See VS for BP trend. BP controlled . Will continue current management .Will continue to Monitor. Peripheral vascular disease 423979875 I73.9 Quantaflo abnormal on 08/13/2023 Peripheral vascular disease (PVD) is a slow and progressiv e blood circulatio n disorder that causes the blood vessels outside of your heart and brain to narrow, block, or spasm.PVD may affect any blood vessel outside of the heart including the arteries, veins, or lymphatic vessels.PV D typically causes pain and fatigue, often in your legs, and especially during exercise. cool skin, loss of hair on the legs, thinning of skin on the legs, or ulcersStri ct lipid control, discussed diet to avoid further plaque build and narrowing of blood vessels. Exercise to improve circulatio n. Foot Spa with Epson salt. OTC BenGay. Will continue to monitor with QuantoFlo and fasting lipids periodical ly.Will continue to follow.PVD patient education provided, patient voiced understand ing.Will continue to follow. Hyperlipid emia due to type 2 diabetes mellitus 5753653743 30213 E78.5 Pt advised to cut down on saturated fats. Explained that It causes atheroscle rosis and puts patient at risk of Heart attack, PVD, stroke and memory problems.S ee labs for LDL and HDL trend.- Pt is on Atorvastat in 40 mg tablet po daily.Will continue to follow by checking lipids regularly. Type 2 david betes mellitus 21459166 E11.21 DM-II 1) Routine labs ordered. 2) Diabetic care-Expla ined the risks of uncontroll ed Diabetes , Explained risks of NON compliance . Diabetic care Referrals made. Advised to eat more fruits and vegetables , cut Down on fatty fried oily foods, Cut down on Starchy foods. Recommend ADA low carb 1800 ca diet. Discussed exercise-3 0 minutes walk daily. Pt voiced understand ing. Gastroesop hageal reflux disease 453965726 K21.9 Pt is on Omeprazole 40 mg capsule po daily.Stab le.Dietary modificati ons underway.C ontinue PPI.Hydrat ion, stable. Stop using tobacco in all forms. Nicotine weakens the lower esophageal muscle.Julian idance of NSAIDs. Do not lie down immediatel y after eating. Avoid late evening snacks. Eat small, frequent portions of food and snack if needed. Lose weight if overweight . Obesity leads to increased reflux. Avoid- fatty or fried foods, peppermint and spearmint, whole milk, oils, chocolate, creamed foods or soups, most fast foods, citrus fruits and juices (grapefrui t, orange, pineapple, tomato), coffee (regular and decaffeina lino), caffeinate d soft drinks, tea, other caffeinate d beverages, Spicy or acidic foods. Avoid all Energy drinks such as- Monster, Red Bull, etc.Will continue to Monitor. Erectile dysfunction 860 932446 F52.21 Pt is on Tadalafil 10 mg tablet PRN. Will check current TRT levels. Will continue to follow. Hypothyroidism 79730456 E03.9 Will check TSHPt is on Levothyrox ine 100 mcg tablet po daily.Melonie ent is asymptomat ic without hair loss, heat/cold intoleranc es, significan t weight changes, f/u on thyroid function tests in 6 months. Body mass index 30+ - obesity 497725874 Z68.30 Patient counseled on saturated fat, avoiding saturated fats including beef, simpson, pork, poultry especially with skin, beef fat (tallow), lard and cream, butter, cheese, and ice cream.Melonie ent advised on starches to avoid such as pasta, white bread corn, potatoes, white rice. Starch alternativ es include whole-grai n pasta, whole wheat bread, brown rice.-- Patient advised to be active and exercise-- Patient to walk and do stationary exercise biking for 15 minutes twice a day up to 30 minutes twice a day-- Patient advised to do aquatic/po ol exercises/ walk and move arms senior media planner/la te evening 15 minutes twice a day up to 30 minutes twice a day. Emphasized that water resistance really helps.-- Patient encouraged to lose weight.-- Patient educated on the impact of BMI towards health.-- Patient to shop healthy/co ok in olive oil/eat colored leafy vegetables -- Patient to practice portion control/no t to exceed 1200 kcal-- Will continue to follow. Morbid obesity 940692139 E66.01 see above. Constipation 54705087 K5 9.00 Patient advised to take prune juicePatie nt to have increased fiber in his dietPatien t to increase hydrationw ill continue to Monitor. Psoriatic arthritis 1393 20014 L40.50 Psoriatic arthritis is a condition that causes joint pain, swelling, and stiffness. It happens in people who have a long-term skin condition called psoriasis. People with psoriasis have patches of thick, red skin that are often covered by silver or white scales. There is no cure for psoriatic arthritis, but different treatments can help ease and control symptoms. Treatment for joint symptoms usually involves one or more medication s. NSAIDs and Steroids are the first line treatment. Treatment for psoriatic arthritis is usually senior living. That's because even after symptoms get better, they sometimes return later on. Pain in right thumb 1076 189405 832378 M79.644 See HPI/PEwill refer to hand surgeon to further evaluateWi ll continue to follow Hepatitis C screening 41 7144646 Z11.59 CDC Recommenda tions for Hepatitis C Screening Among Adults in the [place]. [place] hepatitis C screening: Hepatitis C screening at least once in a lifetime for all adults aged 18 years and older, hepatitis C testing for baby boomer's (born 1945 to 1965).Paulo alatorre and Recommenda tions discussed with patient.Pt verbalized understand ing.Will screen Patient for Hepatitis C. Cardiac mahendra gallo in situ 257021238 Z95.0 No function pacemaker. Will continue to follow. [id number] [place] [id number] 3 08/14/2023 09:15:54 08/18/2023 11:43:12 [id number] [place] [id number] 3 08/19/2023 14:14:12 08/19/2023 15:14:50 Hyperlipidemia due to type 2 diabetes mellitus 4185706184 03989 E78.5 LDL: 69HDL: 27Choleste rol: 115Continu e to take the statin at current dose.Will continue to follow. Hypothyroidism 11683656 E03.9 TSH: 2.97Contin ue current dose of Levothyrox ine.Will continue to follow. Type 2 david betes mellitus 94303843 E11.21 A1C: 9.0Glucose : 154All diabetic medication s reviewed-- Continue current rx and add Metformin from 500 mg po qd to 500 mg po BID.Will refer to Endocrinol ogjoaquina.Explai surya the risks of uncontroll ed Diabetes and risks of NON compliance .Advised to eat more fruits and vegetables , cut Down on fatty fried oily foods, Cut down on Starchy foods. Recommend ADA low carb 1800 ca diet.Discu ssed exercise-3 0 minutes walk daily.Pt voiced understand ing. Psoriatic arthritis [id number] L40.50 Will refer to rheumatolo gy. Cardiac mahendra gallo in situ [id number] Z95.0 Refer to Cardiology May discuss status of pacemaker with cardiology Secondary immune deficiency disorder [id number] D84.81 Immunosupp ression due to DM. The patient has a weakened immune system and should call if they are having any problems or infection Gastroesop hageal reflux disease [id number] K21.9 Continue current PPI Qualitativ e platelet disorder [id number] D69.1 The enzyme MADSEN-1 in the platelets that causes the first step in the metabolism and conversion to arachidoni c acid to prostaglan din which then further metabolize s to thromboxan e A2 - thromboxan e A2 is released and causes platelet activation and aggregatio n and when inhibited causes less activation and platelet aggregatio n. it is by this physiology that ASA works causing a qualitativ e platelet defect which is the desired effect. the patient will continue ASA therapy at this time. Influenza vaccination given [id number] 9109 Z23 Influenza vaccine given Vitamin D deficiency [id number] E55.9 check Vit D in six months [id number] Sadi Lozada MD [facility] e [address] [place] [id number] 09/03/2023 14:58:15 09/03/2023 15:46:35 Cardiac pacemaker in situ [id number] Z95.0 He had Medtronic pacemaker placed in 1986. He had issues with its placement, and he ultimately required the device to be placed in his abdomen. About 8-10 years ago it was decided not to replace the generator, as he had not been utilizing the device. He then ultimately had an ILR placed in 2017. This has also reached end of life. No indication for removal at this time. Hypertensive disorder [id number] I10 Controlled on exam today. Hyperlipid emia due to type 2 diabetes mellitus [id number] 97412 E78.5 Lipid panel 08/14/23: TC 115, TG 101, HDL 27, LDL 69. On Atorvastat in 40mg. Type 2 david betes mellitus 03757413 E11.21 uncontroll ed. Atheroscle rosis of coronary artery without angina pectoris [id number] 82099 I25.10 No angina reported. On ASA/statin . Stented co ronary artery [id number] Z95.5 Stents to OM1x2 and RCA in 2010 Syncope and collapse 309 818519 R55 Thought to be vasovagal. He had both pacemaker (now non-functi onal) and ILR (at EOL) that did not reveal any arrhythmia s. No recurrence recently. [id number] Vish Fields DO [facility] [address] [place] [address] 09/19/2023 08:55:24 09/19/2023 09:43:58 Administration of pneumococcal vaccine [id number] Z23 Health Concerns Section Related Observation LastModified by Organization Detai ls LastModified Time None Recorded Concern Status LastModified by Organization Details LastModified Time None Recorded Advance Directives Directive Y: Payers Insurance Date Sequence Insurance Name Policy Number Policy Frazier Covered Member ID Frazier Member ID Guarantor Name 09/26/2023 1 [facility] - CAPITATION PLAN - NO DRUG PLAN - REGIONAL PPO (MEDICARE REPLACEMENT/ ADVANTAGE - PPO) [id number] Ced Mccracken [id number] Ced Mccracken 10/27/2023 2 FOR LIFE ( - MEDICARE SUPPLEMENT) Ced Mccracken [id number] Ced Mccracken Notes Date Note Type Note Provider Name and Address Organization Details Recorded Time 08/13/2023 text/html Patient is here for a New Patient Preventative visit. Overall, patient is doing well, other than right thumb having limitations. Patient is S/P right rotator cuff repair surgery on 07/03/2023. He also has on and off bouts of frequent urination. Presents with all medications to review.Healthcare maintenance/Screening reviewed and discussed with patient as below.- Last Colonoscopy Screen: UTD 10/2022 polpys removed- Vaccines:Discussed- PHQ screening performed today and reviewed.- Hearing: done- Falls : No falls reported.Advanced Directives: Discussed. will provide a copyAsked if patient has any Concerns:- with getting adequate exercise? No- with balance, walking or falls? No- with bladder control or leakage? NoIn addition PHQ-2/PHQ-9, AUDIT-C ,STEADI Fall Risk by staff in my presence. See results below.See assessment for details.Denies Fever/Chills, HEENT problems, CP/SOB, N/V/D/C, Dysuria, Myalgias, Heat/Cold intolerance, Mood issues or Rash EXCEPT mentioned above:Health maintenance: Vaccinations discussed.Past medical history, family history and social history reviewed. Vish Fields, DO [address] [place], [address], [facility] 08/13/2023 11:49:24 08/19/2023 text/html Mr. Mccracken, a 73yo male, with chronic medical conditions of CAD, SSS, HLD, HTN, HPOTHYROIDISM, PVD, GERD, ED, NIDDM and Psoriatic Arthritis (Enbrel use) presents today for a lab review of his new patient labs and medication adjustment for DM. He i presents for labs followup after being established as a new patient. It was discussed at his intial visit that he had non functional pacemaker and he has seen multiple cardiologists--he has opted not to have it taken out. CC: hga1c 9.0.--He does admit that he eats a lot of sugar.. Is uptodate with diabetic retinopathy and foot check.Fasting sugar this AM 108 Pt reports he has a good appetite and sleeps well. Nocturia x 1-2 prn..Denies Fever/Chills, HEENT problems, CP/SOB, N/V/D. Deals with constipation by drinking Prune juice which helps. Dysuria, Myalgias, Heat/Cold intolerance. Denies any headaches, dizziness, nor falls. Mood issues or Rash EXCEPT mentioned above: Patient presents today for injection of . Egg allergy: Immunosupression: Febrile seizures: Harshil Jiang, BLOG WRITER [address] [place], [address], [facility] 08/19/2023 15:30:31 09/03/2023 text/html Mr. Mccracken is a 73 yo male with hypertension, hyperlipidemia, CAD, s/p stents x3 2009, DM, nonfunctional PPM who presents today to establish care. Per his prior cardiology notes he underwent pacemaker implantation in 1986. He has had revisions in the past, and ultimately required it to be placed in his abdomen due tothe device moving. Apparently about 8-10 years ago, a decision was made not to replace pacemaker, so it was left in place. In about 2016, he started having recurrent syncopal episodes so he had an ILR placed. He had no arrhythmias on his loop, so it was decided that it was neurocardiogenic syncope. He also has loop still in place. He did have a near syncopal episode about 6 months ago, but this was in the setting where he was going in for penile injections. No recurrent episodes since then. Does not exercise on regular basis. Did recently have rotator cuff repair and has been undergoing physical therapy. Denies chest pain, palpitations, shortness or breath, dizziness, near-syncope or syncope. Echocardiogram 02/01/2022: Ejection fraction 60-65%. Mild concentric LVH. Grade 1 diastolic dysfunction. Mild TR.Stents to OM1x2 and RCA in 2009 JOSE REYNOLDS [address] [place], [address], [facility] 09/03/2023 16:29:11 09/19/2023 text/html InjectionReporte d bypatient.Patient presents today for injection:Prevnar 20 Vish Fields DO [address] [place], [address], [facility] 09/22/2023 15:16:14
[2025-02-16 13:55] LABS: NT Pro B Type Natriuretic Pept 337 pg/mL (19.9-100)
[2025-02-16 14:01] VITALS: BP 165/79; PULSE 80; RESP 16; O2SAT 99
[2025-02-16 14:03] VITALS: BP 165/79; PULSE 79; RESP 18; O2SAT 98
--- NOTE | 2025-02-16 14:03 | ED_ITS ---
HPI - SOB/Dyspnea General Chief Complaint: Shortness of Breath/Dyspnea Stated Complaint: sob Time Seen by Provider: 02/16/25 13:19 Source: patient Mode of arrival: ambulatory Limitations: no limitations History of Present Illness HPI Narrative: Patient is a 74-year-old male, past medical history of CAD status post CABG, pacemaker, DM, who presents to the ED with c/o shortness of breath. Patient reports feeling increasingly short of breath for the past 1 week. Worse with laying flat, exertion. Reports PND. Denies significant CP. Did undergo 4-vessel bypass with Rhett Salgado on 12/15. Also underwent pacemaker placement in early December. Sees Dr. Wakefield as well. Has intermittent swelling of his legs. Denies pain in the legs. Has had intermittent dry cough for the past few weeks. Denies fevers. Does note that he has been under increased stress with financial and home issues. Related Data Home Medications ?Medication ?Instructions ?Recorded ?Confirmed ?Last Taken ?Type aspirin 81 mg tablet,delayed 81 mg PO QAM 08/10/19 02/11/25 11/16/24 06:00 History release (Adult Low Dose Aspirin) acetaminophen 500 mg capsule 1,000 mg PO Q6H PRN 01/14/25 02/11/25 Unknown History atorvastatin 40 mg tablet (Lipitor) 40 mg PO .QOD 01/14/25 02/11/25 Unknown History benzonatate 100 mg capsule 100 mg PO TID PRN 01/14/25 02/11/25 Unknown History cholecalciferol (vitamin D3) 125 125 mcg PO DAILY 01/14/25 02/11/25 Unknown History mcg (5,000 unit) capsule cyanocobalamin (vitamin B-12) 500 500 mcg PO DAILY 01/14/25 02/11/25 Unknown History mcg tablet dulaglutide 3 mg/0.5 mL 3 mg subcut WEEKLY 01/14/25 02/11/25 Unknown History subcutaneous pen injector (Trulicity) furosemide 40 mg tablet 40 mg PO BID 01/14/25 02/11/25 Unknown History insulin degludec 100 unit/mL (3 20 unit subcut QHS 01/14/25 02/11/25 Unknown History mL) subcutaneous pen (Tresiba FlexTouch U-100 insulin) insulin lispro 100 unit/mL 1 sliding scale dose subcut 01/14/25 02/11/25 Unknown History subcutaneous pen (Humalog KwikPen USEASDIRECTD (U-100) Insulin) Allergies Allergy/AdvReac Type Severity Reaction Status Date / Time atropine Allergy Severe DECREASED Verified 02/16/25 13:01 HR meloxicam AdvReac Mild Dizziness Verified 02/16/25 13:01 Review of Systems 2 Review of Systems: All systems reviewed & are unremarkable except as noted in HPI. All systems reviewed & are unremarkable except as noted in HPI and below [facility] Past Medical History Medical History Mixed hyperlipidemia XOCHITL (obstructive sleep apnea) TIA (transient ischemic attack) Colonic mass Hypertension Obesity CAD (coronary artery disease) Umbilical hernia without mention of obstruction or gangrene Symptomatic cholelithiasis Diabetes mellitus Cervical radiculopathy Esophageal reflux Essential (primary) hypertension Hypothyroidism, unspecified Male erectile dysfunction, unspecified Metabolic syndrome Primary generalized (osteo)arthritis Psoriatic arthropathy Type 2 diabetes mellitus with hyperglycemia Cardiac pacemaker Fusion of spine, cervical region Kidney stone Infective otitis externa of left ear History of cardiac monitoring Surgical History Surgical History Hx of CABG S/P lumbar laminectomy (~02/2024) Status post colon resection S/P laparoscopic colectomy laparoscopic sigmoid colectomy with colorectal anastomosis, da Yolanda assisted History of laparoscopic cholecystectomy 05/10/20 Hx of tonsillectomy Hx of LASIK Hx of LASIK H/O heart artery stent 3 stents 2009 Family History Family History Sibling Acute myocardial infarction Cerebrovascular accident Depression Carcinoma of colon Grandparent Diabetes mellitus Family history of cardiovascular disease Carcinoma of colon, Onset Age: 85 Father Hypertension Family history of cardiovascular disease Acute myocardial infarction, Onset Age: 72 Social History Social History Social History: Caffeine-daily Smoking packs per day: 1 Smoking cigarettes per day: 20.0 Years smoked: 9 Smoking pack-years: 9.00 Smoking status: Former smoker Tobacco type: cigarettes and pipe Second hand tobacco smoke exposure: No Smoking end date: 09/02/82 Alcohol intake: never Drinks per week: 1 Alcohol use details: Rarely Substance use: never Substance use type: does not use Do You Feel Safe in your Home?: Yes Lack of Transportation: No Lack of Food: Never True Current Housing: I Have Housing Concerned About Future Housing: No Difficulty Paying Gas/Electric Bills: No Difficulty Paying for Meds: No Currently Unemployed: No Education: Master's Degree or Higher Difficulty w/ Childcare or Family Care: No Living arrangements: with family Additional living arrangements comments: DAUGHTER Gender identity (if verbalized by the patient): Male Spiritual care concerns: No Exam 2 Narrative: GENERAL: Elderly but well appearing, obese with BMI of 31.4, non-toxic, in no acute distress. HEAD: Normocephalic, atraumatic. RESPIRATORY: Airway patent, respirations nonlabored. Clear to auscultation bilaterally, no rales, rhonchi, wheezing. No significant focal lung sounds. CARDIOVASCULAR: Regular rate and rhythm without murmurs, rubs, or gallops. MUSCULOSKELETAL: Moves all extremities. No gross deformities. Trace nonpitting edema BLE. No calf tenderness. SKIN: Warm, dry, normal color. NEURO: A&O X3. Speech clear. Cranial nerves II-XII grossly intact. Steady gait. No ataxic movements. PSYCHIATRIC: Appropriate mood and affect. Normal interaction. Course Vital Signs Vital signs: Vital Signs Temperature 97.9 F 02/16/25 13:06 Pulse Rate 80 02/16/25 13:06 Respiratory Rate 18 02/16/25 13:06 Blood Pressure 181/80 H 02/16/25 13:06 Pulse Oximetry 98 02/16/25 13:06 Oxygen Delivery Room Air 02/16/25 13:06 Temperature 97.9 F 02/16/25 13:06 Pulse Rate 79 02/16/25 14:03 Respiratory Rate 18 02/16/25 14:03 Blood Pressure 165/79 H 02/16/25 14:03 Pulse Oximetry 98 02/16/25 14:03 Oxygen Delivery Room Air 02/16/25 14:02 MDM - SOB/Dyspnea MDM Narrative Medical decision making narrative: Patient presents to the ED with report of shortness of breath for the past 1 week. Hx of recent CABG. Denying CP. EKG with some nonspecific ST changes. No acute ST elevation or depression. Baseline troponin is undetectable. BNP within normal range for age, only 337. Patient does not appear markedly fluid overloaded at this time. Chest x-ray with possible pleural effusion versus atelectasis. Remainder basic laboratory studies are otherwise unremarkable. Patient does admit to increased stress recently with home life, trying to buy and sell their house. He is concerned anxiety may be contributing to his symptoms. CTA of chest was obtained and showing no PE, minimal left-sided pleural effusion. Possible small focal pericardial effusion. Patient reports he has been told this previously in the past since his surgery. 3 hour troponin also resulted undetectable. Patient has remained stable throughout ED stay. I ambulated him throughout the ED with a pulse oximeter and no ambulatory hypoxia was noted. Overall reassuring workup. Discussed case with Dr. Wakefield, cardiology, advised possible XOCHITL. Recommended patient to call office to make follow-up appointment and have sleep study arranged. Patient is in agreement with this plan. Feels comfortable going home. Discussed strict return precautions. Discharged in stable condition. Medical Records Attestation: I reviewed the patient's medical records. Lab Data Attestation: I reviewed the patient's lab results. 02/16/25 13:10 02/16/25 13:10 Labs: Lab Results 02/16/25 02/16/25 Range/Units 13:10 16:23 WBC 8.0 (4.5-10.0) K/mm3 RBC 4.64 (4.6-6.20) M/mm3 Hgb 11.2 L D (14.0-18.0) g/dL Hct 36.8 L (42.0-52.0) % MCV 79.3 L (80-100) fl MCH 24.1 L (26-34) pg MCHC 30.4 L (32-36) g/dl RDW 14.1 (11.5-14.5) % Plt Count 206 (150-375) k/mm3 MPV 8.2 (7.4-10.4) fl Immature Gran % (Auto) 0.2 (0-0.5) % Neut % (Auto) 66.7 (45.5-73.1) % Lymph % (Auto) 21.8 (18.3-44.2) % [place] % (Auto) 8.5 (2.6-8.5) % Eos % (Auto) 2.1 (0-4.4) % Baso % (Auto) 0.7 (0.2-1.2) % Lymph # (Auto) 1.75 (0.9-3.2) K/mm3 [place] # (Auto) 0.7 H (0.1-0.6) K/mm3 Eos # (Auto) 0.2 (0-0.3) K/mm3 Baso # (Auto) 0.1 (0.0-0.1) K/mm3 Abs Immat Gran (auto) 0.02 (0.00-0.031) K/mm3 Absolute Neuts (auto) 5.3 (1.3-6.7) K/mm3 Absolute Nucleated RBC 0.000 (0.0-0.012) K/mm3 Nucleated RBC % 0.0 (0.0-0.2) % PT 15.0 H (11.1-14.7) Seconds INR 1.2 APTT 29.7 (22.3-36.8) Seconds Sodium 140 (137-145) mmol/L Potassium 4.3 (3.4-5.0) mmol/L Chloride 104 (98-107) mmol/L Carbon Dioxide 24 (22-30) mmol/L Anion Gap 12 (4-12) mmol/L BUN 13 (9-20) mg/dL Creatinine 0.75 (0.7-1.3) mg/dL Estim Creat Clear Calc 81 ml/min Estimated GFR > 60 (59 - ) Glucose 215 H (65-110) mg/dL Calcium 9.6 (8.4-10.2) mg/dL Total Bilirubin 0.5 (0.2-1.3) mg/dL AST 28 (17-59) U/L ALT 18 (6-50) U/L Alkaline Phosphatase 98 (38-126) U/L Troponin I < 0.012 < 0.012 (0.000-0.034) ng/mL NT-Pro-B Natriuret Pep 337 H (19.9-100) pg/mL Total Protein 8.1 (6.3-8.2) g/dL Albumin 4.3 (3.5-5.1) g/dL Imaging Data Attestation: I personally reviewed and interpreted this imaging study as follows: Radiologist's impression: ITS Impressions Chest X-Ray 02/16/25 13:46 IMPRESSION: 1. Mild linear discoid atelectasis versus trace pleural effusion along with the major fissures. No other acute cardiopulmonary disease. Chest CTA 02/16/25 15:28 IMPRESSION: 1. No pulmonary embolism. 2. No acute cardiopulmonary pathology. 3. Minimal left pleural effusion. 4. Focal density in the anterior pericardium which may be focal pleural effusion or soft tissue density. Follow-up advised.) 5. Healing fracture in the left first rib. 6. Constipation. ECG Data EKG #1: Attestation: I personally reviewed and interpreted this ECG as follows: ECG completion date: 02/16/25 ECG completion time: 13:13 EKG Interpretation: normal rate (78), sinus rhythm (first degree AV block) and non-specific ST changes Discharge Plan Discharge Clinical Impression: Shortness of breath, History of coronary artery bypass graft Patient Disposition: Home Condition: Stable Instructions: Antibiotic Form, Dyspnea (ED), Shortness of Breath (ED) Additional Instructions: Call Dr. Wakefield's office tomorrow to make a follow-up appointment for further evaluation and possible sleep study for sleep apnea. Continue to monitor symptoms. Return to the ED if you experience worsening or severe shortness of breath, chest pain, pain or swelling in your legs, unable to keep down food or drink, persistent fevers, or any other symptoms of concern. Patient Language: Senegalese Prescriptions: No Action aspirin [Adult Low Dose Aspirin] 81 mg tablet,delayed release (DR/EC) 81 mg PO QAM (DME) lancets [FreeStyle Lancets] 28 gauge misc See Rx Instructions .Route Qty: 100 1RF Rx Instructions: As directed (DME) Freestyle InsuLinx Test Strips Strip See Rx Instructions .Route Qty: 100 2RF Rx Instructions: As directed Enbrel 50 mg/mL (1 mL) syringe 50 mg SUB-Q WEEKLY Qty: 13 0RF Rx Instructions: SUNDAYS sure click pen furosemide 40 mg tablet 40 mg PO BID insulin degludec [Tresiba FlexTouch U-100] 100 unit/mL (3 mL) insulin pen 20 unit subcut QHS acetaminophen 500 mg capsule 1,000 mg PO Q6H PRN atorvastatin [Lipitor] 40 mg tablet 40 mg PO .QOD benzonatate 100 mg capsule 100 mg PO TID PRN cholecalciferol (vitamin D3) 125 mcg (5,000 unit) capsule 125 mcg PO DAILY cyanocobalamin (vitamin B-12) 500 mcg tablet 500 mcg PO DAILY insulin lispro [Humalog KwikPen Insulin] 100 unit/mL insulin pen 1 sliding scale dose subcut USEASDIRECTD Rx Instructions: 6-12 units, subcutaneous, 4 times daily Trulicity 3 mg/0.5 mL pen injector 3 mg subcut WEEKLY (DME) pen needle, diabetic 32 gauge x 5/32 needle See Rx Instructions .Route Qty: 450 3RF Rx Instructions: Use to inject insulin 5 times daily clopidogrel 75 mg tablet 75 mg PO DAILY Qty: 90 1RF finasteride 5 mg tablet 5 mg PO DAILY Qty: 90 1RF levothyroxine [Synthroid] 100 mcg tablet 100 mcg PO QAM Qty: 90 1RF losartan 25 mg tablet 25 mg PO DAILY Qty: 90 1RF omeprazole 40 mg capsule,delayed release(DR/EC) 40 mg PO DAILY Qty: 90 1RF metformin 1,000 mg tablet 1,000 mg PO DAILY Qty: 90 1RF potassium chloride [K-Tab] 20 mEq tablet extended release 20 meq PO DAILY Qty: 90 1RF metoprolol tartrate 25 mg tablet 12.5 mg PO BID Qty: 180 1RF alcohol swabs [BD Alcohol Swabs] Pads, Medicated See Rx Instructions topical .COMPLEX Qty: 200 2RF Rx Instructions: topically use to cleanse area before testing blood sugars 2-3 times daily; Follow-up/Referrals: Maryann Jiménez DO [Primary Care Provider] - Winston Wakefield DO [Physician] - (CARDIOLOGY) Time of Disposition: 18:03
--- NOTE | 2025-02-16 14:22 | PC.NURSE ---
Pt. pressed his call light stating he is SOB. Oxygen is 100% on RA. Breathing is equal and unlabored. Speech is clear. Pt. and pt. at bedside discuss with this RN that they have had a lot of life stressors and curious if his SOB could be related to anxiety. They plan to bring concern up to LESLY betancourt when she comes to bedside.
[2025-02-16 14:30] LABS: INR 1.2
--- NOTE | 2025-02-16 14:30 | PC.NURSE ---
PA notified of conversation with pt. and pt. regarding possible anxiety.
[2025-02-16 14:31] VITALS: BP 159/71; PULSE 80; RESP 15; O2SAT 100
[2025-02-16 14:31] LABS: Partial Thromboplastin Time 29.7 Seconds (22.3-36.8); Troponin I < 0.012 ng/mL (0.000-0.034)
--- OUTSIDE RECORDS SUMMARY | 2025-02-16 15:25 | XMS_ITS | Encounter Summary ---
Author Organization [facility] Address [address] [address] Care Team Providers Care Cloth Boil Off Machine Operator Name Role Phone Unknown, Provider Primary Care Provider Unavaila ble Chai Giraldo MD Primary Care Provider [phone] Syl Mcadams MD Primary Care Provider [phone] Maryann Jiménez DO Primary Care Provider [phone] Encounter Details Date Type Department Care Team (Late st Contact Info) Description 01/02/2010 [facility] Liliana Owens MD [address] [facility] [address] [place] [address] Social History Tobacco Use Types Packs/Day Years Used Date Smoking Tobacco: Never Assessed Sex and Gender Information Value Date Recorded Sex Assigned at Not on file 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 Gender Identity Not on file Sexual Orientation Not on file documented as of this encounter Plan of Treatment Not on file documented as of this encounter Visit Diagnoses Not on filedocumented in this encounter Care Teams Cloth Boil Off Machine Operator Relationship Specialty Start Date End Date Unknown, Provider PCP - General 02/27/10 01/19/14 Chai Giraldo MD [address] [place] [id number] PCP - General 12/24/17 04/28/18 Syl Mcadams MD [address] [place] [address] PCP - General 04/29/18 09/06/22 Maryann Jiménez DO [address] [facility] [address] [place] [address] PCP - General 09/07/22 documented as of this encounter
--- OUTSIDE RECORDS SUMMARY | 2025-02-16 15:25 | XMS_ITS | Encounter Summary ---
Author Organization [facility] Address [address] [facility] [place] [address] Care Team Providers Care Meteorological Equipment Repairer Name Role Phone Syl Mcadams MD Primary Care Provider [phone] Maryann Jiménez DO Primary Care Provider [phone] Reason for Visit * Reason Onset Date Comments MEDICATION REFILL 11/08/2020 Encounter Details Date Type Department Care Team (Late st Contact Info) Description 11/08/2020 Refill [facility] [address] [place] [address], [place] [address] Nico Jones MD [address] [place] [address] [place] [address] MEDICATION REFILL Social History Tobacco Use Types Packs/Day Years Used Date Smoking Tobacco: Passive Smo ke Exposure - Never Smoker Smokeless Tobacco: Never Alcohol Use Standard Drinks/Week Comments Yes 0 (1 standard drink = 0.6 oz pur e alcohol) occaisional Sex and Gender Information Value Date Recorded Sex Assigned at Not on file 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 Gender Identity Not on file Sexual Orientation [...] 50 (fifty) mg subcutaneously every 7 days BLENDER documented in this encounter Plan of Treatment Not on file documented as of this encounter Visit Diagnoses Diagnosis Psoriatic arthritis (HCC)- Primary Psoriatic arthropathy documented in this encounter Care Teams Meteorological Equipment Repairer Relationship Specialty Start Date End Date Syl Mcadams MD [address] [place] [address] PCP - General 04/29/18 09/06/22 Maryann Jiménez DO [address] [facility] [address] [place] [address] PCP - General 09/07/22 documented as of this encounter
--- OUTSIDE RECORDS SUMMARY | 2025-02-16 15:25 | XMS_ITS | Encounter Summary ---
Author Organization [facility] Address [address] [facility] [address] [place] [address] Care Team Providers Care Referral And Information Aide Name Role Phone Syl Mcadams MD Primary Care Provider [phone] Syl Mcadams MD Primary Care Provider [phone] Miscellaneous, Not In File Primary Care Provider Unavailable Syl Mcadams MD Primary Care Provider [phone] Maryann Jiménez DO Primary Care Provider + Jose David Betancourt MD Unavailable [phone] Ty Lamb MD Unavailable [phone] Jatinder Jones MD Unavailable [phone] Miscellaneous, Not In File Unavailable Unava ilable Encounter Details Date Type Department Care Team (Late st Contact Info) Description 10/29/2016 Orders Only [facility] Provider, MD Mireille [address] [place] [id number] Social History Tobacco Use Types Packs/Day Years Used Date Smoking Tobacco: Former Alcohol Use Standard Drinks/Week Comments Yes 0 (1 standard drink = 0.6 oz pur e alcohol) Sex and Gender Information Value Date Recorded Sex Assigned at Not on file 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 Gender Identity Male 01/23/2020 12:25 AM CDT [...] documented as of this encounter Care Teams Referral And Information Aide Relationship Specialty Start Date End Date Syl Mcadams MD [address] [place] [address] PCP - General 11/30/16 01/21/17 Syl Mcadams MD [address] [place] [address] PCP - General 07/14/13 11/29/16 Miscellaneous, Not In File PCP - General 01/22/17 02/04/17 Syl Mcadams MD [address] [place] [address] PCP - General 02/05/17 07/02/22 Maryann Jiménez DO PCP - General Family Medicine 07/03/22 Jose David Betancourt MD [address] [facility] [address] [place] [address] Consulting Physician Urology 06/19/24 Ty Lamb MD [address] [facility] [address] [place] [address] Surgeon Cardiothoracic Surgery 12/21/24 Jatinder Jones MD [address] [facility] [address] [facility] [place] [address] Consulting Physician Cardiology 12/21/24 Miscellaneous, Not In File 12/21/24 documented as of this encounter
--- OUTSIDE RECORDS SUMMARY | 2025-02-16 15:26 | XMS_ITS | Encounter Summary ---
Author Organization [facility] Address [address] [place] [address] Care Team Providers Care Batch Plant Operator Name Role Phone Unknown, Provider Primary Care Provider Unavaila ble Chai Giraldo MD Primary Care Provider [phone] Syl Mcadams MD Primary Care Provider [phone] Maryann Jiménez DO Primary Care Provider [phone] Encounter Details Date Type Department Care Team (Late st Contact Info) Description 03/03/2012 [facility]PT Liliana Owens MD [address] [facility] [address] [place] [address] Social History Tobacco Use Types Packs/Day Years Used Date Smoking Tobacco: Never Assessed Sex and Gender Information Value Date Recorded Sex Assigned at Not on file 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 Gender Identity Not on file Sexual Orientation Not on file documented as of this encounter Plan of Treatment Not on file documented as of this encounter Visit Diagnoses Not on filedocumented in this encounter Care Teams Batch Plant Operator Relationship Specialty Start Date End Date Unknown, Provider PCP - General 02/27/10 01/19/14 Chai Giraldo MD [address] [place] [id number] PCP - General 12/24/17 04/28/18 Syl Mcadams MD [address] [place] [address] PCP - General 04/29/18 09/06/22 Maryann Jiménez DO [address] [facility] [address] [place] [address] PCP - General 09/07/22 documented as of this encounter
--- OUTSIDE RECORDS SUMMARY | 2025-02-16 15:26 | XMS_ITS | Referral Summary ---
Author Organization [facility] Address [facility] [place] [address] Care Team Providers Care Director Investment Banking Name Role Phone Maryann Jiménez DO Primary Care Provider + Jose David Betancourt MD Unavailable [phone] Theresa Lamb MD Unavailable [phone] Jatinder Jones MD Unavailable [phone] Miscellaneous, Not In File Unavailable Unava ilable Encounters Date Type Department Care Team Description 02/12/2025 Telephone [facility] Cardiology [address] [facility] [address] [place] [address] Jatinder Jones MD 02/11/2025 Telephone [facility] [address] [place] [address] [address] [place] [address] Alireza Clark MD Med Refill 01/27/2025 10:30 AM CDT Home Care Visit [facility] [address] [place] [address] Lori Puckett SN OASIS DISCHARGE 01/26/2025 1:15 PM CDT Office Visit [facility] [address] [facility] [address] [place] [address] Theresa Lamb MD Coronary artery disease (CAD) excluded (Primary Dx) 01/25/2025 [facility] Post Discharge Follow up phone call [facility] [id number] [place] [address] Ariella Larsen 01/21/2025 10:30 AM CDT Home Care Visit [address] [place] [address] Lori Puckett SN HOME VISIT 01/18/2025 Telephone [facility] [address] [place] [address] [address] [place] [address] Alireza Clark MD 01/18/2025 9:30 AM CDT Home Care Visit [address] [place] [address] Lori Puckett SN HOME VISIT 01/14/2025 Plan of Care Documentation [address] [place] [address] 01/13/2025 12:30 PM CDT Home Care Visit [address] [address] [place] [address] Kaitlynn Elizalde RN SN OASIS RESUMPTION OF CARE 01/12/2025 Orders Only [facility] Cardiology [address] [facility] [address], [place] [address] Jatinder Jones MD Presence of cardiac pacemaker (Primary Dx); SSS (sick sinus syndrome) (HCC); Bradycardia 01/12/2025 Orders Only [facility] [address] [place] [address] [address] [place] [address] Jose Vega NP 01/07/2025 1:01 PM CDT - 01/11/2025 7:12 PM CDT Hospital Encounter [address] [address] Sindhu Whittington MD Munfakh, Nabil A., MD Brother, Michele, MD Rivera, Samantha, MD Cardiac tamponade (Primary Dx); Cervical myofascial pain syndrome; Syncope and collapse; Frailty syndrome in geriatric patient Discharge Disposition: Discharge to home, home health skilled care 01/08/2025 3:36 PM CDT Anesthesia Event [facility] Operating Room [address] [place] [phone] Karen Tavarez DO Vuong, Peter Thuan, MD 01/08/2025 3:20 PM CDT - 01/08/2025 5:20 PM CDT Surgery [facility] Operating Room [address] [place] [address] Theresa Lamb MD REPLACE PACEMAKER GENERATOR FROM ABDOMEN WITH FLUOROSCOPY 01/07/2025 Home Care Visit [address] [address] [address] [place] [address] Lori Puckett OASIS TRANSFER W/OUT DC 01/07/2025 [...] CDT - 01/07/2025 12:14 PM CDT Emergency [facility] Emergency Department [address] [place] [address] Jt Mejia MD Lo Bianco, Salvador, MD Cardiac tamponade (Primary Dx); Bradycardia; Heart block Discharge Disposition: Discharge to a short term hospital for IP 01/05/2025 [facility] Post Discharge Follow up phone call [address] [address] Ariella Larsen 01/05/2025 [facility] Post Discharge Follow up phone call [address] [address] Ariella Larsen 01/05/2025 10:00 AM CDT Home Care Visit [address] [place] [address] Lori Puckett HOME VISIT 01/01/2025 Results Follow-Up [facility] at [address] [place] [phone] Nayely Sharp NP XR Chest Pa Lateral 2 Views 01/01/2025 2:45 PM CDT - 01/01/2025 11:59 PM CDT Hospital Encounter [facility] Radiology - Outpatient Center at [address] [address] Acute cough Discharge Disposition: Discharge to home or self care 01/01/2025 Documentation [facility] [address] [place] [address] [address] [place] [address] Jose Vega NP 01/01/2025 2:15 PM CDT Office Visit [facility] at [address] [place] [address] Nayely Sharp NP Acute cough (Primary Dx) 01/01/2025 9:30 AM CDT Home Care Visit [place] [address] [address] [place] [address] Kristal Allen, TOÑO SN HOME VISIT 12/31/2024 Orders Only [facility] [address] [place] [address] [address] [place] [address] Jose Vega, MASSIMO 12/29/2024 Home Care Visit [address] [place] [address] [facility] 12/29/2024 11:30 AM CDT Home Care Visit [address] [place] [address] Kristal Allen, TOÑO SN HOME VISIT 12/28/2024 Documentation [facility] [address] [place] [address] [address] [place] [address] Jose Vega NP 12/28/2024 12:00 PM CDT - 12/28/2024 11:59 PM CDT Hospital Encounter [facility] Diagnostic Imaging [id number] [place] [address] S/P CABG (coronary artery bypass graft) Discharge Disposition: Discharge to home or self care 12/28/2024 Orders Only [facility] [address] [place] [address] [address] [place] [address] Jose Vega NP S/P CABG (coronary artery bypass graft) (Primary Dx) 12/26/2024 11:57 AM CDT - 12/26/2024 11:59 PM CDT Hospital Encounter [facility] [address] [place] [address] Discharge Disposition: Discharge to home or self care 12/26/2024 11:30 AM CDT Home Care Visit [address] [place] [address] Lori Puckett SN HOME VISIT 12/25/2024 Home Care Visit [address] [place] [address] Yudith Ayers RN SN TRIAGE ENCOUNTER 12/23/2024 Plan of Care Documentation [address] [place] [address] 12/23/2024 9:30 AM CDT Home Care Visit [address] [place] [address] Tia Paz, TOÑO SN OASIS START OF CARE 12/21/2024 Telephone [facility] [address] [place] [address] Tushar Meeks MA 12/14/2024 8:40 AM CDT - 12/21/2024 4:28 PM CDT Hospital Encounter [address] [address] Theresa Lamb MD 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); Coronary artery disease of [place] artery of [place] heart with stable angina pectoris; Coronary arteriosclerosis in [place] artery Discharge Disposition: Discharge to home, home health skilled care 12/14/2024 1:00 PM CDT - 12/14/2024 6:30 PM CDT Surgery [facility] Operating Room [address] [place] [address] Theresa Lamb MD CORONARY ARTERY BYPASS GRAFT X 4 - INTERNAL MAMMARY/RADIAL ARTERY/SAPHENOUS VEIN GRAFT - LEG 12/14/2024 11:24 AM CDT Anesthesia Event [facility] Operating Room [address] [place] [address] Neeraj Craft MD Barnhart, Lynlee Jo, NP 12/08/2024 7:37 AM CDT - 12/08/2024 11:59 PM CDT Hospital Encounter [facility] Non-invasive Cardiac Diagnostic Testing [address] [place] [address] Coronary arteriosclerosis in [place] artery Discharge Disposition: Discharge to home or self care 12/07/2024 10:25 AM CDT - 12/07/2024 4:43 PM CDT Emergency [facility] Emergency Department [address] [place] [address] Waleska Mcneal MD Chest pain, unspecified type (Primary Dx) Discharge Disposition: Discharge to home or self care 12/04/2024 10:18 AM CDT - 12/04/2024 11:59 PM CDT Hospital Encounter [facility] Diagnostic Imaging [address] [place] [address] Discharge Disposition: Discharge to home or self care 12/04/2024 9:45 AM CDT Pre-Admission Testing [facility] Pre Anesthesia Testing [address] [place] [address] Coronary artery disease of [place] heart with stable angina pectoris, unspecified vessel or lesion type; Shortness of breath 12/01/2024 Orders Only [facility] [address] [place] [address] [place] [address] Theresa Lamb MD Coronary arteriosclerosis in [place] artery (Primary Dx) 12/01/2024 3:00 PM CDT Office Visit [facility] [address] [place] [address] [address] [place] [address] Theresa Lamb MD Coronary artery disease involving manchester coronary artery of [place] heart without angina pectoris (Primary Dx); Coronary artery disease involving [place] coronary artery of [place] heart, unspecified whether angina present 11/27/2024 12:30 PM CDT Office Visit [facility] Rheumatology at [address] [place] [address] Idania Mehta MD Polyarticular psoriatic arthritis (HCC) (Primary Dx); Encounter for long-term (current) use of high-risk medication; Coronary artery disease involving [place] coronary artery of [place] heart without angina pectoris 11/23/2024 Documentation [facility] [address] [facility] [place] [address] Kristal Edward NP PCP Callback Request - Patient; CTS Consultation- Patient CAll 11/17/2024 6:59 PM CDT - 11/17/2024 11:55 PM CDT Emergency [facility] Emergency Department [address] [place] [address] Jeremie Tucker MD Diarrhea, unspecified type (Primary Dx) Discharge Disposition: Discharge to home or self care 11/17/2024 Telephone [facility] Cardiology [address] [place] [address] Jatinder Jones MD 11/16/2024 Telephone [facility] Cardiology [address] [facility] [address], [place] [address] Matthew Gong MD 11/16/2024 Telephone [facility] [address] [facility] [facility] [address] [place] [address] Alireza Clark MD Freestyle Brenda [...] tabletIndication s:hypothyroidism Take 1 tablet by mouth psych nurse before breakfast Active metFORMIN (GLUCOPHAGE) 1,000 mg [...] hyperglycemia, with long-term current use of insulin ([facility]) Dx code E11.65. T2DM with hyperglycemia with half-way current use of insulin. 3 each 3 [...] are complete. Avoid live-vaccines unless reviewed with wallpaperer first. Overexertion from strenuous movement or load, [...] 08/07/2017 Assessment & Plan (08/17/2024 11:11 AM PASSENGER RELATIONS REPRESENTATIVE): Chronic, worsening. Restart Trulicity 3 mg weekly [...] and Trulicity Send me a message via [email or web address] every week, so we can look at [...] Overview (12/08/2016): Essential hypertension Coronary arteriosclerosis in [place] artery 09/28 Overview (12/08/2016): Coronary artery disease involving [place] coronary artery of [place] heart without angina pectoris Arthralgia of shoulder [...] materials from doctor or pharmacy Never 01/27/[address] [facility] Utilities Answer Date Recorded In the past 12 months has e [employer], gas, oil, or water [employer] threatened to shut off services in your [...] often do you attend chur ch or mu-ism services? More than 4 times per year 01/11/2025 Do you belong to any clubs o r organizations such as anabaptism groups, unions, fraternal or athletic groups, or [...] staff should administer the PHQ-9) 0 08/17/2024 [facility] [employer] [facility] Occupat ional Health - Occupational Stress [...] any time in the past 12 m [place], were you homeless or living in a halfway (including now)? No 01/11/2025 Personal Safety Answer Date Recorded Have you ever been in or are you currently in a harmful physical or emotional relationship or is someone making you feel afraid or unsafe? 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 Male 3:55 AM PASSENGER RELATIONS REPRESENTATIVE Gender Identity Male 01/23/2020 12:25 AM CDT [...] no relief. Medical Devices Implanted Type Area Muck Operator Device Identifier Shelf Expiration Date Model / Serial / Lot [employer] Active Fixation Steroid Eluting Latex Free Sterile Right Atrium Ventricle Ultipace 58cm [id number] - [id number] - [id number] Implanted:Qty: 1 on 01/08/2025 by Theresa Lamb MD at [facility] Lead Left: Chest [employer] [id number] 09/01/2027 [id number]/58 / [id number] / [employer] Active Fixation Steroid Eluting Latex Free Sterile Right Atrium Ventricle Ultipace 52cm [id number]/52 - [id number] - [id number] Implanted:Qty: 1 on 01/08/2025 by Theresa Lamb MD at [facility] Lead Left: Chest [employer] [id number] 10/31/2027 [id number]/52 / [id number] / [employer] Assurity Mri [id number] 2 Chamber Is-1 Connector Thk6mm Pacemaker [id number] - [id number] - [id number] Implanted:Qty: 1 on 01/08/2025 by Theresa Lamb MD at [facility] Pacemaker Left: Chest [employer] [id number] 06/01/2026 [id number] / [id number] / [employer] Liyah Ams 700 Kit Accessory Penile Prosthesis [id number] - [id number] Implanted:Qty: 1 on 06/18/2024 by Jose David Betancourt MD at [facility] N/A: Groin [employer] [id number] 04/08/2029 [id number] / / [id number] [employer] Ams Spectra 12/14mm .5cm Cylinder Concealable Malleable Rear Tip [id number] - [id number] Implanted:Qty: 1 on 06/18/2024 by Jose David Betancourt MD at [facility] N/A: Penis [employer] [id number] 02/15/2029 [id number] / / [id number] [employer] Ams 700 Preconnect 1 Ms Pump 2 Cylinder Penoscrotal Prosthesis [id number] - [id number] Implanted:Qty: 1 on 06/18/2024 by Jose David Betancourt MD at [facility] N/A: Penis [employer]ah [id number] 10/13/2025 [id number] / / [id number] [employer] Conceal Low Profile [place] 100ml Prosthesis Inhibizone Sterile Latex Free 355063-09 - [id number] Implanted:Qty: 1 on 06/18/2024 by Jose David Betancourt MD at [facility] Left: Pelvis [employer]ah [id number] 04/22/2026 173282-73 / / [id number] Procedures Procedure Name Priority Date/Time Associated Diagnosis [...] METABOLIC PANEL STAT 01/07/2025 4:45 PM CDT SC ARTL CATHJ/CANNULJ MNTR/TRANSFUSION SPX PRQ Routine 01/07/2025 [...] HIGH-SENSITIVITY 2-HOUR Timed 01/07/2025 10:28 AM CDT SC CRITICAL CARE ILL/INJURED PATIENT INIT 30-74 MIN [...] 8:03 AM CDT Coronary artery disease of [place] artery of [place] heart with stable angina pectoris POCT GLUCOSE [...] 9:01 PM CDT Coronary artery disease of [place] artery of [place] heart with stable angina pectoris POCT GLUCOSE [...] 1:57 PM CDT Coronary artery disease of [place] artery of [place] heart with stable angina pectoris POCT GLUCOSE [...] 9:57 PM CDT Coronary artery disease of [place] artery of [place] heart with stable angina pectoris POCT GLUCOSE [...] 6:07 PM CDT Coronary artery disease of [place] artery of [place] heart with stable angina pectoris POCT GLUCOSE [...] LINE PLACEMENT Routine 12/14/2024 11:59 AM CDT SC AN ELECTIVE ENDOTRACHEAL AIRWAY Routine 12/14/2024 11:51 AM CDT ANESTHESIA ARTERIAL LINE PLACEMENT Routine 12/14/2024 11:49 AM CDT CORONARY ARTERY BYPASS GRAFT - INTERNAL MAMMARY/RADIAL ARTERY/SAPHENOUS VEIN GRAFT - LEG 12/14/2024 11:23 AM CDT Coronary artery disease of [place] heart with stable angina pectoris, unspecified vessel or lesion type PREPARE RBC STAT 12/14/2024 9:02 AM CDT POCT GLUCOSE DEVICE Routine 12/14/2024 8 :57 AM CDT TRANSTHORACIC ECHO (TTE) COMPLETE W DOPPLER/CF WO CONTRAST Routine 12/08/2024 8:39 AM CDT Coronary arteriosclerosis in [place] artery TROPONIN T HIGH-SENSITIVITY 2-HOUR Timed 12/07/2024 [...] 10:45 AM CDT Coronary artery disease of [place] heart with stable angina pectoris, unspecified vessel or lesion type ECG 12-LEAD Routine 12/04/2024 10:34 AM CDT Coronary artery disease of [place] heart with stable angina pectoris, unspecified vessel or lesion type EGFR Routine 12/04/2024 9:57 AM CDT Coronary artery disease of [place] heart with stable angina pectoris, unspecified vessel or lesion type BASIC METABOLIC PANEL Routine 12/04/2024 9:57 AM CDT Coronary artery disease of [place] heart with stable angina pectoris, unspecified vessel or lesion type PROTIME-INR Routine 12/04/2024 9:57 AM CDT Coronary artery disease of [place] heart with stable angina pectoris, unspecified vessel or lesion type APTT Routine 12/04/2024 9:57 AM CDT Coronary artery disease of [place] heart with stable angina pectoris, unspecified vessel or lesion type Shortness of breath CBC WITHOUT DIFFERENTIAL Routine 12/04/2024 9:57 AM CDT Coronary artery disease of [place] heart with stable angina pectoris, unspecified vessel or lesion type TYPE AND SCREEN Routine 12/04/2024 9:57 AM CDT Coronary artery disease of [place] heart with stable angina pectoris, unspecified vessel or lesion type URINALYSIS AND REFLEX TO MICROSCOPIC AND CULTURE Routine 12/04/2024 9:57 AM CDT Coronary artery disease of [place] heart with stable angina pectoris, unspecified vessel [...] 220(H) 70 - 199 mg/dL POC Performer [id number] JE[facility] BRODERICK Blood 01/11/2025 1:21 PM CDT 01/11/2025 1:21 PM CDT us Génesis Delatorre MD LAB POCT ORDERABLES - DEVICE Final Result JEFF BRODERICK [address] Department [place] [address] * eGFR (01/11/2025 1:00 PM [...] CDT 01/11/2025 1:00 PM CDT Jose Vega TOOL ADJUSTER LAB BLOOD ORDERABLES Final Result [facility] [address] Department [place] [address] * (ABNORMAL) Renal function panel (01/11/2025 1:00 PM CDT) Sodium 141 135 - 145 mmol/L Potassium, pl 3.8 3.3 - 4.9 mmol/L [facility] Chloride 100 97 - 110 mmol/L [facility] CO2 27 22 - 32 mmol/L [facility] Anion gap 14 2 - 15 mmol/L [facility] BUN 16 6 - 25 mg/dL [facility] Creatinine 0.67(L) 0.80 - 1.30 mg/dL [facility] Glucose 198 70 - 199 mg/dL [facility] Comment: Interpretive Data Fasting glucose >/= 126 [...] 2022. Calcium 9.3 8.5 - 10.3 mg/dL [facility] Phosphorus, pl 2.8 2.3 - 4.5 mg/dL [facility] Albumin 3.6 3.5 - 5.0 g/dL [facility] Blood 01/11/2025 1:00 PM CDT 01/11/2025 1:00 PM CDT us Jose Vega NP LAB BLOOD ORDERABLES Final Result JEFF [address] Department [place] [address] * eGFR (01/11/2025 9:11 AM CDT) eGFR [...] ORDERABLES Final R esult Performing Organization Address City/[facility] Co de Phone Number JEFF BRODERICK [address] [place] [address] * (ABNORMAL) CBC without differential [...] BLOOD ORDERABLES Final Result Performing Organization Address [facility] Co de Phone Number JEFF BRODERICK [address] Department of [employer] [place], [place] [id number] * (ABNORMAL) CBC without differential (01/11/2025 9:11 AM CDT) WBC 8.77 3.80 - 9.90 K/cumm Hgb 11.0(L) 13.0 - 17.5 g/dL [facility] Hct 36.3(L) 38.9 - 50.3 % [facility] Plt 258 150 - 400 K/cumm [facility] MPV 9.0(L) 9.1 - 12.3 fL [facility] RBC 4.17(L) 4.30 - 5.80 M/cumm [facility] MCV 87.1 81.3 - 96.4 fL [facility] MCH 26.4(L) 27.1 - 33.3 pg [facility] MCHC 30.3(L) 32.3 - 35.7 g/dL [facility] RDW CV 13.8 11.1 - 14.9 % [facility] RDW SD 44.1 35.7 - 48.1 fL [facility] NRBC abs 0.00 0.00 - 0.01 K/cumm [facility] Blood 01/11/2025 9:11 AM CDT 01/11/2025 1:02 PM CDT us Theresa Lamb MD LAB BLOOD ORDERABLES Final R esult [facility] [address] Department [place] [address] * (ABNORMAL) Renal function panel (01/11/2025 9:11 AM CDT) Sodium 138 135 - 145 mmol/L Potassium, pl 3.7 3.3 - 4.9 mmol/L [facility] Chloride 98 97 - 110 mmol/L [facility] CO2 29 22 - 32 mmol/L [facility] Anion gap 11 2 - 15 mmol/L [facility] BUN 16 6 - 25 mg/dL [facility] Creatinine 0.67(L) 0.80 - 1.30 mg/dL [facility] Glucose 198 70 - 199 mg/dL [facility] Comment: Interpretive Data Fasting glucose >/= 126 [...] 2022. Calcium 9.4 8.5 - 10.3 mg/dL [facility] Phosphorus, pl 2.8 2.3 - 4.5 mg/dL [facility] Albumin 3.7 3.5 - 5.0 g/dL [facility] Blood 01/11/2025 9:11 AM CDT 01/11/2025 1:02 PM CDT Theresa Lamb MD LAB BLOOD ORDERABLES Final R esult JEFF BRODERICK [address] Department of [employer] [place], [place] [id number] * POCT glucose (01/11/2025 8:12 AM CDT) Pathologist [facility] Glucose, POC 189 70 - 199 mg/dL POC Performer [id number] [facility] Blood 01/11/2025 8:12 AM CDT 01/11/2025 8:12 AM CDT Génesis Delatorre MD LAB POCT ORDERABLES - DEVICE Final Result Performing Organization Address [facility] Co de Phone Number SAMANTHAROGER BRODERICK [address] Department [place] [address] * (ABNORMAL) POCT glucose (01/10/2025 9:34 PM CDT) Glucose, POC 250(H) 70 - 199 mg/dL POC Performer [id number] [facility] Blood 01/10/2025 9:34 PM CDT 01/10/2025 9:34 PM CDT Génesis Delatorre MD LAB POCT ORDERABLES - DEVICE Final Result Performing Organization Address City/[facility] Co de Phone Number JEFF BRODERICK [address] Department of [employer] [place], [place] [id number] * TRANSTHORACIC ECHO (TTE) LIMITED/FOLLOW UP W LTD DOPPLER/CF WO CONTRAST (01/10/2025 6:28 PM CDT) EF Mod BP 60 % CONS SCIMAGE Anatomical Region Laterality Modality Ultrasound 01/10/2025 5:28 PM CDT Narrative 01/10/2025 5:59 [place] [address] Limited Echocardiogram Report Patient Name: SHAWN SHULTZ B : 1950 Study Date: 01/10/2025 5:28:40 PM Gender: M Tech: MD Location: [id number] Ref Provider: KRISTAL EDWARD Height(Cm): 168 BSA: [...] Procedure Note Jose Godoy MD - 01/10/2025 [place] [address] Limited Echocardiogram Report Patient Name: SHAWN SHULTZ B : 1950 Study Date: 01/10/2025 5:28:40 PM Gender: M Tech: MD Location: [place] [address] Ref Provider: KRISTAL EDWARD Height(Cm): 168 BSA: [...] 246(H) 70 - 199 mg/dL POC Performer [id number] [facility] Blood 01/10/2025 4:49 PM CDT 01/10/2025 4:49 PM CDT Génesis Delatorre MD LAB POCT ORDERABLES - DEVICE Final Result Performing Organization Address [facility]/ZIP Co de Phone Number JEFF [address] Department of Laboratories [place] [phone] * Type and screen (01/10/2025 12:49 PM CDT) ABO Rh A Negative Antonio, indirect Negative [facility] Blood 01/10/2025 12:4 9 PM CDT 01/10/2025 12:53 PM CDT Narrative [facility] - 01/10/2025 1:41 PM CDT Has the patient had Daratumumab or Isatuximab in the past 6 months?->Unknown Theresa Lamb MD LAB BLOOD BANK TEST ORDERABL ES Final Result Performing Organization Address City/[facility]/ZIP Co de Phone Number JEFF BRODERICK [address] [address] [facility] [place] [address] * (ABNORMAL) POCT glucose (01/10/2025 12:05 PM CDT) Glucose, POC 208(H) 70 - 199 mg/dL POC Performer [id number] [facility] Blood 01/10/2025 12:0 5 PM CDT 01/10/2025 12:05 PM CDT Génesis Delatorre MD LAB POCT ORDERABLES - DEVICE Final Result Performing Organization Address [facility] de Phone Number JEFF BRODERICK [address] [place] [address] * POCT glucose (01/10/2025 8:05 AM CDT) Glucose, POC 194 70 - 199 mg/dL POC Performer [id number] [facility] Blood 01/10/2025 8:05 AM CDT 01/10/2025 8:05 AM CDT Génesis Delatorre MD LAB POCT ORDERABLES - DEVICE Final Result Performing Organization Address [facility] de Phone Number JEFF BRODERICK [address] [address] [facility] [place] [address] * Calcium, ionized, whole blood (01/10/2025 7:43 AM CDT) Ca, ionized, bld 4.63 4.50 - 5.10 mg/dL Blood 01/10/2025 7:43 AM CDT 01/10/2025 7:53 AM CDT Theresa Lamb MD LAB BLOOD ORDERABLES Final R esult Performing Organization Address [facility] Co de Phone Number JEFF BRODERICK [address] [address] [place] [address] * eGFR (01/10/2025 7:43 AM CDT) eGFR [...] LAB BLOOD ORDERABLES Fin al Result JEFF [address] Department [place] [address] * (ABNORMAL) CBC without differential (01/10/2025 7:43 AM CDT) Pathologist [facility] WBC 8.90 3.80 - 9.90 K/cumm Hgb 9.9(L) 13.0 - 17.5 g/dL [facility] Hct 32.4(L) 38.9 - 50.3 % [facility] Plt 232 150 - 400 K/cumm [facility] MPV 8.7(L) 9.1 - 12.3 fL [facility] RBC 3.78(L) 4.30 - 5.80 M/cumm [facility] MCV 85.7 81.3 - 96.4 fL [facility] MCH 26.2(L) 27.1 - 33.3 pg [facility] MCHC 30.6(L) 32.3 - 35.7 g/dL [facility] CH RDW CV 13.6 11.1 - 14.9 % [facility] RDW SD 42.4 35.7 - 48.1 fL [facility] NRBC abs 0.00 0.00 - 0.01 K/cumm [facility] Blood 01/10/2025 7:43 AM CDT 01/10/2025 7:55 AM CDT Theresa Lamb MD LAB BLOOD ORDERABLES Final R esult Performing Organization Address City/[facility]/ZIP Co de Phone Number JEFF BRODERICK [address] [address] [place] [address] * Magnesium (01/10/2025 7:43 AM CDT) Pathologist [facility] Magnesium 1.9 1.4 - 2.5 mg/dL Blood 01/10/2025 7:43 AM CDT 01/10/2025 7:55 AM CDT Theresa Lamb MD LAB BLOOD ORDERABLES Final R esult Performing Organization Address City/[facility] Co de Phone Number JEFF BRODERICK [address] [place] [address] * (ABNORMAL) Renal function panel (01/10/2025 7:43 AM CDT) Sodium 136 135 - 145 mmol/L Potassium, pl 4.1 3.3 - 4.9 mmol/L [facility] Chloride 102 97 - 110 mmol/L [facility] CO2 26 22 - 32 mmol/L [facility] Anion gap 8 2 - 15 mmol/L [facility] BUN 14 6 - 25 mg/dL [facility] Creatinine 0.67(L) 0.80 - 1.30 mg/dL [facility] Glucose 186 70 - 199 mg/dL [facility] Comment: Interpretive Data Fasting glucose >/= 126 [...] 2022. Calcium 8.9 8.5 - 10.3 mg/dL [facility] Phosphorus, pl 2.3 2.3 - 4.5 mg/dL [facility] Albumin 3.3(L) 3.5 - 5.0 g/dL [facility] Blood 01/10/2025 7:43 AM CDT 01/10/2025 7:55 AM CDT us Theresa Lamb MD LAB BLOOD ORDERABLES Final R esult [facility] [address] [address] Department [place] [address] * XR Chest 1 View (01/10/2025 6:05 [...] 239(H) 70 - 199 mg/dL POC Performer [id number] [facility] CH Blood 01/09/2025 9:09 PM CDT 01/09/2025 9:09 PM CDT Génesis Delatorre MD LAB POCT ORDERABLES - DEVICE Final Result Performing Organization Address [facility] Co de Phone Number JEFF BRODERICK [address] [address] [place] [address] * (ABNORMAL) POCT glucose (01/09/2025 5:32 PM CDT) Glucose, POC 254(H) 70 - 199 mg/dL POC Performer [id number] [facility] Blood 01/09/2025 5:32 PM CDT 01/09/2025 5:32 PM CDT Génesis Delatorre MD LAB POCT ORDERABLES - DEVICE Final Result Performing Organization Address City/[facility] Co de Phone Number JEFF [address] [address] [place] [address] * (ABNORMAL) POCT glucose (01/09/2025 12:59 PM CDT) Glucose, POC 226(H) 70 - 199 mg/dL POC Performer [id number] [facility] Blood 01/09/2025 12:5 9 PM CDT 01/09/2025 12:59 PM CDT Génesis Delatorre MD LAB POCT ORDERABLES - DEVICE Final Result Performing Organization Address City/[facility]/ZIP Co de Phone Number JEFF BRODERICK [address] [address] [employer] [place], [place] [id number] * POCT glucose (01/09/2025 7:47 AM CDT) Glucose, POC 191 70 - 199 mg/dL POC Performer [id number] [facility] Blood 01/09/2025 7:47 AM CDT 01/09/2025 7:47 AM CDT Génesis Delatorre MD LAB POCT ORDERABLES - DEVICE Final Result Performing Organization Address [facility] Co de Phone Number SAMANTHAROGER BRODERICK [address] [address] [place] [address] * Calcium, ionized, whole blood (01/09/2025 6:20 AM CDT) Ca, ionized, bld 4.52 4.50 - 5.10 mg/dL Blood 01/09/2025 6:20 AM CDT 01/09/2025 7:08 AM CDT Theresa Lamb MD LAB BLOOD ORDERABLES Final R esult Performing Organization Address City/[facility] Co de Phone Number JEFF BRODERICK [address] [address] [facility] [employer] [place], [place] [id number] * eGFR (01/09/2025 6:20 AM CDT) eGFR [...] NP LAB BLOOD ORDERABLES Fin al Result [facility] [address] [address] Department [place] [address] * (ABNORMAL) CBC without differential (01/09/2025 6:20 AM CDT) WBC 10.74(H) 3.80 - 9.90 K/cumm Hgb 9.7(L) 13.0 - 17.5 g/dL [facility] Hct 32.0(L) 38.9 - 50.3 % [facility] Plt 279 150 - 400 K/cumm [facility] MPV 8.8(L) 9.1 - 12.3 fL [facility] RBC 3.70(L) 4.30 - 5.80 M/cumm [facility] MCV 86.5 81.3 - 96.4 fL [facility] MCH 26.2(L) 27.1 - 33.3 pg [facility] MCHC 30.3(L) 32.3 - 35.7 g/dL [facility] RDW CV 13.4 11.1 - 14.9 % [facility] RDW SD 42.2 35.7 - 48.1 fL [facility] NRBC abs 0.00 0.00 - 0.01 K/cumm [facility] Blood 01/09/2025 6:20 AM CDT 01/09/2025 7:11 AM CDT Theresa Lamb MD LAB BLOOD ORDERABLES Final R esult Performing Organization Address City/[facility] Co de Phone Number JEFF [address] [address] Department [place] [address] * Magnesium (01/09/2025 6:20 AM CDT) Pathologist [facility] Magnesium 1.9 1.4 - 2.5 mg/dL Blood 01/09/2025 6:20 AM CDT 01/09/2025 7:11 AM CDT Theresa Lamb MD LAB BLOOD ORDERABLES Final R esult Performing Organization Address [facility] de Phone Number [facility] [address] [place] [address] * (ABNORMAL) Renal function panel (01/09/2025 6:20 AM CDT) Sodium 135 135 - 145 mmol/L Potassium, pl 3.9 3.3 - 4.9 mmol/L [facility] Chloride 101 97 - 110 mmol/L [facility] CO2 24 22 - 32 mmol/L [facility] Anion gap 10 2 - 15 mmol/L [facility] BUN 17 6 - 25 mg/dL [facility] Creatinine 0.75(L) 0.80 - 1.30 mg/dL [facility] Glucose 195 70 - 199 mg/dL [facility] Comment: Interpretive Data Fasting glucose >/= 126 [...] 2022. Calcium 8.5 8.5 - 10.3 mg/dL [facility] Phosphorus, pl 2.7 2.3 - 4.5 mg/dL [facility] Albumin 3.3(L) 3.5 - 5.0 g/dL [facility] Blood 01/09/2025 6:20 AM CDT 01/09/2025 7:11 AM CDT us Theresa Lamb MD LAB BLOOD ORDERABLES Final R esult JEFF [address] [address] Department [place] [address] * XR Chest 1 View (01/09/2025 6:15 [...] 161 70 - 199 mg/dL POC Performer [id number] JEFF BRODERICK Blood 01/08/2025 8:21 PM CDT 01/08/2025 8:21 PM CDT Génesis Delatorre MD LAB POCT ORDERABLES - DEVICE Final Result SAMANTHAROGER [address] Department [place] [address] * XR Chest 1 Vw Portable (01/08/2025 [...] PROCEDURES F inal Result Performing Organization Address [facility] Co de Phone Number RAD_PACS_ * (ABNORMAL) POCT glucose (01/08/2025 11:56 AM CDT) Glucose, POC 222(H) 70 - 199 mg/dL POC Performer [id number] JEFF BRODERICK Blood 01/08/2025 11:5 6 AM CDT 01/08/2025 11:56 AM CDT Theresa aLmb MD LAB POCT ORDERABLES - DEVICE Final Result Performing Organization Address [facility] Co de Phone Number [facility] [address] [address] Department [place] [address] * Infection Prevention MRSA Only (Staphylococcus aureus) PCR Nasal (01/08/2025 8:06 AM CDT) PCR Scrn, Methicillin resistant Staphylococcus aureus (MRSA) Not Detected Not Detected [facility] Comment: Interpretive Data Testing performed using Nucleic Acid Amplification with the [employer] Xpert MRSA NxG Assay. This assay detects target DNA from mecA, mecC and the SCCmec insertion site of Staphylococcus aureus using Real-Time PCR and has been cleared by the FDA. Performance characteristics have been verified by the [facility]. Current Interpretive Data was last revised on 2023 Nasal 01/08/2025 8:06 AM CDT 01/08/2025 8:11 AM CDT us Theresa Lamb MD LAB MICROBIOLOGY - GENERAL O RDERABLES Final Result Performing Organization Address [facility] Co de Phone Number JEFF BRODERICK [address] Department [place] [address] * (ABNORMAL) POCT glucose (01/08/2025 8:03 AM CDT) Glucose, POC 237(H) 70 - 199 mg/dL POC Performer [id number] JEFF Blood 01/08/2025 8:03 AM CDT 01/08/2025 8:03 AM CDT Génesis Delatorre MD LAB POCT ORDERABLES - DEVICE Final Result Performing Organization Address [facility] Co de Phone Number JEFF BRODERICK [address] [address] Department [place] [address] * Critical Care (01/08/2025 7:02 AM CDT) [...] with the ICU team and other medical/business analyst consultant staff, making frequent assessments and decisions [...] 163 70 - 199 mg/dL POC Performer [id number] [facility] Blood 01/08/2025 5:06 AM CDT 01/08/2025 5:06 AM CDT Theresa Lamb MD LAB POCT ORDERABLES - DEVICE Final Result Performing Organization Address [facility] Co de Phone Number JEFF [address] [address] [place] [address] * eGFR (01/08/2025 12:33 AM [...] 01/08/2025 12:33 AM CDT us Fran Mcgrath TOOL ADJUSTER LAB BLOOD ORDERABLES Fin al Result Performing Organization Address City/[facility]/ZIP Co de Phone Number JEFF [address] [address] [place] [address] * Magnesium (01/08/2025 12:33 AM CDT) Magnesium 1.9 1.4 - 2.5 mg/dL Blood 01/08/2025 12:3 3 AM CDT 01/08/2025 12:33 AM CDT us Theresa Lamb MD LAB BLOOD ORDERABLES Final R esult Performing Organization Address City/[facility]/ZIP Co de Phone Number JEFF BRODERICK [address] [address] [place] [address] * (ABNORMAL) Renal function panel (01/08/2025 12:33 AM CDT) Sodium 136 135 - 145 mmol/L Potassium, pl 4.0 3.3 - 4.9 mmol/L [facility] Chloride 103 97 - 110 mmol/L [facility] CO2 24 22 - 32 mmol/L [facility] Anion gap 9 2 - 15 mmol/L [facility] BUN 14 6 - 25 mg/dL [facility] Creatinine 0.71(L) 0.80 - 1.30 mg/dL [facility] Glucose 212(H) 70 - 199 mg/dL [facility] Comment: Interpretive Data Fasting glucose >/= 126 [...] ORDERABLES Final R esult Performing Organization Address City/[facility]/ZIP Co de Phone Number JEFF BRODERICK [address] [address] Department [place] [address] * (ABNORMAL) POCT glucose (01/08/2025 12:26 AM CDT) Glucose, POC 232(H) 70 - 199 mg/dL POC Performer [id number] JEFF Blood 01/08/2025 12:2 6 AM CDT 01/08/2025 12:26 AM CDT Génesis Delatorre MD LAB POCT ORDERABLES - DEVICE Final Result Performing Organization Address [facility] de Phone Number [facility] [address] [address] [place] [address] * (ABNORMAL) Troponin T high-sensitivity (01/08/2025 12:20 AM CDT) Trop T hs 72(H) <=22 ng/L Comment: Interpretive Data For further hscTnT resources including the diagnostic algorithm and an aid in interpretation, copy and paste this link: https://nrl.testcatalog.org/show/hsTrop Current Interpretive Data last revised 2020. Blood 01/08/2025 12:2 0 AM CDT 01/08/2025 12:34 AM CDT Fran Mcgrath TOOL ADJUSTER LAB BLOOD ORDERABLES Fin al Result Performing Organization Address [facility] de Phone Number [facility] [address] [address] [place] [address] * Calcium, ionized, whole blood (01/08/2025 12:20 AM CDT) Ca, ionized, bld 4.73 4.50 - 5.10 mg/dL Blood 01/08/2025 12:2 0 AM CDT 01/08/2025 12:35 AM CDT Theresa Lamb MD LAB BLOOD ORDERABLES Final R esult Performing Organization Address [facility]/ZIP Co de Phone Number JEFF BRODERICK [address] [address] [place] [address] * (ABNORMAL) CBC without differential (01/08/2025 12:20 AM CDT) WBC 10.30(H) 3.80 - 9.90 K/cumm Hgb 9.8(L) 13.0 - 17.5 g/dL [facility] Hct 31.1(L) 38.9 - 50.3 % [facility] Plt 341 150 - 400 K/cumm [facility] MPV 8.6(L) 9.1 - 12.3 fL [facility] RBC 3.66(L) 4.30 - 5.80 M/cumm [facility] MCV 85.0 81.3 - 96.4 fL [facility] MCH 26.8(L) 27.1 - 33.3 pg [facility] MCHC 31.5(L) 32.3 - 35.7 g/dL [facility] RDW CV 13.3 11.1 - 14.9 % [facility] RDW SD 41.7 35.7 - 48.1 fL [facility] NRBC abs 0.00 0.00 - 0.01 K/cumm [facility] Blood 01/08/2025 12:2 0 AM CDT 01/08/2025 12:39 AM CDT us Theresa Lamb MD LAB BLOOD ORDERABLES Final R esult JEFF [address] [place] [address] * (ABNORMAL) POCT glucose (01/07/2025 9:55 PM CDT) Glucose, POC 249(H) 70 - 199 mg/dL POC Performer [id number] [facility] Blood 01/07/2025 9:55 PM CDT 01/07/2025 9:55 PM CDT Theresa Lamb MD LAB POCT ORDERABLES - DEVICE Final Result Performing Organization Address [facility] Co de Phone Number SAMANTHAROGER [address] [address] [place] [address] * Critical Care (01/07/2025 8:43 PM CDT) [...] with the patient's team and other medical/business analyst consultant staff. This time was in addition to and separate from care provided by other practitioners on this day of service. us Heri Tovar TOOL ADJUSTER IN CLINIC/BEDSIDE ORDER BEATRIZ Final Result * (ABNORMAL) POCT glucose (01/07/2025 7:54 PM CDT) Pathologist [facility] Glucose, POC 266(H) 70 - 199 mg/dL POC Performer [id number] [facility] Blood 01/07/2025 7:54 PM CDT 01/07/2025 7:54 PM CDT us Theresa Lamb MD LAB POCT ORDERABLES - DEVICE Final Result Performing Organization Address [facility] Co de Phone Number JEFF BRODERICK [address] [address] Department [place] [address] * (ABNORMAL) Troponin T high-sensitivity (01/07/2025 6:24 [...] ORDERABLES Fin al Result Performing Organization Address [facility] de Phone Number JEFF [address] [address] [facility] [place] [address] * Type and screen (01/07/2025 6:24 PM CDT) Antonio, indirect Negative ABO Rh A Negative [facility] Blood 01/07/2025 6:24 PM CDT 01/07/2025 6:42 PM CDT Narrative [facility] - 01/07/2025 7:44 PM CDT Has the patient had Daratumumab or Isatuximab in the past 6 months?->Unknown Fran Mcgrath NP LAB BLOOD BANK TEST ORDE RABLES Final Result Performing Organization Address [facility] de Phone Number JEFF [address] [address] [facility] [place] [address] * Urinalysis reflex to microscopic (01/07/2025 5:32 [...] tendency for uric acid stone formation. Source: [facility] Current Interpretive Data was last revised on [...] Reflex conditions for microscopic UA not met. [facility] Urine 01/07/2025 5:32 PM CDT 01/07/2025 5:42 PM CDT Fran Mcgrath NP LAB URINE ORDERABLES Fin al Result Performing Organization Address [facility] Co de Phone Number [facility] [address] [address] [employer] [place], [place] [id number] * Strep pneumoniae antigen, urine Urine (01/07/2025 [...] AL ORDERABLES Final Result Performing Organization Address [facility] Co de Phone Number [facility] [address] [address] [place] [address] * Legionella antigen Urine (01/07/2025 5:32 PM CDT) [facility] Legionella Ag Negative Negative Comment: Interpretive Data This test detects only Legionella pneumophila serogroup 1 antigen. Current interpretive data was last revised on 2019. Urine 01/07/2025 5:32 PM CDT 01/07/2025 5:42 PM CDT Fran Mcgrath NP LAB MICROBIOLOGY - GENER AL ORDERABLES Final Result [facility] [address] Department [place] [address] * (ABNORMAL) Respiratory pathogen panel Nasopharyngeal (01/07/2025 5:30 PM CDT) [facility] Influenza A RNA Not Detected Not Detected Influenza B RNA Not Detected Not Detected [facility] RSV RNA Not Detected Not Detected [facility] COVID-19 RNA Not Detected Not Detected [facility] Coronavirus 229E RNA Not Detected Not Detected [facility] Coronavirus HKU1 RNA Not Detected Not Detected [facility] Coronavirus NL63 RNA Not Detected Not Detected [facility] Coronavirus OC43 RNA Not Detected Not Detected [facility] Adenovirus DNA Not Detected Not Detected [facility] Metapneumovirus RNA Detected(A) Not Detected [facility] Rhinovirus/Enterov irus RNA Not Detected Not Detected [facility] Parainfluenza 1 RNA Not Detected Not Detected [facility] Parainfluenza 2 RNA Not Detected Not Detected [facility] Parainfluenza 3 RNA Not Detected Not Detected [facility] Parainfluenza 4 RNA Not Detected Not Detected [facility] B. pertussis DNA Not Detected Not Detected [facility] B. parapertussis DNA Not Detected Not Detected [facility] C. pneumoniae DNA Not Detected Not Detected [facility] M. pneumoniae DNA Not Detected Not Detected [facility] Comment: Interpretive Data The Exepron FilmArray Respiratory Panel (RP2.1) assay is a [...] assay has FDA clearance for testing of TOOL ADJUSTER swabs. The performance characteristics of this assay have been determined by [facility]. Current interpretive data was last revised on 2021. Nasopharyngeal 01/07/2025 5: 30 PM CDT 01/07/2025 6:35 PM CDT Shanice Pacheco 01/07/2025 8:39 PM CDT Is the Patient experiencing symptoms consistent with COVID?->Unknown Surveillance testing for transplant patient?->No Fran Mcgrath TOOL ADJUSTER LAB MICROBIOLOGY - GENER AL ORDERABLES Final Result JEFF BRODERICK [address] [address] Department [place] [address] * Critical Care (01/07/2025 4:59 PM CDT) [...] with the ICU team and other medical/business analyst consultant staff, making frequent assessments and decisions [...] in the medical record us Fran Mcgrath TOOL ADJUSTER IN CLINIC/BEDSIDE ORDERA BLES Final Result * (ABNORMAL) Troponin T high-sensitivity (01/07/2025 4:45 PM CDT) Trop T hs 79(H) <=22 ng/L Comment: Interpretive Data For further hscTnT resources including the diagnostic algorithm and an aid in interpretation, copy and paste this link: https://nrl.testcatalog.org/show/hsTrop Current Interpretive Data last revised 2020. Blood 01/07/2025 4:45 PM CDT 01/07/2025 5:10 PM CDT us Fran Mcgrath TOOL ADJUSTER LAB BLOOD ORDERABLES Fin al Result Performing Organization Address City/[facility]/ZIP Co de Phone Number JEFF [address] [address] [facility] [employer] [place], [place] [id number] * Sepsis Lactate w/ Reflex (01/07/2025 4:45 PM CDT) Sepsis Lactate 1.9 0.7 - 2.0 mmol/L Blood 01/07/2025 4:45 PM CDT 01/07/2025 5:10 PM CDT Sindhu Whittington MD LAB BLOOD ORDERABLES Iris l Result Performing Organization Address [facility] Co de Phone Number JEFF [address] [address] [facility] [place] [address] * Lactate (01/07/2025 4:45 PM CDT) Lactate 1.9 0.7 - 2.0 mmol/L Blood 01/07/2025 4:45 PM CDT 01/07/2025 5:10 PM CDT Fran Mcgrath TOOL ADJUSTER LAB BLOOD ORDERABLES Fin al Result Performing Organization Address [facility] Co de Phone Number JEFF [address] [address] [facility] [employer] [place], [place] [address] * Calcium, ionized, whole blood (01/07/2025 4:45 PM CDT) Ca, ionized, bld 4.62 4.50 - 5.10 mg/dL Blood 01/07/2025 4:45 PM CDT 01/07/2025 5:10 PM CDT Fran Mcgrath TOOL ADJUSTER LAB BLOOD ORDERABLES Fin al Result Performing Organization Address [facility] Co de Phone Number [facility]OGER [address] [address] [facility] [place] [address] * eGFR (01/07/2025 4:45 PM CDT) eGFR [...] LAB BLOOD ORDERABLES Fin al Result JEFF [address] [address] Department [place] [address] * (ABNORMAL) Pro B-type natriuretic [...] CDT 01/07/2025 5:10 PM CDT Fran Mcgrath TOOL ADJUSTER LAB BLOOD ORDERABLES Fin al Result Performing Organization Address [facility] [place] Number [place] [address] [place] [address] * Thyroid Function Weld (01/07/2025 4:45 PM CDT) TSH 0.75 0.30 - 4.20 mcIUnit/mL Blood 01/07/2025 4:45 PM CDT 01/07/2025 5:10 PM CDT Fran Mcgrath TOOL ADJUSTER LAB BLOOD ORDERABLES Fin al Result Performing Organization Address [facility] [place] [address] [address] [employer] [place], [place] [id number] * aPTT (01/07/2025 4:45 PM CDT) aPTT 32 28 - 38 sec Comment: Interpretive Data Heparin therapeutic range: 66.0 - 100.0 seconds. Range based on correlation with therapeutic heparin activity range of 0.3 - 0.7 Units/mL. Current interpretive data was last revised on 2023. Blood 01/07/2025 4:45 PM CDT 01/07/2025 5:10 PM CDT Fran Mcgrath TOOL ADJUSTER LAB BLOOD ORDERABLES Fin al Result JEFF BRODERICK [address] [address] [place] [address] * (ABNORMAL) Protime-INR (01/07/2025 4:45 PM CDT) [...] ORDERABLES Fin al Result Performing Organization Address City/[facility]/ZIP Co de Phone Number JEFF BRODERICK [address] [address] Department [place] [address] * Fibrinogen (01/07/2025 4:45 PM CDT) Fibrinogen 359 170 - 400 mg/dL Blood 01/07/2025 4:45 PM CDT 01/07/2025 5:10 PM CDT Fran Mcgrath TOOL ADJUSTER LAB BLOOD ORDERABLES Fin al Result JEFF BRODERICK [address] [address] [place] [address] * (ABNORMAL) CBC without differential (01/07/2025 4:45 PM CDT) Pathologist [facility] WBC 9.43 3.80 - 9.90 K/cumm Hgb 9.9(L) 13.0 - 17.5 g/dL [facility] Hct 31.6(L) 38.9 - 50.3 % [facility] Plt 306 150 - 400 K/cumm [facility] MPV 8.7(L) 9.1 - 12.3 fL [facility] RBC 3.72(L) 4.30 - 5.80 M/cumm [facility] MCV 84.9 81.3 - 96.4 fL [facility] MCH 26.6(L) 27.1 - 33.3 pg [facility] MCHC 31.3(L) 32.3 - 35.7 g/dL [facility] CH RDW CV 13.4 11.1 - 14.9 % [facility] RDW SD 41.4 35.7 - 48.1 fL [facility] NRBC abs 0.00 0.00 - 0.01 K/cumm [facility] CH Blood 01/07/2025 4:45 PM CDT 01/07/2025 5:12 PM CDT Fran Mcgrath TOOL ADJUSTER LAB BLOOD ORDERABLES Fin al Result Performing Organization Address [facility] de Phone Number [facility] [address] [facility] [place] [address] * Uric acid (01/07/2025 4:45 PM CDT) [facility] Uric acid 4.0 3.0 - 8.0 mg/dL Blood 01/07/2025 4:45 PM CDT 01/07/2025 5:10 PM CDT Fran Mcgrath TOOL ADJUSTER LAB BLOOD ORDERABLES Fin al Result Performing Organization Address [facility] de Phone Number [facility] [address] [place] [address] * Phosphorus (01/07/2025 4:45 PM CDT) Phosphorus, pl 2.7 2.3 - 4.5 mg/dL Blood 01/07/2025 4:45 PM CDT 01/07/2025 5:10 PM CDT Fran Mcgrath TOOL ADJUSTER LAB BLOOD ORDERABLES Fin al Result Performing Organization Address [facility] de Phone Number JEFF BRODERICK [address] [place] [address] * Magnesium (01/07/2025 4:45 PM CDT) Magnesium 1.7 1.4 - 2.5 mg/dL Blood 01/07/2025 4:45 PM CDT 01/07/2025 5:10 PM CDT Fran Mcgrath TOOL ADJUSTER LAB BLOOD ORDERABLES Fin al Result Performing Organization Address [facility] de Phone Number SAMANTHAROGER BRODERICK [address] [place] [address] * Blood gas, venous (01/07/2025 4:45 PM CDT) Pathologist [facility] pH, Venous 7.41 7.32 - 7.43 [...] CDT 01/07/2025 5:10 PM CDT Fran Mcgrath TOOL ADJUSTER LAB BLOOD ORDERABLES Fin al Result Performing Organization Address [facility] Co de Phone Number JEFF BRODERICK [address] [facility] [place] [address] * Creatine kinase (CK), total (01/07/2025 4:45 PM CDT) CK 52 40 - 300 Units/L Blood 01/07/2025 4:45 PM CDT 01/07/2025 5:10 PM CDT Fran Mcgrath TOOL ADJUSTER LAB BLOOD ORDERABLES Fin al Result JEFF [address] [place] [address] * Creatine kinase (CK), total (01/07/2025 4:45 PM CDT) Pathologist [facility] CK 51 40 - 300 Units/L Blood 01/07/2025 4:45 PM CDT 01/07/2025 5:10 PM CDT Fran Mcgrath TOOL ADJUSTER LAB BLOOD ORDERABLES Fin al Result Performing Organization Address [facility] Co de Phone Number JEFF BRODERICK [address] [place] [address] * Bilirubin, direct (01/07/2025 4:45 PM CDT) [facility] Bilirubin, direct 0.1 0.1 - 0.3 mg/dL Blood 01/07/2025 4:45 PM CDT 01/07/2025 5:10 PM CDT Fran Mcgrath TOOL ADJUSTER LAB BLOOD ORDERABLES Fin al Result Performing Organization Address [facility]/ZIP Co de Phone Number SAMANTHAROGER [address] [place] [address] * (ABNORMAL) Comprehensive metabolic panel (01/07/2025 4:45 PM CDT) Pathologist [facility] Sodium 138 135 - 145 mmol/L [...] NP LAB BLOOD ORDERABLES Fin al Result [facility] [address] Department [place] [address] * SC ARTL CATHJ/CANNULJ MNTR/TRANSFUSION SPX PRQ (01/07/2025 3:30 PM CDT) Narrative Fran Mcgrath NP - 01/07/2025 3:30 PM CDT Fran Mcgrath NP 01/26/2025 5:55 PM Arterial Line Insertion Date/Time: 01/07/2025 3:30 PM Performed by: Fran Mcgrath NP Authorized by: Fran Mcgrath NP [place] Protocol: RN Notified of Procedure: yes Informed [...] my critical care time 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, bradycardia Post [...] PM CDT Narrative 01/07/2025 3:24 [place] [address] Echocardiogram Report Patient Name: SHAWN SHULTZ BRI : 1950 Study Date: 01/07/2025 1:26:17 PM Gender: M Tech: Location: [id number] Ref Provider: FRAN MCGRATH Height(Cm): 168 BSA: [...] Procedure Note Isidro Carvalho MD - 01/07/2025 [place] [address] Echocardiogram Report Patient Name: SHAWN SHULTZ BRI : 1950 Study Date: 01/07/2025 1:26:17 PM Gender: M Tech: JELANI Location: [id number] Ref Provider: FRAN MCGRATH Height(Cm): 168 BSA: [...] PM CDT) 01/07/2025 2:15 PM CDT Narrative [facility] - 01/07/2025 2:36 PM CDT Vent Rate: 96 bpm RR Interval: 625 msec SC Interval: 234 msec QRS Duration: 101 msec QT Interval: 367 msec QTC Interval: 420 msec P-R-T [place]: 24 - 119 - 97 degrees IMPRESSION: SINUS RHYTHM WITH FIRST DEGREE AV BLOCK INCOMPLETE RIGHT BUNDLE BRANCH BLOCK RIGHT VENTRICULAR HYPERTROPHY NONSPECIFIC ST \T\ T-WAVE ABNORMALITY Electronically Signed By: Washington Díaz MD, [facility] us Fran Mcgrath NP ECG ORDERABLES Final Re sult [facility] * X-ray chest 1 view (Portable) (01/07/2025 [...] signed by: Zenon Wing M.D. Fran Mcgrath TOOL ADJUSTER IMG XR PROCEDURES Final Result * (ABNORMAL) POCT glucose (01/07/2025 12:53 PM CDT) Glucose, POC 212(H) 70 - 199 mg/dL POC Performer [id number] JEFF BRODERICK Blood 01/07/2025 12:5 3 PM CDT 01/07/2025 12:53 PM CDT Génesis Delatorre MD LAB POCT ORDERABLES - DEVICE Final Result JEFF BRODERICK [address] Department [place] [address] * (ABNORMAL) Troponin T high-sensitivity 2-hour (01/07/2025 10:28 AM CDT) Trop T hs 74(H) <=22 ng/L Comment: Michael Mcnulty RN ER Interpretive Data For further hscTnT resources including the diagnostic algorithm and an aid in interpretation, copy and paste this link: https://nrl.testcatalog.org/show/hsTrop Current Interpretive Data last revised 2020. Trop T hs delta 41(C) ng/L [facility] ([place]) Comment:Critical Result call ed by [email or web address] at 2025-01-07 11:19:30. Result Read Back by Michael Mcnulty RN ER Trop T hs interp Significa nt(C) CERNER [facility]IS ([place]) Comment:Critical Result call ed by [email or web address] at 2025-01-07 11:19:30. Result Read Back by Michael Mcnulty RN ER Blood 01/07/2025 10:2 8 AM CDT 01/07/2025 10:33 AM CDT us Jt Mejia MD LAB BLOOD ORDERABLE S Final Result JEFF [facility]ARRIS ([place]) 1 [facility] Department [place] [address] * SC CRITICAL CARE ILL/INJURED PATIENT INIT 30-74 MIN [...] ORDERABLES - NOAH CE Final Result JEFF [facility] [address] [place] [address] * TRANSTHORACIC ECHO (TTE) LIMITED/FOLLOW UP WO DOPPLER/CF WO CONTRAST (01/07/2025 9:32 AM CDT) Pathologist [facility] Estimated EF 65 % CONS SCIMAGE Anatomical Region Laterality Modality Ultrasound 01/07/2025 9:09 AM CDT Narrative 01/07/2025 9:54 AM CDT [address] [address] Limited Echocardiogram Report Patient Name: SHAWN SHULTZHAILY : 1950 Study Date: 01/07/2025 9:09:51 AM Gender: M Tech: AA Location: [facility] Ref Provider: JT MEJIA Height(Cm): BSA: Weight(Kg): [...] Procedure Note Jose Godoy MD - 01/07/[address] [place] [address] Limited Echocardiogram Report Patient Name: SHAWN SHULTZ BRI : 1950 Study Date: 01/07/2025 9:09:51 AM Gender: M Tech: AA Location: [facility] Ref Provider: JT MEJIA Height(Cm): BSA: Weight(Kg): [...] Lyla Salamanca M.D. FT: FT Report ID: [id number] Reading Location: [id number] Procedure Note Lyla Roberson MD - 01/07/2025 [...] Lyla Salamanca M.D. FT: FT Report ID: [id number] Reading Location: [id number] Jt Mejia MD IMG XR PROCEDURES F inal Result * (ABNORMAL) Sepsis Lactate w/ Reflex (01/07/2025 8:58 AM CDT) Sepsis Lactate 3.9(H) 0.7 - 2.0 mmol/L Blood 01/07/2025 8:58 AM CDT 01/07/2025 9:01 AM CDT Jt Mejia MD LAB BLOOD ORDERABLE S Final Result Performing Organization Address City/[facility] Co de Phone Number JEFF IGLESIAS [place]) [address] [facility] [place] [address] * (ABNORMAL) Troponin T high-sensitivity series (baseline, [...] ORDERABLE S Final Result Performing Organization Address City/[facility]/ZIP Co de Phone Number JEFF IGLESIAS ([place]) [address] [facility] [place] [address] * eGFR (01/07/2025 8:40 AM CDT) eGFR [...] BLOOD ORDERABLE S Final Result [facility] ([place]) 1 [facility] Department [place] [address] * (ABNORMAL) Differential, auto (01/07/2025 8:40 AM [...] S Final Result JEFF [facility] ([place]) 1 [facility] Department [place] [address] * (ABNORMAL) CBC with auto differential (01/07/2025 [...] RDW CV 13.3 11.1 - 14.9 % [facility] ([place]) RDW SD 41.5 35.7 - 48.1 fL [facility] ([place]) NRBC abs 0.00 0.00 - 0.01 K/cumm [facility] ([place]) Blood 01/07/2025 8:40 AM CDT 01/07/2025 8:45 AM CDT Jt Mejia MD LAB BLOOD ORDERABLE S Final Result JEFF [facility] ([place]) 1 [facility] [place] [address] * Magnesium (01/07/2025 8:40 AM CDT) Pathologist [facility] Magnesium 1.7 1.4 - 2.5 mg/dL Blood 01/07/2025 8:40 AM CDT 01/07/2025 9:44 AM CDT us Jt Mejia MD LAB BLOOD ORDERABLE S Final Result Performing Organization Address City/[facility]/ZIP Co de Phone Number [facility]ROGER [facility] ([place]) 1 [facility] [place] [address] * (ABNORMAL) Comprehensive metabolic panel (01/07/2025 8:40 AM CDT) Sodium 138 135 - 145 mmol/L Potassium, pl 3.4 3.3 - 4.9 mmol/L [facility] ([place]) Chloride 102 97 - 110 mmol/L [facility] ([place]) CO2 20(L) 22 - 32 mmol/L [facility] ([place]) Anion gap 16(H) 2 - 15 mmol/L [facility] ([place]) BUN 11 6 - 25 mg/dL [facility] ([place]) Creatinine 0.79(L) 0.80 - 1.30 mg/dL [facility] ([place]) Glucose 248(H) 70 - 199 mg/dL [facility] ([place]) Comment: Interpretive Data Fasting glucose [...] S Final Result JEFF [facility] ([place]) 1 [facility] Department [place] [address] * ECG 12 lead (01/07/2025 8:39 AM CDT) 01/07/2025 8:39 AM CDT Narrative [facility] - 01/07/2025 9:28 AM CDT Vent Rate: 91 bpm RR Interval: 654 msec SC Interval: 238 msec QRS Duration: 111 msec QT Interval: 394 msec QTC Interval: 443 msec P-R-T [place]: 7 - 132 - 71 degrees IMPRESSION: [...] Mejia MD ECG ORDERABLES Fin al Result [facility] * XR Chest Pa Lateral 2 Views [...] Meir Ascencio M.D. KT: KT Report ID: [id number] Reading Location: [id number] Procedure Note Meir Ascencio MD - 01/01/2025 [...] Meir Ascencio M.D. KT: KT Report ID: [id number] Reading Location: [place] [address] us Nayely Sharp TOOL ADJUSTER IMG XR PROCEDURES Fin al Result * [...] by: Vick Cruz M.D. us Jose Vega TOOL ADJUSTER IMG XR PROCEDURES Final Res ult * [...] Vega NP LAB BLOOD ORDERABLES Final Result [facility] Department [place] [address] * (ABNORMAL) Differential, auto (12/26/2024 11:57 AM CDT) Neutrophil abs 5.27 1.50 - 6.50 K/cumm Imm gran abs 0.06 0.00 - 0.10 K/cumm [facility] Lymphocyte abs 1.07 0.80 - 3.30 K/cumm [facility] Monocyte abs 0.87(H) 0.20 - 0.80 K/cumm [facility] Eosinophil abs 0.33 0.00 - 0.50 K/cumm [facility] Basophil abs 0.07 0.00 - 0.10 K/cumm [facility] Neutrophil pct 68.7 % [facility] Comment: Interpretive Data Percent cell count reference ranges are not reported, since discordance with absolute values may lead to misinterpretation of CBC data. Current Interpretive Data was last revised on 2017. Imm gran pct 0.8 % [facility] Comment: Interpretive Data Percent cell count reference ranges are not reported, since discordance with absolute values may lead to misinterpretation of CBC data. Current Interpretive Data was last revised on 2017. Lymphocyte pct 14.0 % [facility] Comment: Interpretive Data Percent cell count reference ranges are not reported, since discordance with absolute values may lead to misinterpretation of CBC data. Current Interpretive Data was last revised on 2017. Monocyte pct 11.3 % [facility] Comment: Interpretive Data Percent cell count reference ranges are not reported, since discordance with absolute values may lead to misinterpretation of CBC data. Current Interpretive Data was last revised on 2017. Eosinophil pct 4.3 % [facility] Comment: Interpretive Data Percent cell count reference ranges are not reported, since discordance with absolute values may lead to misinterpretation of CBC data. Current Interpretive Data was last revised on 2017. Basophil pct 0.9 % [facility] Comment: Interpretive Data Percent cell count reference ranges are not reported, since discordance with absolute values may lead to misinterpretation of CBC data. Current Interpretive Data was last revised on 2017. Blood 12/26/2024 11:5 7 AM CDT 12/26/2024 4:02 PM CDT us Jose Vega TOOL ADJUSTER LAB BLOOD ORDERABLES Final Result [facility] Department [place] [address] * (ABNORMAL) CBC with auto differential (12/26/2024 11:57 AM CDT) WBC 7.67 3.80 - 9.90 K/cumm Hgb 10.3(L) 13.0 - 17.5 g/dL [facility] Hct 32.4(L) 38.9 - 50.3 % [facility] Plt 447(H) 150 - 400 K/cumm [facility] MPV 8.3(L) 9.1 - 12.3 fL [facility] RBC 3.65(L) 4.30 - 5.80 M/cumm [facility] MCV 88.8 81.3 - 96.4 fL [facility] MCH 28.2 27.1 - 33.3 pg [facility] MCHC 31.8(L) 32.3 - 35.7 g/dL [facility] RDW CV 14.5 11.1 - 14.9 % [facility] RDW SD 46.3 35.7 - 48.1 fL [facility] NRBC abs 0.00 0.00 - 0.01 K/cumm [facility] Blood 12/26/2024 11:5 7 AM CDT 12/26/2024 4:02 PM CDT Jose Vega NP LAB BLOOD ORDERABLES Final Result [facility] Department [place] [address] * (ABNORMAL) Comprehensive metabolic panel (12/26/2024 11:57 AM CDT) Sodium 142 135 - 145 mmol/L Potassium, pl 3.8 3.3 - 4.9 mmol/L [facility] Chloride 105 97 - 110 mmol/L [facility] CO2 25 22 - 32 mmol/L [facility] Anion gap 12 2 - 15 mmol/L [facility] BUN 11 6 - 25 mg/dL [facility] Creatinine 0.75(L) 0.80 - 1.30 mg/dL [facility] Glucose 254(H) 70 - 199 mg/dL [facility] Comment: Interpretive Data Fasting glucose [...] 2022. Calcium 9.1 8.5 - 10.3 mg/dL [facility] Bilirubin, total <0.2 0.1 - 1.2 mg/dL [facility] Protein, pl 6.7 6.5 - 8.5 g/dL [facility] Albumin 3.7 3.5 - 5.0 g/dL [facility] Alk phos 93 40 - 130 Units/L [facility] ALT 21 7 - 55 Units/L [facility] AST 19 10 - 50 Units/L [facility] Blood 12/26/2024 11:5 7 AM CDT 12/26/2024 4:02 PM CDT us Jose Vega NP LAB BLOOD ORDERABLES Final Result Performing Organization Address City/[facility]/ZIP Co de Phone Number [facility] Department [place] [address] * POCT glucose (12/21/2024 12:50 PM CDT) Glucose, POC 186 70 - 199 mg/dL POC Performer [id number] [facility] Blood 12/21/2024 12:5 0 PM CDT 12/21/2024 12:50 PM CDT us Theresa Lamb MD LAB POCT ORDERABLES - DEVICE Final Result [facility] [address] Department [place] [address] * (ABNORMAL) Urinalysis reflex to microscopic and culture Urine, clean voided (12/21/2024 12:22 PM CDT) Color, ur Yellow Yellow Clarity, ur Clear Clear [facility] Specific gravity, ur 1.033(H) 1.003 - 1.030 [facility] pH, urine 5.0 [facility] Comment: Interpretive Data U rine pH is affected by diet, medications, systemic acid-base disturbances, and renal tubular function. pH may affect urinary stone formation. For example, urine pH below 6.0 may help reduce the tendency for calcium phosphate stones and pH greater than 6.0 may reduce the tendency for uric acid stone formation. Source: [facility] Current Interpretive Data was last revised on [...] MICROBIOLOGY - GENERAL ORDERABLES Final Result JEFF [address] Department [place] [address] * XR Chest PA Lateral 2 Views [...] Corey Limon II, D.O. us Jose Vega TOOL ADJUSTER IMG XR PROCEDURES Final Res ult * POCT glucose (12/21/2024 7:41 AM CDT) Glucose, POC 100 70 - 199 mg/dL POC Performer [id number] JEFF BRODERICK Blood 12/21/2024 7:41 AM CDT 12/21/2024 7:41 AM CDT us Theresa Lamb MD LAB POCT ORDERABLES - DEVICE Final Result SAMANTHAROGER [address] Department [place] [address] * eGFR (12/21/2024 7:25 AM CDT) eGFR [...] CDT 12/21/2024 7:48 AM CDT Jose Vega TOOL ADJUSTER LAB BLOOD ORDERABLES Final Result JEFF [address] Department [place] [address] * (ABNORMAL) CBC without differential [...] CDT 12/21/2024 7:48 AM CDT Jose Vega TOOL ADJUSTER LAB BLOOD ORDERABLES Final Result JEFF [address] [place] [address] * (ABNORMAL) Basic metabolic panel (12/21/2024 7:25 AM CDT) Sodium 141 135 - 145 mmol/L Potassium, pl 3.0(L) 3.3 - 4.9 mmol/L [facility] Chloride 102 97 - 110 mmol/L [facility] CO2 26 22 - 32 mmol/L [facility] Anion gap 13 2 - 15 mmol/L [facility] BUN 28(H) 6 - 25 mg/dL [facility] Creatinine 0.85 0.80 - 1.30 mg/dL [facility] Glucose 100 70 - 199 mg/dL [facility] Comment: Interpretive Data Fasting glucose >/= 126 [...] 2022. Calcium 9.2 8.5 - 10.3 mg/dL [facility] Blood 12/21/2024 7:25 AM CDT 12/21/2024 7:48 AM CDT us Jose Vega NP LAB BLOOD ORDERABLES Final Result Performing Organization Address City/[facility]/ZIP Co de Phone Number JEFF BRODERICK [address] [place] [address] * POCT glucose (12/20/2024 9:19 PM CDT) [facility] Signature Glucose, POC 134 70 - 199 mg/dL POC Performer [id number] [facility] Blood 12/20/2024 9:19 PM CDT 12/20/2024 9:19 PM CDT us Theresa Lamb MD LAB POCT ORDERABLES - DEVICE Final Result Performing Organization Address City/[facility] Co de Phone Number JEFF BRODERICK [address] [place] [address] * POCT glucose (12/20/2024 5:21 PM CDT) Glucose, POC 196 70 - 199 mg/dL POC Performer [id number] [facility] Blood 12/20/2024 5:21 PM CDT 12/20/2024 5:21 PM CDT Theresa Lamb MD LAB POCT ORDERABLES - DEVICE Final Result Performing Organization Address [facility] Co de Phone Number JEFF BRODERICK [address] [facility] [place] [address] * (ABNORMAL) POCT glucose (12/20/2024 4:03 PM CDT) Glucose, POC 216(H) 70 - 199 mg/dL POC Performer [id number] [facility] Blood 12/20/2024 4:03 PM CDT 12/20/2024 4:03 PM CDT Theresa Lamb MD LAB POCT ORDERABLES - DEVICE Final Result Performing Organization Address [facility] de Phone Number JEFF BRODERICK [address] [facility] [place] [address] * (ABNORMAL) POCT glucose (12/20/2024 11:59 AM CDT) Glucose, POC 245(H) 70 - 199 mg/dL POC Performer [id number] [facility] Blood 12/20/2024 11:5 9 AM CDT 12/20/2024 11:59 AM CDT Theresa Lamb MD LAB POCT ORDERABLES - DEVICE Final Result Performing Organization Address City/[facility] Co de Phone Number JEFF BRODERICK [address] [facility] [place] [address] * (ABNORMAL) POCT glucose (12/20/2024 7:31 AM CDT) Glucose, POC 209(H) 70 - 199 mg/dL POC Performer [id number] JEFF Blood 12/20/2024 7:31 AM CDT 12/20/2024 7:31 AM CDT Theresa Lamb MD LAB POCT ORDERABLES - DEVICE Final Result Performing Organization Address City/[facility] Co de Phone Number JEFF BRODERICK [address] Department [place] [address] * eGFR (12/20/2024 7:13 AM CDT) eGFR [...] BLOOD ORDERABLES Final Result Performing Organization Address City/[facility]/ZIP Co de Phone Number JEFF BRODERICK [address] Department of [employer] [place], [place] [id number] * (ABNORMAL) CBC without differential (12/20/2024 7:13 AM CDT) WBC 14.20(H) 3.80 - 9.90 K/cumm Hgb 11.5(L) 13.0 - 17.5 g/dL [facility] Hct 35.4(L) 38.9 - 50.3 % [facility] Plt 291 150 - 400 K/cumm [facility] MPV 8.9(L) 9.1 - 12.3 fL [facility] RBC 4.06(L) 4.30 - 5.80 M/cumm [facility] MCV 87.2 81.3 - 96.4 fL [facility] MCH 28.3 27.1 - 33.3 pg [facility] MCHC 32.5 32.3 - 35.7 g/dL [facility] RDW CV 13.5 11.1 - 14.9 % [facility] RDW SD 42.6 35.7 - 48.1 fL [facility] NRBC abs 0.00 0.00 - 0.01 K/cumm [facility] Blood 12/20/2024 7:13 AM CDT 12/20/2024 7:37 AM CDT Jose Vega NP LAB BLOOD ORDERABLES Final Result [facility] [address] Department [place] [address] * (ABNORMAL) Basic metabolic panel (12/20/2024 7:13 AM CDT) Sodium 141 135 - 145 mmol/L Potassium, pl 3.5 3.3 - 4.9 mmol/L [facility] Chloride 100 97 - 110 mmol/L [facility] CO2 28 22 - 32 mmol/L [facility] Anion gap 13 2 - 15 mmol/L [facility] BUN 29(H) 6 - 25 mg/dL [facility] Creatinine 0.91 0.80 - 1.30 mg/dL [facility] Glucose 202(H) 70 - 199 mg/dL [facility] Comment: Interpretive Data Fasting glucose >/= 126 [...] NP LAB BLOOD ORDERABLES Final Result JEFF [address] Department [place] [address] * XR Chest 1 View (12/20/2024 5:57 [...] signed by: Ashlee Page M.D. Jose Vega TOOL ADJUSTER IMG XR PROCEDURES Final Res ult * (ABNORMAL) POCT glucose (12/20/2024 3:04 AM CDT) Glucose, POC 225(H) 70 - 199 mg/dL POC Performer [id number] [facility] Blood 12/20/2024 3:04 AM CDT 12/20/2024 3:04 AM CDT Theresa Lamb MD LAB POCT ORDERABLES - DEVICE Final Result Performing Organization Address City/[facility]/ZIP Co de Phone Number JEFF BRODERICK [address] [facility] [employer] [place], [place] [id number] * (ABNORMAL) POCT glucose (12/19/2024 8:49 PM CDT) Glucose, POC 328(H) 70 - 199 mg/dL POC Performer [id number] [facility] Blood 12/19/2024 8:49 PM CDT 12/19/2024 8:49 PM CDT Theresa Lamb MD LAB POCT ORDERABLES - DEVICE Final Result Performing Organization Address [facility] Co de Phone Number JEFF BRODERICK [address] [facility] [place] [address] * (ABNORMAL) POCT glucose (12/19/2024 5:09 PM CDT) Glucose, POC 230(H) 70 - 199 mg/dL POC Performer [id number] [facility] Blood 12/19/2024 5:09 PM CDT 12/19/2024 5:09 PM CDT Theresa Lamb MD LAB POCT ORDERABLES - DEVICE Final Result Performing Organization Address City/[facility]/ZIP Co de Phone Number JEFF BRODERICK [address] [address] [facility] [employer] [place], [place] [id number] * (ABNORMAL) POCT glucose (12/19/2024 12:37 PM CDT) Glucose, POC 279(H) 70 - 199 mg/dL POC Performer [id number] [facility] Blood 12/19/2024 12:3 7 PM CDT 12/19/2024 12:37 PM CDT Theresa Lamb MD LAB POCT ORDERABLES - DEVICE Final Result Performing Organization Address [facility] Co de Phone Number JEFF BRODERICK [address] [place] [address] * POCT glucose (12/19/2024 7:56 AM CDT) Glucose, POC 195 70 - 199 mg/dL POC Performer [id number] [facility] Blood 12/19/2024 7:56 AM CDT 12/19/2024 7:56 AM CDT Theresa Lamb MD LAB POCT ORDERABLES - DEVICE Final Result Performing Organization Address [facility] Phone Number JEFF BRODERICK [address] [place] [address] * XR Chest 1 View (12/19/2024 6:35 [...] LAB BLOOD ORDERABLES Final Result JEFF BRODERICK [address] [place] [address] * (ABNORMAL) aPTT (12/19/2024 5:44 AM CDT) aPTT 26(L) 28 - 38 sec Comment: Interpretive Data Heparin therapeutic range: 66.0 - 100.0 seconds. Range based on correlation with therapeutic heparin activity range of 0.3 - 0.7 Units/mL. Current interpretive data was last revised on 2023. Blood 12/19/2024 5:44 AM CDT 12/19/2024 6:14 AM CDT Jose Vega TOOL ADJUSTER LAB BLOOD ORDERABLES Final Result Performing Organization Address [facility] Phone Number JEFF BRODERICK [address] [facility] [place] [address] * Protime-INR (12/19/2024 5:44 AM CDT) PT [...] BLOOD ORDERABLES Final Result Performing Organization Address [facility] Co de Phone Number JEFF BRODERICK [address] [facility] [place], [place] [address] * (ABNORMAL) CBC without differential (12/19/2024 5:44 AM CDT) WBC 11.54(H) 3.80 - 9.90 K/cumm Hgb 11.5(L) 13.0 - 17.5 g/dL [facility] Hct 34.1(L) 38.9 - 50.3 % [facility] CH Plt 239 150 - 400 K/cumm [facility] MPV 8.9(L) 9.1 - 12.3 fL [facility] RBC 4.00(L) 4.30 - 5.80 M/cumm [facility] MCV 85.3 81.3 - 96.4 fL [facility] MCH 28.8 27.1 - 33.3 pg [facility] MCHC 33.7 32.3 - 35.7 g/dL [facility] CH RDW CV 13.4 11.1 - 14.9 % [facility] CH RDW SD 41.9 35.7 - 48.1 fL [facility] NRBC abs 0.00 0.00 - 0.01 K/cumm [facility] Blood 12/19/2024 5:44 AM CDT 12/19/2024 6:20 AM CDT us Jose Vega NP LAB BLOOD ORDERABLES Final Result [facility] [address] Department [place] [address] * (ABNORMAL) Basic metabolic panel (12/19/2024 5:44 AM CDT) Sodium 139 135 - 145 mmol/L Potassium, pl 3.3 3.3 - 4.9 mmol/L [facility] Chloride 99 97 - 110 mmol/L [facility] CO2 26 22 - 32 mmol/L [facility] Anion gap 14 2 - 15 mmol/L [facility] BUN 26(H) 6 - 25 mg/dL [facility] Creatinine 0.82 0.80 - 1.30 mg/dL [facility] Glucose 179 70 - 199 mg/dL [facility] Comment: Interpretive Data Fasting glucose >/= 126 [...] 12/19/2024 6:14 AM CDT us Jose Vega TOOL ADJUSTER LAB BLOOD ORDERABLES Final Result Performing Organization Address [facility] Co de Phone Number JEFF [address] [place] [address] * POCT glucose (12/18/2024 8:41 PM CDT) Glucose, POC 135 70 - 199 mg/dL POC Performer [id number] [facility] Blood 12/18/2024 8:41 PM CDT 12/18/2024 8:41 PM CDT Theresa Lamb MD LAB POCT ORDERABLES - DEVICE Final Result Performing Organization Address [facility] Co de Phone Number JEFF BRODERICK [address] [place] [address] * (ABNORMAL) POCT glucose (12/18/2024 5:14 PM CDT) Glucose, POC 281(H) 70 - 199 mg/dL POC Performer [id number] [facility] Blood 12/18/2024 5:14 PM CDT 12/18/2024 5:14 PM CDT Theresa Lamb MD LAB POCT ORDERABLES - DEVICE Final Result Performing Organization Address [facility] Co de Phone Number JEFF [address] [place] [address] * TRANSTHORACIC ECHO (TTE) LIMITED/FOLLOW UP W LTD DOPPLER/CF W CONTRAST (12/18/2024 1:45 PM CDT) LV EF 70 % CONS SCIMAGE Anatomical Region Laterality Modality Ultrasound 12/18/2024 1:07 PM CDT Narrative 12/18/2024 3:51 PM CDT [place] [id number] Limited Echocardiogram Report Patient Name: SHAWN SHULTZ BRIAN : 1950 Study Date: 12/18/2024 1:07:07 PM Gender: M Tech: JELANI Location: [id number] Ref Provider: NATALI WEBSTER Height(Cm): 168 BSA: [...] Procedure Note Ada Jaquez MD - 12/18/2024 [place] [address] Limited Echocardiogram Report Patient Name: SAHWN SHULTZ BRIAN : 1950 Study Date: 12/18/2024 1:07:07 PM Gender: M Tech: Location: [id number] Ref Provider: NATALI WEBSTER Height(Cm): 168 BSA: [...] no significant pericardial effusion. Electronically Signed By: eJrad Jaquez MD 12/18/2024 3:50:43 PM CDT Natali Webster DO CV ECHO PROCEDURES Final Result * (ABNORMAL) POCT glucose (12/18/2024 12:42 PM CDT) Glucose, POC 289(H) 70 - 199 mg/dL POC Performer [id number] [facility] Blood 12/18/2024 12:4 2 PM CDT 12/18/2024 12:42 PM CDT Theresa Lamb MD LAB POCT ORDERABLES - DEVICE Final Result JEFF [address] [facility] [place] [address] * POCT glucose (12/18/2024 8:01 AM CDT) Glucose, POC 169 70 - 199 mg/dL POC Performer [id number] [facility] Blood 12/18/2024 8:01 AM CDT 12/18/2024 8:01 AM CDT us Theresa Lamb MD LAB POCT ORDERABLES - DEVICE Final Result JEFF BRODERICK [address] [facility] [place] [address] * XR Chest PA Lateral 2 Views [...] Corey Limon II, D.O. us Jose Vega TOOL ADJUSTER IMG XR PROCEDURES Final Res ult * ECG 12 lead (12/18/2024 7:22 AM CDT) 12/18/2024 7:22 AM CDT Narrative [facility] - 12/18/2024 9:03 AM CDT Vent Rate: 85 bpm RR Interval: 703 msec SC Interval: 200 msec QRS Duration: 112 msec QT Interval: 414 msec QTC Interval: 456 msec P-R-T [place]: 9 - 47 - 51 degrees IMPRESSION: SINUS RHYTHM INFERIOR MYOCARDIAL INFARCTION , OF INDETERMINATE AGE [40+ ms Q WAVE AND/OR ST/T ABNORMALITY IN II/aVF] ABNORMAL ECG Electronically Signed By: Jerad Jaquez MD us Theresa Lamb MD ECG ORDERABLES Final Result [facility] * eGFR (12/18/2024 5:56 AM CDT) eGFR [...] LAB BLOOD ORDERABLES Final Result JEFF BRODERICK [address] Department [place] [address] * (ABNORMAL) CBC without differential (12/18/2024 5:56 AM CDT) WBC 12.01(H) 3.80 - 9.90 K/cumm Hgb 11.4(L) 13.0 - 17.5 g/dL [facility] Hct 33.9(L) 38.9 - 50.3 % [facility] Plt 202 150 - 400 K/cumm [facility] MPV 9.1 9.1 - 12.3 fL [facility] RBC 3.91(L) 4.30 - 5.80 M/cumm [facility] MCV 86.7 81.3 - 96.4 fL [facility] MCH 29.2 27.1 - 33.3 pg [facility] MCHC 33.6 32.3 - 35.7 g/dL [facility] RDW CV 13.8 11.1 - 14.9 % [facility] RDW SD 43.5 35.7 - 48.1 fL [facility] NRBC abs 0.00 0.00 - 0.01 K/cumm [facility] Blood 12/18/2024 5:56 AM CDT 12/18/2024 6:01 AM CDT Jose Vega NP LAB BLOOD ORDERABLES Final Result [facility] [address] [place] [address] * (ABNORMAL) Hemoglobin A1c (12/18/2024 5:56 AM CDT) Pathologist [facility] Hgb A1C 7.4(H) 4.0 - 5.6 % Estimated Average Glucose 166 mg/dL [facility] Comment: The ADA recommends reporting an estimated Average Glucose (eAG) with all Hemoglobin A1c results using the equation derived from a study of 507 normal and diabetic adults. Minority populations were underrepresented and children were not included. (Diabetes Care 31:1856-2264, 2008). The eAG is not equivalent to a fasting glucose. Blood 12/18/2024 5:56 AM CDT 12/18/2024 6:01 AM CDT Jose Vega NP LAB BLOOD ORDERABLES Final Result JEFF BRODERICK [address] Department [place] [address] * (ABNORMAL) Basic metabolic panel (12/18/2024 5:56 AM CDT) Sodium 139 135 - 145 mmol/L Potassium, pl 3.6 3.3 - 4.9 mmol/L [facility] Chloride 101 97 - 110 mmol/L [facility] CO2 26 22 - 32 mmol/L [facility] Anion gap 12 2 - 15 mmol/L [facility] BUN 25 6 - 25 mg/dL [facility] Creatinine 0.75(L) 0.80 - 1.30 mg/dL [facility] Glucose 138 70 - 199 mg/dL [facility] Comment: Interpretive Data Fasting glucose >/= 126 [...] 2022. Calcium 9.3 8.5 - 10.3 mg/dL [facility] Blood 12/18/2024 5:56 AM CDT 12/18/2024 6:01 AM CDT Jose Vega NP LAB BLOOD ORDERABLES Final Result JEFF BRODERICK [address] Department [place] [address] * POCT glucose (12/18/2024 4:11 AM CDT) Glucose, POC 177 70 - 199 mg/dL POC Performer [id number] [facility] Blood 12/18/2024 4:11 AM CDT 12/18/2024 4:11 AM CDT Theresa Lamb MD LAB POCT ORDERABLES - DEVICE Final Result Performing Organization Address [facility] de Phone Number JEFF BRODERICK [address] [address] [facility] [place] [address] * POCT glucose (12/17/2024 8:11 PM CDT) Glucose, POC 189 70 - 199 mg/dL POC Performer [id number] [facility] Blood 12/17/2024 8:11 PM CDT 12/17/2024 8:11 PM CDT Theresa Lamb MD LAB POCT ORDERABLES - DEVICE Final Result Performing Organization Address [facility] de Phone Number JEFF BRODERICK [address] [address] [facility] [place] [address] * POCT glucose (12/17/2024 5:49 PM CDT) Glucose, POC 179 70 - 199 mg/dL POC Performer [id number] [facility] Blood 12/17/2024 5:49 PM CDT 12/17/2024 5:49 PM CDT Theresa Lamb MD LAB POCT ORDERABLES - DEVICE Final Result Performing Organization Address [facility] de Phone Number JEFF BRODERICK [address] [address] [facility] [place] [address] * (ABNORMAL) POCT glucose (12/17/2024 1:05 PM CDT) Glucose, POC 251(H) 70 - 199 mg/dL POC Performer [id number] [facility] Blood 12/17/2024 1:05 PM CDT 12/17/2024 1:05 PM CDT Theresa Lamb MD LAB POCT ORDERABLES - DEVICE Final Result Performing Organization Address City/[facility] Co de Phone Number JEFF BRODERICK [address] [place] [address] * POCT glucose (12/17/2024 8:06 AM CDT) [facility] Signature Glucose, POC 139 70 - 199 mg/dL POC Performer [id number] [facility] Blood 12/17/2024 8:06 AM CDT 12/17/2024 8:06 AM CDT Theresa Lamb MD LAB POCT ORDERABLES - DEVICE Final Result Performing Organization Address [facility] de Phone Number JEFF BRODERICK [address] [place] [address] * XR Chest 1 View - in [...] in place. The tip of a retracted Viper-Gurpreet catheter is in the superior vena cava. [...] in place. The tip of a retracted Viper-Gurpreet catheter is in the superior vena cava. [...] LAB BLOOD ORDERABLES Final Result JEFF BRODERICK [address] Department [place] [address] * (ABNORMAL) CBC without differential (12/17/2024 6:02 AM CDT) WBC 10.37(H) 3.80 - 9.90 K/cumm Hgb 9.6(L) 13.0 - 17.5 g/dL [facility] Hct 29.1(L) 38.9 - 50.3 % [facility] Plt 135(L) 150 - 400 K/cumm [facility] MPV 9.2 9.1 - 12.3 fL [facility] RBC 3.33(L) 4.30 - 5.80 M/cumm [facility] MCV 87.4 81.3 - 96.4 fL [facility] MCH 28.8 27.1 - 33.3 pg [facility] MCHC 33.0 32.3 - 35.7 g/dL [facility] RDW CV 14.0 11.1 - 14.9 % [facility] RDW SD 44.2 35.7 - 48.1 fL [facility] NRBC abs 0.00 0.00 - 0.01 K/cumm [facility] Blood 12/17/2024 6:02 AM CDT 12/17/2024 6:25 AM CDT Jose Vega TOOL ADJUSTER LAB BLOOD ORDERABLES Final Result JEFF [address] [place] [address] * (ABNORMAL) Phosphorus (12/17/2024 6:02 AM CDT) Phosphorus, pl 1.8(L) 2.3 - 4.5 mg/dL Blood 12/17/2024 6:02 AM CDT 12/17/2024 6:23 AM CDT Fran Mcgrath TOOL ADJUSTER LAB BLOOD ORDERABLES Fin al Result [facility] [address] Department of [facility] [place], [place] [id number] * Magnesium (12/17/2024 6:02 AM CDT) Magnesium 2.2 1.4 - 2.5 mg/dL Blood 12/17/2024 6:02 AM CDT 12/17/2024 6:23 AM CDT Jose Vega NP LAB BLOOD ORDERABLES Final Result JEFF BRODERICK [address] Department [place] [address] * (ABNORMAL) Basic metabolic panel (12/17/2024 6:02 AM CDT) Pathologist [facility] Sodium 139 135 - 145 mmol/L Potassium, pl 3.4 3.3 - 4.9 mmol/L [facility] Chloride 105 97 - 110 mmol/L [facility] CO2 22 22 - 32 mmol/L [facility] Anion gap 12 2 - 15 mmol/L [facility] BUN 28(H) 6 - 25 mg/dL [facility] Creatinine 0.80 0.80 - 1.30 mg/dL [facility] Glucose 152 70 - 199 mg/dL [facility] Comment: Interpretive Data Fasting glucose >/= 126 [...] 2022. Calcium 8.4(L) 8.5 - 10.3 mg/dL [facility] Blood 12/17/2024 6:02 AM CDT 12/17/2024 6:23 AM CDT us Jose Vega NP LAB BLOOD ORDERABLES Final Result JEFF BRODERICK [address] Department [place] [address] * POCT glucose (12/17/2024 2:48 AM CDT) Glucose, POC 146 70 - 199 mg/dL POC Performer [id number] [facility] Blood 12/17/2024 2:48 AM CDT 12/17/2024 2:48 AM CDT Theresa Lamb MD LAB POCT ORDERABLES - DEVICE Final Result Performing Organization Address [facility] de Phone Number JEFF [address] [place] [address] * (ABNORMAL) POCT glucose (12/16/2024 8:28 PM CDT) Glucose, POC 226(H) 70 - 199 mg/dL POC Performer [id number] [facility] Blood 12/16/2024 8:28 PM CDT 12/16/2024 8:28 PM CDT Theresa Lamb MD LAB POCT ORDERABLES - DEVICE Final Result Performing Organization Address [facility] de Phone Number JEFF BRODERICK [address] [address] [facility] [place] [address] * (ABNORMAL) POCT glucose (12/16/2024 4:36 PM CDT) Glucose, POC 269(H) 70 - 199 mg/dL POC Performer [id number] [facility] Blood 12/16/2024 4:36 PM CDT 12/16/2024 4:36 PM CDT Theresa Lamb MD LAB POCT ORDERABLES - DEVICE Final Result Performing Organization Address [facility] de Phone Number JEFF BRODERICK [address] [facility] [place] [address] * (ABNORMAL) POCT glucose (12/16/2024 11:54 AM CDT) Glucose, POC 237(H) 70 - 199 mg/dL POC Performer [id number] [facility] Blood 12/16/2024 11:5 4 AM CDT 12/16/2024 11:54 AM CDT us Theresa Lamb MD LAB POCT ORDERABLES - DEVICE Final Result Performing Organization Address [facility] Phone Number JEFF [address] [facility] Department [place] [address] * Critical Care (12/16/2024 8:03 AM CDT) [...] with the patient's team and other medical/business analyst consultant staff. This time was in addition [...] in the medical record us Lesly Rossi TOOL ADJUSTER IN CLINIC/BEDSIDE ORDERABLES Final Result * POCT glucose (12/16/2024 8:02 AM CDT) [facility] Glucose, POC 156 70 - 199 mg/dL POC Performer [id number] [facility] Blood 12/16/2024 8:02 AM CDT 12/16/2024 8:02 AM CDT us Theresa Lamb MD LAB [place]CT ORDER[place] [address] [address] Department [place] [address] * XR Chest 1 View - in [...] the chest. FINDINGS: The tip of the Viper-Gurpreet catheter is in the undivided main pulmonary [...] the chest. FINDINGS: The tip of the Viper-Gurpreet catheter is in the undivided main pulmonary artery. Left thoracostomy tube and mediastinal drain in place. Cardiomegaly with aortic atherosclerosis. No failure. Right basal subsegmental atelectasis with the remainder of the lungs being clear. IMPRESSION: Findings as described above. Electronically signed by: Zenon Wing M.D. us Jose Vega TOOL ADJUSTER IMG XR PROCEDURES Final Res ult * Oxyhemoglobin, pulmonary artery (12/16/2024 4:37 AM CDT) Oxyhemoglobin, PA 62.0 % Comment: Interpretive Data No reference range established. Current interpretive data was last revised 2019. Blood 12/16/2024 4:37 AM CDT 12/16/2024 4:40 AM CDT Fran Mcgrath TOOL ADJUSTER LAB BLOOD ORDERABLES Fin al Result Performing Organization Address [facility] Co de Phone Number JEFF [address] [place] [address] * (ABNORMAL) Blood gas, pulmonary artery (12/16/2024 [...] CDT 12/16/2024 4:40 AM CDT Jose Vega TOOL ADJUSTER LAB BLOOD ORDERABLES Final Result Performing Organization Address [facility]/ZIP Co de Phone Number JEFF [address] [place] [address] * eGFR (12/16/2024 4:37 AM CDT) eGFR [...] Vega NP LAB BLOOD ORDERABLES Final Result [facility] [address] [place] [address] * (ABNORMAL) CBC without differential (12/16/2024 4:37 AM CDT) WBC 12.90(H) 3.80 - 9.90 K/cumm Hgb 9.1(L) 13.0 - 17.5 g/dL [facility] Hct 28.0(L) 38.9 - 50.3 % [facility] Plt 99(L) 150 - 400 K/cumm [facility] MPV 9.1 9.1 - 12.3 fL [facility] RBC 3.21(L) 4.30 - 5.80 M/cumm [facility] MCV 87.2 81.3 - 96.4 fL [facility] MCH 28.3 27.1 - 33.3 pg [facility] MCHC 32.5 32.3 - 35.7 g/dL [facility] RDW CV 14.0 11.1 - 14.9 % [facility] RDW SD 44.1 35.7 - 48.1 fL [facility] NRBC abs 0.00 0.00 - 0.01 K/cumm [facility] Blood 12/16/2024 4:37 AM CDT 12/16/2024 4:41 AM CDT Jose Vega TOOL ADJUSTER LAB BLOOD ORDERABLES Final Result Performing Organization Address City/[facility] Co de Phone Number JEFF [address] [place] [address] * Phosphorus (12/16/2024 4:37 AM CDT) Pathologist [facility] Phosphorus, pl 2.3 2.3 - 4.5 mg/dL Blood 12/16/2024 4:37 AM CDT 12/16/2024 4:40 AM CDT Fran Mcgrath TOOL ADJUSTER LAB BLOOD ORDERABLES Fin al Result Performing Organization Address [facility] Co de Phone Number [facility] [address] [place] [address] * Magnesium (12/16/2024 4:37 AM CDT) Pathologist [facility] Magnesium 2.1 1.4 - 2.5 mg/dL Blood 12/16/2024 4:37 AM CDT 12/16/2024 4:40 AM CDT Jose Vega TOOL ADJUSTER LAB BLOOD ORDERABLES Final Result Performing Organization Address [facility] Co de Phone Number [facility] [address] [address] [facility] [place] [address] * Basic metabolic panel (12/16/2024 4:37 AM CDT) Pathologist [facility] Sodium 139 135 - 145 mmol/L Potassium, pl 3.5 3.3 - 4.9 mmol/L [facility] Chloride 107 97 - 110 mmol/L [facility] CO2 22 22 - 32 mmol/L [facility] Anion gap 10 2 - 15 mmol/L [facility] BUN 25 6 - 25 mg/dL [facility] Creatinine 0.81 0.80 - 1.30 mg/dL [facility] Glucose 132 70 - 199 mg/dL [facility] Comment: Interpretive Data Fasting glucose >/= 126 [...] 2022. Calcium 8.6 8.5 - 10.3 mg/dL [facility] Blood 12/16/2024 4:37 AM CDT 12/16/2024 4:40 AM CDT us Jose Vega NP LAB BLOOD ORDERABLES Final Result Performing Organization Address City/[facility]/ZIP Co de Phone Number JEFF BRODERICK [address] [place] [address] * POCT glucose (12/16/2024 2:04 AM CDT) Glucose, POC 123 70 - 199 mg/dL POC Performer [id number] [facility] Blood 12/16/2024 2:04 AM CDT 12/16/2024 2:04 AM CDT us Theresa Lamb MD LAB POCT ORDERABLES - DEVICE Final Result JEFF BRODERICK [address] [place] [address] * POCT glucose (12/15/2024 11:03 PM CDT) Glucose, POC 98 70 - 199 mg/dL POC Performer [id number] [facility] Blood 12/15/2024 11:0 3 PM CDT 12/15/2024 11:03 PM CDT Theresa Lamb MD LAB POCT ORDERABLES - DEVICE Final Result Performing Organization Address [facility] Co de Phone Number JEFF [address] [place] [address] * POCT glucose (12/15/2024 9:59 PM CDT) Glucose, POC 102 70 - 199 mg/dL POC Performer [id number] [facility] Blood 12/15/2024 9:59 PM CDT 12/15/2024 9:59 PM CDT Theresa Lamb MD LAB POCT ORDERABLES - DEVICE Final Result Performing Organization Address [facility] Co de Phone Number JEFF [address] [place] [address] * Critical Care (12/15/2024 9:01 PM CDT) [...] with the patient's team and other medical/business analyst consultant staff. This time was in addition to and separate from care provided by other practitioners on this day of service. Heri Tovar NP IN CLINIC/BEDSIDE ORDER BEATRIZ Final Result * POCT glucose (12/15/2024 8:53 PM CDT) Glucose, POC 105 70 - 199 mg/dL POC Performer [id number] [facility] Blood 12/15/2024 8:53 PM CDT 12/15/2024 8:53 PM CDT Theresa Lamb MD LAB POCT ORDERABLES - DEVICE Final Result Performing Organization Address City/[facility] Co de Phone Number JEFF BRODERICK [address] [address] [facility] [place], [place] [address] * POCT glucose (12/15/2024 7:53 PM CDT) Glucose, POC 129 70 - 199 mg/dL POC Performer [id number] [facility] Blood 12/15/2024 7:53 PM CDT 12/15/2024 7:53 PM CDT Theresa Lamb MD LAB POCT ORDERABLES - DEVICE Final Result Performing Organization Address [facility] Co de Phone Number JEFF BRODERICK [address] [address] [facility] [place] [address] * POCT glucose (12/15/2024 6:48 PM CDT) Glucose, POC 157 70 - 199 mg/dL POC Performer [id number] [facility] Blood 12/15/2024 6:48 PM CDT 12/15/2024 6:48 PM CDT Theresa Lamb MD LAB POCT ORDERABLES - DEVICE Final Result Performing Organization Address [facility] Co de Phone Number JEFF BRODERICK [address] [address] [facility] [place], [place] [id number] * (ABNORMAL) POCT glucose (12/15/2024 5:50 PM CDT) Glucose, POC 210(H) 70 - 199 mg/dL POC Performer [id number] [facility] Blood 12/15/2024 5:50 PM CDT 12/15/2024 5:50 PM CDT Theresa Lamb MD LAB POCT ORDERABLES - DEVICE Final Result Performing Organization Address [facility] Co de Phone Number JEFF BRODERICK [address] [address] [facility] [place] [address] * POCT glucose (12/15/2024 4:49 PM CDT) Glucose, POC 141 70 - 199 mg/dL POC Performer [id number] [facility] Blood 12/15/2024 4:49 PM CDT 12/15/2024 4:49 PM CDT Theresa Lamb MD LAB POCT ORDERABLES - DEVICE Final Result Performing Organization Address [facility] Co de Phone Number JEFF BRODERICK [address] [address] [facility] [place] [address] * POCT glucose (12/15/2024 3:50 PM CDT) Glucose, POC 130 70 - 199 mg/dL POC Performer [id number] [facility] Blood 12/15/2024 3:50 PM CDT 12/15/2024 3:50 PM CDT Theresa Lamb MD LAB POCT ORDERABLES - DEVICE Final Result Performing Organization Address City/[facility] Co de Phone Number JEFF BRODERICK [address] [address] [facility] [place] [address] * POCT glucose (12/15/2024 2:52 PM CDT) Glucose, POC 130 70 - 199 mg/dL POC Performer [id number] [facility] Blood 12/15/2024 2:52 PM CDT 12/15/2024 2:52 PM CDT Theresa Lamb MD LAB POCT ORDERABLES - DEVICE Final Result JEFF BRODERICK [address] [facility] [place] [address] * Critical Care (12/15/2024 1:57 PM CDT) [...] with the ICU team and other medical/business analyst consultant staff, making frequent assessments and decisions [...] * POCT glucose (12/15/2024 1:49 PM CDT) [facility] Glucose, POC 133 70 - 199 mg/dL POC Performer [id number] JEFF BRODERICK Blood 12/15/2024 1:49 PM CDT 12/15/2024 1:49 PM CDT Theresa Lamb MD LAB POCT ORDERABLES - DEVICE Final Result Performing Organization Address City/[facility]/ZIP Co de Phone Number JEFF BRODERICK [address] [address] [facility] [place] [address] * POCT glucose (12/15/2024 12:26 PM CDT) Glucose, POC 138 70 - 199 mg/dL POC Performer [id number] [facility] Blood 12/15/2024 12:2 6 PM CDT 12/15/2024 12:26 PM CDT Theresa Lamb MD LAB POCT ORDERABLES - DEVICE Final Result Performing Organization Address [facility] Co de Phone Number JEFF BRODERICK [address] [address] [facility] [place] [address] * POCT glucose (12/15/2024 11:28 AM CDT) Glucose, POC 144 70 - 199 mg/dL POC Performer [id number] CERNER CH Blood 12/15/2024 11:2 8 AM CDT 12/15/2024 11:28 AM CDT Theresa Lamb MD LAB POCT ORDERABLES - DEVICE Final Result Performing Organization Address [facility] Co de Phone Number JEFF DAVIE [address] [place] [address] * POCT glucose (12/15/2024 10:32 AM CDT) Glucose, POC 144 70 - 199 mg/dL POC Performer [id number] CERNER [facility] Blood 12/15/2024 10:3 2 AM CDT 12/15/2024 10:32 AM CDT Theresa Lamb MD LAB POCT ORDERABLES - DEVICE Final Result Performing Organization Address City/[facility] Co de Phone Number SAMANTHAROGER BRODERICK [address] [address] [facility] [place] [address] * POCT glucose (12/15/2024 8:34 AM CDT) Glucose, POC 137 70 - 199 mg/dL POC Performer [id number] JEFF Blood 12/15/2024 8:34 AM CDT 12/15/2024 8:34 AM CDT Theresa Lamb MD LAB POCT ORDERABLES - DEVICE Final Result Performing Organization Address [facility] de Phone Number JEFF [address] [address] [facility] [place] [address] * ECG 12 lead (12/15/2024 7:15 AM CDT) 12/15/2024 7:15 AM CDT Narrative [facility] - 12/15/2024 9:57 AM CDT Vent Rate: 85 bpm RR Interval: 704 msec SC Interval: 199 msec QRS Duration: 102 msec QT Interval: 372 msec QTC Interval: 414 msec P-R-T [place]: 7 - 48 - 47 degrees IMPRESSION: SINUS RHYTHM POSSIBLE RIGHT VENTRICULAR CONDUCTION DELAY [RSR (QR) IN V1/V2] ABNORMAL ECG Electronically Signed By: Jerad Jaquez MD Theresa Lamb MD ECG ORDERABLES Final Result Performing Organization Address [facility] Co de Phone Number [facility] * POCT glucose (12/15/2024 6:16 AM CDT) Glucose, POC 140 70 - 199 mg/dL POC Performer [id number] JEFF Blood 12/15/2024 6:16 AM CDT 12/15/2024 6:16 AM CDT Theresa Lamb MD LAB POCT ORDERABLES - DEVICE Final Result Performing Organization Address City/[facility]/ZIP Co de Phone Number ASMANTHAROGER BRODERICK [address] [address] [facility] [place] [address] * XR Chest 1 View - in [...] has been removed. The tip of the Viper-Gurpreet catheter is in the undivided main pulmonary [...] has been removed. The tip of the Viper-Gurpreet catheter is in the undivided main pulmonary artery. Left thoracostomy tube and mediastinal drain in place. Right basal subsegmental atelectasis with the remainder of the lungs being clear. Cardiomegaly with no failure. IMPRESSION: Findings as described above. Electronically signed by: Zenon Wing M.D. us Jose Vega TOOL ADJUSTER IMG XR PROCEDURES Final Res ult * POCT glucose (12/15/2024 5:16 AM CDT) Glucose, POC 107 70 - 199 mg/dL POC Performer [id number] JEFF Blood 12/15/2024 5:16 AM CDT 12/15/2024 5:16 AM CDT Theresa Lamb MD LAB POCT ORDERABLES - DEVICE Final Result Performing Organization Address [facility] Co de Phone Number JEFF BRODERICK [address] [address] [facility] [place] [address] * POCT glucose (12/15/2024 4:20 AM CDT) Pathologist [facility] Glucose, POC 99 70 - 199 mg/dL POC Performer [id number] [facility] Blood 12/15/2024 4:20 AM CDT 12/15/2024 4:20 AM CDT Theresa Lamb MD LAB POCT ORDERABLES - DEVICE Final Result Performing Organization Address [facility] de Phone Number JEFF BRODERICK [address] [address] [place] [address] * (ABNORMAL) CBC without differential (12/15/2024 3:34 AM CDT) [facility] WBC 10.84(H) 3.80 - 9.90 K/cumm Hgb 10.2(L) 13.0 - 17.5 g/dL [facility] Hct 31.1(L) 38.9 - 50.3 % [facility] Plt 122(L) 150 - 400 K/cumm [facility] MPV 8.8(L) 9.1 - 12.3 fL [facility] RBC 3.59(L) 4.30 - 5.80 M/cumm [facility] MCV 86.6 81.3 - 96.4 fL [facility] MCH 28.4 27.1 - 33.3 pg [facility] MCHC 32.8 32.3 - 35.7 g/dL [facility] RDW CV 13.6 11.1 - 14.9 % [facility] RDW SD 42.3 35.7 - 48.1 fL [facility] NRBC abs 0.00 0.00 - 0.01 K/cumm [facility] Blood 12/15/2024 3:34 AM CDT 12/15/2024 3:34 AM CDT Jose Vega TOOL ADJUSTER LAB BLOOD ORDERABLES Final Result Performing Organization Address [facility] de Phone Number JEFF [address] [address] [facility] [place] [address] * POCT glucose (12/15/2024 3:14 AM CDT) Glucose, POC 108 70 - 199 mg/dL POC Performer [id number] [facility] Blood 12/15/2024 3:14 AM CDT 12/15/2024 3:14 AM CDT Theresa Lamb MD LAB POCT ORDERABLES - DEVICE Final Result Performing Organization Address [facility] de Phone Number JEFF [address] [address] [place] [address] * Oxyhemoglobin, pulmonary artery (12/15/2024 2:46 AM CDT) Oxyhemoglobin, PA 66.1 % Comment: Interpretive Data No reference range established. Current interpretive data was last revised 2019. Blood 12/15/2024 2:46 AM CDT 12/15/2024 3:30 AM CDT Fran Mcgrath TOOL ADJUSTER LAB BLOOD ORDERABLES Fin al Result Performing Organization Address [facility] Co de Phone Number JEFF [address] [address] [place] [address] * (ABNORMAL) Blood gas, pulmonary artery (12/15/2024 2:46 AM CDT) pH, PA 7.38 Comment: Interpretive Data No reference range established. Current interpretive data was last revised 2019. pCO2, PA 43 mmHg JEFF Comment: Interpretive Data No reference range established. Current interpretive data was last revised 2019. pO2, PA 37(C) mmHg [facility] Comment: Critical result called to and read back by Tiffany Byers on 12/15/2024 03:34:54 CDT to Marcin Bunch. Interpretive Data No reference range established. Current interpretive data was last revised 2019. HCO3, PA (Calculated) 24 mmol/L JEFF Comment: Interpretive Data No reference range established. Current interpretive data was last revised 2019. Base excess PA 0 mmol/L [facility] Comment: Interpretive Data No reference range established. Current interpretive data was last revised 2019. O2 Sat, PA (Measured) 67 % JEFF Comment: Interpretive Data No reference range established. Current interpretive data was last revised 2019. Blood 12/15/2024 2:46 AM CDT 12/15/2024 3:30 AM CDT Jose Vega TOOL ADJUSTER LAB BLOOD ORDERABLES Final Result Performing Organization Address [facility] Co de Phone Number JEFF DAVIE [address] [address] Department [place] [address] * (ABNORMAL) Calcium, ionized, whole blood (12/15/2024 2:46 AM CDT) Pathologist [facility] Ca, ionized, bld 5.64(H) 4.50 - 5.10 mg/dL Blood 12/15/2024 2:46 AM CDT 12/15/2024 3:30 AM CDT Jose Vega TOOL ADJUSTER LAB BLOOD ORDERABLES Final Result Performing Organization Address City/[facility] Co de Phone Number SAMANTHAROGER [address] [address] Department [place] [address] * eGFR (12/15/2024 2:46 AM CDT) Pathologist [facility] eGFR >90 >=60 [...] CDT 12/15/2024 3:30 AM CDT Jose Vega TOOL ADJUSTER LAB BLOOD ORDERABLES Final Result Performing Organization Address [facility] Co de Phone Number SAMANTHAROGER [address] [address] Department [place] [address] * Phosphorus (12/15/2024 2:46 AM CDT) Phosphorus, pl 2.5 2.3 - 4.5 mg/dL Blood 12/15/2024 2:46 AM CDT 12/15/2024 3:30 AM CDT Fran Mcgrath TOOL ADJUSTER LAB BLOOD ORDERABLES Fin al Result Performing Organization Address [facility] [place] [address] [address] Department of [employer] [place], [place] [id number] * Magnesium (12/15/2024 2:46 AM CDT) Magnesium 2.2 1.4 - 2.5 mg/dL Blood 12/15/2024 2:46 AM CDT 12/15/2024 3:30 AM CDT Jose Vega TOOL ADJUSTER LAB BLOOD ORDERABLES Final Result JEFF BRODERICK [address] [address] [place] [address] * (ABNORMAL) Basic metabolic panel (12/15/2024 2:46 AM CDT) Sodium 144 135 - 145 mmol/L Potassium, pl 3.7 3.3 - 4.9 mmol/L [facility] Chloride 111(H) 97 - 110 mmol/L [facility] CO2 24 22 - 32 mmol/L [facility] Anion gap 9 2 - 15 mmol/L [facility] BUN 19 6 - 25 mg/dL [facility] Creatinine 0.76(L) 0.80 - 1.30 mg/dL [facility] Glucose 109 70 - 199 mg/dL [facility] Comment: Interpretive Data Fasting glucose >/= 126 [...] 2022. Calcium 9.8 8.5 - 10.3 mg/dL [facility] Blood 12/15/2024 2:46 AM CDT 12/15/2024 3:30 AM CDT Jose Vega TOOL ADJUSTER LAB BLOOD ORDERABLES Final Result JEFF BRODERICK [address] [address] Department [place] [address] * POCT glucose (12/15/2024 2:23 AM CDT) Glucose, POC 130 70 - 199 mg/dL POC Performer [id number] [facility] Blood 12/15/2024 2:23 AM CDT 12/15/2024 2:23 AM CDT Theresa Lamb MD LAB POCT ORDERABLES - DEVICE Final Result Performing Organization Address [facility] Co de Phone Number JEFF BRODERICK [address] [address] [facility] [place] [address] * POCT glucose (12/15/2024 12:59 AM CDT) Glucose, POC 136 70 - 199 mg/dL POC Performer [id number] C[facility] Blood 12/15/2024 12:5 9 AM CDT 12/15/2024 12:59 AM CDT Theresa Lamb MD LAB POCT ORDERABLES - DEVICE Final Result Performing Organization Address [facility] de Phone Number JEFF BRODERICK [address] [address] [place] [address] * POCT glucose (12/14/2024 11:53 PM CDT) Glucose, POC 168 70 - 199 mg/dL POC Performer [id number] C[facility]ER CH Blood 12/14/2024 11:5 3 PM CDT 12/14/2024 11:53 PM CDT Theresa Lamb MD LAB POCT ORDERABLES - DEVICE Final Result Performing Organization Address [facility] de Phone Number JEFF BRODERICK [address] [address] [place] [address] * (ABNORMAL) Blood gas, arterial (12/14/2024 11:50 [...] ORDERABLES Final R esult Performing Organization Address [facility] Co de Phone Number JEFF BRODERICK [address] [place] [address] * (ABNORMAL) CBC without differential [...] RDW CV 13.4 11.1 - 14.9 % [facility]NER RDW SD 41.5 35.7 - 48.1 fL [facility]NER NRBC abs 0.00 0.00 - 0.01 K/cumm [facility] Blood 12/14/2024 11:1 2 PM CDT 12/14/2024 11:12 PM CDT Theresa Lamb MD LAB BLOOD ORDERABLES Final R esult Performing Organization Address [facility]/ZIP Co de Phone Number JEFF BRODERICK [address] [place] [address] * POCT glucose (12/14/2024 11:03 PM CDT) Glucose, POC 145 70 - 199 mg/dL POC Performer [id number] JEFF Blood 12/14/2024 11:0 3 PM CDT 12/14/2024 11:03 PM CDT Theresa Lamb MD LAB POCT ORDERABLES - DEVICE Final Result Performing Organization Address City/[facility]/ZIP Co de Phone Number JEFF BRODERICK [address] [address] Department of [employer] [place], [place] [id number] * (ABNORMAL) Calcium, ionized, whole blood (12/14/2024 10:53 PM CDT) Pathologist [facility] Ca, ionized, bld 4.48(L) 4.50 - 5.10 mg/dL Blood 12/14/2024 10:5 3 PM CDT 12/14/2024 11:11 PM CDT us Theresa Lamb MD LAB BLOOD ORDERABLES Final R esult Performing Organization Address [facility] Co de Phone Number JEFF BRODERICK [address] [address] [employer] [place] [address] * eGFR (12/14/2024 10:53 PM CDT) Pathologist [facility] eGFR >90 [...] ORDERABLES Final R esult Performing Organization Address City/[facility] Co de Phone Number JEFF BRODERICK [address] [address] [place] [address] * Type and screen (12/14/2024 10:53 PM CDT) Pathologist [facility] Antonio, indirect Negative ABO Rh A Negative [facility] Blood 12/14/2024 10:5 3 PM CDT 12/14/2024 11:16 PM CDT Narrative [facility] - 12/15/2024 12:05 AM CDT Has the patient had Daratumumab or Isatuximab in the past 6 months?->Unknown Kristal Edward TOOL ADJUSTER LAB BLOOD BANK TEST ORDER BEATRIZ Final Result Performing Organization Address [facility] Co de Phone Number JEFF [address] [address] [place] [address] * Magnesium (12/14/2024 10:53 PM CDT) [facility] Magnesium 2.3 1.4 - 2.5 mg/dL Blood 12/14/2024 10:5 3 PM CDT 12/14/2024 11:11 PM CDT Theresa Lamb MD LAB BLOOD ORDERABLES Final R esult Performing Organization Address [facility] Co de Phone Number JEFF [address] [address] [place] [address] * (ABNORMAL) Basic metabolic panel (12/14/2024 10:53 [...] 2022. Calcium 8.3(L) 8.5 - 10.3 mg/dL [facility] Blood 12/14/2024 10:5 3 PM CDT 12/14/2024 11:11 PM CDT Theresa Lamb MD LAB BLOOD ORDERABLES Final R esult Performing Organization Address City/[facility]/ZIP Co de Phone Number JEFF BRODERICK [address] [address] [place] [address] * POCT glucose (12/14/2024 10:12 PM CDT) Glucose, POC 132 70 - 199 mg/dL POC Performer [id number] [facility] Blood 12/14/2024 10:1 2 PM CDT 12/14/2024 10:12 PM CDT Theresa Lamb MD LAB POCT ORDERABLES - DEVICE Final Result JEFF BRODERICK [address] [address] Department [place] [address] * Critical Care (12/14/2024 9:57 PM CDT) [...] with the ICU team and other medical/business analyst consultant staff, making frequent assessments and decisions [...] * POCT glucose (12/14/2024 9:11 PM CDT) [facility] Signature Glucose, POC 126 70 - 199 mg/dL POC Performer [id number] [facility] Blood 12/14/2024 9:11 PM CDT 12/14/2024 9:11 PM CDT us Theresa Lamb MD LAB POCT ORDERABLES - DEVICE Final Result JEFF [address] [address] [place] [address] * POCT glucose (12/14/2024 8:09 PM CDT) Glucose, POC 124 70 - 199 mg/dL POC Performer [id number] [facility] Blood 12/14/2024 8:09 PM CDT 12/14/2024 8:09 PM CDT Theresa Lamb MD LAB POCT ORDERABLES - DEVICE Final Result Performing Organization Address City/[facility] Co de Phone Number SAMANTHAROGER BRODERICK [address] [address] [place] [address] * POCT glucose (12/14/2024 7:00 PM CDT) Pathologist [facility] Glucose, POC 116 70 - 199 mg/dL POC Performer [id number] [facility] Blood 12/14/2024 7:00 PM CDT 12/14/2024 7:00 PM CDT us Theresa Lamb MD LAB POCT ORDERABLES - DEVICE Final Result Performing Organization Address [facility] Co de Phone Number JEFF DAVIE [address] [address] [facility] [employer] [place], [place] [address] * Calcium, ionized, whole blood (12/14/2024 6:10 PM CDT) [facility] Ca, ionized, bld 4.93 4.50 - 5.10 mg/dL Blood 12/14/2024 6:10 PM CDT 12/14/2024 6:14 PM CDT Jose Vega TOOL ADJUSTER LAB BLOOD ORDERABLES Final Result Performing Organization Address [facility] Co de Phone Number JEFF BRODERICK [address] [address] [facility] [place] [address] * eGFR (12/14/2024 6:10 PM CDT) [facility] eGFR >90 >=60 mL/min/1. 73 m2 Comment: [...] BLOOD ORDERABLES Final Result Performing Organization Address [facility]/ZIP Co de Phone Number JEFF DAVIE [address] [address] Department [place] [address] * aPTT (12/14/2024 6:10 PM [...] LAB [place] [address] [address] [place] [address] * (ABNORMAL) Protime-INR (12/14/2024 6:10 PM CDT) PT 15.8(H) 9.7 - 13.0 sec INR 1.45(H) 0.90 - 1.20 [facility] Comment: Interpretive data Oral anticoagulant therapeutic ranges: Venous thromboembolism prophylaxis or treatment: 2.0-3.0 CARDIOLOGY Standard range: 2.0-3.0 High-intensity range: 2.5-3.5 Refer to indication-specific guidelines for appropriate target ranges for prosthetic heart valve replacement. Current interpretive data was last revised on 2019. Blood 12/14/2024 6:10 PM CDT 12/14/2024 6:16 PM CDT Jose Vega NP LAB BLOOD ORDERABLES Final Result JEFF [address] [address] Department [place] [address] * (ABNORMAL) CBC without differential (12/14/2024 6:10 PM CDT) Pathologist [facility] WBC 18.46(H) 3.80 - 9.90 K/cumm Hgb 10.7(L) 13.0 - 17.5 g/dL [facility] Hct 31.5(L) 38.9 - 50.3 % [facility] Plt 176 150 - 400 K/cumm [facility] MPV 8.8(L) 9.1 - 12.3 fL [facility] RBC 3.72(L) 4.30 - 5.80 M/cumm [facility] MCV 84.7 81.3 - 96.4 fL [facility] MCH 28.8 27.1 - 33.3 pg [facility] MCHC 34.0 32.3 - 35.7 g/dL [facility] RDW CV 13.2 11.1 - 14.9 % [facility] RDW SD 41.1 35.7 - 48.1 fL [facility] NRBC abs 0.00 0.00 - 0.01 K/cumm [facility] Blood 12/14/2024 6:10 PM CDT 12/14/2024 6:16 PM CDT Jose Vega TOOL ADJUSTER LAB BLOOD ORDERABLES Final Result Performing Organization Address [facility]/ZIP Co de Phone Number JEFF BRODERICK [address] [address] [facility] [place] [address] * Phosphorus (12/14/2024 6:10 PM CDT) Phosphorus, pl 3.0 2.3 - 4.5 mg/dL Blood 12/14/2024 6:10 PM CDT 12/14/2024 6:14 PM CDT Fran Mcgrath TOOL ADJUSTER LAB BLOOD ORDERABLES Fin al Result Performing Organization Address [facility] Co de Phone Number JEFF BRODERICK [address] [address] [facility] [place] [address] * Magnesium (12/14/2024 6:10 PM CDT) Magnesium 2.5 1.4 - 2.5 mg/dL Blood 12/14/2024 6:10 PM CDT 12/14/2024 6:14 PM CDT Jose Vega TOOL ADJUSTER LAB BLOOD ORDERABLES Final Result Performing Organization Address [facility] Co de Phone Number JEFF BRODERICK [address] [address] [place] [address] * (ABNORMAL) Blood gas, arterial (12/14/2024 6:10 [...] CDT 12/14/2024 6:14 PM CDT Jose Vega TOOL ADJUSTER LAB BLOOD ORDERABLES Final Result JEFF BRODERICK [address] Department [place] [address] * (ABNORMAL) Basic metabolic panel (12/14/2024 6:10 PM CDT) [facility] Sodium 142 135 - 145 mmol/L Potassium, pl 4.3 3.3 - 4.9 mmol/L [facility] Chloride 112(H) 97 - 110 mmol/L [facility] CO2 19(L) 22 - 32 mmol/L [facility] Anion gap 11 2 - 15 mmol/L [facility] BUN 19 6 - 25 mg/dL [facility] Creatinine 0.73(L) 0.80 - 1.30 mg/dL [facility] Glucose 143 70 - 199 mg/dL [facility] Comment: Interpretive Data Fasting glucose >/= [...] 2022. Calcium 8.0(L) 8.5 - 10.3 mg/dL [facility] Blood 12/14/2024 6:10 PM CDT 12/14/2024 6:14 PM CDT Jose Vega TOOL ADJUSTER LAB BLOOD ORDERABLES Final Result Performing Organization Address [facility]/ZIP Co de Phone Number JEFF BRODERICK [address] [address] Department [place] [address] * XR Chest 1 View (12/14/2024 6:08 [...] with the ICU team and other medical/business analyst consultant staff, making frequent assessments and decisions [...] 133 70 - 199 mg/dL POC Performer [id number] [facility] Blood 12/14/2024 5:50 PM CDT 12/14/2024 5:50 PM CDT us Theresa Lamb MD LAB POCT ORDERABLES - DEVICE Final Result [facility] [address] [address] Department [place] [address] * (ABNORMAL) POC Blood Gas and Chemistries, [...] - DEVICE Final Result Performing Organization Address City/[facility]/ZIP Co de Phone Number JEFF BRODERICK [address] [place] [address] * POC Activated Clotting Time, High Range (12/14/2024 4:26 PM CDT) ACT 96 87 - 138 sec POC Performer [id number] [facility] Blood 12/14/2024 4:26 PM CDT 12/14/2024 4:26 PM CDT Theresa Lamb MD LAB BLOOD ORDERABLES Final R esult SAMANTHAROGER BRODERICK [address] [address] Department [employer] [place], [place] [id number] * (ABNORMAL) POC Activated Clotting Time, High Range (12/14/2024 3:54 PM CDT) ACT 516(H) 87 - 138 sec POC Performer [id number] [facility] Blood 12/14/2024 3:54 PM CDT 12/14/2024 3:54 PM CDT Theresa Lamb MD LAB BLOOD ORDERABLES Final R esult JEFF [address] [address] Department [place] [address] * (ABNORMAL) POC Blood Gas and Chemistries, [...] - DEVICE Final Result Performing Organization Address [facility] Co de Phone Number JEFF BRODERICK [address] [address] [facility] [place] [address] * (ABNORMAL) POC Activated Clotting Time, High Range (12/14/2024 3:38 PM CDT) ACT 583(H) 87 - 138 sec POC Performer [id number] [facility] Blood 12/14/2024 3:38 PM CDT 12/14/2024 3:38 PM CDT Theresa Lamb MD LAB BLOOD ORDERABLES Final R esult Performing Organization Address [facility] Co de Phone Number JEFF BRODERICK [address] [address] [place] [address] * Platelet count (12/14/2024 3:24 PM CDT) Pathologist [facility] Plt 172 150 - 400 K/cumm Blood 12/14/2024 3:24 PM CDT 12/14/2024 3:29 PM CDT Theresa Lamb MD LAB BLOOD ORDERABLES Final R esult Performing Organization Address [facility] de Phone Number JEFF BRODERICK [address] [address] [place] [address] * (ABNORMAL) POC Blood Gas and Chemistries, [...] - DEVICE Final Result Performing Organization Address City/[facility]/ZIP Co de Phone Number JEFF BRODERICK [address] [address] Department [place] [address] * (ABNORMAL) POC Activated Clotting Time, High Range (12/14/2024 3:11 PM CDT) ACT 640(H) 87 - 138 sec POC Performer [id number] [facility]NER Blood 12/14/2024 3:11 PM CDT 12/14/2024 3:11 PM CDT Theresa Lamb MD LAB BLOOD ORDERABLES Final R esult JEFF BRODERICK [address] [address] [place] [address] * (ABNORMAL) POC Activated Clotting Time, High Range (12/14/2024 2:34 PM CDT) ACT 547(H) 87 - 138 sec POC Performer [id number] CERNER [facility] Blood 12/14/2024 2:34 PM CDT 12/14/2024 2:34 PM CDT us Theresa Lamb MD LAB BLOOD ORDERABLES Final R esult JEFF [address] Department [place] [address] * (ABNORMAL) POC Blood Gas and Chemistries, [...] ORDERABLES - DEVICE Final Result JEFF BRODERICK [address] [place] [address] * (ABNORMAL) POC Blood Gas and Chemistries, [...] ORDERABLES - DEVICE Final Result JEFF BRODERICK [address] [place] [address] * (ABNORMAL) POC Activated Clotting Time, High Range (12/14/2024 1:48 PM CDT) ACT 738(H) 87 - 138 sec POC Performer [id number] CERNER CH Blood 12/14/2024 1:48 PM CDT 12/14/2024 1:48 PM CDT Theresa Lamb MD LAB BLOOD ORDERABLES Final R esult Performing Organization Address [facility]/State/ZIP Co de Phone Number JEFF [address] Department [place] [address] * (ABNORMAL) POC Blood Gas and Chemistries, [...] ORDERABLES - DEVICE Final Result JEFF BRODERICK [address] [place] [address] * (ABNORMAL) POC Activated Clotting Time, High Range (12/14/2024 1:12 PM CDT) ACT 775(H) 87 - 138 sec POC Performer [id number] CERNER CH Blood 12/14/2024 1:12 PM CDT 12/14/2024 1:12 PM CDT Theresa Lamb MD LAB BLOOD ORDERABLES Final R esult Performing Organization Address [facility]/ZIP Co de Phone Number JEFF BRODERICK [address] [place] [address] * (ABNORMAL) POC Blood Gas and Chemistries, [...] Hb, POC 14.0 13.0 - 17.5 g/dL [facility] Blood 12/14/2024 12:1 5 PM CDT 12/14/2024 12:15 PM CDT us Theresa Lamb MD LAB POCT ORDERABLES - DEVICE Final Result JEFF [address] Department [place] [address] * GABI (12/14/2024 12:09 PM CDT) Anatomical Region Laterality Modality Other Narrative 12/14/2024 12:09 PM CDT Neeraj Craft MD 12/14/2024 12:10 PM GABI Date/time: 12/14/2024 12:09 PM Staff: Supervising anesthesiologist: Neeraj Craft MD Performed by: Anesthesiologist: Neeraj Carft MD Preprocedure checklist: patient identified, procedure contraindications [...] inferior: hypokinetic 16- Apical septal: hypokinetic 17- [place]: hypokinetic Valves: Aortic Valve: Annulus: normal Leaflet [...] 101 87 - 138 sec POC Performer [id number] JEFF BRODERICK Blood 12/14/2024 12:0 6 PM CDT 12/14/2024 12:06 PM CDT us Theresa Lamb MD LAB BLOOD ORDERABLES Final R esult JEFF BRODERICK [address] Department [place] [address] * BW AN SHEATH INTRODUCER [...] line with maximal sterile barrier technique, Ernie [facility] student placed central line under direct supervision us Neeraj Craft MD ANESTHESIA ORDERABLES Final Resu lt * SC AN ELECTIVE ENDOTRACHEAL AIRWAY (12/14/2024 11:51 AM [...] 4 Units (12/14/2024 9:02 AM CDT) Pathologist [facility] Product code [id number] CERNER CH Unit Number [id number] 8-5 CERNER CH Product Blood Type ANEG CERNER CH Dispense Status RETURNED CERNER CH Product code [id number] Unit Number [id number] 0-N CERNER CH Product Blood Type ANEG CERNER CH Dispense Status RETURNED [facility]ERNER [facility] Product code [id number] CERNER CH Unit Number [id number] 2-Z CERNER CH Product Blood Type ANEG CERNER CH Dispense Status RETURNED CERNER CH Product code [id number] CERNER CH Unit Number [id number] 6-C CERNER CH Product Blood Type ANEG CERNER CH Dispense Status RETURNED [facility]ERNER [facility] Blood 12/14/2024 9:02 AM CDT Narrative CERNER CH - 12/15/2024 1:18 AM CDT Specify Procedure:->CABG Are special requirements needed? (All products are leukoreduced and CMV- safe)- >No Date required:-[id number] LRRBC # of [id number] Reasons:-Hold for procedure (specify procedure)} us Kristal Edward NP BLOOD BANK PRODUCT ORDERA BLES Final Result JEFF BRODERICK [address] [place] [address] * POCT glucose (12/14/2024 8:57 AM CDT) [facility] Signature Glucose, POC 170 70 - 199 mg/dL POC Performer [id number] CERNER CH Blood 12/14/2024 8:57 AM CDT 12/14/2024 8:57 AM CDT us Theresa Lamb MD LAB POCT ORDERABLES - DEVICE Final Result JEFF BRODERICK [address] Department [place] [address] * TRANSTHORACIC ECHO (TTE) COMPLETE W DOPPLER/CF WO CONTRAST (12/08/2024 8:39 AM CDT) Anatomical Region Laterality Modality Ultrasound 12/08/2024 7:56 AM CDT Narrative 12/08/2024 4:37 [place] [address] Echocardiogram Report Patient Name: SHAWN SHULTZ BRIAN : 1950 Study Date: 12/08/2024 7:56:17 AM Gender: M Tech: JELANI Location: OP Ref Provider: THERESA LAMB Height(Cm): 170 BSA: 2.08 Weight(Kg): 91.2 Heart Rate: 59 BP: 139/77 Quality: Good Order Provider: THERESA LAMB PROCEDURES: Echocardiographic Report: Transthoracic echocardiogram with complete 2D, M-Mode, and color Doppler examination. INDICATIONS: I25.10 Atherosclerotic heart disease of [place] coronary artery without angina pectoris. MEASUREMENTS: 2D/MM [...] regurgitation. Electronically Signed By: Sonu Campbell MD, [facility] 12/08/2024 4:36:50 PM CDT Procedure Note Sonu Campbell MD - 12/08/2024 [place] [address] Echocardiogram Report Patient Name: SHAWN SHULTZ BRIAN : 1950 Study Date: 12/08/2024 7:56:17 AM Gender: M Tech: JELANI Location: OP Ref Provider: THERESA LAMB Height(Cm): 170 BSA: 2.08 Weight(Kg): 91.2 Heart Rate: 59 BP: 139/77 Quality: Good Order Provider: THERESA LAMB PROCEDURES: Echocardiographic Report: Transthoracic echocardiogram with complete 2D, M-Mode, and color Dopplerexamination. 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 MEASUREMENTS: 2D/MM Value [...] regurgitation. Electronically Signed By: Sonu Campbell MD, [facility] 12/08/2024 4:36:50 PM CDT us Theresa Lamb MD CV ECHO PROCEDURES Final Res ult * Troponin T high-sensitivity 2-hour (12/07/2024 1:11 PM CDT) Trop T hs 17 <=22 ng/L Comment: Interpretive Data For further hscTnT resources including the diagnostic algorithm and an aid in interpretation, copy and paste this link: [email or web address]/show/[email or web address] Current Interpretive Data last revised 2020. Trop T hs delta -4 ng/L [facility] Trop T hs interp Insignificant [facility] Blood 12/07/2024 1:11 PM CDT 12/07/2024 1:11 PM CDT us Aric Tabor MD LAB BLOOD ORDERABLES F inal Result JEFF [address] [facility] Department [place] [address] * Troponin T high-sensitivity series (baseline, 2hr, 4hr, 6hr) (12/07/2024 11:12 AM CDT) Trop T hs 21 <=22 ng/L Comment: Interpretive Data For further hscTnT resources including the diagnostic algorithm and an aid in interpretation, copy and paste this link: [email or web address]/[email or web address] Current Interpretive Data last revised 2020. Blood 12/07/2024 11:1 2 AM CDT 12/07/2024 11:12 AM CDT us Waleska Mcneal MD LAB BLOOD ORDERABLES Ed ited Result - Final Performing Organization Address City/[facility]/ZIP Co de Phone Number JEFF BRODERICK [address] Department of Laboratories [place], [place] [id number] * eGFR (12/07/2024 11:12 AM CDT) eGFR [...] ORDERABLES F inal Result Performing Organization Address City/[facility]/ZIP Co de Phone Number JEFF BRODERICK [address] Department [place] [address] * Comprehensive metabolic panel (12/07/2024 11:12 AM [...] MD LAB BLOOD ORDERABLES Fi nal Result [facility] [address] Department [place] [address] * (ABNORMAL) Differential, auto (12/07/2024 11:09 AM [...] K/cumm CERNER CH Neutrophil pct 66.7 % [facility] Comment: Interpretive Data Percent cell count reference ranges are not reported, since discordance with absolute values may lead to misinterpretation of CBC data. Current Interpretive Data was last revised on 2017. Imm gran pct 0.5 % [facility] Comment: Interpretive Data Percent cell count reference ranges are not reported, since discordance with absolute values may lead to misinterpretation of CBC data. Current Interpretive Data was last revised on 2017. Lymphocyte pct 19.6 % [facility] Comment: Interpretive Data Percent cell count reference ranges are not reported, since discordance with absolute values may lead to misinterpretation of CBC data. Current Interpretive Data was last revised on 2017. Monocyte pct 10.7 % [facility] Comment: Interpretive Data Percent cell count reference ranges are not reported, since discordance with absolute values may lead to misinterpretation of CBC data. Current Interpretive Data was last revised on 2017. Eosinophil pct 1.6 % [facility] Comment: Interpretive Data Percent cell count reference ranges are not reported, since discordance with absolute values may lead to misinterpretation of CBC data. Current Interpretive Data was last revised on 2017. Basophil pct 0.9 % [facility] Comment: Interpretive Data Percent cell count reference ranges are not reported, since discordance with absolute values may lead to misinterpretation of CBC data. Current Interpretive Data was last revised on 2017. Blood 12/07/2024 11:0 9 AM CDT 12/07/2024 11:09 AM CDT Aric Tabor MD LAB BLOOD ORDERABLES F inal Result [facility] [address] Department [place] [address] * (ABNORMAL) CBC with auto differential (12/07/2024 11:09 AM CDT) WBC 8.13 3.80 - 9.90 K/cumm Hgb 14.1 13.0 - 17.5 g/dL [facility] Hct 42.4 38.9 - 50.3 % [facility] Plt 204 150 - 400 K/cumm CERNER CH MPV 8.6(L) 9.1 - 12.3 fL CERNER RBC 4.96 4.30 - 5.80 M/cumm [facility]ERNER CH MCV 85.5 81.3 - 96.4 fL CERNER MCH 28.4 27.1 - 33.3 pg CERROGER MCHC 33.3 32.3 - 35.7 g/dL [facility] RDW CV 13.5 11.1 - 14.9 % [facility] RDW SD 41.8 35.7 - 48.1 fL [facility] NRBC abs 0.00 0.00 - 0.01 K/cumm [facility]NER Blood Venous blood specimen / Unknown 12/07/2024 11:09 AM CDT 12/07/2024 11:09 AM CDT Waleska Mcneal MD LAB BLOOD ORDERABLES [facility] Result JEFF [address] Department [place] [address] * XR Chest 1 Vw Portable (if [...] CDT) 12/07/2024 10:2 4 AM CDT Narrative [facility] - 12/07/2024 4:21 PM CDT Vent Rate: 66 bpm RR Interval: 896 msec SC Interval: 249 msec QRS Duration: 115 msec QT Interval: 401 msec QTC Interval: 415 msec P-R-T [place]: 35 - -55 - 81 degrees IMPRESSION: [...] Mcneal MD ECG ORDERABLES Final R esult [facility] * XR Chest PA Lateral 2 View [...] CDT) 12/04/2024 10:3 4 AM CDT Narrative [facility] - 12/04/2024 11:16 AM CDT Vent Rate: 69 bpm RR Interval: 863 msec SC Interval: 244 msec QRS Duration: 102 msec QT Interval: 397 msec QTC Interval: 416 msec P-R-T [place]: 94 - 240 - 82 degrees IMPRESSION: SINUS RHYTHM WITH FIRST DEGREE AV BLOCK INDETERMINATE AXIS INCOMPLETE RIGHT BUNDLE BRANCH BLOCK ABNORMAL ECG NO CHANGE FROM PREVIOUS TRACING NOTED Electronically Signed By: Jose Godoy MD Theresa Lamb MD ECG ORDERABLES Final Result [facility] * eGFR (12/04/2024 9:57 AM CDT) eGFR [...] MD LAB BLOOD ORDERABLES Final R esult [facility] [address] Department [place] [address] * (ABNORMAL) Urinalysis reflex to [...] tendency for uric acid stone formation. Source: [facility] Current Interpretive Data was last revised on [...] O RDERABLES Final Result Performing Organization Address [facility] Co de Phone Number JEFF [address] [facility] [place] [address] * aPTT (12/04/2024 9:57 AM CDT) aPTT [...] ORDERABLES Final R esult Performing Organization Address [facility] de Phone Number [facility] [address] [place] [address] * Protime-INR (12/04/2024 9:57 AM CDT) PT 11.6 9.7 - 13.0 sec INR 1.07 0.90 - 1.20 [facility] Comment: Interpretive data Oral anticoagulant therapeutic ranges: Venous thromboembolism prophylaxis or treatment: 2.0-3.0 CARDIOLOGY Standard range: 2.0-3.0 High-intensity range: 2.5-3.5 Refer to indication-specific guidelines for appropriate target ranges for prosthetic heart valve replacement. Current interpretive data was last revised on 2019. Blood 12/04/2024 9:57 AM CDT 12/04/2024 10:35 AM CDT Theresa Lamb MD LAB BLOOD ORDERABLES Final R esult Performing Organization Address [facility]/State/ZIP Co de Phone Number JEFF BRODERICK [address] Department [place] [address] * (ABNORMAL) CBC without differential (12/04/2024 9:57 AM CDT) WBC 7.66 3.80 - 9.90 K/cumm Hgb 14.9 13.0 - 17.5 g/dL [facility] Hct 45.6 38.9 - 50.3 % [facility] Plt 203 150 - 400 K/cumm [facility] MPV 8.5(L) 9.1 - 12.3 fL [facility] RBC 5.28 4.30 - 5.80 M/cumm [facility] CH MCV 86.4 81.3 - 96.4 fL [facility] MCH 28.2 27.1 - 33.3 pg [facility] MCHC 32.7 32.3 - 35.7 g/dL [facility] RDW CV 13.4 11.1 - 14.9 % [facility] RDW SD 42.3 35.7 - 48.1 fL [facility] NRBC abs 0.00 0.00 - 0.01 K/cumm [facility] Blood 12/04/2024 9:57 AM CDT 12/04/2024 10:35 AM CDT Theresa Lamb MD LAB BLOOD ORDERABLES Final R esult JEFF BRODERICK [address] Department of [employer] [place], [place] [id number] * Type and screen (12/04/2024 9:57 AM CDT) ABO Rh A Negative Antonio, indirect Negative [facility] Blood 12/04/2024 9:57 AM CDT 12/04/2024 10:35 AM CDT Narrative [facility] - 12/04/2024 11:14 AM CDT Has the patient had Daratumumab or Isatuximab in the past 6 months?->Unknown Theresa Lamb MD LAB BLOOD BANK TEST ORDERABL ES Final Result Performing Organization Address [facility]/ZIP Co de Phone Number JEFF BRODERICK [address] Department [place] [address] * (ABNORMAL) Basic metabolic panel (12/04/2024 9:57 AM CDT) Sodium 140 135 - 145 mmol/L Potassium, pl 3.8 3.3 - 4.9 mmol/L [facility] Chloride 102 97 - 110 mmol/L [facility] CO2 27 22 - 32 mmol/L [facility] Anion gap 11 2 - 15 mmol/L [facility] BUN 15 6 - 25 mg/dL [facility] Creatinine 0.76(L) 0.80 - 1.30 mg/dL [facility] Glucose 288(H) 70 - 199 mg/dL [facility] Comment: Interpretive Data Fasting glucose >/= 126 [...] 2022. Calcium 9.1 8.5 - 10.3 mg/dL [facility] Blood 12/04/2024 9:57 AM CDT 12/04/2024 10:35 AM CDT us Theresa Lamb MD LAB BLOOD ORDERABLES Final R esult Performing Organization Address City/[facility]/ZIP Co de Phone Number JEFF BRODERICK [address] Department [place] [address] * (ABNORMAL) Troponin T high-sensitivity 2-hour (11/17/2024 10:14 PM CDT) Trop T hs 23(H) <=22 ng/L Comment: Interpretive Data For further hscTnT resources including the diagnostic algorithm and an aid in interpretation, copy and paste this link: [email or web address]/show/[email or web address] Current Interpretive Data last revised 2020. Trop T hs delta 2 ng/L [facility] Trop T hs interp Insignificant [facility] Blood 11/17/2024 10:1 4 PM CDT 11/17/2024 10:25 PM CDT Jeremie Tucker MD LAB BLOOD ORDERABLES Final Result Performing Organization Address [facility] Co de Phone Number JEFF BRODERICK [address] [place] [address] * Troponin T high-sensitivity series (baseline, 2hr, 4hr, 6hr) (11/17/2024 7:14 PM CDT) Trop T hs 21 <=22 ng/L Comment: Interpretive Data For further hscTnT resources including the diagnostic algorithm and an aid in interpretation, copy and paste this link: [email or web address]/[email or web address] Current Interpretive Data last revised 2020. Blood 11/17/2024 7:14 PM CDT 11/17/2024 10:06 PM CDT Jeremie Tucker MD LAB BLOOD ORDERABLES Final Result Performing Organization Address [facility] Co de Phone Number JEFF BRODERICK [address] [place] [address] * eGFR (11/17/2024 7:14 PM CDT) eGFR [...] MD LAB BLOOD ORDERABLES Final Result JEFF [address] Department [place] [address] * (ABNORMAL) Differential, auto (11/17/2024 7:14 PM CDT) Neutrophil abs 8.7(H) 1.5 - 6.5 K/cumm Imm gran abs 0.0 0.0 - 0.1 K/cumm [facility] Lymphocyte abs 2.2 0.8 - 3.3 K/cumm [facility] Monocyte abs 1.2(H) 0.2 - 0.8 K/cumm [facility] Eosinophil abs 0.2 0.0 - 0.5 K/cumm [facility] Basophil abs 0.1 0.0 - 0.1 K/cumm [facility] Neutrophil pct 70.6 % [facility] Comment: Interpretive Data Percent cell count reference [...] revised on 2017. Monocyte pct 9.4 % [facility] Comment: Interpretive Data Percent cell count reference [...] BLOOD ORDERABLES Final Result Performing Organization Address City/State/[facility] de Phone Number [facility] [address] Department [place] [address] * Respiratory pathogen panel Nasopharyngeal (11/17/2024 7:14 PM CDT) Pathologist [facility] Influenza A RNA Not Detected Not Detected Influenza B RNA Not Detected Not Detected [facility] RSV RNA Not Detected Not Detected [facility] COVID-19 RNA Not Detected Not Detected [facility] Coronavirus 229E RNA Not Detected Not Detected [facility] Coronavirus HKU1 RNA Not Detected Not Detected [facility] Coronavirus NL63 RNA Not Detected Not Detected [facility] Coronavirus OC43 RNA Not Detected Not Detected [facility] Adenovirus DNA Not Detected Not Detected [facility] Metapneumovirus RNA Not Detected Not Detected [facility] Rhinovirus/Enterov irus RNA Not Detected Not Detected [facility] Parainfluenza 1 RNA Not Detected Not Detected [facility] Parainfluenza 2 RNA Not Detected Not Detected [facility] Parainfluenza 3 RNA Not Detected Not Detected [facility] Parainfluenza 4 RNA Not Detected Not Detected [facility] B. pertussis DNA Not Detected Not Detected [facility] B. parapertussis DNA Not Detected Not Detected [facility] C. pneumoniae DNA Not Detected Not Detected [facility] M. pneumoniae DNA Not Detected Not Detected JEFF BRODERICK Comment: Interpretive Data The Exepron FilmArray Respiratory Panel (RP2.1) assay is a [...] assay has FDA clearance for testing of TOOL ADJUSTER swabs. The performance characteristics of this assay have been determined by [facility]. Current interpretive data was last revised on 2021. Nasopharyngeal 11/17/2024 7: 14 PM CDT 11/17/2024 7:18 PM CDT Narrative JEFF CH - 11/17/2024 8:16 PM CDT Is the Patient experiencing symptoms consistent with COVID?->Yes Surveillance testing for transplant patient?->No Jeremie Tucker MD LAB MICROBIOLOGY - GENERAL ORDERABLES Final Result Performing Organization Address City/[facility]/ZIP Co de Phone Number JEFF BRODERICK [address] Department [place] [address] CH * (ABNORMAL) CBC with [...] BLOOD ORDERABLES Final Result Performing Organization Address City/[facility]/ZIP Co de Phone Number JEFF BRODERICK [address] Department [place] [address] * (ABNORMAL) Comprehensive metabolic panel [...] Tucker MD LAB BLOOD ORDERABLES Final Result [facility] [address] Department [place] [address] * ECG 12 lead (11/17/2024 7:13 PM CDT) 11/17/2024 7:13 PM CDT Narrative [facility] - 11/17/2024 9:43 PM CDT Vent Rate: 83 bpm RR Interval: 715 msec SC Interval: 217 msec QRS Duration: 108 msec QT Interval: 376 msec QTC Interval: 416 msec P-R-T [place]: 30 - -79 - 67 degrees IMPRESSION: SINUS RHYTHM WITH FIRST DEGREE AV BLOCK INDETERMINATE AXIS INFERIOR MYOCARDIAL INFARCTION , PROBABLY OLD [40+ ms Q WAVE AND/OR ST/T ABNORMALITY IN II/aVF] ABNORMAL ECG NO CHANGE FROM PREVIOUS TRACING NOTED Electronically Signed By: Jose Godoy MD Jeremie Tucker MD ECG ORDERABLES Final Resu lt Performing Organization Address [facility] Co de Phone Number [employer] [facility] * (ABNORMAL) Albumin Creatinine Ratio, Urine (04/01/2024 11:09 AM CDT) Albumin Ur 19.5 mg/L Comment: Interpretive Data No reference range established. Current interpretive data was last revised 2019. Creatinine Ur 60.3 mg/dL [facility] Comment: Interpretive Data No reference range established. Current interpretive data was last revised 2019. Albumin Creatinine Ratio, Ur 32(H) 1 - 29 mg/g JEFF Urine 04/01/2024 11:0 9 AM CDT 04/01/2024 5:29 PM CDT Alireza Clark MD LAB URINE ORDERABLES Final Resul t Performing Organization Address [facility] de Phone Number [facility] [address] Department [place] [address] * (ABNORMAL) Lipid panel (04/01/2024 11:09 AM [...] revised on 2018. HDL 35(L) >=40 mg/dL E[facility] Comment: Interpretive Data Ages < or = [...] BLOOD ORDERABLES Final Resul t JEFF DAVIE [address] [place] [address] from Last 3 Months or Most Recently Relevant to Health Maintenance Insurance MEDICARE [facility] Address: [address] [address] [place] [address] [employer] [facility] [place] [address] [employer] LIFE [facility] [place] [address] Advance Directives For more information, please contact: [phone] * Full Code (Latest Code Status on File) Date Activated Date Inactivated Comments 01/07/2025 1:12 PM 01/11/2025 11:13 PM * Full Code Date Activated Date Inactivated Comments 12/14/2024 5:54 PM 12/21/2024 8:28 PM * Full Code Date Activated Date Inactivated Comments 06/18/2024 3:52 PM 06/19/2024 10:57 PM * Full Code Date Activated Date Inactivated Comments 02/11/2024 3:49 PM 02/12/2024 6:22 PM Care Teams Director [employer] Relationship Specialty Start Date End Date Maryann Jiménez DO PCP - General Family Medicine 07/03/22 Jose David Betancourt MD [address] [place] [address] Consulting Physician Urology 06/19/24 Theresa Lamb MD [address] [place] [address] Surgeon Cardiothoracic Surgery 12/21/24 Jatinder Jones MD [address] [address] Consulting Physician Cardiology 12/21/24 Miscellaneous, Not In File 12/21/24
--- OUTSIDE RECORDS SUMMARY | 2025-02-16 15:27 | XMS_ITS | Encounter Summary ---
Author Organization [facility] Healthcare Address [address] [place] [id number] Care Team Providers Care Preparer Name Role Phone Maryann Jiménez DO Primary Care Provider + Jose David Betancourt MD Unavailable [phone] Ty Lamb MD Unavailable [phone] Jatinder Jones MD Unavailable [phone] Miscellaneous, Not In File Unavailable Unava ilable Encounter Details Date Type Department Care Team (Late st Contact Info) Description 01/05/2025 [facility] Post Discharge Follow up phone call [facility] [address] [place] [address] Ariella Larsen Social History Tobacco [...] materials from doctor or pharmacy Never 12/23/2024 [facility] Utilities Answer Date Recorded In the past [...] often do you attend chur ch or buddhism services? More than 4 times per year 12/17/2024 Do you belong to any clubs o r organizations such as methodist groups, unions, fraternal or athletic groups, or [...] staff should administer the PHQ-9) 0 08/17/2024 [facility] - Occupational Stress [...] living in a penitentiary (including now)? No 12/17/2024 Personal Safety Answer Date Recorded Have you ever been in or are you currently in a harmful physical or emotional relationship or is someone making you feel afraid or unsafe? 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 Male 3:55 AM [employer] Gender Identity Male 01/23/2020 12:25 AM CDT [...] documented as of this encounter Care Teams Preparer Relationship Specialty Start Date End Date Jiménez Maryann DO Missy PCP - General Family Medicine 07/03/22 Jose David Betancourt MD [address] [facility] [address] [place], [place] [id number] Consulting Physician Urology 06/19/24 Ty Lamb MD [address] [facility] [address] [place], [place] [id number] Surgeon Cardiothoracic Surgery 12/21/24 Jatinder Jones MD [address] [place] [address] Consulting Physician Cardiology 12/21/24 Miscellaneous, Not In File 12/21/24 documented as of this encounter
--- OUTSIDE RECORDS SUMMARY | 2025-02-16 15:27 | XMS_ITS | Clinical Summary ---
Author Organization [facility] Address [address] [place] [address] Care Team Providers Care Processor Grain Name Role Phone Maryann Jiménez DO Primary Care Provider + Jose David Betancourt MD Unavailable [phone] Theresa Lamb MD Unavailable [phone] Jatinder Jones MD Unavailable [phone] Miscellaneous, Not In File Unavailable Unava ilable [...] tabletIndication s:hypothyroidism Take 1 tablet by mouth organization development consultant before breakfast Active metFORMIN (GLUCOPHAGE) 1,000 mg [...] hyperglycemia, with long-term current use of insulin ([facility]) Dx code E11.65. T2DM with hyperglycemia with manager terminal current use of insulin. 3 each 3 [...] are complete. Avoid live-vaccines unless reviewed with asbestos hazard abatement worker first. Overexertion from strenuous movement or load, [...] 08/07/2017 Assessment & Plan (08/17/2024 11:11 AM TARIFF PUBLISHING AGENT): Chronic, worsening. Restart Trulicity 3 mg weekly [...] and Trulicity Send me a message via C3Nano every week, so we can look at [...] Overview (12/08/2016): Essential hypertension Coronary arteriosclerosis in [place] artery 09/28 Overview (12/08/2016): Coronary artery disease involving [place] coronary artery of [place] heart without angina pectoris Arthralgia of shoulder [...] Type Department Care Team Description 02/12/2025 Telephone [facility] Medical [facility] Cardiology [address] [place] [address] Jatinder Jones MD 02/11/2025 Telephone [facility] [address] [place] [address] [address] [place] [address] Alireza Clark MD Med Refill 01/27/2025 10:30 AM CDT Home Care Visit [address] [place] [address] Lori Puckett SN OASIS DISCHARGE 01/26/2025 1:15 PM CDT Office Visit [facility] Surgery [id number] [place] [address] [address] [place] [address] Theresa Lamb MD Coronary artery disease (CAD) excluded (Primary Dx) 01/25/2025 [facility] Post Discharge Follow up phone call [facility] [id number] [place] [address] Ariella Larsen 01/21/2025 10:30 AM CDT Home Care Visit [address] [place] [address] Lori Puckett SN HOME VISIT 01/18/2025 9:30 AM CDT Home Care Visit [address] [place] [address] Lori Puckett SN HOME VISIT 01/18/2025 Telephone [facility] [address] [place] [address] [address] [place] [address] Alireza Clark MD 01/14/2025 Plan of Care Documentation [address] [place] [address] 01/13/2025 12:30 PM CDT Home Care Visit [address] [place] [address] Kaitlynn Elizalde, TOÑO SN OASIS RESUMPTION OF CARE 01/12/2025 Orders Only [facility] Cardiology [address] [facility] [address] [address] Jatinder Jones MD Presence of cardiac pacemaker (Primary Dx); SSS (sick sinus syndrome) (HCC); Bradycardia 01/12/2025 Orders Only [facility] Surgery [address] [facility] [address] [place] [phone] Jose Vega NP 01/08/2025 3:36 PM CDT Anesthesia Event [facility] Operating Room [address] [place] [address] Karen Tavarez DO Vuong, Peter Thuan, MD 01/08/2025 3:20 PM CDT - 01/08/2025 5:20 PM CDT Surgery [facility] Operating Room [address] [place] [address] Theresa Lamb MD REPLACE PACEMAKER GENERATOR FROM ABDOMEN WITH FLUOROSCOPY 01/07/2025 1:01 PM CDT - 01/11/2025 7:12 PM CDT Hospital Encounter [address] [address] Sindhu Whittington MD Munfakh, Nabil A., MD Brother, Michele, MD Rivera, Samantha, MD Cardiac tamponade (Primary Dx); Cervical myofascial pain syndrome; Syncope and collapse; Frailty syndrome in geriatric patient Discharge Disposition: Discharge to home, home health skilled care 01/07/2025 12:18 PM CDT - 01/07/2025 11:59 PM CDT Hospital Encounter [facility] AMBULANCE BILLING Emergency, Room R Discharge Disposition: Discharge to home or self care 01/07/2025 8:28 AM CDT - 01/07/2025 12:14 PM CDT Emergency [facility] Emergency Department [address] [place] [address] Jt Mejia MD Lo Bianco, Salvador, MD Cardiac tamponade (Primary Dx); Bradycardia; Heart block Discharge Disposition: Discharge to a short term hospital for IP 01/07/2025 8:15 AM CDT - 01/07/2025 11:59 PM CDT Hospital Encounter [facility] AMBULANCE BILLING Emergency, Room R Discharge Disposition: Discharge to home or self care 01/07/2025 Home Care Visit [address] [address] [address] [place] [address] Lori Puckett SN OASIS TRANSFER W/OUT DC 01/05/2025 10:00 AM CDT Home Care Visit [address] [address] [address] [place] [address] Lori Puckett SN HOME VISIT 01/05/2025 [facility] Post Discharge Follow up phone call [address] [address] Ariella Larsen 01/05/2025 [facility] Post Discharge Follow up phone call [address] [address] Ariella Larsen 01/01/2025 2:45 PM CDT - 01/01/2025 11:59 PM CDT Hospital Encounter [facility] Radiology - Outpatient Center at [address] [address] Acute cough Discharge Disposition: Discharge to home or self care 01/01/2025 2:15 PM CDT Office Visit [facility] Convenient Care at [address] [phone] Nayely Sharp NP Acute cough (Primary Dx) 01/01/2025 9:30 AM CDT Home Care Visit [address] [place] [address] [address] [place] [address] Kristal Allen RN SN HOME VISIT 01/01/2025 Results Follow-Up [facility] at [address] [place] [address] Nayely Sharp NP XR Chest Pa Lateral 2 Views 01/01/2025 Documentation [facility] Surgery [address] [place] [address] [address] [place] [address] Jose Vega NP 12/31/2024 Orders Only [facility] Surgery [address] [place] [address] [address] [place] [address] Joes Vega NP 12/29/2024 11:30 AM CDT Home Care Visit [address] [place] [address] Kristal Allen, TOÑO SN HOME VISIT 12/29/2024 Home Care Visit [address] [place] [address] Lori Puckett CARE CONFERENCE 12/28/2024 12:00 PM CDT - 12/28/2024 11:59 PM CDT Hospital Encounter [facility] Diagnostic Imaging [address] [place] [address] S/P CABG (coronary artery bypass graft) Discharge Disposition: Discharge to home or self care 12/28/2024 Documentation [facility] Surgery [address] [facility] [address] [place] [address] Jose Vega NP 12/28/2024 Orders Only [facility] Surgery [address] [facility] [address] [place] [address] Jose Vega NP S/P CABG (coronary artery bypass graft) (Primary Dx) 12/26/2024 11:57 AM CDT - 12/26/2024 11:59 PM CDT Hospital Encounter [address] [id number] Discharge Disposition: Discharge to home or self care 12/26/2024 11:30 AM CDT Home Care Visit [address] [place] [address] Lori Puckett SN HOME VISIT 12/25/2024 Home Care Visit [address] [place] [address] Yudith Ayers RN SN TRIAGE ENCOUNTER 12/23/2024 9:30 AM CDT Home Care Visit [address] [place] [address] Tia Paz, TOÑO SN OASIS START OF CARE 12/23/2024 Plan of Care Documentation [address] [place] [address] 12/21/2024 Telephone [facility] Home Care Services [address] [place] [address] Tushar Meeks MA 12/14/2024 1:00 PM CDT - 12/14/2024 6:30 PM CDT Surgery [facility] Operating Room [address] [place] [address] Theresa Lamb MD CORONARY ARTERY BYPASS GRAFT X 4 - INTERNAL MAMMARY/RADIAL ARTERY/SAPHENOUS VEIN GRAFT - LEG 12/14/2024 11:24 AM CDT Anesthesia Event [facility] Operating Room [address] [place] [address] Neeraj Craft MD Barnhart, Lynlee Jo, NP 12/14/2024 8:40 AM CDT - 12/21/2024 4:28 PM CDT Hospital Encounter [address] [address] Theresa Lamb MD Coronary artery disease of bypass graft of [place] heart with stable angina pectoris (Primary Dx); Coronary artery disease of [place] artery of [place] heart with stable angina pectoris; Coronary arteriosclerosis in [place] artery Discharge Disposition: Discharge to home, home health skilled care 12/08/2024 7:37 AM CDT - 12/08/2024 11:59 PM CDT Hospital Encounter [facility] Non-invasive Cardiac Diagnostic Testing [address] [place] [address] Coronary arteriosclerosis in [place] artery Discharge Disposition: Discharge to home or self care 12/07/2024 10:25 AM CDT - 12/07/2024 4:43 PM CDT Emergency [facility] Emergency Department [address] [place] [address] Waleska Mcneal MD Chest pain, unspecified type (Primary Dx) Discharge Disposition: Discharge to home or self care 12/04/2024 10:18 AM CDT - 12/04/2024 11:59 PM CDT Hospital Encounter [facility] Diagnostic Imaging [address] [place] [address] Discharge Disposition: Discharge to home or self care 12/04/2024 9:45 AM CDT Pre-Admission Testing [facility] Pre Anesthesia Testing [address] [place] [address] Coronary artery disease of [place] heart with stable angina pectoris, unspecified vessel or lesion type; Shortness of breath 12/01/2024 3:00 PM CDT Office Visit [facility] Surgery [address] [place] [address] [address] [place] [phone] Theresa Lamb MD Coronary artery disease involving [place] coronary artery of [place] heart without angina pectoris (Primary Dx); Coronary artery disease involving [place] coronary artery of [place] heart, unspecified whether angina present 12/01/2024 Orders Only [facility] Surgery [address] [place] [address] [address] [place] [phone] Theresa Lamb MD Coronary arteriosclerosis in [place] artery (Primary Dx) 11/27/2024 12:30 PM CDT Office Visit [facility] Rheumatology at [facility] [address] [facility] [address] [place] [address] Idania Mehta MD Polyarticular psoriatic arthritis (HCC) (Primary Dx); Encounter for long-term (current) use of high-risk medication; Coronary artery disease involving [place] coronary artery of [place] heart without angina pectoris 11/23/2024 Documentation [facility] Surgery [address] [place] [address] [address] [place] [phone] Kristal Edward NP PCP Callback Request - Patient; CTS Consultation- Patient CAll 11/17/2024 6:59 PM CDT - 11/17/2024 11:55 PM CDT Emergency [facility] Emergency Department [address] [place] [address] Jeremie Tucker MD Diarrhea, unspecified type (Primary Dx) Discharge Disposition: Discharge to home or self care 11/17/2024 Telephone [facility] Cardiology [address] [place] [address] [place] [phone] Jatinder Jones MD 11/16/2024 Telephone [facility] Cardiology [address] [facility] [address] [facility] [address] Matthew Gong MD 11/16/2024 Telephone [facility] [address] [place] [address] [place] [address] Alireza Clark MD Freestyle Libre Order [...] 1986 TIA Cataract Palpitations Pacemaker pacemaker in [facility] ce, but does not work, per patient [...] materials from doctor or pharmacy Never 01/27/2025 [facility] Utilities Answer Date Recorded In the past 12 months has th e [employer], gas, oil, or water company threatened to [...] often do you attend chur ch or pentecostal services? More than 4 times per year 01/11/2025 Do you belong to any clubs o r organizations such as cheondoism groups, unions, fraternal or athletic groups, or [...] should administer the PHQ-9) 0 08/17/2024 [facility] - Occupational Stress [...] any time in the past 12 m [facility], were you homeless or living in a group home (including now)? No 01/11/2025 Personal Safety Answer Date Recorded Have you ever been in or are you currently in a harmful physical or emotional relationship or is someone making you feel afraid or unsafe? 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 Male 3:55 AM TARIFF PUBLISHING AGENT Gender Identity Male 01/23/2020 12:25 AM CDT [...] no relief. Medical Devices Implanted Type Area Genetics Teacher Device Identifier Shelf Expiration Date Model / Serial / Lot [employer] Active Fixation Steroid Eluting Latex Free Sterile Right Atrium Ventricle Ultipace 58cm [id number]/58 - [id number] - [id number] Implanted:Qty: 1 on 01/08/2025 by Theresa Lamb MD at [facility] Lead Left: Chest [employer] [id number] 09/01/2027 [id number]/58 / [id number] / [employer] Active Fixation Steroid Eluting Latex Free Sterile Right Atrium Ventricle Ultipace 52cm Gpi4914/52 - [id number] - [id number] Implanted:Qty: 1 on 01/08/2025 by Theresa Lamb MD at [facility] Lead Left: Chest [employer] [id number] 10/31/2027 [id number]/52 / [id number] / [employer] Assurity Mri 81x41sd 2 Chamber Is-1 Connector Thk6mm Pacemaker [id number] - [id number] - [id number] Implanted:Qty: 1 on 01/08/2025 by Theresa Lamb MD at [facility] Pacemaker Left: Chest [employer] [id number] 06/01/2026 [id number] / [id number] / [employer] Liyah Ams 700 Kit Accessory Penile Prosthesis [id number] - [id number] Implanted:Qty: 1 on 06/18/2024 by Jose David Betancourt MD at [facility] N/A: Groin [employer]ah [id number] 04/08/2029 [id number] / / [id number] [employer] Ams Spectra 12/14mm .5cm Cylinder Concealable Malleable Rear Tip [id number] - [id number] Implanted:Qty: 1 on 06/18/2024 by Jose David Betancourt MD at [facility] N/A: Penis [employer]ah [id number] 02/15/2029 [id number] / / [id number] [employer] Ams 700 Preconnect 1 Ms Pump 2 Cylinder Penoscrotal Prosthesis [id number] - [id number] Implanted:Qty: 1 on 06/18/2024 by Jose David Betancourt MD at [facility] N/A: Penis [employer]ah [id number] 10/13/2025 [id number] / / [id number] [employer] Conceal Low Profile [place] 100ml Prosthesis Inhibizone Sterile Latex Free [id number] - [id number] Implanted:Qty: 1 on 06/18/2024 by Jose David Betancourt MD at [facility] Left: Pelvis [employer]yah [id number] 04/22/2026 [id number] / [id number] Procedures Procedure Name Priority Date/Time Associated Diagnosis [...] 8:03 AM CDT Coronary artery disease of [place] artery of [place] heart with stable angina pectoris POCT GLUCOSE [...] 9:01 PM CDT Coronary artery disease of [place] artery of [place] heart with stable angina pectoris POCT GLUCOSE [...] 1:57 PM CDT Coronary artery disease of [place] artery of [place] heart with stable angina pectoris POCT GLUCOSE [...] 9:57 PM CDT Coronary artery disease of [place] artery of [place] heart with stable angina pectoris POCT GLUCOSE [...] 6:07 PM CDT Coronary artery disease of [place] artery of [place] heart with stable angina pectoris POCT GLUCOSE [...] 11:23 AM CDT Coronary artery disease of [place] heart with stable angina pectoris, unspecified vessel or lesion type PREPARE RBC STAT 12/14/2024 9:02 AM CDT POCT GLUCOSE DEVICE Routine 12/14/2024 8 :57 AM CDT TRANSTHORACIC ECHO (TTE) COMPLETE W DOPPLER/CF WO CONTRAST Routine 12/08/2024 8:39 AM CDT Coronary arteriosclerosis in [place] artery TROPONIN T HIGH-SENSITIVITY 2-HOUR Timed 12/07/2024 [...] 10:45 AM CDT Coronary artery disease of [place] heart with stable angina pectoris, unspecified vessel or lesion type ECG 12-LEAD Routine 12/04/2024 10:34 AM CDT Coronary artery disease of [place] heart with stable angina pectoris, unspecified vessel or lesion type EGFR Routine 12/04/2024 9:57 AM CDT Coronary artery disease of [place] heart with stable angina pectoris, unspecified vessel or lesion type BASIC METABOLIC PANEL Routine 12/04/2024 9:57 AM CDT Coronary artery disease of [place] heart with stable angina pectoris, unspecified vessel or lesion type PROTIME-INR Routine 12/04/2024 9:57 AM CDT Coronary artery disease of [place] heart with stable angina pectoris, unspecified vessel or lesion type APTT Routine 12/04/2024 9:57 AM CDT Coronary artery disease of [place] heart with stable angina pectoris, unspecified vessel or lesion type Shortness of breath CBC WITHOUT DIFFERENTIAL Routine 12/04/2024 9:57 AM CDT Coronary artery disease of [place] heart with stable angina pectoris, unspecified vessel or lesion type TYPE AND SCREEN Routine 12/04/2024 9:57 AM CDT Coronary artery disease of [place] heart with stable angina pectoris, unspecified vessel or lesion type URINALYSIS AND REFLEX TO MICROSCOPIC AND CULTURE Routine 12/04/2024 9:57 AM CDT Coronary artery disease of [place] heart with stable angina pectoris, unspecified vessel [...] POCT glucose (01/11/2025 1:21 PM CDT) Pathologist [facility] Glucose, POC 220(H) 70 - 199 mg/dL POC Performer [id number] JEFF BRODERICK Blood 01/11/2025 1:21 PM CDT 01/11/2025 1:21 PM CDT us Géneiss Delatorre MD LAB POCT ORDERABLES - DEVICE Final Result JEFF BRODERICK [address] Department [place] [address] * eGFR (01/11/2025 1:00 PM CDT) Pathologist [facility] eGFR >90 >=60 mL/min/1. 73 m2 Comment: [...] CDT 01/11/2025 1:00 PM CDT Jose Vega CARTOGRAPHY TEACHER LAB BLOOD ORDERABLES Final Result [facility] [address] Department [place] [address] * (ABNORMAL) Renal function panel (01/11/2025 1:00 PM CDT) Sodium 141 135 - 145 mmol/L Potassium, pl 3.8 3.3 - 4.9 mmol/L [facility] Chloride 100 97 - 110 mmol/L [facility] CO2 27 22 - 32 mmol/L [facility] Anion gap 14 2 - 15 mmol/L [facility] BUN 16 6 - 25 mg/dL [facility] Creatinine 0.67(L) 0.80 - 1.30 mg/dL [facility] Glucose 198 70 - 199 mg/dL [facility] Comment: Interpretive Data Fasting glucose >/= [...] 2022. Calcium 9.3 8.5 - 10.3 mg/dL [facility] Phosphorus, pl 2.8 2.3 - 4.5 mg/dL [facility] Albumin 3.6 3.5 - 5.0 g/dL [facility] Blood 01/11/2025 1:00 PM CDT 01/11/2025 1:00 PM CDT us Jsoe Vega NP LAB BLOOD ORDERABLES Final Result Performing Organization Address City/[facility]/ZIP Co de Phone Number [facility] [address] Department [place] [address] * eGFR (01/11/2025 9:11 AM CDT) eGFR [...] BLOOD ORDERABLES Final R esult JEFF BRODERICK [address] [place] [address] * (ABNORMAL) CBC without differential (01/11/2025 9:11 [...] LAB BLOOD ORDERABLES Final Result JEFF BRODERICK [address] [place] [address] * (ABNORMAL) CBC without differential (01/11/2025 9:11 [...] NRBC abs 0.00 0.00 - 0.01 K/cumm [facility] Blood 01/11/2025 9:11 AM CDT 01/11/2025 1:02 PM CDT us Theresa Lamb MD LAB BLOOD ORDERABLES Final R esult JEFF [address] Department of Laboratories [place] [phone] * (ABNORMAL) Renal function panel (01/11/2025 9:11 AM CDT) Sodium 138 135 - 145 mmol/L Potassium, pl 3.7 3.3 - 4.9 mmol/L [facility] Chloride 98 97 - 110 mmol/L [facility] CO2 29 22 - 32 mmol/L [facility] Anion gap 11 2 - 15 mmol/L [facility] BUN 16 6 - 25 mg/dL [facility] Creatinine 0.67(L) 0.80 - 1.30 mg/dL [facility] Glucose 198 70 - 199 mg/dL [facility] Comment: Interpretive Data Fasting glucose >/= [...] CH Albumin 3.7 3.5 - 5.0 g/dL [facility] CH Blood 01/11/2025 9:11 AM CDT 01/11/2025 1:02 PM CDT Theresa Lamb MD LAB BLOOD ORDERABLES Final R esult Performing Organization Address [facility] Co de Phone Number JEFF BRODERICK [address] Department [place] [place] [address] * POCT glucose (01/11/2025 8:12 AM CDT) Glucose, POC 189 70 - 199 mg/dL POC Performer [id number] [facility] Blood 01/11/2025 8:12 AM CDT 01/11/2025 8:12 AM CDT Génesis Delatorre MD LAB POCT ORDERABLES - DEVICE Final Result Performing Organization Address [facility] de Phone Number JEFF BRODERICK [address] Department [place] [address] * (ABNORMAL) POCT glucose (01/10/2025 9:34 PM CDT) Glucose, POC 250(H) 70 - 199 mg/dL POC Performer [id number] [facility] Blood 01/10/2025 9:34 PM CDT 01/10/2025 9:34 PM CDT Génesis Delatorre MD LAB POCT ORDERABLES - DEVICE Final Result Performing Organization Address [facility] Co de Phone Number JEFF BRODERICK [address] [facility] [place] [address] * TRANSTHORACIC ECHO (TTE) LIMITED/FOLLOW UP W LTD DOPPLER/CF WO CONTRAST (01/10/2025 6:28 PM CDT) EF Mod BP 60 % CONS SCIMAGE Anatomical Region Laterality Modality Ultrasound 01/10/2025 5:28 PM CDT Narrative 01/10/2025 5:59 [place] [address] Limited Echocardiogram Report Patient Name: SHAWN SHULTZ B : 1950 Study Date: 01/10/2025 5:28:40 PM Gender: M Tech: VT Location: [id number] Ref Provider: KRISTAL EDWARD Height(Cm): 168 BSA: [...] Procedure Note Jose Godoy MD - 01/10/2025 [place] [address] Limited Echocardiogram Report Patient Name: SHAWN SHULTZ B : 1950 Study Date: 01/10/2025 5:28:40 PM Gender: M Tech: VT Location: [id number] Ref Provider: KRISTAL EDWARD Height(Cm): 168 BSA: [...] 246(H) 70 - 199 mg/dL POC Performer [id number] [facility] Blood 01/10/2025 4:49 PM CDT 01/10/2025 4:49 PM CDT Génesis Delatorre MD LAB POCT ORDERABLES - DEVICE Final Result Performing Organization Address [facility] Co de Phone Number JEFF [address] [place] [address] * Type and screen (01/10/2025 12:49 PM CDT) Pathologist [facility] ABO Rh A Negative [place], indirect Negative [facility] Blood 01/10/2025 12:4 9 PM CDT 01/10/2025 12:53 PM CDT Narrative [facility] - 01/10/2025 1:41 PM CDT Has the patient had Daratumumab or Isatuximab in the past 6 months?->Unknown us Theresa Lamb MD LAB BLOOD BANK TEST ORDERABL ES Final Result Performing Organization Address City/[facility]/ZIP Co de Phone Number JEFF [address] [place] [address] * (ABNORMAL) POCT glucose (01/10/2025 12:05 PM CDT) Glucose, POC 208(H) 70 - 199 mg/dL POC Performer [id number] [facility] Blood 01/10/2025 12:0 5 PM CDT 01/10/2025 12:05 PM CDT Génesis Delatorre MD LAB POCT ORDERABLES - DEVICE Final Result Performing Organization Address [facility]/ZIP Co de Phone Number JEFF BRODERICK [address] [place] [address] * POCT glucose (01/10/2025 8:05 AM CDT) Glucose, POC 194 70 - 199 mg/dL POC Performer [id number] [facility] Blood 01/10/2025 8:05 AM CDT 01/10/2025 8:05 AM CDT Génesis Delatorre MD LAB POCT ORDERABLES - DEVICE Final Result Performing Organization Address [facility] de Phone Number SAMANTHAROGER BRODERICK [address] [address] [place] [address] * Calcium, ionized, whole blood (01/10/2025 7:43 AM CDT) Ca, ionized, bld 4.63 4.50 - 5.10 mg/dL Blood 01/10/2025 7:43 AM CDT 01/10/2025 7:53 AM CDT Theresa Lamb MD LAB BLOOD ORDERABLES Final R esult Performing Organization Address [facility] Co de Phone Number JEFF BRODERICK [address] [address] Department [place] [address] * eGFR (01/10/2025 7:43 AM CDT) eGFR [...] NP LAB BLOOD ORDERABLES Fin al Result [facility] [address] [address] [place] [address] * (ABNORMAL) CBC without differential (01/10/2025 7:43 AM CDT) WBC 8.90 3.80 - 9.90 K/cumm Hgb 9.9(L) 13.0 - 17.5 g/dL [facility] Hct 32.4(L) 38.9 - 50.3 % [facility] Plt 232 150 - 400 K/cumm [facility] MPV 8.7(L) 9.1 - 12.3 fL [facility] RBC 3.78(L) 4.30 - 5.80 M/cumm [facility] MCV 85.7 81.3 - 96.4 fL [facility] MCH 26.2(L) 27.1 - 33.3 pg [facility] MCHC 30.6(L) 32.3 - 35.7 g/dL [facility] RDW CV 13.6 11.1 - 14.9 % [facility] RDW SD 42.4 35.7 - 48.1 fL [facility] NRBC abs 0.00 0.00 - 0.01 K/cumm [facility] Blood 01/10/2025 7:43 AM CDT 01/10/2025 7:55 AM CDT Theresa Lamb MD LAB BLOOD ORDERABLES Final R esult Performing Organization Address City/[facility] Co de Phone Number JEFF BRODERICK [address] [address] Department [employer] [place], [place] [id number] * Magnesium (01/10/2025 7:43 AM CDT) Pathologist [facility] Magnesium 1.9 1.4 - 2.5 mg/dL Blood 01/10/2025 7:43 AM CDT 01/10/2025 7:55 AM CDT Theresa Lamb MD LAB BLOOD ORDERABLES Final R [facility] Performing Organization Address [facility] Co de Phone Number JEFF [address] [place] [address] * (ABNORMAL) Renal function panel (01/10/2025 7:43 AM CDT) Sodium 136 135 - 145 mmol/L Potassium, pl 4.1 3.3 - 4.9 mmol/L [facility] Chloride 102 97 - 110 mmol/L [facility] CO2 26 22 - 32 mmol/L [facility] Anion gap 8 2 - 15 mmol/L [facility] BUN 14 6 - 25 mg/dL [facility] Creatinine 0.67(L) 0.80 - 1.30 mg/dL [facility] Glucose 186 70 - 199 mg/dL [facility] Comment: Interpretive Data Fasting glucose >/= [...] CH Albumin 3.3(L) 3.5 - 5.0 g/dL [facility] Blood 01/10/2025 7:43 AM CDT 01/10/2025 7:55 AM CDT us Theresa Lamb MD LAB BLOOD ORDERABLES Final R esult JEFF [address] [address] [place] [address] * XR Chest 1 View (01/10/2025 6:05 [...] 239(H) 70 - 199 mg/dL POC Performer [id number] [facility] Blood 01/09/2025 9:09 PM CDT 01/09/2025 9:09 PM CDT Génesis Delatorre MD LAB POCT ORDERABLES - DEVICE Final Result Performing Organization Address City/[facility]/ZIP Co de Phone Number JEFF BRODERICK [address] [address] Department [employer] [place], [place] [id number] * (ABNORMAL) POCT glucose (01/09/2025 5:32 PM CDT) Glucose, POC 254(H) 70 - 199 mg/dL POC Performer [id number] [facility] Blood 01/09/2025 5:32 PM CDT 01/09/2025 5:32 PM CDT Génesis Delatorre MD LAB POCT ORDERABLES - DEVICE Final Result Performing Organization Address [facility]/ZIP Co de Phone Number JEFF BRODERICK [address] [address] Department [place] [place] [address] * (ABNORMAL) POCT glucose (01/09/2025 12:59 PM CDT) Glucose, POC 226(H) 70 - 199 mg/dL POC Performer [id number] [facility] Blood 01/09/2025 12:5 9 PM CDT 01/09/2025 12:59 PM CDT Génesis Delatorre MD LAB POCT ORDERABLES - DEVICE Final Result Performing Organization Address [facility] Co de Phone Number JEFF BRODERICK [address] [address] Department [place] [address] * POCT glucose (01/09/2025 7:47 AM CDT) Glucose, POC 191 70 - 199 mg/dL POC Performer [id number] [facility] Blood 01/09/2025 7:47 AM CDT 01/09/2025 7:47 AM CDT Génesis Delatorre MD LAB POCT ORDERABLES - DEVICE Final Result Performing Organization Address [facility] Co de Phone Number JEFF BRODERICK [address] [address] [place] [address] * Calcium, ionized, whole blood (01/09/2025 6:20 AM CDT) Pathologist [facility] Ca, ionized, bld 4.52 4.50 - 5.10 mg/dL Blood 01/09/2025 6:20 AM CDT 01/09/2025 7:08 AM CDT Theresa Lamb MD LAB BLOOD ORDERABLES Final R esult Performing Organization Address [facility] Co de Phone Number JEFF BRODERICK [address] [address] [facility] [employer] [place], [place] [id number] * eGFR (01/09/2025 6:20 AM CDT) eGFR [...] NP LAB BLOOD ORDERABLES Fin al Result [facility] [address] [address] Department of Laboratories [place] [phone] * (ABNORMAL) CBC without differential (01/09/2025 6:20 AM CDT) WBC 10.74(H) 3.80 - 9.90 K/cumm Hgb 9.7(L) 13.0 - 17.5 g/dL [facility] Hct 32.0(L) 38.9 - 50.3 % [facility] Plt 279 150 - 400 K/cumm [facility] MPV 8.8(L) 9.1 - 12.3 fL [facility] RBC 3.70(L) 4.30 - 5.80 M/cumm [facility] MCV 86.5 81.3 - 96.4 fL [facility] MCH 26.2(L) 27.1 - 33.3 pg [facility] MCHC 30.3(L) 32.3 - 35.7 g/dL [facility] RDW CV 13.4 11.1 - 14.9 % [facility] RDW SD 42.2 35.7 - 48.1 fL [facility] NRBC abs 0.00 0.00 - 0.01 K/cumm [facility] Blood 01/09/2025 6:20 AM CDT 01/09/2025 7:11 AM CDT Theresa Lamb MD LAB BLOOD ORDERABLES Final R esult Performing Organization Address [facility] Co de Phone Number [facility] [address] [address] [place] [address] * Magnesium (01/09/2025 6:20 AM CDT) Magnesium 1.9 1.4 - 2.5 mg/dL Blood 01/09/2025 6:20 AM CDT 01/09/2025 7:11 AM CDT Theresa Lamb MD LAB BLOOD ORDERABLES Final R esult Performing Organization Address [facility] de Phone Number [facility] [address] [address] Department [place] [address] * (ABNORMAL) Renal function panel (01/09/2025 6:20 AM CDT) Sodium 135 135 - 145 mmol/L Potassium, pl 3.9 3.3 - 4.9 mmol/L [facility] Chloride 101 97 - 110 mmol/L [facility] CO2 24 22 - 32 mmol/L [facility] Anion gap 10 2 - 15 mmol/L [facility] BUN 17 6 - 25 mg/dL [facility] Creatinine 0.75(L) 0.80 - 1.30 mg/dL [facility] Glucose 195 70 - 199 mg/dL [facility] Comment: Interpretive Data Fasting glucose >/= [...] CH Albumin 3.3(L) 3.5 - 5.0 g/dL [facility] Blood 01/09/2025 6:20 AM CDT 01/09/2025 7:11 AM CDT us Theresa Lamb MD LAB BLOOD ORDERABLES Final R esult JEFF [address] [address] [place] [address] * XR Chest 1 View (01/09/2025 6:15 [...] 161 70 - 199 mg/dL POC Performer [id number] JEFF BRODERICK Blood 01/08/2025 8:21 PM CDT 01/08/2025 8:21 PM CDT Génesis Delatorre MD LAB POCT ORDERABLES - DEVICE Final Result SAMANTHAROGER DAVIE [address] [address] [place] [address] * XR Chest 1 Vw Portable (01/08/2025 [...] PROCEDURES F inal Result Performing Organization Address City/[facility]/ZIP Co de Phone Number [facility] * (ABNORMAL) POCT glucose (01/08/2025 11:56 AM CDT) Glucose, POC 222(H) 70 - 199 mg/dL POC Performer [id number] JEFF Blood 01/08/2025 11:5 6 AM CDT 01/08/2025 11:56 AM CDT Theresa Lamb MD LAB POCT ORDERABLES - DEVICE Final Result Performing Organization Address [facility] Co de Phone Number [facility] [address] [address] [place] [address] * Infection Prevention MRSA Only (Staphylococcus aureus) PCR Nasal (01/08/2025 8:06 AM CDT) PCR Scrn, Methicillin resistant Staphylococcus aureus (MRSA) Not Detected Not Detected CH Comment: Interpretive Data Testing performed using Nucleic Acid Amplification with the 1CloudStar Xpert MRSA NxG Assay. This assay detects target DNA from mecA, mecC and the SCCmec insertion site of Staphylococcus aureus using Real-Time PCR and has been cleared by the FDA. Performance characteristics have been verified by the [facility]. Current Interpretive Data was last revised on 2023 Nasal 01/08/2025 8:06 AM CDT 01/08/2025 8:11 AM CDT us Theresa Lamb MD LAB MICROBIOLOGY - GENERAL O RDERABLES Final Result Performing Organization Address [facility] Co de Phone Number JEFF BRODERICK [address] [address] [place] [address] CH * (ABNORMAL) POCT glucose (01/08/2025 8:03 AM CDT) Glucose, POC 237(H) 70 - 199 mg/dL POC Performer [id number] [facility] Blood 01/08/2025 8:03 AM CDT 01/08/2025 8:03 AM CDT Génesis Delatorre MD LAB POCT ORDERABLES - DEVICE Final Result Performing Organization Address [facility] Co de Phone Number JEFF BRDOERICK [address] [address] [place] [address] * Critical Care (01/08/2025 7:02 AM CDT) [...] plan with the ICU team and other medical/healthcare market consultant staff, making frequent assessments and decisions [...] 163 70 - 199 mg/dL POC Performer [id number] JEFF Blood 01/08/2025 5:06 AM CDT 01/08/2025 5:06 AM CDT us Theresa Lamb MD LAB POCT ORDERABLES - DEVICE Final Result Performing Organization Address [facility] Co de Phone Number JEFF BRODERICK [address] [address] Galarza [place] [place] [address] * eGFR (01/08/2025 12:33 AM CDT) eGFR [...] ORDERABLES Fin al Result Performing Organization Address [facility]/ZIP Co de Phone Number JEFF BRODERICK [address] [address] [place] [address] * Magnesium (01/08/2025 12:33 AM CDT) Magnesium 1.9 1.4 - 2.5 mg/dL Blood 01/08/2025 12:3 3 AM CDT 01/08/2025 12:33 AM CDT us Theresa Lamb MD LAB BLOOD ORDERABLES Final R esult Performing Organization Address [facility]/ZIP Co de Phone Number JEFF BRODERICK [address] [place] [address] * (ABNORMAL) Renal function panel (01/08/2025 12:33 [...] [facility] Albumin 3.4(L) 3.5 - 5.0 g/dL [facility] Blood 01/08/2025 12:3 3 AM CDT 01/08/2025 12:33 AM CDT Theresa Lamb MD LAB BLOOD ORDERABLES Final R esult Performing Organization Address [facility]/ZIP Co de Phone Number JEFF BRODERICK [address] [address] Department [employer] [place], [place] [phone] * (ABNORMAL) POCT glucose (01/08/2025 12:26 AM CDT) Glucose, POC 232(H) 70 - 199 mg/dL POC Performer [id number] JEFF Blood 01/08/2025 12:2 6 AM CDT 01/08/2025 12:26 AM CDT Génesis Delatorre MD LAB POCT ORDERABLES - DEVICE Final Result Performing Organization Address [facility] de Phone Number SAMANTHAROGER [address] [address] Department [employer] [place], [place] [id number] * (ABNORMAL) Troponin T high-sensitivity (01/08/2025 12:20 [...] ORDERABLES Fin al Result Performing Organization Address [facility] de Phone Number SAMANTHAROGER [address] [address] [place] [address] * Calcium, ionized, whole blood (01/08/2025 12:20 AM CDT) Ca, ionized, bld 4.73 4.50 - 5.10 mg/dL Blood 01/08/2025 12:2 0 AM CDT 01/08/2025 12:35 AM CDT Theresa Lamb MD LAB BLOOD ORDERABLES Final R esult Performing Organization Address [facility] de Phone Number SAMANTHAROGER [address] [address] [place] [address] * (ABNORMAL) CBC without differential (01/08/2025 12:20 [...] RDW CV 13.3 11.1 - 14.9 % [facility] RDW SD 41.7 35.7 - 48.1 fL [facility] NRBC abs 0.00 0.00 - 0.01 K/cumm [facility] Blood 01/08/2025 12:2 0 AM CDT 01/08/2025 12:39 AM CDT us Theresa Lamb MD LAB BLOOD ORDERABLES Final R esult [facility] [address] [address] [facility] [place] [address] * (ABNORMAL) POCT glucose (01/07/2025 9:55 PM CDT) Glucose, POC 249(H) 70 - 199 mg/dL POC Performer [id number] [facility] Blood 01/07/2025 9:55 PM CDT 01/07/2025 9:55 PM CDT Theresa Lamb MD LAB POCT ORDERABLES - DEVICE Final Result JEFF [address] [address] [place] [address] * Critical Care (01/07/2025 8:43 PM CDT) [...] plan with the patient's team and other medical/healthcare market consultant staff. This time was in addition to and separate from care provided by other practitioners on this day of service. us Heri Tovar NP IN CLINIC/BEDSIDE ORDER BEATRIZ Final Result * (ABNORMAL) POCT glucose (01/07/2025 7:54 PM CDT) Glucose, POC 266(H) 70 - 199 mg/dL POC Performer [id number] JEFF Blood 01/07/2025 7:54 PM CDT 01/07/2025 7:54 PM CDT us Theresa Lamb MD LAB POCT ORDERABLES - DEVICE Final Result JEFF BRODERICK [address] [address] [place] [address] * (ABNORMAL) Troponin T high-sensitivity (01/07/2025 6:24 [...] ORDERABLES Fin al Result Performing Organization Address [facility] Co de Phone Number JEFF BRODERICK [address] [address] [place] [address] * Type and screen (01/07/2025 6:24 PM CDT) Antonio, indirect Negative ABO Rh A Negative [facility] Blood 01/07/2025 6:24 PM CDT 01/07/2025 6:42 PM CDT Narrative [facility] - 01/07/2025 7:44 PM CDT Has the patient had Daratumumab or Isatuximab in the past 6 months?->Unknown Fran Mcgrath NP LAB BLOOD BANK TEST ORDE RABLES Final Result Performing Organization Address [facility] de Phone Number SAMANTHAROGER [address] [address] [place] [address] * Urinalysis reflex to microscopic (01/07/2025 5:32 [...] tendency for uric acid stone formation. Source: [facility] Current Interpretive Data was last revised on 2017 Protein, ur ql Trace Negative [facility] Glucose, ur ql Negative Negative [facility] Ketones, ur Trace Negative [facility] Bilirubin, ur Negative Negative [facility] Blood, ur Negative Negative [facility] Urobilinogen, ur <2.0 <2.0 mg/dL [facility] Nitrite, ur Negative Negative [facility] Leukocyte esterase, ur Negative Negative [facility] UA reflex comment Reflex conditions for microscopic UA not met. [facility] Urine 01/07/2025 5:32 PM CDT 01/07/2025 5:42 PM CDT Fran Mcgrath NP LAB URINE ORDERABLES Fin al Result Performing Organization Address [facility] Co de Phone Number JEFF BRODERICK [address] [address] [place] [address] * Strep pneumoniae antigen, urine Urine (01/07/2025 5:32 PM CDT) Pathologist [facility] S. pneumoniae Ag Negative Negative Comment: A [...] AL ORDERABLES Final Result Performing Organization Address [facility] Co de Phone Number JEFF BRODERICK [address] [address] Department [place] [address] * Legionella antigen Urine (01/07/2025 5:32 PM CDT) Pathologist [facility] Legionella Ag Negative Negative Comment: Interpretive Data This test detects only Legionella pneumophila serogroup 1 antigen. Current interpretive data was last revised on 2019. Urine 01/07/2025 5:32 PM CDT 01/07/2025 5:42 PM CDT Fran Mcgrath CARTOGRAPHY TEACHER LAB MICROBIOLOGY - [facility] AL ORDERABLES Final Result [facility] [address] [address] [place] [address] * (ABNORMAL) Respiratory pathogen panel Nasopharyngeal (01/07/2025 5:30 PM CDT) [facility] Influenza A RNA Not Detected Not Detected Influenza B RNA Not Detected Not Detected [facility] RSV RNA Not Detected Not Detected [facility] COVID-19 RNA Not Detected Not Detected [facility] Coronavirus 229E RNA Not Detected Not Detected [facility] Coronavirus HKU1 RNA Not Detected Not Detected [facility] Coronavirus NL63 RNA Not Detected Not Detected [facility] Coronavirus OC43 RNA Not Detected Not Detected [facility] Adenovirus DNA Not Detected Not Detected [facility] Metapneumovirus RNA Detected(A) Not Detected [facility] Rhinovirus/Enterov irus RNA Not Detected Not Detected [facility] Parainfluenza 1 RNA Not Detected Not Detected [facility] Parainfluenza 2 RNA Not Detected Not Detected [facility] Parainfluenza 3 RNA Not Detected Not Detected [facility] Parainfluenza 4 RNA Not Detected Not Detected [facility] B. pertussis DNA Not Detected Not Detected [facility] B. parapertussis DNA Not Detected Not Detected [facility] C. pneumoniae DNA Not Detected Not Detected [facility] M. pneumoniae DNA Not Detected Not Detected [facility] Comment: Interpretive Data The [employer] FilmArray Respiratory Panel (RP2.1) assay is a [...] assay has FDA clearance for testing of CARTOGRAPHY TEACHER swabs. The performance characteristics of this assay have been determined by [facility]. Current interpretive data was last revised on 2021. Nasopharyngeal 01/07/2025 5: 30 PM CDT 01/07/2025 6:35 PM CDT Shanice AGUILAR - 01/07/2025 8:39 PM CDT Is the Patient experiencing symptoms consistent with COVID?->Unknown Surveillance testing for transplant patient?->No Fran Mcgrath CARTOGRAPHY TEACHER LAB MICROBIOLOGY - GENER AL ORDERABLES Final Result JEFF BRODERICK [address] [address] [place] [address] * Critical Care (01/07/2025 4:59 [...] plan with the ICU team and other medical/healthcare market consultant staff, making frequent assessments and decisions [...] 01/07/2025 5:10 PM CDT us Fran Mcgrath CARTOGRAPHY TEACHER LAB BLOOD ORDERABLES Fin al Result JEFF BRODERICK [address] [address] [facility] [place] [address] * Sepsis Lactate w/ Reflex (01/07/2025 4:45 PM CDT) Pathologist [facility] Sepsis Lactate 1.9 0.7 - 2.0 mmol/L Blood 01/07/2025 4:45 PM CDT 01/07/2025 5:10 PM CDT Sindhu Whittington MD LAB BLOOD ORDERABLES Iris l Result JEFF BRODERICK [address] [address] [facility] [place] [address] * Lactate (01/07/2025 4:45 PM CDT) Pathologist [facility] Lactate 1.9 0.7 - 2.0 mmol/L Blood 01/07/2025 4:45 PM CDT 01/07/2025 5:10 PM CDT Fran Mcgrath CARTOGRAPHY TEACHER LAB BLOOD ORDERABLES Fin al Result Performing Organization Address [facility] Co de Phone Number JEFF BRODERICK [address] [address] [facility] [place] [address] * Calcium, ionized, whole blood (01/07/2025 4:45 PM CDT) Pathologist [facility] Ca, ionized, bld 4.62 4.50 - 5.10 mg/dL Blood 01/07/2025 4:45 PM CDT 01/07/2025 5:10 PM CDT Fran Mcgrath CARTOGRAPHY TEACHER LAB BLOOD ORDERABLES Fin al Result Performing Organization Address [facility]/ZIP Co de Phone Number JEFF BRODERICK [address] [address] [facility] [employer] [place], [place] [address] * eGFR (01/07/2025 4:45 PM CDT) Pathologist [facility] eGFR >90 >=60 mL/min/1. 73 m2 Comment: [...] LAB BLOOD ORDERABLES Fin al Result JEFF [address] [address] [place] [address] * (ABNORMAL) Pro B-type natriuretic [...] ORDERABLES Fin al Result Performing Organization Address [facility] de Phone Number [facility] [address] [address] [employer] [place], [place] [phone] * Thyroid Function Inyo (01/07/2025 4:45 PM CDT) Pathologist [facility] TSH 0.75 0.30 - 4.20 mcIUnit/mL Blood 01/07/2025 4:45 PM CDT 01/07/2025 5:10 PM CDT Fran Mcgrath CARTOGRAPHY TEACHER LAB BLOOD ORDERABLES Fin al Result Performing Organization Address [facility] de Phone Number [facility] [place] [address] [place] [address] * aPTT (01/07/2025 4:45 PM CDT) aPTT 32 28 - 38 sec Comment: Interpretive Data Heparin therapeutic range: 66.0 - 100.0 seconds. Range based on correlation with therapeutic heparin activity range of 0.3 - 0.7 Units/mL. Current interpretive data was last revised on 2023. Blood 01/07/2025 4:45 PM CDT 01/07/2025 5:10 PM CDT Fran Mcgrath CARTOGRAPHY TEACHER LAB BLOOD ORDERABLES Fin al Result Performing Organization Address [facility] Co de Phone Number JEFF [address] [address] [place] [address] * (ABNORMAL) Protime-INR (01/07/2025 4:45 PM CDT) [...] CDT 01/07/2025 5:10 PM CDT Fran Mcgrath CARTOGRAPHY TEACHER LAB BLOOD ORDERABLES Fin al Result Performing Organization Address [facility] Co de Phone Number [facility] [address] [address] [place] [address] * Fibrinogen (01/07/2025 4:45 PM CDT) Fibrinogen 359 170 - 400 mg/dL Blood 01/07/2025 4:45 PM CDT 01/07/2025 5:10 PM CDT Fran Mcgrath CARTOGRAPHY TEACHER LAB BLOOD ORDERABLES Fin al Result JEFF [address] [address] [place] [address] * (ABNORMAL) CBC without differential (01/07/2025 4:45 PM CDT) [facility] WBC 9.43 3.80 - 9.90 K/cumm Hgb 9.9(L) 13.0 - 17.5 g/dL [facility] Hct 31.6(L) 38.9 - 50.3 % [facility] Plt 306 150 - 400 K/cumm [facility] MPV 8.7(L) 9.1 - 12.3 fL [facility] RBC 3.72(L) 4.30 - 5.80 M/cumm [facility] MCV 84.9 81.3 - 96.4 fL [facility] MCH 26.6(L) 27.1 - 33.3 pg [facility] MCHC 31.3(L) 32.3 - 35.7 g/dL [facility] RDW CV 13.4 11.1 - 14.9 % [facility] CH RDW SD 41.4 35.7 - 48.1 fL [facility] NRBC abs 0.00 0.00 - 0.01 K/cumm [facility] Blood 01/07/2025 4:45 PM CDT 01/07/2025 5:12 PM CDT Fran Mcgrath CARTOGRAPHY TEACHER LAB BLOOD ORDERABLES Fin al Result Performing Organization Address [facility] de Phone Number [facility] [address] [address] [facility] [place] [address] * Uric acid (01/07/2025 4:45 PM CDT) [facility] Uric acid 4.0 3.0 - 8.0 mg/dL Blood 01/07/2025 4:4 5 PM CDT 01/07/2025 5:10 PM CDT Fran Mcgrath CARTOGRAPHY TEACHER LAB BLOOD ORDERABLES Fin al Result Performing Organization Address [facility] de Phone Number [facility] [address] [address] [facility] [place] [address] * Phosphorus (01/07/2025 4:45 PM CDT) Phosphorus, pl 2.7 2.3 - 4.5 mg/dL Blood 01/07/2025 4:45 PM CDT 01/07/2025 5:10 PM CDT Fran Mcgrath CARTOGRAPHY TEACHER LAB BLOOD ORDERABLES Fin al Result Performing Organization Address [facility] Co de Phone Number JEFF BRODERICK [address] [address] [facility] [place] [address] * Magnesium (01/07/2025 4:45 PM CDT) Pathologist [facility] Magnesium 1.7 1.4 - 2.5 mg/dL Blood 01/07/2025 4:45 PM CDT 01/07/2025 5:10 PM CDT Fran Mcgrath NP LAB BLOOD ORDERABLES Fin al Result Performing Organization Address [facility] Phone Number JEFF BRODERICK [address] [address] [facility] [place] [address] * Blood gas, venous (01/07/2025 4:45 PM [...] CDT 01/07/2025 5:10 PM CDT Fran Mcgrath CARTOGRAPHY TEACHER LAB BLOOD ORDERABLES Fin al Result Performing Organization Address [facility] de Phone Number JEFF BRODERICK [address] [address] [facility] [place] [address] * Creatine kinase (CK), total (01/07/2025 4:45 PM CDT) Pathologist [facility] CK 52 40 - 300 Units/L Blood 01/07/2025 4:45 PM CDT 01/07/2025 5:10 PM CDT Fran Mcgrath CARTOGRAPHY TEACHER LAB BLOOD ORDERABLES Fin al Result Performing Organization Address [facility] Co de Phone Number SAMANTHAROGER BRODERICK [address] [address] [facility] [place] [address] * Creatine kinase (CK), total (01/07/2025 4:45 PM CDT) [facility] CK 51 40 - 300 Units/L Blood 01/07/2025 4:45 PM CDT 01/07/2025 5:10 PM CDT Fran Mcgrath CARTOGRAPHY TEACHER LAB BLOOD ORDERABLES Fin al Result Performing Organization Address [facility] Co de Phone Number JEFF DAVIE [address] [address] [facility] [place] [address] * Bilirubin, direct (01/07/2025 4:45 PM CDT) [facility] Bilirubin, direct 0.1 0.1 - 0.3 mg/dL Blood 01/07/2025 4:45 PM CDT 01/07/2025 5:10 PM CDT Fran Mcgrath CARTOGRAPHY TEACHER LAB BLOOD ORDERABLES Fin al Result Performing Organization Address [facility] Co de Phone Number SAMANTHAROGER [address] [address] [facility] [place] [address] * (ABNORMAL) Comprehensive metabolic panel (01/07/2025 4:45 PM CDT) [facility] Sodium 138 135 - 145 mmol/L Potassium, pl 4.3 3.3 - 4.9 mmol/L [facility] Chloride 104 97 - 110 mmol/L [...] LAB BLOOD ORDERABLES Fin al Result JEFF [address] [address] [place] [address] * VA ARTL CATHJ/CANNULJ MNTR/TRANSFUSION SPX PRQ (01/07/2025 3:30 PM CDT) Narrative Fran Mcgrath NP - 01/07/2025 3:30 PM CDT Fran Mcgrath NP 01/26/2025 5:55 PM Arterial Line Insertion Date/Time: 01/07/2025 3:30 PM Performed by: Fran Mcgrath NP Authorized by: Fran Mcgrath NP [place] Protocol: RN Notified of Procedure: yes Informed [...] handwashing, mask, towels and sterile probe cover Hsen's test normal?: Yes Single percutaneous needle puncture: Yes Seldinger technique used: Yes Number of attempts: 2 Placement confirmed with arterial waveform: No Post-procedure: Dressing applied Post-procedure CMS: Normal Patient tolerance: Patient tolerated the procedure well with no immediate complications Complications: vasospasm I personally performed the above procedure which is separate from my critical care time Unable to place [place] due to Vasospasm Cardiogenic shock, bradycardia Post [...] PM CDT Narrative 01/07/2025 3:24 [place] [address] Echocardiogram Report Patient Name: SHAWN SHULTZ BRI : 1950 Study Date: 01/07/2025 1:26:17 PM Gender: M Tech: JELANI Location: [id number] Ref Provider: FRAN MCGRATH Height(Cm): 168 BSA: [...] Procedure Note Isidro Carvalho MD - 01/07/2025 [place] [address] Echocardiogram Report Patient Name: SHAWN SHULTZ BRI : 1950 Study Date: 01/07/2025 1:26:17 PM Gender: M Tech: Location: [address] Provider: FRAN MCGRATH Height(Cm): 168 BSA: [...] CDT) 01/07/2025 2:15 PM CDT Narrative [facility] - 01/07/2025 2:36 PM CDT Vent Rate: 96 bpm RR Interval: 625 msec VA Interval: 234 msec QRS Duration: 101 msec QT Interval: 367 msec QTC Interval: 420 msec P-R-T [place]: 24 - 119 - 97 degrees IMPRESSION: SINUS RHYTHM WITH FIRST DEGREE AV BLOCK INCOMPLETE RIGHT BUNDLE BRANCH BLOCK RIGHT VENTRICULAR HYPERTROPHY NONSPECIFIC ST \T\ T-WAVE ABNORMALITY Electronically Signed By: Washington Díaz MD, [facility] us Fran Mcgrath NP ECG ORDERABLES Final Re sult [facility] * X-ray chest 1 view (Portable) [...] signed by: Zenon Wing M.D. Fran Mcgrath CARTOGRAPHY TEACHER IMG XR PROCEDURES Final Result * (ABNORMAL) POCT glucose (01/07/2025 12:53 PM CDT) Glucose, POC 212(H) 70 - 199 mg/dL POC Performer [id number] JEFF BRODERICK Blood 01/07/2025 12:5 3 PM CDT 01/07/2025 12:53 PM CDT Génesis Delatorre MD LAB POCT ORDERABLES - DEVICE Final Result JEFF BRODERICK [address] [address] Department [place] [address] * (ABNORMAL) Troponin T high-sensitivity [...] [facility] ([place]) Comment:Critical Result call ed by [email or web address] at 2025-01-07 11:19:30. Result Read Back by Michael Mcnulty RN ER Trop T hs interp Significa nt(C) [facility] ([place]) Comment:Critical Result call ed by [email or web address] at 2025-01-07 11:19:30. Result Read Back by Michael Mcnulty RN ER Blood 01/07/2025 10:2 8 AM CDT 01/07/2025 10:33 AM CDT us Jt Mejia MD LAB BLOOD ORDERABLE S Final Result JEFF [facility] ([place]) 1 [facility] Department [place] [address] * VA CRITICAL CARE ILL/INJURED PATIENT INIT [...] POCT glucose (01/07/2025 10:12 AM CDT) Pathologist [facility] Glucose, POC 219(H) 70 - 199 mg/dL Blood 01/07/2025 10:1 2 AM CDT 01/07/2025 10:12 AM CDT us Jomar No MD LAB POCT ORDERABLES - NOAH CE Final Result JEFF [facility] [place]) [address] [place] [address] Department [place] [address] * TRANSTHORACIC ECHO (TTE) LIMITED/FOLLOW UP WO DOPPLER/CF WO CONTRAST (01/07/2025 9:32 AM CDT) Pathologist [facility] Estimated EF 65 % CONS SCIMAGE Anatomical Region Laterality Modality Ultrasound 01/07/2025 9:09 AM CDT Narrative 01/07/2025 9:54 AM CDT [address] [address] Limited Echocardiogram Report Patient Name: SHAWN SHULTZ [...] Procedure Note Jose Godoy MD - 01/07/[address] [address] Limited Echocardiogram Report Patient Name: SHAWN SHULTZ [...] Lyla Salamanca M.D. FT: FT Report ID: [id number] Reading Location: [id number] Procedure Note Lyla Roberson MD - 01/07/2025 [...] Lyla Salamanca M.D. FT: FT Report ID: [id number] Reading Location: [id number] Jt Meija MD IMG XR PROCEDURES F inal Result * (ABNORMAL) Sepsis Lactate w/ Reflex (01/07/2025 8:58 AM CDT) Sepsis Lactate 3.9(H) 0.7 - 2.0 mmol/L Blood 01/07/2025 8:58 AM CDT 01/07/2025 9:01 AM CDT us Jt Mejia MD LAB BLOOD ORDERABLE S Final Result JEFF IGLESIAS [place]) 1 [facility] [place] [address] * (ABNORMAL) Troponin T high-sensitivity series (baseline, [...] BLOOD ORDERABLE S Final Result JEFF [facility] ([place]) 1 [facility] [place] [address] * eGFR (01/07/2025 8:40 AM CDT) eGFR [...] BLOOD ORDERABLE S Final Result JEFF [facility] ([place]) 1 [facility] Department [place] [address] * (ABNORMAL) Differential, auto (01/07/2025 8:40 AM CDT) Neutrophil abs 4.48 1.50 - 6.50 K/cumm Imm gran abs 0.02 0.00 - 0.10 K/cumm [facility] ([place]) Lymphocyte abs 2.42 0.80 - 3.30 K/cumm [facility] ([place]) Monocyte abs 0.85(H) 0.20 - 0.80 K/cumm [facility] ([place]) Eosinophil abs 0.29 0.00 - 0.50 K/cumm [facility] ([place]) Basophil abs 0.07 0.00 - 0.10 K/cumm [facility] ([place]) Neutrophil pct 55.0 % [facility] ([place]) Comment: Interpretive Data Percent cell count reference [...] S Final Result JEFF [facility] ([place]) 1 [facility] Department [place] [address] * (ABNORMAL) CBC with auto differential (01/07/2025 [...] RDW SD 41.5 35.7 - 48.1 fL [facility] ([place]) NRBC abs 0.00 0.00 - 0.01 K/cumm [facility] ([place]) Blood 01/07/2025 8:40 AM CDT 01/07/2025 8:45 AM CDT Jt Mejia MD LAB BLOOD ORDERABLE S Final Result Performing Organization Address City/[facility]/ZIP Co de Phone Number [facility] ([place]) 1 [facility] [place] [address] * Magnesium (01/07/2025 8:40 AM CDT) [facility] Magnesium 1.7 1.4 - 2.5 mg/dL Blood 01/07/2025 8:40 AM CDT 01/07/2025 9:44 AM CDT Jt Mejia MD LAB BLOOD ORDERABLE S Final Result Performing Organization Address [facility] de Phone Number [facility] ([place]) 1 [facility] [place] [address] * (ABNORMAL) Comprehensive metabolic panel (01/07/2025 8:40 AM CDT) Sodium 138 135 - 145 mmol/L Potassium, pl 3.4 3.3 - 4.9 mmol/L [facility] ([place]) Chloride 102 97 - 110 mmol/L [facility] ([place]) CO2 20(L) 22 - 32 mmol/L [facility] ([place]) Anion gap 16(H) 2 - 15 mmol/L [facility] ([place]) BUN 11 6 - 25 mg/dL [facility] ([place]) Creatinine 0.79(L) 0.80 - 1.30 mg/dL [facility] ([place]) Glucose 248(H) 70 - 199 mg/dL [facility] ([place]) Comment: Interpretive Data Fasting [...] S Final Result JEFF [facility] ([place]) 1 [facility] Department [place] [address] * ECG 12 lead (01/07/2025 8:39 AM CDT) 01/07/2025 8:39 AM CDT Narrative [facility] - 01/07/2025 9:28 AM CDT Vent Rate: 91 bpm RR Interval: 654 msec VA Interval: 238 msec QRS Duration: 111 msec QT Interval: 394 msec QTC Interval: 443 msec P-R-T [place]: 7 - 132 - 71 degrees IMPRESSION: [...] Mejia MD ECG ORDERABLES Fin al Result [facility] * XR Chest Pa Lateral 2 [...] 01/01/2025 7:25 PM - Electronically signed by Mier Ascencio M.D. KT: KT Report ID: [id number] Reading Location: [id number] Procedure Note Meir Ascencio MD - 01/01/2025 [...] Meir Ascencio M.D. KT: KT Report ID: [id number] Reading Location: [place] [address] Nayely Sharp CARTOGRAPHY TEACHER IMG XR PROCEDURES Fin al Result * [...] by: Vick Cruz M.D. us Jose Vega CARTOGRAPHY TEACHER IMG XR PROCEDURES Final Res ult * [...] AM CDT 12/26/2024 4:04 PM CDT Jose Vgea NP LAB BLOOD ORDERABLES Final Result [facility] [place] [address] * (ABNORMAL) Differential, auto (12/26/2024 11:57 AM CDT) Neutrophil abs 5.27 1.50 - 6.50 K/cumm Imm gran abs 0.06 0.00 - 0.10 K/cumm [facility] Lymphocyte abs 1.07 0.80 - 3.30 K/cumm [facility] Monocyte abs 0.87(H) 0.20 - 0.80 K/cumm [facility] Eosinophil abs 0.33 0.00 - 0.50 K/cumm [facility] Basophil abs 0.07 0.00 - 0.10 K/cumm [facility] Neutrophil pct 68.7 % [facility] Comment: Interpretive Data Percent cell count reference ranges are not reported, since discordance with absolute values may lead to misinterpretation of CBC data. Current Interpretive Data was last revised on 2017. Imm gran pct 0.8 % [facility] Comment: Interpretive Data Percent cell count reference ranges are not reported, since discordance with absolute values may lead to misinterpretation of CBC data. Current Interpretive Data was last revised on 2017. Lymphocyte pct 14.0 % [facility] Comment: Interpretive Data Percent cell count reference ranges are not reported, since discordance with absolute values may lead to misinterpretation of CBC data. Current Interpretive Data was last revised on 2017. Monocyte pct 11.3 % [facility] Comment: Interpretive Data Percent cell count reference ranges are not reported, since discordance with absolute values may lead to misinterpretation of CBC data. Current Interpretive Data was last revised on 2017. Eosinophil pct 4.3 % [facility] Comment: Interpretive Data Percent cell count reference ranges are not reported, since discordance with absolute values may lead to misinterpretation of CBC data. Current Interpretive Data was last revised on 2017. Basophil pct 0.9 % [facility] Comment: Interpretive Data Percent cell count reference ranges are not reported, since discordance with absolute values may lead to misinterpretation of CBC data. Current Interpretive Data was last revised on 2017. Blood 12/26/2024 11:5 7 AM CDT 12/26/2024 4:02 PM CDT us Jose Vega CARTOGRAPHY TEACHER LAB BLOOD ORDERABLES Final Result [facility] Department [place] [address] * (ABNORMAL) CBC with auto differential (12/26/2024 11:57 AM CDT) WBC 7.67 3.80 - 9.90 K/cumm Hgb 10.3(L) 13.0 - 17.5 g/dL [facility] Hct 32.4(L) 38.9 - 50.3 % [facility] Plt 447(H) 150 - 400 K/cumm [facility] MPV 8.3(L) 9.1 - 12.3 fL [facility] RBC 3.65(L) 4.30 - 5.80 M/cumm [facility] MCV 88.8 81.3 - 96.4 fL [facility] MCH 28.2 27.1 - 33.3 pg [facility] MCHC 31.8(L) 32.3 - 35.7 g/dL [facility] RDW CV 14.5 11.1 - 14.9 % [facility] RDW SD 46.3 35.7 - 48.1 fL [facility] NRBC abs 0.00 0.00 - 0.01 K/cumm [facility] Blood 12/26/2024 11:5 7 AM CDT 12/26/2024 4:02 PM CDT us Jose Vega NP LAB BLOOD ORDERABLES Final Result [facility] Department [place] [address] * (ABNORMAL) Comprehensive metabolic panel (12/26/2024 11:57 AM CDT) Pathologist [facility] Sodium 142 135 - 145 mmol/L Potassium, pl 3.8 3.3 - 4.9 mmol/L [facility] Chloride 105 97 - 110 mmol/L [facility] CO2 25 22 - 32 mmol/L [facility] Anion gap 12 2 - 15 mmol/L [facility] BUN 11 6 - 25 mg/dL [facility] Creatinine 0.75(L) 0.80 - 1.30 mg/dL [facility] Glucose 254(H) 70 - 199 mg/dL [facility] Comment: Interpretive Data Fasting glucose >/= 126 [...] 2022. Calcium 9.1 8.5 - 10.3 mg/dL [facility] Bilirubin, total <0.2 0.1 - 1.2 mg/dL [facility] Protein, pl 6.7 6.5 - 8.5 g/dL [facility] Albumin 3.7 3.5 - 5.0 g/dL [facility] Alk phos 93 40 - 130 Units/L [facility] ALT 21 7 - 55 Units/L [facility] AST 19 10 - 50 Units/L [facility] Blood 12/26/2024 11:5 7 AM CDT 12/26/2024 4:02 PM CDT us Jose Vega NP LAB BLOOD ORDERABLES Final Result [facility] Department [place] [address] * POCT glucose (12/21/2024 12:50 PM CDT) Glucose, POC 186 70 - 199 mg/dL POC Performer [id number] [facility] Blood 12/21/2024 12:5 0 PM CDT 12/21/2024 12:50 PM CDT us Theresa Lamb MD LAB POCT ORDERABLES - DEVICE Final Result Performing Organization Address City/[facility]/ZIP Co de Phone Number [facility] [address] [address] Department [place] [address] * (ABNORMAL) Urinalysis reflex to microscopic and culture Urine, clean voided (12/21/2024 12:22 PM CDT) Color, ur Yellow Yellow Clarity, ur Clear Clear [facility] Specific gravity, ur 1.033(H) 1.003 - 1.030 [facility] pH, urine 5.0 [facility] Comment: Interpretive Data U rine pH is affected by diet, medications, systemic acid-base disturbances, and renal tubular function. pH may affect urinary stone formation. For example, urine pH below 6.0 may help reduce the tendency for calcium phosphate stones and pH greater than 6.0 may reduce the tendency for uric acid stone formation. Source: [facility] Current Interpretive Data was last revised [...] LAB MICROBIOLOGY - GENERAL ORDERABLES Final Result [facility] [address] [address] Department [place] [address] * XR Chest PA Lateral 2 Views [...] Corey Limon II, D.O. us Jose Vega CARTOGRAPHY TEACHER IMG XR PROCEDURES Final Res ult * POCT glucose (12/21/2024 7:41 AM CDT) Glucose, POC 100 70 - 199 mg/dL POC Performer [id number] JEFF Blood 12/21/2024 7:41 AM CDT 12/21/2024 7:41 AM CDT us Theresa Lamb MD LAB POCT ORDERABLES - DEVICE Final Result [facility] [address] [address] Department [place] [address] * eGFR (12/21/2024 7:25 AM CDT) eGFR [...] CDT 12/21/2024 7:48 AM CDT Jose Vega CARTOGRAPHY TEACHER LAB BLOOD ORDERABLES Final Result JEFF [address] [place] [address] * (ABNORMAL) CBC without differential (12/21/2024 7:25 [...] CDT 12/21/2024 7:48 AM CDT Jose Vega CARTOGRAPHY TEACHER LAB BLOOD ORDERABLES Final Result JEFF [address] Department [place] [address] * (ABNORMAL) Basic metabolic panel (12/21/2024 7:25 AM CDT) Sodium 141 135 - 145 mmol/L Potassium, pl 3.0(L) 3.3 - 4.9 mmol/L [facility] Chloride 102 97 - 110 mmol/L [facility] CO2 26 22 - 32 mmol/L [facility] Anion gap 13 2 - 15 mmol/L [facility] BUN 28(H) 6 - 25 mg/dL [facility] Creatinine 0.85 0.80 - 1.30 mg/dL [facility] Glucose 100 70 - 199 mg/dL [facility] Comment: Interpretive Data Fasting glucose >/= [...] 2022. Calcium 9.2 8.5 - 10.3 mg/dL [facility] Blood 12/21/2024 7:25 AM CDT 12/21/2024 7:48 AM CDT us Jose Vega NP LAB BLOOD ORDERABLES Final Result JEFF BRODERICK [address] Department [employer] [place], [place] [id number] * POCT glucose (12/20/2024 9:19 PM CDT) Glucose, POC 134 70 - 199 mg/dL POC Performer [id number] [facility] Blood 12/20/2024 9:19 PM CDT 12/20/2024 9:19 PM CDT us Theresa Lamb MD LAB POCT ORDERABLES - DEVICE Final Result JEFF BRODERICK [address] [address] Department [place] [address] * POCT glucose (12/20/2024 5:21 PM CDT) Glucose, POC 196 70 - 199 mg/dL POC Performer [id number] [facility] Blood 12/20/2024 5:21 PM CDT 12/20/2024 5:21 PM CDT Theresa Lamb MD LAB POCT ORDERABLES - DEVICE Final Result Performing Organization Address [facility] Co de Phone Number JEFF BRODERICK [address] [address] [facility] [place] [address] * (ABNORMAL) POCT glucose (12/20/2024 4:03 PM CDT) Glucose, POC 216(H) 70 - 199 mg/dL POC Performer [id number] [facility] Blood 12/20/2024 4:03 PM CDT 12/20/2024 4:03 PM CDT Theresa Lamb MD LAB POCT ORDERABLES - DEVICE Final Result Performing Organization Address [facility] Co de Phone Number JEFF BRODERICK [address] [address] [facility] [place] [address] * (ABNORMAL) POCT glucose (12/20/2024 11:59 AM CDT) Glucose, POC 245(H) 70 - 199 mg/dL POC Performer [id number] [facility] Blood 12/20/2024 11:5 9 AM CDT 12/20/2024 11:59 AM CDT Theresa Lamb MD LAB POCT ORDERABLES - DEVICE Final Result Performing Organization Address [facility] Co de Phone Number JEFF BRODERICK [address] [address] [facility] [place] [address] * (ABNORMAL) POCT glucose (12/20/2024 7:31 AM CDT) Glucose, POC 209(H) 70 - 199 mg/dL POC Performer [id number] [facility] Blood 12/20/2024 7:31 AM CDT 12/20/2024 7:31 AM CDT us Theresa Lamb MD LAB POCT ORDERABLES - DEVICE Final Result Performing Organization Address [facility] Co de Phone Number JEFF BRODERICK [address] [address] Department [employer] [place], [place] [id number] * eGFR (12/20/2024 7:13 AM CDT) eGFR [...] BLOOD ORDERABLES Final Result Performing Organization Address City/[facility]/ZIP Co de Phone Number SAMANTHAROGER BRODERICK [address] [address] [place] [address] * (ABNORMAL) CBC without differential (12/20/2024 7:13 AM CDT) WBC 14.20(H) 3.80 - 9.90 K/cumm Hgb 11.5(L) 13.0 - 17.5 g/dL JEFF Hct 35.4(L) 38.9 - 50.3 % [facility] Plt 291 150 - 400 K/cumm [facility] MPV 8.9(L) 9.1 - 12.3 fL [facility] RBC 4.06(L) 4.30 - 5.80 M/cumm [facility] MCV 87.2 81.3 - 96.4 fL [facility] MCH 28.3 27.1 - 33.3 pg [facility] MCHC 32.5 32.3 - 35.7 g/dL [facility] RDW CV 13.5 11.1 - 14.9 % [facility] RDW SD 42.6 35.7 - 48.1 fL [facility] NRBC abs 0.00 0.00 - 0.01 K/cumm [facility] Blood 12/20/2024 7:13 AM CDT 12/20/2024 7:37 AM CDT Jose Vega NP LAB BLOOD ORDERABLES Final Result [facility] [address] [address] Department [place] [address] * (ABNORMAL) Basic metabolic panel (12/20/2024 7:13 AM CDT) Sodium 141 135 - 145 mmol/L Potassium, pl 3.5 3.3 - 4.9 mmol/L [facility] Chloride 100 97 - 110 mmol/L [facility] CO2 28 22 - 32 mmol/L [facility] Anion gap 13 2 - 15 mmol/L [facility] BUN 29(H) 6 - 25 mg/dL [facility] Creatinine 0.91 0.80 - 1.30 mg/dL [facility] Glucose 202(H) 70 - 199 mg/dL [facility] Comment: Interpretive Data Fasting glucose >/= [...] LAB BLOOD ORDERABLES Final Result JEFF BRODERICK [address] [address] Department [place] [address] * XR Chest 1 View (12/20/2024 5:57 [...] by: Ashlee Page M.D. us Jose Vega CARTOGRAPHY TEACHER IMG XR PROCEDURES Final Res ult * (ABNORMAL) POCT glucose (12/20/2024 3:04 AM CDT) Glucose, POC 225(H) 70 - 199 mg/dL POC Performer [id number] [facility] Blood 12/20/2024 3:04 AM CDT 12/20/2024 3:04 AM CDT Theresa Lamb MD LAB POCT ORDERABLES - DEVICE Final Result Performing Organization Address City/[facility]/ZIP Co de Phone Number JEFF BRODERICK [address] [address] [place] [address] * (ABNORMAL) POCT glucose (12/19/2024 8:49 PM CDT) Glucose, POC 328(H) 70 - 199 mg/dL POC Performer [id number] [facility] Blood 12/19/2024 8:49 PM CDT 12/19/2024 8:49 PM CDT Theresa Lamb MD LAB POCT ORDERABLES - DEVICE Final Result Performing Organization Address [facility] Co de Phone Number JEFF BRODERICK [address] [address] [facility] [place] [address] * (ABNORMAL) POCT glucose (12/19/2024 5:09 PM CDT) Glucose, POC 230(H) 70 - 199 mg/dL POC Performer [id number] CERNER Blood 12/19/2024 5:09 PM CDT 12/19/2024 5:09 PM CDT Theresa Lamb MD LAB POCT ORDERABLES - DEVICE Final Result Performing Organization Address City/[facility] Co de Phone Number JEFF BRODERICK [address] [address] [facility] [place] [address] * (ABNORMAL) POCT glucose (12/19/2024 12:37 PM CDT) Glucose, POC 279(H) 70 - 199 mg/dL POC Performer [id number] [facility] Blood 12/19/2024 12:3 7 PM CDT 12/19/2024 12:37 PM CDT Theresa Lamb MD LAB POCT ORDERABLES - DEVICE Final Result Performing Organization Address [facility] Co de Phone Number JEFF BRODERICK [address] [facility] [place] [address] * POCT glucose (12/19/2024 7:56 AM CDT) Glucose, POC 195 70 - 199 mg/dL POC Performer [id number] [facility] Blood 12/19/2024 7:56 AM CDT 12/19/2024 7:56 AM CDT Theresa Lamb MD LAB POCT ORDERABLES - DEVICE Final Result Performing Organization Address [facility] Phone Number JEFF BRODERICK [address] [facility] [place] [address] * XR Chest 1 View (12/19/2024 6:35 [...] NP LAB BLOOD ORDERABLES Final Result JEFF [address] [place] [address] * (ABNORMAL) aPTT (12/19/2024 5:44 AM CDT) [...] BLOOD ORDERABLES Final Result Performing Organization Address [facility] Co de Phone Number JEFF BRODERICK [address] [address] [facility] [place] [address] * Protime-INR (12/19/2024 5:44 AM CDT) Pathologist [facility] PT 12.8 9.7 - 13.0 sec INR [...] LAB BLOOD ORDERABLES Final Result JEFF BRODERICK [address] [address] [facility] [place] [address] * (ABNORMAL) CBC without differential (12/19/2024 5:44 [...] NRBC abs 0.00 0.00 - 0.01 K/cumm [facility] Blood 12/19/2024 5:44 AM CDT 12/19/2024 6:20 AM CDT Jose Vega CARTOGRAPHY TEACHER LAB BLOOD ORDERABLES Final Result [facility] [address] [place] [address] * (ABNORMAL) Basic metabolic panel (12/19/2024 5:44 AM CDT) Sodium 139 135 - 145 mmol/L Potassium, pl 3.3 3.3 - 4.9 mmol/L [facility] Chloride 99 97 - 110 mmol/L [facility] CO2 26 22 - 32 mmol/L [facility] Anion gap 14 2 - 15 mmol/L [facility] BUN 26(H) 6 - 25 mg/dL [facility] Creatinine 0.82 0.80 - 1.30 mg/dL [facility] Glucose 179 70 - 199 mg/dL [facility] Comment: Interpretive Data Fasting glucose >/= [...] 12/19/2024 6:14 AM CDT us Jose Vega CARTOGRAPHY TEACHER LAB BLOOD ORDERABLES Final Result Performing Organization Address [facility]/ZIP Co de Phone Number JEFF [address] [address] [place] [address] * POCT glucose (12/18/2024 8:41 PM CDT) Glucose, POC 135 70 - 199 mg/dL POC Performer [id number] [facility] Blood 12/18/2024 8:41 PM CDT 12/18/2024 8:41 PM CDT Theresa Lamb MD LAB POCT ORDERABLES - DEVICE Final Result Performing Organization Address [facility] de Phone Number JEFF BRODERICK [address] Department [place] [address] * (ABNORMAL) POCT glucose (12/18/2024 5:14 PM CDT) Glucose, POC 281(H) 70 - 199 mg/dL POC Performer [id number] [facility] Blood 12/18/2024 5:14 PM CDT 12/18/2024 5:14 PM CDT Theresa Lamb MD LAB POCT ORDERABLES - DEVICE Final Result Performing Organization Address [facility] Co de Phone Number JEFF BRODERICK [address] [address] Department [place] [address] * TRANSTHORACIC ECHO (TTE) LIMITED/FOLLOW UP W LTD DOPPLER/CF W CONTRAST (12/18/2024 1:45 PM CDT) LV EF 70 % CONS SCIMAGE Anatomical Region Laterality Modality Ultrasound 12/18/2024 1:07 PM CDT Narrative 12/18/2024 3:51 [place] [address] Limited Echocardiogram Report Patient Name: SHAWN SHULTZ BRIAN : 1950 Study Date: 12/18/2024 1:07:07 PM Gender: M Tech: JELANI Location: [id number] Ref Provider: NATALI WEBSTER Height(Cm): 168 BSA: [...] Procedure Note Ada Jaquez MD - 12/18/2024 [place] [address] Limited Echocardiogram Report Patient Name: SHAWN SHULTZ BRIAN : 1950 Study Date: 12/18/2024 1:07:07 PM Gender: M Tech: Location: [id number] Ref Provider: NATALI WEBSTER Height(Cm): 168 BSA: [...] 289(H) 70 - 199 mg/dL POC Performer [id number] [facility] Blood 12/18/2024 12:4 2 PM CDT 12/18/2024 12:42 PM CDT Theresa Lamb MD LAB POCT ORDERABLES - DEVICE Final Result JEFF [address] [facility] Department [place] [address] * POCT glucose (12/18/2024 8:01 AM CDT) Glucose, POC 169 70 - 199 mg/dL POC Performer [id number] [facility] Blood 12/18/2024 8:01 AM CDT 12/18/2024 8:01 AM CDT us Theresa Lamb MD LAB POCT ORDERABLES - DEVICE Final Result JEFF BRODERICK [address] [place] [address] * XR Chest PA Lateral 2 Views [...] Corey Limon II, D.O. us Jose Vega CARTOGRAPHY TEACHER IMG XR PROCEDURES Final Res ult * ECG 12 lead (12/18/2024 7:22 AM CDT) 12/18/2024 7:22 AM CDT Narrative [facility] [place] - 12/18/2024 9:03 AM CDT Vent Rate: 85 bpm RR Interval: 703 msec VA Interval: 200 msec QRS Duration: 112 msec QT Interval: 414 msec QTC Interval: 456 msec P-R-T [place]: 9 - 47 - 51 degrees IMPRESSION: SINUS RHYTHM INFERIOR MYOCARDIAL INFARCTION , OF INDETERMINATE AGE [40+ ms Q WAVE AND/OR ST/T ABNORMALITY IN II/aVF] ABNORMAL ECG Electronically Signed By: Jerad Jaquez MD us Theresa Lamb MD ECG ORDERABLES Final Result [facility] [employer] [facility] * eGFR (12/18/2024 5:56 AM CDT) eGFR [...] LAB BLOOD ORDERABLES Final Result JEFF BRODERICK [address] [address] [place] [address] * (ABNORMAL) CBC without differential (12/18/2024 5:56 AM CDT) [facility] WBC 12.01(H) 3.80 - 9.90 K/cumm Hgb 11.4(L) 13.0 - 17.5 g/dL [facility] Hct 33.9(L) 38.9 - 50.3 % [facility] Plt 202 150 - 400 K/cumm [facility] MPV 9.1 9.1 - 12.3 fL [facility] RBC 3.91(L) 4.30 - 5.80 M/cumm [facility] MCV 86.7 81.3 - 96.4 fL [facility] MCH 29.2 27.1 - 33.3 pg [facility] MCHC 33.6 32.3 - 35.7 g/dL [facility] RDW CV 13.8 11.1 - 14.9 % [facility] RDW SD 43.5 35.7 - 48.1 fL [facility] NRBC abs 0.00 0.00 - 0.01 K/cumm [facility] Blood 12/18/2024 5:56 AM CDT 12/18/2024 6:01 AM CDT Jose Vega NP LAB BLOOD ORDERABLES Final Result [facility] [address] [place] [address] * (ABNORMAL) Hemoglobin A1c (12/18/2024 5:56 AM CDT) [facility] Hgb A1C 7.4(H) 4.0 - 5.6 % Estimated Average Glucose 166 mg/dL [facility] Comment: The ADA recommends reporting an estimated Average Glucose (eAG) with all Hemoglobin A1c results using the equation derived from a study of 507 normal and diabetic adults. Minority populations were underrepresented and children were not included. (Diabetes Care 31:5639-2393, 2008). The eAG is not equivalent to a fasting glucose. Blood 12/18/2024 5:56 AM CDT 12/18/2024 6:01 AM CDT Jose Vega CARTOGRAPHY TEACHER LAB BLOOD ORDERABLES Final Result JEFF BRODERICK [address] [address] Department [place] [address] * (ABNORMAL) Basic metabolic panel (12/18/2024 5:56 AM CDT) Sodium 139 135 - 145 mmol/L Potassium, pl 3.6 3.3 - 4.9 mmol/L CERNER Chloride 101 97 - 110 mmol/L [facility] CH CO2 26 22 - 32 mmol/L [facility] CH Anion gap 12 2 - 15 mmol/L [facility] CH BUN 25 6 - 25 mg/dL [facility] Creatinine 0.75(L) 0.80 - 1.30 mg/dL [facility] CH Glucose 138 70 - 199 mg/dL [facility] Comment: Interpretive Data Fasting glucose >/= [...] 2022. Calcium 9.3 8.5 - 10.3 mg/dL [facility] Blood 12/18/2024 5:56 AM CDT 12/18/2024 6:01 AM CDT us Jose Vega CARTOGRAPHY TEACHER LAB BLOOD ORDERABLES Final Result JEFF BRODERICK [address] [address] [place] [address] * POCT glucose (12/18/2024 4:11 AM CDT) Glucose, POC 177 70 - 199 mg/dL POC Performer [id number] [facility] Blood 12/18/2024 4:11 AM CDT 12/18/2024 4:11 AM CDT Theresa Lamb MD LAB POCT ORDERABLES - DEVICE Final Result Performing Organization Address [facility] Co de Phone Number JEFF BRODERICK [address] [address] [facility] [place] [address] * POCT glucose (12/17/2024 8:11 PM CDT) Glucose, POC 189 70 - 199 mg/dL POC Performer [id number] C[facility] CH Blood 12/17/2024 8:11 PM CDT 12/17/2024 8:11 PM CDT Theresa Lamb MD LAB POCT ORDERABLES - DEVICE Final Result Performing Organization Address [facility] de Phone Number EJFF BRODERICK [address] [address] [facility] [place] [address] * POCT glucose (12/17/2024 5:49 PM CDT) Glucose, POC 179 70 - 199 mg/dL POC Performer [id number] CERNER CH Blood 12/17/2024 5:49 PM CDT 12/17/2024 5:49 PM CDT Theresa Lamb MD LAB POCT ORDERABLES - DEVICE Final Result Performing Organization Address [facility] Co de Phone Number JEFF BRODERICK [address] [address] [facility] [place] [address] * (ABNORMAL) POCT glucose (12/17/2024 1:05 PM CDT) Glucose, POC 251(H) 70 - 199 mg/dL POC Performer [id number] CERNER CH Blood 12/17/2024 1:05 PM CDT 12/17/2024 1:05 PM CDT Theresa Lamb MD LAB POCT ORDERABLES - DEVICE Final Result Performing Organization Address City/[facility] Co de Phone Number JEFF BRODERICK [address] [address] Department [place] [address] * POCT glucose (12/17/2024 8:06 AM CDT) Glucose, POC 139 70 - 199 mg/dL POC Performer [id number] JEFF Blood 12/17/2024 8:06 AM CDT 12/17/2024 8:06 AM CDT Theresa Lamb MD LAB POCT ORDERABLES - DEVICE Final Result Performing Organization Address [facility] Co de Phone Number JEFF BRODERICK [address] [address] [place] [address] * XR Chest 1 View - in [...] in place. The tip of a retracted Creston-Gurpreet catheter is in the superior vena cava. [...] in place. The tip of a retracted Creston-Gurpreet catheter is in the superior vena cava. Borderline cardiomegaly with aortic atherosclerosis. No failure. No active infiltrate. IMPRESSION: Findings as described above. Electronically signed by: Zenon Wing M.D. Jose Vega CARTOGRAPHY TEACHER IMG XR PROCEDURES Final Res ult * [...] NP LAB BLOOD ORDERABLES Final Result JEFF [address] [address] [place] [address] * (ABNORMAL) CBC without differential (12/17/2024 6:02 AM CDT) WBC 10.37(H) 3.80 - 9.90 K/cumm Hgb 9.6(L) 13.0 - 17.5 g/dL [facility] Hct 29.1(L) 38.9 - 50.3 % [facility] Plt 135(L) 150 - 400 K/cumm [facility] MPV 9.2 9.1 - 12.3 fL [facility] RBC 3.33(L) 4.30 - 5.80 M/cumm [facility] MCV 87.4 81.3 - 96.4 fL [facility] MCH 28.8 27.1 - 33.3 pg [facility] MCHC 33.0 32.3 - 35.7 g/dL [facility] RDW CV 14.0 11.1 - 14.9 % [facility] RDW SD 44.2 35.7 - 48.1 fL [facility] NRBC abs 0.00 0.00 - 0.01 K/cumm [facility] Blood 12/17/2024 6:02 AM CDT 12/17/2024 6:25 AM CDT Jose Vega CARTOGRAPHY TEACHER LAB BLOOD ORDERABLES Final Result [facility] [address] [place] [address] * (ABNORMAL) Phosphorus (12/17/2024 6:02 AM CDT) Phosphorus, pl 1.8(L) 2.3 - 4.5 mg/dL Blood 12/17/2024 6:02 AM CDT 12/17/2024 6:23 AM CDT Fran Mcgrath CARTOGRAPHY TEACHER LAB BLOOD ORDERABLES Fin al Result [facility] [address] [facility] [place] [address] * Magnesium (12/17/2024 6:02 AM CDT) Magnesium 2.2 1.4 - 2.5 mg/dL Blood 12/17/2024 6:02 AM CDT 12/17/2024 6:23 AM CDT Jose Vega NP LAB BLOOD ORDERABLES Final Result JEFF BRODERICK [address] [address] Department [place] [address] * (ABNORMAL) Basic metabolic panel (12/17/2024 6:02 AM CDT) Sodium 139 135 - 145 mmol/L Potassium, pl 3.4 3.3 - 4.9 mmol/L CERNER Chloride 105 97 - 110 mmol/L [facility] CH CO2 22 22 - 32 mmol/L [facility] CH Anion gap 12 2 - 15 mmol/L [facility] BUN 28(H) 6 - 25 mg/dL [facility] Creatinine 0.80 0.80 - 1.30 mg/dL CERNER Glucose 152 70 - 199 mg/dL [facility] Comment: Interpretive Data Fasting glucose >/= [...] 2022. Calcium 8.4(L) 8.5 - 10.3 mg/dL [facility] Blood 12/17/2024 6:02 AM CDT 12/17/2024 6:23 AM CDT Jose Vega NP LAB BLOOD ORDERABLES Final Result JEFF BRODERICK [address] [address] [place] [address] * POCT glucose (12/17/2024 2:48 AM CDT) Glucose, POC 146 70 - 199 mg/dL POC Performer [id number] CERNER CH Blood 12/17/2024 2:48 AM CDT 12/17/2024 2:48 AM CDT Theresa Lamb MD LAB POCT ORDERABLES - DEVICE Final Result Performing Organization Address [facility] de Phone Number JEFF BRODERICK [address] [address] [facility] [place] [address] * (ABNORMAL) POCT glucose (12/16/2024 8:28 PM CDT) Glucose, POC 226(H) 70 - 199 mg/dL POC Performer [id number] CERNER CH Blood 12/16/2024 8:28 PM CDT 12/16/2024 8:28 PM CDT Theresa Lamb MD LAB POCT ORDERABLES - DEVICE Final Result Performing Organization Address [facility] de Phone Number JEFF BRODERICK [address] [address] [facility] [place] [address] * (ABNORMAL) POCT glucose (12/16/2024 4:36 PM CDT) Glucose, POC 269(H) 70 - 199 mg/dL POC Performer [id number] CERNER CH Blood 12/16/2024 4:36 PM CDT 12/16/2024 4:36 PM CDT Theresa Lamb MD LAB POCT ORDERABLES - DEVICE Final Result Performing Organization Address [facility] de Phone Number JEFF BRODERICK [address] [address] [facility] [place] [address] * (ABNORMAL) POCT glucose (12/16/2024 11:54 AM CDT) Glucose, POC 237(H) 70 - 199 mg/dL POC Performer [id number] CERNER CH Blood 12/16/2024 11:5 4 AM CDT 12/16/2024 11:54 AM CDT Theresa Lamb MD LAB POCT ORDERABLES - DEVICE Final Result Performing Organization Address City/[facility] Co de Phone Number JEFF BRODERICK [address] [address] [place] [address] * Critical Care (12/16/2024 8:03 AM CDT) [...] plan with the patient's team and other medical/healthcare market consultant staff. This time was in addition to and separate from care provided by other practitioners on this day of service. I spent time reviewing and interpreting data from bedside monitors, laboratory results, and imaging, I spent time discussing the management of this critically ill patient with consultants and the medical staff and I spent time documenting in the medical record Lesly Rossi CARTOGRAPHY TEACHER IN CLINIC/BEDSIDE ORDERABLES Final Result * POCT glucose (12/16/2024 8:02 AM CDT) Glucose, POC 156 70 - 199 mg/dL POC Performer [id number] JEFF Blood 12/16/2024 8:02 AM CDT 12/16/2024 8:02 AM CDT Theresa Lamb MD LAB POCT ORDERABLES - DEVICE Final Result Performing Organization Address City/[facility]/ZIP Co de Phone Number [facility] BROD[facility]ICK [address] [place] [address] * XR Chest 1 View - in [...] the chest. FINDINGS: The tip of the Creston-Gurpreet catheter is in the undivided main pulmonary [...] the chest. FINDINGS: The tip of the Creston-Gurpreet catheter is in the undivided main pulmonary artery. Left thoracostomy tube and mediastinal drain in place. Cardiomegaly with aortic atherosclerosis. No failure. Right basal subsegmental atelectasis with the remainder of the lungs being clear. IMPRESSION: Findings as described above. Electronically signed by: Zenon Wing M.D. Jose Vega CARTOGRAPHY TEACHER IMG XR PROCEDURES Final Res ult * Oxyhemoglobin, pulmonary artery (12/16/2024 4:37 AM CDT) Oxyhemoglobin, PA 62.0 % Comment: Interpretive Data No reference range established. Current interpretive data was last revised 2019. Blood 12/16/2024 4:37 AM CDT 12/16/2024 4:40 AM CDT Fran Mcgrath CARTOGRAPHY TEACHER LAB BLOOD ORDERABLES Fin al Result Performing Organization Address [facility] Co de Phone Number [facility] [address] [address] [facility] [place] [address] * (ABNORMAL) Blood gas, pulmonary artery (12/16/2024 4:37 AM CDT) pH, PA 7.39 Comment: Interpretive Data No reference range established. Current interpretive data was last revised 2019. pCO2, PA 37 mmHg JEFF Comment: Interpretive Data No reference range established. Current interpretive data was last revised 2019. pO2, PA 34(C) mmHg [facility] Comment: Critical result called to and read back by Gordon Puentes on 12/16/2024 04:45:13 CDT to Jeannie Lyles. Interpretive Data No reference range established. Current interpretive data was last revised 2019. HCO3, PA (Calculated) 22 mmol/L [facility] Comment: Interpretive Data No reference range established. Current interpretive data was last revised 2019. Base excess PA -2 mmol/L [facility] Comment: Interpretive Data No reference range established. Current interpretive data was last revised 2019. O2 Sat, PA (Measured) 64 % [facility] Comment: Interpretive Data No reference range established. Current interpretive data was last revised 2019. Blood 12/16/2024 4:37 AM CDT 12/16/2024 4:40 AM CDT Jose Vega CARTOGRAPHY TEACHER LAB BLOOD ORDERABLES Final Result Performing Organization Address [facility]/ZIP Co de Phone Number [facility] [address] [address] [facility] [place] [address] * eGFR (12/16/2024 4:37 AM CDT) eGFR [...] Vega NP LAB BLOOD ORDERABLES Final Result [facility] [address] [place] [address] * (ABNORMAL) CBC without differential (12/16/2024 4:37 AM CDT) WBC 12.90(H) 3.80 - 9.90 K/cumm Hgb 9.1(L) 13.0 - 17.5 g/dL [facility] Hct 28.0(L) 38.9 - 50.3 % [facility] Plt 99(L) 150 - 400 K/cumm [facility] MPV 9.1 9.1 - 12.3 fL [facility] RBC 3.21(L) 4.30 - 5.80 M/cumm [facility] MCV 87.2 81.3 - 96.4 fL [facility] MCH 28.3 27.1 - 33.3 pg [facility] MCHC 32.5 32.3 - 35.7 g/dL [facility] RDW CV 14.0 11.1 - 14.9 % [facility] RDW SD 44.1 35.7 - 48.1 fL [facility] NRBC abs 0.00 0.00 - 0.01 K/cumm [facility] Blood 12/16/2024 4:37 AM CDT 12/16/2024 4:41 AM CDT Jose Vega CARTOGRAPHY TEACHER LAB BLOOD ORDERABLES Final Result Performing Organization Address [facility]/ZIP Co de Phone Number JEFF [address] [address] [facility] [place] [address] * Phosphorus (12/16/2024 4:37 AM CDT) Pathologist [facility] Phosphorus, pl 2.3 2.3 - 4.5 mg/dL Blood 12/16/2024 4:37 AM CDT 12/16/2024 4:40 AM CDT Fran Mcgrath CARTOGRAPHY TEACHER LAB BLOOD ORDERABLES Fin al Result Performing Organization Address [facility] Co de Phone Number JEFF [address] [address] [place] [address] * Magnesium (12/16/2024 4:37 AM CDT) Pathologist [facility] Magnesium 2.1 1.4 - 2.5 mg/dL Blood 12/16/2024 4:37 AM CDT 12/16/2024 4:40 AM CDT Jose Vega CARTOGRAPHY TEACHER LAB BLOOD ORDERABLES Final Result Performing Organization Address [facility] Co de Phone Number JEFF [address] [address] [place] [address] * Basic metabolic panel (12/16/2024 4:37 AM CDT) Sodium 139 135 - 145 mmol/L Potassium, pl 3.5 3.3 - 4.9 mmol/L [facility] Chloride 107 97 - 110 mmol/L [facility] CO2 22 22 - 32 mmol/L [facility] Anion gap 10 2 - 15 mmol/L [facility] BUN 25 6 - 25 mg/dL [facility] Creatinine 0.81 0.80 - 1.30 mg/dL [facility] Glucose 132 70 - 199 mg/dL [facility] Comment: Interpretive Data Fasting glucose >/= [...] 2022. Calcium 8.6 8.5 - 10.3 mg/dL [facility] Blood 12/16/2024 4:37 AM CDT 12/16/2024 4:40 AM CDT us Jose Vega NP LAB BLOOD ORDERABLES Final Result JEFF [facility] [address] [employer] [place], [place] [id number] * POCT glucose (12/16/2024 2:04 AM CDT) Glucose, POC 123 70 - 199 mg/dL POC Performer [id number] [facility] Blood 12/16/2024 2:04 AM CDT 12/16/2024 2:04 AM CDT us Theresa Lamb MD LAB POCT ORDERABLES - DEVICE Final Result JEFF BRODERICK [address] [address] Department [place] [address] * POCT glucose (12/15/2024 11:03 PM CDT) Glucose, POC 98 70 - 199 mg/dL POC Performer [id number] [facility] Blood 12/15/2024 11:0 3 PM CDT 12/15/2024 11:03 PM CDT Theresa Lamb MD LAB POCT ORDERABLES - DEVICE Final Result Performing Organization Address [facility] Co de Phone Number JEFF BRODERICK [address] [address] [facility] [place] [address] * POCT glucose (12/15/2024 9:59 PM CDT) [facility] Signature Glucose, POC 102 70 - 199 mg/dL POC Performer [id number] [facility] Blood 12/15/2024 9:59 PM CDT 12/15/2024 9:59 PM CDT Theresa Lamb MD LAB POCT ORDERABLES - DEVICE Final Result Performing Organization Address [facility] de Phone Number JEFF BRODERICK [address] [address] [facility] [place] [address] * Critical Care (12/15/2024 9:01 PM CDT) [...] plan with the patient's team and other medical/healthcare market consultant staff. This time was in addition to and separate from care provided by other practitioners on this day of service. Heri Tovar NP IN CLINIC/BEDSIDE ORDER BEATRIZ Final Result * POCT glucose (12/15/2024 8:53 PM CDT) Glucose, POC 105 70 - 199 mg/dL POC Performer [id number] [facility] Blood 12/15/2024 8:53 PM CDT 12/15/2024 8:53 PM CDT Theresa Lamb MD LAB POCT ORDERABLES - DEVICE Final Result Performing Organization Address [facility] [facility] Co de Phone Number JEFF BRODERICK [address] [address] [facility] [employer] [place], [place] [id number] * POCT glucose (12/15/2024 7:53 PM CDT) Glucose, POC 129 70 - 199 mg/dL POC Performer [id number] CERNER CH Blood 12/15/2024 7:53 PM CDT 12/15/2024 7:53 PM CDT Theresa Lamb MD LAB POCT ORDERABLES - DEVICE Final Result Performing Organization Address [facility] de Phone Number JEFF BRODERICK [address] [address] [facility] [place] [address] * POCT glucose (12/15/2024 6:48 PM CDT) Glucose, POC 157 70 - 199 mg/dL POC Performer [id number] CERNER CH Blood 12/15/2024 6:48 PM CDT 12/15/2024 6:48 PM CDT Theresa Lamb MD LAB POCT ORDERABLES - DEVICE Final Result Performing Organization Address [facility] de Phone Number JEFF BRODERICK [address] [address] [facility] [place] [address] * (ABNORMAL) POCT glucose (12/15/2024 5:50 PM CDT) Glucose, POC 210(H) 70 - 199 mg/dL POC Performer [id number] CERNER CH Blood 12/15/2024 5:50 PM CDT 12/15/2024 5:50 PM CDT Theresa Lamb MD LAB POCT ORDERABLES - DEVICE Final Result Performing Organization Address [facility] Co de Phone Number JEFF BRODERICK [address] [address] [facility] [employer] [place], [place] [id number] * POCT glucose (12/15/2024 4:49 PM CDT) Glucose, POC 141 70 - 199 mg/dL POC Performer [id number] CERNER CH Blood 12/15/2024 4:49 PM CDT 12/15/2024 4:49 PM CDT Theresa Lamb MD LAB POCT ORDERABLES - DEVICE Final Result Performing Organization Address [facility] de Phone Number JEFF BRODERICK [address] [address] [facility] [place] [address] * POCT glucose (12/15/2024 3:50 PM CDT) Glucose, POC 130 70 - 199 mg/dL POC Performer [id number] CERNER CH Blood 12/15/2024 3:50 PM CDT 12/15/2024 3:50 PM CDT Theresa Lamb MD LAB POCT ORDERABLES - DEVICE Final Result Performing Organization Address [facility] Co de Phone Number JEFF BRODERICK [address] [address] [facility] [place] [address] * POCT glucose (12/15/2024 2:52 PM CDT) Glucose, POC 130 70 - 199 mg/dL POC Performer [id number] CERNER CH Blood 12/15/2024 2:52 PM CDT 12/15/2024 2:52 PM CDT us Theresa Lamb MD LAB POCT ORDERABLES - DEVICE Final Result Performing Organization Address [facility] Phone Number JEFF [address] [facility] [place] [address] * Critical Care (12/15/2024 1:57 PM CDT) [...] plan with the ICU team and other medical/healthcare market consultant staff, making frequent assessments and decisions [...] * POCT glucose (12/15/2024 1:49 PM CDT) [facility] Signature Glucose, POC 133 70 - 199 mg/dL POC Performer [id number] JEFF BRODERICK Blood 12/15/2024 1:49 PM CDT 12/15/2024 1:49 PM CDT Theresa Lamb MD LAB POCT ORDERABLES - DEVICE Final Result JEFF BRODERICK [address] [address] [facility] [place] [address] * POCT glucose (12/15/2024 12:26 PM CDT) Glucose, POC 138 70 - 199 mg/dL POC Performer [id number] CERNER CH Blood 12/15/2024 12:2 6 PM CDT 12/15/2024 12:26 PM CDT Theresa Lamb MD LAB POCT ORDERABLES - DEVICE Final Result Performing Organization Address [facility] Co de Phone Number JEFF BRODERICK [address] [address] [facility] [place] [address] * POCT glucose (12/15/2024 11:28 AM CDT) Glucose, POC 144 70 - 199 mg/dL POC Performer [id number] CERNER CH Blood 12/15/2024 11:2 8 AM CDT 12/15/2024 11:28 AM CDT Theresa Lamb MD LAB POCT ORDERABLES - DEVICE Final Result Performing Organization Address [facility] Co de Phone Number JEFF BRODERICK [address] [address] [facility] [place] [address] * POCT glucose (12/15/2024 10:32 AM CDT) Glucose, POC 144 70 - 199 mg/dL POC Performer [id number] CERNER CH Blood 12/15/2024 10:3 2 AM CDT 12/15/2024 10:32 AM CDT Theresa Lamb MD LAB POCT ORDERABLES - DEVICE Final Result Performing Organization Address [facility]/ZIP Co de Phone Number JEFF BRODERICK [address] [address] Department [place] [address] * POCT glucose (12/15/2024 8:34 AM CDT) Glucose, POC 137 70 - 199 mg/dL POC Performer [id number] CERNER CH Blood 12/15/2024 8:34 AM CDT 12/15/2024 8:34 AM CDT Theresa Lamb MD LAB POCT ORDERABLES - DEVICE Final Result Performing Organization Address [facility] Co de Phone Number JEFF BRODERICK [address] [address] Department [place] [address] * ECG 12 lead (12/15/2024 7:15 AM CDT) 12/15/2024 7:15 AM CDT Narrative [facility] - 12/15/2024 9:57 AM CDT Vent Rate: 85 bpm RR Interval: 704 msec VA Interval: 199 msec QRS Duration: 102 msec QT Interval: 372 msec QTC Interval: 414 msec P-R-T [place]: 7 - 48 - 47 degrees IMPRESSION: SINUS RHYTHM POSSIBLE RIGHT VENTRICULAR CONDUCTION DELAY [RSR (QR) IN V1/V2] ABNORMAL ECG Electronically Signed By: Jerad Jaquez MD Theresa Lamb MD ECG ORDERABLES Final Result Performing Organization Address [facility] Co de Phone Number [facility] * POCT glucose (12/15/2024 6:16 AM CDT) Glucose, POC 140 70 - 199 mg/dL POC Performer [id number] CERNER CH Blood 12/15/2024 6:16 AM CDT 12/15/2024 6:16 AM CDT Theresa Lamb MD LAB POCT ORDERABLES - DEVICE Final Result Performing Organization Address [facility] Co de Phone Number JEFF BRODERICK [address] Department [place] [address] * XR Chest 1 View - in [...] has been removed. The tip of the Creston-Gurpreet catheter is in the undivided main pulmonary [...] has been removed. The tip of the [place]rest[place]-Gurpreet catheter is in the undivided main pulmonary artery. Left thoracostomy tube and mediastinal drain in place. Right basal subsegmental atelectasis with the remainder of the lungs being clear. Cardiomegaly with no failure. IMPRESSION: Findings as described above. Electronically signed by: Zenon Wing M.D. us Jose Vega CARTOGRAPHY TEACHER IMG XR PROCEDURES Final Res ult * POCT glucose (12/15/2024 5:16 AM CDT) Glucose, POC 107 70 - 199 mg/dL POC Performer [id number] JEFF Blood 12/15/2024 5:16 AM CDT 12/15/2024 5:16 AM CDT Theresa Lamb MD LAB POCT ORDERABLES - DEVICE Final Result Performing Organization Address [facility]/ZIP Co de Phone Number JEFF BRODERICK [address] [address] [facility] [place] [address] * POCT glucose (12/15/2024 4:20 AM CDT) Pathologist [facility] Glucose, POC 99 70 - 199 mg/dL POC Performer [id number] [facility] Blood 12/15/2024 4:20 AM CDT 12/15/2024 4:20 AM CDT Theresa Lamb MD LAB POCT ORDERABLES - DEVICE Final Result Performing Organization Address [facility] de Phone Number JEFF BRODERICK [address] [address] Department [place] [address] * (ABNORMAL) CBC without differential (12/15/2024 3:34 AM CDT) Pathologist [facility] WBC 10.84(H) 3.80 - 9.90 K/cumm Hgb 10.2(L) 13.0 - 17.5 g/dL [facility] Hct 31.1(L) 38.9 - 50.3 % [facility] Plt 122(L) 150 - 400 K/cumm [facility] MPV 8.8(L) 9.1 - 12.3 fL [facility] RBC 3.59(L) 4.30 - 5.80 M/cumm [facility] MCV 86.6 81.3 - 96.4 fL [facility] MCH 28.4 27.1 - 33.3 pg CERNER MCHC 32.8 32.3 - 35.7 g/dL CERNER CH RDW CV 13.6 11.1 - 14.9 % CERNER CH RDW SD 42.3 35.7 - 48.1 fL CERNER CH NRBC abs 0.00 0.00 - 0.01 K/cumm CERNER CH Blood 12/15/2024 3:34 AM CDT 12/15/2024 3:34 AM CDT Jose Vega CARTOGRAPHY TEACHER LAB BLOOD ORDERABLES Final Result Performing Organization Address [facility] de Phone Number JEFF [address] [address] [facility] [place] [address] * POCT glucose (12/15/2024 3:14 AM CDT) Glucose, POC 108 70 - 199 mg/dL POC Performer [id number] JEFF Blood 12/15/2024 3:14 AM CDT 12/15/2024 3:14 AM CDT Theresa Lamb MD LAB POCT ORDERABLES - DEVICE Final Result Performing Organization Address [facility] Phone Number JEFF [address] [address] [facility] [place] [address] * Oxyhemoglobin, pulmonary artery (12/15/2024 2:46 AM CDT) Oxyhemoglobin, PA 66.1 % Comment: Interpretive Data No reference range established. Current interpretive data was last revised 2019. Blood 12/15/2024 2:46 AM CDT 12/15/2024 3:30 AM CDT Fran Mcgrath CARTOGRAPHY TEACHER LAB BLOOD ORDERABLES Fin al Result Performing Organization Address [facility] de Phone Number JEFF [address] [address] [facility] [place] [address] * (ABNORMAL) Blood gas, pulmonary artery (12/15/2024 2:46 AM CDT) pH, PA 7.38 Comment: Interpretive Data No reference range established. Current interpretive data was last revised 2019. pCO2, PA 43 mmHg JEFF Comment: Interpretive Data No reference range established. Current interpretive data was last revised 2019. pO2, PA 37(C) mmHg [facility] Comment: Critical result called to and [...] BLOOD ORDERABLES Final Result Performing Organization Address [facility] Co de Phone Number JEFF [address] [place] [place] [address] * (ABNORMAL) Calcium, ionized, whole blood (12/15/2024 2:46 AM CDT) [facility] Ca, ionized, bld 5.64(H) 4.50 - 5.10 mg/dL Blood 12/15/2024 2:46 AM CDT 12/15/2024 3:30 AM CDT Jose Vega NP LAB BLOOD ORDERABLES Final Result Performing Organization Address [facility] Co de Phone Number JEFF [address] [address] Department [place] [address] * eGFR (12/15/2024 2:46 AM CDT) [facility] eGFR >90 >=60 mL/min/1. 73 m2 Comment: [...] CDT 12/15/2024 3:30 AM CDT Jose Vega CARTOGRAPHY TEACHER LAB BLOOD ORDERABLES Final Result Performing Organization Address [facility] Co de Phone Number SAMANTHAROGER BRODERICK [address] [address] [place] [place] [address] * Phosphorus (12/15/2024 2:46 AM CDT) Phosphorus, pl 2.5 2.3 - 4.5 mg/dL Blood 12/15/2024 2:46 AM CDT 12/15/2024 3:30 AM CDT Fran Mcgrath CARTOGRAPHY TEACHER LAB BLOOD ORDERABLES Fin al Result Performing Organization Address [facility] [place] [address] [address] Department [place] [address] * Magnesium (12/15/2024 2:46 AM CDT) Magnesium 2.2 1.4 - 2.5 mg/dL Blood 12/15/2024 2:46 AM CDT 12/15/2024 3:30 AM CDT Jose Vega CARTOGRAPHY TEACHER LAB BLOOD ORDERABLES Final Result JEFF BRODERICK [address] [address] [place] [address] * (ABNORMAL) Basic metabolic panel (12/15/2024 2:46 [...] CDT 12/15/2024 3:30 AM CDT Jose Vega CARTOGRAPHY TEACHER LAB BLOOD ORDERABLES Final Result Performing Organization Address [facility]/ZIP Co de Phone Number JEFF BRODERICK [address] [address] Department [place] [address] * POCT glucose (12/15/2024 2:23 AM CDT) Glucose, POC 130 70 - 199 mg/dL POC Performer [id number] [facility] Blood 12/15/2024 2:23 AM CDT 12/15/2024 2:23 AM CDT Theresa Lamb MD LAB POCT ORDERABLES - DEVICE Final Result Performing Organization Address [facility] Co de Phone Number JEFF BRODERICK [address] [address] [facility] [place] [address] * POCT glucose (12/15/2024 12:59 AM CDT) Glucose, POC 136 70 - 199 mg/dL POC Performer [id number] CERNER CH Blood 12/15/2024 12:5 9 AM CDT 12/15/2024 12:59 AM CDT Theresa Lamb MD LAB POCT ORDERABLES - DEVICE Final Result Performing Organization Address [facility] de Phone Number JEFF BRODERICK [address] [address] [facility] [place] [address] * POCT glucose (12/14/2024 11:53 PM CDT) Glucose, POC 168 70 - 199 mg/dL POC Performer [id number] CERNER CH Blood 12/14/2024 11:5 3 PM CDT 12/14/2024 11:53 PM CDT Theresa Lamb MD LAB POCT ORDERABLES - DEVICE Final Result Performing Organization Address [facility] Co de Phone Number JEFF BRODERICK [address] [address] [facility] [place] [address] * (ABNORMAL) Blood gas, arterial (12/14/2024 11:50 [...] Art (Measured) 96(H) 90 - 95 % [facility] Blood 12/14/2024 11:5 0 PM CDT 12/14/2024 11:56 PM CDT Theresa Lamb MD LAB BLOOD ORDERABLES Final R esult Performing Organization Address [facility] Co de Phone Number JEFF [address] [place] [address] * (ABNORMAL) CBC without differential (12/14/2024 11:12 PM CDT) Pathologist [facility] WBC 12.50(H) 3.80 - 9.90 K/cumm Hgb 10.5(L) 13.0 - 17.5 g/dL [facility] Hct 31.3(L) 38.9 - 50.3 % [facility] Plt 166 150 - 400 K/cumm [facility] MPV 8.5(L) 9.1 - 12.3 fL [facility] RBC 3.68(L) 4.30 - 5.80 M/cumm [facility] MCV 85.1 81.3 - 96.4 fL [facility] MCH 28.5 27.1 - 33.3 pg [facility] MCHC 33.5 32.3 - 35.7 g/dL [facility] RDW CV 13.4 11.1 - 14.9 % [facility] RDW SD 41.5 35.7 - 48.1 fL [facility] NRBC abs 0.00 0.00 - 0.01 K/cumm [facility] Blood 12/14/2024 11:1 2 PM CDT 12/14/2024 11:12 PM CDT Theresa Lamb MD LAB BLOOD ORDERABLES Final R esult Performing Organization Address [facility]/ZIP Co de Phone Number JEFF BRODERICK [address] Department of [employer] [place], [place] [address] * POCT glucose (12/14/2024 11:03 PM CDT) [facility] Glucose, POC 145 70 - 199 mg/dL POC Performer [id number] [facility] Blood 12/14/2024 11:0 3 PM CDT 12/14/2024 11:03 PM CDT Theresa Lamb MD LAB POCT ORDERABLES - DEVICE Final Result Performing Organization Address [facility]/ZIP Co de Phone Number JEFF [address] [address] Department [place] [address] * (ABNORMAL) Calcium, ionized, whole blood (12/14/2024 10:53 PM CDT) [facility] Ca, ionized, bld 4.48(L) 4.50 - 5.10 mg/dL Blood 12/14/2024 10:5 3 PM CDT 12/14/2024 11:11 PM CDT Theresa Lamb MD LAB BLOOD ORDERABLES Final R esult Performing Organization Address [facility] Co de Phone Number JEFF [address] [address] Department [place] [address] * eGFR (12/14/2024 10:53 PM CDT) [facility] eGFR >90 >=60 mL/min/1. 73 m2 Comment: [...] ORDERABLES Final R esult Performing Organization Address [facility] Co de Phone Number JEFF BRODERICK [address] [address] [place] [address] * Type and screen (12/14/2024 10:53 PM CDT) Antonio, indirect Negative ABO Rh A Negative [facility] Blood 12/14/2024 10:5 3 PM CDT 12/14/2024 11:16 PM CDT Narrative [facility] - 12/15/2024 12:05 AM CDT Has the patient had Daratumumab or Isatuximab in the past 6 months?->Unknown us Kristal Edward CARTOGRAPHY TEACHER LAB BLOOD BANK TEST ORDER BEATRIZ Final Result Performing Organization Address [facility] de Phone Number JEFF BRODERICK [address] [address] [place] [address] * Magnesium (12/14/2024 10:53 PM CDT) Magnesium 2.3 1.4 - 2.5 mg/dL Blood 12/14/2024 10:5 3 PM CDT 12/14/2024 11:11 PM CDT Theresa Lamb MD LAB BLOOD ORDERABLES Final R esult Performing Organization Address [facility] Co de Phone Number JEFF BRODERICK [address] [address] [place] [address] * (ABNORMAL) Basic metabolic panel (12/14/2024 10:53 [...] 2022. Calcium 8.3(L) 8.5 - 10.3 mg/dL [facility] Blood 12/14/2024 10:5 3 PM CDT 12/14/2024 11:11 PM CDT Theresa Lamb MD LAB BLOOD ORDERABLES Final R esult Performing Organization Address [facility]/ZIP Co de Phone Number JEFF DAVIE [address] [place] [address] * POCT glucose (12/14/2024 10:12 PM CDT) [facility] Signature Glucose, POC 132 70 - 199 mg/dL POC Performer [id number] [facility] Blood 12/14/2024 10:1 2 PM CDT 12/14/2024 10:12 PM CDT Theresa Lamb MD LAB POCT ORDERABLES - DEVICE Final Result SAMANTHAROGER BRODERICK [address] [address] [place] [address] * Critical Care (12/14/2024 9:57 PM CDT) [...] plan with the ICU team and other medical/healthcare market consultant staff, making frequent assessments and decisions [...] * POCT glucose (12/14/2024 9:11 PM CDT) [facility] Glucose, POC 126 70 - 199 mg/dL POC Performer [id number] JEFF BRODERICK Blood 12/14/2024 9:11 PM CDT 12/14/2024 9:11 PM CDT us Theresa Lamb MD LAB POCT ORDERABLES - DEVICE Final Result JEFF [address] [address] [place] [address] * POCT glucose (12/14/2024 8:09 PM CDT) [facility] Glucose, POC 124 70 - 199 mg/dL POC Performer [id number] [facility] Blood 12/14/2024 8:09 PM CDT 12/14/2024 8:09 PM CDT Theresa Lamb MD LAB POCT ORDERABLES - DEVICE Final Result Performing Organization Address [facility] Co de Phone Number JEFF BRODERICK [address] [address] [place] [address] * POCT glucose (12/14/2024 7:00 PM CDT) [facility] Glucose, POC 116 70 - 199 mg/dL POC Performer [id number] [facility] Blood 12/14/2024 7:00 PM CDT 12/14/2024 7:00 PM CDT Theresa Lamb MD LAB POCT ORDERABLES - DEVICE Final Result Performing Organization Address [facility] Co de Phone Number SAMANTHAROGER BRODERICK [address] [address] [place] [address] * Calcium, ionized, whole blood (12/14/2024 6:10 PM CDT) [facility] Ca, ionized, bld 4.93 4.50 - 5.10 mg/dL Blood 12/14/2024 6:10 PM CDT 12/14/2024 6:14 PM CDT Jose Vega CARTOGRAPHY TEACHER LAB BLOOD ORDERABLES Final Result Performing Organization Address [facility] Co de Phone Number JEFF BRODERICK [address] [address] [facility] [place] [address] * eGFR (12/14/2024 6:10 PM CDT) [facility] eGFR >90 >=60 mL/min/1. 73 m2 Comment: [...] BLOOD ORDERABLES Final Result Performing Organization Address [facility] Co de Phone Number JEFF BRODERICK [address] [address] [place] [address] * aPTT (12/14/2024 6:10 PM CDT) Pathologist [facility] aPTT 35 28 - 38 sec Comment: Interpretive Data Heparin therapeutic range: 66.0 - 100.0 seconds. Range based on correlation with therapeutic heparin activity range of 0.3 - 0.7 Units/mL. Current interpretive data was last revised on 2023. Blood 12/14/2024 6:10 PM CDT 12/14/2024 6:16 PM CDT Jose Vega NP LAB BLOOD ORDERABLES Final Result Performing Organization Address [facility]/[place] [address] [address] Department of [employer] [place], [place] [address] * (ABNORMAL) Protime-INR (12/14/2024 6:10 PM CDT) PT 15.8(H) 9.7 - 13.0 sec INR 1.45(H) 0.90 - 1.20 [facility] Comment: Interpretive data Oral anticoagulant therapeutic ranges: Venous thromboembolism prophylaxis or treatment: 2.0-3.0 CARDIOLOGY Standard range: 2.0-3.0 High-intensity range: 2.5-3.5 Refer to indication-specific guidelines for appropriate target ranges for prosthetic heart valve replacement. Current interpretive data was last revised on 2019. Blood 12/14/2024 6:10 PM CDT 12/14/2024 6:16 PM CDT Jose Vega NP LAB BLOOD ORDERABLES Final Result JEFF [address] [address] [place] [address] * (ABNORMAL) CBC without differential (12/14/2024 6:10 PM CDT) WBC 18.46(H) 3.80 - 9.90 K/cumm Hgb 10.7(L) 13.0 - 17.5 g/dL [facility] Hct 31.5(L) 38.9 - 50.3 % [facility] Plt 176 150 - 400 K/cumm [facility] MPV 8.8(L) 9.1 - 12.3 fL [facility] RBC 3.72(L) 4.30 - 5.80 M/cumm [facility] MCV 84.7 81.3 - 96.4 fL [facility] MCH 28.8 27.1 - 33.3 pg [facility] MCHC 34.0 32.3 - 35.7 g/dL [facility] RDW CV 13.2 11.1 - 14.9 % [facility] RDW SD 41.1 35.7 - 48.1 fL [facility] NRBC abs 0.00 0.00 - 0.01 K/cumm [facility] Blood 12/14/2024 6:10 PM CDT 12/14/2024 6:16 PM CDT Jose Fran [place] CARTOGRAPHY TEACHER LAB BLOOD ORDERABLES Final Result Performing Organization Address [facility]/ZIP Co de Phone Number JEFF BRODERICK [address] [address] [facility] [place] [address] * Phosphorus (12/14/2024 6:10 PM CDT) Pathologist [facility] Phosphorus, pl 3.0 2.3 - 4.5 mg/dL Blood 12/14/2024 6:10 PM CDT 12/14/2024 6:14 PM CDT Fran Mcgrath CARTOGRAPHY TEACHER LAB BLOOD ORDERABLES Fin al Result Performing Organization Address [facility] Co de Phone Number JEFF BRODERICK [address] [address] [facility] [place] [address] * Magnesium (12/14/2024 6:10 PM CDT) Pathologist [facility] Magnesium 2.5 1.4 - 2.5 mg/dL Blood 12/14/2024 6:10 PM CDT 12/14/2024 6:14 PM CDT Jose Vega CARTOGRAPHY TEACHER LAB BLOOD ORDERABLES Final Result Performing Organization Address [facility] de Phone Number JEFF BRODERICK [address] [address] Department [place] [address] * (ABNORMAL) Blood gas, arterial (12/14/2024 6:10 PM CDT) Pathologist [facility] pH, Art 7.40 7.35 - 7.45 PCO2, [...] CDT 12/14/2024 6:14 PM CDT Jose Vega CARTOGRAPHY TEACHER LAB BLOOD ORDERABLES Final Result JEFF BRODERICK [address] [address] Department [place] [address] * (ABNORMAL) Basic metabolic panel (12/14/2024 6:10 [...] 2022. Calcium 8.0(L) 8.5 - 10.3 mg/dL [facility] Blood 12/14/2024 6:10 PM CDT 12/14/2024 6:14 PM CDT Jose Vega CARTOGRAPHY TEACHER LAB BLOOD ORDERABLES Final Result Performing Organization Address City/[facility]/ZIP Co de Phone Number JEFF BRODERICK [address] Department [place] [address] * XR Chest 1 View (12/14/2024 6:08 [...] plan with the ICU team and other medical/healthcare market consultant staff, making frequent assessments and decisions [...] 133 70 - 199 mg/dL POC Performer [id number] [facility] Blood 12/14/2024 5:50 PM CDT 12/14/2024 5:50 PM CDT us Theresa Lamb MD LAB POCT ORDERABLES - DEVICE Final Result [facility] [address] [place] [address] * (ABNORMAL) POC Blood Gas [...] ORDERABLES - DEVICE Final Result JEFF BRODERICK [address] [place] [address] * POC Activated Clotting Time, High Range (12/14/2024 4:26 PM CDT) ACT 96 87 - 138 sec POC Performer [id number] [facility] Blood 12/14/2024 4:26 PM CDT 12/14/2024 4:26 PM CDT Theresa Lamb MD LAB BLOOD ORDERABLES Final R esult JEFF BRODERICK [address] [place] [address] * (ABNORMAL) POC Activated Clotting Time, High Range (12/14/2024 3:54 PM CDT) ACT 516(H) 87 - 138 sec POC Performer [id number] [facility] Blood 12/14/2024 3:54 PM CDT 12/14/2024 3:54 PM CDT Theresa Lamb MD LAB BLOOD ORDERABLES Final R esult JEFF BRODERICK [address] [address] [place] [address] * (ABNORMAL) POC Blood Gas and Chemistries, [...] ORDERABLES - DEVICE Final Result JEFF BRODERICK [address] [place] [address] * (ABNORMAL) POC Activated Clotting Time, High Range (12/14/2024 3:38 PM CDT) Pathologist [facility] ACT 583(H) 87 - 138 sec POC Performer [id number] [facility] Blood 12/14/2024 3:38 PM CDT 12/14/2024 3:38 PM CDT Theresa Lamb MD LAB BLOOD ORDERABLES Final R esult Performing Organization Address City/State/[facility] Co de Phone Number JEFF BRODERICK [address] [place] [address] * Platelet count (12/14/2024 3:24 PM CDT) [facility] Plt 172 150 - 400 K/cumm Blood 12/14/2024 3:24 PM CDT 12/14/2024 3:29 PM CDT Theresa Lamb MD LAB BLOOD ORDERABLES Final R esult Performing Organization Address City/[facility] Co de Phone Number JEFF BRODERICK [address] [facility] [place] [address] * (ABNORMAL) POC Blood Gas and Chemistries, Arterial - (12/14/2024 3:13 PM CDT) [facility] pH, Art POC 7.40 7.35 - 7.45 [...] - DEVICE Final Result Performing Organization Address [facility]/ZIP Co de Phone Number JEFF BRODERICK [address] [place] [address] * (ABNORMAL) POC Activated Clotting Time, High Range (12/14/2024 3:11 PM CDT) ACT 640(H) 87 - 138 sec POC Performer [id number] [facility] Blood 12/14/2024 3:11 PM CDT 12/14/2024 3:11 PM CDT Theresa Lamb MD LAB BLOOD ORDERABLES Final R esult JEFF BRODERICK [address] Department [place] [address] * (ABNORMAL) POC Activated Clotting Time, High Range (12/14/2024 2:34 PM CDT) ACT 547(H) 87 - 138 sec POC Performer [id number] [facility] Blood 12/14/2024 2:34 PM CDT 12/14/2024 2:34 PM CDT us Theresa Lamb MD LAB BLOOD ORDERABLES Final R esult JEFF [address] [place] [address] * (ABNORMAL) POC Blood Gas [...] Final Result JEFF [address] [place] [address] * (ABNORMAL) POC Blood Gas [...] ORDERABLES - DEVICE Final Result JEFF BRODERICK [address] [address] [place] [address] * (ABNORMAL) POC Activated Clotting Time, High Range (12/14/2024 1:48 PM CDT) ACT 738(H) 87 - 138 sec POC Performer [id number] [facility] Blood 12/14/2024 1:48 PM CDT 12/14/2024 1:48 PM CDT Theresa Lamb MD LAB BLOOD ORDERABLES Final R esult JEFF BRODERICK [address] [place] [address] * (ABNORMAL) POC Blood Gas and Chemistries, [...] ORDERABLES - DEVICE Final Result JEFF BRODERICK [address] [place] [address] * (ABNORMAL) POC Activated Clotting Time, High Range (12/14/2024 1:12 PM CDT) ACT 775(H) 87 - 138 sec POC Performer [id number] [facility] Blood 12/14/2024 1:12 PM CDT 12/14/2024 1:12 PM CDT us Theresa Lamb MD LAB BLOOD ORDERABLES Final R esult JEFF BRODERICK [address] [place] [address] * (ABNORMAL) POC Blood Gas and Chemistries, [...] POCT ORDERABLES - DEVICE Final Result JEFF [address] [facility] [place] [address] * GABI (12/14/2024 12:09 PM CDT) Anatomical [...] inferior: hypokinetic 16- Apical septal: hypokinetic 17- Soso: hypokinetic Valves: Aortic Valve: Annulus: normal Leaflet [...] 101 87 - 138 sec POC Performer [id number] JEFF BRODERICK Blood 12/14/2024 12:0 6 PM CDT 12/14/2024 12:06 PM CDT us Theresa Lamb MD LAB BLOOD ORDERABLES Final R esult JEFF [address] [facility] [place] [address] * BW AN SHEATH INTRODUCER [...] line with maximal sterile barrier technique, [facility] student placed central line under direct supervision [...] Units (12/14/2024 9:02 AM CDT) Product code [id number] [facility] Unit Number [id number] 8-5 [facility]ER [facility] Product Blood Type ANEG [facility] Dispense Status RETURNED [facility] Product code [id number] Unit Number [id number] 0-N [facility] Product Blood Type ANEG [facility] CH Dispense Status RETURNED [facility] Product code [id number] [facility] Unit Number [id number] 2-Z [facility] Product Blood Type ANEG CERNER CH Dispense Status RETURNED [facility]ERNER [facility] Product code [id number] [facility] Unit Number [id number] 6-C [facility] Product Blood Type ANEG [facility]ERNER CH Dispense Status RETURNED [facility] Blood 12/14/2024 9:02 AM CDT Narrative [facility] - 12/15/2024 1:18 AM CDT Specify Procedure:->CABG Are special requirements needed? (All products are leukoreduced and CMV- safe)- >No Date required:-[id number] LRRBC # of [id number] Reasons:-Hold for procedure (specify procedure)} us Kristal Edward CARTOGRAPHY TEACHER BLOOD BANK PRODUCT ORDERA BLES Final Result Performing Organization Address City/[facility]/ZIP Co de Phone Number JEFF BRODERICK [address] Department [employer] [place], [place] [id number] * POCT glucose (12/14/2024 8:57 AM CDT) Glucose, POC 170 70 - 199 mg/dL POC Performer [id number] [facility] Blood 12/14/2024 8:57 AM CDT 12/14/2024 8:57 AM CDT us Theresa Lamb MD LAB POCT ORDERABLES - DEVICE Final Result Performing Organization Address City/[facility]/ZIP Co de Phone Number JEFF BRODERICK [address] [place] [address] * TRANSTHORACIC ECHO (TTE) COMPLETE W DOPPLER/CF WO CONTRAST (12/08/2024 8:39 AM CDT) Anatomical Region Laterality Modality Ultrasound 12/08/2024 7:56 AM CDT Narrative 12/08/2024 4:37 [place] [address] Echocardiogram Report Patient Name: SHAWN SHULTZ BRIAN : 1950 Study Date: 12/08/2024 7:56:17 AM Gender: M Tech: JELANI Location: OP Ref Provider: THERESA LAMB Height(Cm): 170 BSA: 2.08 Weight(Kg): 91.2 Heart Rate: 59 BP: 139/77 Quality: Good Order Provider: THERESA LAMB PROCEDURES: Echocardiographic Report: Transthoracic echocardiogram with complete 2D, M-Mode, and color Doppler examination. 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 MEASUREMENTS: 2D/MM [...] Procedure Note Sonu Campbell MD - 12/08/2024 [place] [address] Echocardiogram Report Patient Name: SHAWN SHULTZ BRIAN : 1950 Study Date: 12/08/2024 7:56:17 AM Gender: M Tech: JELANI Location: OP Ref Provider: THERESA LAMB Height(Cm): 170 BSA: 2.08 Weight(Kg): 91.2 Heart Rate: 59 BP: 139/77 Quality: Good Order Provider: THERESA LAMB PROCEDURES: Echocardiographic Report: Transthoracic echocardiogram with complete 2D, M-Mode, and color Dopplerexamination. 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 MEASUREMENTS: 2D/MM Value [...] regurgitation. Electronically Signed By: Sonu Campbell MD, [facility] 12/08/2024 4:36:50 PM CDT us Theresa Lamb MD CV ECHO PROCEDURES Final Res ult * Troponin T high-sensitivity 2-hour (12/07/2024 1:11 PM CDT) Trop T hs 17 <=22 ng/L Comment: Interpretive Data For further hscTnT resources including the diagnostic algorithm and an aid in interpretation, copy and paste this link: [email or web address] Current Interpretive Data last revised 2020. Trop T hs delta -4 ng/L [facility] Trop T hs interp Insignificant [facility] Blood 12/07/2024 1:11 PM CDT 12/07/2024 1:11 PM CDT us Aric Tabor MD LAB BLOOD ORDERABLES F inal Result [facility] [address] Department of Laboratories [place], [place] [address] * Troponin T high-sensitivity series (baseline, 2hr, 4hr, 6hr) (12/07/2024 11:12 AM CDT) Trop T hs 21 <=22 ng/L Comment: Interpretive Data For further hscTnT resources including the diagnostic algorithm and an aid in interpretation, copy and paste this link: [email or web address] Current Interpretive Data last revised 2020. Blood 12/07/2024 11:1 2 AM CDT 12/07/2024 11:12 AM CDT us Waleska Mcneal MD LAB BLOOD ORDERABLES Ed ited Result - Final JEFF BRODERICK [address] [place] [address] * eGFR (12/07/2024 11:12 AM CDT) eGFR [...] BLOOD ORDERABLES F inal Result JEFF BRODERICK [address] [place] [address] * Comprehensive metabolic panel (12/07/2024 11:12 AM [...] CDT Waleska Mcneal MD LAB BLOOD ORDERABLES [facility] Result [facility] [address] [place] [address] * (ABNORMAL) Differential, auto (12/07/2024 11:09 AM [...] K/cumm [facility] Neutrophil pct 66.7 % [facility] Comment: Interpretive Data Percent cell [...] LAB BLOOD ORDERABLES F inal Result JEFF [address] [place] [address] * (ABNORMAL) CBC with auto differential (12/07/2024 11:09 AM CDT) WBC 8.13 3.80 - 9.90 K/cumm Hgb 14.1 13.0 - 17.5 g/dL [facility] Hct 42.4 38.9 - 50.3 % [facility] Plt 204 150 - 400 K/cumm [facility] MPV 8.6(L) 9.1 - 12.3 fL JEFF RBC 4.96 4.30 - 5.80 M/cumm JEFF MCV 85.5 81.3 - 96.4 fL [facility] MCH 28.4 27.1 - 33.3 pg JEFF MCHC 33.3 32.3 - 35.7 g/dL JEFF CH RDW CV 13.5 11.1 - 14.9 % JEFF RDW SD 41.8 35.7 - 48.1 fL [facility] NRBC abs 0.00 0.00 - 0.01 K/cumm [facility] Blood Venous blood specimen / Unknown 12/07/2024 11:09 AM CDT 12/07/2024 11:09 AM CDT us Waleska Mcneal MD LAB BLOOD ORDERABLES Fi nal Result JEFF [address] [address] [place] [address] * XR Chest 1 Vw Portable (if [...] 12/07/2024 10:2 4 AM CDT Narrative [facility] - 12/07/2024 4:21 PM CDT Vent Rate: 66 bpm RR Interval: 896 msec VA Interval: 249 msec QRS Duration: 115 msec QT Interval: 401 msec QTC Interval: 415 msec P-R-T [place]: 35 - -55 - 81 degrees IMPRESSION: [...] Mcneal MD ECG ORDERABLES Final R esult [facility] * XR Chest PA Lateral 2 [...] 12/04/2024 10:3 4 AM CDT Narrative [facility] - 12/04/2024 11:16 AM CDT Vent Rate: 69 bpm RR Interval: 863 msec VA Interval: 244 msec QRS Duration: 102 msec QT Interval: 397 msec QTC Interval: 416 msec P-R-T [place]: 94 - 240 - 82 degrees IMPRESSION: SINUS RHYTHM WITH FIRST DEGREE AV BLOCK INDETERMINATE AXIS INCOMPLETE RIGHT BUNDLE BRANCH BLOCK ABNORMAL ECG NO CHANGE FROM PREVIOUS TRACING NOTED Electronically Signed By: Jose Godoy MD Theresa Lamb MD ECG ORDERABLES Final Result [facility] * eGFR (12/04/2024 9:57 AM CDT) [...] MD LAB BLOOD ORDERABLES Final R esult [facility] [address] [address] [place] [address] * (ABNORMAL) Urinalysis reflex to microscopic and [...] tendency for uric acid stone formation. Source: [facility] [employer] Current Interpretive Data was last revised on [...] O RDERABLES Final Result Performing Organization Address [facility] Co de Phone Number JEFF BRODERICK [address] [place] [address] * aPTT (12/04/2024 9:57 AM CDT) aPTT [...] ORDERABLES Final R esult Performing Organization Address [facility] Co de Phone Number JEFF BRODERICK [address] [address] [place] [address] * Protime-INR (12/04/2024 9:57 AM CDT) PT 11.6 9.7 - 13.0 sec INR 1.07 0.90 - 1.20 [facility] Comment: Interpretive data Oral anticoagulant therapeutic ranges: Venous thromboembolism prophylaxis or treatment: 2.0-3.0 CARDIOLOGY Standard range: 2.0-3.0 High-intensity range: 2.5-3.5 Refer to indication-specific guidelines for appropriate target ranges for prosthetic heart valve replacement. Current interpretive data was last revised on 2019. Blood 12/04/2024 9:57 AM CDT 12/04/2024 10:35 AM CDT Theresa Lamb MD LAB BLOOD ORDERABLES Final R esult Performing Organization Address [facility] Co de Phone Number JEFF BRODERICK [address] Department [employer] [place] [phone] * (ABNORMAL) CBC without differential (12/04/2024 9:57 [...] NRBC abs 0.00 0.00 - 0.01 K/cumm [facility] Blood 12/04/2024 9:57 AM CDT 12/04/2024 10:35 AM CDT Theresa Lamb MD LAB BLOOD ORDERABLES Final R esult Performing Organization Address City/[facility] Co de Phone Number JEFF [address] [address] [place] [address] * Type and screen (12/04/2024 9:57 AM CDT) ABO Rh A Negative Antonio, indirect Negative [facility] Blood 12/04/2024 9:57 AM CDT 12/04/2024 10:35 AM CDT Narrative [facility] - 12/04/2024 11:14 AM CDT Has the patient had Daratumumab or Isatuximab in the past 6 months?->Unknown Theresa Lamb MD LAB BLOOD BANK TEST ORDERABL ES Final Result JEFF BRODERICK [address] [place] [address] * (ABNORMAL) Basic metabolic panel (12/04/2024 9:57 AM CDT) Sodium 140 135 - 145 mmol/L Potassium, pl 3.8 3.3 - 4.9 mmol/L [facility] Chloride 102 97 - 110 mmol/L [facility] CO2 27 22 - 32 mmol/L [facility] Anion gap 11 2 - 15 mmol/L [facility] BUN 15 6 - 25 mg/dL [facility] Creatinine 0.76(L) 0.80 - 1.30 mg/dL [facility] Glucose 288(H) 70 - 199 mg/dL [facility] Comment: Interpretive Data Fasting glucose >/= [...] 2022. Calcium 9.1 8.5 - 10.3 mg/dL [facility] Blood 12/04/2024 9:57 AM CDT 12/04/2024 10:35 AM CDT Theresa Lamb MD LAB BLOOD ORDERABLES Final R esult JEFF BRODERICK [address] [place] [address] * (ABNORMAL) Troponin T high-sensitivity 2-hour (11/17/2024 10:14 PM CDT) Trop T hs 23(H) <=22 ng/L Comment: Interpretive Data For further hscTnT resources including the diagnostic algorithm and an aid in interpretation, copy and paste this link: [email or web address] Current Interpretive Data last revised 2020. Trop T hs delta 2 ng/L [facility] Trop T hs interp Insignificant [facility] Blood 11/17/2024 10:1 4 PM CDT 11/17/2024 10:25 PM CDT Jeremie Tucker MD LAB BLOOD ORDERABLES Final Result Performing Organization Address City/[facility]/ZIP Co de Phone Number JEFF BRODERICK [address] Department [place] [address] * Troponin T high-sensitivity series (baseline, 2hr, 4hr, 6hr) (11/17/2024 7:14 PM CDT) Pathologist [facility] Trop T hs 21 <=22 ng/L Comment: Interpretive Data For further hscTnT resources including the diagnostic algorithm and an aid in interpretation, copy and paste this link: [email or web address] Current Interpretive Data last revised 2020. Blood 11/17/2024 7:14 PM CDT 11/17/2024 10:06 PM CDT Jeremie Tucker MD LAB BLOOD ORDERABLES Final Result Performing Organization Address [facility] Co de Phone Number JEFF BRODERICK [address] [address] Department [place] [address] * eGFR (11/17/2024 7:14 PM CDT) eGFR [...] Tucker MD LAB BLOOD ORDERABLES Final Result [facility] [address] [address] [place] [address] * (ABNORMAL) Differential, auto (11/17/2024 7:14 PM CDT) Neutrophil abs 8.7(H) 1.5 - 6.5 K/cumm Imm gran abs 0.0 0.0 - 0.1 K/cumm [facility] Lymphocyte abs 2.2 0.8 - 3.3 K/cumm [facility] Monocyte abs 1.2(H) 0.2 - 0.8 K/cumm [facility] Eosinophil abs 0.2 0.0 - 0.5 K/cumm [facility] Basophil abs 0.1 0.0 - 0.1 K/cumm [facility] Neutrophil pct 70.6 % [facility] Comment: Interpretive Data Percent cell count reference ranges are not reported, since discordance with absolute values may lead to misinterpretation of CBC data. Current Interpretive Data was last revised on 2017. Imm gran pct 0.3 % [facility] Comment: Interpretive Data Percent cell count reference ranges are not reported, since discordance with absolute values may lead to misinterpretation of CBC data. Current Interpretive Data was last revised on 2017. Lymphocyte pct 17.8 % [facility] Comment: Interpretive Data Percent cell count reference ranges are not reported, since discordance with absolute values may lead to misinterpretation of CBC data. Current Interpretive Data was last revised on 2017. Monocyte pct 9.4 % [facility] Comment: Interpretive Data Percent cell count reference ranges are not reported, since discordance with absolute values may lead to misinterpretation of CBC data. Current Interpretive Data was last revised on 2017. Eosinophil pct 1.3 % [facility] Comment: Interpretive Data Percent cell count reference ranges are not reported, since discordance with absolute values may lead to misinterpretation of CBC data. Current Interpretive Data was last revised on 2017. Basophil pct 0.6 % [facility] Comment: Interpretive Data Percent cell count reference ranges are not reported, since discordance with absolute values may lead to misinterpretation of CBC data. Current Interpretive Data was last revised on 2017. Blood 11/17/2024 7:14 PM CDT 11/17/2024 7:19 PM CDT Jeremie Tucker MD LAB BLOOD ORDERABLES Final Result Performing Organization Address City/State/[facility] Co de Phone Number [facility] [address] [place] [address] * Respiratory pathogen panel Nasopharyngeal (11/17/2024 7:14 PM CDT) Pathologist [facility] Influenza A RNA Not Detected Not Detected Influenza B RNA Not Detected Not Detected [facility] RSV RNA Not Detected Not Detected [facility] COVID-19 RNA Not Detected Not Detected [facility] Coronavirus 229E RNA Not Detected Not Detected [facility] Coronavirus HKU1 RNA Not Detected Not Detected [facility] Coronavirus NL63 RNA Not Detected Not Detected [facility] Coronavirus OC43 RNA Not Detected Not Detected [facility] Adenovirus DNA Not Detected Not Detected [facility] Metapneumovirus RNA Not Detected Not Detected [facility] Rhinovirus/Enterov irus RNA Not Detected Not Detected [facility] Parainfluenza 1 RNA Not Detected Not Detected [facility] Parainfluenza 2 RNA Not Detected Not Detected [facility] Parainfluenza 3 RNA Not Detected Not Detected [facility] Parainfluenza 4 RNA Not Detected Not Detected [facility] B. pertussis DNA Not Detected Not Detected [facility] B. parapertussis DNA Not Detected Not Detected [facility] C. pneumoniae DNA Not Detected Not Detected [facility] M. pneumoniae DNA Not Detected Not Detected [facility] Comment: Interpretive Data [employer] FilmArray Respiratory Panel (RP2.1) assay is a [...] assay has FDA clearance for testing of CARTOGRAPHY TEACHER swabs. The performance characteristics of this assay have been determined by [facility]. Current interpretive data was last revised on 2021. Nasopharyngeal 11/17/2024 7: 14 PM CDT 11/17/2024 7:18 PM CDT Shanice Pacheco 11/17/2024 8:16 PM CDT Is the Patient experiencing symptoms consistent with COVID?->Yes Surveillance testing for transplant patient?->No Jeremie Tucker MD LAB MICROBIOLOGY - GENERAL ORDERABLES Final Result JEFF BRODERICK [address] Department [place] [place] [address] CH * (ABNORMAL) CBC with auto differential (11/17/2024 7:14 PM CDT) WBC 12.3(H) 3.8 - 9.9 K/cumm Hgb 15.5 13.0 - 17.5 g/dL [facility] Hct 46.6 38.9 - 50.3 % [facility] Plt 234 150 - 400 K/cumm [facility] MPV 8.7(L) 9.1 - 12.3 fL [facility] RBC 5.40 4.30 - 5.80 M/cumm [facility] MCV 86.3 81.3 - 96.4 fL [facility] MCH 28.7 27.1 - 33.3 pg [facility] MCHC 33.3 32.3 - 35.7 g/dL [facility] CH RDW CV 13.6 11.1 - 14.9 % [facility] CH RDW SD 42.5 35.7 - 48.1 fL [facility] NRBC abs 0.00 0.00 - 0.01 K/cumm [facility] Blood Venous blood specimen / Unknown 11/17/2024 7:14 PM CDT 11/17/2024 7:19 PM CDT Jeremie Tucker MD LAB BLOOD ORDERABLES Final Result Performing Organization Address City/[facility]/ZIP Co de Phone Number JEFF BRODERICK [address] [place] [address] * (ABNORMAL) Comprehensive metabolic panel [...] Tucker MD LAB BLOOD ORDERABLES Final Result [facility] [address] [address] [place] [address] * ECG 12 lead (11/17/2024 7:13 PM CDT) 11/17/2024 7:13 PM CDT Narrative [facility] - 11/17/2024 9:43 PM CDT Vent Rate: 83 bpm RR Interval: 715 msec VA Interval: 217 msec QRS Duration: 108 msec QT Interval: 376 msec QTC Interval: 416 msec P-R-T [place]: 30 - -79 - 67 degrees IMPRESSION: SINUS RHYTHM WITH FIRST DEGREE AV BLOCK INDETERMINATE AXIS INFERIOR MYOCARDIAL INFARCTION , PROBABLY OLD [40+ ms Q WAVE AND/OR ST/T ABNORMALITY IN II/aVF] ABNORMAL ECG NO CHANGE FROM PREVIOUS TRACING NOTED Electronically Signed By: Jose Godoy MD Jeremie Tucker MD ECG ORDERABLES Final Resu lt Performing Organization Address [facility] Co de Phone Number [facility] * (ABNORMAL) Albumin Creatinine Ratio, Urine (04/01/2024 11:09 AM CDT) Albumin Ur 19.5 mg/L Comment: Interpretive Data No reference range established. Current interpretive data was last revised 2019. Creatinine Ur 60.3 mg/dL [facility] [facility] Comment: Interpretive Data No reference range established. Current interpretive data was last revised 2019. Albumin Creatinine Ratio, Ur 32(H) 1 - 29 mg/g [facility] Urine 04/01/2024 11:0 9 AM CDT 04/01/2024 5:29 PM CDT Alireza Clark MD LAB URINE ORDERABLES Final Resul t Performing Organization Address [facility] de Phone Number [facility] [id number] [place] [address] * (ABNORMAL) Lipid panel (04/01/2024 11:09 AM [...] BLOOD ORDERABLES Final Resul t JEFF BRODERICK [address] [place] [address] from Last 3 Months or Most Recently Relevant to Health Maintenance Insurance MEDICARE A4 Data [facility] MEDICARE ADVANTAGE FOR [facility] MEDICARE ADVANTAGE Advance Directives For more information, please contact: [phone] * Full Code (Latest Code Status on File) Date Activated Date Inactivated Comments 01/07/2025 1:12 PM 01/11/2025 11:13 PM * Full Code Date Activated Date Inactivated Comments 12/14/2024 5:54 PM 12/21/2024 8:28 PM * Full Code Date Activated Date Inactivated Comments 06/18/2024 3:52 PM 06/19/2024 10:57 PM * Full Code Date Activated Date Inactivated Comments 02/11/2024 3:49 PM 02/12/2024 6:22 PM Care Teams Processor Grain Relationship Specialty Start Date End Date Maryann Jiménez DO PCP - General Family Medicine 07/03/22 Jose David Betancourt MD [address] [place] [address] Consulting Physician Urology 06/19/24 Theresa Lamb MD [address] [place] [address] Surgeon Cardiothoracic Surgery 12/21/24 Jatinder Jones MD [address] [place] [place] [address] Consulting Physician Cardiology 12/21/24 Miscellaneous, Not In File 12/21/24
--- OUTSIDE RECORDS SUMMARY | 2025-02-16 15:27 | XMS_ITS | Encounter Summary ---
Author Organization [facility] Address [address] [facility] [place] [address] Care Team Providers Care Gauge And Instrument Inspector Name Role Phone Syl Mcadams MD Primary Care Provider [phone] Maryann Jiménez DO Primary Care Provider [phone] Reason for Visit * Reason Onset Date Comments MEDICATION REFILL 08/21/2018 Encounter Details Date Type Department Care Team (Late st Contact Info) Description 08/21/2018 Refill [facility] [address] [place] [address] April Mendoza MD [address] [place] [address] MEDICATION REFILL Social History Tobacco Use Types Packs/Day Years Used Date Smoking Tobacco: Passive Smo ke Exposure - Never Smoker Smokeless Tobacco: Never Sex and Gender Information Value Date Recorded Sex Assigned at Not on file 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
--- OUTSIDE RECORDS SUMMARY | 2025-02-16 15:27 | XMS_ITS | CONTINUITY OF CARE DOCUMENT ---
Author Name duong jose ryara Address Unknown Organization [facility] Address [address] [place] [address] [address] [place] [address] Phone [phone] Care Team Providers Care Corporate Recruiter Name Role Phone Mary MUNOZ, Richardson Unavailable Robert MUNOZ, Jatinder Unavailable [phone] TAMERA MUNOZ, JENNI HOLLEY Unavailable PROBLEMS Condition Status Date Provider Notes Sleep apnea -Dr Genao to follow active Alicia alvarez RN Hypothyroidism active Alicia Michelle RN Hyperlipidemia active Alicia Michelle RN HTN active Alicia Michelle RN CAD s/p stents x3 active Alicia Michelle RN Syncope active Alicia Michelle RN Family History of Hyperlipidemia: completed - Huy Carver DO Status Post Medtronic (MRI Safe) REVEAL/LinQ active Huy Carver DO Physical exam completed - Huy Carver DO Status Post Pacemaker, permanent active Huy Carver DO Overweight active Alicia Michelle RN ENCOUNTERS Date Type Provider Location Encounter Diag nosis - In-person encounter Office Visit Huy Carver DO [facility] Overweight - In-person encounter Office Visit Huy Carver DO [facility] Status Post Medtronic (MRI Safe) REVEAL/LinQStatus Post Pacemaker, permanent - In-person encounter Office Visit Huy Carver DO [facility] Family History of Hyperlipidemia:Phys ical examStatus Post Pacemaker, permanent - In-person encounter Office Visit H[facility] - In-person encounter Office Visit Huy Carver DO [facility] VITAL SIGNS Date Observation Value Provider [...] Carmen O'Wu height E&M 67 [in_i] Carmen Apnote Body Mass Index (Ratio) 31.79 kg/m2 Denn [...] Maegan Ansari blood pressure, diastolic 60 mm[Hg] Chandar Ansari blood pressure, systolic 115 mm[Hg] Brandon [...] percentage of total cells, blood 0.3 % [facility] - 3 nucleated red blood cells as percent of blood leukocytes 0.0 % [facility] - 3 red blood cell (erythrocyte) [...] Policy type / Coverage type Aníbal red constitution party [place] PART B Medicare [id number] VENESSA BARGER [id number] ADVANCE DIRECTIVES Name Date POWER OF ADVANCED PRACTICE NURSE PSYCHOTHERAPIST TREATMENT PLAN Date Name Performer Electrophysiology - [...] (03/28/2017) Labs Reviewed: C reat: 0.8 (11/22/2016) [facility] Electrophysiology: Claudia frost w/ Robert [facility] Electrophysiology:un clear etiolgy. Likely vasovagal. [...] Has had no recurrent syncope since. H[facility] Electrophysiology: B P today: 120/58 P rior BP: 115/60 (11/22/2016) Labs Reviewed: C reat: 0.8 (11/22/2016) [facility] Electrophysiology:Follows w/ Gee downs [facility] Electrophysiology: u nclear etiolgy. h [...] Has had no recurrent syncope since. Huy [facility] EP: B P today: 115/[address] [facility] EP:neg stress test with normal L VF [facility] EP:unclear etiolgy. h ad 3 [...] Provider Procedure Notes S tatus EKG Huy Grayson DO completed Loop Recorder Interrogation, Remote Huy Grayson DO INTERROGATION EVALUATION REMOTE </30 D ILR SYS completed ICM Interrogation, Remote (Tech) Huy Grayson DO INTERROGATION EVAL REMOTE </30 D TECH REVIEW completed Loop Recorder Interrogation, Remote Huy Grayson DO INTERROGATION EVALUATION REMOTE </30 D ILR SYS completed ICM Interrogation, Remote (Tech) Huy Grayson DO INTERROGATION EVAL REMOTE </30 D TECH REVIEW completed Loop Recorder Interrogation, Remote Huy Grayson DO INTERROGATION EVALUATION REMOTE </30 D ILR SYS completed ICM Interrogation, Remote (Tech) Huy Grayson DO INTERROGATION EVAL REMOTE </30 D TECH REVIEW completed Loop Recorder Interrogation, Remote Huy Grayson DO INTERROGATION EVALUATION REMOTE </30 D ILR SYS completed ICM Interrogation, Remote (Tech) Huy Grayson DO INTERROGATION EVAL REMOTE </30 D TECH REVIEW completed Loop Recorder Interrogation, Remote Huy Grayson DO INTERROGATION EVALUATION REMOTE </30 D ILR SYS completed ICM Interrogation, Remote (Tech) Huy Grayson DO INTERROGATION EVAL REMOTE </30 D TECH REVIEW completed Loop Recorder Interrogation, Remote Huy Grayson DO INTERROGATION EVALUATION REMOTE </30 D ILR SYS completed ICM Interrogation, Remote (Tech) Huy Grayson DO INTERROGATION EVAL REMOTE </30 D TECH REVIEW completed Loop Recorder Interrogation, Remote Huy Grayson DO INTERROGATION EVALUATION REMOTE </30 D ILR SYS completed ICM Interrogation, Remote (Tech) Huy Grayson DO INTERROGATION EVAL REMOTE </30 D TECH REVIEW completed Loop Recorder Interrogation, Remote Huy Grayson DO INTERROGATION EVALUATION REMOTE </30 D ILR SYS completed ICM Interrogation, Remote (Tech) Huy Grayson DO INTERROGATION EVAL REMOTE </30 D TECH REVIEW completed Loop Recorder Interrogation, Remote Huy Grayson DO INTERROGATION EVALUATION REMOTE </30 D ILR SYS completed ICM Interrogation, Remote (Tech) Huy Grayson DO INTERROGATION EVAL REMOTE </30 D TECH REVIEW completed Schedule Followup Huy Glascoc k DO in 1 yr completed EKG Huy Grayson DO completed Loop Recorder Interrogation, Remote Huy Grayson DO INTERROGATION EVALUATION REMOTE </30 D ILR SYS completed ICM Interrogation, Remote (Tech) Huy Grayson DO INTERROGATION EVAL REMOTE </30 D TECH REVIEW completed Loop Recorder Interrogation, Remote Huy Grayson DO INTERROGATION EVALUATION REMOTE </30 D ILR SYS completed ICM Interrogation, Remote (Tech) Huy Grayson DO INTERROGATION EVAL REMOTE </30 D TECH REVIEW completed Loop Recorder Interrogation, Remote Huy Grayson DO INTERROGATION EVALUATION REMOTE </30 D ILR SYS completed ICM Interrogation, Remote (Tech) Huy Grayson DO INTERROGATION EVAL REMOTE </30 D TECH REVIEW completed Loop Recorder Interrogation, Remote Huy Grayson DO INTERROGATION EVALUATION REMOTE </30 D ILR SYS completed ICM Interrogation, Remote (Tech) Huy Grayson DO INTERROGATION EVAL REMOTE </30 D TECH REVIEW completed Loop Recorder Interrogation, Remote Huy Grayson DO INTERROGATION EVALUATION REMOTE </30 D ILR SYS completed ICM Interrogation, Remote (Tech) Huy Grayson DO INTERROGATION EVAL REMOTE </30 D TECH REVIEW completed Loop Recorder Interrogation, Remote Huy Grayson DO INTERROGATION EVALUATION REMOTE </30 D ILR SYS completed ICM Interrogation, Remote (Tech) Huy Grayson DO INTERROGATION EVAL REMOTE </30 D TECH REVIEW completed Loop Recorder Interrogation, Remote Huy Grayson DO INTERROGATION EVALUATION REMOTE </30 D ILR SYS completed ICM Interrogation, Remote (Tech) Huy Grayson DO INTERROGATION EVAL REMOTE </30 D TECH REVIEW completed Loop Recorder Interrogation, Remote Huy Grayson DO INTERROGATION EVALUATION REMOTE </30 D ILR SYS completed ICM Interrogation, Remote (Tech) Huy Grayson DO INTERROGATION EVAL REMOTE </30 D TECH REVIEW completed Loop Recorder Interrogation, Remote Huy Grayson DO INTERROGATION EVALUATION REMOTE </30 D ILR SYS completed ICM Interrogation, Remote (Tech) Huy Grayson DO INTERROGATION EVAL REMOTE </30 D TECH REVIEW completed Loop Recorder Interrogation, Remote Huy Grayson DO INTERROGATION EVALUATION REMOTE </30 D ILR SYS completed ICM Interrogation, Remote (Tech) Huy Grayson DO INTERROGATION EVAL REMOTE </30 D TECH REVIEW completed EKG Huy Grayson DO completed SNOMED-CT: [id number] Current Medications Documented Huy Grayson DO completed Loop Recorder Interrogation, Remote Huy Grayson DO INTERROGATION EVALUATION REMOTE </30 D ILR SYS completed ICM Interrogation, Remote (Tech) Huy Grayson DO INTERROGATION EVAL REMOTE </30 D TECH REVIEW completed Loop Recorder Interrogation, Remote Huy Grayson DO INTERROGATION EVALUATION REMOTE </30 D ILR SYS completed ICM Interrogation, Remote (Tech) Huy Grayson DO INTERROGATION EVAL REMOTE </30 D TECH REVIEW completed Loop Recorder Interrogation, Remote Huy Grayson DO INTERROGATION EVALUATION REMOTE </30 D ILR SYS completed ICM Interrogation, Remote (Tech) Huy Grayson DO INTERROGATION EVAL REMOTE </30 D TECH REVIEW completed Loop Recorder Interrogation, Remote Huy Grayson DO INTERROGATION EVALUATION REMOTE </30 D ILR SYS completed ICM Interrogation, Remote (Tech) Huy Grayson DO INTERROGATION EVAL REMOTE </30 D TECH REVIEW completed EKG Huy Grayson DO completed SNOMED-CT: [id number] Current Medications Documented Huy Grayson DO completed Loop Recorder Interrogation, Remote Huy Grayson DO INTERROGATION EVALUATION REMOTE </30 D ILR SYS completed ICM Interrogation, Remote (Tech) Huy Grayson DO INTERROGATION EVAL REMOTE </30 D TECH REVIEW completed Loop Recorder Interrogation, Remote Huy Grayson DO INTERROGATION EVALUATION REMOTE </30 D ILR SYS completed ICM Interrogation, Remote (Tech) Huy Grayson DO INTERROGATION EVAL REMOTE </30 D TECH REVIEW completed Loop Recorder Interrogation, Remote Huy Grayson DO INTERROGATION EVALUATION REMOTE </30 D ILR SYS completed ICM Interrogation, Remote (Tech) Huy Grayson DO INTERROGATION EVAL REMOTE </30 D TECH REVIEW completed Loop Recorder Interrogation, Remote Huy Grayson DO INTERROGATION EVALUATION REMOTE </30 D ILR SYS completed ICM Interrogation, Remote (Tech) Huy Grayson DO INTERROGATION EVAL REMOTE </30 D TECH REVIEW completed EKG Huy Grayson DO completed SNOMED-CT: [id number] Current Medications Documented Huy Grayson DO completed
--- OUTSIDE RECORDS SUMMARY | 2025-02-16 15:27 | XMS_ITS | Encounter Summary ---
Author Organization [facility] Healthcare Address [address] [place] [address] Care Team Providers Care Software Development Coordinator Name Role Phone Maryann Jiménez DO Primary Care Provider + Jose David Betancourt MD Unavailable [phone] Ty Lamb MD Unavailable [phone] Jatinder Jones MD Unavailable [phone] Miscellaneous, Not In File Unavailable Unava ilable Encounter Details Date Type Department Care Team (Late st Contact Info) Description 01/05/2025 [facility] Post Discharge Follow up phone call [facility] [address] [place] [address] Ariella Larsen Social History Tobacco [...] materials from doctor or pharmacy Never 12/23/2024 [facility] Utilities Answer Date Recorded In the [...] often do you attend chur ch or zoroastrianism services? More than 4 times per year 12/17/2024 Do you belong to any clubs o r organizations such as buddhist groups, unions, fraternal or athletic groups, or [...] staff should administer the PHQ-9) 0 08/17/2024 [facility] of Occupat ional Health - Occupational [...] any time in the past 12 m [facility], were you homeless or living in a fci (including now)? No 12/17/2024 Personal Safety Answer Date Recorded Have you ever been in or are you currently in a harmful physical or emotional relationship or is someone making you feel afraid or unsafe? 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 Gender Identity Male 01/23/2020 12:25 AM CDT [...] documented as of this encounter Care Teams Software Development Coordinator Relationship Specialty Start Date End Date Jiménez Maryann DO Missy PCP - General Family Medicine 07/03/22 Jose David Betancourt MD [address] [facility] [address] [place], [place] [address] Consulting Physician Urology 06/19/24 Ty Lamb MD [address] [facility] [address] [place], [place] [address] Surgeon Cardiothoracic Surgery 12/21/24 Jatinder Jones MD [address] [place] [address] Consulting Physician Cardiology 12/21/24 Miscellaneous, Not In File 12/21/24 documented as of this encounter
--- OUTSIDE RECORDS SUMMARY | 2025-02-16 15:27 | XMS_ITS | Clinical Summary ---
Author Organization [facility] [employer] Address [address] [place] [address] Care Team Providers Care Board Of Directors Name Role Phone Maryann Jiménez DO Primary Care Provider [phone] Source Comments [facility] [employer],non-owned Affiliates and Associated Physician Practices is amultiple site organization consisting of ambulatory clinics and hospital sitesin [place], [place], [place] and [place]. This disclosure is being madepursuant to the Care Everywhere program and may not contain all information available regarding this patient. 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 eGFR by MDRD 82 > OR = [...] 46 U/L [facility] Comment: Test Performed at: [facility] [address] [place] [address] IVY DERAS DO,MPH Blood BLOOD SPECIMEN / Unknown 12/21/2020 11:20 AM CDT 12/21/2020 11:21 AM CDT Nico Jones MD LAB - CHEMISTRY ORDERABLES F inal Result [facility] [address] [place] [address] from Last 3 Months or Most Recently Relevant to Health Maintenance Insurance [employer] MEDICARE [facility] MANAGED MEDICARE ADV MEDICARE [facility] MANAGED MEDICARE ADV [facility] MANAGED MEDICARE ADV [facility] MANAGED MEDICARE ADV Care Teams Board Of Directors Relationship Specialty Start Date End Date Maryann Jiménez DO [address] [facility] [address] [place] [address] PCP - General 09/07/22
--- OUTSIDE RECORDS SUMMARY | 2025-02-16 15:28 | XMS_ITS | Encounter Summary ---
Author Organization [facility] Healthcare Address [address] [place] [address] Care Team Providers Care Warble Saw Operator Name Role Phone Maryann Jiménez DO Primary Care Provider + Jose David Betancourt MD Unavailable [phone] Ty Lamb MD Unavailable [phone] Jatinder Jones MD Unavailable [phone] Miscellaneous, Not In File Unavailable Unava ilable Encounter Details Date Type Department Care Team (Late st Contact Info) Description 01/01/2025 Results Follow-Up [facility]ient Care at [address] [place] [address] Nayely Sharp, NATURAL GAS TECHNICIAN [address] [place] [address] XR Chest Pa Lateral 2 [...] materials from doctor or pharmacy Never 12/23/2024 [facility] Utilities Answer Date [...] often do you attend chur ch or presybeterian services? More than 4 times per year 12/17/2024 Do you belong to any clubs o r organizations such as scientologist groups, unions, fraternal or athletic groups, or [...] staff should administer the PHQ-9) 0 08/17/2024 [facility] of Occupat ional Health - Occupational Stress [...] any time in the past 12 m [facility], were you homeless or living in a group home (including now)? No 12/17/2024 Personal Safety Answer Date Recorded Have you ever been in or are you currently in a harmful physical or emotional relationship or is someone making you feel afraid or unsafe? 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 Gender Identity Male 01/23/2020 12:25 AM [...] documented as of this encounter Care Teams Warble Saw Operator Relationship Specialty Start Date End Date Maryann Jiménez DO PCP - General Family Medicine 07/03/22 Jose David Betancourt MD [address] [address] Consulting Physician Urology 06/19/24 Ty Lamb MD [address] [facility] [address] [place] [address] Surgeon Cardiothoracic Surgery 12/21/24 Jatinder Jones MD [address] [place] [address] Consulting Physician Cardiology 12/21/24 Miscellaneous, Not In File 12/21/24 documented as of this encounter
--- OUTSIDE RECORDS SUMMARY | 2025-02-16 15:28 | XMS_ITS | Continuity of Care Document ---
Author Name [facility] Organization [facility] Care Team Providers Care Director Student Union Name Role Phone [facility] Unavailable Unavailable Problems Combined list of problems from Department of Defense and Veterans Affairs facilities. It does not include entries that were removed or entered in error. Problem Status Onset Date Problem Type Date of Resolution Comments Source Hearing Loss, Sensorineural, Unspecified Active Condition [facility] Medications Combined list of outpatient medications from Department of [facility] and [facility] facilities.Medications provided include 1) outpatient medications from the last 15 months, and 2) patient-reported medications. Medication Details Route Status Patient Instructions Prescription Expires Prescription Number Last Dispense Date Ordering Provider Order Date Order Qty Source Alcohol Antiseptic (Alcohol Swabs Eq.) Pads 70% Topical For external use. 01/14/2025 [id number] 4 [address] [place] [address] [facility] Alcohol Antiseptic (Alcohol Swabs Eq.) Pads 70% Topical For external use. 11/20/2024 [id number] 4 [address] [place] [address] [facility] ([facility] [place] alcohol prep pad [100EA] See Instruct erin, [...] Injection, 0.5mL Autoinjecto r refriger ate 11/20/2024 [id number] 4 [address] [place] [address]) FINASTERIDE 5 MG ORAL TAB Do not take if . 11/20/2024 [id number] 4 [address] [place] [address]) finasteride 5 mg tablet 5 mg, Oral, [...] [employer] 3 ml SYRINGE Active [id number] 2023 15 Pharmac y Data Transac [...] with your doctor before becoming . 01/14/2025 [id number] 4 2023 180 [facility] ([facility] [place] [place]) metFORMIN XR 500 mg/24 hour tablet See [...] [employer] .5 ml SYRINGE Active [id number] 2023 6 Pharmac y Data Transac tion [...] Site Reaction Lot Number CVX Code Drug Lead Furnace Operator Status Comments Source influenza, high-dose, quadrivalent 2020 [facility], () Not Given influenza , high-dose , quadrival ent [facility] influenza, high-dose, quadrivalent 2019 [facility], () Not Given influenza , high-dose , quadrival ent [facility] Influenza, high dose seasonal 2018 [facility], () Not Given Influenza , high dose seasonal [facility] Influenza, seasonal, injectable, preservative free 2014 [facility], () Not Given Influenza , seasonal, injectabl e, preservat stefany free [facility] Influenza, seasonal, injectable 2013 SARAH HENRY () Not Given Influenza , seasonal, injectabl e DoD Procedures Combined list of: 1) Procedures from Department of Veterans Affairs facilities going back up to thelast 18 months, not all [place] non-surgical procedures are included; 2) All procedures [...] at Department of Defense and Veterans Affairs ([place]).VA Functional [place] Measurement (FIM) Scale: 1 = Total Assistance (Subject = 0% +), 2 = Maximal Assistance (Subject = 25% +), 3 = Moderate Assistance (Subject = 50% +), 4 = Minimal Assistance (Subject = 75% +), 5 = Supervision, 6 = Modified Hopewell (Device), 7 = Complete [place] (Timely, Safely). Assessment Date/Time Source Assessment Type Assessment Skill Assessment Score Assessment Details No data available for this section
--- OUTSIDE RECORDS SUMMARY | 2025-02-16 15:28 | XMS_ITS | Encounter Summary ---
Author Organization [facility] Healthcare Address [address] [place] [address] Care Team Providers Care Asbestos Textile Supervisor Name Role Phone Maryann Jiménez DO Primary Care Provider + Jose David Betancourt MD Unavailable [phone] Ty Lamb MD Unavailable [phone] Jatinder Jones MD Unavailable [phone] Miscellaneous, Not In File Unavailable Unava ilable Encounter Details Date Type Department Care Team (Late st Contact Info) Description 01/25/2025 [facility] Post Discharge Follow up phone call [facility] [address] [place] [address] Ariella Larsen Social History Tobacco [...] materials from doctor or pharmacy Never 01/27/2025 [facility] Utilities Answer Date Recorded In the [...] How often do you attend chur or scientologist services? More than 4 times per year 01/11/2025 Do you belong to any clubs o r organizations such as mormonism groups, unions, fraternal or athletic groups, or [...] staff should administer the PHQ-9) 0 08/17/2024 [facility] - [...] any time in the past 12 m [facility], were you homeless or living in a usp (including now)? No 01/11/2025 Personal Safety Answer Date Recorded Have you ever been in or are you currently in a harmful physical or emotional relationship or is someone making you feel afraid or unsafe? 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 Gender Identity Male 01/23/2020 12:25 AM CDT [...] on filedocumented in this encounter Care Teams Asbestos Textile Supervisor Relationship Specialty Start Date End Date Maryann Jiménez DO PCP - General Family Medicine 07/03/22 Jose David Betancourt MD [address] [place] [address] Consulting Physician Urology 06/19/24 Ty Lamb MD [address] [facility] [address] [place] [address] Surgeon Cardiothoracic Surgery 12/21/24 Jatinder Jones MD [address] [place] [address] Consulting Physician Cardiology 12/21/24 Miscellaneous, Not In File 12/21/24 documented as of this encounter
--- NOTE | 2025-02-16 16:07 | ECG_ITS ---
Test Date: 2025-02-16 16:22:49 Measurements Intervals [place] Rate: 89 P: 43 HI: 272 QRS: 121 QRSD: 92 T: 78 QT: 368 QTc: 448 Interpretive Statements SINUS RHYTHM WITH FIRST DEGREE AV BLOCK RIGHT AXIS DEVIATION INCOMPLETE RIGHT BUNDLE BRANCH BLOCK CONSIDER INFERIOR INFARCT, AGE INDETERMINATE BORDERLINE T WAVE ABNORMALITY- ANT/HIGH LAT LEADS BASELINE ARTIFACT- I, II, AVR ABNORMAL ECG Compared to ECG 02/16/2025 13:13:43 NO SIGNIFICANT CHANGE Electronically Signed On 02-16-2025 16:54:22 CDT by Winston Wakefield D.O.
[2025-02-16 16:23] VITALS: BP 172/80; PULSE 92; RESP 19; O2SAT 98
[2025-02-16 17:05] LABS: Troponin I < 0.012 ng/mL (0.000-0.034)
[2025-02-16 18:00] VITALS: BP 155/82; PULSE 85; RESP 14; O2SAT 97
== END 2025-02-16 18:32 | disposition home or self-care (01) ==
PROVIDERS: Emergency Medicine; Emergency Provider Physician Assistant; PCP Family Medicine
DX: R06.02 Shortness of breath (principal); Z98.61 Coronary angioplasty status; I44.0 Atrioventricular block, first degree; E78.5 Hyperlipidemia, unspecified; G47.30 Sleep apnea, unspecified; Z86.73 Personal history of transient ischemic attack (TIA), and cerebral infarction without residual deficits; I10 Essential (primary) hypertension; I25.10 Atherosclerotic heart disease of native coronary artery without angina pectoris; E03.9 Hypothyroidism, unspecified; M19.90 Unspecified osteoarthritis, unspecified site; E11.9 Type 2 diabetes mellitus without complications; Z95.0 Presence of cardiac pacemaker; Z87.442 Personal history of urinary calculi; Z79.4 Long term (current) use of insulin
CPT/HCPCS: 36415; 71046; 71275; 80053; 83880; 84484; 85025; 85610; 85730; 93005; 99284; Q9967

== ENCOUNTER 2025-03-23 08:20 | Outpatient (CLI) | payer MEDICARE, OTHER, SELFPAY ==
--- OUTSIDE RECORDS SUMMARY | 2025-03-23 08:26 | XMS_ITS | Continuity of Care Document ---
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 It does not include entries that were removed or entered in error. Problem Status Onset Date Problem Type Date of Resolution Comments Source Hearing Loss, Sensorineural, Unspecified Active Condition [facility] Medications Combined list of outpatient medications from Department of [facility] and [facility] facilities.Medications provided include 1) outpatient medications from the last 15 months, and 2) patient-reported medications. Medication Details Route Status Patient Instructions Prescription Expires Prescription Number Last Dispense Date Ordering Provider Order Date Order Qty Source Alcohol Antiseptic (Alcohol Swabs Eq.) Pads 70% Topical For external use. 01/14/2025 [id number] 4 2023 200 [employer] ([facility]) alcohol prep pad [100EA] See Instruct erin, [...] alcohol prep pad [100EA] See Instruct erin, Use topicall y to cleanse area before [...] total refill(s ), Hard Stop Complet ed 03/02/2025 4 2024 200.0 Ambulat ory Pharmac y celecoxib 100 [...] [employer] 3 ml SYRINGE Active [id number] 4 2023 15 Pharmac y Data Transac [...] with your doctor before becoming . 01/14/2025 [id number] 4 [address] [facility] ([facility]) metFORMIN XR 500 mg/24 hour tablet See [...] [employer] .5 ml SYRINGE Active [id number] 4 2023 6 Pharmac y Data Transac [...] Site Reaction Lot Number CVX Code Drug Doorkeeper Status Comments Source influenza, high-dose, quadrivalent 2020 [facility], () Not Given influenza , high-dose , quadrival ent DoD influenza, high-dose, quadrivalent 2019 [facility], () Not Given influenza , high-dose , quadrival ent [facility] Influenza, high dose seasonal 2018 ALUL, () Not Given Influenza , high dose seasonal [facility]D Influenza, seasonal, injectable, preservative free 2014 [facility], () Not Given Influenza , seasonal, injectabl e, preservat stefany free 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 of Veterans Affairs facilities going back up to thelast 18 months, not all [place] non-surgical procedures are included; 2) All procedures [...] Plan No data available for this section 03/23/2025 Ambulatory Pharmacy Functional Status Combined list of recent functional and cognitive assessments recorded at [facility] and [facility] [place] Functional Whiting Measurement (FIM) Scale: 1 = Total Assistance (Subject = 0% +), 2 = Maximal Assistance (Subject = 25% +), 3 = Moderate Assistance (Subject = 50% +), 4 = Minimal Assistance (Subject = 75% +), 5 = Supervision, 6 = Modified Whiting (Device), 7 = Complete Whiting (Timely, Safely). Assessment Date/Time Source Assessment Type Assessment Skill Assessment Score Assessment Details No data available for this section
--- OUTSIDE RECORDS SUMMARY | 2025-03-23 08:26 | XMS_ITS | Encounter Summary ---
Author Organization [facility] Address [address] [place] [address] Care Team Providers Care Playground Equipment Erector Name Role Phone Syl Mcadams MD Primary Care Provider [phone] Maryann Jiménez DO Primary Care Provider [phone] Reason for Visit * Reason Onset Date Comments MEDICATION REFILL 11/08/2020 Encounter Details Date Type Department Care Team (Late st Contact Info) Description 11/08/2020 Refill [facility] [address] [place] [address], [place] [address] Nico Jones MD [address] [place] [address] [place] [address] MEDICATION REFILL Social History Tobacco Use Types Packs/Day Years Used Date Smoking Tobacco: Passive Smo ke Exposure - Never Smoker Smokeless Tobacco: Never Alcohol Use Standard Drinks/Week Comments Yes 0 (1 standard drink = 0.6 oz pur e alcohol) occaisional Sex and Gender Information Value Date Recorded Sex Assigned at Not on file 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 Gender Identity Not on file Sexual [...] 50 (fifty) mg subcutaneously every 7 days DESK ADMINISTRATOR documented in this encounter Plan of Treatment Not on file documented as of this encounter Visit Diagnoses Diagnosis Psoriatic arthritis (HCC)- Primary Psoriatic arthropathy documented in this encounter Care Teams Playground Equipment Erector Relationship Specialty Start Date End Date Syl Mcadams MD [address] [place] [address] PCP - General 04/29/18 09/06/22 Maryann Jiménez DO [address] [facility] [address] [place] [address] PCP - General 09/07/22 documented as of this encounter
--- OUTSIDE RECORDS SUMMARY | 2025-03-23 08:26 | XMS_ITS | Clinical Summary ---
Author Organization [facility] Address [address] [place] [address] Care Team Providers Care Leak Inspector Name Role Phone Maryann Jiménez DO Primary Care Provider [phone] Source Comments [facility],non-owned Affiliates and Associated Physician Practices is amultiple site organization consisting of ambulatory clinics and hospital sitesin [place], [place], [place] and [place]. This disclosure is being madepursuant to the Care Everywhere program and may not contain all information available regarding this patient. 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 eGFR by MDRD 82 > OR = [...] 46 U/L [facility] Comment: Test Performed at: Local [facility] [address] [place] [address] IVY DERAS DO,MPH Blood BLOOD SPECIMEN / Unknown 12/21/2020 11:20 AM CDT 12/21/2020 11:21 AM CDT Nico Jones MD LAB - CHEMISTRY ORDERABLES F inal Result [facility] [address] [place] [address] from Last 3 Months or Most Recently Relevant to Health Maintenance Insurance [employer] MEDICARE [facility] MANAGED MEDICARE ADV MEDICARE [facility] MANAGED MEDICARE ADV [facility] MANAGED MEDICARE ADV [facility] MANAGED MEDICARE ADV Care Teams Leak Inspector Relationship Specialty Start Date End Date Maryann Jiménez DO [address] [facility] [address] [place] [address] PCP - General 09/07/22
--- OUTSIDE RECORDS SUMMARY | 2025-03-23 08:26 | XMS_ITS | Encounter Summary ---
Author Organization [facility] Health Address [address] [place] [address] Care Team Providers Care Fingerprint Technician Name Role Phone Unknown, Provider Primary Care Provider Unavaila ble Chai Giraldo MD Primary Care Provider [phone] Syl Mcadams MD Primary Care Provider [phone] Maryann Jiménez DO Primary Care Provider [phone] Encounter Details Date Type Department Care Team (Late st Contact Info) Description 03/03/2012 [facility] Liliana Owens MD [address] [facility] [address] [place] [address] Social History Tobacco Use Types Packs/Day Years Used Date Smoking Tobacco: Never Assessed Sex and Gender Information Value Date Recorded Sex Assigned at Not on file 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 Gender Identity Not on file Sexual Orientation Not on file documented as of this encounter Plan of Treatment Not on file documented as of this encounter Visit Diagnoses Not on filedocumented in this encounter Care Teams Fingerprint Technician Relationship Specialty Start Date End Date Unknown, Provider PCP - General 02/27/10 01/19/14 Chai Giraldo MD [address] [place] [id number] PCP - General 12/24/17 04/28/18 Syl Mcadams MD [address] [place] [address] PCP - General 04/29/18 09/06/22 Maryann Jiménez DO [address] [facility] [address] [place] [address] PCP - General 09/07/22 documented as of this encounter
--- OUTSIDE RECORDS SUMMARY | 2025-03-23 08:26 | XMS_ITS | Encounter Summary ---
Author Organization [facility] Address [address] [place] [address] Care Team Providers Care Metal Numerical Tool Programmer Name Role Phone Syl Mcadams MD Primary Care Provider [phone] Maryann Jiménez DO Primary Care Provider [phone] Reason for Visit * Reason Onset Date Comments MEDICATION REFILL 08/21/2018 Encounter Details Date Type Department Care Team (Late st Contact Info) Description 08/21/2018 Refill [facility] [address] [place] [address] April Mendoza MD [address] [place] [address] MEDICATION REFILL Social History Tobacco Use Types Packs/Day Years Used Date Smoking Tobacco: Passive Smo ke Exposure - Never Smoker Smokeless Tobacco: Never Sex and Gender Information Value Date Recorded Sex Assigned at Not on file 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
--- OUTSIDE RECORDS SUMMARY | 2025-03-23 08:26 | XMS_ITS | Data Portability ---
Author Organization [facility] Address [address] [place] [address] Assessment Encounter Date Assessment Date Assessment LastModified [...] Discussed vaccinations, and recommended screenings as per [facility]. Discussed Lifestyle modifications to Improve LDL,Blood [...] blood 2022 023 JULIO [facility], [address] [place], [address], 3 16:11:43 microalbumi n/creatinin e, mass ratio, urine 2022 023 JULIO [facility], [address] [place], [address], 3 16:11:38 CBC w/ auto diff 2022 023 JULIO [facility], [address] [place], [address], 3 16:11:28 CMP, serum or plasma 2022 023 JULIO [facility], [address] [place] [facility], [address], 3 16:11:32 lipid panel, serum 2022 023 JULIO [facility], [address] [place] [facility] [place], [address], 3 16:11:36 testosteron e, free + total, serum 2022 023 [email or web address] [facility], [address] [place] [facility] [place], [address], 3 09:37:09 vitamin B12 + folate, serum or blood 2022 023 JULIO [facility], [address] [place], [address], 3 16:11:39 PSA, total, serum or plasma 2022 023 JULIO [facility], [address] [place], [address], 3 16:11:44 Hepatitis C IgG Ab, qual, serum 2022 023 JULIO [facility], [address] [place], [address], 3 16:11:40 TSH + free T4, serum 2022 023 [place] [facility], [address] [place], [address], 3 16:11:24 Referral endocrinolo gy referral 2022 023 [facility] Not available 4 14:16:57 rheumatolog ist referral 2022 023 [facility] Fernandez Vicente MD, [address] [place], [address], 4 13:54:02 cardiologis t referral 2022 023 [email or web address] Cierra GRACE, [address] [place], [address], 3 12:34:41 hand surgeon referral - Pls call Pt to [facility]. Thank you 2022 023 eric [facility], [address], [place], [address], 4 08:32:44 physical therapist referral - Pls call pt to shaun Thank you Pt completed R rotator cuff repair in [facility] on July 03 2023. Needing PT twice a week for 4 weeks. 2022 023 JULIO [facility], [address], [place], [address], 3 09:18:52 Procedures None recorded. Surgeries None recorded. Imaging electrocard iogram 2023 024 [facility], [address], [place], [address], 4 09:10:04 Medication Orders None recorded. Patient TargetsNo targets recorded. Patient Instructions Encounter Date Encounter Id Patient Instructions Last Modified By Organization Details Last Modified Time 08/13/2023 [id number] advance care planning: care instructions Not available [...] healthy habits in these areas. Please visit [email or web address] [email or web address] for a listing of available resources. If you have any further questions or concerns regarding the above areas of your health, please discuss at your next primary care visit or, for more urgent concerns, call us at [address] [place] [address] ([phone]) to schedule an appointment. [email or web address] Not available 08/02/2023 11:39:51 08/19/2023 [id number] gastroesophageal reflux disease (GERD): care instructions [email or web address] Not available 08/19/2023 15:30:26 influenza (flu) vaccine: care instructions [email or web address] Not available 08/19/2023 15:30:26 hypothyroidism: care instructions [email or web address] Not available 08/19/2023 14:29:32 During your most recent Annual Preventive Visit, we discussed concerns with balance (fall preventive), bladder control (including leaking of urine) and the importance of adequate exercise and physical activity. If anything has changed or you wish to investigate other supportive programs and services available to help you develop or maintain healthy habits in these areas, please visit [email or web address] ence for a listing of available resources. If you have any further questions or concerns regarding fall prevention/balance, bladder/urine leakage or exercise, please discuss at your next primary care visit or, for more urgent concerns, call us at [address] [place] [address] ([phone]) to schedule an appointment. Not available 08/16/2023 10:31:40 Reason for Referral Physical Therapist Referral for Postoperative care Pls call pt to [facility] Thank you Pt completed R rotator cuff repair in [facility] on July 03 2023. Needing PT twice a week for 4 weeks. Referring Physician: Vish Fields [facility], Encounter Date: 08/13/2023 Hand Surgeon Referral for Pa in in right thumb Pls call Pt to [facility]. Thank you Referring Physician: [facility], Encounter Date: 08/13/2023 Endocrinology Referral for T ype 2 diabetes mellitus Referring Physician: Harshil Jiang [facility], Encounter Date: 08/19/2023 Lab Assistant Referral for Psoriatic arthritis Referring Physician: Harshil Jiang [facility], Encounter Date: 08/19/2023 Dev Manager Referral for Ca rdiac pacemaker in situ Referring Physician: Harshil Jiang [facility], Encounter Date: 08/19/2023 Results Created Date Observation Date Name Description Value Unit Range Abnormal Flag Note LastModifiedBy Organization Detail LastModifiedTime 08/13/20 23 08/13/2023 maureen buckley* Unknown Analyte normal Not Available [facility] [address] [place], [address], 08/02/2023 11:39:59 08/13/20 23 08/13/2023 heari ng scree ina* Unknown Analyte normal Not Available [facility] [address] [place] [address], [phone], 08/02/2023 11:39:59 08/13/20 23 08/13/2023 heari ng scree ina* Unknown Analyte normal Not Available [facility] [address] [place], [address], 08/02/2023 11:39:59 08/13/20 23 08/13/2023 heari ng scree ina* Unknown Analyte normal Not Available [facility] [address] [place] [address], [phone], 08/02/2023 11:39:59 08/13/20 23 08/13/2023 heari ng scree ina* Unknown Analyte normal Not Available [facility] [address] [place] [address], [address], 08/02/2023 11:39:59 08/13/20 23 08/13/2023 heari ng scree ina* Unknown Analyte normal Not Available [facility] [address] [place] [address], [address], 08/02/2023 11:39:59 08/13/20 23 08/13/2023 heari ng scree ina* Unknown Analyte abnorm al Not Available [facility] [address] [place] [address], [phone], 08/02/2023 11:39:59 08/13/20 23 08/13/2023 heari ng scree ina* Unknown Analyte abnorm al Not Available [facility] [address] [place] [address], [address], 08/02/2023 11:39:59 08/14/20 23 08/15/2023 TSH+F REE T4 TSH 2.970 uIU/m L 0.450- 4.500 Not Available [facility] ([facility]) [address] [place], [address], 08/15/2023 16:11:23 08/14/20 23 08/15/2023 TSH+F REE T4 T4,free(dire ct) 1.32 NG/dL 0.82-1 .77 Not Available [facility] ([facility]) [address] [place], [address], 08/15/2023 16:11:23 08/14/20 23 08/15/2023 CBC WITH DIFFE RENTI AL/PL ATELE T WBC 7.6 x10e3 /uL 3.4-10 .8 Not Available [facility] ([facility]) [address] [place], [address], 08/15/2023 16:11:27 08/14/20 23 08/15/2023 CBC WITH DIFFE RENTI AL/PL ATELE T RBC 5.40 x10e6 /uL 4.14-5 .80 Not Available [facility] ([facility]) [address] [place], [address], 08/15/2023 16:11:27 08/14/20 23 08/15/2023 CBC WITH DIFFE RENTI AL/PL ATELE T hemoglobin 16.0 g/dL 13.0-1 7.7 Not Available [facility] ([facility]) [address] [place], [address], 08/15/2023 16:11:27 08/14/20 23 08/15/2023 CBC WITH DIFFE RENTI AL/PL ATELE T hematocrit 45.5 % 37.5-5 1.0 Not Available [facility] ([facility]) [address] [place], [address], 08/15/2023 16:11:27 08/14/20 23 08/15/2023 CBC WITH DIFFE RENTI AL/PL ATELE T MCV 84 fL 79-97 Not Available [facility] ([facility]) [address] [facility], [place], [address], 08/15/2023 16:11:27 08/14/20 23 08/15/2023 CBC WITH DIFFE RENTI AL/PL ATELE T MCH 29.6 pg 26.6-3 3.0 Not Available [facility] ([facility]) [address] [facility], [place], [address], 08/15/2023 16:11:27 08/14/20 23 08/15/2023 CBC WITH DIFFE RENTI AL/PL ATELE T MCHC 35.2 g/dL 31.5-3 5.7 Not Available [facility] ([facility]) [address] [facility], [place], [address], 08/15/2023 16:11:27 08/14/20 23 08/15/2023 CBC WITH DIFFE RENTI AL/PL ATELE T RDW 12.9 % 11.6-1 5.4 Not Available [facility] ([facility]) [address] [facility], [place], [address], 08/15/2023 16:11:27 08/14/20 23 08/15/2023 CBC WITH DIFFE RENTI AL/PL ATELE T platelets 254 x10e3 /uL 150-45 0 Not Available [facility] ([facility]) [address] [facility], [place], [address], 08/15/2023 16:11:27 08/14/20 23 08/15/2023 CBC WITH DIFFE RENTI AL/PL ATELE T neutrophils 62 % not estab. Not Available [facility] ([facility]) [address] [facility], [place], [address], 08/15/2023 16:11:27 08/14/20 23 08/15/2023 CBC WITH DIFFE RENTI AL/PL ATELE T lymphs 27 % not estab. Not Available [facility] ([facility]) [address] [facility], [place], [address], 08/15/2023 16:11:27 08/14/20 23 08/15/2023 CBC WITH DIFFE RENTI AL/PL ATELE T monocytes 8 % not estab. Not Available [facility] ([facility]) [address] [facility], [place], [address], 08/15/2023 16:11:27 08/14/20 23 08/15/2023 CBC WITH DIFFE RENTI AL/PL ATELE T eos 2 % not estab. Not Available [facility] ([facility]) [address] [facility], [place], [address], 08/15/2023 16:11:27 08/14/20 23 08/15/2023 CBC WITH DIFFE RENTI AL/PL ATELE T basos 1 % not estab. Not Available [facility] ([facility]) [address] [facility], [place], [address], 08/15/2023 16:11:27 08/14/20 23 08/15/2023 CBC WITH DIFFE RENTI AL/PL ATELE T immature cells REFINERY OPERATOR ALKYLATION Not Available [facility] ([facility]) [address] [facility], [place], [address], 08/15/2023 16:11:27 08/14/20 23 08/15/2023 CBC WITH DIFFE RENTI AL/PL ATELE T neutrophils (absolute) 4.8 x10e3 /uL 1.4-7. 0 Not Available [facility] ([facility]) [address] [facility], [place], [address], 08/15/2023 16:11:27 08/14/20 23 08/15/2023 CBC WITH DIFFE RENTI AL/PL ATELE T lymphs (absolute) 2.0 x10e3 /uL 0.7-3. 1 Not Available [facility] ([facility]) [address] [facility], [place], [address], 08/15/2023 16:11:27 08/14/20 23 08/15/2023 CBC WITH DIFFE RENTI AL/PL ATELE T monocytes(ab solute) 0.6 x10e3 /uL 0.1-0. 9 Not Available [facility] ([facility]) [address] [facility], [place], [address], 08/15/2023 16:11:27 08/14/20 23 08/15/2023 CBC WITH DIFFE RENTI AL/PL ATELE T eos (absolute) 0.1 x10e3 /uL 0.0-0. 4 Not Available [facility] ([facility]) [address] [facility], [place], [address], 08/15/2023 16:11:27 08/14/20 23 08/15/2023 CBC WITH DIFFE RENTI AL/PL ATELE T baso (absolute) 0.1 x10e3 /uL 0.0-0. 2 Not Available [facility] ([facility]) [address] [facility], [place], [address], 08/15/2023 16:11:27 08/14/20 23 08/15/2023 CBC WITH DIFFE RENTI AL/PL ATELE T immature granulocytes 0 % not estab. Not Available [facility] ([facility]) [address] [place], [address], 08/15/2023 16:11:27 08/14/20 23 08/15/2023 CBC WITH DIFFE RENTI AL/PL ATELE T immature grans (abs) 0.0 x10e3 /uL 0.0-0. 1 Not Available [facility] ([facility]) [address] [place], [address], 08/15/2023 16:11:27 08/14/20 23 08/15/2023 CBC WITH DIFFE RENTI AL/PL ATELE T NRBC REFINERY OPERATOR ALKYLATION Not Available [facility] ([facility]) [address] [facility], [place], [address], 08/15/2023 16:11:27 08/14/20 23 08/15/2023 CBC WITH DIFFE RENTI AL/PL ATELE T hematology comments: REFINERY OPERATOR ALKYLATION Not Available [facility] ([facility]) [address] [facility], [place], [address], 08/15/2023 16:11:27 08/14/20 23 08/15/2023 COMP. METAB OLIC PANEL (14) glucose 154 mg/dL 70-99 above high normal Not Available [facility] ([facility]) [address] [facility], [place], [address], 08/15/2023 16:11:32 08/14/20 23 08/15/2023 COMP. METAB OLIC PANEL (14) BUN 13 mg/dL 8-27 Not Available [facility] ([facility]) [address] [facility], [place], [address], 08/15/2023 16:11:32 08/14/20 23 08/15/2023 COMP. METAB OLIC PANEL (14) creatinine 0.77 mg/dL 0.76-1 .27 Not Available [facility] ([facility]) [address] [facility], [place], [address], 08/15/2023 16:11:32 08/14/20 23 08/15/2023 COMP. METAB OLIC PANEL (14) eGFR 95 mL/mi n/1.7 3 >59 Not Available [facility] ([facility]) [address] [facility], [place], [address], 08/15/2023 16:11:32 08/14/20 23 08/15/2023 COMP. METAB OLIC PANEL (14) BUN/creatini ne ratio 17 10-24 Not Available [facility] ([facility]) [address], [place], [address], 08/15/2023 16:11:32 08/14/20 23 08/15/2023 COMP. METAB OLIC PANEL (14) sodium 143 mmol/ L 134-14 4 Not Available [facility] ([facility]) [address], [place], [address], 08/15/2023 16:11:32 08/14/20 23 08/15/2023 COMP. METAB OLIC PANEL (14) potassium 3.6 mmol/ L 3.5-5. 2 Not Available [facility] ([facility]) [address], [place], [address], 08/15/2023 16:11:32 08/14/20 23 08/15/2023 COMP. METAB OLIC PANEL (14) chloride 102 mmol/ L 96-106 Not Available [facility] ([facility]) [address], [place], [address], 08/15/2023 16:11:32 08/14/20 23 08/15/2023 COMP. METAB OLIC PANEL (14) carbon dioxide, total 25 mmol/ L 20-29 Not Available [facility] ([facility]) [address] [facility], [place], [address], 08/15/2023 16:11:32 08/14/20 23 08/15/2023 COMP. METAB OLIC PANEL (14) calcium 9.4 mg/dL 8.6-10 .2 Not Available [facility] ([facility]) [address] [facility], [place], [address], 08/15/2023 16:11:32 08/14/20 23 08/15/2023 COMP. METAB OLIC PANEL (14) protein, total 6.9 g/dL 6.0-8. 5 Not Available [facility] ([facility]) [address] [facility], [place], [address], 08/15/2023 16:11:32 08/14/20 23 08/15/2023 COMP. METAB OLIC PANEL (14) albumin 4.2 g/dL 3.8-4. 8 Not Available [facility] ([facility]) [address], [place], [address], 08/15/2023 16:11:32 08/14/20 23 08/15/2023 COMP. METAB OLIC PANEL (14) globulin, total 2.7 g/dL 1.5-4. 5 Not Available [facility] ([facility]) [address], [place], [address], 08/15/2023 16:11:32 08/14/20 23 08/15/2023 COMP. METAB OLIC PANEL (14) A/G ratio 1.6 1.2-2. 2 Not Available [facility] ([facility]) [address], [place], [address], 08/15/2023 16:11:32 08/14/20 23 08/15/2023 COMP. METAB OLIC PANEL (14) bilirubin, total 0.5 mg/dL 0.0-1. 2 Not Available [facility] ([facility]) [address], [place], [address], 08/15/2023 16:11:32 08/14/20 23 08/15/2023 COMP. METAB OLIC PANEL (14) alkaline phosphatase 92 IU/L 44-121 Not Available [facility] ([facility]) [address], [place], [address], 08/15/2023 16:11:32 08/14/20 23 08/15/2023 COMP. METAB OLIC PANEL (14) AST (SGOT) 13 IU/L 0-40 Not Available [facility] ([facility]) [address] [facility], [place], [address], 08/15/2023 16:11:32 12/13/20 23 08/15/2023 COMP. METAB OLIC PANEL (14) ALT (SGPT) 13 IU/L 0-44 Not Available [facility] ([facility]) [address] [facility], [place], [address], 08/15/2023 16:11:32 08/14/20 23 08/15/2023 LIPID PANEL cholesterol, total 115 mg/dL 100-19 9 Not Available [facility] ([facility]) [address] [facility], [place], [address], 08/15/2023 16:11:36 08/14/20 23 08/15/2023 LIPID PANEL triglyceride s 101 mg/dL 0-149 Not Available [facility] ([facility]) [address] [facility], [place], [address], 08/15/2023 16:11:36 08/14/20 23 08/15/2023 LIPID PANEL HDL cholesterol 27 mg/dL >39 below low normal Not Available [facility] ([facility]) [address] [facility], [place], [address], 08/15/2023 16:11:36 08/14/20 23 08/15/2023 LIPID PANEL VLDL cholesterol [place] 19 mg/dL 5-40 Not Available [facility] ([facility]) [address] [facility], [place], [address], 08/15/2023 16:11:36 08/14/20 23 08/15/2023 LIPID PANEL LDL chol calc ([facility]) 69 mg/dL 0-99 Not Available [facility] ([facility]) [address] [facility], [place], [address], 08/15/2023 16:11:36 08/14/20 23 08/15/2023 LIPID PANEL comment: REFINERY OPERATOR ALKYLATION Not Available [facility] ([facility]) [address] [facility], [place], [address], 08/15/2023 16:11:36 08/14/20 23 08/15/2023 ALBUM IN/CR EAT RATIO , RANDO M UR creatinine, urine 64.3 mg/dL not estab. Not Available [facility] ([facility]) [address] [facility], [place], [address], 08/15/2023 16:11:38 08/14/20 23 08/15/2023 ALBUM IN/CR EAT RATIO , RANDO M UR albumin, urine 16.5 ug/mL not estab. Not Available [facility] ([facility]) [address] [facility], [place], [address], 08/15/2023 16:11:38 08/14/20 23 08/15/2023 ALBUM IN/CR EAT RATIO , RANDO M UR alb/creat ratio 26 mg/g_ creat 0-29 Karin l: 0 - 29 Moder ately incre ased: 30 - 300 Sever burton incre ased: >300 Not Available [facility] ([facility]) [address] [facility], [place], [address], 08/15/2023 16:11:38 08/14/20 23 08/15/2023 VITAM IN B12 AND FOLAT E vitamin B12 677 pg/mL 232-12 45 Not Available [facility] ([facility]) [address] [facility], [place], [address], 08/15/2023 16:11:39 08/14/20 23 08/15/2023 VITAM IN B12 AND FOLAT E folate (folic acid), serum >20.0 NG/mL >3.0 A serum folat e santosh ntrat ion of less than 3.1 ng/mL is consi dered to repre sent clini [place] defic iency . Not Available [facility] ([facility]) [address] [facility], [place], [address], 08/15/2023 16:11:39 08/14/20 23 08/15/2023 HCV ANTIB DAIN RFX TO QUANT PCR HCV Ab NON REACTI VE non reacti ve Not Available [facility] ([facility]) [address] [facility], [place], [address], 08/15/2023 16:11:40 08/14/2008/15/2023 HCV ANTIB DAIN RFX TO QUANT PCR interpretati on: COMMEN T Not infec lino with HCV unles s early or acute infec tion is suspe cted (whic h may be delay ed in an immun ocomp romis ed indiv idual ), or other evide nce exist s to indic ate HCV infec tion. Not Available [facility] ([facility]) [address] [facility], [place], [address], 08/15/2023 16:11:40 08/14/20 23 08/15/2023 HEMOG LOBIN A1C hemoglobin A1C 9.0 % 4.8-5. 6 above high normal Predi abete s: 5.7 - 6.4 Diabe andrea: >6.4 Glyce sharmila contr ol for adult s with diabe andrea: <7.0 Not Available [facility] ([facility]) [address] [facility], [place], [address], 08/15/2023 16:11:43 08/14/2008/15/2023 PROST ATE-S PECIF IC AG prostate specific [...] kits canno t be used inter cote eameghany . Resul ts canno t be inter prete d as absol jessenia evide nce of the prese nce or absen ce of malig nant disea se. Not Available [facility] ([facility]) [address], [place], [address], 08/15/2023 16:11:44 08/13/20 23 arter ial study , non-i nvasi ve physi ologi c, extre mity No observ ation record ed. [email or web address] Not Available 2022 10:38:26 09/05/19 24 09/03/2023 elect nicolejoleen diogr am No observ ation record ed. [email or web address] [facility] [address] [address], [place], [address], 09/05/2023 09:10:08 Result Notes None recorded. Problems Name Problem SNOMED Code Status Onset Date Resolution Date Notes Provider Name and Address Organization Details Recorded Time Peripheral vascular disease 726763419 Active 2022 Donn [place] null[place] [facility] 3 10:41:55 Gastroesop hageal reflux disease 538705355 Active 2022 [facility] [place] [facility] 3 10:42:34 Morbid obesity 912655541 Active 2022 Donn Cohen null, [place] [facility] 3 10:42:55 Body mass index 30+ - obesity 719543580 Active 2022 Donn [place] [facility] 3 10:42:57 Constipati on 33506297 Active 2022 Donn [place] [facility] 3 10:43:04 Psoriatic arthritis 711703910 Active 2022 Donn Cohen [place] [facility] 3 10:45:10 Pain in right thumb 3528546458626 102 Active 2022 Donn [place] [facility] 3 10:45:17 Secondary immune deficiency disorder 93191620 Active 2022 Maryann Thao null, [place] - [facility] 3 11:03:29 Qualitativ e platelet disorder 881661864 Active 2022 Maryann Master null[place] - [facility] 3 11:03:31 Type 2 diabetes mellitus 05705869 Active 2022 Maryann [place] [facility] 3 11:03:37 Cardiac pacemaker in situ 401427998 Active 2022 Maryann [place] null[place] - [facility] 3 11:03:42 Hypertensi ve disorder 74303851 Active 2022 Maryann Master null[place] - [facility] 3 11:03:45 Hyperlipid emia due to type 2 diabetes mellitus 8905537249129 02 Active 2022 Maryann Koppel null[place] - [facility] 3 11:03:47 Hypothyroi dism 43354279 Active 2022 Maryann [place] null[place] - [facility] 3 11:03:49 Erectile dysfunctio n 123273280 Active 2022 Maryann Koppel null[place] - [facility] 3 11:03:55 Vitamin D deficiency 11892328 Active 2022 Harshil Jiang, BEHZAD [address] [place], [address] , [place] - [facility] 3 15:30:13 Atheroscle rosis of coronary artery without angina pectoris 3623814120254 03 Active 2023 JOSE REYNOLDS [address] [place], [address] , [place] - [facility] 4 15:18:04 Syncope and collapse 177497069 Active 2023 JOSE REYNOLDS [address] [place], [address] , [place] - [facility] 16:26:43 Problem Notes None recorded. Procedures Surgical History Date Name Laterality Status Provider Name and Address Organization Details Recorded Time 023 Phlebotomy Blood Draw completed Sangita Mcgill rd [place] - [facility] 08/14/2023 11:25:33 023 Preventative Visit Discussed with Patient completed Maryann [place] - [facility] 08/02/2023 11:39:55 023 Rotator cuff repair [place] Donn Cohen [place] [facility] 08/13/2023 10:46:32 023 Colon Surgery completed Maryann Master [place] - [facility] 08/13/2023 10:25:37 023 Colonoscopy completed Maryann [place] - [facility] 08/13/2023 10:25:37 021 Hernia Repair completed Maryann Master [place] - [facility] 08/13/2023 10:25:37 016 Hemorrhoidectomy [place] [facility] [facility] 08/13/2023 10:25:37 010 Stent Placement completed Maryann Master [place] - [facility] 08/13/2023 10:25:37 010 Cardiac Catheterization [place] [facility] 08/13/2023 10:25:37 010 Coronary Artery Stent completed [place] Master [place] [facility] 08/13/2023 10:25:37 000 Spine Surgery completed Maryann [place] [facility] 08/13/2023 10:25:37 000 Head or Neck Surgery completed [facility] Master [place] [facility] 08/13/2023 10:25:37 000 Eye Surgery completed Maryann [place] - [facility] 08/13/2023 10:25:37 999 Tonsillectomy[facility] 10:25:37 983 Pacemaker completed Mayrann Gongppel [facility] [facility] 10:25:37 Imaging Results None recorded. [...] day by oral route as needed. active 1/2/23 Not taking Not Available Not Available Not [...] Not Available Not Available Comfort EZ Pen Swengel 32 gauge x 1/4 2020 active Not [...] in Arterial blood by Pulse oximetry Systolic And Diastolic Provider Name and Address Organization Details Last Updated DateTime 4 170.18 cm 30.4 kg/m2 73903.9 2 g 81 /min 16 /min 97 % 97 % 135/81 mm[Hg] Wendi Gramajoer [place] - [facility] 4 15:13:39 Date Recorded Body weight Body mass index (BMI) Body height Body temperature Heart rate Oxygen saturation Oxygen saturation in Arterial blood by Pulse oximetry Systolic And Diastolic Provider Name and Address Organization Details Last Updated DateTime 3 25110.3 3 g 30.2 kg/m2 170.18 cm 97.2 [degF] 71 /min 98 % 98 % 139/72 mm[Hg] Maryann Thao [facility] 3 10:09:33 Date Recorded Body height Body mass index (BMI) Body weight Body temperature Oxygen saturation Oxygen saturation in Arterial blood by Pulse oximetry Heart rate Systolic And Diastolic Provider Name and Address Organization Details Last Updated DateTime 3 170.18 cm 30.4 kg/m2 94067.6 4 g 98 [degF] 98 % 98 % 78 /min 128/74 mm[Hg] Becka Payne [facility] 3 14:32:59 Social History Question Answer Notes LastModified by Organization Details LastModified Time Tobacco Smoking Status Former Smoker Maryann Thao [facility] 08/13/2023 10:25:31 Do You Have An Advance Directive? Yes Information not available 08/13/2023 What Is Your Level Of Caffeine Consumption? Occasional Coke Occasional Information not available 08/13/2023 What Type Of Diet Are You Following? DIABETIC Information not available 08/13/2023 What Is The Highest Grade Or Level Of School You Have Completed Or The Highest Degree You Have Received? [id number] Information not available 08/13/2023 How Many Days Of Moderate To Strenuous Exercise, Like A Brisk Walk, Did You Do In The Last 7 Days? 2 Information not available 08/13/2023 When Did You Quit Smoking? 16+yearssince lastcigarette [id number] Information not available 09/03/2023 Have You Been Hospitalized? Yes Information not available 08/13/2023 Date Of Hospitalization 07/03/2023 Information not available 08/13/2023 Reason For Hospitalization Right Rotator Cuff Information not available 08/13/2023 Hospital Complications None Information not available 08/13/2023 Do You Have A Medical Power Of College Hire? Yes Information not available 08/13/2023 How Many [...] available 2022 10:25:23 Medical History Condition Response Spinal Stenosis Y Neck Pain Y Psoriasis Y Neuropathic Pain Y Immunizations Vaccine Type Date Status Note Provider Nam e and Address Organization Details Recorded Time Influenza, high-dose, quadrivalent, PF 3 completed Harshil Jiang, BEHZAD [address] [place], [address], [facility] 08/19/2023 15:29:24 Pneumococcal conjugate PCV20, polysaccharide QEE098 conjugate, adjuvant, PF 4 completed Vish Fields DO [address] [place], [address], [place] [facility] 09/22/2023 15:16:11 Past Encounters Encounter ID Performer Location Encounter Start Date Encounter Closed Date Diagnosis/Indication Diagnosis SNOMED-CT Code Diagnosis ICD10 Code Diagnosis Note [id number] Vish Fields DO [facility] [address] [place] [address] 08/13/2023 09:38:51 08/13/2023 14:11:03 Adult health examination 217582540 Z00.00 Routine Physical Examinatio n: => done [...] [birth year]): evaluated Medication review done 025558687 Z76.89 Advised to let us know if [...] life for patients. Risk assessment done 712 549881 Z76.89 Environmen angel and social supports that [...] money. Advance di rective discussed with patient 887644751 Z71.89 Patient has advanced directives , will bring a copy on next appt.Advan ce directives are legal documents that allow [...] on file please discuss this with your [facility]. Hearing examination 7910 57930 Z01.10 The patient had a screening hearing exam today and the results were discussed. The patient will f/u with the Audiologis t as needed. Screening for malignant neoplasm of prostate 646120858 Z12.5 Guidelines and Recommenda tions discussed with patient. Pt verbalized understand ing. Will order PSA if clinically indicated or age appropriat e or if patient requests. Once levels received, Will address accordingl y and Will continue to monitor. Also see HPI. Non-thromb ocytopenic purpura 876694600 D69.2 Reassured the patient that this is [...] continue to monitor. Secondary immune deficiency disorder 12566017 D84.81 Patient with diabetes(a rosalee normal glucose floating in blood vessels), which increases the risk of infection. No fever or chills today.No evidence of any acute infection. Recommende d vaccines because of immunosupp ression have been offered and are up to date.Patie nt currently stable, will continue to follow. Qualitativ e platelet disorder 068900159 D69.1 The enzyme MADSEN-1 in the platelets [...] ASA therapy at this time. Postoperative care 94198 9007 Z48.89 Pt completed R rotator cuff repair in [facility] on July 03 2023. Needing PT twice a week for 4 weeks. Hypertensive disorder 38 159952 I10 Blood pressure: 139/72 mmHgPt advised to [...] .Will continue to Monitor. Peripheral vascular disease 005871729 I73.9 Quantaflo abnormal on 08/13/2023 Peripheral vascular [...] emia due to type 2 diabetes mellitus 8516492650 19844 E78.5 Pt advised to cut down on saturated fats. Explained that It causes atheroscle rosis and puts patient at risk of Heart attack, PVD, stroke and memory problems.S ee labs for LDL and HDL trend.- Pt is on Atorvastat in 40 mg tablet po daily.Will continue to follow by checking lipids regularly. Type 2 david betes mellitus 65944302 E11.21 DM-II 1) Routine labs ordered. 2) [...] voiced understand ing. Gastroesop hageal reflux disease 388378509 K21.9 Pt is on Omeprazole 40 mg [...] etc.Will continue to Monitor. Erectile dysfunction 860 070482 F52.21 Pt is on Tadalafil 10 mg tablet PRN. Will check current TRT levels. Will continue to follow. Hypothyroidism 10818674 E03.9 Will check TSHPt is on Levothyrox ine 100 mcg tablet po daily.Melonie ent is asymptomat ic without hair loss, heat/cold intoleranc es, significan t weight changes, f/u on thyroid function tests in 6 months. Body mass index 30+ - obesity 773916911 Z68.30 Patient counseled on saturated fat, avoiding [...] aquatic/po ol exercises/ walk and move arms bread molder/la te evening 15 minutes twice a day up to 30 minutes twice a day. Emphasized that water resistance really helps.-- Patient encouraged to lose weight.-- Patient educated on the impact of BMI towards health.-- Patient to shop healthy/co ok in olive oil/eat colored leafy vegetables -- Patient to practice portion control/no t to exceed 1200 kcal-- Will continue to follow. Morbid obesity 118411096 E66.01 see above. Constipation 62316635 K5 9.00 Patient advised to take prune juicePatie nt to have increased fiber in his dietPatien t to increase hydrationw ill continue to Monitor. Psoriatic arthritis 3388 32438 L40.50 Psoriatic arthritis is a condition that [...] treatment. Treatment for psoriatic arthritis is usually fdc. That's because even after symptoms get better, they sometimes return later on. Pain in right thumb 1076 725888 305386 M79.644 See HPI/PEwill refer to hand surgeon to further evaluateWi ll continue to follow Hepatitis C screening 41 3142161 Z11.59 CDC Recommenda tions for Hepatitis C Screening Among Adults in the [place]. [place] hepatitis C screening: Hepatitis C screening at least once in a lifetime for all adults aged 18 years and older, hepatitis C testing for baby boomer's (born 1945 to 1965).Paulo alatorre and Recommenda tions discussed with patient.Pt verbalized understand ing.Will screen Patient for Hepatitis C. Cardiac pa cemaker in situ 329679147 Z95.0 No function pacemaker. Will continue to follow. [id number] Vish [address] [address] 08/14/2023 09:15:54 08/18/2023 11:43:12 [id number] Vish [address] [address] 08/19/2023 14:14:12 08/19/2023 15:14:50 Hyperlipidemia due to type 2 diabetes mellitus 3558259317 29335 E78.5 LDL: 69HDL: 27Choleste rol: 115Continu e to take the statin at current dose.Will continue to follow. Hypothyroidism 81965111 E03.9 TSH: 2.97Contin ue current dose of Levothyrox ine.Will continue to follow. Type 2 david betes mellitus 45791525 E11.21 A1C: 9.0Glucose : 154All diabetic medication s reviewed-- Continue current rx and add Metformin from 500 mg po qd to 500 mg po BID.Will refer to Endocrinol ogy.Explai surya the risks of uncontroll ed Diabetes and risks of NON compliance .Advised to eat more fruits and vegetables , cut Down on fatty fried oily foods, Cut down on Starchy foods. Recommend ADA low carb 1800 ca diet.Discu ssed exercise-3 0 minutes walk daily.Pt voiced understand ing. Psoriatic arthritis 9870 22582 L40.50 Will refer to rheumatolo gy. Cardiac pa cemaker in situ 667181973 Z95.0 Refer to Cardiology May discuss status of pacemaker with cardiology Secondary immune deficiency disorder 95597131 D84.81 Immunosupp ression due to DM. The patient has a weakened immune system and should call if they are having any problems or infection Gastroesop hageal reflux disease 311170090 K21.9 Continue current PPI Qualitativ e platelet disorder 578426870 D69.1 The enzyme MADSEN-1 in the platelets [...] therapy at this time. Influenza vaccination given 0568549541 9109 Z23 Influenza vaccine given Vitamin D deficiency 347 14252 E55.9 check Vit D in six months [id number] Sadi Lozada MD [facility] [address] [address] 09/03/2023 14:58:15 09/03/2023 15:46:35 Cardiac pacemaker in situ 021171796 Z95.0 He had Medtronic pacemaker placed in [...] removal at this time. Hypertensive disorder 38 864171 I10 Controlled on exam today. Hyperlipid emia due to type 2 diabetes mellitus 8235003871 43585 E78.5 Lipid panel 08/14/23: TC 115, TG 101, HDL 27, LDL 69. On Atorvastat in 40mg. Type 2 david betes mellitus 96394646 E11.21 uncontroll ed. Atheroscle rosis of coronary artery without angina pectoris 4963824325 92201 I25.10 No angina reported. On ASA/statin . Stented co ronary artery 626257174 Z95.5 Stents to OM1x2 and RCA in 2009 Syncope and collapse 309 431923 R55 Thought to be vasovagal. He had both pacemaker (now non-functi onal) and ILR (at EOL) that did not reveal any arrhythmia s. No recurrence recently. [id number] Vish Fields DO [facility] [address] [place] [address] 09/19/2023 08:55:24 09/19/2023 09:43:58 Administration of pneumococcal vaccine 90088574 Z23 Health Concerns Section Related Observation LastModified by Organization Detai ls LastModified Time None Recorded Concern Status LastModified by Organization Details LastModified Time None Recorded Advance Directives Directive Y: Payers Insurance Date Sequence Insurance Name Policy Number Policy Frazier Covered Member ID Frazier Member ID Guarantor Name 09/26/2023 1 [facility] - CAPITATION PLAN - NO DRUG PLAN - REGIONAL PPO (MEDICARE REPLACEMENT/ ADVANTAGE - PPO) [id number] Ced Simone Mccracken [id number] Ced Malik Mccracken 10/27/2023 2 FOR LIFE ( - MEDICARE SUPPLEMENT) Ced Mccracken [id number] Ced Mccracken Notes Date Note Type Note [...] family history and social history reviewed. Vish Fields DO [address] [place], [address], [facility] 08/13/2023 11:49:24 08/19/2023 text/html Mr. Mccracken, a [...] Egg allergy: Immunosupression: Febrile seizures: Harshil Jiang, TEST MAN [address] [place], [address], [facility] 08/19/2023 15:30:31 09/03/2023 text/html Mr. Mccracken is [...] OM1x2 and RCA in 2009 JOSE REYNOLDS [facility] [place], [address], [facility] 09/03/2023 16:29:11 09/19/2023 text/html InjectionReporte d bypatient.Patient presents today for injection:Prevnar 20 Vish Fields DO [address] [place], [address], [facility] 09/22/2023 15:16:14
--- OUTSIDE RECORDS SUMMARY | 2025-03-23 08:26 | XMS_ITS | Encounter Summary ---
Author Organization [facility] Health Address [address] [place] [address] Care Team Providers Care Scowman Name Role Phone Unknown, Provider Primary Care Provider Unavaila ble Chai Giraldo MD Primary Care Provider [phone] Syl Mcadams MD Primary Care Provider [phone] Maryann Jiménez DO Primary Care Provider [phone] Encounter Details Date Type Department Care Team (Late st Contact Info) Description 01/02/2010 [facility] DEPT Liliana Owens MD [address] [facility] [address] [place] [address] Social History Tobacco Use Types Packs/Day Years Used Date Smoking Tobacco: Never Assessed Sex and Gender Information Value Date Recorded Sex Assigned at Not on file Legal Sex Male 6:48 AM [employer] Gender Identity Not on file Sexual Orientation Not on file documented as of this encounter Plan of Treatment Not on file documented as of this encounter Visit Diagnoses Not on filedocumented in this encounter Care Teams Scowman Relationship Specialty Start Date End Date Unknown, Provider PCP - General 02/27/10 01/19/14 Chai Giraldo MD [address] [place] [phone] PCP - General 12/24/17 04/28/18 Syl Mcadams MD [address] [place] [address] PCP - General 04/29/18 09/06/22 Maryann Jiménez DO [address] [facility] [address] [place] [address] PCP - General 09/07/22 documented as of this encounter
--- OUTSIDE RECORDS SUMMARY | 2025-03-23 08:26 | XMS_ITS | Data Portability ---
Author Organization [place] [facility], Main Office Address [address] [place] [address] Assessment No assessment recorded. Plan of Treatment Reminders Order Date Submit Date Provider Last Modified By Organization Details Last Modified Time Details Appointments None recorded. Lab None recorded. Referral endocrinolo gy referral 2022 023 Mary Beth Bo MD, [address],, [facility], [place], [address], 3 12:03:44 Procedures None recorded. Surgeries None recorded. Imaging None recorded. Medication Orders atorvastati n 40 mg tablet 2022 023 [facility], [address] [place] [address], [address], 3 12:23:16 Trulicity 3 mg/0.5 mL subcutaneou s pen injector 2022 023 [facility], [address] [place] [address], [address], 3 12:23:15 Tresiba FlexTouch U-200 insulin 200 unit/mL (3 mL) subcutaneou s pen 2022 023 [facility], [address] [place] [address], [address], 3 12:23:17 metformin ER 500 mg tablet,exte nded release 24 hr 2022 023 [facility], [address] [place] [address], [address], 3 12:24:40 Jardiance 25 mg tablet 2022 023 [facility], [address] [place] [address], [address], 3 12:24:41 FreeStyle Lite Strips 2022 023 [facility], [address] [place] [address], [address], 3 12:24:41 glimepiride 4 mg tablet 2022 023 [facility], [address] [place] [address], [address], 3 12:24:40 Synthroid 100 mcg tablet 2022 023 [facility], [address] [place] [address], [address], 3 12:23:17 Patient TargetsNo targets recorded. Patient [...] diabe andrea for child jennifer. Not Available [address], [address], 04/07/2022 13:33:14 04/06/20 22 04/07/2022 TSH TSH 2.20 mIU/L 0.40-4 .50 normal Not Available [address] [place], [address], 04/07/2022 13:33:14 04/06/20 22 04/07/2022 T4, FREE T4, free 1.2 NG/dL 0.8-1. 8 normal Not Available [address], [address], 04/07/2022 13:33:13 04/06/20 22 04/07/2022 ALBUM IN, RANDO M URINE W/CRE ATINI NE creatinine, random urine 108 mg/dL 20-320 normal Not Available [address], [address], 04/07/2022 13:33:13 04/06/20 22 04/07/2022 ALBUM IN, RANDO M URINE W/CRE ATINI NE albumin, urine 1.3 mg/dL see note: normal Refer ence Range : Refer ence Range Not estab lishe d Not Available [address], [address], 04/07/2022 13:33:13 04/06/20 22 04/07/2022 ALBUM IN, [...] ostic categ ory. Not Available [facility] [address] [address] [place], [address], 04/07/2022 13:33:13 04/06/20 22 04/07/2022 COMPR EHENS JADA METAB OLIC PANEL eGFR 92 mL/mi n/1.7 3m2 > or = 60 normal The eGFR is based on the CKD-E PI 2020 equat ion. To calcu late the new eGFR from a previ ous Creat inine or Cysta tin C resul t, go to https ://francisco becker.yobany price.osman roth/westley hartmann s/ kdoqi /gfr% 5Fcal culat or Not Available [facility] [address] [address] [place], [address], 04/07/2022 13:33:12 04/06/20 22 04/07/2022 COMPR EHENS JADA METAB OLIC PANEL glucose 105 mg/dL 65-99 high Fasti ng refer ence inter mitchel For someo ne witho ut known diabe andrea, a gluco se value betwe en 100 and 125 mg/dL is consi stent with predi abete s and shoul d be confi rmed with a follo w-up test. Not Available [facility] [address] [place], [address], 04/07/2022 13:33:12 04/06/20 22 04/07/2022 COMPR EHENS JADA METAB OLIC PANEL urea nitrogen (BUN) 16 mg/dL 7-25 normal Not Available [facility] [address] [address] [place], [address], 04/07/2022 13:33:12 04/06/20 22 04/07/2022 COMPR EHENS JADA METAB OLIC PANEL creatinine 0.88 mg/dL 0.70-1 .28 normal Not Available [address], [address], 04/07/2022 13:33:12 04/06/20 22 04/07/2022 COMPR EHENS JADA METAB OLIC PANEL BUN/creatini ne ratio not applic able (calc ) 6-22 Not Available [address], [address], 04/07/2022 13:33:12 04/06/20 22 04/07/2022 COMPR EHENS JADA METAB OLIC PANEL sodium 141 mmol/ L 135-14 6 normal Not Available [address], [address], 04/07/2022 13:33:12 04/06/20 22 04/07/2022 COMPR EHENS JADA METAB OLIC PANEL potassium 3.3 mmol/ L 3.5-5. 3 low Not Available [address], [address], 04/07/2022 13:33:12 04/06/20 22 04/07/2022 COMPR EHENS JADA METAB OLIC PANEL chloride 100 mmol/ L 98-110 normal Not Available [address], [address], 04/07/2022 13:33:12 04/06/20 22 04/07/2022 COMPR EHENS JADA METAB OLIC PANEL carbon dioxide 31 mmol/ L 20-32 normal Not Available [address], [address], 04/07/2022 13:33:12 04/06/20 22 04/07/2022 COMPR EHENS JADA METAB OLIC PANEL calcium 9.3 mg/dL 8.6-10 .3 normal Not Available [address] [place], [address], 04/07/2022 13:33:12 04/06/20 22 04/07/2022 COMPR EHENS JADA METAB OLIC PANEL protein, total 6.8 g/dL 6.1-8. 1 normal Not Available [address], [address], 04/07/2022 13:33:12 04/06/20 22 04/07/2022 COMPR EHENS JADA METAB OLIC PANEL albumin 4.1 g/dL 3.6-5. 1 normal Not Available [address], [address], 04/07/2022 13:33:12 04/06/20 22 04/07/2022 COMPR EHENS JADA METAB OLIC PANEL globulin 2.7 g/dL_ (calc ) 1.9-3. 7 normal Not Available [address], [address], 04/07/2022 13:33:12 04/06/20 22 04/07/2022 COMPR EHENS JADA METAB OLIC PANEL albumin/glob ulin ratio 1.5 (calc ) 1.0-2. 5 normal Not Available [address], [address], 04/07/2022 13:33:12 04/06/20 22 04/07/2022 COMPR EHENS JADA METAB OLIC PANEL bilirubin, total 0.7 mg/dL 0.2-1. 2 normal Not Available [address], [address], 04/07/2022 13:33:12 04/06/20 22 04/07/2022 COMPR EHENS JADA METAB OLIC PANEL alkaline phosphatase 68 U/L 35-144 normal Not Available [address], [address], 04/07/2022 13:33:12 04/06/20 22 04/07/2022 COMPR EHENS JADA METAB OLIC PANEL AST 13 U/L 10-35 normal Not Available [address], [address], 04/07/2022 13:33:12 04/06/20 22 04/07/2022 COMPR EHENS JADA METAB OLIC PANEL ALT 12 U/L 9-46 normal Not Available [address], [address], 04/07/2022 13:33:12 04/06/20 22 04/07/2022 LIPID PANEL , STAND DARRYL chol/HDLC ratio 3.3 (calc ) <5.0 normal Not Available [address], [address], 04/07/2022 13:33:12 04/06/20 22 04/07/2022 LIPID PANEL , STAND DARRYL cholesterol, total 105 mg/dL <200 normal Not Available [address], [address], 04/07/2022 13:33:12 04/06/20 22 04/07/2022 LIPID PANEL , STAND DARRYL HDL cholesterol 32 mg/dL > or = 40 low Not Available [address], [address], 04/07/2022 13:33:12 04/06/20 22 04/07/2022 LIPID PANEL , STAND DARRYL triglyceride s 102 mg/dL <150 normal Not Available [address], [address], 04/07/2022 13:33:12 04/06/20 22 04/07/2022 LIPID PANEL [...] calcu lated using the Lana n-Hop kins josefinau romeo n, which is a valid ated novel methosman centeno accur acy than the Fried raji equat ion in the estim ation of LDL-C . Lana de anda SS et al. ARISTIDES. 2013; 310(1 9): 2061- 2068 (http ://ed ucati on.Qu estDi fred BorderJumps. com/f aq/FA Q164) Not Available [facility] [address] [place], [address], 04/07/2022 13:33:12 04/06/20 22 04/07/2022 LIPID PANEL , STAND DARRYL non HDL cholesterol 73 mg/dL _(columba c) <130 normal For patie nts with diabe andrea plus 1 major ASCVD risk facto r, treat ing to a non-H DL-C goal of <100 mg/dL (LDL- C of <70 mg/dL ) is consi dered a thera peuti c optio n. Not Available [facility] [address] [place], [address], 04/07/2022 13:33:12 06/28/20 22 06/29/2022 HEMOG LOBIN [...] diabe andrea for child jennifer. Not Available [address], [address], 06/29/2022 19:15:30 06/28/20 22 06/29/2022 TSH+F REE T4 TSH 3.73 mIU/L 0.40-4 .50 normal Not Available [address], [address], 06/29/2022 19:15:30 06/28/20 22 06/29/2022 TSH+F REE T4 T4, free 1.2 NG/dL 0.8-1. 8 normal Not Available [address], [address], 06/29/2022 19:15:30 06/28/20 22 06/29/2022 T3, FREE T3, free 3.0 pg/mL 2.3-4. 2 normal Not Available [address], [address], 06/29/2022 19:15:29 06/28/20 22 06/29/2022 ALBUM IN, RANDO M URINE W/CRE ATINI NE creatinine, random urine 63 mg/dL 20-320 normal Not Available [address], [address], 06/29/2022 19:15:29 06/28/20 22 06/29/2022 ALBUM IN, RANDO M URINE W/CRE ATINI NE albumin, urine 0.6 mg/dL see note: normal Refer ence Range : Refer ence Range Not estab lishe d Not Available [address], [address], 06/29/2022 19:15:29 06/28/20 22 06/29/2022 ALBUM IN, [...] a diagn ostic categ ory. Not Available [address] [place], [address], 06/29/2022 19:15:29 06/28/20 22 06/29/2022 COMPR EHENS JADA METAB OLIC PANEL glucose 117 mg/dL 65-99 high Fasti ng refer ence inter mitchel For someo ne witho ut known diabe andrea, a gluco se value betwe en 100 and 125 mg/dL is consi stent with predi abete s and shoul d be confi rmed with a follo w-up test. Not Available [address], [address], 06/29/2022 19:15:28 06/28/20 22 06/29/2022 COMPR EHENS JADA METAB OLIC PANEL urea nitrogen (BUN) 10 mg/dL 7-25 normal Not Available [facility] [address] [address] [place], [address], 06/29/2022 19:15:28 06/28/20 22 06/29/2022 COMPR EHENS JADA METAB OLIC PANEL creatinine 0.88 mg/dL 0.70-1 .28 normal Not Available [facility] [address] [place], [address], 06/29/2022 19:15:28 06/28/20 22 06/29/2022 COMPR EHENS JADA METAB OLIC PANEL eGFR 92 mL/mi n/1.7 3m2 > or = 60 normal The eGFR is based on the CKD-E PI 2020 equat ion. To calcu late the new eGFR from a previ ous Creat inine or Cysta tin C resul t, go to https ://francisco price.o ira/westley walshtashi gabrielaal s/ kdoqi /gfr% 5Fcal culat or Not Available [address] [address] [place], [address], 06/29/2022 19:15:28 06/28/20 22 06/29/2022 COMPR EHENS JADA METAB OLIC PANEL BUN/creatini ne ratio not applic able (calc ) 6-22 Not Available [address] [address] [place], [address], 06/29/2022 19:15:28 06/28/20 22 06/29/2022 COMPR EHENS JADA METAB OLIC PANEL sodium 142 mmol/ L 135-14 6 normal Not Available [address] [address] [place], [address], 06/29/2022 19:15:28 06/28/20 22 06/29/2022 COMPR EHENS JADA METAB OLIC PANEL potassium 3.6 mmol/ L 3.5-5. 3 normal Not Available [address] [address] [place], [address], 06/29/2022 19:15:28 06/28/20 22 06/29/2022 COMPR EHENS JADA METAB OLIC PANEL chloride 100 mmol/ L 98-110 normal Not Available [address] [address] [place], [address], 06/29/2022 19:15:28 06/28/20 22 06/29/2022 COMPR EHENS JADA METAB OLIC PANEL carbon dioxide 32 mmol/ L 20-32 normal Not Available [address] [address] [place], [address], 06/29/2022 19:15:28 06/28/20 22 06/29/2022 COMPR EHENS JADA METAB OLIC PANEL calcium 9.5 mg/dL 8.6-10 .3 normal Not Available [address], [address], 06/29/2022 19:15:28 06/28/20 22 06/29/2022 COMPR EHENS JADA METAB OLIC PANEL protein, total 7.1 g/dL 6.1-8. 1 normal Not Available [address], [address], 06/29/2022 19:15:28 06/28/2006/29/2022 COMPR EHENS JADA METAB OLIC PANEL albumin 4.0 g/dL 3.6-5. 1 normal Not Available [address], [address], 06/29/2022 19:15:28 06/28/20 22 06/29/2022 COMPR EHENS JADA METAB OLIC PANEL globulin 3.1 g/dL_ (calc ) 1.9-3. 7 normal Not Available [address], [address], 06/29/2022 19:15:28 06/28/20 22 06/29/2022 COMPR EHENS JADA METAB OLIC PANEL albumin/glob ulin ratio 1.3 (calc ) 1.0-2. 5 normal Not Available [address], [address], 06/29/2022 19:15:28 06/28/20 22 06/29/2022 COMPR EHENS JADA METAB OLIC PANEL bilirubin, total 0.5 mg/dL 0.2-1. 2 normal Not Available [address], [address], 06/29/2022 19:15:28 06/28/20 22 06/29/2022 COMPR EHENS JADA METAB OLIC PANEL alkaline phosphatase 90 U/L 35-144 normal Not Available [address] [address] [place], [address], 06/29/2022 19:15:28 06/28/20 22 06/29/2022 COMPR EHENS JADA METAB OLIC PANEL AST 15 U/L 10-35 normal Not Available [address] [address] [place], [address], 06/29/2022 19:15:28 06/28/20 22 06/29/2022 COMPR EHENS JADA METAB OLIC PANEL ALT 18 U/L 9-46 normal Not Available [address] [address] [place], [address], 06/29/2022 19:15:28 06/28/20 22 06/29/2022 LIPID PANEL , STAND DARRYL non HDL cholesterol 105 mg/dL _(columba c) <130 normal For patie nts with diabe andrea plus 1 major ASCVD risk facto r, treat ing to a non-H DL-C goal of <100 mg/dL (LDL- C of <70 mg/dL ) is elmer vargaso n. Not Available [address] [address] [place], [address], 06/29/2022 19:15:28 06/28/20 22 06/29/2022 LIPID PANEL , STAND DARRYL cholesterol, total 138 mg/dL <200 normal Not Available [address] [address] [place], [address], 06/29/2022 19:15:28 06/28/20 22 06/29/2022 LIPID PANEL , STAND DARRYL HDL cholesterol 33 mg/dL > or = 40 low Not Available [address] [address] [place], [address], 06/29/2022 19:15:28 06/28/20 22 06/29/2022 LIPID PANEL , STAND DARRYL triglyceride s 162 mg/dL <150 high Not Available [facility] [address] [place], [address], 06/29/2022 19:15:28 06/28/20 22 06/29/2022 LIPID PANEL [...] 9): 2061- 2068 (http ://ed ucati on.Qu Stanley PureSignCo. com/f aq/FA Q164) Not Available [facility] [address] [address] , [place], [address], 06/29/2022 19:15:28 06/28/20 22 06/29/2022 LIPID PANEL , STAND DARRYL chol/HDLC ratio 4.2 (calc ) <5.0 normal Not Available [facility] [id number] [place] [address], [address], 06/29/2022 19:15:28 09/17/19 23 09/18/2022 HEMOG LOBIN [...] diabe andrea for child jennifer. Not Available [address], [address], 09/18/2022 13:59:03 09/17/19 23 09/18/2022 T3, FREE T3, free 3.1 pg/mL 2.3-4. 2 normal Not Available [facility] [address], [address], 09/18/2022 13:59:02 09/17/19 23 09/18/2022 TSH TSH 6.04 mIU/L 0.40-4 .50 high Not Available [facility] [address], [address], 09/18/2022 13:59:02 09/17/19 23 09/18/2022 T4, FREE T4, free 1.2 NG/dL 0.8-1. 8 normal Not Available [address], [address], 09/18/2022 13:59:01 09/17/19 23 09/18/2022 CBC (INCL UDES DIFF/ PLT) hemoglobin 16.3 g/dL 13.2-1 7.1 normal Not Available [facility] [address], [address], 09/18/2022 13:59:01 09/17/19 23 09/18/2022 CBC (INCL UDES DIFF/ PLT) white blood cell count 12.2 thous and/u L 3.8-10 .8 high Not Available [facility] [address], [address], 09/18/2022 13:59:01 09/17/19 23 09/18/2022 CBC (INCL UDES DIFF/ PLT) red blood cell count 5.75 destini on/uL 4.20-5 .80 normal Not Available [address], [address], 09/18/2022 13:59:01 09/17/19 23 09/18/2022 CBC (INCL UDES DIFF/ PLT) hematocrit 48.5 % 38.5-5 0.0 normal Not Available [address], [address], 09/18/2022 13:59:01 09/17/19 23 09/18/2022 CBC (INCL UDES DIFF/ PLT) MCV 84.3 fL 80.0-1 00.0 normal Not Available [address], [address], 09/18/2022 13:59:01 09/17/19 23 09/18/2022 CBC (INCL UDES DIFF/ PLT) MCH 28.3 pg 27.0-3 3.0 normal Not Available [address], [address], 09/18/2022 13:59:01 09/17/19 23 09/18/2022 CBC (INCL UDES DIFF/ PLT) MCHC 33.6 g/dL 32.0-3 6.0 normal Not Available [address], [address], 09/18/2022 13:59:01 09/17/19 23 09/18/2022 CBC (INCL UDES DIFF/ PLT) RDW 13.0 % 11.0-1 5.0 normal Not Available [address], [address], 09/18/2022 13:59:01 09/17/19 23 09/18/2022 CBC (INCL UDES DIFF/ PLT) platelet count 285 thous and/u L 140-40 0 normal Not Available [address], [address], 09/18/2022 13:59:01 09/17/19 23 09/18/2022 CBC (INCL UDES DIFF/ PLT) MPV 9.4 fL 7.5-12 .5 normal Not Available [address], [address], 09/18/2022 13:59:01 09/17/19 23 09/18/2022 CBC (INCL UDES DIFF/ PLT) absolute neutrophils 8296 cells /uL 1500-7 800 high Not Available [facility] [address], [address], 09/18/2022 13:59:01 09/17/19 23 09/18/2022 CBC (INCL UDES DIFF/ PLT) absolute lymphocytes 2940 cells /uL 850-39 00 normal Not Available [address], [address], 09/18/2022 13:59:01 09/17/19 23 09/18/2022 CBC (INCL UDES DIFF/ PLT) absolute monocytes 817 cells /uL 200-95 0 normal Not Available [address], [address], 09/18/2022 13:59:01 09/17/19 23 09/18/2022 CBC (INCL UDES DIFF/ PLT) absolute eosinophils 73 cells /uL 15-500 normal Not Available [facility] [address], [address], 09/18/2022 13:59:01 09/17/19 23 09/18/2022 CBC (INCL UDES DIFF/ PLT) absolute basophils 73 cells /uL 0-200 normal Not Available [address], [address], 09/18/2022 13:59:01 09/17/19 23 09/18/2022 CBC (INCL UDES DIFF/ PLT) neutrophils 68 % normal Not Available [address], [address], 09/18/2022 13:59:01 09/17/19 23 09/18/2022 CBC (INCL UDES DIFF/ PLT) lymphocytes 24.1 % normal Not Available [address], [address], 09/18/2022 13:59:01 09/17/19 23 09/18/2022 CBC (INCL UDES DIFF/ PLT) monocytes 6.7 % normal Not Available [address], [address], 09/18/2022 13:59:01 09/17/19 23 09/18/2022 CBC (INCL UDES DIFF/ PLT) eosinophils 0.6 % normal Not Available [address], [address], 09/18/2022 13:59:01 09/17/19 23 09/18/2022 CBC (INCL UDES DIFF/ PLT) basophils 0.6 % normal Not Available [address], [address], 09/18/2022 13:59:01 09/17/19 23 09/18/2022 ALBUM IN, RANDO M URINE W/CRE ATINI NE creatinine, random urine 67 mg/dL 20-320 normal Not Available [address], [address], 09/18/2022 13:59:00 09/17/19 23 09/18/2022 ALBUM IN, RANDO M URINE W/CRE ATINI NE albumin, urine 1.1 mg/dL see note: normal Refer ence Range : Refer ence Range Not estab lishe d Not Available [address], [address], 09/18/2022 13:59:00 09/17/19 23 09/18/2022 ALBUM IN, [...] a diagn ostic categ ory. Not Available [address], [address], 09/18/2022 13:59:00 09/17/19 23 09/18/2022 LIPID PANEL , STAND DARRYL chol/HDLC ratio 3.5 (calc ) <5.0 normal Not Available [address], [address], 09/18/2022 13:59:00 09/17/19 23 09/18/2022 LIPID PANEL , STAND DARRYL cholesterol, total 138 mg/dL <200 normal Not Available [address], [address], 09/18/2022 13:59:00 09/17/19 23 09/18/2022 LIPID PANEL , STAND DARRYL HDL cholesterol 40 mg/dL > or = 40 normal Not Available [facility] [address], [address], 09/18/2022 13:59:00 09/17/19 23 09/18/2022 LIPID PANEL , STAND DARRYL triglyceride s 156 mg/dL <150 high Not Available [address], [address], 09/18/2022 13:59:00 09/17/19 23 09/18/2022 LIPID PANEL [...] 310(1 9): 2061- 2068 (http ://ed ucati on.Teamie. Joinnus/f aq/FA Q164) Not Available [facility] [address] [address] [address], [place], [address], 09/18/2022 13:59:00 09/17/19 23 09/18/2022 LIPID PANEL , STAND DARRYL non HDL cholesterol 98 mg/dL _(columba c) <130 normal For patie nts with diabe andrea plus 1 major ASCVD risk facto r, treat ing to a non-H DL-C goal of <100 mg/dL (LDL- C of <70 mg/dL ) is consi hoa vargaso n. Not Available [facility] [address] [address] [address] , [place], [address], 09/18/2022 13:59:00 11/17/19 23 11/19/2022 TESTO STERO NE, FREE, BIOAV AILAB LE AND TOTAL , MS albumin 4.2 g/dL 3.6-5. 1 Not Available [facility] [address] [address], [place], [address], 11/19/2022 15:09:10 11/17/19 23 11/19/2022 TESTO STERO NE, FREE, BIOAV AILAB LE AND TOTAL , MS sex hormone binding globulin 59.3 nmol/ L 22-77 Not Available [facility] [address] [address] [place], [address], 11/19/2022 15:09:10 11/17/19 23 11/19/2022 TESTO STERO NE, FREE, BIOAV AILAB LE AND TOTAL , MS testosterone , free 41.7 pg/mL 6.0-73 .0 Not Available [facility] [address] [address] [address] , [place], [address], 11/19/2022 15:09:10 11/17/19 23 11/19/2022 TESTO STERO NE, FREE, BIOAV AILAB LE AND TOTAL , MS testosterone ,bioavailabl e 80.2 NG/dL 15.0-1 50.0 Not Available [facility] [address] [address] [place], [address], 11/19/2022 15:09:10 11/17/19 23 11/19/2022 TESTO STERO NE, FREE, BIOAV AILAB LE AND TOTAL , MS testosterone , total, MS 512 NG/dL 250-11 00 For addit ional oscar mejia e refer to https ://ed ucati on.qu antonioAraca. Joinnus/f aq/FA Q165 (This link is being provi ded for infor fara nal/e ducat ional purpo ses only. ) (Note ) This test was devel oped and its sloan tical perfo rmanc e vance cteri stics have been deter mined by [facility]. It has not been clear ed or appro lovely by the FDA. This assay has been valid ated pursu ant to the CLIA regul ation s and is used for clini columba purpo ses. KATIA hairston n [address] [facility] [address] [place] [address] [phone] Gorge guadalupe MD Not Available [facility] [address] [address] [place], [address], 11/19/2022 15:09:10 02/09/20 23 02/09/2023 LIPID PANEL , STAND DARRYL cholesterol, total 98 mg/dL <200 normal Not Available [address], [address], 02/09/2023 10:24:35 02/09/20 23 02/09/2023 LIPID PANEL , STAND DARRYL HDL cholesterol 27 mg/dL > or = 40 low Not Available [address], [address], 02/09/2023 10:24:35 02/09/20 23 02/09/2023 LIPID PANEL , STAND DARRYL triglyceride s 102 mg/dL <150 normal Not Available [address], [address], 02/09/2023 10:24:35 02/09/20 23 02/09/2023 LIPID PANEL [...] 9): 2061- 2068 (http ://ed ucati on.Qu Stanley rogerGiveys. com/f aq/FA Q164) Not Available [address], [address], 02/09/2023 10:24:35 02/09/20 23 02/09/2023 LIPID PANEL , STAND DARRYL chol/HDLC ratio 3.6 (calc ) <5.0 normal Not Available [address] [address] [place], [address], 02/09/2023 10:24:35 02/09/2002/09/2023 LIPID PANEL , STAND DARRYL non HDL cholesterol 71 mg/dL _(columba c) <130 normal For patie nts with diabe andrea plus 1 major ASCVD risk facto r, treat ing to a non-H DL-C goal of <100 mg/dL (LDL- C of <70 mg/dL ) is consi dered a thera peuti c optio n. Not Available [facility] [address] [address] [place], [address], 02/09/2023 10:24:35 02/09/20 23 02/09/2023 COMPR EHENS JADA METAB OLIC PANEL glucose 109 mg/dL 65-99 high Fasti ng refer ence inter mitchel For someo ne witho ut known diabe andrea, a gluco se value betwe en 100 and 125 mg/dL is consi stent with predi abete s and shoul d be confi rmed with a follo w-up test. Not Available [facility] [address] [address] [address], [place], [address], 02/09/2023 10:24:36 02/09/2002/09/2023 COMPR EHENS JADA METAB OLIC PANEL urea nitrogen (BUN) 18 mg/dL 7-25 normal Not Available [facility] [address] [address] [place], [address], 02/09/2023 10:24:36 02/09/20 23 02/09/2023 COMPR EHENS JADA METAB OLIC PANEL creatinine 0.82 mg/dL 0.70-1 .28 normal Not Available [facility] [address] [address] [place], [address], 02/09/2023 10:24:36 02/09/20 23 02/09/2023 COMPR EHENS JADA METAB OLIC PANEL eGFR 93 mL/mi n/1.7 3m2 > or = 60 normal The eGFR is based on the CKD-E PI 2020 equat ion. To calcu late the new eGFR from a previ ous Creat inine or Cysta hakan beauchamp t, go to https ://[email or web address] [email or web address] [email or web address] s/ kdoqi /gfr% 5Fcal culat or Not Available [address] [address] [place], [address], 02/09/2023 10:24:36 02/09/20 23 02/09/2023 COMPR EHENS JADA METAB OLIC PANEL BUN/creatini ne ratio NOT APPLIC ABLE (calc ) 6-22 Not Available [address], [address], 02/09/2023 10:24:36 02/09/20 23 02/09/2023 COMPR EHENS JADA METAB OLIC PANEL sodium 142 mmol/ L 135-14 6 normal Not Available [address] [address] [place], [address], 02/09/2023 10:24:36 02/09/20 23 02/09/2023 COMPR EHENS JADA METAB OLIC PANEL potassium 3.7 mmol/ L 3.5-5. 3 normal Not Available [address] [address] [place], [address], 02/09/2023 10:24:36 02/09/20 23 02/09/2023 COMPR EHENS JADA METAB OLIC PANEL chloride 101 mmol/ L 98-110 normal Not Available [address] [address] [place], [address], 02/09/2023 10:24:36 02/09/20 23 02/09/2023 COMPR EHENS JADA METAB OLIC PANEL carbon dioxide 29 mmol/ L 20-32 normal Not Available [address] [address] [place], [address], 02/09/2023 10:24:36 02/09/20 23 02/09/2023 COMPR EHENS JADA METAB OLIC PANEL calcium 9.3 mg/dL 8.6-10 .3 normal Not Available [address], [address], 02/09/2023 10:24:36 02/09/20 23 02/09/2023 COMPR EHENS JADA METAB OLIC PANEL protein, total 6.7 g/dL 6.1-8. 1 normal Not Available [address], [address], 02/09/2023 10:24:36 02/09/20 23 02/09/2023 COMPR EHENS JADA METAB OLIC PANEL albumin 4.0 g/dL 3.6-5. 1 normal Not Available [address], [address], 02/09/2023 10:24:36 02/09/20 23 02/09/2023 COMPR EHENS JADA METAB OLIC PANEL globulin 2.7 g/dL_ (calc ) 1.9-3. 7 normal Not Available [address], [address], 02/09/2023 10:24:36 02/09/20 23 02/09/2023 COMPR EHENS JADA METAB OLIC PANEL albumin/glob ulin ratio 1.5 (calc ) 1.0-2. 5 normal Not Available [address], [address], 02/09/2023 10:24:36 02/09/20 23 02/09/2023 COMPR EHENS JADA METAB OLIC PANEL bilirubin, total 0.6 mg/dL 0.2-1. 2 normal Not Available [address], [address], 02/09/2023 10:24:36 02/09/20 23 02/09/2023 COMPR EHENS JADA METAB OLIC PANEL alkaline phosphatase 78 U/L 35-144 normal Not Available [address] [address] [place], [address], 02/09/2023 10:24:36 02/09/20 23 02/09/2023 COMPR EHENS JADA METAB OLIC PANEL AST 13 U/L 10-35 normal Not Available [address] [address] [place], [address], 02/09/2023 10:24:36 02/09/20 23 02/09/2023 COMPR EHENS JADA METAB OLIC PANEL ALT 13 U/L 9-46 normal Not Available [address] [address] [place], [address], 02/09/2023 10:24:36 02/09/20 23 02/09/2023 ALBUM IN, RANDO M URINE W/CRE ATINI NE creatinine, random urine 110 mg/dL 20-320 normal Not Available [address] [address] [place], [address], 02/09/2023 10:24:37 02/09/20 23 02/09/2023 ALBUM IN, RANDO M URINE W/CRE ATINI NE albumin, urine 1.4 mg/dL see note: normal Refer ence Range : Refer ence Range Not estab lishe d Not Available [address], [address], 02/09/2023 10:24:37 02/09/20 23 02/09/2023 ALBUM IN, [...] a diagn ostic categ ory. Not Available [address], [address], 02/09/2023 10:24:37 02/09/20 23 02/09/2023 CBC (INCL UDES DIFF/ PLT) white blood cell count 9.5 thous and/u L 3.8-10 .8 normal Not Available [address], [address], 02/09/2023 10:24:37 02/09/2002/09/2023 CBC (INCL UDES DIFF/ PLT) red blood cell count 5.50 destini on/uL 4.20-5 .80 normal Not Available [address], [address], 02/09/2023 10:24:37 02/09/20 23 02/09/2023 CBC (INCL UDES DIFF/ PLT) hemoglobin 15.5 g/dL 13.2-1 7.1 normal Not Available [address], [address], 02/09/2023 10:24:37 02/09/20 23 02/09/2023 CBC (INCL UDES DIFF/ PLT) hematocrit 45.8 % 38.5-5 0.0 normal Not Available [address], [address], 02/09/2023 10:24:37 02/09/20 23 02/09/2023 CBC (INCL UDES DIFF/ PLT) MCV 83.3 fL 80.0-1 00.0 normal Not Available [facility] [address], [address], 02/09/2023 10:24:37 02/09/20 23 02/09/2023 CBC (INCL UDES DIFF/ PLT) MCH 28.2 pg 27.0-3 3.0 normal Not Available [address], [address], 02/09/2023 10:24:37 02/09/20 23 02/09/2023 CBC (INCL UDES DIFF/ PLT) MCHC 33.8 g/dL 32.0-3 6.0 normal Not Available [address], [address], 02/09/2023 10:24:37 02/09/20 23 02/09/2023 CBC (INCL UDES DIFF/ PLT) RDW 13.1 % 11.0-1 5.0 normal Not Available [address], [address], 02/09/2023 10:24:37 02/09/20 23 02/09/2023 CBC (INCL UDES DIFF/ PLT) platelet count 232 thous and/u L 140-40 0 normal Not Available [address], [address], 02/09/2023 10:24:37 02/09/20 23 02/09/2023 CBC (INCL UDES DIFF/ PLT) MPV 8.8 fL 7.5-12 .5 normal Not Available [address], [address], 02/09/2023 10:24:37 02/09/20 23 02/09/2023 CBC (INCL UDES DIFF/ PLT) absolute neutrophils 6251 cells /uL 1500-7 800 normal Not Available [facility] [address], [address], 02/09/2023 10:24:37 02/09/20 23 02/09/2023 CBC (INCL UDES DIFF/ PLT) absolute lymphocytes 2290 cells /uL 850-39 00 normal Not Available [address], [address], 02/09/2023 10:24:37 02/09/20 23 02/09/2023 CBC (INCL UDES DIFF/ PLT) absolute monocytes 789 cells /uL 200-95 0 normal Not Available [address], [address], 02/09/2023 10:24:37 02/09/20 23 02/09/2023 CBC (INCL UDES DIFF/ PLT) absolute eosinophils 114 cells /uL 15-500 normal Not Available [address], [address], 02/09/2023 10:24:37 02/09/20 23 02/09/2023 CBC (INCL UDES DIFF/ PLT) absolute basophils 57 cells /uL 0-200 normal Not Available [address], [address], 02/09/2023 10:24:37 02/09/20 23 02/09/2023 CBC (INCL UDES DIFF/ PLT) neutrophils 65.8 % normal Not Available [address], [address], 02/09/2023 10:24:37 02/09/20 23 02/09/2023 CBC (INCL UDES DIFF/ PLT) lymphocytes 24.1 % normal Not Available [address], [address], 02/09/2023 10:24:37 02/09/20 23 02/09/2023 CBC (INCL UDES DIFF/ PLT) monocytes 8.3 % normal Not Available [address], [address], 02/09/2023 10:24:37 02/09/20 23 02/09/2023 CBC (INCL UDES DIFF/ PLT) eosinophils 1.2 % normal Not Available [address], [address], 02/09/2023 10:24:37 02/09/20 23 02/09/2023 CBC (INCL UDES DIFF/ PLT) basophils 0.6 % normal Not Available [address], [address], 02/09/2023 10:24:37 02/09/20 23 02/09/2023 T4, FREE T4, free 1.2 NG/dL 0.8-1. 8 normal Not Available [address], [address], 02/09/2023 10:24:38 02/09/2002/09/2023 TSH TSH 2.42 mIU/L 0.40-4 .50 normal Not Available [address], [address], 02/09/2023 10:24:38 02/09/2002/09/2023 VITAM IN B12/F OLATE [...] pg/mL will have sympt oms. Not Available [address], [address], 02/09/2023 10:24:39 02/09/2002/09/2023 VITAM IN B12/F OLATE , SERUM PANEL folate, serum >24.0 NG/mL normal Refer ence Range Low: <3.4 Borde rline : 3.4-5 .4 Karin l: >5.4 Not Available [facility] [address], [address], 02/09/2023 10:24:39 02/09/20 23 02/09/2023 SEX HORMO NE GINA NG GLOBU PEG sex hormone binding globulin 58 nmol/ L 22-77 normal Not Available [facility] [address] [place], [address], 02/09/2023 10:24:40 02/09/2002/09/2023 T3, FREE T3, free 3.5 pg/mL 2.3-4. 2 normal Not Available [facility] [address] [place], [address], 02/09/2023 10:24:40 02/09/2002/09/2023 HEMOG LOBIN A1C hemoglobin [...] ntly, no conse nsus exist s regar ding use of hemog lobin A1c for diagn osis of diabe andrea for child jennifer. Not Available [facility] [address] [place], [address], 02/09/2023 10:24:41 05/07/2005/10/2023 TESTO STERO NE, FREE, BIOAV AILAB LE AND TOTAL , MS albumin 4.1 g/dL 3.6-5. 1 Not Available [facility] [address] [place], [address], 05/10/2023 14:35:40 05/07/20 23 05/10/2023 TESTO STERO NE, FREE, BIOAV AILAB LE AND TOTAL , MS sex hormone binding globulin 55.7 nmol/ L 22-77 Not Available [address] [address] [place], [address], 05/10/2023 14:35:40 05/07/20 23 05/10/2023 TESTO STERO NE, FREE, BIOAV AILAB LE AND TOTAL , MS testosterone , free 44.2 pg/mL 6.0-73 .0 Not Available [address], [address], 05/10/2023 14:35:40 05/07/20 23 05/10/2023 TESTO STERO NE, FREE, BIOAV AILAB LE AND TOTAL , MS testosterone ,bioavailabl e 83.2 NG/dL 15.0-1 50.0 Not Available [address], [address], 05/10/2023 14:35:40 05/07/2005/10/2023 TESTO STERO NE, FREE, BIOAV AILAB LE AND TOTAL , MS testosterone , total, MS 510 NG/dL 250-11 00 For addit ional infor oscar marroquin e refer to https ://ed ucati on.qu stanley [employer]. Joinnus/f aq/FA Q165 (This link is being provi ded for infor matwayne nal/e ducat ional purpo ses only. ) (Note ) This test was devel oped and its sloan tical perfo rmanc e vance cteri stics have been deter mined by [employer]. It has not been clear ed or appro loevly by the FDA. This assay has been valid ated pursu ant to the CLIA regul ation s and is used for clini columba purpo ses. F earl hairston n [address] [facility] [address] [facility] [address] [phone] Nico marcial MD Not Available [facility] [address] [address] [place], [address], 05/10/2023 14:35:40 05/07/20 23 05/10/2023 LIPID PANEL , STAND DARRYL cholesterol, total 113 mg/dL <200 normal Not Available [facility] [address] [address] [place], [address], 05/10/2023 14:35:41 05/07/20 23 05/10/2023 LIPID PANEL , STAND DARRYL HDL cholesterol 29 mg/dL > or = 40 low Not Available [facility] [address] [address] [place], [address], 05/10/2023 14:35:41 05/07/20 23 05/10/2023 LIPID PANEL , STAND DARRYL triglyceride s 148 mg/dL <150 normal Not Available [facility] [address] [address] [place], [address], 05/10/2023 14:35:41 05/07/20 23 05/10/2023 LIPID PANEL [...] 2061- 2068 (http ://ed ucati on.Qu estDi kanaGiveys. com/f aq/FA Q164) Not Available [facility] [address] [address] [place], [address], 05/10/2023 14:35:41 05/07/2005/10/2023 LIPID PANEL , STAND DARRYL chol/HDLC ratio 3.9 (calc ) <5.0 normal Not Available [address], [address], 05/10/2023 14:35:41 05/07/20 23 05/10/2023 LIPID PANEL , STAND DARRYL non HDL cholesterol 84 mg/dL _(columba c) <130 normal For patie nts with diabe andrea plus 1 major ASCVD risk facto r, treat ing to a non-H DL-C goal of <100 mg/dL (LDL- C of <70 mg/dL ) is consi hoa jacobo optio n. Not Available [address], [address], 05/10/2023 14:35:41 05/07/2005/10/2023 COMPR EHENS JADA METAB OLIC PANEL glucose 162 mg/dL 65-99 high Fasti ng refer ence inter mitchel For someo ne witho ut known diabe andrea, a gluco se value >125 mg/dL indic ates that they may have diabe andrea and this shoul d be confi rmed with a follo w-up test. Not Available [address] [place], [address], 05/10/2023 14:35:42 05/07/2005/10/2023 COMPR EHENS JADA METAB OLIC PANEL urea nitrogen (BUN) 14 mg/dL 7-25 normal Not Available [facility] [address] [address] [place], [address], 05/10/2023 14:35:42 05/07/2005/10/2023 COMPR EHENS JADA METAB OLIC PANEL creatinine 0.95 mg/dL 0.70-1 .28 normal Not Available [facility] [address] [address] [place], [address], 05/10/2023 14:35:42 05/07/20 23 05/10/2023 COMPR EHENS JADA METAB OLIC PANEL eGFR 85 mL/mi n/1.7 3m2 > or = 60 normal Not Available [address], [address], 05/10/2023 14:35:42 05/07/20 23 05/10/2023 COMPR EHENS JADA METAB OLIC PANEL BUN/creatini ne ratio SEE NOTE: (calc ) 6-22 Not Repor lino: BUN and Creat inine are withi n refer ence range . Not Available [address], [address], 05/10/2023 14:35:42 05/07/20 23 05/10/2023 COMPR EHENS JADA METAB OLIC PANEL sodium 140 mmol/ L 135-14 6 normal Not Available [address], [address], 05/10/2023 14:35:42 05/07/20 23 05/10/2023 COMPR EHENS JADA METAB OLIC PANEL potassium 3.8 mmol/ L 3.5-5. 3 normal Not Available [address], [address], 05/10/2023 14:35:42 05/07/20 23 05/10/2023 COMPR EHENS JADA METAB OLIC PANEL chloride 101 mmol/ L 98-110 normal Not Available [address], [address], 05/10/2023 14:35:42 05/07/20 23 05/10/2023 COMPR EHENS JADA METAB OLIC PANEL carbon dioxide 31 mmol/ L 20-32 normal Not Available [address], [address], 05/10/2023 14:35:42 05/07/20 23 05/10/2023 COMPR EHENS JADA METAB OLIC PANEL calcium 9.5 mg/dL 8.6-10 .3 normal Not Available [address], [address], 05/10/2023 14:35:42 05/07/20 23 05/10/2023 COMPR EHENS JADA METAB OLIC PANEL protein, total 6.8 g/dL 6.1-8. 1 normal Not Available [address], [address], 05/10/2023 14:35:42 05/07/20 23 05/10/2023 COMPR EHENS JADA METAB OLIC PANEL albumin 4.2 g/dL 3.6-5. 1 normal Not Available [address], [address], 05/10/2023 14:35:42 05/07/20 23 05/10/2023 COMPR EHENS JADA METAB OLIC PANEL globulin 2.6 g/dL_ (calc ) 1.9-3. 7 normal Not Available [address], [address], 05/10/2023 14:35:42 05/07/20 23 05/10/2023 COMPR EHENS JADA METAB OLIC PANEL albumin/glob ulin ratio 1.6 (calc ) 1.0-2. 5 normal Not Available [address], [address], 05/10/2023 14:35:42 05/07/20 23 05/10/2023 COMPR EHENS JADA METAB OLIC PANEL bilirubin, total 0.5 mg/dL 0.2-1. 2 normal Not Available [address], [address], 05/10/2023 14:35:42 05/07/20 23 05/10/2023 COMPR EHENS JADA METAB OLIC PANEL alkaline phosphatase 88 U/L 35-144 normal Not Available [facility] [employer] [address] [place], [address], 05/10/2023 14:35:42 05/07/20 23 05/10/2023 COMPR EHENS JADA METAB OLIC PANEL AST 14 U/L 10-35 normal Not Available [address], [address], 05/10/2023 14:35:42 05/07/20 23 05/10/2023 COMPR EHENS JADA METAB OLIC PANEL ALT 18 U/L 9-46 normal Not Available [address], [address], 05/10/2023 14:35:42 05/07/20 23 05/10/2023 ALBUM IN, RANDO M URINE W/CRE ATINI NE creatinine, random urine 66 mg/dL 20-320 normal Not Available [address], [address], 05/10/2023 14:35:42 05/07/20 23 05/10/2023 ALBUM IN, RANDO M URINE W/CRE ATINI NE albumin, urine 0.8 mg/dL see note: normal Refer ence Range : Refer ence Range Not estab lishe d Not Available [address], [address], 05/10/2023 14:35:42 05/07/20 23 05/10/2023 ALBUM IN, [...] a diagn ostic categ ory. Not Available [address], [address], 05/10/2023 14:35:42 05/07/20 23 05/10/2023 CBC (INCL UDES DIFF/ PLT) white blood cell count 8.2 thous and/u L 3.8-10 .8 normal Not Available [address], [address], 05/10/2023 14:35:43 05/07/2005/10/2023 CBC (INCL UDES DIFF/ PLT) red blood cell count 5.44 destini on/uL 4.20-5 .80 normal Not Available [facility] [address], [address], 05/10/2023 14:35:43 05/07/20 23 05/10/2023 CBC (INCL UDES DIFF/ PLT) hemoglobin 16.3 g/dL 13.2-1 7.1 normal Not Available [address], [address], 05/10/2023 14:35:43 05/07/2005/10/2023 CBC (INCL UDES DIFF/ PLT) hematocrit 46.0 % 38.5-5 0.0 normal Not Available [address], [address], 05/10/2023 14:35:43 05/07/20 23 05/10/2023 CBC (INCL UDES DIFF/ PLT) MCV 84.6 fL 80.0-1 00.0 normal Not Available [facility] [address], [address], 05/10/2023 14:35:43 05/07/20 23 05/10/2023 CBC (INCL UDES DIFF/ PLT) MCH 30.0 pg 27.0-3 3.0 normal Not Available [address], [address], 05/10/2023 14:35:43 05/07/2005/10/2023 CBC (INCL UDES DIFF/ PLT) MCHC 35.4 g/dL 32.0-3 6.0 normal Not Available [address], [address], 05/10/2023 14:35:43 05/07/2005/10/2023 CBC (INCL UDES DIFF/ PLT) RDW 13.2 % 11.0-1 5.0 normal Not Available [address], [address], 05/10/2023 14:35:43 05/07/20 23 05/10/2023 CBC (INCL UDES DIFF/ PLT) platelet count 257 thous and/u L 140-40 0 normal Not Available [address], [address], 05/10/2023 14:35:43 05/07/2005/10/2023 CBC (INCL UDES DIFF/ PLT) MPV 8.9 fL 7.5-12 .5 normal Not Available [address], [address], 05/10/2023 14:35:43 05/07/20 23 05/10/2023 CBC (INCL UDES DIFF/ PLT) absolute neutrophils 4879 cells /uL 1500-7 800 normal Not Available [address], [address], 05/10/2023 14:35:43 05/07/20 23 05/10/2023 CBC (INCL UDES DIFF/ PLT) absolute lymphocytes 2378 cells /uL 850-39 00 normal Not Available [address], [address], 05/10/2023 14:35:43 05/07/20 23 05/10/2023 CBC (INCL UDES DIFF/ PLT) absolute monocytes 763 cells /uL 200-95 0 normal Not Available [address], [address], 05/10/2023 14:35:43 05/07/20 23 05/10/2023 CBC (INCL UDES DIFF/ PLT) absolute eosinophils 123 cells /uL 15-500 normal Not Available [address], [address], 05/10/2023 14:35:43 05/07/20 23 05/10/2023 CBC (INCL UDES DIFF/ PLT) absolute basophils 57 cells /uL 0-200 normal Not Available [address], [address], 05/10/2023 14:35:43 05/07/20 23 05/10/2023 CBC (INCL UDES DIFF/ PLT) neutrophils 59.5 % normal Not Available [facility] [address], [address], 05/10/2023 14:35:43 05/07/20 23 05/10/2023 CBC (INCL UDES DIFF/ PLT) lymphocytes 29.0 % normal Not Available [address], [address], 05/10/2023 14:35:43 05/07/20 23 05/10/2023 CBC (INCL UDES DIFF/ PLT) monocytes 9.3 % normal Not Available [facility] [address], [address], 05/10/2023 14:35:43 05/07/20 23 05/10/2023 CBC (INCL UDES DIFF/ PLT) eosinophils 1.5 % normal Not Available [facility] [address], [address], 05/10/2023 14:35:43 05/07/2005/10/2023 CBC (INCL UDES DIFF/ PLT) basophils 0.7 % normal Not Available [address], [address], 05/10/2023 14:35:43 05/07/2005/10/2023 VITAM IN B12 vitamin B12 560 pg/mL 200-11 00 normal Not Available [address], [address], 05/10/2023 14:35:44 05/07/2005/10/2023 T3, FREE T3, free 3.5 pg/mL 2.3-4. 2 normal Not Available [address], [address], 05/10/2023 14:35:44 05/07/2005/10/2023 TSH+F REE T4 TSH 2.64 mIU/L 0.40-4 .50 normal Not Available [address], [address], 05/10/2023 14:35:45 05/07/2005/10/2023 TSH+F REE T4 T4, free 1.0 NG/dL 0.8-1. 8 normal Not Available [address], [address], 05/10/2023 14:35:45 05/07/2005/10/2023 HEMOG LOBIN A1C hemoglobin [...] diabe andrea for child jennifer. Not Available [facility] [address] [address] , [place], [address], 05/10/2023 14:35:46 Result Notes None recorded. Problems Name Problem SNOMED Code Status Onset Date Resolution Date Notes Provider Name and Address Organization Details Recorded Time Uncontrolled type 2 diabetes mellitus 210050674 Active 2021 Not Available [facility] 3 23:30:01 Dyslipidemia 512683341 Active 2021 Not Available [facility] 3 23:30:01 Fatigue 94226069 Active 2022 Tia Braun MD [address] [address], [place], [address] , [employer] 3 14:13:53 Well controlled type 2 diabetes mellitus 450761443 Active 2022 Tia Braun MD [address] [address], [place], [address] , [employer] 3 12:35:24 Hypothyroidis m 08362632 Active 2022 NIHARIKA Ervin null, [employer] [facility] [employer] [facility] 3 17:26:46 Vitamin B12 deficiency (non anemic) 72135197 Active 2022 Sarah Wagner null, [employer] 3 09:36:03 Problem Notes None recorded. Procedures Surgical History Date Name Laterality Status Provider Name and Address Organization Details Recorded Time Colonoscopy & polypectomy completed Not Available [facility] 10/31/2022 23:28:47 Hernia Repair completed Not Available [facility] 10/31/2022 23:28:47 Pacemaker completed Not Available [address] [address] 10/31/2022 23:28:47 Kidney Stones completed Not Available [facility] 10/31/2022 23:28:47 Lasik completed Not Available [facility] 09/2022 23:28:47 Tonsillectomy completed Not Available [facility] 10/31/2022 23:28:47 cervical spinal fusion for pseudoarthrosis completed Not Available [facility] 10/31/2022 23:28:47 Hemorrhoidectomy completed Not Available [facility] 10/31/2022 23:28:47 implantation of cardiac pacemaker completed Not Available [facility] 23:28:47 myelogram completed Not Available [address] [address] 10/31/2022 23:28:47 Colonoscopy completed Not Available [facility] 10/31/2022 23:28:47 Laparoscopic cholecystectomy completed Not Available [facility] 10/31/2022 23:28:47 Imaging Results None recorded. Procedure Notes None recorded. Medical Equipment None Reported. Allergies Allergen ID Allergen Name Allergen Category Reaction Reaction Severity Criticality Documentation Date Start Date Code Code System Note Provider Name and Address Organization Details Recorded Time 14425 atropine medicatio n Not available Not available Not available 10/31/2022 1223 RxNorm Not Available [facility] 23:31:13 Medications Name Sig Start Date [...] Ultra-Fine Short Pen Needle 31 gauge x 5/16 active Not Available Not Available Not Available [...] Ultra-Fine Lyudmila Pen Needle 32 gauge x 5/32 active Not Available Not Available Not Available [...] Not Available Not Available Not Available Bernie Duncan U-300 SoloStar 300 unit/mL (3 mL) subcutaneou s insulin pen 05/01 completed Not Available Not Available Not Available Trulicity 3 mg/0.5 mL subcutaneou s pen injector INJECT 3 MG UNDER THE SKIN EVERY WEEK AT DINNER 2022 active Not Available Not Available Not Avai lable BinaxNOW COVID-19 Ag Self Test kit TEST DIRECTED [...] Heart rate Body temperature Body weight Systolic And Diastolic Provider Name and Address Organization Details Last Updated DateTime 3 30.7 kg/m2 170.18 cm 96 % 96 % 85 /min 97.3 [degF] 71564.1 g 120/60 mm[Hg] Not Available [facility] 3 23:29:05 Date Recorded Body mass index (BMI) Body height Oxygen saturation Oxygen saturation in Arterial blood by Pulse oximetry Heart rate Body temperature Body weight Systolic And Diastolic Provider Name and Address Organization Details Last Updated DateTime 2 31.6 kg/m2 170.18 cm 96 % 96 % 67 /min 97.8 [degF] 36736.6 6 g 140/90 mm[Hg] Not Available [facility] 3 23:29:04 Date Recorded Body mass index (BMI) Body height Oxygen saturation Oxygen saturation in Arterial blood by Pulse oximetry Heart rate Body temperature Body weight Systolic And Diastolic Provider Name and Address Organization Details Last Updated DateTime 2 30.9 kg/m2 170.18 cm 99 % 99 % 68 /min 97.8 [degF] 37135.7 g 130/70 mm[Hg] Not Available [facility] 3 23:29:05 Date Recorded Body height Body mass index (BMI) Body weight Body temperature Heart rate Respiratory rate Systolic And Diastolic Provider Name and Address Organization Details Last Updated DateTime 3 170.18 cm 30.3 kg/m2 11468.4 8 g 97.7 [degF] 67 /min 16 /min 126/67 mm[Hg] Siria Weir RN CA - S MD [employer] [facility] 3 11:24:34 Date Recorded Body mass index (BMI) Body height Oxygen saturation Oxygen saturation in Arterial blood by Pulse oximetry Heart rate Body temperature Body weight Systolic And Diastolic Provider Name and Address Organization Details Last Updated DateTime 2 30.9 kg/m2 170.18 cm 99 % 99 % 70 /min 97.4 [degF] 57239.7 g 120/70 mm[Hg] Not Available [facility] 3 23:29:05 Social History Question Answer Notes LastModified by [email or web address] Details LastModified Time Tobacco Smoking Status Former Smoker Not Available [facility] 10/31/2022 23:28:26 What Is Your Level Of Caffeine Consumption? Heavy [id number] Information not available 10/31/2022 What Is The Highest Grade Or Level Of School You Have Completed Or The Highest Degree You Have Received? [id number] Information not available 10/31/2022 When Did You Quit Smoking? 16+yearssinc elastcigaret te [id number] Information not available 10/31/2022 Have You Ever Been Counseled For Unhealthy Alcohol Use? No [id number] Information not available 10/31/2022 What Is Your Relationship Status? [id number] Information not available 10/31/2022 Has Tobacco Cessation Counseling Been Provided? No [id number] Information not available 10/31/2022 Sex: Male Functional Status Question Answer Note LastModified by [email or web address] Details LastModified Time Do you use any illicit or recreational drugs? No [id number] Information not available 10/31/2022 Do you or have you ever used any other forms of tobacco or nicotine? No [id number] Information not available 10/31/2022 What is your level of alcohol consumption? Occasional [id number] Information not available 10/31/2022 Mental Status None recorded. Family History Relationship Description Onset Age of this Age Resolved Age Notes LastModified by Organization Details LastModified Time Paternal Grandmother Diabetes mellitus [id number] Not available 10/31/2022 23:28:48 Father Myocardial infarction [id number] Not available 10/31/2022 23:28:48 Brother Myocardial infarction [id number] Not available 10/31/2022 23:28:48 Paternal Grandfather Chronic obstructive pulmonary disease [id number] Not available 10/31/2022 23:28:48 Maternal Grandfather Chronic obstructive pulmonary disease [id number] Not available 10/31/2022 23:28:48 Paternal Uncle Malignant neoplasm of lung 3uncle s [id number] Not available 10/31/2022 23:28:48 Medical History Condition Response HYPERTHYROIDISM Y EYE PROBLEMS Y HYPOTHYROIDISM Y DIABETES, TYPE Y HEART DISEASE/HEART PROBLEMS Y HYPERTENSION Y HIGH CHOLESTEROL / HYPERLIPIDEMIA Y Past Encounters Encounter ID Performer Location Encounter Start Date Encounter Closed Date Diagnosis/Indication Diagnosis SNOMED-CT Code Diagnosis ICD10 Code Diagnosis Note [id number] MD RON Grant [facility] [address] [place] [address] 08/08/2021 00:00:00 08/08/2021 18:02:40 [id number] MD ESAU Grant_ADA Endo [place] [address] [place] [address] 08/21/2021 00:00:00 08/21/2021 16:22:15 [id number] MD RON Grant Endo [place] [address] [place] [address] 12/18/2021 00:00:00 12/18/2021 17:21:40 [id number] MD RON Grant Endo [place] [address] [place] [address] 05/01/2022 00:00:00 05/01/2022 13:38:06 [id number] MD RON Grant Endo Jackson [address] [place] [id number] 07/05/2022 00:00:00 07/05/2022 10:21:54 [id number] Tia Braun MD [facility] Boris Calles [address] [place] [id number] 10/09/2022 00:00:00 10/09/2022 13:45:15 [id number] Tia Braun MD [facility] Endo Boris Calles [address] [place] [id number] 05/21/2023 11:15:38 05/21/2023 12:03:43 Uncontrolled type 2 diabetes mellitus [id number] E11.65 a1c of 8.3% down from 8.6%- [...] Recommende d patient to utilize the diabetesfo [employer]Jo[employer] from the ADA website to help with food preparatio n as this presents ideal carb content per meal so this will make carb counting much easier for patient. Recommende d he incorporat e natural insulin boil off machine operator cloth s such as pears, apples, cinnamon, bhupendra and sweet potatoes to help mobilize his endogenous insulin. Recommende d up to 150 minutes of moderate level activity/e xercise weekly. refer to endocrinol ogy per patient request. Hypothyroidism [id number] E03.9 FT4 in range- continue synthroid 100 mcg daily. Dyslipidemia [id number] E 78.5 Continue statin therapy as LDL in range. Spent up to 25 minutes preparing to see the patient (eg, review of tests), obtaining and/or reviewing separately obtained history, performing a medically appropriat e examinatio n and evaluation , counseling and educating the patient, ordering medication s, tests, along with documentin g clinical informatio n in the electronic health record, miguelito enriquez interpreti ng results and communicat ing results [...] Guarantor Name 05/18/2023 1 [place] Ced Nichols Coplay [id number] Ced Kaykay 05/18/2023 2 FOR LIFE ( - MEDICARE SUPPLEMENT) Ced Malik Kaykay [id number] Ced Kaykay Notes Date Note Type Note Provider Name [...] mg/dLCr normalLFT normal Tia Braun MD [address] [facility], [facility] [address], [place], [address], [place] - [facility] 05/21/2023 12:27:05
--- NOTE | 2025-04-08 18:50 | WPDSLEEPSTUD ---
Sleep Study Date of Study: 03/23/25 Ordering Provider: Maryann Jiménez DO Interpreting Physician: Rosa Maria Lund MD Sleep Study Type: Polysomnogram Height: 1.68 m Weight: 88.451 kg Body Mass Index: 31.4 Neck Circumference (inches): 16.5 [place]: 3 Reason for Sleep Study Known obstructive sleep apnea, retesting due to new cardiac events * [employer] pacemaker at age 32 for vasovagal episodes, new one placed in December 2024, CAD, CABG x 4 vessels, TIA in 1986 with confusion, DM, hypertension, dyslipidemia. * 12/14/24 [facility] [place]: CABG x 4 vessels; * 11/16/24 [facility] with Dr. Gong: LM 30-40%, diffuse calcification, LAD ostial and prox 70% heavily calcification, mid 70%, distal 1st Diag with 1 mm size 70-80% diffuse , LCx prox 70%, then 50% then 10-20%; OM1 with patent stent, prior to stent 90-95% and after stent 70%; Branch of OM1 with moderate size with 20-40% stenosis; OM2 with 70% stenosis, RCA with stent in mid vessel with 10% instent restenosis then 60-70%; Prox RPDA with 99% stenosis. LV gram was deferred. Referred for CABG. Sleep History Ced Mccracken is a 74-year-old man with coronary artery disease, recovering from bypass surgery. He uses oxygen at night. He has obstructive sleep apnea, has had difficulty tolerating CPAP. He occasionally awakens from sleep feeling short of breath. He rarely wakes at night with heartburn, belching or coughing.??He frequently snores, and frequently snores loudly enough that others complain. He occasionally has trouble sleeping when he has a cold. He occasionally wakes up gasping for breath during the night. He occasionally has breathing problems at night. He never sweats excessively at night. He rarely notices his heart pounding or beating irregularly during the night. He rarely falls asleep during the day. He rarely falls asleep involuntarily, never falls asleep while driving. He never experiences loss of muscle tone with strong emotion. He never has daytime difficulty at work due to excessive sleepiness. He never feels paralyzed on waking or falling asleep. He rarely experiences vivid dreams upon waking or falling asleep. He rarely feels afraid of going to sleep. He rarely has nightmares. He rarely recalls his dreams. He rarely has thoughts racing through his mind. He rarely feels sad or depressed. He rarely feels anxiety. He rarely notices parts of his body jerk. He rarely kicks during the night. He never feels crawling or aching feelings in his legs. He rarely feels leg pain at night. He never has morning jaw pain, rarely grinds his teeth at night. He never feels bothered by pain during the day, never awakened by pain during the night. He rarely wakes up feeling stiff in the morning, and he rarely wakes feeling sore or achy. He rarely awakens with pain in his neck, spine, or joints. He has fatigue, insomnia, nightmares and tremors. Normal bedtime is between 9:00 p.m. and 10:00 p.m., falling asleep within 1-4 hours, waking between 2 and 3 times during the night. When he awakens at night, he may stay awake for 1 hour. Wake time is 8:00 a.m.. He typically gets between 8 and 10 hours of sleep per night. He keeps a similar schedule on weekends. He takes naps in the day, however he does not feel refreshed after a short 10-15 minute nap. He is usually drowsy for 1 hour after waking. He feels better in the morning compared to other times of day. Habits:??Tobacco: former smoker Caffeine: 1 serving daily Alcohol: none Recreational substances: none PMFSH Past Medical History Medical History Mixed hyperlipidemia XOCHITL (obstructive sleep apnea) TIA (transient ischemic attack) Colonic mass Hypertension Obesity CAD (coronary artery disease) Umbilical hernia without mention of obstruction or gangrene Symptomatic cholelithiasis Diabetes mellitus Cervical radiculopathy Esophageal reflux Essential (primary) hypertension Hypothyroidism, unspecified Male erectile dysfunction, unspecified Metabolic syndrome Primary generalized (osteo)arthritis Psoriatic arthropathy Type 2 diabetes mellitus with hyperglycemia Cardiac pacemaker Fusion of spine, cervical region Kidney stone Infective otitis externa of left ear History of cardiac monitoring Surgical History Surgical History History of incision and drainage right upper arm Hx of CABG S/P lumbar laminectomy (~02/2024) Status post colon resection S/P laparoscopic colectomy laparoscopic sigmoid colectomy with colorectal anastomosis, da Yolanda assisted History of laparoscopic cholecystectomy 05/10/20 Hx of tonsillectomy Hx of LASIK Hx of LASIK H/O heart artery stent 3 stents 2009 Family History Family History Sibling Acute myocardial infarction Cerebrovascular accident Depression Carcinoma of colon Grandparent Diabetes mellitus Family history of cardiovascular disease Carcinoma of colon, Onset Age: 85 Father Hypertension Family history of cardiovascular disease Acute myocardial infarction, Onset Age: 72 Social History Social History Social History: Caffeine-daily Smoking packs per day: 1 Smoking cigarettes per day: 20.0 Years smoked: 9 Smoking pack-years: 9.00 Smoking status: Former smoker Tobacco type: cigarettes and pipe Second hand tobacco smoke exposure: No Smoking end date: 09/02/82 Alcohol intake: never Drinks per week: 1 Alcohol use details: Rarely Substance use: never Substance use type: does not use Do You Feel Safe in your Home?: Yes Lack of Transportation: No Lack of Food: Never True Current Housing: I Have Housing Concerned About Future Housing: No Difficulty Paying Gas/Electric Bills: No Difficulty Paying for Meds: No Currently Unemployed: No Education: Master's Degree or Higher Difficulty w/ Childcare or Family Care: No Living arrangements: with family Additional living arrangements comments: DAUGHTER Gender identity (if verbalized by the patient): Male Spiritual care concerns: No Medications Home Medications ?Medication ?Instructions ?Recorded ?Confirmed ?Type aspirin 81 mg tablet,delayed 81 mg PO QAM 08/10/19 03/31/25 History release (Adult Low Dose Aspirin) etanercept 50 mg/mL (1 mL) 50 mg subcut WEEKLY #13 mL 03/28/21 03/31/25 Rx subcutaneous syringe (Enbrel) lancets 28 gauge (FreeStyle #100 ea 11/21/23 03/16/25 Rx Lancets) blood sugar diagnostic (Freestyle #100 ea 01/15/24 03/16/25 Rx InsuLinx Test Strips) acetaminophen 500 mg capsule 1,000 mg PO Q6H PRN 01/14/25 03/31/25 History atorvastatin 40 mg tablet (Lipitor) 40 mg PO .QOD 01/14/25 03/31/25 History cholecalciferol (vitamin D3) 125 125 mcg PO DAILY 01/14/25 03/31/25 History mcg (5,000 unit) capsule cyanocobalamin (vitamin B-12) 500 500 mcg PO DAILY 01/14/25 03/31/25 History mcg tablet dulaglutide 3 mg/0.5 mL 3 mg subcut WEEKLY 01/14/25 03/31/25 History subcutaneous pen injector (Trulicity) furosemide 40 mg tablet 40 mg PO BID 01/14/25 03/31/25 History insulin degludec 100 unit/mL (3 20 unit subcut QHS 01/14/25 03/31/25 History mL) subcutaneous pen (Tresiba FlexTouch U-100 insulin) insulin lispro 100 unit/mL 1 sliding scale dose subcut 01/14/25 03/31/25 History subcutaneous pen (Humalog KwikPen USEASDIRECTD (U-100) Insulin) finasteride 5 mg tablet 5 mg PO DAILY #90 tabs 02/08/25 03/31/25 Rx levothyroxine 100 mcg tablet 100 mcg PO QAM #90 tabs 02/08/25 03/31/25 Rx (Synthroid) losartan 25 mg tablet 25 mg PO DAILY #90 tabs 02/08/25 03/31/25 Rx metformin 1,000 mg tablet 1,000 mg PO DAILY #90 tabs 02/08/25 03/31/25 Rx metoprolol tartrate 25 mg tablet 12.5 mg (1/2 x 25 mg) PO BID #180 02/08/25 03/31/25 Rx tabs omeprazole 40 mg capsule,delayed 40 mg PO DAILY #90 caps 02/08/25 03/31/25 Rx release pen needle, diabetic 32 gauge x #450 ea 02/08/25 03/16/25 Rx /32 potassium chloride 20 mEq 20 meq PO DAILY #90 tabs 02/08/25 03/31/25 Rx tablet,extended release (K-Tab) eszopiclone 2 mg tablet (Lunesta) 2 mg PO QHS #1 tablet 02/18/25 03/31/25 Rx doxycycline hyclate 100 mg capsule 100 mg PO Q12H 7 days #10 caps 03/29/25 03/31/25 Rx clopidogrel 75 mg tablet 75 mg PO DAILY #90 tabs 04/06/25 Rx Sleep Procedure A full night polysomnogram using the [employer] SleepScan multi-channel system recorded the standard physiologic parameters including EEG, EOG, submentalis EMG, anterior tibialis EMG, EKG, body position, nasal and oral airflow using nasal pressure sensor and thermistor. Respiratory parameters of chest and abdominal movements were recorded with Respiratory Inductance Plethysmography belts. Oxygen saturation was recorded by pulse oximetry. Video monitoring was also performed. Sleep stages, periodic limb movements, and EEG arousals were scored in 30 second epochs according to the criteria of the AASM Scoring Manual. The Apnea-Hypopnea Index was calculated using [facility] guidelines for definition of hypopnea while scoring respiratory events. The patient met criteria for split night study, apnea hypopnea index was 59.4 with desaturation to 86%. Most of his events were central apneas. He was fitted with a medium Kauffman [employer] Jeri full face mask, tried initial pressure of 5 cm, 6 cm, EPR was added, CPAP increased to 7 cm, the BiPAP 8/4. Despite attempts by the information technology technician to make the titration as comfortable as possible, the patient did not want to proceed. He wore for the remainder of the night, he had challenges with the PAP titration and eventually decided to stop using CPAP, used oxygen and completed the study as a basic polysomnogram. He told the information technology technician that he was 74 years old and did not need to wear CPAP. Sleep Architecture The total recording time was 490.0 minutes. The total sleep time was 347.5 minutes. Sleep latency was 3.1 minutes. REM latency was 225.5 minutes. Sleep efficiency was 70.9%. The patient had 46 awakenings for an awakening index of 7.9. Wake after sleep onset time was 139.0 minutes. The patient spent 102.5 minutes, 29.5% of total sleep time in Stage N1. The patient spent 207.5 minutes, 59.7% in Stage N2. The patient spent no time in Stage N3. The patient spent 37.5 minutes, 10.8% in Stage REM sleep. Respiratory Analysis The patient had 69 hypopneas, 46 obstructive apneas, 1 mixed apnea, and 228 central apneas for an overall Apnea Hypopnea Index of 59.4. The REM Apnea Hypopnea Index was 38.4. The NREM Apnea Hypopnea Index was 63.1. The patient had a Central Apnea Hypopnea Index of 39.4. There were no Respiratory Effort Related Arousals. The Respiratory Disturbance Index is 72.7 events per hour. There was no evidence of Serafin-Mclaughlin Respirations. The supine apnea-hypopnea index is 65, the nonsupine apnea-hypopnea index is 17.6. Arousals There were 169 total arousals for an arousal index of 29.2. There were 123 spontaneous arousals for an index of 21.2. There were 42 arousals due to respiratory events for an index of 7.3. There were no arousals due to periodic limb movements.There were 4 arousals due to isolated limb movements for an index of 0.7. Periodic Limb Movements The patient had 19 isolated limb movements with an index of 3.3. The patient had no periodic limb movements. Patient had a total of 19 limb movements with a total limb movement index of 3.3. Oximetry Data The patient had an average oxygen saturation of 95.2% in sleep with a minimum oxygen saturation of 86% and a maximum oxygen saturation of 99%. The patient had 248 oxygen desaturations that were 4% or greater resulting in an Oxygen Desaturation Index of 42.8. The patient spent 1.3 minutes, 0.3% of total sleep time with an oxygen saturation below 88%. Snoring Profile Snoring was mild. Cardiac Profile EKG showed normal sinus rhythm, average pulse 70 beats per minute, minimum pulse 63 beats per minute, maximum pulse 83 beats per minute without arrhythmia. Soem paced beats were present. He had occasional PVCs. EEG Profile Unremarkable, no evidence of seizures. Assessment and Plan Assessment and Plan (1) Central sleep apnea: Code(s): G47.31 - Primary central sleep apnea Status: Acute Assessment and Plan: This polysomnogram on March 23, 2025 shows extremely severe sleep apnea, primarily central sleep apnea with an apnea-hypopnea index 59.4, central apnea-hypopnea index 39.4. The central AHI is more than half of the total AHI. Serafin-Mclaughlin respirations noted but did not occur during the majority of the night. Patient has recently had bypass surgery x 4 vessels, and ejection fraction should be obtained. During the cardiac catheterization LV gram was not performed. It is possible that Esrafin Mclaughlin breathing and central apneas are present now due to left ventricular dysfunction. The patient stated that he carolyn not use PAP during the titration. He has O2 at home according to the history, and O2 was used during this study. For patients with central sleep apnea who are appropriate candidates, there are other options besides PAP therapy for central sleep apnea. The Remede system is an implantable battery power device for moderate to severe central sleep apnea which works by stimulating the phrenic nerve. This is a surgical procedure performed by Cardiac physiologists or other physicians in patients who are properly selected. (2) XOCHITL (obstructive sleep apnea): Code(s): G47.33 - Obstructive sleep apnea (adult) (pediatric) Status: Acute Assessment and Plan: Patient has longstanding obstructive sleep apnea, now has newly discovered central sleep apnea. He has been intolerant of PAP therapy previously. He does not have old studies in our system. (3) Positional sleep apnea: Code(s): G47.39 - Other sleep apnea Status: Acute Assessment and Plan: His supine apnea-hypopnea index is more than twice is high as his nonsupine AHI. The supine apnea-hypopnea index is 65, nonsupine apnea-hypopnea index is 17.6. I would recommend the patient avoid sleeping on his back. This can be achieved by using pillows on the abdomen and on the back to prevent rolling supine. (4) Serafin-Mclaughlin breathing: Code(s): R06.3 - Periodic breathing Status: Acute Assessment and Plan: Serafin-Mclaughlin breathing was noted intermittently during the night with high density of central events. Data The data obtained during this sleep study is adequate for interpretation. Certification This sleep study has been reviewed by a board certified sleep medicine physician.
[2025-04-08 23:15] VITALS: BMI 31.4
== END 2025-03-24 06:48 | disposition home or self-care (01) ==
LOC: ANHCSM 08:21
PROVIDERS: PCP Family Medicine; Visit Provider Family Medicine
DX: G47.33 Obstructive sleep apnea (adult) (pediatric) (principal)
CPT/HCPCS: 95810

== ENCOUNTER 2025-03-28 19:53 | Emergency (ER) | payer MEDICARE, OTHER, SELFPAY ==
--- OUTSIDE RECORDS SUMMARY | 2025-03-28 19:55 | XMS_ITS | Encounter Summary ---
Author Organization [facility] Health Address [address] [place] [address] Care Team Providers Care Range Feeder Name Role Phone Unknown, Provider Primary Care Provider Unavaila ble Chai Giraldo MD Primary Care Provider [phone] Syl Mcadams MD Primary Care Provider [phone] Maryann Jiménez DO Primary Care Provider [phone] Encounter Details Date Type Department Care Team (Late st Contact Info) Description 01/02/2010 [facility] Liliana Owens MD [address] [facility] [address] [place] [address] Social History Tobacco Use Types Packs/Day Years Used Date Smoking Tobacco: Never Assessed Sex and Gender Information Value Date Recorded Sex Assigned at Not on file 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 Gender Identity Not on file Sexual Orientation Not on file documented as of this encounter Plan of Treatment Not on file documented as of this encounter Visit Diagnoses Not on filedocumented in this encounter Care Teams Range Feeder Relationship Specialty Start Date End Date Unknown, Provider PCP - General 02/27/10 01/19/14 Chai Giraldo MD [address] [place] [id number] PCP - General 12/24/17 04/28/18 Syl Mcadams MD [address] [place] [address] PCP - General 04/29/18 09/06/22 Maryann Jiménez DO [address] [facility] [address] [place] [address] PCP - General 09/07/22 documented as of this encounter
--- OUTSIDE RECORDS SUMMARY | 2025-03-28 19:55 | XMS_ITS | Encounter Summary ---
Author Organization [facility] Address [address] [facility] [address] [place] [address] Care Team Providers Care Nurse Midwife Name Role Phone Syl Mcadams MD Primary Care Provider [phone] Syl Mcadams MD Primary Care Provider [phone] Miscellaneous, Not In File Primary Care Provider Unavailable Syl Mcadams MD Primary Care Provider [phone] Maryann Jiménez DO Primary Care Provider + Jose David Betancourt MD Unavailable [phone] Ty Lamb MD Unavailable [phone] Jatinder Jones MD Unavailable [phone] Miscellaneous, Not In File Unavailable Unava ilable Encounter Details Date Type Department Care Team (Late st Contact Info) Description 10/29/2016 Orders Only [facility] Provider, MD [address] [place] [address] Social History Tobacco Use Types Packs/Day Years Used Date Smoking Tobacco: Former Alcohol Use Standard Drinks/Week Comments Yes 0 (1 standard drink = 0.6 oz pur e alcohol) Sex and Gender Information Value Date Recorded Sex Assigned at Not on file 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 Gender Identity Male 01/23/2020 12:25 AM CDT [...] documented as of this encounter Care Teams Nurse Midwife Relationship Specialty Start Date End Date Syl Mcadams MD [address] [place] [address] PCP - General 11/30/16 01/21/17 Syl Mcadams MD [address] [place] [address] PCP - General 07/14/13 11/29/16 Miscellaneous, Not In File PCP - General 01/22/17 02/04/17 Syl Mcadams MD [address] [place] [address] PCP - General 02/05/17 07/02/22 Maryann Jiménez DO PCP - General Family Medicine 07/03/22 Jose David Betancourt MD [address] [facility] [address] [place] [address] Consulting Physician Urology 06/19/24 Ty Lamb MD [address] [facility] [address] [place] [address] Surgeon Cardiothoracic Surgery 12/21/24 Jatinder Jones MD [address] [facility] [address] [place] [address] Consulting Physician Cardiology 12/21/24 Miscellaneous, Not In File 12/21/24 documented as of this encounter
--- OUTSIDE RECORDS SUMMARY | 2025-03-28 19:55 | XMS_ITS | Encounter Summary ---
Author Organization [facility] Address [address] [facility] [place] [address] Care Team Providers Care Tin Flipper Name Role Phone Syl Mcadams MD Primary Care Provider [phone] Maryann Jiménez DO Primary Care Provider [phone] Reason for Visit * Reason Onset Date Comments MEDICATION REFILL 11/08/2020 Encounter Details Date Type Department Care Team (Late st Contact Info) Description 11/08/2020 Refill [facility] [address] [place] [address], [place] [address] Nico Jones MD [address] [place] [address] [place] [address] MEDICATION REFILL Social History Tobacco Use Types Packs/Day Years Used Date Smoking Tobacco: Passive Smo ke Exposure - Never Smoker Smokeless Tobacco: Never Alcohol Use Standard Drinks/Week Comments Yes 0 (1 standard drink = 0.6 oz pur e alcohol) occaisional Sex and Gender Information Value Date Recorded Sex Assigned at Not on file 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
--- OUTSIDE RECORDS SUMMARY | 2025-03-28 19:56 | XMS_ITS | Clinical Summary ---
Author Organization [email or web address] Address [address] [facility] [address] [place] [address] Care Team Providers Care Fruit And Vegetable Classer Name Role Phone Maryann Jiménez DO Primary Care Provider [phone] Source Comments [email or web address],non-owned Affiliates and Associated Physician Practices is amultiple site organization consisting of ambulatory clinics and hospital sitesin [place], [place], [place] and [place]. This disclosure is being madepursuant to the Care Everywhere program and may not contain all information available regarding this patient. 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 eGFR by MDRD 82 > OR = [...] 46 U/L [facility] Comment: Test Performed at: [facility] [address] [place] [address] IVY DERAS DO,MPH Blood BLOOD SPECIMEN / Unknown 12/21/2020 11:20 AM CDT 12/21/2020 11:21 AM CDT Nico Jones MD LAB - CHEMISTRY ORDERABLES F inal Result [facility] [id number] [place] [address] from Last 3 Months or Most Recently Relevant to Health Maintenance Insurance [employer] MEDICARE [facility] MANAGED MEDICARE ADV MEDICARE [facility] MANAGED MEDICARE ADV [facility] MANAGED MEDICARE ADV [facility] MANAGED MEDICARE ADV Care Teams Fruit And Vegetable Classer Relationship Specialty Start Date End Date Maryann Jiménez DO [address] [facility] [address] [place] [address] PCP - General 09/07/22
--- OUTSIDE RECORDS SUMMARY | 2025-03-28 19:56 | XMS_ITS | Data Portability ---
Author Organization [place] [facility] [employer], Main Office Address [address] [place] [address] Assessment No assessment recorded. Plan of Treatment Reminders Order Date Submit Date Provider Last Modified By Organization Details Last Modified Time Details Appointments None recorded. Lab None recorded. Referral endocrinolo gy referral 2022 023 [email or web address] Mary Beth Bo MD, [address],, [facility], [place], [address], 3 12:03:44 Procedures None recorded. Surgeries None recorded. Imaging None recorded. Medication Orders atorvastati n 40 mg tablet 2022 023 [facility], [address] [place] [address], [address], 3 12:23:16 Trulicity 3 mg/0.5 mL subcutaneou s pen injector 2022 023 [facility], [address] [place] [address], [address], 3 12:23:15 Tresiba FlexTouch U-200 insulin 200 unit/mL (3 mL) subcutaneou s pen 2022 023 [facility], [address] [place] [address], [address], 3 12:23:17 metformin ER 500 mg tablet,exte nded release 24 hr 2022 023 [facility], [address] [place] [address], [address], 3 12:24:40 Jardiance 25 mg tablet 2022 023 [facility], [address] [place] [address], [address], 3 12:24:41 FreeStyle Lite Strips 2022 023 [facility], [address] [place] [address], [address], 3 12:24:41 glimepiride 4 mg tablet 2022 023 [facility], [address] [place] [address], [address], 3 12:24:40 Synthroid 100 mcg tablet 2022 023 [facility], [address] [place] [address], [address], 3 12:23:17 Patient TargetsNo targets recorded. Patient [...] diabe andrea for child jennifer. Not Available [address], [address], 04/07/2022 13:33:14 04/06/20 22 04/07/2022 TSH TSH 2.20 mIU/L 0.40-4 .50 normal Not Available [address] [place], [address], 04/07/2022 13:33:14 04/06/20 22 04/07/2022 T4, FREE T4, free 1.2 NG/dL 0.8-1. 8 normal Not Available [address], [address], 04/07/2022 13:33:13 04/06/20 22 04/07/2022 ALBUM IN, RANDO M URINE W/CRE ATINI NE creatinine, random urine 108 mg/dL 20-320 normal Not Available [address], [address], 04/07/2022 13:33:13 04/06/20 22 04/07/2022 ALBUM IN, RANDO M URINE W/CRE ATINI NE albumin, urine 1.3 mg/dL see note: normal Refer ence Range : Refer ence Range Not estab lishe d Not Available [address], [address], 04/07/2022 13:33:13 04/06/20 22 04/07/2022 ALBUM IN, [...] ostic categ ory. Not Available [facility] [address] [address] [place], [address], 04/07/2022 13:33:13 04/06/20 22 04/07/2022 COMPR EHENS [...] kdoqi /gfr% 5Fcal culat or Not Available [facility] [address] [address] [place], [address], 04/07/2022 13:33:12 04/06/20 22 04/07/2022 COMPR EHENS JADA METAB OLIC PANEL glucose 105 mg/dL 65-99 high Fasti ng refer ence inter mitchel For someo ne witho ut known diabe andrea, a gluco se value betwe en 100 and 125 mg/dL is consi stent with predi abete s and shoul d be confi rmed with a follo w-up test. Not Available [facility] [address] [place], [address], 04/07/2022 13:33:12 04/06/20 22 04/07/2022 COMPR EHENS JADA METAB OLIC PANEL urea nitrogen (BUN) 16 mg/dL 7-25 normal Not Available [facility] [address] [address] [place], [address], 04/07/2022 13:33:12 04/06/20 22 04/07/2022 COMPR EHENS JADA METAB OLIC PANEL creatinine 0.88 mg/dL 0.70-1 .28 normal Not Available [address], [address], 04/07/2022 13:33:12 04/06/20 22 04/07/2022 COMPR EHENS JADA METAB OLIC PANEL BUN/creatini ne ratio not applic able (calc ) 6-22 Not Available [address], [address], 04/07/2022 13:33:12 04/06/20 22 04/07/2022 COMPR EHENS JADA METAB OLIC PANEL sodium 141 mmol/ L 135-14 6 normal Not Available [address], [address], 04/07/2022 13:33:12 04/06/20 22 04/07/2022 COMPR EHENS JADA METAB OLIC PANEL potassium 3.3 mmol/ L 3.5-5. 3 low Not Available [address], [address], 04/07/2022 13:33:12 04/06/20 22 04/07/2022 COMPR EHENS JADA METAB OLIC PANEL chloride 100 mmol/ L 98-110 normal Not Available [address], [address], 04/07/2022 13:33:12 04/06/20 22 04/07/2022 COMPR EHENS JADA METAB OLIC PANEL carbon dioxide 31 mmol/ L 20-32 normal Not Available [address], [address], 04/07/2022 13:33:12 04/06/20 22 04/07/2022 COMPR EHENS JADA METAB OLIC PANEL calcium 9.3 mg/dL 8.6-10 .3 normal Not Available [address] [place], [address], 04/07/2022 13:33:12 04/06/20 22 04/07/2022 COMPR EHENS JADA METAB OLIC PANEL protein, total 6.8 g/dL 6.1-8. 1 normal Not Available [address], [address], 04/07/2022 13:33:12 04/06/20 22 04/07/2022 COMPR EHENS JADA METAB OLIC PANEL albumin 4.1 g/dL 3.6-5. 1 normal Not Available [address], [address], 04/07/2022 13:33:12 04/06/20 22 04/07/2022 COMPR EHENS JADA METAB OLIC PANEL globulin 2.7 g/dL_ (calc ) 1.9-3. 7 normal Not Available [address], [address], 04/07/2022 13:33:12 04/06/20 22 04/07/2022 COMPR EHENS JADA METAB OLIC PANEL albumin/glob ulin ratio 1.5 (calc ) 1.0-2. 5 normal Not Available [address], [address], 04/07/2022 13:33:12 04/06/20 22 04/07/2022 COMPR EHENS JADA METAB OLIC PANEL bilirubin, total 0.7 mg/dL 0.2-1. 2 normal Not Available [address], [address], 04/07/2022 13:33:12 04/06/20 22 04/07/2022 COMPR EHENS JADA METAB OLIC PANEL alkaline phosphatase 68 U/L 35-144 normal Not Available [address], [address], 04/07/2022 13:33:12 04/06/20 22 04/07/2022 COMPR EHENS JADA METAB OLIC PANEL AST 13 U/L 10-35 normal Not Available [address], [address], 04/07/2022 13:33:12 04/06/20 22 04/07/2022 COMPR EHENS JADA METAB OLIC PANEL ALT 12 U/L 9-46 normal Not Available [address], [address], 04/07/2022 13:33:12 04/06/20 22 04/07/2022 LIPID PANEL , STAND DARRYL chol/HDLC ratio 3.3 (calc ) <5.0 normal Not Available [address], [address], 04/07/2022 13:33:12 04/06/20 22 04/07/2022 LIPID PANEL , STAND DARRYL cholesterol, total 105 mg/dL <200 normal Not Available [address], [address], 04/07/2022 13:33:12 04/06/20 22 04/07/2022 LIPID PANEL , STAND DARRYL HDL cholesterol 32 mg/dL > or = 40 low Not Available [address], [address], 04/07/2022 13:33:12 04/06/20 22 04/07/2022 LIPID PANEL , STAND DARRYL triglyceride s 102 mg/dL <150 normal Not Available [address], [address], 04/07/2022 13:33:12 04/06/20 22 04/07/2022 LIPID PANEL [...] methosman centeno accur acy than the Fried arji equat ion in the estim ation of LDL-C . Lana de anda SS et al. ARISTIDES. 2013; 310(1 9): 2061- 2068 (http ://ed ucati on.Qu estDi fred Domain Appss. com/f aq/FA Q164) Not Available [facility] [address] [place], [address], 04/07/2022 13:33:12 04/06/20 22 04/07/2022 LIPID PANEL , STAND DARRYL non HDL cholesterol 73 mg/dL _(columba c) <130 normal For patie nts with diabe andrea plus 1 major ASCVD risk facto r, treat ing to a non-H DL-C goal of <100 mg/dL (LDL- C of <70 mg/dL ) is consi dered a thera peuti c optio n. Not Available [facility] [address] [place], [address], 04/07/2022 13:33:12 06/28/20 22 06/29/2022 HEMOG LOBIN [...] diabe andrea for child jennifer. Not Available [address], [address], 06/29/2022 19:15:30 06/28/20 22 06/29/2022 TSH+F REE T4 TSH 3.73 mIU/L 0.40-4 .50 normal Not Available [address], [address], 06/29/2022 19:15:30 06/28/20 22 06/29/2022 TSH+F REE T4 T4, free 1.2 NG/dL 0.8-1. 8 normal Not Available [address], [address], 06/29/2022 19:15:30 06/28/20 22 06/29/2022 T3, FREE T3, free 3.0 pg/mL 2.3-4. 2 normal Not Available [address], [address], 06/29/2022 19:15:29 06/28/20 22 06/29/2022 ALBUM IN, RANDO M URINE W/CRE ATINI NE creatinine, random urine 63 mg/dL 20-320 normal Not Available [address], [address], 06/29/2022 19:15:29 06/28/20 22 06/29/2022 ALBUM IN, RANDO M URINE W/CRE ATINI NE albumin, urine 0.6 mg/dL see note: normal Refer ence Range : Refer ence Range Not estab lishe d Not Available [address], [address], 06/29/2022 19:15:29 06/28/20 22 06/29/2022 ALBUM IN, [...] a diagn ostic categ ory. Not Available [address] [place], [address], 06/29/2022 19:15:29 06/28/20 22 06/29/2022 COMPR EHENS JADA METAB OLIC PANEL glucose 117 mg/dL 65-99 high Fasti ng refer ence inter mitchel For someo ne witho ut known diabe andrea, a gluco se value betwe en 100 and 125 mg/dL is consi stent with predi abete s and shoul d be confi rmed with a follo w-up test. Not Available [address], [address], 06/29/2022 19:15:28 06/28/20 22 06/29/2022 COMPR EHENS JADA METAB OLIC PANEL urea nitrogen (BUN) 10 mg/dL 7-25 normal Not Available [facility] [address] [address] [place], [address], 06/29/2022 19:15:28 06/28/20 22 06/29/2022 COMPR EHENS JADA METAB OLIC PANEL creatinine 0.88 mg/dL 0.70-1 .28 normal Not Available [facility] [address] [place], [address], 06/29/2022 19:15:28 06/28/20 22 06/29/2022 COMPR EHENS [...] kdoqi /gfr% 5Fcal culat or Not Available [address] [address] [place], [address], 06/29/2022 19:15:28 06/28/20 22 06/29/2022 COMPR EHENS JADA METAB OLIC PANEL BUN/creatini ne ratio not applic able (calc ) 6-22 Not Available [address] [address] [place], [address], 06/29/2022 19:15:28 06/28/20 22 06/29/2022 COMPR EHENS JADA METAB OLIC PANEL sodium 142 mmol/ L 135-14 6 normal Not Available [address] [address] [place], [address], 06/29/2022 19:15:28 06/28/20 22 06/29/2022 COMPR EHENS JADA METAB OLIC PANEL potassium 3.6 mmol/ L 3.5-5. 3 normal Not Available [address] [address] [place], [address], 06/29/2022 19:15:28 06/28/20 22 06/29/2022 COMPR EHENS JADA METAB OLIC PANEL chloride 100 mmol/ L 98-110 normal Not Available [address] [address] [place], [address], 06/29/2022 19:15:28 06/28/20 22 06/29/2022 COMPR EHENS JADA METAB OLIC PANEL carbon dioxide 32 mmol/ L 20-32 normal Not Available [address] [address] [place], [address], 06/29/2022 19:15:28 06/28/20 22 06/29/2022 COMPR EHENS JADA METAB OLIC PANEL calcium 9.5 mg/dL 8.6-10 .3 normal Not Available [address], [address], 06/29/2022 19:15:28 06/28/20 22 06/29/2022 COMPR EHENS JADA METAB OLIC PANEL protein, total 7.1 g/dL 6.1-8. 1 normal Not Available [address], [address], 06/29/2022 19:15:28 06/28/2006/29/2022 COMPR EHENS JADA METAB OLIC PANEL albumin 4.0 g/dL 3.6-5. 1 normal Not Available [address], [address], 06/29/2022 19:15:28 06/28/20 22 06/29/2022 COMPR EHENS JADA METAB OLIC PANEL globulin 3.1 g/dL_ (calc ) 1.9-3. 7 normal Not Available [address], [address], 06/29/2022 19:15:28 06/28/20 22 06/29/2022 COMPR EHENS JADA METAB OLIC PANEL albumin/glob ulin ratio 1.3 (calc ) 1.0-2. 5 normal Not Available [address], [address], 06/29/2022 19:15:28 06/28/20 22 06/29/2022 COMPR EHENS JADA METAB OLIC PANEL bilirubin, total 0.5 mg/dL 0.2-1. 2 normal Not Available [address], [address], 06/29/2022 19:15:28 06/28/20 22 06/29/2022 COMPR EHENS JADA METAB OLIC PANEL alkaline phosphatase 90 U/L 35-144 normal Not Available [address] [address] [place], [address], 06/29/2022 19:15:28 06/28/20 22 06/29/2022 COMPR EHENS JADA METAB OLIC PANEL AST 15 U/L 10-35 normal Not Available [address] [address] [place], [address], 06/29/2022 19:15:28 06/28/20 22 06/29/2022 COMPR EHENS JADA METAB OLIC PANEL ALT 18 U/L 9-46 normal Not Available [address] [address] [place], [address], 06/29/2022 19:15:28 06/28/20 22 06/29/2022 LIPID PANEL , STAND DARRYL non HDL cholesterol 105 mg/dL _(columba c) <130 normal For patie nts with diabe andrea plus 1 major ASCVD risk facto r, treat ing to a non-H DL-C goal of <100 mg/dL (LDL- C of <70 mg/dL ) is elmer vargaso n. Not Available [address] [address] [place], [address], 06/29/2022 19:15:28 06/28/20 22 06/29/2022 LIPID PANEL , STAND DARRYL cholesterol, total 138 mg/dL <200 normal Not Available [address] [address] [place], [address], 06/29/2022 19:15:28 06/28/20 22 06/29/2022 LIPID PANEL , STAND DARRYL HDL cholesterol 33 mg/dL > or = 40 low Not Available [address] [address] [place], [address], 06/29/2022 19:15:28 06/28/20 22 06/29/2022 LIPID PANEL , STAND DARRYL triglyceride s 162 mg/dL <150 high Not Available [facility] [address] [place], [address], 06/29/2022 19:15:28 06/28/20 22 06/29/2022 LIPID PANEL [...] 2061- 2068 (http ://ed ucati on.Qu Stanley [employer]. com/f aq/FA Q164) Not Available [facility] [address] [address] , [place], [address], 06/29/2022 19:15:28 06/28/20 22 06/29/2022 LIPID PANEL , STAND DARRYL chol/HDLC ratio 4.2 (calc ) <5.0 normal Not Available [facility] [address] [place] [address], [address], 06/29/2022 19:15:28 09/17/19 23 09/18/2022 HEMOG LOBIN A1C hemoglobin A1C 8.6 %_of_ total _HGB <5.7 high For someo ne witho ut known diabe andrea, a hemog lobin A1c value of 6.5% or great er indic ates that they may have diabe andrea and this shoul d be confi rmed with a follo w-up test. For someo ne with known diabe nadrea, a value <7% indic ates that their [...] diabe andrea for child jennifer. Not Available [address], [address], 09/18/2022 13:59:03 09/17/19 23 09/18/2022 T3, FREE T3, free 3.1 pg/mL 2.3-4. 2 normal Not Available [facility] [address], [address], 09/18/2022 13:59:02 09/17/19 23 09/18/2022 TSH TSH 6.04 mIU/L 0.40-4 .50 high Not Available [facility] [address], [address], 09/18/2022 13:59:02 09/17/19 23 09/18/2022 T4, FREE T4, free 1.2 NG/dL 0.8-1. 8 normal Not Available [address], [address], 09/18/2022 13:59:01 09/17/19 23 09/18/2022 CBC (INCL UDES DIFF/ PLT) hemoglobin 16.3 g/dL 13.2-1 7.1 normal Not Available [facility] [address], [address], 09/18/2022 13:59:01 09/17/19 23 09/18/2022 CBC (INCL UDES DIFF/ PLT) white blood cell count 12.2 thous and/u L 3.8-10 .8 high Not Available [facility] [address], [address], 09/18/2022 13:59:01 09/17/19 23 09/18/2022 CBC (INCL UDES DIFF/ PLT) red blood cell count 5.75 destini on/uL 4.20-5 .80 normal Not Available [address], [address], 09/18/2022 13:59:01 09/17/19 23 09/18/2022 CBC (INCL UDES DIFF/ PLT) hematocrit 48.5 % 38.5-5 0.0 normal Not Available [address], [address], 09/18/2022 13:59:01 09/17/19 23 09/18/2022 CBC (INCL UDES DIFF/ PLT) MCV 84.3 fL 80.0-1 00.0 normal Not Available [address], [address], 09/18/2022 13:59:01 09/17/19 23 09/18/2022 CBC (INCL UDES DIFF/ PLT) MCH 28.3 pg 27.0-3 3.0 normal Not Available [address], [address], 09/18/2022 13:59:01 09/17/19 23 09/18/2022 CBC (INCL UDES DIFF/ PLT) MCHC 33.6 g/dL 32.0-3 6.0 normal Not Available [address], [address], 09/18/2022 13:59:01 09/17/19 23 09/18/2022 CBC (INCL UDES DIFF/ PLT) RDW 13.0 % 11.0-1 5.0 normal Not Available [address], [address], 09/18/2022 13:59:01 09/17/19 23 09/18/2022 CBC (INCL UDES DIFF/ PLT) platelet count 285 thous and/u L 140-40 0 normal Not Available [address], [address], 09/18/2022 13:59:01 09/17/19 23 09/18/2022 CBC (INCL UDES DIFF/ PLT) MPV 9.4 fL 7.5-12 .5 normal Not Available [address], [address], 09/18/2022 13:59:01 09/17/19 23 09/18/2022 CBC (INCL UDES DIFF/ PLT) absolute neutrophils 8296 cells /uL 1500-7 800 high Not Available [facility] [address], [address], 09/18/2022 13:59:01 09/17/19 23 09/18/2022 CBC (INCL UDES DIFF/ PLT) absolute lymphocytes 2940 cells /uL 850-39 00 normal Not Available [address], [address], 09/18/2022 13:59:01 09/17/19 23 09/18/2022 CBC (INCL UDES DIFF/ PLT) absolute monocytes 817 cells /uL 200-95 0 normal Not Available [address], [address], 09/18/2022 13:59:01 09/17/19 23 09/18/2022 CBC (INCL UDES DIFF/ PLT) absolute eosinophils 73 cells /uL 15-500 normal Not Available [facility] [address], [address], 09/18/2022 13:59:01 09/17/19 23 09/18/2022 CBC (INCL UDES DIFF/ PLT) absolute basophils 73 cells /uL 0-200 normal Not Available [address], [address], 09/18/2022 13:59:01 09/17/19 23 09/18/2022 CBC (INCL UDES DIFF/ PLT) neutrophils 68 % normal Not Available [address], [address], 09/18/2022 13:59:01 09/17/19 23 09/18/2022 CBC (INCL UDES DIFF/ PLT) lymphocytes 24.1 % normal Not Available [address], [address], 09/18/2022 13:59:01 09/17/19 23 09/18/2022 CBC (INCL UDES DIFF/ PLT) monocytes 6.7 % normal Not Available [address], [address], 09/18/2022 13:59:01 09/17/19 23 09/18/2022 CBC (INCL UDES DIFF/ PLT) eosinophils 0.6 % normal Not Available [address], [address], 09/18/2022 13:59:01 09/17/19 23 09/18/2022 CBC (INCL UDES DIFF/ PLT) basophils 0.6 % normal Not Available [address], [address], 09/18/2022 13:59:01 09/17/19 23 09/18/2022 ALBUM IN, RANDO M URINE W/CRE ATINI NE creatinine, random urine 67 mg/dL 20-320 normal Not Available [address], [address], 09/18/2022 13:59:00 09/17/19 23 09/18/2022 ALBUM IN, RANDO M URINE W/CRE ATINI NE albumin, urine 1.1 mg/dL see note: normal Refer ence Range : Refer ence Range Not estab lishe d Not Available [address], [address], 09/18/2022 13:59:00 09/17/19 23 09/18/2022 ALBUM IN, [...] a diagn ostic categ ory. Not Available [address], [address], 09/18/2022 13:59:00 09/17/19 23 09/18/2022 LIPID PANEL , STAND DARRYL chol/HDLC ratio 3.5 (calc ) <5.0 normal Not Available [address], [address], 09/18/2022 13:59:00 09/17/19 23 09/18/2022 LIPID PANEL , STAND DARRYL cholesterol, total 138 mg/dL <200 normal Not Available [address], [address], 09/18/2022 13:59:00 09/17/19 23 09/18/2022 LIPID PANEL , STAND DARRYL HDL cholesterol 40 mg/dL > or = 40 normal Not Available [facility] [address], [address], 09/18/2022 13:59:00 09/17/19 23 09/18/2022 LIPID PANEL , STAND DARRYL triglyceride s 156 mg/dL <150 high Not Available [address], [address], 09/18/2022 13:59:00 09/17/19 23 09/18/2022 LIPID PANEL [...] 310(1 9): 2061- 2068 (http ://ed ucati on.[employer]. [employer]/f aq/FA Q164) Not Available [facility] [address] [address] [address], [place], [address], 09/18/2022 13:59:00 09/17/19 23 09/18/2022 LIPID PANEL , STAND DARRYL non HDL cholesterol 98 mg/dL _(columba c) <130 normal For patie nts with diabe andrea plus 1 major ASCVD risk facto r, treat ing to a non-H DL-C goal of <100 mg/dL (LDL- C of <70 mg/dL ) is consi hoa vargaso n. Not Available [facility] [address] [address] [address] , [place], [address], 09/18/2022 13:59:00 11/17/19 23 11/19/2022 TESTO STERO NE, FREE, BIOAV AILAB LE AND TOTAL , MS albumin 4.2 g/dL 3.6-5. 1 Not Available [facility] [address], [place], [address], 11/19/2022 15:09:10 11/17/19 23 11/19/2022 TESTO STERO NE, FREE, BIOAV AILAB LE AND TOTAL , MS sex hormone binding globulin 59.3 nmol/ L 22-77 Not Available [facility] [address] [address] [place], [address], 11/19/2022 15:09:10 11/17/19 23 11/19/2022 TESTO STERO NE, FREE, BIOAV AILAB LE AND TOTAL , MS testosterone , free 41.7 pg/mL 6.0-73 .0 Not Available [facility] [address] [address] [address] , [place], [address], 11/19/2022 15:09:10 11/17/19 23 11/19/2022 TESTO STERO NE, FREE, BIOAV AILAB LE AND TOTAL , MS testosterone ,bioavailabl e 80.2 NG/dL 15.0-1 50.0 Not Available [facility] [address] [address] [place], [address], 11/19/2022 15:09:10 11/17/19 23 11/19/2022 TESTO STERO NE, FREE, BIOAV AILAB LE AND TOTAL , MS testosterone , total, MS 512 NG/dL 250-11 00 For addit ional oscar mejia e refer to https ://ed ucati on.qu antonioHCHB Cressey. MobSmith/f aq/FA Q165 (This link is being provi ded for infor fara nal/e ducat ional purpo ses only. ) (Note ) This test was devel oped and its sloan tical perfo rmanc e vance cteri stics have been deter mined by [employer]. It has not been clear ed or appro lovely by the FDA. This assay has been valid ated pursu ant to the CLIA regul ation s and is used for clini columba purpo ses. KATIA hairston n [address] [facility] [address] [place] [address] [phone] Gorge guadalupe MD Not Available [facility] [address] [address] [place], [address], 11/19/2022 15:09:10 02/09/20 23 02/09/2023 LIPID PANEL , STAND DRARYL cholesterol, total 98 mg/dL <200 normal Not Available [address], [address], 02/09/2023 10:24:35 02/09/20 23 02/09/2023 LIPID PANEL , STAND DARRYL HDL cholesterol 27 mg/dL > or = 40 low Not Available [address], [address], 02/09/2023 10:24:35 02/09/20 23 02/09/2023 LIPID PANEL , STAND DARRYL triglyceride s 102 mg/dL <150 normal Not Available [address], [address], 02/09/2023 10:24:35 02/09/20 23 02/09/2023 LIPID PANEL [...] 2061- 2068 (http ://ed ucati on.Qu [employer]. com/f aq/FA Q164) Not Available [address], [address], 02/09/2023 10:24:35 02/09/20 23 02/09/2023 LIPID PANEL , STAND DARRYL chol/HDLC ratio 3.6 (calc ) <5.0 normal Not Available [address] [address] [place], [address], 02/09/2023 10:24:35 02/09/2002/09/2023 LIPID PANEL , STAND DARRYL non HDL cholesterol 71 mg/dL _(columba c) <130 normal For patie nts with diabe andrea plus 1 major ASCVD risk facto r, treat ing to a non-H DL-C goal of <100 mg/dL (LDL- C of <70 mg/dL ) is consi dered a thera peuti c optio n. Not Available [facility] [address] [address] [place], [address], 02/09/2023 10:24:35 02/09/20 23 02/09/2023 COMPR EHENS JADA METAB OLIC PANEL glucose 109 mg/dL 65-99 high Fasti ng refer ence inter mitchel For someo ne witho ut known diabe andrea, a gluco se value betwe en 100 and 125 mg/dL is consi stent with predi abete s and shoul d be confi rmed with a follo w-up test. Not Available [facility] [address] [address], [place], [address], 02/09/2023 10:24:36 02/09/2002/09/2023 COMPR EHENS JADA METAB OLIC PANEL urea nitrogen (BUN) 18 mg/dL 7-25 normal Not Available [facility] [address] [address] [place], [address], 02/09/2023 10:24:36 02/09/20 23 02/09/2023 COMPR EHENS JADA METAB OLIC PANEL creatinine 0.82 mg/dL 0.70-1 .28 normal Not Available [facility] [address] [address] [place], [address], 02/09/2023 10:24:36 02/09/20 23 02/09/2023 COMPR EHENS JADA METAB OLIC PANEL eGFR 93 mL/mi n/1.7 3m2 > or = 60 normal The eGFR is based on the CKD-E PI 2020 equat ion. To calcu late the new eGFR from a previ ous Creat inine or Cysta hakan beauchamp t, go to https :[email or web address] [email or web address] 5Fcal culat or Not Available [address] [address] [place], [address], 02/09/2023 10:24:36 02/09/20 23 02/09/2023 COMPR EHENS JADA METAB OLIC PANEL BUN/creatini ne ratio NOT APPLIC ABLE (calc ) 6-22 Not Available [address], [address], 02/09/2023 10:24:36 02/09/20 23 02/09/2023 COMPR EHENS JADA METAB OLIC PANEL sodium 142 mmol/ L 135-14 6 normal Not Available [address] [address] [place], [address], 02/09/2023 10:24:36 02/09/20 23 02/09/2023 COMPR EHENS JADA METAB OLIC PANEL potassium 3.7 mmol/ L 3.5-5. 3 normal Not Available [address] [address] [place], [address], 02/09/2023 10:24:36 02/09/20 23 02/09/2023 COMPR EHENS JADA METAB OLIC PANEL chloride 101 mmol/ L 98-110 normal Not Available [address] [address] [place], [address], 02/09/2023 10:24:36 02/09/20 23 02/09/2023 COMPR EHENS JADA METAB OLIC PANEL carbon dioxide 29 mmol/ L 20-32 normal Not Available [address] [address] [place], [address], 02/09/2023 10:24:36 02/09/20 23 02/09/2023 COMPR EHENS JADA METAB OLIC PANEL calcium 9.3 mg/dL 8.6-10 .3 normal Not Available [address], [address], 02/09/2023 10:24:36 02/09/20 23 02/09/2023 COMPR EHENS JADA METAB OLIC PANEL protein, total 6.7 g/dL 6.1-8. 1 normal Not Available [address], [address], 02/09/2023 10:24:36 02/09/20 23 02/09/2023 COMPR EHENS JADA METAB OLIC PANEL albumin 4.0 g/dL 3.6-5. 1 normal Not Available [address], [address], 02/09/2023 10:24:36 02/09/20 23 02/09/2023 COMPR EHENS JADA METAB OLIC PANEL globulin 2.7 g/dL_ (calc ) 1.9-3. 7 normal Not Available [address], [address], 02/09/2023 10:24:36 02/09/20 23 02/09/2023 COMPR EHENS JADA METAB OLIC PANEL albumin/glob ulin ratio 1.5 (calc ) 1.0-2. 5 normal Not Available [address], [address], 02/09/2023 10:24:36 02/09/20 23 02/09/2023 COMPR EHENS JADA METAB OLIC PANEL bilirubin, total 0.6 mg/dL 0.2-1. 2 normal Not Available [address], [address], 02/09/2023 10:24:36 02/09/20 23 02/09/2023 COMPR EHENS JADA METAB OLIC PANEL alkaline phosphatase 78 U/L 35-144 normal Not Available [address] [address] [place], [address], 02/09/2023 10:24:36 02/09/20 23 02/09/2023 COMPR EHENS JADA METAB OLIC PANEL AST 13 U/L 10-35 normal Not Available [address] [address] [place], [address], 02/09/2023 10:24:36 02/09/20 23 02/09/2023 COMPR EHENS JADA METAB OLIC PANEL ALT 13 U/L 9-46 normal Not Available [address] [address] [place], [address], 02/09/2023 10:24:36 02/09/20 23 02/09/2023 ALBUM IN, RANDO M URINE W/CRE ATINI NE creatinine, random urine 110 mg/dL 20-320 normal Not Available [address] [address] [place], [address], 02/09/2023 10:24:37 02/09/20 23 02/09/2023 ALBUM IN, RANDO M URINE W/CRE ATINI NE albumin, urine 1.4 mg/dL see note: normal Refer ence Range : Refer ence Range Not estab lishe d Not Available [address], [address], 02/09/2023 10:24:37 02/09/20 23 02/09/2023 ALBUM IN, [...] a diagn ostic categ ory. Not Available [address], [address], 02/09/2023 10:24:37 02/09/20 23 02/09/2023 CBC (INCL UDES DIFF/ PLT) white blood cell count 9.5 thous and/u L 3.8-10 .8 normal Not Available [address], [address], 02/09/2023 10:24:37 02/09/2002/09/2023 CBC (INCL UDES DIFF/ PLT) red blood cell count 5.50 destini on/uL 4.20-5 .80 normal Not Available [address], [address], 02/09/2023 10:24:37 02/09/20 23 02/09/2023 CBC (INCL UDES DIFF/ PLT) hemoglobin 15.5 g/dL 13.2-1 7.1 normal Not Available [address], [address], 02/09/2023 10:24:37 02/09/20 23 02/09/2023 CBC (INCL UDES DIFF/ PLT) hematocrit 45.8 % 38.5-5 0.0 normal Not Available [address], [address], 02/09/2023 10:24:37 02/09/20 23 02/09/2023 CBC (INCL UDES DIFF/ PLT) MCV 83.3 fL 80.0-1 00.0 normal Not Available [facility] [address], [address], 02/09/2023 10:24:37 02/09/20 23 02/09/2023 CBC (INCL UDES DIFF/ PLT) MCH 28.2 pg 27.0-3 3.0 normal Not Available [address], [address], 02/09/2023 10:24:37 02/09/20 23 02/09/2023 CBC (INCL UDES DIFF/ PLT) MCHC 33.8 g/dL 32.0-3 6.0 normal Not Available [address], [address], 02/09/2023 10:24:37 02/09/20 23 02/09/2023 CBC (INCL UDES DIFF/ PLT) RDW 13.1 % 11.0-1 5.0 normal Not Available [address], [address], 02/09/2023 10:24:37 02/09/20 23 02/09/2023 CBC (INCL UDES DIFF/ PLT) platelet count 232 thous and/u L 140-40 0 normal Not Available [address], [address], 02/09/2023 10:24:37 02/09/20 23 02/09/2023 CBC (INCL UDES DIFF/ PLT) MPV 8.8 fL 7.5-12 .5 normal Not Available [address], [address], 02/09/2023 10:24:37 02/09/20 23 02/09/2023 CBC (INCL UDES DIFF/ PLT) absolute neutrophils 6251 cells /uL 1500-7 800 normal Not Available [employer] [address], [address], 02/09/2023 10:24:37 02/09/20 23 02/09/2023 CBC (INCL UDES DIFF/ PLT) absolute lymphocytes 2290 cells /uL 850-39 00 normal Not Available [address], [address], 02/09/2023 10:24:37 02/09/20 23 02/09/2023 CBC (INCL UDES DIFF/ PLT) absolute monocytes 789 cells /uL 200-95 0 normal Not Available [address], [address], 02/09/2023 10:24:37 02/09/20 23 02/09/2023 CBC (INCL UDES DIFF/ PLT) absolute eosinophils 114 cells /uL 15-500 normal Not Available [address], [address], 02/09/2023 10:24:37 02/09/20 23 02/09/2023 CBC (INCL UDES DIFF/ PLT) absolute basophils 57 cells /uL 0-200 normal Not Available [address], [address], 02/09/2023 10:24:37 02/09/20 23 02/09/2023 CBC (INCL UDES DIFF/ PLT) neutrophils 65.8 % normal Not Available [address], [address], 02/09/2023 10:24:37 02/09/20 23 02/09/2023 CBC (INCL UDES DIFF/ PLT) lymphocytes 24.1 % normal Not Available [address], [address], 02/09/2023 10:24:37 02/09/20 23 02/09/2023 CBC (INCL UDES DIFF/ PLT) monocytes 8.3 % normal Not Available [address], [address], 02/09/2023 10:24:37 02/09/20 23 02/09/2023 CBC (INCL UDES DIFF/ PLT) eosinophils 1.2 % normal Not Available [address], [address], 02/09/2023 10:24:37 02/09/20 23 02/09/2023 CBC (INCL UDES DIFF/ PLT) basophils 0.6 % normal Not Available [address], [address], 02/09/2023 10:24:37 02/09/20 23 02/09/2023 T4, FREE T4, free 1.2 NG/dL 0.8-1. 8 normal Not Available [address], [address], 02/09/2023 10:24:38 02/09/2002/09/2023 TSH TSH 2.42 mIU/L 0.40-4 .50 normal Not Available [address], [address], 02/09/2023 10:24:38 02/09/2002/09/2023 VITAM IN B12/F OLATE [...] pg/mL will have sympt oms. Not Available [address], [address], 02/09/2023 10:24:39 02/09/2002/09/2023 VITAM IN B12/F OLATE , SERUM PANEL folate, serum >24.0 NG/mL normal Refer ence Range Low: <3.4 Borde rline : 3.4-5 .4 Karin l: >5.4 Not Available [employer] [address], [address], 02/09/2023 10:24:39 02/09/20 23 02/09/2023 SEX HORMO NE GINA NG GLOBU PEG sex hormone binding globulin 58 nmol/ L 22-77 normal Not Available [facility] [address] [place], [address], 02/09/2023 10:24:40 02/09/2002/09/2023 T3, FREE T3, free 3.5 pg/mL 2.3-4. 2 normal Not Available [facility] [address] [place], [address], 02/09/2023 10:24:40 02/09/2002/09/2023 HEMOG LOBIN A1C hemoglobin [...] for child jennifer. Not Available [facility] [address] [place], [address], 02/09/2023 10:24:41 05/07/2005/10/2023 TESTO STERO NE, FREE, BIOAV AILAB LE AND TOTAL , MS albumin 4.1 g/dL 3.6-5. 1 Not Available [facility] [address] [place], [address], 05/10/2023 14:35:40 05/07/20 23 05/10/2023 TESTO STERO NE, FREE, BIOAV AILAB LE AND TOTAL , MS sex hormone binding globulin 55.7 nmol/ L 22-77 Not Available [address] [address] [place], [address], 05/10/2023 14:35:40 05/07/20 23 05/10/2023 TESTO STERO NE, FREE, BIOAV AILAB LE AND TOTAL , MS testosterone , free 44.2 pg/mL 6.0-73 .0 Not Available [address], [address], 05/10/2023 14:35:40 05/07/20 23 05/10/2023 TESTO STERO NE, FREE, BIOAV AILAB LE AND TOTAL , MS testosterone ,bioavailabl e 83.2 NG/dL 15.0-1 50.0 Not Available [address], [address], 05/10/2023 14:35:40 05/07/2005/10/2023 TESTO STERO NE, FREE, BIOAV AILAB LE AND TOTAL , MS testosterone , total, MS 510 NG/dL 250-11 00 For addit ional infor oscar marroquin e refer to https ://ed ucati on.qu stanley [employer]. [employer]/f aq/FA Q165 (This link is being provi ded for infor matwayne nal/e ducat ional purpo ses only. ) (Note ) This test was devel oped and its sloan tical perfo rmanc e vance cteri stics have been deter mined by [employer]. It has not been clear ed or appro lovely by the FDA. This assay has been valid ated pursu ant to the CLIA regul ation s and is used for clini [place]umb[place] purpo ses. F earl hairston n [address] [facility] [address] [facility] [address] [phone] Nico marcial MD Not Available [facility] [address] [address] [place], [address], 05/10/2023 14:35:40 05/07/20 23 05/10/2023 LIPID PANEL , STAND DARRYL cholesterol, total 113 mg/dL <200 normal Not Available [facility] [address] [address] [place], [address], 05/10/2023 14:35:41 05/07/20 23 05/10/2023 LIPID PANEL , STAND DARRYL HDL cholesterol 29 mg/dL > or = 40 low Not Available [facility] [address] [address] [place], [address], 05/10/2023 14:35:41 05/07/20 23 05/10/2023 LIPID PANEL , STAND DARRYL triglyceride s 148 mg/dL <150 normal Not Available [facility] [address] [address] [place], [address], 05/10/2023 14:35:41 05/07/20 23 05/10/2023 LIPID PANEL [...] 2061- 2068 (http ://ed ucati on.Qu estDi k[employer]Home[employer]. com/f aq/FA Q164) Not Available [facility] [address] [address] [place], [address], 05/10/2023 14:35:41 05/07/2005/10/2023 LIPID PANEL , STAND DARRYL chol/HDLC ratio 3.9 (calc ) <5.0 normal Not Available [address], [address], 05/10/2023 14:35:41 05/07/20 23 05/10/2023 LIPID PANEL , STAND DARRYL non HDL cholesterol 84 mg/dL _(columba c) <130 normal For patie nts with diabe andrea plus 1 major ASCVD risk facto r, treat ing to a non-H DL-C goal of <100 mg/dL (LDL- C of <70 mg/dL ) is consi hoa jacobo optio n. Not Available [address], [address], 05/10/2023 14:35:41 05/07/2005/10/2023 COMPR EHENS JADA METAB OLIC PANEL glucose 162 mg/dL 65-99 high Fasti ng refer ence inter mitchel For someo ne witho ut known diabe andrea, a gluco se value >125 mg/dL indic ates that they may have diabe andrea and this shoul d be confi rmed with a follo w-up test. Not Available [address] [place], [address], 05/10/2023 14:35:42 05/07/2005/10/2023 COMPR EHENS JADA METAB OLIC PANEL urea nitrogen (BUN) 14 mg/dL 7-25 normal Not Available [facility] [address] [address] [place], [address], 05/10/2023 14:35:42 05/07/2005/10/2023 COMPR EHENS JADA METAB OLIC PANEL creatinine 0.95 mg/dL 0.70-1 .28 normal Not Available [facility] [address] [address] [place], [address], 05/10/2023 14:35:42 05/07/20 23 05/10/2023 COMPR EHENS JADA METAB OLIC PANEL eGFR 85 mL/mi n/1.7 3m2 > or = 60 normal Not Available [address], [address], 05/10/2023 14:35:42 05/07/20 23 05/10/2023 COMPR EHENS JADA METAB OLIC PANEL BUN/creatini ne ratio SEE NOTE: (calc ) 6-22 Not Repor lino: BUN and Creat inine are withi n refer ence range . Not Available [address], [address], 05/10/2023 14:35:42 05/07/20 23 05/10/2023 COMPR EHENS JADA METAB OLIC PANEL sodium 140 mmol/ L 135-14 6 normal Not Available [address], [address], 05/10/2023 14:35:42 05/07/20 23 05/10/2023 COMPR EHENS JADA METAB OLIC PANEL potassium 3.8 mmol/ L 3.5-5. 3 normal Not Available [address], [address], 05/10/2023 14:35:42 05/07/20 23 05/10/2023 COMPR EHENS JADA METAB OLIC PANEL chloride 101 mmol/ L 98-110 normal Not Available [address], [address], 05/10/2023 14:35:42 05/07/20 23 05/10/2023 COMPR EHENS JADA METAB OLIC PANEL carbon dioxide 31 mmol/ L 20-32 normal Not Available [address], [address], 05/10/2023 14:35:42 05/07/20 23 05/10/2023 COMPR EHENS JADA METAB OLIC PANEL calcium 9.5 mg/dL 8.6-10 .3 normal Not Available [address], [address], 05/10/2023 14:35:42 05/07/20 23 05/10/2023 COMPR EHENS JADA METAB OLIC PANEL protein, total 6.8 g/dL 6.1-8. 1 normal Not Available [address], [address], 05/10/2023 14:35:42 05/07/20 23 05/10/2023 COMPR EHENS JADA METAB OLIC PANEL albumin 4.2 g/dL 3.6-5. 1 normal Not Available [address], [address], 05/10/2023 14:35:42 05/07/20 23 05/10/2023 COMPR EHENS JADA METAB OLIC PANEL globulin 2.6 g/dL_ (calc ) 1.9-3. 7 normal Not Available [address], [address], 05/10/2023 14:35:42 05/07/20 23 05/10/2023 COMPR EHENS JADA METAB OLIC PANEL albumin/glob ulin ratio 1.6 (calc ) 1.0-2. 5 normal Not Available [address], [address], 05/10/2023 14:35:42 05/07/20 23 05/10/2023 COMPR EHENS JADA METAB OLIC PANEL bilirubin, total 0.5 mg/dL 0.2-1. 2 normal Not Available [address], [address], 05/10/2023 14:35:42 05/07/20 23 05/10/2023 COMPR EHENS JADA METAB OLIC PANEL alkaline phosphatase 88 U/L 35-144 normal Not Available [facility] [employer] [address] [place], [address], 05/10/2023 14:35:42 05/07/20 23 05/10/2023 COMPR EHENS JADA METAB OLIC PANEL AST 14 U/L 10-35 normal Not Available [address], [address], 05/10/2023 14:35:42 05/07/20 23 05/10/2023 COMPR EHENS JADA METAB OLIC PANEL ALT 18 U/L 9-46 normal Not Available [address], [address], 05/10/2023 14:35:42 05/07/20 23 05/10/2023 ALBUM IN, RANDO M URINE W/CRE ATINI NE creatinine, random urine 66 mg/dL 20-320 normal Not Available [address], [address], 05/10/2023 14:35:42 05/07/20 23 05/10/2023 ALBUM IN, RANDO M URINE W/CRE ATINI NE albumin, urine 0.8 mg/dL see note: normal Refer ence Range : Refer ence Range Not estab lishe d Not Available [address], [address], 05/10/2023 14:35:42 05/07/20 23 05/10/2023 ALBUM IN, [...] a diagn ostic categ ory. Not Available [address], [address], 05/10/2023 14:35:42 05/07/20 23 05/10/2023 CBC (INCL UDES DIFF/ PLT) white blood cell count 8.2 thous and/u L 3.8-10 .8 normal Not Available [address], [address], 05/10/2023 14:35:43 05/07/2005/10/2023 CBC (INCL UDES DIFF/ PLT) red blood cell count 5.44 destini on/uL 4.20-5 .80 normal Not Available [facility] [address], [address], 05/10/2023 14:35:43 05/07/20 23 05/10/2023 CBC (INCL UDES DIFF/ PLT) hemoglobin 16.3 g/dL 13.2-1 7.1 normal Not Available [address], [address], 05/10/2023 14:35:43 05/07/2005/10/2023 CBC (INCL UDES DIFF/ PLT) hematocrit 46.0 % 38.5-5 0.0 normal Not Available [address], [address], 05/10/2023 14:35:43 05/07/20 23 05/10/2023 CBC (INCL UDES DIFF/ PLT) MCV 84.6 fL 80.0-1 00.0 normal Not Available [facility] [address], [address], 05/10/2023 14:35:43 05/07/20 23 05/10/2023 CBC (INCL UDES DIFF/ PLT) MCH 30.0 pg 27.0-3 3.0 normal Not Available [address], [address], 05/10/2023 14:35:43 05/07/2005/10/2023 CBC (INCL UDES DIFF/ PLT) MCHC 35.4 g/dL 32.0-3 6.0 normal Not Available [address], [address], 05/10/2023 14:35:43 05/07/2005/10/2023 CBC (INCL UDES DIFF/ PLT) RDW 13.2 % 11.0-1 5.0 normal Not Available [address], [address], 05/10/2023 14:35:43 05/07/20 23 05/10/2023 CBC (INCL UDES DIFF/ PLT) platelet count 257 thous and/u L 140-40 0 normal Not Available [address], [address], 05/10/2023 14:35:43 05/07/2005/10/2023 CBC (INCL UDES DIFF/ PLT) MPV 8.9 fL 7.5-12 .5 normal Not Available [address], [address], 05/10/2023 14:35:43 05/07/20 23 05/10/2023 CBC (INCL UDES DIFF/ PLT) absolute neutrophils 4879 cells /uL 1500-7 800 normal Not Available [address], [address], 05/10/2023 14:35:43 05/07/20 23 05/10/2023 CBC (INCL UDES DIFF/ PLT) absolute lymphocytes 2378 cells /uL 850-39 00 normal Not Available [address], [address], 05/10/2023 14:35:43 05/07/20 23 05/10/2023 CBC (INCL UDES DIFF/ PLT) absolute monocytes 763 cells /uL 200-95 0 normal Not Available [address], [address], 05/10/2023 14:35:43 05/07/20 23 05/10/2023 CBC (INCL UDES DIFF/ PLT) absolute eosinophils 123 cells /uL 15-500 normal Not Available [address], [address], 05/10/2023 14:35:43 05/07/20 23 05/10/2023 CBC (INCL UDES DIFF/ PLT) absolute basophils 57 cells /uL 0-200 normal Not Available [address], [address], 05/10/2023 14:35:43 05/07/20 23 05/10/2023 CBC (INCL UDES DIFF/ PLT) neutrophils 59.5 % normal Not Available [facility] [address], [address], 05/10/2023 14:35:43 05/07/20 23 05/10/2023 CBC (INCL UDES DIFF/ PLT) lymphocytes 29.0 % normal Not Available [address], [address], 05/10/2023 14:35:43 05/07/20 23 05/10/2023 CBC (INCL UDES DIFF/ PLT) monocytes 9.3 % normal Not Available [facility] [address], [address], 05/10/2023 14:35:43 05/07/20 23 05/10/2023 CBC (INCL UDES DIFF/ PLT) eosinophils 1.5 % normal Not Available [facility] [address], [address], 05/10/2023 14:35:43 05/07/2005/10/2023 CBC (INCL UDES DIFF/ PLT) basophils 0.7 % normal Not Available [address], [address], 05/10/2023 14:35:43 05/07/2005/10/2023 VITAM IN B12 vitamin B12 560 pg/mL 200-11 00 normal Not Available [address], [address], 05/10/2023 14:35:44 05/07/2005/10/2023 T3, FREE T3, free 3.5 pg/mL 2.3-4. 2 normal Not Available [address], [address], 05/10/2023 14:35:44 05/07/2005/10/2023 TSH+F REE T4 TSH 2.64 mIU/L 0.40-4 .50 normal Not Available [address], [address], 05/10/2023 14:35:45 05/07/2005/10/2023 TSH+F REE T4 T4, free 1.0 NG/dL 0.8-1. 8 normal Not Available [address], [address], 05/10/2023 14:35:45 05/07/2005/10/2023 HEMOG LOBIN A1C hemoglobin [...] diabe andrea for child jennifer. Not Available [facility] [address] , [place], [address], 05/10/2023 14:35:46 Result Notes None recorded. Problems Name Problem SNOMED Code Status Onset Date Resolution Date Notes Provider Name and Address Organization Details Recorded Time Uncontrolled type 2 diabetes mellitus 153763022 Active 2021 Not Available [facility] 3 23:30:01 Dyslipidemia 868374848 Active 2021 Not Available [facility] 3 23:30:01 Fatigue 20350709 Active 2022 Tia Braun MD [address] [address], [place], [address] , [employer] 3 14:13:53 Well controlled type 2 diabetes mellitus 310744361 Active 2022 Tia Braun MD [address] [address], [place], [address] , [employer] 3 12:35:24 Hypothyroidis m 47438776 Active 2022 NIHARIKA Ervin null, [facility] [employer] [facility] 3 17:26:46 Vitamin B12 deficiency (non anemic) 39259708 Active 2022 Sarah Wagner null, [employer] 3 09:36:03 Problem Notes None recorded. Procedures Surgical History Date Name Laterality Status Provider Name and Address Organization Details Recorded Time Colonoscopy & polypectomy completed Not Available [facility] 10/31/2022 23:28:47 Hernia Repair completed Not Available [facility] 10/31/2022 23:28:47 Pacemaker completed Not Available [address] [address] 10/31/2022 23:28:47 Kidney Stones completed Not Available [facility] 10/31/2022 23:28:47 Lasik completed Not Available [facility] 09/2022 23:28:47 Tonsillectomy completed Not Available [facility] 10/31/2022 23:28:47 cervical spinal fusion for pseudoarthrosis completed Not Available [facility] 10/31/2022 23:28:47 Hemorrhoidectomy completed Not Available [facility] 10/31/2022 23:28:47 implantation of cardiac pacemaker completed Not Available [facility] 23:28:47 myelogram completed Not Available [address] [address] 10/31/2022 23:28:47 Colonoscopy completed Not Available [facility] 10/31/2022 23:28:47 Laparoscopic cholecystectomy completed Not Available [facility] 10/31/2022 23:28:47 Imaging Results None recorded. Procedure Notes None recorded. Medical Equipment None Reported. Allergies Allergen ID Allergen Name Allergen Category Reaction Reaction Severity Criticality Documentation Date Start Date Code Code System Note Provider Name and Address Organization Details Recorded Time 83092 [facility] n Not available Not available Not available 10/31/2022 1223 RxNorm Not Available [facility] 23:31:13 Medications Name Sig Start Date Stop [...] % 96 % 85 /min 97.3 [degF] 24918.1 g 120/60 mm[Hg] Not Available [facility] 3 23:29:05 Date Recorded Body mass index (BMI) Body height Oxygen saturation Oxygen saturation in Arterial blood by Pulse oximetry Heart rate Body temperature Body weight Systolic And Diastolic Provider Name and Address Organization Details Last Updated DateTime 2 31.6 kg/m2 170.18 cm 96 % 96 % 67 /min 97.8 [degF] 37690.6 6 g 140/90 mm[Hg] Not Available [facility] 3 23:29:04 Date Recorded Body mass index (BMI) Body height Oxygen saturation Oxygen saturation in Arterial blood by Pulse oximetry Heart rate Body temperature Body weight Systolic And Diastolic Provider Name and Address Organization Details Last Updated DateTime 2 30.9 kg/m2 170.18 cm 99 % 99 % 68 /min 97.8 [degF] 07064.7 g 130/70 mm[Hg] Not Available [facility] 3 23:29:05 Date Recorded Body height Body mass index (BMI) Body weight Body temperature Heart rate Respiratory rate Systolic And Diastolic Provider Name and Address Organization Details Last Updated DateTime 3 170.18 cm 30.3 kg/m2 06610.4 8 g 97.7 [degF] 67 /min 16 /min 126/67 mm[Hg] Siria Weir RN [place] [employer] [facility] 3 11:24:34 Date Recorded Body mass index (BMI) Body height Oxygen saturation Oxygen saturation in Arterial blood by Pulse oximetry Heart rate Body temperature Body weight Systolic And Diastolic Provider Name and Address Organization Details Last Updated DateTime 2 30.9 kg/m2 170.18 cm 99 % 99 % 70 /min 97.4 [degF] 66835.7 g 120/70 mm[Hg] Not Available [facility] 3 23:29:05 Social History Question Answer Notes LastModified by [employer] Details LastModified Time Tobacco Smoking Status Former Smoker Not Available [facility] 10/31/2022 23:28:26 What Is Your Level Of Caffeine Consumption? Heavy [id number] Information not available 10/31/2022 What Is The Highest Grade Or Level Of School You Have Completed Or The Highest Degree You Have Received? [id number] Information not available 10/31/2022 When Did You Quit Smoking? 16+yearssinc elastcigaret te [id number] Information not available 10/31/2022 Have You Ever Been Counseled For Unhealthy Alcohol Use? No [id number] Information not available 10/31/2022 What Is Your Relationship Status? [id number] Information not available 10/31/2022 Has Tobacco Cessation Counseling Been Provided? No [id number] Information not available 10/31/2022 Sex: Male Functional Status Question Answer Note LastModified by [employer] Details LastModified Time Do you use any illicit or recreational drugs? No [id number] Information not available 10/31/2022 Do you or have you ever used any other forms of tobacco or nicotine? No [id number] Information not available 10/31/2022 What is your level of alcohol consumption? Occasional [id number] Information not available 10/31/2022 Mental Status None recorded. Family History Relationship Description Onset Age of this Age Resolved Age Notes LastModified by Organization Details LastModified Time Paternal Grandmother Diabetes mellitus [id number] Not available 10/31/2022 23:28:48 Father Myocardial infarction [id number] Not available 10/31/2022 23:28:48 Brother Myocardial infarction [id number] Not available 10/31/2022 23:28:48 Paternal Grandfather Chronic obstructive pulmonary disease [id number] Not available 10/31/2022 23:28:48 Maternal Grandfather Chronic obstructive pulmonary disease [id number] Not available 10/31/2022 23:28:48 Paternal Uncle Malignant neoplasm of lung 3uncle s [id number] Not available 10/31/2022 23:28:48 Medical History Condition Response EYE PROBLEMS Y HYPERTHYROIDISM Y HYPOTHYROIDISM Y DIABETES, TYPE Y HEART DISEASE/HEART PROBLEMS Y HYPERTENSION Y HIGH CHOLESTEROL / HYPERLIPIDEMIA Y Past Encounters Encounter ID Performer Location Encounter Start Date Encounter Closed Date Diagnosis/Indication Diagnosis SNOMED-CT Code Diagnosis ICD10 Code Diagnosis Note [id number] MD RON Grant [facility] [place] [address] [place] [address] 08/08/2021 00:00:00 08/08/2021 18:02:40 [id number] MD ESAU Grant_ADA [facility] [place] [address] [place] [address] 08/21/2021 00:00:00 08/21/2021 16:22:15 [id number] MD RON Grant [facility] [place] [address] [place] [address] 12/18/2021 00:00:00 12/18/2021 17:21:40 [id number] MD RON Grant [facility] [place] [address] [place] [address] 05/01/2022 00:00:00 05/01/2022 13:38:06 [id number] MD RON Grant [facility] [place] [address] [place] [address] 07/05/2022 00:00:00 07/05/2022 10:21:54 [id number] Tia Braun MD S_[facility]G [facility] [place] [address] [address] [place] [place] [id number] 10/09/2022 00:00:00 10/09/2022 13:45:15 [id number] Tia Braun MD [facility] Boris Calles [address] [place] [id number] 05/21/2023 11:15:38 05/21/2023 12:03:43 Uncontrolled type 2 diabetes mellitus [id number] E11.65 a1c of 8.3% down from 8.6%- [...] Recommende d patient to utilize the diabetesfo [employer] from the ADA website to help with food preparatio n as this presents ideal carb content per meal so this will make carb counting much easier for patient. Recommende d he incorporat e natural insulin darklight inspector s such as pears, apples, cinnamon, bhupendra and sweet potatoes to help mobilize his endogenous insulin. Recommende d up to 150 minutes of moderate level activity/e xercise weekly. refer to endocrinol ogy per patient request. Hypothyroidism [id number] E03.9 FT4 in range- continue synthroid 100 mcg daily. Dyslipidemia [id number] E 78.5 Continue statin therapy as LDL [...] 05/18/2023 1 [place] Ced Simone Mccracken [id number] Ced Mccracken 05/18/2023 2 FOR LIFE ( - MEDICARE SUPPLEMENT) Ced Malik Mccracken [id number] Ced Mccracken Notes Date Note Type Note Provider Name and Address Organization Details Recorded Time 05/21/2023 text/html ROS as noted in the HPI 72 yo male comes in for follow [...] normalLFT normal Tia Braun MD [address] [facility], [facility] [address], [place], [address], [place] - [facility] 05/21/2023 12:27:05
--- OUTSIDE RECORDS SUMMARY | 2025-03-28 19:56 | XMS_ITS | Encounter Summary ---
Author Organization [facility] Health Address [address] [place] [address] Care Team Providers Care Cto Name Role Phone Unknown, Provider Primary Care Provider Unavaila ble Chai Giraldo MD Primary Care Provider [phone] Syl Mcadams MD Primary Care Provider [phone] Maryann Jiménez DO Primary Care Provider [phone] Encounter Details Date Type Department Care Team (Late st Contact Info) Description 03/03/2012 [facility] Liliana Owens MD [address] [facility] [address] [place] [address] Social History Tobacco Use Types Packs/Day Years Used Date Smoking Tobacco: Never Assessed Sex and Gender Information Value Date Recorded Sex Assigned at Not on file 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 Gender Identity Not on file Sexual Orientation Not on file documented as of this encounter Plan of Treatment Not on file documented as of this encounter Visit Diagnoses Not on filedocumented in this encounter Care Teams Cto Relationship Specialty Start Date End Date Unknown, Provider PCP - General 02/27/10 01/19/14 Chai Giraldo MD [address] [place] [id number] PCP - General 12/24/17 04/28/18 Syl Mcadams MD [address] [place] [address] PCP - General 04/29/18 09/06/22 Maryann Jiménez DO [address] [facility] [address] [place] [address] PCP - General 09/07/22 documented as of this encounter
--- OUTSIDE RECORDS SUMMARY | 2025-03-28 19:56 | XMS_ITS | Clinical Summary ---
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 3 each 3 02/19/20 25 Active Active Problems Problem Noted Date Diagnosed [...] are complete. Avoid live-vaccines unless reviewed with drafter detail first. Overexertion from strenuous movement or load, [...] 08/07/2017 Assessment & Plan (08/17/2024 11:11 AM BLASTING COAL MINER): Chronic, worsening. Restart Trulicity 3 mg weekly [...] and Trulicity Send me a message via [employer] every week, so we can look at [...] Overview (12/08/2016): Essential hypertension Coronary arteriosclerosis in wiyot artery 09/28 Overview (12/08/2016): Coronary artery disease involving wiyot coronary artery of wiyot heart without angina pectoris Arthralgia of shoulder [...] Encounters Date Type Department Care Team Description 03/26/2025 6:50 AM CDT [address] [address] Memory loss; Encounter for medical screening examination 03/25/2025 3:15 PM CDT Office Visit [facility] [address] [place] [address] [address] [place] [address] Juany Teague MD Memory loss (Primary Dx); Encounter for medical screening examination 02/12/[address] [facility] Medical Group Cardiology [address] [facility] [address] [place] [address] Jatinder Jones MD 02/11/2025 Telephone [facility] [id number] [place] [address] [address] [place] [address] Alireza Clark MD Med Refill 01/27/2025 10:30 AM CDT Home Care Visit [address] [place] [address] Lori Puckett SN OASIS DISCHARGE 01/26/2025 1:15 PM CDT Office Visit [facility] Surgery [address] [place] [address] [address] [place] [address] Ty Lamb MD Coronary artery disease (CAD) excluded (Primary Dx) 01/25/2025 [facility] Post Discharge Follow up phone call [facility] [id number] [place] [address] Ariella Larsen 01/21/2025 10:30 AM CDT Home Care Visit [address] [place] [address] Lori Puckett SN HOME VISIT 01/18/2025 9:30 AM CDT Home Care Visit [address] [place] [address] Lori Puckett SN HOME VISIT 01/18/2025 Telephone [facility] [address] [place] [address] [address], [place] [address] Alireza Clark MD 01/14/2025 Plan of Care Documentation [address] [place] [address] 01/13/2025 12:30 PM CDT Home Care Visit [address] [place] [address] Kaitlynn Elizalde, RN SN OASIS RESUMPTION OF CARE 01/12/[address] [facility] Cardiology [address] [facility] [address], [place] [address] Jatinder Jones MD Presence of cardiac pacemaker (Primary Dx); SSS (sick sinus syndrome) (HCC); Bradycardia 01/12/2025 Orders Only [facility] Surgery [address] [facility] [address] [place] [address] Jose Vega NP 01/08/2025 3:36 PM CDT Anesthesia Event [facility] Operating Room [id number] [place] [address] Karen Tavarez DO Vuong, Peter Thuan, MD 01/08/2025 3:20 PM CDT - 01/08/2025 5:20 PM CDT Surgery [facility] Operating Room [id number] [place] [address] Ty Lamb MD REPLACE PACEMAKER GENERATOR FROM ABDOMEN WITH FLUOROSCOPY 01/07/2025 1:01 PM CDT - 01/11/2025 7:12 PM CDT Hospital Encounter [facility] [address] [place] [address] Sindhu Whittington MD Munfakh, Nabil A., MD Brother, Michele, MD Rivera, Samantha, MD Cardiac tamponade (Primary Dx); Cervical myofascial pain syndrome; Syncope and collapse; Frailty syndrome in geriatric patient Discharge Disposition: Discharge to home, home health skilled care 01/07/2025 12:18 PM CDT - 01/07/2025 11:59 PM CDT Hospital Encounter [facility] BILLING Emergency, Room R Discharge Disposition: Discharge to home or self care 01/07/2025 8:28 AM CDT - 01/07/2025 12:14 PM CDT Emergency [facility] Emergency Department [address] [place], [place] [address] Jt Zacarias MD Lo Bianco, Salvador, MD Cardiac tamponade (Primary Dx); Bradycardia; Heart block Discharge Disposition: Discharge to a short term hospital for IP 01/07/2025 8:15 AM CDT - 01/07/2025 11:59 PM CDT Hospital Encounter [facility]ANCE BILLING Emergency, Room R Discharge Disposition: Discharge to home or self care 01/07/2025 Home Care Visit [address] [address] [address] [place] [address] Lori Puckett SN OASIS TRANSFER W/OUT DC 01/05/2025 10:00 AM CDT Home Care Visit [address] [place] [address] Lori Puckett HOME VISIT 01/05/2025 [facility] Post Discharge Follow up phone call [address] [address] Ariella Larsen 01/05/2025 [facility] Post Discharge Follow up phone call [address] [address] Ariella Larsen 01/01/2025 2:45 PM CDT - 01/01/2025 11:59 PM CDT Hospital Encounter [facility] Radiology - Outpatient Center at [address] [address] Acute cough Discharge Disposition: Discharge to home or self care 01/01/2025 2:15 PM CDT Office Visit [facility] Medical [facility] Convenient Care at [address] [phone] Nayely Sharp NP Acute cough (Primary Dx) 01/01/2025 9:30 AM CDT Home Care Visit [address] [address] [address] [place] [address] Kristal Allen, TOÑO SN HOME VISIT 01/01/2025 Results Follow-Up [facility]ient Care at [address] [place] [phone] Nayely Sharp NP XR Chest Pa Lateral 2 Views 01/01/2025 Documentation [facility] [address] [facility] [address] [place] [address] Jose Vega NP 12/31/2024 Orders Only [facility] Surgery [address] [place] [address] [address] [place] [address] Jose Vega NP 12/29/2024 11:30 AM CDT Home Care Visit [address] [address] [address] [place] [address] Kristal Allen RN SN HOME VISIT 12/29/2024 Home Care Visit [address] [place] [address] Lori Puckett CARE CONFERENCE 12/28/2024 12:00 PM CDT - 12/28/2024 11:59 PM CDT Hospital Encounter [facility] Diagnostic Imaging [address] [place] [address] S/P CABG (coronary artery bypass graft) Discharge Disposition: Discharge to home or self care 12/28/2024 Documentation [facility] Surgery [address] [place] [address] [address] [place] [address] Jose Vega NP 12/28/2024 Orders Only [facility] Surgery [address] [place] [address] [address] [place] [address] Jose Vega NP S/P CABG (coronary artery bypass graft) (Primary Dx) from Last 3 Months Immunizations [...] 1986 TIA Cataract Palpitations Pacemaker pacemaker in [facility], but does not work, per patient decided he didn't need it anymore Coronary artery disease Family History Medical History Relation Name Comments Heart attack Brother Stroke Brother Drug abuse Father Eugenia Shultz Hearing loss Father Eugenia Shultz Hearing disorde r; Heart attack Father Eugenia Kaykay Heart disease Father Eugenia Shultz Kidney disease Father Eugenia Shultz COPD Maternal Grandfather Remington Yovani Heart disease Maternal Grandfather Remington Pina Heart disease; Mental illness Maternal Grandmother Amanthliyahlawanda Yovani Alcohol abuse Mother Emily Shultz Heart attack [...] materials from doctor or pharmacy Never 01/27/2025 [facility] Utilities Answer Date Recorded In the past 12 months has e [employer], gas, oil, or water HW threatened to shut off services in your [...] week 01/11/2025 How often do you attend [facility] or druze services? More than 4 times per year 01/11/2025 Do you belong to any clubs o r organizations such as latter-day groups, unions, fraternal or athletic groups, or [...] staff should administer the PHQ-9) 0 08/17/2024 [facility] of Occupat ional Health - Occupational Stress [...] any time in the past 12 [facility], were you homeless or living in a longterm (including now)? No 01/11/2025 Personal Safety Answer Date Recorded Have you ever been in or are you currently in a harmful physical or emotional relationship or is someone making you feel afraid or unsafe? 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 Male 3:55 AM BLASTING COAL MINER Gender Identity Male 01/23/2020 12:25 AM CDT Sexual Orientation Straight 01/23/2020 12 :25 AM CDT Obstetrics History Last Filed Vital Signs Vital Sign Reading Time Taken Comments Blood Pressure 147/73 03/25/2025 3:29 PM CDT Pulse 77 03/25/2025 3:29 PM CDT Temperature 36.8 C (98.3 F) 03/25/2025 3:29 PM CDT Respiratory Rate 18 03/25/2025 3:29 PM CDT Oxygen Saturation 99% 03/25/2025 3:29 PM CDT Inhaled Oxygen Concentration - - Weight 92 kg (202 lb 14.4 oz) 03/25/2025 3:29 PM CDT Height 172.7 cm (5' 8) 03/25/2025 3:29 PM CDT Body Mass Index 30.85 03/25/2025 3:29 PM CDT Plan of Treatment Health Maintenance [...] 05/16/2021, 04/25/2021 Albumin Creatinine Ratio, Urine 04/01/2025 4 Lipid Panel 04/01/2025 04/01/2024, 12/31, 11/29/2021, Additional history exists Influenza Vaccine (#1) 2025 , 06/08/2022, 05/11/2020, Additional history exists Hemoglobin A1C 06/19/2025 12/18/2024, 08/02, 05/25/2024, Additional history exists Depression Screening 08/17/2025 08/17/2024, 01/05/2022, 02/10/2020, Additional history exists Fall Risk Assessment 01/11/2026 01/11/2025, 08/17/2024, 01/05/2022 eGFR 01/11/2026 01/11/2025, 12/31, 01/10/2025, Additional history exists Goals Goal Patient Goal Type Associated Problems Recent Progress Patient-Stated? Author BH-Pain Behavioral Health Worsening(01/2021 2:46 PM CDT) No Flor Lewis, RN Note: Play golf with minimal to no relief. Medical Devices Implanted Type Area Interior Wall Assembler Device Identifier Shelf Expiration Date Model / Serial / Lot [employer] Active Fixation Steroid Eluting Latex Free Sterile Right Atrium Ventricle Ultipace 58cm [id number] - [id number] - [id number] Implanted:Qty: 1 on 01/08/2025 by Ty Lamb MD at [facility] Lead Left: Chest [employer] [id number] 09/01/2027 [id number] / [id number] / [employer] Active Fixation Steroid Eluting Latex Free Sterile Right Atrium Ventricle Ultipace 52cm [id number]/52 - [id number] - [id number] Implanted:Qty: 1 on 01/08/2025 by Ty Lamb MD at [facility] Lead Left: Chest [employer] [id number] 10/31/2027 [id number]/52 / [id number] / [employer] Assurity Mri [id number] 2 Chamber Is-1 Connector Thk6mm Pacemaker [id number] - [id number] - [id number] Implanted:Qty: 1 on 01/08/2025 by Ty Lamb MD at [facility] Pacemaker Left: Chest [employer] [id number] 06/01/2026 [id number] / [id number] / [employer]ah Ams 700 Kit Accessory Penile Prosthesis [id number] - [id number] Implanted:Qty: 1 on 06/18/2024 by Jose David Betancourt MD at [facility] N/A: Groin [employer]ah [id number] 04/08/2029 [id number] / / [id number] [employer] Ams Spectra 12/14mm .5cm Cylinder Concealable Malleable Rear Tip [id number] - [id number] Implanted:Qty: 1 on 06/18/2024 by Jose David Betancourt MD at [facility] N/A: Penis [employer] [id number] 02/15/2029 [id number] / / [id number] [employer] Ams 700 Preconnect 1 Ms Pump 2 Cylinder Penoscrotal Prosthesis [id number] - [id number] Implanted:Qty: 1 on 06/18/2024 by Jose David Betancourt MD at [facility] N/A: Penis [employer]ah [id number] 10/13/2025 [id number] / / [id number] [employer] Conceal Low Profile [place] 100ml Prosthesis Inhibizone Sterile Latex Free 486935-82 - [id number] Implanted:Qty: 1 on 06/18/2024 by Jose David Betancourt MD at [facility] Left: Pelvis [employer]ah [id number] 04/22/2026 [id number] / / [id number] Procedures Procedure Name Priority Date/Time Associated Diagnosis Comments VITAMIN B12 Routine 03/26/2025 6:55 AM CDT Memory loss FOLATE Routine 03/26/2025 6:55 AM CDT Memory loss HIV 1/2 ANTIBODY PLUS P24 ANTIGEN Routine 03/26/2025 6:55 AM CDT Memory loss RPR Routine 03/26/2025 6:55 AM CDT Memory loss POCT GLUCOSE DEVICE Routine 01/11/2025 1 :21 [...] PM CDT POCT GLUCOSE DEVICE Routine 01/10/2025 1 2:05 PM CDT POCT GLUCOSE DEVICE Routine 01/10/2025 [...] PM CDT POCT GLUCOSE DEVICE Routine 01/09/2025 1 2:59 PM CDT POCT GLUCOSE DEVICE Routine 01/09/2025 [...] Heart block POCT GLUCOSE DEVICE Routine 01/08/2025 1 1:56 AM CDT INFECTION PREVENTION MRSA ONLY (STAPHYLOCOCCUS [...] AM CDT POCT GLUCOSE DEVICE Routine 01/08/2025 1 2:26 AM CDT CBC WITHOUT DIFFERENTIAL Routine 01/08/2025 [...] METABOLIC PANEL STAT 01/07/2025 4:45 PM CDT DC ARTL CATHJ/CANNULJ MNTR/TRANSFUSION SPX PRQ Routine 01/07/2025 3:[address] CHEST W CONTRAST ED Urgent/IP Urgent 01/07/2025 2:45 PM CDT TRANSTHORACIC ECHO (TTE) COMPLETE W DOPPLER/CF WO CONTRAST STAT 01/07/2025 2:30 PM CDT ECG 12-LEAD Routine 01/07/2025 2:15 PM CDT XR CHEST 1 VIEW ED Urgent/IP Urgent 01/07/2025 1:23 PM CDT POCT GLUCOSE DEVICE Routine 01/07/2025 1 2:53 PM CDT TROPONIN T HIGH-SENSITIVITY 2-HOUR Timed 01/07/2025 10:28 AM CDT DC CRITICAL CARE ILL/INJURED PATIENT INIT 30-74 MIN Routine 01/07/2025 10:27 AM CDT POCT GLUCOSE DEVICE Routine 01/07/2025 1 0:12 AM CDT TRANSTHORACIC ECHO (TTE) LIMITED/FOLLOW UP [...] CDT S/P CABG (coronary artery bypass graft) HEMOGLOBIN A1C Routine 12/18/2024 5:56 AM CDT LIPID PANEL Routine 04/01/2024 11:09 AM CDT Type 2 diabetes mellitus with hyperglycemia, with long-term current use of insulin (HCC) ALBUMIN CREATININE RATIO, URINE Routine 04/01/2024 11:09 AM CDT Type 2 diabetes mellitus with hyperglycemia, with long-term current use of insulin (HCC) from Last 3 Months or Most Recently Relevant to Health Maintenance Results * HIV 1/2 Antibody plus p24 Antigen Blood (03/26/2025 6:55 AM CDT) HIV 1/2 ab + p24 ag Nonreactive Nonreactive Comment: Nonreactive for HIV-1 antigen and HIV-1/HIV-2 antibodies. No laboratory evidence of HIV infection. If acute HIV infection is suspected, consider testing for HIV-1 RNA. Testing performed by: [address] [address] Blood 03/26/2025 6:55 AM CDT 03/26/2025 9:20 AM CDT Juany Teague MD LAB MICROBIOLOGY - GEN ERAL ORDERABLES Final Result JEFF IGLESIAS ([place]) 1 [facility] [employer] [place] [address] * RPR Blood (03/26/2025 6:55 AM CDT) Pathologist [facility] RPR Nonreactive Nonreactive Comment:Testing performed by : [facility], [address] [place] [address]., [address] Blood 03/26/2025 6:55 AM CDT 03/26/2025 9:20 AM CDT Juany Teague MD LAB MICROBIOLOGY - GEN ERAL ORDERABLES Final Result JEFF IGLESIAS ([place]) 1 [facility] [employer] [place] [address] * Folate (03/26/2025 6:55 AM CDT) [facility] Folic acid 14.5 >=5.0 ng/mL JEFF [facility] ([place]) Blood 03/26/2025 6:55 AM CDT 03/26/2025 7:10 AM CDT Juany Teague MD LAB BLOOD ORDERABLES F inal Result Performing Organization Address City/[facility]/ZIP Co de Phone Number JEFF IGLESIAS ([place]) 1 [facility] [place] [address] * Vitamin B12 (03/26/2025 6:55 AM CDT) [facility] Vitamin B12 634 230 - 1,250 pg/mL JEFF [facility] ([place]) Blood 03/26/2025 6:55 AM CDT 03/26/2025 7:10 AM CDT Juany Teague MD LAB BLOOD ORDERABLES F inal Result Performing Organization Address [facility] Co de Phone Number JEFF IGLESIAS ([place]) 1 [place] [address] * (ABNORMAL) POCT glucose (01/11/2025 1:21 PM CDT) [facility] Glucose, POC 220(H) 70 - 199 mg/dL POC Performer [id number] JEFF Blood 01/11/2025 1:21 PM CDT 01/11/2025 1:21 PM CDT Génesis Delatorre MD LAB POCT ORDERABLES - DEVICE Final Result Performing Organization Address City/[facility] Co de Phone Number SAMANTHAROGER DAVIE [address] Department [place] [address] * eGFR (01/11/2025 1:00 PM CDT) [facility] eGFR >90 >=60 mL/min/1. 73 m2 Comment: [...] CDT 01/11/2025 1:00 PM CDT Jose Vega POWER DISTRIBUTOR LAB BLOOD ORDERABLES Final Result [facility] [address] Department [place] [address] * (ABNORMAL) Renal function panel (01/11/2025 1:00 PM CDT) Sodium 141 135 - 145 mmol/L Potassium, pl 3.8 3.3 - 4.9 mmol/L [facility] Chloride 100 97 - 110 mmol/L [facility] CO2 27 22 - 32 mmol/L [facility] Anion gap 14 2 - 15 mmol/L [facility] BUN 16 6 - 25 mg/dL [facility] Creatinine 0.67(L) 0.80 - 1.30 mg/dL [facility] Glucose 198 70 - 199 mg/dL [facility] Comment: Interpretive Data Fasting glucose >/= [...] 2022. Calcium 9.3 8.5 - 10.3 mg/dL [facility] Phosphorus, pl 2.8 2.3 - 4.5 mg/dL [facility] Albumin 3.6 3.5 - 5.0 g/dL [facility] Blood 01/11/2025 1:00 PM CDT 01/11/2025 1:00 PM CDT us Jose Vega NP LAB BLOOD ORDERABLES Final Result [facility] [address] Department [place] [address] * eGFR (01/11/2025 9:11 AM CDT) eGFR [...] AM CDT 01/11/2025 1:02 PM CDT us Ty Lamb MD LAB BLOOD ORDERABLES Final R esult Performing Organization Address City/[facility]/ZIP Co de Phone Number JEFF BRODERICK [address] Department [place] [address] * (ABNORMAL) CBC without differential [...] BLOOD ORDERABLES Final Result Performing Organization Address City/[facility] Co de Phone Number JEFF BRODERICK [address] Department of [employer] [place], [place] [id number] * (ABNORMAL) CBC without differential (01/11/2025 9:11 AM CDT) WBC 8.77 3.80 - 9.90 K/cumm Hgb 11.0(L) 13.0 - 17.5 g/dL [facility] CH Hct 36.3(L) 38.9 - 50.3 % [facility] CH Plt 258 150 - 400 K/cumm [facility] MPV 9.0(L) 9.1 - 12.3 fL [facility] CH RBC 4.17(L) 4.30 - 5.80 M/cumm [facility] MCV 87.1 81.3 - 96.4 fL [facility] MCH 26.4(L) 27.1 - 33.3 pg [facility] MCHC 30.3(L) 32.3 - 35.7 g/dL [facility] RDW CV 13.8 11.1 - 14.9 % [facility] RDW SD 44.1 35.7 - 48.1 fL [facility] NRBC abs 0.00 0.00 - 0.01 K/cumm [facility] Blood 01/11/2025 9:11 AM CDT 01/11/2025 1:02 PM CDT us Ty Lamb MD LAB BLOOD ORDERABLES Final R esult [facility] [address] Department [place] [address] * (ABNORMAL) Renal function panel (01/11/2025 9:11 AM CDT) Sodium 138 135 - 145 mmol/L Potassium, pl 3.7 3.3 - 4.9 mmol/L [facility] Chloride 98 97 - 110 mmol/L [facility] CO2 29 22 - 32 mmol/L [facility] Anion gap 11 2 - 15 mmol/L [facility] BUN 16 6 - 25 mg/dL [facility] Creatinine 0.67(L) 0.80 - 1.30 mg/dL [facility] Glucose 198 70 - 199 mg/dL [facility] Comment: Interpretive Data Fasting glucose >/= [...] CH Albumin 3.7 3.5 - 5.0 g/dL [facility] Blood 01/11/2025 9:11 AM CDT 01/11/2025 1:02 PM CDT Ty Lamb MD LAB BLOOD ORDERABLES Final R esult Performing Organization Address City/[facility]/ZIP Co de Phone Number JEFF BRODERICK [address] Department of [employer] [place], [place] [id number] * POCT glucose (01/11/2025 8:12 AM CDT) Pathologist [facility] Glucose, POC 189 70 - 199 mg/dL POC Performer [id number] [facility] Blood 01/11/2025 8:12 AM CDT 01/11/2025 8:12 AM CDT Génesis Delatorre MD LAB POCT ORDERABLES - DEVICE Final Result Performing Organization Address [facility] Co de Phone Number SAMANTHAROGER BRODERICK [address] [employer] [place] [address] * (ABNORMAL) POCT glucose (01/10/2025 9:34 PM CDT) [facility] Glucose, POC 250(H) 70 - 199 mg/dL POC Performer [id number] [facility] Blood 01/10/2025 9:34 PM CDT 01/10/2025 9:34 PM CDT Génesis Delatorre MD LAB POCT ORDERABLES - DEVICE Final Result Performing Organization Address City/[facility] Co de Phone Number JEFF BRODERICK [address] [place] [address] * TRANSTHORACIC ECHO (TTE) LIMITED/FOLLOW UP W LTD DOPPLER/CF WO CONTRAST (01/10/2025 6:28 PM CDT) EF Mod BP 60 % CONS SCIMAGE Anatomical Region Laterality Modality Ultrasound 01/10/2025 5:28 PM CDT Narrative 01/10/2025 5:59 [place] [address] Limited Echocardiogram Report Patient Name: SHAWN SHULTZ B : 1950 Study Date: 01/10/2025 5:28:40 PM Gender: M Tech: CT Location: [id number] Ref Provider: KRISTAL EDWARD Height(Cm): 168 BSA: [...] Procedure Note Jose Godoy MD - 01/10/2025 [place] [address] Limited Echocardiogram Report Patient Name: SHAWN SHULTZ B : 1950 Study Date: 01/10/2025 5:28:40 PM Gender: M Tech: CT Location: [place] [address] Ref Provider: KRISTAL EDWARD Height(Cm): 168 BSA: [...] 246(H) 70 - 199 mg/dL POC Performer [id number] [facility] Blood 01/10/2025 4:49 PM CDT 01/10/2025 4:49 PM CDT Génesis Delatorre MD LAB POCT ORDERABLES - DEVICE Final Result Performing Organization Address City/[facility]/ZIP Co de Phone Number JEFF [address] Department [place] [address] * Type and screen (01/10/2025 12:49 PM CDT) ABO Rh A Negative Antonio, indirect Negative [facility] Blood 01/10/2025 12:4 9 PM CDT 01/10/2025 12:53 PM CDT Narrative [facility] - 01/10/2025 1:41 PM CDT Has the patient had Daratumumab or Isatuximab in the past 6 months?->Unknown Ty Lamb MD LAB BLOOD BANK TEST ORDERABL ES Final Result Performing Organization Address City/[facility]/ZIP Co de Phone Number JEFF BRODERICK [address] [facility] [place] [address] * (ABNORMAL) POCT glucose (01/10/2025 12:05 PM CDT) Glucose, POC 208(H) 70 - 199 mg/dL POC Performer [id number] [facility] Blood 01/10/2025 12:0 5 PM CDT 01/10/2025 12:05 PM CDT Génesis Delatorre MD LAB POCT ORDERABLES - DEVICE Final Result Performing Organization Address [facility] Co de Phone Number JEFF BRODERICK [address] [place] [address] * POCT glucose (01/10/2025 8:05 AM CDT) Glucose, POC 194 70 - 199 mg/dL POC Performer [id number] [facility] Blood 01/10/2025 8:05 AM CDT 01/10/2025 8:05 AM CDT Génesis Delatorre MD LAB POCT ORDERABLES - DEVICE Final Result Performing Organization Address [facility] Co de Phone Number JEFF BRODERICK [address] [facility] [employer] [place] [id number] * Calcium, ionized, whole blood (01/10/2025 7:43 AM CDT) Ca, ionized, bld 4.63 4.50 - 5.10 mg/dL Blood 01/10/2025 7:43 AM CDT 01/10/2025 7:53 AM CDT Ty Lamb MD LAB BLOOD ORDERABLES Final R esult Performing Organization Address City/[facility] Co de Phone Number JEFF BRODERICK [address] [place] [address] * eGFR (01/10/2025 7:43 AM CDT) eGFR [...] CDT 01/10/2025 7:55 AM CDT us Fran Garcia NP LAB BLOOD ORDERABLES Fin al Result JEFF [address] Department [place] [address] * (ABNORMAL) CBC without differential (01/10/2025 7:43 AM CDT) WBC 8.90 3.80 - 9.90 K/cumm Hgb 9.9(L) 13.0 - 17.5 g/dL [facility] Hct 32.4(L) 38.9 - 50.3 % [facility] Plt 232 150 - 400 K/cumm [facility] MPV 8.7(L) 9.1 - 12.3 fL [facility] RBC 3.78(L) 4.30 - 5.80 M/cumm [facility] MCV 85.7 81.3 - 96.4 fL [facility] MCH 26.2(L) 27.1 - 33.3 pg [facility] MCHC 30.6(L) 32.3 - 35.7 g/dL [facility] RDW CV 13.6 11.1 - 14.9 % [facility] CH RDW SD 42.4 35.7 - 48.1 fL [facility] NRBC abs 0.00 0.00 - 0.01 K/cumm [facility] Blood 01/10/2025 7:43 AM CDT 01/10/2025 7:55 AM CDT Ty Lamb MD LAB BLOOD ORDERABLES Final R esult JEFF BRODERICK [address] [employer] [place], [place] [id number] * Magnesium (01/10/2025 7:43 AM CDT) Magnesium 1.9 1.4 - 2.5 mg/dL Blood 01/10/2025 7:43 AM CDT 01/10/2025 7:55 AM CDT Ty Lamb MD LAB BLOOD ORDERABLES Final R esult Performing Organization Address City/[facility] Co de Phone Number EJFF BRODERICK [address] [employer] [place], [place] [id number] * (ABNORMAL) Renal function panel (01/10/2025 7:43 AM CDT) Sodium 136 135 - 145 mmol/L Potassium, pl 4.1 3.3 - 4.9 mmol/L [facility] Chloride 102 97 - 110 mmol/L [facility] CO2 26 22 - 32 mmol/L [facility] Anion gap 8 2 - 15 mmol/L [facility] BUN 14 6 - 25 mg/dL [facility] Creatinine 0.67(L) 0.80 - 1.30 mg/dL [facility] Glucose 186 70 - 199 mg/dL [facility] Comment: Interpretive Data Fasting glucose >/= [...] 2022. Calcium 8.9 8.5 - 10.3 mg/dL [facility] Phosphorus, pl 2.3 2.3 - 4.5 mg/dL [facility] Albumin 3.3(L) 3.5 - 5.0 g/dL [facility] Blood 01/10/2025 7:43 AM CDT 01/10/2025 7:55 AM CDT us Ty Lamb MD LAB BLOOD ORDERABLES Final R esult [facility] [address] Department [place] [address] * XR Chest 1 View (01/10/2025 6:05 [...] clear. Procedure Note Shanice Morocho MD - 05/11/2025 Examination: XR CHEST 1 VIEW Date: 01/10/2025 [...] disease. Electronically signed by: Shanice Morocho M.D. Ty Lamb MD IMG XR PROCEDURES Final Resu lt * (ABNORMAL) POCT glucose (01/09/2025 9:09 PM CDT) Glucose, POC 239(H) 70 - 199 mg/dL POC Performer [id number] [facility] Blood 01/09/2025 9:09 PM CDT 01/09/2025 9:09 PM CDT Génesis Delatorre MD LAB POCT ORDERABLES - DEVICE Final Result Performing Organization Address [facility] Co de Phone Number JEFF BRODERICK [address] [employer] [place] [address] * (ABNORMAL) POCT glucose (01/09/2025 5:32 PM CDT) Glucose, POC 254(H) 70 - 199 mg/dL POC Performer [id number] [facility] Blood 01/09/2025 5:32 PM CDT 01/09/2025 5:32 PM CDT Génesis Delatorre MD LAB POCT ORDERABLES - DEVICE Final Result Performing Organization Address City/[facility] Co de Phone Number JEFF BRODERICK [address] [place] [address] * (ABNORMAL) POCT glucose (01/09/2025 12:59 PM CDT) Glucose, POC 226(H) 70 - 199 mg/dL POC Performer [id number] [facility] Blood 01/09/2025 12:5 9 PM CDT 01/09/2025 12:59 PM CDT Génesis Delatorre MD LAB POCT ORDERABLES - DEVICE Final Result Performing Organization Address City/[facility]/ZIP Co de Phone Number JEFF BRODERICK [address] [place] [address] * POCT glucose (01/09/2025 7:47 AM CDT) Glucose, POC 191 70 - 199 mg/dL POC Performer [id number] [facility] Blood 01/09/2025 7:47 AM CDT 01/09/2025 7:47 AM CDT Génesis Delatorre MD LAB POCT ORDERABLES - DEVICE Final Result Performing Organization Address [facility] Co de Phone Number SAMANTHAROGER BRODERICK [address] Department [employer] [place] [address] * Calcium, ionized, whole blood (01/09/2025 6:20 AM CDT) Ca, ionized, bld 4.52 4.50 - 5.10 mg/dL Blood 01/09/2025 6:20 AM CDT 01/09/2025 7:08 AM CDT Ty Lamb MD LAB BLOOD ORDERABLES Final R esult Performing Organization Address City/[facility] Co de Phone Number JEFF BRODERICK [address] [facility] [place] [address] * eGFR (01/09/2025 6:20 AM CDT) eGFR [...] 6:20 AM CDT 01/09/2025 7:11 AM CDT Farn Garcia NP LAB BLOOD ORDERABLES Fin al Result [facility] [address] Department [place] [address] * (ABNORMAL) CBC without differential (01/09/2025 6:20 AM CDT) WBC 10.74(H) 3.80 - 9.90 K/cumm Hgb 9.7(L) 13.0 - 17.5 g/dL [facility] Hct 32.0(L) 38.9 - 50.3 % [facility] Plt 279 150 - 400 K/cumm [facility] MPV 8.8(L) 9.1 - 12.3 fL [facility] RBC 3.70(L) 4.30 - 5.80 M/cumm [facility] MCV 86.5 81.3 - 96.4 fL [facility] MCH 26.2(L) 27.1 - 33.3 pg [facility] MCHC 30.3(L) 32.3 - 35.7 g/dL [facility] RDW CV 13.4 11.1 - 14.9 % [facility] RDW SD 42.2 35.7 - 48.1 fL [facility] NRBC abs 0.00 0.00 - 0.01 K/cumm [facility] Blood 01/09/2025 6:20 AM CDT 01/09/2025 7:11 AM CDT Ty Lamb MD LAB BLOOD ORDERABLES Final R esult Performing Organization Address City/[facility] Co de Phone Number JEFF [address] [employer] [place] [address] * Magnesium (01/09/2025 6:20 AM CDT) Pathologist [facility] Magnesium 1.9 1.4 - 2.5 mg/dL Blood 01/09/2025 6:20 AM CDT 01/09/2025 7:11 AM CDT Ty Lamb MD LAB BLOOD ORDERABLES Final R esult Performing Organization Address [facility] de Phone Number [facility] [address] [place] [address] * (ABNORMAL) Renal function panel (01/09/2025 6:20 AM CDT) Sodium 135 135 - 145 mmol/L Potassium, pl 3.9 3.3 - 4.9 mmol/L [facility] Chloride 101 97 - 110 mmol/L [facility] CO2 24 22 - 32 mmol/L [facility] Anion gap 10 2 - 15 mmol/L [facility] BUN 17 6 - 25 mg/dL [facility] Creatinine 0.75(L) 0.80 - 1.30 mg/dL [facility] Glucose 195 70 - 199 mg/dL [facility] Comment: Interpretive Data Fasting glucose >/= [...] Calcium 8.5 8.5 - 10.3 mg/dL [facility] Phosphorus, pl 2.7 2.3 - 4.5 mg/dL [facility] Albumin 3.3(L) 3.5 - 5.0 g/dL [facility] Blood 01/09/2025 6:20 AM CDT 01/09/2025 7:11 AM CDT us Ty Lamb MD LAB BLOOD ORDERABLES Final R esult JEFF [address] Department [place] [address] * XR Chest 1 View (01/09/2025 6:15 [...] pneumothorax. Electronically signed by: Zenon Wing M.D. Ty Lamb MD IMG XR PROCEDURES Final Resu lt * POCT glucose (01/08/2025 8:21 PM CDT) Glucose, POC 161 70 - 199 mg/dL POC Performer [id number] JEFF BRODERICK Blood 01/08/2025 8:21 PM CDT 01/08/2025 8:21 PM CDT Génesis Delatorre MD LAB POCT ORDERABLES - DEVICE Final Result JEFF [address] Department [place] [address] * XR Chest 1 Vw Portable (01/08/2025 [...] pneumothorax. Electronically signed by: Zenon Wing M.D. Ty Lamb MD IMG XR PROCEDURES Final Resu lt * FL Fluoroscopy < 1 Hour (01/08/2025 5:18 PM CDT) Narrative RAD_PACS_[facility] - 01/08/2025 5:20 PM CDT The images from this study are not interpreted by Radiology. Please refer to the physician's procedure / OR operative note. Ty Lamb MD IMG FLUOROSCOPY PROCEDURES F inal Result Performing Organization Address [facility] Co de Phone Number RAD_PACS_ * (ABNORMAL) POCT glucose (01/08/2025 11:56 AM CDT) Glucose, POC 222(H) 70 - 199 mg/dL POC Performer [id number] JEFF Blood 01/08/2025 11:5 6 AM CDT 01/08/2025 11:56 AM CDT Ty Lamb MD LAB POCT ORDERABLES - DEVICE Final Result Performing Organization Address [facility] Co de Phone Number [facility] [address] Department [place] [address] * Infection Prevention MRSA Only (Staphylococcus aureus) PCR Nasal (01/08/2025 8:06 AM CDT) PCR Scrn, Methicillin resistant Staphylococcus aureus (MRSA) Not Detected Not Detected [facility] Comment: Interpretive Data Testing performed using Nucleic Acid Amplification with the [employer] Xpert MRSA NxG Assay. This assay detects target DNA from mecA, mecC and the SCCmec insertion site of Staphylococcus aureus using Real-Time PCR and has been cleared by the FDA. Performance characteristics have been verified by the [facility]. Current Interpretive Data was last revised on 2023 Nasal 01/08/2025 8:06 AM CDT 01/08/2025 8:11 AM CDT Ty Lamb MD LAB MICROBIOLOGY - GENERAL O RDERABLES Final Result Performing Organization Address [facility] de Phone Number JEFF [address] Department [place] [address] * (ABNORMAL) POCT glucose (01/08/2025 8:03 AM CDT) Glucose, POC 237(H) 70 - 199 mg/dL POC Performer [id number] JEFF Blood 01/08/2025 8:03 AM CDT 01/08/2025 8:03 AM CDT Génesis Delatorre MD LAB POCT ORDERABLES - DEVICE Final Result Performing Organization Address [facility] de Phone Number JEFF BRODERICK [address] [place] [address] * Critical Care (01/08/2025 7:02 AM CDT) [...] plan with the ICU team and other medical/proposal consultant staff, making frequent assessments and decisions [...] failure. Electronically signed by: Zenon Wing M.D. Ty Lamb MD IMG XR PROCEDURES Final Resu lt * POCT glucose (01/08/2025 5:06 AM CDT) Glucose, POC 163 70 - 199 mg/dL POC Performer [id number] JEFF Blood 01/08/2025 5:06 AM CDT 01/08/2025 5:06 AM CDT Ty Lamb MD LAB POCT ORDERABLES - DEVICE Final Result Performing Organization Address [facility] Co de Phone Number JEFF [address] [address] [employer] [place] [address] * eGFR (01/08/2025 12:33 AM [...] CDT 01/08/2025 12:33 AM CDT us Fran Garcia POWER DISTRIBUTOR LAB BLOOD ORDERABLES Fin al Result Performing Organization Address City/[facility]/ZIP Co de Phone Number JEFF BRODERICK [address] [address] [employer] [place] [address] * Magnesium (01/08/2025 12:33 AM CDT) Magnesium 1.9 1.4 - 2.5 mg/dL Blood 01/08/2025 12:3 3 AM CDT 01/08/2025 12:33 AM CDT us Ty Lamb MD LAB BLOOD ORDERABLES Final R esult Performing Organization Address City/[facility]/ZIP Co de Phone Number JEFF BRODERICK [address] [place] [address] * (ABNORMAL) Renal function panel (01/08/2025 12:33 AM CDT) Sodium 136 135 - 145 mmol/L Potassium, pl 4.0 3.3 - 4.9 mmol/L [facility] Chloride 103 97 - 110 mmol/L [facility] CO2 24 22 - 32 mmol/L [facility] Anion gap 9 2 - 15 mmol/L [facility] BUN 14 6 - 25 mg/dL [facility] Creatinine 0.71(L) 0.80 - 1.30 mg/dL [facility] Glucose 212(H) 70 - 199 mg/dL [facility] Comment: Interpretive Data Fasting glucose >/= [...] [facility] Albumin 3.4(L) 3.5 - 5.0 g/dL [facility] Blood 01/08/2025 12:3 3 AM CDT 01/08/2025 12:33 AM CDT us Ty Lamb MD LAB BLOOD ORDERABLES Final R esult Performing Organization Address City/[facility]/ZIP Co de Phone Number JEFF BRODERICK [address] [address] * (ABNORMAL) POCT glucose (01/08/2025 12:26 AM CDT) Glucose, POC 232(H) 70 - 199 mg/dL POC Performer [id number] JEFF Blood 01/08/2025 12:2 6 AM CDT 01/08/2025 12:26 AM CDT Génesis Delatorre MD LAB POCT ORDERABLES - DEVICE Final Result Performing Organization Address [facility] de Phone Number [facility] [address] Department [place] [address] * (ABNORMAL) Troponin T high-sensitivity (01/08/2025 12:20 AM CDT) Trop T hs 72(H) <=22 ng/L Comment: Interpretive Data For further hscTnT resources including the diagnostic algorithm and an aid in interpretation, copy and paste this link: https://nrl.testcatalog.org/show/hsTrop Current Interpretive Data last revised 2020. Blood 01/08/2025 12:2 0 AM CDT 01/08/2025 12:34 AM CDT Fran Garcia POWER DISTRIBUTOR LAB BLOOD ORDERABLES Fin al Result Performing Organization Address [facility] de Phone Number [facility] [address] [address] Department [place] [address] * Calcium, ionized, whole blood (01/08/2025 12:20 AM CDT) Pathologist [facility] Ca, ionized, bld 4.73 4.50 - 5.10 mg/dL Blood 01/08/2025 12:2 0 AM CDT 01/08/2025 12:35 AM CDT Ty Lamb MD LAB BLOOD ORDERABLES Final R esult JEFF BRODERICK [address] [place] [address] * (ABNORMAL) CBC without differential (01/08/2025 12:20 AM CDT) WBC 10.30(H) 3.80 - 9.90 K/cumm Hgb 9.8(L) 13.0 - 17.5 g/dL [facility] Hct 31.1(L) 38.9 - 50.3 % [facility] Plt 341 150 - 400 K/cumm [facility] MPV 8.6(L) 9.1 - 12.3 fL [facility] RBC 3.66(L) 4.30 - 5.80 M/cumm [facility] MCV 85.0 81.3 - 96.4 fL [facility] MCH 26.8(L) 27.1 - 33.3 pg [facility] MCHC 31.5(L) 32.3 - 35.7 g/dL [facility] RDW CV 13.3 11.1 - 14.9 % [facility] RDW SD 41.7 35.7 - 48.1 fL [facility] NRBC abs 0.00 0.00 - 0.01 K/cumm [facility] Blood 01/08/2025 12:2 0 AM CDT 01/08/2025 12:39 AM CDT us Ty Lamb MD LAB BLOOD ORDERABLES Final R esult [address]FF [address] [employer] [place] [address] * (ABNORMAL) POCT glucose (01/07/2025 9:55 PM CDT) Glucose, POC 249(H) 70 - 199 mg/dL POC Performer [id number] [facility] Blood 01/07/2025 9:55 PM CDT 01/07/2025 9:55 PM CDT Ty Lamb MD LAB POCT ORDERABLES - DEVICE Final Result Performing Organization Address [facility]/ZIP Co de Phone Number JEFF BRODERICK [address] [address] [place] [address] * Critical Care (01/07/2025 8:43 PM CDT) [...] plan with the patient's team and other medical/proposal consultant staff. This time was in addition to and separate from care provided by other practitioners on this day of service. us Heri Tovar POWER DISTRIBUTOR IN CLINIC/BEDSIDE ORDER BEATRIZ Final Result * (ABNORMAL) POCT glucose (01/07/2025 7:54 PM CDT) Glucose, POC 266(H) 70 - 199 mg/dL POC Performer [id number] [facility] Blood 01/07/2025 7:54 PM CDT 01/07/2025 7:54 PM CDT us Ty Lamb MD LAB POCT ORDERABLES - DEVICE Final Result Performing Organization Address [facility] Co de Phone Number JEFF DAVIE [address] [address] Department [place] [address] * (ABNORMAL) Troponin T high-sensitivity (01/07/2025 6:24 PM CDT) Trop T hs 81(H) <=22 ng/L Comment: Interpretive Data For further hscTnT resources including the diagnostic algorithm and an aid in interpretation, copy and paste this link: https://nrl.testcatalog.org/show/hsTrop Current Interpretive Data last revised 2020. Blood 01/07/2025 6:24 PM CDT 01/07/2025 6:32 PM CDT Fran Garcia POWER DISTRIBUTOR LAB BLOOD ORDERABLES Fin al Result Performing Organization Address [facility] de Phone Number JEFF [address] [address] [facility] [place] [address] * Type and screen (01/07/2025 6:24 PM CDT) Antonio, indirect Negative ABO Rh A Negative [facility] Blood 01/07/2025 6:24 PM CDT 01/07/2025 6:42 PM CDT Narrative [facility] - 01/07/2025 7:44 PM CDT Has the patient had Daratumumab or Isatuximab in the past 6 months?->Unknown Fran Garcia NP LAB BLOOD BANK TEST ORDE RABLES Final Result Performing Organization Address [facility] de Phone Number EJFF [phone] [facility] [place] [address] * Urinalysis reflex to microscopic (01/07/2025 5:32 [...] tendency for uric acid stone formation. Source: [email or web address] Current Interpretive Data was last revised on [...] Reflex conditions for microscopic UA not met. [facility] Urine 01/07/2025 5:32 PM CDT 01/07/2025 5:42 PM CDT Fran Garcia NP LAB URINE ORDERABLES Fin al Result Performing Organization Address [facility] Co de Phone Number [facility] [address] [address] [employer] [place] [address] * Strep pneumoniae antigen, urine Urine (01/07/2025 [...] PM CDT 01/07/2025 8:59 PM CDT Fran Garcia NP LAB MICROBIOLOGY - GENER AL ORDERABLES Final Result Performing Organization Address [facility] Co de Phone Number [facility] [address] [address] [employer] [place] [address] * Legionella antigen Urine (01/07/2025 5:32 PM CDT) [facility] Legionella Ag Negative Negative Comment: Interpretive Data This test detects only Legionella pneumophila serogroup 1 antigen. Current interpretive data was last revised on 2019. Urine 01/07/2025 5:32 PM CDT 01/07/2025 5:42 PM CDT Fran Garcia NP LAB MICROBIOLOGY - GENER AL ORDERABLES Final Result [facility] [address] Department [place] [address] * (ABNORMAL) Respiratory pathogen panel Nasopharyngeal (01/07/2025 5:30 PM CDT) [facility] Influenza A RNA Not Detected Not Detected Influenza B RNA Not Detected Not Detected [facility] RSV RNA Not Detected Not Detected [facility] COVID-19 RNA Not Detected Not Detected [facility] Coronavirus 229E RNA Not Detected Not Detected [facility] Coronavirus HKU1 RNA Not Detected Not Detected [facility] Coronavirus NL63 RNA Not Detected Not Detected [facility] Coronavirus OC43 RNA Not Detected Not Detected [facility] Adenovirus DNA Not Detected Not Detected [facility] Metapneumovirus RNA Detected(A) Not Detected [facility] Rhinovirus/Enterov irus RNA Not Detected Not Detected [facility] Parainfluenza 1 RNA Not Detected Not Detected [facility] Parainfluenza 2 RNA Not Detected Not Detected [facility] Parainfluenza 3 RNA Not Detected Not Detected [facility] Parainfluenza 4 RNA Not Detected Not Detected [facility] B. pertussis DNA Not Detected Not Detected [facility] B. parapertussis DNA Not Detected Not Detected [facility] C. pneumoniae DNA Not Detected Not Detected [facility] M. pneumoniae DNA Not Detected Not Detected [facility] Comment: Interpretive Data The [employer] FilmArray Respiratory Panel (RP2.1) assay is a [...] assay has FDA clearance for testing of POWER DISTRIBUTOR swabs. The performance characteristics of this assay have been determined by [facility]. Current interpretive data was last revised on 2021. Nasopharyngeal 01/07/2025 5: 30 PM CDT 01/07/2025 6:35 PM CDT Shanice Pacheco 01/07/2025 8:39 PM CDT Is the Patient experiencing symptoms consistent with COVID?->Unknown Surveillance testing for transplant patient?->No Fran Garcia POWER DISTRIBUTOR LAB MICROBIOLOGY - GENER AL ORDERABLES Final Result JEFF BRODERICK [address] [place] [address] [facility] * Critical Care (01/07/2025 4:59 PM CDT) Narrative Sindhu Whittington MD - 01/07/2025 4:59 PM CDT Sindhu Whittington MD 01/08/2025 6:17 PM Critical Care Performed by: Fran Garcia NP Authorized by: Fran Garcia NP CRITICAL CARE: Team: JULI Shift: AM [...] plan with the ICU team and other medical/proposal consultant staff, making frequent assessments and decisions [...] documenting in the medical record us Fran Garcia POWER DISTRIBUTOR IN CLINIC/BEDSIDE ORDERA BLES Final Result * (ABNORMAL) Troponin T high-sensitivity (01/07/2025 4:45 PM CDT) Trop T hs 79(H) <=22 ng/L Comment: Interpretive Data For further hscTnT resources including the diagnostic algorithm and an aid in interpretation, copy and paste this link: https://nrl.testcatalog.org/show/hsTrop Current Interpretive Data last revised 2020. Blood 01/07/2025 4:45 PM CDT 01/07/2025 5:10 PM CDT us Fran Garcia POWER DISTRIBUTOR LAB BLOOD ORDERABLES Fin al Result Performing Organization Address [facility]/State/ZIP Co de Phone Number JEFF [address] [address] [facility] [place] [address] * Sepsis Lactate w/ Reflex (01/07/2025 4:45 PM CDT) Sepsis Lactate 1.9 0.7 - 2.0 mmol/L Blood 01/07/2025 4:45 PM CDT 01/07/2025 5:10 PM CDT Sindhu Whittington MD LAB BLOOD ORDERABLES Iris l Result Performing Organization Address [facility] Co de Phone Number JEFF [address] [address] [facility] [employer] [place], [place] [id number] * Lactate (01/07/2025 4:45 PM CDT) Pathologist [facility] Lactate 1.9 0.7 - 2.0 mmol/L Blood 01/07/2025 4:45 PM CDT 01/07/2025 5:10 PM CDT Fran Garcia POWER DISTRIBUTOR LAB BLOOD ORDERABLES Fin al Result Performing Organization Address [facility] Co de Phone Number JEFF [address] [address] [facility] [employer] [place], [place] [id number] * Calcium, ionized, whole blood (01/07/2025 4:45 PM CDT) Pathologist [facility] Ca, ionized, bld 4.62 4.50 - 5.10 mg/dL Blood 01/07/2025 4:45 PM CDT 01/07/2025 5:10 PM CDT Fran Garcia POWER DISTRIBUTOR LAB BLOOD ORDERABLES Fin al Result Performing Organization Address [facility] Co de Phone Number JEFF [address] [address] [facility] [place] [address] * eGFR (01/07/2025 4:45 PM CDT) eGFR [...] CDT 01/07/2025 5:10 PM CDT us Fran Garcia NP LAB BLOOD ORDERABLES Fin al Result JEFF [address] Department [place] [address] * (ABNORMAL) Pro B-type natriuretic peptide (01/07/2025 4:45 PM CDT) Pathologist [facility] NT-proBNP 670(H) <=300 pg/mL Comment: Interpretive Comments: [...] PM CDT 01/07/2025 5:10 PM CDT Fran Garcia POWER DISTRIBUTOR LAB BLOOD ORDERABLES Fin al Result Performing Organization Address [facility] [place] [address] [address] [place] [address] * Thyroid Function Borden (01/07/2025 4:45 PM CDT) TSH 0.75 0.30 - 4.20 mcIUnit/mL Blood 01/07/2025 4:45 PM CDT 01/07/2025 5:10 PM CDT Fran Garcia POWER DISTRIBUTOR LAB BLOOD ORDERABLES Fin al Result Performing Organization Address [facility] [place] [address] [address] [employer] [place], [place] [id number] * aPTT (01/07/2025 4:45 PM CDT) aPTT 32 28 - 38 sec Comment: Interpretive Data Heparin therapeutic range: 66.0 - 100.0 seconds. Range based on correlation with therapeutic heparin activity range of 0.3 - 0.7 Units/mL. Current interpretive data was last revised on 2023. Blood 01/07/2025 4:45 PM CDT 01/07/2025 5:10 PM CDT Fran Garcia POWER DISTRIBUTOR LAB BLOOD ORDERABLES Fin al Result JEFF BRODERICK [address] [address] [place] [address] * (ABNORMAL) Protime-INR (01/07/2025 4:45 PM CDT) [...] PM CDT 01/07/2025 5:10 PM CDT Fran Garcia NP LAB BLOOD ORDERABLES Fin al Result Performing Organization Address City/[facility]/ZIP Co de Phone Number JEFF BRODERICK [address] [address] Department [employer] [place] [address] * Fibrinogen (01/07/2025 4:45 PM CDT) Fibrinogen 359 170 - 400 mg/dL Blood 01/07/2025 4:45 PM CDT 01/07/2025 5:10 PM CDT Fran Garcia POWER DISTRIBUTOR LAB BLOOD ORDERABLES Fin al Result JEFF BRODERICK [address] [address] [place] [address] * (ABNORMAL) CBC without differential (01/07/2025 4:45 PM CDT) Pathologist [facility] WBC 9.43 3.80 - 9.90 K/cumm Hgb 9.9(L) 13.0 - 17.5 g/dL [facility] Hct 31.6(L) 38.9 - 50.3 % [facility] Plt 306 150 - 400 K/cumm [facility] MPV 8.7(L) 9.1 - 12.3 fL [facility] RBC 3.72(L) 4.30 - 5.80 M/cumm [facility] CH MCV 84.9 81.3 - 96.4 fL [facility] CH MCH 26.6(L) 27.1 - 33.3 pg [facility] CH MCHC 31.3(L) 32.3 - 35.7 g/dL [facility] CH RDW CV 13.4 11.1 - 14.9 % [facility] RDW SD 41.4 35.7 - 48.1 fL [facility] NRBC abs 0.00 0.00 - 0.01 K/cumm [facility] CH Blood 01/07/2025 4:45 PM CDT 01/07/2025 5:12 PM CDT Fran Garcia POWER DISTRIBUTOR LAB BLOOD ORDERABLES Fin al Result Performing Organization Address [facility] de Phone Number [facility] [address] [address] [facility] [employer] [place], [place] [id number] * Uric acid (01/07/2025 4:45 PM CDT) [facility] Uric acid 4.0 3.0 - 8.0 mg/dL Blood 01/07/2025 4:45 PM CDT 01/07/2025 5:10 PM CDT Fran Garcia POWER DISTRIBUTOR LAB BLOOD ORDERABLES Fin al Result Performing Organization Address [facility] de Phone Number [facility] [address] [address] [facility] [place] [address] * Phosphorus (01/07/2025 4:45 PM CDT) Phosphorus, pl 2.7 2.3 - 4.5 mg/dL Blood 01/07/2025 4:45 PM CDT 01/07/2025 5:10 PM CDT Fran Garcia POWER DISTRIBUTOR LAB BLOOD ORDERABLES Fin al Result Performing Organization Address [facility] Co de Phone Number JEFF BRODERICK [address] [address] [facility] [place] [address] * Magnesium (01/07/2025 4:45 PM CDT) Magnesium 1.7 1.4 - 2.5 mg/dL Blood 01/07/2025 4:45 PM CDT 01/07/2025 5:10 PM CDT Fran Garcia POWER DISTRIBUTOR LAB BLOOD ORDERABLES Fin al Result Performing Organization Address [facility] de Phone Number SAMANTHAROGER BRODERICK [address] [address] [facility] [place] [address] * Blood gas, venous (01/07/2025 4:45 PM CDT) Pathologist [facility] pH, Venous 7.41 7.32 - 7.43 PCO2, [...] PM CDT 01/07/2025 5:10 PM CDT Fran Garcia POWER DISTRIBUTOR LAB BLOOD ORDERABLES Fin al Result Performing Organization Address [facility] Co de Phone Number JEFF DAVIE [address] [address] [facility] [place] [address] * Creatine kinase (CK), total (01/07/2025 4:45 PM CDT) CK 52 40 - 300 Units/L Blood 01/07/2025 4:45 PM CDT 01/07/2025 5:10 PM CDT Fran Garcia POWER DISTRIBUTOR LAB BLOOD ORDERABLES Fin al Result Performing Organization Address City/[facility]/ZIP Co de Phone Number JEFF [address] [address] [facility] [place] [address] * Creatine kinase (CK), total (01/07/2025 4:45 PM CDT) Pathologist [facility] CK 51 40 - 300 Units/L Blood 01/07/2025 4:45 PM CDT 01/07/2025 5:10 PM CDT Fran Garcia POWER DISTRIBUTOR LAB BLOOD ORDERABLES Fin al Result Performing Organization Address [facility] Co de Phone Number JEFF [address] [address] [facility] [place] [address] * Bilirubin, direct (01/07/2025 4:45 PM CDT) [facility] Bilirubin, direct 0.1 0.1 - 0.3 mg/dL Blood 01/07/2025 4:45 PM CDT 01/07/2025 5:10 PM CDT Fran Garcia POWER DISTRIBUTOR LAB BLOOD ORDERABLES Fin al Result Performing Organization Address [facility] Co de Phone Number SAMANTHAROGER [address] [address] [facility] [place] [address] * (ABNORMAL) Comprehensive metabolic panel (01/07/2025 4:45 PM CDT) Pathologist [facility] Sodium 138 135 - 145 mmol/L Potassium, [...] CDT 01/07/2025 5:10 PM CDT us Fran Garcia NP LAB BLOOD ORDERABLES Fin al Result [facility] [address] [address] Department [place] [address] * DC ARTL CATHJ/CANNULJ MNTR/TRANSFUSION SPX PRQ (01/07/2025 3:30 PM CDT) Narrative Fran Garcia NP - 01/07/2025 3:30 PM CDT Fran Garcia NP 01/26/2025 5:55 PM Arterial Line Insertion Date/Time: 01/07/2025 3:30 PM Performed by: Fran Garcia NP Authorized by: Fran Garcia NP [place] Protocol: RN Notified of Procedure: yes Informed [...] my critical care time Unable to place Vandana due to Vasospasm Cardiogenic shock, bradycardia Post Procedure Debrief: All guidewires, needles, sponges or other items are accounted for: yes Fran Garcia NP IV THERAPY ORDERABLES Ed ited Result [...] PM CDT Narrative 01/07/2025 3:24 [place] [address] Echocardiogram Report Patient Name: SHAWN SHULTZ BRI : 1950 Study Date: 01/07/2025 1:26:17 PM Gender: M Tech: JELANI Location: [id number] Ref Provider: FRAN GARCIA Height(Cm): 168 BSA: 2.05 Weight(Kg): 89.8 Heart Rate: 94 BP: 130 / 78 Quality: Good Order Provider: FRAN GARCIA PROCEDURES: Echocardiographic Report: Transthoracic echocardiogram with complete [...] Procedure Note Isidro Carvalho MD - 01/07/2025 [place] [address] Echocardiogram Report Patient Name: SHAWN SHULTZ BRI : 1950 Study Date: 01/07/2025 1:26:17 PM Gender: M Tech: JELANI Location: [id number] [facility] Provider: FRAN GARCIA Height(Cm): 168 BSA: 2.05 Weight(Kg): 89.8 Heart Rate: 94 BP: 130 / 78 Quality: Good Order Provider: FRAN GARCIA PROCEDURES: Echocardiographic Report: Transthoracic echocardiogram with complete [...] Carvalho MD 01/07/2025 3:23:39 PM CDT Fran Garcia NP CV ECHO PROCEDURES Final Result * ECG 12 lead (01/07/2025 2:15 PM CDT) 01/07/2025 2:15 PM CDT Narrative [facility] - 01/07/2025 2:36 PM CDT Vent Rate: 96 bpm RR Interval: 625 msec DC Interval: 234 msec QRS Duration: 101 msec QT Interval: 367 msec QTC Interval: 420 msec P-R-T [place]: 24 - 119 - 97 degrees IMPRESSION: SINUS RHYTHM WITH FIRST DEGREE AV BLOCK INCOMPLETE RIGHT BUNDLE BRANCH BLOCK RIGHT VENTRICULAR HYPERTROPHY NONSPECIFIC ST \T\ T-WAVE ABNORMALITY Electronically Signed By: Washington Díaz MD, [facility] us Fran Garcia NP ECG ORDERABLES Final Re sult [facility] * X-ray chest 1 view (Portable) [...] Electronically signed by: Zenon Wing M.D. Fran Garcia POWER DISTRIBUTOR IMG XR PROCEDURES Final Result * (ABNORMAL) POCT glucose (01/07/2025 12:53 PM CDT) Glucose, POC 212(H) 70 - 199 mg/dL POC Performer [id number] JEFF BRODERICK Blood 01/07/2025 12:5 3 PM CDT 01/07/2025 12:53 PM CDT Génesis Delatorre MD LAB POCT ORDERABLES - DEVICE Final Result EJFF BRODERICK [address] [address] Department [place] [address] * (ABNORMAL) Troponin T high-sensitivity 2-hour (01/07/2025 10:28 AM CDT) Trop T hs 74(H) <=22 ng/L Comment: Michael Mcnulty RN ER Interpretive Data For further hscTnT resources including the diagnostic algorithm and an aid in interpretation, copy and paste this link: https://nrl.testcatalog.org/show/hsTrop Current Interpretive Data last revised 2020. Trop T hs delta 41(C) ng/L [facility] ([place]) Comment:Critical Result call ed by [email or web address] at 2025-01-07 11:19:30. Result Read Back by Michael Mcnulty RN ER Trop T hs interp Significa nt(C) [facility] ([place]) Comment:Critical Result call ed by [email or web address] at 2025-01-07 11:19:30. Result Read Back by Michael Mcnulty RN ER Blood 01/07/2025 10:2 8 AM CDT 01/07/2025 10:33 AM CDT us Jt Zacarias MD LAB BLOOD ORDERABLE S Final Result JEFF HARRIS ([place]) 1 [facility] Department [place] [address] * DC CRITICAL CARE ILL/INJURED PATIENT INIT 30-74 MIN (01/07/2025 10:27 AM CDT) Narrative Jt Zacarias MD - 01/07/2025 10:27 AM CDT Jt Zacarias MD 01/07/2025 10:28 AM Critical Care Performed by: Jt Zacarias MD Authorized by: Jt Zacarias MD Critical care provider statement: As reflected [...] documenting in the medical record. us Jt Zacarias MD IN CLINIC/BEDSIDE O RDERABLES Final Result * (ABNORMAL) POCT glucose (01/07/2025 10:12 AM CDT) Pathologist [facility] Glucose, POC 219(H) 70 - 199 mg/dL Blood 01/07/2025 10:1 2 AM CDT 01/07/2025 10:12 AM CDT Jomar No MD LAB POCT ORDERABLES - NOAH CE Final Result JEFF [facility] [address] [place] [address] * TRANSTHORACIC ECHO (TTE) LIMITED/FOLLOW UP WO DOPPLER/CF WO CONTRAST (01/07/2025 9:32 AM CDT) Pathologist [facility] Estimated EF 65 % CONS SCIMAGE Anatomical Region Laterality Modality Ultrasound 01/07/2025 9:09 AM CDT Narrative 01/07/2025 9:54 AM CDT [address] [address] Limited Echocardiogram Report Patient Name: SHAWN SHULTZ BRI : 1950 Study Date: 01/07/2025 9:09:51 AM Gender: M Tech: AA Location: [facility] Ref Provider: JT ZACARIAS Height(Cm): BSA: Weight(Kg): Quality: Good PROCEDURES: Echocardiographic [...] Procedure Note Jose Godoy MD - 01/07/[address], [place] [address] Limited Echocardiogram Report Patient Name: SHAWN SHULTZ BRI : 1950 Study Date: 01/07/2025 9:09:51 AM Gender: M Tech: AA Location: [facility] Ref Provider: JT ZACARIAS Height(Cm): BSA: Weight(Kg): Quality: Good PROCEDURES: Echocardiographic [...] Godoy MD 01/07/2025 9:54:23 AM CDT Jt Zacarias MD CV ECHO PROCEDURES Final Result * [...] Lyla Salamanca M.D. FT: FT Report ID: [id number] Reading Location: [id number] Procedure Note Lyla Roberson MD - 01/07/2025 [...] Lyla Salamanca M.D. FT: FT Report ID: [id number] Reading Location: [id number] Jt Zacarias MD IMG XR PROCEDURES F inal Result * (ABNORMAL) Sepsis Lactate w/ Reflex (01/07/2025 8:58 AM CDT) Sepsis Lactate 3.9(H) 0.7 - 2.0 mmol/L Blood 01/07/2025 8:58 AM CDT 01/07/2025 9:01 AM CDT Jt Zacarias MD LAB BLOOD ORDERABLE S Final Result Performing Organization Address City/[facility]/ZIP Co de Phone Number JEFF IGLESIAS [place]) 1 [facility] [place] [address] * (ABNORMAL) Troponin T high-sensitivity series (baseline, 2hr, 4hr, 6hr) (01/07/2025 8:40 AM CDT) Trop T hs 33(H) <=22 ng/L Comment: Interpretive Data For further hscTnT resources including the diagnostic algorithm and an aid in interpretation, copy and paste this link: https://nrl.testcatalog.org/show/hsTrop Current Interpretive Data last revised 2020. Blood 01/07/2025 8:40 AM CDT 01/07/2025 8:45 AM CDT us Jt Zacarias MD LAB BLOOD ORDERABLE S Final Result Performing Organization Address City/[facility]/ZIP Co de Phone Number JEFF IGLESIAS ([place]) 1 [facility] [employer] [place] [address] * eGFR (01/07/2025 8:40 AM CDT) eGFR [...] CDT 01/07/2025 8:45 AM CDT us Jt Zacarias MD LAB BLOOD ORDERABLE S Final Result [facility] ([place]) 1 [facility] Department [place] [address] * (ABNORMAL) Differential, auto (01/07/2025 8:40 AM [...] CDT 01/07/2025 8:45 AM CDT us Jt Zacarias MD LAB BLOOD ORDERABLE S Final Result [facility] ([place]) 1 [facility] Department [place] [address] * (ABNORMAL) CBC with auto differential (01/07/2025 [...] RDW CV 13.3 11.1 - 14.9 % [facility] ([place]) RDW SD 41.5 35.7 - 48.1 fL [facility] ([place]) NRBC abs 0.00 0.00 - 0.01 K/cumm [facility] ([place]) Blood 01/07/2025 8:40 AM CDT 01/07/2025 8:45 AM CDT Jt Zacarias MD LAB BLOOD ORDERABLE S Final Result [facility] ([place]) 1 [facility] [place] [address] * Magnesium (01/07/2025 8:40 AM CDT) Pathologist [facility] Magnesium 1.7 1.4 - 2.5 mg/dL Blood 01/07/2025 8:40 AM CDT 01/07/2025 9:44 AM CDT us Jt Zacarias MD LAB BLOOD ORDERABLE S Final Result Performing Organization Address City/[facility]/ZIP Co de Phone Number [facility] ([place]) 1 [facility] [place] [address] * (ABNORMAL) Comprehensive metabolic panel (01/07/2025 8:40 AM CDT) Sodium 138 135 - 145 mmol/L Potassium, pl 3.4 3.3 - 4.9 mmol/L [facility] ([place]) Chloride 102 97 - 110 mmol/L [facility] ([place]) CO2 20(L) 22 - 32 mmol/L [facility] Anion gap 16(H) 2 - 15 mmol/L [facility] ([place] BUN 11 6 - 25 mg/dL [facility] ([place]) Creatinine 0.79(L) 0.80 - 1.30 mg/dL [facility] Glucose 248(H) 70 - 199 mg/dL [facility] ([place]) Comment: Interpretive Data Fasting glucose [...] CDT 01/07/2025 8:45 AM CDT us Jt Zacarias MD LAB BLOOD ORDERABLE S Final Result JEFF [facility] ([place]) 1 [facility] Department [place] [address] * ECG 12 lead (01/07/2025 8:39 AM CDT) 01/07/2025 8:[address] [facility] - 01/07/2025 9:28 AM CDT Vent Rate: 91 bpm RR Interval: 654 msec DC Interval: 238 msec QRS Duration: 111 msec QT Interval: 394 msec QTC Interval: 443 msec P-R-T [place]: 7 - 132 - 71 degrees IMPRESSION: SINUS RHYTHM WITH FIRST DEGREE AV BLOCK INCOMPLETE RIGHT BUNDLE BRANCH BLOCK [90+ ms QRS DURATION, TERMINAL R IN V1/V2, 40+ ms S IN I/aVL/V4/V5/V6] POSSIBLE RIGHT VENTRICULAR HYPERTROPHY [SOME/ALL OF: PROMINENT R IN V1, LATE TRANSITION, RAD, BETO, SSS] ABNORMAL ECG no change from prior EKG Electronically Signed By: Jose Godoy MD us Jt Zacarias MD ECG ORDERABLES Fin al Result [facility] * XR Chest Pa Lateral 2 [...] Meir Ascencio M.D. KT: KT Report ID: [id number] Reading Location: [id number] Procedure Note Meir Ascencio MD - 01/01/2025 [...] Meir Ascencio M.D. KT: KT Report ID: [id number] Reading Location: [place] [address] Nayely Sharp POWER DISTRIBUTOR IMG XR PROCEDURES Fin al Result * [...] by: Vick Cruz M.D. us Jose Vega POWER DISTRIBUTOR IMG XR PROCEDURES Final Res ult * (ABNORMAL) Hemoglobin A1c (12/18/2024 5:56 AM CDT) Hgb A1C 7.4(H) 4.0 - 5.6 % Estimated Average Glucose 166 mg/dL JEFF Comment: The ADA recommends reporting an estimated Average Glucose (eAG) with all Hemoglobin A1c results using the equation derived from a study of 507 normal and diabetic adults. Minority populations were underrepresented and children were not included. (Diabetes Care 31:6938-9996, 2008). The eAG is not equivalent to a fasting glucose. Blood 12/18/2024 5:56 AM CDT 12/18/2024 6:01 AM CDT Jose Vega NP LAB BLOOD ORDERABLES Final Result Performing Organization Address [facility] de Phone Number [facility] [address] [address] [employer] [place] [address] * (ABNORMAL) Albumin Creatinine Ratio, Urine (04/01/2024 [...] ORDERABLES Final Resul t Performing Organization Address [facility] Co de Phone Number [facility] [address] [address] Department [place] [address] * (ABNORMAL) Lipid panel (04/01/2024 11:09 AM [...] Pediatrics 2011;128:S213 2. NCEP Expert Panel. Circulation 2003;110:227 Current Interpretive Data was last revised on [...] LAB BLOOD ORDERABLES Final Resul t JEFF [address] [address] [place] [address] from Last 3 Months or Most Recently Relevant to Health Maintenance Insurance MEDICARE [employer] FOR LIFE [facility] MEDICARE ADVANTAGE FOR LIFE [facility] MEDICARE ADVANTAGE Advance Directives For more information, please contact: [phone] * Full Code (Latest Code Status on File) Date Activated Date Inactivated Comments 01/07/2025 1:12 PM 01/11/2025 11:13 PM * Full Code Date Activated Date Inactivated Comments 12/14/2024 5:54 PM 12/21/2024 8:28 PM * Full Code Date Activated Date Inactivated Comments 06/18/2024 3:52 PM 06/19/2024 10:57 PM * Full Code Date Activated Date Inactivated Comments 02/11/2024 3:49 PM 02/12/2024 6:22 PM Care Teams Benefit Authorizer Relationship Specialty Start Date End Date Maryann Jiménez DO PCP - General Family Medicine 07/03/22 Jose David Betancourt MD [address] [address] Consulting Physician Urology 06/19/24 Ty Lamb MD [address] [address] Surgeon Cardiothoracic Surgery 12/21/24 Jatinder Jones MD [address] [place] [address] Consulting Physician Cardiology 12/21/24 Miscellaneous, Not In File 12/21/24
--- OUTSIDE RECORDS SUMMARY | 2025-03-28 19:56 | XMS_ITS | Encounter Summary ---
Author Organization [facility] Address [address] [facility] [place] [address] Care Team Providers Care Prior Authorization Technician Name Role Phone Syl Mcadams MD Primary Care Provider [phone] Maryann Jiménez DO Primary Care Provider [phone] Reason for Visit * Reason Onset Date Comments MEDICATION REFILL 08/21/2018 Encounter Details Date Type Department Care Team (Late st Contact Info) Description 08/21/2018 Refill [facility] [address] [place] [address] April Mendoza MD [address] [place] [address] MEDICATION REFILL Social History Tobacco Use Types Packs/Day Years Used Date Smoking Tobacco: Passive Smo ke Exposure - Never Smoker Smokeless Tobacco: Never Sex and Gender Information Value Date Recorded Sex Assigned at Not on file 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
--- OUTSIDE RECORDS SUMMARY | 2025-03-28 19:56 | XMS_ITS | Encounter Summary ---
Author Organization [facility] Healthcare Address [address] [place] [address] Care Team Providers Care Pocket Flap Creasing Machine Operator Name Role Phone Maryann Jiménez DO Primary Care Provider + Jose David Betancourt MD Unavailable [phone] Ty Lamb MD Unavailable [phone] Jatinder Jones MD Unavailable [phone] Miscellaneous, Not In File Unavailable Unava ilable Encounter Details Date Type Department Care Team (Late st Contact Info) Description 01/05/2025 [facility] Post Discharge Follow up phone call [place] [id number] [place] [address] Ariella Larsen Social History Tobacco [...] materials from doctor or pharmacy Never 12/23/2024 [facility] Utilities Answer Date Recorded In [...] any clubs o r organizations such as adventist groups, unions, fraternal or athletic groups, or [...] staff should administer the PHQ-9) 0 08/17/2024 [facility] - [...] any time in the past 12 m [facility], were you homeless or living in a longterm (including now)? No 12/17/2024 Personal Safety Answer Date Recorded Have you ever been in or are you currently in a harmful physical or emotional relationship or is someone making you feel afraid or unsafe? 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 Gender Identity Male 01/23/2020 12:25 AM CDT [...] documented as of this encounter Care Teams Pocket Flap Creasing Machine Operator Relationship Specialty Start Date End Date JiménezShantellMaryann DO Missy PCP - General Family Medicine 07/03/22 Jose David Betancourt MD [address] [place] [address] Consulting Physician Urology 06/19/24 Ty Lamb MD [address] [place], [place] [id number] Surgeon Cardiothoracic Surgery 12/21/24 Jatinder Jones MD [address] [place] [address] Consulting Physician Cardiology 12/21/24 Miscellaneous, Not In File 12/21/24 documented as of this encounter
--- OUTSIDE RECORDS SUMMARY | 2025-03-28 19:56 | XMS_ITS | Encounter Summary ---
Author Organization [facility] Healthcare Address [address] [place] [id number] Care Team Providers Care Material Requirements Planning Manager Name Role Phone Maryann Jiménez DO Primary Care Provider + Jose David Betancourt MD Unavailable [phone] Ty Lamb MD Unavailable [phone] Jatinder Jones MD Unavailable [phone] Miscellaneous, Not In File Unavailable Unava ilable Encounter Details Date Type Department Care Team (Late st Contact Info) Description 01/05/2025 [facility] Post Discharge Follow up phone call [id number] [place] [address] Ariella Larsen Social History Tobacco [...] materials from doctor or pharmacy Never 12/23/2024 [facility] Utilities Answer Date Recorded In [...] often do you attend chur ch or rastafarian services? More than 4 times per year 12/17/2024 Do you belong to any clubs o r organizations such as evangelical groups, unions, fraternal or athletic groups, or [...] staff should administer the PHQ-9) 0 08/17/2024 [facility] - [...] any time in the past 12 m [facility], were you homeless or living in a chcf (including now)? No 12/17/2024 Personal Safety Answer Date Recorded Have you ever been in or are you currently in a harmful physical or emotional relationship or is someone making you feel afraid or unsafe? 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 Gender Identity Male 01/23/2020 12:25 AM CDT [...] documented as of this encounter Care Teams Material Requirements Planning Manager Relationship Specialty Start Date End Date JiménezShantellMaryann DO Missy PCP - General Family Medicine 07/03/22 Jose David Betancourt MD [address] [place] [address] Consulting Physician Urology 06/19/24 Ty Lamb MD [address] [place], [place] [id number] Surgeon Cardiothoracic Surgery 12/21/24 Jatinder Jones MD [address] [place] [address] Consulting Physician Cardiology 12/21/24 Miscellaneous, Not In File 12/21/24 documented as of this encounter
--- OUTSIDE RECORDS SUMMARY | 2025-03-28 19:56 | XMS_ITS | Referral Summary ---
Author Organization [facility] Address [address] [place] [address] Care Team Providers Care Stenographic Court Reporter Name Role Phone Maryann Jiménez DO Primary Care Provider + Jose David Betancourt MD Unavailable [phone] Ty Lamb MD Unavailable [phone] Jatinder Jones MD Unavailable [phone] Miscellaneous, Not In File Unavailable Unava ilable Encounters Date Type Department Care Team Description 03/26/2025 6:50 AM CDT Lab [facility] [address] [place] [address] Memory loss; Encounter for medical screening examination 03/25/2025 3:15 PM CDT Office [facility] [address] [facility] [address] [place] [address] Juany Teague MD Memory loss (Primary Dx); Encounter for medical screening examination 02/12/2025 Telephone [facility] Cardiology [address] [facility] [address] [place] [address] Jatinder Jones MD 02/11/2025 Telephone [facility] [address] [place] [address] [facility] [address] [place] [address] Alireza Clark MD Med Refill 01/27/2025 10:30 AM CDT Home Care Visit [facility] Home Health [address] [place] [address] Lori Puckett SN OASIS DISCHARGE 01/26/2025 1:15 PM CDT Office Visit [facility] Surgery [id number] [place] [address] [address] [place] [address] Ty Lamb MD Coronary artery disease (CAD) excluded (Primary Dx) 01/25/2025 [facility] Post Discharge Follow up phone call [address] [address] Ariella Larsen 01/21/2025 10:30 AM CDT Home Care Visit [address] [place] [address] Lori Puckett SN HOME VISIT 01/18/2025 Telephone [facility] [id number] [place] [address] [address] [place] [address] Alireza Clark MD 01/18/2025 9:30 AM CDT Home Care Visit [address] [place] [address] Lori Puckett SN HOME VISIT 01/14/2025 Plan of Care Documentation [address] [place] [address] 01/13/2025 12:30 PM CDT Home Care Visit [address] [place] [address] Kaitlynn Elizalde RN SN OASIS RESUMPTION OF CARE 01/12/2025 Orders Only [facility] Cardiology [address] [facility] [address], [place] [address] Jatinder Jones MD Presence of cardiac pacemaker (Primary Dx); SSS (sick sinus syndrome) (HCC); Bradycardia 01/12/2025 Orders Only [facility] Surgery [address] [place] [address] [address] [place] [address] Jose Vega NP 01/07/2025 1:01 PM CDT - 01/11/2025 7:12 PM CDT Hospital Encounter [facility] [address] [place] [address] NovoseSindhu richards MD Munfakh, Nabil A., MD Brother, Michele, MD Rivera, Samantha, MD Cardiac tamponade (Primary Dx); Cervical myofascial pain syndrome; Syncope and collapse; Frailty syndrome in geriatric patient Discharge Disposition: Discharge to home, home health skilled care 01/08/2025 3:36 PM CDT Anesthesia Event [facility] Operating Room [address] [place] [address] Karen Tavarez DO Vuong, Peter Thuan, MD 01/08/2025 3:20 PM CDT - 01/08/2025 5:20 PM CDT Surgery [facility] Operating Room [address] [place] [address] Ty Lamb MD REPLACE PACEMAKER GENERATOR FROM ABDOMEN WITH FLUOROSCOPY 01/07/2025 Home Care Visit [address] [place] [address] Lori Puckett OASIS TRANSFER W/OUT DC 01/07/2025 12:18 PM CDT - 01/07/2025 11:59 PM CDT Hospital Encounter [facility] Emergency, Room R Discharge Disposition: Discharge to home or self care 01/07/2025 8:15 AM CDT - 01/07/2025 11:59 PM CDT Hospital Encounter [facility] Emergency, Room R Discharge Disposition: Discharge to home or self care 01/07/2025 8:28 AM CDT - 01/07/2025 12:14 PM CDT Emergency [facility] Emergency Department [address] [place] [address] Jt Zacarias MD Lo Bianco, Salvador, MD Cardiac tamponade (Primary Dx); Bradycardia; Heart block Discharge Disposition: Discharge to a short term hospital for IP 01/05/2025 [facility] Post Discharge Follow up phone call [address] [address] Ariella Larsen 01/05/2025 [facility] Post Discharge Follow up phone call [address] [id number] Ariella Larsen 01/05/2025 10:00 AM CDT Home Care Visit [place] [address] [place] [address] Lori Puckett SN HOME VISIT 01/01/2025 Results Follow-Up [facility] at [address] [place] [address] Nayely Sharp, MASSIMO XR Chest Pa Lateral 2 Views 01/01/2025 2:45 PM CDT - 01/01/2025 11:59 PM CDT Hospital Encounter [facility] Radiology - Outpatient Center at [address] [address] Acute cough Discharge Disposition: Discharge to home or self care 01/01/2025 Documentation [facility] Surgery [address] [place] [address] [address] [place] [address] Jose Vega, MASSIMO 01/01/2025 2:15 PM CDT Office Visit [facility] Care at [address] [place] [address] Nayely Sharp, MASSIMO Acute cough (Primary Dx) 01/01/2025 9:30 AM CDT Home Care Visit [place] [address] [place] [address] Kristal Allen, TOÑO SN HOME VISIT 12/31/2024 Orders Only [facility] Surgery [address] [place] [address] [address] [place] [address] Jose Vega, MASSIMO 12/29/2024 Home Care Visit [place] [address] [place] [address] Lori Puckett CARE CONFERENCE 12/29/2024 11:30 AM CDT Home Care Visit [place] [address] [place] [address] Kristal Allen, TOÑO SN HOME VISIT 12/28/2024 Documentation [facility] Surgery [address] [place] [address] [address] [place] [address] Jose Vega NP 12/28/2024 12:00 PM CDT - 12/28/2024 11:59 PM CDT Hospital Encounter [facility] Diagnostic Imaging [address] [place] [address] S/P CABG (coronary artery bypass graft) Discharge Disposition: Discharge to home or self care 12/28/2024 Orders Only [facility] Surgery [address] [place] [facility] [address] [place] [address] Jose Vega NP S/P CABG (coronary artery bypass graft) (Primary Dx) from Last 3 Months Allergies [...] tabletIndication s:hypothyroidism Take 1 tablet by mouth credit and collection manager before breakfast Active metFORMIN (GLUCOPHAGE) 1,000 mg [...] hyperglycemia, with long-term current use of insulin ([facility]) Dx code E11.65. T2DM with hyperglycemia with ad terminal makeup operator current use of insulin. 3 each [...] are complete. Avoid live-vaccines unless reviewed with payroll machine operator first. 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 Restart Trulicity 3 mg weekly [...] and Trulicity Send me a message via CSR every week, so we can look at [...] Overview (12/08/2016): Essential hypertension Coronary arteriosclerosis in [place] artery 09/28 Overview (12/08/2016): Coronary artery disease involving [place] coronary artery of [place] heart without angina pectoris Arthralgia of shoulder [...] materials from doctor or pharmacy Never 01/27/2025 [facility] Utilities Answer Date Recorded In the past 12 months has e [employer], oil, or water [employer] threatened to shut off services in your [...] often do you attend chur ch or christian services? More than 4 times per year 01/11/2025 Do you belong to any clubs o r organizations such as sabianism groups, unions, fraternal or athletic groups, or [...] staff should administer the PHQ-9) 0 08/17/2024 [facility] - Occupational [...] any time in the past 12 m [facility], were you homeless or living in a long term (including now)? No 01/11/2025 Personal Safety Answer Date Recorded Have you ever been in or are you currently in a harmful physical or emotional relationship or is someone making you feel afraid or unsafe? 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 Male 3:55 AM CUSTOMS OPENER VERIFIER PACKER Gender Identity Male 01/23/2020 12:25 AM CDT [...] 03/25/2025 3:29 PM CDT Plan of Treatment Not on file Goals Goal Patient Goal Type Associated Problems Recent Progress Patient-Stated? Author [facility] Worsening(01/2021 2:46 PM CDT) Flor Guzman, RN Note: Play golf with minimal to no relief. Medical Devices Implanted Type Area Physical Security Engineer Device Identifier Shelf Expiration Date Model / Serial / Lot [employer] Active Fixation Steroid Eluting Latex Free Sterile Right Atrium Ventricle Ultipace 58cm [id number]/58 - [id number] - [id number] Implanted:Qty: 1 on 01/08/2025 by Ty Lamb MD at [facility] Lead Left: Chest [employer] [id number] 09/01/2027 [id number]/58 / [id number] / [employer] Active Fixation Steroid Eluting Latex Free Sterile Right Atrium Ventricle Ultipace 52cm Hjy0764/52 - [id number] - [id number] Implanted:Qty: 1 on 01/08/2025 by Ty Lamb MD at [facility] Lead Left: Chest [employer] [id number] 10/31/2027 [id number]/52 / [id number] / [employer] Assurity Mri 60d35sg 2 Chamber Is-1 Connector Thk6mm Pacemaker [id number] - [id number] - [id number] Implanted:Qty: 1 on 01/08/2025 by Ty Lamb MD at [facility] Pacemaker Left: Chest [employer] [id number] 06/01/2026 [id number] / [id number] / New [employer] Liyah Ams 700 Kit Accessory Penile Prosthesis [id number] - [id number] Implanted:Qty: 1 on 06/18/2024 by Jose David Betancourt MD at [facility] N/A: Groin [employer] [id number] 04/08/2029 [id number] / / [id number] [employer] Ams Spectra 12/14mm .5cm Cylinder Concealable Malleable Rear Tip [id number] - [id number] Implanted:Qty: 1 on 06/18/2024 by Jose David Betancourt MD at [facility] N/A: Penis [employer] [id number] 02/15/2029 [id number] / / [id number] [employer] Ams 700 Preconnect 1 Ms Pump 2 Cylinder Penoscrotal Prosthesis [id number] - [id number] Implanted:Qty: 1 on 06/18/2024 by Jose David Betancourt MD at [facility] N/A: Penis [employer] [id number] 10/13/2025 [id number] / / [id number] [employer] Conceal Low Profile Wildomar 100ml Prosthesis Inhibizone Sterile Latex Free 135059-16 - [id number] Implanted:Qty: 1 on 06/18/2024 by Jose David Betancourt MD at [facility] Left: Pelvis [employer]ah [id number] 04/22/2026 043565-65 / / [id number] Procedures Procedure Name Priority Date/Time Associated Diagnosis [...] METABOLIC PANEL STAT 01/07/2025 4:45 PM CDT [place] ARTL CATHJ/CANNULJ MNTR/TRANSFUSION SPX PRQ Routine 01/07/2025 [...] HIGH-SENSITIVITY 2-HOUR Timed 01/07/2025 10:28 AM CDT [place] CRITICAL CARE ILL/INJURED PATIENT INIT 30-74 MIN [...] testing for HIV-1 RNA. Testing performed by: [address], [address] Blood 03/26/2025 6:55 AM CDT 03/26/2025 9:20 AM CDT Juany Teague MD LAB MICROBIOLOGY - GEN ERAL ORDERABLES Final Result JEFF IGLESIAS [facility]) [address] [place] [address] [place] [address] * RPR Blood (03/26/2025 6:55 AM CDT) RPR Nonreactive Nonreactive Comment:Testing performed by : [facility], [address] [place] [address], [address] Blood 03/26/2025 6:55 AM CDT 03/26/2025 9:20 AM CDT Juany Teague MD LAB MICROBIOLOGY - GEN ERAL ORDERABLES Final Result [facility] ([place]) [address] [facility] [place] [address] * Folate (03/26/2025 6:55 AM CDT) [facility] Folic acid 14.5 >=5.0 ng/mL [facility] ([place]) Blood 03/26/2025 6:55 AM CDT 03/26/2025 7:10 AM CDT Juany Teague MD LAB BLOOD ORDERABLES F inal Result JEFF [facility] ([place]) [address] [facility] [place] [address] * Vitamin B12 (03/26/2025 6:55 AM CDT) [facility] Vitamin B12 634 230 - 1,250 pg/mL [facility] ([place]) Blood 03/26/2025 6:55 AM CDT 03/26/2025 7:10 AM CDT Juany Teague MD LAB BLOOD ORDERABLES F inal Result Performing Organization Address City/[facility]/ZIP Co de Phone Number JEFF [facility] ([place]) [address] [facility] [place] [address] * (ABNORMAL) POCT glucose (01/11/2025 1:21 PM CDT) [facility] Glucose, POC 220(H) 70 - 199 mg/dL POC Performer [id number] [facility] Blood 01/11/2025 1:21 PM CDT 01/11/2025 1:21 PM CDT Génesis Delatorre MD LAB POCT ORDERABLES - DEVICE Final Result Performing Organization Address City/[facility]/ZIP Co de Phone Number JEFF [address] Department [place] [address] * eGFR (01/11/2025 1:00 PM CDT) [facility] eGFR >90 >=60 mL/min/1. 73 m2 Comment: [...] CDT 01/11/2025 1:00 PM CDT Jose Vega NP LAB BLOOD ORDERABLES Final Result [facility] [address] Department [place] [address] * (ABNORMAL) Renal function panel (01/11/2025 1:00 PM CDT) Sodium 141 135 - 145 mmol/L Potassium, pl 3.8 3.3 - 4.9 mmol/L [facility] Chloride 100 97 - 110 mmol/L [facility] CO2 27 22 - 32 mmol/L [facility] Anion gap 14 2 - 15 mmol/L [facility] BUN 16 6 - 25 mg/dL [facility] Creatinine 0.67(L) 0.80 - 1.30 mg/dL [facility] Glucose 198 70 - 199 mg/dL [facility] Comment: Interpretive Data Fasting glucose >/= 126 [...] 2022. Calcium 9.3 8.5 - 10.3 mg/dL [facility] Phosphorus, pl 2.8 2.3 - 4.5 mg/dL [facility] Albumin 3.6 3.5 - 5.0 g/dL [facility] Blood 01/11/2025 1:00 PM CDT 01/11/2025 1:00 PM CDT us Jose Vega NP LAB BLOOD ORDERABLES Final Result JE[facility] [address] Department [place] [address] * eGFR (01/11/2025 9:11 AM CDT) eGFR [...] BLOOD ORDERABLES Final R esult JE[facility] [address] Department [place] [address] * (ABNORMAL) CBC without differential [...] BLOOD ORDERABLES Final Result Performing Organization Address City/[facility]/ZIP Co de Phone Number JEFF [facility] [address] Department [place] [address] * (ABNORMAL) CBC without differential (01/11/2025 9:11 AM CDT) WBC 8.77 3.80 - 9.90 K/cumm Hgb 11.0(L) 13.0 - 17.5 g/dL [facility] Hct 36.3(L) 38.9 - 50.3 % [facility] Plt 258 150 - 400 K/cumm [facility] MPV 9.0(L) 9.1 - 12.3 fL [facility] RBC 4.17(L) 4.30 - 5.80 M/cumm [facility] MCV 87.1 81.3 - 96.4 fL [facility] MCH 26.4(L) 27.1 - 33.3 pg [facility] MCHC 30.3(L) 32.3 - 35.7 g/dL [facility] RDW CV 13.8 11.1 - 14.9 % [facility] RDW SD 44.1 35.7 - 48.1 fL [facility] NRBC abs 0.00 0.00 - 0.01 K/cumm [facility] Blood 01/11/2025 9:11 AM CDT 01/11/2025 1:02 PM CDT us Ty Lamb MD LAB BLOOD ORDERABLES Final R esult [facility] [address] Department [place] [address] * (ABNORMAL) Renal function panel (01/11/2025 9:11 AM CDT) Sodium 138 135 - 145 mmol/L Potassium, pl 3.7 3.3 - 4.9 mmol/L [facility] Chloride 98 97 - 110 mmol/L [facility] CO2 29 22 - 32 mmol/L [facility] Anion gap 11 2 - 15 mmol/L [facility] BUN 16 6 - 25 mg/dL [facility] Creatinine 0.67(L) 0.80 - 1.30 mg/dL [facility] Glucose 198 70 - 199 mg/dL [facility] Comment: Interpretive Data Fasting glucose >/= 126 [...] Calcium 9.4 8.5 - 10.3 mg/dL [facility] Phosphorus, pl 2.8 2.3 - 4.5 mg/dL [facility] Albumin 3.7 3.5 - 5.0 g/dL [facility] Blood 01/11/2025 9:11 AM CDT 01/11/2025 1:02 PM CDT Ty Lamb MD LAB BLOOD ORDERABLES Final R esult Performing Organization Address City/[facility]/ZIP Co de Phone Number JEFF [facility] [address] Department [place] [address] * POCT glucose (01/11/2025 8:12 AM CDT) Glucose, POC 189 70 - 199 mg/dL POC Performer [id number] [facility] Blood 01/11/2025 8:12 AM CDT 01/11/2025 8:12 AM CDT Génesis Delatorre MD LAB POCT ORDERABLES - DEVICE Final Result Performing Organization Address [facility] Co de Phone Number SAMANTHAROGER BRODER[facility] [address] Department [place] [address] * (ABNORMAL) POCT glucose (01/10/2025 9:34 PM CDT) Glucose, POC 250(H) 70 - 199 mg/dL POC Performer [id number] [facility] Blood 01/10/2025 9:34 PM CDT 01/10/2025 9:34 PM CDT Génesis Delatorre MD LAB POCT ORDERABLES - DEVICE Final Result Performing Organization Address [facility] Co de Phone Number JEFF [facility] [address] Department [place] [address] * TRANSTHORACIC ECHO (TTE) LIMITED/FOLLOW UP W LTD DOPPLER/CF WO CONTRAST (01/10/2025 6:28 PM CDT) EF Mod BP 60 % CONS SCIMAGE Anatomical Region Laterality Modality Ultrasound 01/10/2025 5:28 PM CDT Narrative 01/10/2025 5:59 PM CDT [place] [id number] Limited Echocardiogram Report Patient Name: SHAWN SHULTZ B : 1950 Study Date: 01/10/2025 5:28:40 PM Gender: M Tech: GA Location: [id number] Ref Provider: KRISTAL EDWARD Height(Cm): 168 BSA: [...] Procedure Note Jose Godoy MD - 01/10/2025 [place] [address] Limited Echocardiogram Report Patient Name: SHAWN SHULTZ B : 1950 Study Date: 01/10/2025 5:28:40 PM Gender: M Tech: GA Location: [address] Provider: KRISTAL EDWARD Height(Cm): 168 BSA: 2.07 [...] Jose Godoy MD 01/10/2025 5:59:06 PM CDT Kristal Edward ENTRY TABLE OPERATOR CV ECHO PROCEDURES Final Result * (ABNORMAL) POCT glucose (01/10/2025 4:49 PM CDT) Glucose, POC 246(H) 70 - 199 mg/dL POC Performer [id number] [facility] Blood 01/10/2025 4:49 PM CDT 01/10/2025 4:49 PM CDT Génesis Delatorre MD LAB POCT ORDERABLES - DEVICE Final Result Performing Organization Address City/[facility]/ZIP Co de Phone Number [facility] [address] Department of Laboratories [place], [place] [address] * Type and screen (01/10/2025 12:49 PM CDT) ABO Rh A Negative Antonio, indirect Negative [facility] Blood 01/10/2025 12:4 9 PM CDT 01/10/2025 12:53 PM CDT Narrative [facility] - 01/10/2025 1:41 PM CDT Has the patient had Daratumumab or Isatuximab in the past 6 months?->Unknown Ty Lamb MD LAB BLOOD BANK TEST ORDERABL ES Final Result [facility] [address] Department [place] [address] * (ABNORMAL) POCT glucose (01/10/2025 12:05 PM CDT) Glucose, POC 208(H) 70 - 199 mg/dL POC Performer [id number] [facility] Blood 01/10/2025 12:0 5 PM CDT 01/10/2025 12:05 PM CDT Géensis Delatorre MD LAB POCT ORDERABLES - DEVICE Final Result Performing Organization Address [facility] de Phone Number JEFF [facility] [address] [place] [address] * POCT glucose (01/10/2025 8:05 AM CDT) Glucose, POC 194 70 - 199 mg/dL POC Performer [id number] [facility] Blood 01/10/2025 8:05 AM CDT 01/10/2025 8:05 AM CDT Génesis Delatorre MD LAB POCT ORDERABLES - DEVICE Final Result Performing Organization Address [facility] de Phone Number SAMANTHAROGER BRODER[facility] [address] Department [place] [address] * Calcium, ionized, whole blood (01/10/2025 7:43 AM CDT) Ca, ionized, bld 4.63 4.50 - 5.10 mg/dL Blood 01/10/2025 7:43 AM CDT 01/10/2025 7:53 AM CDT Ty Lamb MD LAB BLOOD ORDERABLES Final R esult Performing Organization Address [facility] Co de Phone Number JEFF [facility] [address] Department [place] [address] * eGFR (01/10/2025 7:43 AM CDT) Pathologist [facility] [place] eGFR >90 >=60 mL/min/1. 73 m2 Comment: [...] 7:43 AM CDT 01/10/2025 7:55 AM CDT Fran Garcia NP LAB BLOOD ORDERABLES Fin al Result JEFF [address] Department [place] [address] * (ABNORMAL) CBC without differential (01/10/2025 7:43 AM CDT) Pathologist [facility] WBC 8.90 3.80 - 9.90 K/cumm Hgb 9.9(L) 13.0 - 17.5 g/dL [facility] Hct 32.4(L) 38.9 - 50.3 % [facility] Plt 232 150 - 400 K/cumm [facility] MPV 8.7(L) 9.1 - 12.3 fL [facility] RBC 3.78(L) 4.30 - 5.80 M/cumm [facility] MCV 85.7 81.3 - 96.4 fL [facility] MCH 26.2(L) 27.1 - 33.3 pg [facility] MCHC 30.6(L) 32.3 - 35.7 g/dL [facility] RDW CV 13.6 11.1 - 14.9 % [facility] RDW SD 42.4 35.7 - 48.1 fL [facility] NRBC abs 0.00 0.00 - 0.01 K/cumm [facility] Blood 01/10/2025 7:43 AM CDT 01/10/2025 7:55 AM CDT Ty Lamb MD LAB BLOOD ORDERABLES Final R esult [address] [place] [address] * Magnesium (01/10/2025 7:43 AM CDT) Pathologist [facility] Magnesium 1.9 1.4 - 2.5 mg/dL Blood 01/10/2025 7:43 AM CDT 01/10/2025 7:55 AM CDT Ty Lamb MD LAB BLOOD ORDERABLES Final R [facility] [address] [place] [address] * (ABNORMAL) Renal function panel (01/10/2025 7:43 AM CDT) Sodium 136 135 - 145 mmol/L Potassium, pl 4.1 3.3 - 4.9 mmol/L [facility] Chloride 102 97 - 110 mmol/L [facility] CO2 26 22 - 32 mmol/L [facility] Anion gap 8 2 - 15 mmol/L [facility] BUN 14 6 - 25 mg/dL [facility] Creatinine 0.67(L) 0.80 - 1.30 mg/dL [facility] Glucose 186 70 - 199 mg/dL [facility] Comment: Interpretive Data Fasting glucose >/= 126 [...] 2022. Calcium 8.9 8.5 - 10.3 mg/dL [facility] Phosphorus, pl 2.3 2.3 - 4.5 mg/dL [facility] Albumin 3.3(L) 3.5 - 5.0 g/dL [facility] Blood 01/10/2025 7:43 AM CDT 01/10/2025 7:55 AM CDT us Ty Lamb MD LAB BLOOD ORDERABLES Final R esult [facility] [address] Department [place] [address] * XR Chest 1 View (01/10/2025 6:05 [...] 239(H) 70 - 199 mg/dL POC Performer [id number] [facility] Blood 01/09/2025 9:09 PM CDT 01/09/2025 9:09 PM CDT Génesis Delatorre MD LAB POCT ORDERABLES - DEVICE Final Result Performing Organization Address [facility]/ZIP Co de Phone Number JEFF DAVIE [address] [place] [address] * (ABNORMAL) POCT glucose (01/09/2025 5:32 PM CDT) Glucose, POC 254(H) 70 - 199 mg/dL POC Performer [id number] [facility] Blood 01/09/2025 5:32 PM CDT 01/09/2025 5:32 PM CDT Génesis Delatorre MD LAB POCT ORDERABLES - DEVICE Final Result JEFF [address] [place] [address] * (ABNORMAL) POCT glucose (01/09/2025 12:59 PM CDT) Glucose, POC 226(H) 70 - 199 mg/dL POC Performer [id number] [facility] [facility] [place] Blood 01/09/2025 12:5 9 PM CDT 01/09/2025 12:59 PM CDT Génesis Delatorre MD LAB POCT ORDERABLES - DEVICE Final Result Performing Organization Address [facility] Co de Phone Number JEFF BRODERICK [address] [employer] [place], [place] [phone] * POCT glucose (01/09/2025 7:47 AM CDT) Glucose, POC 191 70 - 199 mg/dL POC Performer [id number] [facility] Blood 01/09/2025 7:47 AM CDT 01/09/2025 7:47 AM CDT Génesis Delatorre MD LAB POCT ORDERABLES - DEVICE Final Result Performing Organization Address [facility] de Phone Number SAMANTHAROGER BRODERICK [address] [place] [address] * Calcium, ionized, whole blood (01/09/2025 6:20 AM CDT) Ca, ionized, bld 4.52 4.50 - 5.10 mg/dL Blood 01/09/2025 6:20 AM CDT 01/09/2025 7:08 AM CDT Ty Lamb MD LAB BLOOD ORDERABLES Final R esult Performing Organization Address City/[facility] Co de Phone Number JEFF BRODERICK [address] [employer] [place], [place] [phone] * eGFR (01/09/2025 6:20 AM CDT) eGFR [...] AM CDT 01/09/2025 7:11 AM CDT us Fran Garcia NP LAB BLOOD ORDERABLES Fin al Result [facility] [address] [place] [address] * (ABNORMAL) CBC without differential (01/09/2025 6:20 AM CDT) WBC 10.74(H) 3.80 - 9.90 K/cumm Hgb 9.7(L) 13.0 - 17.5 g/dL [facility] Hct 32.0(L) 38.9 - 50.3 % [facility] Plt 279 150 - 400 K/cumm [facility] MPV 8.8(L) 9.1 - 12.3 fL [facility] RBC 3.70(L) 4.30 - 5.80 M/cumm [facility] MCV 86.5 81.3 - 96.4 fL [facility] MCH 26.2(L) 27.1 - 33.3 pg [facility] MCHC 30.3(L) 32.3 - 35.7 g/dL [facility] RDW CV 13.4 11.1 - 14.9 % [facility] RDW SD 42.2 35.7 - 48.1 fL [facility] NRBC abs 0.00 0.00 - 0.01 K/cumm [facility] Blood 01/09/2025 6:20 AM CDT 01/09/2025 7:11 AM CDT Ty Lamb MD LAB BLOOD ORDERABLES Final R esult Performing Organization Address City/[facility] Co de Phone Number JEFF BRODERICK [address] Department of [employer] [place], [place] [id number] * Magnesium (01/09/2025 6:20 AM CDT) Pathologist [facility] [place] Magnesium 1.9 1.4 - 2.5 mg/dL Blood 01/09/2025 6:20 AM CDT 01/09/2025 7:11 AM CDT Ty Lamb MD LAB BLOOD ORDERABLES Final [facility] Performing Organization Address [facility] de Phone Number JEFF [address] [place] [address] * (ABNORMAL) Renal function panel (01/09/2025 6:20 AM CDT) Sodium 135 135 - 145 mmol/L Potassium, pl 3.9 3.3 - 4.9 mmol/L [facility] Chloride 101 97 - 110 mmol/L [facility] CO2 24 22 - 32 mmol/L [facility] Anion gap 10 2 - 15 mmol/L [facility] BUN 17 6 - 25 mg/dL [facility] Creatinine 0.75(L) 0.80 - 1.30 mg/dL [facility] Glucose 195 70 - 199 mg/dL [facility] Comment: Interpretive Data Fasting glucose >/= 126 [...] Albumin 3.3(L) 3.5 - 5.0 g/dL [facility] Blood 01/09/2025 6:20 AM CDT 01/09/2025 7:11 AM CDT us Ty Lamb MD LAB BLOOD ORDERABLES Final R esult JEFF BRODERICK [address] Department of Laboratories [place] [phone] * XR Chest 1 View (01/09/2025 6:15 [...] 161 70 - 199 mg/dL POC Performer [id number] JEFF Blood 01/08/2025 8:21 PM CDT 01/08/2025 8:21 PM CDT Génesis Delatorre MD LAB POCT ORDERABLES - DEVICE Final Result JEFF [address] [place] [address] * XR Chest 1 Vw Portable (01/08/2025 [...] 1 Hour (01/08/2025 5:18 PM CDT) Narrative [facility]_ - 01/08/2025 5:20 PM CDT The images from this study are not interpreted by Radiology. Please refer to the physician's procedure / OR operative note. Ty Lamb MD IMG FLUOROSCOPY PROCEDURES F inal Result Performing Organization Address City/[facility]/ZIP Co de Phone Number [facility]_ * (ABNORMAL) POCT glucose (01/08/2025 11:56 AM CDT) Glucose, POC 222(H) 70 - 199 mg/dL POC Performer [id number] JEFF BRODERICK Blood 01/08/2025 11:5 6 AM CDT 01/08/2025 11:56 AM CDT Ty Lamb MD LAB POCT ORDERABLES - DEVICE Final Result Performing Organization Address City/[facility]/ZIP Co de Phone Number [facility] [address] [place] [address] * Infection Prevention MRSA Only (Staphylococcus aureus) PCR Nasal (01/08/2025 8:06 AM CDT) PCR Scrn, Methicillin resistant Staphylococcus aureus (MRSA) Not Detected Not Detected Comment: Interpretive Data Testing performed using Nucleic Acid Amplification with the Respectance Xpert MRSA NxG Assay. This assay detects target DNA from mecA, mecC and the SCCmec insertion site of Staphylococcus aureus using Real-Time PCR and has been cleared by the FDA. Performance characteristics have been verified by the [facility]. Current Interpretive Data was last revised on 2023 Nasal 01/08/2025 8:06 AM CDT 01/08/2025 8:11 AM CDT us Ty Lamb MD LAB MICROBIOLOGY - GENERAL O RDERABLES Final Result Performing Organization Address City/[facility]/ZIP Co de Phone Number JEFF BRODERICK [address] [place] [address] CH * (ABNORMAL) POCT glucose (01/08/2025 8:03 AM CDT) Glucose, POC 237(H) 70 - 199 mg/dL POC Performer [id number] JEFF Blood 01/08/2025 8:03 AM CDT 01/08/2025 8:03 AM CDT us Génesis Delatorre MD LAB POCT ORDERABLES - DEVICE Final Result Performing Organization Address City/[facility]/ZIP Co de Phone Number JEFF BRODERICK [address] [place] [address] * Critical Care (01/08/2025 7:02 AM CDT) [...] plan with the ICU team and other medical/sustainability consultant staff, making frequent assessments and decisions [...] failure. Electronically signed by: Zenon Wing M.D. us Ty Lamb MD IMG XR PROCEDURES Final Resu lt * POCT glucose (01/08/2025 5:06 AM CDT) Glucose, POC 163 70 - 199 mg/dL POC Performer [id number] [facility] Blood 01/08/2025 5:06 AM CDT 01/08/2025 5:06 AM CDT Ty Lamb MD LAB POCT ORDERABLES - DEVICE Final Result Performing Organization Address [facility] Co de Phone Number JEFF [address] [place] [address] * eGFR (01/08/2025 12:33 AM CDT) eGFR [...] 01/08/2025 12:33 AM CDT us Fran Garcia NP LAB BLOOD ORDERABLES Fin al Result Performing Organization Address [facility] Co de Phone Number JEFF BRODERICK [address] [place] [address] * Magnesium (01/08/2025 12:33 AM CDT) Magnesium 1.9 1.4 - 2.5 mg/dL Blood 01/08/2025 12:3 3 AM CDT 01/08/2025 12:33 AM CDT us Ty Lamb MD LAB BLOOD ORDERABLES Final R esult Performing Organization Address [facility]/ZIP Co de Phone Number JEFF BRODERICK [address] Department [place] [address] * (ABNORMAL) Renal function panel (01/08/2025 12:33 AM CDT) Sodium 136 135 - 145 mmol/L Potassium, pl 4.0 3.3 - 4.9 mmol/L [facility] Chloride 103 97 - 110 mmol/L [facility] CO2 24 22 - 32 mmol/L [facility] Anion gap 9 2 - 15 mmol/L [facility] BUN 14 6 - 25 mg/dL [facility] Creatinine 0.71(L) 0.80 - 1.30 mg/dL [facility] Glucose 212(H) 70 - 199 mg/dL [facility] Comment: Interpretive Data Fasting glucose >/= [...] [facility] Albumin 3.4(L) 3.5 - 5.0 g/dL [facility] Blood 01/08/2025 12:3 3 AM CDT 01/08/2025 12:33 AM CDT Ty Lamb MD LAB BLOOD ORDERABLES Final R esult JEFF BRODERICK [address] [place] [address] * (ABNORMAL) POCT glucose (01/08/2025 12:26 AM CDT) Glucose, POC 232(H) 70 - 199 mg/dL POC Performer [id number] JEFF Blood 01/08/2025 12:2 6 AM CDT 01/08/2025 12:26 AM CDT Génesis Delatorre MD LAB POCT ORDERABLES - DEVICE Final Result Performing Organization Address [facility] Co de Phone Number [facility] NAM[facility] [address] [place] [address] * (ABNORMAL) Troponin T high-sensitivity (01/08/2025 12:20 AM CDT) Trop T hs 72(H) <=22 ng/L Comment: Interpretive Data For further hscTnT resources including the diagnostic algorithm and an aid in interpretation, copy and paste this link: https://nrl.testcatalog.org/show/hsTrop Current Interpretive Data last revised 2020. Blood 01/08/2025 12:2 0 AM CDT 01/08/2025 12:34 AM CDT Fran Garcia NP LAB BLOOD ORDERABLES Fin al Result Performing Organization Address City/[facility]/ZIP Co de Phone Number [facility]TH[facility]ORMERLY NAMED [facility] [address] [place] [address] * Calcium, ionized, whole blood (01/08/2025 12:20 AM CDT) Ca, ionized, bld 4.73 4.50 - 5.10 mg/dL Blood 01/08/2025 12:2 0 AM CDT 01/08/2025 12:35 AM CDT Ty Lamb MD LAB BLOOD ORDERABLES Final R esult Performing Organization Address [facility] Co de Phone Number JEFF BRODERICK [address] Department [place] [address] * (ABNORMAL) CBC without differential (01/08/2025 12:20 AM CDT) WBC 10.30(H) 3.80 - 9.90 K/cumm Hgb 9.8(L) 13.0 - 17.5 g/dL [facility] Hct 31.1(L) 38.9 - 50.3 % [facility] Plt 341 150 - 400 K/cumm [facility] MPV 8.6(L) 9.1 - 12.3 fL [facility] RBC 3.66(L) 4.30 - 5.80 M/cumm [facility] MCV 85.0 81.3 - 96.4 fL [facility] MCH 26.8(L) 27.1 - 33.3 pg [facility] MCHC 31.5(L) 32.3 - 35.7 g/dL [facility] RDW CV 13.3 11.1 - 14.9 % [facility] RDW SD 41.7 35.7 - 48.1 fL [facility] NRBC abs 0.00 0.00 - 0.01 K/cumm [facility] Blood 01/08/2025 12:2 0 AM CDT 01/08/2025 12:39 AM CDT us Ty Lamb MD LAB BLOOD ORDERABLES Final R [facility] Performing Organization Address City/[facility]/ZIP Co de Phone Number JEFF BRODERICK [address] Department [place] [place] [address] * (ABNORMAL) POCT glucose (01/07/2025 9:55 PM CDT) Glucose, POC 249(H) 70 - 199 mg/dL POC Performer [id number] [facility] Blood 01/07/2025 9:55 PM CDT 01/07/2025 9:55 PM CDT us Ty Lamb MD LAB POCT ORDERABLES - DEVICE Final Result JEFF BRODERICK [address] [place] [address] * Critical Care (01/07/2025 8:43 PM CDT) [...] plan with the patient's team and other medical/sustainability consultant staff. This time was in addition to and separate from care provided by other practitioners on this day of service. Heri Tovar ENTRY TABLE OPERATOR IN CLINIC/BEDSIDE ORDER BEATRIZ Final Result * (ABNORMAL) POCT glucose (01/07/2025 7:54 PM CDT) Pathologist [facility] [place] Glucose, POC 266(H) 70 - 199 mg/dL POC Performer [id number] [facility] Blood 01/07/2025 7:54 PM CDT 01/07/2025 7:54 PM CDT Ty Lamb MD LAB POCT ORDERABLES - DEVICE Final Result Performing Organization Address City/[facility]/ZIP Co de Phone Number JEFF BRODERICK [address] [address] [place] [address] * (ABNORMAL) Troponin T high-sensitivity (01/07/2025 6:24 PM CDT) Trop T hs 81(H) <=22 ng/L Comment: Interpretive Data For further hscTnT resources including the diagnostic algorithm and an aid in interpretation, copy and paste this link: https://nrl.testcatalog.org/show/hsTrop Current Interpretive Data last revised 2020. Blood 01/07/2025 6:24 PM CDT 01/07/2025 6:32 PM CDT Fran Garcia NP LAB BLOOD ORDERABLES Fin al Result Performing Organization Address [facility] Co de Phone Number JEFF [address] [facility] [employer] [place] [address] * Type and screen (01/07/2025 6:24 PM CDT) Antonio, indirect Negative ABO Rh A Negative [facility] Blood 01/07/2025 6:24 PM CDT 01/07/2025 6:42 PM CDT Narrative [facility] - 01/07/2025 7:44 PM CDT Has the patient had Daratumumab or Isatuximab in the past 6 months?->Unknown Fran Garcia NP LAB BLOOD BANK TEST ORDE RABLES Final Result Performing Organization Address [facility]/[place] de Phone Number JEFF [address] [address] [facility] [place] [address] * Urinalysis reflex to microscopic (01/07/2025 5:32 PM CDT) Color, ur Yellow Yellow Clarity, ur Clear Clear [facility] Specific gravity, ur 1.026 1.003 - 1.030 [facility] CH pH, urine 6.0 [facility] Comment: Interpretive Data U rine pH is affected by diet, medications, systemic acid-base disturbances, and renal tubular function. pH may affect urinary stone formation. For example, urine pH below 6.0 may help reduce the tendency for calcium phosphate stones and pH greater than 6.0 may reduce the tendency for uric acid stone formation. Source: [facility] [employer] Current Interpretive Data was last revised on [...] Reflex conditions for microscopic UA not met. [facility] Urine 01/07/2025 5:32 PM CDT 01/07/2025 5:42 PM CDT Fran Garcia NP LAB URINE ORDERABLES Fin al Result Performing Organization Address [facility]/[place] de Phone Number JEFF [address] Department [employer] [place], [place] [phone] * Strep pneumoniae antigen, urine Urine (01/07/2025 [...] PM CDT 01/07/2025 8:59 PM CDT Fran Gacria NP LAB MICROBIOLOGY - GENER AL ORDERABLES Final Result Performing Organization Address [facility] Co de Phone Number SAMANTHAFORMERLY NAMED [facility] [address] [address] [place] [address] * Legionella antigen Urine (01/07/2025 5:32 PM CDT) Pathologist [facility] [place] Legionella Ag Negative Negative Comment: Interpretive Data This test detects only Legionella pneumophila serogroup 1 antigen. Current interpretive data was last revised on 2019. Urine 01/07/2025 5:32 PM CDT 01/07/2025 5:42 PM CDT Fran Garcia NP LAB MICROBIOLOGY - GENER AL ORDERABLES Final Result [facility] [address] [place] [address] * (ABNORMAL) Respiratory pathogen panel Nasopharyngeal (01/07/2025 5:30 PM CDT) [facility] Influenza A RNA Not Detected Not Detected Influenza B RNA Not Detected Not Detected [facility] RSV RNA Not Detected Not Detected [facility] COVID-19 RNA Not Detected Not Detected [facility] Coronavirus 229E RNA Not Detected Not Detected [facility] Coronavirus HKU1 RNA Not Detected Not Detected [facility] Coronavirus NL63 RNA Not Detected Not Detected [facility] Coronavirus OC43 RNA Not Detected Not Detected [facility] Adenovirus DNA Not Detected Not Detected [facility] Metapneumovirus RNA Detected(A) Not Detected [facility] Rhinovirus/Enterov irus RNA Not Detected Not Detected [facility] Parainfluenza 1 RNA Not Detected Not Detected [facility] Parainfluenza 2 RNA Not Detected Not Detected [facility] Parainfluenza 3 RNA Not Detected Not Detected [facility] Parainfluenza 4 RNA Not Detected Not Detected [facility] B. pertussis DNA Not Detected Not Detected [facility] B. parapertussis DNA Not Detected Not Detected [facility] C. pneumoniae DNA Not Detected Not Detected [facility] M. pneumoniae DNA Not Detected Not Detected [facility] Comment: Interpretive Data The ACS Global FilmArray Respiratory Panel (RP2.1) assay is a [...] assay has FDA clearance for testing of ENTRY TABLE OPERATOR swabs. The performance characteristics of this assay have been determined by [facility]. Current interpretive data was last revised on 2021. Nasopharyngeal 01/07/2025 5: 30 PM CDT 01/07/2025 6:35 PM CDT Shanice Pacheco 01/07/2025 8:39 PM CDT Is the Patient experiencing symptoms consistent with COVID?->Unknown Surveillance testing for transplant patient?->No Fran Garcia ENTRY TABLE OPERATOR LAB MICROBIOLOGY - GENER AL ORDERABLES Final Result JEFF [address] Department [place] [address] * Critical Care (01/07/2025 4:59 PM CDT) [...] plan with the ICU team and other medical/sustainability consultant staff, making frequent assessments and decisions [...] in the medical record us Fran Garcia ENTRY TABLE OPERATOR IN CLINIC/BEDSIDE ORDERA BLES Final Result * (ABNORMAL) Troponin T high-sensitivity (01/07/2025 4:45 PM CDT) Trop T hs 79(H) <=22 ng/L Comment: Interpretive Data For further hscTnT resources including the diagnostic algorithm and an aid in interpretation, copy and paste this link: https://nrl.testcatalog.org/show/hsTrop Current Interpretive Data last revised 2020. Blood 01/07/2025 4:45 PM CDT 01/07/2025 5:10 PM CDT Fran aGrcia ENTRY TABLE OPERATOR LAB BLOOD ORDERABLES Fin al Result Performing Organization Address [facility] Co de Phone Number JEFF [address] [address] [facility] [employer] [place] [address] * Sepsis Lactate w/ Reflex (01/07/2025 4:45 PM CDT) Sepsis Lactate 1.9 0.7 - 2.0 mmol/L Blood 01/07/2025 4:45 PM CDT 01/07/2025 5:10 PM CDT Sindhu Whittington MD LAB BLOOD ORDERABLES Iris l Result Performing Organization Address [facility] de Phone Number JEFF [address] [address] [facility] [place] [place] [address] * Lactate (01/07/2025 4:45 PM CDT) Lactate 1.9 0.7 - 2.0 mmol/L Blood 01/07/2025 4:45 PM CDT 01/07/2025 5:10 PM CDT Fran Garcia ENTRY TABLE OPERATOR LAB BLOOD ORDERABLES Fin al Result Performing Organization Address [facility] de Phone Number [facility] [address] [address] [facility] [employer] [place], [place] [phone] * Calcium, ionized, whole blood (01/07/2025 4:45 PM CDT) Ca, ionized, bld 4.62 4.50 - 5.10 mg/dL Blood 01/07/2025 4:45 PM CDT 01/07/2025 5:10 PM CDT Fran Garcia ENTRY TABLE OPERATOR LAB BLOOD ORDERABLES Fin al Result Performing Organization Address [facility] Co de Phone Number [facility] [address] [address] [facility] [place] [address] * eGFR (01/07/2025 4:45 PM CDT) eGFR [...] LAB BLOOD ORDERABLES Fin al Result JEFF [address] [place] [address] * (ABNORMAL) Pro B-type natriuretic [...] Heart J. 2006:27:330-337. 2. Vandana RW, Larry THOMPSON. J. AM Casimiro Cardiol: Cardiovasc Imag. 2009;2: 216- 225. Interpretive Data Last Revised Date: 2018. Blood 01/07/2025 4:45 PM CDT 01/07/2025 5:10 PM CDT Fran Garcia ENTRY TABLE OPERATOR LAB BLOOD ORDERABLES Fin al Result Performing Organization Address [facility]/[place] de Phone Number JEFF [address] [place] [address] * Thyroid Function [place] (01/07/2025 4:45 PM CDT) TSH 0.75 0.30 - 4.20 mcIUnit/mL Blood 01/07/2025 4:45 PM CDT 01/07/2025 5:10 PM CDT Fran Garcia NP LAB BLOOD ORDERABLES Fin al Result Performing Organization Address [facility]/[place] [address] [address] [place], [place] [id number] * aPTT (01/07/2025 4:45 PM CDT) aPTT 32 28 - 38 sec Comment: Interpretive Data Heparin therapeutic range: 66.0 - 100.0 seconds. Range based on correlation with therapeutic heparin activity range of 0.3 - 0.7 Units/mL. Current interpretive data was last revised on 2023. Blood 01/07/2025 4:45 PM CDT 01/07/2025 5:10 PM CDT Fran Garcia ENTRY TABLE OPERATOR LAB BLOOD ORDERABLES Fin al Result Performing Organization Address City/[facility]/ZIP Co de Phone Number JEFF BRODERICK [address] [place] [address] * (ABNORMAL) Protime-INR (01/07/2025 4:45 PM CDT) [...] ORDERABLES Fin al Result Performing Organization Address City/[facility]/ZIP Co de Phone Number JEFF BRODERICK [address] [address] [place] [address] * Fibrinogen (01/07/2025 4:45 PM CDT) Fibrinogen 359 170 - 400 mg/dL Blood 01/07/2025 4:45 PM CDT 01/07/2025 5:10 PM CDT us Fran Garcia NP LAB BLOOD ORDERABLES Fin al Result Performing Organization Address City/[facility]/ZIP Co de Phone Number JEFF BRODERICK [address] [address] [place] [address] * (ABNORMAL) CBC without differential (01/07/2025 4:45 PM CDT) WBC 9.43 3.80 - 9.90 K/cumm Hgb 9.9(L) 13.0 - 17.5 g/dL [facility] Hct 31.6(L) 38.9 - 50.3 % [facility] Plt 306 150 - 400 K/cumm [facility] MPV 8.7(L) 9.1 - 12.3 fL [facility] RBC 3.72(L) 4.30 - 5.80 M/cumm [facility] MCV 84.9 81.3 - 96.4 fL [facility] MCH 26.6(L) 27.1 - 33.3 pg [facility] CH MCHC 31.3(L) 32.3 - 35.7 g/dL [facility] RDW CV 13.4 11.1 - 14.9 % [facility] RDW SD 41.4 35.7 - 48.1 fL [facility] NRBC abs 0.00 0.00 - 0.01 K/cumm [facility] Blood 01/07/2025 4:45 PM CDT 01/07/2025 5:12 PM CDT Fran Garcia NP LAB BLOOD ORDERABLES Fin al Result Performing Organization Address City/[facility] Co de Phone Number JEFF [address] [address] [facility] [place] [place] [address] * Uric acid (01/07/2025 4:45 PM CDT) Pathologist [facility] [place] Uric acid 4.0 3.0 - 8.0 mg/dL Blood 01/07/2025 4:45 PM CDT 01/07/2025 5:10 PM CDT Fran Garcia NP LAB BLOOD ORDERABLES Fin al Result Performing Organization Address City/[facility] Co de Phone Number [facility] [address] [address] [facility] [place] [place] [address] * Phosphorus (01/07/2025 4:45 PM CDT) Phosphorus, pl 2.7 2.3 - 4.5 mg/dL Blood 01/07/2025 4:45 PM CDT 01/07/2025 5:10 PM CDT Fran Garcia ENTRY TABLE OPERATOR LAB BLOOD ORDERABLES Fin al Result Performing Organization Address [facility] de Phone Number JEFF [phone] Department [place] [address] * Magnesium (01/07/2025 4:45 PM CDT) Magnesium 1.7 1.4 - 2.5 mg/dL Blood 01/07/2025 4:45 PM CDT 01/07/2025 5:10 PM CDT Fran Garcia ENTRY TABLE OPERATOR LAB BLOOD ORDERABLES Fin al Result Performing Organization Address [facility] de Phone Number JEFF [address] Department [place] [address] * Blood gas, venous (01/07/2025 4:45 PM [...] CDT 01/07/2025 5:10 PM CDT Fran Garcia ENTRY TABLE OPERATOR LAB BLOOD ORDERABLES Fin al Result Performing Organization Address [facility] Co de Phone Number JEFF BRODERICK [phone] [address] Galarza [facility] [place] [address] * Creatine kinase (CK), total (01/07/2025 4:45 PM CDT) CK 52 40 - 300 Units/L Blood 01/07/2025 4:45 PM CDT 01/07/2025 5:10 PM CDT Fran Garcia ENTRY TABLE OPERATOR LAB BLOOD ORDERABLES Fin al Result Performing Organization Address [facility] Co de Phone Number JEFF BRODERICK [phone] [address] [facility] [place] [address] * Creatine kinase (CK), total (01/07/2025 4:45 PM CDT) CK 51 40 - 300 Units/L Blood 01/07/2025 4:45 PM CDT 01/07/2025 5:10 PM CDT Fran Garcia ENTRY TABLE OPERATOR LAB BLOOD ORDERABLES Fin al Result Performing Organization Address [facility] Co de Phone Number SAMANTHAROGER BRODERICK [address] [address] Gal[address] [facility] [place] [address] * Bilirubin, direct (01/07/2025 4:45 PM CDT) Pathologist [facility] Bilirubin, direct 0.1 0.1 - 0.3 mg/dL Blood 01/07/2025 4:45 PM CDT 01/07/2025 5:10 PM CDT Fran Garcia ENTRY TABLE OPERATOR LAB BLOOD ORDERABLES Fin al Result Performing Organization Address [facility]/ZIP Co de Phone Number JEFF BRODERICK [phone] [place] [address] * (ABNORMAL) Comprehensive metabolic panel (01/07/2025 4:45 PM CDT) Sodium 138 135 - 145 mmol/L [...] LAB BLOOD ORDERABLES Fin al Result JEFF [address] [address] Department [place] [address] * [place] ARTL CATHJ/CANNULJ MNTR/TRANSFUSION SPX PRQ (01/07/2025 3:30 PM CDT) Narrative Fran Garcia NP - 01/07/2025 3:30 PM CDT Fran Garcia NP 01/26/2025 5:55 PM Arterial Line Insertion Date/Time: 01/07/2025 3:30 PM Performed by: Fran Garcia NP Authorized by: Fran Garcia NP [place] Protocol: RN Notified of Procedure: yes Informed [...] PM CDT Narrative 01/07/2025 3:24 PM CDT [place] [id number] Echocardiogram Report Patient Name: SHAWN SHULTZ BRI : 1950 Study Date: 01/07/2025 1:26:17 PM Gender: M Tech: Location: [id number] Ref Provider: FRAN GARCIA Height(Cm): 168 BSA: [...] Procedure Note Isidro Carvalho MD - 01/07/2025 [place] [address] Echocardiogram Report Patient Name: SHAWN SHULTZ BRI : 1950 Study Date: 01/07/2025 1:26:17 PM Gender: M Tech: JELANI Location: [id number] [facility] Provider: FRAN GARCIA Height(Cm): 168 BSA: 2.05 [...] 3.10 - 3.70 ] MV E [place] 0.62 m/s[ 0.60 - 1.30 ] MV [...] PM CDT) 01/07/2025 2:15 PM CDT Narrative [facility] - 01/07/2025 2:36 PM CDT Vent Rate: 96 bpm RR Interval: 625 msec [place] Interval: 234 msec QRS Duration: 101 msec QT Interval: 367 msec QTC Interval: 420 msec P-R-T [place]: 24 - 119 - 97 degrees IMPRESSION: SINUS RHYTHM WITH FIRST DEGREE AV BLOCK INCOMPLETE RIGHT BUNDLE BRANCH BLOCK RIGHT VENTRICULAR HYPERTROPHY NONSPECIFIC ST \T\ T-WAVE ABNORMALITY Electronically Signed By: Washington Díaz MD, [facility] us Fran Garcia NP ECG ORDERABLES Final Re sult [facility] * X-ray chest 1 view [...] signed by: Zenon Wing M.D. Fran Garcia ENTRY TABLE OPERATOR IMG XR PROCEDURES Final Result * (ABNORMAL) POCT glucose (01/07/2025 12:53 PM CDT) Glucose, POC 212(H) 70 - 199 mg/dL POC Performer [id number] JEFF BRODERICK Blood 01/07/2025 12:5 3 PM CDT 01/07/2025 12:53 PM CDT Génesis Delatorre MD LAB POCT ORDERABLES - DEVICE Final Result JEFF [address] Department [place] [address] * (ABNORMAL) Troponin T high-sensitivity 2-hour (01/07/2025 10:28 AM CDT) Trop T hs 74(H) <=22 ng/L Comment: Michael Mcnulty RN ER Interpretive Data For further hscTnT resources including the diagnostic algorithm and an aid in interpretation, copy and paste this link: https://nrl.testcatalog.org/show/hsTrop Current Interpretive Data last revised 2020. Trop T hs delta 41(C) ng/L [facility] ([place]) Comment:Critical Result call ed by [id number] at 2025-01-07 11:19:30. Result Read Back by Michael Mcnulty RN ER Trop T hs interp Significa nt(C) JEFF IGLESIAS ([place]) Comment:Critical Result call ed by [email or web address] at 2025-01-07 11:19:30. Result Read Back by Michael Mcnulty RN ER Blood 01/07/2025 10:2 8 AM CDT 01/07/2025 10:33 AM CDT us Jt Zacarias MD LAB BLOOD ORDERABLE S Final Result JEFF IGLESIAS ([place]) 1 [facility] Department [place] [address] * [place] CRITICAL CARE ILL/INJURED PATIENT INIT 30-74 MIN [...] ORDERABLES - NOAH CE Final Result JEFF [facility] [address] Department [place] [address] * TRANSTHORACIC ECHO (TTE) LIMITED/FOLLOW UP WO DOPPLER/CF WO CONTRAST (01/07/2025 9:32 AM CDT) Pathologist [facility] Estimated EF 65 % CONS SCIMAGE Anatomical Region Laterality Modality Ultrasound 01/07/2025 9:09 AM CDT Narrative 01/07/2025 9:54 AM CDT [address] [address] Limited Echocardiogram Report Patient Name: SHAWN SHULTZ BRI : 1950 Study Date: 01/07/2025 9:09:51 AM Gender: M Tech: AA Location: [facility] Ref Provider: JT ZACARIAS Height(Cm): BSA: Weight(Kg): [...] Procedure Note Jose Godoy MD - 01/07/[address] [address] Limited Echocardiogram Report Patient Name: SHAWN SHULTZ BRI : 1950 Study Date: 01/07/2025 9:09:51 AM Gender: M Tech: AA Location: [facility] Ref Provider: JT ZACARIAS Height(Cm): BSA: Weight(Kg): [...] Lyla Salamanca M.D. FT: FT Report ID: [id number] Reading Location: [id number] Procedure Note Lyla Roberson MD - 01/07/2025 [...] Lyla Salamanca M.D. FT: FT Report ID: [id number] Reading Location: [id number] Jt Zacarias MD IMG XR PROCEDURES F inal Result * (ABNORMAL) Sepsis Lactate w/ Reflex (01/07/2025 8:58 AM CDT) Sepsis Lactate 3.9(H) 0.7 - 2.0 mmol/L Blood 01/07/2025 8:58 AM CDT 01/07/2025 9:01 AM CDT us Jt Zacarias MD LAB BLOOD ORDERABLE S Final Result Performing Organization Address [facility] Co de Phone Number JEFF IGLESIAS ([place]) 1 [facility] [place] [address] * (ABNORMAL) Troponin T high-sensitivity series (baseline, [...] ORDERABLE S Final Result Performing Organization Address [facility] Co de Phone Number JEFF IGLESIAS ([place]) 1 [facility] [place] [address] * eGFR (01/07/2025 8:40 AM CDT) eGFR [...] MD LAB BLOOD ORDERABLE S Final Result [facility] ([place]) 1 [facility] Department [place] [address] * (ABNORMAL) Differential, auto (01/07/2025 8:40 AM [...] S Final Result JEFF [facility] ([place]) 1 [facility] [place] [address] * (ABNORMAL) CBC with auto differential (01/07/2025 [...] RDW CV 13.3 11.1 - 14.9 % [facility] ([place]) RDW SD 41.5 35.7 - 48.1 fL [facility] ([place]) NRBC abs 0.00 0.00 - 0.01 K/cumm [facility] ([place]) Blood 01/07/2025 8:40 AM CDT 01/07/2025 8:45 AM CDT Jt Zacarias MD LAB BLOOD ORDERABLE S Final Result [facility] ([place]) 1 [facility] [place] [employer] [place] [address] * Magnesium (01/07/2025 8:40 AM CDT) Pathologist [facility] Magnesium 1.7 1.4 - 2.5 mg/dL Blood 01/07/2025 8:40 AM CDT 01/07/2025 9:44 AM CDT Jt Zacarias MD LAB BLOOD ORDERABLE S Final Result Performing Organization Address City/[facility] Co de Phone Number [facility] ([place]) 1 [facility] [place] [address] * (ABNORMAL) Comprehensive metabolic panel (01/07/2025 8:40 AM CDT) Sodium 138 135 - 145 mmol/L Potassium, pl 3.4 3.3 - 4.9 mmol/L [facility] ([place]) Chloride 102 97 - 110 mmol/L [facility] ([place]) CO2 20(L) 22 - 32 mmol/L [facility] ([place]) Anion gap 16(H) 2 - 15 mmol/L [facility] ([place]) BUN 11 6 - 25 mg/dL [facility] ([place]) Creatinine 0.79(L) 0.80 - 1.30 mg/dL [facility] ([place]) Glucose 248(H) 70 - 199 mg/dL [facility] ([place]) Comment: Interpretive Data Fasting [...] S Final Result JEFF [facility] ([place]) 1 [facility] [place] [address] * ECG 12 lead (01/07/2025 8:39 AM CDT) 01/07/2025 8:39 AM CDT Narrative [facility] - 01/07/2025 9:28 AM CDT Vent Rate: 91 bpm RR Interval: 654 msec [place] Interval: 238 msec QRS Duration: 111 msec QT Interval: 394 msec QTC Interval: 443 msec P-R-T [place]: 7 - 132 - 71 degrees IMPRESSION: SINUS RHYTHM WITH FIRST DEGREE AV BLOCK INCOMPLETE RIGHT BUNDLE BRANCH BLOCK [90+ ms QRS DURATION, TERMINAL R IN V1/V2, 40+ ms S IN I/aVL/V4/V5/V6] POSSIBLE RIGHT VENTRICULAR HYPERTROPHY [SOME/ALL OF: PROMINENT R IN V1, LATE TRANSITION, RAD, BETO, SSS] ABNORMAL ECG no change from prior EKG Electronically Signed By: Jose Godoy MD us tJ Zacarias MD ECG ORDERABLES Fin al Result [facility] * XR Chest Pa Lateral [...] Electronically signed by Meir Ascencio M.D. KT: [place] Report ID: [id number] Reading Location: [id number] Procedure Note Meir Ascencio MD - 01/01/2025 [...] Meir Ascencio M.D. KT: KT Report ID: [id number] Reading Location: [place] [address] us Nayely Sharp ENTRY TABLE OPERATOR IMG XR PROCEDURES Fin al Result * [...] by: Vick Cruz M.D. us Jose Vega ENTRY TABLE OPERATOR IMG XR PROCEDURES Final Res ult * [...] and children were not included. (Diabetes Care 31:2039-7899, 2008). The eAG is not equivalent to a fasting glucose. Blood 12/18/2024 5:56 AM CDT 12/18/2024 6:01 AM CDT Jose Vega NP LAB BLOOD ORDERABLES Final Result Performing Organization Address [facility] de Phone Number [facility] [address] Department [employer] [place], [place] [id number] * (ABNORMAL) Albumin Creatinine Ratio, Urine (04/01/2024 11:09 AM CDT) Albumin Ur 19.5 mg/L Comment: Interpretive Data No reference range established. Current interpretive data was last revised 2019. Creatinine Ur 60.3 mg/dL [facility] Comment: Interpretive Data No reference range established. Current interpretive data was last revised 2019. Albumin Creatinine Ratio, Ur 32(H) 1 - 29 mg/g JEFF Urine 04/01/2024 11:0 9 AM CDT 04/01/2024 5:29 PM CDT Alireza Clark MD LAB URINE ORDERABLES Final Resul t Performing Organization Address [facility] Co de Phone Number SAMANTHAROGER [address] [address] Department [place] [place] [address] * (ABNORMAL) Lipid panel (04/01/2024 11:09 AM [...] BLOOD ORDERABLES Final Resul t JEFF BRODERICK [address] [address] [place] [address] from Last 3 Months or Most Recently Relevant to Health Maintenance Insurance MEDICARE 51 Auto FOR LIFE [facility] MEDICARE ADVANTAGE FOR LIFE [facility] MEDICARE ADVANTAGE Advance Directives For more information, please contact: [phone] * Full Code (Latest Code Status on File) Date Activated Date Inactivated Comments 01/07/2025 1:12 PM 01/11/2025 11:13 PM * Full Code Date Activated Date Inactivated Comments 12/14/2024 5:54 PM 12/21/2024 8:28 PM * Full Code Date Activated Date Inactivated Comments 06/18/2024 3:52 PM 06/19/2024 10:57 PM * Full Code Date Activated Date Inactivated Comments 02/11/2024 3:49 PM 02/12/2024 6:22 PM Care Teams Stenographic Court Reporter Relationship Specialty Start Date End Date Maryann Jiménez DO PCP - General Family Medicine 07/03/22 Jose David Betancourt MD [address] [address] Consulting Physician Urology 06/19/24 Ty Lamb MD [address] [address] Surgeon Cardiothoracic Surgery 12/21/24 Jatinder Jones MD [address] [place] [address] Consulting Physician Cardiology 12/21/24 Miscellaneous, Not In File 12/21/24
--- OUTSIDE RECORDS SUMMARY | 2025-03-28 19:56 | XMS_ITS | Data Portability ---
Author Organization [facility] Address [address] [place] [address] Assessment Encounter Date Assessment Date Assessment LastModified [...] blood 2022 023 JULIO [facility], [address] [place], [address], 3 16:11:43 microalbumi n/creatinin e, mass ratio, urine 2022 023 JULIO [facility], [address] [place], [address], 3 16:11:38 CBC w/ auto diff 2022 023 JULIO [facility], [address] [place], [address], 3 16:11:28 CMP, serum or plasma 2022 023 JULIO [facility], [address] [facility] [place], [address], 3 16:11:32 lipid panel, serum 2022 023 JULIO [facility], [address] [facility] [place], [address], 3 16:11:36 testosteron e, free + total, serum 2022 023 [email or web address] [facility], [address] [facility] [place], [address], 3 09:37:09 vitamin B12 + folate, serum or blood 2022 023 JULIO [facility], [address] [place], [address], 3 16:11:39 PSA, total, serum or plasma 2022 023 JULIO [facility], [address] [place], [address], 3 16:11:44 Hepatitis C IgG Ab, qual, serum 2022 023 JULIO [facility], [address] [place], [address], 3 16:11:40 TSH + free T4, serum 2022 023 [place] [facility], [address] [place], [address], 3 16:11:24 Referral endocrinolo gy referral 2022 023 [facility] Not available 4 14:16:57 rheumatolog ist referral 2022 023 [facility] Fernandez Vicente MD, [address] [place], [address], 4 13:54:02 cardiologis t referral 2022 023 [email or web address] Cierra GRACE, [address] [place], [address], 3 12:34:41 hand surgeon referral - Pls call Pt to [facility]. Thank you 2022 023 eric [facility], [address], [place], [address], 4 08:32:44 physical therapist referral - Pls call pt to shaun Thank you Pt completed R rotator cuff repair in [facility] on July 03 2023. Needing PT twice a week for 4 weeks. 2022 023 JULIO [facility], [address], [address], [place], [address], 3 09:18:52 Procedures None recorded. Surgeries None recorded. Imaging electrocard iogram 2023 024 [facility], [address], [place], [address], 4 09:10:04 Medication Orders None recorded. Patient TargetsNo targets recorded. Patient Instructions Encounter Date Encounter Id Patient Instructions Last Modified By Organization Details Last Modified Time 08/13/2023 [id number] advance care planning: care instructions Not available [...] healthy habits in these areas. Please visit [email or web address] ence for a listing of available resources. If you have any further questions or concerns regarding the above areas of your health, please discuss at your next primary care visit or, for more urgent concerns, call us at [address] [place] [address] ([phone]) to schedule an appointment. [email or web address] Not available 08/02/2023 11:39:51 08/19/2023 [id number] gastroesophageal reflux disease (GERD): care instructions [email or web address] Not available 08/19/2023 15:30:26 influenza (flu) vaccine: care instructions [email or web address] Not available 08/19/2023 15:30:26 hypothyroidism: care instructions [email or web address] Not available 08/19/2023 14:29:32 During your most recent Annual Preventive Visit, we discussed concerns with balance (fall preventive), bladder control (including leaking of urine) and the importance of adequate exercise and physical activity. If anything has changed or you wish to investigate other supportive programs and services available to help you develop or maintain healthy habits in these areas, please visit [email or web address] ence for a listing of available resources. If you have any further questions or concerns regarding fall prevention/balance, bladder/urine leakage or exercise, please discuss at your next primary care visit or, for more urgent concerns, call us at [address] [place] [address] ([phone]) to schedule an appointment. Not available 08/16/2023 10:31:40 Reason for Referral Physical Therapist Referral for Postoperative care Pls call pt to [facility] Thank you Pt completed R rotator cuff repair in [facility] on July 03 2023. Needing PT twice a week for 4 weeks. Referring Physician: Vish Fields [facility], Encounter Date: 08/13/2023 Hand Surgeon Referral for Pa in in right thumb Pls call Pt to [facility]. Thank you Referring Physician: [facility], Encounter Date: 08/13/2023 Endocrinology Referral for T ype 2 diabetes mellitus Referring Physician: Harshil Jiang [facility], Encounter Date: 08/19/2023 Family Sociologist Referral for Psoriatic arthritis Referring Physician: Harshil Jiang [facility], Encounter Date: 08/19/2023 Palm Gatherer Referral for Ca rdiac pacemaker in situ Referring Physician: Harshil Jiang [facility], Encounter Date: 08/19/2023 Results Created Date Observation Date Name Description Value Unit Range Abnormal Flag Note LastModifiedBy Organization Detail LastModifiedTime 08/13/20 23 08/13/2023 maureen buckley* Unknown Analyte normal Not Available [facility] [address] [place], [address], 08/02/2023 11:39:59 08/13/20 23 08/13/2023 heari ng scree ina* Unknown Analyte normal Not Available [facility] [address] [place] [address], [phone], 08/02/2023 11:39:59 08/13/20 23 08/13/2023 heari ng scree ina* Unknown Analyte normal Not Available [facility] [address] [place], [address], 08/02/2023 11:39:59 08/13/20 23 08/13/2023 heari ng scree ina* Unknown Analyte normal Not Available [facility] [address] [place] [address], [address], 08/02/2023 11:39:59 08/13/20 23 08/13/2023 heari ng scree ina* Unknown Analyte normal Not Available [facility] [address] [place] [address], [phone], 08/02/2023 11:39:59 08/13/20 23 08/13/2023 heari ng scree ina* Unknown Analyte normal Not Available [facility] [address] [place] [address], [address], 08/02/2023 11:39:59 08/13/20 23 08/13/2023 heari ng scree ina* Unknown Analyte abnorm al Not Available [facility] [address] [place] [address], [phone], 08/02/2023 11:39:59 08/13/20 23 08/13/2023 heari ng scree ina* Unknown Analyte abnorm al Not Available [facility] [address] [place] [address], [address], 08/02/2023 11:39:59 08/14/20 23 08/15/2023 TSH+F REE T4 TSH 2.970 uIU/m L 0.450- 4.500 Not Available [facility] ([facility]) [address] [place], [address], 08/15/2023 16:11:23 08/14/20 23 08/15/2023 TSH+F REE T4 T4,free(dire ct) 1.32 NG/dL 0.82-1 .77 Not Available [facility] ([facility]) [address] [place], [address], 08/15/2023 16:11:23 08/14/20 23 08/15/2023 CBC WITH DIFFE RENTI AL/PL ATELE T WBC 7.6 x10e3 /uL 3.4-10 .8 Not Available [facility] ([facility]) [address] [place], [address], 08/15/2023 16:11:27 08/14/20 23 08/15/2023 CBC WITH DIFFE RENTI AL/PL ATELE T RBC 5.40 x10e6 /uL 4.14-5 .80 Not Available [facility] ([facility]) [address] [place], [address], 08/15/2023 16:11:27 08/14/20 23 08/15/2023 CBC WITH DIFFE RENTI AL/PL ATELE T hemoglobin 16.0 g/dL 13.0-1 7.7 Not Available [facility] ([facility]) [address] [place], [address], 08/15/2023 16:11:27 08/14/20 23 08/15/2023 CBC WITH DIFFE RENTI AL/PL ATELE T hematocrit 45.5 % 37.5-5 1.0 Not Available [facility] ([facility]) [address] [place], [address], 08/15/2023 16:11:27 08/14/20 23 08/15/2023 CBC WITH DIFFE RENTI AL/PL ATELE T MCV 84 fL 79-97 Not Available [facility] ([facility]) [address] [facility], [place], [address], 08/15/2023 16:11:27 08/14/20 23 08/15/2023 CBC WITH DIFFE RENTI AL/PL ATELE T MCH 29.6 pg 26.6-3 3.0 Not Available [facility] ([facility]) [address] [facility], [place], [address], 08/15/2023 16:11:27 08/14/20 23 08/15/2023 CBC WITH DIFFE RENTI AL/PL ATELE T MCHC 35.2 g/dL 31.5-3 5.7 Not Available [facility] ([facility]) [address] [facility], [place], [address], 08/15/2023 16:11:27 08/14/20 23 08/15/2023 CBC WITH DIFFE RENTI AL/PL ATELE T RDW 12.9 % 11.6-1 5.4 Not Available [facility] ([facility]) [address] [facility], [place], [address], 08/15/2023 16:11:27 08/14/20 23 08/15/2023 CBC WITH DIFFE RENTI AL/PL ATELE T platelets 254 x10e3 /uL 150-45 0 Not Available [facility] ([facility]) [address] [facility], [place], [address], 08/15/2023 16:11:27 08/14/20 23 08/15/2023 CBC WITH DIFFE RENTI AL/PL ATELE T neutrophils 62 % not estab. Not Available [facility] ([facility]) [address] [facility], [place], [address], 08/15/2023 16:11:27 08/14/20 23 08/15/2023 CBC WITH DIFFE RENTI AL/PL ATELE T lymphs 27 % not estab. Not Available [facility] ([facility]) [address] [facility], [place], [address], 08/15/2023 16:11:27 08/14/20 23 08/15/2023 CBC WITH DIFFE RENTI AL/PL ATELE T monocytes 8 % not estab. Not Available [facility] ([facility]) [address] [facility], [place], [address], 08/15/2023 16:11:27 08/14/20 23 08/15/2023 CBC WITH DIFFE RENTI AL/PL ATELE T eos 2 % not estab. Not Available [facility] ([facility]) [address] [facility], [place], [address], 08/15/2023 16:11:27 08/14/20 23 08/15/2023 CBC WITH DIFFE RENTI AL/PL ATELE T basos 1 % not estab. Not Available [facility] ([facility]) [address] [facility], [place], [address], 08/15/2023 16:11:27 08/14/20 23 08/15/2023 CBC WITH DIFFE RENTI AL/PL ATELE T immature cells VENEER SANDER Not Available [facility] ([facility]) [address] [facility], [place], [address], 08/15/2023 16:11:27 08/14/20 23 08/15/2023 CBC WITH DIFFE RENTI AL/PL ATELE T neutrophils (absolute) 4.8 x10e3 /uL 1.4-7. 0 Not Available [facility] ([facility]) [address] [facility], [place], [address], 08/15/2023 16:11:27 08/14/20 23 08/15/2023 CBC WITH DIFFE RENTI AL/PL ATELE T lymphs (absolute) 2.0 x10e3 /uL 0.7-3. 1 Not Available [facility] ([facility]) [address] [facility], [place], [address], 08/15/2023 16:11:27 08/14/20 23 08/15/2023 CBC WITH DIFFE RENTI AL/PL ATELE T monocytes(ab solute) 0.6 x10e3 /uL 0.1-0. 9 Not Available [facility] ([facility]) [address] [facility], [place], [address], 08/15/2023 16:11:27 08/14/20 23 08/15/2023 CBC WITH DIFFE RENTI AL/PL ATELE T eos (absolute) 0.1 x10e3 /uL 0.0-0. 4 Not Available [facility] ([facility]) [address] [facility], [place], [address], 08/15/2023 16:11:27 08/14/20 23 08/15/2023 CBC WITH DIFFE RENTI AL/PL ATELE T baso (absolute) 0.1 x10e3 /uL 0.0-0. 2 Not Available [facility] ([facility]) [address] [facility], [place], [address], 08/15/2023 16:11:27 08/14/20 23 08/15/2023 CBC WITH DIFFE RENTI AL/PL ATELE T immature granulocytes 0 % not estab. Not Available [facility] ([facility]) [address] [place], [address], 08/15/2023 16:11:27 08/14/20 23 08/15/2023 CBC WITH DIFFE RENTI AL/PL ATELE T immature grans (abs) 0.0 x10e3 /uL 0.0-0. 1 Not Available [facility] ([facility]) [address] [place], [address], 08/15/2023 16:11:27 08/14/20 23 08/15/2023 CBC WITH DIFFE RENTI AL/PL ATELE T NRBC VENEER SANDER Not Available [facility] ([facility]) [address] [facility], [place], [address], 08/15/2023 16:11:27 08/14/20 23 08/15/2023 CBC WITH DIFFE RENTI AL/PL ATELE T hematology comments: VENEER SANDER Not Available [facility] ([facility]) [address] [facility], [place], [address], 08/15/2023 16:11:27 08/14/20 23 08/15/2023 COMP. METAB OLIC PANEL (14) glucose 154 mg/dL 70-99 above high normal Not Available [facility] ([facility]) [address] [facility], [place], [address], 08/15/2023 16:11:32 08/14/20 23 08/15/2023 COMP. METAB OLIC PANEL (14) BUN 13 mg/dL 8-27 Not Available [facility] ([facility]) [address] [facility], [place], [address], 08/15/2023 16:11:32 08/14/20 23 08/15/2023 COMP. METAB OLIC PANEL (14) creatinine 0.77 mg/dL 0.76-1 .27 Not Available [facility] ([facility]) [address] [facility], [place], [address], 08/15/2023 16:11:32 08/14/20 23 08/15/2023 COMP. METAB OLIC PANEL (14) eGFR 95 mL/mi n/1.7 3 >59 Not Available [facility] ([facility]) [address] [facility], [place], [address], 08/15/2023 16:11:32 08/14/20 23 08/15/2023 COMP. METAB OLIC PANEL (14) BUN/creatini ne ratio 17 10-24 Not Available [facility] ([facility]) [address], [place], [address], 08/15/2023 16:11:32 08/14/20 23 08/15/2023 COMP. METAB OLIC PANEL (14) sodium 143 mmol/ L 134-14 4 Not Available [facility] ([facility]) [address], [place], [address], 08/15/2023 16:11:32 08/14/20 23 08/15/2023 COMP. METAB OLIC PANEL (14) potassium 3.6 mmol/ L 3.5-5. 2 Not Available [facility] ([facility]) [address], [place], [address], 08/15/2023 16:11:32 08/14/20 23 08/15/2023 COMP. METAB OLIC PANEL (14) chloride 102 mmol/ L 96-106 Not Available [facility] ([facility]) [address], [place], [address], 08/15/2023 16:11:32 08/14/20 23 08/15/2023 COMP. METAB OLIC PANEL (14) carbon dioxide, total 25 mmol/ L 20-29 Not Available [facility] ([facility]) [address] [facility], [place], [address], 08/15/2023 16:11:32 08/14/20 23 08/15/2023 COMP. METAB OLIC PANEL (14) calcium 9.4 mg/dL 8.6-10 .2 Not Available [facility] ([facility]) [address] [facility], [place], [address], 08/15/2023 16:11:32 08/14/20 23 08/15/2023 COMP. METAB OLIC PANEL (14) protein, total 6.9 g/dL 6.0-8. 5 Not Available [facility] ([facility]) [address] [facility], [place], [address], 08/15/2023 16:11:32 08/14/20 23 08/15/2023 COMP. METAB OLIC PANEL (14) albumin 4.2 g/dL 3.8-4. 8 Not Available [facility] ([facility]) [address], [place], [address], 08/15/2023 16:11:32 08/14/20 23 08/15/2023 COMP. METAB OLIC PANEL (14) globulin, total 2.7 g/dL 1.5-4. 5 Not Available [facility] ([facility]) [address], [place], [address], 08/15/2023 16:11:32 08/14/20 23 08/15/2023 COMP. METAB OLIC PANEL (14) A/G ratio 1.6 1.2-2. 2 Not Available [facility] ([facility]) [address], [place], [address], 08/15/2023 16:11:32 08/14/20 23 08/15/2023 COMP. METAB OLIC PANEL (14) bilirubin, total 0.5 mg/dL 0.0-1. 2 Not Available [facility] ([facility]) [address], [place], [address], 08/15/2023 16:11:32 08/14/20 23 08/15/2023 COMP. METAB OLIC PANEL (14) alkaline phosphatase 92 IU/L 44-121 Not Available [facility] ([facility]) [address], [place], [address], 08/15/2023 16:11:32 08/14/20 23 08/15/2023 COMP. METAB OLIC PANEL (14) AST (SGOT) 13 IU/L 0-40 Not Available [facility] ([facility]) [address] [facility], [place], [address], 08/15/2023 16:11:32 12/13/20 23 08/15/2023 COMP. METAB OLIC PANEL (14) ALT (SGPT) 13 IU/L 0-44 Not Available [facility] ([facility]) [address] [facility], [place], [address], 08/15/2023 16:11:32 08/14/20 23 08/15/2023 LIPID PANEL cholesterol, total 115 mg/dL 100-19 9 Not Available [facility] ([facility]) [address] [facility], [place], [address], 08/15/2023 16:11:36 08/14/20 23 08/15/2023 LIPID PANEL triglyceride s 101 mg/dL 0-149 Not Available [facility] ([facility]) [address] [facility], [place], [address], 08/15/2023 16:11:36 08/14/20 23 08/15/2023 LIPID PANEL HDL cholesterol 27 mg/dL >39 below low normal Not Available [facility] ([facility]) [address] [facility], [place], [address], 08/15/2023 16:11:36 08/14/20 23 08/15/2023 LIPID PANEL VLDL cholesterol [place] 19 mg/dL 5-40 Not Available [facility] ([facility]) [address] [facility], [place], [address], 08/15/2023 16:11:36 08/14/20 23 08/15/2023 LIPID PANEL LDL chol calc ([facility]) 69 mg/dL 0-99 Not Available [facility] ([facility]) [address] [facility], [place], [address], 08/15/2023 16:11:36 08/14/20 23 08/15/2023 LIPID PANEL comment: VENEER SANDER Not Available [facility] ([facility]) [address] [facility], [place], [address], 08/15/2023 16:11:36 08/14/20 23 08/15/2023 ALBUM IN/CR EAT RATIO , RANDO M UR creatinine, urine 64.3 mg/dL not estab. Not Available [facility] ([facility]) [address] [facility], [place], [address], 08/15/2023 16:11:38 08/14/20 23 08/15/2023 ALBUM IN/CR EAT RATIO , RANDO M UR albumin, urine 16.5 ug/mL not estab. Not Available [facility] ([facility]) [address] [facility], [place], [address], 08/15/2023 16:11:38 08/14/20 23 08/15/2023 ALBUM IN/CR EAT RATIO , RANDO M UR alb/creat ratio 26 mg/g_ creat 0-29 Karin l: 0 - 29 Moder ately incre ased: 30 - 300 Sever burton incre ased: >300 Not Available [facility] ([facility]) [address] [facility], [place], [address], 08/15/2023 16:11:38 08/14/20 23 08/15/2023 VITAM IN B12 AND FOLAT E vitamin B12 677 pg/mL 232-12 45 Not Available [facility] ([facility]) [address] [facility], [place], [address], 08/15/2023 16:11:39 08/14/20 23 08/15/2023 VITAM IN B12 AND FOLAT E folate (folic acid), serum >20.0 NG/mL >3.0 A serum folat e santosh ntrat ion of less than 3.1 ng/mL is consi dered to repre sent clini [place] defic iency . Not Available [facility] ([facility]) [address] [facility], [place], [address], 08/15/2023 16:11:39 08/14/20 23 08/15/2023 HCV ANTIB DAIN RFX TO QUANT PCR HCV Ab NON REACTI VE non reacti ve Not Available [facility] ([facility]) [address] [facility], [place], [address], 08/15/2023 16:11:40 08/14/2008/15/2023 HCV ANTIB DAIN RFX TO QUANT PCR interpretati on: COMMEN T Not infec lino with HCV unles s early or acute infec tion is suspe cted (whic h may be delay ed in an immun ocomp romis ed indiv idual ), or other evide nce exist s to indic ate HCV infec tion. Not Available [facility] ([facility]) [address] [facility], [place], [address], 08/15/2023 16:11:40 08/14/20 23 08/15/2023 HEMOG LOBIN A1C hemoglobin A1C 9.0 % 4.8-5. 6 above high normal Predi abete s: 5.7 - 6.4 Diabe andrea: >6.4 Glyce sharmila contr ol for adult s with diabe andrea: <7.0 Not Available [facility] ([facility]) [address] [facility], [place], [address], 08/15/2023 16:11:43 08/14/2008/15/2023 PROST ATE-S PECIF IC [...] malig nant disea se. Not Available [facility] ([facility]) [address], [place], [address], 08/15/2023 16:11:44 08/13/20 23 arter ial study , non-i nvasi ve physi ologi c, extre mity No observ ation record ed. [email or web address] Not Available 2022 10:38:26 09/05/19 24 09/03/2023 elect nicolejoleen diogr am No observ ation record ed. [email or web address] [facility] [address] [facility] [address], [place], [address], 09/05/2023 09:10:08 Result Notes None recorded. Problems Name Problem SNOMED Code Status Onset Date Resolution Date Notes Provider Name and Address Organization Details Recorded Time Peripheral vascular disease 989014434 Active 2022 Donn Cohen null, [place] [facility] 3 10:41:55 Gastroesop hageal reflux disease 198815509 Active 2022 [facility] [place] [facility] 3 10:42:34 Morbid obesity 034938044 Active 2022 Donn Cohen null, [place] - [facility] 3 10:42:55 Body mass index 30+ - obesity 893998954 Active 2022 Donn [place] [facility] 3 10:42:57 Constipati on 63504329 Active 2022 Donn [place] - [facility] 3 10:43:04 Psoriatic arthritis 323838981 Active 2022 Donn [place] [facility] 3 10:45:10 Pain in right thumb 7742204627994 102 Active 2022 Donn [place] [facility] 3 10:45:17 Secondary immune deficiency disorder 02404156 Active 2022 Maryann Thao null, [place] - [facility] 3 11:03:29 Qualitativ e platelet disorder 744487119 Active 2022 Maryann Master null, [place] - [facility] 3 11:03:31 Type 2 diabetes mellitus 54888749 Active 2022 Maryann Master [place] [facility] 3 11:03:37 Cardiac pacemaker in situ 658226450 Active 2022 Maryann [place] null[place] - [facility] 3 11:03:42 Hypertensi ve disorder 83812905 Active 2022 Maryann Master null[place] - [facility] 3 11:03:45 Hyperlipid emia due to type 2 diabetes mellitus 0719739579323 02 Active 2022 Maryann Koppel [place] [facility] 3 11:03:47 Hypothyroi dism 20867260 Active 2022 Maryann [place] null[place] [facility] 3 11:03:49 Erectile dysfunctio n 790145698 Active 2022 Maryann Koppel null, [place] - [facility] 3 11:03:55 Vitamin D deficiency 84382363 Active 2022 Harshil Jiang, BEHZAD [address] [place], [address] , [place] - [facility] 3 15:30:13 Atheroscle rosis of coronary artery without angina pectoris 4021443566704 03 Active 2023 JOSE REYNOLDS [address] [place], [address] , [place] [facility] 4 15:18:04 Syncope and collapse 549778210 Active 2023 JOSE REYNOLDS [address] [place], [address] , [place] - [facility] 16:26:43 Problem Notes None recorded. Procedures Surgical History Date Name Laterality Status Provider Name and Address Organization Details Recorded Time 023 Phlebotomy Blood Draw completed Sangita Mcgill rd [place] - [facility] 08/14/2023 11:25:33 023 Preventative Visit Discussed with Patient completed Maryann [place] - [facility] 08/02/2023 11:39:55 023 Rotator cuff repair completed Donn Cohen [place] [facility] 08/13/2023 10:46:32 023 Colon Surgery [facility]ann Master [place] [facility] 08/13/2023 10:25:37 023 Colonoscopy completed Maryann [place] [facility] 08/13/2023 10:25:37 021 Hernia Repair completed Maryann Master [place] [facility] 08/13/2023 10:25:37 016 Hemorrhoidectomy completed Maryann Master [place] [facility] 08/13/2023 10:25:37 010 Stent Placement [facility] Master [place] [facility] 08/13/2023 10:25:37 010 Cardiac Catheterization completed Maryann Master [place] - [facility] 08/13/2023 10:25:37 010 Coronary Artery Stent completed Maryann Master [place] - [facility] 08/13/2023 10:25:37 000 Spine Surgery completed Maryann [place] - [facility] 08/13/2023 10:25:37 000 Head or Neck Surgery completed Maryann Master [place] - [facility] 08/13/2023 10:25:37 000 Eye Surgery completed Maryann [place] - [facility] 08/13/2023 10:25:37 999 [facility] 10:25:37 983 Pacemaker completed Maryann Gongppel [facility] 08/13/2023 10:25:37 Imaging Results None recorded. [...] Not Available Not Available Comfort EZ Pen [place] 32 gauge x 1/4 2020 active Not [...] Updated DateTime 4 170.18 cm 30.4 kg/m2 24989.9 2 g 81 /min 16 /min 97 % 97 % 135/81 mm[Hg] Wendi Gramajoer [place] - [facility] 4 15:13:39 Date Recorded Body weight Body mass index (BMI) Body height Body temperature Heart rate Oxygen saturation Oxygen saturation in Arterial blood by Pulse oximetry Systolic And Diastolic Provider Name and Address Organization Details Last Updated DateTime 3 73197.3 3 g 30.2 kg/m2 170.18 cm 97.2 [degF] 71 /min 98 % 98 % 139/72 mm[Hg] Maryann Thao [facility] 3 10:09:33 Date Recorded Body height Body mass index (BMI) Body weight Body temperature Oxygen saturation Oxygen saturation in Arterial blood by Pulse oximetry Heart rate Systolic And Diastolic Provider Name and Address Organization Details Last Updated DateTime 3 170.18 cm 30.4 kg/m2 11796.6 4 g 98 [degF] 98 % 98 % 78 /min 128/74 mm[Hg] Becka Payne [facility] 3 14:32:59 Social History Question Answer Notes LastModified by Organization Details LastModified Time Tobacco Smoking Status Former Smoker Maryann Thao [facility] 08/13/2023 10:25:31 Do You Have An Advance Directive? Yes Information not available 08/13/2023 What Is Your Level Of Caffeine Consumption? Occasional Coke Occasional Information not available 08/13/2023 What Type Of Diet Are You Following? DIABETIC Information not available 08/13/2023 What Is The Highest Grade Or Level Of School You Have Completed Or The Highest Degree You Have Received? [id number] Information not available 08/13/2023 How Many Days [...] Do You Have A Medical Power Of Template Maker? Yes Information not available 08/13/2023 How Many [...] 08/13/2023 Are you able to care for yourself independently? Yes Information not available 08/13/2023 What is [...] PF 3 completed Harshil Jiang, BEHZAD [address] [place], [address], [facility] 08/19/2023 15:29:24 Pneumococcal conjugate PCV20, polysaccharide RTX846 conjugate, adjuvant, PF 4 completed Vish Fields DO [address] [place], [address], [place] [facility] 09/22/2023 15:16:11 Past Encounters Encounter ID Performer Location Encounter Start Date Encounter Closed Date Diagnosis/Indication Diagnosis SNOMED-CT Code Diagnosis ICD10 Code Diagnosis Note [id number] Vish Fields DO [facility] [address] [place] [address] 08/13/2023 09:38:51 08/13/2023 14:11:03 Adult health examination 616621821 Z00.00 Routine Physical Examinatio n: => done [...] [birth year]): evaluated Medication review done 601822036 Z76.89 Advised to let us know if [...] of life for patients. Risk assessment done 928 945534 Z76.89 Environmen angel and social supports that [...] money. Advance di rective discussed with patient 535439970 Z71.89 Patient has advanced directives , will [...] with your [facility]. Hearing examination 0685 83650 Z01.10 The patient had a screening hearing exam today and the results were discussed. The patient will f/u with the Audiologis t as needed. Screening for malignant neoplasm of prostate 682884697 Z12.5 Guidelines and Recommenda tions discussed with patient. Pt verbalized understand ing. Will order PSA if clinically indicated or age appropriat e or if patient requests. Once levels received, Will address accordingl y and Will continue to monitor. Also see HPI. 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 Secondary immune deficiency disorder 02467367 D84.81 Patient with diabetes(a rosalee normal glucose floating in blood vessels), which increases the risk of infection. No fever or chills today.No evidence of any acute infection. Recommende d vaccines because of immunosupp ression have been offered and are up to date.Patie nt currently stable, will continue to follow. Qualitativ e platelet disorder 186867444 D69.1 The enzyme MADSEN-1 in the platelets [...] ASA therapy at this time. Postoperative care 81826 9007 Z48.89 Pt completed R rotator cuff repair in [facility] on July 03 2023. Needing PT twice a week for 4 weeks. Hypertensive disorder 38 514368 I10 Blood pressure: 139/72 mmHgPt advised to [...] .Will continue to Monitor. Peripheral vascular disease 875763147 I73.9 Quantaflo abnormal on 08/13/2023 Peripheral vascular [...] emia due to type 2 diabetes mellitus 5905496992 51933 E78.5 Pt advised to cut down on saturated fats. Explained that It causes atheroscle rosis and puts patient at risk of Heart attack, PVD, stroke and memory problems.S ee labs for LDL and HDL trend.- Pt is on Atorvastat in 40 mg tablet po daily.Will continue to follow by checking lipids regularly. Type 2 david betes mellitus 20544228 E11.21 DM-II 1) Routine labs ordered. 2) [...] voiced understand ing. Gastroesop hageal reflux disease 193341570 K21.9 Pt is on Omeprazole 40 mg [...] etc.Will continue to Monitor. Erectile dysfunction 860 708758 F52.21 Pt is on Tadalafil 10 mg tablet PRN. Will check current TRT levels. Will continue to follow. Hypothyroidism 61909974 E03.9 Will check TSHPt is on Levothyrox ine 100 mcg tablet po daily.Melonie ent is asymptomat ic without hair loss, heat/cold intoleranc es, significan t weight changes, f/u on thyroid function tests in 6 months. Body mass index 30+ - obesity 908317122 Z68.30 Patient counseled on saturated fat, avoiding [...] aquatic/po ol exercises/ walk and move arms appraisal specialist/la te evening 15 minutes twice a day up to 30 minutes twice a day. Emphasized that water resistance really helps.-- Patient encouraged to lose weight.-- Patient educated on the impact of BMI towards health.-- Patient to shop healthy/co ok in olive oil/eat colored leafy vegetables -- Patient to practice portion control/no t to exceed 1200 kcal-- Will continue to follow. Morbid obesity 082069103 E66.01 see above. Constipation 46099351 K5 9.00 Patient advised to take prune juicePatie nt to have increased fiber in his dietPatien t to increase hydrationw ill continue to Monitor. Psoriatic arthritis 1761 80224 L40.50 Psoriatic arthritis is a condition that [...] treatment. Treatment for psoriatic arthritis is usually continuous churn buttermaker. That's because even after symptoms get better, they sometimes return later on. Pain in right thumb 1439 696203 869020 M79.644 See HPI/PEwill refer to hand surgeon to further evaluateWi ll continue to follow Hepatitis C screening 41 9112467 Z11.59 CDC Recommenda tions for Hepatitis C Screening Among Adults in the [place]. [place] hepatitis C screening: Hepatitis C screening at least once in a lifetime for all adults aged 18 years and older, hepatitis C testing for baby boomer's (born 1945 to 1965).Paulo alatorre and Recommenda tions discussed with patient.Pt verbalized understand ing.Will screen Patient for Hepatitis C. Cardiac pa cemaker in situ 452786166 Z95.0 No function pacemaker. Will continue to follow. [id number] Vish [address] [address] 08/14/2023 09:15:54 08/18/2023 11:43:[id number] [address] 08/19/2023 14:14:12 08/19/2023 15:14:50 Hyperlipidemia due to type 2 diabetes mellitus 7314974282 36021 E78.5 LDL: 69HDL: 27Choleste rol: 115Continu e to take the statin at current dose.Will continue to follow. Hypothyroidism 91506039 E03.9 TSH: 2.97Contin ue current dose of Levothyrox ine.Will continue to follow. Type 2 david betes mellitus 99154452 E11.21 A1C: 9.0Glucose : 154All diabetic medication [...] walk daily.Pt voiced understand ing. Psoriatic arthritis 1665 24204 L40.50 Will refer to rheumatolo gy. Cardiac pa cemaker in situ 012936275 Z95.0 Refer to Cardiology May discuss status of pacemaker with cardiology Secondary immune deficiency disorder 96291904 D84.81 Immunosupp ression due to DM. The patient has a weakened immune system and should call if they are having any problems or infection Gastroesop hageal reflux disease 500923088 K21.9 Continue current PPI Qualitativ e platelet disorder 817451330 D69.1 The enzyme MADSEN-1 in the platelets [...] therapy at this time. Influenza vaccination given 8535218099 9109 Z23 Influenza vaccine given Vitamin D deficiency 347 11321 E55.9 check Vit D in six months [id number] Sadi Lozada MD [facility] [address] [address] 09/03/2023 14:58:15 09/03/2023 15:46:35 Cardiac pacemaker in situ 728539434 Z95.0 He had Medtronic pacemaker placed in [...] removal at this time. Hypertensive disorder 38 017016 I10 Controlled on exam today. Hyperlipid emia due to type 2 diabetes mellitus 8517358509 87355 E78.5 Lipid panel 08/14/23: TC 115, TG 101, HDL 27, LDL 69. On Atorvastat in 40mg. Type 2 david betes mellitus 16812884 E11.21 uncontroll ed. Atheroscle rosis of coronary artery without angina pectoris 4432767295 38349 I25.10 No angina reported. On ASA/statin . Stented co ronary artery 529651946 Z95.5 Stents to OM1x2 and RCA in 2009 Syncope and collapse 309 557154 R55 Thought to be vasovagal. He had both pacemaker (now non-functi onal) and ILR (at EOL) that did not reveal any arrhythmia s. No recurrence recently. [id number] Vish Fields DO [facility] [address] [place] [address] 09/19/2023 08:55:24 09/19/2023 09:43:58 Administration of pneumococcal vaccine 72214900 Z23 Health Concerns Section Related Observation LastModified by Organization Detai ls LastModified Time None Recorded Concern Status LastModified by Organization Details LastModified Time None Recorded Advance Directives Directive Y: Payers Insurance Date Sequence Insurance Name Policy Number Policy Frazier Covered Member ID Frazier Member ID Guarantor Name 09/26/2023 1 [facility] - CAPITATION PLAN - NO DRUG PLAN - REGIONAL PPO (MEDICARE REPLACEMENT/ ADVANTAGE - PPO) [id number] Ced Simone Mccracken [id number] Ced Malik Mccracken 10/27/2023 2 FOR LIFE ( - MEDICARE SUPPLEMENT) Ced Kaykay [id number] Ced Mccracken Notes Date Note Type Note Provider Name and Address Organization Details Recorded Time 08/13/2023 text/html ROS as noted in the HPI Patient is here for a New Patient [...] social history reviewed. Vish Fields DO [address] [place], [address], [facility] 08/13/2023 11:49:24 08/19/2023 text/html ROS as noted in the HPI Mr. Mccracken, a 73yo male, with chronic [...] Egg allergy: Immunosupression: Febrile seizures: Harshil Jiang, BUTTERMAKER CONTINUOUS CHURN [address] [place], [address], [facility] 08/19/2023 15:30:31 09/03/2023 text/html Mr. Mccracken is [...] and RCA in 2009 JOSE REYNOLDS [address] [place], [address], [facility] 09/03/2023 16:29:11 09/19/2023 text/html InjectionReporte d by PatientHPIFor patient presents today for injection, patient reportsprevnar 20. Vish Fields DO [address] [place], [address], [facility] 09/22/2023 15:16:14
--- OUTSIDE RECORDS SUMMARY | 2025-03-28 19:56 | XMS_ITS | Encounter Summary ---
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 Name Role Phone Maryann Jiménez DO Primary Care Provider + Jose David Betancourt MD Unavailable [phone] Ty Lamb MD Unavailable [phone] Jatinder Jones MD Unavailable [phone] Miscellaneous, Not In File Unavailable Unava ilable Encounter Details Date Type Department Care Team (Late st Contact Info) Description 01/25/2025 [facility] Post Discharge Follow up phone call [id number] [place] [address] Ariella Larsen Social History Tobacco [...] materials from doctor or pharmacy Never 01/27/2025 [facility] Utilities Answer Date Recorded In the [...] should administer the PHQ-9) 0 08/17/2024 [facility] - Occupational [...] any time in the past 12 m [facility], were you homeless or living in a half-way (including now)? No 01/11/2025 Personal Safety Answer Date Recorded Have you ever been in or are you currently in a harmful physical or emotional relationship or is someone making you feel afraid or unsafe? 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 Gender Identity Male 01/23/2020 12:25 AM CDT [...] on filedocumented in this encounter Care Teams Mineral Ore Processing Labourer Relationship Specialty Start Date End Date Maryann Jiménez DO PCP - General Family Medicine 07/03/22 Jose David Betancourt MD [address] [place] [address] Consulting Physician Urology 06/19/24 Ty Lamb MD [address] [facility] [address] [place] [address] Surgeon Cardiothoracic Surgery 12/21/24 Jatinder Jones MD [address] [place] [address] Consulting Physician Cardiology 12/21/24 Miscellaneous, Not In File 12/21/24 documented as of this encounter
--- OUTSIDE RECORDS SUMMARY | 2025-03-28 19:56 | XMS_ITS | Continuity of Care Document ---
Author Name [facility] Organization [facility] Care Team Providers Care Ships Equipment Engineer Name Role Phone [facility] Unavailable Unavailable Problems Combined list of problems from Department of Defense and Veterans Affairs facilities. It does not include entries that were removed or entered in error. Problem Status Onset Date Problem Type Date of Resolution Comments Source Hearing Loss, Sensorineural, Unspecified Active Condition [facility] Medications Combined list of outpatient medications from Department of [facility] and [facility] facilities.Medications provided include 1) outpatient medications from the last 15 months, and 2) patient-reported medications. Medication Details Route Status Patient Instructions Prescription Expires Prescription Number Last Dispense Date Ordering Provider Order Date Order Qty Source Alcohol Antiseptic (Alcohol Swabs Eq.) Pads 70% Topical For external use. 01/14/2025 [id number] 4 2023 200 [employer] [facility] [place] alcohol prep pad [100EA] See Instruct erin, [...] [employer] 3 ml SYRINGE Active [id number] 4 2023 15 Pharmac y Data Transac [...] use exactly as directed .Obtain advice for OTCs.Saamnta ck with your doctor before becoming . 01/14/2025 [id number] 4 2023 180 [facility] [place] metFORMIN XR 500 mg/24 hour tablet See [...] [employer] .5 ml SYRINGE Active [id number] 4 2023 6 Pharmac y Data Transac [...] Site Reaction Lot Number CVX Code Drug Picu Nurse Status Comments Source influenza, high-dose, quadrivalent 2020 ALUL, () Not Given influenza , high-dose , quadrival ent DoD influenza, high-dose, quadrivalent 2019 ALUL, () Not Given influenza , high-dose , quadrival ent [facility] Influenza, high dose seasonal 2018 ALUL, () Not Given Influenza , high dose seasonal DoD Influenza, seasonal, injectable, preservative free 2014 ALUL, () Not Given Influenza , seasonal, injectabl e, preservat stefany free [facility] Influenza, seasonal, injectable 2013 SARAH HENRY () Not Given Influenza , seasonal, injectabl e DoD Procedures Combined list of: 1) Procedures from Department of Veterans Affairs facilities going back up to thelast 18 months, not all [place] non-surgical procedures are included; 2) All procedures [...] Plan No data available for this section 03/29/2025 Ambulatory Pharmacy Functional Status Combined list of recent functional and cognitive assessments recorded at [facility] ([place] Functional [place] Measurement (FIM) Scale: 1 = Total Assistance (Subject = 0% +), 2 = Maximal Assistance (Subject = 25% +), 3 = Moderate Assistance (Subject = 50% +), 4 = Minimal Assistance (Subject = 75% +), 5 = Supervision, 6 = Modified [place] (Device), 7 = Complete [place] (Timely, Safely). Assessment Date/Time Source Assessment Type Assessment Skill Assessment Score Assessment Details No data available for this section
[2025-03-28 20:15] VITALS: BP 172/72; PULSE 83; RESP 16; TEMP 36.3; O2SAT 100
--- NOTE | 2025-03-28 21:11 | ED_ITS ---
HPI - Skin/Abscess/Foreign Bdy General Chief complaint: Extremity Injury, Upper Stated complaint: cyst that is leaking Time Seen by Provider: 03/28/25 21:02 History of Present Illness HPI narrative: A few days ago patient noticed a blackhead on as right arm, his doctor was going to try to remove the cyst however it seemed to have popped and started draining. No systemic symptoms. Related Data Home Medications ?Medication ?Instructions ?Recorded ?Confirmed ?Last Taken ?Type aspirin 81 mg tablet,delayed 81 mg PO QAM 08/10/19 03/16/25 11/16/24 06:00 History release (Adult Low Dose Aspirin) acetaminophen 500 mg capsule 1,000 mg PO Q6H PRN 01/14/25 03/16/25 Unknown History atorvastatin 40 mg tablet (Lipitor) 40 mg PO .QOD 01/14/25 03/16/25 Unknown History cholecalciferol (vitamin D3) 125 125 mcg PO DAILY 01/14/25 03/16/25 Unknown History mcg (5,000 unit) capsule cyanocobalamin (vitamin B-12) 500 500 mcg PO DAILY 01/14/25 03/16/25 Unknown History mcg tablet dulaglutide 3 mg/0.5 mL 3 mg subcut WEEKLY 01/14/25 03/16/25 Unknown History subcutaneous pen injector (Trulicity) furosemide 40 mg tablet 40 mg PO BID 01/14/25 03/16/25 Unknown History insulin degludec 100 unit/mL (3 20 unit subcut QHS 01/14/25 03/16/25 Unknown History mL) subcutaneous pen (Tresiba FlexTouch U-100 insulin) insulin lispro 100 unit/mL 1 sliding scale dose subcut 01/14/25 03/16/25 Unknown History subcutaneous pen (Humalog KwikPen USEASDIRECTD (U-100) Insulin) Allergies Allergy/AdvReac Type Severity Reaction Status Date / Time atropine Allergy Severe DECREASED Verified 03/16/25 11:46 HR meloxicam AdvReac Mild Dizziness Verified 03/16/25 11:46 Review of Systems Review of Systems: All systems reviewed & are unremarkable except as noted in HPI and below PMFSH Past Medical History Medical History Mixed hyperlipidemia XOCHITL (obstructive sleep apnea) TIA (transient ischemic attack) Colonic mass Hypertension Obesity CAD (coronary artery disease) Umbilical hernia without mention of obstruction or gangrene Symptomatic cholelithiasis Diabetes mellitus Cervical radiculopathy Esophageal reflux Essential (primary) hypertension Hypothyroidism, unspecified Male erectile dysfunction, unspecified Metabolic syndrome Primary generalized (osteo)arthritis Psoriatic arthropathy Type 2 diabetes mellitus with hyperglycemia Cardiac pacemaker Fusion of spine, cervical region Kidney stone Infective otitis externa of left ear History of cardiac monitoring Surgical History Surgical History Hx of CABG S/P lumbar laminectomy (~02/2024) Status post colon resection S/P laparoscopic colectomy laparoscopic sigmoid colectomy with colorectal anastomosis, da Yolanda assisted History of laparoscopic cholecystectomy 05/10/20 Hx of tonsillectomy Hx of LASIK Hx of LASIK H/O heart artery stent 3 stents 2009 Family History Family History Sibling Acute myocardial infarction Cerebrovascular accident Depression Carcinoma of colon Grandparent Diabetes mellitus Family history of cardiovascular disease Carcinoma of colon, Onset Age: 85 Father Hypertension Family history of cardiovascular disease Acute myocardial infarction, Onset Age: 72 Social History Social History Social History: Caffeine-daily Smoking packs per day: 1 Smoking cigarettes per day: 20.0 Years smoked: 9 Smoking pack-years: 9.00 Smoking status: Former smoker Tobacco type: cigarettes and pipe Second hand tobacco smoke exposure: No Smoking end date: 09/02/82 Alcohol intake: never Drinks per week: 1 Alcohol use details: Rarely Substance use: never Substance use type: does not use Do You Feel Safe in your Home?: Yes Lack of Transportation: No Lack of Food: Never True Current Housing: I Have Housing Concerned About Future Housing: No Difficulty Paying Gas/Electric Bills: No Difficulty Paying for Meds: No Currently Unemployed: No Education: Master's Degree or Higher Difficulty w/ Childcare or Family Care: No Living arrangements: with family Additional living arrangements comments: DAUGHTER Gender identity (if verbalized by the patient): Male Spiritual care concerns: No Exam Narrative: EXAMINATION OF ORGAN SYSTEMS/BODY AREAS: Constitutional: Vital signs per nursing GENERAL:[No acute distress, non-toxic appearing.] HEAD: Normal with no signs of head trauma. EYES: EOMI, conjunctiva normal ENT: Hearing grossly intact LUNGS: Nonlabored breathing. HEART: [Regular rate and rhythm] ABD: [Soft], [nontender to palpation] EXT: Normal range of motion SKIN: 1cm area R upper arm that is draining purulent discharge NEURO: [Alert and oriented x 3. No gross focal sensory or strength deficits.] PSYCH: Normal affect Course Vital Signs Vital signs: Vital Signs Temperature 97.4 F L 03/28/25 20:15 Pulse Rate 83 03/28/25 20:15 Respiratory Rate 16 03/28/25 20:15 Blood Pressure 172/72 H 03/28/25 20:15 Pulse Oximetry 100 03/28/25 20:15 Oxygen Delivery Room Air 03/28/25 20:15 Temperature 97.4 F L 03/28/25 20:15 Pulse Rate 83 03/28/25 20:15 Respiratory Rate 16 03/28/25 20:15 Blood Pressure 172/72 H 03/28/25 20:15 Pulse Oximetry 100 03/28/25 20:15 Oxygen Delivery Room Air 03/28/25 20:15 Procedures Abscess I/D upper extremity: Date of Incision: 03/29/25 Side (if applicable): right Technique: other (gentle pressure) Amount of fluid expressed (mL): 2 Packing used?: none MDM - Skin/Abscess/Foreign Bdy MDM Narrative Medical decision making narrative: MEDICAL DECISION MAKING AND COURSE IN THE ED WITH INTERPRETATION/REVIEW OF DIAGNOSTIC STUDIES: Patient presented to the ED with complaint of painful skin lesion. Vitals [were within acceptable limits]. Physical exam revealed area of tenderness and induration consistent with abscess, [with] fluctuance that may benefit from further drainage. Incision and drainage was performed here, verbal consent obtained and risks/benefits explained. Skin was cleaned and thankfully since there was already an area draining, no further incision needed, [2 cc] of purulent discharge was expressed. There was [minimal] bleeding, patient tolerated procedure [well]. Wound was left open to allow for further drainage. [Patient was given doxycycline here and a course to continue at home.] The patient is discharged home in stable condition. I have asked the patient to return to the emergency department for worsening pain, worsening and increasing size of skin infection, fevers/chills. The patient is instructed to follow up with [PCP] in [2] days. Patient verbalized understanding. Discharge Plan Discharge Clinical Impression: Infected cyst of skin, Abscess Patient Disposition: Home Condition: Stable Instructions: Abscess (ED) Additional Instructions: Please follow up with your doctor; take the antibiotics as prescribed. You can always return for any further issues especially if it gets better or if you feel sick or run a fever. Patient Language: [place] Prescriptions: New doxycycline hyclate 100 mg capsule 100 mg PO Q12H 7 Days Qty: 10 0RF No Action aspirin [Adult Low Dose Aspirin] 81 mg tablet,delayed release (DR/EC) 81 mg PO QAM (DME) lancets [FreeStyle Lancets] 28 gauge misc See Rx Instructions .Route Qty: 100 1RF Rx Instructions: As directed (DME) Freestyle InsuLinx Test Strips Strip See Rx Instructions .Route Qty: 100 2RF Rx Instructions: As directed eszopiclone [Lunesta] 2 mg tablet 2 mg PO QHS Qty: 1 0RF Rx Instructions: Take on night of sleep study Enbrel 50 mg/mL (1 mL) syringe 50 mg SUB-Q WEEKLY Qty: 13 0RF Rx Instructions: SUNDAYS sure click pen furosemide 40 mg tablet 40 mg PO BID insulin degludec [Tresiba FlexTouch U-100] 100 unit/mL (3 mL) insulin pen 20 unit subcut QHS acetaminophen 500 mg capsule 1,000 mg PO Q6H PRN atorvastatin [Lipitor] 40 mg tablet 40 mg PO .QOD cholecalciferol (vitamin D3) 125 mcg (5,000 unit) capsule 125 mcg PO DAILY cyanocobalamin (vitamin B-12) 500 mcg tablet 500 mcg PO DAILY insulin lispro [Humalog KwikPen Insulin] 100 unit/mL insulin pen 1 sliding scale dose subcut USEASDIRECTD Rx Instructions: 6-12 units, subcutaneous, 4 times daily Trulicity 3 mg/0.5 mL pen injector 3 mg subcut WEEKLY (DME) pen needle, diabetic 32 gauge x 5/32 needle See Rx Instructions .Route Qty: 450 3RF Rx Instructions: Use to inject insulin 5 times daily clopidogrel 75 mg tablet 75 mg PO DAILY Qty: 90 1RF finasteride 5 mg tablet 5 mg PO DAILY Qty: 90 1RF levothyroxine [Synthroid] 100 mcg tablet 100 mcg PO QAM Qty: 90 1RF losartan 25 mg tablet 25 mg PO DAILY Qty: 90 1RF omeprazole 40 mg capsule,delayed release(DR/EC) 40 mg PO DAILY Qty: 90 1RF metformin 1,000 mg tablet 1,000 mg PO DAILY Qty: 90 1RF potassium chloride [K-Tab] 20 mEq tablet extended release 20 meq PO DAILY Qty: 90 1RF metoprolol tartrate 25 mg tablet 12.5 mg PO BID Qty: 180 1RF alcohol swabs [BD Alcohol Swabs] Pads, Medicated See Rx Instructions topical .COMPLEX Qty: 200 2RF Rx Instructions: topically use to cleanse area before testing blood sugars 2-3 times daily; Follow-up/Referrals: Maryann Jiménez DO [Primary Care Provider] - 2 Days
--- OUTSIDE RECORDS SUMMARY | 2025-03-28 21:17 | XMS_ITS | Encounter Summary ---
Author Organization [facility] Address [address] [facility] [place] [address] Care Team Providers Care [employer] Buffer Name Role Phone Syl Mcadams MD Primary Care Provider [phone] Maryann Jiménez DO Primary Care Provider [phone] Reason for Visit * Reason Onset Date Comments MEDICATION REFILL 11/08/2020 Encounter Details Date Type Department Care Team (Late st Contact Info) Description 11/08/2020 Refill [facility] [address] [place] [address], [place] [address] Nico Jones MD [address] [place] [address] [place] [address] MEDICATION REFILL Social History Tobacco Use Types Packs/Day Years Used Date Smoking Tobacco: Passive Smo ke Exposure - Never Smoker Smokeless Tobacco: Never Alcohol Use Standard Drinks/Week Comments Yes 0 (1 standard drink = 0.6 oz pur e alcohol) occaisional Sex and Gender Information Value Date Recorded Sex Assigned at Not on file Legal Sex 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:48 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
--- OUTSIDE RECORDS SUMMARY | 2025-03-28 21:17 | XMS_ITS | Encounter Summary ---
Author Organization [facility] Address [address] [place] [id number] Care Team Providers Care Quill Cleaner Name Role Phone Syl Mcadams MD Primary Care Provider Syl Mcadams MD Primary Care Provider [phone] Miscellaneous, Not In File Primary Care Provider Unavailable Syl Mcadams MD Primary Care Provider [phone] Maryann Jiménez DO Primary Care Provider + Jose David Betancourt MD Unavailable [phone] Ty Lamb MD Unavailable [phone] Jatinder Jones MD Unavailable [phone] Miscellaneous, Not In File Unavailable Unava ilable Encounter Details Date Type Department Care Team (Late st Contact Info) Description 10/29/2016 Orders Only [facility] Provider, MD [address] [place] [address] Social History Tobacco Use Types Packs/Day Years Used Date Smoking Tobacco: Former Alcohol Use Standard Drinks/Week Comments Yes 0 (1 standard drink = 0.6 oz pur e alcohol) Sex and Gender Information Value Date Recorded Sex Assigned at Not on file 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 Gender Identity Male 01/23/2020 12:25 AM CDT [...] documented as of this encounter Care Teams Quill Cleaner Relationship Specialty Start Date End Date Syl Mcadams MD [address] [place] [address] PCP - General 11/30/16 01/21/17 Syl Mcadams MD [address] [place] [address] PCP - General 07/14/13 11/29/16 Miscellaneous, Not In File PCP - General 01/22/17 02/04/17 Syl Mcadams MD [address] [place] [address] PCP - General 02/05/17 07/02/22 Maryann Jiménez DO PCP - General Family Medicine 07/03/22 Jose David Betancourt MD [address] [facility] [address] [place] [address] Consulting Physician Urology 06/19/24 Ty Lamb MD [address] [facility] [address] [place] [address] Surgeon Cardiothoracic Surgery 12/21/24 Jatinder Jones MD [address] [facility] [address] [place] [address] Consulting Physician Cardiology 12/21/24 Miscellaneous, Not In File 12/21/24 documented as of this encounter
--- OUTSIDE RECORDS SUMMARY | 2025-03-28 21:17 | XMS_ITS | Encounter Summary ---
Author Organization [facility] Address [address] [facility] [facility] [place] [address] Care Team Providers Care Scheduler Conveyor Name Role Phone Unknown, Provider Primary Care Provider Unavaila ble Chai Giraldo MD Primary Care Provider [phone] Syl Mcadams MD Primary Care Provider [phone] Maryann Jiménez DO Primary Care Provider [phone] Encounter Details Date Type Department Care Team (Late st Contact Info) Description 01/02/2010 [facility] Liliana Owens MD [address] [facility] [address] [place] [address] Social History Tobacco Use Types Packs/Day Years Used Date Smoking Tobacco: Never Assessed Sex and Gender Information Value Date Recorded Sex Assigned at Not on file 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 Gender Identity Not on file Sexual Orientation Not on file documented as of this encounter Plan of Treatment Not on file documented as of this encounter Visit Diagnoses Not on filedocumented in this encounter Care Teams Scheduler Conveyor Relationship Specialty Start Date End Date Unknown, Provider PCP - General 02/27/10 01/19/14 Chai Giraldo MD [address] [place] [phone] PCP - General 12/24/17 04/28/18 Syl Mcadams MD [address] [place] [address] PCP - General 04/29/18 09/06/22 Maryann Jiménez DO [address] [facility] [address] [place] [address] PCP - General 09/07/22 documented as of this encounter
--- OUTSIDE RECORDS SUMMARY | 2025-03-28 21:18 | XMS_ITS | Encounter Summary ---
Author Organization [facility] Address [address] [facility] [place] [address] Care Team Providers Care Hospitality Manager Name Role Phone Unknown, Provider Primary Care Provider Unavaila ble Chai Giraldo MD Primary Care Provider [phone] Syl Mcadams MD Primary Care Provider [phone] Maryann Jiménez DO Primary Care Provider [phone] Encounter Details Date Type Department Care Team (Late st Contact Info) Description 03/03/2012 [facility] Liliana Owens MD [address] 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 Gender Identity Not on file Sexual Orientation Not on file documented as of this encounter Plan of Treatment Not on file documented as of this encounter Visit Diagnoses Not on filedocumented in this encounter Care Teams Hospitality Manager Relationship Specialty Start Date End Date Unknown, Provider PCP - General 02/27/10 01/19/14 Chai Giraldo MD [address] [place] [phone] PCP - General 12/24/17 04/28/18 Syl Mcadams MD [address] [place] [address] PCP - General 04/29/18 09/06/22 Maryann Jiménez DO [address] [facility] [address] [place] [address] PCP - General 09/07/22 documented as of this encounter
--- OUTSIDE RECORDS SUMMARY | 2025-03-28 21:18 | XMS_ITS | Referral Summary ---
Author Organization [facility] Address [address] [place] [address] Care Team Providers Care Cook Cashier Food Prep Name Role Phone Maryann Jiménez DO Primary Care Provider + Jose David Betancourt MD Unavailable [phone] yT Lamb MD Unavailable [phone] Jatinder Jones MD Unavailable [phone] Miscellaneous, Not In File Unavailable Unava ilable Encounters Date Type Department Care Team Description 03/26/2025 6:50 AM CDT Lab [facility] [address] [place] [address] Memory loss; Encounter for medical screening examination 03/25/2025 3:15 PM CDT Office [facility] [address] [facility] [address] [place] [address] Juany Teague MD Memory loss (Primary Dx); Encounter for medical screening examination 02/12/2025 Telephone [facility] Medical Group Cardiology [address] [facility] [address] [place] [address] Jatinder Jones MD 02/11/2025 Telephone [facility] [address] [facility] [address] [place] [address] Alireza Clark MD Med Refill 01/27/2025 10:30 AM CDT Home Care Visit [facility] Home Health [address] [place] [address] Lori Puckett SN OASIS DISCHARGE 01/26/2025 1:15 PM CDT Office Visit [facility] [id number] [place] [address] [address] [place] [address] Ty Lamb MD Coronary artery disease (CAD) excluded (Primary Dx) 01/25/2025 [facility] Post Discharge Follow up phone call [address] [address] Ariella Larsen 01/21/2025 10:30 AM CDT Home Care Visit [address] [place] [address] Lori Puckett SN HOME VISIT 01/18/2025 Telephone [facility] [address] [place] [address] [address] [place] [address] Alireza Clark MD 01/18/2025 9:30 AM CDT Home Care Visit [address] [place] [address] Lori Puckett SN HOME VISIT 01/14/2025 Plan of Care Documentation [address] [place] [address] 01/13/2025 12:30 PM CDT Home Care Visit [address] [place] [address] Kaitlynn Elizalde RN SN OASIS RESUMPTION OF CARE 01/12/2025 Orders Only [facility] Medical Group Cardiology [address] [facility] [address], [place] [address] Jatinder Jones MD Presence of cardiac pacemaker (Primary Dx); SSS (sick sinus syndrome) (HCC); Bradycardia 01/12/2025 Orders Only [facility] [address] [place] [address] [address] [place] [address] Jose Vega NP 01/07/2025 1:01 PM CDT - 01/11/2025 7:12 PM CDT Hospital Encounter [facility] [address] [place] [address] NovoseSindhu richards MD Munfakh, Nabil A., MD Brother, Michele, MD Rivera, Samantha, MD Cardiac tamponade (Primary Dx); Cervical myofascial pain syndrome; Syncope and collapse; Frailty syndrome in geriatric patient Discharge Disposition: Discharge to home, home health skilled care 01/08/2025 3:36 PM CDT Anesthesia Event [facility] Operating Room [address] [place] [address] Karen Tavarez DO Vuong, Peter Thuan, MD 01/08/2025 3:20 PM CDT - 01/08/2025 5:20 PM CDT Surgery [facility] Operating Room [address] [place] [address] Ty Lamb MD REPLACE PACEMAKER GENERATOR FROM ABDOMEN WITH FLUOROSCOPY 01/07/2025 Home Care Visit [address] [place] [address] Lori Puckett OASIS TRANSFER W/OUT DC 01/07/2025 12:18 PM CDT - 01/07/2025 11:59 PM CDT Hospital Encounter [facility] Emergency, Room R Discharge Disposition: Discharge to home or self care 01/07/2025 8:15 AM CDT - 01/07/2025 11:59 PM CDT Hospital Encounter [facility] Emergency, Room R Discharge Disposition: Discharge to home or self care 01/07/2025 8:28 AM CDT - 01/07/2025 12:14 PM CDT Emergency [facility] Emergency Department [address] [place] [address] Jt Zacarias MD Lo Bianco, Salvador, MD Cardiac tamponade (Primary Dx); Bradycardia; Heart block Discharge Disposition: Discharge to a short term hospital for IP 01/05/2025 [facility] Post Discharge Follow up phone call [address] [address] Ariella Larsen 01/05/2025 [facility] Post Discharge Follow up phone call [address] [phone] Ariella Larsen 01/05/2025 10:00 AM CDT Home Care Visit [address] [place] [address] [address] [place] [address] Lori Puckett SN HOME VISIT 01/01/2025 Results Follow-Up [facility]ient Care at [address] [place] [address] Nayely Sharp, MASSIMO XR Chest Pa Lateral 2 Views 01/01/2025 2:45 PM CDT - 01/01/2025 11:59 PM CDT Hospital Encounter [facility] Radiology - Outpatient Center at [address] [address] Acute cough Discharge Disposition: Discharge to home or self care 01/01/2025 Documentation [facility] [address] [place] [address] [address] [place] [address] Jose Vega, MASSIMO 01/01/2025 2:15 PM CDT Office Visit [facility] Care at [address] [place] [address] Nayely Sharp, MASSIMO Acute cough (Primary Dx) 01/01/2025 9:30 AM CDT Home Care Visit [place] [address] [address] [place] [address] Kristal Allen, TOÑO SN HOME VISIT 12/31/2024 Orders Only [facility] [address] [place] [address] [address] [place] [address] Jose Vega, MASSIMO 12/29/2024 Home Care Visit [place] [address] [address] [place] [address] Lori Puckett CARE CONFERENCE 12/29/2024 11:30 AM CDT Home Care Visit [place] [address] [address] [place] [address] Kristal Allen, TOÑO SN HOME VISIT 12/28/2024 Documentation [facility] [address] [place] [address] [address] [place] [address] Jose Vega NP 12/28/2024 12:00 PM CDT - 12/28/2024 11:59 PM CDT Hospital Encounter [facility] Diagnostic Imaging [address] [place] [address] S/P CABG (coronary artery bypass graft) Discharge Disposition: Discharge to home or self care 12/28/2024 Orders Only [facility] [address] [facility] [address] [place] [address] Jose Vega NP S/P CABG [...] tabletIndication s:hypothyroidism 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 T2DM with hyperglycemia with ferry terminal agent current use of insulin. 3 each 3 [...] are complete. Avoid live-vaccines unless reviewed with superintendent landfill operations first. 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 Restart Trulicity 3 mg weekly [...] and Trulicity Send me a message via [employer] every week, so we can look at [...] Overview (12/08/2016): Essential hypertension Coronary arteriosclerosis in [place] artery 09/28 Overview (12/08/2016): Coronary artery disease involving [place] coronary artery of [place] heart without angina pectoris Arthralgia of [...] materials from doctor or pharmacy Never 01/27/2025 [facility] Utilities Answer Date Recorded In the past 12 months has e [employer], oil, or water [employer] threatened to shut off services in your [...] often do you attend chur ch or congregation services? More than 4 times per year [...] staff should administer the PHQ-9) 0 08/17/2024 [facility] - Occupational Stress [...] any time in the past 12 m 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 Medical Devices Implanted Type Area Clinical Professor Device Identifier Shelf Expiration Date Model / Serial / Lot [employer]b V[employer] Active Fixation Steroid Eluting Latex Free Sterile Right Atrium Ventricle Ultipace 58cm [id number] - [id number] - [id number] Implanted:Qty: 1 on 01/08/2025 by Ty Lamb MD at [facility] Lead Left: Chest [employer] [id number] 09/01/2027 [id number] / [id number] / [employer] Active Fixation Steroid Eluting Latex Free Sterile Right Atrium Ventricle Ultipace 52cm Vpj1106/52 - [id number] - [id number] Implanted:Qty: 1 on 01/08/2025 by Ty Lamb MD at [facility] Lead Left: Chest [employer] [id number] 10/31/2027 [id number]/52 / [id number] / [employer] Assurity Mri 47o38sq 2 Chamber Is-1 Connector Thk6mm Pacemaker [id number] - [id number] - [id number] Implanted:Qty: 1 on 01/08/2025 by Ty Lamb MD at [facility] Pacemaker Left: Chest [employer] [id number] 06/01/2026 [id number] / [id number] / [employer] Liyah Ams 700 Kit Accessory Penile Prosthesis [id number] - [id number] Implanted:Qty: 1 on 06/18/2024 by Jose David Betancourt MD at [facility] N/A: Groin [employer]yah [id number] 04/08/2029 [id number] / / [id number] [employer] Ams Spectra 12/14mm .5cm Cylinder Concealable Malleable Rear Tip [id number] - [id number] Implanted:Qty: 1 on 06/18/2024 by Jose David Betancourt MD at [facility] N/A: Penis [employer] Liyah [id number] 02/15/2029 [id number] / / [id number] [employer]yah Ams 700 Preconnect 1 Ms Pump 2 Cylinder Penoscrotal Prosthesis [id number] - [id number] Implanted:Qty: 1 on 06/18/2024 by Jose David Betancourt MD at [facility] N/A: Penis [employer] Liyah [id number] 10/13/2025 [id number] / / [id number] [employer]ah Conceal Low Profile [place] 100ml Prosthesis Inhibizone Sterile Latex Free 489225-03 - [id number] Implanted:Qty: 1 on 06/18/2024 by Jose David Betancourt MD at [facility] Left: Pelvis [employer] Liyah [id number] 04/22/2026 133115-76 / / [id number] Procedures Procedure Name Priority Date/Time Associated Diagnosis [...] METABOLIC PANEL STAT 01/07/2025 4:45 PM CDT [facility] ARTL CATHJ/CANNULJ MNTR/TRANSFUSION SPX PRQ Routine 01/07/2025 [...] HIGH-SENSITIVITY 2-HOUR Timed 01/07/2025 10:28 AM CDT [facility] CRITICAL CARE ILL/INJURED PATIENT INIT 30-74 MIN [...] testing for HIV-1 RNA. Testing performed by: [address], [address] Blood 03/26/2025 6:55 AM CDT 03/26/2025 9:20 AM CDT Juany Teague MD LAB MICROBIOLOGY - GEN ERAL ORDERABLES Final Result JEFF [facility] [place] [address] [place] [address] [place] [address] * RPR Blood (03/26/2025 6:55 AM CDT) RPR Nonreactive Nonreactive Comment:Testing performed by : [facility], [address] [place] [address], [address] Blood 03/26/2025 6:55 AM CDT 03/26/2025 9:20 AM CDT Juany Teague MD LAB MICROBIOLOGY - GEN ERAL ORDERABLES Final Result [facility] ([place]) 1 [facility] [place] [address] * Folate (03/26/2025 6:55 AM CDT) [facility] Folic acid 14.5 >=5.0 ng/mL [facility] Blood 03/26/2025 6:55 AM CDT 03/26/2025 7:10 AM CDT Juany Teague MD LAB BLOOD ORDERABLES F inal Result JEFF [facility] ([place]) 1 [facility] [place] [address] * Vitamin B12 (03/26/2025 6:55 AM CDT) [facility] Vitamin B12 634 230 - 1,250 pg/mL [facility] ([place] Blood 03/26/2025 6:55 AM CDT 03/26/2025 7:10 AM CDT Juany Teague MD LAB BLOOD ORDERABLES F inal Result Performing Organization Address City/[facility]/ZIP Co de Phone Number JEFF [facility] ([place]) 1 [facility] [place] [address] * (ABNORMAL) POCT glucose (01/11/2025 1:21 PM CDT) [facility] Glucose, POC 220(H) 70 - 199 mg/dL POC Performer [id number] [facility] Blood 01/11/2025 1:21 PM CDT 01/11/2025 1:21 PM CDT Génesis Delatorre MD LAB POCT ORDERABLES - DEVICE Final Result Performing Organization Address City/[facility]/ZIP Co de Phone Number JEFF [address] Department [place] [address] * eGFR (01/11/2025 1:00 PM CDT) [facility] eGFR >90 >=60 mL/min/1. 73 m2 Comment: [...] Vega NP LAB BLOOD ORDERABLES Final Result [facility] [address] Department [place] [address] * (ABNORMAL) Renal function panel (01/11/2025 1:00 PM CDT) Sodium 141 135 - 145 mmol/L Potassium, pl 3.8 3.3 - 4.9 mmol/L [facility] Chloride 100 97 - 110 mmol/L [facility] CO2 27 22 - 32 mmol/L [facility] Anion gap 14 2 - 15 mmol/L [facility] BUN 16 6 - 25 mg/dL [facility] Creatinine 0.67(L) 0.80 - 1.30 mg/dL [facility] Glucose 198 70 - 199 mg/dL [facility] Comment: Interpretive Data Fasting glucose [...] 2022. Calcium 9.3 8.5 - 10.3 mg/dL [facility] Phosphorus, pl 2.8 2.3 - 4.5 mg/dL [facility] CH Albumin 3.6 3.5 - 5.0 g/dL [facility] Blood 01/11/2025 1:00 PM CDT 01/11/2025 1:00 PM CDT us Jose Vega NP LAB BLOOD ORDERABLES Final Result JE[facility] [place] [address] Department [place] [address] * eGFR (01/11/2025 9:11 AM CDT) eGFR [...] BLOOD ORDERABLES Final R esult [facility] [place] [address] [place] [address] * (ABNORMAL) CBC without differential [...] BLOOD ORDERABLES Final Result Performing Organization Address City/[facility]/ZIP Co de Phone Number JEFF [facility] [address] [place] [address] * (ABNORMAL) CBC without differential (01/11/2025 9:11 AM CDT) WBC 8.77 3.80 - 9.90 K/cumm Hgb 11.0(L) 13.0 - 17.5 g/dL [facility] Hct 36.3(L) 38.9 - 50.3 % [facility] Plt 258 150 - 400 K/cumm [facility] MPV 9.0(L) 9.1 - 12.3 fL [facility] RBC 4.17(L) 4.30 - 5.80 M/cumm [facility] MCV 87.1 81.3 - 96.4 fL [facility] MCH 26.4(L) 27.1 - 33.3 pg [facility] MCHC 30.3(L) 32.3 - 35.7 g/dL [facility] RDW CV 13.8 11.1 - 14.9 % [facility] RDW SD 44.1 35.7 - 48.1 fL [facility] NRBC abs 0.00 0.00 - 0.01 K/cumm [facility] Blood 01/11/2025 9:11 AM CDT 01/11/2025 1:02 PM CDT us Ty Lamb MD LAB BLOOD ORDERABLES Final R esult [facility] [address] Department [place] [address] * (ABNORMAL) Renal function panel (01/11/2025 9:11 AM CDT) Sodium 138 135 - 145 mmol/L Potassium, pl 3.7 3.3 - 4.9 mmol/L [facility] Chloride 98 97 - 110 mmol/L [facility] CO2 29 22 - 32 mmol/L [facility] Anion gap 11 2 - 15 mmol/L [facility] BUN 16 6 - 25 mg/dL [facility] Creatinine 0.67(L) 0.80 - 1.30 mg/dL [facility] Glucose 198 70 - 199 mg/dL [facility] Comment: Interpretive Data Fasting glucose [...] CH Albumin 3.7 3.5 - 5.0 g/dL [facility] Blood 01/11/2025 9:11 AM CDT 01/11/2025 1:02 PM CDT Ty Lamb MD LAB BLOOD ORDERABLES Final R esult Performing Organization Address City/[facility]/ZIP Co de Phone Number JE[facility] [address] [place] [address] * POCT glucose (01/11/2025 8:12 AM CDT) Glucose, POC 189 70 - 199 mg/dL POC Performer [id number] [facility] Blood 01/11/2025 8:12 AM CDT 01/11/2025 8:12 AM CDT Génesis Delatorre MD LAB POCT ORDERABLES - DEVICE Final Result Performing Organization Address [facility] Co de Phone Number SAMANTHAROGER [place] [address] Department [place] [address] * (ABNORMAL) POCT glucose (01/10/2025 9:34 PM CDT) Glucose, POC 250(H) 70 - 199 mg/dL POC Performer [id number] [facility] Blood 01/10/2025 9:34 PM CDT 01/10/2025 9:34 PM CDT Génesis Delatorre MD LAB POCT ORDERABLES - DEVICE Final Result Performing Organization Address [facility] Co de Phone Number JEFF [place] Department [place] [address] * TRANSTHORACIC ECHO (TTE) LIMITED/FOLLOW UP W LTD DOPPLER/CF WO CONTRAST (01/10/2025 6:28 PM CDT) EF Mod BP 60 % CONS SCIMAGE Anatomical Region Laterality Modality Ultrasound 01/10/2025 5:28 PM CDT Narrative 01/10/2025 5:59 PM CDT [place] [id number] Limited Echocardiogram Report Patient Name: SHANW SHULTZ B : 1950 Study Date: 01/10/2025 5:28:40 PM Gender: M Tech: MI Location: [id number] Ref Provider: KRISTAL EDWARD Height(Cm): 168 BSA: [...] Procedure Note Jose Godoy MD - 01/10/2025 [place] [address] Limited Echocardiogram Report Patient Name: SHAWN SHULTZ B : 1950 Study Date: 01/10/2025 5:28:40 PM Gender: M Tech: MI Location: [address] Provider: KRISTAL EDWARD Height(Cm): 168 BSA: [...] MD 01/10/2025 5:59:06 PM CDT Kristal Edward COMPOSITION 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 CV ECHO PROCEDURES Final Result * (ABNORMAL) POCT glucose (01/10/2025 4:49 PM CDT) Glucose, POC 246(H) 70 - 199 mg/dL POC Performer [id number] [facility] Blood 01/10/2025 4:49 PM CDT 01/10/2025 4:49 PM CDT Génesis Delatorre MD LAB POCT ORDERABLES - DEVICE Final Result Performing Organization Address City/[facility]/ZIP Co de Phone Number [facility] [address] Department of Laboratories [place], [place] [id number] * Type and screen (01/10/2025 12:49 PM CDT) ABO Rh A Negative Antonio, indirect Negative [facility] Blood 01/10/2025 12:4 9 PM CDT 01/10/2025 12:53 PM CDT Narrative [facility] - 01/10/2025 1:41 PM CDT Has the patient had Daratumumab or Isatuximab in the past 6 months?->Unknown Ty Lamb MD LAB BLOOD BANK TEST ORDERABL ES Final Result [facility] [address] [place] [address] * (ABNORMAL) POCT glucose (01/10/2025 12:05 PM CDT) Glucose, POC 208(H) 70 - 199 mg/dL POC Performer [id number] [facility] Blood 01/10/2025 12:0 5 PM CDT 01/10/2025 12:05 PM CDT Génesis Delatorre MD LAB POCT ORDERABLES - DEVICE Final Result Performing Organization Address [facility] de Phone Number JEFF [place] [address] [place] [address] * POCT glucose (01/10/2025 8:05 AM CDT) Glucose, POC 194 70 - 199 mg/dL POC Performer [id number] [facility] Blood 01/10/2025 8:05 AM CDT 01/10/2025 8:05 AM CDT Génesis Delatorre MD LAB POCT ORDERABLES - DEVICE Final Result Performing Organization Address [facility] de Phone Number SAMANTHAROGER [facility]ER[facility] [address] [place] [address] * Calcium, ionized, whole blood (01/10/2025 7:43 AM CDT) Ca, ionized, bld 4.63 4.50 - 5.10 mg/dL Blood 01/10/2025 7:43 AM CDT 01/10/2025 7:53 AM CDT Ty Lamb MD LAB BLOOD ORDERABLES Final R esult Performing Organization Address [facility] Co de Phone Number JEFF [place] [address] [place] [address] * eGFR (01/10/2025 7:43 AM CDT) Pathologist [facility] eGFR >90 >=60 mL/min/1. 73 m2 Comment: [...] LAB BLOOD ORDERABLES Fin al Result JEFF [address] Department [place] [address] * (ABNORMAL) CBC without differential (01/10/2025 7:43 AM CDT) Pathologist [facility] WBC 8.90 3.80 - 9.90 K/cumm Hgb 9.9(L) 13.0 - 17.5 g/dL [facility] Hct 32.4(L) 38.9 - 50.3 % [facility] Plt 232 150 - 400 K/cumm [facility] MPV 8.7(L) 9.1 - 12.3 fL [facility] RBC 3.78(L) 4.30 - 5.80 M/cumm [facility] MCV 85.7 81.3 - 96.4 fL [facility] MCH 26.2(L) 27.1 - 33.3 pg [facility] MCHC 30.6(L) 32.3 - 35.7 g/dL [facility] RDW CV 13.6 11.1 - 14.9 % [facility] RDW SD 42.4 35.7 - 48.1 fL [facility] NRBC abs 0.00 0.00 - 0.01 K/cumm [facility] Blood 01/10/2025 7:43 AM CDT 01/10/2025 7:55 AM CDT Ty Lamb MD LAB BLOOD ORDERABLES Final R esult JEFF [address] [place] [address] * Magnesium (01/10/2025 7:43 AM CDT) Pathologist [facility] Magnesium 1.9 1.4 - 2.5 mg/dL Blood 01/10/2025 7:43 AM CDT 01/10/2025 7:55 AM CDT yT Lamb MD LAB BLOOD ORDERABLES Final R [facility] [address] [address] [place] [address] * (ABNORMAL) Renal function panel (01/10/2025 7:43 AM CDT) Sodium 136 135 - 145 mmol/L Potassium, pl 4.1 3.3 - 4.9 mmol/L [facility] Chloride 102 97 - 110 mmol/L [facility] CO2 26 22 - 32 mmol/L [facility] Anion gap 8 2 - 15 mmol/L [facility] BUN 14 6 - 25 mg/dL [facility] Creatinine 0.67(L) 0.80 - 1.30 mg/dL [facility] Glucose 186 70 - 199 mg/dL [facility] Comment: Interpretive Data Fasting glucose [...] 2022. Calcium 8.9 8.5 - 10.3 mg/dL [facility] Phosphorus, pl 2.3 2.3 - 4.5 mg/dL [facility] Albumin 3.3(L) 3.5 - 5.0 g/dL [facility] Blood 01/10/2025 7:43 AM CDT 01/10/2025 7:55 AM CDT us Ty Lamb MD LAB BLOOD ORDERABLES Final R esult [facility] [address] Department [place] [address] * XR Chest 1 View (01/10/2025 6:05 [...] 239(H) 70 - 199 mg/dL POC Performer [id number] [facility] Blood 01/09/2025 9:09 PM CDT 01/09/2025 9:09 PM CDT Génesis Delatorre MD LAB POCT ORDERABLES - DEVICE Final Result Performing Organization Address [facility]/ZIP Co de Phone Number JEFF DAVIE [address] [place] [address] * (ABNORMAL) POCT glucose (01/09/2025 5:32 PM CDT) Glucose, POC 254(H) 70 - 199 mg/dL POC Performer [id number] [facility] Blood 01/09/2025 5:32 PM CDT 01/09/2025 5:32 PM CDT Génesis Delatorre MD LAB POCT ORDERABLES - DEVICE Final Result JEFF [address] [address] Department [place] [address] * (ABNORMAL) POCT glucose (01/09/2025 12:59 PM CDT) Glucose, POC 226(H) 70 - 199 mg/dL POC Performer [id number] [facility] Blood 01/09/2025 12:5 9 PM CDT 01/09/2025 12:59 PM CDT Génesis Delatorre MD LAB POCT ORDERABLES - DEVICE Final Result Performing Organization Address [facility] Co de Phone Number JEFF [address] [address] [employer] [place], [place] [address] * POCT glucose (01/09/2025 7:47 AM CDT) Glucose, POC 191 70 - 199 mg/dL POC Performer [id number] [facility] Blood 01/09/2025 7:47 AM CDT 01/09/2025 7:47 AM CDT Génesis Delatorre MD LAB POCT ORDERABLES - DEVICE Final Result Performing Organization Address [facility] de Phone Number SAMANTHAROGER BRODERICK [address] [address] Department [place] [address] * Calcium, ionized, whole blood (01/09/2025 6:20 AM CDT) Ca, ionized, bld 4.52 4.50 - 5.10 mg/dL Blood 01/09/2025 6:20 AM CDT 01/09/2025 7:08 AM CDT Ty Lamb MD LAB BLOOD ORDERABLES Final R esult Performing Organization Address City/[facility] Co de Phone Number JEFF BRODERICK [address] [employer] [place], [place] [id number] * eGFR (01/09/2025 6:20 AM CDT) eGFR [...] NP LAB BLOOD ORDERABLES Fin al Result [facility] [address] Department [place] [address] * (ABNORMAL) CBC without differential (01/09/2025 6:20 AM CDT) WBC 10.74(H) 3.80 - 9.90 K/cumm Hgb 9.7(L) 13.0 - 17.5 g/dL [facility] Hct 32.0(L) 38.9 - 50.3 % [facility] Plt 279 150 - 400 K/cumm [facility] MPV 8.8(L) 9.1 - 12.3 fL [facility] RBC 3.70(L) 4.30 - 5.80 M/cumm [facility] MCV 86.5 81.3 - 96.4 fL [facility] MCH 26.2(L) 27.1 - 33.3 pg [facility] MCHC 30.3(L) 32.3 - 35.7 g/dL [facility] CV 13.4 11.1 - 14.9 % [facility] RDW SD 42.2 35.7 - 48.1 fL [facility] NRBC abs 0.00 0.00 - 0.01 K/cumm [facility] Blood 01/09/2025 6:20 AM CDT 01/09/2025 7:11 AM CDT Ty Lamb MD LAB BLOOD ORDERABLES Final R esult Performing Organization Address City/[facility] Co de Phone Number JEFF BRODERICK [address] Department of [employer] [place], [place] [id number] * Magnesium (01/09/2025 6:20 AM CDT) Pathologist [facility] Magnesium 1.9 1.4 - 2.5 mg/dL Blood 01/09/2025 6:20 AM CDT 01/09/2025 7:11 AM CDT Ty Lamb MD LAB BLOOD ORDERABLES [facility] Performing Organization Address [facility] de Phone Number JEFF [address] [address] Department [place] [address] * (ABNORMAL) Renal function panel (01/09/2025 6:20 AM CDT) Sodium 135 135 - 145 mmol/L Potassium, pl 3.9 3.3 - 4.9 mmol/L [facility] Chloride 101 97 - 110 mmol/L [facility] CO2 24 22 - 32 mmol/L [facility] Anion gap 10 2 - 15 mmol/L [facility] BUN 17 6 - 25 mg/dL [facility] Creatinine 0.75(L) 0.80 - 1.30 mg/dL [facility] Glucose 195 70 - 199 mg/dL [facility] Comment: Interpretive Data Fasting glucose [...] BLOOD ORDERABLES Final R esult JEFF BRODERICK [address] Department of Laboratories [place] [phone] * XR Chest 1 View (01/09/2025 6:15 [...] 161 70 - 199 mg/dL POC Performer [id number] JEFF Blood 01/08/2025 8:21 PM CDT 01/08/2025 8:21 PM CDT Génesis Delatorre MD LAB POCT ORDERABLES - DEVICE Final Result JEFF [address] Department [place] [address] * XR Chest 1 Vw Portable (01/08/2025 [...] 1 Hour (01/08/2025 5:18 PM CDT) Narrative [facility] - 01/08/2025 5:20 PM CDT The images from this study are not interpreted by Radiology. Please refer to the physician's procedure / OR operative note. Ty Lamb MD IMG FLUOROSCOPY PROCEDURES F inal Result Performing Organization Address City/[facility]/ZIP Co de Phone Number [facility] * (ABNORMAL) POCT glucose (01/08/2025 11:56 AM CDT) Glucose, POC 222(H) 70 - 199 mg/dL POC Performer [id number] JEFF BRODERICK Blood 01/08/2025 11:5 6 AM CDT 01/08/2025 11:56 AM CDT Ty Lamb MD LAB POCT ORDERABLES - DEVICE Final Result Performing Organization Address City/[facility]/ZIP Co de Phone Number [facility] [address] [address] Department [place] [address] * Infection Prevention MRSA Only (Staphylococcus aureus) PCR Nasal (01/08/2025 8:06 AM CDT) PCR Scrn, Methicillin resistant Staphylococcus aureus (MRSA) Not Detected Not Detected Comment: Interpretive Data Testing performed using Nucleic Acid Amplification with the Retrophin Xpert MRSA NxG Assay. This assay detects target DNA from mecA, mecC and the SCCmec insertion site of Staphylococcus aureus using Real-Time PCR and has been cleared by the FDA. Performance characteristics have been verified by the [facility]. Current Interpretive Data was last revised on 2023 Nasal 01/08/2025 8:06 AM CDT 01/08/2025 8:11 AM CDT us Ty Lamb MD LAB MICROBIOLOGY - GENERAL O RDERABLES Final Result Performing Organization Address City/[facility]/ZIP Co de Phone Number JEFF BRODERICK [address] Department [place] [address] [place] * (ABNORMAL) POCT glucose (01/08/2025 8:03 AM CDT) Glucose, POC 237(H) 70 - 199 mg/dL POC Performer [id number] JEFF Blood 01/08/2025 8:03 AM CDT 01/08/2025 8:03 AM CDT us Génesis Delatorre MD LAB POCT ORDERABLES - DEVICE Final Result Performing Organization Address City/[facility]/ZIP Co de Phone Number JEFF BRODERICK [address] Department [place] [address] * Critical Care (01/08/2025 7:02 AM CDT) [...] plan with the ICU team and other medical/oracle hyperion consultant staff, making frequent assessments and decisions [...] 163 70 - 199 mg/dL POC Performer [id number] [facility] Blood 01/08/2025 5:06 AM CDT 01/08/2025 5:06 AM CDT Ty Lamb MD LAB POCT ORDERABLES - DEVICE Final Result Performing Organization Address [facility] Co de Phone Number JEFF [address] [place] [address] * eGFR (01/08/2025 12:33 AM CDT) eGFR [...] ORDERABLES Fin al Result Performing Organization Address [facility] Co de Phone Number JEFF BRODERICK [address] [place] [address] * Magnesium (01/08/2025 12:33 AM CDT) Magnesium 1.9 1.4 - 2.5 mg/dL Blood 01/08/2025 12:3 3 AM CDT 01/08/2025 12:33 AM CDT us Ty Lamb MD LAB BLOOD ORDERABLES Final R esult Performing Organization Address [facility]/ZIP Co de Phone Number JEFF BRODERICK [address] Department [place] [address] * (ABNORMAL) Renal function panel (01/08/2025 12:33 AM CDT) Sodium 136 135 - 145 mmol/L Potassium, pl 4.0 3.3 - 4.9 mmol/L [facility] Chloride 103 97 - 110 mmol/L [facility] CO2 24 22 - 32 mmol/L [facility] Anion gap 9 2 - 15 mmol/L [facility] BUN 14 6 - 25 mg/dL [facility] Creatinine 0.71(L) 0.80 - 1.30 mg/dL [facility] Glucose 212(H) 70 - 199 mg/dL [facility] Comment: Interpretive Data Fasting glucose >/= 126 [...] [facility] Albumin 3.4(L) 3.5 - 5.0 g/dL [facility] Blood 01/08/2025 12:3 3 AM CDT 01/08/2025 12:33 AM CDT Ty Lamb MD LAB BLOOD ORDERABLES Final R esult JEFF BRODERICK [address] Department [place] [address] * (ABNORMAL) POCT glucose (01/08/2025 12:26 AM CDT) Glucose, POC 232(H) 70 - 199 mg/dL POC Performer [id number] JEFF Blood 01/08/2025 12:2 6 AM CDT 01/08/2025 12:26 AM CDT Génesis Delatorre MD LAB POCT ORDERABLES - DEVICE Final Result Performing Organization Address [facility] Co de Phone Number [facility] [address] [place] [address] * (ABNORMAL) Troponin T high-sensitivity (01/08/2025 12:20 [...] ORDERABLES Fin al Result Performing Organization Address City/[facility]/ZIP Co de Phone Number [facility] [address] [place] [address] * Calcium, ionized, whole blood (01/08/2025 12:20 AM CDT) Ca, ionized, bld 4.73 4.50 - 5.10 mg/dL Blood 01/08/2025 12:2 0 AM CDT 01/08/2025 12:35 AM CDT Ty Lamb MD LAB BLOOD ORDERABLES Final R esult Performing Organization Address [facility] Co de Phone Number JEFF BRODERICK [address] Department [place] [address] * (ABNORMAL) CBC without differential (01/08/2025 12:20 AM CDT) WBC 10.30(H) 3.80 - 9.90 K/cumm Hgb 9.8(L) 13.0 - 17.5 g/dL [facility] Hct 31.1(L) 38.9 - 50.3 % [facility] Plt 341 150 - 400 K/cumm [facility] MPV 8.6(L) 9.1 - 12.3 fL [facility] RBC 3.66(L) 4.30 - 5.80 M/cumm [facility] MCV 85.0 81.3 - 96.4 fL [facility] MCH 26.8(L) 27.1 - 33.3 pg [facility] MCHC 31.5(L) 32.3 - 35.7 g/dL [facility] RDW CV 13.3 11.1 - 14.9 % [facility] RDW SD 41.7 35.7 - 48.1 fL [facility] NRBC abs 0.00 0.00 - 0.01 K/cumm [facility] Blood 01/08/2025 12:2 0 AM CDT 01/08/2025 12:39 AM CDT us Ty Lamb MD LAB BLOOD ORDERABLES Final R [facility] Performing Organization Address City/[facility]/ZIP Co de Phone Number JEFF BRODERICK [address] [place] [address] * (ABNORMAL) POCT glucose (01/07/2025 9:55 PM CDT) Glucose, POC 249(H) 70 - 199 mg/dL POC Performer [id number] [facility] Blood 01/07/2025 9:55 PM CDT 01/07/2025 9:55 PM CDT us Ty Lamb MD LAB POCT ORDERABLES - DEVICE Final Result JEFF BRODERICK [address] Department [place] [address] * Critical Care (01/07/2025 8:43 PM CDT) [...] plan with the patient's team and other medical/oracle hyperion consultant staff. This time was in addition to and separate from care provided by other practitioners on this day of service. Heri Tovar COMPOSITION 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 IN CLINIC/BEDSIDE ORDER BEATRIZ Final Result * (ABNORMAL) POCT glucose (01/07/2025 7:54 PM CDT) Pathologist [facility] Glucose, POC 266(H) 70 - 199 mg/dL POC Performer [id number] [facility] Blood 01/07/2025 7:54 PM CDT 01/07/2025 7:54 PM CDT Ty Lamb MD LAB POCT ORDERABLES - DEVICE Final Result Performing Organization Address City/[facility]/ZIP Co de Phone Number JEFF BRODERICK [address] Department [place] [address] * (ABNORMAL) Troponin T high-sensitivity (01/07/2025 6:24 [...] ORDERABLES Fin al Result Performing Organization Address [facility] Co de Phone Number JEFF [address] [address] [facility] [place] [address] * Type and screen (01/07/2025 6:24 PM CDT) Antonio, indirect Negative ABO Rh A Negative [facility] Blood 01/07/2025 6:24 PM CDT 01/07/2025 6:42 PM CDT Narrative [facility] - 01/07/2025 7:44 PM CDT Has the patient had Daratumumab or Isatuximab in the past 6 months?->Unknown Fran Garcia NP LAB BLOOD BANK TEST ORDE RABLES Final Result Performing Organization Address [facility] de Phone Number JEFF [address] [address] [facility] [place] [address] * Urinalysis reflex to microscopic (01/07/2025 5:32 [...] for uric acid stone formation. Source: [facility]ise Current Interpretive Data was last revised on [...] ORDERABLES Fin al Result Performing Organization Address [facility] de Phone Number JEFF [address] [address] Department [employer] [place], [place] [phone] * Strep pneumoniae antigen, urine Urine (01/07/2025 [...] AL ORDERABLES Final Result Performing Organization Address [facility] Co de Phone Number [facility] [address] [address] [place] [address] * Legionella antigen Urine (01/07/2025 5:32 PM CDT) Pathologist [facility] Legionella Ag Negative Negative Comment: Interpretive Data This test detects only Legionella pneumophila serogroup 1 antigen. Current interpretive data was last revised on 2019. Urine 01/07/2025 5:32 PM CDT 01/07/2025 5:42 PM CDT Fran Garcia NP LAB MICROBIOLOGY - GENER AL ORDERABLES Final Result [facility] [address] Department [place] [address] * (ABNORMAL) Respiratory pathogen panel Nasopharyngeal (01/07/2025 5:30 PM CDT) [facility] Influenza A RNA Not Detected Not Detected Influenza B RNA Not Detected Not Detected [facility] RSV RNA Not Detected Not Detected [facility] COVID-19 RNA Not Detected Not Detected [facility] Coronavirus 229E RNA Not Detected Not Detected [facility] Coronavirus HKU1 RNA Not Detected Not Detected [facility] Coronavirus NL63 RNA Not Detected Not Detected [facility] Coronavirus OC43 RNA Not Detected Not Detected [facility] Adenovirus DNA Not Detected Not Detected [facility] Metapneumovirus RNA Detected(A) Not Detected [facility] Rhinovirus/Enterov irus RNA Not Detected Not Detected [facility] Parainfluenza 1 RNA Not Detected Not Detected [facility] Parainfluenza 2 RNA Not Detected Not Detected [facility] Parainfluenza 3 RNA Not Detected Not Detected [facility] Parainfluenza 4 RNA Not Detected Not Detected [facility] B. pertussis DNA Not Detected Not Detected [facility] B. parapertussis DNA Not Detected Not Detected [facility] C. pneumoniae DNA Not Detected Not Detected [facility] M. pneumoniae DNA Not Detected Not Detected [facility] Comment: Interpretive Data The Rival IQ FilmArray Respiratory Panel (RP2.1) assay is a [...] assay has FDA clearance for testing of COMPOSITION 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 swabs. The performance characteristics of this assay have been determined by [facility]. Current interpretive data was last revised on 2021. Nasopharyngeal 01/07/2025 5: 30 PM CDT 01/07/2025 6:35 PM CDT Shanice Pacheco 01/07/2025 8:39 PM CDT Is the Patient experiencing symptoms consistent with COVID?->Unknown Surveillance testing for transplant patient?->No Fran Garcia COMPOSITION 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 LAB MICROBIOLOGY - GENER AL ORDERABLES Final Result JEFF [address] Department [place] [address] * Critical Care (01/07/2025 4:59 PM CDT) [...] plan with the ICU team and other medical/oracle hyperion consultant staff, making frequent assessments and decisions [...] in the medical record us Fran Garcia COMPOSITION 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 IN CLINIC/BEDSIDE ORDERA BLES Final Result * (ABNORMAL) Troponin T high-sensitivity (01/07/2025 4:45 PM CDT) Trop T hs 79(H) <=22 ng/L Comment: Interpretive Data For further hscTnT resources including the diagnostic algorithm and an aid in interpretation, copy and paste this link: https://nrl.testcatalog.org/show/[email or web address] Current Interpretive Data last revised 2020. Blood 01/07/2025 4:45 PM CDT 01/07/2025 5:10 PM CDT Fran Garcia COMPOSITION 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 LAB BLOOD ORDERABLES Fin al Result Performing Organization Address [facility] Co de Phone Number JEFF [address] [facility] [place] [address] * Sepsis Lactate w/ Reflex (01/07/2025 4:45 PM CDT) Sepsis Lactate 1.9 0.7 - 2.0 mmol/L Blood 01/07/2025 4:45 PM CDT 01/07/2025 5:10 PM CDT Sindhu Whittington MD LAB BLOOD ORDERABLES Iris l Result Performing Organization Address [facility] de Phone Number JEFF [address] [facility] [place] [address] * Lactate (01/07/2025 4:45 PM CDT) Lactate 1.9 0.7 - 2.0 mmol/L Blood 01/07/2025 4:45 PM CDT 01/07/2025 5:10 PM CDT Fran Garcia COMPOSITION 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 LAB BLOOD ORDERABLES Fin al Result Performing Organization Address [facility] de Phone Number [facility] [address] [address] [facility] [employer] [place], [place] [id number] * Calcium, ionized, whole blood (01/07/2025 4:45 PM CDT) Ca, ionized, bld 4.62 4.50 - 5.10 mg/dL Blood 01/07/2025 4:45 PM CDT 01/07/2025 5:10 PM CDT Fran Garcia COMPOSITION 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 LAB BLOOD ORDERABLES Fin al Result Performing Organization Address [facility] Co de Phone Number [facility] [address] [address] [facility] [place] [address] * eGFR (01/07/2025 4:45 PM CDT) eGFR [...] LAB BLOOD ORDERABLES Fin al Result JEFF [address] [address] Department [place] [address] * (ABNORMAL) Pro B-type natriuretic [...] CDT 01/07/2025 5:10 PM CDT Fran Garcia COMPOSITION 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 LAB BLOOD ORDERABLES Fin al Result Performing Organization Address [facility] de Phone Number EJFF [address] [address] [place] [address] * Thyroid Function [place] (01/07/2025 4:45 PM CDT) TSH 0.75 0.30 - 4.20 mcIUnit/mL Blood 01/07/2025 4:45 PM CDT 01/07/2025 5:10 PM CDT Fran Garcia NP LAB BLOOD ORDERABLES Fin al Result Performing Organization Address [facility] [place] [address] [address] [employer] [place], [place] [id number] * aPTT (01/07/2025 4:45 PM CDT) aPTT 32 28 - 38 sec Comment: Interpretive Data Heparin therapeutic range: 66.0 - 100.0 seconds. Range based on correlation with therapeutic heparin activity range of 0.3 - 0.7 Units/mL. Current interpretive data was last revised on 2023. Blood 01/07/2025 4:45 PM CDT 01/07/2025 5:10 PM CDT Fran Garcia COMPOSITION 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 LAB BLOOD ORDERABLES Fin al Result Performing Organization Address City/[facility]/ZIP Co de Phone Number JEFF BRODERICK [address] [address] Department [place] [address] * (ABNORMAL) Protime-INR (01/07/2025 4:45 PM CDT) [...] ORDERABLES Fin al Result Performing Organization Address City/[facility]/ZIP Co de Phone Number JEFF BRODERICK [address] [address] Department [place] [address] * Fibrinogen (01/07/2025 4:45 PM CDT) Fibrinogen 359 170 - 400 mg/dL Blood 01/07/2025 4:45 PM CDT 01/07/2025 5:10 PM CDT us Fran Garcia NP LAB BLOOD ORDERABLES Fin al Result Performing Organization Address City/[facility]/ZIP Co de Phone Number JEFF BRODERICK [address] [address] Department [place] [address] * (ABNORMAL) CBC without differential (01/07/2025 4:45 PM CDT) WBC 9.43 3.80 - 9.90 K/cumm Hgb 9.9(L) 13.0 - 17.5 g/dL [facility] Hct 31.6(L) 38.9 - 50.3 % [facility] Plt 306 150 - 400 K/cumm [facility] MPV 8.7(L) 9.1 - 12.3 fL [facility] RBC 3.72(L) 4.30 - 5.80 M/cumm [facility] MCV 84.9 81.3 - 96.4 fL [facility] MCH 26.6(L) 27.1 - 33.3 pg [facility] MCHC 31.3(L) 32.3 - 35.7 g/dL [facility] RDW CV 13.4 11.1 - 14.9 % [facility] RDW SD 41.4 35.7 - 48.1 fL [facility] NRBC abs 0.00 0.00 - 0.01 K/cumm [facility] Blood 01/07/2025 4:45 PM CDT 01/07/2025 5:12 PM CDT Fran Garcia NP LAB BLOOD ORDERABLES Fin al Result Performing Organization Address City/[facility] Co de Phone Number JEFF [address] [facility] [place] [address] * Uric acid (01/07/2025 4:45 PM CDT) Pathologist [facility] Uric acid 4.0 3.0 - 8.0 mg/dL Blood 01/07/2025 4:45 PM CDT 01/07/2025 5:10 PM CDT Fran Garcia NP LAB BLOOD ORDERABLES Fin al Result Performing Organization Address City/[facility] Co de Phone Number [facility] [address] [address] [facility] [place] [address] * Phosphorus (01/07/2025 4:45 PM CDT) Phosphorus, pl 2.7 2.3 - 4.5 mg/dL Blood 01/07/2025 4:45 PM CDT 01/07/2025 5:10 PM CDT Fran Garcia COMPOSITION 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 LAB BLOOD ORDERABLES Fin al Result Performing Organization Address [facility] de Phone Number JEFF [address] [address] Department [place] [address] * Magnesium (01/07/2025 4:45 PM CDT) Magnesium 1.7 1.4 - 2.5 mg/dL Blood 01/07/2025 4:45 PM CDT 01/07/2025 5:10 PM CDT Fran Garcia COMPOSITION 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 LAB BLOOD ORDERABLES Fin al Result Performing Organization Address [facility] de Phone Number JEFF [address] [address] Department [place] [address] * Blood gas, venous (01/07/2025 4:45 PM [...] CDT 01/07/2025 5:10 PM CDT Fran Garcia COMPOSITION 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 LAB BLOOD ORDERABLES Fin al Result Performing Organization Address [facility] Co de Phone Number JEFF BRODERICK [address] [facility] [place] [address] * Creatine kinase (CK), total (01/07/2025 4:45 PM CDT) CK 52 40 - 300 Units/L Blood 01/07/2025 4:45 PM CDT 01/07/2025 5:10 PM CDT Fran Garcia COMPOSITION 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 LAB BLOOD ORDERABLES Fin al Result Performing Organization Address [facility] Co de Phone Number JEFF BRODERICK [address] [address] [facility] [place] [address] * Creatine kinase (CK), total (01/07/2025 4:45 PM CDT) CK 51 40 - 300 Units/L Blood 01/07/2025 4:45 PM CDT 01/07/2025 5:10 PM CDT Fran Garcia COMPOSITION 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 LAB BLOOD ORDERABLES Fin al Result Performing Organization Address [facility] Co de Phone Number SAMANTHAROGER BRODERICK [address] [facility] [place] [address] * Bilirubin, direct (01/07/2025 4:45 PM CDT) Pathologist [facility] Bilirubin, direct 0.1 0.1 - 0.3 mg/dL Blood 01/07/2025 4:45 PM CDT 01/07/2025 5:10 PM CDT Fran Garcia COMPOSITION 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 LAB BLOOD ORDERABLES Fin al Result Performing Organization Address [facility]/ZIP Co de Phone Number JEFF BRODERICK [address] [place] [address] * (ABNORMAL) Comprehensive metabolic panel (01/07/2025 4:45 [...] LAB BLOOD ORDERABLES Fin al Result JEFF [address] [address] Department [place] [address] * [place] ARTL CATHJ/CANNULJ MNTR/TRANSFUSION SPX PRQ (01/07/2025 3:30 PM CDT) Narrative Fran Garcia NP - 01/07/2025 3:30 PM CDT Fran Garcia NP 01/26/2025 5:55 PM Arterial Line Insertion Date/Time: 01/07/2025 3:30 PM Performed by: Fran Garcia NP Authorized by: Fran Garcia NP [place] Protocol: RN Notified of Procedure: yes Informed [...] PM CDT Narrative 01/07/2025 3:24 PM CDT [place] [id number] Echocardiogram Report Patient Name: SHAWN SHULTZ BRI : 1950 Study Date: 01/07/2025 1:26:17 PM Gender: M Tech: Location: [id number] Ref Provider: FRAN GARCIA Height(Cm): 168 BSA: [...] Procedure Note Isidro Carvalho MD - 01/07/2025 [place] [address] Echocardiogram Report Patient Name: SHAWN SHULTZ BRI : 1950 Study Date: 01/07/2025 1:26:17 PM Gender: M Tech: JELANI Location: [id number] [facility] Provider: FRAN GARCIA Height(Cm): 168 BSA: 2.05 [...] Rate: 96 bpm RR Interval: 625 msec WV Interval: 234 msec QRS Duration: 101 msec QT Interval: 367 msec QTC Interval: 420 msec P-R-T [place]: 24 - 119 - 97 degrees IMPRESSION: SINUS RHYTHM WITH FIRST DEGREE AV BLOCK INCOMPLETE RIGHT BUNDLE BRANCH BLOCK RIGHT VENTRICULAR HYPERTROPHY NONSPECIFIC ST \T\ T-WAVE ABNORMALITY Electronically Signed By: Washington Díaz MD, [facility] us Fran Garcia NP ECG ORDERABLES Final Re sult [facility] * X-ray chest 1 view (Portable) (01/07/2025 [...] signed by: Zenon Wing M.D. Fran Garcia COMPOSITION 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 IMG XR PROCEDURES Final Result * (ABNORMAL) POCT glucose (01/07/2025 12:53 PM CDT) Glucose, POC 212(H) 70 - 199 mg/dL POC Performer [id number] JEFF BRODERICK Blood 01/07/2025 12:5 3 PM CDT 01/07/2025 12:53 PM CDT Génesis Delatorre MD LAB POCT ORDERABLES - DEVICE Final Result JEFF [address] Department [place] [address] * (ABNORMAL) Troponin T high-sensitivity 2-hour (01/07/2025 10:28 AM CDT) Trop T hs 74(H) <=22 ng/L Comment: Michael Mcnulty RN ER Interpretive Data For further hscTnT resources including the diagnostic algorithm and an aid in interpretation, copy and paste this link: https://nrl.testcatalog.org/show/hsTrop Current Interpretive Data last revised 2020. Trop T hs delta 41(C) ng/L [facility] ([place]) Comment:Critical Result call ed by [email or web address] at 2025-01-07 11:19:30. Result Read Back by Michael Mcnulty RN ER Trop T hs interp Significa nt(C) JEFF IGLESIAS ([place]) Comment:Critical Result call ed by [email or web address] at 2025-01-07 11:19:30. Result Read Back by Michael Mcnulty RN ER Blood 01/07/2025 10:2 8 AM CDT 01/07/2025 10:33 AM CDT us Jt Zacarias MD LAB BLOOD ORDERABLE S Final Result JEFF IGLESI[facility] ([place]) 1 [facility] [place] [address] * [place] [facility] ILL/INJURED PATIENT INIT 30-74 MIN [...] ORDERABLES - NOAH CE Final Result JEFF [facility] [address] [place] [address] * TRANSTHORACIC ECHO (TTE) LIMITED/FOLLOW UP WO DOPPLER/CF WO CONTRAST (01/07/2025 9:32 AM CDT) Pathologist [facility] Estimated EF 65 % CONS SCIMAGE Anatomical Region Laterality Modality Ultrasound 01/07/2025 9:09 AM CDT Narrative 01/07/2025 9:54 AM CDT [address] [address] Limited Echocardiogram Report Patient Name: SHAWN SHULTZ BRI : 1950 Study Date: 01/07/2025 9:09:51 AM Gender: M Tech: AA Location: [facility] Ref Provider: JT ZACARIAS Height(Cm): BSA: [...] Procedure Note Jose Godoy MD - 01/07/[address] [address] Limited Echocardiogram Report Patient Name: SHAWN SHULTZ BRI : 1950 Study Date: 01/07/2025 9:09:51 AM Gender: M Tech: AA Location: [facility] Ref Provider: JT ZACARIAS Height(Cm): BSA: [...] Lyla Salamanca M.D. FT: FT Report ID: [id number] Reading Location: [id number] Procedure Note Lyla Roberson MD - 01/07/2025 [...] Lyla Salamanca M.D. FT: FT Report ID: [id number] Reading Location: [id number] Jt Zacarias MD IMG XR PROCEDURES F inal Result * (ABNORMAL) Sepsis Lactate w/ Reflex (01/07/2025 8:58 AM CDT) Sepsis Lactate 3.9(H) 0.7 - 2.0 mmol/L Blood 01/07/2025 8:58 AM CDT 01/07/2025 9:01 AM CDT us Jt Zacarias MD LAB BLOOD ORDERABLE S Final Result Performing Organization Address [facility] Co de Phone Number JEFF IGLESIAS ([place]) [address] [facility] [place] [address] * (ABNORMAL) Troponin T high-sensitivity series (baseline, [...] ORDERABLE S Final Result Performing Organization Address [facility] Co de Phone Number JEFF IGLESIAS ([place]) [address] [facility] [place] [address] * eGFR (01/07/2025 8:40 AM CDT) eGFR [...] BLOOD ORDERABLE S Final Result [facility] ([place]) 1 [facility] [place] [address] * (ABNORMAL) Differential, auto (01/07/2025 8:40 AM [...] Final Result JEFF [facility] ([place]) 1 [facility] [place] [address] * (ABNORMAL) CBC with auto differential (01/07/2025 [...] RDW CV 13.3 11.1 - 14.9 % [facility] ([place]) RDW SD 41.5 35.7 - 48.1 fL [facility] ([place]) NRBC abs 0.00 0.00 - 0.01 K/cumm [facility] ([place]) Blood 01/07/2025 8:40 AM CDT 01/07/2025 8:45 AM CDT Jt Zacarias MD LAB BLOOD ORDERABLE S Final Result [facility] ([place]) [address] [facility] [place] [address] * Magnesium (01/07/2025 8:40 AM CDT) Pathologist [facility] Magnesium 1.7 1.4 - 2.5 mg/dL Blood 01/07/2025 8:40 AM CDT 01/07/2025 9:44 AM CDT Jt Zacarias MD LAB BLOOD ORDERABLE S Final Result Performing Organization Address City/[facility] Co de Phone Number [facility] ([place]) [address] [facility] [place] [address] * (ABNORMAL) Comprehensive metabolic panel (01/07/2025 8:40 AM CDT) Sodium 138 135 - 145 mmol/L Potassium, pl 3.4 3.3 - 4.9 mmol/L [facility] ([place]) Chloride 102 97 - 110 mmol/L [facility] ([place]) CO2 20(L) 22 - 32 mmol/L [facility] ([place]) Anion gap 16(H) 2 - 15 mmol/L [facility] ([place]) BUN 11 6 - 25 mg/dL [facility] ([place]) Creatinine 0.79(L) 0.80 - 1.30 mg/dL [facility] ([place]) Glucose 248(H) 70 - 199 mg/dL [facility] ([place]) Comment: Interpretive Data Fasting glucose [...] Final Result JEFF [facility] ([place]) 1 [facility] [place] [address] * ECG 12 lead (01/07/2025 8:39 AM CDT) 01/07/2025 8:39 AM CDT Narrative [facility] - 01/07/2025 9:28 AM CDT Vent Rate: 91 bpm RR Interval: 654 msec WV Interval: 238 msec QRS Duration: 111 msec QT Interval: 394 msec QTC Interval: 443 msec P-R-T [place]: 7 - 132 - 71 degrees IMPRESSION: [...] Zacarias MD ECG ORDERABLES Fin al Result [facility] * XR Chest Pa Lateral 2 Views [...] Meir Ascencio M.D. KT: [place] Report ID: [id number] Reading Location: [id number] Procedure Note Meir Ascencio MD - 01/01/2025 [...] Meir Ascencio M.D. KT: KT Report ID: [id number] Reading Location: [place] [address] us Nayely Sharp COMPOSITION 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 IMG XR PROCEDURES Fin al Result * [...] by: Vick Cruz M.D. us Jose Vega COMPOSITION 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 IMG XR PROCEDURES Final Res ult * [...] and children were not included. (Diabetes Care 31:5553-6892, 2008). The eAG is not equivalent to a fasting glucose. Blood 12/18/2024 5:56 AM CDT 12/18/2024 6:01 AM CDT Jose Vega NP LAB BLOOD ORDERABLES Final Result Performing Organization Address [facility] de Phone Number [facility] [address] [employer] [place], [place] [id number] * (ABNORMAL) Albumin Creatinine Ratio, Urine (04/01/2024 11:09 AM CDT) Albumin Ur 19.5 mg/L Comment: Interpretive Data No reference range established. Current interpretive data was last revised 2019. Creatinine Ur 60.3 mg/dL [facility] Comment: Interpretive Data No reference range established. Current interpretive data was last revised 2019. Albumin Creatinine Ratio, Ur 32(H) 1 - 29 mg/g JEFF Urine 04/01/2024 11:0 9 AM CDT 04/01/2024 5:29 PM CDT Alireza Clark MD LAB URINE ORDERABLES Final Resul t Performing Organization Address [facility] Co de Phone Number [facility] [address] [place] [address] * (ABNORMAL) Lipid panel (04/01/2024 11:09 AM [...] BLOOD ORDERABLES Final Resul t JEFF BRODERICK [address] Department [place] [address] from Last 3 Months or Most Recently Relevant to Health Maintenance Insurance MEDICARE [employer] FOR LIFE [employer]AGE FOR LIFE [employer] Advance Directives For more information, please contact: [phone] * Full Code (Latest Code Status on File) Date Activated Date Inactivated Comments 01/07/2025 1:12 PM 01/11/2025 11:13 PM * Full Code Date Activated Date Inactivated Comments 12/14/2024 5:54 PM 12/21/2024 8:28 PM * Full Code Date Activated Date Inactivated Comments 06/18/2024 3:52 PM 06/19/2024 10:57 PM * Full Code Date Activated Date Inactivated Comments 02/11/2024 3:49 PM 02/12/2024 6:22 PM Care Teams Cook Cashier Food Prep Relationship Specialty Start Date End Date Maryann Jiménez DO PCP - General Family Medicine 07/03/22 Jose David Betancourt MD [address] [address] Consulting Physician Urology 06/19/24 Ty Lamb MD [address] [address] Surgeon Cardiothoracic Surgery 12/21/24 Jatinder Jones MD [address] [place] [address] Consulting Physician Cardiology 12/21/24 Miscellaneous, Not In File 12/21/24
--- OUTSIDE RECORDS SUMMARY | 2025-03-28 21:18 | XMS_ITS | Encounter Summary ---
Author Organization [facility] Healthcare Address [address] [place] [address] Care Team Providers Care Replanting Machine Crewman Name Role Phone Maryann Jiménez DO Primary Care Provider + Jose David Betancourt MD Unavailable [phone] Ty Lamb MD Unavailable [phone] Jatinder Jones MD Unavailable [phone] Miscellaneous, Not In File Unavailable Unava ilable Encounter Details Date Type Department Care Team (Late st Contact Info) Description 01/05/2025 [facility] Post Discharge Follow up phone call [place] [id number] [place] [address] Ariella Larsen Social History Tobacco [...] materials from doctor or pharmacy Never 12/23/2024 [facility] Utilities Answer Date Recorded In [...] often do you attend chur ch or jew services? More than 4 times per year 12/17/2024 Do you belong to any clubs o r organizations such as holiness groups, unions, fraternal or athletic groups, or [...] staff should administer the PHQ-9) 0 08/17/2024 [facility] - [...] any time in the past 12 m [facility], were you homeless or living in a fdc (including now)? No 12/17/2024 Personal Safety Answer Date Recorded Have you ever been in or are you currently in a harmful physical or emotional relationship or is someone making you feel afraid or unsafe? 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 Gender Identity Male 01/23/2020 12:25 AM [...] documented as of this encounter Care Teams Replanting Machine Crewman Relationship Specialty Start Date End Date JiménezShantellMaryann DO Missy PCP - General Family Medicine 07/03/22 Jose David Betancourt MD [address] [place] [address] Consulting Physician Urology 06/19/24 Ty Lamb MD [address] [place], [place] [id number] Surgeon Cardiothoracic Surgery 12/21/24 Jatinder Jones MD [address] [place] [address] Consulting Physician Cardiology 12/21/24 Miscellaneous, Not In File 12/21/24 documented as of this encounter
--- OUTSIDE RECORDS SUMMARY | 2025-03-28 21:18 | XMS_ITS | Encounter Summary ---
Author Organization [facility] Healthcare Address [address] [place] [address] Care Team Providers Care Pharmacy Picking Technician Name Role Phone Maryann Jiménez DO Primary Care Provider + Jose David Betancourt MD Unavailable [phone] Ty Lamb MD Unavailable [phone] Jatinder Jones MD Unavailable [phone] Miscellaneous, Not In File Unavailable Unava ilable Encounter Details Date Type Department Care Team (Late st Contact Info) Description 01/25/2025 [facility] Post Discharge Follow up phone call [place] [id number] [place] [address] Ariella Larsen Social History Tobacco [...] materials from doctor or pharmacy Never 01/27/2025 [facility] Utilities Answer Date Recorded In [...] often do you attend chur ch or temple services? 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 Gender Identity Male 01/23/2020 12:25 AM CDT [...] on filedocumented in this encounter Care Teams Pharmacy Picking Technician Relationship Specialty Start Date End Date Maryann Jiménez DO PCP - General Family Medicine 07/03/22 Jose David Betancourt MD [address] [place] [address] Consulting Physician Urology 06/19/24 Ty Lamb MD [address] [facility] [address] [place] [address] Surgeon Cardiothoracic Surgery 12/21/24 Jatinder Jones MD [address] [place] [address] Consulting Physician Cardiology 12/21/24 Miscellaneous, Not In File 12/21/24 documented as of this encounter
--- OUTSIDE RECORDS SUMMARY | 2025-03-28 21:18 | XMS_ITS | Clinical Summary ---
Author Organization [facility] Address [facility] [place] [address] Care Team Providers Care Studio Artist Name Role Phone Maryann Jiménez DO Primary Care Provider + Jose David Betancourt MD Unavailable [phone] Ty Lamb MD Unavailable [phone] Jatinder Jones MD Unavailable [phone] Miscellaneous, Not In File Unavailable Unava ilable [...] tabletIndication s:hypothyroidism Take 1 tablet by mouth retail branch manager before breakfast Active metFORMIN (GLUCOPHAGE) 1,000 [...] hyperglycemia, with long-term current use of insulin ([facility]) Dx code E11.65. 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 3 each 3 [...] are complete. Avoid live-vaccines unless reviewed with bait packer first. 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 Restart Trulicity 3 mg weekly [...] and Trulicity Send me a message via [employer] every week, so we can look at [...] Overview (12/08/2016): Essential hypertension Coronary arteriosclerosis in [place] artery 09/28 Overview (12/08/2016): Coronary artery disease involving [place] coronary artery of [place] heart without angina pectoris Arthralgia of shoulder [...] Care Team Description 03/26/2025 6:50 AM CDT [address] [address] Memory loss; Encounter for medical screening examination 03/25/2025 3:15 PM CDT Office [facility] [address] [place] [address] [phone] Juany Teague MD Memory loss (Primary Dx); Encounter for medical screening examination 02/12/2025 Telephone [facility] Cardiology [address] [facility] [address] [place] [address] Jatinder Jones MD 02/11/2025 Telephone [facility] [address] [place] [address] [address] [address] Alireza Clark MD Med Refill 01/27/2025 10:30 AM CDT Home Care Visit [address] [place] [address] Lori Puckett SN OASIS DISCHARGE 01/26/2025 1:15 PM CDT Office Visit [facility] Surgery [address] [place] [address] [address] [place] [address] Ty Lamb MD Coronary artery disease (CAD) excluded (Primary Dx) 01/25/2025 [facility] Post Discharge Follow up phone call [facility] [address] [place] [address] Ariella Larsen 01/21/2025 10:30 AM CDT Home Care Visit [address] [place] [address] Lori Puckett SN HOME VISIT 01/18/2025 9:30 AM CDT Home Care Visit [address] [place] [address] Lori Puckett SN HOME VISIT 01/18/2025 Telephone [facility] [address] [place] [address] [address] [address] Alireza Clark MD 01/14/2025 Plan of Care Documentation [address] [place] [address] 01/13/2025 12:30 PM CDT Home Care Visit [address] [place] [address] Kaitlynn Elizalde, RN SN OASIS RESUMPTION OF CARE 01/12/2025 Orders Only [facility] Cardiology [address] [facility] [address], [place] [phone] Jatinder Jones MD Presence of cardiac pacemaker (Primary Dx); SSS (sick sinus syndrome) (HCC); Bradycardia 01/12/2025 Orders Only [facility] Surgery [address] [facility] [address] [place] [address] Jose Vega NP 01/08/2025 3:36 PM CDT Anesthesia Event [facility] Operating Room [address] [place] [address] Karen Tavarez DO Vuong, Peter Thuan, MD 01/08/2025 3:20 PM CDT - 01/08/2025 5:20 PM CDT Surgery [facility] Operating Room [address] [place] [address] Ty Lamb MD REPLACE PACEMAKER GENERATOR FROM ABDOMEN WITH FLUOROSCOPY 01/07/2025 1:01 PM CDT - 01/11/2025 7:12 PM CDT Hospital Encounter [facility] [address] [place] [address] Sindhu Whittington MD Munfakh, Nabil A., MD Brother, Michele, MD Rivera, Samantha, MD Cardiac tamponade (Primary Dx); Cervical myofascial pain syndrome; Syncope and collapse; Frailty syndrome in geriatric patient Discharge Disposition: Discharge to home, home health skilled care 01/07/2025 12:18 PM CDT - 01/07/2025 11:59 PM CDT Hospital Encounter [facility] Emergency, Room R Discharge Disposition: Discharge to home or self care 01/07/2025 8:28 AM CDT - 01/07/2025 12:14 PM CDT Emergency [facility] Emergency Department [address] [place], [place] [id number] Jt Zacarias MD Lo Bianco, Salvador, MD Cardiac tamponade (Primary Dx); Bradycardia; Heart block Discharge Disposition: Discharge to a short term hospital for IP 01/07/2025 8:15 AM CDT - 01/07/2025 11:59 PM CDT Hospital Encounter [facility] Emergency, Room R Discharge Disposition: Discharge to home or self care 01/07/2025 Home Care Visit [address] [address] [address] [place] [address] Lori Puckett SN OASIS TRANSFER W/OUT DC 01/05/2025 10:00 AM CDT Home Care Visit [address] [place] [address] Lori Puckett HOME VISIT 01/05/2025 [facility] Post Discharge Follow up phone call [address] [address] Ariella Larsen 01/05/2025 [facility] Post Discharge Follow up phone call [address] [address] Ariella Larsen 01/01/2025 2:45 PM CDT - 01/01/2025 11:59 PM CDT Hospital Encounter [facility] Radiology - Outpatient Center at [address] [address] Acute cough Discharge Disposition: Discharge to home or self care 01/01/2025 2:15 PM CDT Office Visit [facility]ient [facility] at [address] [phone] Nayely Sharp NP Acute cough (Primary Dx) 01/01/2025 9:30 AM CDT Home Care Visit [address] [address] [address] [place] [address] Kristal Allen, TOÑO SN HOME VISIT 01/01/2025 Results Follow-Up [facility]ient [facility] at [address] [place] [phone] Nayely Sharp NP XR Chest Pa Lateral 2 Views 01/01/2025 Documentation [facility] Surgery [address] [facility] [address] [place] [address] Jose Vega NP 12/31/2024 Orders Only [facility] Surgery [address] [place] [address] [address] [place] [address] Jose Vega NP 12/29/2024 11:30 AM CDT Home Care Visit [address] [place] [address] [address] [place] [address] Kristal Allen RN SN HOME VISIT 12/29/2024 Home Care Visit [address] [place] [address] Lori Puckett CARE CONFERENCE 12/28/2024 12:00 PM CDT - 12/28/2024 11:59 PM CDT Hospital Encounter [facility] Diagnostic Imaging [address] [place] [address] S/P CABG (coronary artery bypass graft) Discharge Disposition: Discharge to home or self care 12/28/2024 Documentation [facility] Surgery [address] [place] [address] [address] [place] [address] Jose Vega NP 12/28/2024 Orders Only [facility] Surgery [address] [place] [address] [address] [place] [address] Jsoe eVga NP S/P CABG (coronary artery bypass graft) [...] 1986 TIA Cataract Palpitations Pacemaker pacemaker in [facility], but does not work, per [...] In the past 12 months has e [employer] gas, oil, or water [employer] threatened to shut off services in your [...] week 01/11/2025 How often do you attend [facility] or jainism services? More than 4 times per year [...] staff should administer the PHQ-9) 0 08/17/2024 [facility] [place] of Occupat ional Health - Occupational Stress [...] any time in the past 12 m [facility], were you homeless or living in a nursing home (including now)? No 01/11/2025 Personal Safety Answer Date Recorded Have you ever been in or are you currently in a harmful physical or emotional relationship or is someone making you feel afraid or unsafe? 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 Medical Devices Implanted Type Area Record Keeper Device Identifier Shelf Expiration Date Model / Serial / Lot [employer] Active Fixation Steroid Eluting Latex Free Sterile Right Atrium Ventricle Ultipace 58cm [id number] - [id number] - [id number] Implanted:Qty: 1 on 01/08/2025 by Ty Lamb MD at [facility] Lead Left: Chest [employer] [id number] 09/01/2027 [id number]/58 / [id number] / [employer] Active Fixation Steroid Eluting Latex Free Sterile Right Atrium Ventricle Ultipace 52cm [id number]/52 - [id number] - [id number] Implanted:Qty: 1 on 01/08/2025 by Ty Lamb MD at [facility] Lead Left: Chest [employer] [id number] 10/31/2027 [id number]/52 / [id number] / [employer] Assurity Mri [id number] 2 Chamber Is-1 Connector Thk6mm Pacemaker [id number] - [id number] - [id number] Implanted:Qty: 1 on 01/08/2025 by Ty Lamb MD at [facility] Pacemaker Left: Chest [employer] [id number] 06/01/2026 [id number] / [id number] / [employer] Ams 700 Kit Accessory Penile Prosthesis [id number] - [id number] Implanted:Qty: 1 on 06/18/2024 by Jose David Betancourt MD at [facility] N/A: Groin [employer] [id number] 04/08/2029 [id number] / / [id number] [employer] A[employer] Spectra 12/14mm .5cm Cylinder Concealable Malleable Rear Tip [id number] - [id number] Implanted:Qty: 1 on 06/18/2024 by Jose David Betancourt MD at [facility] N/A: Penis [employer] [id number] 02/15/2029 [id number] / / [id number] [employer] 700 Preconnect 1 Ms Pump 2 Cylinder Penoscrotal Prosthesis [id number] - [id number] Implanted:Qty: 1 on 06/18/2024 by Jose David Betancourt MD at [facility] N/A: Penis [employer] [id number] 10/13/2025 [id number] / / [id number] [employer] Conceal Low Profile [place] 100ml Prosthesis Inhibizone Sterile Latex Free 500323-51 - [id number] Implanted:Qty: 1 on 06/18/2024 by Jose David Betancourt MD at [facility] Left: Pelvis [employer] [id number] 04/22/2026 [id number] / / [id number] Procedures Procedure Name Priority Date/Time Associated Diagnosis [...] METABOLIC PANEL STAT 01/07/2025 4:45 PM CDT ND ARTL CATHJ/CANNULJ MNTR/TRANSFUSION SPX PRQ Routine 01/07/2025 [...] HIGH-SENSITIVITY 2-HOUR Timed 01/07/2025 10:28 AM CDT ND CRITICAL CARE ILL/INJURED PATIENT INIT 30-74 MIN [...] testing for HIV-1 RNA. Testing performed by: [address] [address] Blood 03/26/2025 6:55 AM CDT 03/26/2025 9:20 AM CDT Juany Teague MD LAB MICROBIOLOGY - GEN ERAL ORDERABLES Final Result JEFF IGLESIAS ([place]) 1 [facility] [place] [address] * RPR Blood (03/26/2025 6:55 AM CDT) Pathologist [facility] RPR Nonreactive Nonreactive Comment:Testing performed by : [facility], [address] [place] [address]., [address] Blood 03/26/2025 6:55 AM CDT 03/26/2025 9:20 AM CDT Juany Teague MD LAB MICROBIOLOGY - GEN ERAL ORDERABLES Final Result JEFF IGLESIAS ([place]) 1 [facility] [place] [address] * Folate (03/26/2025 6:55 AM CDT) [facility] Folic acid 14.5 >=5.0 ng/mL JEFF [facility] ([place]) Blood 03/26/2025 6:55 AM CDT 03/26/2025 7:10 AM CDT Juany Teague MD LAB BLOOD ORDERABLES F inal Result Performing Organization Address City/[facility]/ZIP Co de Phone Number JEFF IGLESIAS ([place]) 1 [facility] [place] [address] * Vitamin B12 (03/26/2025 6:55 AM CDT) [facility] Vitamin B12 634 230 - 1,250 pg/mL JEFF [facility] ([place]) Blood 03/26/2025 6:55 AM CDT 03/26/2025 7:10 AM CDT Juany Teague MD LAB BLOOD ORDERABLES F inal Result Performing Organization Address [facility] Co de Phone Number JEFF IGLESIAS ([place]) 1 [place] [address] * (ABNORMAL) POCT glucose (01/11/2025 1:21 PM CDT) [facility] Glucose, POC 220(H) 70 - 199 mg/dL POC Performer [id number] JEFF Blood 01/11/2025 1:21 PM CDT 01/11/2025 1:21 PM CDT Génesis Delatorre MD LAB POCT ORDERABLES - DEVICE Final Result Performing Organization Address City/[facility] Co de Phone Number SAMANTHAROGER DAVIE [address] Department [place] [address] * eGFR (01/11/2025 1:00 PM CDT) [facility] eGFR >90 >=60 mL/min/1. 73 m2 [...] CDT 01/11/2025 1:00 PM CDT Jose Vega HOME AGENT LAB BLOOD ORDERABLES Final Result [facility] [address] Department [place] [address] * (ABNORMAL) Renal function panel (01/11/2025 1:00 PM CDT) Sodium 141 135 - 145 mmol/L Potassium, pl 3.8 3.3 - 4.9 mmol/L [facility] Chloride 100 97 - 110 mmol/L [facility] CO2 27 22 - 32 mmol/L [facility] Anion gap 14 2 - 15 mmol/L [facility] BUN 16 6 - 25 mg/dL [facility] Creatinine 0.67(L) 0.80 - 1.30 mg/dL [facility] Glucose 198 70 - 199 mg/dL [facility] Comment: Interpretive Data Fasting glucose >/= 126 [...] 2022. Calcium 9.3 8.5 - 10.3 mg/dL [facility] Phosphorus, pl 2.8 2.3 - 4.5 mg/dL [facility] Albumin 3.6 3.5 - 5.0 g/dL [facility] Blood 01/11/2025 1:00 PM CDT 01/11/2025 1:00 PM CDT us oJse Vega NP LAB BLOOD ORDERABLES Final Result JEFF [facility] Department [place] [address] * eGFR (01/11/2025 9:11 AM CDT) eGFR [...] ORDERABLES Final R esult Performing Organization Address City/[facility]/ZIP Co de Phone Number JEFF BRODER[place] [address] [place] [address] * (ABNORMAL) CBC without differential [...] BLOOD ORDERABLES Final Result Performing Organization Address City/[facility] Co de Phone Number JEFF BRODERICK [address] Department of linkedü [place], [place] [address] * (ABNORMAL) CBC without differential (01/11/2025 9:11 AM CDT) WBC 8.77 3.80 - 9.90 K/cumm Hgb 11.0(L) 13.0 - 17.5 g/dL [facility] CH Hct 36.3(L) 38.9 - 50.3 % [facility] CH Plt 258 150 - 400 K/cumm [facility] CH MPV 9.0(L) 9.1 - 12.3 fL [facility] CH RBC 4.17(L) 4.30 - 5.80 M/cumm [facility] MCV 87.1 81.3 - 96.4 fL [facility] MCH 26.4(L) 27.1 - 33.3 pg [facility] MCHC 30.3(L) 32.3 - 35.7 g/dL [facility] RDW CV 13.8 11.1 - 14.9 % [facility] RDW SD 44.1 35.7 - 48.1 fL [facility] NRBC abs 0.00 0.00 - 0.01 K/cumm [facility] Blood 01/11/2025 9:11 AM CDT 01/11/2025 1:02 PM CDT us Ty Lamb MD LAB BLOOD ORDERABLES Final R esult [facility] [address] Department [place] [address] * (ABNORMAL) Renal function panel (01/11/2025 9:11 AM CDT) Sodium 138 135 - 145 mmol/L Potassium, pl 3.7 3.3 - 4.9 mmol/L [facility] Chloride 98 97 - 110 mmol/L [facility] CO2 29 22 - 32 mmol/L [facility] Anion gap 11 2 - 15 mmol/L [facility] BUN 16 6 - 25 mg/dL [facility] Creatinine 0.67(L) 0.80 - 1.30 mg/dL [facility] Glucose 198 70 - 199 mg/dL [facility] Comment: Interpretive Data Fasting glucose >/= 126 [...] CH Albumin 3.7 3.5 - 5.0 g/dL [facility] Blood 01/11/2025 9:11 AM CDT 01/11/2025 1:02 PM CDT Ty Lamb MD LAB BLOOD ORDERABLES Final R esult Performing Organization Address City/[facility]/ZIP Co de Phone Number JEFF [place] [address] Department of linked[place], [place] [id number] * POCT glucose (01/11/2025 8:12 AM CDT) Pathologist [facility] Glucose, POC 189 70 - 199 mg/dL POC Performer [id number] [facility] Blood 01/11/2025 8:12 AM CDT 01/11/2025 8:12 AM CDT Génesis Delatorre MD LAB POCT ORDERABLES - DEVICE Final Result Performing Organization Address [facility] Co de Phone Number SAMANTHAROGER BRODERICK [address] [place] [address] * (ABNORMAL) POCT glucose (01/10/2025 9:34 PM CDT) [facility] Glucose, POC 250(H) 70 - 199 mg/dL POC Performer [id number] [facility] Blood 01/10/2025 9:34 PM CDT 01/10/2025 9:34 PM CDT Génesis Delatorre MD LAB POCT ORDERABLES - DEVICE Final Result Performing Organization Address City/[facility] Co de Phone Number JEFF BRODER[address] Department [place] [address] * TRANSTHORACIC ECHO (TTE) LIMITED/FOLLOW UP W LTD DOPPLER/CF WO CONTRAST (01/10/2025 6:28 PM CDT) EF Mod BP 60 % CONS SCIMAGE Anatomical Region Laterality Modality Ultrasound 01/10/2025 5:28 PM CDT Narrative 01/10/2025 5:59 [place] [address] Limited Echocardiogram Report Patient Name: SHAWN SHULTZ B : 1950 Study Date: 01/10/2025 5:28:40 PM Gender: M Tech: DC Location: [id number] Ref Provider: KRISTAL EDWARD Height(Cm): 168 BSA: [...] Procedure Note Jose Godoy MD - 01/10/2025 [place] [address] Limited Echocardiogram Report Patient Name: SHAWN SHULTZ B : 1950 Study Date: 01/10/2025 5:28:40 PM Gender: M Tech: DC Location: [place] [address] Ref Provider: KRISTAL EDWARD Height(Cm): 168 BSA: [...] 246(H) 70 - 199 mg/dL POC Performer [id number] [facility] Blood 01/10/2025 4:49 PM CDT 01/10/2025 4:49 PM CDT Génesis Delatorre MD LAB POCT ORDERABLES - DEVICE Final Result Performing Organization Address City/[facility]/ZIP Co de Phone Number JEFF [address] Department [place] [address] * Type and screen (01/10/2025 12:49 PM CDT) ABO Rh A Negative Antonio, indirect Negative [facility] Blood 01/10/2025 12:4 9 PM CDT 01/10/2025 12:53 PM CDT Narrative [facility] - 01/10/2025 1:41 PM CDT Has the patient had Daratumumab or Isatuximab in the past 6 months?->Unknown Ty Lamb MD LAB BLOOD BANK TEST ORDERABL ES Final Result Performing Organization Address City/[facility]/ZIP Co de Phone Number JEFF BRODERICK [address] [facility] [place] [address] * (ABNORMAL) POCT glucose (01/10/2025 12:05 PM CDT) Glucose, POC 208(H) 70 - 199 mg/dL POC Performer [id number] [facility] Blood 01/10/2025 12:0 5 PM CDT 01/10/2025 12:05 PM CDT Génesis Delatorre MD LAB POCT ORDERABLES - DEVICE Final Result Performing Organization Address [facility] Co de Phone Number JEFF BRODERICK [address] [place] [address] * POCT glucose (01/10/2025 8:05 AM CDT) Glucose, POC 194 70 - 199 mg/dL POC Performer [id number] [facility] Blood 01/10/2025 8:05 AM CDT 01/10/2025 8:05 AM CDT Génesis Delatorre MD LAB POCT ORDERABLES - DEVICE Final Result Performing Organization Address [facility] Co de Phone Number JEFF BRODERICK [address] [facility] [place] [address] * Calcium, ionized, whole blood (01/10/2025 7:43 AM CDT) Ca, ionized, bld 4.63 4.50 - 5.10 mg/dL Blood 01/10/2025 7:43 AM CDT 01/10/2025 7:53 AM CDT Ty Lamb MD LAB BLOOD ORDERABLES Final R esult Performing Organization Address City/[facility] Co de Phone Number JEFF BRODERICK [address] Department [place] [address] * eGFR (01/10/2025 7:43 AM CDT) eGFR [...] LAB BLOOD ORDERABLES Fin al Result JEFF [address] [place] [address] * (ABNORMAL) CBC without differential (01/10/2025 7:43 AM CDT) WBC 8.90 3.80 - 9.90 K/cumm Hgb 9.9(L) 13.0 - 17.5 g/dL [facility] Hct 32.4(L) 38.9 - 50.3 % [facility] Plt 232 150 - 400 K/cumm [facility] MPV 8.7(L) 9.1 - 12.3 fL [facility] RBC 3.78(L) 4.30 - 5.80 M/cumm [facility] MCV 85.7 81.3 - 96.4 fL [facility] MCH 26.2(L) 27.1 - 33.3 pg [facility] MCHC 30.6(L) 32.3 - 35.7 g/dL [facility] CH RDW CV 13.6 11.1 - 14.9 % [facility] CH RDW SD 42.4 35.7 - 48.1 fL [facility] NRBC abs 0.00 0.00 - 0.01 K/cumm [facility] Blood 01/10/2025 7:43 AM CDT 01/10/2025 7:55 AM CDT Ty Lamb MD LAB BLOOD ORDERABLES Final R esult JEFF [facility] [address] [employer] [place], [place] [id number] * Magnesium (01/10/2025 7:43 AM CDT) Magnesium 1.9 1.4 - 2.5 mg/dL Blood 01/10/2025 7:43 AM CDT 01/10/2025 7:55 AM CDT Ty Lamb MD LAB BLOOD ORDERABLES Final R esult Performing Organization Address City/[facility] Co de Phone Number JEFF BRODERICK [address] [employer] [place], [place] [id number] * (ABNORMAL) Renal function panel (01/10/2025 7:43 AM CDT) Sodium 136 135 - 145 mmol/L Potassium, pl 4.1 3.3 - 4.9 mmol/L [facility] Chloride 102 97 - 110 mmol/L [facility] CO2 26 22 - 32 mmol/L [facility] Anion gap 8 2 - 15 mmol/L [facility] BUN 14 6 - 25 mg/dL [facility] Creatinine 0.67(L) 0.80 - 1.30 mg/dL [facility] Glucose 186 70 - 199 mg/dL [facility] Comment: Interpretive Data Fasting glucose >/= 126 [...] 2022. Calcium 8.9 8.5 - 10.3 mg/dL [facility] Phosphorus, pl 2.3 2.3 - 4.5 mg/dL [facility] Albumin 3.3(L) 3.5 - 5.0 g/dL [facility] Blood 01/10/2025 7:43 AM CDT 01/10/2025 7:55 AM CDT us Ty Lamb MD LAB BLOOD ORDERABLES Final R esult [facility] [address] [place] [address] * XR Chest 1 View (01/10/2025 6:05 [...] 239(H) 70 - 199 mg/dL POC Performer [id number] [facility] Blood 01/09/2025 9:09 PM CDT 01/09/2025 9:09 PM CDT Génesis Delatorre MD LAB POCT ORDERABLES - DEVICE Final Result Performing Organization Address [facility] Co de Phone Number JEFF BRODERICK [address] [place] [address] * (ABNORMAL) POCT glucose (01/09/2025 5:32 PM CDT) Glucose, POC 254(H) 70 - 199 mg/dL POC Performer [id number] [facility] Blood 01/09/2025 5:32 PM CDT 01/09/2025 5:32 PM CDT Génesis Delatorre MD LAB POCT ORDERABLES - DEVICE Final Result Performing Organization Address City/[facility] Co de Phone Number JEFF BRODERICK [address] Department [place] [address] * (ABNORMAL) POCT glucose (01/09/2025 12:59 PM CDT) Glucose, POC 226(H) 70 - 199 mg/dL POC Performer [id number] [facility] Blood 01/09/2025 12:5 9 PM CDT 01/09/2025 12:59 PM CDT Génesis Delatorre MD LAB POCT ORDERABLES - DEVICE Final Result Performing Organization Address City/[facility]/ZIP Co de Phone Number JEFF BRODERICK [address] Department [place] [address] * POCT glucose (01/09/2025 7:47 AM CDT) Glucose, POC 191 70 - 199 mg/dL POC Performer [id number] [facility] Blood 01/09/2025 7:47 AM CDT 01/09/2025 7:47 AM CDT Génesis Delatorre MD LAB POCT ORDERABLES - DEVICE Final Result Performing Organization Address [facility] Co de Phone Number SAMANTHAROGER BRODERICK [address] [place] [address] * Calcium, ionized, whole blood (01/09/2025 6:20 AM CDT) Ca, ionized, bld 4.52 4.50 - 5.10 mg/dL Blood 01/09/2025 6:20 AM CDT 01/09/2025 7:08 AM CDT Ty Lamb MD LAB BLOOD ORDERABLES Final R esult Performing Organization Address City/[facility] Co de Phone Number JEFF BRODERICK [address] [address] [facility] [place] [address] * eGFR (01/09/2025 6:20 AM CDT) eGFR [...] AM CDT 01/09/2025 7:11 AM CDT Fran Garcia NP LAB BLOOD ORDERABLES Fin al Result [facility] [address] [place] [address] * (ABNORMAL) CBC without differential (01/09/2025 6:20 AM CDT) WBC 10.74(H) 3.80 - 9.90 K/cumm Hgb 9.7(L) 13.0 - 17.5 g/dL CERNER Hct 32.0(L) 38.9 - 50.3 % [facility] Plt 279 150 - 400 K/cumm [facility] MPV 8.8(L) 9.1 - 12.3 fL [facility] RBC 3.70(L) 4.30 - 5.80 M/cumm [facility] MCV 86.5 81.3 - 96.4 fL [facility] MCH 26.2(L) 27.1 - 33.3 pg CERNER MCHC 30.3(L) 32.3 - 35.7 g/dL [facility] RDW CV 13.4 11.1 - 14.9 % [facility]ER CH RDW SD 42.2 35.7 - 48.1 fL [facility] NRBC abs 0.00 0.00 - 0.01 K/cumm [facility] Blood 01/09/2025 6:20 AM CDT 01/09/2025 7:11 AM CDT Ty Lamb MD LAB BLOOD ORDERABLES Final R esult Performing Organization Address City/[facility] Co de Phone Number JEFF [address] [place] [address] * Magnesium (01/09/2025 6:20 AM CDT) Pathologist [facility] Magnesium 1.9 1.4 - 2.5 mg/dL Blood 01/09/2025 6:20 AM CDT 01/09/2025 7:11 AM CDT Ty Lamb MD LAB BLOOD ORDERABLES Final R esult Performing Organization Address [facility] de Phone Number [facility] [address] [address] [place] [address] * (ABNORMAL) Renal function panel (01/09/2025 6:20 AM CDT) Sodium 135 135 - 145 mmol/L Potassium, pl 3.9 3.3 - 4.9 mmol/L [facility] Chloride 101 97 - 110 mmol/L [facility] CO2 24 22 - 32 mmol/L [facility] Anion gap 10 2 - 15 mmol/L [facility] BUN 17 6 - 25 mg/dL [facility] Creatinine 0.75(L) 0.80 - 1.30 mg/dL [facility] Glucose 195 70 - 199 mg/dL [facility] Comment: Interpretive Data Fasting glucose >/= 126 [...] LAB BLOOD ORDERABLES Final R esult JEFF [address] [place] [address] * XR Chest 1 View (01/09/2025 6:15 [...] 161 70 - 199 mg/dL POC Performer [id number] JEFF BRODERICK Blood 01/08/2025 8:21 PM CDT 01/08/2025 8:21 PM CDT Génesis Delatorre MD LAB POCT ORDERABLES - DEVICE Final Result JEFF [address] [place] [address] * XR Chest 1 Vw Portable (01/08/2025 [...] PROCEDURES F inal Result Performing Organization Address [facility] Co de Phone Number RAD_PACS_ * (ABNORMAL) POCT glucose (01/08/2025 11:56 AM CDT) Glucose, POC 222(H) 70 - 199 mg/dL POC Performer [id number] JEFF Blood 01/08/2025 11:5 6 AM CDT 01/08/2025 11:56 AM CDT Ty Lamb MD LAB POCT ORDERABLES - DEVICE Final Result Performing Organization Address [facility] Co de Phone Number [facility] [address] [place] [address] * Infection Prevention MRSA Only (Staphylococcus aureus) PCR Nasal (01/08/2025 8:06 AM CDT) PCR Scrn, Methicillin resistant Staphylococcus aureus (MRSA) Not Detected Not Detected [facility] Comment: Interpretive Data Testing performed using Nucleic Acid Amplification with the VeriShow Xpert MRSA NxG Assay. This assay detects target DNA from mecA, mecC and the SCCmec insertion site of Staphylococcus aureus using Real-Time PCR and has been cleared by the FDA. Performance characteristics have been verified by the [facility]. Current Interpretive Data was last revised on 2023 Nasal 01/08/2025 8:06 AM CDT 01/08/2025 8:11 AM CDT Ty Lamb MD LAB MICROBIOLOGY - GENERAL O RDERABLES Final Result Performing Organization Address [facility] de Phone Number JEFF [address] Department [place] [address] * (ABNORMAL) POCT glucose (01/08/2025 8:03 AM CDT) Glucose, POC 237(H) 70 - 199 mg/dL POC Performer [id number] JEFF Blood 01/08/2025 8:03 AM CDT 01/08/2025 8:03 AM CDT Génesis Delatorre MD LAB POCT ORDERABLES - DEVICE Final Result Performing Organization Address [facility] de Phone Number JEFF BRODERICK [address] [address] [place] [address] * Critical Care (01/08/2025 7:02 AM CDT) [...] plan with the ICU team and other medical/organizational development consultant staff, making frequent assessments and decisions [...] 163 70 - 199 mg/dL POC Performer [id number] JEFF Blood 01/08/2025 5:06 AM CDT 01/08/2025 5:06 AM CDT Ty Lamb MD LAB POCT ORDERABLES - DEVICE Final Result Performing Organization Address [facility] Co de Phone Number JEFF [address] [address] [place] [place] [address] * eGFR (01/08/2025 12:33 AM [...] 01/08/2025 12:33 AM CDT us Fran Garcia HOME AGENT LAB BLOOD ORDERABLES Fin al Result Performing Organization Address City/[facility]/ZIP Co de Phone Number JEFF BRODERICK [address] [address] [place] [address] * Magnesium (01/08/2025 12:33 AM CDT) Magnesium 1.9 1.4 - 2.5 mg/dL Blood 01/08/2025 12:3 3 AM CDT 01/08/2025 12:33 AM CDT us Ty Lamb MD LAB BLOOD ORDERABLES Final R esult Performing Organization Address City/[facility]/ZIP Co de Phone Number JEFF BRODERICK [address] [address] [employer] [place] [address] * (ABNORMAL) Renal function panel (01/08/2025 12:33 AM CDT) Sodium 136 135 - 145 mmol/L Potassium, pl 4.0 3.3 - 4.9 mmol/L [facility] Chloride 103 97 - 110 mmol/L [facility] CH CO2 24 22 - 32 mmol/L [facility] CH Anion gap 9 2 - 15 mmol/L [facility] CH BUN 14 6 - 25 mg/dL [facility] Creatinine 0.71(L) 0.80 - 1.30 mg/dL [facility] Glucose 212(H) 70 - 199 mg/dL [facility] Comment: Interpretive Data Fasting glucose >/= 126 [...] [facility]ER Albumin 3.4(L) 3.5 - 5.0 g/dL [facility] Blood 01/08/2025 12:3 3 AM CDT 01/08/2025 12:33 AM CDT us Ty Lamb MD LAB BLOOD ORDERABLES Final R esult Performing Organization Address City/[facility]/ZIP Co de Phone Number JEFF BRODERICK [address] [address] [place] [address] * (ABNORMAL) POCT glucose (01/08/2025 12:26 AM CDT) Glucose, POC 232(H) 70 - 199 mg/dL POC Performer [id number] JEFF Blood 01/08/2025 12:2 6 AM CDT 01/08/2025 12:26 AM CDT Génesis Delatorre MD LAB POCT ORDERABLES - DEVICE Final Result Performing Organization Address [facility] de Phone Number [facility] [address] Department [place] [address] * (ABNORMAL) Troponin T high-sensitivity (01/08/2025 12:20 AM CDT) Trop T hs 72(H) <=22 ng/L Comment: Interpretive Data For further hscTnT resources including the diagnostic algorithm and an aid in interpretation, copy and paste this link: https://nrl.testcatalog.org/show/hsTrop Current Interpretive Data last revised 2020. Blood 01/08/2025 12:2 0 AM CDT 01/08/2025 12:34 AM CDT Fran Garcia HOME AGENT LAB BLOOD ORDERABLES Fin al Result Performing Organization Address [facility] de Phone Number [facility] [address] [address] Department [place] [address] * Calcium, ionized, whole blood (01/08/2025 12:20 AM CDT) Pathologist [facility] Ca, ionized, bld 4.73 4.50 - 5.10 mg/dL Blood 01/08/2025 12:2 0 AM CDT 01/08/2025 12:35 AM CDT Ty Lamb MD LAB BLOOD ORDERABLES Final R esult JEFF BRODERICK [address] [address] [place] [address] * (ABNORMAL) CBC without differential (01/08/2025 12:20 AM CDT) WBC 10.30(H) 3.80 - 9.90 K/cumm Hgb 9.8(L) 13.0 - 17.5 g/dL [facility] Hct 31.1(L) 38.9 - 50.3 % [facility] Plt 341 150 - 400 K/cumm [facility] MPV 8.6(L) 9.1 - 12.3 fL [facility] RBC 3.66(L) 4.30 - 5.80 M/cumm [facility] MCV 85.0 81.3 - 96.4 fL [facility] MCH 26.8(L) 27.1 - 33.3 pg [facility] MCHC 31.5(L) 32.3 - 35.7 g/dL [facility] RDW CV 13.3 11.1 - 14.9 % [facility] RDW SD 41.7 35.7 - 48.1 fL [facility] NRBC abs 0.00 0.00 - 0.01 K/cumm [facility] Blood 01/08/2025 12:2 0 AM CDT 01/08/2025 12:39 AM CDT us Ty Lamb MD LAB BLOOD ORDERABLES Final R esult JEFF [address] Department [place] [address] * (ABNORMAL) POCT glucose (01/07/2025 9:55 PM CDT) Glucose, POC 249(H) 70 - 199 mg/dL POC Performer [id number] [facility] Blood 01/07/2025 9:55 PM CDT 01/07/2025 9:55 PM CDT Ty Lamb MD LAB POCT ORDERABLES - DEVICE Final Result Performing Organization Address [facility]/ZIP Co de Phone Number JEFF BRODERICK [address] [address] Department [place] [address] * Critical Care (01/07/2025 8:43 PM CDT) [...] plan with the patient's team and other medical/organizational development consultant staff. This time was in addition to and separate from care provided by other practitioners on this day of service. us Heri Tovar HOME AGENT IN CLINIC/BEDSIDE ORDER BEATRIZ Final Result * (ABNORMAL) POCT glucose (01/07/2025 7:54 PM CDT) Glucose, POC 266(H) 70 - 199 mg/dL POC Performer [id number] [facility] Blood 01/07/2025 7:54 PM CDT 01/07/2025 7:54 PM CDT us Ty Lamb MD LAB POCT ORDERABLES - DEVICE Final Result Performing Organization Address [facility] Co de Phone Number JEFF DAVIE [address] [address] [place] [address] * (ABNORMAL) Troponin T high-sensitivity (01/07/2025 6:24 PM CDT) Trop T hs 81(H) <=22 ng/L Comment: Interpretive Data For further hscTnT resources including the diagnostic algorithm and an aid in interpretation, copy and paste this link: https://nrl.testcatalog.org/show/hsTrop Current Interpretive Data last revised 2020. Blood 01/07/2025 6:24 PM CDT 01/07/2025 6:32 PM CDT Fran Garcia HOME AGENT LAB BLOOD ORDERABLES Fin al Result Performing Organization Address [facility] de Phone Number JEFF [address] [address] [facility] Department [place] [address] * Type and screen (01/07/2025 6:24 PM CDT) Antonio, indirect Negative ABO Rh A Negative [facility] Blood 01/07/2025 6:24 PM CDT 01/07/2025 6:42 PM CDT Narrative [facility] - 01/07/2025 7:44 PM CDT Has the patient had Daratumumab or Isatuximab in the past 6 months?->Unknown Fran Garcia NP LAB BLOOD BANK TEST ORDE RABLES Final Result Performing Organization Address [facility] de Phone Number JEFF [address] [address] [facility] Department [place] [address] * Urinalysis reflex to microscopic (01/07/2025 5:32 [...] tendency for uric acid stone formation. Source: Echometrix Current Interpretive Data was last revised on [...] Reflex conditions for microscopic UA not met. [facility] Urine 01/07/2025 5:32 PM CDT 01/07/2025 5:42 PM CDT Fran Garcia NP LAB URINE ORDERABLES Fin al Result Performing Organization Address [facility] Co de Phone Number [facility] [address] [address] [place] [place] [address] * Strep pneumoniae antigen, urine Urine (01/07/2025 [...] AL ORDERABLES Final Result Performing Organization Address [facility] Co de Phone Number [facility] [address] [address] [address] * Legionella antigen Urine (01/07/2025 5:32 PM CDT) [facility] Legionella Ag Negative Negative Comment: Interpretive Data This test detects only Legionella pneumophila serogroup 1 antigen. Current interpretive data was last revised on 2019. Urine 01/07/2025 5:32 PM CDT 01/07/2025 5:42 PM CDT Fran Garcia NP LAB MICROBIOLOGY - GENER AL ORDERABLES Final Result [facility] [address] [place] [address] * (ABNORMAL) Respiratory pathogen panel Nasopharyngeal (01/07/2025 5:30 PM CDT) [facility] Influenza A RNA Not Detected Not Detected Influenza B RNA Not Detected Not Detected [facility] RSV RNA Not Detected Not Detected [facility] COVID-19 RNA Not Detected Not Detected [facility] Coronavirus 229E RNA Not Detected Not Detected [facility] Coronavirus HKU1 RNA Not Detected Not Detected [facility] Coronavirus NL63 RNA Not Detected Not Detected [facility] Coronavirus OC43 RNA Not Detected Not Detected [facility] Adenovirus DNA Not Detected Not Detected [facility] Metapneumovirus RNA Detected(A) Not Detected [facility] Rhinovirus/Enterov irus RNA Not Detected Not Detected [facility] Parainfluenza 1 RNA Not Detected Not Detected [facility] Parainfluenza 2 RNA Not Detected Not Detected [facility] Parainfluenza 3 RNA Not Detected Not Detected [facility] Parainfluenza 4 RNA Not Detected Not Detected [facility] B. pertussis DNA Not Detected Not Detected [facility] B. parapertussis DNA Not Detected Not Detected [facility] C. pneumoniae DNA Not Detected Not Detected [facility] M. pneumoniae DNA Not Detected Not Detected [facility] Comment: Interpretive Data The Pharnext FilmArray Respiratory Panel (RP2.1) assay is a [...] assay has FDA clearance for testing of HOME AGENT swabs. The performance characteristics of this assay have been determined by [facility]. Current interpretive data was last revised on 2021. Nasopharyngeal 01/07/2025 5: 30 PM CDT 01/07/2025 6:35 PM CDT Shanice Pacheco 01/07/2025 8:39 PM CDT Is the Patient experiencing symptoms consistent with COVID?->Unknown Surveillance testing for transplant patient?->No Fran Garcia HOME AGENT LAB MICROBIOLOGY - GENER AL ORDERABLES Final Result JEFF BRODERICK [address] [place] [address] CH * Critical Care (01/07/2025 4:59 PM [...] plan with the ICU team and other medical/organizational development consultant staff, making frequent assessments and decisions [...] in the medical record us Fran Garcia HOME AGENT IN CLINIC/BEDSIDE ORDERA BLES Final Result * (ABNORMAL) Troponin T high-sensitivity (01/07/2025 4:45 PM CDT) Trop T hs 79(H) <=22 ng/L Comment: Interpretive Data For further hscTnT resources including the diagnostic algorithm and an aid in interpretation, copy and paste this link: https://nrl.testcatalog.org/show/hsTrop Current Interpretive Data last revised 2020. Blood 01/07/2025 4:45 PM CDT 01/07/2025 5:10 PM CDT us Fran Garcia HOME AGENT LAB BLOOD ORDERABLES Fin al Result Performing Organization Address [facility]/State/ZIP Co de Phone Number JEFF [address] [address] [facility] [place] [address] * Sepsis Lactate w/ Reflex (01/07/2025 4:45 PM CDT) Sepsis Lactate 1.9 0.7 - 2.0 mmol/L Blood 01/07/2025 4:45 PM CDT 01/07/2025 5:10 PM CDT Sindhu Whittington MD LAB BLOOD ORDERABLES Iris l Result Performing Organization Address [facility] Co de Phone Number JEFF [address] [address] [facility] Department linked[place], [place] [address] * Lactate (01/07/2025 4:45 PM CDT) Pathologist [facility] Lactate 1.9 0.7 - 2.0 mmol/L Blood 01/07/2025 4:45 PM CDT 01/07/2025 5:10 PM CDT Fran Garcia HOME AGENT LAB BLOOD ORDERABLES Fin al Result Performing Organization Address [facility] Co de Phone Number JEFF [address] [address] [facility] Department linked[place], [place] [address] * Calcium, ionized, whole blood (01/07/2025 4:45 PM CDT) Pathologist [facility] Ca, ionized, bld 4.62 4.50 - 5.10 mg/dL Blood 01/07/2025 4:45 PM CDT 01/07/2025 5:10 PM CDT Fran Garcia HOME AGENT LAB BLOOD ORDERABLES Fin al Result Performing Organization Address [facility] Co de Phone Number JEFF [address] [address] [facility] Department [place] [address] * eGFR (01/07/2025 4:45 PM CDT) eGFR [...] LAB BLOOD ORDERABLES Fin al Result JEFF [address] [address] [place] [address] * (ABNORMAL) Pro B-type natriuretic peptide (01/07/2025 4:45 PM CDT) Pathologist [facility] NT-proBNP 670(H) <=300 pg/mL Comment: Interpretive Comments: [...] CDT 01/07/2025 5:10 PM CDT Fran Garcia HOME AGENT LAB BLOOD ORDERABLES Fin al Result Performing Organization Address [facility] [place] [address] [address] [place] [address] * Thyroid Function Mobile (01/07/2025 4:45 PM CDT) TSH 0.75 0.30 - 4.20 mcIUnit/mL Blood 01/07/2025 4:45 PM CDT 01/07/2025 5:10 PM CDT Fran Garcia HOME AGENT LAB BLOOD ORDERABLES Fin al Result Performing Organization Address [facility] [place] [address] [address] [employer] [place], [place] [address] * aPTT (01/07/2025 4:45 PM CDT) aPTT 32 28 - 38 sec Comment: Interpretive Data Heparin therapeutic range: 66.0 - 100.0 seconds. Range based on correlation with therapeutic heparin activity range of 0.3 - 0.7 Units/mL. Current interpretive data was last revised on 2023. Blood 01/07/2025 4:45 PM CDT 01/07/2025 5:10 PM CDT Fran Garcia HOME AGENT LAB BLOOD ORDERABLES Fin al Result JEFF BRODERICK [address] [address] Department [place] [address] * (ABNORMAL) Protime-INR (01/07/2025 4:45 PM CDT) [...] ORDERABLES Fin al Result Performing Organization Address City/[facility]/ZIP Co de Phone Number JEFF BRODERICK [address] [address] [place] [place] [address] * Fibrinogen (01/07/2025 4:45 PM CDT) Fibrinogen 359 170 - 400 mg/dL Blood 01/07/2025 4:45 PM CDT 01/07/2025 5:10 PM CDT Fran Garcia HOME AGENT LAB BLOOD ORDERABLES Fin al Result JEFF BRODERICK [address] [address] Department [place] [address] * (ABNORMAL) CBC without differential (01/07/2025 4:45 PM CDT) Pathologist [facility] WBC 9.43 3.80 - 9.90 K/cumm Hgb 9.9(L) 13.0 - 17.5 g/dL [facility] Hct 31.6(L) 38.9 - 50.3 % [facility] Plt 306 150 - 400 K/cumm [facility] MPV 8.7(L) 9.1 - 12.3 fL [facility] RBC 3.72(L) 4.30 - 5.80 M/cumm [facility] MCV 84.9 81.3 - 96.4 fL [facility] MCH 26.6(L) 27.1 - 33.3 pg [facility] MCHC 31.3(L) 32.3 - 35.7 g/dL [facility] RDW CV 13.4 11.1 - 14.9 % [facility] RDW SD 41.4 35.7 - 48.1 fL [facility] NRBC abs 0.00 0.00 - 0.01 K/cumm [facility] CH Blood 01/07/2025 4:45 PM CDT 01/07/2025 5:12 PM CDT Fran Garcia HOME AGENT LAB BLOOD ORDERABLES Fin al Result Performing Organization Address [facility] de Phone Number [facility] [address] [address] [facility] Department linked[place], [place] [address] * Uric acid (01/07/2025 4:45 PM CDT) [facility] Uric acid 4.0 3.0 - 8.0 mg/dL Blood 01/07/2025 4:45 PM CDT 01/07/2025 5:10 PM CDT Fran Garcia HOME AGENT LAB BLOOD ORDERABLES Fin al Result Performing Organization Address [facility] de Phone Number [facility] [address] [address] [facility] Department [place] [address] * Phosphorus (01/07/2025 4:45 PM CDT) Phosphorus, pl 2.7 2.3 - 4.5 mg/dL Blood 01/07/2025 4:45 PM CDT 01/07/2025 5:10 PM CDT Fran Garcia HOME AGENT LAB BLOOD ORDERABLES Fin al Result Performing Organization Address [facility] Co de Phone Number JEFF BRODERICK [address] [address] [facility] Department [place] [address] * Magnesium (01/07/2025 4:45 PM CDT) Magnesium 1.7 1.4 - 2.5 mg/dL Blood 01/07/2025 4:45 PM CDT 01/07/2025 5:10 PM CDT Fran Garcia HOME AGENT LAB BLOOD ORDERABLES Fin al Result Performing Organization Address [facility] de Phone Number SAMANTHAROGER BRODERICK [address] [address] [facility] Department [place] [address] * Blood gas, venous (01/07/2025 4:45 PM CDT) Pathologist [facility] pH, Venous 7.41 7.32 - 7.43 PCO2, [...] CDT 01/07/2025 5:10 PM CDT Fran Garcia HOME AGENT LAB BLOOD ORDERABLES Fin al Result Performing Organization Address [facility] Co de Phone Number JEFF DAVIE [address] [address] [facility] [place] [address] * Creatine kinase (CK), total (01/07/2025 4:45 PM CDT) CK 52 40 - 300 Units/L Blood 01/07/2025 4:45 PM CDT 01/07/2025 5:10 PM CDT Fran Garcia HOME AGENT LAB BLOOD ORDERABLES Fin al Result Performing Organization Address City/[facility]/ZIP Co de Phone Number JEFF [address] [address] [facility] [place] [address] * Creatine kinase (CK), total (01/07/2025 4:45 PM CDT) Pathologist [facility] CK 51 40 - 300 Units/L Blood 01/07/2025 4:45 PM CDT 01/07/2025 5:10 PM CDT Fran Garcia HOME AGENT LAB BLOOD ORDERABLES Fin al Result Performing Organization Address [facility] Co de Phone Number JEFF [address] [address] [facility] [place] [address] * Bilirubin, direct (01/07/2025 4:45 PM CDT) [facility] Bilirubin, direct 0.1 0.1 - 0.3 mg/dL Blood 01/07/2025 4:45 PM CDT 01/07/2025 5:10 PM CDT Fran Garcia HOME AGENT LAB BLOOD ORDERABLES Fin al Result Performing Organization Address [facility] Co de Phone Number SAMANTHAROGER [address] [address] [facility] [place] [address] * (ABNORMAL) Comprehensive metabolic panel (01/07/2025 4:45 PM CDT) Pathologist [facility] Sodium 138 135 - 145 mmol/L Potassium, [...] NP LAB BLOOD ORDERABLES Fin al Result [facility] [address] [address] Department [place] [address] * ND ARTL CATHJ/CANNULJ MNTR/TRANSFUSION SPX PRQ (01/07/2025 3:30 PM CDT) Narrative Fran Garcia NP - 01/07/2025 3:30 PM CDT Fran Garcia NP 01/26/2025 5:55 PM Arterial Line Insertion Date/Time: 01/07/2025 3:30 PM Performed by: Fran Garcia NP Authorized by: Fran Garcia NP [place] Protocol: RN Notified of Procedure: yes Informed [...] PM CDT Narrative 01/07/2025 3:24 [place] [address] Echocardiogram Report Patient Name: SHAWN SHULTZ BRI : 1950 Study Date: 01/07/2025 1:26:17 PM Gender: M Tech: JELANI Location: [id number] Ref Provider: FRAN GARCIA Height(Cm): 168 BSA: [...] Procedure Note Isidro Carvalho MD - 01/07/2025 [place] [address] Echocardiogram Report Patient Name: SHAWN SHULTZ BRI : 1950 Study Date: 01/07/2025 1:26:17 PM Gender: M Tech: JELANI Location: [id number] [facility] Provider: FRAN GARCIA Height(Cm): 168 BSA: [...] PM CDT) 01/07/2025 2:15 PM CDT Narrative [facility] - 01/07/2025 2:36 PM CDT Vent Rate: 96 bpm RR Interval: 625 msec ND Interval: 234 msec QRS Duration: 101 msec QT Interval: 367 msec QTC Interval: 420 msec P-R-T Porum: 24 - 119 - 97 degrees IMPRESSION: SINUS RHYTHM WITH FIRST DEGREE AV BLOCK INCOMPLETE RIGHT BUNDLE BRANCH BLOCK RIGHT VENTRICULAR HYPERTROPHY NONSPECIFIC ST \T\ T-WAVE ABNORMALITY Electronically Signed By: Washington Díaz MD, [facility] us Fran Garcia NP ECG ORDERABLES Final Re sult [facility] * X-ray chest 1 view [...] signed by: Zenon Wing M.D. Fran Garcia HOME AGENT IMG XR PROCEDURES Final Result * (ABNORMAL) POCT glucose (01/07/2025 12:53 PM CDT) Glucose, POC 212(H) 70 - 199 mg/dL POC Performer [id number] JEFF BRODERICK Blood 01/07/2025 12:5 3 PM CDT 01/07/2025 12:53 PM CDT Génesis Delatorre MD LAB POCT ORDERABLES - DEVICE Final Result JEFF BRODERICK [address] Department [place] [address] * (ABNORMAL) Troponin T high-sensitivity 2-hour (01/07/2025 10:28 AM CDT) Trop T hs 74(H) <=22 ng/L Comment: Michael Mcnulty RN ER Interpretive Data For further hscTnT resources including the diagnostic algorithm and an aid in interpretation, copy and paste this link: https://nrl.testcatalog.org/show/hsTrop Current Interpretive Data last revised 2020. Trop T hs delta 41(C) ng/L [facility] ([place]) Comment:Critical Result call ed by [id number] at 2025-01-07 11:19:30. Result Read Back by Michael Mcnulty RN ER Trop T hs interp Significa nt(C) [facility] ([place]) Comment:Critical Result call ed by [email or web address] at 2025-01-07 11:19:30. Result Read Back by Michael Mcnulty RN ER Blood 01/07/2025 10:2 8 AM CDT 01/07/2025 10:33 AM CDT us Jt Zacarias MD LAB BLOOD ORDERABLE S Final Result JEFF HARRIS ([place]) 1 [facility] Department [place] [address] * ND CRITICAL CARE ILL/INJURED PATIENT INIT 30-74 MIN [...] POCT glucose (01/07/2025 10:12 AM CDT) Pathologist [facility] Glucose, POC 219(H) 70 - 199 mg/dL Blood 01/07/2025 10:1 2 AM CDT 01/07/2025 10:12 AM CDT Jomar No MD LAB POCT ORDERABLES - NOAH CE Final Result JEFF [facility] [address] Department [place] [address] * TRANSTHORACIC ECHO (TTE) LIMITED/FOLLOW UP WO DOPPLER/CF WO CONTRAST (01/07/2025 9:32 AM CDT) Pathologist [facility] Estimated EF 65 % CONS SCIMAGE Anatomical Region Laterality Modality Ultrasound 01/07/2025 9:09 AM CDT Narrative 01/07/2025 9:54 AM CDT [address] [address] Limited Echocardiogram Report Patient Name: SHAWN SHULTZ BRI : 1950 Study Date: 01/07/2025 9:09:51 AM Gender: M Tech: AA Location: [facility] Ref Provider: JT ZACARIAS Height(Cm): BSA: [...] Procedure Note Jose Godoy MD - 01/07/[address], [place] [address] Limited Echocardiogram Report Patient Name: SHAWN SHULTZ BRI : 1950 Study Date: 01/07/2025 9:09:51 AM Gender: M Tech: AA Location: [facility] Ref Provider: JT ZACARIAS Height(Cm): BSA: [...] Lyla Salamanca M.D. FT: FT Report ID: [id number] Reading Location: [id number] Procedure Note Lyla Roberson MD - 01/07/2025 [...] Lyla Salamanca M.D. FT: FT Report ID: [id number] Reading Location: [id number] Jt Zacarias MD IMG XR PROCEDURES F inal Result * (ABNORMAL) Sepsis Lactate w/ Reflex (01/07/2025 8:58 AM CDT) Sepsis Lactate 3.9(H) 0.7 - 2.0 mmol/L Blood 01/07/2025 8:58 AM CDT 01/07/2025 9:01 AM CDT Jt Zacarias MD LAB BLOOD ORDERABLE S Final Result Performing Organization Address City/[facility]/ZIP Co de Phone Number JEFF IGLESIAS [place]) 1 [facility] [place] [address] * (ABNORMAL) Troponin T high-sensitivity series (baseline, [...] ORDERABLE S Final Result Performing Organization Address City/[facility]/ZIP Co de Phone Number JEFF IGLESIAS ([place]) 1 [facility] [place] [address] * eGFR (01/07/2025 8:40 AM CDT) eGFR [...] S Final Result [facility] ([place]) 1 [facility] Department [place] [address] * (ABNORMAL) Differential, auto (01/07/2025 8:40 AM [...] S Final Result JEFF [facility] ([place]) 1 [facility] Department [place] [address] * (ABNORMAL) CBC with auto differential (01/07/2025 [...] RDW CV 13.3 11.1 - 14.9 % [facility] ([place]) RDW SD 41.5 35.7 - 48.1 fL [facility] ([place]) NRBC abs 0.00 0.00 - 0.01 K/cumm [facility] ([place]) Blood 01/07/2025 8:40 AM CDT 01/07/2025 8:45 AM CDT Jt Zacarias MD LAB BLOOD ORDERABLE S Final Result JEFF [facility] ([place]) 1 [facility] [place] [address] * Magnesium (01/07/2025 8:40 AM CDT) Pathologist [facility] Magnesium 1.7 1.4 - 2.5 mg/dL Blood 01/07/2025 8:40 AM CDT 01/07/2025 9:44 AM CDT us Jt Zacarias MD LAB BLOOD ORDERABLE S Final Result Performing Organization Address City/[facility]/ZIP Co de Phone Number [facility] ([place]) 1 [facility] [place] [address] * (ABNORMAL) Comprehensive metabolic panel (01/07/2025 8:40 AM CDT) Sodium 138 135 - 145 mmol/L Potassium, pl 3.4 3.3 - 4.9 mmol/L [facility] ([place]) Chloride 102 97 - 110 mmol/L [facility] ([place]) CO2 20(L) 22 - 32 mmol/L [facility] ([place] Anion gap 16(H) 2 - 15 mmol/L [facility] ([place] BUN 11 6 - 25 mg/dL [facility] ([place]) Creatinine 0.79(L) 0.80 - 1.30 mg/dL [facility] ([place] Glucose 248(H) 70 - 199 mg/dL [facility] ([place]) Comment: Interpretive Data [...] S Final Result JEFF [facility] ([place]) 1 [facility] Department [place] [address] * ECG 12 lead (01/07/2025 8:39 AM CDT) 01/07/2025 8:39 AM CDT Narrative [facility] - 01/07/2025 9:28 AM CDT Vent Rate: 91 bpm RR Interval: 654 msec ND Interval: 238 msec QRS Duration: 111 msec QT Interval: 394 msec QTC Interval: 443 msec P-R-T Porum: 7 - 132 - 71 degrees IMPRESSION: [...] Zacarias MD ECG ORDERABLES Fin al Result [facility] * XR Chest Pa Lateral [...] Meir Ascencio M.D. KT: KT Report ID: [id number] Reading Location: [id number] Procedure Note Meir Ascencio MD - 01/01/2025 [...] Meir Ascencio M.D. KT: KT Report ID: [id number] Reading Location: [place] [address] Nay[address] Sharp HOME AGENT IMG XR PROCEDURES Fin al Result * [...] by: Vick Cruz M.D. us Jose Vega HOME AGENT IMG XR PROCEDURES Final Res ult * [...] and children were not included. (Diabetes Care 31:3125-8120, 2008). The eAG is not equivalent to a fasting glucose. Blood 12/18/2024 5:56 AM CDT 12/18/2024 6:01 AM CDT Jose Vega NP LAB BLOOD ORDERABLES Final Result Performing Organization Address [facility] de Phone Number [facility] [address] [address] [place] [address] * (ABNORMAL) Albumin Creatinine Ratio, [...] ORDERABLES Final Resul t Performing Organization Address [facility] Co de Phone Number [facility] [address] [address] Department [place] [address] * (ABNORMAL) Lipid panel (04/01/2024 11:09 AM [...] LAB BLOOD ORDERABLES Final Resul t JEFF [address] [address] [place] [address] from Last 3 Months or Most Recently Relevant to Health Maintenance Insurance MEDICARE Tout FOR LIFE [facility] MEDICARE ADVANTAGE FOR LIFE [facility] MEDICARE ADVANTAGE Advance Directives For more information, please contact: [phone] * Full Code (Latest Code Status on File) Date Activated Date Inactivated Comments 01/07/2025 1:12 PM 01/11/2025 11:13 PM * Full Code Date Activated Date Inactivated Comments 12/14/2024 5:54 PM 12/21/2024 8:28 PM * Full Code Date Activated Date Inactivated Comments 06/18/2024 3:52 PM 06/19/2024 10:57 PM * Full Code Date Activated Date Inactivated Comments 02/11/2024 3:49 PM 02/12/2024 6:22 PM Care Teams Studio Artist Relationship Specialty Start Date End Date Maryann Jiménez DO PCP - General Family Medicine 07/03/22 Jose David Betancourt MD [address] [address] Consulting Physician Urology 06/19/24 Ty Lamb MD [address] [address] Surgeon Cardiothoracic Surgery 12/21/24 Jatinder Jones MD [address] [place] [address] Consulting Physician Cardiology 12/21/24 Miscellaneous, Not In File 12/21/24
--- OUTSIDE RECORDS SUMMARY | 2025-03-28 21:18 | XMS_ITS | Encounter Summary ---
Author Organization [facility] Healthcare Address [address] [place] [address] Care Team Providers Care Contact And Service Clerks Supervisor Name Role Phone Maryann Jiménez DO Primary Care Provider + Jose David Betancourt MD Unavailable [phone] Ty Lamb MD Unavailable [phone] Jatinder Jones MD Unavailable [phone] Miscellaneous, Not In File Unavailable Unava ilable Encounter Details Date Type Department Care Team (Late st Contact Info) Description 01/05/2025 [facility] Post Discharge Follow up phone call [place] [id number] [place] [address] Ariella Larsen Social History Tobacco [...] doctor or pharmacy Never 12/23/2024 [facility] Utilities Answer Date Recorded In the past [...] any clubs o r organizations such as hinduism groups, unions, fraternal or athletic groups, or [...] staff should administer the PHQ-9) 0 08/17/2024 [facility] of Occupat ional Health - Occupational Stress [...] any time in the past 12 m [facility], were you homeless or living in a jail (including now)? No 12/17/2024 Personal Safety Answer Date Recorded Have you ever been in or are you currently in a harmful physical or emotional relationship or is someone making you feel afraid or unsafe? 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 Gender Identity Male 01/23/2020 12:25 AM CDT [...] documented as of this encounter Care Teams Contact And Service Clerks Supervisor Relationship Specialty Start Date End Date JiménezShantellMaryann DO Missy PCP - General Family Medicine 07/03/22 Jose David Betancourt MD [address] [place] [address] Consulting Physician Urology 06/19/24 Ty Lamb MD [address] [place], [place] [id number] Surgeon Cardiothoracic Surgery 12/21/24 Jatinder Jones MD [address] [place] [address] Consulting Physician Cardiology 12/21/24 Miscellaneous, Not In File 12/21/24 documented as of this encounter
--- OUTSIDE RECORDS SUMMARY | 2025-03-28 21:18 | XMS_ITS | Clinical Summary ---
Author Organization [facility] Address [address] [place] [address] Care Team Providers Care Can Maker Name Role Phone Maryann Jiménez DO Primary Care Provider [phone] Source Comments [facility],non-owned Affiliates and Associated Physician Practices is amultiple site organization consisting of ambulatory clinics and hospital sitesin [place], [place], [place] and [place]. This disclosure is being madepursuant to the Care Everywhere program and may not contain all information available regarding this patient. 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 Gender Identity Not on file Sexual Orientation Not on file Last Filed Vital Signs Vital Sign Reading Time Taken Comments Blood Pressure 116/62 12/20/2020 11:23 AM CDT Pulse 72 12/20/2020 11:23 AM CDT Temperature 36.3 C (97.3 F) 12/20/2020 11:23 AM CDT Respiratory Rate 16 05/14/2017 2:25 PM CDT Oxygen Saturation 95% 09/28/2014 12:31 PM 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 Inhaled Oxygen Concentration - - Weight 90.7 [...] 46 U/L [facility] Comment: Test Performed at: [facility] [address] [place] [address] IVY DERAS DO,MPH Blood BLOOD SPECIMEN / Unknown 12/21/2020 11:20 AM CDT 12/21/2020 11:21 AM CDT Nico Jones MD LAB - CHEMISTRY ORDERABLES F inal Result [facility] [address] [place] [address] from Last 3 Months or Most Recently Relevant to Health Maintenance Insurance [email or web address] MEDICARE [facility] Member Subscriber Plan / Payer (Ef fective 2020-Present) Name:Shawn Shultz Simone Relation to Subscriber:Self Name:Shawn Shultz Payer ID:[id number] (NAIC) Group ID:Not on file Type:[facility]/ Address: [address] [place] [address] [facility] MANAGED MEDICARE ADV MEDICARE [facility] MANAGED MEDICARE ADV [facility] MANAGED MEDICARE ADV [facility] MANAGED MEDICARE ADV Care Teams Can Maker Relationship Specialty Start Date End Date Maryann Jiménez DO [address] [facility] [address] [place] [address] PCP - General 09/07/22
--- OUTSIDE RECORDS SUMMARY | 2025-03-28 21:18 | XMS_ITS | Encounter Summary ---
Author Organization [facility] Address [address] [facility] [place] [address] Care Team Providers Care Concert Singer Name Role Phone Syl Mcadams MD Primary Care Provider [phone] Maryann Jiménez DO Primary Care Provider [phone] Reason for Visit * Reason Onset Date Comments MEDICATION REFILL 08/21/2018 Encounter Details Date Type Department Care Team (Late st Contact Info) Description 08/21/2018 Refill [facility] [address] [place] [address] April Mendoza MD [address] [place] [address] MEDICATION REFILL Social History Tobacco Use Types Packs/Day Years Used Date Smoking Tobacco: Passive Smo ke Exposure - Never Smoker Smokeless Tobacco: Never Sex and Gender Information Value Date Recorded Sex Assigned at Not on file 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
--- OUTSIDE RECORDS SUMMARY | 2025-03-28 21:18 | XMS_ITS | Continuity of Care Document ---
Author Name [facility] Organization [facility] Care Team Providers Care Templer Head Name Role Phone [facility] Unavailable Unavailable Problems Combined list of problems from Department of Defense and Veterans Affairs facilities. It does not include entries that were removed or entered in error. Problem Status Onset Date Problem Type Date of Resolution Comments Source Hearing Loss, Sensorineural, Unspecified Active Condition [facility] Medications Combined list of outpatient medications from Department of [facility] and [facility] facilities.Medications provided include 1) outpatient medications from the last 15 months, and 2) patient-reported medications. Medication Details Route Status Patient Instructions Prescription Expires Prescription Number Last Dispense Date Ordering Provider Order Date Order Qty Source Alcohol Antiseptic (Alcohol Swabs Eq.) Pads 70% Topical For external use. 01/14/2025 [id number] 4 2023 200 [employer] [facility] ([facility]) alcohol prep pad [100EA] See Instruct erin, [...] [employer] 3 ml SYRINGE Active [id number] 4 2023 15 Pharmac y Data Transac [...] with your doctor before becoming . 01/14/2025 [id number] 4 [address] [facility] [employer] [facility] ([facility]) metFORMIN XR 500 mg/24 hour tablet See [...] [employer] .5 ml SYRINGE Active [id number] 4 2023 6 Pharmac y Data Transac [...] Site Reaction Lot Number CVX Code Drug Flight Test Mechanic Status Comments Source influenza, high-dose, quadrivalent 2020 [facility], () Not Given influenza , high-dose , quadrival ent DoD influenza, high-dose, quadrivalent 2019 [facility], () Not Given influenza , high-dose , quadrival ent [facility] Influenza, high dose seasonal 2018 AL[facility], () Not Given Influenza , high dose seasonal DoD Influenza, seasonal, injectable, preservative free 2014 [facility], () Not Given Influenza , seasonal, injectabl e, preservat stefany free [facility] Influenza, seasonal, injectable 2013 SARAH [...] at Department of Defense and Veterans Affairs (AL).AL Functional [place] Measurement (FIM) Scale: 1 = Total Assistance (Subject = 0% +), 2 = Maximal Assistance (Subject = 25% +), 3 = Moderate Assistance (Subject = 50% +), 4 = Minimal Assistance (Subject = 75% +), 5 = Supervision, 6 = Modified [place] (Device), 7 = Complete [place] (Timely, Safely). Assessment Date/Time Source Assessment Type Assessment Skill Assessment Score Assessment Details No data available for this section
[2025-03-28] MEDS: DOXYCYCLINE HYCLATE 100 MG TABLET PO (21:19)
== END 2025-03-28 21:38 | disposition home or self-care (01) ==
LOC: ANHED 21:15
PROVIDERS: Emergency Provider Emergency Medicine; PCP Family Medicine
DX: L02.413 Cutaneous abscess of right upper limb (principal); L72.9 Follicular cyst of the skin and subcutaneous tissue, unspecified; I10 Essential (primary) hypertension; I25.10 Atherosclerotic heart disease of native coronary artery without angina pectoris; E78.2 Mixed hyperlipidemia; E11.9 Type 2 diabetes mellitus without complications; M19.90 Unspecified osteoarthritis, unspecified site; G47.33 Obstructive sleep apnea (adult) (pediatric); Z95.1 Presence of aortocoronary bypass graft; Z95.5 Presence of coronary angioplasty implant and graft; Z95.0 Presence of cardiac pacemaker; Z86.73 Personal history of transient ischemic attack (TIA), and cerebral infarction without residual deficits; Z87.442 Personal history of urinary calculi; Z87.891 Personal history of nicotine dependence; Z90.49 Acquired absence of other specified parts of digestive tract
CPT/HCPCS: 10060; 99283; A9270

== ENCOUNTER 2025-04-14 07:20 | Emergency (ER) | payer MEDICARE, OTHER, SELFPAY ==
[2025-04-14] VITALS (20 sets, daily range): BP systolic 150–184; BP diastolic 71–89; PULSE 87–95; RESP 12–27; TEMP 36.4; O2SAT 95–97
--- NOTE | ~2025-04-14 | XR_ITS ---
XR chest 1V portable 04/14/2025 08:26 Indication: Elevated glucose Procedure: AP portable chest Comparison: Comparison to multiple prior studies sequentially, with oldest reviewed study dated 01/21. Findings: Status post median sternotomy for CABG. Heart size normal. No focal air space disease, pulm onary edema, pleural effusion or suspected pneumothorax. Pacemaker leads are stable. Impression: 1: No acute cardiopulmonary disease. Reviewed, dictated and finalized at location A. Impression: 1: No acute cardiopulmonary disease.
--- OUTSIDE RECORDS SUMMARY | 2025-04-14 07:23 | XMS_ITS | Continuity of Care Document ---
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 It does not include entries that were removed or entered in error. Problem Status Onset Date Problem Type Date of Resolution Comments Source Hearing Loss, Sensorineural, Unspecified Active Condition [facility] Medications Combined list of outpatient medications from Department of [facility] and [facility] facilities.Medications provided include 1) outpatient medications from the last 15 months, and 2) patient-reported medications. Medication Details Route Status Patient Instructions Prescription Expires Prescription Number Last Dispense Date Ordering Provider Order Date Order Qty Source Alcohol Antiseptic (Alcohol Swabs Eq.) Pads 70% Topical For external use. 01/14/2025 [id number] 4 2023 200 [facility] ([facility]) alcohol prep pad [100EA] See Instruct erin, [...] Stop Oral (given by mouth) Complet ed 03/30/2025 4 2024 90.0 Ambulat ory Pharmac y BD Lyudmila [...] [employer] 3 ml SYRINGE Active [id number] 4 2023 15 Pharmac y Data Transac [...] with your doctor before becoming . 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 Status Comments Source influenza, high-dose, quadrivalent 2020 [...] , seasonal, injectabl e, preservat stefany free [facility] Influenza, seasonal, injectable 2013 SARAH HENRY () Not Given Influenza , seasonal, injectabl e DoD Procedures Combined list of: 1) Procedures from Department of Veterans Affairs facilities going back up to thelast 18 months, not all [place] non-surgical procedures are included; 2) All procedures [...] Plan No data available for this section 04/14/2025 Ambulatory Pharmacy Functional Status Combined list of recent functional and cognitive assessments recorded at [facility] of Defense and [facility] ([place] Functional [place] Measurement (FIM) Scale: 1 = Total Assistance (Subject = 0% +), 2 = Maximal Assistance (Subject = 25% +), 3 = Moderate Assistance (Subject = 50% +), 4 = Minimal Assistance (Subject = 75% +), 5 = Supervision, 6 = Modified [place] (Device), 7 = Complete [place] (Timely, Safely). Assessment Date/Time Source Assessment Type Assessment Skill Assessment Score Assessment Details No data available for this section
--- NOTE | 2025-04-14 07:35 | ECG_ITS ---
Test Date: 2025-04-14 07:54:35 Measurements Intervals Otto Rate: 94 P: 44 WY: 243 QRS: 70 QRSD: 115 T: 61 QT: 394 QTc: 495 Interpretive Statements SINUS RHYTHM WITH FIRST DEGREE AV BLOCK INCOMPLETE RIGHT BUNDLE BRANCH BLOCK INFERIOR INFARCT, AGE INDETERMINATE BORDERLINE T WAVE ABNORMALITY- HIGH LATERAL LEADS ABNORMAL ECG Compared to ECG 02/16/2025 16:22:49 NO SIGNIFICANT CHANGE Electronically Signed On 04-14-2025 08:28:39 CDT by Winston Wakefield D.O.
--- OUTSIDE RECORDS SUMMARY | 2025-04-14 07:39 | XMS_ITS | Clinical Summary ---
Author Organization 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 Active metFORMIN (GLUCOPHAGE) 1,000 mg tabletIndication s:type 2 diabetes mellitus Take 1 tablet by mouth daily with breakfast Active dulaglutide (Trulicity) 3 mg/0.5 mL pen injectorIndicati ons:type 2 diabetes mellitus Inject 0.5 mL (3 mg total) under the skin once a week 6 mL 2 08/17/20 24 Active Additional Information Patient taking differently:3 mg subcutaneous Weekly,Saturday, Reported on 04/02/2025 alcohol swabs pads, medicatedIndicat ions:diabetes 10/05/19 25 [...] by mouth daily 90 tablet 01/08/20 25 Active TRESIBA 100 unit/mL (3 mL) pen [...] hyperglycemia, with long-term current use of insulin ([facility]) Dx code E11.65. T2DM with hyperglycemia with nursing home current use of insulin. 3 each 3 [...] are complete. Avoid live-vaccines unless reviewed with machine tool builder first. 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 Restart Trulicity 3 mg weekly [...] and Trulicity Send me a message via Sitefly every week, so we can look at [...] with body mass index 30 or greater 11/30 /2016 Hemorrhoids 04/02/2016 Hypothyroidism 09/28/2015 Overview (12/08/2016): Hypothyroidism, [...] Overview (12/08/2016): Essential hypertension Coronary arteriosclerosis in [place] artery 09/28 Overview (12/08/2016): Coronary artery disease involving [place] coronary artery of [place] heart without angina pectoris Arthralgia of shoulder [...] Encounters Date Type Department Care Team Description 04/13/[address] [place] [address] Min Noel LCSW Care Consultation (See note. [facility]ACE [facility]) 04/13/[address] [place] [address] Min Noel LCSW 04/12/2025 12:56 PM CDT - 04/12/2025 11:59 PM CDT Hospital Encounter [facility] [address] [place] [address] Corey Lowery MD Encounter for medical screening examination Discharge Disposition: Discharge to home or self care 04/12/2025 Documentation [facility] [address] [facility] Advanced Medicine 6th [place] [address] [place] [phone] Corey Lowery MD 04/06/2025 Orders Only [facility] [id number] [place] [address] [address] [place] [phone] Juany Teague MD 04/06/2025 Telephone [facility] [address] [facility] First Floor [address] [place] [phone] Ayesha Vizcaino RMA 04/06/2025 Orders Only [facility] [address] [facility] 6th Floor [address] [place] [address] Corey Lowery MD Encounter for medical screening examination (Primary Dx) 04/05/2025 Telephone [facility] [address] [facility] First Floor [address] [place] [phone] Min Noel LCSW 04/02/2025 10:00 AM CDT Office Visit [facility] [address] [facility] Medicine 6th [place] [address] [place] [phone] Corey Lowery MD Memory loss 04/02/2025 Telephone [facility] [address] [facility] Outpatient Health 4th Floor [address] [place] [phone] Tammy Reynolds Communication 03/31/2025 Telephone [facility] [address] [facility] Advanced Medicine 6th [place] [address] [place] [phone] Yevgeniy Odell 03/29/2025 Telephone [facility] [address] [facility] [address] [place] [address] Nestor Bruno 03/26/2025 6:50 AM CDT Lab [facility] [address] [place] [address] Memory loss; Encounter for medical screening examination 03/25/2025 3:15 PM CDT Office Visit [facility] [address] [facility] [address] [place] [address] Juany Teague MD Memory loss (Primary Dx); Encounter for medical screening examination 02/12/2025 Telephone [facility] Medical [facility] Cardiology [address] [facility] [address] [place] [address] Jatinder Jones MD 02/11/2025 Telephone [facility] [address] [place] [address] [address] [address] Alireza Clark MD Med Refill 01/27/2025 10:30 AM CDT Home Care Visit [place] [address] [address] [place] [address] Lori Puckett SN OASIS DISCHARGE 01/26/2025 1:15 PM CDT Office Visit [facility] Surgery [address] [facility] [address] [place] [address] Ty Lamb MD Coronary artery disease (CAD) excluded (Primary Dx) 01/25/2025 [facility] Post Discharge Follow up phone call [facility] [address] [place] [address] Ariella Larsen 01/21/2025 10:30 AM CDT Home Care Visit [address] [place] [address] Lori Puckett SN HOME VISIT 01/18/2025 9:30 AM CDT Home Care Visit [address] [place] [address] Lori Puckett SN HOME VISIT 01/18/2025 Telephone [facility] [address] [place] [address] [address] [place] [address] Alireza Clark MD 01/14/2025 Plan of Care Documentation [facility] [address] [place] [address] [address] [place] [address] 01/13/2025 12:30 PM CDT Home Care Visit [address] [place] [address] Kaitlynn Elizalde RN SN OASIS RESUMPTION OF CARE 01/12/2025 Orders Only [facility] Medical Group Cardiology [address] [facility] [address] [address] Jatinder Jones MD Presence of cardiac pacemaker (Primary Dx); SSS (sick sinus syndrome) (HCC); Bradycardia 01/12/2025 Orders Only [facility] Surgery [address] [facility] [address] [place] [address] Jose Vega NP from Last 3 Months Immunizations Immunization Administration [...] - 09/01/2001 C4-5 COLONOSCOPY 2006, 2013, 2016, 2023 CARDIAC STENT PLACEMENT 01/31/2010 - 03/01/2010 [...] (gastroesophageal reflux disease) Type 2 diabetes mellitus Hypothyroidism Hyperlipidemia Sleep apnea Syncope 40 years ago S/P colon resection Kidney stone Stroke (HCC) 1986 TIA Cataract Palpitations Pacemaker pacemaker in [facility], but does not work, per patient dr [...] Pina Heart disease; Mental illness Maternal Grandmother Amanthgiorgi Pina Alcohol abuse Mother Emily Shultz Heart attack Mother Emily Shultz Myocardial infa rction; Liver disease Mother Emily Shultz COPD Paternal Grandfather Bethel Shultz Heart disease Paternal Grandfather Bethelnatalie Shultz Heart disease; Cancer Paternal Grandmother Margarita Kaykay Diabetes Paternal Grandmother Margarita Kaykay Relation Name Status Comments Brother Father Eugenia Shultz Maternal Grandfather Remington Pina Maternal Grandmother Amanthliyahs Yovani Mother Emily Shultz Paternal Grandfather Bethel Shultz Paternal Grandmother Margarita Kaykay Social History Tobacco Use Types Packs/Day Years [...] doctor or pharmacy Never 01/27/2025 [facility] Utilities Answer Date Recorded In the past 12 months has e [employer], gas, oil, or water [employer] threatened to shut off services in your home? No 01/11/2025 Humiliation, Afraid, Rape, and Kick questionnair e Answer Date Recorded Within the last year, have y ou been afraid of your partner or ex-partner? No 12/17/2024 Emotionally Abused Not on file 12/17/2024 Physically Abused Not on file 12/17/2024 Sexually Abused Not on file 12/17/2024 Social Connection and Isolation Panel Answer Date Recorded In a typical week, how many times do you talk on the phone with family, friends, or neighbors? More than three times a week 01/11/2025 How often do you get togethe r with friends or relatives? More than three times a week 01/11/2025 How often do you attend [facility] or pentecostalism services? More than 4 times per year 01/11/2025 Do you belong to any clubs o r organizations such as christian groups, unions, fraternal or athletic groups, or [...] staff should administer the PHQ-9) 0 08/17/2024 [facility] Part of Occupat ional Health - Occupational Stress [...] any time in the past 12 m [facility], were you homeless or living in a alf (including now)? No 01/11/2025 Personal Safety Answer Date Recorded Have you ever been in or are you currently in a harmful physical or emotional relationship or is someone making you feel afraid or unsafe? 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 Gender Identity Male 01/23/2020 12:25 AM CDT Sexual Orientation Straight 01/23/2020 12 :25 AM CDT Obstetrics History Last Filed Vital Signs Vital Sign Reading Time Taken Comments Blood Pressure 150/70 04/02/2025 9:04 AM CDT Pulse 65 04/02/2025 9:04 AM CDT Temperature 36.8 C (98.3 F) 03/25/2025 3:29 PM CDT Respiratory Rate 18 03/25/2025 3:29 PM CDT Oxygen Saturation 99% 03/25/2025 3:29 PM CDT Inhaled Oxygen Concentration - - Weight 89.4 kg (197 lb 3.2 oz) 04/02/2025 9:04 A M CDT Height 172.7 cm (5' 8) 04/02/2025 9:04 AM CDT Body Mass Index 29.98 04/02/2025 9:04 AM CDT Plan of Treatment Health Maintenance Due Date Last Done Comments Colon Cancer Screening-Colonoscopy 1950 Hepatitis C Screening 1950 Dilated Eye Exam 1950 Foot Exam 1950 DTaP/Tdap/Td Vaccine (1 - Tdap) 1961 Hepatitis B Screening 1968 Zoster Vaccine (1 of 2) 2000 Abdominal Aortic Aneurysm (A AA) Screen 2015 Well Visit 65+ 2015 Pneumococcal vaccine 65+ (2 of 2 - PPSV23, PCV20, or PCV21) 07/20/2016 05/25/2016 Covid-19 Vaccine (4 - 2023-2 5 season) 2024 08/10/2022, 05/16/2021, 04/25/2021 Albumin Creatinine Ratio, Urine 04/01/2025 Lipid Panel 04/01/2025 04/01/2024, 12/31, 11/29/2021, Additional history exists Influenza Vaccine (#1) 2025 4, 06/08/2022, 05/11/2020, Additional history exists Hemoglobin A1C [...] no relief. Medical Devices Implanted Type Area Skill Labor Device Identifier Shelf Expiration Date Model / Serial / Lot Medtronic Rv Lead 4011-58-09/02/18 89 Implanted:09/1988 (Quantity not on file) Lead Heart Medtronic Cardiac Rhythm Mgmt 4011-58 / [id number] / [employer] Active Fixation Steroid Eluting Latex Free Sterile Right Atrium Ventricle Ultipace 58cm [id number]/58 - [id number] - [id number] Implanted:Qty: 1 on 01/08/2025 by Ty Lamb MD at [facility] Lead Left: Chest [employer] [id number] 09/01/2027 [id number]/58 / [id number] / [id number] Active Fixation Steroid Eluting Latex Free Sterile Right Atrium Ventricle Ultipace 52cm Vvz6598/52 - [id number] - [id number] Implanted:Qty: 1 on 01/08/2025 by Ty Lamb MD at [facility] Lead Left: Chest [employer] [id number] 10/31/2027 [id number]/52 / [id number] / [employer] Assurity Mri 31m59dx 2 Chamber Is-1 Connector Thk6mm Pacemaker [id number] - [id number] - [id number] Implanted:Qty: 1 on 01/08/2025 by Ty Lamb MD at [facility] Pacemaker Left: Chest [employer] [id number] 06/01/2026 [id number] / [id number] / [employer] Liyah Ams 700 Kit Accessory Penile Prosthesis [id number] - [id number] Implanted:Qty: 1 on 06/18/2024 by Jose David Betancourt MD at [facility] N/A: Groin [employer] Liyah [id number] 04/08/2029 [id number] / / [id number] [employer] Ams Spectra 12/14mm .5cm Cylinder Concealable Malleable Rear Tip [id number] - [id number] Implanted:Qty: 1 on 06/18/2024 by Jose David Betancourt MD at [facility] N/A: Penis [employer]yah [id number] 02/15/2029 [id number] / / [id number] [employer]ah Ams 700 Preconnect 1 Ms Pump 2 Cylinder Penoscrotal Prosthesis [id number] - [id number] Implanted:Qty: 1 on 06/18/2024 by Jose David Betancourt MD at [facility] N/A: Penis [employer] Liyah [id number] 10/13/2025 [id number] 0 / / [id number] [employer] Liyah Conceal Low Profile Sligo 100ml Prosthesis Inhibizone Sterile Latex Free 892776-43 - [id number] Implanted:Qty: 1 on 06/18/2024 by Jose David Betancourt MD at [facility] Left: Pelvis [employer]yah [id number] 04/22/2026 [id number] / / [id number] Procedures Procedure Name Priority Date/Time Associated Diagnosis Comments CT HEAD W WO CONTRAST Schedule Routine, Read Routine (OP Routine) 04/12/2025 2:11 PM CDT Encounter for medical screening examination METHYLMALONIC ACID, SERUM Routine 03/26/2025 6:55 AM CDT Memory loss HOMOCYSTEINE Routine 03/26/2025 6:55 AM CDT Memory loss Encounter for medical screening examination VITAMIN B12 Routine 03/26/2025 6:55 AM CDT Memory loss VITAMIN B1 Routine 03/26/2025 6:55 AM CDT Memory loss FOLATE Routine 03/26/2025 6:55 AM CDT Memory loss VITAMIN B6 Routine 03/26/2025 6:55 AM CDT Memory loss WEI QUALITATIVE WITH REFLEX TO WEI QUANTITATIVE Routine 03/26/2025 6:55 AM CDT Memory loss HIV 1/2 ANTIBODY PLUS P24 ANTIGEN Routine 03/26/2025 6:55 AM CDT Memory loss RPR Routine 03/26/2025 6:55 AM CDT Memory loss EGFR Routine 01/11/2025 9:11 AM CDT HEMOGLOBIN A1C Routine 12/18/2024 5:56 [...] Recently Relevant to Health Maintenance Results * CT Head W WO Contrast (04/12/2025 2:11 PM CDT) Anatomical Region Laterality Modality Head and Neck N/A Computed Tomogra phy 04/12/2025 3:20 PM CDT Impressions 04/12/2025 3:23 PM CDT No acute intracranial process. Dictated by: Mabel Mora M.D. The radiology attending physician has personally reviewed this study, and had reviewed and/or edited this written report and agrees with it. Electronically signed by: Sadi Pratt M.D. Narrative 04/12/2025 3:23 PM CDT EXAMINATION: CT head without and with contrast HISTORY: 74-year-old male with dementia TECHNIQUE: CT of the head was performed with images acquired from skull base to vertex with and without intravenous contrast. Contrast information: 75 mL Optiray-350 IV COMPARISON: None Available. FINDINGS: There is no acute intracranial hemorrhage. Prominence of ventricles and sulci consistent with global cerebral volume loss. No mass effect or midline shift is present. Confluent periventricular and deep subcortical white matter hypodensities are consistent with chronic microvascular ischemic disease. Atherosclerotic calcifications of the bilateral carotid siphons. The visualized portions of the orbits are normal. The visualized portions of the mastoids are normal. Mild mucosal thickening of the bilateral ethmoid air cells. No fractures are identified. There is no abnormal contrast enhancement. Procedure Note Sadi Pratt III, MD PhD - 04/12/2025 EXAMINATION: CT head without and with contrast HISTORY: 74-year-old male with dementia TECHNIQUE: CT of the head was performed with images acquired from skull base to vertex with and without intravenous contrast. Contrast information: 75 mL Optiray-350 IV COMPARISON: None Available. FINDINGS: There is no acute intracranial hemorrhage. Prominence of ventricles and sulci consistent with global cerebral volume loss. No mass effect or midline shift is present. Confluent periventricular and deep subcortical white matter hypodensities are consistent with chronic microvascular ischemic disease. Atherosclerotic calcifications of the bilateral carotid siphons. The visualized portions of the orbits are normal. The visualized portions of the mastoids are normal. Mild mucosal thickening of the bilateral ethmoid air cells. No fractures are identified. There is no abnormal contrast enhancement. IMPRESSION: No acute intracranial process. Dictated by: Mabel Mora M.D. The radiology attending physician has personally reviewed this study, and had reviewed and/or edited this written report and agrees with it. Electronically signed by: Sadi Pratt M.D. Corey Lowery MD IM CT PROCEDURES Final Result * WEI ab ql w/rflx to WEI qn (03/26/2025 6:55 AM CDT) WEI Negative Comment: Interpretive Data Normal range for WEI Qualitative Antibody = Negative. 1. WEI is performed using indirect immunofluorescence against HEp-2 cells 2. WEI titers are performed on all positive qualitative results. 3. A significantly positive WEI result is defined as a positive nuclear fluorescence at a titer of 1:80 or greater. 4. 15% of normal people above age 65 have significantly positive WEI results. 5% or less of normal people age 65 or under have significantly positive WEI results. Current interpretive data was last revised on 2020. Testing performed by: [facility], [address] [place] [address]., [id number] Blood 03/26/2025 6:55 AM CDT 03/26/2025 9:56 AM CDT Juany Teague MD LAB BLOOD ORDERABLES F inal Result Performing Organization Address [facility] Co de Phone Number [facility] [place]) [address] [place] [address] [place] [address] * HIV 1/2 Antibody plus p24 Antigen Blood (03/26/2025 6:55 AM CDT) HIV 1/2 ab + p24 ag Nonreactive Nonreactive Comment: Nonreactive for HIV-1 antigen and HIV-1/HIV-2 antibodies. No laboratory evidence of HIV infection. If acute HIV infection is suspected, consider testing for HIV-1 RNA. Testing performed by: [facility], [address] [place] [address]., [id number] Blood 03/26/2025 6:55 AM CDT 03/26/2025 9:20 AM CDT Juany Teague MD LAB MICROBIOLOGY - GEN ERAL ORDERABLES Final Result Performing Organization Address City/[facility]/ZIP Co de Phone Number JEFF IGLESIAS ([place]) [address] [facility] [place] [address] * Methylmalonic acid, serum (03/26/2025 6:55 AM CDT) MMA 0.13 <=0.40 nmol/mL [facility] Comment: ADDITIONAL INFORMATION This test was developed and its performance characteristics determined by [facility] in a manner consistent with CLIA requirements. This test has not been cleared or approved by the U.S. Food and Drug Administration. Test Performed by: [facility] [place] [address] Sash Sticker: Ladonna Roberts Ph.D.; CLIA# [id number] Blood 03/26/2025 6:55 AM CDT 03/26/2025 7:09 AM CDT Juany Teague MD LAB BLOOD ORDERABLES F inal Result Performing Organization Address [facility]/ZIP Co de Phone Number [facility] [place]) [address] [place] [address] [place] [address] [facility] * RPR Blood (03/26/2025 6:55 AM CDT) RPR Nonreactive Nonreactive Comment:Testing performed by : [facility], [address] [place] [address], [address] Blood 03/26/2025 6:55 AM CDT 03/26/2025 9:20 AM CDT Junay Teague MD LAB MICROBIOLOGY - GEN ERAL ORDERABLES Final Result Performing Organization Address City/[facility]/ZIP Co de Phone Number [facility] ([place]) [address] [facility] [place] [address] * Vitamin B1 (03/26/2025 6:55 AM CDT) Thiamine (Vit B1) 107 70 - 180 nmol/L [facility] Comment: ADDITIONAL INFORMATION This test was developed and its performance characteristics determined by [facility] in a manner consistent with CLIA requirements. This test has not been cleared or approved by the U.S. Food and Drug Administration. Test Performed by: [place] [address] Sash Sticker: Ladonna Roberts Ph.D.; CLIA# [id number] Blood 03/26/2025 6:55 AM CDT 03/26/2025 7:09 AM CDT Juany Teague MD LAB BLOOD ORDERABLES F inal Result Performing Organization Address City/[facility]/ZIP Co de Phone Number JEFF IGLESIAS ([place]) [address] [facility] [place] [address] [facility] * Vitamin B6 (03/26/2025 6:55 AM CDT) Pyridoxal phosphate (Vit B6) 5 5 - 50 mcg/L [facility] Comment: ADDITIONAL INFORMATION This test was developed and its performance characteristics determined by [facility] in a manner consistent with CLIA requirements. This test has not been cleared or approved by the U.S. Food and Drug Administration. Test Performed by: [facility] - [address] [address] Sash Sticker: Ladonna Roberts Ph.D.; CLIA# [id number] Blood 03/26/2025 6:55 AM CDT 03/26/2025 7:09 AM CDT Juany Teague MD LAB BLOOD ORDERABLES F inal Result [facility] ([place]) [address] [facility] [place] [address] [facility] * Homocysteine (03/26/2025 6:55 AM CDT) Pathologist [facility] Homocysteine 10.0 7.3 - 16.3 nmol/mL [facility] Comment: ADDITIONAL INFORMATION Liquid Chromatography-Tandem Mass Spectrometry (LC-MS/MS) This test was developed and its performance characteristics determined by [facility] in a manner consistent with CLIA requirements. This test has not been cleared or approved by the U.S. Food and Drug Administration. Test Performed by: [place] [address] Sash Sticker: Ladonna Roberts Ph.D.; CLIA# [id number] Blood 03/26/2025 6:55 AM CDT 03/26/2025 7:09 AM CDT Juany Teague MD LAB BLOOD ORDERABLES F inal Result Performing Organization Address City/[facility]/ZIP Co de Phone Number [facility] ([place]) [address] [facility] [place] [address] [facility] * Folate (03/26/2025 6:55 AM CDT) Folic acid 14.5 >=5.0 ng/mL [facility] ([place]) Blood 03/26/2025 6:55 AM CDT 03/26/2025 7:10 AM CDT Juany Teague MD LAB BLOOD ORDERABLES F inal Result JEFF IGLESIAS ([place]) 1 [facility] [place] [address] * Vitamin B12 (03/26/2025 6:55 AM CDT) Vitamin B12 634 230 - 1,250 pg/mL [facility] ([place]) Blood 03/26/2025 6:55 AM CDT 03/26/2025 7:10 AM CDT us Juany Teague MD LAB BLOOD ORDERABLES F inal Result JEFF IGLESIAS ([place]) 1 [facility] [place] [address] * eGFR (01/11/2025 9:11 AM CDT) eGFR [...] LAB BLOOD ORDERABLES Final R esult [facility] [place] [address] Department [place] [address] * (ABNORMAL) Hemoglobin A1c (12/18/2024 5:56 AM CDT) Hgb A1C 7.4(H) 4.0 - 5.6 % Estimated Average Glucose 166 mg/dL [facility] Comment: The ADA recommends reporting an estimated Average Glucose (eAG) with all Hemoglobin A1c results using the equation derived from a study of 507 normal and diabetic adults. Minority populations were underrepresented and children were not included. (Diabetes Care 31:2725-4931, 2008). The eAG is not equivalent to a fasting glucose. Blood 12/18/2024 5:56 AM CDT 12/18/2024 6:01 AM CDT Jose Vega SALES DEPARTMENT CLERK LAB BLOOD ORDERABLES Final Result Performing Organization Address [facility] Co de Phone Number [facility] [address] Department [place] [address] * (ABNORMAL) Albumin Creatinine Ratio, Urine (04/01/2024 11:09 AM CDT) Albumin Ur 19.5 mg/L Comment: Interpretive Data No reference range established. Current interpretive data was last revised 2019. Creatinine Ur 60.3 mg/dL [facility] Comment: Interpretive Data No reference range established. Current interpretive data was last revised 2019. Albumin Creatinine Ratio, Ur 32(H) 1 - 29 mg/g [facility] Urine 04/01/2024 11:0 9 AM CDT 04/01/2024 5:29 PM CDT Alireza Clark MD LAB URINE ORDERABLES Final Resul t Performing Organization Address [facility] [facility] Co de Phone Number [facility] [address] [address] [place] [address] * (ABNORMAL) Lipid panel (04/01/2024 11:09 AM [...] BLOOD ORDERABLES Final Resul t JEFF BRODERICK [address] [address] Department [place] [address] from Last 3 Months or Most Recently Relevant to Health Maintenance Insurance MEDICARE [employer] FOR LIFE [facility] MEDICARE ADVANTAGE [facility]ICARE Address: [address] [address] [place] [address] FOR LIFE [facility] MEDICARE ADVANTAGE [facility] MEDICARE Address: [facility] [address] [place] [address] Advance Directives For more information, please contact: [phone] * Full Code (Latest Code Status on File) Date Activated Date Inactivated Comments 01/07/2025 1:12 PM 01/11/2025 11:13 PM * Full Code Date Activated Date Inactivated Comments 12/14/2024 5:54 PM 12/21/2024 8:28 PM * Full Code Date Activated Date Inactivated Comments 06/18/2024 3:52 PM 06/19/2024 10:57 PM * Full Code Date Activated Date Inactivated Comments 02/11/2024 3:49 PM 02/12/2024 6:22 PM Care Teams Car Ferry Captain Relationship Specialty Start Date End Date Maryann Jiménez DO PCP - General Family Medicine 07/03/22 Jose David Betancourt MD [address] [place] [address] Consulting Physician Urology 06/19/24 Ty Lamb MD [address] [place] [address] Surgeon Cardiothoracic Surgery 12/21/24 Jatinder Jones MD [address] [place] [address] Consulting Physician Cardiology 12/21/24 Miscellaneous, Not In File 12/21/24
--- OUTSIDE RECORDS SUMMARY | 2025-04-14 07:39 | XMS_ITS | Clinical Summary ---
Author Organization [facility] Address [address] [place] [address] Care Team Providers Care Photography Sales Associate Name Role Phone Maryann Jiménez DO Primary Care Provider [phone] Source Comments [facility],non-owned Affiliates and Associated Physician Practices is amultiple site organization consisting of ambulatory clinics and hospital sitesin [place], [place], [place] and [place]. This disclosure is being madepursuant to the Care Everywhere program and may not contain all information available regarding this patient. 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 eGFR by MDRD 82 > OR = [...] 46 U/L [facility] Comment: Test Performed at: Actual Experience [facility] [address] [place] [address] IVY DERAS DO,MPH Blood BLOOD SPECIMEN / Unknown 12/21/2020 11:20 AM CDT 12/21/2020 11:21 AM CDT Nico Jones MD LAB - CHEMISTRY ORDERABLES F inal Result [facility] [id number] [place] [address] from Last 3 Months or Most Recently Relevant to Health Maintenance Insurance [employer] MEDICARE [facility] MANAGED MEDICARE ADV MEDICARE [facility] MANAGED MEDICARE ADV [facility] MANAGED MEDICARE ADV [facility] MANAGED MEDICARE ADV Care Teams Photography Sales Associate Relationship Specialty Start Date End Date Maryann Jiménez DO [address] [place] [address] PCP - General 09/07/22
--- OUTSIDE RECORDS SUMMARY | 2025-04-14 07:39 | XMS_ITS | Encounter Summary ---
Author Organization [facility] Address [address] [facility] [place] [address] Care Team Providers Care Merchandising Representative Name Role Phone Syl Mcadams MD Primary Care Provider Maryann Jiménez DO Primary Care Provider [phone] Reason for Visit * Reason Onset Date Comments MEDICATION REFILL 08/21/2018 Encounter Details Date Type Department Care Team (Late st Contact Info) Description 08/21/2018 Refill [facility] [address] [place] [address] April Mendoza MD [address] [place] [address] MEDICATION REFILL Social History Tobacco Use Types Packs/Day Years Used Date Smoking Tobacco: Passive Smo ke Exposure - Never Smoker Smokeless Tobacco: Never Sex and Gender Information Value Date Recorded Sex Assigned at Not on file 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 [address] [place] [address] PCP - General 09/07/22 documented as of this encounter
--- OUTSIDE RECORDS SUMMARY | 2025-04-14 07:39 | XMS_ITS | Encounter Summary ---
Author Organization [facility] Healthcare Address [address] [place] [address] Care Team Providers Care Global Product Manager Name Role Phone Maryann Jiménez DO Primary Care Provider + Jose David Betancourt MD Unavailable [phone] Ty Lamb MD Unavailable [phone] Jatinder Jones MD Unavailable [phone] Miscellaneous, Not In File Unavailable Unava ilable Encounter Details Date Type Department Care Team (Late st Contact Info) Description 01/05/2025 [facility] Post Discharge Follow up phone call [id number] [place] [address] Ariella Larsen Social History Tobacco [...] materials from doctor or pharmacy Never 12/23/2024 [facility] Utilities Answer Date Recorded In the [...] often do you attend chur ch or hinduism services? More than 4 times per year 12/17/2024 Do you belong to any clubs o r organizations such as confucianist groups, unions, fraternal or athletic groups, or [...] staff should administer the PHQ-9) 0 08/17/2024 [facility] of Occupat ional Health - Occupational Stress [...] were you homeless or living in a mcc (including now)? No 12/17/2024 Personal Safety Answer Date Recorded Have you ever been in or are you currently in a harmful physical or emotional relationship or is someone making you feel afraid or unsafe? 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 Gender Identity Male 01/23/2020 12:25 AM CDT [...] documented as of this encounter Care Teams Global Product Manager Relationship Specialty Start Date End Date Maryann Jiménez DO PCP - General Family Medicine 07/03/22 Jose David Betancourt MD [address] [place] [address] Consulting Physician Urology 06/19/24 Ty Lamb MD [address] [place] [address] Surgeon Cardiothoracic Surgery 12/21/24 Jatinder Jones MD [address] [facility] [address] [facility] [place] [address] Consulting Physician Cardiology 12/21/24 Miscellaneous, Not In File 12/21/24 documented as of this encounter
--- OUTSIDE RECORDS SUMMARY | 2025-04-14 07:39 | XMS_ITS | Encounter Summary ---
Author Organization [facility] Address [address] [facility] [place] [address] Care Team Providers Care Special Needs Librarian Name Role Phone Syl Mcadams MD Primary Care Provider [phone] Maryann Jiménez DO Primary Care Provider [phone] Reason for Visit * Reason Onset Date Comments MEDICATION REFILL 11/08/2020 Encounter Details Date Type Department Care Team (Late st Contact Info) Description 11/08/2020 Refill [facility] [address] [place] [address], [place] [address] Nico Jones MD [address] [place] [address] [place] [address] MEDICATION REFILL Social History Tobacco Use Types Packs/Day Years Used Date Smoking Tobacco: Passive Smo ke Exposure - Never Smoker Smokeless Tobacco: Never Alcohol Use Standard Drinks/Week Comments Yes 0 (1 standard drink = 0.6 oz pur e alcohol) occaisional Sex and Gender Information Value Date Recorded Sex Assigned at Not on file 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 Gender Identity Not on file Sexual Orientation [...] 50 (fifty) mg subcutaneously every 7 days ONS SYSTEM INSTRUMENT MECHANIC documented in this encounter Plan of Treatment Not on file documented as of this encounter Visit Diagnoses Diagnosis Psoriatic arthritis (HCC)- Primary Psoriatic arthropathy documented in this encounter Care Teams Special Needs Librarian Relationship Specialty Start Date End Date Syl Mcadams MD [address] [place] [address] PCP - General 04/29/18 09/06/22 Maryann Jiménez DO [address] [facility] [address] [place] [address] PCP - General 09/07/22 documented as of this encounter
--- OUTSIDE RECORDS SUMMARY | 2025-04-14 07:39 | XMS_ITS | Encounter Summary ---
Author Organization [facility] Address [address] [place] [address] Care Team Providers Care Oil Well Pumper Name Role Phone Unknown, Provider Primary Care Provider Unavaila ble Chai Giraldo MD Primary Care Provider [phone] Syl Mcadams MD Primary Care Provider [phone] Maryann Jiménez DO Primary Care Provider [phone] Encounter Details Date Type Department Care Team (Late st Contact Info) Description 03/03/2012 [facility] Liliana Owens MD [address] [facility] [address] [place] [address] Social History Tobacco Use Types Packs/Day Years Used Date Smoking Tobacco: Never Assessed Sex and Gender Information Value Date Recorded Sex Assigned at Not on file 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 Gender Identity Not on file Sexual Orientation Not on file documented as of this encounter Plan of Treatment Not on file documented as of this encounter Visit Diagnoses Not on filedocumented in this encounter Care Teams Oil Well Pumper Relationship Specialty Start Date End Date Unknown, Provider PCP - General 02/27/10 01/19/14 Chai Giraldo MD [address] [place] [id number] PCP - General 12/24/17 04/28/18 Syl Mcadams MD [address] [place] [address] PCP - General 04/29/18 09/06/22 Maryann Jiménez DO [address] [facility] [address] [place] [address] PCP - General 09/07/22 documented as of this encounter
--- OUTSIDE RECORDS SUMMARY | 2025-04-14 07:39 | XMS_ITS | Encounter Summary ---
Author Organization [facility] Health Address [address] [facility] [place] [address] Care Team Providers Care Cash Applications Representative Name Role Phone Unknown, Provider Primary Care Provider Unavaila ble Chai Giraldo MD Primary Care Provider [phone] Syl Mcadams MD Primary Care Provider [phone] Maryann Jiménez DO Primary Care Provider [phone] Encounter Details Date Type Department Care Team (Late st Contact Info) Description 01/02/2010 [facility] Liliana Owens MD [address] [facility] [address] [place] [address] Social History Tobacco Use Types Packs/Day Years Used Date Smoking Tobacco: Never Assessed Sex and Gender Information Value Date Recorded Sex Assigned at Not on file 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 Gender Identity Not on file Sexual Orientation Not on file documented as of this encounter Plan of Treatment Not on file documented as of this encounter Visit Diagnoses Not on filedocumented in this encounter Care Teams Cash Applications Representative Relationship Specialty Start Date End Date Unknown, Provider PCP - General 02/27/10 01/19/14 Chai Giraldo MD [address] [place] [id number] PCP - General 12/24/17 04/28/18 Syl Mcadams MD [address] [place] [address] PCP - General 04/29/18 09/06/22 Maryann Jiménez DO [address] [facility] [address] [place] [address] PCP - General 09/07/22 documented as of this encounter
--- OUTSIDE RECORDS SUMMARY | 2025-04-14 07:39 | XMS_ITS | Continuity of Care Document ---
Author Name [facility] Organization [facility] Care Team Providers Care Data Reduction Technician Name Role Phone [facility] Unavailable Unavailable Problems Combined list of problems from Department of Defense and Veterans Affairs facilities. It does not include entries that were removed or entered in error. Problem Status Onset Date Problem Type Date of Resolution Comments Source Hearing Loss, Sensorineural, Unspecified Active Condition [facility] Medications Combined list of outpatient medications from Department of [facility] and [facility] facilities.Medications provided include 1) outpatient medications from the last 15 months, and 2) patient-reported medications. Medication Details Route Status Patient Instructions Prescription Expires Prescription Number Last Dispense Date Ordering Provider Order Date Order Qty Source Alcohol Antiseptic (Alcohol Swabs Eq.) Pads 70% Topical For external use. 01/14/2025 [id number] 4 2023 [address] [employer] [employer] [facility] ([facility]) alcohol prep pad [100EA] See Instruct erin, [...] [employer] 3 ml SYRINGE Active [id number] 4 2023 15 Pharmac y Data Transac [...] with your doctor before becoming . 01/14/2025 [id number] 4 2023 180 [facility] ([facility]) metFORMIN XR 500 mg/24 hour tablet See [...] [employer] .5 ml SYRINGE Active [id number] 4 2023 6 Pharmac y Data Transac [...] Site Reaction Lot Number CVX Code Drug Car Wiper Status Comments Source influenza, high-dose, quadrivalent 2020 [...] seasonal, injectabl e, preservat stefany free [facility] Influenza, seasonal, injectable 2013 SARAH HENRY () [...] at Department of Defense and Veterans Affairs ([place] Functional Worth Measurement (FIM) Scale: 1 = Total Assistance (Subject = 0% +), 2 = Maximal Assistance (Subject = 25% +), 3 = Moderate Assistance (Subject = 50% +), 4 = Minimal Assistance (Subject = 75% +), 5 = Supervision, 6 = Modified Worth (Device), 7 = Complete Worth (Timely, Safely). Assessment Date/Time Source Assessment Type Assessment Skill Assessment Score Assessment Details No data available for this section
--- OUTSIDE RECORDS SUMMARY | 2025-04-14 07:39 | XMS_ITS | Encounter Summary ---
Author Organization [facility] Address [address] [place] [address] Care Team Providers Care Solvent Station Attendant Name Role Phone Syl Mcadams MD Primary Care Provider Syl Mcadams MD Primary Care Provider [phone] Miscellaneous, Not In File Primary Care Provider Unavailable Syl Mcadams MD Primary Care Provider [phone] Maryann Jiménez DO Primary Care Provider + Jose David Betancourt MD Unavailable [phone] Ty Lamb MD Unavailable [phone] Jatinder Jones MD Unavailable [phone] Miscellaneous, Not In File Unavailable Unava ilable Encounter Details Date Type Department Care Team (Late st Contact Info) Description 10/29/2016 Orders Only [facility] Provider, MD [address] [place] [address] Social History Tobacco Use Types Packs/Day Years Used Date Smoking Tobacco: Former Alcohol Use Standard Drinks/Week Comments Yes 0 (1 standard drink = 0.6 oz pur e alcohol) Sex and Gender Information Value Date Recorded Sex Assigned at Not on file 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 Gender Identity Male 01/23/2020 12:25 AM [...] documented as of this encounter Care Teams Solvent Station Attendant Relationship Specialty Start Date End Date Syl Mcadams MD [address] [place] [address] PCP - General 11/30/16 01/21/17 Syl Mcadams MD [address] [place] [address] PCP - General 07/14/13 11/29/16 Miscellaneous, Not In File PCP - General 01/22/17 02/04/17 Syl Mcadams MD [address] [place] [address] PCP - General 02/05/17 07/02/22 Maryann Jiménez DO PCP - General Family Medicine 07/03/22 Jose David Betancourt MD [address] [facility] [address] [place] [address] Consulting Physician Urology 06/19/24 Ty Lamb MD [address] [facility] [address] [place] [address] Surgeon Cardiothoracic Surgery 12/21/24 Jatinder Jones MD [address] [facility] [address] [place] [address] Consulting Physician Cardiology 12/21/24 Miscellaneous, Not In File 12/21/24 documented as of this encounter
--- OUTSIDE RECORDS SUMMARY | 2025-04-14 07:40 | XMS_ITS | Encounter Summary ---
Author Organization [facility] Healthcare Address [address] [place] [address] Care Team Providers Care Calender Roll Operator Name Role Phone Maryann Jiménez DO Primary Care Provider + Jose David Betancourt MD Unavailable [phone] Ty Lamb MD Unavailable [phone] Jatinder Jones MD Unavailable [phone] Miscellaneous, Not In File Unavailable Unava ilable Encounter Details Date Type Department Care Team (Late st Contact Info) Description 01/05/2025 [facility] Post Discharge Follow up phone call [place] [id number] [place] [address] Ariella Larsen Social History Tobacco [...] materials from doctor or pharmacy Never 12/23/2024 [facility] Utilities Answer Date Recorded In the [...] often do you attend chur ch or mosque services? More than 4 times per year 12/17/2024 Do you belong to any clubs o r organizations such as christianity groups, unions, fraternal or athletic groups, or [...] staff should administer the PHQ-9) 0 08/17/2024 [facility] [place] of Occupat ional Health - Occupational Stress [...] were you homeless or living in a senior living (including now)? No 12/17/2024 Personal Safety Answer Date Recorded Have you ever been in or are you currently in a harmful physical or emotional relationship or is someone making you feel afraid or unsafe? 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 Gender Identity Male 01/23/2020 12:25 AM CDT [...] documented as of this encounter Care Teams Calender Roll Operator Relationship Specialty Start Date End Date Maryann Jiménez DO PCP - General Family Medicine 07/03/22 Jose David Betancourt MD [address] [place] [address] Consulting Physician Urology 06/19/24 Ty Lamb MD [address] [place] [address] Surgeon Cardiothoracic Surgery 12/21/24 Jatinder Jones MD [address] [facility] [address] [facility] [address] [place] [address] Consulting Physician Cardiology 12/21/24 Miscellaneous, Not In File 12/21/24 documented as of this encounter
--- OUTSIDE RECORDS SUMMARY | 2025-04-14 07:40 | XMS_ITS | Encounter Summary ---
Author Organization [facility] Healthcare Address [address] [place] [address] Care Team Providers Care Lens Edge Grinder Machine Name Role Phone Maryann Jiménez DO Primary Care Provider + Jose David Betancourt MD Unavailable [phone] Ty Lamb MD Unavailable [phone] Jatinder Jones MD Unavailable [phone] Miscellaneous, Not In File Unavailable Unava ilable Reason for Referral * MRI/CAT/PET Scan (Routine) - Closed Specialty Diagnoses / Procedures Referred By Subhashac t Referred To Contact Radiology Diagnoses Encounter for medical screening examination Procedures CT Head W WO Contrast Corey Lowery MD [address] [address] Phone: tel: fax: [address] [address] Referral ID Status Reason Start Date Expiration Date Visits Re quested Visits Authorized [id number] Closed 04/06/2025 05/06/2026 1 1 Reason for Visit * MRI/CAT/PET Scan (Routine) - Closed Specialty Diagnoses / Procedures Referred By Contac t Referred To Contact Radiology Diagnoses Encounter for medical screening examination Procedures CT Head W WO Contrast Corey Lowery MD [address] [address] Phone: tel: fax: [address] [place] [address] Referral ID Status Reason Start Date Expiration Date Visits Re quested Visits Authorized [id number] Closed 04/06/2025 05/06/2026 1 1 Encounter Details Date Type Department Care Team (Latest Contact Info) Description 04/12/2025 12:56 PM CDT - 04/12/2025 11:59 PM CDT Hospital Encounter [facility] [address] [place] [address] Corey Lowery MD [address] [place] [address] Encounter for medical screening examination Discharge Disposition: Discharge to home or self care Social History Tobacco Use Types Packs/Day Years [...] materials from doctor or pharmacy Never 01/27/2025 [facility] Utilities Answer Date Recorded In the past 12 months has [employer], [employer], or water [employer] threatened to shut off services in your [...] often do you attend chur ch or evangelical services? More than 4 times per year 01/11/2025 Do you belong to any clubs o r organizations such as presybeterian groups, unions, fraternal or athletic groups, or [...] staff should administer the PHQ-9) 0 08/17/2024 [facility] Occupat ional [facility] - Occupational Stress Questionnaire Answer Date Recorded [...] any time in the past 12 m [facility], were you homeless or living in a prison (including now)? No 01/11/2025 Personal Safety Answer Date Recorded Have you ever been in or are you currently in a harmful physical or emotional relationship or is someone making you feel afraid or unsafe? 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 Gender Identity Male 01/23/2020 12:25 AM CDT Sexual Orientation Straight 01/23/2020 12 :25 AM CDT documented as of this encounter Medications at Time of Discharge acetaminophen 500 mg capsuleIndication s:Pain,1st line for pain Take 2 capsules (1,000 mg total) by mouth every 6 (six) hours as needed for pain 12/21/2024 alcohol swabs pads, medicatedIndicati ons:diabetes 10/05/2024 aspirin 81 mg enteric coated tabletIndications :Myocardial Reinfarction Prevention Take 1 tablet by mouth every morning atorvastatin (LIPITOR) 40 mg tabletIndications :arteriosclerotic vascular disease Take 1 tablet by mouth every other day At night 12/18/2021 BD Lyudmila 2nd Gen Pen Needle 32 gauge x 5/32 needleIndications :diabetes 01/15/2024 benzonatate (TESSALON) 100 mg capsuleIndication s:Cough Take 1 capsule (100 mg total) by mouth 3 (three) times a day as needed for cough 30 capsule 01/11/2025 blood-glucose sensor (FreeStyle Brenda 3 Plus Sensor) deviceIndications :Type 2 diabetes mellitus with hyperglycemia, with long-term current use of insulin ([facility]) Dx code E11.65. T2DM with hyperglycemia with [facility] current use of insulin. 3 each 3 02/18/2025 cholecalciferol (VITAMIN D-3) 5,000 unit capsuleIndication s:Vitamin D Deficiency Take 1 capsule by mouth daily cyanocobalamin (Vitamin B-12) 500 mcg tabletIndications :Prevention of Vitamin B12 Deficiency Take 1 tablet by mouth daily doxycycline (doxycycline hyclate) 100 mg capsuleIndication s:Prophylaxis, Medical Take 100 mg by mouth 2 (two) times a day. Indications: Prophylaxis, Medical 01/13/2025 dulaglutide (Trulicity) 3 mg/0.5 mL pen injectorIndicatio ns:type 2 diabetes mellitus Inject 0.5 mL (3 mg total) under the skin once a week 6 mL 2 08/17/2024 EnbreL SureClick 50 mg/mL (1 mL) pen injectorIndicatio ns:Psoriatic Arthritis INJECT 50 MG (1 ML) UNDER THE SKIN EVERY 7 DAYS 8 mL 3 01/11/2025 finasteride (PROSCAR) 5 mg tabletIndications :benign prostatic hyperplasia with lower urinary tract sx Take 1 tablet by mouth every morning guaiFENesin-codei ne (GUAITUSS AC) liquid 100-10 mg/5 mLIndications:Cou gh Take 10 mL by mouth every 6 (six) hours as needed for cough 237 mL 01/12/2025 insulin lispro (HumaLOG, ADMELOG) 100 unit/mL pen for injectionIndicati ons:type 2 diabetes mellitus Inject 6-12 Units under the skin 4 (four) times a day 45 mL 1 01/21/2025 levothyroxine (SYNTHROID) 100 mcg tabletIndications :hypothyroidism Take 1 tablet by mouth director of accounting before breakfast lidocaine (ASPERCREME) 4 % adhesive patch,medicatedIn dications:Posther petic Neuralgia Place 2 patches on the skin daily for 12 hours As needed for back pain 30 patch 01/12/2025 metFORMIN (GLUCOPHAGE) 1,000 mg tabletIndications :type 2 diabetes mellitus Take 1 tablet by mouth daily with breakfast omeprazole (PriLOSEC) 40 mg capsuleIndication s:Stress Ulcer Prophylaxis Take 1 capsule by mouth every morning traMADoL (ULTRAM) 50 mg tabletIndications :Pain,2nd line for pain Take 1 tablet (50 mg total) by mouth every 8 (eight) hours as needed for pain 10 tablet 12/21/2024 TRESIBA 100 unit/mL (3 mL) pen for injectionIndicati ons:type 2 diabetes mellitus INJECT 20 UNITS UNDER THE SKIN NIGHTLY 15 mL 3 01/11/2025 documented as of this encounter Discharge Disposition Disposition Code Departure Means Destination Discharge to home or self care documented in this encounter Plan of Treatment Not on file documented as of this encounter Goals Goal Patient Goal Type Associated Problems Recent Progress Patient-Stated? Author BH-Pain Behavioral Health Worsening(01/2021 2:46 PM CDT) No Flor Lewis, RN Note: Play golf with minimal to no relief. documented as of this encounter Procedures Procedure Name Priority Date/Time Associated Diagnosis Comments CT HEAD W WO CONTRAST Schedule Routine, Read Routine (OP Routine) 04/12/2025 2:11 PM CDT Encounter for medical screening examination documented in this encounter Results * CT Head W WO Contrast [...] by: Sadi Pratt M.D. Corey Lowery MD IMG CT PROCEDURES Final Result documented in this encounter Visit Diagnoses Diagnosis Encounter for medical screening examination documented in this encounter Administered Medications Inactive Administered Medications - up to 3 most recent administrations Medication Order MAR Action Action Date Dose Rate Site ioversoL (OPTIRAY 350) syringe 125 mL 125 mL, intravenous, Once in imaging, contrast, Starting on 04/12/25 at 1401, For 1 dose Contrast Given 04/12/2025 2:07 PM CDT 75 mL documented in this encounter Orders Medications Ordered That Dante ht Not Have Been Administered Count Last Ordered Date First Ordered Date ioversoL (OPTIRAY 350) syringe 125 mL 1 07/2025 documented in this encounter Care Teams Lens Edge Grinder Machine Relationship Specialty Start Date End Date Maryann Jiménez DO PCP - General Family Medicine 07/03/22 Jose David Betancourt MD [address] [facility] [address] [place] [address] Consulting Physician Urology 06/19/24 Ty Lamb MD [address] [place] [address] Surgeon Cardiothoracic Surgery 12/21/24 Jatinder Jones MD [address] [place] [address] Consulting Physician Cardiology 12/21/24 Miscellaneous, Not In File 12/21/24 documented as of this encounter
--- OUTSIDE RECORDS SUMMARY | 2025-04-14 07:40 | XMS_ITS | Encounter Summary ---
Author Organization [facility] Healthcare Address [address] [place] [address] Care Team Providers Care Terrazzo Laborer Name Role Phone Maryann Jiménez DO Primary Care Provider + Jose David Betancourt MD Unavailable [phone] Ty Lamb MD Unavailable [phone] Jatinder Jones MD Unavailable [phone] Miscellaneous, Not In File Unavailable Unava ilable Encounter Details Date Type Department Care Team (Late st Contact Info) Description 11/16/2024 Orders Only [facility] [place] [address] [place] [address] Scanning, Provider Social History Tobacco Use Types Packs/Day Years Used Date Smoking Tobacco: Former Cigarettes Q uit: 04/28/1983 Smokeless Tobacco: Never Comments:quite smoking 1982 Alcohol Use Standard Drinks/Week Comments Yes 0 (1 standard drink = 0.6 oz pur e alcohol) [facility] Utilities Answer Date Recorded In the past 12 months has [employer], gas, oil, or water [employer] threatened to shut off services in your home? No 02/12/2024 Social Connection and Isolation Panel Answer Date Recorded In a typical week, how many times do you talk on the phone with family, friends, or neighbors? More than three times a week 02/12/2024 How often do you get togethe r with friends or relatives? Twice a week 02/12/2024 How often do you attend [facility] or holiness services? 1 to 4 times per year 02/12/2024 Do you belong to any clubs o r organizations such as shinto groups, unions, fraternal or athletic groups, or [...] any time in the past 12 m [facility], were you homeless or living in a prison (including now)? No 02/12/2024 Personal Safety Answer Date Recorded Have you ever been in or are you currently in a harmful physical or emotional relationship or is someone making you feel afraid or unsafe? 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 Gender Identity Male 01/23/2020 12:25 AM CDT [...] Name Priority Date/Time Associated Diagnosis Comments CARDIOLOGY DOCUMENT SCAN 11/16/2024 documented in this encounter Results * Cardiology Document Scan (11/16/2024) Anatomical Region Laterality Modality Other Provider Scanning CV CARDIAC SERVICES PROCEDURES Final Result documented in this encounter Visit Diagnoses Not on filedocumented in this encounter Additional Health Concerns Infection Onset Date Last Indicated Resolved Time COVID: Suspected 11/17/2024 11/17/2024 11/17/2024 8:17 PM CDT COVID: Suspected 01/07/2025 01/07/2025 01/07/2025 8:40 PM CDT Human metapneumovirus, conta ct + droplet 01/07/2025 01/07/2025 01/14/2025 3:05 AM C DT documented as of this encounter Care Teams Terrazzo Laborer Relationship Specialty Start Date End Date Maryann Jiménez DO PCP - General Family Medicine 07/03/22 Jose David Betancourt MD [address] [address] Consulting Physician Urology 06/19/24 Ty Lamb MD [address] [facility] [address] [place] [address] Surgeon Cardiothoracic Surgery 12/21/24 Jatinder Jones MD [address] [place] [address] Consulting Physician Cardiology 12/21/24 Miscellaneous, Not In File 12/21/24 documented as of this encounter
--- OUTSIDE RECORDS SUMMARY | 2025-04-14 07:40 | XMS_ITS | Encounter Summary ---
Author Organization [facility] Address [address] [place] [address] Phone Care Team Providers Care Patient Access Registrar Name Role Phone Maryann Jiménez DO Primary Care Provider + Jose David Betancourt MD Unavailable [phone] Ty Lamb MD Unavailable [phone] Jatinder Jones MD Unavailable [phone] Miscellaneous, Not In File Unavailable Unava ilable Reason for Visit * Reason Onset Date Comments Care Consultation 04/13/2025 See note. Paty kyle LCSW Encounter Details Date Type Department Care Team (Late st Contact Info) Description 04/13/2025 Documentation [facility] [address] [facility] [address] [place] [address] Min Noel LCSW [address] [facility] [address] [place] [address] Care Consultation (See note. PEACE Pace) Social History Tobacco Use Types Packs/Day Years [...] doctor or pharmacy Never 01/27/2025 [facility] Utilities Answer Date Recorded In the [...] often do you attend chur ch or mormonism services? 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 He has done his planning but day to day is very hard as he doesn't realize the deficits CS sees so she feels the need to continually document so he will believe what she is managing and it is exhausting. They are still very much hoping to get a firmer diagnosis to understand what is happening and get it treated. We discussed him trying to believe her as he says she is a trusted informer of what is happening and if he can get on board and others in the family she can work with [facility] and otherwise to learn how to communicate and support him without so much correction. They were both open to the discussion. She has some pain issues that are in need of getting addressed potentially with him either staying at home with support and her getting rest elsewhere or him going somewhere to give her a mental and physical health reset. They also wanted to know why they haven't heard from the neuropsych testers and I sent a note to the medical team about next steps. They will contact me as needed. PEACE Pace documented in this encounter Plan of Treatment Not on file documented as of this encounter Goals Goal Patient Goal Type Associated Problems Recent Progress Patient-Stated? Author BH-Pain Behavioral Health Worsening(01/2021 2:46 PM CDT) Flor Guzman, RN Note: Play golf with minimal to no relief. documented as of this encounter Visit Diagnoses Not on filedocumented in this encounter Care Teams Patient Access Registrar Relationship Specialty Start Date End Date Maryann Jiménez DO PCP - General Family Medicine 07/03/22 Jose David Betancourt MD [address] [place] [address] Consulting Physician Urology 06/19/24 Ty Lamb MD [address] [place] [address] Surgeon Cardiothoracic Surgery 12/21/24 Jatinder Jones MD [address] [place] [address] Consulting Physician Cardiology 12/21/24 Miscellaneous, Not In File 12/21/24 documented as of this encounter
--- OUTSIDE RECORDS SUMMARY | 2025-04-14 07:40 | XMS_ITS | Encounter Summary ---
Author Organization [facility] Healthcare Address [address] [place] [address] Care Team Providers Care Retread Mold Operator Name Role Phone Maryann Jiménez DO Primary Care Provider + Jose David Betancourt MD Unavailable [phone] Ty Lamb MD Unavailable [phone] Jatinder Jones MD Unavailable [phone] Miscellaneous, Not In File Unavailable Unava ilable Encounter Details Date Type Department Care Team (Late st Contact Info) Description 01/25/2025 [facility] Post Discharge Follow up phone call [place] [id number] [place] [address] Ariella Larsen Social History Tobacco [...] materials from doctor or pharmacy Never 01/27/2025 [facility] Utilities Answer Date Recorded In [...] How often do you attend chur or congregational services? 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 Gender Identity Male 01/23/2020 12:25 AM CDT [...] on filedocumented in this encounter Care Teams Retread Mold Operator Relationship Specialty Start Date End Date Maryann Jiménez DO PCP - General Family Medicine 07/03/22 Jose David Betancourt MD [address] [place] [address] Consulting Physician Urology 06/19/24 Ty Lamb MD [address] [place] [address] Surgeon Cardiothoracic Surgery 12/21/24 Jatinder Jones MD [address] [place] [address] Consulting Physician Cardiology 12/21/24 Miscellaneous, Not In File 12/21/24 documented as of this encounter
--- OUTSIDE RECORDS SUMMARY | 2025-04-14 07:40 | XMS_ITS | Encounter Summary ---
Author Organization [facility] [place] [facility] Address [address] [place] [address] Phone Care Team Providers Care Office Communication Professor Name Role Phone Maryann Jiménez DO Primary Care Provider + Jose David Betancourt MD Unavailable [phone] Ty Lamb MD Unavailable [phone] Jatinder Jones MD Unavailable [phone] Miscellaneous, Not In File Unavailable Unava ilable Encounter Details Date Type Department Care Team (Late st Contact Info) Description 04/13/2025 Telephone [facility] [place] [address] [facility] [address] [place] [address] Min Noel LCSW [address] [facility] [address] [place], [place] [id number] Social History Tobacco Use Types Packs/Day Years [...] materials from doctor or pharmacy Never 01/27/[address] [facility] Utilities Answer Date Recorded In the [...] often do you attend chur ch or caodaism services? More than 4 times per year [...] staff should administer the PHQ-9) 0 08/17/2024 [facility] Occupat ional Health - Occupational [...] money to buy more. Never true 01/12/20 Within the past 12 months, t he [...] living in a fdc (including now)? No 01/11/2025 Personal Safety Answer Date Recorded Have you ever been in or are you currently in a harmful physical or emotional relationship or is someone making you feel afraid or unsafe? 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 PEACE Pace documented in this encounter Plan of Treatment Not on file documented as of this encounter Goals Goal Patient Goal Type Associated Problems Recent Progress Patient-Stated? Author BH-Pain Behavioral Health Worsening(01/2021 2:46 PM CDT) Flor Guzman, RN Note: Play golf with minimal to no relief. documented as of this encounter Visit Diagnoses Not on filedocumented in this encounter Care Teams Office Communication Professor Relationship Specialty Start Date End Date Maryann Jiménez DO PCP - General Family Medicine 07/03/22 Jose David Betancourt MD [address] [place] [address] Consulting Physician Urology 06/19/24 Ty Lamb MD [address] [place] [address] Surgeon Cardiothoracic Surgery 12/21/24 Jatinder Jones MD [address] [facility] [address] [facility] [address] [place] [address] Consulting Physician Cardiology 12/21/24 Miscellaneous, Not In File 12/21/24 documented as of this encounter
[2025-04-14 08:13] LABS: Fractional Inspired Oxygen 21 %; HCO3 VBG 21.6 mEq/l (24.0-30.0); PCO2 VBG 33.0 mmHg (42.0-48.0); PO2 VBG 49.7 mmHg (35.0-45.0)
[2025-04-14 08:14] LABS: pH VBG 7.433 (7.300-7.400)
[2025-04-14 08:15] LABS: Hematocrit 38.3 % (42.0-52.0); Hemoglobin 11.9 g/dL (14.0-18.0); Immature Granulocyte Percent A 0.4 % (0-0.5); Lymphocytes Absolute Auto 0.67 K/mm3 (0.9-3.2); Mean Corpuscular HGB Conc 31.1 g/dl (32-36); Mean Corpuscular Hemoglobin 23.5 pg (26-34); Mean Corpuscular Volume 75.5 fl (80-100); Nucleated Red Blood Cells Absolute Auto 0.000 K/mm3 (0.0-0.012); Nucleated Red Blood Cells Perc 0.0 % (0.0-0.2); Platelet Count Result 235 k/mm3 (150-375); Red Blood Count 5.07 M/mm3 (4.6-6.20); White Blood Count 11.7 K/mm3 (4.5-10.0)
[2025-04-14 08:29] LABS: Alanine Aminotransferase 39 U/L (6-50); Albumin Level 4.3 g/dL (3.5-5.1); Alkaline Phosphatase 124 U/L (38-126); Anion Gap 13 mmol/L (4-12); Aspartate Amino Transferase 38 U/L (17-59); Bilirubin,Total 0.5 mg/dL (0.2-1.3); Blood Urea Nitrogen 20 mg/dL (9-20); Calcium 10.0 mg/dL (8.4-10.2); Carbon Dioxide 22 mmol/L (22-30); Chloride 100 mmol/L (98-107); Estimated CRCL calculation 72 ml/min; Estimated Glomerular Filt Rate > 60; Glucose 570 mg/dL (65-110); Lipase 110 U/L (23-300); Magnesium 2.0 mg/dL (1.6-2.3); Potassium 4.4 mmol/L (3.4-5.0); Sodium 135 mmol/L (137-145); Total Protein 7.9 g/dL (6.3-8.2)
[2025-04-14 08:48] LABS: Add Urine Microscopic? NO; Appearance Urine Clear (Clear); Glucose Urine UA 3+ mg/dL (Negative); Leukocyte Esterase Ur Negative LEU/UL (Negative); Nitrate Urine Negative (Negative); Non Pathogenic Casts 0-2; Specific Grav Ur 1.037 (1.001-1.035)
[2025-04-14 08:52] LABS: Influenza A QL RT-PCR Negative (Negative); Influenza B QL RT-PCR Negative (Negative); RSV RNA, RT-PCR Negative (Negative); SARS-CoV-2 RNA PCR Negative (Negative)
[2025-04-14] MEDS: LACTATED RINGERS 1,000 ML 999 ML IV CONT (10:01)
[2025-04-14] MEDS: INSULIN HUMAN REGULAR (*BKC) 100 UNITS/ML 10 UNITS IV PUSH (10:02)
--- NOTE | 2025-04-14 13:47 | ED_ITS ---
HPI - General Adult General Chief complaint: Recheck/Abnormal Lab/Rx Stated complaint: high BS Time Seen by Provider: 04/14/25 07:34 History of Present Illness HPI narrative: This is a 74-year-old male with insulin-dependent diabetes presenting for elevated glucose. Patient received a steroid injection for left shoulder pain yesterday. Since then he has noticed his blood sugars have been running ?high. ?Patient is otherwise asymptomatic without fevers chills nausea vomiting diarrhea abdominal pain urinary symptoms chest pain difficulty breathing. Patient takes list Pro 12 units with meals. He takes 20 units long-acting before bed. Related Data Home Medications ?Medication ?Instructions ?Recorded ?Confirmed ?Last Taken ?Type aspirin 81 mg tablet,delayed 81 mg PO QAM 08/10/19 03/31/25 11/16/24 06:00 History release (Adult Low Dose Aspirin) acetaminophen 500 mg capsule 1,000 mg PO Q6H PRN 01/14/25 03/31/25 Unknown History atorvastatin 40 mg tablet (Lipitor) 40 mg PO .QOD 01/14/25 03/31/25 Unknown History cholecalciferol (vitamin D3) 125 125 mcg PO DAILY 01/14/25 03/31/25 Unknown History mcg (5,000 unit) capsule cyanocobalamin (vitamin B-12) 500 500 mcg PO DAILY 01/14/25 03/31/25 Unknown History mcg tablet dulaglutide 3 mg/0.5 mL 3 mg subcut WEEKLY 01/14/25 03/31/25 Unknown History subcutaneous pen injector (Trulicity) furosemide 40 mg tablet 40 mg PO BID 01/14/25 03/31/25 Unknown History insulin degludec 100 unit/mL (3 20 unit subcut QHS 01/14/25 03/31/25 Unknown History mL) subcutaneous pen (Tresiba FlexTouch U-100 insulin) insulin lispro 100 unit/mL 1 sliding scale dose subcut 01/14/25 03/31/25 Unknown History subcutaneous pen (Humalog KwikPen USEASDIRECTD (U-100) Insulin) Allergies Allergy/AdvReac Type Severity Reaction Status Date / Time atropine Allergy Severe DECREASED Verified 04/14/25 07:34 HR meloxicam AdvReac Mild Dizziness Verified 04/14/25 07:34 [facility] Past Medical History Medical History Mixed hyperlipidemia XOCHITL (obstructive sleep apnea) TIA (transient ischemic attack) Colonic mass Hypertension Obesity CAD (coronary artery disease) Umbilical hernia without mention of obstruction or gangrene Symptomatic cholelithiasis Diabetes mellitus Cervical radiculopathy Esophageal reflux Essential (primary) hypertension Hypothyroidism, unspecified Male erectile dysfunction, unspecified Metabolic syndrome Primary generalized (osteo)arthritis Psoriatic arthropathy Type 2 diabetes mellitus with hyperglycemia Cardiac pacemaker Fusion of spine, cervical region Kidney stone Infective otitis externa of left ear History of cardiac monitoring Surgical History Surgical History History of incision and drainage right upper arm Hx of CABG S/P lumbar laminectomy (~02/2024) Status post colon resection S/P laparoscopic colectomy laparoscopic sigmoid colectomy with colorectal anastomosis, da Yolanda assisted History of laparoscopic cholecystectomy 05/10/20 Hx of tonsillectomy Hx of LASIK Hx of LASIK H/O heart artery stent 3 stents 2009 Family History Family History (Updated 04/09/25 @ 15:03 by Sofi Paz RN) Sibling Acute myocardial infarction Depression Carcinoma of colon Cerebrovascular accident Grandparent Family history of cardiovascular disease Diabetes mellitus Carcinoma of colon, Onset Age: 85 Father Family history of cardiovascular disease Acute myocardial infarction, Onset Age: 72 Hypertension Emphysema of lung Social History Social History Social History: Caffeine-daily Smoking packs per day: 1 Smoking cigarettes per day: 20.0 Years smoked: 9 Smoking pack-years: 9.00 Smoking status: Former smoker Tobacco type: cigarettes Second hand tobacco smoke exposure: No Smoking end date: 09/02/82 Alcohol intake: never Drinks per week: 1 Alcohol use details: Rarely Substance use: never Substance use type: does not use Do You Feel Safe in your Home?: Yes Lack of Transportation: No Lack of Food: Never True Current Housing: I Have Housing Concerned About Future Housing: No Difficulty Paying Gas/Electric Bills: No Difficulty Paying for Meds: No Currently Unemployed: No Education: Master's Degree or Higher Difficulty w/ Childcare or Family Care: No Living arrangements: with family Additional living arrangements comments: DAUGHTER Gender identity (if verbalized by the patient): Male Spiritual care concerns: No Exam 2 Narrative: APPEARANCE: No apparent distress. Head: atraumatic. EYES: EOMI, NOSE: Atraumatic NECK: Trachea midline RESPIRATORY: No increased rate of breathing, CTAB CARDIOVASCULAR: RRR, no peripheral edema ABDOMINAL: Non-distended soft nontender MUSCULOSKELETAl: No obvious deformities NEURO: Alert. Moving 4/4 extremities SKIN:: Warm, dry. Normal color PSYCHIATRIC: Normal affect Course Vital Signs Vital signs: Vital Signs Temperature 97.6 F 04/14/25 07:26 Pulse Rate 91 04/14/25 07:26 Respiratory Rate 20 04/14/25 07:26 Blood Pressure 184/89 H 04/14/25 07:26 Pulse Oximetry 95 04/14/25 07:26 Oxygen Delivery Room Air 04/14/25 07:26 Temperature 97.6 F 04/14/25 07:26 Pulse Rate 91 04/14/25 13:00 Respiratory Rate 21 H 04/14/25 13:00 Blood Pressure 168/82 H 04/14/25 11:26 Pulse Oximetry 95 04/14/25 13:00 Oxygen Delivery Room Air 04/14/25 07:26 Medical Decision Making [facility] Narrative Medical decision making narrative: -Course: 74-year-old male presenting with elevated glucose after receiving a corticosteroid shot for left shoulder pain. Glucose elevated at 570. No evidence of DKA/HHS. Infectious screening was negative. Patient received 10 units of insulin and some fluids with improvement in blood sugar. Results were discussed with the patient. Glucose likely elevated due to his steroid injection. Patient issues checking his blood sugar multiple times a day and is comfortable giving x-ray insulin as needed for elevated blood sugar. He will be discharged home to follow up with primary care physician. Given return precautions for fevers, weakness or any new or worsening symptoms. -DDX includes but is not limited to: Infection, DKA/HHS, steroid side effect -Co-morbidities complicating care: Insulin-dependent diabetes Vital Signs Vital Signs: Vital Signs Temperature 97.6 F 04/14/25 07:26 Pulse Rate 91 04/14/25 07:26 Respiratory Rate 20 04/14/25 07:26 Blood Pressure 184/89 H 04/14/25 07:26 Pulse Oximetry 95 04/14/25 07:26 Oxygen Delivery Room Air 04/14/25 07:26 Temperature 97.6 F 04/14/25 07:26 Pulse Rate 91 04/14/25 13:00 Respiratory Rate 21 H 04/14/25 13:00 Blood Pressure 168/82 H 04/14/25 11:26 Pulse Oximetry 95 04/14/25 13:00 Oxygen Delivery Room Air 04/14/25 07:26 Lab Data 04/14/25 08:06 04/14/25 08:06 Labs: Lab Results 04/14/25 04/14/25 04/14/25 Range/Units 07:28 08:06 08:40 WBC 11.7 H (4.5-10.0) K/mm3 RBC 5.07 (4.6-6.20) M/mm3 Hgb 11.9 L (14.0-18.0) g/dL Hct 38.3 L (42.0-52.0) % MCV 75.5 L (80-100) fl MCH 23.5 L (26-34) pg MCHC 31.1 L (32-36) g/dl RDW 15.7 H (11.5-14.5) % Plt Count 235 (150-375) k/mm3 MPV 8.9 (7.4-10.4) fl Immature Gran % (Auto) 0.4 (0-0.5) % Neut % (Auto) 89.9 H (45.5-73.1) % Lymph % (Auto) 5.7 L (18.3-44.2) % [place] % (Auto) 3.8 (2.6-8.5) % Eos % (Auto) 0.0 (0-4.4) % Baso % (Auto) 0.2 (0.2-1.2) % Lymph # (Auto) 0.67 L (0.9-3.2) K/mm3 [place] # (Auto) 0.5 (0.1-0.6) K/mm3 Eos # (Auto) 0.0 (0-0.3) K/mm3 Baso # (Auto) 0.0 (0.0-0.1) K/mm3 Abs Immat Gran (auto) 0.05 H (0.00-0.031) K/mm3 Absolute Neuts (auto) 10.5 H (1.3-6.7) K/mm3 Absolute Nucleated RBC 0.000 (0.0-0.012) K/mm3 Nucleated RBC % 0.0 (0.0-0.2) % Sodium 135 L (137-145) mmol/L Potassium 4.4 (3.4-5.0) mmol/L Chloride 100 (98-107) mmol/L Carbon Dioxide 22 (22-30) mmol/L Anion Gap 13 H (4-12) mmol/L BUN 20 (9-20) mg/dL Creatinine 0.84 (0.7-1.3) mg/dL Estim Creat Clear Calc 72 ml/min Estimated GFR > 60 (59 - ) Glucose 570 H* (65-110) mg/dL POC Capillary Glucose > 500 H* (65-105) mg/dl Lactic Acid 3.2 H (0.7-2.0) mmol/L Calcium 10.0 (8.4-10.2) mg/dL Phosphorus 3.9 (2.5-4.5) mg/dL Magnesium 2.0 (1.6-2.3) mg/dL Total Bilirubin 0.5 (0.2-1.3) mg/dL AST 38 (17-59) U/L ALT 39 (6-50) U/L Alkaline Phosphatase 124 (38-126) U/L Total Protein 7.9 (6.3-8.2) g/dL Albumin 4.3 (3.5-5.1) g/dL Lipase 110 (23-300) U/L Urine Color Yellow (Yellow) Urine Appearance Clear (Clear) Urine pH 5.5 (5.0-9.0) Ur Specific [place] 1.037 H (1.001-1.035) Urine Protein Negative (Negative) mg/dL Urine Glucose (UA) 3+ H (Negative) mg/dL Urine Ketones Trace H (Negative) mg/dL Ur Blood (Man) Non-hemolyzed trace (Negative) Urine Nitrate Negative (Negative) Urine Bilirubin Negative (Negative) Urine Urobilinogen 0.2 (<2.0) mg/dL Leukocyte Esterase Rfl Negative (Negative) ANA/UL Urine RBC 0-2 (0-2) /hpf Urine WBC 0-5 (0-3) /hpf Ur Squamous Epith Cells None seen (Few) /hpf Urine Bacteria None seen /hpf Urine Casts 0-2 Influenza A (RT-PCR) Negative (Negative) Influenza B (RT-PCR) Negative (Negative) RSV (RT-PCR) Negative (Negative) SARS-CoV-2 RNA (RT-PCR) Negative (Negative) 04/14/25 04/14/25 04/14/25 Range/Units 09:53 11:02 11:08 WBC (4.5-10.0) K/mm3 RBC (4.6-6.20) M/mm3 Hgb (14.0-18.0) g/dL Hct (42.0-52.0) % MCV (80-100) fl MCH (26-34) pg MCHC (32-36) g/dl RDW (11.5-14.5) % Plt Count (150-375) k/mm3 MPV (7.4-10.4) fl Immature Gran % (Auto) (0-0.5) % Neut % (Auto) (45.5-73.1) % Lymph % (Auto) (18.3-44.2) % [place] % (Auto) (2.6-8.5) % Eos % (Auto) (0-4.4) % Baso % (Auto) (0.2-1.2) % Lymph # (Auto) (0.9-3.2) K/mm3 [place] # (Auto) (0.1-0.6) K/mm3 Eos # (Auto) (0-0.3) K/mm3 Baso # (Auto) (0.0-0.1) K/mm3 Abs Immat Gran (auto) (0.00-0.031) K/mm3 Absolute Neuts (auto) (1.3-6.7) K/mm3 Absolute Nucleated RBC (0.0-0.012) K/mm3 Nucleated RBC % (0.0-0.2) % Sodium (137-145) mmol/L Potassium (3.4-5.0) mmol/L Chloride (98-107) mmol/L Carbon Dioxide (22-30) mmol/L Anion Gap (4-12) mmol/L BUN (9-20) mg/dL Creatinine (0.7-1.3) mg/dL Estim Creat Clear Calc ml/min Estimated GFR (59 - ) Glucose (65-110) mg/dL POC Capillary Glucose 472 H 402 H (65-105) mg/dl Lactic Acid 2.5 H (0.7-2.0) mmol/L Calcium (8.4-10.2) mg/dL Phosphorus (2.5-4.5) mg/dL Magnesium (1.6-2.3) mg/dL Total Bilirubin (0.2-1.3) mg/dL AST (17-59) U/L ALT (6-50) U/L Alkaline Phosphatase (38-126) U/L Total Protein (6.3-8.2) g/dL Albumin (3.5-5.1) g/dL Lipase (23-300) U/L Urine Color (Yellow) Urine Appearance (Clear) Urine pH (5.0-9.0) Ur Specific [place] (1.001-1.035) Urine Protein (Negative) mg/dL Urine Glucose (UA) (Negative) mg/dL Urine Ketones (Negative) mg/dL Ur Blood (Man) (Negative) Urine Nitrate (Negative) Urine Bilirubin (Negative) Urine Urobilinogen (<2.0) mg/dL Leukocyte Esterase Rfl (Negative) ANA/UL Urine RBC (0-2) /hpf Urine WBC (0-3) /hpf Ur Squamous Epith Cells (Few) /hpf Urine Bacteria /hpf Urine Casts Influenza A (RT-PCR) (Negative) Influenza B (RT-PCR) (Negative) RSV (RT-PCR) (Negative) SARS-CoV-2 RNA (RT-PCR) (Negative) 04/14/25 04/14/25 Range/Units 12:05 13:03 WBC (4.5-10.0) K/mm3 RBC (4.6-6.20) M/mm3 Hgb (14.0-18.0) g/dL Hct (42.0-52.0) % MCV (80-100) fl MCH (26-34) pg MCHC (32-36) g/dl RDW (11.5-14.5) % Plt Count (150-375) k/mm3 MPV (7.4-10.4) fl Immature Gran % (Auto) (0-0.5) % Neut % (Auto) (45.5-73.1) % Lymph % (Auto) (18.3-44.2) % Bullitt % (Auto) (2.6-8.5) % Eos % (Auto) (0-4.4) % Baso % (Auto) (0.2-1.2) % Lymph # (Auto) (0.9-3.2) K/mm3 [place] # (Auto) (0.1-0.6) K/mm3 Eos # (Auto) (0-0.3) K/mm3 Baso # (Auto) (0.0-0.1) K/mm3 Abs Immat Gran (auto) (0.00-0.031) K/mm3 Absolute Neuts (auto) (1.3-6.7) K/mm3 Absolute Nucleated RBC (0.0-0.012) K/mm3 Nucleated RBC % (0.0-0.2) % Sodium (137-145) mmol/L Potassium (3.4-5.0) mmol/L Chloride (98-107) mmol/L Carbon Dioxide (22-30) mmol/L Anion Gap (4-12) mmol/L BUN (9-20) mg/dL Creatinine (0.7-1.3) mg/dL Estim Creat Clear Calc ml/min Estimated GFR (59 - ) Glucose (65-110) mg/dL POC Capillary Glucose 379 H 406 H (65-105) mg/dl Lactic Acid (0.7-2.0) mmol/L Calcium (8.4-10.2) mg/dL Phosphorus (2.5-4.5) mg/dL Magnesium (1.6-2.3) mg/dL Total Bilirubin (0.2-1.3) mg/dL AST (17-59) U/L ALT (6-50) U/L Alkaline Phosphatase (38-126) U/L Total Protein (6.3-8.2) g/dL Albumin (3.5-5.1) g/dL Lipase (23-300) U/L Urine Color (Yellow) Urine Appearance (Clear) Urine pH (5.0-9.0) Ur Specific [place] (1.001-1.035) Urine Protein (Negative) mg/dL Urine Glucose (UA) (Negative) mg/dL Urine Ketones (Negative) mg/dL Ur Blood (Man) (Negative) Urine Nitrate (Negative) Urine Bilirubin (Negative) Urine Urobilinogen (<2.0) mg/dL Leukocyte Esterase Rfl (Negative) ANA/UL Urine RBC (0-2) /hpf Urine WBC (0-3) /hpf Ur Squamous Epith Cells (Few) /hpf Urine Bacteria /hpf Urine Casts Influenza A (RT-PCR) (Negative) Influenza B (RT-PCR) (Negative) RSV (RT-PCR) (Negative) SARS-CoV-2 RNA (RT-PCR) (Negative) ABG Data ABG results: 04/14/25 08:06 VBG pH 7.433 H* VBG pCO2 33.0 L VBG pO2 49.7 H VBG HCO3 21.6 L O2 Delivery Device Room air O2 Liters/Min Not Reportable FiO2 21 Discharge Plan Discharge Clinical Impression: Blood glucose elevated, Steroid side effects Patient Disposition: Home Condition: Stable Instructions: Antibiotic Form, How to Check your Blood Sugar (DC) Additional Instructions: You were seen in the emergency department for high glucose. This is due to the your steroid injection. You may have to take extra insulin to keep your blood sugars under control. Please call your primary care physician 1st thing tomorrow morning to arrange close follow-up. If you develop uncontrolled blood sugars fevers or any new or worsening symptoms please return to ED for re- evaluation. Patient Language: Yakut Prescriptions: No Action aspirin [Adult Low Dose Aspirin] 81 mg tablet,delayed release (DR/EC) 81 mg PO QAM (DME) lancets [FreeStyle Lancets] 28 gauge misc See Rx Instructions .Route Qty: 100 1RF Rx Instructions: As directed (DME) Freestyle InsuLinx Test Strips Strip See Rx Instructions .Route Qty: 100 2RF Rx Instructions: As directed eszopiclone [Lunesta] 2 mg tablet 2 mg PO QHS Qty: 1 0RF Rx Instructions: Take on night of sleep study Enbrel 50 mg/mL (1 mL) syringe 50 mg SUB-Q WEEKLY Qty: 13 0RF Rx Instructions: SUNDAYS sure click pen furosemide 40 mg tablet 40 mg PO BID insulin degludec [Tresiba FlexTouch U-100] 100 unit/mL (3 mL) insulin pen 20 unit subcut QHS acetaminophen 500 mg capsule 1,000 mg PO Q6H PRN atorvastatin [Lipitor] 40 mg tablet 40 mg PO .QOD cholecalciferol (vitamin D3) 125 mcg (5,000 unit) capsule 125 mcg PO DAILY cyanocobalamin (vitamin B-12) 500 mcg tablet 500 mcg PO DAILY insulin lispro [Humalog KwikPen Insulin] 100 unit/mL insulin pen 1 sliding scale dose subcut USEASDIRECTD Rx Instructions: 6-12 units, subcutaneous, 4 times daily Trulicity 3 mg/0.5 mL pen injector 3 mg subcut WEEKLY (DME) pen needle, diabetic 32 gauge x 5/32 needle See Rx Instructions .Route Qty: 450 3RF Rx Instructions: Use to inject insulin 5 times daily finasteride 5 mg tablet 5 mg PO DAILY Qty: 90 1RF levothyroxine [Synthroid] 100 mcg tablet 100 mcg PO QAM Qty: 90 1RF losartan 25 mg tablet 25 mg PO DAILY Qty: 90 1RF omeprazole 40 mg capsule,delayed release(DR/EC) 40 mg PO DAILY Qty: 90 1RF metformin 1,000 mg tablet 1,000 mg PO DAILY Qty: 90 1RF potassium chloride [K-Tab] 20 mEq tablet extended release 20 meq PO DAILY Qty: 90 1RF metoprolol tartrate 25 mg tablet 12.5 mg PO BID Qty: 180 1RF doxycycline hyclate 100 mg capsule 100 mg PO Q12H 7 Days Qty: 10 0RF clopidogrel 75 mg tablet 75 mg PO DAILY Qty: 90 1RF Follow-up/Referrals: Maryann Jiménez DO [Primary Care Provider] - 1 Day (Elevated glucose after steroid injection)
== END 2025-04-14 14:08 | disposition home or self-care (01) ==
PROVIDERS: Emergency Provider Emergency Medicine; PCP Family Medicine
DX: E11.65 Type 2 diabetes mellitus with hyperglycemia (principal); T38.0X5A Adverse effect of glucocorticoids and synthetic analogues, initial encounter; Z79.4 Long term (current) use of insulin; E78.2 Mixed hyperlipidemia; G47.33 Obstructive sleep apnea (adult) (pediatric); Z86.73 Personal history of transient ischemic attack (TIA), and cerebral infarction without residual deficits; I10 Essential (primary) hypertension; I25.10 Atherosclerotic heart disease of native coronary artery without angina pectoris; E03.9 Hypothyroidism, unspecified; Z95.0 Presence of cardiac pacemaker; Z87.891 Personal history of nicotine dependence; Z11.59 Encounter for screening for other viral diseases
CPT/HCPCS: 36415; 71045; 80053; 81003; 82803; 82948; 83605; 83690; 83735; 84100; 85025; 87637; 93005; 96361; 96374; 99284; J1815; J7120

== ENCOUNTER 2025-05-24 07:56 | Outpatient (CLI) | payer MEDICARE, OTHER, SELFPAY ==
--- OUTSIDE RECORDS SUMMARY | 2025-05-24 08:25 | XMS_ITS | Encounter Summary ---
Author Organization [facility] Address [address] [place] [address] Care Team Providers Care Senior Pl Sql Developer Name Role Phone Syl Mcadams MD Primary Care Provider [phone] Maryann Jiménez DO Primary Care Provider [phone] Reason for Visit * Reason Onset Date Comments MEDICATION REFILL 11/08/2020 Encounter Details Date Type Department Care Team (Late st Contact Info) Description 11/08/2020 Refill [facility] [address] [place] [address], [place] [address] Nico Jones MD [address] [place] [address] [place] [address] MEDICATION REFILL Social History Tobacco Use Types Packs/Day Years Used Date Smoking Tobacco: Passive Smo ke Exposure - Never Smoker Smokeless Tobacco: Never Alcohol Use Standard Drinks/Week Comments Yes 0 (1 standard drink = 0.6 oz pur e alcohol) occaisional Sex and Gender Information Value Date Recorded Sex Assigned at Not on file 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 Gender Identity Not on file Sexual Orientation [...] 50 (fifty) mg subcutaneously every 7 days T PROBATION OFFICER documented in this encounter Plan of Treatment Not on file documented as of this encounter Visit Diagnoses Diagnosis Psoriatic arthritis (HCC)- Primary Psoriatic arthropathy documented in this encounter Care Teams Senior Pl Sql Developer Relationship Specialty Start Date End Date Syl Mcadams MD [address] [place] [address] PCP - General 04/29/18 09/06/22 Maryann Jiménez DO [address] [facility] [address] [place] [address] PCP - General 09/07/22 documented as of this encounter
--- OUTSIDE RECORDS SUMMARY | 2025-05-24 08:25 | XMS_ITS | Encounter Summary ---
Author Organization [facility] Healthcare Address [address] [place] [address] Care Team Providers Care Tooling Manager Name Role Phone Maryann Jiménez DO Primary Care Provider + Jose David Betancourt MD Unavailable [phone] Ty Lamb MD Unavailable [phone] Jatinder Jones MD Unavailable [phone] Miscellaneous, Not In File Unavailable Unava ilable Encounter Details Date Type Department Care Team (Late st Contact Info) Description 01/05/2025 [facility] Post Discharge Follow up phone call [id number] [place] [address] Ariella Larsen Social History Tobacco [...] materials from doctor or pharmacy Never 12/23/2024 [facility] Utilities Answer Date Recorded In [...] often do you attend chur ch or scientology services? 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 Gender Identity Male 01/23/2020 12:25 AM CDT [...] documented as of this encounter Care Teams Tooling Manager Relationship Specialty Start Date End Date Maryann Jiménez DO PCP - General Family Medicine 07/03/22 Jose David Betancourt MD [address] [place] [address] Consulting Physician Urology 06/19/24 Ty Lamb MD [address] [place] [address] Surgeon Cardiothoracic Surgery 12/21/24 Jatinder Jones MD [address] [facility] [address] [facility] [address] [place] [address] Consulting Physician Cardiology 12/21/24 Miscellaneous, Not In File 12/21/24 documented as of this encounter
--- OUTSIDE RECORDS SUMMARY | 2025-05-24 08:25 | XMS_ITS | Encounter Summary ---
Author Organization [facility] Healthcare Address [address] [place] [address] Care Team Providers Care Manager Media Relations Name Role Phone Maryann Jiménez DO Primary Care Provider + Jose David Betancourt MD Unavailable [phone] Ty Lamb MD Unavailable [phone] Jatinder Jones MD Unavailable [phone] Miscellaneous, Not In File Unavailable Unava ilable Encounter Details Date Type Department Care Team (Late st Contact Info) Description 01/25/2025 [facility] Post Discharge Follow up phone call [id number] [place] [address] Ariella Larsen Social History Tobacco [...] materials from doctor or pharmacy Never 01/27/2025 [facility] Utilities Answer Date Recorded In the [...] How often do you attend chur or latter day services? More than 4 times per year 01/11/2025 Do you belong to any clubs o r organizations such as yazidism groups, unions, fraternal or athletic groups, or [...] staff should administer the PHQ-9) 0 08/17/2024 [facility] [place] of Occupat ional Health - Occupational Stress [...] any time in the past 12 m [facility], were you homeless or living in a senior care (including now)? No 01/11/2025 Personal Safety Answer Date Recorded Have you ever been in or are you currently in a harmful physical or emotional relationship or is someone making you feel afraid or unsafe? 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 Gender Identity Male 01/23/2020 12:25 AM CDT [...] on filedocumented in this encounter Care Teams Manager Media Relations Relationship Specialty Start Date End Date Maryann Jiménez DO PCP - General Family Medicine 07/03/22 Jose David Betancourt MD [address] [place] [address] Consulting Physician Urology 06/19/24 Ty Lamb MD [address] [place] [address] Surgeon Cardiothoracic Surgery 12/21/24 Jatinder Jones MD [address] [place] [address] Consulting Physician Cardiology 12/21/24 Miscellaneous, Not In File 12/21/24 documented as of this encounter
--- OUTSIDE RECORDS SUMMARY | 2025-05-24 08:25 | XMS_ITS | Encounter Summary ---
Author Organization [facility] Address [address] [place] [address] Care Team Providers Care Front Of House Manager Name Role Phone Syl Mcadams MD Primary Care Provider [phone] Maryann Jiménez DO Primary Care Provider [phone] Reason for Visit * Reason Onset Date Comments MEDICATION REFILL 08/21/2018 Encounter Details Date Type Department Care Team (Late st Contact Info) Description 08/21/2018 Refill [facility] [address] [place] [address] April Mendoza MD [address] [place] [address] MEDICATION REFILL Social History Tobacco Use Types Packs/Day Years Used Date Smoking Tobacco: Passive Smo ke Exposure - Never Smoker Smokeless Tobacco: Never Sex and Gender Information Value Date Recorded Sex Assigned at Not on file 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
--- OUTSIDE RECORDS SUMMARY | 2025-05-24 08:25 | XMS_ITS | Encounter Summary ---
Author Organization [facility] Health Address [address] [place] [address] Care Team Providers Care Clerical Assigner Name Role Phone Unknown, Provider Primary Care Provider Unavaila ble Chai Giraldo MD Primary Care Provider [phone] Syl Mcadams MD Primary Care Provider [phone] Maryann Jiménez DO Primary Care Provider [phone] Encounter Details Date Type Department Care Team (Late st Contact Info) Description 01/02/2010 [facility] Visit [facility]NAL [facility] DEPT Liliana Owens MD [address] [facility] [address] [place] [address] Social History Tobacco Use Types Packs/Day Years Used Date Smoking Tobacco: Never Assessed Sex and Gender Information Value Date Recorded Sex Assigned at Not on file Legal Sex Male 6:48 AM [employer] Gender Identity Not on file Sexual Orientation Not on file documented as of this encounter Plan of Treatment Not on file documented as of this encounter Visit Diagnoses Not on filedocumented in this encounter Care Teams Clerical Assigner Relationship Specialty Start Date End Date Unknown, Provider PCP - General 02/27/10 01/19/14 Chai Giraldo MD [address] [place] [phone] PCP - General 12/24/17 04/28/18 Syl Mcadams MD [address] [place] [address] PCP - General 04/29/18 09/06/22 Maryann Jiménez DO [address] [facility] [address] [address] [place] [id number] PCP - General 09/07/22 documented as of this encounter
--- OUTSIDE RECORDS SUMMARY | 2025-05-24 08:25 | XMS_ITS | Clinical Summary ---
Author Organization [facility] Address [facility] [place] [address] Care Team Providers Care Homeworker Name Role Phone Maryann Jiménez DO Primary Care Provider + Jose David Betancourt MD Unavailable [phone] Ty Lamb MD Unavailable [phone] Jatinder Jones MD Unavailable [phone] Miscellaneous, Not In File Unavailable Unava ilable Allergies Active Allergy Reactions Criticality Noted Date Comments Atropine Palpitations Low 01/02/2010 Patient states that it causes heartrate to decrease, not increase. Meloxicam Dizziness Low 11/13/2023 Oxycodone Mental status changes Low 07/11/2023 Medications omeprazole (PriLOSEC) 40 mg capsuleIndicati ons:Stress Ulcer Prophylaxis Take 1 capsule by mouth every morning Active atorvastatin (LIPITOR) 40 mg tabletIndicatio ns:arterioscler otic vascular disease Take 1 tablet by mouth every other day At night 022 Active BD Lyudmila 2nd Gen Pen Needle 32 gauge x 5/32 needleIndicatio ns:diabetes 024 Active aspirin 81 mg enteric coated tabletIndicatio ns:Myocardial Reinfarction Prevention Take 1 tablet by mouth every morning Active finasteride (PROSCAR) 5 mg tabletIndicatio ns:benign prostatic hyperplasia with lower urinary tract sx Take 1 tablet by mouth every morning Active levothyroxine (SYNTHROID) 100 mcg tabletIndicatio ns:hypothyroidi sm Take 1 tablet by 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 breakfast Active alcohol swabs pads, medicatedIndica tions:diabetes Active cyanocobalamin (Vitamin B-12) 500 mcg tabletIndicatio ns:Prevention of Vitamin B12 Deficiency Take 1 tablet by mouth daily Active cholecalciferol (VITAMIN D-3) 5,000 unit capsuleIndicati ons:Vitamin D Deficiency Take 1 capsule by mouth daily Active acetaminophen 500 mg capsuleIndicati ons:Pain,1st line for pain Take 2 capsules (1,000 mg total) by mouth every 6 (six) hours as needed for pain 025 Active traMADoL (ULTRAM) 50 mg tabletIndicatio ns:Pain,2nd line for pain Take 1 tablet (50 mg total) by mouth every 8 (eight) hours as needed for pain 10 tablet 025 Active traZODone (DESYREL) 50 mg tabletIndicatio ns:insomnia Take 1 tablet (50 mg total) by mouth nightly as needed for sleep 30 tablet 025 Active clopidogreL (PLAVIX) 75 mg tabletIndicatio ns:Acute Coronary Syndrome,Thromb osis Prevention after PCI Take 1 tablet (75 mg total) by mouth daily 90 tablet 025 Active TRESIBA 100 unit/mL (3 mL) pen for injectionIndica tions:type 2 diabetes mellitus INJECT 20 UNITS UNDER THE SKIN NIGHTLY 15 mL 3 025 Active EnbreL SureClick 50 mg/mL (1 mL) pen injectorIndicat ions:Psoriatic Arthritis INJECT 50 MG (1 ML) UNDER THE SKIN EVERY 7 DAYS 8 mL 3 025 Active benzonatate (TESSALON) 100 mg capsuleIndicati ons:Cough Take 1 capsule (100 mg total) by mouth 3 (three) times a day as needed for cough 30 capsule 025 Active lidocaine (ASPERCREME) 4 % adhesive patch,medicated Indications:Pos therpetic Neuralgia Place 2 patches on the skin daily for 12 hours As needed for back pain 30 patch 025 Active losartan (COZAAR) 25 mg tabletIndicatio ns:chronic heart failure Take 0.5 tablets (12.5 mg total) by mouth daily 15 tablet 025 Active metoprolol tartrate (LOPRESSOR) 25 mg immediate release tabletIndicatio ns:chronic heart failure,hyperte nsion Take 0.5 tablets (12.5 mg total) by mouth 2 (two) times a day 30 tablet 025 Active furosemide (LASIX) 40 mg tabletIndicatio ns:Pulmonary Edema due to Chronic Heart Failure Take 1 tablet (40 mg total) by mouth daily for 14 days 14 tablet 025 Active potassium chloride ER (KLOR-CON) 20 mEq CR tabletIndicatio ns:supplement Take 1 tablet (20 mEq total) by mouth daily for 14 days 14 tablet 025 Active guaiFENesin-cod eine (GUAITUSS AC) liquid 100-10 mg/5 mLIndications:C ough Take 10 mL by mouth every 6 (six) hours as needed for cough 237 mL 025 Active doxycycline (doxycycline hyclate) 100 mg capsuleIndicati ons:Prophylaxis , Medical Take 100 mg by mouth 2 (two) times a day. Indications: Prophylaxis, Medical 025 Active metFORMIN (GLUCOPHAGE) 1,000 mg tablet TAKE 1 TABLET DAILY WITH BREAKFAST 90 tablet 3 025 Active Trulicity 3 mg/0.5 mL pen injectorIndicat ions:Type 2 diabetes mellitus with hyperglycemia, with long-term current use of insulin (HCC) INJECT 0.5 ML (3 MG) UNDER THE SKIN ONCE A WEEK 6 mL 025 Active insulin lispro (HumaLOG, ADMELOG) 100 unit/mL pen for injectionIndica tions:Type 2 diabetes mellitus with hyperglycemia, with long-term current use of insulin (HCC) INJECT 6 TO 12 UNITS UNDER THE SKIN THREE TIMES A DAY BEFORE MEALS. MAXIMUM DAILY DOSE: 36 UNITS 30 mL 025 Active blood-glucose sensor (FreeStyle Brenda 3 Plus Sensor) deviceIndicatio ns:Type 2 diabetes mellitus with hyperglycemia, with long-term current use of insulin (HCC) Change Freestyle Brenda 3 Plus sensor every 15 days as instructed. Sig: Dx code E11.65. 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 6 each 025 Active dulaglutide (Trulicity) 3 mg/0.5 mL pen injectorIndicat ions:type 2 diabetes mellitus Inject 0.5 mL (3 mg total) under the skin once a week 6 mL 2 024 2024 Discontinued insulin lispro (HumaLOG, ADMELOG) 100 unit/mL pen for injectionIndica tions:type 2 diabetes mellitus Inject 6-12 Units under the skin 4 (four) times a day 45 mL 1 025 2024 Discontinued blood-glucose sensor (FreeStyle Brenda 3 Plus Sensor) deviceIndicatio ns:Type 2 diabetes mellitus with hyperglycemia, with long-term current use of insulin ([facility]) Dx code E11.65. T2DM with hyperglycemia with mcc current use of insulin. 3 each 3 025 2024 Discontinued Active Problems Problem Noted Date Diagnosed Date [...] are complete. Avoid live-vaccines unless reviewed with vault attendant first. Overexertion from strenuous movement or load, [...] 08/07/2017 Assessment & Plan (08/17/2024 11:11 AM VEST FINISHER): Chronic, worsening. 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 Arthralgia of shoulder [...] Encounters Date Type Department Care Team Description 05/20/2025 Telephone [facility] [address] [place] [phone] Alireza Clark MD [employer] 05/18/2025 Telephone [facility] [address] [place] [address] Floor [address] [place] [address] Shannan Smith RMA Scheduling Testing/Treatment 05/10/2025 1:00 PM CDT Lab [facility] [address] [place] [address] Floor [address] [place] [address] 05/10/2025 Documentation [facility] [address] [place] [address] Floor [address] [place] [address] Ayesha Vizcaino Brenna 04/30/2025 Telephone [facility] [address] [place] [address] Floor [address] [place] [address] Ayesha Vizcaino, Brenna 04/30/2025 Orders Only [facility] [address] [place] [address] Floor [address] [place] [address] Corey Lowery MD Memory loss (Primary Dx) 04/30/2025 Documentation [facility] [address] [facility] 6th [place] [address] [place] [address] Corey Lowery MD 04/29/2025 Documentation [facility] [address] [facility] 6th [place] [address] [place] [phone] Corey Lowery MD 04/19/2025 Telephone [facility] First Floor [address] [place] [phone] Shannan Smith Ofelia, RMA Test Results 04/19/2025 Documentation [facility] Advanced [facility] 6th [place] [address] [place] [address] Corey Lowery MD 04/15/2025 10:15 AM CDT Office Visit [facility] [address] [facility] [address] [place] [address] Alireza Clark MD Type 2 diabetes mellitus with hyperglycemia, with long-term current use of insulin (HCC) (Primary Dx) 04/14/2025 Orders Only [facility] [address] [place] [address] [place] [address] [place] [phone] Corey Lowery MD Memory loss (Primary Dx) 04/13/2025 Documentation [facility] Floor [address] [place] [phone] Min Noel LCSW Care Consultation (See note. PEACE Pace) 04/13/2025 Telephone [facility] [address] [place] [address] Floor [address] [place] [phone] Min Noel LCSW 04/12/2025 12:56 PM CDT - 04/12/2025 11:59 PM CDT Hospital Encounter [facility] [address] [place] [address] Corey Lowery MD Encounter for medical screening examination Discharge Disposition: Discharge to home or self care 04/12/2025 Documentation [facility] Medicine 6th [place] [address] [place] [address] Corey Lowery MD 04/06/2025 Orders Only [facility] [address] [facility] [address] [place] [phone] Juany Teague MD 04/06/2025 Telephone [facility] [address] [facility] First Floor [address] [place] [address] Ayesha Vizcaino RMA 04/06/2025 Orders Only [facility] [address] [facility] 6th Floor [address] [place] [phone] Corey Lowery MD Encounter for medical screening examination (Primary Dx) 04/05/2025 Telephone [facility] [address] [facility] First Floor [address] [place] [phone] Min Noel LCSW 04/02/2025 10:00 AM CDT Office Visit [facility] [address] [facility] 6th [place] [address] [place] [phone] Corey Lowery MD Memory loss 04/02/2025 Telephone [facility] 4th Floor [address] [place] [address] Tammy Reynolds Communication 03/31/2025 Telephone [facility] [place] [address] [facility] 6th [place] [address] [place] [phone] Yevgeniy Odell 03/29/2025 Telephone [facility] [address] [facility] [address] [place] [address] Nestor Bruno 03/26/2025 6:50 AM CDT [address] [address] Memory loss; Encounter for medical screening examination 03/25/2025 3:15 PM CDT Office Visit [facility] [address] [facility] [address] [place] [address] Juany Teague MD Memory loss (Primary Dx); Encounter for medical screening examination from Last 3 Months Immunizations Immunization Administration [...] 1986 TIA Cataract Palpitations Pacemaker pacemaker in mee ce, but does not work, per patient [...] materials from doctor or pharmacy Never 01/27/2025 [facility] Utilities Answer Date Recorded In the past 12 months has th e [employer], oil, or water [employer] threatened to shut off services in your [...] week 01/11/2025 How often do you attend [facility] or restorationism services? More than 4 times per year [...] staff should administer the PHQ-9) 0 08/17/2024 [facility] - Occupational [...] in the past [address] [facility], were you homeless or living in a snf (including now)? No 01/11/2025 Personal Safety Answer Date Recorded Have you ever been in or are you currently in a harmful physical or emotional relationship or is someone making you feel afraid or unsafe? 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 Male 3:55 AM VEST FINISHER Gender Identity Male 01/23/2020 12:25 AM CDT Sexual Orientation Straight 01/23/2020 12 :25 AM CDT Obstetrics History Last Filed Vital Signs Vital Sign Reading Time Taken Comments Blood Pressure 110/62 04/15/2025 10:16 AM CDT Pulse 64 04/15/2025 10:16 AM CDT Temperature 36.8 C (98.3 F) 03/25/2025 3:29 PM CDT Respiratory Rate 14 04/15/2025 10:16 AM CDT Oxygen Saturation 99% 03/25/2025 3:29 PM CDT Inhaled Oxygen Concentration - - Weight 88.3 kg (194 lb 9.6 oz) 04/15/2025 10:16 AM CDT Height 172.7 cm (5' 8) 04/15/2025 10:16 AM CDT Body Mass Index 29.59 04/15/2025 10:16 AM CDT Plan of Treatment Health Maintenance Due Date Last Done Comments Colon Cancer Screening-Colonoscopy 1950 Hepatitis C Screening 1950 Dilated Eye Exam 1950 Foot Exam 1950 Hepatitis B Screening 1968 Zoster Vaccine (1 of 2) 2000 Abdominal Aortic Aneurysm (A AA) Screen 2015 Well Visit 65+ 2015 DTaP/Tdap/Td Vaccine (2 - Td or Tdap) 12/01/2024 12/01/2014, 09/21/2005 Albumin Creatinine Ratio, Urine 04/01/2025 Lipid Panel 04/01/2025 04/01/2024, 12/31, 11/29/2021, Additional history exists Covid-19 Vaccine (4 - 2024-2 6 season) 2025 08/10/2022, 05/16/2021, 04/25/2021 Influenza Vaccine (#1) 2025 4, 06/08/2022, 06/07/2022, Additional history exists Depression Screening 08/17/2025 08/17/2024, 01/05/2022, 02/10/2020, Additional history exists Hemoglobin A1C 10/16/2025 04/15/2025, 12/01, 08/17/2024, Additional history exists Fall Risk Assessment 01/11/2026 01/11/2025, 08/17/2024, 01/05/2022 eGFR 01/11/2026 01/11/2025, 12/31, 01/10/2025, Additional history exists Pneumococcal vaccine 65+ Completed 020, 05/25/2016, 04/23/2016, Additional history exists Goals Goal Patient Goal Type Associated Problems Recent Progress Patient-Stated? Author [facility] Worsening(01/2021 2:46 PM CDT) Flor Guzman, RN Note: Play golf with minimal to no relief. Medical Devices Implanted Type Area Auto Inspector Device Identifier Shelf Expiration Date Model / Serial / Lot Medtronic Rv Lead 4011-58-09/02/18 89 Implanted:09/1988 (Quantity not on file) Lead Heart Medtronic Cardiac Rhythm Mgmt 4011-58 / [id number] / [employer] Active Fixation Steroid Eluting Latex Free Sterile Right Atrium Ventricle Ultipace 58cm [id number] - [id number] - [id number] Implanted:Qty: 1 on 01/08/2025 by Ty Lamb MD at [facility] Lead Left: Chest [employer] [id number] 09/01/2027 KFR6399/58 / [id number] / [employer] Active Fixation Steroid Eluting Latex Free Sterile Right Atrium Ventricle Ultipace 52cm Beb8652/52 - [id number] - [id number] Implanted:Qty: 1 on 01/08/2025 by Ty Lamb MD at [facility] Lead Left: Chest [employer] [id number] 10/31/2027 [id number]/52 / [id number] / [employer] Assurity Mri 71b77on 2 Chamber Is-1 Connector Thk6mm Pacemaker [id number] - [id number] - [id number] Implanted:Qty: 1 on 01/08/2025 by Ty Lamb MD at [facility] Pacemaker Left: Chest [employer] [id number] 06/01/2026 [id number] / [id number] / [employer] Liyah Ams 700 Kit Accessory Penile Prosthesis [id number] - [id number] Implanted:Qty: 1 on 06/18/2024 by Jose David Betancourt MD at [facility] N/A: Groin [employer] Liyah [id number] 04/08/2029 [id number] / / [id number] [employer] Liyah Ams Spectra 12/14mm .5cm Cylinder Concealable Malleable Rear Tip [id number] - [id number] Implanted:Qty: 1 on 06/18/2024 by Jose David Betancourt MD at [facility] N/A: Penis [employer] Liyah [id number] 02/15/2029 [id number] / / [id number] [employer] Liyah Ams 700 Preconnect 1 Ms Pump 2 Cylinder Penoscrotal Prosthesis [id number] - [id number] Implanted:Qty: 1 on 06/18/2024 by Jose David Betancourt MD at [facility] N/A: Penis [employer] Liyah [id number] 10/13/2025 [id number] / / [id number] [employer] Liyah Conceal Low Profile Declo 100ml Prosthesis Inhibizone Sterile Latex Free [id number] - [id number] Implanted:Qty: 1 on 06/18/2024 by Jose David Betancourt MD at [facility] Left: Pelvis [employer] Liyah [id number] 04/22/2026 233242-49 / / [id number] Procedures Procedure Name Priority Date/Time Associated Diagnosis Comments POCT GLUCOSE Routine 04/15/2025 10:18 AM CDT Type 2 diabetes mellitus with hyperglycemia, with long-term current use of insulin (HCC) POCT HEMOGLOBIN A1C Routine 04/15/2025 1 0:18 AM CDT Type 2 diabetes mellitus with hyperglycemia, with long-term current use of insulin (HCC) CT HEAD W WO CONTRAST Schedule Routine, [...] loss EGFR Routine 01/11/2025 9:11 AM CDT LIPID PANEL Routine 04/01/2024 11:09 AM CDT Type 2 diabetes mellitus with hyperglycemia, with long-term current use of insulin (HCC) ALBUMIN CREATININE RATIO, URINE Routine 04/01/2024 11:09 AM CDT Type 2 diabetes mellitus with hyperglycemia, with long-term current use of insulin (HCC) from Last 3 Months or Most Recently Relevant to Health Maintenance Results * (ABNORMAL) POCT hemoglobin A1c (04/15/2025 10:18 AM CDT) Hemoglobin A1C, POC 10.0(A) 4.0 - 5.6 % Comment:None Capillary blood 04/15/2025 1 0:18 AM CDT us Alireza Clark MD POINT OF CARE TEST ORDERABLES Fi nal Result * (ABNORMAL) POCT glucose (04/15/2025 10:18 AM CDT) Pathologist [facility] Glucose Blood, POC 367 Normal Fasting 70 - 100, Random <200 mg/dL Comment:None Blood 04/15/2025 10:1 8 AM CDT us Alireza Clark MD POINT OF CARE TEST ORDERABLES Fi nal Result * CT Head W WO Contrast (04/12/2025 [...] Lowery MD IMG CT PROCEDURES Final Result * WEI ab [...] revised on 2020. Testing performed by: [facility], [address] [place] [address]., [address] Blood 03/26/2025 6:55 AM CDT 03/26/2025 9:56 AM CDT Juany Teague MD LAB BLOOD ORDERABLES F inal Result [facility] ([facility]) [address] [place] [address] [place] [address] * HIV 1/2 Antibody plus p24 Antigen Blood (03/26/2025 6:55 AM CDT) HIV 1/2 ab + p24 ag Nonreactive Nonreactive Comment: Nonreactive for HIV-1 antigen and HIV-1/HIV-2 antibodies. No laboratory evidence of HIV infection. If acute HIV infection is suspected, consider testing for HIV-1 RNA. Testing performed by: [facility], [address] [place] [address]., [address] Blood 03/26/2025 6:55 AM CDT 03/26/2025 9:20 AM CDT Juany Teague MD LAB MICROBIOLOGY - GEN ERAL ORDERABLES Final Result [facility] ([place]) [address] [facility] [place] [address] * Methylmalonic acid, serum (03/26/2025 6:55 AM CDT) Pathologist [facility] MMA 0.13 <=0.40 nmol/mL [facility] ref Lab Comment: ADDITIONAL INFORMATION This test was developed and its performance characteristics determined by [facility] in a manner consistent with CLIA requirements. This test has not been cleared or approved by the U.S. Food and Drug Administration. Test Performed by: [address] [address] [employer]ort Furnace Helper: Ladonna Roberts Ph.D.; CLIA# [id number] Blood 03/26/2025 6:55 AM CDT 03/26/2025 7:09 AM CDT Juany Teague MD LAB BLOOD ORDERABLES F inal Result Performing Organization Address City/[facility]/ZIP Co de Phone Number [facility] ([place]) [address] [place] [address] [place] [address] [facility] ref Lab * RPR Blood (03/26/2025 6:55 AM CDT) [facility] RPR Nonreactive Nonreactive Comment:Testing performed by : [facility], [address] [place] [address], [address] Blood 03/26/2025 6:55 AM CDT 03/26/2025 9:20 AM CDT Juany Teageu MD LAB MICROBIOLOGY - GEN ERAL ORDERABLES Final Result [facility] ([place]) [address] [facility] [place] [address] * Vitamin B1 (03/26/2025 6:55 AM CDT) [facility] Thiamine (Vit B1) 107 70 - 180 nmol/L [facility] ref Lab Comment: ADDITIONAL INFORMATION This test was developed and its performance characteristics determined by [facility] in a manner consistent with CLIA requirements. This test has not been cleared or approved by the U.S. Food and Drug Administration. Test Performed by: [facility] [place] [address] Retort Furnace Helper: Ladonna Roberts Ph.D.; CLIA# [id number] Blood 03/26/2025 6:55 AM CDT 03/26/2025 7:09 AM CDT Juany Teague MD LAB BLOOD ORDERABLES F inal Result Performing Organization Address [facility]/ZIP Co de Phone Number [facility] ([place]) [address] [facility] [place] [address] [facility] ref Lab * Vitamin B6 (03/26/2025 6:55 AM CDT) [facility] Pyridoxal phosphate (Vit B6) 5 5 - 50 mcg/L [facility] ref Lab Comment: ADDITIONAL INFORMATION This test was developed and its performance characteristics determined by [facility] in a manner consistent with CLIA requirements. This test has not been cleared or approved by the U.S. Food and Drug Administration. Test Performed by: [facility] - [address] [address] [employer] Furn[employer] Helper: Ladonna Roberts Ph.D.; CLIA# [id number] Blood 03/26/2025 6:55 AM CDT 03/26/2025 7:09 AM CDT Juany Teague MD LAB BLOOD ORDERABLES F inal Result Performing Organization Address City/[facility]/ZIP Co de Phone Number [facility] ([place]) [address] [facility] [employer] [place] [address] [facility] ref Lab * Homocysteine (03/26/2025 6:55 AM CDT) Pathologist [facility] Homocysteine 10.0 7.3 - 16.3 nmol/mL [facility] Lab Comment: ADDITIONAL INFORMATION Liquid Chromatography-Tandem Mass Spectrometry (LC-MS/MS) This test was developed and its performance characteristics determined by [facility] in a manner consistent with CLIA requirements. This test has not been cleared or approved by the U.S. Food and Drug Administration. Test Performed by: [place] [address] [employer] Furnace Helper: Ladonna Roberts Ph.D.; CLIA# [id number] Blood 03/26/2025 6:55 AM CDT 03/26/2025 7:09 AM CDT Juany Teague MD LAB BLOOD ORDERABLES F inal Result Performing Organization Address City/[facility]/ZIP Co de Phone Number [facility] ([place]) [address] [facility] [employer] [place] [address] [facility] Lab * Folate (03/26/2025 6:55 AM CDT) Pathologist [facility] Folic acid 14.5 >=5.0 ng/mL [facility] ([facility]) Blood 03/26/2025 6:55 AM CDT 03/26/2025 7:10 AM CDT Juany Teague MD LAB BLOOD ORDERABLES F inal Result [facility] ([place]) 1 [facility] [employer] [place] [address] * Vitamin B12 (03/26/2025 6:55 AM CDT) Pathologist [facility] Vitamin B12 634 230 - 1,250 pg/mL [facility] ([facility]) Blood 03/26/2025 6:55 AM CDT 03/26/2025 7:10 AM CDT us Juany Teague MD LAB BLOOD ORDERABLES F inal Result Performing Organization Address City/[facility]/ZIP Co de Phone Number [facility] ([place]) [address] [facility] Department [place] [address] * eGFR (01/11/2025 9:11 AM CDT) eGFR [...] BLOOD ORDERABLES Final R esult [facility] [address] [place] [address] * (ABNORMAL) Albumin Creatinine Ratio, Urine (04/01/2024 11:09 AM CDT) Albumin Ur 19.5 mg/L Comment: Interpretive Data No reference range established. Current interpretive data was last revised 2019. Creatinine Ur 60.3 mg/dL [facility] Comment: Interpretive Data No reference range established. Current interpretive data was last revised 2019. Albumin Creatinine Ratio, Ur 32(H) 1 - 29 mg/g [facility] [place] Urine 04/01/2024 11:0 9 AM CDT 04/01/2024 5:29 PM CDT us Alireza Clark MD LAB URINE ORDERABLES Final Resul t [facility] [address] [place] [address] * (ABNORMAL) Lipid panel (04/01/2024 11:09 AM [...] revised on 2018. Triglycerides 117 <=149 mg/dL [facility] Comment: Interpretive Data Ages < or = [...] BLOOD ORDERABLES Final Resul t [facility] [address] [place] [address] from Last 3 Months or Most Recently Relevant to Health Maintenance Insurance MEDICARE FOR LIFE [facility] MEDICARE ADVANTAGE [facility] MEDICARE ADVANTAGE Advance Directives For more information, please contact: [phone] * Full Code (Latest Code Status on File) Date Activated Date Inactivated Comments 01/07/2025 1:12 PM 01/11/2025 11:13 PM * Full Code Date Activated Date Inactivated Comments 12/14/2024 5:54 PM 12/21/2024 8:28 PM * Full Code Date Activated Date Inactivated Comments 06/18/2024 3:52 PM 06/19/2024 10:57 PM * Full Code Date Activated Date Inactivated Comments 02/11/2024 3:49 PM 02/12/2024 6:22 PM Care Teams Homeworker Relationship Specialty Start Date End Date Maryann Jiménez DO [place] PCP - General Family Medicine 07/03/22 Jose David Betancourt MD [address] [facility] [address] [place] [address] Consulting Physician Urology 06/19/24 Ty Lamb MD [address] [facility] [address] [place] [address] Surgeon Cardiothoracic Surgery 12/21/24 Jatinder Jones MD [address] [place] [address] Consulting Physician Cardiology 12/21/24 Miscellaneous, Not In File 12/21/24
--- OUTSIDE RECORDS SUMMARY | 2025-05-24 08:25 | XMS_ITS | Encounter Summary ---
Author Organization [facility] Healthcare Address [address] [place] [address] Care Team Providers Care Instrument Installer Name Role Phone Maryann Jiménez DO Primary Care Provider + Jose David Betancourt MD Unavailable [phone] Ty Lamb MD Unavailable [phone] Jatinder Jones MD Unavailable [phone] Miscellaneous, Not In File Unavailable Unava ilable Encounter Details Date Type Department Care Team (Late st Contact Info) Description 01/05/2025 [facility] Post Discharge Follow up phone call [place] [id number] [place] [address] Ariella Larsen Social History Tobacco [...] doctor or pharmacy Never 12/23/2024 [facility] Utilities Answer Date Recorded In the past [...] often do you attend chur ch or advent services? More than 4 times per year 12/17/2024 Do you belong to any clubs o r organizations such as episcopal groups, unions, fraternal or athletic groups, or [...] staff should administer the PHQ-9) 0 08/17/2024 [facility] of Occupat ional Health - Occupational Stress [...] living in a alf (including now)? No 12/17/2024 Personal Safety Answer Date Recorded Have you ever been in or are you currently in a harmful physical or emotional relationship or is someone making you feel afraid or unsafe? 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 Gender Identity Male 01/23/2020 12:25 AM CDT [...] documented as of this encounter Care Teams Instrument Installer Relationship Specialty Start Date End Date Maryann Jiménez DO PCP - General Family Medicine 07/03/22 Jose David Betancourt MD [address] [place] [address] Consulting Physician Urology 06/19/24 Ty Lamb MD [address] [place] [address] Surgeon Cardiothoracic Surgery 12/21/24 Jatinder Jones MD [address] [facility] [address] [facility] [address] [place] [address] Consulting Physician Cardiology 12/21/24 Miscellaneous, Not In File 12/21/24 documented as of this encounter
--- OUTSIDE RECORDS SUMMARY | 2025-05-24 08:25 | XMS_ITS | Encounter Summary ---
Author Organization [facility] Health Address [address] [facility] [place] [address] Care Team Providers Care Databases Computer Consultant Name Role Phone Unknown, Provider Primary Care Provider Unavaila ble Chai Giraldo MD Primary Care Provider [phone] Syl Mcadams MD Primary Care Provider Maryann Jiménez DO Primary Care Provider [phone] Encounter Details Date Type Department Care Team (Late st Contact Info) Description 03/03/2012 [facility] Liliana Owens MD [address] [facility] [address] [place] [address] Social History Tobacco Use Types Packs/Day Years Used Date Smoking Tobacco: Never Assessed Sex and Gender Information Value Date Recorded Sex Assigned at Not on file Legal 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 Gender Identity Not on file Sexual Orientation Not on file documented as of this encounter Plan of Treatment Not on file documented as of this encounter Visit Diagnoses Not on filedocumented in this encounter Care Teams Databases Computer Consultant Relationship Specialty Start Date End Date Unknown, Provider PCP - General 02/27/10 01/19/14 Chai Giraldo MD [address] [place] [phone] PCP - General 12/24/17 04/28/18 Syl Mcadams MD [address] [place] [address] PCP - General 04/29/18 09/06/22 Maryann Jiménez DO [address] [facility] [address] [place] [address] PCP - General 09/07/22 documented as of this encounter
--- OUTSIDE RECORDS SUMMARY | 2025-05-24 08:25 | XMS_ITS | Clinical Summary ---
Author Organization [facility] Address [address] [place] [address] Care Team Providers Care Leaf Tinner Name Role Phone Maryann Jiménez DO Primary Care Provider [phone] Source Comments [facility]non-owned Affiliates and Associated Physician Practices is amultiple site organization consisting of ambulatory clinics and hospital sitesin [place], [place], [place] and [place]. This disclosure is being madepursuant to the Care Everywhere program and may not contain all information available regarding this patient. Last updated 18.[facility] 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 SPECIALIST Gender Identity Not on file Sexual Orientation Not on file Last Filed Vital Signs Vital Sign Reading Time Taken Comments Blood Pressure 116/62 12/20/2020 11:23 AM CDT Pulse 72 12/20/2020 11:23 AM CDT Temperature 36.3 C (97.3 F) 12/20/2020 11:23 AM CDT Respiratory Rate 16 05/14/2017 2:25 PM CDT Oxygen Saturation 95% 09/28/2014 12:31 PM SURVIVAL SPECIALIST Inhaled Oxygen Concentration - - Weight [...] CREATININE 12/21/20212020, 04/19/2020, 12/16/2018, Additional history exists DEPRESSION SCREENING 09/02/2024 DIABETES - URINE PROTEIN SCREENING 09/02/2024 MEDICARE AWV CALENDAR YEAR 2024 COVID-19 VACCINE ( - season) 2025 INFLUENZA VACCINE (#1) 2025 05/25/2016 HEPATITIS B [...] approximately 13% higher for people identified as -Guyanese. eGFR by MDRD 82 > OR = [...] 46 U/L [facility] Comment: Test Performed at: [facility] [place] [address] [place] [address] IVY DERAS DO,MPH Blood BLOOD SPECIMEN / Unknown 12/21/2020 11:20 AM CDT 12/21/2020 11:21 AM CDT Nico Jones MD LAB - CHEMISTRY ORDERABLES F inal Result [facility] [address] [place] [address] from Last 3 Months or Most Recently Relevant to Health Maintenance Insurance [employer] MEDICARE [facility] MANAGED MEDICARE ADV MEDICARE [facility] MANAGED MEDICARE ADV [facility] MANAGED MEDICARE ADV [facility] MANAGED MEDICARE ADV Care Teams Leaf Tinner Relationship Specialty Start Date End Date Maryann Jiménez DO [address] [facility] [address] [place] [address] PCP - General 09/07/22
--- OUTSIDE RECORDS SUMMARY | 2025-05-24 08:25 | XMS_ITS | Encounter Summary ---
Author Organization [facility] Healthcare Address [address] [place] [address] Care Team Providers Care Roving Can Tender Name Role Phone Maryann Jiménez DO Primary Care Provider + Jose David Betancourt MD Unavailable [phone] Ty Lamb MD Unavailable [phone] Jatinder Jones MD Unavailable [phone] Miscellaneous, Not In File Unavailable Unava ilable Encounter Details Date Type Department Care Team (Late st Contact Info) Description 11/16/2024 Orders Only [facility] [place] Information Management [address] [place] [address] Scanning, Provider Social History Tobacco Use Types Packs/Day Years Used Date Smoking Tobacco: Former Cigarettes Q uit: 04/28/1983 Smokeless Tobacco: Never Comments:quite smoking 1982 Alcohol Use Standard Drinks/Week Comments Yes 0 (1 standard drink = 0.6 oz pur e alcohol) [facility] Utilities Answer Date Recorded In the past 12 months has [employer], gas, oil, or water [employer] threatened to shut off services in [...] week 02/12/2024 How often do you attend [facility] or mandaen services? 1 to 4 times per year 02/12/2024 Do you belong to any clubs o r organizations such as latter day groups, unions, fraternal or athletic groups, or [...] any time in the past 12 m [facility], were you homeless or living in a care home (including now)? No 02/12/2024 Personal Safety Answer Date Recorded Have you ever been in or are you currently in a harmful physical or emotional relationship or is someone making you feel afraid or unsafe? 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 Gender Identity Male 01/23/2020 12:25 AM CDT [...] documented as of this encounter Care Teams Roving Can Tender Relationship Specialty Start Date End Date Maryann Jiménez DO PCP - General Family Medicine 07/03/22 Jose David Betancourt MD [address] [address] Consulting Physician Urology 06/19/24 Ty Lamb MD [address] [facility] [address] [place] [address] Surgeon Cardiothoracic Surgery 12/21/24 Jatinder Jones MD [address] [place] [address] Consulting Physician Cardiology 12/21/24 Miscellaneous, Not In File 12/21/24 documented as of this encounter
--- OUTSIDE RECORDS SUMMARY | 2025-05-24 08:25 | XMS_ITS | Encounter Summary ---
Author Organization [facility] Address [address] [facility] [address] [place] [address] Care Team Providers Care Mailhouse Operator Name Role Phone Syl Mcadams MD Primary Care Provider [phone] Syl Mcadams MD Primary Care Provider [phone] Miscellaneous, Not In File Primary Care Provider Unavailable Syl Mcadams MD Primary Care Provider [phone] Maryann Jiménez DO Primary Care Provider + Jose David Betancourt MD Unavailable [phone] Ty Lamb MD Unavailable [phone] Jatinder Jones MD Unavailable [phone] Miscellaneous, Not In File Unavailable Unava ilable Encounter Details Date Type Department Care Team (Late st Contact Info) Description 10/29/2016 Orders Only [facility] Provider, MD [address] [place] [address] Social History Tobacco Use Types Packs/Day Years Used Date Smoking Tobacco: Former Alcohol Use Standard Drinks/Week Comments Yes 0 (1 standard drink = 0.6 oz pur e alcohol) Sex and Gender Information Value Date Recorded Sex Assigned at Not on file Legal 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 Gender Identity Male 01/23/2020 12:25 AM [...] documented as of this encounter Care Teams Mailhouse Operator Relationship Specialty Start Date End Date Syl Mcadams MD [address] [place] [address] PCP - General 11/30/16 01/21/17 Syl Mcadams MD [address] [place] [address] PCP - General 07/14/13 11/29/16 Miscellaneous, Not In File PCP - General 01/22/17 02/04/17 Syl Mcadams MD [address] [place] [address] PCP - General 02/05/17 07/02/22 Maryann Jiménez DO PCP - General Family Medicine 07/03/22 Jose David Betancourt MD [address] [facility] [address] [place] [address] Consulting Physician Urology 06/19/24 Ty Lamb MD [address] [facility] [address] [place] [address] Surgeon Cardiothoracic Surgery 12/21/24 Jatinder Jones MD [address] [facility] [address] [place] [address] Consulting Physician Cardiology 12/21/24 Miscellaneous, Not In File 12/21/24 documented as of this encounter
--- NOTE | 2025-05-27 07:20 | WPDSLEEPSTUD ---
Sleep Study Date of Study: 05/24/2025 Ordering Provider: Maryann Jiménez DO Interpreting Physician: Maryann Jiménez DO Sleep Study Type: CPAP Titration Reason for Sleep Study The patient had a polysomnogram on 03/23/2025 that showed an overall AHI of 59.4, central apnea index of 39.4 and Serafin Mclaughlin respirations. Sleep History Ced Mccracken is a 74-year-old man with coronary artery disease, recovering from bypass surgery. He uses oxygen at night. He has obstructive sleep apnea, has had difficulty tolerating CPAP. He occasionally awakens from sleep feeling short of breath. He rarely wakes at night with heartburn, belching or coughing.??He frequently snores, and frequently snores loudly enough that others complain. He occasionally has trouble sleeping when he has a cold. He occasionally wakes up gasping for breath during the night. He occasionally has breathing problems at night. He never sweats excessively at night. He rarely notices his heart pounding or beating irregularly during the night. He rarely falls asleep during the day. He rarely falls asleep involuntarily, never falls asleep while driving. He never experiences loss of muscle tone with strong emotion. He never has daytime difficulty at work due to excessive sleepiness. He never feels paralyzed on waking or falling asleep. He rarely experiences vivid dreams upon waking or falling asleep. He rarely feels afraid of going to sleep. He rarely has nightmares. He rarely recalls his dreams. He rarely has thoughts racing through his mind. He rarely feels sad or depressed. He rarely feels anxiety. He rarely notices parts of his body jerk. He rarely kicks during the night. He never feels crawling or aching feelings in his legs. He rarely feels leg pain at night. He never has morning jaw pain, rarely grinds his teeth at night. He never feels bothered by pain during the day, never awakened by pain during the night. He rarely wakes up feeling stiff in the morning, and he rarely wakes feeling sore or achy. He rarely awakens with pain in his neck, spine, or joints. He has fatigue, insomnia, nightmares and tremors. Normal bedtime is between 9:00 p.m. and 10:00 p.m., falling asleep within 1-4 hours, waking between 2 and 3 times during the night. When he awakens at night, he may stay awake for 1 hour. Wake time is 8:00 a.m.. He typically gets between 8 and 10 hours of sleep per night. He keeps a similar schedule on weekends. He takes naps in the day, however he does not feel refreshed after a short 10-15 minute nap. He is usually drowsy for 1 hour after waking. He feels better in the morning compared to other times of day. Habits:??Tobacco: former smoker Caffeine: 1 serving daily Alcohol: none Recreational substances: none PMF Past Medical History Medical History Mixed hyperlipidemia XOCHITL (obstructive sleep apnea) TIA (transient ischemic attack) Colonic mass Hypertension Obesity CAD (coronary artery disease) Umbilical hernia without mention of obstruction or gangrene Symptomatic cholelithiasis Diabetes mellitus Cervical radiculopathy Esophageal reflux Essential (primary) hypertension Hypothyroidism, unspecified Male erectile dysfunction, unspecified Metabolic syndrome Primary generalized (osteo)arthritis Psoriatic arthropathy Type 2 diabetes mellitus with hyperglycemia Cardiac pacemaker Fusion of spine, cervical region Kidney stone Infective otitis externa of left ear History of cardiac monitoring Surgical History Surgical History History of incision and drainage right upper arm Hx of CABG S/P lumbar laminectomy (~02/2024) Status post colon resection S/P laparoscopic colectomy laparoscopic sigmoid colectomy with colorectal anastomosis, da Yolanda assisted History of laparoscopic cholecystectomy 05/10/20 Hx of tonsillectomy Hx of LASIK Hx of LASIK H/O heart artery stent 3 stents 2009 Family History Family History Sibling Acute myocardial infarction Depression Carcinoma of colon Cerebrovascular accident Grandparent Family history of cardiovascular disease Diabetes mellitus Carcinoma of colon, Onset Age: 85 Father Family history of cardiovascular disease Acute myocardial infarction, Onset Age: 72 Hypertension Emphysema of lung Social History Social History Social History: Caffeine-daily Smoking packs per day: 1 Smoking cigarettes per day: 20.0 Years smoked: 9 Smoking pack-years: 9.00 Smoking status: Former smoker Tobacco type: cigarettes Second hand tobacco smoke exposure: No Smoking end date: 09/02/82 Alcohol intake: never Drinks per week: 1 Alcohol use details: Rarely Substance use: never Substance use type: does not use Do You Feel Safe in your Home?: Yes Lack of Transportation: No Lack of Food: Never True Current Housing: I Have Housing Concerned About Future Housing: No Difficulty Paying Gas/Electric Bills: No Difficulty Paying for Meds: No Currently Unemployed: No Education: Master's Degree or Higher Difficulty w/ Childcare or Family Care: No Living arrangements: with family Additional living arrangements comments: DAUGHTER Gender identity (if verbalized by the patient): Male Spiritual care concerns: No Medications Home Medications ?Medication ?Instructions ?Recorded ?Confirmed ?Type aspirin 81 mg tablet,delayed 81 mg PO QAM 08/10/19 05/14/25 History release (Adult Low Dose Aspirin) lancets 28 gauge (FreeStyle #100 ea 11/21/23 05/14/25 Rx Lancets) atorvastatin 40 mg tablet (Lipitor) 40 mg PO .QOD 01/14/25 05/14/25 History cholecalciferol (vitamin D3) 125 125 mcg PO DAILY 01/14/25 05/14/25 History mcg (5,000 unit) capsule cyanocobalamin (vitamin B-12) 500 500 mcg PO DAILY 01/14/25 05/14/25 History mcg tablet dulaglutide 3 mg/0.5 mL 3 mg subcut WEEKLY 01/14/25 05/14/25 History subcutaneous pen injector (Trulicity) insulin degludec 100 unit/mL (3 20 unit subcut QHS 01/14/25 05/14/25 History mL) subcutaneous pen (Tresiba FlexTouch U-100 insulin) insulin lispro 100 unit/mL 1 sliding scale dose subcut 01/14/25 05/14/25 History subcutaneous pen (Humalog KwikPen USEASDIRECTD (U-100) Insulin) finasteride 5 mg tablet 5 mg PO DAILY #90 tabs 02/08/25 05/14/25 Rx levothyroxine 100 mcg tablet 100 mcg PO QAM #90 tabs 02/08/25 05/14/25 Rx (Synthroid) losartan 25 mg tablet 25 mg PO DAILY #90 tabs 02/08/25 05/14/25 Rx metformin 1,000 mg tablet 1,000 mg PO DAILY #90 tabs 02/08/25 05/14/25 Rx metoprolol tartrate 25 mg tablet 12.5 mg (1/2 x 25 mg) PO BID #180 02/08/25 05/14/25 Rx tabs omeprazole 40 mg capsule,delayed 40 mg PO DAILY #90 caps 02/08/25 05/14/25 Rx release pen needle, diabetic 32 gauge x #450 ea 02/08/25 05/14/25 Rx /32 potassium chloride 20 mEq 20 meq PO DAILY #90 tabs 02/08/25 05/14/25 Rx tablet,extended release (K-Tab) clopidogrel 75 mg tablet 75 mg PO DAILY #90 tabs 04/19/25 05/14/25 Rx quetiapine 25 mg tablet (Seroquel) 25 mg PO QHS #30 tabs 04/21/25 05/14/25 Rx eszopiclone 2 mg tablet (Lunesta) 2 mg PO QHS #1 tablet 05/24/25 Rx Sleep Procedure N/A Sleep Architecture N/A Respiratory Analysis N/A Arousals N/A Periodic Limb Movements N/A Oximetry Data N/A Snoring Profile N/A Cardiac Profile N/A EEG Profile N/A Assessment and Plan Assessment and Plan (1) Central sleep apnea: Code(s): G47.31 - Primary central sleep apnea Status: Acute Assessment and Plan: The patient was fitted for a CPAP mask prior to the health record technician initiating sleep study. After trying on the mass, the patient stated that he quit not continue with the sleep study and left to go home. The sleep study was not performed. Data The data obtained during this sleep study is adequate for interpretation. Certification This sleep study did not occur.
== END 2025-05-24 21:00 | disposition home or self-care (01) ==
LOC: ANHCSM 07:57
PROVIDERS: PCP Family Medicine; Visit Provider Family Medicine
DX: G47.31 Primary central sleep apnea (principal)
CPT/HCPCS: 99199

== ENCOUNTER 2025-06-08 07:23 | Outpatient (CLI) | payer MEDICARE, OTHER, SELFPAY ==
--- OUTSIDE RECORDS SUMMARY | 2025-06-08 07:28 | XMS_ITS | Encounter Summary ---
Author Organization [facility] Health Address [address] [place] [address] Care Team Providers Care Customer Quality Engineer Name Role Phone Unknown, Provider Primary Care Provider Unavaila Chai Soriano MD Primary Care Provider [phone] Syl Mcadams MD Primary Care Provider [phone] Maryann Jiménez DO Primary Care Provider [phone] Encounter Details Date Type Department Care Team (Late st Contact Info) Description 03/03/2012 [facility] Liliana Owens MD [address] [facility] [address] [place] [address] Social History Tobacco Use Types Packs/Day Years Used Date Smoking Tobacco: Never Assessed Sex and Gender Information Value Date Recorded Sex Assigned at Not on file Legal Sex 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 Gender Identity Not on file Sexual Orientation Not on file documented as of this encounter Plan of Treatment Not on file documented as of this encounter Visit Diagnoses Not on filedocumented in this encounter Care Teams Customer Quality Engineer Relationship Specialty Start Date End Date Unknown, Provider PCP - General 02/27/10 01/19/14 Chai Giraldo MD [address] [place] [address] PCP - General 12/24/17 04/28/18 Syl Mcadams MD [address] [place] [address] PCP - General 04/29/18 09/06/22 Maryann Jiménez DO [address] [facility] [address] [place] [address] PCP - General 09/07/22 documented as of this encounter
--- OUTSIDE RECORDS SUMMARY | 2025-06-08 07:28 | XMS_ITS | Encounter Summary ---
Author Organization [facility] Health Address [address] [facility] [address] [place] [address] Care Team Providers Care Gas Examiner Name Role Phone Unknown, Provider Primary Care Provider Unavaila ble Chai Giraldo MD Primary Care Provider [phone] Syl Mcadams MD Primary Care Provider Maryann Jiménez DO Primary Care Provider [phone] Encounter Details Date Type Department Care Team (Late st Contact Info) Description 01/02/2010 [facility] Liliana Owens MD [address] [facility] [address] [place] [address] Social History Tobacco Use Types Packs/Day Years Used Date Smoking Tobacco: Never Assessed Sex and Gender Information Value Date Recorded Sex Assigned at Not on file Legal Sex Male 6:48 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 PREVENTION 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 Gender Identity Not on file Sexual Orientation Not on file documented as of this encounter Plan of Treatment Not on file documented as of this encounter Visit Diagnoses Not on filedocumented in this encounter Care Teams Gas Examiner Relationship Specialty Start Date End Date Unknown, Provider PCP - General 02/27/10 01/19/14 Chai Giraldo MD [address] [place] [phone] PCP - General 12/24/17 04/28/18 Syl Mcadams MD 3 [place] [address] PCP - General 04/29/18 09/06/22 Maryann Jiménez DO [address] [facility] [address] [place] [address] PCP - General 09/07/22 documented as of this encounter
--- OUTSIDE RECORDS SUMMARY | 2025-06-08 07:28 | XMS_ITS | Encounter Summary ---
Author Organization [facility] Address [address] [facility] [place] [address] Care Team Providers Care Poultry Processing Supervisor Name Role Phone Syl Mcadams MD Primary Care Provider [phone] Maryann Jiménez DO Primary Care Provider [phone] Reason for Visit * Reason Onset Date Comments MEDICATION REFILL 08/21/2018 Encounter Details Date Type Department Care Team (Late st Contact Info) Description 08/21/2018 Refill [facility] [address] [place] [address] April Mendoza MD [address] [place] [address] MEDICATION REFILL Social History Tobacco Use Types Packs/Day Years Used Date Smoking Tobacco: Passive Smo ke Exposure - Never Smoker Smokeless Tobacco: Never Sex and Gender Information Value Date Recorded Sex Assigned at Not on file Legal Sex Male 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 [address] [place] [phone] PCP - General 09/07/22 documented as of this encounter
--- OUTSIDE RECORDS SUMMARY | 2025-06-08 07:28 | XMS_ITS | Encounter Summary ---
Author Organization [facility] Address [address] [facility] [place] [address] Care Team Providers Care Printed Circuit Boards Laminator Name Role Phone Syl Mcadams MD Primary Care Provider [phone] Maryann Jiménez DO Primary Care Provider [phone] Reason for Visit * Reason Onset Date Comments MEDICATION REFILL 11/08/2020 Encounter Details Date Type Department Care Team (Late st Contact Info) Description 11/08/2020 Refill [facility] [address] [place] [address], [place] [address] Nico Jones MD [address] [place] [address] [place] [address] MEDICATION REFILL Social History Tobacco Use Types Packs/Day Years Used Date Smoking Tobacco: Passive Smo ke Exposure - Never Smoker Smokeless Tobacco: Never Alcohol Use Standard Drinks/Week Comments Yes 0 (1 standard drink = 0.6 oz pur e alcohol) occaisional Sex and Gender Information Value Date Recorded Sex Assigned at Not on file Legal Sex Male 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 Gender Identity Not on file Sexual Orientation [...] 50 (fifty) mg subcutaneously every 7 days E LINING FINISHER ASBESTOS documented in this encounter Plan of Treatment Not on file documented as of this encounter Visit Diagnoses Diagnosis Psoriatic arthritis (HCC)- Primary Psoriatic arthropathy documented in this encounter Care Teams Printed Circuit Boards Laminator Relationship Specialty Start Date End Date Syl Mcadams MD [address] [place] [address] PCP - General 04/29/18 09/06/22 Maryann Jiménez DO [address] [facility] [address] [place] [address] PCP - General 09/07/22 documented as of this encounter
--- OUTSIDE RECORDS SUMMARY | 2025-06-08 07:28 | XMS_ITS | Clinical Summary ---
Author Organization [facility] Address [facility] [place] [address] Care Team Providers Care Development Disability Specialist Name Role Phone Maryann Jiménez DO Primary Care Provider + Jose David Betancourt MD Unavailable [phone] Ty Lamb MD Unavailable [phone] Jatinder Jones MD Unavailable [phone] Miscellaneous, Not In File Unavailable Unava ilable [...] ns:hypothyroidi sm Take 1 tablet by mouth project administrative assistant before breakfast Active alcohol swabs pads, medicatedIndica [...] hyperglycemia with mcfp current use of insulin. 6 each 025 [...] are complete. Avoid live-vaccines unless reviewed with airset caster first. Overexertion from strenuous movement or load, [...] 08/07/2017 Assessment & Plan (08/17/2024 11:11 AM SKETCH MAKER): Chronic, worsening. 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 Arthralgia of shoulder [...] Team Description 05/20/2025 Telephone [facility] [address] [place] [address] Alireza Clark MD [employer] 05/18/2025 Telephone [facility] [address] [place] [address] Floor [address] [place] [address] Shannan Smith RMA Scheduling Testing/Treatment 05/10/2025 1:00 PM CDT Lab [facility] [address] [place] [address] Floor [address] [place] [address] 05/10/2025 Documentation [facility] [address] [place] [address] Floor [address] [place] [address] Ayesha Vizcaino Brenna 04/30/2025 Telephone [facility] [address] [place] [address] Floor [address] [place] [address] Ayesha Vizcaino, Brenna 04/30/2025 Orders Only [facility] [address] [place] [address] Floor [address] [place] [address] Corey Lowery MD Memory loss (Primary Dx) 04/30/2025 Documentation [facility] [address] [facility] 6th [place] [address] [place] [address] Corey Lowery MD 04/29/2025 Documentation [facility] [address] [facility] 6th [place] [address] [place] [address] Corey Lowery MD 04/19/2025 Telephone [facility] First Floor [address] [place] [address] Shannan Smith Ofelia, RMA Test Results 04/19/2025 Documentation [facility] Advanced Medicine 6th [place] [address] [place] [address] Corey Lowery MD 04/15/2025 10:15 AM CDT Office Visit [facility] [address] [facility] [address] [place] [address] Alireza Clark MD Type 2 diabetes mellitus with hyperglycemia, with long-term current use of insulin (HCC) (Primary Dx) 04/14/2025 Orders Only [facility] [address] [place] [address] [place] [address] [place] [address] Corey Lowery MD Memory loss (Primary Dx) 04/13/2025 Documentation [facility] Floor [address] [place] [address] Min Noel LCSW Care Consultation (See note. PEACE Pace) 04/13/2025 Telephone [facility] [address] [place] [address] Floor [address] [place] [address] Min Noel LCSW 04/12/2025 12:56 PM CDT - 04/12/2025 11:59 PM CDT Hospital Encounter [facility] [address] [place] [address] Corey Lowery MD Encounter for medical screening examination Discharge Disposition: Discharge to home or self care 04/12/2025 Documentation [facility] Medicine 6th [place] [address] [place] [address] Corey Lowery MD 04/06/2025 Orders Only [facility] [address] [facility] [address] [place] [address] Juany Teague MD 04/06/2025 Telephone [facility] [address] [facility] First Floor [address] [place] [address] Ayesha Vizcaino RMA 04/06/2025 Orders Only [facility] [address] [facility] 6th Floor [address] [place] [address] Corey Lowery MD Encounter for medical screening examination (Primary Dx) 04/05/2025 Telephone [facility] [address] [facility] First Floor [address] [place] [address] Min Noel LCSW 04/02/2025 10:00 AM CDT Office Visit [facility] [place] [address] [facility] 6th [place] [address] [place] [address] Corey Lowery MD Memory loss 04/02/2025 Telephone [facility] 4th Floor [address] [place] [address] Tammy Reynolds Communication 03/31/2025 Telephone [facility] [place] [address] [facility] 6th [place] [address] [place] [address] Yevgeniy Odell 03/29/2025 Telephone [facility] [address] [facility] [address] [place] [address] Nestor Bruno 03/26/2025 6:50 AM CDT [address] [address] Memory loss; Encounter for medical screening examination 03/25/2025 3:15 PM CDT Office Visit [facility] [address] [facility] [address] [place] [address] Juany Teague MD Memory loss (Primary Dx); [...] Chronic pain disorder Arthritis Psoriatic Diabetes mellitus Hypertension Psoriasis Psoriatic arthritis (HCC) PONV (postoperative [...] from doctor or pharmacy Never 01/27/2025 [facility] Utilities Answer Date Recorded In the past 12 months has th e COCC, gas, oil, or water Vitrina threatened to shut off services in your [...] How often do you attend chur or baptism services? More than 4 times per year [...] staff should administer the PHQ-9) 0 08/17/2024 [facility] [...] in the past 12 m [facility], were you homeless or living in a skilled nursing (including now)? No 01/11/2025 Personal Safety Answer Date Recorded Have you ever been in or are you currently in a harmful physical or emotional relationship or is someone making you feel afraid or unsafe? 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 Medical Devices Implanted Type Area Tobacco Scrap Sifter Device Identifier Shelf Expiration Date Model / Serial / Lot Medtronic Rv Lead 4011-58-09/02/18 89 Implanted:09/1988 (Quantity not on file) Lead Heart Medtronic Cardiac Rhythm Mgmt 4011-58 / [id number] / [employer] Active Fixation Steroid Eluting Latex Free Sterile Right Atrium Ventricle Ultipace 58cm Mwm8350/58 - [id number] - [id number] Implanted:Qty: 1 on 01/08/2025 by Ty Lamb MD at [facility] Lead Left: Chest [employer] [id number] 09/01/2027 [id number]/58 / [id number] / [employer] Active Fixation Steroid Eluting Latex Free Sterile Right Atrium Ventricle Ultipace 52cm Mqq5688/52 - [id number] - [id number] Implanted:Qty: 1 on 01/08/2025 by Ty Lamb MD at [facility] Lead Left: Chest [employer] [id number] 10/31/2027 [id number]/52 / [id number] / [employer] Assurity Mri 66x25yv 2 Chamber Is-1 Connector Thk6mm Pacemaker Xr9279 - [id number] - [id number] Implanted:Qty: 1 on 01/08/2025 by Ty Lamb MD at [facility] Pacemaker Left: Chest [employer] [id number] 06/01/2026 [id number] / [id number] / [employer] Liyah Ams 700 Kit Accessory Penile Prosthesis [id number] - [id number] Implanted:Qty: 1 on 06/18/2024 by Jose David Betancourt MD at [facility] N/A: Groin [employer] Liyah [id number] 04/08/2029 [id number] / / [id number] [employer] Liyah Ams Spectra 12/14mm .5cm Cylinder Concealable Malleable Rear Tip [id number] - [id number] Implanted:Qty: 1 on 06/18/2024 by Jose David Betancourt MD at [facility] N/A: Penis [employer] Liyah [id number] 02/15/2029 [id number] / / [id number] [employer] Liyah Ams 700 Preconnect 1 Ms Pump 2 Cylinder Penoscrotal Prosthesis 55526616-03 - [id number] Implanted:Qty: 1 on 06/18/2024 by Jose David Betancourt MD at [facility] N/A: Penis [employer] Liyah [id number] 10/13/2025 20622898-2 0 / / [id number] enVista Liyah Conceal Low Profile [place] 100ml Prosthesis Inhibizone Sterile Latex Free 399019-80 - [id number] Implanted:Qty: 1 on 06/18/2024 by Jose David Betancourt MD at [facility] Left: Pelvis [employer]ista Liyah [id number] 04/22/2026 779577-68 / / [id number] Procedures Procedure Name Priority Date/Time Associated Diagnosis [...] POCT glucose (04/15/2025 10:18 AM CDT) Pathologist [facility] Glucose Blood, POC 367 Normal Fasting 70 [...] no abnormal contrast enhancement. Procedure Note Sadi rPatt III, MD PhD - 04/12/2025 EXAMINATION: CT [...] last revised on 2020. Testing performed by: [facility], [address] [place] [address]., [address] Blood 03/26/2025 6:55 AM CDT 03/26/2025 9:56 AM CDT Juany Teague MD LAB BLOOD ORDERABLES F inal Result [facility] ([place]) [address] [place] [address] [place] [address] * HIV 1/2 Antibody plus p24 Antigen Blood (03/26/2025 6:55 AM CDT) Pathologist [facility] HIV 1/2 ab + p24 ag Nonreactive Nonreactive Comment: Nonreactive for HIV-1 antigen and HIV-1/HIV-2 antibodies. No laboratory evidence of HIV infection. If acute HIV infection is suspected, consider testing for HIV-1 RNA. Testing performed by: [facility], [address] [place] [address], [place]., [address] Blood 03/26/2025 6:55 AM CDT 03/26/2025 9:20 AM CDT Juany Teague MD LAB MICROBIOLOGY - GEN ERAL ORDERABLES Final Result [facility] ([place]) [address] [facility] [place] [address] * Methylmalonic acid, serum (03/26/2025 6:55 AM CDT) Pathologist [facility] MMA 0.13 <=0.40 nmol/mL [facility] ref Lab Comment: ADDITIONAL INFORMATION This test was developed and its performance characteristics determined by [facility] in a manner consistent with CLIA requirements. This test has not been cleared or approved by the U.S. Food and Drug Administration. Test Performed by: [address] [address] [employer]: Ladonna Roberts Ph.D.; CLIA# [id number] Blood 03/26/2025 6:55 AM CDT 03/26/2025 7:09 AM CDT Juany Teague MD LAB BLOOD ORDERABLES F inal Result [facility] [place]) [address] [place] [address] [place] [address] [facility] ref Lab * RPR Blood (03/26/2025 6:55 AM CDT) [facility] RPR Nonreactive Nonreactive Comment:Testing performed by : [facility], [address] [place] [address], [address] Blood 03/26/2025 6:55 AM CDT 03/26/2025 9:20 AM CDT Juany Teague MD LAB MICROBIOLOGY - GEN ERAL ORDERABLES Final Result [facility] ([place]) [address] [facility] [place] [address] * Vitamin B1 (03/26/2025 6:55 AM CDT) [facility] Thiamine (Vit B1) 107 70 - 180 nmol/L [facility] ref Lab Comment: ADDITIONAL INFORMATION This test was developed and its performance characteristics determined by [facility] in a manner consistent with CLIA requirements. This test has not been cleared or approved by the U.S. Food and Drug Administration. Test Performed by: [facility] [place] [address] [employer]: Ladonna Roberts Ph.D.; CLIA# [id number] Blood 03/26/2025 6:55 AM CDT 03/26/2025 7:09 AM CDT Juany Teague MD LAB BLOOD ORDERABLES F inal Result Performing Organization Address City/[facility]/ZIP Co de Phone Number [facility] ([place]) [address] [facility] [place] [address] [facility] ref Lab * Vitamin B6 (03/26/2025 6:55 AM CDT) [facility] Pyridoxal phosphate (Vit B6) 5 5 - 50 mcg/L [facility] ref Lab Comment: ADDITIONAL INFORMATION This test was developed and its performance characteristics determined by [facility] in a manner consistent with CLIA requirements. This test has not been cleared or approved by the U.S. Food and Drug Administration. Test Performed by: [facility] [place] [id number] [employer]: Ladonna Roberts Ph.D.; CLIA# [id number] Blood 03/26/2025 6:55 AM CDT 03/26/2025 7:09 AM CDT Juany Teague MD LAB BLOOD ORDERABLES F inal Result [facility] ([place]) [address] [facility] [place] [employer] [place] [address] [facility]rena ref Lab * Homocysteine (03/26/2025 6:55 AM CDT) Pathologist [facility] Homocysteine 10.0 7.3 - 16.3 nmol/mL [facility] Lab Comment: ADDITIONAL INFORMATION Liquid Chromatography-Tandem Mass Spectrometry (LC-MS/MS) This test was developed and its performance characteristics determined by [facility] in a manner consistent with CLIA requirements. This test has not been cleared or approved by the U.S. Food and Drug Administration. Test Performed by: [place] [address] [employer]: Ladonna Roberts Ph.D.; CLIA# [id number] Blood 03/26/2025 6:55 AM CDT 03/26/2025 7:09 AM CDT Juany Teague MD LAB BLOOD ORDERABLES F inal Result Performing Organization Address City/[facility]/ZIP Co de Phone Number [facility] ([place]) [address] [facility] [place] [employer] [place] [address] [facility] * Folate (03/26/2025 6:55 AM CDT) Pathologist [facility] Folic acid 14.5 >=5.0 ng/mL [facility] ([place]) Blood 03/26/2025 6:55 AM CDT 03/26/2025 7:10 AM CDT Juany Teague MD LAB BLOOD ORDERABLES F inal Result [facility] ([place]) [address] [facility] [place] [employer] [place] [address] * Vitamin B12 (03/26/2025 6:55 AM CDT) Pathologist [facility] Vitamin B12 634 230 - 1,250 pg/mL [facility] ([place]) Blood 03/26/2025 6:55 AM CDT 03/26/2025 7:10 AM CDT us Juany Teague MD LAB BLOOD ORDERABLES F inal Result [facility] ([place]) [address] [facility] Department [place] [address] * eGFR (01/11/2025 9:11 AM CDT) eGFR [...] LAB BLOOD ORDERABLES Final R esult JEFF [address] [address] Department [place] [address] * (ABNORMAL) Albumin Creatinine Ratio, Urine (04/01/2024 [...] MD LAB URINE ORDERABLES Final Resul t [facility] [address] [address] Department of Laboratories [place], [place] [id number] * (ABNORMAL) Lipid panel (04/01/2024 11:09 AM [...] last revised on 2018. Chol/HDL ratio 4 JFEF BRODERICK Blood 04/01/2024 11:0 9 AM CDT 04/01/2024 5:29 PM CDT us Alireza Clark MD LAB BLOOD ORDERABLES Final Resul t JEFF BRODERICK [address] Department [place] [address] from Last 3 Months or Most Recently Relevant to Health Maintenance Insurance MEDICARE FOR LIFE FOR LIFE [facility] MEDICARE ADVANTAGE Gravity [facility] MEDICARE ADVANTAGE Advance Directives For more information, please contact: [phone] * Full Code (Latest Code Status on File) Date Activated Date Inactivated Comments 01/07/2025 1:12 PM 01/11/2025 11:13 PM * Full Code Date Activated Date Inactivated Comments 12/14/2024 5:54 PM 12/21/2024 8:28 PM * Full Code Date Activated Date Inactivated Comments 06/18/2024 3:52 PM 06/19/2024 10:57 PM * Full Code Date Activated Date Inactivated Comments 02/11/2024 3:49 PM 02/12/2024 6:22 PM Care Teams Development Disability Specialist Relationship Specialty Start Date End Date Maryann Jiménez DO PCP - General Family Medicine 07/03/22 Jose David Betancourt MD [address] [address] Consulting Physician Urology 06/19/24 Ty Lamb MD [address] [facility] [address] [place] [address] Surgeon Cardiothoracic Surgery 12/21/24 Jatinder Jones MD [address] [place] [address] Consulting Physician Cardiology 12/21/24 Miscellaneous, Not In File 12/21/24
--- OUTSIDE RECORDS SUMMARY | 2025-06-08 07:29 | XMS_ITS | Patient Health Record ---
Author Organization [facility] [employer] Address [address] [facility] [address] [place] [address] Support Name Relationship Address Phone SHAWN SHULTZ Guarantor Unknown Unavailable Reason For Referral No Information Plan Of Treatment No Information
--- OUTSIDE RECORDS SUMMARY | 2025-06-08 07:29 | XMS_ITS | Clinical Summary ---
Author Organization [facility] Address [address] [place] [address] Care Team Providers Care Motel Keeper Name Role Phone Maryann Jiménez DO Primary Care Provider [phone] Source Comments [facility],non-owned Affiliates and Associated Physician Practices is amultiple site organization consisting of ambulatory clinics and hospital sitesin [place], [place], [place] and [place]. This disclosure is being madepursuant to the Care Everywhere program and may not contain all information available regarding this patient. 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 Gender Identity Not on file Sexual Orientation Not on file Last Filed Vital Signs Vital Sign Reading Time Taken Comments Blood Pressure 116/62 12/20/2020 11:23 AM CDT Pulse 72 12/20/2020 11:23 AM CDT Temperature 36.3 C (97.3 F) 12/20/2020 11:23 AM CDT Respiratory Rate 16 05/14/2017 2:25 PM CDT Oxygen Saturation 95% 09/28/2014 12:31 PM LABORATORY 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 Inhaled Oxygen Concentration - - Weight 90.7 [...] 46 U/L [facility] Comment: Test Performed at: [employer] [place] [address] [place] [address] IVY DERAS DO,MPH Blood BLOOD SPECIMEN / Unknown 12/21/2020 11:20 AM CDT 12/21/2020 11:21 AM CDT Nico Jones MD LAB - CHEMISTRY ORDERABLES F inal Result [facility] [address] [place] [address] from Last 3 Months or Most Recently Relevant to Health Maintenance Insurance [employer] MEDICARE [facility] MANAGED MEDICARE ADV MEDICARE [facility] MANAGED MEDICARE ADV [facility] MANAGED MEDICARE ADV [facility] MANAGED MEDICARE ADV Care Teams Motel Keeper Relationship Specialty Start Date End Date Maryann Jiménez DO [address] [facility] [address] [place] [address] PCP - General 09/07/22
--- OUTSIDE RECORDS SUMMARY | 2025-06-08 07:29 | XMS_ITS | Encounter Summary ---
Author Organization [facility] Healthcare Address [address] [place] [address] Care Team Providers Care Hand Picker Name Role Phone Maryann Jiménez DO Primary Care Provider + Jose David Betancourt MD Unavailable [phone] Ty Lamb MD Unavailable [phone] Jatinder Jones MD Unavailable [phone] Miscellaneous, Not In File Unavailable Unava ilable Encounter Details Date Type Department Care Team (Late st Contact Info) Description 01/05/2025 [facility] Post Discharge Follow up phone call [place] [id number] [place] [address] Ariella Larsen Social History Tobacco [...] materials from doctor or pharmacy Never 12/23/2024 [facility] Utilities Answer Date Recorded In [...] should administer the PHQ-9) 0 08/17/2024 [facility] of Occupat ional Health - Occupational Stress [...] on file 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 Gender Identity Male 01/23/2020 12:25 AM CDT [...] documented as of this encounter Care Teams Hand Picker Relationship Specialty Start Date End Date Maryann Jiménez DO PCP - General Family Medicine 07/03/22 Jose David Betancourt MD [address] [place] [address] Consulting Physician Urology 06/19/24 Ty Lamb MD [address] [place] [address] Surgeon Cardiothoracic Surgery 12/21/24 Jatinder Jones MD [address] [facility] [address] [facility] [address] [place] [address] Consulting Physician Cardiology 12/21/24 Miscellaneous, Not In File 12/21/24 documented as of this encounter
--- OUTSIDE RECORDS SUMMARY | 2025-06-08 07:29 | XMS_ITS | Encounter Summary ---
Author Organization [facility] Healthcare Address [address] [place] [address] Care Team Providers Care Manager Developmental Name Role Phone Maryann Jiménez DO Primary Care Provider + Jose David Betancourt MD Unavailable [phone] Ty Lamb MD Unavailable [phone] Jatinder Jones MD Unavailable [phone] Miscellaneous, Not In File Unavailable Unava ilable Encounter Details Date Type Department Care Team (Late st Contact Info) Description 11/16/2024 Orders Only [facility] [place] [address] [place] [address] Scanning, Provider Social History Tobacco Use Types Packs/Day Years Used Date Smoking Tobacco: Former Cigarettes Q uit: 04/28/1983 Smokeless Tobacco: Never Comments:quite smoking 1982 Alcohol Use Standard Drinks/Week Comments Yes 0 (1 standard drink = 0.6 oz pur e alcohol) [facility] Utilities Answer Date Recorded In the past 12 months has [employer], gas, oil, or water [employer] threatened to shut off services in your home? No 02/12/2024 Social Connection and Isolation Panel Answer Date Recorded In a typical week, how many times do you talk on the phone with family, friends, or neighbors? More than three times a week 02/12/2024 How often do you get togethe r with friends or relatives? Twice a week 02/12/2024 How often do you attend [facility] or scientology services? 1 to 4 times per year [...] any time in the past 12 m [facility], were you homeless or living in a jail (including now)? No 02/12/2024 Personal Safety Answer Date Recorded Have you ever been in or are you currently in a harmful physical or emotional relationship or is someone making you feel afraid or unsafe? 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 Gender Identity Male 01/23/2020 12:25 AM [...] as of this encounter Care Teams Manager Developmental Relationship Specialty Start Date End Date Maryann Jiménez DO PCP - General Family Medicine 07/03/22 Jose David Betancourt MD [address] [address] Consulting Physician Urology 06/19/24 Ty Lamb MD [address] [facility] [address] [place] [address] Surgeon Cardiothoracic Surgery 12/21/24 Jatinder Jones MD [address] [place] [address] Consulting Physician Cardiology 12/21/24 Miscellaneous, Not In File 12/21/24 documented as of this encounter
--- OUTSIDE RECORDS SUMMARY | 2025-06-08 07:29 | XMS_ITS | Encounter Summary ---
Author Organization [facility] Healthcare Address [address] [place] [address] Care Team Providers Care Edm Operator Name Role Phone Maryann Jiménez DO Primary Care Provider + Jose David Betancourt MD Unavailable [phone] Ty Lamb MD Unavailable [phone] Jatinder Jones MD Unavailable [phone] Miscellaneous, Not In File Unavailable Unava ilable Encounter Details Date Type Department Care Team (Late st Contact Info) Description 01/25/2025 [facility] Post Discharge Follow up phone call [place] [id number] [place] [address] Ariella Larsen Social History Tobacco [...] doctor or pharmacy Never 01/27/2025 [facility] Utilities Answer Date Recorded In the [...] How often do you attend chur or confucianism services? 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 Gender Identity Male 01/23/2020 12:25 AM CDT [...] on filedocumented in this encounter Care Teams Edm Operator Relationship Specialty Start Date End Date Maryann Jiménez DO PCP - General Family Medicine 07/03/22 Jose David Betancourt MD [address] [place] [address] Consulting Physician Urology 06/19/24 Ty Lamb MD [address] [place] [address] Surgeon Cardiothoracic Surgery 12/21/24 Jatinder Jones MD [address] [place] [address] Consulting Physician Cardiology 12/21/24 Miscellaneous, Not In File 12/21/24 documented as of this encounter
--- OUTSIDE RECORDS SUMMARY | 2025-06-08 07:29 | XMS_ITS | Encounter Summary ---
Author Organization [facility] Healthcare Address [address] [place] [address] Care Team Providers Care Art Conservator Name Role Phone Maryann Jiménez DO Primary Care Provider + Jose David Betancourt MD Unavailable [phone] Ty Lamb MD Unavailable [phone] Jatinder Jones MD Unavailable [phone] Miscellaneous, Not In File Unavailable Unava ilable Encounter Details Date Type Department Care Team (Late st Contact Info) Description 01/05/2025 [facility] Post Discharge Follow up phone call [place] [id number] [place] [address] Ariella Larsen Social History Tobacco [...] often do you attend chur ch or mandaeism services? 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 Gender Identity Male 01/23/2020 12:25 AM CDT [...] documented as of this encounter Care Teams Art Conservator Relationship Specialty Start Date End Date Maryann Jiménez DO PCP - General Family Medicine 07/03/22 Jose David Betancourt MD [address] [place] [address] Consulting Physician Urology 06/19/24 Ty Lamb MD [address] [place] [address] Surgeon Cardiothoracic Surgery 12/21/24 Jatinder Jones MD [address] [facility] [address] [facility] [address] [place] [address] Consulting Physician Cardiology 12/21/24 Miscellaneous, Not In File 12/21/24 documented as of this encounter
--- OUTSIDE RECORDS SUMMARY | 2025-06-08 07:30 | XMS_ITS | Patient Health Record ---
Author Organization [facility] Address [address] [place] [address] Care Team Providers Care Associate Principal Name Role Phone Jamison Dsouza MD Primary Care Provider [phone] ALLERGIES Allergen (clinical drug ingredient) Drug/Non Drug [...] confirmed Strain of long head of biceps (252730482) Problem Overexertion from strenuous movement or load, initial encounter (X50.0XXA) 3 Active confirmed Overexertion, strenuous movements and vibration (event) (881295980) Problem Unspecified injury of left shoulder and upper arm, initial encounter (S49.92XA) 2 Active confirmed Injury of shoulder and upper arm (316416295) Problem Impingement syndrome of left shoulder (M75.42) 2 Active confirmed Impingement syndrome of left shoulder region (667857523996870) Problem Primary osteoarthritis, left shoulder (M19.012) 2 Active confirmed Localized, primary osteoarthritis of the shoulder region (137345460) Problem Unspecified fall, sequela (W19.XXXS) 2 Active confirmed Fall () PLAN OF TREATMENT Pending Test Test Name Order Date CT arthrogram 02/13/2023 Intra-articular Shoulder Injection 03/07 Insurance Providers Payer Name Payer Address Payer Phone Subscriber Number Group Number Insured Name Patient Relationship to Insured Coverage Start Date Coverage End Date Medicare [address] [place] [address] [id number] Ced Mccracken Self - patient is the insured for [employer] [address] [place] [address] [id number] Ced Mccracken Self - patient is the insured MEDICAL (GENERAL) HISTORY Medical History History ICD Code diabetes mellitus hypertension heart disease thyroid disease
--- NOTE | 2025-06-08 07:33 | ECHO_ITS ---
Patient Info Name: Ced Mccracken Age: 74 years : 1950 Gender: Male Ht: 67 in Wt: 210 lbs BSA: 2.16 m2 HR: 77 bpm BP: 172 / 84 mmHg Heart Rhythm: Sinus Rhythm Technical Quality: Fair Exam Date: 06/08/2025 7:48 AM Patient Status: O Admit Date: 06/08/2025 Exam Type: CA echo doppler color flow Complete two-dimensional, color flow and Doppler transthoracic echocardiogram is performed. Cloth Examiner: Izabel Abbott Attending Provider: Winston Wakefield DO Summary 1. Complete two-dimensional, color flow and Doppler transthoracic echocardiogram is performed. 2. Left ventricular chamber dimension is normal. 3. Left ventricular systolic function is normal, estimated at 65-70. 4. The left ventricular diastolic function is grade I diastolic dysfunction. 5. E/e' 12 is mildly elevated. 6. Linear artifact in right ventricle suggestive of catheter(s), pacemaker lead(s), or ICD lead(s). 7. Left atrial chamber dimension is mildly enlarged. 8. Linear artifact in the right atrium suggestive of catheter(s), pacemaker lead(s), or ICD lead(s). 9. There is mild aortic valve sclerosis. 10. There is trace mitral valve regurgitation. 11. There is trace tricuspid valve regurgitation. 12. No pulmonary hypertension, estimated pulmonary arterial systolic pressure is 37 mmHg. 13. There is trace pulmonic regurgitation. Left Ventricle E/e' 12 is mildly elevated. Left ventricular chamber dimension is normal. Left ventricular systolic function is normal, estimated at 65-70. The left ventricular diastolic function is grade I diastolic dysfunction. Right Ventricle Right ventricular chamber dimension is normal. Right ventricular systolic function is normal and with normal TAPSE 2.1 cm. Linear artifact in right ventricle suggestive of catheter(s), pacemaker lead(s), or ICD lead(s). Left Atria Left atrial chamber dimension is mildly enlarged. Right Atria Right atrial chamber dimension is normal. Linear artifact in the right atrium suggestive of catheter(s), pacemaker lead(s), or ICD lead(s). Aortic Valve The aortic valve is trileaflet. There is mild aortic valve sclerosis. There is no aortic valve stenosis. There is no aortic valve regurgitation. Pulmonic Valve There is trace pulmonic regurgitation. Mitral Valve There is no mitral valve stenosis. There is trace mitral valve regurgitation. Tricuspid Valve There is trace tricuspid valve regurgitation. No pulmonary hypertension, estimated pulmonary arterial systolic pressure is 37 mmHg. Pericardium/Pleural There is no pericardial effusion. Inferior Vena Cava Normal inferior vena cava with >50% collapse upon inspiration consistent with normal right atrial pressure, 5 mmHg. Aorta The aortic root size at the sinus of Valsalva is normal. Left Ventricular Outflow Tract Name Value Normal LVOT 2D LVOT Diameter 2.3 cm LVOT Doppler LVOT Peak Velocity 73 cm/s LVOT Peak Gradient 2 mmHg LVOT Mean Gradient 1 mmHg LVOT VTI 13 cm LVOT VTI/AV VTI Ratio 0.6 LVOT Stroke Volume 55 ml LVOT CO 4.1 l/min LVOT CI 1.9 l/min/m2 Pulmonic Valve Name Value Normal RVOT Doppler RVOT Peak Velocity 86 cm/s RVOT Peak Gradient 3 mmHg PV Doppler PV Peak Velocity 100 cm/s PV Peak Gradient 4 mmHg Mitral Valve Name Value Normal MV Diastolic Function MV E Peak Velocity 84 cm/s MV A Peak Velocity 115 cm/s MV E/A 0.7 MV Decel Time (PW) 175 ms MV Annular TDI MV E/e' (Septal) 18.6 MV E/e' (Lateral) 9.7 MV E/e' (Average) 14.2 Tricuspid Valve Name Value Normal TV Regurgitation Doppler TR Peak Velocity 283 cm/s TR Peak Gradient 32 mmHg Estimated PAP/RSVP RA Pressure 5 mmHg <=5 PA Systolic Pressure 37 mmHg <36 RV Systolic Pressure 37 mmHg <36 TV Annular TDI TV Lateral Missy s' Velocity 11.4 cm/s >=9.5 Aorta Name Value Normal Ascending Aorta Ao Root Diameter (MM) 3.4 cm Ao Root Diam Index (MM) 1.6 cm/m2 Aortic Valve Name Value Normal AV Doppler AV Peak Velocity 116 cm/s AV Peak Gradient 5 mmHg AV Mean Gradient 3 mmHg AV VTI 22 cm AV Area (Cont Eq VTI) 2.5 cm2 >=3.0 AV Area (Cont Eq Jn) 2.6 cm2 AV DI (Jn) 0.63 AV Regurgitation 2D LVOT Area 4.2 cm2 Ventricles Name Value Normal LV Dimensions 2D/MM IVS Diastolic Thickness (2D) 1.1 cm 0.6-1.0 LVID Diastole (2D) 4.1 cm 4.2-5.8 LVIW Diastolic Thickness (2D) 1.1 cm 0.6-1.0 LVID Systole (2D) 2.8 cm 2.5-4.0 LVOT Diameter 2.3 cm LV Mass (2D Cubed) 152.32 g 88.00-224.00 LV Mass Index (2D Cubed) 71 g/m2 49-115 Relative Wall Thickness (2D) 0.55 <=0.42 LV Fractional Shortening/Ejection Fraction 2D/MM LV Fractional Shortening (2D) 32 % 25-43 LV EF (2D Teichholz) 61 % LV Diastolic Volume (4C MOD) 98 ml LV EF (4C MOD) 66 % LV Diastolic Volume (2C MOD) 128 ml LV EF (2C MOD) 69 % LV Diastolic Volume (BP MOD) 119 ml 62-150 LV Diastolic Volume Index (BP MOD) 55 ml/m2 34-74 LV Systolic Volume (BP MOD) 38 ml 21-61 LV Systolic Volume Index (BP MOD) 18 ml/m2 11-31 LV EF (BP MOD) 68 % 52-72 LV Diastolic Length (4C) 7.7 cm LV Systolic Length (4C) 6.2 cm LV Stroke Volume (4C MOD) 65 ml Atria Name Value Normal LA Dimensions LA Dimension (MM) 3.5 cm 3.0-4.0 LA Volume (4C A-L) 60 ml LA Volume (BP A-L) 69 ml RA Dimensions RA Area (4C) 17.0 cm2 <=18.0 Report Signatures
== END 2025-06-08 07:24 | disposition home or self-care (01) ==
LOC: ANHCARD 07:26
PROVIDERS: PCP Family Medicine; Visit Provider Internal Medicine Cardiovascular Disease
DX: I31.39 Other pericardial effusion (noninflammatory) (principal)
CPT/HCPCS: 93306

== ENCOUNTER 2025-08-04 15:00 | Outpatient (RCR) | payer MEDICARE, OTHER, SELFPAY | END 2025-08-04 23:59 | disposition home or self-care (01) | LOC: ANHCPREHAB 15:00 | PROVIDERS: PCP Family Medicine; Visit Provider Internal Medicine Cardiovascular Disease | DX: Z95.1 Presence of aortocoronary bypass graft (principal) | CPT/HCPCS: 93798 ==

== ENCOUNTER 2025-08-12 15:00 | Outpatient (RCR) | payer MEDICARE, OTHER, SELFPAY | END 2025-08-12 15:16 | disposition home or self-care (01) | LOC: ANHCPREHAB 15:00 | PROVIDERS: PCP Family Medicine; Visit Provider Internal Medicine Cardiovascular Disease | DX: Z95.1 Presence of aortocoronary bypass graft (principal) | CPT/HCPCS: 93798 ==